=== PATIENT | female | born 1985 | race Caucasian/White ===

== ENCOUNTER 2024-06-09 16:44 | Emergency (ER) | payer MEDICAID, SELFPAY ==
[2024-06-09 16:51] VITALS: BP 120/85; PULSE 82; TEMP 36.6; O2SAT 98; BMI 29.3
--- OUTSIDE RECORDS SUMMARY | 2024-06-09 16:55 | XMS_ITS | CCD ---
Author Organization [facility] Care Team Providers Care Teachers' Assistant Name Role Phone Parisa Babcock Unavailable Unavailable ANN KULKARNI Unavailable Unavailable ANN KULKARNI Unavailable Unavailable Samy, Flaquito E Unavailable Unavailable GLO BABCOCK Unavailable Unavailable GLO BABCOCK Unavailable Unavailable Beni Penaloza V Unavailable Unavailable Samy Flaquito E Unavailable Unavailable Jose Hirsch Unavailable Unavaila Jose Sanders Unavailable Unavaila sanjuanita Pablo Flaquito E Unavailable Unavailable [employer] Unavailable Unavailable Samy, Flaquito E Unavailable Unavailable Samy, Flaquito E Unavailable Unavailable SHERI IVEY Unavailable Unavailable SIS TORRES Unavailable Unavailable Lisa Johns Unavailable Isabel Redmond Unavailable Brandon Wing Unavailable Fred Goldsmith Unavailable DEJAH Johns Primary Care Provider DEJAH Johns Attending Provider MD Pablo Phipps Attending Provider [phone] DO Janina Soria Attending Provider DO Nikhil Cristina Emergency Provider DEJAH Johns Primary Care Provider DO Janina Soria Attending Provider [phone] DO Nikhil Cristina Emergency Provider [phone] DEJAH Johns Attending Provider [phone] MD Brandon Wing Other Provider DEJAH Johns Primary Care Provider DEJAH Johns Attending Provider [phone] HUDSON LISA Primary Care Unavailable DIAB ., ERICA Admitting Unavailable DIAB ., ERICA Attending Unavailable DIAB ., ERICA Consulting Unavailable KARASIK, FADUMO Admitting Unavailable KARASIK, FADUMO Attending Unavailable KAPDANIEL LISA Primary Care Unavailable KARASIK, FADUMO Consulting Unavailable MAYA, DR KEITH Lackey Consulting Unavailable KARASIK, FADUMO Admitting Unavailable KARASIK, FADUMO Attending Unavailable NADEREDR LD Lackey Primary Care Unavailable KARASIK, FADUMO Consulting Unavailable MD Shahid Ritter Emergency Provider MD Marcel Boo Referring Provider Unavailable Primary Care Provider Unavailmorenita Boo II, Dr. Marcel Tejeda Attending Unavailable [facility] Attending Provider Edward Hernandez [facility]available [facility] Provider AMISHA Mejia Emergency Provider DO Nikhil Cristina Emergency Provider PROVIDER, UNKNOWN Admitting Unavailable PROVIDER, UNKNOWN Attending Unavailable CHANCE VERA Attending Unavailable PROVIDER, UNKNOWN Admitting Unavailable Andreas [facility] Primary Care Provider AMISHA Mejia Emergency Provider DO Nikhil Cristina Emergency Provider [phone] DO Bairon Duran Attending Provider [phone] Andreas [facility] Primary Care Provider DO Curt Novoa Emergency Provider [phone] Arpan, ONLINE EDUCATION MANAGER-IKE Benitez E Emergency Provider Unavailable Primary Care Provider Unavailmorenita Johns [facility] Primary Care Provider AMISHA Mejia Emergency Provider BAIRON DURAN Attending Unavailable LD RESENDEZ Referring Unavailable BAIRON DURAN Attending Unavailable BAIRON DURAN Attending Unavailable LD RESENDEZ Referring Unavailable BAIRON DURAN Attending Unavailable BAIRON DURAN Attending Unavailable DEJAH Johns [facility] Primary Care Provider MD Jennifer Art Emergency Provider DEJAH Johns [facility] Primary Care Provider Bullimore, ONLINE EDUCATION MANAGER-BC Eli E Emergency Provider [phone] NO FAMILY, PHYSICIAN Primary Care Provider Unava ilable Bullimore ONLINE EDUCATION MANAGER-BC, Eli E Emergency Provider [phone] NO FAMILY, PHYSICIAN Primary Care Provider Unava ilable Unavailable Primary Care Provider Unavailabl e NO FAMILY, PHYSICIAN Primary Care Provider Unava ilable Paola FREEMAN, Florencio Attending Provider [phone] NO FAMILY, PHYSICIAN Primary Care Unavailable Bullimore, Eli E Admitting Unavailable Bullimore, Eli E Attending Unavailable [facility] Primary Care Unavailable Verae, Carissa N Admitting Unavailable Safgeovannye, Carissa N Attending Unavailable [facility] Primary Care Unavailable Jennifer Art Admitting Unavailable Jennifer Art Attending Unavailable Nikhil Cristina Admitting Unavailable Nikhil Cristina Attending Unavailable [facility] Primary Care Unavailable Curt Novoa Attending Unavailable [facility] Primary Care Unavailable Curt Novoa Admitting Unavailable Bullimore, Eli E Admitting Unavailable Bullimore, Eli E Attending Unavailable [facility] Primary Care Unavailable NO FAMILY, PHYSICIAN Primary Care Unavailable Radatz Jr, Edward Admitting Unavailable Radatz Jr, Edward Attending Unavailable [facility]available Bairon Duran Admitting Unavailable Bairon Duran Attending Unavailable [facility]available Bairon Duran Admitting Unavailable Bairon Duran Attending Unavailable Sheri Ivey MD Primary Care Provider [phone] ALEM CUADRA Referring Unavailable ANH GELLER Attending Unavailable EMILEE ROCA Attending Unavailable RAFY GOLDBERG Referring Unavailable EMILEE ROCA Attending Unavailable EMILEE ROCA Referring Unavailable OSIEL, OSIEL E Attending Unavailable JOSEFA FALK Referring Unavailable OSIEL, OSIEL E Referring Unavailable ALEJANDRA CABRERA Attending Unavailable PAM, CASSANDRA ABRAMS Attending Unavailable WILMAN, ALEM Attending Unavailable WILMAN, ALEM Referring Unavailable PAM, CASSANDRA ABRAMS Referring Unavailable RAFY GOLDBERG Attending Unavailable WILMAN, ALEM Attending Unavailable WILMAN, ALEM Referring Unavailable JOSEFA FALK Attending Unavailable WILMAN, ALEM Referring Unavailable EMILEE ROCA Referring Unavailable TAMANNA BARRY Attending Unavailable RAFY GOLDBERG Referring Unavailable Allergies Allergy Classification Reported Allergen(s) Allergy Type Date of Onset Reaction(s) Facility Latex (2 sources) Latex Substance Allergy 08-31-19 [facility] nickel (2 sources) nickel Drug Allergy 08-31-19 17 [facility] Opioid Agonists (2 sources) oxyCODONE Drug Allergy 10-16-19 21 [facility] silk allergenic extract (2 sources) silk allergenic extract Drug Allergy 08-31-19 Other: See Comments [facility] Sulfonamides (antibiotic) (2 sources) sulfADIAZINE Drug Allergy 09-29-19 [facility] (1 source) YES - ALLERGIES EXIST; Translations: [YES - ALLERGIES EXIST] Propensity to adverse reactions (disorder) [facility] Repository (20 sources) Acetaminophen / oxyCODONE Drug Allergy 03-11-20 12 Unknown, Rash [employer] Other (20 sources) Sulfamethoxazole / Trimethoprim Drug Allergy 12-25-19 24 Unknown, Swelling [facility] Other (18 sources) sulfaSALAzine Drug Allergy Unknown [employer] Other (20 sources) wiley Propensity to adverse reactions Unknown [employer] Other (20 sources) silk tape and latex Propensity to adverse reactions Unknown [employer] Other (20 sources) Latex; Translations: [latex] Allergy to substance 08-31-19 [facility] (20 sources) nickel; Translations: [Nickel] Drug Allergy 08-31-19 17 Rash, [facility] (20 sources) oxyCODONE; Translations: [OXYCODONE] Drug Allergy 10-16-19 21 [facility] (20 sources) Silk adhesive tape Allergy to substance 05-11-19 [facility] (20 sources) Sulfonamides (Antibiotic) Allergy to substance 10-16-19 [facility] (6 sources) Sulfonamide Drug allergy Unknown [facility] Other (20 sources) Substance with sulfonamide structure and antibacterial mechanism of action (substance) Drug allergy 07-09-19 Unknown [facility] Other (3 sources) Acetaminophen / oxyCODONE; Translations: [PERCOCET] Drug Allergy 08-31-19 17 [facility] Repository (2 sources) Silk; Translations: [SILK] Drug allergy (disorder) 08-31-19 17 [facility] Repository (1 source) Sulfonamides (Antibiotic) Drug allergy (disorder) 08-31-19 17 [facility] Repository (20 sources) silk allergenic extract Drug Allergy 08-31-19 17 Other: See [facility] (10 sources) Adhesive Tape Drug allergy rash [facility] Other (1 source) Sulfonamides (Antibiotic); Translations: [SULFA ANTIBIOTICS] Propensity to adverse reactions to drug (disorder) [facility]09[facility]19 [facility] sources) Acetaminophen; Translations: [ACETAMINOPHEN] Drug Allergy 07-29-19 Hives, Itching [facility] (2 sources) Adhesive Tape Allergy to substance 07-29-19 [facility] (20 sources) sulfADIAZINE; Translations: [SULFADIAZINE] Drug Allergy 09-29-19 24 [facility] (20 sources) Adhesive agent; Translations: [ADHESIVE] Drug Allergy 03-11-20 12 [facility] (20 sources) Adhesive Tape; Translations: [ADHESIVE TAPE (ROSINS)] Allergy to substance 05-11-19 Hives, Itching [facility] (14 sources) levoFLOXacin; Translations: [LEVOFLOXACIN] Drug Allergy 04-05-20 24 [facility] Work Phone: (1 source) Acetaminophen / oxyCODONE; Translations: [OXYCODONE-ACETAMIN OPHEN] Drug Allergy 03-11-20 [facility] Repository (1 source) Sulfamethoxazole / Trimethoprim; Translations: [SULFAMETHOXAZOLE-T RIMETHOPRIM] Drug Allergy 12-25-19 [facility] Repository Medications Current Medications Medication Drug Class(es) Dates Sig (Normalized) Sig (Original) 0.5 ML semaglutide 0.5 MG/ML Auto-Injector [Wegovy] (2 sources) Start: 09-12-2021 inject 0.5 mL by subcutaneous injection every week Wegovy 0.25 MG/0.5ML 0.5 ml Subcutaneous Weekly for 30 days September, Active 12 hr acetaZOLAMIDE 500 mg extended release oral capsule (20 sources) Carbonic Anhydrase Inhibitor Start: 06-03-2024 End: 09-01-2024 take 1 capsule by mouth twice daily acetaZOLAMIDE SR (DIAMOX SEQUELS) 500 mg capsule Take 1 capsule by mouth two times a day. 60 capsule 2 06/03/2024 09/01/2024 Active Start: 04-05-2024 End: 06-03-2024 acetaZOLAMIDE (DIAMOX) 250 m g tablet Indications: IIH (idiopathic intracranial hypertension) 500 mg AM; 250 mg PM 90 tablet 5 04/05/2024 06/03/2024 Discontinued Start: 10-09-2023 End: 04-05-2024 take 1 tablet by mouth twice daily Acetazolamide 250 mg tablet Discontinued 250 MG PO Twice daily December 22, 2023 11:00pm January 29, 2024 7:29am Start: 02-12-2022 End: 07-20-2023 take 1 tablet by mouth once daily Acetazolamide 250 mg Tablet Discontinued 250 MG PO Daily February 11, 2022 11:00pm July 20, 2023 7:47am take 1 tablet by fiorella th twice daily acetaZOLAMIDE 250 MG 1 tab Orally twice daily Active [id number] 200 actuat albuterol 0.09 mg/actuat metered dose inhaler (20 sources) beta2-Adrenergic Agonist Start: 09-29-2023 End: 11-23-2023 take 2 puff(s) by mouth every four hours as needed Albuterol Sulfate (Ventolin Hfa) 90 mcg/actuation HFA aerosol inhaler Active 0 .ROUTE .COMPLEX 54 November 23, 2023 12:57pm INHALE 2 PUFFS BY MOUTH EVERY 4 HOURS NEEDED Start: 09-28-2023 End: 09-29-2023 take 2 puff(s) by inhalation every four hours as needed for cough Albuterol Sulfate (Ventolin Hfa) 90 mcg/actuation HFA aerosol inhaler Discontinued INHALATION September 27, 2023 11:00pm September 29, 2023 6:38am [employer] puffs as needed Inhalation every 4 hrs PRN shortness of breath, wheezing, or cough; Note: Source Status: Taking; Refills: 1; Provider: Andreas Greenwood Start: 04-14-2022 take 2 puff(s) by in halation every four hours as needed for cough Ventolin HFA 108 (90 Base) MCG/ACT 2 puffs as needed Inhalation every 4 hrs PRN shortness of breath, wheezing, or cough for 90 days Apr, Active Start: 03-24-2021 End: 02-12-2022 take 2.5 mg by inhalation every six hours as needed Albuterol Sulfate 2.5 mg /3 mL (0.083 %) solution for nebulization Discontinued 2.5 MG INHALATION Q6H as needed for bronchospasm March 24, 2021 12:00am February 12, 2022 9:52pm Start: 05-11-2019 End: 02-12-2022 take 1 mL by inhalation every six hours as needed Albuterol Sulfate 2.5 mg /3 mL (0.083 %) solution for nebulization Discontinued 3 ML INHALATION Q6H as needed for Shortness Of Breath May 11, 2019 12:00am February 12, 2022 9:52pm Start: 05-11-2019 End: 05-11-2019 Albuterol Sulfate 90 mcg/act uation HFA aerosol inhaler Discontinued May 11, 2019 12:00am May 11, 2019 10:10am Start: 11-20-2018 End: 02-12-2022 take 1 puff(s) by inhalation every four to six hours as needed Albuterol Sulfate 90 mcg/actuation Hfa Aerosol Inhaler Discontinued 2 PUFF INHALATION EVERY 4-6 HOURS as needed for Bronchospasm November 19, 2018 11:00pm February 12, 2022 9:52pm Start: 07-26-2018 take 1-2 puff(s) by inhalation every four to six hours as needed for cough Ventolin HFA 108 (90 Base) MCG/ACT 1 - 2 puffs as needed Inhalation every 4 - 6 hrs prn cough or wheezing for 10 days Jul, Not-Taking Start: 10-05-2017 End: 12-18-2017 Albuterol Sulfate 90 mcg/act uation HFA aerosol inhaler Discontinued 2 INH INHALATION every 6 to 8 hours as needed for shortness of breath or wheezing October 04, 2017 11:00pm December 18, 2017 9:05pm administer with spacer take 2 puff(s) by in halation every six hours as needed Proventil HFA 108 (90 Base) MCG/ACT 2 puffs as needed Inhalation every 6 hrs Active Amoxicillin / Clavulanate (3 sources) Penicillin-class Antibacterial Start: 02-13-2022 take 1 tablet by mouth every twelve hours Augmentin 875-125 MG 1 tablet Orally every 12 hrs for 10 days Feb, Active amphetamine aspartate 5 mg / amphetamine sulfate 5 mg / dextroamphetamine saccharate 5 mg / dextroamphetamine sulfate 5 mg oral tablet (11 sources) Central Nervous System Stimulant take 1 tablet by mouth once daily dextroamphetamin e-amphetamine (ADDERALL) 20 mg tablet Take 20 mg by mouth once daily. Active azithromycin 250 mg oral tablet (20 sources) Macrolide Antimicrobial Start: 03-19-2024 Azithromycin 250 mg tablet Active 0 PO .COMPLEX 6 March 19, 2024 12:00am For 250 mg dose pack: take 500 mg today (day 1), then 250 mg for 4 days (days 2-5) PO Start: 05-14-2023 take 2 tablets by [facility] once daily, then take 1 tablet by mouth once daily, then take 2 tablets by mouth once daily Azithromycin 250 MG 2 tablets on day 1, then 1 tablet on day 2 through 5 Orally Once a day for 5 May, Active Start: 03-24-2021 End: 02-12-2022 Azithromycin 250 mg tablet Discontinued 250 MG PO Daily March 24, 2021 12:00am February 12, 2022 9:52pm Take two tabs (500mg) on day 1 then take one tab daily for 4 days Start: 05-11-2019 End: 03-24-2021 take 2-5 tablets by mouth once daily Azithromycin (Zithromax Z-Charlie) 250 mg tablet Discontinued 0 PO .COMPLEX 6 May 11, 2019 12:00am March 24, 2021 11:37am take 500 mg today (day 1), then 250 mg for 4 days (days 2-5) benoxinate hydrochloride 4 mg/ml / fluorescein sodium 3 mg/ml ophthalmic solution (1 source) Diagnostic Dye Start: 12-25-2023 End: 12-25-2023 fluorescein-benoxinate 0.3-0.4 % 1 Drop (FLURESS) benzonatate 200 mg oral capsule (20 sources) Non-narcotic Antitussive Start: 03-19-2024 take 1 capsule by mouth three times daily as needed for cough Benzonatate 200 mg capsule Active 200 MG PO Three times daily as needed for cough 09 03March 19, 2024 12:00am Start: 05-14-2023 take 1 capsule by mo ut every eight hours Benzonatate 200 MG 1 capsule Orally Three times a day for May, Active Start: 03-24-2021 End: 02-12-2022 take 1 capsule by mouth three times daily as needed for cough Benzonatate 200 mg capsule Discontinued 200 MG PO Three times daily as needed for Cough March 24, 2021 12:00am February 12, 2022 9:52pm Start: 10-05-2017 End: 12-18-2017 take 2 capsules by mouth every six hours as needed for cough Benzonatate (Tessalon Perles) 100 mg capsule Discontinued 200 MG PO Q6H as needed for cough October 04, 2017 11:00pm December 18, 2017 9:05pm cetirizine hydrochloride 10 mg oral tablet (20 sources) Histamine-1 Receptor Antagonist Start: 02-12-2022 End: 11-16-2023 take 1 tablet by mouth once daily in the morning Cetirizine 10 mg tablet Active 10 MG PO Every morning 90 90 November 16, 2023 9:02am Cetirizine 10 mg cap Active Cetirizine HCl A ctive chlorzoxazone 500 mg oral tablet (7 sources) Muscle Relaxant Start: 06-03-2024 End: 06-08-2024 take 1 tablet by mouth four times daily chlorzoxazone (PARAFON FORTE DSC) 500 mg tablet Take 1 tablet by mouth four times daily for 5 days. 20 tablet 06/03/2024 06/08/2024 Active Start: 05-30-2024 End: 06-03-2024 take 1 tablet by mouth three times daily chlorzoxazone (PARAFON FORTE DSC) 500 mg tablet Take 1 tablet by mouth three times a day for 5 days. Do not take with Zanaflex 15 tablet 05/30/2024 06/03/2024 Discontinued cyclobenzaprine hydrochloride 10 mg oral tablet (10 sources) Muscle Relaxant Start: 02-08-2024 take 1 tablet by mouth three times daily as needed for muscle spasms Cyclobenzaprine 10 mg tablet Active 10 MG PO Three times daily as needed for muscle spasm February 07, 2024 11:00pm Start: 08-25-2023 End: 10-04-2023 take 1 tablet by mouth three times daily as needed for muscle spasms Cyclobenzaprine 10 mg tablet Discontinued 10 MG PO Three times daily as needed for muscle spasm August 24, 2023 11:00pm October 04, 2023 2:49pm 12 hr dextromethorphan hydrobromide 30 mg / guaiFENesin 600 mg extended release oral tablet (2 sources) Uncompetitive V-kwgxim-M-aspartate Receptor Antagonist, Sigma-1 Agonist Start: 11-19-2021 take 1 tablet by mouth every twelve hours Mucinex DM 30-600 MG 1 tablet as needed Orally every 12 hrs for 14 days Nov, Active estrogens, conjugated (long-term) 0.45 mg oral tablet (20 sources) Estrogen Start: 06-12-2022 PREMARIN 0.45 mg tablet 06/12/2022 Active Start: 02-12-2022 End: 07-20-2023 take 1 tablet by mouth once daily Conjugated Estrogens (Premarin) 0.625 mg tablet Discontinued 0.625 MG PO Daily February 11, 2022 11:00pm July 20, 2023 7:47am Premarin Active ibuprofen 600 mg oral tablet (20 sources) Nonsteroidal Anti-inflammatory Drug Start: 12-23-2023 take 1 tablet by mouth every six hours as needed for pain Ibuprofen 600 mg tablet Active 600 MG PO Q6H as needed for pain 27 09December 22, 2023 11:00pm Start: 06-26-2022 End: 08-25-2023 take 1 tablet by mouth three times daily Ibuprofen 800 mg tablet Discontinued 800 MG PO Three times daily August 24, 2023 11:00pm August 25, 2023 12:48pm iv contrast (will be provided with radiology test) (3 sources) Start: 06-03-2024 End: 06-04-2024 iv contrast (will be provided with radiology test) MRV Brain Inject, intravenously, once for 1 dose. No IV access, insert saline lock prior to the beginning of sedation, infusion, injection of imaging exam. Discontinue saline lock post exam. If Pt. has a central line or IVAD, may access for administration according to line specific nursing protocol. Once exam is complete flush line and de-access according to line specific nursing protocol in the MR contrast administration guidelines link. 1 Each 06/03/2024 06/04/2024 Active ketorolac tromethamine 10 mg oral tablet (10 sources) Nonsteroidal Anti-inflammatory Drug, Cyclooxygenase Inhibitor Start: 02-08-2024 take 1 tablet by mouth every six hours as needed for pain Ketorolac 10 mg tablet Active 10 MG PO Q6H as needed for pain February 07, 2024 11:00pm Start: 08-25-2023 End: 10-04-2023 take 1 tablet by mouth every six hours as needed for pain Ketorolac 10 mg tablet Discontinued 10 MG PO Q6H as needed for pain August 24, 2023 11:00pm October 04, 2023 2:48pm melatonin/thean/lemon/david/l av (SLEEP CALM ORAL) (5 sources) End: 10-09-2023 melatonin/thean/lemon/david/l av (SLEEP CALM ORAL) Take by mouth. THC oral gummies. 0 10/09/2023 Discontinued melatonin/thean/ lemon/david/lav (SLEEP CALM ORAL) Take by mouth. THC oral gummies. 0 Active Multivitamin Adult - (20 sources) Multivitamin Collin lt - Orally Active Multivitamin preparation (19 sources) Start: 07-02-2018 take 1 tablet by mouth once daily Multivitamin Active 1 TAB PO Daily July 02, 2018 12:00am Start: 07-02-2018 take 1 tablet by fiorella th once daily Multivitamin Active 1 TAB PO Daily July 02, 2018 1:00am Multivitamin Tablet (2 sources) Start: 07-02-2018 take 1 tablet by mouth once daily Multivitamin Tablet Active 1 TAB PO Daily July 02, 2018 12:00am mv,calcium,min/iron/foli c/vitK (MULTI FOR HER ORAL) (20 sources) mv,calcium,min/i charlene/fol ic/vitK (MULTI FOR HER ORAL) Active mv,calcium,min/i charlene/folic/vitK (MULTI FOR HER ORAL) naproxen 500 mg oral tablet (20 sources) Nonsteroidal Anti-inflammatory Drug Start: 05-20-2024 End: 08-18-2024 take 1 tablet by mouth every twelve hours as needed naproxen (NAPROSYN) 500 mg tablet Take 1 tablet by mouth two times a day as needed for pain. FOR PAIN. TAKE WITH FOOD. 60 tablet 2 05/20/2024 08/18/2024 Active Start: 07-02-2018 End: 05-11-2019 take 1 tablet by mouth twice daily as needed for pain Naproxen 500 mg Tablet Discontinued 500 MG PO Twice daily as needed for Pain July 02, 2018 12:00am May 11, 2019 10:09am Start: 10-05-2017 End: 12-18-2017 take 1 tablet by mouth twice daily as needed for pain Naproxen (Naprosyn) 500 mg tablet Discontinued 500 MG PO Twice daily as needed for pain October 04, 2017 11:00pm December 18, 2017 9:05pm administer with food or milk Start: 07-05-2017 End: 07-17-2017 take 1 tablet by mouth twice daily as needed for pain Naproxen 500 mg tablet Discontinued 500 MG PO Twice daily as needed for pain July 05, 2017 12:00am July 17, 2017 2:35pm administer with food or milk Nasonex 50 MCG/ACT (3 sources) Start: 05-14-2023 take 2 spray(s) nasal route once daily Nasonex 50 MCG/ACT 2 sprays in each nostril Nasally Once a day for 30 day(s) May, Active Ozempic (2 MG/DOSE) 8 MG/3ML (3 sources) Start: 11-13-2021 inject 2 mg by subcutaneous injection every week Ozempic (2 MG/DOSE) 8 MG/3ML 2 mg Subcutaneous weekly for 30 days Nov, Active perflutren lipid microspheres 1.3 mL in NaCl (PF) 0.9% 10 mL injection (DEFINITY) (8 sources) Start: 07-18-2022 End: 10-17-2023 perflutren lipid microspheres 1.3 mL in NaCl (PF) 0.9% 10 mL injection (DEFINITY) phenylephrine hydrochloride 25 mg/ml ophthalmic solution (1 source) alpha-1 Adrenergic Agonist Start: 12-25-2023 End: 12-25-2023 PHENYLephrine 2.5 % 1 Drop (AK-DILATE, ANTHONY-SYNEPHRINE) predniSONE 10 mg oral tablet (20 sources) Start: 03-19-2024 Prednisone 10 mg tablet Active 0 PO daily 28 12March 19, 2024 12:00am 4 tablets x2 days, then 3 tab x2 days, then 2 tab x2 days, then 1 tab x2 days orally daily; Start: 08-25-2023 End: 10-04-2023 take 1 tablet by mouth once daily at mealtime Prednisone 50 mg tablet Discontinued 50 MG PO Daily 09 12August 24, 2023 11:00pm October 04, 2023 2:48pm administer with food or milk Start: 05-14-2023 prednisone 10 mg 4 tablets x2 days, then 3 x2 days, 2 x2 days, 1 x2 days Orally as directed for 8 May, Active Start: 11-19-2021 take 1 tablet by fiorella th three times daily predniSONE 20 MG Take 1 tablet Orally 3 times a day for 6 days Nov, Active Start: 11-19-2021 predniSONE 10 MG (21) as directed Orally once a day for 6 days Nov, Active Start: 05-11-2019 End: 03-24-2021 take 2 tablets by mouth once daily Prednisone 20 mg tablet Discontinued 40 MG PO Daily May 11, 2019 10:09am March 24, 2021 11:37am Start: 05-11-2019 End: 03-24-2021 take 40 mg by mouth once daily Prednisone Discontinued 40 MG PO Daily May 11, 2019 11:09am March 24, 2021 12:37pm Start: 05-11-2019 End: 05-11-2019 Prednisone 20 mg tablet Discontinued TABLET May 11, 2019 12:00am May 11, 2019 10:10am Start: 11-20-2018 End: 05-11-2019 take 60 mg by mouth once daily Prednisone Discontinued 60 MG PO Daily November 20, 2018 12:00am May 11, 2019 11:10am Start: 07-26-2018 End: 05-11-2019 take 3 tablets by mouth once daily Prednisone 20 mg tablet Discontinued 60 MG PO Daily November 19, 2018 11:00pm May 11, 2019 10:10am Start: 10-05-2017 End: 10-10-2017 take 3 tablets by mouth once daily at mealtime Prednisone 20 mg tablet Discontinued 60 MG PO Daily 15 October 04, 2017 11:00pm October 08, 2017 11:00pm October 09, 2017 11:02pm administer with food or milk Start: 10-05-2017 End: 10-10-2017 take 60 mg by mouth once daily at mealtime Prednisone Discontinued 60 MG PO Daily 22 09October 05, 2017 12:00am October 10, 2017 12:02am administer with food or milk pregabalin 50 mg oral capsule (7 sources) Start: 03-19-2024 take 1 mg by mouth once daily Pregabalin 50 mg capsule Active MG PO Daily March 19, 2024 12:00am Start: 03-08-2024 End: 04-07-2024 take 1 capsule by mouth twice daily pregabalin (LYRICA) 50 mg capsule Indications: Polyarthralgia Take 1 capsule by mouth two times a day for 30 days. 60 capsule 03/08/2024 04/05/2024 Discontinued (Course of therapy completed) Start: 02-24-2024 End: 03-25-2024 take 1 capsule by mouth twice daily pregabalin (LYRICA) 25 mg capsule Indications: Polyarthralgia Take 1 capsule by mouth two times a day for 30 days. 60 capsule 02/24/2024 03/07/2024 Discontinued ProAir HFA 108 (90 Base) MCG/ACT (2 sources) Start: 04-08-2022 take 2 puff(s) by inhalation every four hours as needed for cough ProAir HFA 108 (90 Base) MCG/ACT 2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 Carissa Mejia on 10-04-2023 Color (U) Yellow Normal Yellow [facility] Comment on above: Order Comment: Name Collection Type:: Clean-Voided Midstream Performed By: #### U A #### [address] Complete Blood Count Auto Di ffon 10-04-2023 Mean Corpuscular HGB Conc 35.1 g/dL High 32.0-35.0 [facility] Comment on above: Performed By: #### L IPASE, ALP, BILTD, ILYA #### [address] Monocytes/100 WBC (Bld) 19.81 % Normal 0.00-20.00 [facility] Comment on above: Performed By: #### L IPASE, ALP, BILTD, ILYA #### [address] NRBC% 0.2 /100{WBC} Normal 0-0.5 [facility] Comment on above: Performed By: #### L IPASE, ALP, BILTD, ILYA #### [address] Comprehensive Metabolic Pane jose angel 10-04-2023 Albumin [Mass/Vol] 4.2 g/dL Normal 3.5-5.7 [facility] Comment on above: Performed By: #### L IPASE, ALP, BILTD, ILYA #### [address] Creatinine Clr Calc Pharmacy 83.18 Normal [facility] Comment on above: Performed By: #### L IPASE, ALP, BILTD, ILYA #### [address] GFR/1.73 sq M.predicted MDRD (S/P/Bld) [Vol rate/Area] mL/min/{1.73_m2} Normal [facility] Comment on above: Performed By: #### L IPASE, ALP, BILTD, ILYA #### [address] Creatinine [Mass/volume] in Serum or PlasmaOrdered By: Carissa Mejia on 10-04-2023 Creatinine [Mass/Vol] 0.93 mg/dL Normal 0.60-1.20 [facility] Comment on above: Performed By: #### L IPASE, ALP, BILTD, ILYA #### [facility] [address] Erythrocyte distribution wid th [Ratio] by Automated countOrdered By: Carissa Mejia on 10-04-2023 Erythrocyte distribution width (RBC) [Ratio] 13.1 % Normal 11.9-15.3 [facility] Comment on above: Performed By: #### L IPASE, ALP, BILTD, ILYA #### [address] Erythrocytes [#/volume] in B lood by Automated countOrdered By: Carissa Mejia on 10-04-2023 RBC (Bld) [#/Vol] 4.17 10*6/uL Normal 3.60-5.00 [facility] Comment on above: Performed By: #### L IPASE, ALP, BILTD, ILYA #### [address] Glucose [Mass/volume] in Ser um or PlasmaOrdered By: Carissa Mejia on 10-04-2023 Glucose [Mass/Vol] 89 mg/dL Normal 70-100 [facility] Comment on above: ADA recommended refe rence rangeRandom Glucose Reference Range is dependent on time and content of last meal. Glucose of more than 200 mg/dL in a nonstressed, ambulatory subject supports the diagnosis of Diabetes Mellitus. Result Comment: [place] om Glucose Reference Range is dependent on time and content of last meal. Glucose of more than 200 mg/dL in a nonstressed, ambulatory subject supports the diagnosis of Diabetes Mellitus. ADA recommended reference range Performed By: #### L IPASE, ALP, BILTD, ILYA #### [address] Hematocrit [Volume Fraction] of Blood by Automated countOrdered By: Carissa Mejia on 10-04-2023 Hematocrit (Bld) [Volume fraction] 37.8 % Normal 34.0-46.4 [facility] Comment on above: Performed By: #### L IPASE, ALP, BILTD, ILYA #### [address] Hemoglobin [Mass/volume] in BloodOrdered By: Carissa Mejia on 10-04-2023 Hemoglobin (Bld) [Mass/Vol] 13.3 g/dL Normal 11.8-15.4 [facility] Comment on above: Performed By: #### L IPASE, ALP, BILTD, ILYA #### [address] Ketones Auto test strip (U) [Mass/Vol]Ordered By: Carissa Mejia on 10-04-2023 Ketones (U) [Mass/Vol] Negative Negative [facility] Leukocytes [#/volume] correc nisha for nucleated erythrocytes in Blood by Automated counOrdered By: Carissa Mejia on 10-04-2023 WBC corrected for nucl RBC Auto (Bld) [#/Vol] 7.7 10*3/uL 3.8-11.6 [facility] Leukocytes [#/volume] in Blo od by Automated countOrdered By: Carissa Mejia on 10-04-2023 WBC (Bld) [#/Vol] 7.7 10*3/uL Normal 3.8-11.6 [facility] Comment on above: Performed By: #### L IPASE, ALP, BILTD, ILYA #### [address] Lipase [Enzymatic activity/v olume] in Serum or PlasmaOrdered By: Carissa Mejia on 10-04-2023 Lipase [Catalytic activity/Vol] 49.0 U/L Normal 11.0-82.0 [facility] Comment on above: Result Comment: PERF ORMED BY: [place] [address] PATHOLOGIST [employer] JUANY CLAUDIO M.D. Performed By: #### L IPASE, ALP, BILTD, ILYA #### [address] Lymphocytes [#/volume] in Bl ood by Automated countOrdered By: Carissa Mejia on 10-04-2023 Lymphocytes (Bld) [#/Vol] 3.9 10*3/uL Normal 1.00-4.8 [facility] Comment on above: Performed By: #### L IPASE, ALP, BILTD, ILYA #### [facility] [address] Lymphocytes/100 leukocytes i n Blood by Automated countOrdered By: Carissa Mejia on 10-04-2023 Lymphocytes/100 WBC (Bld) 48.5 % Normal . [facility] Comment on above: Performed By: #### L IPASE, ALP, BILTD, ILYA #### [address] MCH [Entitic mass] by Automa nisha countOrdered By: Carissa Mejia on 10-04-2023 MCH (RBC) [Entitic mass] 31.8 pg Normal 24.7-34.3 [facility] Comment on above: Performed By: #### L IPASE, ALP, BILTD, ILYA #### [address] MCHC Auto (RBC) [Mass/Vol]Or dered By: Carissa Mejia on 10-04-2023 MCHC (RBC) [Mass/Vol] 35.1 g/dL High 32.0-35.0 [facility] MCV [Entitic volume] by Auto mated countOrdered By: Carissa Mejia on 10-04-2023 MCV (RBC) [Entitic vol] 90.6 fL Normal 80-100 [facility] Comment on above: Performed By: #### L IPASE, ALP, BILTD, ILYA #### [facility] [address] [place] [address] Monocyte distribution width [Entitic volume] in Blood by AutomatedOrdered By: Carissa Mejia on 10-04-2023 Monocyte distribution width Auto (Bld) [Entitic vol] 19.81 % 0.00-20.00 [facility] Neutrophils [#/volume] in Bl ood by Automated countOrdered By: Carissa Mejia on 10-04-2023 Neutrophils (Bld) [#/Vol] 3.4 10*3/uL Normal 1.8-7.7 [facility] Comment on above: Performed By: #### L IPASE, ALP, BILTD, ILYA #### [facility] [address] Nitrite Test strip Ql (U)Ord ered By: Carissa Mejia on 10-04-2023 Nitrite Ql (U) Negative Negative [facility] No Panel InformationOrdered By: Carissa Mejia on 10-04-2023 Estimated GFR (CKD-EPI) > 60.0 mL/Min [facility] Creatinine Clearance (Chem 83.18 [facility] Nucleated erythrocytes [Pres ence] in Blood by Automated countOrdered By: Carissa Mejia on 10-04-2023 Nucleated RBC Auto Ql (Bld) 0.2 /100{WBC} 0-0.5 [facility] Platelet mean volume [Entiti c volume] in Blood by Automated countOrdered By: Carissa Mejia on 10-04-2023 Platelet mean volume (Bld) [Entitic vol] 8.6 fL Normal 6.3-10.7 [facility] Comment on above: Performed By: #### L IPASE, ALP, BILTD, ILYA #### [facility] [address] [place] [address] [place] Platelets [#/volume] in Bloo d by Automated countOrdered By: Carissa Mejia on 10-04-2023 Platelets (Bld) [#/Vol] 288 10*3/uL Normal 150-450 [facility] Comment on above: Performed By: #### L IPASE, ALP, BILTD, ILYA #### [facility] [address] [place] [address] [place] Potassium [Moles/volume] in Serum or PlasmaOrdered By: Carissa Mejia on 10-04-2023 Potassium [Moles/Vol] 3.8 mmol/L Normal 3.5-5.1 [facility] Comment on above: Performed By: #### L IPASE, ALP, BILTD, ILYA #### [address] Protein Auto test strip (U) [Mass/Vol]Ordered By: Carissa Mejia on 10-04-2023 Protein (U) [Mass/Vol] Negative Negative [facility] Protein [Mass/volume] in Ser um or PlasmaOrdered By: Carissa Mejia on 10-04-2023 Protein [Mass/Vol] 6.8 g/dL Normal 6.4-8.9 [facility] Comment on above: Performed By: #### L IPASE, ALP, BILTD, ILYA #### [address] Serum globulin measurement b y calculation (mass/volume)Ordered By: Carissa Mejia on 10-04-2023 Globulin (S) [Mass/Vol] 2.6 g/dL Normal [facility] Comment on above: Performed By: #### L IPASE, ALP, BILTD, ILYA #### [address] Serum or plasma albumin/glob ulin mass ratioOrdered By: Carissa Mejia on 10-04-2023 Albumin/Globulin [Mass ratio] 1.6 {ratio} [facility] Comment on above: Performed By: #### L IPASE, ALP, BILTD, ILYA #### [address] Serum or plasma anion gap de terminationOrdered By: Carissa Mejia on 10-04-2023 Anion gap [Moles/Vol] 10.7 mmol/L Normal 6.0-15.0 [facility] Comment on above: Performed By: #### L IPASE, ALP, BILTD, ILYA #### [address] Sodium [Moles/volume] in Ser um or PlasmaOrdered By: Carissa Mejia on 10-04-2023 Sodium [Moles/Vol] 139 mmol/L Normal 136-145 [facility] Comment on above: Performed By: #### L IPASE, ALP, BILTD, ILYA #### [address] Specific gravity Auto test s trip (U) [Rel density]Ordered By: Carissagris Mejia on 10-04-2023 Specific gravity (U) [Rel density] 1.010 1.001-1.030 [facility] Urea nitrogen [Mass/volume] in Serum or PlasmaOrdered By: Carissa Mejia on 10-04-2023 Urea nitrogen [Mass/Vol] 10 mg/dL Normal 12-02 [facility] Comment on above: Performed By: #### L IPASE, ALP, BILTD, ILYA #### [address] Urinalysison 10-04-2023 Appearance (U) Clear Normal Clear [facility] Comment on above: Order Comment: Name Collection Type:: Clean-Voided Midstream Performed By: #### U A #### [address] Bilirubin,Urine Negative Normal Negative [facility] Comment on above: Order Comment: Name Collection Type:: Clean-Voided Midstream Performed By: #### U A #### [address] Glucose Ql (U) Normal Normal Normal [facility] Comment on above: Order Comment: Name Collection Type:: Clean-Voided Midstream Performed By: #### U A #### [address] Ketones Ql (U) Negative Normal Negative [facility] Comment on above: Order Comment: Name Collection Type:: Clean-Voided Midstream Performed By: #### U A #### [address] Leukocyte esterase Test strip Ql (U) Negative Normal Negative [facility] Comment on above: Order Comment: Name Collection Type:: Clean-Voided Midstream Performed By: #### U A #### [address] Nitrite,Urine Negative Normal Negative [facility] Comment on above: Order Comment: Name Collection Type:: Clean-Voided Midstream Performed By: #### U A #### [address] Occult Blood,Urine Negative Normal Negative [facility] Comment on above: Order Comment: Name Collection Type:: Clean-Voided Midstream Result Comment: PERF ORMED BY: [place] [address] PATHOLOGIST FL[employer] JUANY CLAUDIO M.D. Performed By: #### U A #### [place] [address] [place] Protein,Urine Negative Normal Negative [facility] Comment on above: Order Comment: Name Collection Type:: Clean-Voided Midstream Performed By: #### U A #### [address] Specificy [place],Urine 1.010 Normal 1.001-1.030 [facility] Comment on above: Order Comment: Name Collection Type:: Clean-Voided Midstream Performed By: #### U A #### [address] Urobilinogen,Urine Normal Normal Normal [facility] Comment on above: Order Comment: Name Collection Type:: Clean-Voided Midstream Performed By: #### U A #### [address] Urine clarity by refractomet ry automatedOrdered By: Carissa Mejia on 10-04-2023 Clarity Refractometry automated (U) Clear Clear [facility] Urine glucose measurement by automated test strip (mass/volume)Ordered By: Carissa Mejia on 10-04-2023 Glucose Auto test strip (U) [Mass/Vol] Normal mg/dL Normal [facility] Urine hemoglobin detection b y automated test stripOrdered By: Carissa Mejia on 10-04-2023 Hemoglobin Auto test strip Ql (U) Negative Negative [facility] Urine leukocyte esterase det ection by automated test stripOrdered By: Carissa Mejia on 10-04-2023 Leukocyte esterase Auto test strip Ql (U) Negative Negative [facility] Urine pH measurement by auto mated test stripOrdered By: Carissa Mejia on 10-04-2023 pH (U) 7.0 [pH] Normal 5.0-9.0 [facility] Comment on above: Order Comment: Name Collection Type:: Clean-Voided Midstream Performed By: #### U A #### [address] Urobilinogen Auto test strip (U) [Mass/Vol]Ordered By: Carissa Mejia on 10-04-2023 Urobilinogen (U) [Mass/Vol] Normal mg/dL Normal [facility] XR hip RT min 2V(w/wo pelvis )*on 10-04-2023 XR hip RT min 2V(w/wo pelvis)* [facility] Main [place] [address] [place] [address] XRay Report Signed Patient: Karolina Nicole MR#: [id number] : 1985 Acct:[id number] Age/Sex: 38 / F ADM Date: 10/04/23 Loc: ER Room: Type: [facility] ER Attending Dr: Copies to: Carissa Mejia APRN Ordering Provider: Carissa Mejia APRN Date of Service: 10/04/23 XR/XR hip RT min 2V(w/wo pelvis)*: Abdominal Pain RIGHT HIP WITH AP PELVIS - 3 views COMPARISON: 06/14/[address] 10/04/2023 CLINICAL DATA: Low pain radiating to the right hip for the past 6 weeks. AP view of the pelvis as well as AP and frog-lateral views of the right hip were obtained. No fracture or dislocation is identified. The hip joint spaces are maintained. There is no significant arthritic disease. There is levoscoliotic curvature and degenerative change at the lower imaged lumbar spine. No soft tissue abnormalities are present. Contrast is present within the urinary bladder from CT performed today. XR/XR hip RT min 2V(w/wo pelvis)* IMPRESSION: NO ACUTE BONY FINDINGS. Impression dictated by: Zandra Barksdale M.D.10/04/2023 5:12 PM Dictation Location: [place] [address] Transcribed By: [facility] 10/04/23 171 Dictated By: Zandra Barksdale MD 10/04/231706 Signed By: 10/04/231711 Normal [facility] MOOK BY IFA SCREENon 09-29-19 Nuclear Ab pattern (S) [Interp] Nuclear fine speckled Normal [facility] Comment on above: Order Comment: Specasya styles Type: BLOOD SPECIMENOrdering Facility: [facility] Address: [address] [place] [address] Performed By: #### A NAIFS ####[facility] [id number] [place] [address] [place] Nuclear Ab Ql (S) Positive Abnormal Negative [facility] Comment on above: Order Comment: Shahzad styles Type: BLOOD SPECIMENOrdering Facility: [facility] Address: [address] [place] [address] Result Comment: Anti -nuclear antibody test is used as an aid in diagnosis of systemic autoimmune diseases. Where positive and clinically warranted, follow-up using disease-specific testing is recommended. Low positive titers are not uncommon with advanced age, certain chronic infections, and malignancies among others. Test methodology: Indirect fluorescence immunoassay (IFA) using HEp-2 cells. 1:80 Performed By: #### A NAIFS ####[facility] [id number] [place] [address] [place] BETA 2 GLYCOPROTEIN, IGGon 0 09-29-2023 Beta 2 glycoprotein 1 IgG IA Qn <9 Normal <20 [facility] Comment on above: Order Comment: Shahzad styles Type: BLOOD SPECIMEN [facility] Address: [address] [place] [address] Result Comment: <20 SGU Negative 20-80 SGU Low Positive >80 SGU High Positive These results were obtained with the Enevo QUANTA Lite B2 GPI IgG JV. B2 GPI IgG values obtained with different manufacturers' assay methods may not be used interchangeably. The magnitude of the reported IgG levels cannot be correlated to an endpoint titer. Performed By: #### L UPPL #### [facility] CLIA [id number] [address] [place] [address] [place] BETA 2 GLYCOPROTEIN, IGMon 0 09-29-2023 Beta 2 glycoprotein 1 IgM IA Qn <9 Normal <20 [facility] Comment on above: Order Comment: Speci jensen Type: BLOOD SPECIMEN [facility] Address: [address] [place] [address] Result Comment: <20 SMU Negative 20-80 [facility]U Low Positive >80 [facility]U High positive These results were obtained with the Enevo QUANTA Lite B2 GPI IgM JV. B2 GPI IgM values obtained with different manufacturers' assay methods may not be used interchangeably. The magnitude of the reported IgM levels cannot be correlated to an endpoint titer. Performed By: #### L UPPL #### [facility] CLIA [id number] [address] [place] [address] [place] C-REACTIVE PROTEINon 024 CRP [Mass/Vol] mg/dL NINF - 0.9 mg/dL [facility] C3 COMPLEMENTon 09-29-2023 Complement C3 [Mass/Vol] 137 mg/dL 86 - 166 mg/dL [facility] C3 SerPl-mCncon 09-29-2023 Complement C3 [Mass/Vol] 137 mg/dL Normal 86-166 [facility] Comment on above: Order Comment: Shahzad styles Type: BLOOD SPECIMENOrdering Facility: [facility] Address: [address] [place] [address] Performed By: #### 1 988-5, 2885-2, 4485-9 ####[facility] LABCLIA [id number] [place] [address] [place] C4 COMPLEMENTon 09-29-2023 Complement C4 [Mass/Vol] 23 mg/dL 13 - 46 mg/dL [facility] C4 SerPl-mCncon 09-29-2023 Complement C4 [Mass/Vol] 23 mg/dL Normal 13-46 [facility] Comment on above: Order Comment: Speci men Type: BLOOD SPECIMENOrdering Facility: [facility] Address: [address] [place] [address] Performed By: #### 4 498-2, 55896-5, 06982-6, 2157-6 ####[facility] LABCLIA [id number] [address] [place] CARDIOLIPIN IGG ABSon 2023 Cardiolipin IgG IA Qn (S) <9.0 Normal <15.0 [facility] Comment on above: Order Comment: Speci men Type: BLOOD SPECIMEN [facility] Address: [address] [place] [address] Result Comment: <15 GPL Negative 15-20 GPL Indeterminate >20 GPL Positive The following results were obtained with the [employer] QUANTA Lite FILIPPO IgG III JV. Cardiolipin IgG values obtained with the different manufacturers' assay methods may not be used interchangeably. The magnitude of the reported IgG levels cannot be correlated to an endpoint titer. Performed By: #### L UPPL #### [facility] CLIA [id number] [address] [place] [address] [place] CARDIOLIPIN IGM ABSon 2023 Cardiolipin IgM IA Qn (S) <9.0 Normal <12.5 [facility] Comment on above: Order Comment: Speci men Type: BLOOD SPECIMENOrdering Facility: [facility] Address: [address] [place] [address] Result Comment: <12. 5 MPL Negative 12.5-20 MPL Indeterminate >20 MPL Positive The following results were obtained with the [employer] QUANTA Lite FILIPPO IgM III JV. Cardiolipin IgM values obtained with the different manufacturers' assay methods may not be used interchangeably. The magnitude of the reported IgM levels cannot be correlated to an endpoint titer. ??? Performed By: #### C ARDIM ####[facility] LABCLIA [id number] [place] [address] [place] CBC W Auto Differential pane l (Bld)on 09-29-2023 Basophils (Bld) [#/Vol] 0.03 10*3/uL [facility] Basophils/100 WBC (Bld) 0.4 % [facility] Differential cell count method Nom (Bld) Auto [facility] Eosinophils (Bld) [#/Vol] 0.18 10*3/uL [facility] Eosinophils/100 WBC (Bld) 2.4 % [facility] Erythrocyte distribution width (RBC) [Ratio] 12.5 % 11.5 - 15.0 % [facility] Hematocrit (Bld) [Volume fraction] 38.4 % 36.0 - 46.0 % [facility] Hemoglobin (Bld) [Mass/Vol] 13.4 g/dL 11.5 - 15.5 g/dL [facility] Immature granulocytes (Bld) [#/Vol] [facility] Immature granulocytes/100 WBC (Bld) 0.1 % [facility] Lymphocytes (Bld) [#/Vol] 3.08 10*3/uL [facility] Lymphocytes/100 WBC (Bld) 41.5 % [facility] MCH (RBC) [Entitic mass] 31.2 pg 26.0 - 34.0 pg [facility] MCHC (RBC) [Mass/Vol] 34.9 g/dL 30.5 - 36.0 g/dL [facility] MCV (RBC) [Entitic vol] 89.5 fL 80.0 - 100.0 fL [facility] Monocytes (Bld) [#/Vol] 0.39 10*3/uL [facility] Monocytes/100 WBC (Bld) 5.2 % [facility] Neutrophils (Bld) [#/Vol] 3.74 10*3/uL [facility] Neutrophils/100 WBC (Bld) 50.4 % [facility] Nucleated RBC (Bld) [#/Vol] [facility] Nucleated RBC/100 WBC (Bld) [Ratio] 0.0 % /100 WBC [facility] Platelet mean volume (Bld) [Entitic vol] 9.9 fL 9.0 - 12.7 fL [facility] Platelets (Bld) [#/Vol] 316 10*3/uL [facility] RBC (Bld) [#/Vol] 4.29 10*6/uL 3.90 - 5.2 0 m/uL [facility] WBC (Bld) [#/Vol] 7.43 10*3/uL [facility] Basophils (Bld) [#/Vol] 0.03 10*3/uL Normal <0.11 [facility] Comment on above: Order Comment: Speci men Type: BLOOD SPECIMENOrdering Facility: [facility] Address: [address] [place] [address] Performed By: #### 4 537-7, 11356-3 ####[facility] LABCLIA [id number] [place] [address] [place] Basophils/100 WBC (Bld) 0.4 % Normal [facility] Comment on above: Order Comment: Speci men Type: BLOOD SPECIMENOrdering Facility: [facility] Address: [address] [place] [address] Performed By: #### 4 537-7, 67841-0 ####[facility] LABCLIA [id number] [place] [address] [place] Differential cell count method Nom (Bld) Auto Normal [facility] Comment on above: Order Comment: Speci men Type: BLOOD SPECIMENOrdering Facility: [facility] Address: [address] [place] [address] Performed By: #### 4 537-7, 02289-5 ####[facility] LABCLIA [id number] [place] [address] [place] Eosinophils (Bld) [#/Vol] 0.18 10*3/uL Normal <0.46 [facility] Comment on above: Order Comment: Speci men Type: BLOOD SPECIMENOrdering Facility: [facility] Address: [address] [place] [address] Performed By: #### 4 537-7, 61560-5 ####[facility] LABCLIA [id number] [place] [address] [place] Eosinophils/100 WBC (Bld) 2.4 % Normal [facility] Comment on above: Order Comment: Speci men Type: BLOOD SPECIMENOrdering Facility: [facility] Address: [address] [place] [address] Performed By: #### 4 537-7, 10629-9 ####[facility] LABCLIA [id number] [place] [address] [place] Erythrocyte distribution width (RBC) [Ratio] 12.5 % Normal 11.5-15.0 [facility] Comment on above: Order Comment: Speci men Type: BLOOD SPECIMENOrdering Facility: [facility] Address: [address] [place] [address] Performed By: #### 4 537-7, 60340-0 ####[facility] LABCLIA [id number] [place] [address] [place] Hematocrit (Bld) [Volume fraction] 38.4 % Normal 36.0-46.0 [facility] Comment on above: Order Comment: Speci men Type: BLOOD SPECIMENOrdering Facility: [facility] Address: [address] [place] [address] Performed By: #### 4 537-7, 42943-6 ####[facility] LABCLIA [id number] [place] [address] [place] Hemoglobin (Bld) [Mass/Vol] 13.4 g/dL Normal 11.5-15.5 [facility] Comment on above: Order Comment: Speci men Type: BLOOD SPECIMENOrdering Facility: [facility] Address: [address] [place] [address] Performed By: #### 4 537-7, 82743-8 ####[facility] LABCLIA [id number] [place] [address] [place] Immature granulocytes (Bld) [#/Vol] 10*3/uL Normal <0.10 [facility] Comment on above: Order Comment: Speci men Type: BLOOD SPECIMENOrdering Facility: [facility] Address: [address] [place] [address] Performed By: #### 4 537-7, 77594-4 ####[facility] LABCLIA [id number] [place] [address] [place] Immature granulocytes/100 WBC (Bld) 0.1 % Normal [facility] Comment on above: Order Comment: Speci men Type: BLOOD SPECIMENOrdering Facility: [facility] Address: [address] [place] [address] Performed By: #### 4 537-7, 76122-9 ####[facility] LABIA [id number] [place] [address] [place] Lymphocytes (Bld) [#/Vol] 3.08 10*3/uL Normal 1.00-4.00 [facility] Comment on above: Order Comment: Speci men Type: BLOOD SPECIMENOrdering Facility: [facility] Address: [address] [place] [address] Performed By: #### 4 537-7, 47218-9 ####[facility] LABIA [id number] [place] [address] [place] Lymphocytes/100 WBC (Bld) 41.5 % Normal [facility] Comment on above: Order Comment: Speci men Type: BLOOD SPECIMENOrdering Facility: [facility] Address: [address] [place] [address] Performed By: #### 4 537-7, 54808-4 ####[facility] LABIA [id number] [place] [address] [place] MCH (RBC) [Entitic mass] 31.2 pg Normal 26.0-34.0 [facility] Comment on above: Order Comment: Speci men Type: BLOOD SPECIMENOrdering Facility: [facility] Address: [address] [place] [address] Performed By: #### 4 537-7, 04664-9 ####[facility] LABCLIA [id number] [place] [address] [place] MCHC (RBC) [Mass/Vol] 34.9 g/dL Normal 30.5-36.0 [facility] Comment on above: Order Comment: Speci men Type: BLOOD SPECIMENOrdering Facility: [facility] Address: [address] [place] [address] Performed By: #### 4 537-7, 47162-4 ####[facility] LABIA [id number] [place] [address] [place] MCV (RBC) [Entitic vol] 89.5 fL Normal 80.0-100.0 [facility] Comment on above: Order Comment: Speci men Type: BLOOD SPECIMENOrdering Facility: [facility] Address: [address] [place] [address] Performed By: #### 4 537-7, 14666-9 ####[facility] LABIA [id number] [place] [address] [place] Monocytes (Bld) [#/Vol] 0.39 10*3/uL Normal <0.87 [facility] Comment on above: Order Comment: Speci men Type: BLOOD SPECIMENOrdering Facility: [facility] Address: [address] [place] [address] Performed By: #### 4 537-7, 26461-5 ####[facility] LABIA [id number] [place] [address] [place] Monocytes/100 WBC (Bld) 5.2 % Normal [facility] Comment on above: Order Comment: Speci men Type: BLOOD SPECIMENOrdering Facility: [facility] Address: [address] [place] [address] Performed By: #### 4 537-7, 89514-5 ####[facility] LABIA [id number] [place] [address] [place] Neutrophils (Bld) [#/Vol] 3.74 10*3/uL Normal 1.45-7.50 [facility] Comment on above: Order Comment: Speci men Type: BLOOD SPECIMENOrdering Facility: [facility] Address: [address] [place] [address] Performed By: #### 4 537-7, 60198-5 ####[facility] LABCLIA [id number] [place] [address] [place] Neutrophils/100 WBC (Bld) 50.4 % Normal [facility] Comment on above: Order Comment: Speci men Type: BLOOD SPECIMENOrdering Facility: [facility] Address: [address] [place] [address] Performed By: #### 4 537-7, 41884-5 ####[facility] LABCLIA [id number] [place] [address] [place] Nucleated RBC (Bld) [#/Vol] 10*3/uL Normal <0.01 [facility] Comment on above: Order Comment: Speci men Type: BLOOD SPECIMENOrdering Facility: [facility] Address: [address] [place] [address] Performed By: #### 4 537-7, 98930-9 ####[facility] LABCLIA [id number] [place] [address] [place] Nucleated RBC/100 WBC (Bld) [Ratio] 0.0 /100 WBC Normal [facility] Comment on above: Order Comment: Speci men Type: BLOOD SPECIMENOrdering Facility: [facility] Address: [address] [place] [address] Performed By: #### 4 537-7, 56337-4 ####[facility] LABCLIA [id number] [place] [address] [place] Platelet mean volume (Bld) [Entitic vol] 9.9 fL Normal 9.0-12.7 [facility] Comment on above: Order Comment: Speci men Type: BLOOD SPECIMENOrdering Facility: [facility] Address: [address] [place] [address] Performed By: #### 4 537-7, 79723-1 ####[facility] LABCLIA [id number] [place] [address] [place] Platelets (Bld) [#/Vol] 316 10*3/uL Normal 150-400 [facility] Comment on above: Order Comment: Speci men Type: BLOOD SPECIMENOrdering Facility: [facility] Address: [address] [place] [address] Performed By: #### 4 537-7, 96534-3 ####[facility] LABCLIA [id number] [place] [address] [place] RBC (Bld) [#/Vol] 4.29 10*6/uL Normal 3.90-5.20 [facility] Comment on above: Order Comment: Speci men Type: BLOOD SPECIMENOrdering Facility: [facility] Address: [address] [place] [address] Performed By: #### 4 537-7, 75986-3 ####[facility] LABIA [id number] [place] [address] [place] WBC (Bld) [#/Vol] 7.43 10*3/uL Normal 3.70-11.00 [facility] Comment on above: Order Comment: Speci men Type: BLOOD SPECIMENOrdering Facility: [facility] Address: [address] [place] [address] Performed By: #### 4 537-7, 19736-4 ####[facility] LABCLIA [id number] [place] [address] [place] CK SerPl-cCncon 09-29-2023 CK [Catalytic activity/Vol] 116 U/L Normal 42-196 [facility] Comment on above: Order Comment: Speci men Type: BLOOD SPECIMENOrdering Facility: [facility] Address: [address] [place] [address] Performed By: #### 4 498-2, 76826-7, 38719-7, 2157-6 ####[facility] LABCLIA [id number] [id number] [address] [place] CNOVon 09-29-2023 CNOV Office Visit (JANA ) ----- KAROLINA NICOLE ([id number]) 1985 F Date Time Provider Department 09/29/23 11:00 AM ALEM CUADRA During your visit today, we recorded the following information about you: Pulse Blood pressure Weight 82/minute 121/77 80.9 kg Alem Cuadra MD 09/29/2023 9:52 PM Signed [facility] Date of Service: 09/29/2023 Patient: Karolina Nicole Medical Record: [id number] Primary Care Physician: No primary care provider on file. Referring Provider: SELF Last Rheumatology visit: None at [facility] Chief complaint: New Patient (Joint swelling, couple years. Lost eye vision in 2021, came back though. Throat swelling and blisters in her mouth. Body weakness. Pt said since apr she was sick 4 times. Had covid, strep, some stomach bug. Prednisone is the only thing that ever works for her. Pt was at ER for neck stifffness. Pt has hand swelling sometimes. Had hard time grabbing things. Pt had blood work done, CRP and Sed rate was high. Pt's mom has RA and fibromyalgia. Grandma had autoimmune. Liver was enlarged. Patient does not know) Self Consultation requested for an opinion regarding joint pain, swelling, fever. 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 Lost eye vision in 2021, came back though. Throat swelling and blisters in her mouth. Body weakness. Pt said since apr she was sick 4 times. Had covid, strep, some stomach bug. Prednisone is the only thing that ever works for her. Pt was at ER for neck stifffness. Pt has hand swelling sometimes. Had hard time grabbing things. Pt had blood work done, CRP and Sed rate was high. Pt's mom has RA and fibromyalgia. Grandma had autoimmune. Liver was enlarged. Patient does not know). Karolina is RF negative - 9 (09/29/2023). HISTORY OF PRESENT ILLNESS Patient reports multiple joint pain including bilateral hips, knees, hands, neck, low back for many years, did PT, told to have degenerative arthritis and chronic pain. Physical therapy does not help with the pain She also reports that her skin is tender to touch, even massage hurts Pain is worse in am and worse with activities She reports mild swelling in her whole hands which is constant with intermittent worsening of swelling along with whole body swelling and whole body pain on and off, almost once every 6 months. 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 She reports that optic neuritis was ruled out, denies any history of uveitis or iritis She had MRI, LP, ruled out MS, Diamox has been recommended for intracranial hypertension She reports being sick 4 times since apr 2023- had coivd, strep, stomach flu Mid August 2023-she had whole body pain associated with fever, had Blisters in the mouth, she went to ER, had infectious workup done including blood culture which was negative, she was discharged home Later she also started having neck stiffness, she went back to ER, had lumbar puncture and meningitis was ruled out. She was given prednisone for 5 days that helped with her whole body swelling but not with the pain. 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 Previous workups reviewed in patient's phone 08/2023 Sed rate 30 CRP 7.6 CSF cell count 2, protein 44 CT C spine- mild degenerative changes CXR- unremarkable XR bilateral hands 11/2022- unremarkable CT facial bone 06/2023- 1. No acute facial fracture. 2. Mild paranasal sinus disease with small left mastoid effusion. Patient-Entered Data PAIN EVALUATION 09/27/20232046 Pain Level: 6 Pain Location: Other: See Comment Description: Aching;Spasm;Stiffness;Ti ngling Duration Amount of Time: 7 Duration Units: Days Frequency: Continuous Intervention/Comfort measure: Reposition;Positioning Comments: I normally have chronic pain it hurts to be rubbed or massaged. When i have flate ups of whatever is hoing on with me my whole body hurts PROMIS Assessments 09/27/2023 PROMIS Assessments Physical Health Percentile 10 Mental Health Percentile 34 Pain Score 3 Pain Interference Percentile 21 Fatigue Percenti (more content not included)... Normal [facility] CREATINE KINASE/CKon 024 CK [Catalytic activity/Vol] 116 U/L 42 - 196 U/L [facility] CRP SerPl-mCncon 09-29-2023 CRP [Mass/Vol] mg/L Normal <0.9 [facility] Comment on above: Order Comment: Speci men Type: BLOOD SPECIMENOrdering Facility: [facility] Address: [address] [place] [address] Performed By: #### 1 988-5, 2885-2, 4485-9 ####[facility] LABCLIA [id number] [facility] [id number] [address] [place] Cardiolipin IgA Ser IA-aCnco n 09-29-2023 Cardiolipin IgA IA Qn (S) <9.0 Normal <12.0 [facility] Comment on above: Order Comment: Speci men Type: BLOOD SPECIMEN [facility] Address: [address], [place] [address] Result Comment: <12 APL Negative 12-20 APL Indeterminate >20 APL Positive The following results were obtained with the [employer]chengwuyouva QUANTA Lite FILIPPO IgA III JV. Cardiolipin IgA values obtained with the different manufacturers' assay methods may not be used interchangeably. The magnitude of the reported IgA levels cannot be correlated to an endpoint titer. Performed By: #### L UPPL #### [facility] CLIA [id number] [address] [place] [address] [place] Centromere Ab IF Ql (S)on Centromere Ab Qn (S) <0.2 Normal <1.0 [facility] Comment on above: Order Comment: Speci men Type: BLOOD SPECIMENOrdering Facility: [facility] Address: [address] [place] [address] Result Comment: Anti -centromere antibody is used as in aid in diagnosis of systemic sclerosis. Clinical correlation is required. Test Methodology: Multiplex flow immunoassay. Performed By: #### 5 1775-5, 98326-8, 14772-1, 93921-2, 33338-2, 52998-2, 21879-6, 24252-0 ####[facility] LABCLIA [id number] [address] [place] CENTROMERE AB QUAL Negative Normal Negative [facility] Comment on above: Order Comment: Tapani jensen Type: BLOOD SPECIMENOrdering Facility: [facility] Address: [address] [place] [address] Performed By: #### 5 1775-5, 56411-6, 68736-0, 48851-2, 98433-9, 79426-8, 48452-8, 25913-5 ####[facility] LABCLIA [id number] [place] [address] [place] Chromatin Ab Qnon 09-29-2023 CHROMATIN AB QUAL Negative Normal Negative [facility] Comment on above: Order Comment: Speci men Type: BLOOD SPECIMENOrdering Facility: [facility] Address: [address] [place] [address] Performed By: #### 5 1775-5, 08992-7, 61423-1, 96409-9, 40260-2, 37214-5, 77832-6, 29898-5 ####[facility] LABCLIA [id number] [place] [address] [place] Chromatin Ab SerPl-aCncon Chromatin Ab Qn <0.2 Normal <1.0 [facility] Comment on above: Order Comment: Speci men Type: BLOOD SPECIMENOrdering Facility: [facility] Address: [address] [place] [address] Result Comment: Test Methodology: Multiplex flow immunoassay. Performed By: #### 5 1775-5, 93598-4, 91646-1, 95850-5, 06643-9, 40767-3, 35522-0, 10591-2 ####[facility] LABCLIA [id number] [place] [address] [place] Comprehensive metabolic 2000 panelon 09-29-2023 Albumin [Mass/Vol] 4.4 g/dL 3.9 - 4.9 g/dL [facility] ALP [Catalytic activity/Vol] 65 U/L 34 - 123 U/L [facility] ALT [Catalytic activity/Vol] 22 U/L 7 - 38 U/L [facility] Anion gap [Moles/Vol] 12 mmol/L 9 - 18 mmol/L [facility] AST [Catalytic activity/Vol] 31 U/L 13 - 35 U/L [facility] Bilirubin [Mass/Vol] 0.4 mg/dL 0.2 - 1 .3 mg/dL [facility] Calcium [Mass/Vol] 9.6 mg/dL 8.5 - 10. 2 mg/dL [facility] Chloride [Moles/Vol] 104 mmol/L 97 - 10 5 mmol/L [facility] CO2 [Moles/Vol] 24 mmol/L 22 - 30 mmol/L [facility] Creatinine [Mass/Vol] 0.91 mg/dL 0.58 - 0.96 mg/dL [facility] GFR/1.73 sq M.predicted among non-blacks MDRD (S/P/Bld) [Vol rate/Area] 83 mL/min/{1.73_m2} - PINF [facility] Comment on above: Estimated Glomerular Filtration Rate (eGFR) is calculated using the 2020 CKD-EPI creatinine equation. This equation utilizes serum creatinine, sex, and age as parameters. The creatinine assay has traceable calibration to isotope dilution-mass spectrometry. Refer to KDIGO guidelines for clinical interpretation. In patients with unstable renal function, e.g. those with acute kidney injury, the eGFR may not accurately reflect actual GFR. Glucose [Mass/Vol] 94 mg/dL 74 - 99 mg/dL [facility] Comment on above: The [place] Diab[employer] Association (ADA) provides guidance for cutoff values for fasting glucose and random glucose. The ADA defines fasting as no caloric intake for at least 8 hours. Fasting plasma glucose results between 100 to 125 mg/dL indicate increased risk for diabetes (prediabetes). Fasting plasma glucose results greater than or equal to 126 mg/dL meet the criteria for diagnosis of diabetes. In the absence of unequivocal hyperglycemia, results should be confirmed by repeat testing. In a patient with classic symptoms of hyperglycemia or hyperglycemic crisis, random plasma glucose results greater than or equal to 200 mg/dL meet the criteria for diagnosis of diabetes. Reference: Standards of Medical Care in Diabetes 2016, [place] [employer]. Diabetes Care. 2016.39(Suppl 1). Potassium [Moles/Vol] 4.0 mmol/L 3.7 - 5.1 mmol/L [facility] Protein [Mass/Vol] 6.5 g/dL 6.3 - 8.0 g/dL [facility] Sodium [Moles/Vol] 140 mmol/L 136 - 144 mmol/L [facility] [facility] Urea nitrogen [Mass/Vol] 12 mg/dL 7 - 21 mg/dL [facility] Albumin [Mass/Vol] 4.4 g/dL Normal 3.9-4.9 [facility] Comment on above: Order Comment: Speci men Type: BLOOD SPECIMENOrdering Facility: [facility] Address: [address] [place] [address] [place] [address] Performed By: #### 4 498-2, 65673-2, 72842-1, 2157-6 ####[facility] LABCLIA [id number] [id number], [place] [address] [place] ALP [Catalytic activity/Vol] 65 U/L Normal 34-123 [facility] Comment on above: Order Comment: Speci men Type: BLOOD SPECIMENOrdering Facility: [facility] Address: [address] [place] [address] Performed By: #### 4 498-2, 67474-0, 82679-2, 2156-6 ####[facility] LABCLIA [id number] [place] [address] [place] ALT [Catalytic activity/Vol] 22 U/L Normal 7-38 [facility] Comment on above: Order Comment: Speci men Type: BLOOD SPECIMENOrdering Facility: [facility] Address: [address] [place] [address] Performed By: #### 4 498-2, 93685-5, 23116-7, 2156-10 ####[facility] LABCLIA [id number] [place] [address] [place] Anion gap [Moles/Vol] 12 mmol/L Normal 9-18 [facility] Comment on above: Order Comment: Speci men Type: BLOOD SPECIMENOrdering Facility: [facility] Address: [address] [place] [address] Performed By: #### 4 498-2, 53324-9, 51236-6, 2156-10 ####[facility] LABCLIA [id number] [place] [address] [place] AST [Catalytic activity/Vol] 31 U/L Normal 13-35 [facility] Comment on above: Order Comment: Speci men Type: BLOOD SPECIMENOrdering Facility: [facility] Address: [address] [place] [address] Performed By: #### 4 498-2, 73297-5, 50972-5, 2156-10 ####[facility] LABCLIA [id number] [place] [id number] [place] Bilirubin [Mass/Vol] 0.4 mg/dL Normal 0.2-1.3 [facility] Comment on above: Order Comment: Speci men Type: BLOOD SPECIMENOrdering Facility: [facility] Address: [address] [place] [address] Performed By: #### 4 498-2, 00199-1, 75333-3, 7-6 ####[facility] LABCLIA [id number] [place] [address] [place] Calcium [Mass/Vol] 9.6 mg/dL Normal 8.5-10.2 [facility] Comment on above: Order Comment: Speci men Type: BLOOD SPECIMENOrdering Facility: [facility] Address: [address] [place] [address] Performed By: #### 4 498-2, 12051-5, 12257-8, 6 ####[facility] LABCLIA [id number] [place] [address] [place] Chloride [Moles/Vol] 104 mmol/L Normal 97-105 [facility] Comment on above: Order Comment: Speci men Type: BLOOD SPECIMENOrdering Facility: [facility] Address: [address] [place] [address] Performed By: #### 4 498-2, 37907-2, 21925-5, 6 ####[facility] LABCLIA [id number] [place] [address] [place] CO2 [Moles/Vol] 24 mmol/L Normal 22-30 [facility] Comment on above: Order Comment: Speci men Type: BLOOD SPECIMENOrdering Facility: [facility] Address: [address] [place] [address] Performed By: #### 4 498-2, 34478-8, 24961-8, 2156-6 ####[facility] LABCLIA [id number] [facility] [address] [place] Creatinine [Mass/Vol] 0.91 mg/dL Normal 0.58-0.96 [facility] Comment on above: Order Comment: Shahzad styles Type: BLOOD SPECIMENOrdering Facility: [facility] Address: [address] [place] [address] Performed By: #### 4 498-2, 01596-8, 13801-4, 2156-6 ####[facility] LABCLIA [id number] [place] [address] [place] Creatinine and Glomerular filtration rate.predicted panel (S/P/Bld) 83 mL/min/1.73m??? Normal >=60 [facility] Comment on above: Order Comment: Shahzad styles Type: BLOOD SPECIMENOrdering Facility: [facility] Address: [address] [place] [address] Result Comment: Pam mated Glomerular Filtration Rate (eGFR) is calculated using the 2020 CKD-EPI creatinine equation. This equation utilizes serum creatinine, sex, and age as parameters. The creatinine assay has traceable calibration to isotope dilution-mass spectrometry. Refer to KDIGO guidelines for clinical interpretation. In patients with unstable renal function, e.g. those with acute kidney injury, the eGFR may not accurately reflect actual GFR. Performed By: #### 4 498-2, 59318-8, 29633-3, 2156-10 ####[facility] LABCLIA [id number] [place] [address] [place] Glucose [Mass/Vol] 94 mg/dL Normal 74-99 [facility] Comment on above: Order Comment: Shahzad styles Type: BLOOD SPECIMENOrdering Facility: [facility] Address: [address] [place] [address] Result Comment: The [place] Diabetes [employer] (ADA) provides guidance for cutoff values for fasting glucose and random glucose. The ADA defines fasting as no caloric intake for at least 8 hours. Fasting plasma glucose results between 100 to 125 mg/dL indicate increased risk for diabetes (prediabetes). Fasting plasma glucose results greater than or equal to 126 mg/dL meet the criteria for diagnosis of diabetes. In the absence of unequivocal hyperglycemia, results should be confirmed by repeat testing. In a patient with classic symptoms of hyperglycemia or hyperglycemic crisis, random plasma glucose results greater than or equal to 200 mg/dL meet the criteria for diagnosis of diabetes. Reference: Standards of Medical Care in Diabetes 2016, [place] [employer] Association. Diabetes Care. 2016.39(Suppl 1). Performed By: #### 4 498-2, 98979-8, 08402-2, 2156-6 ####[facility] LABCLIA [id number] [place] [address] [place] Potassium [Moles/Vol] 4.0 mmol/L Normal 3.7-5.1 [facility] Comment on above: Order Comment: Speci men Type: BLOOD SPECIMENOrdering Facility: [facility] Address: [address] [place] [address] Performed By: #### 4 498-2, 92073-0, 52240-0, 2156-10 ####[facility] LABIA [id number] [place] [address] [place] Sodium [Moles/Vol] 140 mmol/L Normal 136-144 [facility] Comment on above: Order Comment: Speci men Type: BLOOD SPECIMENOrdering Facility: [facility] Address: [address] [place] [address] Performed By: #### 4 498-2, 58523-1, 92633-3, 2156-10 ####[facility] LABIA [id number] [place] [address] [place] Urea nitrogen [Mass/Vol] 12 mg/dL Normal 7-21 [facility] Comment on above: Order Comment: Speci men Type: BLOOD SPECIMENOrdering Facility: [facility] Address: [address] [place] [address] Performed By: #### 4 498-2, 25367-3, 55817-5, 6 ####[facility] LABIA [id number] [place] [id number] [place] Cyclic citrullinated peptide IgG Qnon 09-29-2023 CCP ANTIBODY IGG QUALITATIVE Negative Normal Negative [facility] Comment on above: Order Comment: Speci men Type: BLOOD SPECIMEN [facility] Address: [address] [place] [address] Performed By: #### L UPPL #### [facility] CLIA [id number] [address] [place] [address] [place] DNA double strand Ab IA Qn ( S)on 09-29-2023 DNA ANTIBODY 29 IU/mL Normal <=200 [facility] Comment on above: Order Comment: Speci men Type: BLOOD SPECIMEN [facility] Address: [address] [place] [address] Result Comment: Nega tive: <200 IU/mL Equivocal: 201-300 IU/mL Moderate Positive: 301-800 IU/mL Strong Positive: >801 IU/mL Performed By: #### L UPPL #### [facility] CLIA [id number] [address] [place] [address] [place] DNA ANTIBODY QUALITATIVE INTERPRETATION Negative Normal Negative [facility] Comment on above: Order Comment: Speci men Type: BLOOD SPECIMEN [facility] Address: [address] [place] [address] Performed By: #### L UPPL #### [facility] CLIA [id number] [address] [place] [address] [place] CISCO Jo1 Ab Ser-aCncon 2023 Maliha-1 extractable nuclear Ab Qn (S) <0.2 Normal <1.0 [facility] Comment on above: Order Comment: Speci men Type: BLOOD SPECIMENOrdering Facility: [facility] Address: [address] [place] [address] Performed By: #### 5 1775-5, 24616-7, 94837-7, 59737-6, 92145-1, 30718-0, 84484-4, 29805-2 ####[facility] LABCLIA [id number] [place] [address] [place] CISCO [employer] DEVELOPER Ab Ser-aCncon 2023 Ribonucleoprotein extractable nuclear Ab Qn (S) <0.2 Normal <1.0 [facility] Comment on above: Order Comment: Speci men Type: BLOOD SPECIMENOrdering Facility: [facility] Address: [address] [place] [address] Performed By: #### 5 1775-5, 67967-4, 19774-9, 43102-9, 85078-9, 74076-6, 57787-2, 19163-7 ####[facility] LABCLIA [id number] [place] [address] [place] CISCO SM IgG Ser-aCncon 2023 Ritter extractable nuclear IgG Qn (S) <0.2 Normal <1.0 [facility] Comment on above: Order Comment: Speci men Type: BLOOD SPECIMENOrdering Facility: [facility] Address: [address] [place] [address] Performed By: #### 5 1775-5, 81923-9, 65224-1, 77720-2, 30652-1, 13848-3, 88932-3, 73947-4 ####[facility] LABCLIA [id number] [place] [address] [place] CISCO SS-A Ab Ser-aCncon 09-28 Sjogrens syndrome-A extractable nuclear Ab Qn (S) <0.2 Normal <1.0 [facility] Comment on above: Order Comment: Speci men Type: BLOOD SPECIMENOrdering Facility: [facility] Address: [address] [place] [address] Result Comment: Test Methodology: Multiplex flow immunoassay. Performed By: #### 5 1775-5, 38535-0, 42163-6, 49664-2, 27118-0, 74345-9, 15779-5, 44267-4 ####[facility] LABCLIA [id number] [place] [address] [place] CISCO SS-B Ab Ser-aCncon 09-28 Sjogrens syndrome-B extractable nuclear Ab Qn (S) <0.2 Normal <1.0 [facility] Comment on above: Order Comment: Speci jensen Type: BLOOD SPECIMENOrdering Facility: [facility] Address: [address] [place] [address] Result Comment: Anti -SSB (anti-La) antibody is used as an aid in diagnosis of a variety of systemic autoimmune diseases, especially for Sjogren's syndrome and systemic lupus erythematosus. Clinical correlation is required. Test Methodology: Multiplex flow immunoassay. Performed By: #### 5 1775-5, 60496-1, 49442-3, 63469-7, 42695-2, 70922-4, 48952-6, 83807-2 ####[facility] LABIA [id number] [place] [address] [place] ESR Westergren method (Bld) [Velocity]on 09-29-2023 ESR (Bld) [Velocity] 9 mm/h [facility] Interpretation and review of laboratory results Normal [facility] ESR (Bld) [Velocity] 9 mm/h Normal 0-20 [facility] Comment on above: Order Comment: Shahzad styles Type: BLOOD SPECIMENOrdering Facility: [facility] Address: [address] [place] [address] Performed By: #### 4 537-7, 05633-2 ####[facility] LABIA [id number] [place] [address] [place] Maliha-1 extractable nuclear Ab Qn (S)on 09-29-2023 MALIHA 1 ANTIBODY QUAL Negative Normal Negative [facility] Comment on above: Order Comment: Tapani men Type: BLOOD SPECIMENOrdering Facility: [facility] Address: [address] [place] [address] Result Comment: Anti -MALIHA-1 antibody is used as an aid in diagnosis of polymyositis and dermatomyositis especially with pulmonary involvement. A negative result cannot rule out polymyositis or dermatomyositis. Clinical correlation is required. Test Methodology: Multiplex flow immunoassay. Performed By: #### 5 1775-5, 24045-3, 44998-7, 55730-5, 42130-6, 95743-4, 57711-1, 79792-8 ####[facility] LABCLIA [id number] [place] [address] [place] LUPUS PANELon 09-29-2023 aPTT Coag (Bld) [Time] 36.1 s Normal 30.2-43.0 [facility] Comment on above: Order Comment: Shahzad styles Type: BLOOD SPECIMEN [facility] Address: [address] [place] [address] Performed By: #### L UPPL #### [facility] CLIA [id number] [address] [place] [address] [place] aPTT Coag (Bld) [Time] 34.2 s Normal 31.5-38.3 [facility] Comment on above: Order Comment: Shahzad styles Type: BLOOD SPECIMEN [facility] Address: [address] [place] [address] Performed By: #### L UPPL #### [facility] CLIA [id number] [address] [place] [address] [place] aPTT Coag (Bld) [Time] 28.7 s Normal 24.0-35.1 [facility] Comment on above: Order Comment: Shahzad styles Type: BLOOD SPECIMEN [facility] Address: [address] [place] [address] Performed By: #### L UPPL #### [facility] CLIA [id number] [address] [place] [address] [place] aPTT W excess hexagonal phase phospholipid Coag (PPP) [Time] 52.0 seconds High 34.0-51.8 [facility] Comment on above: Order Comment: Speci men Type: BLOOD SPECIMEN [facility] Address: [address] [place] [address] Performed By: #### L UPPL #### [facility] CLIA [id number] [address] [place] [address] [place] Coagulation factor X activated act Coag Qn (PPP) <0.10 Normal <0.10 [facility] Comment on above: Order Comment: Speci men Type: BLOOD SPECIMEN [facility] Address: [address] [place] [address] Result Comment: This test was developed and its performance characteristics determined by [facility] [place] ([facility]). It has not been cleared or approved by the FDA. -[facility] is regulated under CLIA as qualified to perform high-complexity testing. This test is used for clinical purposes. It should not be regarded as investigational or for research. Performed By: #### L UPPL #### [facility] CLIA [id number] [address] [place] [address] [place] Delta dRVVT Coag (PPP) [Time diff] 5.8 delta seconds Normal <7.1 [facility] Comment on above: Order Comment: Speci men Type: BLOOD SPECIMEN [facility] Address: [address] [place] [address] Performed By: #### L UPPL #### [facility] CLIA [id number] [address] [place] [address] [place] dRVVT Coag (PPP) [Time] 35.9 s Normal 32.0-45.7 [facility] Comment on above: Order Comment: Speci men Type: BLOOD SPECIMEN [facility] Address: [address] [place] [address] Performed By: #### L UPPL #### [facility] CLIA [id number] [address] [place] [address] [place] dRVVT factor substitution immediately after 1:2 addition of normal plasma Coag (PPP) [Time] 37.2 seconds Normal 32.0-45.7 [facility] Comment on above: Order Comment: Speci men Type: BLOOD SPECIMEN [facility] Address: [address] [place] [address] Performed By: #### L UPPL #### [facility] CLIA [id number] [address] [place] [address] [place] dRVVT W excess hexagonal phase phospholipid actual/normal Coag (PPP) [Relative time] 46.2 seconds Normal 34.2-47.9 [facility] Comment on above: Order Comment: Speci men Type: BLOOD SPECIMEN [facility] Address: [address] [place] [address] Performed By: #### L UPPL #### [facility] CLIA [id number] [address] [place] [address] [place] dRVVT/dRVVT.excess phospholipid Coag (PPP) [Ratio] 1.10 Normal <1.32 [facility] Comment on above: Order Comment: Speci men Type: BLOOD SPECIMEN [facility] Address: [address] [place] [address] Performed By: #### L UPPL #### [facility] CLIA [id number] [address] [place] [address] [place] PLATELET NEUT 0.0 Seconds Normal <1.9 [facility] Comment on above: Order Comment: Speci men Type: BLOOD SPECIMEN [facility] Address: [address] [place] [address] Performed By: #### L UPPL #### [facility] CLIA [id number] [address] [place] [address] [place] Thrombin time Coag (PPP) [Time] 17.8 seconds Normal <18.6 [facility] Comment on above: Order Comment: Speci men Type: BLOOD SPECIMEN [facility] Address: [address] [place] [address] Performed By: #### L UPPL #### [facility] CLIA [id number] [address] [place] [address] [place] No Panel Informationon 09-28 Interpretation and review of laboratory results Normal [facility] Interpretation and review of laboratory results Normal [facility] PROTEIN / CREATININE RATIOon 09-29-2023 Protein/Creatinine (U) [Mass ratio] 0.18 mg/mg High NINF - 0.15 mg/mg [facility] Comment on above: Adult Proteinuria Ca tegories: <0.15 mg/mg is considered normal to mildly increased 0.15 - 0.50 mg/mg is considered moderately increased >0.50 mg/mg is considered severely increased KDIGO. (2013). KDIGO 2012 Clinical Practice Guideline for the Evaluation and Management of Chronic Kidney Disease. Official Journal of the International Society of Nephrology, 3(1), 1-150. PROTEIN ELECTROPHORESIS SERU M (P)on 09-29-2023 Albumin [Mass/Vol] 4.09 g/dL Normal 3.43-5.41 [facility] Comment on above: Order Comment: Shahzad styles Type: BLOOD SPECIMENOrdering Facility: [facility] Address: [address] [place] [address] Performed By: #### L [id number] ####[facility] LABCLIA [id number] [place] [address] [place] Alpha 1 globulin Elph [Mass/Vol] 0.27 g/dL Normal 0.18-0.43 [facility] Comment on above: Order Comment: Shahzad styles Type: BLOOD SPECIMENOrdering Facility: [facility] Address: [address] [place] [address] Performed By: #### L [id number] ####[facility] LABCLIA [id number] [place] [address] [place] Alpha 2 globulin Elph [Mass/Vol] 0.63 g/dL Normal 0.42-0.98 [facility] Comment on above: Order Comment: Speci men Type: BLOOD SPECIMENOrdering Facility: [facility] Address: [address] [place] [address] Performed By: #### L [id number] ####[facility] LABCLIA [id number] [place] [address] [place] Beta globulin Elph [Mass/Vol] 0.75 g/dL Normal 0.61-1.17 [facility] Comment on above: Order Comment: Speci men Type: BLOOD SPECIMENOrdering Facility: [facility] Address: [address] [place] [address] Performed By: #### L [id number] ####[facility] LABCLIA [id number] [place] [address] [place] Gamma globulin Elph [Mass/Vol] 0.76 g/dL Normal 0.53-1.51 [facility] Comment on above: Order Comment: Speci men Type: BLOOD SPECIMENOrdering Facility: [facility] Address: [address] [place] [address] Performed By: #### L [id number] ####[facility] LABIA [id number] [place] [address] [place] M-PROTEIN LOCATION Normal [facility] Comment on above: Order Comment: Speci men Type: BLOOD SPECIMENOrdering Facility: [facility] Address: [address] [place] [address] Result Comment: Not Applicable. Performed By: #### L [id number] ####[facility]IA [id number] [place] [address] [place] Protein Fractions [Interp] No definitive M protein is identified on protein electrophoresis. Normal No definitive M protein is identified on protein electrophor esis. [facility] Comment on above: Order Comment: Speci men Type: BLOOD SPECIMENOrdering Facility: [facility] Address: [address] [place] [address] Performed By: #### L [id number] ####[facility]IA [id number] [address] [place] Protein.monoclonal Elph [Mass/Vol] 0.00 g/dL Normal <=0.00 [facility] Comment on above: Order Comment: Shahzad styles Type: BLOOD SPECIMENOrdering Facility: [facility] Address: [address] [place] [address] Performed By: #### L [id number] ####[facility]IA [id number] [address] [place] SPE STAFF REVIEW Reviewed by Pallavi Childs M.D. Normal [facility] Comment on above: Order Comment: Shahzad styles Type: BLOOD SPECIMENOrdering Facility: [facility] Address: [address] [place] [address] Performed By: #### L [id number] ####[facility] [id number] [address] [place] PT panel Coag (PPP)on 2023 INR Coag (PPP) [Relative time] 1.0 {INR} Normal 0.9-1.3 [facility] Comment on above: Order Comment: Shahzad styles Type: BLOOD SPECIMEN [facility] Address: [address] [place] [address] Result Comment: Deanna min K Antagonist (VKA) Therapeutic Range: INR 2 to 3 (Target INR of 2.5) Note: For patients treated with VKA drugs, such as warfarin, the [place] [employer] 2012 Guideline recommends a therapeutic INR range of 2 to 3 (target INR of 2.5). This recommendation includes high-risk patients with antiphospholipid syndrome with previous arterial or venous thromboembolism, current-generation mechanical or bioprosthetic aortic heart valve replacement. Note: Patients with mechanical aortic valve replacement and additional risk factors for thromboembolic events (atrial fibrillation, previous thromboembolism, LV dysfunction, hypercoagulable conditions) or an older generation mechanical AVR (i.e., ball in-Cage) or any mechanical MVR should have a INR therapeutic range of 2.5 to 3.5 (target INR of 3). Lostt GH, et al. Chest 2012, 141:7S-47S Marycruz RA, et al. [facility] 2017, 70: 252-289 Performed By: #### L UPPL #### [facility] CLIA [id number] [address] [place] [address] [place] PT Coag (PPP) [Time] 11.1 s Normal 9.7-13.0 [facility] Comment on above: Order Comment: Speci men Type: BLOOD SPECIMEN [facility] Address: [address] [place] [address] Performed By: #### L UPPL #### [facility] CLIA [id number] [address] [place] [address] [place] Prot SerPl-mCncon 09-29-2023 Protein [Mass/Vol] 6.5 g/dL Normal 6.3-8.0 [facility] Comment on above: Order Comment: Speci men Type: BLOOD SPECIMENOrdering Facility: [facility] Address: [address] [place] [address] Performed By: #### 1 988-5, 2885-2, 4485-9 ####[facility]CL[facility] [id number] [place] [address] [place] Performed By: #### 4 498-2, 44401-2, 55078-4, 2157-6 ####[facility] [id number] [place] [address] [place] Prot/Creat Uron 09-29-2023 Protein/Creatinine (U) [Mass ratio] 0.18 mg/mg High <0.15 [facility] Comment on above: Order Comment: Speci men Type: URINE SPECIMENOrdering Facility: [facility] Address: [address] [place] [address] Result Comment: Adul t Proteinuria Categories: <0.15 mg/mg is considered normal to mildly increased 0.15 - 0.50 mg/mg is considered moderately increased >0.50 mg/mg is considered severely increased KDIGO. (2013). KDIGO 2012 Clinical Practice Guideline for the Evaluation and Management of Chronic Kidney Disease. Official Journal of the International Society of Nephrology, 3(1), 1-150. Performed By: #### 2 890-2 ####[facility] LABCLIA [id number] [place] [address] [place] Protein/Creatinine (U) [Mass ratio]on 09-29-2023 Creatinine (U) [Mass/Vol] 38.3 mg/dL 20.0 - 300.0 mg/dL [facility] Interpretation and review of laboratory results Abnormal [facility] Protein (U) [Mass/Vol] 7 mg/dL 0 - 20 mg/dL [facility] Creatinine (U) [Mass/Vol] 38.3 mg/dL Normal 20.0-300.0 [facility] Comment on above: Order Comment: Speci men Type: URINE SPECIMENOrdering Facility: [facility] Address: [address] [place] [address] Performed By: #### 2 890-2 ####[facility] [id number] [address] [place] Protein (U) [Mass/Vol] 7 mg/dL Normal 0-20 [facility] Comment on above: Order Comment: Speci men Type: URINE SPECIMENOrdering Facility: [facility] Address: [address] [place] [address] Performed By: #### 2 890-2 ####[facility] LABIA [id number] [place] [id number] [place] RHEUMATOID FACTORon 09-29-19 24 Rheumatoid factor Qn NINF [facility] Rheumatoid fact SerPl-aCncon 09-29-2023 Rheumatoid factor Qn [IU]/mL Normal <16 [facility] Comment on above: Order Comment: Speci men Type: BLOOD SPECIMENOrdering Facility: [facility] Address: [address] [place] [address] Performed By: #### 4 498-2, 02539-7, 43132-3, 2157-6 ####[facility] LABIA [id number] [place] [address] [place] Ribonucleoprotein extractabl e nuclear Ab Qn (S)on 09-29-2023 ANTI-EMBEDDED SYSTEMS DEVELOPER QUAL Negative Normal Negative [facility] Comment on above: Order Comment: Speci men Type: BLOOD SPECIMENOrdering Facility: [facility] Address: [address] [place] [address] Performed By: #### 5 1775-5, 77495-5, 09634-6, 48800-6, 78075-1, 61031-2, 39112-6, 58312-8 ####[facility] [id number] [place] [address] [place] RIBOSOMAL EMBEDDED SYSTEMS DEVELOPER QUAL Negative Normal Negative [facility] Comment on above: Order Comment: Speci [facility] Type: BLOOD SPECIMENOrdering Facility: [facility] Address: [address] [place] [address] Result Comment: Anti -Ribosomal RNA (Ribosomal P) antibody is used as an aid in diagnosis of systemic autoimmune diseases especially systemic lupus erythematosus and mixed connective tissue disease. Cross-reactivity with Anti-ritter antibody is not uncommon. Clinical correlation is required. Test Methodology: Multiplex flow immunoassay. Performed By: #### 5 1775-5, 21859-9, 87025-7, 57421-2, 25185-0, 53746-3, 90907-9, 46942-8 ####[facility] LABIA [id number] [place] [address] [place] SCL-70 extractable nuclear I gG IA Qn (S)on 09-29-2023 SCLERODERMA AB QUAL Negative Normal Negative [facility] Comment on above: Order Comment: Speci men Type: BLOOD SPECIMENOrdering Facility: [facility] Address: [address] [place] [address] Performed By: #### 5 1775-5, 68894-8, 74230-7, 65622-0, 73348-2, 88238-1, 03626-3, 37883-5 ####[facility] LABCLIA [id number] [place] [address] [place] SCLERODERMA IGG AB <0.2 Normal <1.0 [facility] Comment on above: Order Comment: Speci men Type: BLOOD SPECIMENOrdering Facility: [facility] Address: [address] [place] [address] Result Comment: Scl- 70/Scleroderma antibody test is used as an aid in diagnosis of systemic sclerosis especially the diffuse cutaneous form. A negative result cannot rule out systemic sclerosis. The final interpretation should consider clinical picture and other test results such as anti-centromere antibody. Test Methodology: Multiplex flow immunoassay. Performed By: #### 5 1775-5, 39227-3, 24274-6, 90554-3, 88322-5, 07640-8, 77147-2, 45940-0 ####[facility] LABIA [id number] [place] [address] [place] Sjogrens syndrome-A extracta ble nuclear Ab Qn (S)on 09-29-2023 SSA ANTIBODY QUAL Negative Normal Negative [facility] Comment on above: Order Comment: Speci men Type: BLOOD SPECIMENOrdering Facility: [facility] Address: [address] [place] [address] Performed By: #### 5 1775-5, 52415-6, 15177-5, 36715-7, 49493-5, 26424-9, 62665-7, 60698-2 ####[facility] LABIA [id number] [place] [address] [place] Sjogrens syndrome-B extracta ble nuclear Ab Qn (S)on 09-29-2023 SSB ANTIBODY QUAL Negative Normal Negative [facility] Comment on above: Order Comment: Speci men Type: BLOOD SPECIMENOrdering Facility: [facility] Address: [address] [place] [address] Performed By: #### 5 1775-5, 56749-9, 37483-4, 73743-1, 05389-6, 83420-4, 38906-8, 68040-3 ####[facility] LABIA [id number] [place] [address] [place] Ritter extractable nuclear Ig G Qn (S)on 09-29-2023 SM ANTIBODY QUAL Negative Normal Negative [facility] Comment on above: Order Comment: Speci men Type: BLOOD SPECIMENOrdering Facility: [facility] Address: [address] [place] [address] Result Comment: Anti -Sm (Ritter) antibody is used as an aid in diagnosis of systemic lupus erythematosus and its presence is associated with renal disease. A negative result cannot rule out systemic lupus erythematosus. Clinical correlation is required. Test Methodology: Multiplex flow immunoassay. Performed By: #### 5 1775-5, 05642-6, 51014-6, 62318-2, 28928-5, 33155-5, 67903-8, 93623-3 ####[facility] LABIA [id number] [place] [address] [place] Urinalysis complete panel (U )on 09-29-2023 Bacteria LM.HPF (Urine sed) [#/Area] Negative Negative /HPF [facility] Bilirubin Ql (U) Negative Negative [facility] Clarity (Unsp spec) Clear Clear [facility] Color (U) Yellow Yellow [facility] Epithelial cells LM.HPF (Urine sed) [#/Area] None Seen /HPF [facility] Glucose Test strip (U) [Mass/Vol] Negative Negative [facility] Hemoglobin Ql (U) Negative Negative [facility] Hyaline casts (Urine sed) [#/Area] 0 /[LPF] 0 /LPF [facility] Ketones Ql (U) Negative Negative [facility] Leukocyte esterase Test strip Ql (U) Negative Negative [facility] Nitrite Ql (U) Negative Negative [facility] pH (U) 6.0 [pH] NINF - 8.5 [facility] Protein (U) [Mass/Vol] Negative Negative [facility] RBC LM.HPF (Urine sed) [#/Area] 0-2 /HPF 0-2 /HPF [facility] Specific gravity (U) [Rel density] 1.007 1.005 - 1.030 [facility] Urobilinogen Ql (U) 0.2 EU/dL 0.2-1.0 EU/dL [facility] WBC LM.HPF (Urine sed) [#/Area] 0-5 /HPF 0-5 /HPF [facility] This test was develo ped and its performance characteristics determined by [facility]'s [facility] [place] ([facility]PL[facility]). It has not been cleared or approved by the FDA. -[facility] is regulated under CLIA as qualified to perform high-complexity testing. This test is used for clinical purposes. It should not be regarded as investigational or for research. [facility] Bacteria LM.HPF (Urine sed) [#/Area] Negative Normal Negative [facility] Comment on above: Order Comment: Speci men Type: URINE SPECIMEN [facility] Address: [address] [place] [address] Performed By: #### 2 4356-8 #### [facility] CLIA [id number] [address] [place] [address] [place] Bilirubin Ql (U) Negative Normal Negative [facility] Comment on above: Order Comment: Speci men Type: URINE SPECIMEN [facility] Address: [address] [place] [address] Performed By: #### 2 4356-8 #### [facility] CLIA [id number] [address] [place] [address] [place] Clarity (Unsp spec) Clear Normal Clear [facility] Comment on above: Order Comment: Speci men Type: URINE SPECIMEN [facility] Address: [address] [place] [address] Performed By: #### 2 4356-8 #### [facility] CLIA [id number] [address] [place] [address] [place] Color (U) Yellow Normal Yellow [facility] Comment on above: Order Comment: Speci men Type: URINE SPECIMEN [facility] Address: [address] [place] [address] Performed By: #### 2 4356-8 #### [facility] CLIA [id number] [address] [place] [address] [place] Epithelial cells LM.HPF (Urine sed) [#/Area] None Seen Normal [facility] Comment on above: Order Comment: Speci men Type: URINE SPECIMEN [facility] Address: [address] [place] [address] Performed By: #### 2 4356-8 #### [facility] CLIA [id number] [address] [place] [address] [place] Glucose Test strip (U) [Mass/Vol] Negative Normal Negative [facility] Comment on above: Order Comment: Speci men Type: URINE SPECIMEN [facility] Address: [address] [place] [address] Performed By: #### 2 4356-8 #### [facility] CLIA [id number] [address] [place] [address] [place] Hemoglobin Ql (U) Negative Normal Negative [facility] Comment on above: Order Comment: Speci men Type: URINE SPECIMEN [facility] Address: [address] [place] [address] Performed By: #### 2 4356-8 #### [facility] CLIA [id number] [address] [place] [address] [place] Hyaline casts (Urine sed) [#/Area] 0 /[LPF] Normal 0 /LPF [facility] Comment on above: Order Comment: Speci men Type: URINE SPECIMEN [facility] Address: [address] [place] [address] Performed By: #### 2 4356-8 #### [facility] CLIA [id number] [address] [place] [address] [place] Ketones Ql (U) Negative Normal Negative [facility] Comment on above: Order Comment: Speci men Type: URINE SPECIMEN [facility] Address: [address] [place] [address] Performed By: #### 2 4356-8 #### [facility] CLIA [id number] [address] [place] [address] [place] Leukocyte esterase Test strip Ql (U) Negative Normal Negative [facility] Comment on above: Order Comment: Speci men Type: URINE SPECIMEN [facility] Address: [address] [place] [address] Performed By: #### 2 4356-8 #### [facility] CLIA [id number] [address] [place] [address] [place] Nitrite Ql (U) Negative Normal Negative [facility] Comment on above: Order Comment: Speci men Type: URINE SPECIMEN [facility] Address: [address] [place] [address] Performed By: #### 2 4356-8 #### [facility] CLIA [id number] [address] [place] [address] [place] pH (U) 6.0 [pH] Normal <8.5 [facility] Comment on above: Order Comment: Speci men Type: URINE SPECIMEN [facility] Address: [address] [place] [address] Performed By: #### 2 4356-8 #### [facility] CLIA [id number] [address] [place] [address] [place] Protein (U) [Mass/Vol] Negative Normal Negative [facility] Comment on above: Order Comment: Speci men Type: URINE SPECIMEN [facility] Address: [address] [place] [address] Performed By: #### 2 4356-8 #### [facility] CLIA [id number] [address] [place] [address] [place] RBC LM.HPF (Urine sed) [#/Area] 0-2 /HPF Normal 0-2 /HPF [facility] Comment on above: Order Comment: Speci men Type: URINE SPECIMEN [facility] Address: [address] [place] [address] Performed By: #### 2 4356-8 #### [facility] CLIA [id number] [address] [place] [address] [place] Specific gravity (U) [Rel density] 1.007 Normal 1.005-1.030 [facility] Comment on above: Order Comment: Speci men Type: URINE SPECIMEN [facility] Address: [address] [place] [address] Performed By: #### 2 4356-8 #### [facility] CLIA [id number] [address] [place] [address] [place] Urobilinogen Ql (U) 0.2 EU/dL Normal 0.2-1.0 EU/dL [facility] Comment on above: Order Comment: Speci men Type: URINE SPECIMEN [facility] Address: [address] [place] [address] Performed By: #### 2 4356-8 #### [facility] CLIA [id number] [address] [place] [address] [place] WBC LM.HPF (Urine sed) [#/Area] 0-5 /HPF Normal 0-5 /HPF [facility] Comment on above: Order Comment: Speci men Type: URINE SPECIMEN [facility] Address: [address] [place] [address] Performed By: #### 2 4356-8 #### [facility] CLIA [id number] [address] [place] [id number] [place] XR SI JTS 2V AP PELV/FERGUSO Non 09-29-2023 XR SI JTS 2V AP PELV/FISHER * * *Final Report* * * DATE OF EXAM: Sep 29 2023 12:17PM LNX 5245 - XR SI JTS 2V AP PELV/FISHER / PROCEDURE REASON: Polyarthralgia * * * * Physician Interpretation * * * * EXAM: XR SI JTS 2V AP PELV/FISHER HISTORY: Polyarthralgia . pain / burning/ arthritis TECHNIQUE: XR SI JTS 2V AP PELV/FISHER Number of different views (projections): 2 COMPARISON: None. RESULT: Bones: Normal bone density. No acute fracture. Joint spaces: Sacroiliac joint space widths maintained. No erosions. Lower lumbar degenerative disc disease at L5-S1 with facet arthrosis on the right. Soft tissues: No soft tissue abnormality. Surgical clip overlying the right ilium. IMPRESSION: 1. No acute osseous abnormality. 2. No erosions or evidence for inflammatory arthropathy. 3. L5-S1 spondylosis. Thread Trimmer: ANA Transcribe Date/Time: Sep 29 2023 4:06P Dictated by : BAIRON JOSEPH MD This examination was interpreted and the report reviewed and electronically signed by: BAIRON JOSEPH MD on Sep 29 2023 4:08PM EST [id number] Normal [facility] XR Sacroiliac Joint Viewson 09-29-2023 IMPRESSION: 1. No acute osseous abnormality. 2. No erosions or evidence for inflammatory arthropathy. 3. L5-S1 spondylosis. Thread Trimmer: [facility] Transcribe Date/Time: Sep 29 2023 4:06P Dictated by : BAIRON JOSEPH MD This examination was interpreted and the report reviewed and electronically signed by: BAIRON JOSEPH MD on Sep 29 2023 4:08PM EST DIVISION OF RADIOLOGY * * *Final Report* * * DATE OF EXAM: Sep 29 2023 12:17PM LNX 5245 - XR SI JTS 2V AP PELV/FISHER / PROCEDURE REASON: Polyarthralgia * * * * Physician Interpretation * * * * EXAM: XR SI JTS 2V AP PELV/FISHER HISTORY: Polyarthralgia . pain / burning/ arthritis TECHNIQUE: XR SI JTS 2V AP PELV/FISHER Number of different views (projections): 2 COMPARISON: None. RESULT: Bones: Normal bone density. No acute fracture. Joint spaces: Sacroiliac joint space widths maintained. No erosions. Lower lumbar degenerative disc disease at L5-S1 with facet arthrosis on the right. Soft tissues: No soft tissue abnormality. Surgical clip overlying the right ilium. DIVISION OF RADIOLOGY Provider, [facility] - 09/29/2023 * * *Final Report* * * DATE OF EXAM: Sep 29 2023 12:17PM LNX 5245 - XR SI JTS 2V AP PELV/FISHER / PROCEDURE REASON: Polyarthralgia * * * * Physician Interpretation * * * * EXAM: XR SI JTS 2V AP PELV/FISHER HISTORY: Polyarthralgia . pain / burning/ arthritis TECHNIQUE: XR SI JTS 2V AP PELV/FISHER Number of different views (projections): 2 COMPARISON: None. RESULT: Bones: Normal bone density. No acute fracture. Joint spaces: Sacroiliac joint space widths maintained. No erosions. Lower lumbar degenerative disc disease at L5-S1 with facet arthrosis on the right. Soft tissues: No soft tissue abnormality. Surgical clip overlying the right ilium. IMPRESSION IMPRESSION: 1. No acute osseous abnormality. 2. No erosions or evidence for inflammatory arthropathy. 3. L5-S1 spondylosis. Thread Trimmer: [email or web address] Transcribe Date/Time: Sep 29 2023 4:06P Dictated by : BAIRON JOSEPH MD This examination was interpreted and the report reviewed and electronically signed by: BAIRON JOSEPH MD on Sep 29 2023 4:08PM EST [facility] Radiology Study observation (narrative) [facility] XR Sacroiliac Joint ViewsOrd ered By: Ccf Provider on 09-29-2023 [facility] aPTT PPPon 09-29-2023 aPTT Coag (PPP) [Time] 28.2 s Normal 23.0-32.4 [facility] Comment on above: Order Comment: Speci men Type: BLOOD SPECIMEN [facility] Address: [address] [place] [address] Performed By: #### L UPPL #### [facility] CLIA [id number] [address] [place] [address] [place] cCP IgG SerPl-aCncon 05-21-2 024 Cyclic citrullinated peptide IgG Qn <15 Normal <20 [facility] Comment on above: Order Comment: Speci men Type: BLOOD SPECIMEN [facility] Address: [address] [place] [address] Performed By: #### L UPPL #### [facility] CLIA [id number] [address] [place] [address] [place] Activated partial thrombopla stin time (aPTT) in platelet poor plasma by coagulation aOrdered By: Curt Novoa on 08-25-2023 aPTT Coag (PPP) [Time] 30.7 s 25.1-36.5 [facility] Comment on above: A hematocrit value g reater than 55% may lead to inaccurate results in coagulation testing. Patients having hematocrit values >55% require a special collection tube for coagulation studies. Please contact the laboratory at [phone] for redraw instructions. Aerobic Cultureon 08-25-2023 Aerobic Culture Comment Tube 2 No Growth 2 Days Comment Tube 2 No Anaerobes Isolated 3 Days Comment Tube 2 Gram Stain Result No Bacteria Seen No White Blood Cells Seen PERFORMED BY: [address] [place] [address] PATHOLOGIST FLARE MAKER JUANY CLAUDIO M.D. Normal [facility] Comment on above: Performed By: #### C RP, ESR #### [place] [id number] [facility] Alanine aminotransferase [En zymatic activity/volume] in Serum or PlasmaOrdered By: Eli Antony on 08-25-2023 ALT [Catalytic activity/Vol] 37 U/L Normal 7-52 [facility] Comment on above: Performed By: #### L IPASE, ALP, BILTD, ILYA #### [address] Albumin [Mass/volume] in Ser um or Plasma by Bromocresol green (BCG) dye binding methoOrdered By: Eli Antony on 08-25-2023 Albumin BCG dye [Mass/Vol] 4.2 g/dL 3.5-5.7 [facility] Alkaline phosphatase [Enzyma tic activity/volume] in Serum or PlasmaOrdered By: Eli Brooksimore on 08-25-2023 ALP [Catalytic activity/Vol] 79 U/L Normal 34-104 [facility] Comment on above: Performed By: #### L IPASE, ALP, BILTD, ILYA #### [address] Aspartate aminotransferase [ Enzymatic activity/volume] in Serum or PlasmaOrdered By: Eli Antony on 08-25-2023 AST [Catalytic activity/Vol] 32 U/L Normal 13-39 [facility] Comment on above: Performed By: #### L IPASE, ALP, BILTD, ILYA #### [address] Automated basophil %Ordered By: Eli Antony on 08-25-2023 Basophils/100 WBC (Bld) 0.5 % Normal . [facility] Comment on above: Performed By: #### L IPASE, ALP, BILTD, ILYA #### [address] Automated basophil countOrde red By: Eli Antony on 08-25-2023 Basophils (Bld) [#/Vol] 0.0 10*3/uL Normal 0.0-0.2 [facility] Comment on above: Result Comment: PERF ORMED BY: [place] [address] PATHOLOGIST FLARE MAKER JUANY CLAUDIO M.D. Performed By: #### L IPASE, ALP, BILTD, ILYA #### [address] Automated blood monocyte cou ntOrdered By: Eli Toddimore on 08-25-2023 Monocytes (Bld) [#/Vol] 0.4 10*3/uL Normal 0.0-0.8 [facility] Comment on above: Performed By: #### L IPASE, ALP, BILTD, ILYA #### [address] Automated eosinophil %Ordere d By: Eli Toddimore on 08-25-2023 Eosinophils/100 WBC (Bld) 7.0 % Normal . [facility] Comment on above: Performed By: #### L IPASE, ALP, BILTD, ILYA #### [address] Automated eosinophil countOr dered By: Eli Arpan on 08-25-2023 Eosinophils (Bld) [#/Vol] 0.5 10*3/uL High 0.0-0.45 [facility] Comment on above: Performed By: #### L IPASE, ALP, BILTD, ILYA #### [address] Automated monocyte %Ordered By: Eli Antony on 08-25-2023 Monocytes/100 WBC (Bld) 6.0 % Normal . [facility] Comment on above: Performed By: #### L IPASE, ALP, BILTD, ILYA #### [address] Automated neutrophil %Ordere d By: Eli Castroore on 08-25-2023 Neutrophils/100 WBC (Bld) 44.1 % Normal . [facility] Comment on above: Performed By: #### L IPASE, ALP, BILTD, ILYA #### [address] Automated urine color determ inationOrdered By: Eli Antony on 08-25-2023 Color (U) Yellow Normal Yellow [facility] Comment on above: Order Comment: Name Collection Type:: Voided Performed By: #### L IPASE, ALP, BILTD, ILYA #### [address] [place] [address] [facility] Bilirubin Test strip Ql (U)O rdered By: Eli Castrominoo on 08-25-2023 Bilirubin Ql (U) Negative Negative [facility] Bilirubin.total [Mass/volume ] in Serum or PlasmaOrdered By: Eli Brookscedric on 08-25-2023 Bilirubin [Mass/Vol] 0.4 mg/dL Normal 0.3-1.0 [facility] Comment on above: Performed By: #### L IPASE, ALP, BILTD, ILYA #### [address] C reactive protein [Mass/vol ume] in Serum or PlasmaOrdered By: Elipriyanka Brooksrosalinoore on 08-25-2023 CRP [Mass/Vol] 7.6 mg/dL 0.0-0.5 [facility] C-Reactive Proteinon 024 C-Reactive Protein 7.6 mg/dL High 0.0-0.5 [facility] Comment on above: Result Comment: PERF ORMED BY: [place] [address] PATHOLOGIST FLARE MAKER JUANY CLAUDIO M.D. Performed By: #### C RP, ESR #### [place] [id number] [facility] CSF PCR Panelon 08-25-2023 CSF PCR Panel Comment Tube 2 Cytomegalovirus Not detected Cryptococcus neoformans or gattii 9002 Not detected Escherichia coli K1 Not detected Enterovirus Not detected Haemophilus influenzae (reported as H flu) Not detected Human herpesvirus 6 Not detected Herpes simplex virus 1 Not detected Herpes simplex virus 2 DNA [Presence] in Cerebral spinal fluid by KIRSTIN with non-probe detection Not detected Listeria monocytogenes (reported as listeriosis) Not detected Neisseria meningitidis - reported as meningococcal disease Not detected Human parechovirus Not detected Streptococcus pneumoniae - reported at ISP Not detected Group B Strep (Streptococcus agalactiae) Not detected Varicella zoster virus Not detected PERFORMED BY: [place] [address] PATHOLOGIST FLARE MAKER JUANY CLAUDIO M.D. Normal [facility] Comment on above: Performed By: #### C RP, ESR #### [facility] [address] cervical spine wo conon 0 08-25-2023 CT cervical spine wo con [facility] [place] [address] [place] [id number] Scan Report Signed Patient: Karolina Nicole MR#: [id number] : 1985 Acct:[id number] Age/Sex: 38 / F ADM Date: 08/25/23 Loc: ER Room: Type: [facility] ER Attending Dr: Copies to: JADE Garibay Ordering Provider: JADE Garibay Date of Service: 08/25/23 CT/CT cervical spine wo con: miller neck pain ([id number]) CT/CT head/brain wo con: miller neck pain CT BRAIN WITHOUT CONTRAST: CLINICAL HISTORY: Headache with neck stiffness COMPARISON: MRI brain 01/10/2022 TECHNIQUE: Contiguous axial unenhanced images were obtained through the brain. This CT exam was performed using one or more following dose reduction techniques: Automated exposure control, adjustment of the mA and/or kV according to patient size, or use of iterative reconstruction technique. FINDINGS: There is no evidence of midline shift, intra or extra-axial fluid collection, hemorrhage or CT evidence of stroke. Posterior fossa appears unremarkable. Visualized intraorbital contents appear unremarkable. Ethmoid and partially visualized right maxillary sinus disease. The surrounding soft tissues are normal. CT/CT head/brain wo con IMPRESSION: NO ACUTE INTRACRANIAL ABNORMALITY. CT CERVICAL SPINE WITHOUT CONTRAST WITH 3D RECONSTRUCTIONS: CLINICAL HISTORY: Headache with neck stiffness COMPARISON: None. TECHNIQUE: Spiral axial unenhanced images were obtained through the cervical spine. Sagittal, coronal and 3D volume-rendered reconstructions were also reviewed. This CT exam was performed using one or more following dose reduction techniques: Automated exposure control, adjustment of the mA and/or kV according to patient size, or use of iterative reconstruction technique. FINDINGS: No fracture. Mild endplate degenerative changes without significant disc height loss. Facet joints demonstrate minimal degenerative change. No prevertebral soft tissue swelling. Visualized lung apices demonstrate no acute process. IMPRESSION: NO CERVICAL SPINE FRACTURE Impression dictated by: Chance Beach Jr., Cleopatra08/25/2023 2:26 PM Dictation Location: [place] [address] Transcribed By: [facility] 08/25/23 142 Dictated By: Chance Beach Jr, DO 08/25/23 142 Signed By: 08/25/23 142 Normal [facility] Calcium [Mass/volume] in Ser um or PlasmaOrdered By: Eli Antony on 08-25-2023 Calcium [Mass/Vol] 9.5 mg/dL Normal 8.6-10.3 [facility] Comment on above: Performed By: #### L IPASE, ALP, BILTD, ILYA #### [address] Carbon dioxide, total [Moles /volume] in Serum or PlasmaOrdered By: Eli Antony on 08-25-2023 CO2 [Moles/Vol] 25.6 mmol/L Normal 21.0-31.0 [facility] Comment on above: Performed By: #### L IPASE, ALP, BILTD, ILYA #### [address] Cell Count Differential,CSFo n 08-25-2023 Appearance, CSF Clear Normal Clear [facility] Comment on above: Order Comment: Comme nt Tube 1 Performed By: #### C RP, ESR #### [place] [id number] [facility] Order Comment: Comme nt Tube 3 Color, CSF Colorless Normal Colorless [facility] Comment on above: Order Comment: Comme nt Tube 1 Performed By: #### C RP, ESR #### [facility] [address] [place] [id number] [facility] Order Comment: Comme nt Tube 3 CSF Supernatant Color Colorless Normal Colorless [facility] Comment on above: Order Comment: Comme nt Tube 1 Performed By: #### C RP, ESR #### [facility] [address] [place] [id number] [facility] Order Comment: Comme nt Tube 3 CSF Volume, Total 25.5 mL Normal [facility] Comment on above: Order Comment: Comme nt Tube 1 Performed By: #### C RP, ESR #### [address] Order Comment: Comme nt Tube 3 RBC, CSF 94 /uL Normal [facility] Comment on above: Order Comment: Comme nt Tube 1 Result Comment: The reference interval and other method performance specifications have not been established for this body fluid. The test result must be integrated into the clinical context for interpretation. Performed By: #### C RP, ESR #### [address] TNC, CSF 2 /uL Normal 0-5 [facility] Comment on above: Order Comment: Comme nt Tube 1 Performed By: #### C RP, ESR #### [address] Order Comment: Comme nt Tube 3 Tube Number Tested, CSF Tube Number: 1 Normal [facility] Comment on above: Order Comment: Comme nt Tube 1 Result Comment: PERF ORMED BY: [place] [address] PATHOLOGIST FLARE MAKER JUANY CLAUDIO M.D. Performed By: #### C RP, ESR #### [address] Cell Count Differential,CSF #2on 08-25-2023 Eosinophil, CSF [address] [facility] Comment on above: Order Comment: Comme nt Tube 3 Result Comment: The reference interval and other method performance specifications have not been established for this body fluid. The test result must be integrated into the clinical context for interpretation. Performed By: #### C RP, ESR #### [address] Lymphocytes, CSF 19 Normal [facility] Comment on above: Order Comment: Comme nt Tube 3 Result Comment: The reference interval and other method performance specifications have not been established for this body fluid. The test result must be integrated into the clinical context for interpretation. Performed By: #### C RP, ESR #### [place] [address] [place] Monocytes, CSF 6 Normal [facility] Comment on above: Order Comment: Comme nt Tube 3 Result Comment: The reference interval and other method performance specifications have not been established for this body fluid. The test result must be integrated into the clinical context for interpretation. Performed By: #### C RP, ESR #### [address] Neutrophils, CSF 0 Normal [facility] Comment on above: Order Comment: Comme nt Tube 3 Result Comment: The reference interval and other method performance specifications have not been established for this body fluid. The test result must be integrated into the clinical context for interpretation. Performed By: #### C RP, ESR #### [address] RBC, CSF 2 /uL Normal [facility] Comment on above: Order Comment: Comme nt Tube 3 Result Comment: The reference interval and other method performance specifications have not been established for this body fluid. The test result must be integrated into the clinical context for interpretation. Performed By: #### C RP, ESR #### [address] Tube Number Tested, CSF Tube Number: 3 Normal [facility] Comment on above: Order Comment: Comme nt Tube 3 Result Comment: PERF ORMED BY: [place] [address] PATHOLOGIST FLARE MAKER JUANY CLAUDIO M.D. Performed By: #### C RP, ESR #### [address] Cerebrospinal fluid appearan ce descriptionOrdered By: Curt Novoa on 08-25-2023 Appearance (CSF) Clear Clear [facility] Cerebrospinal fluid post-radha trifugation appearance determinationOrdered By: Curt Novoa on 08-25-2023 Appearance (Spun CSF) Colorless Colorless [facility] Cerebrospinal fluid sample t ube volume measurementOrdered By: Curt Novoa on 08-25-2023 Specimen volume (CSF) 25.5 mL [facility] Chloride [Moles/volume] in S dalia or PlasmaOrdered By: Eli Bullimore on 08-25-2023 Chloride [Moles/Vol] 107 mmol/L Normal 98-107 [facility] Comment on above: Performed By: #### L IPASE, ALP, BILTD, ILYA #### [address] Color CSFOrdered By: Curt portillo on 08-25-2023 Color (CSF) Colorless Colorless [facility] Complete Blood Count Auto Di ffon 08-25-2023 Mean Corpuscular HGB Conc 34.0 g/dL Normal 32.0-35.0 [facility] Comment on above: Performed By: #### L IPASE, ALP, BILTD, ILYA #### [address] Monocytes/100 WBC (Bld) 22.85 % High 0.00-20.00 [facility] Comment on above: Result Comment: For adults in ED, MDW > 20.0 may be associated with a higher risk of sepsis during the first 12 hrs of hospital admission Performed By: #### L IPASE, ALP, BILTD, ILYA #### [address] NRBC% 0.1 /100{WBC} Normal 0-0.5 [facility] Comment on above: Performed By: #### L IPASE, ALP, BILTD, ILYA #### [address] Comprehensive Metabolic Pane jose angel 08-25-2023 Albumin [Mass/Vol] 4.2 g/dL Normal 3.5-5.7 [facility] Comment on above: Performed By: #### L IPASE, ALP, BILTD, ILYA #### [address] Creatinine Clr Calc Pharmacy 97.78 Normal [facility] Comment on above: Result Comment: PERF ORMED BY: [place] [address] PATHOLOGIST FLARE MAKER JUANY CLAUDIO M.D. Performed By: #### L IPASE, ALP, BILTD, ILYA #### [address] GFR/1.73 sq M.predicted MDRD (S/P/Bld) [Vol rate/Area] mL/min/{1.73_m2} Normal [facility] Comment on above: Performed By: #### L IPASE, ALP, BILTD, ILYA #### [address] Creatinine [Mass/volume] in Serum or PlasmaOrdered By: Eli Bullimore on 08-25-2023 Creatinine [Mass/Vol] 0.78 mg/dL Normal 0.60-1.20 [facility] Comment on above: Performed By: #### L IPASE, ALP, BILTD, ILYA #### [address] Erythrocyte Sedimentation Ra shelbie 08-25-2023 ESR (Bld) [Velocity] 30 mm/h High 0- [facility] Comment on above: Result Comment: PERF ORMED BY: [place] [address] PATHOLOGIST FLARE MAKER JUANY CLAUDIO M.D. Performed By: #### C RP, ESR #### [address] Erythrocyte distribution wid th [Ratio] by Automated countOrdered By: Eli Bullimore on 08-25-2023 Erythrocyte distribution width (RBC) [Ratio] 12.5 % Normal 11.9-15.3 [facility] Comment on above: Performed By: #### L IPASE, ALP, BILTD, ILYA #### [address] Erythrocyte sedimentation ra te by Photometric methodOrdered By: Eli Bullimore on 08-25-2023 ESR Photometric method (Bld) [Velocity] 30 mm/hr 0-19 [facility] Erythrocytes [#/volume] in B lood by Automated countOrdered By: Eli Bullimore on 08-25-2023 RBC (Bld) [#/Vol] 4.20 10*6/uL Normal 3.60-5.00 [facility] Comment on above: Performed By: #### L JOY THOMPSON BILTD, AMY #### [facility] [address] [place] [address] [facility] FL guided lumbar puncture LP on 08-25-2023 FL guided lumbar puncture LP [facility] [place] [address] [place] [address] Fluoroscopy Report Signed Patient: Karolina Nicole MR#: [id number] : 1985 Acct:[id number] Age/Sex: 38 / F ADM Date: 08/25/23 Loc: ER Room: Type: [facility] ER Attending Dr: Copies to: JADE Garibay DO Ordering Provider: Curt Novoa DO Date of Service: 08/25/23 FL/FL guided lumbar puncture LP: FEVERS, MILLER FL guided lumbar puncture LP 08/25/2023 3:25 PM SIGNS AND SYMPTOMS: 3.06 [id number] FEVERS, MILLER INFORMED CONSENT: Reason for procedure was discussed with the patient. The procedure expectations risks benefits options and alternatives were discussed. All the questions were answered. The patient understood the results cannot be guaranteed. The procedure is indicated and risks were acceptable. Consent was obtained. PROCEDURE: A fluoroscopically guided lumbar puncture was performed at the L4-5 level on the left via a left sublaminar approach. The patient was prepped and draped in a sterile manner. 5 mL of lidocaine 1% without epinephrine were used for local anesthesia. A 20-gauge spinal needle was introduced into the subarachnoid space on the left atL4-5 via a left sublaminar approach. The opening pressure was measured with the patient in the left lateral decubitus position. The opening pressure measures 30 cm CSF. After removal of approximately 28 mL of clear fluid into 4 tubes, the closing pressure measures 11 cm CSF. The needle was removed and hemostasis was obtained using manual pressure. Cumulative Air Kerma in mGy: 3.06 mGy The patient tolerated the procedure well. No immediate complications were detected. FL/FL guided lumbar puncture LP IMPRESSION: Successful fluoroscopically guided lumbar puncture with opening pressure of 30 cm CSF a closing pressure of 11 cm CSF. Impression dictated by: Dorian Hopkins M.D.08/25/2023 4:39 PM Dictation Location: [place] [address] Transcribed By: [facility] 08/25/23 1639 Dictated By: Dorian Hopkins II, MD 08/25/23 1637 Signed By: 08/25/23 1639 Normal [facility] Glucose [Mass/volume] in Cer ebral spinal fluidOrdered By: Curt Novoa on 08-25-2023 Glucose (CSF) [Mass/Vol] 45 mg/dL 40-70 [facility] Glucose [Mass/volume] in Ser um or PlasmaOrdered By: Eli Antony on 08-25-2023 Glucose [Mass/Vol] 80 mg/dL Normal 70-100 [facility] Comment on above: ADA recommended refe rence rangeRandom Glucose Reference Range is dependent on time and content of last meal. Glucose of more than 200 mg/dL in a nonstressed, ambulatory subject supports the diagnosis of Diabetes Mellitus. Result Comment: [place] Glucose Reference Range is dependent on time and content of last meal. Glucose of more than 200 mg/dL in a nonstressed, ambulatory subject supports the diagnosis of Diabetes Mellitus. ADA recommended reference range Performed By: #### L IPASE, ALP, BILTD, ILYA #### [facility] [address] [place] [id number] [place] Glucose, CSF #2on 08-25-2023 Glucose, CSF #2 45 mg/dL Normal 40-[address] [facility] Comment on above: Order Comment: Comme nt Tube 3 Performed By: #### C RP, ESR #### [facility] [address] [place] [id number] [place] Glucose, Spinal Fluidon - Glucose, Spinal Fluid 48 mg/dL Normal 40-70 [facility] Comment on above: Order Comment: Comme nt Tube 1 Performed By: #### C SFCCDIFF #2, CSF TP #2, CSF TP, GS, CSFCCDIFF, CSF GLU #2, CSF GLU, CSF PCR PANEL, AERC #### [facility] [address] [place] [id number] [place] Gram Stainon 08-25-2023 Microscopic observation Gram stain Nom (Unsp spec) Comment Tube 2 Gram Stain Result No Bacteria Seen No White Blood Cells Seen PERFORMED BY: [place] [address] PATHOLOGIST FLARE MAKER JUANY CLAUDIO M.D. Normal [facility] Comment on above: Performed By: #### C RP, ESR #### [address] Gram stain for investigation of transfusion reactionOrdered By: Curt Novoa on 08-25-2023 Microscopic observation Gram stain Nom (Unsp spec) [facility] Microscopic observation Gram stain Nom (Unsp spec) No Anaerobes Isolated 3 Days [facility] Hematocrit [Volume Fraction] of Blood by Automated countOrdered By: Eli Antony on 08-25-2023 Hematocrit (Bld) [Volume fraction] 37.6 % Normal 34.0-46.4 [facility] Comment on above: Performed By: #### L IPASE, ALP, BILTD, ILYA #### [address] Hemoglobin [Mass/volume] in BloodOrdered By: Eli Antony on 08-25-2023 Hemoglobin (Bld) [Mass/Vol] 12.8 g/dL Normal 11.8-15.4 [facility] Comment on above: Performed By: #### L IPASE, ALP, BILTD, ILYA #### [address] INR in Platelet poor plasma by Coagulation assayOrdered By: Curt Novoa on 08-25-2023 INR Coag (PPP) [Relative time] 1.0 {INR} Normal [facility] Comment on above: INR Therapeutic Rang e A) Pre- and Peroperative OAT started two weeks before surgery. NOT HIP SURGERY: 1.5 - 2.5 HIP SURGERY: 2 - 3B) Primary and secondary prevention of venous THROMBOSIS: 2 - 3C) Active venous thrombosis, pulmonary embolismand prevention of recurrent venous thrombosis: 2 - 3D) Prevention of arterial thromboembolismincluding patients with mechanical heart valves: 3 - 4.5 Result Comment: INR Therapeutic Range A) Pre- and Peroperative OAT started two weeks before surgery. NOT HIP SURGERY: 1.5 - 2.5 HIP SURGERY: 2 - 3 B) Primary and secondary prevention of venous THROMBOSIS: 2 - 3 C) Active venous thrombosis, pulmonary embolism and prevention of recurrent venous thrombosis: 2 - 3 D) Prevention of arterial thromboembolism including patients with mechanical heart valves: 3 - 4.5 Performed By: #### C RP, ESR #### [facility] [address] Ketones Auto test strip (U) [Mass/Vol]Ordered By: Eli Antony on 08-25-2023 Ketones (U) [Mass/Vol] Trace Negative [facility] Jose Angel 08-25-2023 L Specimen: [id number] Received: 08/26/23 Status: ESTELLA Almaraz Num: [id number] Spec Type: Cytology Subm Dr: Curt Novoa DO Tissues: A CSF (CSF) Procedures: Cyto Prepstain, DIFF QWIK, PAPSTN Age/ Patient Sex Location Account Attending Physician CoreyKarolina N 38/F ER [id number] Eli Antony, ONLINE EDUCATION MANAGER-C SPEC NUM: [id number] RECD: 08/26/23 STATUS: LOUISEAzael ALMARAZ NUM: [id number] GLORY: 08/25/[address]: Curt Novoa DO ENTERED: 08/26/[address]: Dorian Hopkins II, MD SPEC TYPE: Cytology DEPT: CNG ENTERED BY: [id number] RECV BY: [id number] ORDERED: Cyto Prepstain, DIFF QWIK, PAPSTN ORDERED: Cyto Prepstain, DIFF QWIK, PAPSTN Pathological Diagnosis Cerebrospinal fluid: Negative for malignant cells. Gross Description Received fresh labeled with the patient's name, date of and CSF #3 per requisition is 5 ml colorless clear unfixed fluid. 2,1 stained diff and 1 stained pap cytospin slides are prepared. (GA/de) CPT Codes 16803 Specimen: [id number] Received: 08/26/23 Status: ESTELLA Almaraz Num: [id number] Spec Type: Cytology Subm Dr: Curt Novoa DO Tissues: A CSF (CSF) Procedures: Cyto Prepstain, DIFF QWIK, PAPSTN Patient: DrissaubreyKarolina [id number] (Continued) Signed (signature on file) Adelita Lee MD 08/27/23 1311 Normal [facility] Lactate [Moles/volume] in Se rum or PlasmaOrdered By: Eli Antony on 08-25-2023 Lactate [Moles/Vol] 0.8 mmol/L Normal 0.5-2.2 [facility] Comment on above: Result Comment: PERF ORMED BY: [place] [address] PATHOLOGIST FLARE MAKER JUANY CLAUDIO M.D. Performed By: #### L IPASE, ALP, BILTD, ILYA #### [facility] [address] [place] [address] Leukocytes [#/volume] correc nisha for nucleated erythrocytes in Blood by Automated counOrdered By: Eli Bullimore on 08-25-2023 WBC corrected for nucl RBC Auto (Bld) [#/Vol] 6.5 10*3/uL 3.8-11.6 [facility] Leukocytes [#/volume] in Blo od by Automated countOrdered By: Eli Bullimore on 08-25-2023 WBC (Bld) [#/Vol] 6.5 10*3/uL Normal 3.8-11.6 [facility] Comment on above: Performed By: #### L IPASE, ALP, BILTD, ILYA #### [facility] [address] [place] [address] Lymphocytes [#/volume] in Bl ood by Automated countOrdered By: Eli Bullimore on 08-25-2023 Lymphocytes (Bld) [#/Vol] 2.8 10*3/uL Normal 1.00-4.8 [facility] Comment on above: Performed By: #### L IPASE, ALP, BILTD, ILYA #### [facility] [address] [place] [address] [place] Lymphocytes/100 leukocytes i n Blood by Automated countOrdered By: Eli Bullimore on 08-25-2023 Lymphocytes/100 WBC (Bld) 42.4 % Normal . [facility] Comment on above: Performed By: #### L IPASE, ALP, BILTD, ILYA #### [facility] [address] [place] [address] [place] MCH [Entitic mass] by Automa nisha countOrdered By: Eli Bullimore on 08-25-2023 MCH (RBC) [Entitic mass] 30.5 pg Normal 24.7-34.3 [facility] Comment on above: Performed By: #### L IPASEJOY, BILTD, ILYA #### [facility] [address] [place] [address] MCHC Auto (RBC) [Mass/Vol]Or dered By: Eli Bullimore on 08-25-2023 MCHC (RBC) [Mass/Vol] 34.0 g/dL 32.0-35.0 [facility] MCV [Entitic volume] by Auto mated countOrdered By: Eli Antony on 08-25-2023 MCV (RBC) [Entitic vol] 89.7 fL Normal 80-100 [facility] Comment on above: Performed By: #### L JOY THOMPSON, BILTD, ILYA #### [facility] [address] [place] [address] Manual cerebrospinal fluid e rythrocytes count (number/volume)Ordered By: Curt Novoa on 08-25-2023 RBC Manual cnt (CSF) [#/Vol] 2 /uL [facility] Comment on above: The reference interv al and other method performance specifications have not been established for this body fluid. The test result must be integrated into the clinical context for interpretation. Meningitis+Encephalitis path ogens DNA and RNA panel - Cerebral spinal fluid by KIRSTIN wiOrdered By: Curt Novoa on 08-25-2023 Meningitis+Encephalit is pathogens DNA and RNA panel KIRSTIN+non-probe (CSF) [facility] Monocyte distribution width [Entitic volume] in Blood by AutomatedOrdered By: Eli Antony on 08-25-2023 Monocyte distribution width Auto (Bld) [Entitic vol] 22.85 % 0.00-20.00 [facility] Comment on above: For adults in ED, MD W > 20.0 may be associated with a higher risk of sepsis during the first 12 hrs of hospital admission Neutrophils [#/volume] in Bl ood by Automated countOrdered By: Eli Brooksimminoo on 08-25-2023 Neutrophils (Bld) [#/Vol] 2.9 10*3/uL Normal 1.8-7.7 [facility] Comment on above: Performed By: #### L IPASE, ALP, BILTD, ILYA #### [facility] [address] Nitrite Test strip Ql (U)Ord ered By: Eli Antony on 08-25-2023 Nitrite Ql (U) Negative Negative [facility] No Panel InformationOrdered By: Curt Novoa on 08-25-2023 CSF Eosinophils 0 [facility] Comment on above: The reference interv al and other method performance specifications have not been established for this body fluid. The test result must be integrated into the clinical context for interpretation. CSF Lymphocytes 19 [facility] Comment on above: The reference interv al and other method performance specifications have not been established for this body fluid. The test result must be integrated into the clinical context for interpretation. CSF Monocytes 6 [facility] Comment on above: The reference interv al and other method performance specifications have not been established for this body fluid. The test result must be integrated into the clinical context for interpretation. CSF Neutrophils 0 [facility] Comment on above: The reference interv al and other method performance specifications have not been established for this body fluid. The test result must be integrated into the clinical context for interpretation. CSF Tube Number Tube number: 1 [facility] No Panel InformationOrdered By: Eli Antony on 08-25-2023 Estimated GFR (CKD-EPI) > 60.0 mL/Min [facility] Creatinine Clearance (Chem 97.78 [facility] Nucleated cells [#/volume] i n Cerebral spinal fluid by Manual countOrdered By: Curt Novoa on 08-25-2023 Nucleated cells Manual cnt (CSF) [#/Vol] 0.002 10*3/uL 0-5 [facility] Nucleated erythrocytes [Pres ence] in Blood by Automated countOrdered By: Eli Antony on 08-25-2023 Nucleated RBC Auto Ql (Bld) 0.1 /100{WBC} 0-0.5 [facility] Partial Thromboplastin Timeo n 08-25-2023 aPTT Coag (Bld) [Time] 30.7 s Normal 25.1-36.5 [facility] Comment on above: Result Comment: A he matocrit value greater than 55% may lead to inaccurate results in coagulation testing. Patients having hematocrit values >55% require a special collection tube for coagulation studies. Please contact the laboratory at [phone] for redraw instructions. PERFORMED BY: [place] [address] PATHOLOGIST FLARE MAKER JUANY CLAUDIO M.D. Performed By: #### C RP, ESR #### [facility] [address] [place] [address] Platelet mean volume [Entiti c volume] in Blood by Automated countOrdered By: Eli Antony on 08-25-2023 Platelet mean volume (Bld) [Entitic vol] 7.9 fL Normal 6.3-10.7 [facility] Comment on above: Performed By: #### L IPASE, ALP, BILTD, ILYA #### [address] Platelets [#/volume] in Bloo d by Automated countOrdered By: Eli Antony on 08-25-2023 Platelets (Bld) [#/Vol] 303 10*3/uL Normal 150-450 [facility] Comment on above: Performed By: #### L IPASE, ALP, BILTD, ILYA #### [address] Potassium [Moles/volume] in Serum or PlasmaOrdered By: Eli Antony on 08-25-2023 Potassium [Moles/Vol] 3.7 mmol/L Normal 3.5-5.1 [facility] Comment on above: Performed By: #### L IPASE, ALP, BILTD, ILYA #### [address] Protein Auto test strip (U) [Mass/Vol]Ordered By: Eli Antony on 08-25-2023 Protein (U) [Mass/Vol] Negative Negative [facility] Protein [Mass/volume] in Cer ebral spinal fluidOrdered By: Curt Novoa on 08-25-2023 Protein (CSF) [Mass/Vol] 44 mg/dL 15-45 [facility] Protein [Mass/volume] in Ser um or PlasmaOrdered By: Eli Arpan on 08-25-2023 Protein [Mass/Vol] 7.1 g/dL Normal 6.4-8.9 [facility] Comment on above: Performed By: #### L IPASE, ALP, BILTD, ILYA #### [address] Prothrombin time (PT)Ordered By: Curt Novoa on 08-25-2023 PT Coag (PPP) [Time] 11.9 s Normal 9.0-12.9 [facility] Comment on above: A hematocrit value g reater than 55% may lead to inaccurate results in coagulation testing. Patients having hematocrit values >55% require a special collection tube for coagulation studies. Please contact the laboratory at [phone] for redraw instructions. Result Comment: A he matocrit value greater than 55% may lead to inaccurate results in coagulation testing. Patients having hematocrit values >55% require a special collection tube for coagulation studies. Please contact the laboratory at [phone] for redraw instructions. Performed By: #### C RP, ESR #### [address] Serum globulin measurement b y calculation (mass/volume)Ordered By: Eli Antony on 08-25-2023 Globulin (S) [Mass/Vol] 2.9 g/dL Normal [facility] Comment on above: Performed By: #### L IPASE, ALP, BILTD, ILYA #### [address] Serum or plasma albumin/glob ulin mass ratioOrdered By: Eli Bullimore on 08-25-2023 Albumin/Globulin [Mass ratio] 1.4 {ratio} [facility] Comment on above: Performed By: #### L IPASE, ALP, BILTD, ILYA #### [address] Serum or plasma anion gap de terminationOrdered By: Eli Bullimore on 08-25-2023 Anion gap [Moles/Vol] 10.1 mmol/L Normal 6.0-15.0 [facility] Comment on above: Performed By: #### L IPASE, ALP, BILTD, ILYA #### [place] [address] [place] Sodium [Moles/volume] in Ser um or PlasmaOrdered By: Eli Antony on 08-25-2023 Sodium [Moles/Vol] 139 mmol/L Normal 136-145 [facility] Comment on above: Performed By: #### L IPASE, ALP, BILTD, ILYA #### [place] [address] [place] Specific gravity Auto test s trip (U) [Rel density]Ordered By: Eli Antony on 08-25-2023 Specific gravity (U) [Rel density] 1.006 1.001-1.030 [facility] Total Protein, CSF #2on 04- Total Protein, CSF #2 44 mg/dL Normal 15-45 [facility] Comment on above: Order Comment: Comme nt Tube 3 Result Comment: PERF ORMED BY: [place] [address] PATHOLOGIST [employer] JUANY CLAUDIO M.D. Performed By: #### C RP, ESR #### [place] [address] [place] Total Protein, Spinal Fluido n 08-25-2023 Total Protein, Spinal Fluid 47 mg/dL High 15-45 [facility] Comment on above: Order Comment: Comme nt Tube 1 Result Comment: PERF ORMED BY: [place] [address] PATHOLOGIST [employer] JUANY CLAUDIO M.D. Performed By: #### C RP, ESR #### [place] [id number] [place] Urea nitrogen [Mass/volume] in Serum or PlasmaOrdered By: Eli Antony on 08-25-2023 Urea nitrogen [Mass/Vol] 7 mg/dL Normal 7-25 [facility] Comment on above: Performed By: #### L IPASE, ALP, BILTD, ILYA #### [address] Urinalysison 08-25-2023 Appearance (U) Clear Normal Clear [facility] Comment on above: Order Comment: Name Collection Type:: Voided Performed By: #### L IPASE, ALP, BILTD, ILYA #### [address] Bilirubin,Urine Negative Normal Negative [facility] Comment on above: Order Comment: Name Collection Type:: Voided Performed By: #### L IPASE, ALP, BILTD, ILYA #### [address] Glucose Ql (U) Normal Normal Normal [facility] Comment on above: Order Comment: Name Collection Type:: Voided Performed By: #### L IPASE, ALP, BILTD, ILYA #### [address] Ketones Ql (U) Trace High Negative [facility] Comment on above: Order Comment: Name Collection Type:: Voided Performed By: #### L IPASE, ALP, BILTD, ILYA #### [address] Leukocyte esterase Test strip Ql (U) Negative Normal Negative [facility] Comment on above: Order Comment: Name Collection Type:: Voided Performed By: #### L IPASE, ALP, BILTD, ILYA #### [place] [address] [place] Nitrite,Urine Negative Normal Negative [facility] Comment on above: Order Comment: Name Collection Type:: Voided Performed By: #### L IPASE, ALP, BILTD, ILYA #### [address] Occult Blood,Urine Negative Normal Negative [facility] Comment on above: Order Comment: Name Collection Type:: Voided Result Comment: PERF ORMED BY: [place] [address] PATHOLOGIST [employer] JUANY CLAUDIO M.D. Performed By: #### L IPASE, ALP, BILTD, ILYA #### [address] Protein,Urine Negative Normal Negative [facility] Comment on above: Order Comment: Name Collection Type:: Voided Performed By: #### L IPASE, ALP, BILTD, ILYA #### [address] Specificy [place],Urine 1.006 Normal 1.001-1.030 [facility] Comment on above: Order Comment: Name Collection Type:: Voided Performed By: #### L IPASE, ALP, BILTD, ILYA #### [address] Urobilinogen,Urine Normal Normal Normal [facility] Comment on above: Order Comment: Name Collection Type:: Voided Performed By: #### L IPASE, ALP, BILTD, ILYA #### [address] Urine clarity by refractomet ry automatedOrdered By: Eli Antony on 08-25-2023 Clarity Refractometry automated (U) Clear Clear [facility] Urine glucose measurement by automated test strip (mass/volume)Ordered By: Eli Antony on 08-25-2023 Glucose Auto test strip (U) [Mass/Vol] Normal mg/dL Normal [facility] Urine hemoglobin detection b y automated test stripOrdered By: Eli Antony on 08-25-2023 Hemoglobin Auto test strip Ql (U) Negative Negative [facility] Urine leukocyte esterase det ection by automated test stripOrdered By: Eli Antony on 08-25-2023 Leukocyte esterase Auto test strip Ql (U) Negative Negative [facility] Urine pH measurement by auto mated test stripOrdered By: Eli Antony on 08-25-2023 pH (U) 6.5 [pH] Normal 5.0-9.0 [facility] Comment on above: Order Comment: Name Collection Type:: Voided Performed By: #### L IPASE, ALP, BILTD, ILYA #### [facility] [address] Urobilinogen Auto test strip (U) [Mass/Vol]Ordered By: Eli Antony on 08-25-2023 Urobilinogen (U) [Mass/Vol] Normal mg/dL Normal [facility] Activated partial thrombopla stin time (aPTT) in platelet poor plasma by coagulation aOrdered By: Curt Novoa on 08-23-2023 aPTT Coag (PPP) [Time] 28.4 s 25.1-36.5 [facility] Comment on above: A hematocrit value g reater than 55% may lead to inaccurate results in coagulation testing. Patients having hematocrit values >55% require a special collection tube for coagulation studies. Please contact the laboratory at [phone] for redraw instructions. Alanine aminotransferase [En zymatic activity/volume] in Serum or PlasmaOrdered By: Curt Novoa on 08-23-2023 ALT [Catalytic activity/Vol] 26 U/L Normal 7-52 [facility] Comment on above: Performed By: #### L IPASE, ALP, BILTD, ILYA #### [facility] [address] Albumin [Mass/volume] in Ser um or Plasma by Bromocresol green (BCG) dye binding methoOrdered By: Curt Novoa on 08-23-2023 Albumin BCG dye [Mass/Vol] 4.2 g/dL 3.5-5.7 [facility] Alkaline phosphatase [Enzyma tic activity/volume] in Serum or PlasmaOrdered By: Curt Novoa on 08-23-2023 ALP [Catalytic activity/Vol] 72 U/L Normal 34-104 [facility] Comment on above: Performed By: #### L IPASE, ALP, BILTD, ILYA #### [facility] [address] Aspartate aminotransferase [ Enzymatic activity/volume] in Serum or PlasmaOrdered By: Curt Novoa on 08-23-2023 AST [Catalytic activity/Vol] 32 U/L Normal 13-39 [facility] Comment on above: Performed By: #### L IPASE, ALP, BILTD, ILYA #### [address] Automated basophil %Ordered By: Curt Nvooa on 08-23-2023 Basophils/100 WBC (Bld) 0.4 % Normal . [facility] Comment on above: Performed By: #### L IPASE, ALP, BILTD, ILYA #### [address] Automated basophil countOrde red By: Curt Novoa on 08-23-2023 Basophils (Bld) [#/Vol] 0.0 10*3/uL Normal 0.0-0.2 [facility] Comment on above: Result Comment: PERF ORMED BY: [place] [address] PATHOLOGIST [employer] JUANY CLAUDIO M.D. Performed By: #### L IPASE, ALP, BILTD, ILYA #### [address] Automated blood monocyte cou ntOrdered By: Curt Novoa on 08-23-2023 Monocytes (Bld) [#/Vol] 0.5 10*3/uL Normal 0.0-0.8 [facility] Comment on above: Performed By: #### L IPASE, ALP, BILTD, ILYA #### [address] Automated eosinophil %Ordere d By: Curt Novoa on 08-23-2023 Eosinophils/100 WBC (Bld) 0.7 % Normal . [facility] Comment on above: Performed By: #### L IPASE, ALP, BILTD, ILYA #### [address] Automated eosinophil countOr dered By: Curt Novoa on 08-23-2023 Eosinophils (Bld) [#/Vol] 0.1 10*3/uL Normal 0.0-0.45 [facility] Comment on above: Performed By: #### L IPASE, ALP, BILTD, ILYA #### [facility] [address] Automated erythrocytes count in urine sediment (number/area)Ordered By: Curt Novoa on 08-23-2023 RBC Auto (Urine sed) [#/Area] 1-2 [HPF] 0-4 [facility] Automated leukocytes count i n urine sediment (number/area)Ordered By: Curt Novoa on 08-23-2023 WBC Auto (Urine sed) [#/Area] 0-1 [HPF] 0-4 [facility] Automated monocyte %Ordered By: Curt Novoa on 08-23-2023 Monocytes/100 WBC (Bld) 5.8 % Normal . [facility] Comment on above: Performed By: #### L IPASE, ALP, BILTD, ILYA #### [address] Automated neutrophil %Ordere d By: Curt Novoa on 08-23-2023 Neutrophils/100 WBC (Bld) 69.8 % Normal . [facility] Comment on above: Performed By: #### L IPASE, ALP, BILTD, ILYA #### [address] Automated urine color determ inationOrdered By: Curt Novoa on 08-23-2023 Color (U) Yellow Normal Yellow [facility] Comment on above: Order Comment: Name Collection Type:: Clean-Voided Midstream Performed By: #### C HC CBC, CMP #### [facility] [address] [place] [address] Bacterial blood cultureOrder ed By: Curt Novoa on 08-23-2023 Bacteria identified Cx Nom (Bld) NO GROWTH 5 DAYS [facility] Bacteria identified Cx Nom (Bld) NO GROWTH 5 DAYS [facility] Basic Metabolic Panelon 08-09 Creatinine Clr Calc Pharmacy 71.19 Normal [facility] Comment on above: Performed By: #### L IPASE, ALP, BILTD, ILYA #### [address] GFR/1.73 sq M.predicted MDRD (S/P/Bld) [Vol rate/Area] mL/min/{1.73_m2} Normal [facility] Comment on above: Performed By: #### L IPASE, ALP, BILTD, ILYA #### [address] Bilirubin Test strip Ql (U)O rdered By: Curt Novoa on 08-23-2023 Bilirubin Ql (U) Negative Negative [facility] Bilirubin.direct [Mass/volum e] in Serum or PlasmaOrdered By: Curt Novoa on 08-23-2023 Bilirubin.direct [Mass/Vol] 0.10 mg/dL 0.03-0.18 [facility] Bilirubin.total [Mass/volume ] in Serum or PlasmaOrdered By: Curt Novoa on 08-23-2023 Bilirubin [Mass/Vol] 0.4 mg/dL Normal 0.3-1.0 [facility] Comment on above: Performed By: #### L IPASE, ALP, BILTD, ILYA #### [address] BioFire Not Detectedon 08-22 BioFire Not Detected Not detected Normal Not Detecte [facility] Comment on above: Result Comment: This is a duplicate RP2.1 COVID (PCR) result to be used for statistical tracking purpose only. PERFORMED BY: [place] [address] PATHOLOGIST [employer] JUANY CLAUDIO M.D. Performed By: #### L IPASE, ALP, BILTD, ILYA #### [address] Blood Cultureon 08-23-2023 Bacteria identified Cx Nom (Bld) NO GROWTH 5 DAYS PERFORMED BY: [place] [address] PATHOLOGIST [employer] JUANY CLAUDIO M.D. Normal [facility] Comment on above: Performed By: #### C HC CBC, CMP #### [address] Bacteria identified Cx Nom (Bld) NO GROWTH 5 DAYS PERFORMED BY: [place] [address] PATHOLOGIST [employer] JUANY CLAUDIO M.D. Normal [facility] Comment on above: Performed By: #### L IPASE, ALP, BILTD, ILYA #### [address] COVID-19 Detected/Not Detect edOrdered By: Curt Novoa on 08-23-2023 SARS-CoV-2 (COVID-19) RNA KIRSTIN+non-probe Ql (Nph) Not detected Not Detecte [facility] Comment on above: This is a duplicate RP2.1 COVID (PCR) result to be used for statistical tracking purpose only. CT abdomen pelvis w conon CT abdomen pelvis w con [facility] [place] [address] [place] [address] CT Scan Report Signed Patient: Karolina Nicole MR#: [id number] : 1985 Acct:[id number] Age/Sex: 38 / F ADM Date: 08/23/23 Loc: ER Room: Type: [facility] ER Attending Dr: Copies to: Curt Novoa DO Ordering Provider: Curt Novoa DO Date of Service: 08/23/23 CT/CT abdomen pelvis w con: Abdominal Pain CT abdomen pelvis w con 08/23/2023 9:04 AM SIGNS AND SYMPTOMS: Right-sided abdominal pain, fever, recent cholecystectomy TECHNIQUE: Multidetector ct axial images of the abdomen and pelvis were obtained with IV contrast. Multiplanar reformats were performed and reviewed to further define anatomy and possible pathology. CT was performed with one or more of the following dose reduction techniques: Automated exposure control, adjustment of the mA and/or kV according to patient size, or use of iterative reconstruction technique. COMPARISON: 06/09/2023 FINDINGS: Lower Chest: Within normal limits. ABDOMEN: Liver: Within normal limits. Bile Ducts: Normal caliber. Gallbladder: Previously removed. There is a small amount of edema within the gallbladder fossa which presumably relates to recent cholecystectomy. Pancreas: Within normal limits. Spleen: Within normal limits. Adrenals: Within normal limits. Kidneys: Within normal limits. Pelvis: Reproductive Organs: No pelvic masses. There is a normal appendix in the right lower quadrant. Ureters: Within normal limits. Bladder: Within normal limits. Bowel: Normal caliber. Mesenteric Lymph Nodes: No enlarged mesenteric lymph nodes. Peritoneum: No ascites or free air, no fluid collection. Vessels: within normal limits Retroperitoneum: Within normal limits. Abdominal Wall: Within normal limits. Bones: Within normal limits. CT/CT abdomen pelvis w con IMPRESSION: No acute intra-abdominal pathology. Previously removed. There is a small amount of edema within the gallbladder fossa which presumably relates to recent cholecystectomy. Impression dictated by: Dorian Hopkins M.D.08/23/2023 11:33 AM Dictation Location: [place] [address] Transcribed By: ODALYS 08/23/23 1133 Dictated By: Dorian Hopkins II, MD 08/23/23 1124 Signed By: 08/23/23 1133 Normal [facility] Calcium [Mass/volume] in Ser um or PlasmaOrdered By: Curt Novoa on 08-23-2023 Calcium [Mass/Vol] 9.2 mg/dL Normal 8.6-10.3 [facility] Comment on above: Performed By: #### L IPASE, ALP, BILTD, ILYA #### [address] Carbon dioxide, total [Moles /volume] in Serum or PlasmaOrdered By: Curt Novoa on 08-23-2023 CO2 [Moles/Vol] 21.3 mmol/L Normal 21.0-31.0 [facility] Comment on above: Performed By: #### L IPASE, ALP, BILTD, ILYA #### [facility] [address] [place] [address] [place] Chloride [Moles/volume] in S dalia or PlasmaOrdered By: Curt Novoa on 08-23-2023 Chloride [Moles/Vol] 108 mmol/L High 98-107 [facility] Comment on above: Performed By: #### L IPASE, ALP, BILTD, ILYA #### [facility] [address] Complete Blood Count Auto Di ffon 08-23-2023 Mean Corpuscular HGB Conc 34.7 g/dL Normal 32.0-35.0 [facility] Comment on above: Performed By: #### L IPASE, ALP, BILTD, ILYA #### [address] Monocytes/100 WBC (Bld) 31.19 % High 0.00-20.00 [facility] Comment on above: Result Comment: For adults in ED, MDW > 20.0 may be associated with a higher risk of sepsis during the first 12 hrs of hospital admission Performed By: #### L IPASE, ALP, BILTD, ILYA #### [address] NRBC% 0.2 /100{WBC} Normal 0-0.5 [facility] Comment on above: Performed By: #### L IPASE, ALP, BILTD, ILYA #### [address] Creatinine [Mass/volume] in Serum or PlasmaOrdered By: Curt Novoa on 08-23-2023 Creatinine [Mass/Vol] 1.11 mg/dL Normal 0.60-1.20 [facility] Comment on above: Performed By: #### L IPASE, ALP, BILTD, ILYA #### [address] Dipstick and Microscopicon 0 08-23-2023 Appearance (U) Clear Normal Clear [facility] Comment on above: Order Comment: Name Collection Type:: Clean-Voided Midstream Performed By: #### C HC CBC, CMP #### [place] [address] [place] Bacteria,Urine None Seen Normal None Seen [facility] Comment on above: Order Comment: Name Collection Type:: Clean-Voided Midstream Performed By: #### C HC CBC, CMP #### [address] Bilirubin,Urine Negative Normal Negative [facility] Comment on above: Order Comment: Name Collection Type:: Clean-Voided Midstream Performed By: #### C HC CBC, CMP #### [facility] [address] [place] [id number] [facility] Glucose Ql (U) Normal Normal Normal [facility] Comment on above: Order Comment: Name Collection Type:: Clean-Voided Midstream Performed By: #### C HC CBC, CMP #### [facility] [address] [place] [id number] [place] Hyaline Casts,Urine 0-8 Normal 0-8 [facility] Comment on above: Order Comment: Name Collection Type:: Clean-Voided Midstream Performed By: #### C HC CBC, CMP #### [facility] [address] Ketones Ql (U) Negative Normal Negative [facility] Comment on above: Order Comment: Name Collection Type:: Clean-Voided Midstream Performed By: #### C HC CBC, CMP #### [address] Leukocyte esterase Test strip Ql (U) Negative Normal Negative [facility] Comment on above: Order Comment: Name Collection Type:: Clean-Voided Midstream Performed By: #### C HC CBC, CMP #### [place] [address] [place] Nitrite,Urine Negative Normal Negative [facility] Comment on above: Order Comment: Name Collection Type:: Clean-Voided Midstream Performed By: #### C HC CBC, CMP #### [facility] [address] [place] [id number] [place] Occult Blood,Urine Negative Normal Negative [facility] Comment on above: Order Comment: Name Collection Type:: Clean-Voided Midstream Performed By: #### C HC CBC, CMP #### [facility] [address] [place] [id number] [place] RBC,Urine 1-2 Normal 0-4 [facility] Comment on above: Order Comment: Name Collection Type:: Clean-Voided Midstream Performed By: #### C HC CBC, CMP #### [address] Specificy [place],Urine 1.021 Normal 1.001-1.030 [facility] Comment on above: Order Comment: Name Collection Type:: Clean-Voided Midstream Performed By: #### C HC CBC, CMP #### [address] Squamous Epithelial Cell,Urine 0-1 Normal 0-2 [facility] Comment on above: Order Comment: Name Collection Type:: Clean-Voided Midstream Performed By: #### C HC CBC, CMP #### [address] Urobilinogen,Urine Normal Normal Normal [facility] Comment on above: Order Comment: Name Collection Type:: Clean-Voided Midstream Performed By: #### C HC CBC, CMP #### [address] WBC LM.HPF (Urine sed) [#/Area] 0 /[HPF] Normal 0-4 [facility] Comment on above: Order Comment: Name Collection Type:: Clean-Voided Midstream Performed By: #### C HC CBC, CMP #### [address] Erythrocyte distribution wid th [Ratio] by Automated countOrdered By: Cutr Novoa on 08-23-2023 Erythrocyte distribution width (RBC) [Ratio] 12.5 % Normal 11.9-15.3 [facility] Comment on above: Performed By: #### L IPASE, ALP, BILTD, ILYA #### [address] Erythrocytes [#/volume] in B lood by Automated countOrdered By: Curt Novoa on 08-23-2023 RBC (Bld) [#/Vol] 3.97 10*6/uL Normal 3.60-5.00 [facility] Comment on above: Performed By: #### L IPASE, ALP, BILTD, ILYA #### [address] Glucose [Mass/volume] in Ser um or PlasmaOrdered By: Curt Novoa on 08-23-2023 Glucose [Mass/Vol] 102 mg/dL High 70-100 [facility] Comment on above: ADA recommended refe rence rangeRandom Glucose Reference Range is dependent on time and content of last meal. Glucose of more than 200 mg/dL in a nonstressed, ambulatory subject supports the diagnosis of Diabetes Mellitus. Result Comment: [place] om Glucose Reference Range is dependent on time and content of last meal. Glucose of more than 200 mg/dL in a nonstressed, ambulatory subject supports the diagnosis of Diabetes Mellitus. ADA recommended reference range Performed By: #### L IPASE, ALP, BILTD, ILYA #### [facility] [address] [place] [address] [place] HCG ( test) IA.rapi d Ql (U)Ordered By: Curt Novoa on 08-23-2023 HCG ( test) Ql (U) Negative [facility] HCG,Urineon 08-23-2023 Beta HCG ( test) Ql (U) Negative Normal [facility] Comment on above: Order Comment: Name Collection Type:: Clean-Voided Midstream Result Comment: PERF ORMED BY: [place] [address] PATHOLOGIST [employer] JUANY CLAUDIO M.D. Performed By: #### C HC CBC, CMP #### [facility] [address] [place] [address] Hematocrit [Volume Fraction] of Blood by Automated countOrdered By: Curt Novoa on 08-23-2023 Hematocrit (Bld) [Volume fraction] 35.7 % Normal 34.0-46.4 [facility] Comment on above: Performed By: #### L IPASE, ALP, BILTD, ILYA #### [facility] [address] [place] [address] [place] Hemoglobin [Mass/volume] in BloodOrdered By: Curt Novoa on 08-23-2023 Hemoglobin (Bld) [Mass/Vol] 12.4 g/dL Normal 11.8-15.4 [facility] Comment on above: Performed By: #### L IPASE, ALP, BILTD, ILYA #### [address] Hepatic Panelon 08-23-2023 Albumin [Mass/Vol] 4.2 g/dL Normal 3.5-5.7 [facility] Comment on above: Performed By: #### L IPASE, ALP, BILTD, ILYA #### [address] Bilirubin,Indirect 0.3 mg/dL Normal [facility] Comment on above: Performed By: #### L IPASE, ALP, BILTD, ILYA #### [address] Bilirubin.indirect [Mass/Vol] 0.10 mg/dL Normal 0.03-0.18 [facility] Comment on above: Performed By: #### L IPASE, ALP, BILTD, ILYA #### [address] INR in Platelet poor plasma by Coagulation assayOrdered By: Curt Novoa on 08-23-2023 INR Coag (PPP) [Relative time] 1.1 {INR} Normal [facility] Comment on above: INR Therapeutic Rang e A) Pre- and Peroperative OAT started two weeks before surgery. NOT HIP SURGERY: 1.5 - 2.5 HIP SURGERY: 2 - 3B) Primary and secondary prevention of venous THROMBOSIS: 2 - 3C) Active venous thrombosis, pulmonary embolismand prevention of recurrent venous thrombosis: 2 - 3D) Prevention of arterial thromboembolismincluding patients with mechanical heart valves: 3 - 4.5 Result Comment: INR Therapeutic Range A) Pre- and Peroperative OAT started two weeks before surgery. NOT HIP SURGERY: 1.5 - 2.5 HIP SURGERY: 2 - 3 B) Primary and secondary prevention of venous THROMBOSIS: 2 - 3 C) Active venous thrombosis, pulmonary embolism and prevention of recurrent venous thrombosis: 2 - 3 D) Prevention of arterial thromboembolism including patients with mechanical heart valves: 3 - 4.5 Performed By: #### L IPASE, ALP, BILTD, ILYA #### [address] Ketones Auto test strip (U) [Mass/Vol]Ordered By: Curt Novoa on 08-23-2023 Ketones (U) [Mass/Vol] Negative Negative [facility] Laboratory - UrinalysisOrder ed By: Curt Novoa on 08-23-2023 Hyaline casts LM Ql (Urine sed) 0-8 [LPF] 0-8 [facility] Lactate [Moles/volume] in Se rum or PlasmaOrdered By: Curt Novoa on 08-23-2023 Lactate [Moles/Vol] 1.0 mmol/L Normal 0.5-2.2 [facility] Comment on above: Result Comment: PERF ORMED BY: [place] [address] PATHOLOGIST FLARE MAKER JUANY CLAUDIO M.D. Performed By: #### L IPASE, ALP, BILTD, ILYA #### [facility] [address] [place] [address] Leukocytes [#/volume] correc nisha for nucleated erythrocytes in Blood by Automated counOrdered By: Curt Novoa on 08-23-2023 WBC corrected for nucl RBC Auto (Bld) [#/Vol] 8.1 10*3/uL 3.8-11.6 [facility] Leukocytes [#/volume] in Blo od by Automated countOrdered By: Curt Novoa on 08-23-2023 WBC (Bld) [#/Vol] 8.1 10*3/uL Normal 3.8-11.6 [facility] Comment on above: Performed By: #### L IPASE, ALP, BILTD, ILYA #### [facility] [address] [id number] [place] Lipase [Enzymatic activity/v olume] in Serum or PlasmaOrdered By: Curt Novoa on 08-23-2023 Lipase [Catalytic activity/Vol] 30.0 U/L Normal 11.0-82.0 [facility] Comment on above: Result Comment: PERF ORMED BY: [address] [place] [address] PATHOLOGIST [employer] JUANY CLAUDIO M.D. Performed By: #### L IPASE, ALP, BILTD, ILYA #### [address] Lymphocytes [#/volume] in Bl ood by Automated countOrdered By: Curt Novoa on 08-23-2023 Lymphocytes (Bld) [#/Vol] 1.9 10*3/uL Normal 1.00-4.8 [facility] Comment on above: Performed By: #### L IPASE, ALP, BILTD, ILYA #### [address] Lymphocytes/100 leukocytes i n Blood by Automated countOrdered By: Curt Novoa on 08-23-2023 Lymphocytes/100 WBC (Bld) 23.3 % Normal . [facility] Comment on above: Performed By: #### L IPASE, ALP, BILTD, ILYA #### [place] [address] [place] MCH [Entitic mass] by Automa nisha countOrdered By: Curt Novoa on 08-23-2023 MCH (RBC) [Entitic mass] 31.2 pg Normal 24.7-34.3 [facility] Comment on above: Performed By: #### L IPASE, ALP, BILTD, ILYA #### [address] MCHC Auto (RBC) [Mass/Vol]Or dered By: Curt Novoa on 08-23-2023 MCHC (RBC) [Mass/Vol] 34.7 g/dL 32.0-35.0 [facility] MCV [Entitic volume] by Auto mated countOrdered By: Curt Novoa on 08-23-2023 MCV (RBC) [Entitic vol] 89.9 fL Normal 80-100 [facility] Comment on above: Performed By: #### L IPASE, ALP, BILTD, ILYA #### [address] Monocyte distribution width [Entitic volume] in Blood by AutomatedOrdered By: Curt Novoa on 08-23-2023 Monocyte distribution width Auto (Bld) [Entitic vol] 31.19 % 0.00-20.00 [facility] Comment on above: For adults in ED, MD W > 20.0 may be associated with a higher risk of sepsis during the first 12 hrs of hospital admission Neutrophils [#/volume] in Bl ood by Automated countOrdered By: Curt Novoa on 08-23-2023 Neutrophils (Bld) [#/Vol] 5.6 10*3/uL Normal 1.8-7.7 [facility] Comment on above: Performed By: #### L IPASE, ALP, BILTD, ILYA #### [facility] [address] Nitrite Test strip Ql (U)Ord ered By: Curt Novoa on 08-23-2023 Nitrite Ql (U) Negative Negative [facility] No Panel InformationOrdered By: Curt Novoa on 08-23-2023 Estimated GFR (CKD-EPI) > 60.0 mL/Min [facility] Creatinine Clearance (Chem 71.19 [facility] Nucleated erythrocytes [Pres ence] in Blood by Automated countOrdered By: Curt Novoa on 08-23-2023 Nucleated RBC Auto Ql (Bld) 0.2 /100{WBC} 0-0.5 [facility] Partial Thromboplastin Timeo n 08-23-2023 aPTT Coag (Bld) [Time] 28.4 s Normal 25.1-36.5 [facility] Comment on above: Result Comment: A he matocrit value greater than 55% may lead to inaccurate results in coagulation testing. Patients having hematocrit values >55% require a special collection tube for coagulation studies. Please contact the laboratory at [phone] for redraw instructions. PERFORMED BY: [facility] [address] [id number] PATHOLOGIST [employer]KER JUANY CLAUDIO M.D. Performed By: #### L IPASE, ALP, BILTD, ILYA #### [facility] [address] [id number] [facility] Platelet mean volume [Entiti c volume] in Blood by Automated countOrdered By: Curt Novoa on 08-23-2023 Platelet mean volume (Bld) [Entitic vol] 10.0 fL Normal 6.3-10.7 [facility] Comment on above: Performed By: #### L IPASE, ALP, BILTD, ILYA #### [facility] [address] Platelets [#/volume] in Bloo d by Automated countOrdered By: Curt Novoa on 08-23-2023 Platelets (Bld) [#/Vol] 59 10*3/uL Low 150-450 [facility] Comment on above: Performed By: #### L IPASE, ALP, BILTD, ILYA #### [facility] [address] [place] [address] Potassium [Moles/volume] in Serum or PlasmaOrdered By: Curt Novoa on 08-23-2023 Potassium [Moles/Vol] 4.1 mmol/L Normal 3.5-5.1 [facility] Comment on above: Performed By: #### L IPASE, ALP, BILTD, ILYA #### [address] Protein [Mass/volume] in Ser um or PlasmaOrdered By: Curt Novoa on 08-23-2023 Protein [Mass/Vol] 6.9 g/dL Normal 6.4-8.9 [facility] Comment on above: Performed By: #### L IPASE, ALP, BILTD, ILYA #### [facility] [address] [place] [address] Prothrombin time (PT)Ordered By: Curt Novoa on 08-23-2023 PT Coag (PPP) [Time] 12.3 s Normal 9.0-12.9 [facility] Comment on above: A hematocrit value g reater than 55% may lead to inaccurate results in coagulation testing. Patients having hematocrit values >55% require a special collection tube for coagulation studies. Please contact the laboratory at [phone] for redraw instructions. Result Comment: A he matocrit value greater than 55% may lead to inaccurate results in coagulation testing. Patients having hematocrit values >55% require a special collection tube for coagulation studies. Please contact the laboratory at [phone] for redraw instructions. Performed By: #### L JOY THOMPSON BILTD, AMY #### [address] Quick Strepon 08-23-2023 Quick Strep Streptococcus pyogen es Ag [Presence] in Throat by Rapid immunoassay Negative for Group A Strep Antigen Note 1 NOTE 2 Results are those of a screening test. NOTE 3 If clinically indicated please order a culture. NOTE 4 NOTE 5 Reference range = Negative PERFORMED BY: [place] [address] PATHOLOGIST FLARE MAKER JUANY CLAUDIO M.D. Normal [facility] Comment on above: Performed By: #### L JOY THOMPSON BILTD, AMY #### [address] Respiratory (Upper) Panel, P CRon 08-23-2023 Respiratory (Upper) Panel, PCR Adenovirus Not detected Bordetella parapertussis Not detected Chlamydia pneumoniae Not detected Coronavirus 229E Not detected Coronavirus HKU1 Not detected Coronavirus NL63 Not detected Coronavirus OC43 Not detected Influenza A Not detected Influenza B Not detected Human Metapneumovirus Not detected Mycoplasma pneumoniae Not detected Parainfluenza Virus 1 Not detected Parainfluenza Virus 2 Not detected Parainfluenza Virus 3 Not detected Parainfluenza Virus 4 Not detected Bordetella pertussis-ptxP Not detected Human Rhino/Enterovirus Not detected Resp. Syncytial Virus Not detected COVID-19 Detected/Not Detected Not detected Blank Space ---- FLUA TEST INCLUDES Influenza A tests for the following clinically FLUA TEST INCLUDES significant subtypes: FLUA TEST INCLUDES - Influenza A FLUA TEST INCLUDES - Influenza A H1 FLUA TEST INCLUDES - Influenza A H1 2009 FLUA TEST INCLUDES - Influenza A H3 Blank Space ---- PERFORMED BY: [place] [address] PATHOLOGIST FLARE MAKER JUANY CLAUDIO M.D. Normal [facility] Comment on above: Performed By: #### L IPASE, ALP, BILTD, ILYA #### [address] Respiratory pathogens DNA an d RNA panel - Nasopharynx by KIRSTIN with non-probe detectionOrdered By: Curt Novoa on 08-23-2023 Respiratory pathogens DNA and RNA panel KIRSTIN+non-probe (Nph) [facility] Serum globulin measurement b y calculation (mass/volume)Ordered By: Curt Novoa on 08-23-2023 Globulin (S) [Mass/Vol] 2.7 g/dL [facility] Comment on above: Performed By: #### L IPASE, ALP, BILTD, ILYA #### [address] Serum or plasma albumin/glob ulin mass ratioOrdered By: Curt Novoa on 08-23-2023 Albumin/Globulin [Mass ratio] 1.6 {ratio} [facility] Comment on above: Performed By: #### L IPASE, ALP, BILTD, ILYA #### [address] Serum or plasma anion gap de terminationOrdered By: Curt Novoa on 08-23-2023 Anion gap [Moles/Vol] 12.8 mmol/L Normal 6.0-15.0 [facility] Comment on above: Performed By: #### L IPASE, ALP, BILTD, ILYA #### [place] [address] Serum or plasma non-glucuron idated bilirubin measurement (mass/volume)Ordered By: Curt Novoa on 08-23-2023 Bilirubin.indirect [Mass/Vol] 0.3 mg/dL [facility] Sodium [Moles/volume] in Ser um or PlasmaOrdered By: Curt Novoa on 08-23-2023 Sodium [Moles/Vol] 138 mmol/L Normal 136-145 [facility] Comment on above: Performed By: #### L IPASE, ALP, BILTD, ILYA #### [address] Specific gravity Auto test s trip (U) [Rel density]Ordered By: Curt Novoa on 08-23-2023 Specific gravity (U) [Rel density] 1.021 1.001-1.030 [facility] Squamous epithelial cells de tection in urine sediment by light microscopyOrdered By: Curt Novoa on 08-23-2023 Epithelial cells.squamous LM Ql (Urine sed) 0-1 [HPF] 0-2 [facility] Streptococcus pyogenes antig en detectionOrdered By: Curt Novoa on 08-23-2023 S. pyogenes Ag Ql (Unsp spec) [facility] Urea nitrogen [Mass/volume] in Serum or PlasmaOrdered By: Curt Novoa on 08-23-2023 Urea nitrogen [Mass/Vol] 12 mg/dL Normal 7-25 [facility] Comment on above: Performed By: #### L IPASE, ALP, BILTD, ILYA #### [facility] [address] [place], [place] [id number] [facility] Urine bacteria detection by automated methodOrdered By: Curt Novoa on 08-23-2023 Bacteria Auto Ql (U) None seen None Seen [facility] Urine clarity by refractomet ry automatedOrdered By: Curt Novoa on 08-23-2023 Clarity Refractometry automated (U) Clear Clear [facility] Urine glucose measurement by automated test strip (mass/volume)Ordered By: Curt Novoa on 08-23-2023 Glucose Auto test strip (U) [Mass/Vol] Normal mg/dL Normal [facility] Urine hemoglobin detection b y automated test stripOrdered By: Curt Novoa on 08-23-2023 Hemoglobin Auto test strip Ql (U) Negative Negative [facility] Urine leukocyte esterase det ection by automated test stripOrdered By: Curt Novoa on 08-23-2023 Leukocyte esterase Auto test strip Ql (U) Negative Negative [facility] Urine pH measurement by auto mated test stripOrdered By: Curt Novoa on 08-23-2023 pH (U) 7.5 [pH] Normal 5.0-9.0 [facility] Comment on above: Order Comment: Name Collection Type:: Clean-Voided Midstream Performed By: #### C HC CBC, CMP #### [address] Urine protein measurement by automated test strip (mass/volume)Ordered By: Curt Novoa on 08-23-2023 Protein (U) [Mass/Vol] 100 mg/dL High Negative [facility] Comment on above: Order Comment: Name Collection Type:: Clean-Voided Midstream Performed By: #### C HC CBC, CMP #### [address] Urobilinogen Auto test strip (U) [Mass/Vol]Ordered By: Curt Novoa on 08-23-2023 Urobilinogen (U) [Mass/Vol] Normal mg/dL Normal [facility] XR chest 1V portableon 08-22 XR chest 1V portable [facility] [place] [address] XRay Report Signed Patient: Karolina Nicole MR#: [id number] : 1985 Acct:[id number] Age/Sex: 38 / F ADM Date: 08/23/23 Loc: ER Room: Type: [facility] ER Attending Dr: Copies to: Curt Novoa DO Ordering Provider: Curt Novoa DO Date of Service: 08/23/23 XR/XR chest 1V portable: Abdominal Pain XR chest 1V portable 08/23/2023 9:04 AM SIGNS AND SYMPTOMS: Fever, right abdominal pain, status post cholecystectomy PROTOCOL: Frontal radiograph of the chest COMPARISON: 05/06/2023 FINDINGS: The trachea is midline. The heart and mediastinal structures are within normal limits. The lung parenchyma is clear. The bony thorax is intact. XR/XR chest 1V portable IMPRESSION: No acute cardiopulmonary pathology. Impression dictated by: Dorian Hopkins M.D.08/23/2023 9:53 AM Dictation Location: [place] [address] Transcribed By: ODALYS 08/23/23952 Dictated By: Dorian Hopkins II, MD 08/23/23952 Signed By: 08/23/23952 Normal [facility] Alkaline phosphatase [Enzyma tic activity/volume] in Serum or PlasmaOrdered By: Bairon Duran on 07-29-2023 ALP [Catalytic activity/Vol] 53 U/L Normal 34-104 [facility] Comment on above: Performed By: #### L IPASE, ALP, BILTD, ILYA #### [facility] [address] Amphetamine Screen Ql (U)Ord ered By: Bairon Duran on 07-29-2023 Amphetamines Ql (U) Negative Negative [facility] Amylase [Enzymatic activity/ volume] in Serum or PlasmaOrdered By: Bairon Duran on 07-29-2023 Amylase [Catalytic activity/Vol] 43 U/L Normal 29-103 [facility] Comment on above: Performed By: #### L IPASE, ALP, BILTD, ILYA #### [facility] [address] Barbiturates [Presence] in U rine by Screen methodOrdered By: Bairon Duran on 07-29-2023 Barbiturates Screen Ql (U) Negative Negative [facility] Benzodiazepines Screen Ql (U )Ordered By: Bairon Duran on 07-29-2023 Benzodiazepines Ql (U) Negative Negative [facility] Benzoylecgonine [Presence] i n Urine by Screen methodOrdered By: Bairon Duran on 07-29-2023 Benzoylecgonine Screen Ql (U) Negative Negative [facility] Bilirubin, Total and Directo n 07-29-2023 Bilirubin,Indirect 0.5 mg/dL Normal [facility] Comment on above: Performed By: #### L IPASE, ALP, BILTD, ILYA #### [facility] [address] Bilirubin.indirect [Mass/Vol] 0.10 mg/dL Normal 0.03-0.18 [facility] Comment on above: Performed By: #### L IPASE, ALP, BILTD, ILYA #### [facility] [address] Bilirubin.direct [Mass/volum e] in Serum or PlasmaOrdered By: Bairon Duran on 07-29-2023 Bilirubin.direct [Mass/Vol] 0.10 mg/dL 0.03-0.18 [facility] Bilirubin.total [Mass/volume ] in Serum or PlasmaOrdered By: Bairon Duran on 07-29-2023 Bilirubin [Mass/Vol] 0.6 mg/dL Normal 0.3-1.0 [facility] Comment on above: Performed By: #### L IPASE, ALP, BILTD, ILYA #### [address] Cannabinoids [Presence] in U rine by Screen methodOrdered By: Bairon Duran on 07-29-2023 Cannabinoids Screen Ql (U) Positive Negative [facility] Comment on above: These are unconfirme d results and should not be used for legal purposes. Drug Cut-Off Concentration: AMPH 1000 ng/mL MALIK 200 ng/mL DMITRY 200 ng/mL COCM 300 ng/mL OP 300 ng/mL PCP 25 ng/mL THC 20 ng/mL Drug Screen,Urineon 07-29-19 24 Amphetamine Screen,Urine Negative Normal Negative [facility] Comment on above: Performed By: #### L IPASE, ALP, BILTD, ILYA #### [address] Barbiturate Screen,Urine Negative Normal Negative [facility] Comment on above: Performed By: #### L IPASE, ALP, BILTD, ILYA #### [address] Benzodiazepines Screen,Urine Negative Normal Negative [facility] Comment on above: Performed By: #### L IPASE, ALP, BILTD, ILYA #### [address] Cannabinoid Screen,Urine Positive High Negative [facility] Comment on above: Result Comment: Thes e are unconfirmed results and should not be used for legal purposes. Drug Cut-Off Concentration: AMPH 1000 ng/mL MALIK 200 ng/mL DMITRY 200 ng/mL COCM 300 ng/mL OP 300 ng/mL PCP 25 ng/mL THC 20 ng/mL PERFORMED BY: [place] [address] PATHOLOGIST FLARE MAKER JUANY CLAUDIO M.D. Performed By: #### L IPASE, ALP, BILTD, ILYA #### [address] Cocaine Screen,Urine Negative Normal Negative [facility] Comment on above: Performed By: #### L IPASE, ALP, BILTD, ILYA #### [address] Opiate Screen,Urine Negative Normal Negative [facility] Comment on above: Performed By: #### L IPASE, ALP, BILTD, ILYA #### [address] Phencyclidine Screen,Urine Negative Normal Negative [facility] Comment on above: Performed By: #### L IPASE, ALP, BILTD, ILYA #### [address] HCG ( test) IA.rapi d Ql (U)Ordered By: Shahid Voss on 07-29-2023 HCG ( test) Ql (U) Negative [facility] HCG,Urineon 07-29-2023 Beta HCG ( test) Ql (U) Negative Normal [facility] Comment on above: Result Comment: PERF ORMED BY: [place] [address] PATHOLOGIST FLARE MAKER JUANY CLAUDIO M.D. Performed By: #### C HC CBC, CMP #### [facility] [address] Jose Angel 07-29-2023 L Specimen: Received: 07/29/23 Status: ESTELLA Almaraz Num: [id number] Spec Type: Surgical Subm Dr: Bairon Duran DO Tissues: A Gallbladder (GALLBLADDER) Procedures: HE, Gross/Micro L3 Age/ Patient Sex Location Account Attending Physician CoreyKarolina N 38/F CT [id number] Bairon Duran DO SPEC NUM: [id number] RECD: 07/29/23 STATUS: ESTELLA ALMARAZ NUM: [id number] GLORY: 07/29/23 DR: Bairon Duran DO ENTERED: 07/29/[address]: SPEC TYPE: Surgical DEPT: S ORDERED: HE, Gross/Micro L3 ORDERED: HE, Gross/Micro L3 Pathological Diagnosis Gallbladder, Cholecystectomy: Chronic Cholecystitis. Clinical Information Cholelithiasis Gross Description Received in formalin labeled with the patient's name, date of and gallbladder is a 7.4 x 2.2 x 1.3 cm intact gallbladder with a purple-pink, focally hyperemic serosa. The average wall thickness is 0.3 cm. The lumen contains gritty, red-beckman bile. No formed choleliths are identified. The mucosa is beckman-red, granular. . Performance Instructor sections are submitted in one cassette labeled A1. CPT Codes 23997 Specimen: [id number] Received: 07/29/23 Status: ESTELLA Almaraz Num: [id number] Spec Type: Surgical Subm Dr: Bairon Duran, Tissues: A Gallbladder (GALLBLADDER) Procedures: HE, Gross/[place]er[place] L3 Patient: Karolina Nicole [id number] (Continued) Signed (signature on file) Adelita Lee MD 07/30/23 1440 Normal [facility] Lipase [Enzymatic activity/v olume] in Serum or PlasmaOrdered By: Bairon Duran on 07-29-2023 Lipase [Catalytic activity/Vol] 27.0 U/L Normal 11.0-82.0 [facility] Comment on above: Result Comment: PERF ORMED BY: [facility] [address] [place] [address] PATHOLOGIST FLARE MAKER JUANY CLAUDIO M.D. Performed By: #### L IPASE, ALP, BILTD, ILYA #### [facility] [address] Opiates [Presence] in Urine by Screen methodOrdered By: Bairon Duran on 07-29-2023 Opiates Screen Ql (U) Negative Negative [facility] Phencyclidine Screen Ql (U)O rdered By: Bairon Duran on 07-29-2023 Phencyclidine Ql (U) Negative Negative [facility] Serum or plasma non-glucuron idated bilirubin measurement (mass/volume)Ordered By: Bairon Duran on 07-29-2023 Bilirubin.indirect [Mass/Vol] 0.5 mg/dL [facility] BASIC METABOLIC PANELon - Anion gap [Moles/Vol] 12 mmol/L Normal 10-20 [facility] Comment on above: Performed By: #### C H8 #### [facility] [address] [place] [address], Calcium [Mass/Vol] 9.9 mg/dL Normal 8.6-10.3 [facility] Comment on above: Performed By: #### C H8 #### [facility] [address] [place] [address], Chloride [Moles/Vol] 105 mmol/L Normal 98-107 [facility] Comment on above: Performed By: #### C H8 #### [facility] [address] [place] [address], CO2 [Moles/Vol] 26 mmol/L Normal 21-31 [facility] Comment on above: Performed By: #### C H8 #### [facility] [address] [place] [address], Creatinine [Mass/Vol] 0.92 mg/dL Normal 0.60-1.20 [facility] Comment on above: Performed By: #### C H8 #### [facility] [address] [place] [address], ESTIMATED GFR (CKD-EPI) 82 mL/min/1.73sqm Normal >=60 [facility] Comment on above: Result Comment: 2020 CKD EPI Equation using Creatinine without Race Comment: Estimated glomerular filtration rate (eGFR) is calculated without a race coefficient. Values should be interpreted in the context of the patient's full clinical presentation. Reference: 1. Quinn Martin, Selene Greenwood, Cynthia HERRING, et al.. A Unifying Approach for GFR Estimation: Recommendations of the NKF-ASN Task Force on Reassessing the Inclusion of Race in Diagnosing Kidney Disease. [place] Journal of Kidney Diseases 202;79(2):268-88.e1. 2. N Engl J Med 2020 Vol. 385 Issue 19 Pages 8240-0574 Performed By: #### C H8 #### [facility] [address] [place] [address], Glucose [Mass/Vol] 91 mg/dL Normal 74-109 [facility] Comment on above: Performed By: #### C H8 #### [facility] [address] [place], [place], Potassium [Moles/Vol] 4.0 mmol/L Normal 3.5-5.0 [facility] Comment on above: Performed By: #### C H8 #### [facility] [address] [place] [address], Sodium [Moles/Vol] 139 mmol/L Normal 136-145 [facility] Comment on above: Performed By: #### C H8 #### [facility] [address] [place], [place], Urea nitrogen [Mass/Vol] 14 mg/dL Normal 7-25 [facility] Comment on above: Performed By: #### C H8 #### [facility] [address] [place] [address], Basic metabolic 2000 panelon 07-09-2023 Anion gap [Moles/Vol] 12 mmol/L 10 - 20 [facility] Calcium [Mass/Vol] 9.9 mg/dL 8.6 - 10. 3 mg/dL [facility] Chloride [Moles/Vol] 105 mmol/L 98 - 10 7 mmol/L [facility] CO2 [Moles/Vol] 26 mmol/L 21 - 31 mmol/L [facility] Creatinine [Mass/Vol] 0.92 mg/dL 0.60 - 1.20 mg/dL [facility] GFR/1.73 sq M.predicted CKD-EPI (S/P/Bld) [Vol rate/Area] 82 - PINF [facility] Comment on above: 2020 CKD EPI Equatio n using Creatinine without Race Comment: Estimated glomerular filtration rate (eGFR) is calculated without a race coefficient. Values should be interpreted in the context of the patient's full clinical presentation. Reference: 1. Quinn aMrtin, Selene M, Cynthia HERRING, et al.. A Unifying Approach for GFR Estimation: Recommendations of the NKF-ASN Task Force on Reassessing the Inclusion of Race in Diagnosing Kidney Disease. [place] Journal of Kidney Diseases 2021;79(2):268-88.e1. 2. N Engl J Med 2020 Vol. 385 Issue 19 Pages 2483-0890 Glucose [Mass/Vol] 91 mg/dL 74 - 109 mg/dL [facility] Interpretation and review of laboratory results Normal [facility] Potassium [Moles/Vol] 4.0 mmol/L 3.5 - 5.0 mmol/L [facility] Sodium [Moles/Vol] 139 mmol/L 136 - 145 mmol/L [facility] Urea nitrogen [Mass/Vol] 14 mg/dL 7 - 25 mg/dL [facility] CT FACE SOFT TISSUE W/CONTRA STon 07-09-2023 CT FACE SOFT TISSUE W/CONTRAST EXAMINATION: CT FACE SOFT TISSUE W/CONTRAST 07/09/2023 06:23 PM CLINICAL HISTORY: left sided jaw pain. ?fx without trauma? per outside xray ASSOCIATED DIAGNOSIS: left sided jaw pain. ?fx without trauma? per outside xray ORDERING PROVIDER: [employer] NOTE: COMPARISON: None TECHNIQUE: Thin isotropic axial images were obtained through the maxillofacial area with intravenous contrast. 2D sagittal and coronal reconstructions were obtained from the axial data. Before infusion of intravenous contrast, radiology personnel investigated the possibility of an allergic history and of any history of reaction to iodinated contrast material. Contrast Protocol: Omnipaque 350 [>or =100lb] 75 ml [<100 lb] 1 ml per 1 lb. INTRA-PROCEDURE MEDS: iohexol (OMNIPAQUE) 350 MG/ML injection 75 mL Route: Intravenous Push FINDINGS: Mandible and dentition: No subperiosteal abscess. The mandible is intact without fracture. Orbits: No visible inflammation. Paranasal sinuses: Mild paranasal sinus mucosal thickening. Small left mastoid effusion. Vasculature: No evidence of acute thrombosis. Lymph nodes: No pathologically enlarged, necrotic, or otherwise abnormal nodes. Aerodigestive tract: No suspicious mass lesion. Other osseous structures: No acute-appearing fracture. There is minimal undulation along the bilateral nasal sutures which may relate to prior injury. There is no associated soft tissue swelling to suggest an acute fracture. Included intracranial contents: Noncontributory. IMPRESSION: 1. No acute facial fracture. 2. Mild paranasal sinus disease with small left mastoid effusion. MACRO: None Normal [facility] CT Maxillofacial region W co ntrast IVOrdered By: Sis Naqvi on 07-09-2023 CT DLP 313.5 (mGy.cm) [facility] Work Phone: CT Series Head [facility] Work Phone: CTDI VOL 16.3 (mGy) [facility] Work Phone: PHANTOM TYPE IEC Head Dosimetry Phantom [facility] Work Phone: [facility] Work Phone: CT Maxillofacial region W co ntrast Linus 07-09-2023 EXAMINATION: CT FACE SOFT TISSUE W/CONTRAST 07/09/2023 06:23 PM CLINICAL HISTORY: left sided jaw pain. ?fx without trauma? per outside xray ASSOCIATED DIAGNOSIS: left sided jaw pain. ?fx without trauma? per outside xray ORDERING PROVIDER: [employer] NOTE: COMPARISON: None TECHNIQUE: Thin isotropic axial images were obtained through the maxillofacial area with intravenous contrast. 2D sagittal and coronal reconstructions were obtained from the axial data. Before infusion of intravenous contrast, radiology personnel investigated the possibility of an allergic history and of any history of reaction to iodinated contrast material. Contrast Protocol: Omnipaque 350 [>or =100lb] 75 ml [<100 lb] 1 ml per 1 lb. INTRA-PROCEDURE MEDS: iohexol (OMNIPAQUE) 350 MG/ML injection 75 mL Route: Intravenous Push FINDINGS: Mandible and dentition: No subperiosteal abscess. The mandible is intact without fracture. Orbits: No visible inflammation. Paranasal sinuses: Mild paranasal sinus mucosal thickening. Small left mastoid effusion. Vasculature: No evidence of acute thrombosis. Lymph nodes: No pathologically enlarged, necrotic, or otherwise abnormal nodes. Aerodigestive tract: No suspicious mass lesion. Other osseous structures: No acute-appearing fracture. There is minimal undulation along the bilateral nasal sutures which may relate to prior injury. There is no associated soft tissue swelling to suggest an acute fracture. Included intracranial contents: Noncontributory. IMPRESSION: 1. No acute facial fracture. 2. Mild paranasal sinus disease with small left mastoid effusion. MACRO: None RADIOLOGY Sis Naqvi, DO - 07/09/2023 EXAMINATION: CT FACE SOFT TISSUE W/CONTRAST 07/09/2023 06:23 PM CLINICAL HISTORY: left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 Cristina on 06-09-2023 Leukocyte esterase Auto test strip Ql (U) Negative Negative [facility] Urine pH measurement by auto mated test stripOrdered By: Nikhil Cristina on 06-09-2023 pH (U) 8.0 [pH] Normal 5.0-9.0 [facility] Comment on above: Order Comment: Name Collection Type:: Clean-Voided Midstream Performed By: #### L IPASE, ALP, BILTD, ILYA #### [address] Urobilinogen Auto test strip (U) [Mass/Vol]Ordered By: Nikhil Cristina on 06-09-2023 Urobilinogen (U) [Mass/Vol] Normal mg/dL Normal [facility] COVID CepheidOrdered By: Kathy chaparro Sommer on 05-06-2023 SARS-CoV-2 (COVID-19) Ab IA Ql Negative Negative [facility] Comment on above: This is a duplicate [employer] Xpert Xpress CoV-2/Flu/RSV Plus RNA by RT-PCR result to be used for statistical tracking purpose only. SARS-CoV-2 (COVID-19) RNA KIRSTIN+probe Ql (Unsp spec) [facility] SARS-CoV-2 (COVID-19) RNA KIRSTIN+probe Ql (Unsp spec) [facility] Alanine aminotransferase [En zymatic activity/volume] in Serum or PlasmaOrdered By: Lisa Johns on 11-25-2022 ALT [Catalytic activity/Vol] 21 U/L 7-52 [facility] Albumin [Mass/volume] in Ser um or Plasma by Bromocresol green (BCG) dye binding methoOrdered By: Lisa Johns on 11-25-2022 Albumin BCG dye [Mass/Vol] 4.1 g/dL 3.5-5.7 [facility] Alkaline phosphatase [Enzyma tic activity/volume] in Serum or PlasmaOrdered By: Lisa Johns on 11-25-2022 ALP [Catalytic activity/Vol] 57 U/L 34-104 [facility] Aspartate aminotransferase [ Enzymatic activity/volume] in Serum or PlasmaOrdered By: Lisa Johns on 11-25-2022 AST [Catalytic activity/Vol] 22 U/L 13-39 [facility] Basophils Auto (Bld) [#/Vol] Ordered By: Lisa Johns on 11-25-2022 Basophils (Bld) [#/Vol] 0.0 10*3/uL 0.0-0.2 [facility] Basophils/100 WBC Auto (Bld) Ordered By: Lisa Johns on 11-25-2022 Basophils/100 WBC (Bld) 0.4 % . [facility] Bilirubin.total [Mass/volume ] in Serum or PlasmaOrdered By: Lisa Johns on 11-25-2022 Bilirubin [Mass/Vol] 0.4 mg/dL 0.3-1.0 [facility] C reactive protein [Mass/vol ume] in Serum or Plasma by High sensitivity methodOrdered By: Lisa Johns on 11-25-2022 CRP High sensitivity method [Mass/Vol] 3.1 mg/L 0.0-0.9 [facility] Comment on above: Cardiovascular Risk Classification (AHA/CDC)hsCRP < 1.0 mg/l low relative risk for CVDhsCRP 1.0-3.0 mg/l average relative risk for CVDhsCRP > 3.0 mg/l high relative risk for CVDhsCRP > 7.5 mg/l active inflammation*Two results two weeks apart and averaged provide a morestable estimate of hsCRP level.*hsCRP levels > 7.5 mg/l may suggest infection that canlimit the use of this marker for estimation of CVD risk. Calcium [Mass/volume] in Ser um or PlasmaOrdered By: Lisa Johns on 11-25-2022 Calcium [Mass/Vol] 8.8 mg/dL 8.6-10.3 [facility] Carbon dioxide, total [Moles /volume] in Serum or PlasmaOrdered By: Lisa Johns on 11-25-2022 CO2 [Moles/Vol] 18.9 mmol/L 21.0-31.0 [facility] Chloride [Moles/volume] in S dalia or PlasmaOrdered By: Lisa Johns on 11-25-2022 Chloride [Moles/Vol] 111 mmol/L 98-107 [facility] Creatinine [Mass/volume] in Serum or PlasmaOrdered By: Lisa Johns on 11-25-2022 Creatinine [Mass/Vol] 0.98 mg/dL 0.60-1.20 [facility] Eosinophils Auto (Bld) [#/Vo l]Ordered By: Lisa Johns on 11-25-2022 Eosinophils (Bld) [#/Vol] 0.1 10*3/uL 0.0-0.45 [facility] Eosinophils/100 WBC Auto (Bl d)Ordered By: Lisa Johns on 11-25-2022 Eosinophils/100 WBC (Bld) 3.2 % . [facility] Erythrocyte distribution wid th Auto (RBC) [Ratio]Ordered By: Lisa Johns on 11-25-2022 Erythrocyte distribution width (RBC) [Ratio] 12.5 % 11.9-15.3 [facility] Erythrocyte sedimentation ra te by Photometric methodOrdered By: Lisa Johns on 11-25-2022 ESR Photometric method (Bld) [Velocity] 1 mm/hr 0-19 [facility] Globulin Calc (S) [Mass/Vol] Ordered By: Lisa Johns on 11-25-2022 Globulin (S) [Mass/Vol] 2.0 g/dL [facility] Glucose [Mass/volume] in Ser um or PlasmaOrdered By: Lisa Johns on 11-25-2022 Glucose [Mass/Vol] 116 mg/dL 70-100 [facility] Comment on above: ADA recommended refe rence rangeRandom Glucose Reference Range is dependent on time and content of last meal. Glucose of more than 200 mg/dL in a nonstressed, ambulatory subject supports the diagnosis of Diabetes Mellitus. Hematocrit Auto (Bld) [Volum e fraction]Ordered By: Lisa Johns on 11-25-2022 Hematocrit (Bld) [Volume fraction] 38.1 % 34.0-46.4 [facility] Hemoglobin [Mass/volume] in BloodOrdered By: Lisa Johns on 11-25-2022 Hemoglobin (Bld) [Mass/Vol] 13.2 g/dL 11.8-15.4 [facility] Leukocytes [#/volume] correc nisha for nucleated erythrocytes in Blood by Automated counOrdered By: Lisa Johns on 11-25-2022 WBC corrected for nucl RBC Auto (Bld) [#/Vol] 4.4 10*3/uL 3.8-11.6 [facility] Lymphocytes Auto (Bld) [#/Vo l]Ordered By: Lisa Johns on 11-25-2022 Lymphocytes (Bld) [#/Vol] 2.4 10*3/uL 1.00-4.8 [facility] Lymphocytes/100 WBC Auto (Bl d)Ordered By: Lisa Johns on 11-25-2022 Lymphocytes/100 WBC (Bld) 53.9 % . [facility] MCH Auto (RBC) [Entitic mass ]Ordered By: Lisa Johns on 11-25-2022 MCH (RBC) [Entitic mass] 31.3 pg 24.7-34.3 [facility] MCHC Auto (RBC) [Mass/Vol]Or dered By: Lisa Johns on 11-25-2022 MCHC (RBC) [Mass/Vol] 34.8 g/dL 32.0-35.0 [facility] MCV Auto (RBC) [Entitic vol] Ordered By: Lisa Johns on 11-25-2022 MCV (RBC) [Entitic vol] 90.0 fL 80-100 [facility] Monocytes Auto (Bld) [#/Vol] Ordered By: Lisa Johns on 11-25-2022 Monocytes (Bld) [#/Vol] 0.3 10*3/uL 0.0-0.8 [facility] Monocytes/100 WBC Auto (Bld) Ordered By: Lisa Johns on 11-25-2022 Monocytes/100 WBC (Bld) 6.7 % . [facility] Neutrophils Auto (Bld) [#/Vo l]Ordered By: Lisa Johns on 11-25-2022 Neutrophils (Bld) [#/Vol] 1.6 10*3/uL 1.8-7.7 [facility] Neutrophils/100 WBC Auto (Bl d)Ordered By: Lisa Johns on 11-25-2022 Neutrophils/100 WBC (Bld) 35.8 % . [facility] No Panel InformationOrdered By: Lisa Johns on 11-25-2022 Estimated GFR (CKD-EPI) > 60.0 mL/Min [facility] Creatinine Clearance (Chem N/A [facility] Nucleated erythrocytes [Pres ence] in Blood by Automated countOrdered By: Lisa Johns on 11-25-2022 Nucleated RBC Auto Ql (Bld) 0.1 /100{WBC} 0-0.5 [facility] Platelet mean volume Auto (B ld) [Entitic vol]Ordered By: Lisa Johns on 11-25-2022 Platelet mean volume (Bld) [Entitic vol] 8.3 fL 6.3-10.7 [facility] Platelets Auto (Bld) [#/Vol] Ordered By: Lisa Johns on 11-25-2022 Platelets (Bld) [#/Vol] 242 10*3/uL 150-450 [facility] Potassium [Moles/volume] in Serum or PlasmaOrdered By: Lisa Johns on 11-25-2022 Potassium [Moles/Vol] 3.7 mmol/L 3.5-5.1 [facility] Protein [Mass/volume] in Ser um or PlasmaOrdered By: Lisa Johns on 11-25-2022 Protein [Mass/Vol] 6.1 g/dL 6.4-8.9 [facility] RBC Auto (Bld) [#/Vol]Ordere d By: Lisa Johns on 11-25-2022 RBC (Bld) [#/Vol] 4.23 10*6/uL 3.60-5.00 [facility] Serum or plasma albumin/glob ulin mass ratioOrdered By: Lisa Johns on 11-25-2022 Albumin/Globulin [Mass ratio] 2.1 {ratio} [facility] Serum or plasma anion gap de terminationOrdered By: Lisa Johns on 11-25-2022 Anion gap [Moles/Vol] 11.8 mmol/L 6.0-15.0 [facility] Serum or plasma free cefurox sylvester measurement (mass/volume)Ordered By: Lisa Johns on 11-25-2022 Cefuroxime free [Mass/Vol] Negative Negative [facility] Comment on above: Performed at: [employer] [address] [id number] Director: Lonnie Elise PhD, Phone: [phone] Serum or plasma rheumatoid f actor measurement (units/volume)Ordered By: Lisa Johns on 11-25-2022 Rheumatoid factor Qn [IU]/mL <14.0 [facility] Comment on above: Performed at: [employer] [place] [id number] Director: Lonnie Elise PhD, Phone: [phone] Sodium [Moles/volume] in Ser um or PlasmaOrdered By: Lisa Johns on 11-25-2022 Sodium [Moles/Vol] 138 mmol/L 136-145 [facility] Urea nitrogen [Mass/volume] in Serum or PlasmaOrdered By: Lisa Johns on 11-25-2022 Urea nitrogen [Mass/Vol] 15 mg/dL 7-25 [facility] WBC Auto (Bld) [#/Vol]Ordere d By: Lisa Johns on 11-25-2022 WBC (Bld) [#/Vol] 4.4 10*3/uL 3.8-11.6 [facility] Urinalysis - AUTOMATEDon Appearance (U) clear [employer] Other Bilirubin Ql (U) Negative [employer] Other Color (U) yellow [employer] Other Glucose Ql (U) Negative [employer] Other Hemoglobin Ql (U) trace [employer] Other Ketones Ql (U) Negative [employer] Other Leukocyte esterase Test strip Ql (U) Negative [employer] Other Nitrite Ql (U) Negative [employer] Other pH (U) 5.5 [pH] [employer] Other Protein Ql (U) Negative [employer] Other Specific gravity (U) [Rel density] 1.030 [employer] Other Urobilinogen (U) [Mass/Vol] 0.2 mg/dL [employer] Other Urinalysis - AUTOMATED [employer] Other STR cardiac stress/regularon 07-18-2022 STR cardiac stress/regular [facility] [employer] Other STR cardiac stress/regular [facility] [employer] Other STR cardiac stress/regular [address] [facility] [employer] Other STR cardiac stress/[place] [address] [employer] Other STR cardiac stress/regular Cardiac Stress Test [employer] Other STR cardiac stress/regular Draft [employer] Other STR cardiac stress/regular Patient: Karolina Smalls MR#: [id number] [employer] Other STR cardiac stress/regular 37 [employer] Other STR cardiac stress/regular : 1985 Acct:[id number] [employer] Other STR cardiac stress/regular Age/Sex: 36 / F ADM Date: 07/17/22 [employer] Other STR cardiac stress/regular Loc: Room: Type: [facility] [employer] Other STR cardiac stress/regular Attending Dr: Lisa Johns DNP [employer] Other STR cardiac stress/regular Copies to: [employer] Other STR cardiac stress/regular Ordering Provider: Lisa Johns DNP [employer] Other STR cardiac stress/regular Date of Service: 07/17/22 [employer] Other STR cardiac stress/regular STR/STR cardiac stress/regular: Nonspecific ST-T wave [employer] Other STR cardiac stress/regular electrocardiographic changes [employer] Other STR cardiac stress/regular ORDERING: Lisa Johns DNP [employer] Other STR cardiac stress/regular SUPERVISING: Seun Boo MD [employer] Other STR cardiac stress/regular CLINICAL INFORMATION: Chest pain. [employer] Other STR cardiac stress/regular The patient underwent routine treadmill testing according to [employer] protocol and accomplished total [employer] Other STR cardiac stress/regular exercise duration of 9 minutes and 51 seconds. The resting heart rate was 77 beats per minute and [employer] Other STR cardiac stress/regular peak heart rate 155 beats per minute, which is 84% of predicted heart rate for age. Workload was [employer] Other STR cardiac stress/regular 11.5 METS. Resting blood pressure was 136/88 and peak blood pressure 168/76. Study was terminated [employer] Other STR cardiac stress/regular for fatigue. The patient arrived with baseline complaints of retrosternal left arm and armpit pain. [employer] Other STR cardiac stress/regular It was unchanged with exercise. It was present on arrival and at departure. There were no changes [employer] Other STR cardiac stress/regular in symptoms and no findings to suggest myocardial ischemia. [employer] Other STR cardiac stress/regular SUMMARY: [employer] Other STR cardiac stress/regular 1. Resting EKG demonstrates normal sinus rhythm, normal EKG. [employer] Other STR cardiac stress/regular 2. No new anginal symptomatology with exertion. [employer] Other STR cardiac stress/regular 3. No ischemic ST-T wave changes were noted. [employer] Other STR cardiac stress/regular 4. There were no arrhythmias. [employer] Other STR cardiac stress/regular 5. The patient had a satisfactory work capacity and heart rate response. [employer] Other STR cardiac stress/regular 6. This is a normal graded exercise test. The patient demonstrates no convincing anginal [employer] Other STR cardiac stress/regular symptomology, no ischemic ST-T wave changes, and no arrhythmias with exercise. [employer] Other STR cardiac stress/regular Transcribed By: PETTY 07/18/22 1607 [employer] Other STR cardiac stress/regular Dictated By: Marcel Boo MD 07/18/22 1966 [employer] Other STR cardiac stress/regular Signed By: [employer] Other Automated erythrocytes count in urine sediment (number/area)Ordered By: Lisa Johns on 07-07-2022 RBC Auto (Urine sed) [#/Area] 10-19 [HPF] 0-4 [facility] Automated leukocytes count i n urine sediment (number/area)Ordered By: Lisa Johns on 07-07-2022 WBC Auto (Urine sed) [#/Area] 20-49 [HPF] 0-4 [facility] Bilirubin Test strip Ql (U)O rdered By: Lisa Johns on 07-07-2022 Bilirubin Ql (U) Negative Negative [facility] Color Auto (U)Ordered By: Tad Johns on 07-07-2022 Color (U) Yellow Yellow [facility] Dipstick & Microscopicon Dipstick & Microscopic [employer] Other Ketones Auto test strip (U) [Mass/Vol]Ordered By: Lisa Johns on 07-07-2022 Ketones (U) [Mass/Vol] Negative Negative [facility] Laboratory - UrinalysisOrder ed By: Lisa Johns on 07-07-2022 Hyaline casts LM Ql (Urine sed) 0-8 [LPF] 0-8 [facility] Nitrite Test strip Ql (U)Ord ered By: Lisa Johns on 07-07-2022 Nitrite Ql (U) Negative Negative [facility] Protein Auto test strip (U) [Mass/Vol]Ordered By: Lisa Johns on 07-07-2022 Protein (U) [Mass/Vol] Negative Negative [facility] Specific gravity Auto test s trip (U) [Rel density]Ordered By: Lisa Johns on 07-07-2022 Specific gravity (U) [Rel density] 1.011 1.001-1.030 [facility] Squamous epithelial cells de tection in urine sediment by light microscopyOrdered By: Lisa Johns on 07-07-2022 Epithelial cells.squamous LM Ql (Urine sed) 0-1 [HPF] 0-2 [facility] Urine Cultureon 07-07-2022 Urine Culture >100,000 [employer] Other Urine Culture <16 Susceptible [employer] Other Urine Culture <8/4 Susceptible [employer] Other Urine Culture <4 Susceptible [employer] Other Urine Culture <2 Susceptible [employer] Other Urine Culture <1 Susceptible [employer] Other Urine Culture <0.25 Susceptible [employer] Other Urine Culture <0.5 Susceptible [employer] Other Urine Culture <32 Susceptible [employer] Other Urine Culture <0.5/9.5 Susceptible [employer] Other Urine bacteria detection by automated methodOrdered By: Lisa Johns on 07-07-2022 Bacteria Auto Ql (U) 4+ None Seen [facility] Urine clarity by refractomet ry automatedOrdered By: Lisa Johns on 07-07-2022 Clarity Refractometry automated (U) Clear Clear [facility] Urine culture routineOrdered By: Lisa Johns on 02-27-2023 Bacteria identified Cx Nom (U) Klebsiella pneumoniae [facility] Urine glucose measurement by automated test strip (mass/volume)Ordered By: Lisa Johns on 07-07-2022 Glucose Auto test strip (U) [Mass/Vol] Normal mg/dL Normal [facility] Urine hemoglobin detection b y automated test stripOrdered By: Lisa Johns on 07-07-2022 Hemoglobin Auto test strip Ql (U) 2+ Negative [facility] Urine leukocyte esterase det ection by automated test stripOrdered By: Lisa Johns on 07-07-2022 Leukocyte esterase Auto test strip Ql (U) 3+ Negative [facility] Urobilinogen Auto test strip (U) [Mass/Vol]Ordered By: Lisa Johns on 07-07-2022 Urobilinogen (U) [Mass/Vol] Normal mg/dL Normal [facility] pH Auto test strip (U)Ordere d By: Lisa Johns on 07-07-2022 pH (U) 5.5 [pH] 5.0-9.0 [facility] Albumin [Mass/volume] in Bod y fluidOrdered By: Shahid Ritter on 06-26-2022 Albumin (Body fld) [Mass/Vol] 4.2 g/dL 3.2-5.5 [facility] Alkaline phosphatase [Enzyma tic activity/volume] in Serum or PlasmaOrdered By: Shahid Ritter on 06-26-2022 ALP [Catalytic activity/Vol] 60 U/L 32-92 [facility] Aspartate aminotransferase [ Enzymatic activity/volume] in Serum or PlasmaOrdered By: Shahid Ritter on 06-26-2022 AST [Catalytic activity/Vol] 37 U/L 10-42 [facility] Basophils Auto (Bld) [#/Vol] Ordered By: Shahid Ritter on 06-26-2022 Basophils (Bld) [#/Vol] 0.1 10*3/uL 0.0-0.2 [facility] Basophils/100 WBC Auto (Bld) Ordered By: Shahid Ritter on 06-26-2022 Basophils/100 WBC (Bld) 0.9 % . [facility] Bilirubin.total [Mass/volume ] in Serum or PlasmaOrdered By: Shahid Ritter on 06-26-2022 Bilirubin [Mass/Vol] 0.9 mg/dL 0.3-1.2 [facility] Calcium [Mass/volume] in Ser um or PlasmaOrdered By: Shahid Ritter on 06-26-2022 Calcium [Mass/Vol] 9.6 mg/dL 8.2-10.2 [facility] Carbon dioxide, total [Moles /volume] in Serum or PlasmaOrdered By: Shahid Ritter on 06-26-2022 CO2 [Moles/Vol] 25.2 mmol/L 22.0-30.0 [facility] Chloride [Moles/volume] in S dalia or PlasmaOrdered By: Shahid Ritter on 06-26-2022 Chloride [Moles/Vol] 103 mmol/L 95-114 [facility] Creatine kinase [Enzymatic a ctivity/volume] in Serum or PlasmaOrdered By: Shahid Ritter on 06-26-2022 CK [Catalytic activity/Vol] 134 U/L 22-269 [facility] Creatine kinase.MB [Mass/vol ume] in Serum or PlasmaOrdered By: Shahid Ritter on 06-26-2022 CK.MB [Mass/Vol] 1.4 ng/mL 0.6-6.3 [facility] Creatinine and Glomerular fi ltration rate.predicted panel (S/P/Bld)Ordered By: Shahid Ritter on 06-26-2022 Creatinine [Mass/Vol] 0.84 mg/dL 0.44-1.03 [facility] Eosinophils Auto (Bld) [#/Vo l]Ordered By: Shahid Ritter on 06-26-2022 Eosinophils (Bld) [#/Vol] 0.2 10*3/uL 0.0-0.45 [facility] Eosinophils/100 WBC Auto (Bl d)Ordered By: Shahid Ritter on 06-26-2022 Eosinophils/100 WBC (Bld) 2.5 % . [facility] Erythrocyte distribution wid th Auto (RBC) [Ratio]Ordered By: Shahid Ritter on 06-26-2022 Erythrocyte distribution width (RBC) [Ratio] 12.6 % 11.9-15.3 [facility] Estimated glomerular filtrat ion rate (GFR) non- AmericanOrdered By: Shahid Ritter on 06-26-2022 GFR/1.73 sq M.predicted among non-blacks MDRD (S/P/Bld) [Vol rate/Area] > 60 mL/Min [facility] Globulin Calc (S) [Mass/Vol] Ordered By: Shahid Ritter on 06-26-2022 Globulin (S) [Mass/Vol] 2.6 g/dL [facility] Glucose [Mass/volume] in Ser um or PlasmaOrdered By: Shahid Ritter on 06-26-2022 Glucose [Mass/Vol] 105 mg/dL 70-100 [facility] Comment on above: ADA recommended refe rence rangeRandom Glucose Reference Range is dependent on time and content of last meal. Glucose of more than 200 mg/dL in a nonstressed, ambulatory subject supports the diagnosis of Diabetes Mellitus. Hematocrit Auto (Bld) [Volum e fraction]Ordered By: Shahid Ritter on 06-26-2022 Hematocrit (Bld) [Volume fraction] 40.4 % 34.0-46.4 [facility] Hemoglobin [Mass/volume] in BloodOrdered By: Shahid Ritter on 06-26-2022 Hemoglobin (Bld) [Mass/Vol] 13.9 g/dL 11.8-15.4 [facility] Leukocytes [#/volume] correc nisha for nucleated erythrocytes in Blood by Automated counOrdered By: Shahid Ritter on 06-26-2022 WBC corrected for nucl RBC Auto (Bld) [#/Vol] 5.9 10*3/uL 3.8-11.6 [facility] Lymphocytes Auto (Bld) [#/Vo l]Ordered By: Shahid Ritter on 06-26-2022 Lymphocytes (Bld) [#/Vol] 3.1 10*3/uL 1.00-4.8 [facility] Lymphocytes/100 WBC Auto (Bl d)Ordered By: Shahid Ritter on 06-26-2022 Lymphocytes/100 WBC (Bld) 51.7 % . [facility] MCH Auto (RBC) [Entitic mass ]Ordered By: Shahid Ritter on 06-26-2022 MCH (RBC) [Entitic mass] 30.9 pg 24.7-34.3 [facility] MCHC Auto (RBC) [Mass/Vol]Or dered By: Shahid Ritter on 06-26-2022 MCHC (RBC) [Mass/Vol] 34.3 g/dL 32.0-35.0 [facility] MCV Auto (RBC) [Entitic vol] Ordered By: Shahid Ritter on 06-26-2022 MCV (RBC) [Entitic vol] 90.0 fL 80-100 [facility] Monocyte distribution width [Entitic volume] in Blood by AutomatedOrdered By: Shahid Ritter on 06-26-2022 Monocyte distribution width Auto (Bld) [Entitic vol] 16.62 % 0.00-20.00 [facility] Monocytes Auto (Bld) [#/Vol] Ordered By: Shahid Ritter on 06-26-2022 Monocytes (Bld) [#/Vol] 0.4 10*3/uL 0.0-0.8 [facility] Monocytes/100 WBC Auto (Bld) Ordered By: Shahid Ritter on 06-26-2022 Monocytes/100 WBC (Bld) 6.9 % . [facility] Neutrophils Auto (Bld) [#/Vo l]Ordered By: Shahid Ritter on 06-26-2022 Neutrophils (Bld) [#/Vol] 2.3 10*3/uL 1.8-7.7 [facility] Neutrophils/100 WBC Auto (Bl d)Ordered By: Shahid Ritter on 06-26-2022 Neutrophils/100 WBC (Bld) 38.0 % . [facility] No Panel InformationOrdered By: Shahid Ritter on 06-26-2022 Estimated GFR () > 60 mL/Min [facility] Comment on above: GFR estimated refere nce range: According to KDOQI guidelines, <60 ml/min/1.73m2 is sufficient to diagnose a patient with chronic kidney disease. Pharmacy Creatinine Clearance (Chem 88.58 [facility] Nucleated erythrocytes [Pres ence] in Blood by Automated countOrdered By: Shahid Ritter on 06-26-2022 Nucleated RBC Auto Ql (Bld) 0.2 /100{WBC} 0-0.5 [facility] Platelet mean volume Auto (B ld) [Entitic vol]Ordered By: Shahid Ritter on 06-26-2022 Platelet mean volume (Bld) [Entitic vol] 7.7 fL 6.3-10.7 [facility] Platelets Auto (Bld) [#/Vol] Ordered By: Shahid Ritter on 06-26-2022 Platelets (Bld) [#/Vol] 296 10*3/uL 150-450 [facility] Potassium [Moles/volume] in Serum or PlasmaOrdered By: Shahid Ritter on 06-26-2022 Potassium [Moles/Vol] 3.6 mmol/L 3.5-5.1 [facility] Protein [Mass/volume] in Ser um or PlasmaOrdered By: Shahid Ritter on 06-26-2022 Protein [Mass/Vol] 6.8 g/dL 6.1-7.9 [facility] RBC Auto (Bld) [#/Vol]Ordere d By: Shahid Ritter on 06-26-2022 RBC (Bld) [#/Vol] 4.49 10*6/uL 3.60-5.00 [facility] Serum or plasma alanine reyes otransferase measurement without P-5'-P (enzymatic activiOrdered By: Shahid Ritter on 06-26-2022 ALT No additional P-5'-P [Catalytic activity/Vol] 48 U/L 10-60 [facility] Serum or plasma albumin/glob ulin mass ratioOrdered By: Shahid Ritter on 06-26-2022 Albumin/Globulin [Mass ratio] 1.6 {ratio} [facility] Serum or plasma anion gap de terminationOrdered By: Shahid Ritter on 06-26-2022 Anion gap [Moles/Vol] 12.4 mmol/L 6.0-15.0 [facility] Serum or plasma creatine kin ase MB (CKMB)/total creatine kinase (CK) ratio by calculaOrdered By: Shahid Ritter on 06-26-2022 CK.MB Calc [Catalytic fraction] 1.0 % 0.00-2.50 [facility] Sodium [Moles/volume] in Ser um or PlasmaOrdered By: Shahid Ritter on 06-26-2022 Sodium [Moles/Vol] 137 mmol/L 136-146 [facility] TROPONIN, HIGH SENSITIVITYon 06-26-2022 HSTROP 4.9 pg/mL Normal 4.0-51.3 [facility] Comment on above: Result Comment: CUT- OFF POINTS HAVE BEEN ESTABLISHED BASED ON THE FOURTH UNIVERSAL DEFINITIONS OF MYOCARDIAL INFARCTION. THE UPPER REFERENCE LIMIT (URL) OF TROPONIN, DEFINED THE 99TH PERCENTILE OF cTnI DISTRIBUTION IN A REFERENCE POPULATION, HAS BEEN CONFIRMED THE DECISION THRESHOLD FOR AK DIAGNOSIS. Performed By: #### [facility] #### [facility] [address], [place] [address] Dr. Madiha Goins Troponin I.cardiac [Mass/vol ume] in Serum or Plasma by High sensitivity methodOrdered By: Shahid Ritter on 06-26-2022 Troponin I.cardiac High sensitivity method [Mass/Vol] < 3 pg/mL 0-15 [facility] Urea nitrogen [Mass/volume] in Serum or PlasmaOrdered By: Shahid Ritter on 06-26-2022 Urea nitrogen [Mass/Vol] 9 mg/dL 9 [facility] WBC Auto (Bld) [#/Vol]Ordere d By: Shahid Ritter on 06-26-2022 WBC (Bld) [#/Vol] 5.9 10*3/uL 3.8-11.6 [facility] MM diagnostic mammo BI w/CAD on 06-18-2022 MM diagnostic mammo BI w/CAD [facility] [employer] Other MM diagnostic mammo BI w/CAD [facility] [employer] Other MM diagnostic mammo BI w/CAD [address] [facility] [employer] Other MM diagnostic mammo BI w/[place] [address] [employer] Other MM diagnostic mammo BI w/CAD Ultrasound Report [employer] Other MM diagnostic mammo BI w/CAD Signed [employer] Other MM diagnostic mammo BI w/CAD Patient: Karolina Smalls MR#: [id number] [employer] Other MM diagnostic mammo BI w/CAD 37 [employer] Other MM diagnostic mammo BI w/CAD : 1985 Acct:[id number] [employer] Other MM diagnostic mammo BI w/CAD Age/Sex: 36 / F ADM Date: 06/18/22 [employer] Other MM diagnostic mammo BI w/CAD Loc: OR Room: Type: [facility] [employer] Other MM diagnostic mammo BI w/CAD Attending Dr: Lisa Johns DNP [employer] Other MM diagnostic mammo BI w/CAD Ordering Provider: Lisa Johns DNP [employer] Other MM diagnostic mammo BI w/CAD Date of Service: 06/18/22 [employer] Other MM diagnostic mammo BI w/CAD US/US breast LT limited: Breast pain, left [employer] Other MM diagnostic mammo BI w/CAD ([id number]) MM/MM diagnostic mammo BI w/CAD: Breast pain, left [employer] Other MM diagnostic mammo BI w/CAD Copies to: Lisa Johns [facility] [employer] Other MM diagnostic mammo BI w/CAD Bilateral Diagnostic Full Field digital mammogram with 3-D imaging. [employer] Other MM diagnostic mammo BI w/CAD Full field digital CC and MLO imaging performed. CAD utilized. [employer] Other MM diagnostic mammo BI w/CAD COMPARISON: None [employer] Other MM diagnostic mammo BI w/CAD HISTORY:Left breast pain superiorly. [employer] Other MM diagnostic mammo BI w/CAD FINDINGS: Scattered fibroglandular densities of the breast parenchyma identified. No developing [employer] Other MM diagnostic mammo BI w/CAD architectural distortion, developing focal breast asymmetry or developing malignant calcifications [employer] Other MM diagnostic mammo BI w/CAD identified. Benign calcification identified. [employer] Other MM diagnostic mammo BI w/CAD Targeted left breast ultrasound performed. The mildly complex anechoic cyst with thin septation and [employer] Other MM diagnostic mammo BI w/CAD measures 7 x 2 x 4 mm. This is at the 1:00 position 2 cm from the nipple. [employer] Other MM diagnostic mammo BI w/CAD US/US breast LT limited [employer] Other MM diagnostic mammo BI w/CAD IMPRESSION:No mammographic evidence of malignancy. Mildly complex cystic nodule left breast. [employer] Other MM diagnostic mammo BI w/CAD Targeted left breast ultrasound in 6 months recommended. [employer] Other MM diagnostic mammo BI w/CAD RESULT CODE: 3 [employer] Other MM diagnostic mammo BI w/CAD Probably Benign Finding Short Term Follow-Up [employer] Other mm diagnostic mammo BI w/CAD DENSITY CODE: 2 (approximately 25-50% glandular) [employer] Other MM diagnostic mammo BI w/CAD FOLLOW UP: 6M [employer] Other MM diagnostic mammo BI w/CAD THE FALSE-NEGATIVE RATE OF MAMMOGRAPHY IS APPROXIMATELY 10%. [employer] Other MM diagnostic mammo BI w/CAD IMAGING OF A PALPABLE ABNORMALITY MUST BE BASED ON CLINICAL GROUNDS. [employer] Other MM diagnostic mammo BI w/CAD PATIENT WAS ENTERED INTO A REMINDER SYSTEM WITH A TARGET DUE DATE FOR THE NEXT MAMMOGRAM. [employer] Other MM diagnostic mammo BI w/CAD Impression dictated by: Ming Au M.D.06/18/2022 8:47 AM [employer] Other mm diagnostic mammo BI w/CAD Dictation Location: [facility] [employer] Other mm diagnostic mammo BI w/CAD Tech: Cassandra Melton; Josefa Bustamante [employer] Other mm diagnostic mammo BI w/CAD Transcribed By: PWS 06/18/22 0847 [employer] Other mm diagnostic mammo BI w/CAD Dictated By: Ming Au DO 06/18/22 0837 [employer] Other mm diagnostic mammo BI w/CAD Signed By: [employer] Other mm diagnostic mammo BI w/CAD 06/18/22 0859 [employer] Other COVID + FLU Quick Testingon 04-28-2022 SARS-CoV-2 (COVID-19) RNA KIRSTIN+probe Ql (Unsp spec) Negative [employer] Other COVID + FLU Quick Testing Negative [employer] Other Quick Strepon 04-28-2022 S. pyogenes Org specific cx Ql (Throat) Negative [employer] Other Quick Strep [employer] Other Basophils Auto (Bld) [#/Vol] Ordered By: Lisa Johns on 04-23-2022 Basophils (Bld) [#/Vol] 0.0 10*3/uL 0.0-0.2 [facility] Basophils/100 WBC Auto (Bld) Ordered By: Lisa Johns on 04-23-2022 Basophils/100 WBC (Bld) 0.3 % . [facility] Body fluid albumin measureme nt (mass/volume)Ordered By: Brandon Wing on 04-23-2022 Albumin (Body fld) [Mass/Vol] 4.3 g/dL 3.2-5.5 [facility] Cholesterol [Mass/volume] in Serum or PlasmaOrdered By: Brandon Wing on 04-23-2022 Cholesterol [Mass/Vol] 190 mg/dL 140-200 [facility] Comment on above: Chol less than 200 m g/dl low riskChol 201-239 mg/dl borderline riskChol 240 mg/dl and greater high risk Cholesterol in LDL Calc [Mas s/Vol]Ordered By: Brandon Wing on 04-23-2022 Cholesterol in LDL [Mass/Vol] 122 mg/dL 0-100 [facility] Comment on above: LDL ATP III CLASSIFI CATIONLDL less than 100 mg/dL OptimalLDL 100-129 mg/dL Near or above optimalLDL 130-159 mg/dL Borderline highLDL 160-189 mg/dL HighLDL greater than 189 mg/dL Very high Cholesterol in VLDL Calc [Ma ss/Vol]Ordered By: Brandon Wing on 04-23-2022 Cholesterol in VLDL [Mass/Vol] 18 mg/dL [facility] Creatinine and Glomerular fi ltration rate.predicted panel (S/P/Bld)Ordered By: Brandon Wing on 04-23-2022 Creatinine [Mass/Vol] 0.89 mg/dL 0.44-1.03 [facility] Eosinophils Auto (Bld) [#/Vo l]Ordered By: Lisa Johns on 04-23-2022 Eosinophils (Bld) [#/Vol] 0.1 10*3/uL 0.0-0.45 [facility] Eosinophils/100 WBC Auto (Bl d)Ordered By: Lisa Johns on 04-23-2022 Eosinophils/100 WBC (Bld) 1.8 % . [facility] Erythrocyte distribution wid th Auto (RBC) [Ratio]Ordered By: Lisa Johns on 04-23-2022 Erythrocyte distribution width (RBC) [Ratio] 11.6 % 11.9-15.3 [facility] Estimated glomerular filtrat ion rate (GFR) non- AmericanOrdered By: Brandon Wing on 04-23-2022 GFR/1.73 sq M.predicted among non-blacks MDRD (S/P/Bld) [Vol rate/Area] > 60 mL/Min [facility] Globulin Calc (S) [Mass/Vol] Ordered By: Brandon Wing on 04-23-2022 Globulin (S) [Mass/Vol] 2.0 g/dL [facility] Hematocrit Auto (Bld) [Volum e fraction]Ordered By: Lisa Johns on 04-23-2022 Hematocrit (Bld) [Volume fraction] 40.6 % 34.0-46.4 [facility] Hemoglobin [Mass/volume] in BloodOrdered By: Lisa Johns on 04-23-2022 Hemoglobin (Bld) [Mass/Vol] 13.8 g/dL 11.8-15.4 [facility] Leukocytes [#/volume] correc nisha for nucleated erythrocytes in Blood by Automated counOrdered By: Lisa Johns on 04-23-2022 WBC corrected for nucl RBC Auto (Bld) [#/Vol] 5.1 10*3/uL 3.8-11.6 [facility] Lymphocytes Auto (Bld) [#/Vo l]Ordered By: Lisa Johns on 04-23-2022 Lymphocytes (Bld) [#/Vol] 2.6 10*3/uL 1.00-4.8 [facility] Lymphocytes/100 WBC Auto (Bl d)Ordered By: Lisa Johns on 04-23-2022 Lymphocytes/100 WBC (Bld) 50.5 % . [facility] MCH Auto (RBC) [Entitic mass ]Ordered By: Lisa Johns on 04-23-2022 MCH (RBC) [Entitic mass] 30.9 pg 24.7-34.3 [facility] MCHC Auto (RBC) [Mass/Vol]Or dered By: Lisa Johns on 04-23-2022 MCHC (RBC) [Mass/Vol] 34.1 g/dL 32.0-35.0 [facility] MCV Auto (RBC) [Entitic vol] Ordered By: Lisa Johns on 04-23-2022 MCV (RBC) [Entitic vol] 90.7 fL 80-100 [facility] Monocytes Auto (Bld) [#/Vol] Ordered By: Lisa Johns on 04-23-2022 Monocytes (Bld) [#/Vol] 0.3 10*3/uL 0.0-0.8 [facility] Monocytes/100 WBC Auto (Bld) Ordered By: Lisa Johns on 04-23-2022 Monocytes/100 WBC (Bld) 6.0 % . [facility] Neutrophils Auto (Bld) [#/Vo l]Ordered By: Lisa Johns on 04-23-2022 Neutrophils (Bld) [#/Vol] 2.1 10*3/uL 1.8-7.7 [facility] Neutrophils/100 WBC Auto (Bl d)Ordered By: Lisa Johns on 04-23-2022 Neutrophils/100 WBC (Bld) 41.4 % . [facility] No Panel InformationOrdered By: Brandon Wing on 04-23-2022 Estimated GFR () > 60 mL/Min [facility] Comment on above: GFR estimated refere nce range: According to KDOQI guidelines, <60 ml/min/1.73m2 is sufficient to diagnose a patient with chronic kidney disease. Pharmacy Creatinine Clearance (Chem N/A [facility] Nucleated erythrocytes [Pres ence] in Blood by Automated countOrdered By: Lisa Johns on 04-23-2022 Nucleated RBC Auto Ql (Bld) 0.2 /100{WBC} 0-0.5 [facility] Platelet mean volume Auto (B ld) [Entitic vol]Ordered By: Lisa Johns on 04-23-2022 Platelet mean volume (Bld) [Entitic vol] 8.6 fL 6.3-10.7 [facility] Platelets Auto (Bld) [#/Vol] Ordered By: Lisa Johns on 04-23-2022 Platelets (Bld) [#/Vol] 268 10*3/uL 150-450 [facility] Protein [Mass/volume] in Ser um or PlasmaOrdered By: Brandon Wing on 04-23-2022 Protein [Mass/Vol] 6.3 g/dL 6.1-7.9 [facility] RBC Auto (Bld) [#/Vol]Ordere d By: Lisa Johns on 04-23-2022 RBC (Bld) [#/Vol] 4.48 10*6/uL 3.60-5.00 [facility] Serum or plasma alanine reyes otransferase measurement without P-5'-P (enzymatic activiOrdered By: Brandon Wing on 04-23-2022 ALT No additional P-5'-P [Catalytic activity/Vol] 27 U/L 10-60 [facility] Serum or plasma albumin/glob ulin mass ratioOrdered By: Brandon Wing on 04-23-2022 Albumin/Globulin [Mass ratio] 2.2 {ratio} [facility] Serum or plasma alkaline heather sphatase measurement (enzymatic activity/volume)Ordered By: Brandon Wing on 04-23-2022 ALP [Catalytic activity/Vol] 44 U/L 32-92 [facility] Serum or plasma anion gap de terminationOrdered By: Brandon Wing on 04-23-2022 Anion gap [Moles/Vol] 10.4 mmol/L 6.0-15.0 [facility] Serum or plasma aspartate am inotransferase measurement (enzymatic activity/volume)Ordered By: Brandon Wing on 04-23-2022 AST [Catalytic activity/Vol] 28 U/L 10-42 [facility] Serum or plasma calcium juan urement (mass/volume)Ordered By: Brandon Wing on 04-23-2022 Calcium [Mass/Vol] 9.1 mg/dL 8.2-10.2 [facility] Serum or plasma chloride patricia surement (moles/volume)Ordered By: Brandon Wing on 04-23-2022 Chloride [Moles/Vol] 107 mmol/L 95-114 [facility] Serum or plasma glucose juan urement (mass/volume)Ordered By: Brandon Wing on 04-23-2022 Glucose [Mass/Vol] 80 mg/dL 70-100 [facility] Comment on above: ADA recommended refe rence rangeRandom Glucose Reference Range is dependent on time and content of last meal. Glucose of more than 200 mg/dL in a nonstressed, ambulatory subject supports the diagnosis of Diabetes Mellitus. Serum or plasma high density lipoprotein (HDL) cholesterol measurementOrdered By: Brandon Wing on 04-23-2022 Cholesterol in HDL [Mass/Vol] 50 mg/dL 35-85 [facility] Comment on above: HDL CHOL ATP-III CLA SSIFICATION Cardiovascular RiskHDL > or equal to 60 mg/dL LOWHDL < 40 mg/dL HIGH Serum or plasma potassium me asurement (moles/volume)Ordered By: Brandon Wing on 04-23-2022 Potassium [Moles/Vol] 4.0 mmol/L 3.5-5.1 [facility] Serum or plasma sodium measu rement (moles/volume)Ordered By: Brandon Wing on 04-23-2022 Sodium [Moles/Vol] 135 mmol/L 136-146 [facility] Serum or plasma total biliru bin measurement (mass/volume)Ordered By: Brandon Wing on 04-23-2022 Bilirubin [Mass/Vol] 0.8 mg/dL 0.3-1.2 [facility] Serum or plasma total carbon dioxide measurement (moles/volume)Ordered By: Brandon Wing on 04-23-2022 CO2 [Moles/Vol] 21.6 mmol/L 22.0-30.0 [facility] Serum or plasma total choles terol/high density lipoprotein (HDL) cholesterol mass ratOrdered By: Brandon Wing on 04-23-2022 Cholesterol.total/Cho lesterol in HDL [Mass ratio] 3.8 {ratio} <5.0 [facility] Serum or plasma urea nitroge n measurement (mass/volume)Ordered By: Brandon Wing on 04-23-2022 Urea nitrogen [Mass/Vol] 8 mg/dL 9-23 [facility] TSH DL <= 0.005 mIU/L QnOrde red By: Lisa Johns on 04-23-2022 TSH Qn 1.08 m[IU]/L 0.45-5.33 [facility] Triglyceride [Mass/volume] i n Serum or PlasmaOrdered By: Brandon Wing on 04-23-2022 Triglyceride [Mass/Vol] 91 mg/dL 35-149 [facility] Comment on above: TRIG ATP III CLASSIF ICATIONTRIG less than 150 mg/dL NormalTRIG 150-199 mg/dL Borderline highTRIG 200-500 mg/dL High TRIG greater than 500 mg/dL Very highStandard traceable to the Center for Disease Conrtrol and Prevention (CDC) test method. WBC Auto (Bld) [#/Vol]Ordere d By: Lisa Johns on 04-23-2022 WBC (Bld) [#/Vol] 5.1 10*3/uL 3.8-11.6 [facility] XR lumbar spine min 4V*on XR lumbar spine min 4V* [facility] [employer] Other XR lumbar spine min 4V* [facility] [employer] Other XR lumbar spine min 4V* [address] [place] [address] [employer] Other XR lumbar spine min 4V* [place] [address] [employer] Other XR lumbar spine min 4V* XRay Report [employer] Other XR lumbar spine min 4V* Signed [employer] Other XR lumbar spine min 4V* Patient: Karolina Smalls MR#: [id number] [employer] Other XR lumbar spine min 4V* 37 [employer] Other XR lumbar spine min 4V* : 1985 Acct:[id number] [employer] Other XR lumbar spine min 4V* Age/Sex: 36 / F ADM Date: 04/23/22 [employer] Other XR lumbar spine min 4V* Loc: XDS Room: Type: REG CLI [employer] Other XR lumbar spine min 4V* Attending Dr: Lisa Johns DNP [employer] Other XR lumbar spine min 4V* Copies to: Lisa Johns DNP [employer] Other XR lumbar spine min 4V* Ordering Provider: Lisa Johns DNP [employer] Other XR lumbar spine min 4V* Date of Service: 04/23/22 [employer] Other XR lumbar spine min 4V* XR/XR lumbar spine min 4V*: Lumbar degenerative disc disease [employer] Other XR lumbar spine min 4V* LUMBAR SPINE - 6 views: [employer] Other XR lumbar spine min 4V* CLINICAL HISTORY: Low back pain for several days. No specific injury. [employer] Other XR lumbar spine min 4V* COMPARISON: 11/30/2017 [employer] Other XR lumbar spine min 4V* Recumbent AP, lateral, both oblique and AP and lateral coned-down views of the lumbosacral junction [employer] Other XR lumbar spine min 4V* were obtained. Levoscoliotic curvature is again noted. There is no evidence of fracture. Alignment [employer] Other XR lumbar spine min 4V* is maintained on the lateral view. The disc spaces are normal in height. There is minimal endplate [employer] Other XR lumbar spine min 4V* spurring. There is facet disease, greater distally. No pars defect is identified. The sacroiliac [employer] Other XR lumbar spine min 4V* joints are maintained. There are no paraspinal soft tissue abnormalities. [employer] Other XR lumbar spine min 4V* XR/XR lumbar spine min 4V* [employer] Other XR lumbar spine min 4V* IMPRESSION: [employer] Other XR lumbar spine min 4V* SCOLIOSIS AND MILD DEGENERATIVE CHANGES [employer] Other XR lumbar spine min 4V* Impression dictated by: Zandra Barksdale M.D.04/23/2022 11:42 AM [employer] Other XR lumbar spine min 4V* Dictation Location: [place] [address] [employer] Other XR lumbar spine min 4V* Transcribed By: PWS 04/23/22 1142 [employer] Other XR lumbar spine min 4V* Dictated By: Zandra Barksdale MD 04/23/22 1140 [employer] Other XR lumbar spine min 4V* Signed By: [employer] Other XR lumbar spine min 4V* 04/23/22 [facility]2 [employer] Other Quick Strepon 02-13-2022 S. pyogenes Org specific cx Ql (Throat) Positive [employer] Other Quick Strep [employer] Other XR DEXA BONE DENSITYon 02-03 XR DEXA BONE DENSITY EXAMINATION: XR DEX A BONE DENSITY, 02/03/2022 8:39 AM EDT HISTORY: Symptomatic postprocedural ovarian failure COMPARISON: None. TECHNIQUE: Dual-energy X-ray absorptiometry (DEXA) bone density study performed for the axial skeleton. FINDINGS: SPINE ANALYSIS: Average bone mineral density is 1.143 g/cm2. T-score (standard deviation relative to young adult mean): -0.5 . HIP ANALYSIS: Lowest bone mineral density is within the femoral trochanter, 0.834 g/cm2. T-score (standard deviation relative to young adult mean): -0.1 . IMPRESSION: [employer] Classification: Normal - Low Fracture Risk Electronically authenticated by: KEITH TREJO Date: 2022-02-03 09:15 Normal [facility] Bacteria identified Anaer cx Nom (Unsp spec)Ordered By: Janina Soria on 01-26-2022 Anaerobic microbial culture No Anaerobes Isolated 3 Days [facility] ABO and Rh group post transf usion reaction Nom (Bld)Ordered By: Janina Soria on 01-24-2022 Microscopic observation Gram stain Nom (Unsp spec) [facility] Angiotensin converting enzym e [Enzymatic activity/volume] in Cerebral spinal fluidOrdered By: Janina Soria on 01-23-2022 Angiotensin converting enzyme (CSF) [Catalytic activity/Vol] <1.5 U/L 0.0-2.5 [facility] Comment on above: Results of this test are labeled for research purposes onlyby the assay's insulation blanket maker. The performancecharacteristics of this assay have not been established bythe insulation blanket maker. The result should not be used fortreatment or for diagnostic purposes without confirmationof the diagnosis by another medically establisheddiagnostic product or procedure. The performancecharacteristics were determined by [employer].Performed at: [address] [id number] Director: Rene Holloway MD, Phone: [phone] Borrelia burgdorferi DNA [Pr esence] in Unspecified specimen by Probe and target ampliOrdered By: Janina Soria on 01-23-2022 B. burgdorferi DNA KIRSTIN+probe Ql (Unsp spec) Negative Negative [facility] Comment on above: No B. burgdorferi DN A Detected.This test was developed and its performance characteristicsdetermined by [employer]bolt. It has not been cleared or approvedby the Food and Drug Administration. The FDA hasdetermined that such clearance or approval is notnecessary.Performed at: [address] [id number] Director: Rene Holloway MD, Phone: [phone] Cerebrospinal fluid post-radha trifugation appearance determinationOrdered By: Janina Soria on 01-23-2022 Appearance (Spun CSF) Colorless Colorless [facility] Cerebrospinal fluid sample t ube volume measurementOrdered By: Janina Soria on 01-23-2022 Specimen volume (CSF) 21.5 mL [facility] Color CSFOrdered By: Janina Soria on 01-23-2022 Color (CSF) Colorless Colorless [facility] Manual cerebrospinal fluid e rythrocytes count (number/volume)Ordered By: Janina Soria on 01-23-2022 RBC Manual cnt (CSF) [#/Vol] 1 /uL [facility] Comment on above: The reference interv al and other method performance specifications have not been established for this body fluid. The test result must be integrated into the clinical context for interpretation. No Panel InformationOrdered By: Janina Soria on 01-23-2022 CSF Appearance Clear Clear [facility] CSF Eosinophils 0 [facility] Comment on above: The reference interv al and other method performance specifications have not been established for this body fluid. The test result must be integrated into the clinical context for interpretation. CSF Glucose 53 mg/dL 40-70 [facility] CSF Lymphocytes 8 [facility] Comment on above: The reference interv al and other method performance specifications have not been established for this body fluid. The test result must be integrated into the clinical context for interpretation. CSF Monocytes 2 [facility] Comment on above: The reference interv al and other method performance specifications have not been established for this body fluid. The test result must be integrated into the clinical context for interpretation. CSF Neutrophils 0 [facility] Comment on above: The reference interv al and other method performance specifications have not been established for this body fluid. The test result must be integrated into the clinical context for interpretation. CSF Total Cells Counted 10 [facility] CSF Total Protein 34 mg/dL 15-45 [facility] CSF Tube Number Tube number: 3 [facility] Nucleated cells [#/volume] i n Cerebral spinal fluid by Manual countOrdered By: Janina Soria on 01-23-2022 Nucleated cells Manual cnt (CSF) [#/Vol] 0.001 10*3/uL 0-5 [facility] PAP ACOG PANEL 2: 30 to 65on 10-30-2021 HPV Aptima Positive Abnormal Negative [facility] Comment on above: Result Comment: This nucleic acid amplification test detects fourteen high-risk HPV types (16,18,31,33,35,39,45,51,52,56,58,59,66,68) without differentiation. Performed at: =G Performed By: #### [id number] #### [facility] [address] [place] [address] Dr. Madiha Goins HPV Genotype 16 Negative Normal Negative [facility] Comment on above: Result Comment: Perf ormed at: =G Performed By: #### [id number] #### [facility] [address] [place] [address] Dr. Madiha Goins HPV Genotype 18,45 Negative Normal Negative [facility] Comment on above: Result Comment: Perf ormed at: =G Performed By: #### [id number] #### [facility] [address] [place] [address] Dr. Madiha Goins . . Normal [facility] Comment on above: Result Comment: Perf ormed at: WB Performed By: #### [id number] #### [facility] [address] [place] [address] Dr. Madiha Goins Age Gdln ACOG Testing 30-65 [facility] Comment on above: Performed By: #### [id number] #### [facility] [address] [place] [address] Dr. Madiha Goins DIAGNOSIS: Comment [facility] Comment on above: Result Comment: NEGA TIVE FOR INTRAEPITHELIAL LESION OR MALIGNANCY. Performed at: WB Performed By: #### [id number] #### [facility] [address] [place] [address] Dr. Madiha Goins Methodology: Comment [facility] Comment on above: Result Comment: This liquid based ThinPrep(R) pap test was screened with the use of an image guided system. Performed at: WB Performed By: #### [id number] #### [facility] [address] [place] [address] Dr. Madiha Goins Note: Comment [facility] Comment on above: Result Comment: The Pap smear is a screening test designed to aid in the detection of premalignant and malignant conditions of the uterine cervix. It is not a diagnostic procedure and should not be used as the sole means of detecting cervical cancer. Both false-positive and false-negative reports do occur. . Performed at: WB Performed By: #### [id number] #### [facility] [address] [place] [address] Dr. Madiha Goins Performed by: Comment Normal [facility] Comment on above: Result Comment: Oksana Maldonado Supervisor [employer] (ASCP) Performed at: WB Performed By: #### [id number] #### [facility] [address] [address] [address] Madiha Goins Specimen adequacy: Comment Normal [facility] Comment on above: Result Comment: Sati sfactory for evaluation. No endocervical component is identified. Performed at: WB Performed By: #### [id number] #### [facility] [address] [address] [address] Madiha Goins A1C HEMOGLOBINon 08-22-2021 HbA1c (Bld) [Mass fraction] 5.0 % [employer] Other Complete Blood Count Auto Di ffon 08-22-2021 Basophils (Bld) [#/Vol] 0.012226298 10*3/uL Normal 0.0-0.2 10*3/uL [employer] Other Basophils/100 WBC (Bld) 1.300 % . % [employer] Other Eosinophils (Bld) [#/Vol] 0.859483088 10*3/uL Normal 0.0-0.45 10*3/uL [employer] Other Eosinophils/100 WBC (Bld) 3.900 % . % [employer] Other Erythrocyte distribution width (RBC) [Ratio] 12.200 % Normal 11.9-15.3 % [employer] Other Hematocrit (Bld) [Volume fraction] 39.800 % Normal 34.0-46.4 % [employer] Other Hemoglobin (Bld) [Mass/Vol] 14.763979 g/dL Normal 11.8-15.4 g/dL [employer] Other Lymphocytes (Bld) [#/Vol] 2.157292973 10*3/uL Normal 1.00-4.8 10*3/uL [employer] Other Lymphocytes/100 WBC (Bld) 48.700 % . % [employer] Other MCH (RBC) [Entitic mass] 31.1000 pg Normal 24.7-34.3 pg [employer] Other MCV (RBC) [Entitic vol] 88.0000 fL Normal 80-100 fL [employer] Other Monocytes (Bld) [#/Vol] 0.838142455 10*3/uL Normal 0.0-0.8 10*3/uL [employer] Other Monocytes/100 WBC (Bld) 6.600 % . % [employer] Other Neutrophils (Bld) [#/Vol] 1.164325109 10*3/uL Normal 1.8-7.7 10*3/uL [employer] Other Neutrophils/100 WBC (Bld) 39.500 % . % [employer] Other Platelet mean volume (Bld) [Entitic vol] 7.9000 fL Normal 6.3-10.7 fL [employer] Other Platelets (Bld) [#/Vol] 292 10*3/uL Normal 150-450 10*3/uL [employer] Other RBC (Bld) [#/Vol] 4.1313916755 10*6/uL Normal 3. 60-5.00 10*6/uL [employer] Other WBC (Bld) [#/Vol] 4.088517074 10*3/uL Normal 3.8 -11.6 10*3/uL [employer] Other Complete Blood Count Auto Diff 4.9 10*3/uL Normal 4.5-11.0 10*3/uL [employer] Other Complete Blood Count Auto Diff 35.3 g/dL High 32.0-35.0 g/dL [employer] Other Complete Blood Count Auto Diff 0.1 % Normal 0-0.5 % [employer] Other Comprehensive Metabolic Pane jose angel 08-22-2021 Albumin [Mass/Vol] 4.598000 g/dL Normal 3.2-5.5 g/dL [employer] Other Albumin/Globulin [Mass ratio] 1.8 {ratio} [employer] Other ALP [Catalytic activity/Vol] 70 U/L Normal 32-92 U/L [employer] Other ALT [Catalytic activity/Vol] 49 U/L Normal 10-60 U/L [employer] Other AST [Catalytic activity/Vol] 39 U/L Normal 10-42 U/L [employer] Other Bilirubin [Mass/Vol] 1.1761900 mg/dL Normal 0.3- 1.2 mg/dL [employer] Other Calcium [Mass/Vol] 9.9759906 mg/dL Normal 8.2-10 .2 mg/dL [employer] Other Chloride [Moles/Vol] 104 mmol/L Normal 95-114 mmol/L [employer] Other CO2 [Moles/Vol] 23.67850667 mmol/L Normal 22.0-3 0.0 mmol/L [employer] Other Creatinine [Mass/Vol] 1.61326491 mg/dL Normal 0. 44-1.03 mg/dL [employer] Other Glucose [Mass/Vol] 101 mg/dL High 70-100 mg/dL [employer] Other Potassium [Moles/Vol] 4.98604465 mmol/L Normal 3 .5-5.1 mmol/L [employer] Other Protein [Mass/Vol] 6.744861 g/dL Normal 6.1-7.9 g/dL [employer] Other Sodium [Moles/Vol] 137 mmol/L Normal 136-146 mmol/L [employer] Other Urea nitrogen [Mass/Vol] 11 mg/dL Normal 9-23 mg/dL [employer] Other Comprehensive Metabolic Panel > 60 [employer] Other Comprehensive Metabolic Panel 2.3 g/dL [employer] Other HbA1c (Bld) [Mass fraction]o n 08-22-2021 A1C HEMOGLOBIN Chu Shu Other Lipid Panelon 08-22-2021 Cholesterol [Mass/Vol] 217 mg/dL High 140-200 mg/dL [employer] Other Cholesterol in HDL [Mass/Vol] 40 mg/dL Normal 35-85 mg/dL [employer] Other Cholesterol in LDL Elph Qn 147 mg/dL High 0-100 mg/dL [employer] Other Cholesterol.total/Cho lesterol in HDL [Mass ratio] 5.4 {ratio} <5.0 [employer] Other Lipid Panel 149 mg/dL Normal 35-149 mg/dL [employer] Other Lipid Panel 29 mg/dL [employer] Other Thyroid Stimulating Hormoneo n 08-22-2021 TSH Qn 1.62781583586 m[IU]/L Normal 0.45-5 .33 u[iU]/mL [employer] Other ECHO 2D W COLORFLOW DOPPLERo n 05-08-2017 ECHO 2D W COLORFLOW DOPPLER Normal [facility] Urgent Care and Emergency De partmenton 04-09-2017 Urgent Care and Emergency Department Normal [facility] Urgent Care and Emergency Department Normal [facility] Urgent Care and Emergency Department Normal [facility] Urgent Care and Emergency Department Normal [facility] WRIST LT 3 OR MORE VIEWSon 1 06-09-2016 WRIST LT 3 OR MORE VIEWS PROCEDURE:WRIST LT 3 OR MORE VIEWS - [id number] CLINICAL:INJURY Special Instructions: = N TECHNIQUE:THREE OR MORE VIEWS OF THE LEFT WRIST COMPARISON:There are no recent comparison exams available at the time of dictation. FINDINGS:The examination fails to demonstrate evidence of an acute fracture. There is no widening of the scapholunate space. IMPRESSION:No radiographic evidence of an acute fracture. RECOMMENDATION:If the patient has snuffbox tenderness or persistent pain, a follow-up radiographic evaluation in 10-14 days, MRI, or three phase bone scan would be recommended to exclude an occult fracture. __Electronically signed by: Pineda Holland M.D., MBADate/time: 04-09-2017, 01:11 PM Final Report Normal [facility] LT BREAST US - BCon 04-06-20 LT BREAST US - BC PATIENT HISTORY:Samantha ent is postmenopausal.Family history of breast cancer at age 35 in maternal aunt. PHYSICAL FINDINGS:Patient complains of lumps bilateral breasts, and left breast larger than right. BREAST LEFT ULTRASOUND: 04/06/17 - Gferztxd views.Technologist: Korin Mullins sonography of the breast was performed. No solid or cystic mass was identified.Palpable abnormalities of the breast or axilla that are sonographically occult should be managed clinically. BREAST RIGHT ULTRASOUND: 04/06/17 - Obfvrozw views.Technologist: Korin Mullins sonography of the breast was performed. No solid or cystic mass was identified.Palpable abnormalities of the breast or axilla that are sonographically occult should be managed clinically. ACR BI-RADS? ASSESSMENTS: NEGATIVE BI-RADS 1 (OVERALL)Left breast BUSL: Left breast is negative bi-rads 1.Right breast BUSR: Right breast is negative bi-rads 1. RECOMMENDATION:Routine screening mammogram at age 40.Electronically signed and approved by: Orlando Foote D.O.April 06, 2017 9:57 Final Report Normal [facility] RT BREAST US - BCon 04-06-20 17 RT BREAST US - BC PATIENT HISTORY:Samantha ent is postmenopausal.Family history of breast cancer at age 35 in maternal aunt. PHYSICAL FINDINGS:Patient complains of lumps bilateral breasts, and left breast larger than right. BREAST LEFT ULTRASOUND: 04/06/17 - Iraeroqc views.Technologist: Korin Mullins sonography of the breast was performed. No solid or cystic mass was identified.Palpable abnormalities of the breast or axilla that are sonographically occult should be managed clinically. BREAST RIGHT ULTRASOUND: 04/06/17 - Yquoyerg views.Technologist: Korin Mullins sonography of the breast was performed. No solid or cystic mass was identified.Palpable abnormalities of the breast or axilla that are sonographically occult should be managed clinically. ACR BI-RADS? ASSESSMENTS: NEGATIVE BI-RADS 1 (OVERALL)Left breast BUSL: Left breast is negative bi-rads 1.Right breast BUSR: Right breast is negative bi-rads 1. RECOMMENDATION:Routine screening mammogram at age 40.Electronically signed and approved by: Orlando Foote D.O.April 06, 2017 9:57 Final Report Normal [facility] Urgent Care and Emergency De partmenton 03-06-2017 Urgent Care and Emergency Department Normal [facility] Urgent Care and Emergency Department Normal [facility] Glucose FS UCCon 03-02-2017 Glucose mass conc 105 mg/dL Normal 70-110 [facility] Comment on above: Result Comment: Test ing performed at [place] [address] Performed By: #### [facility] ####[facility] Laboratory ServicesDr. Lonnie Loya [id number] [place], [place] [id number] Urgent Care and Emergency De partmenton 03-02-2017 Urgent Care and Emergency Department Normal [facility] Urgent Care and Emergency Department Normal [facility] Urgent Care and Emergency Department Normal [facility] Urgent Care and Emergency Department Normal [facility] Urgent Care and Emergency Department Normal [facility] Urgent Care and Emergency De partmenton 02-12-2017 Urgent Care and Emergency Department Normal [facility] Urgent Care and Emergency Department Normal [facility] ED Noteon 09-16-2017 HIM IP Note OR Renewal Specialist Normal [facility] HIM IP Note OR Renewal Specialist Normal [facility] ED Provider Noteon 7 HIM IP Note OR Renewal Specialist Normal [facility] Vital Signs Date Time Vital Sign Value Performing Clinician Facility 06-03-2024 09:40-0500 Body height 158.8 cm Cassandra Tinsley REGISTRATION SPECIALIST.BARGE [employer] Work Phone: [facility] 06-03-2024 09:40-0500 Body mass index (BMI) [Ratio] 28.8 kg/m2 Cassandra Tinsley REGISTRATION SPECIALIST.[employer]GE [employer] Work Phone: [facility] 06-03-2024 09:40-0500 Body weight 72.58 kg Cassandra Tinsley REGISTRATION SPECIALIST.[employer]GE [employer] Work Phone: [facility] 06-03-2024 09:40-0500 Heart rate 75 /min Cassandra Tinsley REGISTRATION SPECIALIST.[employer] Work Phone: [facility] 06-03-2024 09:40-0500 SaO2% (BldA) [Mass fraction] 100 % Cassandra Tinsley REGISTRATION SPECIALIST.[employer]GE [employer] Work Phone: [facility] 05-20-2024 09:45-0500 Body height 158.8 cm Osiel Osiel DO Work Phone: [facility] 05-20-2024 09:45-0500 Body mass index (BMI) [Ratio] 29.68 kg/m2 Osiel Osiel DO Work Phone: [facility] 05-20-2024 09:45-0500 Body weight 74.8 kg Osiel Osiel DO Work Phone: [facility] 05-20-2024 09:45-0500 Heart rate 78 /min Osiel Osiel DO Work Phone: [facility] 05-20-2024 09:45-0500 SaO2% (BldA) [Mass fraction] 97 % Osiel Osiel DO Work Phone: [facility] 03-19-2024 09:15-0500 Body height 157.48 cm Eli Toddimore ONLINE EDUCATION MANAGER-BC Work Phone: [facility] 03-19-2024 09:15-0500 Body mass index (BMI) [Ratio] 29.2 kg/m2 Eli Bullimore ONLINE EDUCATION MANAGER-BC Work Phone: [facility] 03-19-2024 09:15-0500 Body temperature 98.2 [degF] Eli Toddimore ONLINE EDUCATION MANAGER-BC Work Phone: [facility] 03-19-2024 09:15-0500 Body weight 72.57 kg Eli Toddimore ONLINE EDUCATION MANAGER-BC Work Phone: [facility] 03-19-2024 09:15-0500 Diastolic blood pressure 82 mm[Hg] Eli Toddimore ONLINE EDUCATION MANAGER-BC Work Phone: [facility] 03-19-2024 09:15-0500 Heart rate 81 /min Eli Toddimore ONLINE EDUCATION MANAGER-BC Work Phone: [facility] 03-19-2024 09:15-0500 SaO2% (BldA) [Mass fraction] 96 % Eli Toddimore ONLINE EDUCATION MANAGER-BC Work Phone: [facility] 03-19-2024 09:15-0500 Systolic blood pressure 120 mm[Hg] Eli Toddimore ONLINE EDUCATION MANAGER-BC Work Phone: [facility] 02-24-2024 09:41-0400 Body mass index (BMI) [Ratio] 28.88 kg/m2 Josefa Falk DO Work Phone: [facility] 02-24-2024 09:41-0400 Body weight 71.63 kg Josefa Falk DO Work Phone: [facility] 02-24-2024 09:41-0400 Diastolic blood pressure 93 mm[Hg] Josefa Falk DO Work Phone: [facility] 02-24-2024 09:41-0400 SaO2% (BldA) [Mass fraction] 100 % Josefa Falk Work Phone: [facility] 02-24-2024 09:41-0400 Systolic blood pressure 135 mm[Hg] Josefa Falk Work Phone: [facility] 02-08-2024 14:31-0400 Body height 157.48 cm DNP Lisa Kaple Work Phone: [facility] 02-08-2024 14:31-0400 Body temperature 98.7 [degF] DNP Lisa Kaple Work Phone: [facility] 02-08-2024 14:31-0400 Body weight 74.84 kg DNP Lisa Kaple Work Phone: [facility] 02-08-2024 14:31-0400 Diastolic blood pressure 64 mm[Hg] DNP Lisa Kaple Work Phone: [facility] 02-08-2024 14:31-0400 Heart rate 70 /min DNP Lisa Kaple Work Phone: [facility] 02-08-2024 14:31-0400 Respiratory rate 18 /min DNP Lisa Kaple Work Phone: [facility] 02-08-2024 14:31-0400 SaO2% (BldA) [Mass fraction] 100 % DNP Lisa Kaple Work Phone: [facility] 02-08-2024 14:31-0400 Systolic blood pressure 119 mm[Hg] DNP Lisa Kaple Work Phone: [facility] 01-29-2024 08:41-0400 Body height 158.75 cm DNP Lisa Kaple Work Phone: [facility] 01-29-2024 08:41-0400 Body mass index (BMI) [Ratio] 29.7 kg/m2 DNP Lisa Kaple Work Phone: [facility] 01-29-2024 08:41-0400 Body weight 74.98 kg DNP Lisa Kaple Work Phone: [facility] 01-29-2024 08:41-0400 Diastolic blood pressure 82 mm[Hg] DNP Lisa Kaple Work Phone: [facility] 01-29-2024 08:41-0400 Heart rate 79 /min DNP Lisa Kaple Work Phone: [facility] 01-29-2024 08:41-0400 Respiratory rate 16 /min DNP Lisa Kaple Work Phone: [facility] 01-29-2024 08:41-0400 SaO2% (BldA) [Mass fraction] 97 % DNP Lisa Kaple Work Phone: [facility] 01-29-2024 08:41-0400 Systolic blood pressure 116 mm[Hg] DNP Lisa Kaple Work Phone: [facility] 12-23-2023 10:30-0400 Diastolic blood pressure 70 mm[Hg] DNP Lisa Kaple Work Phone: [facility] 12-23-2023 10:30-0400 Heart rate 54 /min DNP Lisa Kaple Work Phone: [facility] 12-23-2023 10:30-0400 Respiratory rate 16 /min DNP Lisa Kaple Work Phone: [facility] 12-23-2023 10:30-0400 SaO2% (BldA) [Mass fraction] 97 % DNP Lisa Kaple Work Phone: [facility] 12-23-2023 10:30-0400 Systolic blood pressure 106 mm[Hg] DNP Lisa Kaple Work Phone: [facility] 12-23-2023 08:06-0400 Body height 157.48 cm DNP Lisa Kaple Work Phone: [facility] 12-23-2023 08:06-0400 Body temperature 98.2 [degF] DNP Lisa Andreas Work Phone: [facility] 12-23-2023 08:06-0400 Body weight 77.5 kg DNP Lisa Kaple Work Phone: [facility] 10-08-2023 14:21-0400 Body height 157.5 cm Paula-Siomara Geller DO Work Phone: [facility] 10-08-2023 14:21-0400 Body mass index (BMI) [Ratio] 32.46 kg/m2 Paula-Siomara Geller DO Work Phone: [facility] 10-08-2023 14:21-0400 Body weight 80.5 kg Paula-Siomara Geller DO Work Phone: [facility] 10-08-2023 14:21-0400 Diastolic blood pressure 91 mm[Hg] Paula-Siomara Geller DO Work Phone: [facility] 10-08-2023 14:21-0400 Heart rate 93 /min Paula-Siomara Geller DO Work Phone: [facility] 10-08-2023 14:21-0400 SaO2% (BldA) [Mass fraction] 99 % Paula-Siomara Geller DO Work Phone: [facility] 10-08-2023 14:21-0400 Systolic blood pressure 127 mm[Hg] Paula-Siomara Geller DO Work Phone: [facility] 10-04-2023 16:22-0400 Diastolic blood pressure 73 mm[Hg] DNP Lisa Andreas Work Phone: [facility] 10-04-2023 16:22-0400 Heart rate 64 /min DNP Lisa Hudsonle Work Phone: [facility] 10-04-2023 16:22-0400 Respiratory rate 20 /min DNP Lisa Johns Work Phone: [facility] 10-04-2023 16:22-0400 SaO2% (BldA) [Mass fraction] 98 % DNP Lisa Andreas Work Phone: [facility] 10-04-2023 16:22-0400 Systolic blood pressure 116 mm[Hg] DNP Lisa Andreas Work Phone: [facility] 10-04-2023 14:29-0400 Body height 160.02 cm DNP Lisa Andreas Work Phone: [facility] 10-04-2023 14:29-0400 Body temperature 98.5 [degF] DNP Lisa Andreas Work Phone: [facility] 10-04-2023 14:29-0400 Body weight 82 kg DNP Lisa Andreas Work Phone: [facility] 09-29-2023 10:33-0400 Body mass index (BMI) [Ratio] 32.62 kg/m2 Alem Cuadra MD Work Phone: [facility] 09-29-2023 10:33-0400 Body weight 80.9 kg Alem Cuadra MD Work Phone: [facility] 09-29-2023 10:33-0400 Diastolic blood pressure 77 mm[Hg] Alem Cuadra MD Work Phone: [facility] 09-29-2023 10:33-0400 Heart rate 82 /min Alem Cuadra MD Work Phone: [facility] 09-29-2023 10:33-0400 Systolic blood pressure 121 mm[Hg] Alem Cuadra MD Work Phone: [facility] 08-25-2023 19:49-0400 Diastolic blood pressure 72 mm[Hg] DNP Lisa Johns Work Phone: [facility] 08-25-2023 19:49-0400 Heart rate 89 /min DNP Lisa Kaple Work Phone: [facility] 08-25-2023 19:49-0400 Respiratory rate 16 /min DNP Lisa Kaple Work Phone: [facility] 08-25-2023 19:49-0400 SaO2% (BldA) [Mass fraction] 99 % DNP Lisa Kaple Work Phone: [facility] 08-25-2023 19:49-0400 Systolic blood pressure 138 mm[Hg] DNP Lisa Kaple Work Phone: [phone] [place] [address] 08-25-2023 13:07-0400 Body height 158.75 cm DNP Lisa Kaple Work Phone: [facility] 08-25-2023 13:07-0400 Body temperature 98.6 [degF] DNP Lisa Kaple Work Phone: [facility] 08-25-2023 13:07-0400 Body weight 83.2 kg DNP Lisa Kaple Work Phone: [facility] 08-25-2023 12:02-0400 Body height 163.83 cm DNP Lisa Kaple Work Phone: [facility] 08-25-2023 12:02-0400 Body mass index (BMI) [Ratio] 30.6 kg/m2 DNP Lisa Kaple Work Phone: [facility] 08-25-2023 12:02-0400 Body temperature 98.4 [degF] DNP Lisa Kaple Work Phone: [facility] 08-25-2023 12:02-0400 Body weight 82.1 kg DNP Lisa Kaple Work Phone: [facility] 08-25-2023 12:02-0400 Diastolic blood pressure 80 mm[Hg] DNP Lisa Kaple Work Phone: [facility] 08-25-2023 12:02-0400 Systolic blood pressure 124 mm[Hg] DNP Lisa Kaple Work Phone: [facility] 08-23-2023 13:12-0400 Diastolic blood pressure 55 mm[Hg] DNP Lisa Kaple Work Phone: [facility] 08-23-2023 13:12-0400 Heart rate 78 /min DNP Lisa Kaple Work Phone: [facility] 08-23-2023 13:12-0400 Respiratory rate 16 /min DNP Lisa Kaple Work Phone: [facility] 08-23-2023 13:12-0400 SaO2% (BldA) [Mass fraction] 98 % DNP Lisa Kaple Work Phone: [facility] 08-23-2023 13:12-0400 Systolic blood pressure 97 mm[Hg] DNP Lisa Kaple Work Phone: [facility] 08-23-2023 11:29-0400 Body temperature 98.9 [degF] DNP Lisa Kaple Work Phone: [facility] 08-23-2023 09:01-0400 Body height 163.83 cm DNP Lisa Kaple Work Phone: [facility] 08-23-2023 09:01-0400 Body weight 82 kg DNP Lisa Kaple Work Phone: [facility] 07-29-2023 14:42-0400 Diastolic blood pressure 68 mm[Hg] DNP Lisa Kaple Work Phone: [facility] 07-29-2023 14:42-0400 Heart rate 77 /min DNP Lisa Kaple Work Phone: [facility] 07-29-2023 14:42-0400 Respiratory rate 16 /min DNP Lisa Johns Work Phone: [facility] 07-29-2023 14:42-0400 SaO2% (BldA) [Mass fraction] 97 % DNP Lisa Johns Work Phone: [facility] 07-29-2023 14:42-0400 Systolic blood pressure 100 mm[Hg] DNP Lisa Johns Work Phone: [facility] 07-29-2023 13:46-0400 Inhaled oxygen flow rate 2 L/min DNP Lisa Johns Work Phone: [facility] 07-29-2023 13:06-0400 Body temperature 98.3 [degF] DNP Lisa Johns Work Phone: [facility] 07-29-2023 11:39-0400 Body height 158.75 cm DNP Lisa Johns Work Phone: [facility] 07-29-2023 11:39-0400 Body mass index (BMI) [Ratio] 33.3 kg/m2 DNP Lisa Johns Work Phone: [facility] 07-29-2023 11:39-0400 Body weight 83.91 kg DNP Lisa Johns Work Phone: [facility] 07-09-2023 15:30-0500 Body temperature 98.2 [degF] Chance Vera MD Other Phone: [facility] 07-09-2023 15:30-0500 Diastolic blood pressure 106 mm[Hg] Chance Vera MD Other Phone: [facility] 07-09-2023 15:30-0500 Heart rate 95 /min Chance Vera MD Other Phone: [facility] 07-09-2023 15:30-0500 Respiratory rate 18 /min Chance Vera MD Other Phone: [facility] 07-09-2023 15:30-0500 SaO2% (BldA) [Mass fraction] 97 % Chance Vera MD Other Phone: [facility] 07-09-2023 15:30-0500 Systolic blood pressure 155 mm[Hg] Chance Vera MD Other Phone: [facility] 06-10-2023 00:42-0500 Diastolic blood pressure 53 mm[Hg] DNP Lisa Kaple Work Phone: [facility] 06-10-2023 00:42-0500 Heart rate 62 /min DNP Lisa Kaple Work Phone: [facility] 06-10-2023 00:42-0500 Respiratory rate 16 /min DNP Lisa Kaple Work Phone: [facility] 06-10-2023 00:42-0500 SaO2% (BldA) [Mass fraction] 95 % DNP Lisa Kaple Work Phone: [facility] 06-10-2023 00:42-0500 Systolic blood pressure 102 mm[Hg] DNP Lisa Kaple Work Phone: [facility] 06-09-2023 22:39-0500 Body height 157.48 cm DNP Lisa Kaple Work Phone: [facility] 06-09-2023 22:39-0500 Body temperature 97.8 [degF] DNP Lisa Kaple Work Phone: [facility] 06-09-2023 22:39-0500 Body weight 87 kg DNP Lisa Kaple Work Phone: [facility] 05-14-2023 12:50-0500 Body height 160.02 cm Edward Hernandez Other [facility] 05-14-2023 12:50-0500 Body mass index (BMI) [Ratio] 32.77 kg/m2 Edward Hernandez Other [employer] Other 05-14-2023 12:50-0500 Body temperature 98.1 [degF] Edward Hernandez Other [employer] Other 05-14-2023 12:50-0500 Body weight 83.92 kg Edward Hernandez Other [employer] Other 05-14-2023 12:50-0500 Body weight 83.91 kg DNP Lisa Andreas Work Phone: [facility] 05-14-2023 12:50-0500 Diastolic blood pressure 69 mm[Hg] Edward Hernandez Other [facility] 05-14-2023 12:50-0500 Respiratory rate 18 /min Edward Hernandez Other [employer] Other 05-14-2023 12:50-0500 SaO2% (BldA) [Mass fraction] 99 % Edward Hernandez Other [employer] Other 05-14-2023 12:50-0500 Systolic blood pressure 102 mm[Hg] Edward Hernandez Other [facility] 05-06-2023 22:25-0500 Body temperature 99.6 [degF] DNP Lisa Kaple Work Phone: [facility] 05-06-2023 20:42-0500 Body height 157.48 cm DNP Lisa Kaple Work Phone: [facility] 05-06-2023 20:42-0500 Body weight 86.65 kg DNP Lisa Kaple Work Phone: [facility] 05-06-2023 20:42-0500 Diastolic blood pressure 70 mm[Hg] DNP Lisa Kaple Work Phone: [facility] 05-06-2023 20:42-0500 Heart rate 100 /min DNP Lisa Kaple Work Phone: [facility] 05-06-2023 20:42-0500 Respiratory rate 20 /min DNP Lisa Treviñole Work Phone: [facility] 05-06-2023 20:42-0500 SaO2% (BldA) [Mass fraction] 95 % DNP Lisa Kaple Work Phone: [facility] 05-06-2023 20:42-0500 Systolic blood pressure 157 mm[Hg] DNP Lisa Kaple Work Phone: [facility] 08-06-2022 09:00-0400 Body height 160.02 cm Lisa Johns Other [employer] Other 08-06-2022 09:00-0400 Body mass index (BMI) [Ratio] 30.09 kg/m2 Lisa Kapdaniel Other [employer] Other 08-06-2022 09:00-0400 Body weight 77.07 kg Lisa Kapdaniel Other [employer] Other 08-06-2022 09:00-0400 Diastolic blood pressure 72 mm[Hg] Lisa Kapdaniel Other [employer] Other 08-06-2022 09:00-0400 Respiratory rate 18 /min Lisa Kapdaniel Other [employer] Other 08-06-2022 09:00-0400 SaO2% (BldA) [Mass fraction] 91 % Lisa Andreas Other [employer] Other 08-06-2022 09:00-0400 Systolic blood pressure 102 mm[Hg] Lisa Johns Other [employer] Other 07-18-2022 11:15-0500 Body height 157.5 cm Derrell Phipps MD Work Phone: [facility] 07-18-2022 11:15-0500 Body weight 78.02 kg Derrell Phipps MD Work Phone: [facility] 07-18-2022 11:15-0500 Diastolic blood pressure 78 mm[Hg] Derrell Phipps MD Work Phone: [facility] 07-18-2022 11:15-0500 Heart rate 69 /min Derrell Phipps MD Work Phone: [facility] 07-18-2022 11:15-0500 Systolic blood pressure 110 mm[Hg] Derrell Phipps MD Work Phone: [facility] 07-17-2022 14:30-0500 Body height 160.02 cm Brandon Wing Other [employer] Other 07-17-2022 14:30-0500 Body mass index (BMI) [Ratio] 30.84 kg/m2 Brandon Wing Other [employer] Other 07-17-2022 14:30-0500 Body weight 78.97 kg Brandon Wing Other [employer] Other 07-17-2022 14:30-0500 Diastolic blood pressure 67 mm[Hg] Brandon Wing Other [employer] Other 07-17-2022 14:30-0500 Respiratory rate 18 /min Brandon Wing Other [employer] Other 07-17-2022 14:30-0500 SaO2% (BldA) [Mass fraction] 95 % Brandon Wing Other [employer] Other 07-17-2022 14:30-0500 Systolic blood pressure 102 mm[Hg] Brandon Wing Other [employer] Other 06-26-2022 14:45-0500 Diastolic blood pressure 72 mm[Hg] DNP Lisa Kaple Work Phone: [facility] 06-26-2022 14:45-0500 Heart rate 67 /min DNP Lisa Kaple Work Phone: [facility] 06-26-2022 14:45-0500 Respiratory rate 18 /min DNP Lisa Kaple Work Phone: [facility] 06-26-2022 14:45-0500 SaO2% (BldA) [Mass fraction] 97 % DNP Lisa Kaple Work Phone: [facility] 06-26-2022 14:45-0500 Systolic blood pressure 115 mm[Hg] DNP Lisa Kaple Work Phone: [facility] 06-26-2022 12:06-0500 Body height 157.48 cm DNP Lisa Kaple Work Phone: [facility] 06-26-2022 12:06-0500 Body weight 76.35 kg DNP Lisa Kaple Work Phone: [facility] 06-26-2022 12:05-0500 Body temperature 98.1 [degF] DNP Lisa Kaple Work Phone: [facility] 06-26-2022 12:00-0500 Body height 160.02 cm Lisa Kaple Other [employer] Other 06-26-2022 12:00-0500 Body mass index (BMI) [Ratio] 28.62 kg/m2 Lisa Andreas Other [employer] Other 06-26-2022 12:00-0500 Body weight 73.3 kg Lisa Andreas Other [employer] Other 06-26-2022 12:00-0500 Diastolic blood pressure 60 mm[Hg] Lisa Andreas Other [employer] Other 06-26-2022 12:00-0500 Systolic blood pressure 110 mm[Hg] Lisa Andreas Other [employer] Other 06-09-2022 12:45-0500 Body height 160.02 cm Lisa Andreas Other [employer] Other 06-09-2022 12:45-0500 Body mass index (BMI) [Ratio] 27.93 kg/m2 Lisa Andreas Other [employer] Other 06-09-2022 12:45-0500 Body weight 71.53 kg Lisa Andreas Other [employer] Other 06-09-2022 12:45-0500 Diastolic blood pressure 78 mm[Hg] Lisa Johns Other [employer] Other 06-09-2022 12:45-0500 Respiratory rate 18 /min Lisa Johns Other [employer] Other 06-09-2022 12:45-0500 SaO2% (BldA) [Mass fraction] 98 % Lisa Johns Other [employer] Other 06-09-2022 12:45-0500 Systolic blood pressure 120 mm[Hg] Lisa Johns Other [employer] Other 05-19-2022 15:15-0500 Body height 160.02 cm Brandon Alfreddiff Other [employer] Other 05-19-2022 15:15-0500 Body mass index (BMI) [Ratio] 28.71 kg/m2 Brandon Alfreddiff Other [employer] Other 05-19-2022 15:15-0500 Body weight 73.53 kg Brandon Alfreddiff Other [employer] Other 05-19-2022 15:15-0500 Diastolic blood pressure 74 mm[Hg] Brandon Alfreddiff Other [employer] Other 05-19-2022 15:15-0500 Respiratory rate 18 /min Brandon Alfreddiff Other [employer] Other 05-19-2022 15:15-0500 SaO2% (BldA) [Mass fraction] 97 % Brandonnirav Wing Other [employer] Other 05-19-2022 15:15-0500 Systolic blood pressure 113 mm[Hg] Brandon Wing Other [employer] Other 04-28-2022 16:00-0500 Body height 160.02 cm Lisa Johns Other [employer] Other 04-28-2022 16:00-0500 Body mass index (BMI) [Ratio] 26.67 kg/m2 Lisa Andreas Other [employer] Other 04-28-2022 16:00-0500 Body temperature 96.7 [degF] Lisa Andreas Other [employer] Other 04-28-2022 16:00-0500 Body weight 68.31 kg Lisa Andreas Other [employer] Other 04-28-2022 16:00-0500 Diastolic blood pressure 68 mm[Hg] Lisa Andreas Other [employer] Other 04-28-2022 16:00-0500 Respiratory rate 18 /min Lisa Johns Other [employer] Other 04-28-2022 16:00-0500 SaO2% (BldA) [Mass fraction] 97 % Lisa Andreas Other [employer] Other 04-28-2022 16:00-0500 Systolic blood pressure 112 mm[Hg] Lisa Johns Other [employer] Other 04-23-2022 09:30-0500 Body height 160.02 cm Lisa Andreas Other [employer] Other 04-23-2022 09:30-0500 Body mass index (BMI) [Ratio] 26.18 kg/m2 Lisa Andreas Other [employer] Other 04-23-2022 09:30-0500 Body weight 67.04 kg Lisa Johns Other [employer] Other 04-23-2022 09:30-0500 Diastolic blood pressure 70 mm[Hg] Lisa Johns Other [employer] Other 04-23-2022 09:30-0500 Respiratory rate 18 /min Lisa Johns Other [employer] Other 04-23-2022 09:30-0500 SaO2% (BldA) [Mass fraction] 99 % Lisapeter Johns Other [employer] Other 04-23-2022 09:30-0500 Systolic blood pressure 120 mm[Hg] Lisa Johns Other [employer] Other 02-13-2022 12:15-0400 Body height 160.02 cm Lisa Johns Other [employer] Other 02-13-2022 12:15-0400 Body mass index (BMI) [Ratio] 29.63 kg/m2 Lisa Johns Other [employer] Other 02-13-2022 12:15-0400 Body temperature 96.5 [degF] Lisa Johns Other [employer] Other 02-13-2022 12:15-0400 Body weight 75.89 kg Lisa Johns Other [employer] Other 02-13-2022 12:15-0400 Diastolic blood pressure 60 mm[Hg] Lisa Johns Other [employer] Other 02-13-2022 12:15-0400 Respiratory rate 18 /min Lisa Johns Other [facility] [employer] Other 02-13-2022 12:15-0400 SaO2% (BldA) [Mass fraction] 99 % Lisa Johns Other [employer] [facility] [employer] Other 02-13-2022 12:15-0400 Systolic blood pressure 100 mm[Hg] Lisa Johns Other [facility] [employer] Other 02-12-2022 22:55-0400 Body height 157.48 cm DNP Lisa Treviñole Work Phone: [facility] 02-12-2022 22:55-0400 Body temperature 97.5 [degF] DNP Lisa Treviñole Work Phone: [facility] 02-12-2022 22:55-0400 Body weight 75 kg DNP Lisa Kaple Work Phone: [facility] 02-12-2022 22:55-0400 Diastolic blood pressure 84 mm[Hg] DNP Lisa Kaple Work Phone: [facility] 02-12-2022 22:55-0400 Heart rate 70 /min DNP Lisa Kaple Work Phone: [facility] 02-12-2022 22:55-0400 Respiratory rate 20 /min DNP Lisa Kaple Work Phone: [facility] 02-12-2022 22:55-0400 SaO2% (BldA) [Mass fraction] 97 % DNP Lisa Kaple Work Phone: [facility] 02-12-2022 22:55-0400 Systolic blood pressure 118 mm[Hg] DNP Lisa Kaple Work Phone: [facility] 01-16-2022 08:45-0400 Body height 160.02 cm Lisa Andreas Other [employer] Other 01-16-2022 08:45-0400 Body mass index (BMI) [Ratio] 30.68 kg/m2 Lisa Andreas Other [employer] Other 01-16-2022 08:45-0400 Body temperature 97.3 [degF] Lisa Andreas Other [employer] Other 01-16-2022 08:45-0400 Body weight 78.56 kg Lisa Andreas Other [employer] Other 01-16-2022 08:45-0400 Diastolic blood pressure 70 mm[Hg] Lisa Johns Other [employer] Other 01-16-2022 08:45-0400 Respiratory rate 18 /min Lisa Andreas Other [employer] Other 01-16-2022 08:45-0400 SaO2% (BldA) [Mass fraction] 98 % Lisa Andreas Other [employer] Other 01-16-2022 08:45-0400 Systolic blood pressure 120 mm[Hg] Lisa Johns Other [employer] Other 01-01-2022 16:45-0400 Body height 160.02 cm Brandon Wing Other [employer] Other 01-01-2022 16:45-0400 Body mass index (BMI) [Ratio] 30.38 kg/m2 Brandon Wing Other [employer] Other 01-01-2022 16:45-0400 Body weight 77.79 kg Brandon Alfreddiff Other [employer] Other 01-01-2022 16:45-0400 Diastolic blood pressure 72 mm[Hg] Brandon Alfreddiff Other [employer] Other 01-01-2022 16:45-0400 SaO2% (BldA) [Mass fraction] 97 % Brandon Alfreddiff Other [employer] Other 01-01-2022 16:45-0400 Systolic blood pressure 119 mm[Hg] Brandon Alfreddiff Other [employer] Other 11-19-2021 10:30-0400 Body height 160.02 cm Fred Rupal Other [employer] Other 11-19-2021 10:30-0400 Body mass index (BMI) [Ratio] 31.6 kg/m2 Fred Adalidcarlos manuel Other [employer] Other 11-19-2021 10:30-0400 Body temperature 97.9 [degF] Fred Cordobacarlos manuel Other [employer] Other 11-19-2021 10:30-0400 Body weight 80.92 kg Fred Goldsmith Other [employer] Other 11-19-2021 10:30-0400 Diastolic blood pressure 78 mm[Hg] Fred Goldsmith Other [employer] Other 11-19-2021 10:30-0400 Respiratory rate 18 /min Fred Goldsmith Other [employer] Other 11-19-2021 10:30-0400 SaO2% (BldA) [Mass fraction] 97 % Fred Goldsmith Other [employer] Other 11-19-2021 10:30-0400 Systolic blood pressure 110 mm[Hg] Fred Goldsmith Other [employer] Other 11-13-2021 16:45-0400 Body height 160.02 cm Brandon Wing Other [employer] Other 11-13-2021 16:45-0400 Body mass index (BMI) [Ratio] 31.81 kg/m2 Brandon Mecca Other [employer] Other 11-13-2021 16:45-0400 Body weight 81.47 kg Brandon Wing Other [employer] Other 11-13-2021 16:45-0400 Diastolic blood pressure 70 mm[Hg] Brandon Wing Other [employer] Other 11-13-2021 16:45-0400 Respiratory rate 18 /min Brandon Wing Other [employer] Other 11-13-2021 16:45-0400 SaO2% (BldA) [Mass fraction] 97 % Brandon Wing Other [employer] Other 11-13-2021 16:45-0400 Systolic blood pressure 97 mm[Hg] Brandon Wing Other [employer] Other 10-03-2021 09:15-0400 Body height 160.02 cm Isabel Redmond Other [employer] Other 09-12-2021 14:30-0400 Body height 160.02 cm Brandon Wing Other [employer] Other 09-12-2021 14:30-0400 Body mass index (BMI) [Ratio] 34.34 kg/m2 Brandon Alfreddiff Other [employer] Other 09-12-2021 14:30-0400 Body weight 87.95 kg Brandon Alfreddiff Other [employer] Other 09-12-2021 14:30-0400 Diastolic blood pressure 67 mm[Hg] Brandon Alfreddiff Other [employer] Other 09-12-2021 14:30-0400 Respiratory rate 18 /min Brandon Wing Other [employer] Other 09-12-2021 14:30-0400 SaO2% (BldA) [Mass fraction] 95 % Brandon Alfreddiff Other [employer] Other 09-12-2021 14:30-0400 Systolic blood pressure 101 mm[Hg] Brandonnirav Alfreddiff Other [employer] Other 08-21-2021 16:30-0400 Body height 160.02 cm Lisa Johns Other [employer] Other 08-21-2021 16:30-0400 Body mass index (BMI) [Ratio] 34.36 kg/m2 Lisa Johns Other [employer] Other 08-21-2021 16:30-0400 Body weight 88 kg Lisa Andreas Other [employer] Other 08-21-2021 16:30-0400 Diastolic blood pressure 67 mm[Hg] Lisa Andreas Other [employer] Other 08-21-2021 16:30-0400 Respiratory rate 18 /min Lisa Johns Other [employer] Other 08-21-2021 16:30-0400 SaO2% (BldA) [Mass fraction] 97 % Lisapeter Johns Other [employer] Other 08-21-2021 16:30-0400 Systolic blood pressure 102 mm[Hg] Lisa Johns Other [employer] Other Encounters Encounter Date Encounter Type Care Provider Facility Start: 06-06-2024 End: 06-06-2024 ambulatory Cassandra Tinsley APRN.[facility] Work Phone: Pain Management Comment on above: Test results Start: 06-03-2024 End: 06-06-2024 E-mail encounter from caregiver Alejandra Cabrera DO Work Phone: Neurology Start: 06-03-2024 End: 06-07-2024 Telephone encounter Cassandra Tinsley APRN.[facility] Work Phone: Pain Management Comment on above: Results Start: 06-03-2024 End: 06-03-2024 Office outpatient visit 25 minutes Cassandra Tinsley APRN.[facility] Work Phone: Pain Management Comment on above: Lumbosacral spondylo sis without myelopathy (Primary Dx); Polyarthralgia; Chronic pain syndrome; Neck pain Start: 06-03-2024 End: 06-06-2024 ambulatory Alejandra Cabrera DO Work Phone: Neurology Comment on above: IIH (idiopathic intr acranial hypertension) (Primary Dx); Blurry vision; Worsening headaches today's visit Start: 06-03-2024 End: 06-03-2024 Telemedicine consultation with patient Alejandra Cabrera DO Work Phone: Neurology Start: 05-30-2024 End: 05-30-2024 ambulatory No Pcp [facility] Start: 05-30-2024 End: 05-30-2024 Patient encounter procedure No Pcp [facility] Start: 05-27-2024 End: 05-30-2024 ambulatory Emilee Roca REGISTRATION SPECIALIST.[facility] Work Phone: Neurology Comment on above: Headaches My neck Start: 05-23-2024 End: 05-23-2024 Departed Referred PHYSICIAN NO [facility] [address] Work Phone: Start: 05-23-2024 End: 05-23-2024 ambulatory PHYSICIAN NO [facility] Work Phone: Start: 05-20-2024 End: 05-20-2024 Subsequent hospital visit by physician Anusha [facility] Start: 05-20-2024 End: 05-20-2024 ambulatory OSIEL E OSIEL Facility:[facility] Start: 05-20-2024 End: 05-20-2024 Patient encounter procedure Osiel E Osiel DO Work Phone: Pain Management Comment on above: Lumbosacral spondylo sis without myelopathy (Primary Dx); Polyarthralgia; Chronic pain syndrome; Degeneration of intervertebral disc of lumbar region with discogenic back pain and lower extremity pain; Chronic bilateral low back pain with bilateral sciatica Start: 05-13-2024 End: 05-13-2024 ambulatory Osiel E Osiel DO Work Phone: Pain Management Comment on above: PAIN QUESTIONNAIRE Start: 05-13-2024 End: 05-13-2024 E-mail encounter from caregiver Osiel E Osiel DO Work Phone: Pain Management Start: 04-21-2024 Non-patient / Non-visit PHYSICIAN [facility] Work Phone: Start: 04-05-2024 End: 04-05-2024 ambulatory Emilee Roca REGISTRATION SPECIALIST.[facility] Work Phone: Neurology Comment on above: IIH (idiopathic intr acranial hypertension) Start: 04-05-2024 End: 04-05-2024 Telemedicine consultation with patient Emilee Roca REGISTRATION SPECIALIST.[facility] Work Phone: Neurology Start: 03-19-2024 End: 03-19-2024 ambulatory Eli Antony ONLINE EDUCATION MANAGER-BC Work Phone: [facility] Work Phone: Start: 03-19-2024 End: 03-19-2024 Patient encounter procedure Eli Brooksimore ONLINE EDUCATION MANAGER-BC Work Phone: [facility] Work Phone: Start: 03-16-2024 End: 03-16-2024 ambulatory Osiel Turner Osiel DO Work Phone: Pain Management Comment on above: Questionnaire Submis geronimo Start: 03-16-2024 End: 03-16-2024 E-mail encounter from caregiver Osiel E Osiel DO Work Phone: Pain Management Start: 03-06-2024 End: 03-08-2024 ambulatory Josefa Falk DO Work Phone: Neurology Pain Comment on above: Medication Start: 02-24-2024 End: 02-24-2024 ambulatory EMILEE ROCA Facility:[facility] Start: 02-24-2024 End: 02-24-2024 Office outpatient new 30 minutes Josefa Falk DO Work Phone: Neurology Pain Comment on above: Polyarthralgia (Prim anaid Dx); Chronic pain syndrome; Chronic bilateral low back pain with right-sided sciatica Start: 02-08-2024 End: 02-08-2024 Emergency department patient visit DNP Lisa Johns Work Phone: [facility] Work Phone: Start: 01-29-2024 End: 01-29-2024 ambulatory DNP Lisa Treviñodaniel Work Phone: [facility] Work Phone: Start: 01-29-2024 End: 01-29-2024 Patient encounter procedure DNP Lisa Andreas Work Phone: [facility] Work Phone: Start: 01-07-2024 End: 01-07-2024 Telephone encounter Tamara Sherwood MD Work Phone: Ophthalmology Start: 01-01-2024 End: 01-01-2024 ambulatory Emilee Roca APRN.[employer] Work Phone: Neurology Comment on above: IIH (idiopathic intr acranial hypertension); Class 1 obesity due to excess calories with serious comorbidity and body mass index (BMI) of 32.0 to 32.9 in adult Start: 01-01-2024 End: 01-01-2024 Telemedicine consultation with patient Emilee Roca REGISTRATION SPECIALIST.[employer] Work Phone: Neurology Start: 12-25-2023 End: 12-25-2023 ambulatory TAMANNA BARRY Facility:[facility] Start: 12-25-2023 End: 12-25-2023 Patient encounter procedure Tamanna Barry OD Work Phone: Ophthalmology Comment on above: IIH (idiopathic intr acranial hypertension) (Primary Dx); Accommodation spasm, bilateral; Hyperopic astigmatism of both eyes Start: 12-24-2023 Non-patient / Non-visit DNP Tad Johns Work Phone: [facility] [place] Work Phone: Start: 12-23-2023 End: 12-23-2023 Emergency department patient visit DNP Lisa Andreas Work Phone: [facility] Work Phone: Start: 11-16-2023 Non-patient / Non-visit DNP Tad Johns Work Phone: [facility] [place] Work Phone: Start: 10-12-2023 End: 10-12-2023 ambulatory Alem Cuadra MD Work Phone: Rheumatology Comment on above: Polyarthralgia (Prim anaid Dx); Chronic pain syndrome Start: 10-12-2023 End: 10-12-2023 Telemedicine consultation with patient Alem Cuadra MD Work Phone: Rheumatology Start: 10-09-2023 End: 10-09-2023 ambulatory Rafy Goldberg MD Work Phone: Neurology [facility] Comment on above: IIH (idiopathic intr acranial hypertension) (Primary Dx); Class 1 obesity due to excess calories with serious comorbidity and body mass index (BMI) of 32.0 to 32.9 in adult Start: 10-09-2023 End: 10-09-2023 Telemedicine consultation with patient Rafy Goldberg MD Work Phone: Neurology [facility] Start: 10-08-2023 End: 10-08-2023 ambulatory PAULA-SIOMARA GELLER Facility:[facility] Start: 10-08-2023 End: 10-08-2023 Patient encounter procedure Paula-Siomara Geller DO Work Phone: General Surgery Comment on above: RLQ abdominal pain ( Primary Dx); Metal foreign body in abdomen Start: 10-06-2023 End: 10-06-2023 ambulatory BAIRON DURAN Not Available Start: 10-06-2023 Non-patient / Non-visit DEJAH Johns Work Phone: [facility] [place] Work Phone: Start: 10-04-2023 End: 10-04-2023 Emergency department patient visit DEJAH Johns Work Phone: [facility] Work Phone: Start: 09-29-2023 End: 09-29-2023 ambulatory Katlin Bunchdell RT(R) Radiology Comment on above: Radiology XR Start: 09-29-2023 Patient encounter procedure Katlinkiko BunchLionel RT(R) Radiology Start: 09-29-2023 End: 09-29-2023 Subsequent hospital visit by physician Xr [facility] Radiology Comment on above: Polyarthralgia [M25. 50] Start: 09-29-2023 End: 09-29-2023 Office outpatient new 60 minutes Alem Cuadra MD Work Phone: Rheumatology Comment on above: Polyarthralgia (Prim anaid Dx); Elevated C-reactive protein (CRP) Start: 09-28-2023 Non-patient / Non-visit DNP Tad Johns Work Phone: [facility] [place] Work Phone: Start: 08-27-2023 End: 08-27-2023 ambulatory BAIRON DURAN Not Available Start: 08-25-2023 End: 08-25-2023 ambulatory Charlotte Carpenter RN NURSE DELIVERY AND [employer]IL [employer]TER Comment on above: Swollen Glands Start: 08-25-2023 Non-patient / Non-visit DNP Tad Johns Work Phone: [facility] Work Phone: Start: 08-25-2023 End: 08-25-2023 Emergency department patient visit DEJAH Montesfer Andreas Work Phone: [facility]-Emergency Room Work Phone: Start: 08-25-2023 End: 08-25-2023 Patient encounter procedure DEJAH MckinnonLisa Andreas Work Phone: [facility] [place] Work Phone: Start: 08-23-2023 End: 08-23-2023 Emergency department patient visit DEJAH Montesfer Andreas Work Phone: [facility]-Emergency Room Work Phone: Start: 08-14-2023 End: 08-14-2023 ambulatory BAIRON DURAN Not Available Start: 08-05-2023 End: 08-05-2023 ambulatory BAIRON DURAN Not Available Start: 07-29-2023 End: 07-29-2023 Admission to same day surgery center DNP Lisa Treviñodaniel Work Phone: [facility]Surgery Center [place] Start: 07-29-2023 End: 07-29-2023 ambulatory DNP Lisapeter Treviñodaniel Work Phone: [facility] Work Phone: Start: 07-20-2023 End: 07-20-2023 Departed Referred DNP Lisa Treviñodaniel Work Phone: [facility]-Pre-Surgical Testing Work Phone: Start: 07-20-2023 End: 07-20-2023 Patient encounter procedure DNP Lisa Treviñodaniel Work Phone: [facility]-Pre-Surgical Testing Work Phone: Start: 07-20-2023 End: 07-20-2023 ambulatory Lisa Johns Facility:[facility] Start: 07-09-2023 End: 07-09-2023 Emergency department patient visit Chance Vera MD Other Phone: [facility] Comment on above: Jaw symptoms/complai nts (Has L jaw fx, was referred here to get CT scan. C/o jaw locking, and tenderness. ) Start: 07-09-2023 End: 07-09-2023 Emergency department patient visit CHANCE VERA Facility:[facility] Start: 07-02-2023 End: 07-02-2023 ambulatory BAIRON DURAN Not Available Start: 06-10-2023 End: 06-10-2023 ambulatory Lisa Johns Other [employer] Other Start: 06-10-2023 Telephone encounter Lisa Tony [facility] [place] Start: 06-09-2023 End: 06-10-2023 Emergency department patient visit DNP Lisa Johns Work Phone: [facility]Emergency Room Work Phone: Start: 05-14-2023 End: 05-14-2023 ambulatory Edward Hernandez Other [employer] Other Start: 05-14-2023 Office outpatient vi sit 15 minutes Edward Hernandez [facility] [address] Start: 05-14-2023 End: 05-14-2023 Patient encounter procedure DNP Lisa Johns Work Phone: [facility] [place] Work Phone: Start: 05-12-2023 End: 05-12-2023 ambulatory Lisa Kapdaniel Other [employer] Other Start: 05-12-2023 Telephone encounter Lisa Treviñodaniel [facility] [place] Start: 05-07-2023 End: 05-07-2023 ambulatory Lisapeter Johns Other [employer] Other Start: 05-07-2023 Telephone encounter Lisa Treviñodaniel [facility] [place] Start: 05-06-2023 End: 05-06-2023 Emergency department patient visit DNP Lisa Johns Work Phone: [facility]Emergency Room Work Phone: Start: 04-20-2023 End: 04-20-2023 ambulatory Lisapeter Johns Other [employer] Other Start: 04-20-2023 Telephone encounter Lisa Andreas [facility] Start: 04-20-2023 End: 04-20-2023 Patient encounter procedure DNP Lisa Johns Work Phone: [facility] [place] Work Phone: Start: 02-03-2023 End: 02-03-2023 ambulatory Lisa Johns Other [employer] Other Start: 02-03-2023 Telephone encounter Lisa Johns [facility] [place] Start: 12-22-2022 End: 12-22-2022 Patient encounter procedure DNP Lisa Johns Work Phone: [facility] C[facility] for [facility] Start: 12-12-2022 End: 12-12-2022 ambulatory Lisa Johns Other [employer] Other Start: 12-12-2022 Telephone encounter Lisa Tony [facility] Start: 11-27-2022 End: 11-27-2022 ambulatory Lisa Johns Other [employer] Other Start: 11-27-2022 Telephone encounter Lisa Tony [facility] [place] Start: 11-25-2022 Telephone encounter Lisa Johns [facility] [place] Start: 11-25-2022 End: 11-25-2022 ambulatory DNP Lisapeter Treviñodaniel Work Phone: [facility] Work Phone: Start: 11-25-2022 End: 11-25-2022 Patient encounter procedure DNP Lisa Johns Work Phone: [facility]-X-Ray [facility] Start: 09-09-2022 End: 09-09-2022 ambulatory Lisa Johns Other [employer] Other Start: 09-09-2022 Telephone encounter Lisa Tony [facility] [place] Start: 08-06-2022 End: 08-06-2022 ambulatory Lisa Johns Other [employer] Other Start: 08-06-2022 Office outpatient vi sit 25 minutes Lisa Johns [facility] Start: 07-18-2022 End: 07-18-2022 ambulatory Lisa Johns Other [employer] Other Start: 07-18-2022 Telephone encounter Lisa Tony [facility] Start: 07-18-2022 End: 07-18-2022 Patient encounter procedure Derrell Phipps MD Work Phone: Cardiology Comment on above: Atypical chest pain (Primary Dx) Start: 07-17-2022 Registered Recurring DNP Jyoti Johns Work Phone: [facility]Weight Management Work Phone: Start: 07-17-2022 Follow-up encounter Brandon [facility] Start: 07-17-2022 End: 07-17-2022 ambulatory DNP Lisa Andreas Work Phone: [facility] Work Phone: Start: 07-17-2022 End: 07-17-2022 Patient encounter procedure DNP Lisa Andreas Work Phone: [facility]-Electrodiagnostics Work Phone: Start: 07-17-[address] Marcel Lira II Facility:[id number] Start: 07-08-2022 End: 07-08-2022 ambulatory Lisa Johns Other [employer] Other Start: 07-08-2022 Telephone encounter Lisa oTny [facility] Start: 07-07-2022 End: 07-07-2022 Patient encounter procedure DNP Lisa Johns Work Phone: [facility]-Lab [facility] Start: 07-07-2022 End: 07-07-2022 ambulatory DNP Lisa Johns Work Phone: [facility] Work Phone: Start: 07-07-2022 Telephone encounter Lisa Tony [facility] Start: 06-30-2022 End: 06-30-2022 ambulatory Lisa Johns Other [employer] Other Start: 06-30-2022 Telephone encounter Lisa Tony [facility] [place] Start: 06-27-2022 End: 06-27-2022 ambulatory Lisa Johns Other [employer] Other Start: 06-27-2022 Telephone encounter Lisa Treviñodaniel [facility] Start: 06-26-2022 End: 06-27-2022 ambulatory LISA TREVIÑODANIEL Facility: Start: 06-26-2022 Office outpatient vi sit 40 minutes Lisa Kapdaniel [facility] Start: 06-26-2022 Telephone encounter Lisa Tony [facility] [place] Start: 06-26-2022 End: 06-26-2022 Emergency department patient visit DNP Lisa Johns Work Phone: [facility]Emergency [facility] Work Phone: Start: 06-18-2022 End: 06-18-2022 ambulatory DNP Lisa Johns Work Phone: [facility] Work Phone: Start: 06-18-2022 End: 06-18-2022 Patient encounter procedure DNP Lisa Johns Work Phone: [facility]Center for [facility] Care Work Phone: Start: 06-13-2022 End: 06-13-2022 ambulatory Lisa Johns Other [employer] Other Start: 06-13-2022 Telephone encounter Lisa Tony [facility] [place] Start: 06-09-2022 End: 06-09-2022 ambulatory Lisa Johns Other [employer] Other Start: 06-09-2022 Office outpatient vi sit 25 minutes Lisa Johns [facility] [place] Start: 06-03-2022 End: 06-03-2022 ambulatory Brandon Wing Other [employer] Other Start: 06-03-2022 Telephone encounter Brandon [facility] Start: 05-19-2022 Registered Recurring DNP Jyoti Johns Work Phone: [facility]Weight Management Work Phone: Start: 05-19-2022 End: 05-19-2022 ambulatory Brandon Wing Other [employer] Other Start: 05-19-2022 Follow-up encounter Brandon iqbal [facility] Start: 05-13-2022 End: 05-13-2022 ambulatory Brandon Wing Other [employer] Other Start: 05-13-2022 Telephone encounter Brandon iqbal [facility] Start: 04-28-2022 End: 04-28-2022 ambulatory Lisa Johns Other [employer] Other Start: 04-28-2022 Office outpatient vi sit 25 minutes Lisa Johns [facility] [place] Start: 04-28-2022 Telephone encounter Lisa [facility] Start: 04-24-2022 End: 04-24-2022 ambulatory Lisa Johns Other [employer] Other Start: 04-24-2022 Telephone encounter Lisa Tony [facility] Start: 04-23-2022 Office outpatient vi sit 25 minutes Lisa Johns [facility] [place] Start: 04-23-2022 End: 04-23-2022 ambulatory DNP Lisapeter Treviñodaniel Work Phone: [facility] Work Phone: Start: 04-23-2022 End: 04-23-2022 Patient encounter procedure DNP Lisapeter Treviñodaniel Work Phone: [facility]X-Ray [facility] Start: 04-14-2022 End: 04-14-2022 ambulatory Lisa Johns Other [employer] Other Start: 04-14-2022 Telephone encounter Lisa Tony [facility] [place] Start: 04-08-2022 End: 04-08-2022 ambulatory Lisa Johns Other [employer] Other Start: 04-08-2022 Telephone encounter Lisa Tony [facility] [place] Start: 03-19-2022 Registered Recurring DNP Jyotisoraya Treviñodaniel Work Phone: [facility] Start: 03-12-2022 End: 03-12-2022 ambulatory Lisa Johns Other [employer] Other Start: 03-12-2022 Telephone encounter Lisa Tony [facility] [place] Start: 03-04-2022 End: 03-04-2022 ambulatory Brandon Wing Other [employer] Other Start: 03-04-2022 Telephone encounter Brandon Tony [facility] Start: 02-13-2022 End: 02-13-2022 ambulatory Lisa Johns Other [employer] Other Start: 02-13-2022 Office outpatient vi sit 25 minutes Lisa Johns [facility] Start: 02-12-2022 End: 02-13-2022 Emergency department patient visit DNP Lisa Johns Work Phone: [facility]-Emergency Room Start: 02-10-2022 End: 02-10-2022 ambulatory DNP Lisapeter Treviñodaniel Work Phone: [facility] Work Phone: Start: 02-10-2022 End: 02-10-2022 Patient encounter procedure DNP Lisa Treviñodaniel Work Phone: [facility] [place] Start: 02-03-2022 End: 02-04-2022 ambulatory FADUMO COLUNGA Facility: Start: 01-23-2022 End: 01-23-2022 Patient encounter procedure DNP Lisapeter Treviñodaniel Work Phone: [facility]-Lab [facility] [place] Start: 01-16-2022 End: 01-16-2022 ambulatory Lisa Johns Other [employer] Other Start: 01-16-2022 Office outpatient vi sit 25 minutes Lisa Johns [facility] Start: 01-15-2022 End: 01-15-2022 ambulatory Lisa Johns Other [employer] Other Start: 01-15-2022 Telephone encounter Lisa Tony [facility] [address] Start: 01-10-2022 End: 01-10-2022 Patient encounter procedure DNP Lisapeter Treviñodaniel Work Phone: [facility]-MRI [facility] [place] Start: 01-01-2022 Registered Recurring DEJAH Jyoti Treviñodaniel Work Phone: [facility]-Weight Management Start: 01-01-2022 (Televisit) Televisit Brandon Wing [facility] Start: 01-01-2022 End: 01-01-2022 ambulatory Brandon Mecca Other [employer] Other Start: 11-21-2021 End: 11-21-2021 ambulatory Lisa Andreas Other [employer] Other Start: 11-21-2021 Telephone encounter Lisa Andreas [facility] Start: 11-19-2021 End: 11-19-2021 ambulatory Fred Rpual Other [employer] Other Start: 11-19-2021 Office outpatient vi sit 15 minutes Fred Goldsmith [facility] Start: 11-13-2021 End: 11-13-2021 ambulatory Brandon Wing Other [employer] Other Start: 11-13-2021 Follow-up encounter Brandon iqbal [facility] Start: 10-25-2021 End: 10-25-2021 ambulatory Brandon Wing Other [employer] Other Start: 10-25-2021 Telephone encounter Brandon Mecca Tony [facility] Start: 10-23-2021 End: 10-23-2021 ambulatory FADUMO CRISTINE Facility: Start: 10-03-2021 End: 10-03-2021 ambulatory Isabel Redmond Other [employer] Other Start: 10-03-2021 IBT FOR OBESITY GROU P 2-10 30M Isabel Redmond [facility] Start: 10-01-2021 End: 10-01-2021 ambulatory Brandon Wing Other [employer] Other Start: 10-01-2021 Telephone encounter Brandon hernandez [facility] Start: 09-25-2021 End: 09-25-2021 ambulatory Isabel Redmond Other [employer] Other Start: 09-25-2021 Telephone encounter Brandon hernandez [facility] Start: 09-16-2021 End: 09-16-2021 ambulatory Brandon Wing Other [employer] Other Start: 09-16-2021 Telephone encounter Brandon Tony [facility] Start: 09-13-2021 End: 09-13-2021 ambulatory Brandon Wing Other [employer] Other Start: 09-13-2021 Telephone encounter Brandon Tony [facility] Start: 09-12-2021 End: 09-12-2021 ambulatory Brandon Wing Other [employer] Other Start: 09-12-2021 Nutrition therapy Brandon Lopez [facility] Start: 08-23-2021 End: 08-23-2021 ambulatory Isabel Redmond Other [employer] Other Start: 08-23-2021 Telephone encounter Isabel Lopez [facility] Start: 08-22-2021 End: 08-22-2021 ambulatory Lisa Johns Other [employer] Other Start: 08-22-2021 Office outpatient vi sit 10 minutes Lisa MINOR [facility] [place] Start: 08-22-2021 Telephone encounter Lisa [facility] Start: 08-21-2021 End: 08-21-2021 ambulatory Lisa Johns Other [employer] Other Start: 08-21-2021 Encounter for genera l adult medical examination without abnormal findings Lisa Johns [facility] [place] Start: 08-21-2021 Initial preventive medicine new pt age 18-39yrs Lisa Johns [facility] [place] Start: 05-07-2017 End: 05-08-2017 Ambulatory Flaquito Pablo Facility:[facility] Start: 04-09-2017 End: 04-09-2017 Emergency department patient visit [employer] Facility:[facility] Start: 04-06-2017 End: 04-07-2017 Ambulatory Flaquito Turner Samy Facility:[facility] Start: 03-06-2017 End: 03-06-2017 Ambulatory Flaquito Turner Samy Facility:[facility] Start: 03-02-2017 End: 03-02-2017 Ambulatory Flaquito Turner Samy Facility:[facility] Start: 02-12-2017 End: 02-12-2017 Ambulatory Parisa Babcock Facility:[facility] Start: 01-24-2017 End: 01-24-2017 Emergency department patient visit SHERI Greenwood Justine [facility] Procedures Date Procedure Procedure Detail Performing Clinician Start: 02-08-2024 Computed tomography of thoracic spine without contrast DEJAH Johns Work Phone: Start: 02-08-2024 CT cervical spine without contrast DNP Lisa Johns Work Phone: Start: 02-08-2024 CT of head without contrast DNP Lisa Johns Work Phone: Start: 02-08-2024 CT of lumbar spine without contrast DNP Lisa Johns Work Phone: Start: 12-25-2023 Computerized ophthalmic imaging optic nerve Tamanna Barry OD Work Phone: Start: 12-23-2023 Duplex scan veins of upper limb DEJAH Johns Work Phone: Start: 12-23-2023 Plain X-ray of right forearm DNP Lisa Johns Work Phone: Start: 12-23-2023 Plain X-ray of right hand DNP Lisa pan Work Phone: Start: 10-04-2023 Plain X-ray of right hip DNP Lisa condon Work Phone: Start: 10-04-2023 Computed tomography of abdomen and pelvis with contrast DEJAH Johns Work Phone: Start: 09-29-2023 Radiologic examination sacroiliac jnts <3 views Alem Cuadra MD Work Phone: Start: 08-25-2023 CSF (PCR) DEJAH Johns Work Phone: Start: 08-25-2023 Investigation of transfusion reaction DEJAH Johns Work Phone: Start: 08-25-2023 CT cervical spine without contrast DEJAH Johns Work Phone: Start: 08-25-2023 CT of head without contrast DEJAH Johns Work Phone: Start: 08-23-2023 Blood culture for bacteria, including anaerobic screen DNP Lisa Johns Work Phone: Start: 08-23-2023 Respiratory Panel (PCR) DEJAH sanchez Work Phone: Start: 08-23-2023 Streptococcus pyogenes antigen assay DNP Lisa Johns Work Phone: Start: 08-23-2023 Plain chest X-ray DEJAH Johns Work Phone: Start: 08-23-2023 Computed tomography of abdomen and pelvis with contrast DEJAH Johns Work Phone: Start: 07-29-2023 Laparoscopic cholecystectomy DEJAH Johns Work Phone: Start: 07-09-2023 Ct maxillofacial w/contrast material Chance Vera MD Other Phone: Start: 07-09-2023 Basic metabolic panel calcium total Laila A. Zohaib REGISTRATION SPECIALIST-[employer] Other Phone: Start: 06-09-2023 CT of abdomen and pelvis without contrast DEJAH Johns Work Phone: Start: 05-06-2023 SARS-CoV-2, Influenza & RSV (PCR) DNP Lisa Johns Work Phone: Start: 12-22-2022 Ultrasonography of left breast DEJAH Johns Work Phone: Start: 11-25-2022 Plain X-ray of left hand DNP Lisa Chatman ple Work Phone: Start: 11-25-2022 Plain X-ray of right hand DNP Lisa Dahl aple Work Phone: Start: 07-18-2022 Ecg routine ecg w/least 12 lds i&r only [facility] Provider Start: 07-07-2022 Piperacillin/tazobactam Lisa Johns Other Start: 07-07-2022 Urine culture DNP Lisa Johns Work Phone: Start: 06-26-2022 Plain chest X-ray [facility] Lisa Johns Work Phone: Start: 06-18-2022 Bilateral mammography DEJAH Johns Work Phone: Start: 06-18-2022 Ultrasonography of left breast DEJAH Johns Work Phone: Start: 04-23-2022 X-ray of lumbar spine, four or more views [facility] Lisa Johns Work Phone: Start: 02-10-2022 MRI venography [facility] Lisa Johns Work Phone: Start: 01-10-2022 MRI of head [facility] Lisa Johns Work Phone: Start: 01-24-2017 VITAL SIGNS SHERI HOY Start: 01-24-2017 TELEMETRY MONITORING SHERI HOY Start: 01-24-2017 EKG 12-LEAD SHERI HOY Aerobic microbial culture DN P Lisa Johns Work Phone: Anaerobic microbial culture DEJAH Johns Work Phone: H/O: hysterectomy H/O: hysterectomy DEJAH Johns Work Phone: History of cholecystectomy Hx of cholecys tectomy DEJAH Johns Work Phone: Investigation of transfusion reaction DEJAH Johns Work Phone: Investigation of transfusion reaction DEJAH Johns Work Phone: Plan of Treatment Date Care Activity Detail Author Start: 07-29-2035 Shingles (RZV) Vaccine (1 of 2) Shingles (RZV) Vaccine (1 of 2) THE [employer] Start: 09-09-2024 End: 09-09-2024 Patient encounter procedure 09/09/2024 9:00 AM EDT Office Visit Rheumatology [address] [facility] [place] [address] Alem Cuadra MD [address] [place] [address] Reason for visit: Enlarged liver Rheumatology Comment on above: Reason for visit: Enlarged liver Start: 09-02-2024 End: 09-02-2024 Follow-up encounter 09/02/2024 8:45 AM EDT [facility] Neurology Headache [facility] [address] [place] [address] Janee Montero, REGISTRATION SPECIALIST.[employer] [address] [place] [address] Follow up Neurology Headache [facility] Comment on above: Follow up Start: 07-29-2024 End: 07-29-2024 Patient encounter procedure 07/29/2024 2:00 PM EDT Office Visit Pain Management [address] [facility] [place] [address] Cassandra Tinsley APRN.[employer]GE [employer] [address] [facility] [address] [place] [id number] 6 week follow up Pain Management Comment on above: 6 week follow up Start: 07-22-2024 End: 07-22-2024 ambulatory 07/22/2024 5:00 PM EDT [facility] Neurology Headache [facility] [address] [place] [address] [place] [address] [place] [address] Fol up on migraines Neurology [facility] Comment on above: Fol up on migraines Start: 07-15-2024 End: 07-15-2024 Patient encounter procedure 07/15/2024 2:00 PM EST Office Visit Pain Management [address] [place] [address] Cassandra Tinsley APRN.BARGE HAND [address] [place] [address] 6 week follow up Pain Management Comment on above: 6 week follow up Start: 07-01-2024 End: 07-01-2024 Patient encounter procedure Ophthalmology Comment on above: 6 months 30-2, DFE and RNFL/GCA Start: 06-14-2024 End: 06-14-2024 Patient encounter procedure 06/14/2024 8:00 AM EST Office Visit [facility] Ophthalmology [address] [address] Tamara Sherwood MD [address] [place] [address] IIH - Being referred by Dr. Goldberg Ophthalmology Comment on above: IIH - Being referred by Dr. Goldberg Start: 06-03-2024 End: 06-03-2024 Patient encounter procedure 06/03/2024 9:30 AM EST Office Visit Pain Management [address] [place] [address] Cassandra Tinsley APRN.BARGE HAND [address] [place] [address] neck pain Pain Management Comment on above: neck pain Start: 06-03-2024 End: 06-03-2024 ambulatory 06/03/2024 8:00 AM EST Distance [facility] Neurology [address] [place] [address] Alejandra Cabrera, DO [address] [place] [address] Migraines Neurology Comment on above: Migraines Start: 05-27-2024 End: 05-27-2024 Patient encounter procedure Neurology Pain Comment on above: Polyarthralgia [M25.50] Start: 05-20-2024 End: 05-20-2024 Patient encounter procedure 05/20/2024 9:00 AM EST Office Visit Pain Management [address] [place] [address] [place] [address] [id number] Back Pain Pain Management Comment on above: Back Pain Start: 04-22-2024 End: 04-22-2024 ambulatory 04/22/2024 11:00 AM EST [facility] Recovery [address] [place], [place] [id number] Inez Ness, PhD [address] [place], [place] [id number] Polyarthralgia [M25.50] Pain Recovery Comment on above: Polyarthralgia [M25.50] Start: 04-16-2024 End: 04-16-2024 Patient encounter procedure 04/16/2024 10:30 AM EST Office Visit Pain Management [address] [place] [address] [place] [address] [place] [address] [address] Back Pain Pain Management Comment on above: Back Pain Start: 04-05-2024 End: 04-05-2024 ambulatory 04/05/2024 7:00 AM EST Distance [facility] Neurology [address] [place] [address] Emilee Roca, REGISTRATION SPECIALIST.BARGE HAND [address] [address] II Neurology Comment on above: II Start: 03-28-2024 End: 03-28-2024 Patient encounter procedure 03/28/2024 8:30 AM EST Office Visit Pain Management [address] [place] [address] [place] [address] [address] Back Pain Pain Management Comment on above: Back Pain Start: 02-24-2024 End: 02-24-2024 Patient encounter procedure 02/24/2024 10:00 AM EDT Office Visit Neurology Pain [address] [place] [id number] [place] [address] [place] [address] Chronic pain syndrome [G89.4] Neurology Pain Comment on above: Chronic pain syndrome [G89.4] Start: 02-01-2024 End: 05-02-2024 Basic metabolic 2000 panel - Serum or Plasma BASIC METABOLIC PANEL Lab Routine [facility] (idiopathic intracranial hypertension) Expected: 02/01/2024, Expires: 05/02/2024 [facility] Work Phone: Comment on above: Expected: 02/01/2024, Expires: Start: 01-10-2024 Covid-19 Vaccine ( season) Covid-19 Vaccine () [facility] Start: 01-10-2024 Influenza vaccination [facility] Start: 01-01-2024 End: 01-01-2024 ambulatory 01/01/2024 8:00 AM EDT [facility] Neurology [address] [place] [address] Emilee Roca, REGISTRATION SPECIALIST.BARGE HAND [address] [place] [address] IIH Neurology Comment on above: IIH Start: 12-23-2023 Duplex scan veins of upper limb US venous duplex UE RT [facility] Start: 12-23-2023 US Upper extremity vein - right [facility] Start: 11-06-2023 End: 11-06-2023 Patient encounter procedure 11/06/2023 9:00 AM EDT Office Visit [facility] Ophthalmology [address] [place] [address] Tamanna Barry, OD [address] [place] [address] I think to check my optic nerves due to IIH Ophthalmology Comment on above: I think to check my optic nerves due to IIH Start: 10-12-2023 End: 10-12-2023 ambulatory 10/12/2023 2:30 PM EDT [facility] Rheumatology [address] [address] Alem Cuadra MD [address] [place] [address] Return in about 13 days (around 10/12/2023) for virtual. Rheumatology Comment on above: Return in about 13 days (around 10/12/2023 ) for virtual. Start: 10-12-2023 End: 01-11-2024 C reactive protein [Mass/volume] in Serum or Plasma C-REACTIVE PROTEIN Lab Routine Polyarthralgia Expected: 10/12/2023, Expires: 01/11/2024 [facility] Work Phone: Comment on above: Expected: 10/12/2023, Expires: Start: 10-12-2023 End: 01-11-2024 Erythrocyte sedimentation rate SEDIMENTATION RATE, WESTERGREN Lab Routine Polyarthralgia Expected: 10/12/2023, Expires: 01/11/2024 [facility] Comment on above: Expected: 10/12/2023, Expires: 4 Start: 10-09-2023 End: 10-09-2023 ambulatory 10/09/2023 8:00 AM EDT [facility] Neurology Headache [facility] [address] [place] [address] [place] [address] [place] [address] Idiopathic intercranial hypertension, need to restart medication Neurology Headache [facility] Comment on above: Idiopathic intercranial hypertension, ne ed to restart medication Start: 10-04-2023 Plain X-ray of right hip XR hip RT min 2V(w/wo pelvis)* [facility] Start: 10-04-2023 XR Hip - right 2 Views [facility] Start: 09-29-2023 End: 12-29-2023 MOOK BY IFA SCREEN [facility] Comment on above: Expected: 09/29/2023, Expires: 4 Start: 09-29-2023 End: 12-29-2023 Cyclic citrullinated peptide IgG Ab [Units/volume] in Serum or Plasma [facility] Work Phone: Comment on above: Expected: 09/29/2023, Expires: 4 Start: 09-29-2023 End: 12-29-2023 DNA double strand Ab [Units/volume] in Serum by Immunoassay [facility] Comment on above: Expected: 09/29/2023, Expires: 4 Start: 09-29-2023 End: 12-29-2023 Extractable nuclear Ab panel - Serum [facility] Comment on above: Expected: 09/29/2023, Expires: 4 Start: 09-29-2023 End: 12-29-[address] [facility] Comment on above: Expected: 09/29/2023, Expires: 4 Start: 09-29-2023 End: 12-29-2023 PROTEIN ELECTROPHORESIS SERUM W/INTERP [facility] Comment on above: Expected: 09/29/2023, Expires: 4 Start: 08-25-2023 Cerebrospinal fluid culture [facility] Start: 08-23-2023 Bacteria identified in Blood by Culture [facility] Start: 08-23-2023 Blood culture for bacteria, including anaerobic screen Blood Culture [facility] Start: 07-29-2023 End: 07-29-2023 [facility] Start: 06-09-2023 CT Abdomen and Pelvis WO contrast [facility] Start: 06-09-2023 CT of abdomen and pelvis without contrast CT abdomen pelvis wo con [facility] Start: 05-14-2023 Urine microalbumin profile DTaP,Tdap,Td Vaccine (2 - Td or Tdap) [facility] Start: 05-11-2023 Behavioral Health Screening Behavioral Health Screening [facility] Start: 01-09-2023 Covid-19 Vaccine (2022-) Covid-19 Vaccine () [facility] Start: 01-09-2023 Influenza vaccination Influenza Vaccine (#1) [facility] Start: 07-18-2022 End: 09-17-2022 Lipid 1996 panel - Serum or Plasma LIPID PANEL BASIC Lab Routine Atypical chest pain Expected: 07/18/2022, Expires: 09/17/2022 [facility] Work Phone: Comment on above: Expected: 07/18/2022, Expires: 3 Start: 05-11-2022 DEPRESSION ASSESSMENT DEPRESSION ASSESSMENT [facility] Start: 01-23-2022 Borrelia burgdorferi DNA assay [facility] Work Phone: Start: 01-23-2022 Cerebrospinal fluid culture [facility] Work Phone: Start: 01-09-2022 Influenza vaccination INFLUENZA (#1) [facility] Start: 07-29-2015 HPV TESTING HPV TESTING [facility] Start: 07-29-2015 Screening for malignant neoplasm of cervix HPV Testing [facility] Start: 2012 HPV Vaccine (optional start 27-45 years) HPV Vaccine (optional start 27-45 years) [facility] Start: 2006 PAP TESTING PAP TESTING [facility] Start: 2006 Screening for malignant neoplasm of cervix [facility] Start: 2004 Hepatitis A (HAV) Vaccine (optional start 19+ years) Hepatitis A (HAV) Vaccine (optional start 19+ years) [facility] Start: 2004 Hepatitis B Vaccine (1 of 3 - 19+ 3-dose series) Hepatitis B Vaccine (1 of 3 - 19+ 3-dose series) [facility] Start: 2004 Pneumococcal vaccination Pneumococcal Vaccine (1 of 2 - PCV) [facility] Start: 2004 Urine microalbumin profile DTAP,TDAP,TD (1 - Tdap) [facility] Start: 07-29-2003 Anxiety Screening Anxiety Screening [facility] Start: 07-29-2003 Depression Screening Depression Screening [facility] Start: 07-29-2003 HEPATITIS C SCREENING HEPATITIS C SCREENING [facility] Start: 07-29-2003 Hepatitis C screening [facility] Start: 07-29-2003 HIV SCREENING HIV SCREENING [facility] Start: 07-29-2003 HIV screening HIV Screening [facility] Start: 07-29-2003 Tetanus + diphtheria + acellular pertussis vaccine (product) Tdap Booster [facility] Start: 2000 HIV screening HIV Test [facility] Start: 07-29-1991 Pneumococcal vaccination Pneumococcal Vaccine (1 of 2 - PCV) [facility] Start: 01-28-1986 COVID-19 VACCINE (#1) COVID-19 VACCINE (#1) [facility] Start: 1985 HEPATITIS B (1 of 3 - 3-dose series) HEPATITIS B (1 of 3 - 3-dose series) [facility] Start: 1985 Hepatitis B vaccination Hepatitis B (HBV) Vaccine (1 of 3 - 3-dose series) [facility] Start: 1985 Screening for malignant neoplasm of breast Mammography shared decision making (35 through 39 years) [facility] Angiotensin converti ng enzyme [Enzymatic activity/volume] in Cerebral spinal fluid [facility] Work Phone: Bacteria identified in Unspecified specimen by Aerobe culture [facility] Work Phone: Bacteria identified in Unspecified specimen by Aerobe culture [facility] Bacteria identified in Unspecified specimen by Anaerobe culture [facility] Work Phone: Bacteria identified in Unspecified specimen by Anaerobe culture [facility] Bacteria identified in Urine by Culture [facility] Borrelia burgdorferi DNA assay [facility] Work Phone: End: 07-19-2023 ECG COMPLETE ECG COMPLETE ECG Routine Atypical chest pain 1 Occurrences starting 07/18/2022 until 07/19/2023 [facility] Work Phone: Comment on above: 1 Occurrences starting 07/18/2022 until 07/19/2023 ECG COMPLETE ECG COMPLETE ECG 07/18/2022 11:20 AM EST [facility] End: 07-19-2023 Echocardiography ECHO Cardiology Routine Atypical chest pain 1 Occurrences starting 07/18/2022 until 07/19/2023 [facility] Work Phone: Comment on above: 1 Occurrences starting 07/18/2022 until 07/19/2023 Microscopic observat ion [Identifier] in Unspecified specimen by Gram stain [facility] Work Phone: End: 07-03-2025 MR Brain WO contrast MRI BRAIN WO IVCON Radiology Routine IIH (idiopathic intracranial hypertension) 1 Occurrences starting 06/03/2024 until 07/03/2025 [facility] Work Phone: Comment on above: 1 Occurrences starting 06/03/2024 until 07/03/2025 End: 07-03-2025 MRA Head veins WO and W contrast IV MRV BRAIN WO/W IVCON Radiology Routine IIH (idiopathic intracranial hypertension) 1 Occurrences starting 06/03/2024 until 07/03/2025 [facility] Comment on above: 1 Occurrences starting 06/03/2024 until 07/03/2025 Patient Education [facility] Work Phone: Patient referral [facility] Work Phone: End: 06-19-2025 XR Lumbar spine AP and Lateral XR LUMBAR LIMITED 2V AP/LAT Radiology Routine Lumbosacral spondylosis without myelopathy Degeneration of intervertebral disc of lumbar region with discogenic back pain and lower extremity pain Chronic bilateral low back pain with bilateral sciatica 1 Occurrences starting 05/20/2024 until 06/19/2025 [facility] Work Phone: Comment on above: 1 Occurrences starting 05/20/2024 until 06/19/2025 [facility] Immunizations Immunization Date Immunization Notes Care Provider Marily perry NEGATED: Highlighted row has not occurred!02-13-2022 influenza, seasonal, injectable Patient Objection Lisa Johns Other [employer] Other Payers Date Payer Category Payer Medicaid [id number] 2022 Unknown [id number] 2014 Unknown [id number] 1985 Unknown [id number] 3 1985 Unknown [id number] 3 1985 Unknown [id number] [id number] 3 1985 Unknown [id number] [id number] 6 1985 Unknown [id number] [id number] 6 1985 Unknown [id number] [id number] 2 1985 Unknown [id number] [id number] 2 1985 Unknown [id number] [id number] 59 1985 Unknown [id number] [id number] 59 1985 Unknown [id number] [id number] 59 1985 Unknown [id number] [id number] 59 1985 Unknown [id number] [id number] 59 1959 [facility] [id number] 1959 Unknown [id number] Medicaid [id number] Self-pay Self Pay [id number] Unknown Regular Auto/Liability [id number] Social History Date Type Detail Facility Unknown if ever smoked [employer] Other Start: 07-18-2022 End: 09-29-2023 Sex Assigned At [facility] Start: 03-24-2021 End: 01-29-2024 Tobacco smoking status NHIS Ex-smoker (finding) [facility] Start: 1985 Sex Assigned At Female [facility] Tobacco smoking status IDIS Tobacco smoking consumption unknown [facility] Start: 06-09-2023 End: 08-25-2023 Tobacco smoking status IDIS Current some day smoker [facility] Start: 07-29-2023 End: 10-04-2023 Tobacco smoking status NHIS Smoker (finding) [facility] Start: 07-18-2022 End: 09-29-2023 History of Social function [facility] National Score (1-100), lower number is lower risk 81 [facility] Start: 07-03-2022 Gender identity Identifies as female gender (finding) [facility] Start: 09-29-2023 End: 02-24-2024 Tobacco smoking status NHIS Smokes tobacco daily [facility] History of tobacco use Cigarette Smoker [facility] Start: 09-29-2023 End: 06-03-2024 Alcohol intake Ex-drinker (finding) [facility] Start: 09-29-2023 Tobacco Comment 1 pack every 2 days [facility] Start: 10-08-2023 End: 02-24-2024 Tobacco use and exposure Smokeless tobacco non-user [facility] Start: 02-08-2024 End: 02-08-2024 Tobacco smoking status NHIS Never smoked tobacco (finding) [facility] Start: 03-19-2024 End: 05-24-2024 Sex Female (finding) [facility] Start: 1985 Sex Assigned At Not on file [facility] [employer] [facility] Work Phone: NEGATED: Highlighted row [facility] Goals Date Patient Goal Desired Activity /State Clinical Notes 08-21-2021 to 06-06-2024 Telephone Encounter - Cassandra Tinsley APRN.CNP - 06/06/2024 4:37 PM ESTTelephone Encounter - Cassandra Tinsley APRN.CNP - 06/06/2024 4:37 PM Alejandra Chavira DO - 06/03/2024 8:00 AM EST Note Date & Type Note Facility 06-06-2024 Telephone encounter Note Once patient finishes her health care assistant to fulfill her insurance requirements we will order MRI of cervical and lumbar spine Cassandra Tinsley APRN.CNP [facility] Work Phone: 06-06-2024 Miscellaneous Notes Once patient finishes her health care assistant to fulfill her insurance requirements we will order MRI of cervical and lumbar spine Cassandra Tinsley APRN.CNP Pt calling regarding the questions she sent via My Chart. Pt inquiring what the next steps are moving forward. Pt requesting a call from Cassandra Tinsley's office. Patient may be reached at [phone] for any questions/ recommendations. documented in this encounter [facility] 06-06-2024 Telephone encounter Note Pt calling regarding the questions she sent via My Chart. Pt inquiring what the next steps are moving forward. Pt requesting a call from Cassandra Tinsley's office. Patient may be reached at [phone] for any questions/ recommendations. [facility] 06-06-2024 Telephone encounter Note Called spoke with patient, further questions answered. Copy of xray report faxed to PCP's office. [facility] 06-06-2024 Miscellaneous Notes Called spoke with patient, further questions answered. Copy of xray report faxed to PCP's office. Pt identified by name and Pt given message below Stated understanding Pts pcp is Dr Sheri Ivey [phone] Pt does not have a fax# Please call Dr Ivey for fax# Pt would like to discuss results today Pt is available this week at 330 pm Please call pt then Message left for patient to return call regarding provider's message below. Can we call patient Her xray of cervical spine was revealing for: Mild to moderate left C3-C4 bony foraminal narrowing. Xray of lumbar spine was revealing for: Lumbar spine degenerative changes and levoscoliosis. Prominent hepatic shadow, and ultrasound liver may be considered for further evaluation as clinically warranted. Xray shows incidental finding of hepatic shadow can we fax over to her PCP for evaluation Cassandra Tinsley APRN.BARGE HAND documented in this encounter [facility] 06-06-2024 Telephone encounter Note Pt identified by name and Pt given message below Stated understanding Pts pcp is Dr Sheri Ivey [phone] Pt does not have a fax# Please call Dr Ivey for fax# Pt would like to discuss results today Pt is available this week at 330 pm Please call pt then [facility] 06-06-2024 Telephone encounter Note Message left for patient to return call regarding provider's message below. [facility] 06-06-2024 Telephone encounter Note Images from the original note were not included. Pt mychart messaged me results of eye exam with RNFLwith Dr. Pablo Phipps from 06/03 Dilated Eye exam completed --> No evidence of disc edema b/l and RNFL appears stable Will continue plan of 500 mg BID diamox, she will try parafon forte cycle breaker for on going head/neck pain and will get updated MRI/MRV imaging. [facility] 06-06-2024 Miscellaneous Notes Images from the original note were not included. Pt mychart messaged me results of eye exam with RNFLwith Dr. Pablo Phipps from 06/03 Dilated Eye exam completed --> No evidence of disc edema b/l and RNFL appears stable Will continue plan of 500 mg BID diamox, she will try parafon forte cycle breaker for on going head/neck pain and will get updated MRI/MRV imaging. documented in this encounter [facility] 06-03-2024 Telephone encounter Note Can we call patient Her xray of cervical spine was revealing for: Mild to moderate left C3-C4 bony foraminal narrowing. Xray of lumbar spine was revealing for: Lumbar spine degenerative changes and levoscoliosis. Prominent hepatic shadow, and ultrasound liver may be considered for further evaluation as clinically warranted. Xray shows incidental finding of hepatic shadow can we fax over to her PCP for evaluation Cassandra Tinsley APRN.BARGE HAND [facility] Work Phone: 06-03-2024 Note HNO ID: [id number] Author: VIANNEY SHETH RT(R) Service: ? Author Type: Technologist Type: Progress Notes Filed: 06/03/2024 11:02 Note Text: Radiology Service Progress Note PATIENT NAME: Karolina Nicole DATE OF SERVICE: June 03, 2024 TIME: 11:02 AM PATIENT IDENTITY VERIFICATION COMPLETED USING TWO (2) IDENTIFIERS: Name and Date of confirmed by patient verbally. FALL SCREENING: Has the patient had 2 falls in the last year or 1 fall with injury or currently using an Ambulatory Assistive Device (Walker, Cane, Wheelchair, Crutches, etc.)? No PATIENT GENDER DATA: Assigned female at . status: : No status: NO. PATIENT RELEVANT IMPLANT DATA REVIEWED: Not Applicable PATIENT PRESENTS WITH AN IMPLANTABLE OR ATTACHED REGRINDER OPERATOR: No RADIOLOGY DEPARTMENT: General X-ray: Exam(s) Completed: Spine X-Ray(s): Cervical AP / LAT / OBL and Lumbar AP / LAT / L5-S1 PERIPHERAL IV DATA: Not applicable SIGNED BY: RT Rayshawn(R) June 03, 2024 11:02 AM [facility] 06-03-2024 History of Presen t illness Narrative Ms. Nicole a 38 year old female returns today for follow up of cervical pain, she states that symptoms are slightly worse. PAIN: Pain Yes. Location: neck, rates pain a 4 on a pain scale of 1-10. Patient describes pain as tight and dull, duration to the present time occuring daily x 5. MEDICATIONS: Medications reviewed and verified. Current Outpatient Medications Medication Sig chlorzoxazone (PARAFON FORTE DSC) 500 mg tablet Take 1 tablet by mouth three times a day for 5 days. Do not take with Zanaflex dextroamphetamine-amphetamine (ADDERALL) 20 mg tablet Take 20 mg by mouth once daily. naproxen (NAPROSYN) 500 mg tablet Take 1 tablet by mouth two times a day as needed for pain. FOR PAIN. TAKE WITH FOOD. tiZANidine (ZANAFLEX) 4 mg tablet Take 1 tablet by mouth at bedtime as needed (muscle spasm). acetaZOLAMIDE (DIAMOX) 250 mg tablet 500 mg AM; 250 mg PM Zinc Acetate, Oral, 50 mg (zinc) cap Take 50 capsules by mouth once daily. Cetirizine 10 mg cap mv,calcium,min/iron/folic/vitK (MULTI FOR HER ORAL) PREMARIN 0.45 mg tablet montelukast (SINGULAIR) 10 mg tablet Montelukast Active 10 MG PO Daily March 24, 2021 12:00am No current facility-administered medications for this visit. Patient feels that medications have helped a little PREVIOUS TREATMENTS LASTING SIX WEEKS IN THE LAST SIX MONTHS Active conservative therapy lasting 6 weeks in the last six months (see below) 1. Physical therapy: Yes [facility] x 4 sessions ongoing 2. Home exercise program after PT: No 3. Occupational therapy: No 4. A physician supervised home exercise program (HEP): No 5. Aquaculture [employer] Fisheries Professor: No Passive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 05-30-2024 Miscellaneous Notes Patient last seen on 04/05/24. documented in this encounter [facility] 05-30-2024 Note Patient Outreach ([facility]) KAROLINA NIOCLE ([id number]) 1985 F Date Time Provider Department 05/30/24 NO PCP [facility] During your visit today, we recorded the following information about you: Maria Esther Odonnell 05/30/2024 1:22 PM Signed POPULATION HEALTH NAVIGATION OUTREACH Action/FYI RP Patient Outreach - Left voicemail for patient to call back to schedule Provider ordered Follow up in Neurology. (Please see Epic order dated for (02/24/2024). Any agent can assist with scheduling. Reason for Outreach Care Gap/HCC or Scheduling Wellness Visits Care Gaps due: Follow-up Appointment Patient Contacted: Unable or unnecessary to reach patient: Left message Navigation Signature: Maria Esther Agosto Nafisa Pss May 30, 2024 1:21 PM Allergies As of Date: 05/30/2024 Noted Allergy Reaction ADHESIVE 03/11/2012 2 - Rash LATEX 08/30/2016 2 - Rash LEVAQUIN (LEVOFLOXACIN) 04/05/2024 7 - Swelling Comments: Swelling tongue NICKEL 08/30/2016 2 - Rash 16 - Unknown OXYCODONE 10/15/2020 2 - Rash OXYCODONE-ACETAMINOPHEN 03/11/2012 2 - Rash SILK 08/30/2016 14 - Other: See Comments Comments: Silk tape SULFADIAZINE 09/29/2023 2 - Rash SULFAMETHOXAZOLE-TRIMETHOPRIM 12/25/2023 7 - Swelling ADHESIVE TAPE (ROSINS) 05/11/2019 4 - Hives 9 - Itching Date Reviewed: 05/20/2024 Reviewed by: Osiel Cartagena DO - Fully Assessed Prescriptions as of 05/30/2024 - dextroamphetamine-amphetamine (ADDERALL) 20 mg tablet Take 20 mg by mouth once daily. - naproxen (NAPROSYN) 500 mg tablet Take 1 tablet by mouth two times a day as needed for pain. FOR PAIN. TAKE WITH FOOD. - tiZANidine (ZANAFLEX) 4 mg tablet Take 1 tablet by mouth at bedtime as needed (muscle spasm). - acetaZOLAMIDE (DIAMOX) 250 mg tablet 500 mg AM; 250 mg PM - Zinc Acetate, Oral, 50 mg (zinc) cap Take 50 capsules by mouth once daily. - Cetirizine 10 mg cap - mv,calcium,min/iron/folic/vitK (MULTI FOR HER ORAL) - PREMARIN 0.45 mg tablet - montelukast (SINGULAIR) 10 mg tablet Montelukast Active 10 MG PO Daily March 24, 2021 12:00am Problem List As Of Date: 05/30/2024 (None) Encounter Status:Closed by NAFISA KEITH, MARIA ESTHER AGOSTO on 05/30/24 [facility] 05-20-2024 Instructions Osiel Cartagena DO - 05/20/2024 10:13 AM EST PLAN: 1) Start Tizanidine 4 mg at bed time as needed, Start Naprosyn 500 mg twice daily as needed for pain. 2) Continue Chiropractor/ Physical therapy. 3) X-ray Lumbar spine, consider MRI Lumbar spine. 4) Consider right lumbar diagnostic facet MBNB and potentially RFA, consider Lumbar SAMMIE. 5) RTC in 6 weeks for F/U. documented in this encounter [facility] 05-20-2024 History of Presen t illness Narrative [facility] Initial Evaluation May 20, 2024 This appointment was requested by Josefa Lopez DO for my medical opinion regarding the evaluation and management of the patient's Karolina Nicole problems, and my final recommendations will be communicated to the requesting health care provider by way of the shared medical record for internal providers or letter via the [employer] for external providers. Patient Entered Questionnaires PROMIS Score Percentiles 09/27/2023 01/01/2024 PROMIS Global Health Scale Physical Health Percentile 10 66 Mental Health Percentile 34 53 09/27/2023 02/22/2024 Physical Health Physical Function Percentile 16* 14 Pain Interference Percentile 21* 8 Percentiles provide an indication of how the patient's score ranks in relation to the general population. Higher percentile rankings indicate better function/quality of life. 50th percentile is the average of the general population and indicates half of respondents had a worse score. > 31st percentile is within normal limits or better * < 31st percentile is at least SD worse than population, which may be clinically relevant < 16th percentile is at least 1 SD worse than population and warrants attention SUBJECTIVE: Karolina Nicole a 38 year old presents to [facility] Department, accompanied by self only, was referred by Josefa Lopez DO, for an initial evaluation for low back pain Work related injury: not work related The pain is located low back pain posterior side then will radiate into her lateral legs to bilateral hip to anterior thighs Pain started: several years ago Patient describes pain as: constant numbness , pressure , sharp shooting and she stets her legs feel heavy Intensity of pain: 8 on a scale of 0-10. Pain Score Range 5/10 to 10/10 Pain is aggravated by: standing, sitting, and arising from a sitting position Pain is alleviated by: Ibuprofen Pain interferes with: physical activity, work, household cleaning, and social activities. 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 Physical therapy: Yes [facility] x 2 sessions ongoing 2. Home exercise program after PT: Yes 3. Occupational therapy: No 4. A physician supervised home exercise program (HEP): No 5. Aquaculture And Fisheries Professor: No Passive conservative therapy lasting 6 weeks in the last six months (see below) 1. Medical devises: No 2. Acupuncture: No 3. Tens unit: No 4. Prescription pain medication: 5. NSAIDS: No Alcohol Abuse - No Drug Abuse - No Current Anticoagulant Therapy: No Sleep Disturbance: No PAST MEDICAL HISTORY Diagnosis Date IIH (idiopathic intracranial hypertension) PAST SURGICAL HISTORY Procedure Laterality Date LAPAROSCOPIC CHOLECYSTECTOMY 07/29/2023 LAPAROSCOPY-ROBERTO 10/19/2012 LIGATE FALLOPIAN TUBE Bilateral 12/15/2011 REMOVAL OF OVARY/TUBE(S) Bilateral 10/19/2012 TOTAL ABDOM HYSTERECTOMY 10/19/2012 Social History Tobacco Use Smoking status: Every Day Current packs/day: 0.50 Types: Cigarettes Smokeless tobacco: Never Tobacco comments: 1 pack every 2 days Vaping Use Vaping status: Never Used Substance Use Topics Alcohol use: Not Currently Drug use: Not Currently FAMILY HISTORY Problem Relation Age of Onset Cancer Mother Cataract Mother Hypertension Sister Cataract Sister Blindness Sister Heart Maternal Grandmother ALLERGIES Allergen Reactions Adhesive Rash Latex Rash Levaquin [Levofloxa* Swelling Swelling tongue Nickel Rash, Unknown Oxycodone Rash Oxycodone-Acetamino* Rash Silk Other: See Comments Silk tape Sulfadiazine Rash Sulfamethoxazole-Tr* Swelling Adhesive Tape (Cammie* Hives, Itching Current Outpatient Medications Medication Sig acetaZOLAMIDE (DIAMOX) 250 mg tablet 500 mg AM; 250 mg PM Zinc Acetate, Oral, 50 mg (zinc) cap Take 50 capsules by mouth once daily. Cetirizine 10 mg cap mv,calcium,min/iron/folic/vitK (MULTI FOR HER ORAL) PREMARIN 0.45 mg tablet montelukast (SINGULAIR) 10 mg tablet Montelukast Active 10 MG PO Daily March 24, 2021 12:00am No current facility-administered medications for this visit. Review of Symptoms: GENERAL:No weight loss, malaise or fevers., SEE HPI GASTROINTESTINAL: Negative for abdominal discomfort, blood in stools or black stools or change in bowel habits GENITOURINARY: No history of dysuria, frequency or incontinence MUSCULOSKELETAL: See HPI NEUROLOGIC:Negative for focal numbness or weakness, headaches and dizziness or syncope. Neva Rodriguez MA May 20, 2024 The subjective information, including chief complaint, past medical history and review of systems, was explored in detail with the patient and edited as needed and is complete. Osiel Cartagena DO May 20, 2024 Physical Examination: Pulse 78 Ht 5' 2.5 (1.59m) Wt 164 lb 14.5 oz (74.8kg) SpO2 97% BMI 29.66 kg/(m^2). General:well appearing, alert, and in no acute distress Skin: skin color, texture, turgor normal, no rashes or lesions HEENT: normocephalic, atraumatic, sclera non-icteric Cardiovascular: Radial pulses intact and equal Lungs: Respirations even and non-labored. Musculoskeletal: Neck: Supple; good ROM. Back: Tenderness over right lumbar facets with positive right lumbar facet loading test, mild tenderness over right SIJ but negative Hope's test, Full ROM without reproducible pain. Straight leg raising test negative bilaterally. Neurological: Mental Status: alert and oriented x 3 Cranial Nerves: Not examined Reflexes: Deep tendon reflexes are 2+ all throughout. Motor Strength: Motor strength and tone are 5/5 all throughout. Sensory: Sensation was intact to light touch all throughout. Gait: Normal. The patient can walk on her heels. The patient can walk on her toes. XRAY Sacroiliac Joint Pelvis 09/29/2023 Bones: Normal bone density. No acute fracture. Joint spaces: Sacroiliac joint space widths maintained. No erosions. Lower lumbar degenerative disc disease at L5-S1 with facet arthrosis on the right. Soft tissues: No soft tissue abnormality. Surgical clip overlying the right ilium. OARRS website checked and validated. All prescriptions have been APPROPRIATELY filled. No suspicious activity was identified. - May 20, 2024 by Osiel Cartagena DO HPI & ASSESSMENT: Neva Rodriguez MA was present during the interview and physical exam. Karolina Nicole is a 38 year old female with chronic LBP that radiates down her bilateral LE along lateral sides to anterior thighs. Her pain started several years ago, described as constant numbness , pressure , sharp shooting and she states her legs feel heavy. The pain is rated at an 8/10 today and ranges between 5-10/10 on her best and worst day respectively. The pain is worse with standing, sitting, and arising from a sitting position and is better with ibuprofen. She started doing chiropractor/PT, had 2 sessions and ongoing. She had seen Dr. Josefa Falk and she recommended CPRP and potentially Ketamine infusion after cleared from neurology. She was a patient of Dr. Paez and had caudal SAMMIE 07/07/2018, reported 70% relief 3 months Patient denied any of the following worrisome symptoms that can be associated with low back/neck pain, such as recent unexplained fever, unintentional weight loss, recent new onset bowel or bladder dysfunction, saddle anesthesia or recent immunodepressive disorder diagnosis. Physical Exam supports right lumbar facetogenic pain 09/29/2023 X-ray sacrum revealed Lower lumbar degenerative disc disease at L5-S1 with facet arthrosis on the right. (M47.817) Lumbosacral spondylosis without myelopathy (primary encounter diagnosis) (M25.50) Polyarthralgia (G89.4) Chronic pain syndrome (M51.362) Degeneration of intervertebral disc of lumbar region with discogenic back pain and lower extremity pain (M54.42, M54.41, G89.29) Chronic bilateral low back pain with bilateral sciatica PLAN: 1) Start Tizanidine 4 mg at bed time as needed, Start Naprosyn 500 mg twice daily as needed for pain. 2) Continue Chiropractor/ Physical therapy. 3) X-ray Lumbar spine, consider MRI Lumbar spine. 4) Consider right lumbar diagnostic facet MBNB and potentially RFA, consider Lumbar SAMMIE. 5) RTC in 6 weeks for F/U. The above plan and management options were discussed at length with patient. Patient is in agreement with the above and verbalized understanding. Thank you Josefa Lopez DO for allowing me to participate in Karolina Nicole's care. I spent a total of 45 minutes on the date of the service which included preparing to see the patient, [id number] patient care, completing clinical documentation, performing a medically appropriate examination, counseling and educating the patient/family/caregiver, ordering medications, tests, or procedures, and communicating with other HCPs (not separately reported). Osiel Cartagena DO May 20, 2024 documented in this encounter [facility] 05-20-2024 Note HNO ID: [id number] Author: OSIEL CARTAGENA DO Service: ? Author Type: Physician Type: Progress Notes Filed: 05/20/2024 10:17 Note Text: [facility] Initial Evaluation May 20, 2024 This appointment was requested by Josefa Lopez DO for my medical opinion regarding the evaluation and management of the patient's Karolina Nicole problems, and my final recommendations will be communicated to the requesting health care provider by way of the shared medical record for internal providers or letter via the [employer] for external providers. Patient Entered Questionnaires PROMIS Score Percentiles 09/27/2023 01/01/2024 PROMIS Global Health Scale Physical Health Percentile 10 66 Mental Health Percentile 34 53 09/27/2023 02/22/2024 Physical Health Physical Function Percentile 16* 14 Pain Interference Percentile 21* 8 Percentiles provide an indication of how the patient's score ranks in relation to the general population. Higher percentile rankings indicate better function/quality of life. 50th percentile is the average of the general population and indicates half of respondents had a worse score. > 31st percentile is within normal limits or better * < 31st percentile is at least ? SD worse than population, which may be clinically relevant < 16th percentile is at least 1 SD worse than population and warrants attention SUBJECTIVE: Karolina Nicole a 38 year old presents to [facility] Department, accompanied by self only, was referred by Josefa Lopez DO, for an initial evaluation for low back pain Work related injury: not work related The pain is located low back pain posterior side then will radiate into her lateral legs to bilateral hip to anterior thighs Pain started: several years ago Patient describes pain as: constant numbness , pressure , sharp shooting and she stets her legs feel heavy Intensity of pain: 8 on a scale of 0-10. Pain Score Range 5/10 to 10/10 Pain is aggravated by: standing, sitting, and arising from a sitting position Pain is alleviated by: Ibuprofen Pain interferes with: physical activity, work, household cleaning, and social activities. 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 Physical therapy: Yes [facility] x 2 sessions ongoing 2. Home exercise program after PT: Yes 3. Occupational therapy: No 4. A physician supervised home exercise program (HEP): No 5. Aquaculture And Fisheries Professor: No Passive conservative therapy lasting 6 weeks in the last six months (see below) 1. Medical devises: No 2. Acupuncture: No 3. Tens unit: No 4. Prescription pain medication: 5. NSAIDS: No Alcohol Abuse - No Drug Abuse - No Current Anticoagulant Therapy: No Sleep Disturbance: No PAST MEDICAL HISTORY Diagnosis Date IIH (idiopathic intracranial hypertension) PAST SURGICAL HISTORY Procedure Laterality Date LAPAROSCOPIC CHOLECYSTECTOMY 07/29/2023 LAPAROSCOPY-ROBERTO 10/19/2012 LIGATE FALLOPIAN TUBE Bilateral 12/15/2011 REMOVAL OF OVARY/TUBE(S) Bilateral 10/19/2012 TOTAL ABDOM HYSTERECTOMY 10/19/2012 Social History Tobacco Use Smoking status: Every Day Current packs/day: 0.50 Types: Cigarettes Smokeless tobacco: Never Tobacco comments: 1 pack every 2 days Vaping Use Vaping status: Never Used Substance Use Topics Alcohol use: Not Currently Drug use: Not Currently FAMILY HISTORY Problem Relation Age of Onset Cancer Mother Cataract Mother Hypertension Sister Cataract Sister Blindness Sister Heart Maternal Grandmother ALLERGIES Allergen Reactions Adhesive Rash Latex Rash Levaquin [Levofloxa* Swelling Swelling tongue Nickel Rash, Unknown Oxycodone Rash Oxycodone-Acetamino* Rash Silk Other: See Comments Silk tape Sulfadiazine Rash Sulfamethoxazole-Tr* Swelling Adhesive Tape (Cammie* Hives, Itching Current Outpatient Medications Medication Sig acetaZOLAMIDE (DIAMOX) 250 mg tablet 500 mg AM; 250 mg PM Zinc Acetate, Oral, 50 mg (zinc) cap Take 50 capsules by mouth once daily. Cetirizine 10 mg cap mv,calcium,min/iron/folic/vitK (MULTI FOR HER ORAL) PREMARIN 0.45 mg tablet montelukast (SINGULAIR) 10 mg tablet Montelukast Active 10 MG PO Daily March 24, 2021 12:00am No current facility-administered medications for this visit. Review of Symptoms: GENERAL:No weight loss, malaise or fevers., SEE HPI GASTROINTESTINAL: Negative for abdomina (more content not included)... [facility] 04-22-2024 Note HNO ID: [id number] Author: INEZ NESS, PhD Service: ? Author Type: Psychologist Type: Progress Notes Filed: 04/25/2024 08:23 Note Text: THE [facility] Psychological Evaluation April 22, 2024 Karolina Nicole [facility]#: [id number] Chart was prepped for scheduled pain psychology evaluation. Patient cancelled the appointment. Inez Ness, PhD Psychologist, [facility] 04-05-2024 History of Presen t illness Narrative Images from the original note were not included. [facility] - Follow up Virtual Visit Last OV:01/01/24 Accompanied by: Self This visit was conducted as a virtual visit, with patient's permission, via ZOOM. It required patient-provider interaction for the medical decision making as documented below. Patient stated name and Patient location [place], [place] I have communicated my name and active licensure. The patient's identity and physical location were verified at the time of this visit. Either the patient or their legal claim service representative has been informed of the risks and benefits of -- and alternatives to -- treatment through a remote evaluation and consents to proceed with the evaluation remotely. Primary Problem List: There is no problem list on file for this patient. 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 PLAN: Increase Diamox 500 mg PM & 250 mg am Labs : 1 month Seen [facility] optometry, not neuro ophthalmology Will forward chart to Dr Tamara Sherwood, see if she needs to see neuro ophthalmology Headache 1 Location: frontal and temporal Quality/Description: squeezing Associated Symptoms: Photophobia: yes Phonophobia: no Nausea: no Vomiting: no Worse with activity: yes Number of migraine headache days/month: 15 Migraine headache severity: 5/10 Triggers: stress and weather changes Onset of headache to peak: varies Positional changes: no Most common time of day for headache to begin: evening Allodynia: no Headache status since the last visit: better Lifestyle: Sleep: 7-8 hours Issues and questions to be addressed: Medications Current Outpatient Medications Medication Sig acetaZOLAMIDE (DIAMOX) 250 mg tablet 500 mg AM; 250 mg PM Zinc Acetate, Oral, 50 mg (zinc) cap Take 50 capsules by mouth once daily. Cetirizine 10 mg cap mv,calcium,min/iron/folic/vitK (MULTI FOR HER ORAL) PREMARIN 0.45 mg tablet montelukast (SINGULAIR) 10 mg tablet Montelukast Active 10 MG PO Daily March 24, 2021 12:00am No current facility-administered medications for this visit. ALLERGIES Allergen Reactions Adhesive Rash Latex Rash Levaquin [Levofloxa* Swelling Swelling tongue Nickel Rash, Unknown Oxycodone Rash Oxycodone-Acetamino* Rash Silk Other: See Comments Silk tape Sulfadiazine Rash Sulfamethoxazole-Tr* Swelling Adhesive Tape (Cammie* Hives, Itching HEADACHE SCORES: 10/02/2023 01/01/2024 04/05/2024 Headache Questions ID Migraine Screener: 0 (Negative) ER visits in the last year: 0 Hospital stays in the last year: 0 Limited ADLs in the last month: 0 Days missed from work or school in the last month: 0 Days headache pain free in the last month: 0 Days per month with ALL of the following symptoms - decreased productivity, light sensitivity and nausea: 0 Patient impression of improvement since last visit: Minimally improved No change 10/02/2023 01/01/2024 04/05/2024 HIT-6 HIT-6 59 (Substantial impact) 48 (Little or no impact) 61 (Severe impact) 01/01/2024 02/22/2024 04/05/2024 CONCHA - 2/7 SCORES CONCHA-2 Score 0 4 0 CONCHA-7 Score 11 01/01/2024 04/05/2024 Migraine Specific QOL - Higher scores indicate better HRQL Role Function-Restrictive Transformed Score (range: 0-100) 100 60 Role Function-Preventive Transformed Score (range: 0-100) 100 80 Emotional Function Transformed Score (range: 0-100) 100 86.67 04/05/2024 02/22/2024 01/01/2024 PHQ-9 Score 6 8 0 I have reviewed the Tulio Status Assessment responses and discussed these with the patient: yes Emilee Roca, [email or web address] HAND Studies to Review: Latest Ref Rng 09/29/2023 WBC 3.70 - 11.00 k/uL 7.43 RBC 3.90 - 5.20 m/uL 4.29 Hemoglobin 11.5 - 15.5 g/dL 13.4 Hematocrit 36.0 - 46.0 % 38.4 MCV 80.0 - 100.0 fL 89.5 MCH 26.0 - 34.0 pg 31.2 MCHC 30.5 - 36.0 g/dL 34.9 RDW-CV 11.5 - 15.0 % 12.5 Platelet Count 150 - 400 k/uL 316 MPV 9.0 - 12.7 fL 9.9 Neut% % 50.4 Abs Neut (ANC) 1.45 - 7.50 k/uL 3.74 Lymph% % 41.5 Abs Lymph 1.00 - 4.00 k/uL 3.08 Vance% % 5.2 Abs Vance <0.87 k/uL 0.39 Eosin% % 2.4 Abs Eosin <0.46 k/uL 0.18 Baso% % 0.4 Abs Baso <0.11 k/uL 0.03 Immature Gran % % 0.1 IMMATURE GRANS (ABS) <0.10 k/uL <0.03 NRBC /100 WBC 0.0 Absolute nRBC <0.01 k/uL <0.01 DTYPE Auto Protein, Total 6.3 - 8.0 g/dL 6.5 Albumin 3.9 - 4.9 g/dL 4.4 Calcium 8.5 - 10.2 mg/dL 9.6 Bilirubin, Total 0.2 - 1.3 mg/dL 0.4 Alkaline Phosphatase 34 - 123 U/L 65 AST 13 - 35 U/L 31 ALT 7 - 38 U/L 22 Glucose 74 - 99 mg/dL 94 BUN 7 - 21 mg/dL 12 Creatinine 0.58 - 0.96 mg/dL 0.91 Sodium 136 - 144 mmol/L 140 Potassium 3.7 - 5.1 mmol/L 4.0 Chloride 97 - 105 mmol/L 104 CO2 22 - 30 mmol/L 24 Anion Gap 9 - 18 mmol/L 12 eGFR >=60 mL/min/1.73m 83 CRP <0.9 mg/dL <0.3 WSR 0 - 20 mm/hr 9 New Health Issues: No New Social History: No New Family History: No REVIEW OF SYSTEMS: Review of system : unchanged from the previous visit (sleep patterns, mood, energy, appetite, stress, exercising). PHYSICAL EXAMINATION: General: Alert and oriented. Answered questions in an appropriate manner. Made eye contact without apparent pain behavior. HEENT: Head is normocephalic and features were symmetric. Cranial Nerves: II: Pupils: symmetric, Ill,lV,Vl: nl eye movements VII: Face symmetric. Motor: Bulk: Normal for age and gender. No abnormal movements were appreciated. 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 Keep track of all medications: This includes the reason for use, side effects and benefits.) Headache education was done. Discussed lifestyle modification including increased oral hydration, decreased caffeine, exercise and stress management. Discussed treatment options including preventive and acute medications, natural supplements, and infusion therapy. Discussed medication overuse headache and to limit use of acute treatments to no more than 2 days/week or 10 days/month. Discussed medication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 once daily. acetaZOLAMIDE (DIAMOX) 250 mg tablet Take 1 tablet by mouth two times a day. Cetirizine 10 mg cap mv,calcium,min/iron/folic/vitK (MULTI FOR HER ORAL) PREMARIN 0.45 mg tablet montelukast (SINGULAIR) 10 mg tablet Montelukast Active 10 MG PO Daily March 24, 2021 12:00am No current facility-administered medications for this visit. ALLERGIES Allergen Reactions Adhesive Rash Latex Rash Nickel Rash, Unknown Oxycodone Rash Oxycodone-Acetamino* Unknown Silk Other: See Comments Silk tape Sulfadiazine Rash Sulfamethoxazole-Tr* Unknown Acetaminophen Hives, Itching Adhesive Tape (Cammie* Hives, Itching HEADACHE SCORES: 10/02/2023 01/01/2024 Headache Questions ID Migraine Screener: 0 (Negative) ER visits in the last year: 0 Hospital stays in the last year: 0 Limited ADLs in the last month: 0 Days missed from work or school in the last month: 0 Days headache pain free in the last month: 0 Days per month with ALL of the following symptoms - decreased productivity, light sensitivity and nausea: 0 Patient impression of improvement since last visit: Minimally improved 10/02/2023 01/01/2024 HIT-6 HIT-6 59 (Substantial impact) 48 (Little or no impact) 10/02/2023 01/01/2024 CONCHA - 2/7 SCORES CONCHA-2 Score 1 0 01/01/2024 Migraine Specific QOL - Higher scores indicate better HRQL Role Function-Restrictive Transformed Score (range: 0-100) 100 Role Function-Preventive Transformed Score (range: 0-100) 100 Emotional Function Transformed Score (range: 0-100) 100 01/01/2024 10/02/2023 PHQ-9 Score 0 8 HEADACHE SCORES: 10/02/2023 01/01/2024 Headache Questions ID Migraine Screener: 0 (Negative) ER visits in the last year: 0 Hospital stays in the last year: 0 Limited ADLs in the last month: 0 Days missed from work or school in the last month: 0 Days headache pain free in the last month: 0 Days per month with ALL of the following symptoms - decreased productivity, light sensitivity and nausea: 0 Patient impression of improvement since last visit: Minimally improved 10/02/2023 01/01/2024 HIT-6 HIT-6 59 (Substantial impact) 48 (Little or no impact) 10/02/2023 01/01/2024 CONCHA - 2/7 SCORES CONCHA-2 Score 1 0 01/01/2024 Migraine Specific QOL - Higher scores indicate better HRQL Role Function-Restrictive Transformed Score (range: 0-100) 100 Role Function-Preventive Transformed Score (range: 0-100) 100 Emotional Function Transformed Score (range: 0-100) 100 01/01/2024 10/02/2023 PHQ-9 Score 0 8 I have reviewed the Tulio Status Assessment responses and discussed these with the patient: yes Studies to Review: Latest Ref Rng 09/29/2023 WBC 3.70 - 11.00 k/uL 7.43 RBC 3.90 - 5.20 m/uL 4.29 Hemoglobin 11.5 - 15.5 g/dL 13.4 Hematocrit 36.0 - 46.0 % 38.4 MCV 80.0 - 100.0 fL 89.5 MCH 26.0 - 34.0 pg 31.2 MCHC 30.5 - 36.0 g/dL 34.9 RDW-CV 11.5 - 15.0 % 12.5 Platelet Count 150 - 400 k/uL 316 MPV 9.0 - 12.7 fL 9.9 Neut% % 50.4 Abs Neut (ANC) 1.45 - 7.50 k/uL 3.74 Lymph% % 41.5 Abs Lymph 1.00 - 4.00 k/uL 3.08 Vance% % 5.2 Abs Vance <0.87 k/uL 0.39 Eosin% % 2.4 Abs Eosin <0.46 k/uL 0.18 Baso% % 0.4 Abs Baso <0.11 k/uL 0.03 Immature Gran % % 0.1 IMMATURE GRANS (ABS) <0.10 k/uL <0.03 NRBC /100 WBC 0.0 Absolute nRBC <0.01 k/uL <0.01 DTYPE Auto Color Yellow Yellow Clarity Clear Clear Glucose, Urine Negative Negative Bilirubin, Urine Negative Negative Ketones, Urine Negative Negative Specific [place], Ur 1.005 - 1.030 1.007 Hemoglobin/Blood,Ur Negative Negative pH, Urine <8.5 6.0 Protein, Urine Negative Negative Urobilinogen 0.2-1.0 EU/dL 0.2 EU/dL Nitrites Negative Negative Leukest Negative Negative WBC, Urine 0-5 /HPF 0-5 /HPF RBC, Urine 0-2 /HPF 0-2 /HPF Bacteria Negative /HPF Negative Epithelial Cells /HPF None Seen Hyaline Cast 0 /LPF 0 /LPF Protein, Total 6.3 - 8.0 g/dL 6.5 Protein, Total 6.3 - 8.0 g/dL 6.5 Albumin 3.9 - 4.9 g/dL 4.4 Calcium 8.5 - 10.2 mg/dL 9.6 Bilirubin, Total 0.2 - 1.3 mg/dL 0.4 Alkaline Phosphatase 34 - 123 U/L 65 AST 13 - 35 U/L 31 ALT 7 - 38 U/L 22 Glucose 74 - 99 mg/dL 94 BUN 7 - 21 mg/dL 12 Creatinine 0.58 - 0.96 mg/dL 0.91 Sodium 136 - 144 mmol/L 140 Potassium 3.7 - 5.1 mmol/L 4.0 Chloride 97 - 105 mmol/L 104 CO2 22 - 30 mmol/L 24 Anion Gap 9 - 18 mmol/L 12 eGFR >=60 mL/min/1.73m 83 PTT LA Screen 30.2 - 43.0 Seconds 36.1 PTT LA Mix 31.5 - 38.3 Seconds 34.2 Platelet Neut <1.9 Seconds 0.0 DRVVT Screen 32.0 - 45.7 seconds 35.9 DRVVT Confirm Ratio <1.32 1.10 DRVVT 1:1 Mix 32.0 - 45.7 seconds 37.2 Hex Phase Screen 34.0 - 51.8 seconds 52.0 (H) Hex Phase Confirm 34.2 - 47.9 seconds 46.2 Hex Phase Delta <7.1 delta seconds 5.8 APTT Screen 24.0 - 35.1 seconds 28.7 Thrombin Time <18.6 seconds 17.8 Anti Xa Inhib Assay <0.10 <0.10 Albumin 3.43 - 5.41 g/dL 4.09 Alpha 1 Globulin 0.18 - 0.43 g/dL 0.27 Alpha 2 Globulin 0.42 - 0.98 g/dL 0.63 Beta Globulin 0.61 - 1.17 g/dL 0.75 Gamma Globulin 0.53 - 1.51 g/dL 0.76 Interpretation (Prot Electro) No definitive M protein is identified on protein electrophoresis. No definitive M protein is identified on protein electrophoresis. M-Protein Location -- M-Protein Concentration <=0.00 g/dL 0.00 SPE Staff Review Reviewed by Pallavi Childs M.D. MOOK Negative Positive ! MOOK Titer 1:80 MOOK Pattern Nuclear fine speckled Protein, Urine Random 0 - 20 mg/dL 7 Creatinine, Ur Random (UCRR) 20.0 - 300.0 mg/dL 38.3 Protein/Creat Ratio <0.15 mg/mg 0.18 (H) CCP Antibody IgG Qualitative Negative Negative CCP Antibody, IgG <20 Units <15 DNA Antibody <=200 IU/mL 29 DNA Antibody Qualitative Interpretation Negative Negative Sm Antibody Negative Negative Anti-Sm <1.0 AI <0.2 EMBEDDED SYSTEMS DEVELOPER Antibody QUAL Negative Negative Anti-EMBEDDED SYSTEMS DEVELOPER <1.0 AI <0.2 SSA Antibody Qual Negative Negative Anti-SSA <1.0 AI <0.2 Anti-SSB <1.0 AI <0.2 SSB Antibody Qual Negative Negative CENTROMERE AB QUAL Negative Negative Centromere Ab <1.0 AI <0.2 Scleroderma Ab Qual Negative Negative Scl-70 Abs, EIA <1.0 AI <0.2 MALIHA 1 ANTIBODY QUAL Negative Negative Maliha 1 Antibody <1.0 AI <0.2 Ribosomal EMBEDDED SYSTEMS DEVELOPER Qualitative Negative Negative Ribosomal EMBEDDED SYSTEMS DEVELOPER Ab <1.0 AI <0.2 Chromatin Ab Qual Negative Negative Chromatin Ab <1.0 AI <0.2 PT Sec 9.7 - 13.0 sec 11.1 PT INR 0.9 - 1.3 1.0 Interpretation(Lupus Anticoagulant) Normal - see comment below. Pathologist Reviewed by Radha Winchester MD Rheumatoid Factor <16 IU/mL <10 C3 86 - 166 mg/dL 137 C4 13 - 46 mg/dL 23 CK 42 - 196 U/L 116 CRP <0.9 mg/dL <0.3 WSR 0 - 20 mm/hr 9 APTT 23.0 - 32.4 sec 28.2 Cardiolipin Ab, IgA <12.0 APL <9.0 Cardiolipin Ab, IgG <15.0 GPL <9.0 Cardiolipin Ab, IgM <12.5 MPL <9.0 Beta 2 Glycoprotein, IgG <20 SGU <9 Beta 2 Glycoprotein, IgM <20 SMU <9 Legend: (H) High ! Abnormal New Health Issues: No New Social History: No New Family History: No REVIEW OF SYSTEMS: Review of system : unchanged from the previous visit (sleep patterns, mood, energy, appetite, stress, exercising). PHYSICAL EXAMINATION: General: Alert and oriented. Answered questions in an appropriate manner. Made eye contact without apparent pain behavior. HEENT: Head is normocephalic and features were symmetric. Cranial Nerves: II: Pupils: symmetric, Ill,lV,Vl: nl eye movements VII: Face symmetric. Motor: Bulk: Normal for age and gender. No abnormal movements were appreciated. 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 PLAN: Increase Diamox 500 mg PM & 250 mg am Labs : 1 month Seen [facility] optometry, not neuro ophthalmology Will forward chart to Dr Tamara Sherwood, see if she needs to see neuro ophthalmology MEDICATION TREATMENT: Medications to Start Taking Zinc Acetate, Oral, 50 mg (zinc) cap Take 50 capsules by mouth once daily. HEADACHE MANAGEMENT: (You are the primary guardian of your health and headache. Keep track of all medications: This includes the reason for use, side effects and benefits.) Headache education was done. Discussed lifestyle modification including increased oral hydration, decreased caffeine, exercise and stress management. Discussed treatment options including preventive and acute medications, natural supplements, and infusion therapy. Discussed medication overuse headache and to limit use of acute treatments to no more than 2 days/week or 10 days/month. Discussed medication side effects, adverse reactions and drug interactions. Written educational materials and patient instructions outlining all of the above were given. Follow-up: 3 months Level of service: [facility] level 3 (20-29 min). Time spent 25 min on the day of service, which included preparing to see the patient, [id number] patient care, completing clinical documentation, counseling and educating the patient/family/caregiver, and ordering medications, tests, or procedures. Emilee Roca APRN.VAISHNAVI documented in this encounterAcmc [facility]08-[facility]24 NoteHNO ID: [id number] Author: EMILEE ROCA APRN.VAISHNAVI Service: ? Author Type: Nurse Practitioner Type: Progress Notes Filed: 01/01/2024 12:24 Note Text: [facility] - Follow up Virtual Visit Last OV:10/09/23 Dr Goldberg Accompanied by: Self This visit was conducted as a virtual visit, with patient's permission, via ZOOM. It required patient-provider interaction for the medical decision making as documented below. Patient stated name and Patient location [place], [place] I have communicated my name and active licensure. The patient's identity and physical location were verified at the time of this visit. Either the patient or their legal claim service representative has been informed of the risks and benefits of -- and alternatives to -- treatment through a remote evaluation and consents to proceed with the evaluation remotely. Primary Problem List: There is no problem list on file for this patient. Chief Complaint: Headache Interval Headache Hx: Trace disk edema OU per ophthalmology(OD) No Longer has swishing in her ears Plan from last visit: Diagnoses and all orders for this visit: IIH (idiopathic intracranial hypertension) - acetaZOLAMIDE (DIAMOX) 250 mg tablet; Take 1 tablet by mouth two times a day. - CONSULT TO OPHTHALMOLOGY; Future - CONSULT [facility]; Future - PROVIDER ORDERED FOLLOW UP; Future Class 1 obesity due to excess calories with serious comorbidity and body mass index (BMI) of 32.0 to 32.9 in adult - CONSULT [facility]; Future - PROVIDER ORDERED FOLLOW UP; Future Pt is 38 year old female with IIH, recent weight gain, daily MILLER's--off Diamox. I have restarted the Diamox today, and she has an ophthalmology appt with retinal specialists in 2-3 weeks. I am referring her to neuro-ophthalmology, but she will continue to see her retinal specialist in the interim. Restarting Diamox 250 mg po bid today--urged adherence to prevent visual loss. I have asked her to get me copies of her MRI, MRV, and LP's. I have also asked for copies of prior ophthalmology notes that apparently did confirm papilledema. Return 3 months. She may have an element of migraine, but reluctant to diagnose this until we get her ICP managed. Rafy Goldberg MD October 09, 2023 8:32 AM Headache 1 Location: temporal Quality/Description: pressure Associated Symptoms: Photophobia: yes Phonophobia: no Nausea: yes Vomiting: no Worse with activity: yes Number of migraine headache days/month: 12 Migraine headache severity: 4/10 Duration of headaches with treatment: 2 hours Triggers: foods Onset of headache to peak: varies Positional changes: no Most common time of day for headache to begin: anytime and evening Aura: none Allodynia: no Headache status since the last visit: better Lifestyle: Exercise: walk daily Issues and questions to be addressed: Medications Current Outpatient Medications Medication Sig Zinc Acetate, Oral, 50 mg (zinc) cap Take 50 capsules by mouth once daily. acetaZOLAMIDE (DIAMOX) 250 mg tablet Take 1 tablet by mouth two times a day. Cetirizine 10 mg cap mv,calcium,min/iron/folic/vitK (MULTI FOR HER ORAL) PREMARIN 0.45 mg tablet montelukast (SINGULAIR) 10 mg tablet Montelukast Active 10 MG PO Daily March 24, 2021 12:00am No current facility-administered medications for this visit. ALLERGIES Allergen Reactions Adhesive Rash Latex Rash Nickel Rash, Unknown Oxycodone Rash Oxycodone-Acetamino* Unknown Silk Other: See Comments Silk tape Sulfadiazine Rash Sulfamethoxazole-Tr* Unknown Acetaminophen Hives, Itching Adhesive Tape (Cammie* Hives, Itching HEADACHE SCORES: 10/02/2023 01/01/2024 Headache Questions ID Migraine Screener: 0 (Negative) ER visits in the last year: 0 Hospital stays in the last year: 0 Limited ADLs in the last month: 0 Days missed from work or school in the last month: 0 Days headache pain free in the last month: 0 Days per month with ALL of the following symptoms - decreased productivity, light sensitivity and nausea: 0 Patient impression of improvement since last visit: Minimally improved 10/02/2023 01/01/2024 HIT-6 HIT-6 59 (Substantial impact) 48 (Little or no impact) 10/02/2023 01/01/2024 CONCHA - 2/7 SCORES CONCHA-2 Score 1 0 01/01/2024 Migraine Specific QOL - Higher scores indicate better HRQL Role Function-Restrictive Transformed Score (range: 0-100) 100 Role Function-Preventive Transformed Score (range: 0-100) 100 Emotional Function Transformed Score (range: 0-100) 100 01/01/2024 10/02/2023 PHQ-9 Score 0 8 HEADACHE SCORES: 10/02/2023 01/01/2024 Headache Questions ID Migraine Screener: 0 (Negative) ER visits in the last year: 0 Hospital stays in the last year: 0 Limited ADLs in the last month: 0 Days missed from work or school in the last month: 0 Days headache pain free in the last month: 0 Days per month with ALL of the followin (more content not included)...[facility]08-16-2024 NoteDate of Procedure 12/25/2023. 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 Quality Right Eye Good. Left Eye Good. NFL Interpretation Right Eye Normal. Left Eye Normal. Interval Change Right Eye Initial. Left Eye Initial.[id number] NoteHNO ID: [id number] Author: TAMANNA BARRY OD Service: ? Author Type: CUPOLA OPERATOR Type: Progress Notes Filed: 12/25/2023 14:30 Note Text: ASSESSMENT/PLAN: 1. IIH (idiopathic intracranial hypertension) - ICD9: 348.2, ICD10: G93.2 (primary diagnosis) - OCT OPTIC NERVE CIRRUS OU (BOTH EYES) 12/2021 had rapidly progressing vision loss. MRI/MRA negative and then had LP with high opening pressure confirming IIH. Recently restarted diamox per neurology - whooshing and vision improving. Elevated nerves OU with possible drusen. There appears to be very trace disc edema OU. RNFL baseline today. Excellent vision. RTC 6 months for optic disc OCT and 30-2, sooner if worsening symptoms. Continue diamox per neurology. 2. Accommodation spasm, bilateral - ICD9: 367.53, ICD10: H52.533 Known to patient. Cyclo refraction completed today. Final Rx with 0.25D less plus than CR. Keep PAL as it works well for patient. Adaptation time discussed. 3. Hyperopic astigmatism of both eyes - ICD9: 367.20, ICD10: H52.203 As above. +History of white dot syndrome - no signs of posterior uveitis on exam today. Tamanna Barry, OD I have confirmed and edited as necessary the relevant ophthalmic history, ROS, and the exam findings as obtained by others. I have seen and examined this patient. I have discussed the case and the management of this patient's care with the resident or fellow as appropriate. I also have reviewed and agree with the assessment and plan as stated above and agree with all of its relevant components. Tamanna Barry, OD December 25, 2023 2:26 [facility]08-16-2024 History of Present illness Narrative* Tamanna Barry, OD - 12/25/2023 2:26 PM EDT ASSESSMENT/PLAN: 1. IIH (idiopathic intracranial hypertension) - ICD9: 348.2, ICD10: G93.2 (primary diagnosis) - OCT OPTIC NERVE CIRRUS OU (BOTH EYES) 12/2021 had rapidly progressing vision loss. MRI/MRA negative and then had LP with high opening pressure confirming IIH. Recently restarted diamox per neurology - osvaldo and vision improving. Elevated nerves OU with possible drusen. There appears to be very trace disc edema OU. RNFL baseline today. Excellent vision. RTC 6 months for optic disc OCT and 30-2, sooner if worsening symptoms. Continue diamox per neurology. 2. Accommodation spasm, bilateral - ICD9: 367.53, ICD10: H52.533 Known to patient. Cyclo refraction completed today. Final Rx with 0.25D less plus than CR. Keep PAL as it works well for patient. Adaptation time discussed. 3. Hyperopic astigmatism of both eyes - ICD9: 367.20, ICD10: H52.203 As above. +History of white dot syndrome - no signs of posterior uveitis on exam today. Tamanna Barry, OD I have confirmed and edited as necessary the relevant ophthalmic history, ROS, and the exam findings as obtained by others. I have seen and examined this patient. I have discussed the case and the management of this patient's care with the resident or fellow as appropriate. I also have reviewed andagree with the assessment and plan as stated above and agree with all of its relevant components. Tamanna Barry, YAIMA December 25, 2023 2:26 PM documented in this encounterAcmc [facility]08-14-[facility]24 Hospital Discharge instructions Additional Instructions Please return to emergency department for any new or worrisome symptoms including any swelling of arm, numbness, weakness, tingling, redness of arm, fevers or chills. Follow-up with your family physician within the next 1 to 2 days.[facility] Work Phone: [phone]) 875-556406-03-2024 History of Present illness Narrative* Alem Cuadra MD - 10/12/2023 2:30 PM EDT Images from the original note were not included. Rheumatology Outpatient Clinic Date of Service: 10/12/2023 Patient: Karolina Nicole Medical Record: [id number] Primary Care Physician: No primary care provider on file. Referring Provider: SELF Last Rheumatology visit: 09/29/2023 (with Alem Cuadra) Chief complaint: Joint Pain The patient's identity and physical location were verified at the time of this visit. Either the patient or their legal claim service representative has been informed of the risks and benefits of virtual visit andalternative treatment through a remote evaluation and consents to proceed with the evaluation remotely. 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 Karolina is both RF - 9 (09/29/2023) and CCP - 13.5 (09/29/2023) negative. Her most recent MOOK was positive (09/29/2023). HISTORY OF PRESENT ILLNESS Seen as new patient in 09/2023, per HPI- Patient reports multiple joint pain including bilateral hips, knees, hands, neck, low back for manyyears, did PT, told to have degenerative arthritis and chronic pain. Physical therapy does not help with the pain She also reports that her skin is tender to touch, even massage hurts Pain is worse in am and worse with activities She reports mild swelling in her whole hands which is constant with intermittent worsening of swelling along with whole body swelling and whole body pain on and off, almost once every 6 months. 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 She reports that optic neuritis was ruled out, denies any history of uveitis or iritis She had MRI, LP, ruled out MS, Diamox has been recommended for intracranial hypertension She reports being sick 4 times since apr 2023- had coivd, strep, stomach flu Mid August 2023-she had whole body pain associated with fever, had Blisters in the mouth, she went to ER, had infectious workup done including blood culture which was negative, she was discharged home Later she also started having neck stiffness, she went back to ER, had lumbar puncture and meningitis was ruled out. She was given prednisone for 5 days that helped with her whole body swelling but not with the pain. 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 During initial evaluation in 09/2023-no evidence of synovitis or joint effusion, due to polyarthralgia with elevated sed rate, further workup was sent. Neurology 09/2023-restarted Diamox for increased intracranial hypertension, recommended retinal specialist, neuro ophthalmology. 09/2023 Protein creatinine ratio 0.18, UA-no proteinuria/hematuria Protein electrophoresis-no M protein MOOK positive, 1: 80 Anti-CISCO, dsDNA negative Lupus anticoagulant negative Anticardiolipin antibody, beta-2 glycoprotein negative Sed rate/CRP normal CK normal C3/C4 normal CBC/CMP unremarkable RF/CCP negative Radiograph SI joint 09/2023-1. No acute osseous abnormality. 2. No erosions or evidence for inflammatory arthropathy. 3. L5-S1 spondylosis. Previous workups reviewed in patient's phone 08/2023 Sed rate 30 CRP 7.6 CSF cell count 2, protein 44 CT C spine- mild degenerative changes CXR- unremarkable XR bilateral hands 11/2022- unremarkable CT facial bone 06/2023- 1. No acute facial fracture. 2. Mild paranasal sinus disease with small left mastoid effusion. INTERVAL HISTORY Today She had follow-up to discuss test results She denies any new symptoms. She reports that she was on cymbalta yrs ago for mood, did not help for mood so was stopped Patient-Entered Data PAIN EVALUATION No data found in the last 1 encounters. PROMIS Assessments 09/27/2023 PROMIS Assessments Physical Health Percentile 10 Mental Health Percentile 34 Pain Score 3 Pain Interference Percentile 21 Fatigue Percentile 18 Physical Function Percentile 16 RAPID 3 Long Activities of Daily Living 09/27/2023 8:52 PM Dress self? Without ANY difficulty Get in and out of bed? Without ANY difficulty Walk outdoors? Without ANY difficulty Wash and dry body? Without ANY difficulty Get in and out of car? Without ANY difficulty RAPID 3 Disease Activity Weighed Score Levels: 0 - 1: Near Remission 1.3 - 2.0: Low Severity 2.3 - 4.0: Moderate Severity 4.3 - 10.0: High Severity 09/27/2023 RAPID-3 Weighed Score RAPID 3 Weighed Score 4.67 (High severity ) Review of Systems Review of Systems CONSTITUTION: Negative for: Fever and Recent weight change HEENT: Positive for: Mouth sores and Trouble swallowing Negative for: Nosebleeds and Dry mouth RESPIRATORY: Negative for: Cough, Shortness of breath and Pain with breathing GASTROINTESTINAL: Negative for: Melena, Diarrhea, Heartburn and Abdominal pain MUSCULOSKELETAL: Positive for: Arthralgias, Myalgias, Muscle weakness, Joint swelling and Morning Joint Stiffness NEUROLOGICAL: Positive for: Numbness and Memory loss Negative for: Headaches SKIN: Positive for: Hair loss Negative for: Rash, Skin changes and Nail changes EYES: Positive for: Visual disturbance Negative for: Eye pain, Eye redness and Eye dryness CARDIOVASCULAR: Positive for: Leg swelling Negative for: Chest pain GENITOURINARY: Negative for: Dysuria and Hematuria HEMATOLOGIC/LYMPHATIC: Positive for: Swollen glands Palpable cervical only during the flares Raynaud's: Denies Sicca: Dry eyes sometimes Past Medical History PAST MEDICAL HISTORY Diagnosis Date IIH (idiopathic intracranial hypertension) Past Surgical History PAST SURGICAL HISTORY Procedure Laterality Date LAPAROSCOPIC CHOLECYSTECTOMY 07/29/2023 LAPAROSCOPY-ROBERTO 10/19/2012 LIGATE FALLOPIAN TUBE Bilateral 12/15/2011 REMOVAL OF OVARY/TUBE(S) Bilateral 10/19/2012 TOTAL ABDOM HYSTERECTOMY 10/19/2012 Allergy ALLERGIES Allergen Reactions Latex Rash Nickel Rash Oxycodone Rash Silk Other: See Comments Silk tape Sulfadiazine Rash Family History Aunt being worked up for SLE, grandmother had SLE, mother- RA/fibromyalgia, sister has RA The patient denies family history of Sarcoidosis, Scleroderma, IBD or Psoriasis. No family history on file. Social History Social History Tobacco Use Smoking status: Every Day Packs/day: .5 Types: Cigarettes Smokeless tobacco: Never Tobacco comments: 1 pack every 2 days Substance Use Topics Alcohol use: Not Currently Drug use: Not Currently Current Medications Current Outpatient Medications Medication Sig acetaZOLAMIDE (DIAMOX) 250 mg tablet Take 1 tablet by mouth two times a day. Cetirizine 10 mg cap mv,calcium,min/iron/folic/vitK (MULTI FOR HER ORAL) PREMARIN 0.45 mg tablet montelukast (SINGULAIR) 10 mg tablet Montelukast Active 10 MG PO Daily March 24, 2021 12:00am Current Facility-Administered Medications Medication Dose Route Frequency perflutren lipid microspheres 1.3 mL in NaCl (PF) 0.9% 10 mL injection (DEFINITY) INTRAVENOUS DIRECTED PRN sodium chloride 0.9 % (flush) 10 mL (BD POSIFLUSH) 10 mL INTRAVENOUS DIRECTED PRN Labs Latest Ref Rng & Units 09/29/2023 CBC WBC 3.70 - 11.00 k/uL 7.43 Hemoglobin 11.5 - 15.5 g/dL 13.4 Hematocrit 36.0 - 46.0 % 38.4 Platelet Count 150 - 400 k/uL 316 Abs Neut (ANC) 1.45 - 7.50 k/uL 3.74 Abs Lymph 1.00 - 4.00 k/uL 3.08 Latest Ref Rng & Units 09/29/2023 CMP Sodium 136 - 144 mmol/L 140 Potassium 3.7 - 5.1 mmol/L 4.0 Chloride 97 - 105 mmol/L 104 CO2 22 - 30 mmol/L 24 Glucose 74 - 99 mg/dL 94 BUN 7 - 21 mg/dL 12 Creatinine 0.58 - 0.96 mg/dL 0.91 Calcium 8.5 - 10.2 mg/dL 9.6 AST 13 - 35 U/L 31 ALT 7 - 38 U/L 22 Alkaline Phosphatase 34 - 123 U/L 65 Latest Ref Rng & Units 09/29/2023 ESR, WSR WSR 0 - 20 mm/hr 9 Latest Ref Rng & Units 09/29/2023 CRP CRP <0.9 mg/dL <0.3 Latest Ref Rng & Units 09/29/2023 C3, C4 C3 86 - 166 mg/dL 137 C4 13 - 46 mg/dL 23 Latest Ref Rng & Units 09/29/2023 CK CK 42 - 196 U/L 116 Latest Ref Rng & Units 09/29/2023 RF and CCP Rheumatoid Factor <16 IU/mL <10 CCP Antibody IgG Qualitative Negative Negative CCP Antibody, IgG <20 Units <15 Latest Ref Rng & Units 09/29/2023 Antibodies MOOK Negative Positive MOOK Titer 1:80 MOOK Pattern Nuclear fine speckled DNA Antibody <=200 IU/mL 29 Anti-Sm <1.0 AI <0.2 Sm Antibody Negative Negative Ribosomal EMB[employer]DED SYSTEMS DEVELOPER Ab <1.0 AI <0.2 Ribosomal EMBEDDED SYSTEMS DEVELOPER Qualitative Negative Negative Chromatin Ab <1.0 AI <0.2 Chromatin Ab Qual Negative Negative SSA Antibody Qual Negative Negative Anti-SSA <1.0 AI <0.2 Anti-SSB <1.0 AI <0.2 EMBEDDED SYSTEMS DEVELOPER Antibody QUAL Negative Negative Scleroderma Ab Qual Negative Negative Scl-70 Abs, EIA <1.0 AI <0.2 Centromere Ab <1.0 AI <0.2 CENTROMERE AB QUAL Negative Negative MALIHA-1 ANTIBODY, IGG <1.0 AI <0.2 MALIHA 1 ANTIBODY QUAL Negative Negative Beta 2 Glycoprotein, IgM <20 SMU <9 Cardiolipin Ab, IgG <15.0 GPL <9.0 Cardiolipin Ab, IgM <12.5 MPL <9.0 Cardiolipin Ab, IgA <12.0 APL <9.0 PT Sec 9.7 - 13.0 sec 11.1 PT INR 0.9 - 1.3 1.0 APTT 23.0 - 32.4 sec 28.2 Platelet Neut <1.9 Seconds 0.0 DRVVT Screen 32.0 - 45.7 seconds 35.9 DRVVT Confirm Ratio <1.32 1.10 DRVVT 1:1 Mix 32.0 - 45.7 seconds 37.2 Hex Phase Screen 34.0 - 51.8 seconds 52.0 Hex Phase Confirm 34.2 - 47.9 seconds 46.2 Hex Phase Delta <7.1 delta seconds 5.8 APTT Screen 24.0 - 35.1 seconds 28.7 Thrombin Time <18.6 seconds 17.8 Anti Xa Inhib Assay <0.10 <0.10 Latest Ref Rng & Units 09/29/2023 Urinalysis Protein, Urine Negative Negative RBC, Urine 0-2 /HPF 0-2 /HPF Protein/Creat Ratio <0.15 mg/mg 0.18 Imaging Last XR Hand/Finger - Impression Only No resulted procedures found. Last MRI Hand - Impression Only No resulted procedures found. Last XR Chest - Impression Only No resulted procedures found. Last XR Cervical Spine - Impression Only No resulted procedures found. Health Maintenance Current Immunizations Never Reviewed No immunizations on file. Physical Exam Exam limited as this is a video visit General: no acute distress, Resp: No acute distress, normal respirations Neuro: alert, No facial asymmetry; normal cognition Skin: No facial rash Diagnoses: (M25.50) Polyarthralgia (primary encounter diagnosis) (G89.4) Chronic pain syndrome Impression and Plan 1. Polyarthralgia 2. Chronic pain syndrome 3. Positive MOOK Patient with multiple joint pains episodic whole-body pain with whole body swelling along with fatigue, brain fog No synovitis on exam however had multiple soft tissue and joint tenderness during last visit Noted mildly elevated sed rate and CRP in the setting of fever, repeat sed rate and CRP is normal She does report that her whole body swelling went down with prednisone for 5 days did not help muchwith the pain Noted unremarkable radiograph of bilateral hands in 11/2022, radiograph SI joint 09/2023-spondylosis,no sacroiliitis Has history of 3 early miscarriages and idiopathic intracranial hypertension, antiphospholipid antibodies are negative Although MOOK is mildly elevated, 1: 80, anti-CISCO and dsDNA is negative, C3 and C4 is normal, no evidence of proteinuria/hematuria Fever with cervical lymphadenopathy, oral ulcers, polyarthralgia does raise concern for PFAPA, however these episodes with fever and oral ulcers has happened only once, also PFAPA would be unusual atthis age 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 4. Healthcare maintenance/Malignancy screening Defer to PCP Orders this visit: [facility] on 10/12/23 C-REACTIVE PROTEIN SEDIMENTATION RATE, AZUCENA CONSULT TO [facility] (CHRONIC PAIN) Return for Pending test results. I spent a total of 25 minutes on the date of the service This note was partially generated with the assistance of [employer] voice recognition software. An attempt was made to correct any dictation errors however there may be some incorrect words, spellings, and punctuation. Alem Cuadra MD, [facility] Rheumatology documented in [place] encounterConnie [place] [address]-03-2024 NoteHNO ID: [id number] Author: ALEM CUADRA MD Service: ? Author Type: Physician Type: Progress Notes Filed: 10/12/2023 16:34 Note Text: Rheumatology Outpatient Clinic Date of Service: 10/12/2023 Patient: Karolina Nicole Medical Record: [id number] Primary Care Physician: No primary care provider on file. Referring Provider: SELF Last Rheumatology visit: 09/29/2023 (with Alem Cuadra) Chief complaint: Joint Pain The patient's identity and physical location were verified at the time of this visit. Either the patient or their legal claim service representative has been informed of the risks and benefits of virtual visit and alternative treatment through a remote evaluation and consents to proceed with the evaluation remotely. 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 Karolina is both RF - 9 (09/29/2023) and CCP - 13.5 (09/29/2023) negative. Her most recent MOOK was positive (09/29/2023). HISTORY OF PRESENT ILLNESS Seen as new patient in 09/2023, per HPI- Patient reports multiple joint pain including bilateral hips, knees, hands, neck, low back for many years, did PT, told to have degenerative arthritis and chronic pain. Physical therapy does not help with the pain She also reports that her skin is tender to touch, even massage hurts Pain is worse in am and worse with activities She reports mild swelling in her whole hands which is constant with intermittent worsening of swelling along with whole body swelling and whole body pain on and off, almost once every 6 months. 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 She reports that optic neuritis was ruled out, denies any history of uveitis or iritis She had MRI, LP, ruled out MS, Diamox has been recommended for intracranial hypertension She reports being sick 4 times since apr 2023- had coivd, strep, stomach flu Mid August 2023-she had whole body pain associated with fever, had Blisters in the mouth, she went to ER, had infectious workup done including blood culture which was negative, she was discharged home Later she also started having neck stiffness, she went back to ER, had lumbar puncture and meningitis was ruled out. She was given prednisone for 5 days that helped with her whole body swelling but not with the pain. 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 During initial evaluation in 09/2023-no evidence of synovitis or joint effusion, due to polyarthralgia with elevated sed rate, further workup was sent. Neurology 09/2023-restarted Diamox for increased intracranial hypertension, recommended retinal specialist, neuro ophthalmology. 09/2023 Protein creatinine ratio 0.18, UA-no proteinuria/hematuria Protein electrophoresis-no M protein MOOK positive, 1: 80 Anti-CISCO, dsDNA negative Lupus anticoagulant negative Anticardiolipin antibody, beta-2 glycoprotein negative Sed rate/CRP normal CK normal C3/C4 normal CBC/CMP unremarkable RF/CCP negative Radiograph SI joint 09/2023-1. No acute osseous abnormality. 2. No erosions or evidence for inflammatory arthropathy. 3. L5-S1 spondylosis. Previous workups reviewed in patient's phone 08/2023 Sed rate 30 CRP 7.6 CSF cell count 2, protein 44 CT C spine- mild degenerative changes CXR- unremarkable XR bilateral hands 11/2022- unremarkable CT facial bone 06/2023- 1. No acute facial fracture. 2. Mild paranasal sinus disease with small left mastoid effusion. INTERVAL HISTORY Today She had follow-up to discuss test results She denies any new symptoms. She reports that she was on cymbalta yrs ago for mood, did not help for mood so was stopped Patient-Entered Data PAIN EVALUATION No data found in the last 1 encounters. PROMIS Assessments 09/27/2023 PROMIS Assessments Physical Health Percentile 10 Mental Health Percentile 34 Pain Score 3 Pain Interference Percentile 21 Fatigue Percentile 18 Physical Function Percentile 16 RAPID 3 Long Activities of Daily Living 09/27/2023 8:52 PM Dress self? Without ANY difficulty Get in and out of bed? Without ANY difficulty Walk outdoors? Without ANY difficulty Wash and dry body? Without ANY difficulty Get in and out of car? Without ANY difficulty RAPID 3 Disease Activity (more content not included)...[facility]05-31-2024 NoteHNO ID: [id number] Author: RAFY GOLDBERG MD Service: ? Author Type: Physician Type: Progress Notes Filed: 10/09/2023 08:35 Note Text: HEADACHE MEDICINE NEW EVALUATION October 09, 2023 8:00 AM I have communicated my name and active licensure. The patient's identity and physical location were verified at the time of this visit. Either the patient or their legal claim service representative has been informed of the risks and benefits of -- and alternatives to -- treatment through a remote evaluation and consents to proceed with the evaluation remotely. Headache 1 Onset: - Pt was diagnosed in 2021 with IIH following right eye vision. MRI/MRV were done that showed signs of IIH. LP OP was ~30. Placed on Diamox, but not adherent--no neuro care in ~ 1 year. Dose of Diamox was 250 mg BID. ++ pulsatile tinnitus with laying down. Location: holcephalic Quality/Description: pressure Associated Symptoms: Photophobia: yes Phonophobia: no Nausea: no Vomiting: no Worse with activity: no Number of migraine headache days/month: 0 Number of NON-migraine headache days/month: 30 Non-migraine headache severity: 7 Total Number of headache days/month: 30 Number of headache free days/month: 0 Current preventive treatment: none Current abortive treatment: APAP--improves Triggers: none Onset of headache to peak: gradual Relieving factors: caffeine Positional changes: yes - Pulsatile tinnitus when laying down. Most common time of day for headache to begin: evening Prodrome: none Aura: blurred vision Red flags: positional component Allodynia: no Days missed from work or school in the last month: 0 days Pt reports that she has an appointment in October 2023 with ophthalmology (retinal specialist). Last eye exam was over a year ago. Reports episodic blurred vision. Lost weight on Ozempic, but insurance didn't cover. She has regained the weight in the interim. Discussed weight loss--she [facility]. PAST MEDICAL HISTORY Diagnosis Date IIH (idiopathic intracranial hypertension) PAST SURGICAL HISTORY Procedure Laterality Date LAPAROSCOPIC CHOLECYSTECTOMY 07/29/2023 LAPAROSCOPY-ROBERTO 10/19/2012 LIGATE FALLOPIAN TUBE Bilateral 12/15/2011 REMOVAL OF OVARY/TUBE(S) Bilateral 10/19/2012 TOTAL ABDOM HYSTERECTOMY 10/19/2012 Current Outpatient Medications Medication Sig melatonin/thean/lemon/david/lav (SLEEP CALM ORAL) Take by mouth. THC oral gummies. Cetirizine 10 mg cap mv,calcium,min/iron/folic/vitK (MULTI FOR HER ORAL) PREMARIN 0.45 mg tablet montelukast (SINGULAIR) 10 mg tablet Montelukast Active 10 MG PO Daily March 24, 2021 12:00am hydrOXYzine HCl (ATARAX) 25 mg tablet Current Facility-Administered Medications Medication Dose Route Frequency perflutren lipid microspheres 1.3 mL in NaCl (PF) 0.9% 10 mL injection (DEFINITY) INTRAVENOUS DIRECTED PRN sodium chloride 0.9 % (flush) 10 mL (BD POSIFLUSH) 10 mL INTRAVENOUS DIRECTED PRN ALLERGIES Allergen Reactions Latex Rash Nickel Rash Oxycodone Rash Silk Other: See Comments Silk tape Sulfadiazine Rash No family history on file. Social History Tobacco Use Smoking status: Every Day Packs/day: .5 Types: Cigarettes Smokeless tobacco: Never Tobacco comments: 1 pack every 2 days Substance Use Topics Alcohol use: Not Currently Drug use: Not Currently PHYSICAL EXAMINATION: No vitals for VV General appearance: Well appearing, alert, in no acute distress, well-hydrated, well nourished. Head: NC/AT Eyes: EOMI grossly on video visit Neuro: Negative findings: speech normal, mental status intact, no focal deficits. CN VII intact to facial symmetry, CN VIII intact to hearing. Karolina was seen today for daily headache. Diagnoses and all orders for this visit: IIH (idiopathic intracranial hypertension) - acetaZOLAMIDE (DIAMOX) 250 mg tablet; Take 1 tablet by mouth two times a day. - CONSULT TO OPHTHALMOLOGY; Future - CONSULT [facility]; Future - PROVIDER ORDERED FOLLOW UP; Future Class 1 obesity due to excess calories with serious comorbidity and body mass index (BMI) of 32.0 to 32.9 in adult - CONSULT [facility]; Future - PROVIDER ORDERED FOLLOW UP; Future Pt is 38 year old female with IIH, recent weight gain, daily MILLER's--off Diamox. I have restarted the Diamox today, and she has an ophthalmology appt with retinal specialists in 2-3 weeks. I am referring her to neuro-ophthalmology, but she will continue to see her retinal specialist in the interim. Restarting Diamox 250 mg po bid today--urged adherence to prevent visual loss. I have asked her to get me copies of her MRI, MRV, and LP's. I have also asked for copies of prior ophthalmology notes that apparently did confirm papilledema. Return 3 months. She may have an element of migraine, but reluctant to diagnose this until we get her ICP managed. (more content not included)...[facility]05-31-2024 History of Present illness Narrative* Rafy Goldberg MD - 10/09/2023 8:00 AM EDT HEADACHE MEDICINE NEW EVALUATION October 09, 2023 8:00 AM I have communicated my name and active licensure. The patient's identity and physical location wereverified at the time of this visit. Either the patient or their legal claim service representative has been informed of the risks and benefits of -- and alternatives to -- treatment through a remote evaluation andconsents to proceed with the evaluation remotely. Headache 1 Onset: - Pt was diagnosed in 2021 with IIH following right eye vision. MRI/MRV were done that showed signs of IIH. LP OP was ~30. Placed on Diamox, but not adherent--no neuro care in ~ 1 year. Dose of Diamox was 250 mg BID. ++ pulsatile tinnitus with laying down. Location: holcephalic Quality/Description: pressure Associated Symptoms: Photophobia: yes Phonophobia: no Nausea: no Vomiting: no Worse with activity: no Number of migraine headache days/month: 0 Number of NON-migraine headache days/month: 30 Non-migraine headache severity: 7 Total Number of headache days/month: 30 Number of headache free days/month: 0 Current preventive treatment: none Current abortive treatment: APAP--improves Triggers: none Onset of headache to peak: gradual Relieving factors: caffeine Positional changes: yes - Pulsatile tinnitus when laying down. Most common time of day for headache to begin: evening Prodrome: none Aura: blurred vision Red flags: positional component Allodynia: no Days missed from work or school in the last month: 0 days Pt reports that she has an appointment in October 2023 with ophthalmology (retinal specialist). Last eye exam was over a year ago. Reports episodic blurred vision. Lost weight on Ozempic, but insurance didn't cover. She has regained the weight in the interim. Discussed weight loss--she is [facility] see [facility] options. PAST MEDICAL HISTORY Diagnosis Date IIH (idiopathic intracranial hypertension) PAST SURGICAL HISTORY Procedure Laterality Date LAPAROSCOPIC CHOLECYSTECTOMY 07/29/2023 LAPAROSCOPY-ROBERTO 10/19/2012 LIGATE FALLOPIAN TUBE Bilateral 12/15/2011 REMOVAL OF OVARY/TUBE(S) Bilateral 10/19/2012 TOTAL ABDOM HYSTERECTOMY 10/19/2012 Current Outpatient Medications Medication Sig melatonin/thean/lemon/david/lav (SLEEP CALM ORAL) Take by mouth. THC oral gummies. Cetirizine 10 mg cap mv,calcium,min/iron/folic/vitK (MULTI FOR HER ORAL) PREMARIN 0.45 mg tablet montelukast (SINGULAIR) 10 mg tablet Montelukast Active 10 MG PO Daily March 24, 2021 12:00am hydrOXYzine HCl (ATARAX) 25 mg tablet Current Facility-Administered Medications Medication Dose Route Frequency perflutren lipid microspheres 1.3 mL in NaCl (PF) 0.9% 10 mL injection (DEFINITY) INTRAVENOUS DIRECTED PRN sodium chloride 0.9 % (flush) 10 mL (BD POSIFLUSH) 10 mL INTRAVENOUS DIRECTED PRN ALLERGIES Allergen Reactions Latex Rash Nickel Rash Oxycodone Rash Silk Other: See Comments Silk tape Sulfadiazine Rash No family history on file. Social History Tobacco Use Smoking status: Every Day Packs/day: .5 Types: Cigarettes Smokeless tobacco: Never Tobacco comments: 1 pack every 2 days Substance Use Topics Alcohol use: Not Currently Drug use: Not Currently PHYSICAL EXAMINATION: No vitals for VV General appearance: Well appearing, alert, in no acute distress, well-hydrated, well nourished. Head: NC/AT Eyes: EOMI grossly on video visit Neuro: Negative findings: speech normal, mental status intact, no focal deficits. CN VII intact to facial symmetry, CN VIII intact to hearing. Karolina was seen today for daily headache. Diagnoses and all orders for this visit: IIH (idiopathic intracranial hypertension) - acetaZOLAMIDE (DIAMOX) 250 mg tablet; Take 1 tablet by mouth two times a day. - CONSULT TO OPHTHALMOLOGY; Future - CONSULT [facility]; Future - PROVIDER ORDERED FOLLOW UP; Future Class 1 obesity due to excess calories with serious comorbidity and body mass index (BMI) of 32.0 to 32.9 in adult - CONSULT [facility]; Future - PROVIDER ORDERED FOLLOW UP; Future Pt is 38 year old female with IIH, recent weight gain, daily MILLER's--off Diamox. I have restarted theDiamox today, and she has an ophthalmology appt with retinal specialists in 2-3 weeks. I am referring her to neuro-ophthalmology, but she will continue to see her retinal specialist in the interim. Restarting Diamox 250 mg po bid today--urged adherence to prevent visual loss. I have asked her to get me copies of her MRI, MRV, and LP's. I have also asked for copies of prior ophthalmology notes that apparently did confirm papilledema. Return 3 months. She may have an element of migraine, but reluctant to diagnose this until we get her ICP managed. Rafy Goldberg MD October 09, 2023 8:32 AM documented in this encounterA[facility] History and physical note * Anh Geller, - 10/08/2023 2:20 PM EDT SERVICE DATE: 10/08/2023 SERVICE TIME: 2:20 PM SERVICE: General Surgery REFERRAL PHYSICIAN: No referring provider defined for this encounter. Karolina Nicole is here today at the request of No referring provider defined for this encounter. for my 2nd opinion regarding surgical clip in RLQ and RLQ pain. My final recommendation will be communicated back to the requesting physician by way of shared medical record or letter. Assessment ASSESSMENT: RLQ pain, unclear source; s/p lap nithin at [facility] No evidence of Rt inguinal hernia on CT Surgical clip present (from recent lap nithin) in the RLQ posterior to the cecum PLAN: Informed patient I do not explore abdomen or to remove migrated surgical clip(s) from cholecystectomy. In fact, I am not aware anyone does. Patient should follow-up with her original surgeon for further evaluation and care Advise patient to call [facility] referral line if she seeks 3rd opinion. HPI: 38 year old y/o female who is s/p lap nithin 07/29/[address] Duran. Per chart review she had pain in the right groin that started 2-3 weeks after surgery. PT is concerned that a migrating clip causing this discomfort. The plan was for an US w/valsalva to r/o inguinal hernia. This is not done yet. Pt presents to clinic today for a second opinion. She made this appt herself. The pain has been present since about 2 weeks post op. She states it has been sharp/stabbing pain especially with sitting/bending. It is not down into the groin. There is no bulge in the groin. Pain is localized in the RLQ. Admits to severe allergic reaction to something few weeks ago, had to get steroid. Known history ofsevere reaction with nickel. She is not sure what surgical clips are made of. No past medical history on file. PAST SURGICAL HISTORY Procedure Laterality Date LAPAROSCOPIC CHOLECYSTECTOMY 07/29/2023 LAPAROSCOPY-ROBERTO 10/19/2012 LIGATE FALLOPIAN TUBE Bilateral 12/15/2011 REMOVAL OF OVARY/TUBE(S) Bilateral 10/19/2012 TOTAL ABDOM HYSTERECTOMY 10/19/2012 MEDICATIONS: Current Outpatient Medications: Cetirizine 10 mg cap, , Disp: , Rfl: mv,calcium,min/iron/folic/vitK (MULTI FOR HER ORAL), , Disp: , Rfl: PREMARIN 0.45 mg tablet, , Disp: , Rfl: montelukast (SINGULAIR) 10 mg tablet, Montelukast Active 10 MG PO Daily March 24, 2021 12:00am, Disp: , Rfl: melatonin/thean/lemon/david/lav (SLEEP CALM ORAL), Take by mouth. THC oral gummies., Disp: , Rfl: hydrOXYzine HCl (ATARAX) 25 mg tablet, , Disp: , Rfl: Current Facility-Administered Medications: perflutren lipid microspheres 1.3 mL in NaCl (PF) 0.9% 10 mL injection (DEFINITY), , INTRAVENOUS, DIRECTED PRN, Derrell Phipps MD sodium chloride 0.9 % (flush) 10 mL (BD POSIFLUSH), 10 mL, INTRAVENOUS, DIRECTED PRN, Derrell Phipps MD ALLERGIES Allergen Reactions Latex Rash Nickel Rash Oxycodone Rash Silk Other: See Comments Silk tape Sulfadiazine Rash No family history on file. Social History Tobacco Use Smoking status: Every Day Packs/day: .5 Types: Cigarettes Smokeless tobacco: Never Tobacco comments: 1 pack every 2 days Substance Use Topics Alcohol use: Not Currently Drug use: Not Currently REVIEW OF SYSTEMS: GENERAL: No weight loss, malaise or fevers HEENT: Negative for frequent or significant headaches, No changes in hearing or vision, no nose bleeds or other nasal problems NECK: Negative for lumps, goiter, pain and significant neck swelling RESPIRATORY: Negative for cough, hemoptysis, wheezing, COPD, dyspnea or shortness of breath, +asthma CARDIOVASCULAR: +bl le swelling GI: No nausea, vomiting, or diarrhea and +abdominal pain : No history of dysuria, frequency or incontinence MUSCULOSKELETAL: Negative for joint pain or swelling, back pain or muscle pain SKIN: Negative for lesions, rash, and itching PSYCH: Negative for sleep disturbance, mood disorder and recent psychosocial stressors HEMATOLOGY/LYMPHOLOGY: Negative for prolonged bleeding, bruising easily or swollen nodes ENDOCRINE: Negative for cold or heat intolerance, polyuria, polydipsia and goiter NEURO: Migraine headaches PHYSICAL EXAM: BP 127/91 Pulse 93 Ht 157.5 cm (5' 2 ) Wt 80.5 kg (177 lb 7.5 oz) SpO2 99% BMI 32.46 kg/m Body mass index is 32.46 kg/m . GENERAL: Healthy, alert, no distress, cooperative SKIN: Skin color, texture, turgor normal. No rashes or lesions. HEAD/SINUSES: No significant findings EYES: EOMI NECK: Supple ABDOMEN: soft, mild TTP RLQ without rebound or guarding. EXTREMITIES: No ulcers NEURO: Grossly normal cognition, motor function Diagnostic tests reviewed for today's visit: Most recent imaging outside records from [facility] reviewed, including recent CT and XR. Records scanned into her chart. Office visit note from Dr. Duran 10/06/23 also reviewed. SIGNATURE: Joslyn Velez RN PATIENT NAME: Karolina Nicole DATE: October 08, 2023 TIME: 2:20 PM Paula Geller DO [facility]05-30-2024 History and physical note* Anh Geller DO - 10/08/2023 2:20 PM EDT SERVICE DATE: 10/08/2023 SERVICE TIME: 2:20 PM SERVICE: General Surgery REFERRAL PHYSICIAN: No referring provider defined for this encounter. Karolina Nicole is here today at the request of No referring provider defined for this encounter. for my 2nd opinion regarding surgical clip in RLQ and RLQ pain. My final recommendation will be communicated back to the requesting physician by way of shared medical record or letter. Assessment ASSESSMENT: RLQ pain, unclear source; s/p lap nithin at OSH No evidence of Rt inguinal hernia on CT Surgical clip present (from recent lap nithin) in the RLQ posterior to the cecum PLAN: Informed patient I do not explore abdomen or to remove migrated surgical clip(s) from cholecystectomy. In fact, I am not aware anyone does. Patient should follow-up with her original surgeon for further evaluation and care Advise patient to call [facility] referral line if she seeks 3rd opinion. HPI: 38 year old y/o female who is s/p lap nithin 07/29/[address] Duran. Per chart review she had pain in the right groin that started 2-3 weeks after surgery. PT is concerned that a migrating clip causing this discomfort. The plan was for an US w/valsalva to r/o inguinal hernia. This is not done yet. Pt presents to clinic today for a second opinion. She made this appt herself. The pain has been present since about 2 weeks post op. She states it has been sharp/stabbing pain especially with sitting/bending. It is not down into the groin. There is no bulge in the groin. Pain is localized in the RLQ. Admits to severe allergic reaction to something few weeks ago, had to get steroid. Known history ofsevere reaction with nickel. She is not sure what surgical clips are made of. No past medical history on file. PAST SURGICAL HISTORY Procedure Laterality Date LAPAROSCOPIC CHOLECYSTECTOMY 07/29/2023 LAPAROSCOPY-ROBERTO 10/19/2012 LIGATE FALLOPIAN TUBE Bilateral 12/15/2011 REMOVAL OF OVARY/TUBE(S) Bilateral 10/19/2012 TOTAL ABDOM HYSTERECTOMY 10/19/2012 MEDICATIONS: Current Outpatient Medications: Cetirizine 10 mg cap, , Disp: , Rfl: mv,calcium,min/iron/folic/vitK (MULTI FOR HER ORAL), , Disp: , Rfl: PREMARIN 0.45 mg tablet, , Disp: , Rfl: montelukast (SINGULAIR) 10 mg tablet, Montelukast Active 10 MG PO Daily March 24, 2021 12:00am, Disp: , Rfl: melatonin/thean/lemon/david/lav (SLEEP CALM ORAL), Take by mouth. THC oral gummies., Disp: , Rfl: hydrOXYzine HCl (ATARAX) 25 mg tablet, , Disp: , Rfl: Current Facility-Administered Medications: perflutren lipid microspheres 1.3 mL in NaCl (PF) 0.9% 10 mL injection (DEFINITY), , INTRAVENOUS, DIRECTED PRN, Derrell Phipps MD sodium chloride 0.9 % (flush) 10 mL (BD POSIFLUSH), 10 mL, INTRAVENOUS, DIRECTED PRN, Derrell Phipps MD ALLERGIES Allergen Reactions Latex Rash Nickel Rash Oxycodone Rash Silk Other: See Comments Silk tape Sulfadiazine Rash No family history on file. Social History Tobacco Use Smoking status: Every Day Packs/day: .5 Types: Cigarettes Smokeless tobacco: Never Tobacco comments: 1 pack every 2 days Substance Use Topics Alcohol use: Not Currently Drug use: Not Currently REVIEW OF SYSTEMS: GENERAL: No weight loss, malaise or fevers HEENT: Negative for frequent or significant headaches, No changes in hearing or vision, no nose bleeds or other nasal problems NECK: Negative for lumps, goiter, pain and significant neck swelling RESPIRATORY: Negative for cough, hemoptysis, wheezing, COPD, dyspnea or shortness of breath, +asthma CARDIOVASCULAR: +bl le swelling GI: No nausea, vomiting, or diarrhea and +abdominal pain : No history of dysuria, frequency or incontinence MUSCULOSKELETAL: Negative for joint pain or swelling, back pain or muscle pain SKIN: Negative for lesions, rash, and itching PSYCH: Negative for sleep disturbance, mood disorder and recent psychosocial stressors HEMATOLOGY/LYMPHOLOGY: Negative for prolonged bleeding, bruising easily or swollen nodes ENDOCRINE: Negative for cold or heat intolerance, polyuria, polydipsia and goiter NEURO: Migraine headaches PHYSICAL EXAM: BP 127/91 Pulse 93 Ht 157.5 cm (5' 2 ) Wt 80.5 kg (177 lb 7.5 oz) SpO2 99% BMI 32.46 kg/m Body mass index is 32.46 kg/m . GENERAL: Healthy, alert, no distress, cooperative SKIN: Skin color, texture, turgor normal. No rashes or lesions. HEAD/SINUSES: No significant findings EYES: EOMI NECK: Supple ABDOMEN: soft, mild TTP RLQ without rebound or guarding. EXTREMITIES: No ulcers NEURO: Grossly normal cognition, motor function Diagnostic tests reviewed for today's visit: Most recent imaging outside records from [facility] reviewed, including recent CT and XR. Records scanned into her chart. Office visit note from Dr. Duran 10/06/23 also reviewed. SIGNATURE: Joslyn Velez RN PATIENT NAME: Karolina Nicole DATE: October 08, 2023 TIME: 2:20 PM Paula Geller DO documented in this encounterA[facility]24 NoteHNO ID: [id number] Author: KATLIN WELLS RT(R) Service: ? Author Type: Technologist Type: Progress Notes Filed: 09/29/2023 12:07 Note Text: Radiology Service Progress Note PATIENT NAME: Karolina Nicole DATE OF SERVICE: September 29, 2023 TIME: 12:05 PM PATIENT IDENTITY VERIFICATION COMPLETED USING TWO (2) IDENTIFIERS: Name and Date of confirmed by patient verbally. FALL SCREENING: Has the patient had 2 falls in the last year or 1 fall with injury or currently using an Ambulatory Assistive Device (Walker, Cane, Wheelchair, Crutches, etc.)? No PATIENT GENDER DATA: Female. status: : No status: NO. PATIENT RELEVANT IMPLANT DATA REVIEWED: Yes PATIENT PRESENTS WITH AN IMPLANTABLE OR ATTACHED REGRINDER OPERATOR: No RADIOLOGY DEPARTMENT: General X-ray: Exam(s) Completed: Pelvis X-Ray: sacroiliac joints PERIPHERAL IV DATA: Not applicable SIGNED BY: RT Raoul(R) September 29, 2023 12:05 [facility]05-21-2024 History of Present illness Narrative* Katlin Wells RT(R) - 09/29/2023 12:05 PM EDT Radiology Service Progress Note PATIENT NAME: Karolina Nicole DATE OF SERVICE: September 29, 2023 TIME: 12:05 PM PATIENT IDENTITY VERIFICATION COMPLETED USING TWO (2) IDENTIFIERS: Name and Date of confirmedby patient verbally. FALL SCREENING: Has the patient had 2 falls in the last year or 1 fall with injury or currently using an Ambulatory Assistive Device (Walker, Cane, Wheelchair, Crutches, etc.)? No PATIENT GENDER DATA: Female. status: : No status: NO. PATIENT RELEVANT IMPLANT DATA REVIEWED: Yes PATIENT PRESENTS WITH AN IMPLANTABLE OR ATTACHED REGRINDER OPERATOR: No RADIOLOGY DEPARTMENT: General X-ray: Exam(s) Completed: Pelvis X-Ray: sacroiliac joints PERIPHERAL IV DATA: Not applicable SIGNED BY: RT Raoul(Ziyad) September 29, 2023 12:05 PM documented in this encounterA[facility] History of Present illness Narrative* Alem Cuadra MD - 09/29/2023 11:00 AM EDT Images from the original note were not included. Rheumatology Outpatient Clinic Date of Service: 09/29/2023 Patient: Karolina Nicole Medical Record: [id number] Primary Care Physician: No primary care provider on file. Referring Provider: SELF Last Rheumatology visit: None at [facility] Chief complaint: New Patient (Joint swelling, couple years. Lost eye vision in 2021, came back though. Throat swelling and blisters in her mouth. Body weakness. Pt said since apr she was sick 4 times. Had covid, strep, some stomach bug. Prednisone is the only thing that ever works for her. Pt was at ER for neck stifffness. Pt has hand swelling sometimes. Had hard time grabbing things. Pt had blood work done, CRP and Sed rate was high. Pt's mom has RA and fibromyalgia. Grandma had autoimmune. Liver was enlarged. Patient does not know) Self Consultation requested for an opinion regarding joint pain, swelling, fever. 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 Lost eye vision in 2021, came back though. Throat swelling and blisters in her mouth. Body weakness. Pt said since apr she was sick 4 times. Had covid, strep, some stomach bug. Prednisone is the only thing that ever works for her. Pt was at ER for neck stifffness. Pt has hand swelling sometimes. Had hard time grabbing things. Pt had blood work done, CRP and Sed rate was high. Pt's mom has RA and fibromyalgia. Grandma had autoimmune. Liver was enlarged. Patient does not know). Karolina is RF negative - 9 (09/29/2023). HISTORY OF PRESENT ILLNESS Patient reports multiple joint pain including bilateral hips, knees, hands, neck, low back for manyyears, did PT, told to have degenerative arthritis and chronic pain. Physical therapy does not help with the pain She also reports that her skin is tender to touch, even massage hurts Pain is worse in am and worse with activities She reports mild swelling in her whole hands which is constant with intermittent worsening of swelling along with whole body swelling and whole body pain on and off, almost once every 6 months. 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 She reports that optic neuritis was ruled out, denies any history of uveitis or iritis She had MRI, LP, ruled out MS, Diamox has been recommended for intracranial hypertension She reports being sick 4 times since apr 2023- had coivd, strep, stomach flu Mid August 2023-she had whole body pain associated with fever, had Blisters in the mouth, she went to ER, had infectious workup done including blood culture which was negative, she was discharged home Later she also started having neck stiffness, she went back to ER, had lumbar puncture and meningitis was ruled out. She was given prednisone for 5 days that helped with her whole body swelling but not with the pain. 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 Previous workups reviewed in patient's phone 08/2023 Sed rate 30 CRP 7.6 CSF cell count 2, protein 44 CT C spine- mild degenerative changes CXR- unremarkable XR bilateral hands 11/2022- unremarkable CT facial bone 06/2023- 1. No acute facial fracture. 2. Mild paranasal sinus disease with small left mastoid effusion. Patient-Entered Data PAIN EVALUATION 09/27/20232046 Pain Level: 6 Pain Location: Other: See Comment Description: Aching;Spasm;Stiffness;Tingling Duration Amount of Time: 7 Duration Units: Days Frequency: Continuous Intervention/Comfort measure: Reposition;Positioning Comments: I normally have chronic pain it hurts to be rubbed or massaged. When i have flate ups of whatever is hoing on with me my whole body hurts PROMIS Assessments 09/27/2023 PROMIS Assessments Physical Health Percentile 10 Mental Health Percentile 34 Pain Score 3 Pain Interference Percentile 21 Fatigue Percentile 18 Physical Function Percentile 16 RAPID 3 Long Activities of Daily Living 09/27/2023 8:52 PM Dress self? Without ANY difficulty Get in and out of bed? Without ANY difficulty Walk outdoors? Without ANY difficulty Wash and dry body? Without ANY difficulty Get in and out of car? Without ANY difficulty RAPID 3 Disease Activity Weighed Score Levels: 0 - 1: Near Remission 1.3 - 2.0: Low Severity 2.3 - 4.0: Moderate Severity 4.3 - 10.0: High Severity 09/27/2023 RAPID-3 Weighed Score RAPID 3 Weighed Score 4.67 (High severity ) Review of Systems Review of Systems CONSTITUTION: Negative for: Fever and Recent weight change HEENT: Positive for: Mouth sores and Trouble swallowing Negative for: Nosebleeds and Dry mouth RESPIRATORY: Negative for: Cough, Shortness of breath and Pain with breathing GASTROINTESTINAL: Negative for: Melena, Diarrhea, Heartburn and Abdominal pain MUSCULOSKELETAL: Positive for: Arthralgias, Myalgias, Muscle weakness, Joint swelling and Morning Joint Stiffness NEUROLOGICAL: Positive for: Numbness and Memory loss Negative for: Headaches SKIN: Negative for: Rash, Skin changes, Hair loss and Nail changes EYES: Positive for: Visual disturbance Negative for: Eye pain, Eye redness and Eye dryness CARDIOVASCULAR: Positive for: Leg swelling Negative for: Chest pain GENITOURINARY: Negative for: Dysuria and Hematuria HEMATOLOGIC/LYMPHATIC: Positive for: Swollen glands Palpable cervical only during the flares Raynaud's: Denies Sicca: Dry eyes sometimes Past Medical History No past medical history on file. Past Surgical History No past surgical history on file. Allergy ALLERGIES Allergen Reactions Latex Rash Nickel Rash Oxycodone Rash Silk Other: See Comments Silk tape Sulfadiazine Rash Family History Aunt being worked up for SLE, grandmother had SLE, mother- RA/fibromyalgia, sister has RA The patient denies family history of Sarcoidosis, Scleroderma, IBD or Psoriasis. No family history on file. Social History Social History Tobacco Use Smoking status: Every Day Packs/day: .5 Types: Cigarettes Tobacco comments: 1 pack every 2 days Substance Use Topics Alcohol use: Not Currently Drug use: Not Currently Current Medications Current Outpatient Medications Medication Sig melatonin/thean/lemon/david/lav (SLEEP CALM ORAL) Take by mouth. THC oral gummies. Cetirizine 10 mg cap mv,calcium,min/iron/folic/vitK (MULTI FOR HER ORAL) PREMARIN 0.45 mg tablet montelukast (SINGULAIR) 10 mg tablet Montelukast Active 10 MG PO Daily March 24, 2021 12:00am hydrOXYzine HCl (ATARAX) 25 mg tablet Current Facility-Administered Medications Medication Dose Route Frequency perflutren lipid microspheres 1.3 mL in NaCl (PF) 0.9% 10 mL injection (DEFINITY) INTRAVENOUS DIRECTED PRN sodium chloride 0.9 % (flush) 10 mL (BD POSIFLUSH) 10 mL INTRAVENOUS DIRECTED PRN Labs Latest Ref Rng & Units 09/29/2023 CBC WBC 3.70 - 11.00 k/uL 7.43 Hemoglobin 11.5 - 15.5 g/dL 13.4 Hematocrit 36.0 - 46.0 % 38.4 Platelet Count 150 - 400 k/uL 316 Abs Neut (ANC) 1.45 - 7.50 k/uL 3.74 Abs Lymph 1.00 - 4.00 k/uL 3.08 Latest Ref Rng & Units 09/29/2023 CMP Sodium 136 - 144 mmol/L 140 Potassium 3.7 - 5.1 mmol/L 4.0 Chloride 97 - 105 mmol/L 104 CO2 22 - 30 mmol/L 24 Glucose 74 - 99 mg/dL 94 BUN 7 - 21 mg/dL 12 Creatinine 0.58 - 0.96 mg/dL 0.91 Calcium 8.5 - 10.2 mg/dL 9.6 AST 13 - 35 U/L 31 ALT 7 - 38 U/L 22 Alkaline Phosphatase 34 - 123 U/L 65 Latest Ref Rng & Units 09/29/2023 ESR, WSR WSR 0 - 20 mm/hr 9 Latest Ref Rng & Units 09/29/2023 CRP CRP <0.9 mg/dL <0.3 Latest Ref Rng & Units 09/29/2023 C3, C4 C3 86 - 166 mg/dL 137 C4 13 - 46 mg/dL 23 Latest Ref Rng & Units 09/29/2023 CK CK 42 - 196 U/L 116 Latest Ref Rng & Units 09/29/2023 RF and CCP Rheumatoid Factor <16 IU/mL <10 Latest Ref Rng & Units 09/29/2023 Antibodies PT Sec 9.7 - 13.0 sec 11.1 PT INR 0.9 - 1.3 1.0 APTT 23.0 - 32.4 sec 28.2 Latest Ref Rng & Units 09/29/2023 Urinalysis Protein, Urine Negative Negative RBC, Urine 0-2 /HPF 0-2 /HPF Protein/Creat Ratio <0.15 mg/mg 0.18 Imaging Last XR Hand/Finger - Impression Only No resulted procedures found. Last MRI Hand - Impression Only No resulted procedures found. Last XR Chest - Impression Only No resulted procedures found. Last XR Cervical Spine - Impression Only No resulted procedures found. Health Maintenance Current Immunizations Never Reviewed No immunizations on file. Physical Exam VITAL SIGNS: BP 121/77 Pulse 82 Wt 178 lb 5.6 oz (80.9kg) GENERAL APPEARANCE: Well groomed. In no distress. SKIN: No rash, thickening, nodules, calcifications, discoloration. EYES: PERRL, EOMI HENT: Normal external examination of the ears and nose, lips, oropharynx and tongue. No oropharyngeal lesions, exudate, or sores. NECK: No mass or asymmetry, no lymphadenopathy. RESPIRATORY: Normal respiratory effort. Clear to auscultation, no wheeze. CARDIOVASCULAR: regular, normal rate, normal heart sounds, no murmur or rub ABDOMEN: BS normal. No bruits, No tenderness, NEUROLOGIC: Alert and oriented x 3. Motor exam: Normal muscle strength grossly. Normal bulk and tone. MUSCULOSKELETAL EXAMINATION: Soft tissue tender points: bilateral scapular blades, neck, arms, forearms Upper extremities: Shoulders: Full ROM in all directions, no tenderness to palpation. No swelling or effusion. Elbows: Full ROM in flexion and extension. No swelling or effusion. No tenderness to palpation to the joint line, olecranon, medial or lateral epicondyles. Wrists: Full ROM in all lugo. No swelling or synovitis. tenderness to palpation Hands: Full ROM in flexion and extension. No swelling or synovitis along the MCPs, PIPs, and DIPs. tenderness along the MCPs, Lower extremities: Knees: No swelling or effusion. No tenderness to palpation. Ankles: Full ROM in all lugo. No swelling or effusion. No tenderness to palpation Feet: No tenderness to palpation. No evidence of MTP swelling. Diagnoses: (M25.50) Polyarthralgia (primary encounter diagnosis) (R79.82) Elevated C-reactive protein (CRP) Impression and Plan 1. Polyarthralgia Patient with multiple joint pains episodic whole-body pain with whole body swelling along with fatigue, brain fog No synovitis on exam however has multiple soft tissue and joint tenderness Noted mildly elevated sed rate and CRP in the setting of fever She does report that her whole body swelling went down with prednisone for 5 days did not help muchwith the pain Noted unremarkable radiograph of bilateral hands in 11/2022 To further evaluate for inflammatory arthritis I will repeat sed rate, CRP. Obtain CBC, CMP, MOOK, anti-CISCO, dsDNA, RF, CCP, CK, Due to history of 3 early miscarriages and idiopathic intracranial hypertension, I will obtain antiphospholipid antibodies Obtain radiograph SI joint to evaluate for spondyloarthritis Fever with cervical lymphadenopathy, oral ulcers, polyarthralgia does raise concern for PFAPA, however these episodes with fever and oral ulcers has happened only once, also PFAPA would be unusual atthis age Other differentials include palindromic rheumatism with intermittent joint pain and swelling Widespread joint and muscle pain with widespread tenderness and family history of chronic pain syndrome does raise concern for chronic pain syndrome, if above tests unremarkable, recommend referral to chronic pain specialist 2. Healthcare maintenance/Malignancy screening Defer to PCP Orders this visit: Office Visit on 09/29/23 XR SACROILIAC JOINTS 2V AP PELVIS/FERGUESON CCP ANTIBODY IGG RHEUMATOID FACTOR COMPLETE BLOOD COUNT AND DIFFERENTIAL C3 COMPLEMENT C4 COMPLEMENT CREATINE KINASE/CK COMPREHENSIVE METABOLIC PANEL C-REACTIVE PROTEIN SEDIMENTATION RATE, WESTERGREN URINALYSIS, WITH MICROSCOPIC MOOK BY IFA SCREEN ANTI CISCO ID DNA AB DS + CONF BLD LUPUS ANTICOAG PL PROTEIN ELECTROPHORESIS SERUM W/INTERP PROTEIN / CREATININE RATIO melatonin/thean/lemon/david/lav (SLEEP CALM ORAL) Return in about 13 days (around 10/12/2023) for virtual. I spent a total of 60 minutes on the date of the service which included preparing to see the patient, [id number] patient care, completing clinical documentation, obtaining and/or reviewing separately obtained history, performing a medically appropriate examination, counseling and educating the pat ient/family/caregiver, and ordering medications, tests, or procedures. This note was partially generated with the assistance of [employer] voice recognition software. An attempt was made to correct any dictation errors however there may be some incorrect words, spellings, and punctuation. Alem Cuadra MD, [facility] Rheumatology documented in this encounterAcmc [facility]24 NoteHNO ID: [id number] Author: ALEM CUADRA MD Service: ? Author Type: Physician Type: Progress Notes Filed: 09/29/2023 21:52 Note Text: Rheumatology Outpatient Clinic Date of Service: 09/29/2023 Patient: Karolina Nicole Medical Record: [id number] Primary Care Physician: No primary care provider on file. Referring Provider: SELF Last Rheumatology visit: None at [facility] Chief complaint: New Patient (Joint swelling, couple years. Lost eye vision in 2021, came back though. Throat swelling and blisters in her mouth. Body weakness. Pt said since apr she was sick 4 times. Had covid, strep, some stomach bug. Prednisone is the only thing that ever works for her. Pt was at ER for neck stifffness. Pt has hand swelling sometimes. Had hard time grabbing things. Pt had blood work done, CRP and Sed rate was high. Pt's mom has RA and fibromyalgia. Grandma had autoimmune. Liver was enlarged. Patient does not know) Self Consultation requested for an opinion regarding joint pain, swelling, fever. 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 Lost eye vision in 2021, came back though. Throat swelling and blisters in her mouth. Body weakness. Pt said since apr she was sick 4 times. Had covid, strep, some stomach bug. Prednisone is the only thing that ever works for her. Pt was at ER for neck stifffness. Pt has hand swelling sometimes. Had hard time grabbing things. Pt had blood work done, CRP and Sed rate was high. Pt's mom has RA and fibromyalgia. Grandma had autoimmune. Liver was enlarged. Patient does not know). Karolina is RF negative - 9 (09/29/2023). HISTORY OF PRESENT ILLNESS Patient reports multiple joint pain including bilateral hips, knees, hands, neck, low back for many years, did PT, told to have degenerative arthritis and chronic pain. Physical therapy does not help with the pain She also reports that her skin is tender to touch, even massage hurts Pain is worse in am and worse with activities She reports mild swelling in her whole hands which is constant with intermittent worsening of swelling along with whole body swelling and whole body pain on and off, almost once every 6 months. 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 She reports that optic neuritis was ruled out, denies any history of uveitis or iritis She had MRI, LP, ruled out MS, Diamox has been recommended for intracranial hypertension She reports being sick 4 times since apr 2023- had coivd, strep, stomach flu Mid August 2023-she had whole body pain associated with fever, had Blisters in the mouth, she went to ER, had infectious workup done including blood culture which was negative, she was discharged home Later she also started having neck stiffness, she went back to ER, had lumbar puncture and meningitis was ruled out. She was given prednisone for 5 days that helped with her whole body swelling but not with the pain. 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 Previous workups reviewed in patient's phone 08/2023 Sed rate 30 CRP 7.6 CSF cell count 2, protein 44 CT C spine- mild degenerative changes CXR- unremarkable XR bilateral hands 11/2022- unremarkable CT facial bone 06/2023- 1. No acute facial fracture. 2. Mild paranasal sinus disease with small left mastoid effusion. Patient-Entered Data PAIN EVALUATION 09/27/20232046 Pain Level: 6 Pain Location: Other: See Comment Description: Aching;Spasm;Stiffness;Tingling Duration Amount of Time: 7 Duration Units: Days Frequency: Continuous Intervention/Comfort measure: Reposition;Positioning Comments: I normally have chronic pain it hurts to be rubbed or massaged. When i have flate ups of whatever is hoing on with me my whole body hurts PROMIS Assessments 09/27/2023 PROMIS Assessments Physical Health Percentile 10 Mental Health Percentile 34 Pain Score 3 Pain Interference Percentile 21 Fatigue Percentile 18 Physical Function Percentile 16 RAPID 3 Long Activities of Daily Living 09/27/2023 8:52 PM Dress self? Without ANY difficulty Get in and out of bed? Without ANY difficulty Walk outdoors? Without ANY difficulty Wash and dry body? Without (more content not included)...[facility]04-16-2024 Miscellaneous Notes* Telephone Encounter - Jayden, Charlotte, RN - 08/25/2023 8:02 AM EDT Reason for call: multiple symptoms; new symptom is neck swelling Outcome: patient will call her PCP locally for an appointment today. In addition, she would like tosee a lacquer coater at [facility]. Conferenced to the Appointment Center for scheduling. Reason for Disposition [1] Single large node AND [2] size > 1 inch (2.5 cm) AND [3] no fever Answer Assessment - Initial Assessment Questions 1. LOCATION: entire neck is swollen, looks like she has a double chin 2. SIZE: large, but patient is unable to determine size 3. ONSET: yesterday 4. NECK NODES: tender; some discomfort when swallowing 6. FEVER: no fever today. She had a fever up to 103 F over the weekend, was seen at local ER 7. CAUSE: patient is concerned about an autoimmune issue, since she has been having unusual symptoms for the past 3 years 8. OTHER SYMPTOMS: include transient limb weakness, loss of vision in one eye, tingling down legs, intermittent swelling in different areas, fevers. Protocols used: Lymph Nodes - [id number] documented in this encounterA[facility] Hospital Discharge instructions* Discharge Instructions* Chance Vera MD - 07/09/2023 6:46 PM EST Headache Instructions: Return to the ED if your headache worsens, you develop weakness or numbness on one side of the body or the other, you develop blurred vision or difficulty with speech Procedures done during this visit: None * Attachments The following attachments cannot be sent through Care Everywhere. * Managing acute pain at home (Persian) documented in this encounterTHE [facility] SYSTEM Work Phone: [phone] 441-936002-29-2024 NotePhysician Triage Note The patient was seen by me in intake for a brief history and physical obtained for triage reasons only. My exam is intended to be an initial medical screening exam for disposition within our ED with limited initial orders placed, when appropriate, to expedite care by the treating team. HIPAA: Verbal permission granted from patient to discuss case, including protected health information, in front of family / friends in room at the time of the evaluation. Patient complains of sent from dental for CT of jaw. Focused Exam: NAD The patient is deemed appropriate for west. Initial orders: piv bmp. The remainder of testing, treatment, and diagnostic plan will be assumed by the next clinician who will be seeing the patient as a primary patient, creating a plan and impression, and final disposition of the patient from the ED. I had a limited role in this case. PLEASE SEE OTHER ATTENDING/RESIDENT/PHYSICIAN/BARGE HAND/PA NOTATION [facility] note* Encounter Date Diagnosis Assessment Notes Treatment Notes Treatment Clinical Notes May, Bronchitis (ICD-10 - J40) Abx and steroid as directed with food. Pt is to use inhaler and nebulizer as previously prescribed prn for cough and wheeze. Supportive care as directed. Push fluids and rest. Pt denied work note today. Pt is to take otc antipyretic prn for fever and aches. Pt is to take rx cough suppressant prn for cough. Pt is to be re-evaluated after tx if sx worsen or don't improve by pcp or UC. Discussed sx of resp distress - wheeze, sob, difficulty breathing and swallowing, chest tightness, or chest pain. Pt is to f/u immediately in ER if these sx present. Pt is to call the office with any questions or concerns regarding dx and tx. Pt understood and agreed to tx plan. [employer] Other 08-04-2023 Evaluation note* Encounter Date Diagnosis Assessment Notes Treatment Notes Treatment Clinical Notes Dec, Abnormality of left breast on screening mammogram (ICD-10 - R92.8) [employer] Other 07-20-2023 Evaluation note* Encounter Date Diagnosis Assessment Notes Treatment Notes Treatment Clinical Notes Nov, High C-reactive protein (ICD-10 - R79.82) Nov, High serum sodium (ICD-10 - R79.89) Nov, Polyarthralgia (ICD-10 - M25.50) [employer] Other 05-02-2023 Evaluation note* Encounter Date Diagnosis Assessment Notes Treatment Notes Treatment Clinical Notes September, Mild intermittent asthma without complication (ICD-10 - J45.20) [employer] Other 03-29-2023 Evaluation note* Encounter Date Diagnosis Assessment Notes Treatment Notes Treatment Clinical Notes Jul, Acute cystitis with hematuria (ICD-10 - N30.01) No UTI symptoms. Feels completely resolved. Urine dip in the office continues to show trace blood. She does have history of kidney stones when she was younger. No longer has periods due to hysterectomy. Since she is feeling good, she would like to hold off on any further work up regarding trace hematuria in urine dip today. She will notify the office should she change her mind with this. Jul, Electrocardiogram showing T wave abnormalities (ICD-10 - R94.31) She will continue to follow with cardiology. Specialty notes reviewed as received. [employer] Other 03-10-2023 Evaluation note* Encounter Date Diagnosis Assessment Notes Treatment Notes Treatment Clinical Notes Jul, Dysuria (ICD-10 - R30.0) [employer] Other 03-10-2023 History of Present illness Narrative* Derrell Phipps MD - 07/18/2022 11:01 AM EST Images from the original note were not included. [facility] [place] [facility] Department of Cardiovascular Medicine SECTION OF REGIONAL CARDIOLOGY OUTPATIENT VISIT DATE July 18, 2022 OUTPATIENT VISIT TYPE NEW CONSULTATION CHIEF COMPLAINT: Chest pain HISTORY OF PRESENT ILLNESS: Ms. Smalls is a pleasant 36 year old female here for cardiovascular evaluation. She is a recovered alcohol and drug user. In June she had an episode of severe chest pain. Prior to this she had some pain over her left breast and she was sent for a Mammo which was negative. On Jun 26 she got really short of breath and some chest pain that radiated down the left arm. She went to her PCP and she had an EKG done and she was sent to the ED. They ruled out an AK and they discharged her home. Sheunderwent a what sounds like a exercise only stress which she was told was unremarkable. But she was told to see us here. She had an episode of chest pain a couple of days. She finds that when she takes a deep breath in it goes away. Maternal GF with CAD and PAD and some other distant relatives with heart disease. The following portions of the patient's history were reviewed and updated as appropriate, allergies, current medications, past medical, social, surgical, and family history and problem list. No past medical history on file. No past surgical history on file. No family history on file. ALLERGIES Not on File CURRENT MEDICATIONS: No prescriptions on file. I have personally interviewed, confirmed and edited the above information if obtained by others. Physical Exam Gen: alert, no acute distress HEENT: normocephalic, atraumatic, no rinorrhea, no congestion, normal hearing, EOMI, no eye discharge Heart: no murmurs, S1/S2+, regular rate and rhythm Lungs: no wheezing, no rales, symmetric expansion, nonlabored Abdomen: soft, nontender, nondistended Musculoskeletal: no edema, nontender Neurological: no focal deficits, alert, oriented Psychatric: cooperative, appropriate Pertinent Diagnostics/Labs/Data reviewed (ECGs and echo listed personally reviewed today or prior) and include: Assessment & Plan Atypical Chest Pain Impression: This is a 36 yo female with a PMHx of previous alcohol and drug use and no other cardiac Hx. She has been having some chest pain and pressure. She is presenting to the clinic for a second opinion. EKG showed NSR with RsR' and some TWI in the anteroseptal leads. Plan: - Vitals: BP 110/78 and a HR of 70. - Awaiting results of the EKG stress test from [facility] - spoke about all the stress in her life currently - Will be trying to reduce some of that for now - Will order an echocardiogram for now. - Will order a lipid panel to be done prior to her next visit. No current outpatient medications on file prior to visit. No current facility-administered medications on file prior to visit. Return in 3 months with communication in between if symptoms or changes occur. Thank you, CONTACT INFORMATION: Derrell Phipps MD Cardiovascular Medicine Staff [facility] [id number] [place] [address]. [place] [address] documented in this encounterAcmc [facility]03-09-[facility]23 Evaluation note* Encounter Date Diagnosis Assessment Notes Treatment Notes Treatment Clinical Notes Jul, Mixed hyperlipidemia (ICD-10 - E78.2) Jul, Obesity (BMI 30.0-34.9) (ICD-10 - E66.9) Jul, Impaired fasting glucose (ICD-10 - R73.01) Jul, Fatty liver (ICD-10 - K76.0) Jul, Asthma (ICD-10 - J45.909) Jul, Anxiety (ICD-10 - F41.9) Jul, ADHD (ICD-10 - F90.9) Jul, Low back pain (ICD-1 0 - M54.5) Jul, Metabolic syndrome X (ICD-10 - E88.81) [employer] Other 02-28-2023 Evaluation note* Encounter Date Diagnosis Assessment Notes Treatment Notes Treatment Clinical Notes Jun, Acute cystitis with hematuria (ICD-10 - N30.01) [employer] Other 02-27-2023 Evaluation note* Encounter Date Diagnosis Assessment Notes Treatment Notes Treatment Clinical Notes Jun, Dysuria (ICD-10 - R30.0) [employer] Other 02-20-2023 Evaluation note* Encounter Date Diagnosis Assessment Notes Treatment Notes Treatment Clinical Notes Jun, Nonspecific ST-T wav e electrocardiographic changes (ICD-10 - R94.31) [employer] Other 02-16-2023 Evaluation note* Encounter Date Diagnosis Assessment Notes Treatment Notes Treatment Clinical Notes Jun, Chest pain, unspecif ied type (ICD-10 - R07.9) Patient presents today for an urgent visit with our office. She presents with severe chest pain for the last hour-hour and a half. Radiates into left neck and down left arm. Arm feels tight like a squeezing. These episodes have been coming and going for awhile. EKG in the office does show ST-T wave changes possibly due to myocardial ischemia. She has a past history of IV drug addiction but has been clean for 5 years. Due to EKG changes and patient chest pain, she is referred to the ER. She declines squad and called a friend to take her right over. She is put in a wheelchair and wheeled out to her friend's vehicle. She will take her immediately to the ER. Copies of EKGs done in the office are sent with her today. Report called to [facility] ER Dr. Curt Novoa. Will have patient follow back in the office after ER/hospital visit. Jun, ST segment changes o n electrocardiogram (ICD-10 - R94.31) See above treatment plan. [employer] Other 01-30-2023 Evaluation note* Encounter Date Diagnosis Assessment Notes Treatment Notes Treatment Clinical Notes May, Breast pain, left (ICD-10 - N64.4) Bilateral breast exam normal. She has been having intermittent shooting pains to her left breast that come and go. No other associated symptoms. No chest pain. No shortness of breath. Will obtain diagnostic mammogram with US to further evaluate. Further treatment pending results of testing. [employer] Other 01-09-2023 Evaluation note* Encounter Date Diagnosis Assessment Notes Treatment Notes Treatment Clinical Notes May, Mixed hyperlipidemia (ICD-10 - E78.2) May, Obesity (BMI 30.0-34.9) (ICD-10 - E66.9) May, Impaired fasting glucose (ICD-10 - R73.01) May, Fatty liver (ICD-10 - K76.0) May, Asthma (ICD-10 - J45.909) May, Anxiety (ICD-10 - F41.9) May, ADHD (ICD-10 - F90.9) May, Low back pain (ICD-1 0 - M54.5) May, Metabolic syndrome X (ICD-10 - E88.81) [employer] Other 12-19-2022 Evaluation note* Encounter Date Diagnosis Assessment Notes Treatment Notes Treatment Clinical Notes Apr, Sore throat (ICD-10 - J02.9) Strep throat negative. Influenza A/B negative, COVID negative. See above treatment plan. Apr, Viral illness (ICD-10 - B34.9) Strep throat negative. Influenza A/B negative, COVID negative. Discussed diagnosis with patient. Discussed with patient that symptoms are most likely viral at this time. No ATB needed at this time. OTC Ibuprofen/Tylenol PRN fever or general discomfort. OTC sore throat sprays or throat lozenges PRN. Notify office should symptoms persist and not improve. Discussed warning s/s with patient. If patient experiences any warning s/s, patient is immediately to go to the ER. Patient verbalizes understanding and agrees to treatment plan. [employer] Other 12-14-2022 Evaluation note* Encounter Date Diagnosis Assessment Notes Treatment Notes Treatment Clinical Notes Apr, Lumbar degenerative disc disease (ICD-10 - M51.36) No warning s/s present. Does have a flare up in what sounds like her lumbar DDD and SI joint pain bilaterally. Will treat with burst of steroids. No other NSAIDS with prednisone. Medication profile and possible SE reviewed with patient. Take as directed. Will obtain xray as well. She previously followed with Dr Croft with pain management but would like to hold off on this right now. She declines PT at this time as well. She will notify the office should her symptoms worsen or not improve. Warning s/s reviewed with patient today. Patient to go immediately to the ER should pt experience any of these. Patient verbalizes understanding and agrees to treatment plan. [employer] Other 12-05-2022 Evaluation note* Encounter Date Diagnosis Assessment Notes Treatment Notes Treatment Clinical Notes Apr, Mild intermittent asthma without complication (ICD-10 - J45.20) [employer] Other 11-29-2022 Evaluation note* Encounter Date Diagnosis Assessment Notes Treatment Notes Treatment Clinical Notes Mar, Mild intermittent asthma without complication (ICD-10 - J45.20) [employer] Other 11-02-2022 Evaluation note* Encounter Date Diagnosis Assessment Notes Treatment Notes Treatment Clinical Notes Mar, Anxiety (ICD-10 - F41.9) [employer] Other 10-06-2022 Evaluation note* Encounter Date Diagnosis Assessment Notes Treatment Notes Treatment Clinical Notes Feb, Strep throat (ICD-10 - J02.0) Strep test positive. Take rx-Augmentin (treat her OM and strep throat both) as directed with food. Finish entire course of ATB. Continue symptomatic tx with OTC meds prn. Push fluids/rest. Reinforced good hand hygiene for infection control. New toothbrush or wash toothbrush in cash on delivery clerk. Immediate eval if warning s/s. Warning s/s discussed with patient. Notify office if symptoms persist and do not improve. Pt verbalizes understanding and agrees with tx plan. Feb, Acute otitis media, unspecified otitis media type (ICD-10 - H66.90) Discussed diagnosis with patient. Take ATB as directed with food. Complete full course of ATB, even if asymptomatic. OTC decongestants, throat lozenges/sprays, antipyretics prn. Push rest/fluids. Reinforced good hand hygiene for infection control. Notify office should symptoms not improve or persist. Immediate eval in ER if warning s/s. Pt agrees with plan of care and verbalizes understanding of teaching points and instructions. Feb, Sore throat (ICD-10 - J02.9) Strep test positive. See above treatment plan. [employer] Other 09-08-2022 Evaluation note* Encounter Date Diagnosis Assessment Notes Treatment Notes Treatment Clinical Notes Jan, Intracranial hypotension (ICD-10 - G96.810) Recent MRI done by biometrics specialist shows intracranial hypotension. Symptoms seem to have remained stable and are not worsening, but she does need to follow up with neuorology as soon as possible. Discussed this with her and she is in agreement. Stat referral sent today. Referral notes will be reviewed as they are received. Warning s/s reviewed with patient today. Patient to go immediately to the ER should pt experience any of these. Patient verbalizes understanding and agrees to treatment plan. [employer] Other 08-24-2022 Evaluation note* Encounter Date Diagnosis Assessment Notes Treatment Notes Treatment Clinical Notes Dec, Mixed hyperlipidemia (ICD-10 - E78.2) Dec, Obesity (BMI 30.0-34.9) (ICD-10 - E66.9) Dec, Impaired fasting glucose (ICD-10 - R73.01) Dec, Fatty liver (ICD-10 - K76.0) Dec, Asthma (ICD-10 - J45.909) Dec, Anxiety (ICD-10 - F41.9) Dec, ADHD (ICD-10 - F90.9) Dec, Low back pain (ICD-1 0 - M54.5) Dec, Metabolic syndrome X (ICD-10 - E88.81) [employer] Other 07-14-2022 Evaluation note* Encounter Date Diagnosis Assessment Notes Treatment Notes Treatment Clinical Notes Nov, Anxiety (ICD-10 - F41.9) [employer] Other 07-12-2022 Evaluation note* Encounter Date Diagnosis Assessment Notes Treatment Notes Treatment Clinical Notes Nov, Bronchitis (ICD-10 - J40) 36 y.o. female seen today for > 4 weeks sympotms of productive cough, chest tightness, and sore throat. Pt has hx of asthma and significant allergies that she is managed well with medications. D/T her history and lingering symptoms of productive cough with mild rhonchi, SOB will start Zithromycin 250mg orally for 5 days with two tabs the first day, along with prednisone pack of 10mg orally 6 tabs day 1, 5 tabs day 2, 4 tabs day 3, 3 tabs day 4, 2 tabs day 5, and 1 tab day 6. Start Mucinex DM 30-600mg orally BID for productive cough. Advised to use albuterol inhaler as needed for SOB and she states she has one. Advised to continue Montelukast Sodium and Cetirizine. Advised to increase hydration while taking these medications and to complete them. She acknowledges understanding and agrees to treatment. [employer] Other 07-06-2022 Evaluation note* Encounter Date Diagnosis Assessment Notes Treatment Notes Treatment Clinical Notes Nov, Mixed hyperlipidemia (ICD-10 - E78.2) Nov, Obesity (BMI 30.0-34.9) (ICD-10 - E66.9) Nov, Impaired fasting glucose (ICD-10 - R73.01) Nov, Fatty liver (ICD-10 - K76.0) Nov, Asthma (ICD-10 - J45.909) Nov, Anxiety (ICD-10 - F41.9) Nov, ADHD (ICD-10 - F90.9) Nov, Low back pain (ICD-1 0 - M54.5) Nov, Metabolic syndrome X (ICD-10 - E88.81) [employer] Other 05-26-2022 Evaluation note* Encounter Date Diagnosis Assessment Notes Treatment Notes Treatment Clinical Notes September, Obesity, unspecified classification, unspecified obesity type, unspecified whether serious comorbidity present (ICD-10 - E66.9) September, BMI 34.0-34.9,adult (ICD-10 - Z68.34) September, Other Summary of Visi t: (A) Presentation of Plate Method discussed (B) Sample meal ideas reviewed (C) exercise recommendations reviewed Patient set the following goals: - patient set personal goal using given handout. [employer] Other 05-05-2022 Evaluation note* Encounter Date Diagnosis Assessment Notes Treatment Notes Treatment Clinical Notes September, Abnormal weight gain (ICD-10 - R63.5) September, Mixed hyperlipidemia (ICD-10 - E78.2) September, Impaired fasting glucose (ICD-10 - R73.01) September, Fatty liver (ICD-10 - K76.0) September, Asthma (ICD-10 - J45.909) September, Anxiety (ICD-10 - F41.9) September, ADHD (ICD-10 - F90.9) September, Low back pain (ICD-1 0 - M54.5) September, Metabolic syndrome X (ICD-10 - E88.81) September, Obesity (BMI 30.0-34.9) (ICD-10 - E66.9) [employer] Other 04-14-2022 Evaluation note* Encounter Date Diagnosis Assessment Notes Treatment Notes Treatment Clinical Notes Aug, Elevated fasting blood sugar (ICD-10 - R73.01) Hgba1c in the office today is normal. This was discussed with her while she was in the office today. [employer] Other 04-13-2022 Evaluation note* Encounter Date Diagnosis Assessment Notes Treatment Notes Treatment Clinical Notes Aug, Mixed hyperlipidemia (ICD-10 - E78.2) Routine lab work ordered today. Controls with diet and exercise. Patient is advised to work on healthy diet choices and appropriate servings, weight control, regular exercise as directed, reduced fat intake, and salt avoidance. Patient voiced understanding of this and agrees to this plan. Aug, Well adult exam (ICD-10 - Z00.00) Overall, doing very well. Routine lab work ordered. Follow with eye doctor and dentist. Patient is advised to work on healthy diet choices and appropriate servings, weight control, regular exercise as directed, reduced fat intake, and salt avoidance. Patient voiced understanding of this and agrees to this plan. Aug, Mild intermittent asthma without complication (ICD-10 - J45.20) Stable right now with Singulair 10 mg daily and Zyrtec 10 mg daily along with PRN Albuterol inhaler. Will continue this. Refill sent today. Aug, Obesity (BMI 30.0-34.9) (ICD-10 - E66.9) Referral to weight management sent today. Patient is advised to work on healthy diet choices and appropriate servings, weight control, regular exercise as directed, reduced fat intake, and salt avoidance. Patient voiced understanding of this and agrees to this plan. Aug, History of intravenous drug use in remission (ICD-10 - Z87.898) She has a history of IV drug abuse. She has been clean for 5 years. She is to have NO addictive medications prescribed to her. [employer] Other Evaluation noteNo InformationNort [employer] Other Evaluation noteNo assessment information available [facility] Work Phone: Evaluation note* Diagnosis Atypical chest pain- Primary Other chest pain documented in this encounter [facility] note* Diagnosis Onset Date Resolution Status Fever acute Neck pain acute Stiff neck acute [facility] Work Phone: Evaluation note* Diagnosis Polyarthralgia- Primary Pain in joint, multiple sites Elevated C-reactive protein (CRP) Polyarthralgia Pain in joint, multiple sites [facility] Diagnosis Polyarthralgia Pain in joint, multiple sites [facility] Diagnosis Onset Date Resolution Status Neck pain acute Stiff neck acute [facility] Work Phone: Evaluation note* Diagnosis RLQ abdominal pain- Primary Abdominal pain, right lower quadrant Metal foreign body in abdomen [facility] Diagnosis IIH (idiopathic intracranial hypertension)- Primary Benign intracranial hypertension Class 1 obesity due to excess calories with serious comorbidity and body mass index (BMI) of 32.0 to 32.9 in adult [facility] Diagnosis Polyarthralgia- Primary Pain in joint, multiple sites Chronic pain syndrome [facility]* Diagnosis IIH (idiopathic intracranial hypertension)- Primary Benign intracranial hypertension Accommodation spasm, bilateral Hyperopic astigmatism of both eyes [facility]* Diagnosis IIH (idiopathic intracranial hypertension) Benign intracranial hypertension Class 1 obesity due to excess calories with serious comorbidity and body mass index (BMI) of 32.0 to 32.9 in adult [facility] Diagnosis Onset Date Resolution Status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 December 23, 2023 End: December 23, 2023 Team Status: Active Member Role Status Dates Lisa Johns DNP Primary Care Provider Active Start: December 24, 2023 Sarita Infante Attending Provider Active Start: December 24, 2023 Team Status: Active Member Role Status Dates Lisa Johns DNP Primary Care Provider Active Team Status: Active Member Role Status Dates Lisa Johns DNP Primary Care Provider Active Start: September 28, 2023 Silvia Messer LPN Attending Provider Active S tart: September 28, 2023 Team Status: Inactive Member Role Status Dates Lisa oJhns DNP Primary Care Provider Active Start: October 04, 2023 End: October 04, 2023 Carissa Mejia APRN Emergency Provider Active Start: October 04, 2023 End: October 04, 2023 Team Status: Active Member Role Status Dates Lisa Johns DNP Primary Care Provider Active Start: October 06, 2023 Susie Min LPN Attending Provider Active Sta rt: October 06, 2023 Team Status: Inactive Member Role Status Dates Lisa Johns DNP Primary Care Provider Active Pablo Phipps MD Attending Provider Active Team Status: Active Member Role Status Dates Lisa Johns DNP Primary Care Provider, Attending Provider Active Team Status: Inactive Member Role Status Dates Lisa Johns DNP Primary Care Provider Active Janina Soria DO Attending Provider Active Team Status: Inactive Member Role Status Dates Lisa Johns DNP Primary Care Provider Active Nikhil Cristina DO Emergency Provider Active Team Status: Inactive Member Role Status Dates Lisa Johns DNP Primary Care Provider, Attending Provider Active Brandon Wing MD Other Provider Active Team Status: Inactive Member Role Status Dates Lisa Johns DNP Primary Care Provider, Attending Provider Active Team Status: Inactive Member Role Status Dates Lisa Johns DNP Primary Care Provider Active Shahid Ritter MD Emergency Provider Active Team Status: Inactive Member Role Status Dates Lisa Johns DNP Primary Care Provider, Attending Provider Active Marcel Boo MD Referring Provider Active Team Status: Inactive Member Role Status Dates Lisa Johns DNP Attending Provider Active S tart: April 20, 2023 End: April 20, 2023 Team Status: Inactive Member Role Status Dates Lisa Johns DNP Primary Care Provider Active Start: May 06, 2023 End: May 06, 2023 Carissa Mejia APRN Emergency Provider Active Start: May 06, 2023 End: May 06, 2023 Team Status: Inactive Member Role Status Dates Edward Hernandez PA-C Attending Provider Active St art: May 14, 2023 End: May 14, 2023 Team Status: Inactive Member Role Status Dates Lisa Johns DNP Primary Care Provider Active Start: June 09, 2023 End: June 10, 2023 Nikhil Cristina DO Emergency Provider Active St art: June 09, 2023 End: June 10, 2023 Team Status: Inactive Member Role Status Dates Lisa Johns DNP Primary Care Provider Active Start: July 20, 2023 End: July 20, 2023 Bairon Duran DO Attending Provider Active Start : July 20, 2023 End: July 20, 2023 Team Status: Inactive Member Role Status Dates Lisa Johns DNP Primary Care Provider Active Start: July 29, 2023 End: July 29, 2023 Bairon Duran DO Attending Provider Active Start : July 29, 2023 End: July 29, 2023 Team Status: Inactive Member Role Status Dates Lisa Johns DNP Primary Care Provider Active Start: August 23, 2023 End: August 23, 2023 Curt Novoa DO Emergency Provider Active Sta rt: August 23, 2023 End: August 23, 2023 Team Status: Inactive Member Role Status Dates Lisa Johns DNP Primary Care Provid er, Attending Provider Active Start: August 25, 2023 End: August 25, 2023 Team Status: Inactive Member Role Status Dates Lisa Johns DNP Primary Care Provider Active Start: August 25, 2023 End: August 25, 2023 Eli Antony ONLINE EDUCATION MANAGER- Emergency Provider Active Start: August 25, 2023 End: August 25, 2023 Team Status: Active Member Role Status Dates Lisa Johns DNP Primary Care Provider Active Start: August 25, 2023 Susie Min LPN Attending Provider Active Sta rt: August 25, 2023 Team Status: Active Member Role Status Dates PHYSICIAN NO FAMILY Primary Care Provider Active Start: April 21, 2024 Erica Marie MD Attending Provider Active Sta rt: April 21, 2024 Team Status: Inactive Member Role Status Dates PHYSICIAN NO FAMILY Primary Care Provider Active Start: May 23, 2024 End: May 23, 2024 Florencio Guevara Jr, DO Attending Provider Active S tart: May 23, 2024 End: May 23, 2024 Teachers' Assistant Relationship Specialty Start Date End Date Sheri Ivey MD [address] [id number] PCP - General Family Medicine 06/06/24 Teachers' Assistant Relationship Specialty Start Date End Date Sheri Ivey MD [address] [place] [address] PCP - General Family Medicine 06/06/24 Goals (unrecognized section and content) Goals may be documented in a n alternate section Source Comments (unrecognize d section and content) In the event this informatio n is protected by the Federal Confidentiality of Alcohol and Drug Abuse Patient Records regulations: The Federal rules restrict any use of the information to criminally investigate or prosecute any alcohol or drug abuse patient.[facility]igh[facility] the event this information is protected by the Federal Confidentiality of Alcohol and Drug Abuse Patient Records regulations: The Federal rules restrict any use of the information to criminally investigate or prosecute any alcohol or drug abuse patient.[facility]ighIn the event this information is protected by the Federal Confidentiality of Alcohol and Drug Abuse Patient Records regulations: The Federal rules restrict any use of the information to criminally investigate or prosecute any alcohol or drug abuse patient.[facility]ighIn the event this information is protected by the Federal Confidentiality of Alcohol and Drug Abuse Patient Records regulations: The Federal rules restrict any use of the information to criminally investigate or prosecute any alcohol or drug abuse patient.[facility]ighIn the event this information is protected by the Federal Confidentiality of Alcohol and Drug Abuse Patient Records regulations: The Federal rules restrict any use of the information to criminally investigate or prosecute any alcohol or drug abuse patient.[facility]ighIn the event this information is protected by the Federal Confidentiality of Alcohol and Drug Abuse Patient Records regulations: The Federal rules restrict any use of the information to criminally investigate or prosecute any alcohol or drug abuse patient.[facility]ighIn the event this information is protected by the Federal Confidentiality of Alcohol and Drug Abuse Patient Records regulations: The Federal rules restrict any use of the information to criminally investigate or prosecute any alcohol or drug abuse patient.[facility]ighIn the event this information is protected by the Federal Confidentiality of Alcohol and Drug Abuse Patient Records regulations: The Federal rules restrict any use of the information to criminally investigate or prosecute any alcohol or drug abuse patient.[facility]ighIn the event this information is protected by the Federal Confidentiality of Alcohol and Drug Abuse Patient Records regulations: The Federal rules restrict any use of the information to criminally investigate or prosecute any alcohol or drug abuse patient.[facility]ighIn the event this information is protected by the Federal Confidentiality of Alcohol and Drug Abuse Patient Records regulations: The Federal rules restrict any use of the information to criminally investigate or prosecute any alcohol or drug abuse patient.[facility]ighIn the event this information is protected by the Federal Confidentiality of Alcohol and Drug Abuse Patient Records regulations: The Federal rules restrict any use of the information to criminally investigate or prosecute any alcohol or drug abuse patient.[facility]ighIn the event this information is protected by the Federal Confidentiality of Alcohol and Drug Abuse Patient Records regulations: The Federal rules restrict any use of the information to criminally investigate or prosecute any alcohol or drug abuse patient.[facility]ighIn the event this information is protected by the Federal Confidentiality of Alcohol and Drug Abuse Patient Records regulations: The Federal rules restrict any use of the information to criminally investigate or prosecute any alcohol or drug abuse patient.[facility]ighIn the event this information is protected by the Federal Confidentiality of Alcohol and Drug Abuse Patient Records regulations: The Federal rules restrict any use of the information to criminally investigate or prosecute any alcohol or drug abuse patient.[facility]ighIn the event this information is protected by the Federal Confidentiality of Alcohol and Drug Abuse Patient Records regulations: The Federal rules restrict any use of the information to criminally investigate or prosecute any alcohol or drug abuse patient.[facility]ighIn the event this information is protected by the Federal Confidentiality of Alcohol and Drug Abuse Patient Records regulations: The Federal rules restrict any use of the information to criminally investigate or prosecute any alcohol or drug abuse patient.[facility]ighIn the event this information is protected by the Federal Confidentiality of Alcohol and Drug Abuse Patient Records regulations: The Federal rules restrict any use of the information to criminally investigate or prosecute any alcohol or drug abuse patient.[facility]ighIn the event this information is protected by the Federal Confidentiality of Alcohol and Drug Abuse Patient Records regulations: The Federal rules restrict any use of the information to criminally investigate or prosecute any alcohol or drug abuse patient.[facility]ighIn the event this information is protected by the Federal Confidentiality of Alcohol and Drug Abuse Patient Records regulations: The Federal rules restrict any use of the information to criminally investigate or prosecute any alcohol or drug abuse patient.[facility]ighIn the event this information is protected by the Federal Confidentiality of Alcohol and Drug Abuse Patient Records regulations: The Federal rules restrict any use of the information to criminally investigate or prosecute any alcohol or drug abuse patient.[facility]ighIn the event this information is protected by the Federal Confidentiality of Alcohol and Drug Abuse Patient Records regulations: The Federal rules restrict any use of the information to criminally investigate or prosecute any alcohol or drug abuse patient.[facility]ighIn the event this information is protected by the Federal Confidentiality of Alcohol and Drug Abuse Patient Records regulations: The Federal rules restrict any use of the information to criminally investigate or prosecute any alcohol or drug abuse patient.[facility]ighIn the event this information is protected by the Federal Confidentiality of Alcohol and Drug Abuse Patient Records regulations: The Federal rules restrict any use of the information to criminally investigate or prosecute any alcohol or drug abuse patient.[facility]ighIn the event this information is protected by the Federal Confidentiality of Alcohol and Drug Abuse Patient Records regulations: The Federal rules restrict any use of the information to criminally investigate or prosecute any alcohol or drug abuse patient.[facility]ighIn the event this information is protected by the Federal Confidentiality of Alcohol and Drug Abuse Patient Records regulations: The Federal rules restrict any use of the information to criminally investigate or prosecute any alcohol or drug abuse patient.[facility]ighIn the event this information is protected by the Federal Confidentiality of Alcohol and Drug Abuse Patient Records regulations: The Federal rules restrict any use of the information to criminally investigate or prosecute any alcohol or drug abuse patient.[facility]ighIn the event this information is protected by the Federal Confidentiality of Alcohol and Drug Abuse Patient Records regulations: The Federal rules restrict any use of the information to criminally investigate or prosecute any alcohol or drug abuse patient.[facility] Scheduled Active and Recently Administ ered Medications (unrecognized section and content) Medication Order 07/07/2023 07/08/2023 07/09/2023 iohexol (OMNIPAQUE) 350 MG/ML injection (COMPLETED) 75 mL, Intravenous Push, Once at Radiology exam, 1 dose, Starting on Antonette 07/09/23 at 1822, Until Antonette 07/09/23 at 1818, Imaging Protocol Orders 181 (Bolus given - Provider: Cassandra Carrillo) FOR RECORDS PERTAINING TO PATIENTS WHO ARE OR HAVE BEEN ENROLLED IN A CHEMICAL DEPENDENCY/SUBSTANCEABUSE PROGRAM, SOME INFORMATION MAY BE OMITTED. This clinical summary was aggregated from multiple sources. Caution should be exercised in using it in the provision of clinical care. This summary normalizes information from multiple sources, and as a consequence, information in this document may materially change the coding, format and clinical context of patient data. In addition, data may be omitted in some cases. CLINICAL DECISIONS SHOULD BE BASED ON THE PRIMARY CLINICAL RECORDS. [employer] [facility]. provides no warranty or guarantee of the accuracy or completeness of information in this document.
--- NOTE | 2024-06-09 17:09 | US_ITS ---
[address] [address] Patient Name: HERNAN MCDONALD MRN: [id number] date: 1985 Sex: F Assigned Patient Location: ER Current Patient Location: ER Accession/Order Number: [id number] Exam Date: 06/09/2024 17:15 Report Date: 06/09/2024 18:45 At the request of: TAVO LANTIGUA Procedure: US right upper quadrant EXAM: Abdominal ultrasound limited CLINICAL INDICATION: RUQ pain. COMPARISON: CT scan dated 10/06/2013 TECHNIQUE: Grayscale and color Doppler imaging was performed of the right upper quadrant abdomen. FINDINGS: Liver: Possible mild diffuse hepatic steatosis. No hepatomegaly. No abnormal hepatic masses. Portal and hepatic veins are grossly patent. Gallbladder: Cholecystectomy. Biliary: No intrahepatic biliary ductal dilation. Common bile duct measures 3 mm. Kidneys: No right hydronephrosis. No sonographically evident right renal calculi. No right renal masses. Right kidney measures 10.9 cm length. Echogenic focus along the right lower pole calyx measuring up to 7 mm. Aorta/IVC: Patent and normal caliber where visualized. No ascites. US/US right upper quadrant IMPRESSION: 1. No acute sonographic abnormalities in the right upper quadrant. 2. Possible mild diffuse hepatic steatosis. 3. Probable right nephrolithiasis. Electronically authenticated by: SWAPNA GOLD Date: 06/09/2024 18:45
[2024-06-09 17:14] LABS: Basophils Percent Auto 0.5 % (0.2-2.0); Eosinophils Absolute Auto 0.4 10^3/uL (0.0-0.7); Eosinophils Percent Auto 5.5 % (0.9-7.0); Hematocrit 35.7 % (36.0-48.0); Hemoglobin 12.8 g/dL (12.0-16.0); Immature Granulocytes Abs Auto 0.01 10^3/uL (0.00-0.03); Immature Granulocytes Pct Auto 0.1 % (0.0-0.5); Lymphocytes Absolute Auto 3.6 10^3/uL (1.2-3.8); Lymphocytes Percent Auto 44.9 % (20.5-60.0); Mean Corpuscular HGB Conc 35.9 g/dL (29.9-35.2); Mean Corpuscular Hemoglobin 31.4 pg (26.7-34.0); Mean Corpuscular Volume 87.7 fL (81.0-99.0); Mean Platelet Volume 9.6 fL (9.5-13.5); Monocytes Absolute Auto 0.4 10^3/uL (0.3-0.8); Monocytes Percent Auto 5.5 % (1.7-12.0); Neutrophils Absolute Auto 3.5 10^3/uL (1.4-6.5); Neutrophils Percent Auto 43.5 % (43.0-75.0); Platelet Count 334 10^3/uL (150-450); Red Blood Count 4.07 10^6/uL (4.20-5.40); Red Cell Distribution Width 11.7 % (11.0-15.0)
[2024-06-09 17:25] LABS: Alanine Aminotransferase 24 U/L (14-59); Albumin Globulin Ratio 1.5; Albumin Level 4.1 g/dL (3.4-5.0); Alkaline Phosphatase 62 U/L (46-116); Anion Gap 13.9; Aspartate Amino Transferase 27 U/L (15-37); BUN Creatinine Ratio 14.7; Bilirubin Total 0.4 mg/dL (0.2-1.0); Calcium 8.7 mg/dL (8.5-10.1); Carbon Dioxide 21.6 mmol/L (21.0-32.0); Chloride 106 mmol/L (98-107); Estimated GFR (African America >60 (>=60 mL/min/1.73m^2); Estimated GFR (Non-African Ame 56 (>=60 mL/min/1.73m^2); Globulin 2.8 g/dL; Glucose 85 mg/dL (74-106); Potassium 3.5 mmol/L (3.5-5.1); Sodium 138 mmol/L (136-145); Total Protein 6.9 g/dL (6.4-8.2)
--- NOTE | 2024-06-09 17:39 | ED.GENADUL1 ---
HPI HPI - General Adult General Chief complaint: Abdominal Pain Stated complaint: FATIGUE, ABDOMINAL PAIN Time Seen by Provider: 06/09/24 16:45 Source: patient Mode of arrival: walk-in History of Present Illness HPI narrative: The patient 38-year-old female is coming to the ER with a right upper quadrant pain, and concern for jaundice, the patient is tearful and crying she mentioned that she had a accident in the last few weeks and apparently they did a CAT scan of her lumbar spine and it showed that there is a shadow on the liver and the patient since then has been feeling weak and tired and she thinks that she is jaundiced The patient seemed emotional she keep repeating that 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 and that why she did not follow-up on the shadow in her liver till now Patient have a history of cholecystectomy Related Data Home Medications ?Medication ?Instructions ?Recorded ?Confirmed acetazolamide 250 mg tablet 250 mg PO DAILY 04/21/24 06/09/24 albuterol sulfate 90 mcg/actuation 2 puff inhalation Q4H PRN 04/21/24 06/09/24 aerosol inhaler shortness of breath or wheezing cetirizine 10 mg tablet 10 mg PO DAILY 04/21/24 06/09/24 conjugated estrogens 0.45 mg 0.45 mg PO DAILY 04/21/24 06/09/24 tablet (Premarin) dextroamphetamine-amphetamine 20 20 mg PO DAILY 04/21/24 06/09/24 mg tablet montelukast 10 mg tablet 10 mg PO DAILY 04/21/24 06/09/24 naproxen 500 mg tablet 500 mg PO BID 06/09/24 06/09/24 tizanidine 4 mg tablet 4 mg PO DAILY 06/09/24 06/09/24 Allergies Allergy/AdvReac Type Severity Reaction Status Date / Time acetaminophen (From Percocet) Allergy Mild Hives Verified 04/21/24 18:01 nickel Allergy Mild Hives Verified 04/21/24 18:01 oxycodone (From Percocet) Allergy Mild Hives Verified 04/21/24 18:01 Sulfa (Sulfonamide Allergy Mild Hives Verified 04/21/24 18:01 Antibiotics) levofloxacin Allergy Swelling Verified 04/21/24 18:01 of Lip/Tongue/Throat silk tape Allergy Mild Hives Uncoded 04/21/24 18:01 Opioid HPI Opioid Management Most Recent Opioid Data: Last Pain Scale 4 06/09/24 17:09 06/09/24 Review of Systems ROS Status of ROS 10 or more systems reviewed and unremarkable except as noted in history and below PFSH PFSH Social History Little interest or pleasure in doing things: not at all Feeling down, depressed, or hopeless: not at all Exam Narrative Exam Narrative: Nurses notes and vital signs reviewed and patient is not hypoxic. General: Well-appearing and in no apparent distress. Skin: Warm, dry, no pallor noted. No rash. Head: Normocephalic, atraumatic. Neck: Supple, non-tender. Eye: Pupils are equal, round and EOMI. No scleral icterus. Ears, Nose, Mouth, and Throat: TM are clear, no nasal mucosal hypertrophy. Oral mucosa is moist, no posterior oropharynx erythema, uvula is mid-line Cardiovascular: Regular Rate and Rhythm without murmur, gallop or rub. Respiratory: No accessory muscle use or respiratory distress. Lungs are clear to auscultation, no wheezing, rales or rhonchi Chest Wall: no tenderness Back: No midline thoracic or lumbar vertebral tenderness. No CVA tenderness Musculoskeletal: normal ROM, no calf or popliteal tenderness, no lower extremity edema/swelling GI: Abdomen is soft, non-distended. Normal bowel sounds. No masses appreciated. Right upper quadrant tenderness on deep palpation Neurological: A&O x4. No cranial nerve dysfunction observed. No truncal ataxia. Moves all extremities. Sensation intact. Psychiatric: Cooperative and interactive. Normal mood and affect. Constitutional Vital Signs, click to edit/add: Last Vital Signs Temp 97.9 F 06/09/24 16:51 Pulse 82 06/09/24 16:51 Resp 20 06/09/24 16:51 BP 120/85 06/09/24 16:51 Pulse Ox 98 06/09/24 16:51 O2 Del Method Room Air 06/09/24 16:51 Course Vital Signs Vital signs: Vital Signs Temperature 97.9 F 06/09/24 16:51 Pulse Rate 82 06/09/24 16:51 Respiratory Rate 20 06/09/24 16:51 Blood Pressure 120/85 06/09/24 16:51 Pulse Oximetry 98 06/09/24 16:51 Oxygen Delivery Method Room Air 06/09/24 16:51 Temperature 97.9 F 06/09/24 16:51 Pulse Rate 82 06/09/24 16:51 Respiratory Rate 20 06/09/24 16:51 Blood Pressure 120/85 06/09/24 16:51 Pulse Oximetry 98 06/09/24 16:51 Oxygen Delivery Method Room Air 06/09/24 16:51 Medical Decision Making MDM Narrative Medical decision making narrative: The patient CBC and chemistry showed no acute significant pathology her lipase was mildly elevated but with her history of cholecystectomy this could be secondary to that. The patient ultrasound of the right upper quadrant question of possible kidney stone CT abdomen pelvis as well as urinalysis are pending ---pt care transferred to Dr John Lab Data Labs: Lab Results 06/09/24 Range/Units 17:03 WBC 8.0 (4.0-11.0) 10^3/uL RBC 4.07 L (4.20-5.40) 10^6/uL Hgb 12.8 (12.0-16.0) g/dL Hct 35.7 L (36.0-48.0) % MCV 87.7 (81.0-99.0) fL MCH 31.4 (26.7-34.0) pg MCHC 35.9 H (29.9-35.2) g/dL RDW 11.7 (11.0-15.0) % Plt Count 334 (150-450) 10^3/uL MPV 9.6 (9.5-13.5) fL Neut % (Auto) 43.5 (43.0-75.0) % Lymph % (Auto) 44.9 (20.5-60.0) % [place] % (Auto) 5.5 (1.7-12.0) % Eos % (Auto) 5.5 (0.9-7.0) % Baso % (Auto) 0.5 (0.2-2.0) % Neut # (Auto) 3.5 (1.4-6.5) 10^3/uL Lymph # (Auto) 3.6 (1.2-3.8) 10^3/uL [place] # (Auto) 0.4 (0.3-0.8) 10^3/uL Eos # (Auto) 0.4 (0.0-0.7) 10^3/uL Baso # (Auto) 0.0 (0.0-0.1) 10^3/uL Abs Immat Gran (auto) 0.01 (0.00-0.03) 10^3/uL Imm/Tot Granulo (auto) 0.1 (0.0-0.5) % Sodium 138 (136-145) mmol/L Potassium 3.5 (3.5-5.1) mmol/L Chloride 106 (98-107) mmol/L Carbon Dioxide 21.6 (21.0-32.0) mmol/L Anion Gap 13.9 BUN 16.0 (7.0-18.0) mg/dL Creatinine 1.09 H (0.55-1.02) mg/dL Est GFR ( Amer) >60 (>=60 mL/min/1.73m^2) Est GFR (Non-Af Amer) 56 L (>=60 mL/min/1.73m^2) BUN/Creatinine Ratio 14.7 Glucose 85 (74-106) mg/dL Calcium 8.7 (8.5-10.1) mg/dL Total Bilirubin 0.4 (0.2-1.0) mg/dL AST 27 (15-37) U/L ALT 24 (14-59) U/L Alkaline Phosphatase 62 (46-116) U/L Total Protein 6.9 (6.4-8.2) g/dL Albumin 4.1 (3.4-5.0) g/dL Globulin 2.8 g/dL Albumin/Globulin Ratio 1.5 Lipase 91.0 H (16.0-77.0) U/L Serum HCG, Qual Negative (NEGATIVE) Discharge Plan Discharge Patient Disposition: Still a Patient
[2024-06-09 18:27] LABS: HCG Qualitative NEGATIVE (NEGATIVE); Internal Control Within Normal Limits
--- NOTE | 2024-06-09 18:54 | CT_ITS ---
[place] [id number] Patient Name: HERNAN MCDONALD MRN: [id number] date: 1985 Sex: F Assigned Patient Location: ER Current Patient Location: ER Accession/Order Number: [id number] Exam Date: 06/09/2024 18:59 Report Date: 06/09/2024 19:39 At the request of: TAVO LANTIGUA Procedure: CT abdomen pelvis wo con EXAMINATION: CT abdomen pelvis wo con, 06/09/2024 6:59 PM EST HISTORY: Kidney stone COMPARISON: None. TECHNIQUE: CT scan of the abdomen and pelvis was performed without IV contrast. CT dose reduction technique was used, including Automated Exposure Control. FINDINGS: LOWER CHEST: The visualized lungs are clear. LIVER: Unremarkable. GALLBLADDER AND BILIARY SYSTEM: Status post cholecystectomy. No intra or extrahepatic biliary ductal dilatation. SPLEEN: Unremarkable. PANCREAS: Unremarkable. ADRENAL GLANDS: Unremarkable. KIDNEYS AND URETERS: There is a 2 mm nonobstructing calculus in the upper pole the left kidney. 3 mm nonobstructing calculus in the lower pole the right kidney. No ureteral calculus or hydronephrosis. No perinephric stranding. BLADDER: Under distended. GASTROINTESTINAL TRACT: No evidence of bowel obstruction or colitis. Normal appendix. VASCULATURE: The abdominal aorta is normal in caliber. RETROPERITONEUM: No lymphadenopathy. PERITONEUM/MESENTERY: No abdominal ascites. No free air. PELVIS: No pelvic ascites or lymphadenopathy. BODY WALL: Unremarkable. BONES: Mild levoscoliosis of the lumbar spine. CT/CT abdomen pelvis wo con IMPRESSION: 1. Bilateral nephrolithiasis. No hydronephrosis. 2. Mild levoscoliosis of the lumbar spine. Electronically authenticated by: GLORIA ARCE Date: 06/09/2024 19:39
[2024-06-09 19:19] LABS: Bilirubin Urine NEGATIVE (NEGATIVE); Blood Urine NEGATIVE (NEGATIVE); Clarity Urine CLEAR (CLEAR); Color Urine LT. YELLOW (YELLOW); Glucose Urine UA NEGATIVE (NEGATIVE); Ketones Urine NEGATIVE (NEGATIVE); Leukocyte Esterase Urine NEGATIVE (NEGATIVE); Nitrite Urine NEGATIVE (NEGATIVE); Protein Urine NEGATIVE (NEG/TRACE); Urobilinogen Urine 0.2 EU/dL (0.2-1.0)
[2024-06-09 19:24] LABS: Urine Microscopic Indicated NO
--- NOTE | 2024-06-09 19:51 | ED_ITS ---
HPI - Abdominal Pain General Chief Complaint: Abdominal Pain Stated Complaint: FATIGUE, ABDOMINAL PAIN Time Seen by Provider: 06/09/24 16:45 Source: patient Mode of arrival: walk-in History of Present Illness HPI narrative: 38-year-old female presented to the emergency department and was initially seen by Dr. Marie and signed out to me after discussing the case with her thoroughly. Please see her full history and physical exam. Related Data Home Medications ?Medication ?Instructions ?Recorded ?Confirmed acetazolamide 250 mg tablet 250 mg PO DAILY 04/21/24 06/09/24 albuterol sulfate 90 mcg/actuation 2 puff inhalation Q4H PRN 04/21/24 06/09/24 aerosol inhaler shortness of breath or wheezing cetirizine 10 mg tablet 10 mg PO DAILY 04/21/24 06/09/24 conjugated estrogens 0.45 mg 0.45 mg PO DAILY 04/21/24 06/09/24 tablet (Premarin) dextroamphetamine-amphetamine 20 20 mg PO DAILY 04/21/24 06/09/24 mg tablet montelukast 10 mg tablet 10 mg PO DAILY 04/21/24 06/09/24 naproxen 500 mg tablet 500 mg PO BID 06/09/24 06/09/24 tizanidine 4 mg tablet 4 mg PO DAILY 06/09/24 06/09/24 Allergies Allergy/AdvReac Type Severity Reaction Status Date / Time acetaminophen (From Percocet) Allergy Mild Hives Verified 04/21/24 18:01 nickel Allergy Mild Hives Verified 04/21/24 18:01 oxycodone (From Percocet) Allergy Mild Hives Verified 04/21/24 18:01 Sulfa (Sulfonamide Allergy Mild Hives Verified 04/21/24 18:01 Antibiotics) levofloxacin Allergy Swelling Verified 04/21/24 18:01 of Lip/Tongue/Throat silk tape Allergy Mild Hives Uncoded 04/21/24 18:01 PFSH PFSH Social History Little interest or pleasure in doing things: not at all Feeling down, depressed, or hopeless: not at all Exam Constitutional Vital Signs, click to edit/add: Last Vital Signs Temp 97.9 F 06/09/24 16:51 Pulse 82 06/09/24 16:51 Resp 20 06/09/24 16:51 BP 120/85 06/09/24 16:51 Pulse Ox 98 06/09/24 16:51 O2 Del Method Room Air 06/09/24 16:51 Course Vital Signs Vital signs: Vital Signs Temperature 97.9 F 06/09/24 16:51 Pulse Rate 82 06/09/24 16:51 Respiratory Rate 20 06/09/24 16:51 Blood Pressure 120/85 06/09/24 16:51 Pulse Oximetry 98 06/09/24 16:51 Oxygen Delivery Method Room Air 06/09/24 16:51 Temperature 97.9 F 06/09/24 16:51 Pulse Rate 82 06/09/24 16:51 Respiratory Rate 20 06/09/24 16:51 Blood Pressure 120/85 06/09/24 16:51 Pulse Oximetry 98 06/09/24 16:51 Oxygen Delivery Method Room Air 06/09/24 16:51 MDM - Abdominal Pain MDM Narrative Medical decision making narrative: CT scan shows bilateral nephrolithiasis and otherwise shows no acute findings. The cause of her symptoms is uncertain at this point. She is able to be discharged home and will follow-up with her physician. Treatment diagnosis and follow-up were discussed with the patient Differential Diagnosis Differential diagnosis: Likely abdominal pain, calculus of kidney, constipation, diverticulitis, gastroenteritis and pancreatitis Lab Data Attestation: I reviewed the patient's lab results. Labs: Lab Results 06/09/24 06/09/24 Range/Units 17:03 19:15 WBC 8.0 (4.0-11.0) 10^3/uL RBC 4.07 L (4.20-5.40) 10^6/uL Hgb 12.8 (12.0-16.0) g/dL Hct 35.7 L (36.0-48.0) % MCV 87.7 (81.0-99.0) fL MCH 31.4 (26.7-34.0) pg MCHC 35.9 H (29.9-35.2) g/dL RDW 11.7 (11.0-15.0) % Plt Count 334 (150-450) 10^3/uL MPV 9.6 (9.5-13.5) fL Neut % (Auto) 43.5 (43.0-75.0) % Lymph % (Auto) 44.9 (20.5-60.0) % [place] % (Auto) 5.5 (1.7-12.0) % Eos % (Auto) 5.5 (0.9-7.0) % Baso % (Auto) 0.5 (0.2-2.0) % Neut # (Auto) 3.5 (1.4-6.5) 10^3/uL Lymph # (Auto) 3.6 (1.2-3.8) 10^3/uL [place] # (Auto) 0.4 (0.3-0.8) 10^3/uL Eos # (Auto) 0.4 (0.0-0.7) 10^3/uL Baso # (Auto) 0.0 (0.0-0.1) 10^3/uL Abs Immat Gran (auto) 0.01 (0.00-0.03) 10^3/uL Imm/Tot Granulo (auto) 0.1 (0.0-0.5) % Sodium 138 (136-145) mmol/L Potassium 3.5 (3.5-5.1) mmol/L Chloride 106 (98-107) mmol/L Carbon Dioxide 21.6 (21.0-32.0) mmol/L Anion Gap 13.9 BUN 16.0 (7.0-18.0) mg/dL Creatinine 1.09 H (0.55-1.02) mg/dL Est GFR ( Amer) >60 (>=60 mL/min/1.73m^2) Est GFR (Non-Af Amer) 56 L (>=60 mL/min/1.73m^2) BUN/Creatinine Ratio 14.7 Glucose 85 (74-106) mg/dL Calcium 8.7 (8.5-10.1) mg/dL Total Bilirubin 0.4 (0.2-1.0) mg/dL AST 27 (15-37) U/L ALT 24 (14-59) U/L Alkaline Phosphatase 62 (46-116) U/L Total Protein 6.9 (6.4-8.2) g/dL Albumin 4.1 (3.4-5.0) g/dL Globulin 2.8 g/dL Albumin/Globulin Ratio 1.5 Lipase 91.0 H (16.0-77.0) U/L Serum HCG, Qual Negative (NEGATIVE) Urine Color Lt. yellow (YELLOW) Urine Clarity Clear (CLEAR) Urine pH 7.0 (5.0-9.0) Ur Specific [place] 1.010 (1.005-1.025) Urine Protein Negative (NEG/TRACE) mg/dL Urine Glucose (UA) Negative (NEGATIVE) mg/dL Urine Ketones Negative (NEGATIVE) mg/dL Urine Occult Blood Negative (NEGATIVE) Urine Nitrite Negative (NEGATIVE) Urine Bilirubin Negative (NEGATIVE) Urine Urobilinogen 0.2 (0.2-1.0) EU/dL Ur Leukocyte Esterase Negative (NEGATIVE) Imaging Data CT scan - abdomen: Radiologist's impression: ITS Impressions Upper Quadrant Ultrasound 06/09/24 17:09 IMPRESSION: 1. No acute sonographic abnormalities in the right upper quadrant. 2. Possible mild diffuse hepatic steatosis. 3. Probable right nephrolithiasis. Electronically authenticated by: SWAPNA GOLD Date: 06/09/2024 18:45 Abdomen/Pelvis CT 06/09/24 18:54 IMPRESSION: 1. Bilateral nephrolithiasis. No hydronephrosis. 2. Mild levoscoliosis of the lumbar spine. Electronically authenticated by: GLORIA ARCE Date: 06/09/2024 19:39 Discharge Plan Discharge Chief Complaint: Abdominal Pain Clinical Impression: Abdominal pain Patient Disposition: Home, Self-Care Time of Disposition Decision: 19:51 Condition: Good Mode of Transportation: Private Vehicle Prescriptions / Home Meds: No Action cetirizine 10 mg tablet 10 mg PO DAILY acetazolamide 250 mg tablet 250 mg PO DAILY dextroamphetamine-amphetamine 20 mg tablet 20 mg PO DAILY montelukast 10 mg tablet 10 mg PO DAILY albuterol sulfate 90 mcg/actuation HFA aerosol inhaler 2 puff INHALATION Q4H PRN (Reason: shortness of breath or wheezing) Premarin 0.45 mg tablet 0.45 mg PO DAILY naproxen 500 mg tablet 500 mg PO BID tizanidine 4 mg tablet 4 mg PO DAILY Print Language: Bulgarian Instructions: Abdominal Pain (ED) Referrals: Yoan Morel MD [Primary Care Provider] - 1 week
[2024-06-09 19:57] VITALS: BP 113/81; PULSE 70; O2SAT 97
== END 2024-06-09 19:59 | disposition home or self-care (01) ==
PROVIDERS: Emergency Medicine; Emergency Provider Emergency Medicine; PCP Family Medicine
DX: R10.11 Right upper quadrant pain (principal); N20.0 Calculus of kidney; Z90.49 Acquired absence of other specified parts of digestive tract
CPT/HCPCS: 36415; 74176; 76705; 80053; 81003; 83690; 84703; 85025; 99285

== ENCOUNTER 2024-06-15 16:48 | Outpatient (OUT) | payer MEDICAID, SELFPAY ==
--- NOTE | 2024-06-15 | XR_ITS ---
[address] [address] Patient Name: HERNAN MCDONALD MRN: [id number] date: 1985 Sex: F Assigned Patient Location: [facility] Current Patient Location: Accession/Order Number: [id number] Exam Date: 06/15/2024 17:10 Report Date: 06/17/2024 11:52 At the request of: SHERI IVEY Procedure: XR acute abdomen series EXAMINATION: XR acute abdomen series HISTORY: Kidney Stones COMPARISON: No relevant comparison available. FINDINGS: KIDNEY/URETER - RIGHT: No visible renal or ureteral calcifications. KIDNEY/URETER - LEFT: No visible renal or ureteral calcifications. PELVIS: No visible ureteral calcifications. Any visible calcifications favor phleboliths. BOWEL: No abnormal dilation or deviation. Moderate stool in the descending colon BONES: No acute abnormality. Rotatory levocurvature centered at L3 OTHER: Negative. No abnormal gaseous collections. XR/XR acute abdomen series IMPRESSION: Clear lungs No definite urinary tract calculi Electronically authenticated by: YOLIE SHAH Date: 06/17/2024 11:52
== END 2024-06-15 16:49 | disposition home or self-care (01) ==
LOC: RAD 16:59
PROVIDERS: PCP Family Medicine; Visit Provider Family Medicine
DX: Z00.00 Encounter for general adult medical examination without abnormal findings (principal)
CPT/HCPCS: 74022

== ENCOUNTER 2024-06-16 15:42 | Outpatient (OUT) | payer MEDICAID, SELFPAY ==
[2024-06-16 16:00] LABS: Bilirubin Urine NEGATIVE (NEGATIVE); Blood Urine NEGATIVE (NEGATIVE); Clarity Urine CLEAR (CLEAR); Color Urine LT. YELLOW (YELLOW); Glucose Urine UA NEGATIVE (NEGATIVE); Ketones Urine NEGATIVE (NEGATIVE); Leukocyte Esterase Urine NEGATIVE (NEGATIVE); Nitrite Urine NEGATIVE (NEGATIVE); Protein Urine NEGATIVE (NEG/TRACE); Specific Gravity Urine <=1.005 (1.005-1.025); Urobilinogen Urine 0.2 EU/dL (0.2-1.0)
[2024-06-16 16:03] LABS: Basophils Percent Auto 0.5 % (0.2-2.0); Eosinophils Absolute Auto 0.4 10^3/uL (0.0-0.7); Eosinophils Percent Auto 4.8 % (0.9-7.0); Hematocrit 35.3 % (36.0-48.0); Hemoglobin 12.6 g/dL (12.0-16.0); Immature Granulocytes Abs Auto 0.01 10^3/uL (0.00-0.03); Immature Granulocytes Pct Auto 0.1 % (0.0-0.5); Lymphocytes Absolute Auto 3.8 10^3/uL (1.2-3.8); Mean Corpuscular HGB Conc 35.7 g/dL (29.9-35.2); Mean Corpuscular Hemoglobin 31.2 pg (26.7-34.0); Mean Corpuscular Volume 87.4 fL (81.0-99.0); Mean Platelet Volume 9.3 fL (9.5-13.5); Monocytes Absolute Auto 0.4 10^3/uL (0.3-0.8); Monocytes Percent Auto 4.8 % (1.7-12.0); Neutrophils Absolute Auto 4.1 10^3/uL (1.4-6.5); Neutrophils Percent Auto 46.8 % (43.0-75.0); Platelet Count 315 10^3/uL (150-450); Red Blood Count 4.04 10^6/uL (4.20-5.40); Red Cell Distribution Width 11.5 % (11.0-15.0); White Blood Count 8.8 10^3/uL (4.0-11.0)
[2024-06-16 16:17] LABS: Estimated Average Glucose 94 mg/dL
[2024-06-16 16:19] LABS: Bacteria Urine NONE SEEN #/HPF (NONE SEEN); Cast Seen? NONE SEEN #/LPF (NONE SEEN); Crystals Seen? None Seen #/HPF (None Seen); Mucus Urine NONE SEEN (NONE SEEN); RBC Urine 0-2 #/HPF (0-2); Squamous Epithelial Cell Urine FEW #/LPF (NONE/RARE); WBC Urine 0-2 #/HPF (NONE SEEN)
[2024-06-16 16:38] LABS: Alanine Aminotransferase 30 U/L (14-59); Albumin Globulin Ratio 1.3; Albumin Level 3.8 g/dL (3.4-5.0); Alkaline Phosphatase 53 U/L (46-116); Amylase 71 U/L (25-115); Anion Gap 15.7; Aspartate Amino Transferase 29 U/L (15-37); BUN Creatinine Ratio 9.5; Bilirubin Total 0.5 mg/dL (0.2-1.0); Calcium 8.8 mg/dL (8.5-10.1); Carbon Dioxide 21.7 mmol/L (21.0-32.0); Chloride 106 mmol/L (98-107); Chol HDL Ratio 3.3; Cholesterol 198 mg/dL (<=200); Estimated GFR (African America >60 (>=60 mL/min/1.73m^2); Estimated GFR (Non-African Ame 59 (>=60 mL/min/1.73m^2); Free T3 2.31 pg/mL (2.18-3.98); Glucose 89 mg/dL (74-106); HDL Cholesterol 60 mg/dL (40-60); LDL Cholesterol Calculated 116.8 mg/dL; Potassium 3.4 mmol/L (3.5-5.1); Sodium 140 mmol/L (136-145); Thyroid Stimulating Hormone 1.261 uIU/mL (0.358-3.740); Total Protein 6.8 g/dL (6.4-8.2); Triglycerides 106 mg/dL (<=150); VLDL CHOLESTEROL 21.2 mg/dL
[2024-06-16 16:39] LABS: Glycohemoglobin A1C 4.9 % (4.5-6.2)
[2024-06-18 10:09] LABS: Insulin 3.7 uIU/mL (2.6-24.9)
== END 2024-06-16 15:43 | disposition home or self-care (01) ==
PROVIDERS: PCP Family Medicine; Visit Provider Family Medicine
DX: Z00.00 Encounter for general adult medical examination without abnormal findings (principal)
CPT/HCPCS: 36415; 80053; 80061; 81001; 82150; 82306; 83036; 83525; 83540; 83690; 84436; 84443; 84481; 85025; 87086

== ENCOUNTER 2024-07-07 07:58 | Outpatient (OUT) | payer MEDICAID, SELFPAY ==
--- NOTE | 2024-07-07 08:00 | CA_ITS ---
Patient Name: HERNAN MCDONALD MR#: [id number] : 1985 Exam Date: 07/07/2024 Ordering Doctor: DR Yoan Morel . ECHOCARDIOGRAM REPORT PROCEDURE: CA ECHO DOPPLER COMPLETE INDICATIONS: Fatigue COMPARISON: None. DESCRIPTION: COMPLETE ECHOCARDIOGRAM Real-time transthoracic echocardiography with 2D, M-mode, spectral and color flow Doppler performed. QUALITY: Technical quality was good. LEFT VENTRICLE: Normal chamber size. Normal left ventricular wall thickness. LV EF: Global left ventricular systolic function is normal; visually estimated ejection fraction is 55 to 60%. No significant wall motion abnormalities. DIASTOLIC: Normal diastolic function. ATRIAL SEPTUM: Visually appears intact. LEFT ATRIUM: Normal chamber size. RIGHT ATRIUM: Normal chamber size. RIGHT VENTRICLE: Normal chamber size. Normal right ventricular systolic function. TRICUSPID VALVE: Normal mobility and thickness. No stenosis with trivial regurgitation. No evidence of pulmonary hypertension. RVSP 22 mmHg MITRAL VALVE: Normal mobility and thickness. No evidence of mitral valve stenosis. There is no mitral annular calcification. AORTIC VALVE: Normal trileaflet appearance. No visible sclerosis. Normal leaflet mobility. No evidence of aortic valve stenosis. No aortic regurgitation. AORTIC ROOT: Normal diameter and appearance. PULMONIC VALVE: Normal thickness and mobility. No stenosis. No regurgitation. PERICARDIUM: Anterior free space is seen; trivial effusion versus a fat pad. IVC: Collapses with inspirations. IVC is normal in size. CONCLUSION: 1. Global left ventricular systolic function is normal; visually estimated ejection fraction is 55 to 60% 2. Normal right ventricular size and systolic function 3. Normal diastolic function 4. The left atrium is normal in size 5. No significant valvular abnormalities 6. Anterior free space; trivial effusion versus fat pad Adult Echocardiography Procedure Report Left Ventricle LVEDD (3.7 - 5.6 cm): 4.83 cm LVESD (2.2 - 4.0 cm): 3.15 cm LVIVS thickness (0.6 - 1.2 cm): 0.75 cm LVPW thickness (0.5 - 1.0 cm): 0.81 cm e': 0.10 m/s E - e': 7.08 LVOT Max Gradient: 2.60 mm[Hg] LVOT Area (cm2): 0.81 m/s Peak Velocity (LVOT): 0.81 m/s Mean Velocity (LVOT): 0.53 m/s LVOT Diameter 2.37 cm Left Atrium LA Volume Index (2D A2C): 32.49 ml/m2 Left Atrium Systolic Dimension: 3.27 cm Mitral Valve MV E to A Ratio: 1.70 Mitral Valve A-Wave Peak Velocity: 0.44 m/s Mitral Valve E-Wave Peak Velocity: 0.74 m/s Right Ventricle Aorta AO Root Diam: 3.31 cm Aortic Valve AoV Area (Peak Josr): 3.30 cm2, 3.30 cm2 AoV Area (VTI): 3.22 cm2, 3.22 cm2 Peak Velocity(Antegrade Flow): 1.08 m/s Peak Gradient(Antegrade Flow): 4.63 mm[Hg] Mean Velocity(Antegrade Flow): 0.67 m/s Mean Gradient(Antegrade Flow): 2.20 mm[Hg] Velocity Time Integral: 24.68 cm Tricuspid Valve Peak Velocity (Regurgitant Flow): 2.19 m/s Pulmonic Valve Mean Gradient: 2.54 mm[Hg] Mean Velocity: 0.75 m/s Peak Velocity: 1.07 m/s, 1.02 m/s Peak Gradient: 4.14 mm[Hg], 4.54 mm[Hg] Right Atrium Right Atrium Systolic Pressure: 37.84 ml, 37.84 ml Dictated by: Marlene Chowdary M.D. on 07/07/2024 at 13:33 Approved by: Marlene Chowdary M.D. on 07/07/2024 at 13:36
== END 2024-07-07 07:59 | disposition home or self-care (01) ==
LOC: CARD 08:00
PROVIDERS: PCP Family Medicine; Visit Provider Family Medicine
DX: R53.83 Other fatigue (principal)
CPT/HCPCS: 93306

== ENCOUNTER 2024-10-05 15:34 | Emergency (ER) | payer MEDICAID, SELFPAY ==
[2024-10-05 15:42] VITALS: BP 138/92; PULSE 86; TEMP 36.8; O2SAT 97; BMI 29.1
--- NOTE | 2024-10-05 15:59 | ECG_ITS ---
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 Measurements Intervals [place] Rate: 63 P: 67 RI: 154 QRS: 74 QRSD: 90 T: 73 QT: 388 QTc: 395 Interpretive Statements [address]LEV, PROBABLE NORMAL EARLY REPOL PATTERN 9110 normal ECG Compared to ECG 02/04/2019 19:07:27 Sinus arrhythmia no longer present Possible ischemia no longer present Electronically Signed On 10-05-2024 18:09:42 EDT by LORRI EDWARDS M.D.
--- NOTE | 2024-10-05 15:59 | CT_ITS ---
The [address] [address] Patient Name: HERNAN MCDONALD MRN: [id number] date: 1985 Sex: F Assigned Patient Location: ER Current Patient Location: ER Accession/Order Number: [id number] Exam Date: 10/05/2024 16:52 Report Date: 10/05/2024 16:54 At the request of: DOUG TORRES MD Procedure: CT head/brain wo con CT head/brain wo con 10/05/2024 4:28 PM SIGNS AND SYMPTOMS: ^Shaky, therapeutic lumbar puncture last week TECHNIQUE:Multi-detector CT axial slices of the brain were obtained without IV contrast. CT was performed with one or more of the following dose reduction techniques: Automated exposure control, adjustment of the mA and/or kV according to patient size, or use of iterative reconstruction technique. COMPARISON: None. FINDINGS: There is no shift of the midline structures, acute intracranial bleeding, mass effects, or evidence of acute ischemia. The ventricular system is normal in size. The brainstem and the cerebellum are unremarkable. Their is flattening of the pituitary within the sella. The visualized intraorbital contents, the visualized paranasal sinuses, and the infratemporal soft tissues show no acute abnormality. The osseous structures in the skull base and the calvarium show no abnormality. CT/CT head/brain wo con IMPRESSION: No acute intra-abdominal pathology. There is flattening of the pituitary within the sella consistent with a history of intracranial hypertension. Impression dictated by: Dorian Hopkins M.D. 10/05/2024 4:54 PM Dictation Location: [place] [address] Electronically authenticated by: [id number] Y Date: 10/05/2024 16:54
--- NOTE | 2024-10-05 16:00 | ED_ITS ---
HPI HPI - General Adult General Chief complaint: Dizziness Stated complaint: vi, did have a lumbar puncture, sentfrirene sheppard Time Seen by Provider: 10/05/24 15:37 Source: patient Mode of arrival: ambulance History of Present Illness HPI narrative: 39-year-old female presents to the emergency department for being shaky. She has been feeling this way for 3 weeks. 4 days ago she had a therapeutic lumbar puncture for intracranial hypertension. She has not had any localized weakness or fever. She states she has trouble thinking of her words and getting them out. Her hands have been shaky as well but that was present before she had the lumbar puncture. She saw her PCP today who sent her here. Related Data Home Medications ?Medication ?Instructions ?Recorded ?Confirmed albuterol sulfate 90 mcg/actuation 2 puff inhalation Q 4H PRN 04/21/24 10/05/24 aerosol inhaler shortness of breath or wheez ing cetirizine 10 mg tablet 10 mg PO DAILY 04/21/2409/09 dextroamphetamine-amphetamine 20 20 mg PO DAILY 10/05/24 mg tablet montelukast 10 mg tablet 10 mg PO DAILY 04/21/2409/09 tizanidine 4 mg tablet 4 mg PO DAILY 06/09/2410/05 Allergies Allergy/AdvReac Type Severity Reaction Status Date / Time acetaminophen (From Percocet) Allergy Mild Hives Verified 10/05/24 15:42 nickel Allergy Mild Hives Verified 10/05/24 15:42 oxycodone (From Percocet) Allergy Mild Hives Verified 10/05/24 15:42 Sulfa (Sulfonamide Allergy Mild Hives Verified 10/05/24 15:42 Antibiotics) levofloxacin Allergy Swelling Verified 10/05/24 15:42 of Lip/Tongue/Throat morphine Allergy tongue Verified 10/05/24 15:42 swelling silk tape Allergy Mild Hives Uncoded 10/05/24 15:42 Opioid HPI Opioid Management Most Recent Opioid Data: Last Pain Scale 4 06/09/24, 17:09 Review of Systems ROS Narrative A ten point review of systems is negative except as noted above. PFSH PFSH Social History (System 06/10/24 @ 09:51 by Vidhya Love) Little interest or pleasure in doing things: not at all Feeling down, depressed, or hopeless: several days Exam Narrative Exam Narrative: Nurses note and vital signs reviewed and patient is not hypoxic. General: The patient appears in no apparent distress. Skin: Warm, dry, no pallor noted. There is no rash noted. Head: Normocephalic, atraumatic; neck supple, no nuchal rigidity Eye: Normal conjunctiva, no drainage, EOMI. PERRL Ears, Nose, Mouth, and Throat: oral mucosa is moist. Nares patent. Cardiovascular: Regular Rate and Rhythm Respiratory: Patient is in no distress, no accessory muscle use, lungs are clear to auscultation, no wheezing, rales or rhonchi Back: non-tender GI: Soft and nontender Musculoskeletal: The patient has no evidence of calf tenderness, no pitting edema, symmetrical pulses noted bilaterally Neurological: A&O, generally normal speech, at times seems to hesitate getting words out; upper and lower extremity strength symmetric and intact; hands are tremulous Psychiatric: Cooperative Constitutional Vital Signs, click to edit/add: Last Vital Signs Temp 98.3 F 10/05/24 15:42 Pulse 86 10/05/24 15:42 Resp 16 10/05/24 15:42 BP 138/92 H 10/05/24 15:42 Pulse Ox 97 10/05/24 15:42 O2 Del Method Room Air 10/05/24 15:42 Course Vital Signs Vital signs: Vital Signs Temperature 98.3 F 10/05/24 15:42 Pulse Rate 86 10/05/24 15:42 Respiratory Rate 16 10/05/24 15:42 Blood Pressure 138/92 H 10/05/24 15:42 Pulse Oximetry 97 10/05/24 15:42 Oxygen Delivery Method Room Air 10/05/24 15:42 Temperature 98.3 F 10/05/24 15:42 Pulse Rate 86 10/05/24 15:42 Respiratory Rate 16 10/05/24 15:42 Blood Pressure 138/92 H 10/05/24 15:42 Pulse Oximetry 97 10/05/24 15:42 Oxygen Delivery Method Room Air 10/05/24 15:42 Medical Decision Making [facility] Narrative Medical decision making narrative: CT brain findings were discussed with the patient's. Blood work is essentially negative. I have no clinical suspicion of meningitis. I spoke to Dr. Morel who recommends the patient be restarted on her Diamox and this was communicated to the patient. She will see him in the morning. Treatment diagnosis and follow- up were discussed with the patient. Differential Diagnosis Differential Diagnosis: Tremors, electrolyte imbalance Lab Data Lab results reviewed: Yes I reviewed the patient's lab results Labs: Lab Results 10/05/24 Range/Units 16:10 WBC 12.9 H (4.0-11.0) 10^3/uL RBC 4.12 L (4.20-5.40) 10^6/uL Hgb 12.9 (12.0-16.0) g/dL Hct 37.3 (36.0-48.0) % MCV 90.5 (81.0-99.0) fL MCH 31.3 (26.7-34.0) pg MCHC 34.6 (29.9-35.2) g/dL RDW 11.7 (11.0-15.0) % Plt Count 284 (150-450) 10^3/uL MPV 9.1 L (9.5-13.5) fL Neut % (Auto) 66.7 (43.0-75.0) % Lymph % (Auto) 25.7 (20.5-60.0) % [place] % (Auto) 5.4 (1.7-12.0) % Eos % (Auto) 1.6 (0.9-7.0) % Baso % (Auto) 0.3 (0.2-2.0) % Neut # (Auto) 8.6 H (1.4-6.5) 10^3/uL Lymph # (Auto) 3.3 (1.2-3.8) 10^3/uL [place] # (Auto) 0.7 (0.3-0.8) 10^3/uL Eos # (Auto) 0.2 (0.0-0.7) 10^3/uL Baso # (Auto) 0.0 (0.0-0.1) 10^3/uL Abs Immat Gran (auto) 0.04 H (0.00-0.03) 10^3/uL Imm/Tot Granulo (auto) 0.3 (0.0-0.5) % Sodium 143 (136-145) mmol/L Potassium 4.0 (3.5-5.1) mmol/L Chloride 105 (98-107) mmol/L Carbon Dioxide 29.5 (21.0-32.0) mmol/L Anion Gap 12.5 BUN 14.0 (7.0-18.0) mg/dL Creatinine 1.07 H (0.55-1.02) mg/dL Est GFR ( Amer) >60 (>=60 mL/min/1.73m^2) Est GFR (Non-Af Amer) 57 L (>=60 mL/min/1.73m^2) BUN/Creatinine Ratio 13.1 Glucose 98 (74-106) mg/dL Calcium 9.2 (8.5-10.1) mg/dL Imaging Data CT scan - head: Radiologist's impression: ITS Impressions Head CT 10/05/24 15:59 IMPRESSION: No acute intra-abdominal pathology. There is flattening of the pituitary within the sella consistent with a history of intracranial hypertension. Impression dictated by: Dorian Hopkins M.D. 10/05/2024 4:54 PM Dictation Location: [place] [address] Electronically authenticated by: [id number] Y Date: 10/05/2024 16:54 ECG Data Attestation: I personally reviewed and interpreted this ECG as follows: (EKG on my interpretation shows normal sinus rhythm with rate of 63 and no acute change) Discharge Plan Discharge Chief Complaint: Dizziness Clinical Impression: Tremors of nervous system Patient Disposition: Home, Self-Care Time of Disposition Decision: 17:16 Condition: Good Mode of Transportation: Private Vehicle Prescriptions / Home Meds: No Action cetirizine 10 mg tablet 10 mg PO DAILY dextroamphetamine-amphetamine 20 mg tablet 20 mg PO DAILY montelukast 10 mg tablet 10 mg PO DAILY albuterol sulfate 90 mcg/actuation HFA aerosol inhaler 2 puff INHALATION Q4H PRN (Reason: shortness of breath or wheezing) tizanidine 4 mg tablet 4 mg PO DAILY Print Language: Samoan Instructions: Tremors (ED) Additional Instructions: Dr. Morel recommends restarting the Diamox. He will see you in the morning, call when the office opens. Referrals: Yoan Morel MD [Primary Care Provider, Family Practice] - 1 week
[2024-10-05 16:22] LABS: Basophils Percent Auto 0.3 % (0.2-2.0); Eosinophils Absolute Auto 0.2 10^3/uL (0.0-0.7); Eosinophils Percent Auto 1.6 % (0.9-7.0); Hematocrit 37.3 % (36.0-48.0); Hemoglobin 12.9 g/dL (12.0-16.0); Immature Granulocytes Abs Auto 0.04 10^3/uL (0.00-0.03); Immature Granulocytes Pct Auto 0.3 % (0.0-0.5); Lymphocytes Absolute Auto 3.3 10^3/uL (1.2-3.8); Lymphocytes Percent Auto 25.7 % (20.5-60.0); Mean Corpuscular HGB Conc 34.6 g/dL (29.9-35.2); Mean Corpuscular Hemoglobin 31.3 pg (26.7-34.0); Mean Corpuscular Volume 90.5 fL (81.0-99.0); Mean Platelet Volume 9.1 fL (9.5-13.5); Monocytes Absolute Auto 0.7 10^3/uL (0.3-0.8); Monocytes Percent Auto 5.4 % (1.7-12.0); Neutrophils Absolute Auto 8.6 10^3/uL (1.4-6.5); Neutrophils Percent Auto 66.7 % (43.0-75.0); Platelet Count 284 10^3/uL (150-450); Red Blood Count 4.12 10^6/uL (4.20-5.40); Red Cell Distribution Width 11.7 % (11.0-15.0); White Blood Count 12.9 10^3/uL (4.0-11.0)
[2024-10-05 16:37] LABS: Anion Gap 12.5; BUN Creatinine Ratio 13.1; Calcium 9.2 mg/dL (8.5-10.1); Carbon Dioxide 29.5 mmol/L (21.0-32.0); Chloride 105 mmol/L (98-107); Estimated GFR (African America >60 (>=60 mL/min/1.73m^2); Estimated GFR (Non-African Ame 57 (>=60 mL/min/1.73m^2); Glucose 98 mg/dL (74-106); Sodium 143 mmol/L (136-145)
== END 2024-10-05 17:29 | disposition home or self-care (01) ==
PROVIDERS: Emergency Provider Emergency Medicine; PCP Family Medicine
DX: R25.1 Tremor, unspecified (principal); G93.2 Benign intracranial hypertension
CPT/HCPCS: 36415; 70450; 80048; 85025; 93005; 99285

== ENCOUNTER 2024-10-25 07:32 | Outpatient (OUT) | payer MEDICAID, SELFPAY ==
--- OUTSIDE RECORDS SUMMARY | 2024-10-25 07:43 | XMS_ITS | CCD ---
Author Organization [facility] Care Team Providers [facility] Attendant Name Role Phone Parisa Peacock Unavailable Unavailable ANN KULKARNI Unavailable Unavailable ANN KULKARNI Unavailable Unavailable Samy, Flaquito E Unavailable Unavailable SADIQ, GLO Unavailable Unavailable SADIQ, GLO Unavailable Unavailable Beni Penaloza V Unavailable Unavailable Samy, Flaquito E Unavailable Unavailable Jose Hirsch Unavailable Unavaila Jose Sanders Unavailable Unavaila ble Samy Flaquito E Unavailable Unavailable [employer] Unavailable Unavailable Samy, Flaquito E Unavailable Unavailable Samy, Flaquito E Unavailable Unavailable YOAN IVEY Unavailable Unavailable SIS TORRES Unavailable Unavailable Lisa Johns Unavailable Isabel Redmond Unavailable Brandon Wing Unavailable Fred Goldsmith Unavailable DEJAH Johns Primary Care Provider DEJAH Johns Attending Provider MD Pablo Phipps Attending Provider DO Janina Soria Attending Provider [phone] DO Kat Sosa Emergency Provider [phone] DEJAH Johns Primary Care Provider DO Janina Soria Attending Provider DO Kat Sosa Emergency Provider DEJAH Johns Attending Provider [phone] MD Brandon Wing Other Provider DEJAH Johns Primary Care Provider DEJAH Johns Attending Provider ASAD LISA Primary Care Unavailable DIAB ., TAVO Admitting Unavailable DIAB ., TAVO Attending Unavailable DIAB ., TAVO Consulting Unavailable KARASIK, FADUMO Admitting Unavailable KARASIK, FADUMO Attending Unavailable KAP LISA Primary Care Unavailable KARASIK, FADUMO Consulting Unavailable MAYA, DR KEITH Lackey Consulting Unavailable KARASIK, FADUMO Admitting Unavailable KARASIK, FADUMO Attending Unavailable DR LD RESENDEZ Primary Care Unavailable KARASIK, FADUMO Consulting Unavailable MD Shahid Ritter Emergency Provider [phone] MD Marcel Boo Referring Provider Unavailable Primary Care Provider Unavailmorenita Boo II, Dr. Marcel Tejeda [facility]ending Un[facility] Attending Provider Edward Hernandez [facility] Provider AMISHA Mejia Emergency Provider [phone] DO Kat Sosa Emergency Provider PROVIDER, UNKNOWN Admitting Unavailable PROVIDER, UNKNOWN Attending Unavailable CHANCE VERA Attending Unavailable PROVIDER, UNKNOWN Admitting [facility] Provider AMISHA Mejia Emergency Provider DO Kat Sosa Emergency Provider DO Vanessa Duran Attending Provider Asad [facility] Primary Care Provider DO Curt Novoa Emergency Provider Arpan, [facility]- Eli Tompkins Emergency Provider Unavailable Primary Care Provider Unavailmorenita Johns [facility] Primary Care Provider AMISHA Mejia Emergency Provider VANESSA DURAN Attending Unavailable LD RESENDEZ Referring Unavailable VANESSA DURAN Attending Unavailable VANESSA DURAN Attending Unavailable LD RESENDEZ Referring Unavailable VANESSA DURAN Attending Unavailable VANESSA DURAN Attending Unavailable DEJAH Johnsnifer Primary Care Provider MD Jennifer Art Emergency Provider DEJAH Johns [facility] Primary Care Provider Bull[place], PROFESSIONAL ORGANIZER-BC Eli E Emergency Provider [phone] NO FAMILY, PHYSICIAN Primary Care Provider Unava ilable Bullimore PROFESSIONAL ORGANIZER-BC, Eli E Emergency Provider NO FAMILY, PHYSICIAN Primary Care Provider Unava ilable Unavailable Primary Care Provider Unavailabl e NO FAMILY, PHYSICIAN Primary Care Provider Unava ilable Florencio Guevara DO Attending Provider [phone] Yoan Ivey MD Primary Care Provider Yoan Ivey MD Primary Care Provider Yoan Ivey MD Attending Provider [phone] MARIN, LORAINEMANDO JANEEL Referring Unavailable YOAN IVEY Primary Care Unavailable Shahid Ritter Admitting Unavailable Shahid Ritter Attending Unavailable Yoan Ivey Primary Care Unavailable Jennifer Art Admitting Unavailable Jennifer Art Attending Unavailable Lisa Johns Primary Care Unavailable Florencio Guevara Jr Admitting Unavailable Florencio Guevara Jr Attending Unavailable NO FAMILY, PHYSICIAN Primary Care Unavailable Yoan Ivey Attending Unavailable Yoan Ivey Admitting Unavailable Yoan Ivey Primary Care Unavailable Cindy Winslow Attending Unavailable Sis Verma Admitting Unavailable Janina Soria Consulting Unavailable Yoan Ivey Primary Care Unavailable Mj Garcia Consulting Unavailable Bullimore, Eli E Admitting Unavailable Bullimore, Eli E Attending Unavailable NO FAMILY, PHYSICIAN Primary Care Unavailable Yoan Ivey MD Primary Care Provider Carissa Mejia APRN Emergency Provider Sis Verma DO Admit Provider Cindy Winslow MD Attending Provider [phone] Janina Soria DO Other Provider Radha OAKLEY, Mj Lackey Other Provider Navjot OAKLEY, Shahid Carter Emergency Provider CASSANDRA TINSLEY Referring Unavailable HILL, CASSANDRA ABRAMS Attending Unavailable OSIEL, OSIEL E Attending Unavailable JOSEFA FALK Referring Unavailable HILL, CASSANDRA ABRAMS Referring Unavailable JAYAECKLISANDRO Tompkins Attending Unavailabl e HOY, YOAN M Primary Care Unavailable ASHLYN, RAFY Attending Unavailable HOY, YOAN M Primary Care Unavailable HOY, YOAN M Primary Care Unavailable LLOYD SHERWOOD Attending Unavailable HOY, YOAN M Primary Care Unavailable ZENAIDA CABRERA Attending Unavailable FAITH WEIR Attending Unavailable HOY, YOAN M Primary Care Unavailable HOY, YOAN M Primary Care Unavailable ZENAIDA CABRERA Attending Unavailable HOY, YOAN M Primary Care Unavailable ALLAN ROYAL Attending Unavailable HOY, YOAN M Primary Care Unavailable SERGEI HARRINGTON Attending Unavailable HOY, YOAN M Primary Care Unavailable HOY, YOAN M Primary Care Unavailable SELF Referring Unavailable LISANDRO GONSALEZ Referring Unavailabl e HOY, YOAN M Primary Care Unavailable HOY, YOAN M Primary Care Unavailable WILMAN, ALEM Referring Unavailable ASHLYN, RAFY Referring Unavailable HILLCASSANDRA Attending Unavailable HOY, YOAN M Primary Care Unavailable EMILEE ROCA Referring Unavailable JOSEFA FALK Attending Unavailable WILMAN, ALEM Referring Unavailable ASHLYN, RAFY Referring Unavailable EMILEE ROCA Attending Unavailable ASHLYN, RAFY Referring Unavailable TAMANNA BARRY Attending Unavailable ANGIE ALVARADO Referring Unavailable HANK MERIDA Attending Unavailable HOY, YOAN M Primary Care Unavailable LLOYD SHERWOOD Referring Unavailable HOY, YOAN M Primary Care Unavailable ASHLYN, RAFY Referring Unavailable LLOYD SHERWOOD Attending Unavailable HOY, YOAN M Primary Care Unavailable ZENAIDA CABRERA Attending Unavailable OSIEL, OSIEL E Referring Unavailable HILL, CASSANDRA ABRAMS Referring Unavailable HILL, CASSANDRA ABRAMS Attending Unavailable HOY, YOAN M Primary Care Unavailable HOY, YOAN M Primary Care Unavailable HOY, YOAN M Primary Care Unavailable YOAN IVEY Primary Care Unavailable ZENAIDA CABRERA Attending Unavailable YOAN IVEY Primary Care Unavailable LLOYD SHERWOOD Attending Unavailable EMILEE ROCA Attending Unavailable EMILEE ROCA Referring Unavailable Allergies Allergy Classification Reported Allergen(s) Allergy Type Date of Onset Reaction(s) Facility Latex (2 sources) Latex Substance Allergy 08-31-19 [facility] nickel (2 sources) nickel Drug Allergy 08-31-[address] [facility] Opioid Agonists (2 sources) oxyCODONE Drug Allergy 10-16-[address] [facility] silk allergenic extract (2 sources) silk allergenic extract Drug Allergy 08-31-19 Other: See Comments [facility] Sulfonamides (antibiotic) (2 sources) sulfADIAZINE Drug Allergy 09-29-[address] [facility] (1 source) YES - ALLERGIES EXIST; Translations: [YES - ALLERGIES EXIST] Propensity to adverse reactions (disorder) [facility] Repository (20 sources) Acetaminophen / oxyCODONE Drug Allergy 03-11-20 12 Unknown, Rash [facility] [employer] Other (20 sources) Sulfamethoxazole / Trimethoprim Drug Allergy 12-25-19 24 Unknown, Swelling [facility] [employer] Other (18 sources) sulfaSALAzine Drug Allergy Unknown [employer] Other (20 sources) wiley Propensity to adverse reactions Unknown [facility] [employer] Other (20 sources) silk tape and latex Propensity to adverse reactions Unknown [facility] [employer] Other (20 sources) Latex; Translations: [latex] Allergy to substance 08-31-19 [facility] (20 sources) nickel; Translations: [Nickel] Drug Allergy 08-31-19 Rash, [facility] (20 sources) oxyCODONE; Translations: [OXYCODONE] Drug Allergy 10-16-19 [facility] (20 sources) Silk adhesive tape Allergy to substance 05-11-19 [facility] (20 sources) Sulfonamides (Antibiotic) Allergy to substance 10-16-19 [facility] (6 sources) Sulfonamide Drug allergy Unknown [facility] [employer] Other (20 sources) Substance with sulfonamide structure and antibacterial mechanism of action (substance) Drug allergy 07-09-19 24 Unknown [facility] [employer] Other (3 sources) Acetaminophen / oxyCODONE; Translations: [PERCOCET] Drug Allergy 08-31-19 17 [facility] Repository (3 sources) Silk; Translations: [SILK] Drug allergy (disorder) 08-31-19 17 [facility] (1 source) Sulfonamides (Antibiotic) Drug allergy (disorder) 08-31-19 17 [facility] (20 sources) silk allergenic extract Drug Allergy 08-31-19 17 Other: See Comments [facility] (10 sources) Adhesive Tape Drug allergy rash [facility] [employer] Other (1 source) Sulfonamides (Antibiotic); Translations: [SULFA ANTIBIOTICS] Propensity to adverse reactions to drug (disorder) 07-09-19 [facility] [facility] (8 sources) Acetaminophen; Translations: [ACETAMINOPHEN] Drug Allergy 07-29-19 Hives, Itching [facility] (2 sources) Adhesive Tape Allergy to substance 07-29-19 [facility] (20 sources) sulfADIAZINE; Translations: [SULFADIAZINE] Drug Allergy 09-29-19 [facility] (20 sources) Adhesive agent; Translations: [ADHESIVE] Drug Allergy 03-11-20 12 [facility] (20 sources) Adhesive Tape; Translations: [ADHESIVE TAPE (ROSINS)] Allergy to substance [facility]-11-19 [facility] levoFLOXacin; Translations: [LEVOFLOXACIN] Drug Allergy 04-05-20 24 [facility] Work Phone: (2 sources) Acetaminophen / oxyCODONE; Translations: [OXYCODONE-ACETAMIN OPHEN] Drug Allergy 03-11-[address] [facility] Other [place] Repository (2 sources) Sulfamethoxazole / Trimethoprim; Translations: [SULFAMETHOXAZOLE-T RIMETHOPRIM] Drug Allergy 12-25-19 [facility] Repository (8 sources) Morphine; Translations: [MORPHINE] Drug Allergy 10-05-19 Angioedema [facility] Medications Current Medications Medication Drug Class(es) Dates Sig (Normalized) Sig (Original) 0.5 ML semaglutide 0.5 MG/ML Auto-Injector [Wegovy] (2 sources) Start: 09-12-2021 inject 0.5 mL by subcutaneous injection every week Wegovy 0.25 MG/0.5ML 0.5 ml Subcutaneous Weekly for 30 days September, Active 12 hr acetaZOLAMIDE 500 mg extended release oral capsule (20 sources) Carbonic Anhydrase Inhibitor Start: 10-05-2024 End: 11-04-2024 take 1 capsule by mouth twice daily acetaZOLAMIDE SR (DIAMOX SEQUELS) 500 mg capsule Indications: IIH (idiopathic intracranial hypertension) Take 1 capsule by mouth two times a day. 60 capsule 4 10/05/2024 11/04/2024 Active Start: 09-21-2024 End: 12-20-2024 take 3 tablets by mouth once daily in the morning, then take 3 tablets by mouth once daily at bedtime acetaZOLAMIDE (DIAMOX) 250 mg tablet Take 3 tablets by mouth every morning AND 3 tablets daily at bedtime. 540 tablet 09/21/2024 10/05/2024 Discontinued (Side Effects) Start: 07-04-2024 End: 10-02-2024 take 2 tablets by mouth once daily in the morning, then take 3 tablets by mouth once daily at bedtime acetaZOLAMIDE (DIAMOX) 250 mg tablet Take 2 tablets by mouth every morning AND 3 tablets daily at bedtime. 150 tablet 2 07/04/2024 09/21/2024 Discontinued Start: 06-03-2024 End: 09-01-2024 take 1 capsule by mouth twice daily acetaZOLAMIDE SR (DIAMOX SEQUELS) 500 mg capsule Take 1 capsule by mouth two times a day. 60 capsule 2 06/03/2024 07/04/2024 Discontinued Start: 04-05-2024 End: 06-03-2024 acetaZOLAMIDE (DIAMOX) 250 m g tablet Indications: IIH (idiopathic intracranial hypertension) 500 mg AM; 250 mg PM 90 tablet 5 04/05/2024 06/03/2024 Discontinued Start: 10-09-2023 End: 09-30-2024 take 1 tablet by mouth twice daily in the morning, then take 2 tablets by mouth in the evening Acetazolamide 250 mg tablet Discontinued 250 MG PO Twice daily January 29, 2024 8:27am September 30, 2024 10:29am Takes 250 mg in am, 500 mg in pm Start: 02-12-2022 End: 07-20-2023 take 1 tablet by mouth once daily Acetazolamide 250 mg Tablet Discontinued 250 MG PO Daily February 12, 2022 12:00am July 20, 2023 8:47am take 1 tablet by fiorelal th twice daily acetaZOLAMIDE 250 MG 1 tab Orally twice daily Active [id number] 200 actuat albuterol 0.09 mg/actuat metered dose inhaler (20 sources) beta2-Adrenergic Agonist Start: 09-29-2023 End: 11-23-2023 take 2 puff(s) by mouth every four hours as needed Albuterol Sulfate (Ventolin Hfa) 90 mcg/actuation HFA aerosol inhaler Active 0 .ROUTE .COMPLEX 54 November 23, 2023 1:57pm INHALE 2 PUFFS BY MOUTH EVERY 4 HOURS NEEDED Start: 09-28-2023 End: 09-29-2023 take 2 puff(s) by inhalation every four hours as needed for cough Albuterol Sulfate (Ventolin Hfa) 90 mcg/actuation HFA aerosol inhaler Discontinued INHALATION September 28, 2023 12:00am September 29, 2023 7:38am [employer] puffs as needed Inhalation every 4 hrs PRN shortness of breath, wheezing, or cough; Note: Source Status: Taking; Refills: 1; Provider: Asad Greenwood Start: 04-14-2022 take 2 puff(s) by [...] as needed for bronchospasm March 24, 2021 1:00am February 12, 2022 10:52pm Start: 05-11-2019 End: 02-12-2022 take 1 mL by inhalation every six hours as needed Albuterol Sulfate 2.5 mg /3 mL (0.083 %) solution for nebulization Discontinued 3 ML INHALATION Q6H as needed for Shortness Of Breath May 11, 2019 1:00am February 12, 2022 10:52pm Start: 05-11-2019 End: 05-11-2019 Albuterol Sulfate 90 mcg/act uation HFA aerosol inhaler Discontinued May 11, 2019 1:00am May 11, 2019 11:10am Start: 11-20-2018 End: 02-12-2022 take 1 puff(s) by inhalation every four to six hours as needed Albuterol Sulfate 90 mcg/actuation Hfa Aerosol Inhaler Discontinued 2 PUFF INHALATION EVERY 4-6 HOURS as needed for Bronchospasm November 20, 2018 12:00am February 12, 2022 10:52pm Start: 07-26-2018 take 1-2 puff(s) by inhalation [...] for shortness of breath or wheezing October 05, 2017 12:00am December 18, 2017 10:05pm administer with spacer take 2 puff(s) by in halation every six hours as needed Proventil HFA 108 (90 Base) MCG/ACT 2 puffs as needed Inhalation every 6 hrs Active amoxicillin 875 mg / clavulanate 125 mg oral tablet (9 sources) Penicillin-class Antibacterial Start: 09-23-2024 take 1 tablet by mouth twice daily amoxicillin-clavulanate potassium (AUGMENTIN) 875-125 mg per tablet Take 1 tablet by mouth two times a day. 09/23/2024 Active Start: 02-13-2022 take 1 tablet by fiorella th every twelve hours Augmentin 875-125 MG 1 tablet Orally every 12 hrs for 10 days Feb, Active amphetamine aspartate 5 mg / amphetamine sulfate 5 mg / dextroamphetamine saccharate 5 mg / dextroamphetamine sulfate 5 mg oral tablet (20 sources) Central Nervous System Stimulant Start: 09-28-2024 take 1 tablet by mouth once daily Dextroamphetamine-Amphetamine 20 mg tablet Active 20 MG PO Daily September 28, 2024 12:00am atogepant (QULIPTA) 60 mg tablet (8 sources) Start: 10-07-2024 End: 01-05-2025 take 1 tablet by mouth once daily atogepant (QULIPTA) 60 mg tablet Indications: Migraine without aura, not intractable, without status migrainosus Take 1 tablet by mouth once daily. 30 tablet 2 10/07/2024 01/05/2025 Active benoxinate hydrochloride 4 mg/ml / fluorescein sodium 3 mg/ml ophthalmic solution (5 sources) Diagnostic Dye Start: 09-28-2024 End: 10-10-2024 fluorescein-benoxinate 0.3-0 .4 % 1 drop (FLURESS) Start: 12-25-2023 End: 12-25-2023 fluorescein-benoxinate 0.3-0 .4 % 1 Drop (FLURESS) Calcium (6 sources) Phosphate Binder, Calcium calcium 26/magnesium 15/zinc ([id number] COMPLEX ORAL) Take by mouth once daily. Patient does not know dosing Active chlorzoxazone 500 mg oral tablet (8 sources) Muscle Relaxant Start: End: take 1 tablet by mouth three times daily chlorzoxazone (PARAFON FORTE DSC) 500 mg tablet Indications: Chronic migraine without aura without status migrainosus, not intractable Take 1 tablet by mouth three times a day for 5 days. 15 tablet 09/13/2024 09/13/2024 Discontinued Start: 06-03-2024 End: 06-08-2024 take 1 tablet [...] with Zanaflex 15 tablet 05/30/2024 06/03/2024 Discontinued 12 hr dextromethorphan hydrobromide 30 mg / guaiFENesin 600 mg extended release oral tablet (2 sources) Uncompetitive U-hrtjxv-F-aspartate Receptor Antagonist, Sigma-1 Agonist Start: 11-19-2021 take 1 tablet by mouth every twelve hours Mucinex DM 30-600 MG 1 tablet as needed Orally every 12 hrs for 14 days Nov, Active diclofenac sodium 0.01 mg/mg topical gel (12 sources) Nonsteroidal Anti-inflammatory Drug Start: 06-14-2024 End: 09-12-2024 diclofenac (VOLTAREN ARTHRITIS PAIN) 1 % topical gel Indications: Polyarthralgia Apply 2 g to affected area four times daily. 240 g 2 06/14/2024 09/12/2024 Active iv contrast (will be provided with radiology [...] Active ketorolac tromethamine 10 mg oral tablet (19 sources) Nonsteroidal Anti-inflammatory Drug, Cyclooxygenase Inhibitor Start: 09-23-2024 End: 09-28-2024 take 1 tablet by mouth three times daily at mealtime keTORolac (TORADOL) 10 mg tablet Indications: IIH (idiopathic intracranial hypertension) , Chronic migraine without aura without status migrainosus, not intractable Take 1 tablet by mouth three times a day with meals for 5 days. Take with food. Do not take any OTC pain relievers while taking. 15 tablet 09/23/2024 09/28/2024 Active Start: 02-08-2024 End: 09-28-2024 take 1 tablet by mouth every six hours as needed for pain Ketorolac 10 mg tablet Discontinued 10 MG PO Q6H as needed for pain February 08, 2024 12:00am September 28, 2024 5:08pm Start: 08-25-2023 End: 10-04-2023 take 1 tablet by mouth every six hours as needed for pain Ketorolac 10 mg tablet Discontinued 10 MG PO Q6H as needed for pain August 25, 2023 12:00am October 04, 2023 3:48pm Magnesium (2 sources) Start: 09-28-2024 Magnesium 200 mg tablet Active 420 MG PO Daily September 28, 2024 12:00am melatonin/thean/lemon/david/l av (SLEEP CALM ORAL) (5 sources) [...] Daily July 02, 2018 1:00am Multivitamin Tablet (5 sources) Start: 07-02-2018 take 1 tablet by mouth once daily Multivitamin Tablet Active 1 TAB PO Daily July 02, 2018 1:00am Start: 07-02-2018 take 1 tablet by fiorella th once daily Multivitamin Tablet Active 1 TAB PO Daily July 02, 2018 12:00am mv,calcium,min/iron/folic/vi tK (MULTI FOR HER ORAL) (20 sources) mv,calcium,min/i charlene/folic/vitK (MULTI FOR HER ORAL) Active mv,calcium,min/i charlene/folic/vitK (MULTI FOR HER ORAL) Nasonex 50 MCG/ACT (3 sources) Start: 05-14-2023 [...] (DEFINITY) phenylephrine hydrochloride 25 mg/ml ophthalmic solution (11 sources) alpha-1 Adrenergic Agonist Start: 09-28-2024 End: 10-10-2024 PHENYLephrine 2.5 % 1 drop (AK-DILATE, ANTHONY-SYNEPHRINE) Start: 06-14-2024 End: 06-26-2024 PHENYLephrine 2.5 % 1 Drop ( AK-DILATE, ANTHONY-SYNEPHRINE) Start: 06-14-2024 End: 06-26-2024 1 Drop, BOTH EYES, DIRECT ED, Starting on Thu06/14/24 at 0846, Until 06/26/24 at 0845, Administer for dilation PROTECT FROM LIGHT, OPHT CLINIC MED ORDERS Start: 12-25-2023 End: 12-25-2023 PHENYLephrine 2.5 % 1 Drop ( AK-DILATE, ANTHONY-SYNEPHRINE) potassium chloride 10 meq extended release oral capsule (2 sources) Start: 09-30-2024 take 1 capsule by mouth once daily Potassium Chloride 10 mEq capsule, extended release Active 10 MEQ PO Daily September 30, 2024 12:00am POTASSIUM-99 ORAL (14 sources) POTASSIUM-99 ORA L Take by mouth. Active predniSONE 20 mg oral tablet (20 sources) Start: 09-20-2024 End: 09-28-2024 predniSONE (DELTASONE) 20 mg tablet Take 2 tablets (40 mg) twice daily for 2 days (80 mg total in a day) THEN Take 1.5 tablets (30 mg) twice daily for 2 days (60 mg total in a day)THEN Take 1 tablet (20 mg) twice daily for 2 days (40 mg total in a day) THEN Take 0.5 tablets twice daily for 2 days (20 mg total in a day) then DONE 20 tablet 09/20/2024 09/28/2024 Active Start: 03-19-2024 End: 09-28-2024 Prednisone 10 mg tablet Discontinued 0 PO daily 20 March 19, 2024 1:00am September 28, 2024 5:08pm 4 tablets x2 days, then 3 tab x2 days, then 2 tab x2 days, then 1 tab x2 days orally daily; Start: 08-25-2023 End: 10-04-2023 take 1 tablet by mouth once daily at mealtime Prednisone 50 mg tablet Discontinued 50 MG PO Daily 09 12August 25, 2023 12:00am October 04, 2023 3:48pm administer with food or milk Start: 05-14-2023 [...] March 24, 2021 12:37pm Start: 05-11-2019 End: 03-24-2021 take 40 mg by mouth once daily Prednisone Discontinued 40 MG PO Daily May 11, 2019 11:09am March 24, 2021 12:37pm Start: 05-11-2019 End: 05-11-2019 Prednisone 20 mg tablet Discontinued TABLET May 11, 2019 1:00am May 11, 2019 11:10am Start: 11-20-2018 End: 05-11-2019 take 60 mg by mouth once daily Prednisone Discontinued 60 MG PO Daily November 20, 2018 12:00am May 11, 2019 11:10am Start: 07-26-2018 End: 05-11-2019 take 3 tablets by mouth once daily Prednisone 20 mg tablet Discontinued 60 MG PO Daily November 20, 2018 12:00am May 11, 2019 11:10am Start: 10-05-2017 End: 10-10-2017 take 3 tablets by mouth once daily at mealtime Prednisone 20 mg tablet Discontinued 60 MG PO Daily 15 October 05, 2017 12:00am October 09, 2017 12:00am October 10, 2017 12:02am administer with food or milk Start: 10-05-2017 End: 10-10-2017 take 60 mg by mouth once daily at mealtime Prednisone Discontinued 60 MG PO Daily 15 October 05, 2017 12:00am October 10, 2017 12:02am administer with food or milk ProAir HFA 108 (90 Base) MCG/ACT (2 sources) Start: 04-08-2022 take 2 puff(s) by inhalation every four hours as needed for cough ProAir HFA 108 (90 Base) MCG/ACT 2 puffs as needed Inhalation every 4 hrs prn cough/wheezing/shortness of breath for 30 days Mar, Active proparacaine hydrochloride 5 mg/ml ophthalmic solution (10 sources) Local Anesthetic Start: 09-28-2024 End: 10-10-2024 proparacaine 0.5 % 1 drop (ALCAINE) Start: 06-14-2024 End: 06-26-2024 proparacaine 0.5 % 1 Drop (A LCAINE) Start: 12-25-2023 End: 12-25-2023 proparacaine 0.5 % 1 Drop (A LCAINE) Semaglutide Base (1 source) Start: 01-29-2024 inject [...] 0.9 % (flush) 10 mL (BD POSIFLUSH) tiZANidine 4 mg oral tablet (20 sources) [...] needed for Leg Tingling March 24, 2021 1:00am July 20, 2023 8:48am Zanaflex prn Not -Taking Zanaflex prn Act maddy Zanaflex Active tropicamide 10 mg/ml ophthalmic solution (11 sources) Anticholinergic Start: 09-28-2024 End: 10-10-2024 tropicamide 1 % 1 drop (MYDRIACYL) Start: 06-14-2024 End: 06-26-2024 tropicamide 1 % 1 Drop (MYDR IACYL) Start: 06-14-2024 End: 06-26-2024 1 Drop, BOTH EYES, DIRECT ED, Starting on Thu06/14/24 at 0846, Until 06/26/24 at 0845, Administer for dilation, OPHT CLINIC MED ORDERS Start: 12-25-2023 End: 12-25-2023 tropicamide 1 % 1 Drop (MYDR IACYL) 24 hr divalproex sodium 500 mg extended release oral tablet (8 sources) Mood Stabilizer, Anti-epileptic Agent Start: 10-07-2024 End: 10-17-2024 take 2 tablets by mouth once daily, then take 1 tablet by mouth once daily divalproex ER (DEPAKOTE ER) 500 mg 24 hr tablet Take 2 tablets by mouth once daily for 5 days, THEN 1 tablet once daily for 5 days. 15 tablet 10/07/2024 10/17/2024 Active zinc gluconate 50 mg oral tablet (7 sources) Start: 01-29-2024 take 1 tablet by mouth once daily Zinc Gluconate 50 mg tablet Active 50 MG PO Daily January 29, 2024 12:00am zonisamide 25 mg oral capsule (4 sources) Anti-epileptic Agent Start: 08-24-2024 End: 12-13-2024 take 1 capsule by mouth once daily, then take 2 capsules by mouth once daily, then take 3 capsules by mouth once daily, then take 4 capsules by mouth once daily zonisamide (ZONEGRAN) 25 mg capsule Take 1 capsule by mouth once daily for 7 days, THEN 2 capsules once daily for 7 days, THEN 3 capsules once daily for 7 days, THEN 4 capsules once daily. 402 capsule 08/24/2024 09/21/2024 Discontinued Completed/Discontinued Medications Medication Drug Class(es) Dates Sig [...] / HYDROcodone bitartrate 5 mg oral tablet (13 sources) Opioid Agonist Start: 07-29-2023 End: 08-25-2023 take 2 tablets by mouth every six hours as needed for pain Hydrocodone-Acetaminophen 5-325 mg tablet Discontinued 2 TAB PO Q6H as needed for pain 40 7 July 29, 2023 August 25, 2023 12:05pm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 Translations: [Paresthesia of bilateral legs] Onset: 08-04-2024 Episodic Other nervous system disorders (1 source) Anesthesia of skin; Translations: [Anterior thigh numbness] Onset: 08-04-2024 Episodic Other non-traumatic joint disorders (7 sources) Palindromic rheumatism; 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, 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-2024 Chronic Other non-traumatic joint disorders (3 sources) Palindromic rheumatism, unspecified site; 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, site unspecified] 01-29-2024 Chronic Other non-traumatic joint disorders (8 sources) Multiple joint pain; Translations: [Pain in [...] Episodic Other nutritional; endocrine; and metabolic disorders (7 sources) Body mass index 25-29 - overweight; Translations: [Overweight] 01-29-2024 Episodic Other nutritional; endocrine; and metabolic disorders (7 sources) Abnormal weight gain; Translations: [Abnormal weight gain] 01-29-2024 Episodic Other nutritional; endocrine; and metabolic disorders (7 sources) Overweight in adulthood with body mass index of 25 or more but less than 30; Translations: [Body mass index (BMI) 29.0-29.9, adult] 01-29-2024 Episodic Other nutritional; endocrine; and metabolic disorders (3 sources) Body mass index (BMI) 29.0-29.9, adult; Translations: [Body Mass Index 29.0-29.9, adult] 01-29-2024 Episodic Other nutritional; endocrine; and metabolic disorders (3 sources) Overweight; Translations: [Overweight] 01-29-2024 Episodic Other upper respiratory infections (20 sources) [...] [Other acquired absence of organ] 01-29-2024 Episodic Residual codes; unclassified (1 source) Multiple symptoms; Translations: [Other general symptoms and signs] 08-05-2024 Episodic Spondylosis; intervertebral disc disorders; other back problems (20 sources) Degeneration of lumbar intervertebral disc; Translations: [Other intervertebral disc degeneration, lumbar region] Onset: 05-20-2024 Chronic Sprains and strains (12 sources) Whiplash injury to neck; Translations: [Sprain of ligaments of cervical spine, initial encounter] 02-08-2024 Episodic Substance-related disorders (10 sources) History of drug abuse; Translations: [Other psychoactive substance abuse, in remission] 01-29-2024 Chronic Comment on above: Methamphetamines onl y Superficial injury; contusion (1 source) Metal foreign body in abdomen; Translations: [Superficial foreign body of abdominal wall, initial encounter] 10-08-2023 Episodic Unclassified (1 source) Unknown / UNK(Unknown) Onset: 02-12-2017 Unclassified (1 source) Intractable chronic migraine with aura with status migrainosus; Translations: [Intractable chronic migraine with aura with status migrainosus] Onset: 10-12-2024 Unclassified (1 source) Degeneration of intervertebral disc [...] Date Episodic/Chronic Asthma (20 sources) Asthma 11-20-2018 Calculus of urinary tract (17 sources) History of calculus of kidney; Translations: [Personal history of urinary calculi] Onset: 07-01-2024 01-29-2024 Episodic Cardiac dysrhythmias (2 sources) Palpitations; Translations: [...] Pain in unspecified joint; Translations: [Polyarthralgia] Onset: 05-20-2024 Episodic Other screening for suspected conditions (not mental disorders or infectious disease) (20 sources) Encounter for screening for malignant neoplasm of cervix; Translations: [Abnormal electrocardiogram [ECG] [EKG]] Onset: 10-23-2021 Episodic Residual codes; unclassified (1 source) Personal history of other specified conditions Onset: 08-21-2021 Resolved: 08-21-2021 Episodic Spondylosis; intervertebral disc disorders; other back problems (20 sources) Lumbago with sciatica, right side; Translations: [Neck pain] Onset: 02-12-2017 Resolved: 01-01-2022 Episodic Unclassified (1 source) BACK/ R LEG PAIN R ARM NUMBNESS Onset: 02-12-2017 Unclassified (1 source) Intracranial hypotension G96.810 Onset: 01-16-2022 Resolved: 01-16-2022 Results Test Name Value Interpretation Reference Range Facility [facility] 10-13-2024 [facility] Telephone ([facility]) -------- KAROLINA NICOLE ([id number]) 1985 F Date Time Provider Department 10/13/24 SERGEI HARRINGTON [facility] During your visit today, we recorded the following information about you: Pavel King 10/13/2024 4:34 PM Signed Received outside medical records Uploaded into [employer] Allergies As of Date: 10/13/2024 Noted Allergy Reaction ADHESIVE 03/11/2012 2 - Rash LATEX 08/30/2016 2 - Rash LEVAQUIN (LEVOFLOXACIN) 04/05/2024 7 - Swelling Comments: Swelling tongue MORPHINE 10/10/2024 18 - Angioedema Comments: Says tongue swells up, vomits, chest pain NICKEL 08/30/2016 2 - Rash 16 - Unknown OXYCODONE 10/15/2020 2 - Rash OXYCODONE-ACETAMINOPHEN 03/11/2012 2 - Rash SILK 08/30/2016 14 - Other: See Comments Comments: Silk tape SULFADIAZINE 09/29/2023 2 - Rash SULFAMETHOXAZOLE-TRIMETH OPRIM 12/25/2023 7 - Swelling ADHESIVE TAPE (ROSINS) 05/11/2019 4 - Hives 9 - Itching Date Reviewed: 10/12/2024 Reviewed by: Sergei Harrington APRN.PARIMUTUEL CLERK - Fully Assessed Reason for Visit: Received Outside Medical Records [[id number]] Prescriptions as of 10/13/2024 - tiZANidine (ZANAFLEX) 4 mg tablet 1 tablet at bedtime as needed Orally Once a day - calcium 26/magnesium 15/zinc (WVBXIUM-GVYRCBRYU-ZKDG COMPLEX ORAL) Take by mouth once daily. Patient does not know dosing - amoxicillin-clavulanate potassium (AUGMENTIN) 875-125 mg per tablet Take 1 tablet by mouth two times a day. - divalproex ER (DEPAKOTE ER) 500 mg 24 hr tablet Take 2 tablets by mouth once daily for 5 days, THEN 1 tablet once daily for 5 days. - atogepant (QULIPTA) 60 mg tablet Take 1 tablet by mouth once daily. - acetaZOLAMIDE SR (DIAMOX SEQUELS) 500 mg capsule Take 1 capsule by mouth two times a day. - POTASSIUM-99 ORAL Take by mouth. - hydrOXYzine pamoate (VISTARIL) 50 mg capsule Take 50 mg by mouth daily at bedtime. - dextroamphetamine-amphet amine (ADDERALL) 20 mg tablet Take 20 mg by mouth once daily. - Cetirizine 10 mg cap - mv,calcium,min/iron/foli c/vitK (MULTI FOR HER ORAL) Problem List As Of Date 10/13/2024 Noted Resolved Migraine without aura, not intractable, without*10/07/2024 Encounter Status:Closed by PAVEL KING on 10/13/24 [facility] CNOVon 10-12-2024 CNOV Office Visit ([facility]MNS2 ) -------- KAROLINA NICOLE ([id number]) 1985 F Date Time Provider Department 10/12/24 11:00 AM SERGEI HARRINGTON [facility]2 During your visit today, we recorded the following information about you: Sergei Harrington APRN.CNP 10/12/2024 11:15 AM Signed [facility] Note Subjective: Karolina Nicole is a 39 year old year old female presenting for day 3 of infusions. Therapy Plan: DHE zofran magnesium robaxin New health conditions since orders were placed: No Cardiovascular risk factors: None Triptan dose in the last 24 hours: No Last muscle relaxer dose: No Last NSAID dose: No Response to infusions: Patient tolerating infusion without side effects. Current Preventative: diamox, qulipta Current abortive: tizanidine Labs: Latest Ref Rng AND Units 09/22/2024 CBC WBC 3.70 - 11.00 k/uL 14.59 RBC 3.90 - 5.20 m/uL 4.23 Hemoglobin 11.5 - 15.5 g/dL 13.3 Hematocrit 36.0 - 46.0 % 36.2 MCV 80.0 - 100.0 fL 85.6 MCH 26.0 - 34.0 pg 31.4 MCHC 30.5 - 36.0 g/dL 36.7 RDW-CV 11.5 - 15.0 % 12.1 Platelet Count 150 - 400 k/uL 330 MPV 9.0 - 12.7 fL 9.5 Baso% % 0.1 Abs Neut (ANC) 1.45 - 7.50 k/uL 12.90 Abs Lymph 1.00 - 4.00 k/uL 1.24 Abs [place] <0.87 k/uL 0.29 Abs Eosin <0.46 k/uL <0.03 Abs Baso <0.11 k/uL <0.03 NRBC /100 WBC 0.0 Latest Ref Rng AND Units 09/22/2024 CMP Sodium 136 - 144 mmol/L 138 Potassium 3.7 - 5.1 mmol/L 3.6 Chloride 98 - 107 mmol/L 109 CO2 22 - 30 mmol/L 14 Glucose 74 - 99 mg/dL 162 BUN 7 - 21 mg/dL 20 Creatinine 0.58 - 0.96 mg/dL 0.75 EGFR >=60 mL/min/1.73m? 104 Calcium 8.5 - 10.2 mg/dL 9.3 ALLERGIES Allergen Reactions Adhesive Rash Latex Rash Levaquin [Levofloxa* Swelling Swelling tongue Morphine Angioedema Says tongue swells up, vomits, chest pain Nickel Rash, Unknown Oxycodone Rash Oxycodone-Acetamino* Rash Silk Other: See Comments Silk tape Sulfadiazine Rash Sulfamethoxazole-Tr* Swelling Adhesive Tape (Cammie* Hives, Itching Current Medications: tiZANidine (ZANAFLEX) 4 mg tablet1 tablet at bedtime as needed Orally Once a dayDisp: Rfl: calcium 26/magnesium 15/zinc (RMMUPNC-PKWBHRIWJ-RKUT COMPLEX ORAL)Take by mouth once daily. Patient does not know dosingDisp: Rfl: amoxicillin-clavulanate potassium (AUGMENTIN) 875-125 mg per tabletTake 1 tablet by mouth two times a day.Disp: Rfl: divalproex ER (DEPAKOTE ER) 500 mg 24 hr tabletTake 2 tablets by mouth once daily for 5 days, THEN 1 tablet once daily for 5 days.Disp: 15 tabletRfl: 0 atogepant (QULIPTA) 60 mg tabletTake 1 tablet by mouth once daily.Disp: 30 tabletRfl: 2 acetaZOLAMIDE SR (DIAMOX SEQUELS) 500 mg capsuleTake 1 capsule by mouth two times a day.Disp: 60 capsuleRfl: 4 estrogens, conjugated (PREMARIN ORAL)Take by mouth.Disp: Rfl: POTASSIUM-99 ORALTake by mouth.Disp: Rfl: estradiol (ESTRACE) 0.5 mg tabletTake 1 tablet by mouth once daily.Disp: Rfl: hydrOXYzine pamoate (VISTARIL) 50 mg capsuleTake 50 mg by mouth daily at bedtime.Disp: Rfl: dextroamphetamine-amphet amine (ADDERALL) 20 mg tabletTake 20 mg by mouth once daily.Disp: Rfl: (Patient taking differently: Take 20 mg by mouth two times a day.) Zinc Acetate, Oral, 50 mg (zinc) capTake 50 capsules by mouth once daily.Disp: Rfl: (Patient not taking: Reported on 10/10/2024) Cetirizine 10 mg capDisp: Rfl: mv,calcium,min/iron/foli c/vitK (MULTI FOR HER ORAL)Disp: Rfl: montelukast (SINGULAIR) 10 mg tabletMontelukast Active 10 MG PO Daily March 24, 2021 12:00amDisp: Rfl: (Patient not taking: Reported on 10/10/2024) Review of Systems: Review of system: Patient reports no change from the prior visit. Objective: VS: see infusion note for vital signs General: well appearing, in no acute distress, alert Neurological: Pain Behaviors: no pain behaviors observed Mental Status: Alert and oriented to person, place and time. Affect is normal and appropriate. Speech is spontaneous and fluent without dysarthria, normal in rate, volume and articulation, and clear, coherent, and relevant. Short and custodial memory, cognition and general fund of knowledge are good. Attention span and concentration are good. Cranial Nerves: VII-face is symmetric without evidence of weakness. VIII-hearing intact. Assessment: (G43.E11) Intractable chronic migraine with aura with status migrainosus (primary encounter diagnosis) (G93.2) Idiopathic intracranial hypertension Plan: Karolina Nicole is a 39 year old year old female, with a history of IIH, chronic migraines and cervicalgia following up today for day 3 of infusions. Follow up plan: Hold Triptans on infusion days or within 24 hours of infusion. Hold Muscle relaxers on infusion days or within 24 hours of infusion. Level of service: Est level 2 (10-19 min). Time spent 15 min on the day of service, which included preparing to see the patient, [id number] patie (more content not included)... [facility] CNOV Office Visit (NIQ) -------- KAROLINA NICOLE ([id number]) 1985 F Date Time Provider Department 10/12/24 SERGEI HARRINGTON NIQ During your visit today, we recorded the following information about you: Allergies As of Date: 10/12/2024 Noted Allergy Reaction ADHESIVE 03/11/2012 2 - Rash LATEX 08/30/2016 2 - Rash LEVAQUIN (LEVOFLOXACIN) 04/05/2024 7 - Swelling Comments: Swelling tongue MORPHINE 10/10/2024 18 - Angioedema Comments: Says tongue swells up, vomits, chest pain NICKEL 08/30/2016 2 - Rash 16 - Unknown OXYCODONE 10/15/2020 2 - Rash OXYCODONE-ACETAMINOPHEN 03/11/2012 2 - Rash SILK 08/30/2016 14 - Other: See Comments Comments: Silk tape SULFADIAZINE 09/29/2023 2 - Rash SULFAMETHOXAZOLE-TRIMETH OPRIM 12/25/2023 7 - Swelling ADHESIVE TAPE (ROSINS) 05/11/2019 4 - Hives 9 - Itching Date Reviewed: 10/12/2024 Reviewed by: Sergei Harrington APRN.PARIMUTUEL CLERK - Fully Assessed Primary Visit Diagnosis:Migraine without aura, not intractable, without status migrainosus [G43.009] Prescriptions as of 10/13/2024 - tiZANidine (ZANAFLEX) 4 mg tablet 1 tablet at bedtime as needed Orally Once a day - calcium 26/magnesium 15/zinc (QVADUUN-JOGQGVNNF-GQIJ COMPLEX ORAL) Take by mouth once daily. Patient does not know dosing - amoxicillin-clavulanate potassium (AUGMENTIN) 875-125 mg per tablet Take 1 tablet by mouth two times a day. - divalproex ER (DEPAKOTE ER) 500 mg 24 hr tablet Take 2 tablets by mouth once daily for 5 days, THEN 1 tablet once daily for 5 days. - atogepant (QULIPTA) 60 mg tablet Take 1 tablet by mouth once daily. - acetaZOLAMIDE SR (DIAMOX SEQUELS) 500 mg capsule Take 1 capsule by mouth two times a day. - POTASSIUM-99 ORAL Take by mouth. - hydrOXYzine pamoate (VISTARIL) 50 mg capsule Take 50 mg by mouth daily at bedtime. - dextroamphetamine-amphet amine (ADDERALL) 20 mg tablet Take 20 mg by mouth once daily. - Cetirizine 10 mg cap - mv,calcium,min/iron/foli c/vitK (MULTI FOR HER ORAL) Problem List As Of Date 10/12/2024 Noted Resolved Migraine without aura, not intractable, without*10/07/2024 Letter Text Encounter Status:Closed by SERGEI HARRINGTON on 10/13/24 [facility] CNOVon 10-10-2024 CNOV Office Visit (MOMNS2 ) -------- KAROLINA NICOLE ([id number]) 1985 F Date Time Provider Department 10/10/24 10:00 AM JANEE MONTERO [facility] During your visit today, we recorded the following information about you: Janee Montero APRN.PARIMUTUEL CLERK 10/10/2024 1:58 PM Signed [facility] Note Subjective: Karolina Nicole is a 39 year old year old female presenting for day 1 of infusions. Therapy Plan: DHE zofran magnesium robaxin New health conditions since orders were placed: No Cardiovascular risk factors: None Triptan dose in the last 24 hours: No Last muscle relaxer dose: No Last NSAID dose: No Response to infusions: Patient tolerating infusion without side effects. Current Preventative: diamox, qulipta Labs: Latest Ref Rng AND Units 09/22/2024 CBC WBC 3.70 - 11.00 k/uL 14.59 RBC 3.90 - 5.20 m/uL 4.23 Hemoglobin 11.5 - 15.5 g/dL 13.3 Hematocrit 36.0 - 46.0 % 36.2 MCV 80.0 - 100.0 fL 85.6 MCH 26.0 - 34.0 pg 31.4 MCHC 30.5 - 36.0 g/dL 36.7 RDW-CV 11.5 - 15.0 % 12.1 Platelet Count 150 - 400 k/uL 330 MPV 9.0 - 12.7 fL 9.5 Baso% % 0.1 Abs Neut (ANC) 1.45 - 7.50 k/uL 12.90 Abs Lymph 1.00 - 4.00 k/uL 1.24 Abs [place] <0.87 k/uL 0.29 Abs Eosin <0.46 k/uL <0.03 Abs Baso <0.11 k/uL <0.03 NRBC /100 WBC 0.0 Latest Ref Rng AND Units 09/22/2024 CMP Sodium 136 - 144 mmol/L 138 Potassium 3.7 - 5.1 mmol/L 3.6 Chloride 98 - 107 mmol/L 109 CO2 22 - 30 mmol/L 14 Glucose 74 - 99 mg/dL 162 BUN 7 - 21 mg/dL 20 Creatinine 0.58 - 0.96 mg/dL 0.75 EGFR >=60 mL/min/1.73m? 104 Calcium 8.5 - 10.2 mg/dL 9.3 ALLERGIES Allergen Reactions Adhesive Rash Latex Rash Levaquin [Levofloxa* Swelling Swelling tongue Morphine Angioedema Says tongue swells up, vomits, chest pain Nickel Rash, Unknown Oxycodone Rash Oxycodone-Acetamino* Rash Silk Other: See Comments Silk tape Sulfadiazine Rash Sulfamethoxazole-Tr* Swelling Adhesive Tape (Cammie* Hives, Itching Current Medications: calcium 26/magnesium 15/zinc (EZHLEFK-UUEHLEQAA-IHHC COMPLEX ORAL)Take by mouth once daily. Patient does not know dosingDisp: Rfl: amoxicillin-clavulanate potassium (AUGMENTIN) 875-125 mg per tabletTake 1 tablet by mouth two times a day.Disp: Rfl: divalproex ER (DEPAKOTE ER) 500 mg 24 hr tabletTake 2 tablets by mouth once daily for 5 days, THEN 1 tablet once daily for 5 days.Disp: 15 tabletRfl: 0 atogepant (QULIPTA) 60 mg tabletTake 1 tablet by mouth once daily.Disp: 30 tabletRfl: 2 acetaZOLAMIDE SR (DIAMOX SEQUELS) 500 mg capsuleTake 1 capsule by mouth two times a day.Disp: 60 capsuleRfl: 4 estrogens, conjugated (PREMARIN ORAL)Take by mouth.Disp: Rfl: POTASSIUM-99 ORALTake by mouth.Disp: Rfl: estradiol (ESTRACE) 0.5 mg tabletTake 1 tablet by mouth once daily.Disp: Rfl: hydrOXYzine pamoate (VISTARIL) 50 mg capsuleTake 50 mg by mouth daily at bedtime.Disp: Rfl: dextroamphetamine-amphet amine (ADDERALL) 20 mg tabletTake 20 mg by mouth once daily.Disp: Rfl: Zinc Acetate, Oral, 50 mg (zinc) capTake 50 capsules by mouth once daily.Disp: Rfl: (Patient not taking: Reported on 10/10/2024) Cetirizine 10 mg capDisp: Rfl: mv,calcium,min/iron/foli c/vitK (MULTI FOR HER ORAL)Disp: Rfl: montelukast (SINGULAIR) 10 mg tabletMontelukast Active 10 MG PO Daily March 24, 2021 12:00amDisp: Rfl: (Patient not taking: Reported on 10/10/2024) Review of Systems: Review of system: Patient reports no change from the prior visit. Objective: VS: see infusion note for vital signs General: well appearing, in no acute distress, alert Neurological: Pain Behaviors: no pain behaviors observed Mental Status: Alert and oriented to person, place and time. Affect is normal and appropriate. Speech is spontaneous and fluent without dysarthria, normal in rate, volume and articulation, and clear, coherent, and relevant. 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 Attention span and concentration are good. Cranial Nerves: VII-face is symmetric without evidence of weakness. VIII-hearing intact. Assessment: (G43.E11) Intractable chronic migraine with aura with status migrainosus (primary encounter diagnosis) Plan: Karolina Nicole is a 39 year old year old female, with a history of IIH, chronic migraines and cervicalgia following up today for day 1 of infusions. Follow up plan: Hold Triptans on infusion days or within 24 hours of infusion. Hold Muscle relaxers on infusion days or within 24 hours of infusion. Level of service: Est level 2 (10-19 min). Time spent 15 min on the day of service, which included preparing to see the patient, [id number] patient care, completing clinical documentation, obtaining and/or reviewing separately obtained history, performing a medically appropriate examination, and counseling and educating the patient/family/caregiver . Raul Willams (more content not included)... 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 Sherwood to address concerns regarding disability process and community resources. SW consulted with Dr. Barb Hicks who reviewed patient's chart and has offered to see the patient in [place] for a low vision evaluation. sawmill or timber yard worker discussed plan of care with patient who would like to proceed with scheduling with Dr. Hicks. Lengthy discussion regarding patient's diagnosis of IIH and relation to visual disturbances which is making it hard for patient to work and function overall with ADL's/IADL's including driving. RUSSELL discussed consulting with a prosecuting attorney and offered legal resources if needed. RUSSELL also advised asking for a [facility] neurology socially responsible investment adviser who can help with support and disability paperwork since the focus will be from IIH diagnosis and treatment. RUSSELL will send patient GAMAL[employer]EL forms to [email or web address] Patient will request records from Dr. Janina Soria (neurology) and Dr. Pablo Phipps (retina specialist from [facility]). Patient got an important call during the conversation and stated she will call RUSSELL back later. Patient has contact number in her phone. RUSSELL will send [facility] scheduling number with GAMALIEL forms. Allergies As of Date: 10/10/2024 Noted Allergy Reaction ADHESIVE 03/11/2012 2 - Rash LATEX 08/30/2016 2 - Rash LEVAQUIN (LEVOFLOXACIN) 04/05/2024 7 - Swelling Comments: Swelling tongue NICKEL 08/30/2016 2 - Rash 16 - Unknown OXYCODONE 10/15/2020 2 - Rash OXYCODONE-ACETAMINOPHEN 03/11/2012 2 - Rash SILK 08/30/2016 14 - Other: See Comments Comments: Silk tape SULFADIAZINE 09/29/2023 2 - Rash SULFAMETHOXAZOLE-TRIMETH OPRIM 12/25/2023 7 - Swelling ADHESIVE TAPE (ROSINS) 05/11/2019 4 - Hives 9 - Itching Date Reviewed: 10/07/2024 Reviewed by: Loraine Funes MD - Fully Assessed Reason for Visit: Social Work Consultation [[id number]] Visit Diagnosis:IIH (idiopathic intracranial hypertension) [G93.2] Order(s):CONSULT TO [employer] [facility] [[id number]] Order #: [id number]: 1 Prescriptions as of 10/10/2024 - divalproex ER (DEPAKOTE ER) 500 mg 24 hr tablet Take 2 tablets by mouth once daily for 5 days, THEN 1 tablet once daily for 5 days. - atogepant (QULIPTA) 60 mg tablet Take 1 tablet by mouth once daily. - acetaZOLAMIDE SR (DIAMOX SEQUELS) 500 mg capsule Take 1 capsule by mouth two times a day. - estrogens, conjugated (PREMARIN ORAL) Take by mouth. - POTASSIUM-99 ORAL Take by mouth. - estradiol (ESTRACE) 0.5 mg tablet Take 1 tablet by mouth once daily. - hydrOXYzine pamoate (VISTARIL) 50 mg capsule Take 50 mg by mouth daily at bedtime. - dextroamphetamine-amphet amine (ADDERALL) 20 mg tablet Take 20 mg by mouth once daily. - Zinc Acetate, Oral, 50 mg (zinc) cap Take 50 capsules by mouth once daily. - Cetirizine 10 mg cap - mv,calcium,min/iron/foli c/vitK (MULTI FOR HER ORAL) - montelukast (SINGULAIR) 10 mg tablet Montelukast Active 10 MG PO Daily March 24, 2021 12:00am Problem List As Of Date 10/10/2024 Noted Resolved Migraine without aura, not intractable, without*10/07/2024 Encounter Status:Closed by GLO WEEMS on 10/10/24 [facility] CONSULT TO [facility] Ruxter W Jamal 10-10-2024 Resources and suppor t provided. Thank you. [facility] KAROLINA NICOLE ([id number]) 1985 F Date Time Provider Department 10/06/24 [facility] During your visit today, we recorded the following information about you: Jassi Shasha Promise 10/06/2024 11:17 AM Signed Received a call from Dr. Yoan Ivey's office. Patient Karolina Nicole is not doing well since her lumbar puncture. He states she has a headache and seeing flashing lights and not doing so well. Would like for the patient to follow up with Dr. Sherwood tomorrow if at all possible. I explained that the patient had the lumbar puncture at [facility]. He order a number of lab work yesterday, CBC, Blood cultures (the results will not be back for a few days) profile 14, [place] and [place] A. He said if you could call him at his office [phone]. He did restart her on Diamox 250 mg twice a day yesterday. Lloyd Sherwood MD 10/06/2024 11:24 AM Signed Hi I had a virtual visit with her yesterday (Thursday) and saw her last week. When we spoke these were symptoms she has been having from a visual standpoint and if anything reported improvement in the vision since the lumbar puncture. The ongoing symptoms of concern was the low pressure headache after the lumbar puncture, which is why I held off on having her resume diamox as that would be counterproductive to a LOW pressure headache. I relayed this all in detail to the patient. Zenaida Cabrera DO 10/19/2024 8:03 AM Signed Addended by: ZENAIDA CABRERA on: 10/19/2024 08:03 AM Modules accepted: Orders Allergies As of Date: 10/06/2024 Noted Allergy Reaction ADHESIVE 03/11/2012 2 - Rash LATEX 08/30/2016 2 - Rash LEVAQUIN (LEVOFLOXACIN) 04/05/2024 7 - Swelling Comments: Swelling tongue NICKEL 08/30/2016 2 - Rash 16 - Unknown OXYCODONE 10/15/2020 2 - Rash OXYCODONE-ACETAMINOPHEN 03/11/2012 2 - Rash SILK 08/30/2016 14 - Other: See Comments Comments: Silk tape SULFADIAZINE 09/29/2023 2 - Rash SULFAMETHOXAZOLE-TRIMETH OPRIM 12/25/2023 7 - Swelling ADHESIVE TAPE (ROSINS) 05/11/2019 4 - Hives 9 - Itching Date Reviewed: 10/05/2024 Reviewed by: Lloyd Sherwood MD - Fully Assessed Primary Visit Diagnosis:Chronic migraine without aura, with intractable migraine, so stated, with status migrainosus [G43.711] Order(s):divalproex ER (DEPAKOTE ER) 500 mg 24 hr tabletTake 1 tablet by mouth daily at bedtime.Disp: 90 tabletRfl: 1 COMPREHENSIVE METABOLIC PANEL [SQCMP] Order #: [id number] FUTURE COMPLETE BLOOD COUNT [SQCBC] Order #: [id number] FUTURE Prescriptions as of 10/19/2024 - divalproex ER (DEPAKOTE ER) 500 mg 24 hr tablet Take 1 tablet by mouth daily at bedtime. - tiZANidine (ZANAFLEX) 4 mg tablet 1 tablet at bedtime as needed Orally Once a day - calcium 26/magnesium 15/zinc (HPIABGM-HADVEKYMW-FNSX COMPLEX ORAL) Take by mouth once daily. Patient does not know dosing - amoxicillin-clavulanate potassium (AUGMENTIN) 875-125 mg per tablet Take 1 tablet by mouth two times a day. - atogepant (QULIPTA) 60 mg tablet Take 1 tablet by mouth once daily. - acetaZOLAMIDE SR (DIAMOX SEQUELS) 500 mg capsule Take 1 capsule by mouth two times a day. - POTASSIUM-99 ORAL Take by mouth. - hydrOXYzine pamoate (VISTARIL) 50 mg capsule Take 50 mg by mouth daily at bedtime. - dextroamphetamine-amphet amine (ADDERALL) 20 mg tablet Take 20 mg by mouth once daily. - Cetirizine 10 mg cap - mv,calcium,min/iron/foli c/vitK (MULTI FOR HER ORAL) Problem List As Of Date: 10/06/2024 (None) Prescriptions ordered this encounter Disp Refills Start End DIVALPROEX ER 500 MG TABLET,EXTENDED* 90 t* 1 10/19/2024 04/17/2025 Route: PO Sig: Take 1 tablet by mouth daily at bedtime. Medications Discontinued During This Encounter Prescriptions - divalproex ER (DEPAKOTE ER) 500 mg 24 hr tablet (Discontinued) Take 2 tablets by mouth once daily for 5 days, THEN 1 tablet once daily for 5 days. Encounter Status:Closed by PROMISE DEJESUS on 10/06/24 Normal [facility] Basic Metabolic Panelon 05-2 Anion gap [Moles/Vol] 11.7 mmol/L Normal 6.0-15.0 Th e [facility] Comment on above: Performed By: #### C BC, BMP #### [facility] [address] [place] [address] [place] Calcium [Mass/Vol] 9.3 mg/dL Normal 8.6-10.3 [facility] Comment on above: Performed By: #### C BC, BMP #### [facility] [address] [place] [address] [place] Chloride [Moles/Vol] 106 mmol/L Normal 98-107 [facility] Comment on above: Performed By: #### C BC, BMP #### [facility] [address] [place] [address] [place] CO2 [Moles/Vol] 27.9 mmol/L Normal 21.0-31.0 [facility] Comment on above: Performed By: #### C BC, BMP #### [facility] [address] [place] [address] [place] Creatinine [Mass/Vol] 1.04 mg/dL Normal 0.60-1.20 [facility] Comment on above: Performed By: #### C BC, BMP #### [place] [address] [place] Creatinine Clr Calc Pharmacy 67.76 Normal [facility] Comment on above: Result Comment: PERF ORMED BY: [place] [address] PATHOLOGIST CIVIL SERVICE CLERK EMMA BRANDON M.D. Performed By: #### C BC, BMP #### [place] [address] [place] GFR/1.73 sq M.predicted MDRD (S/P/Bld) [Vol rate/Area] mL/min/{1.73_m2} Normal [facility] Comment on above: Performed By: #### C BC, BMP #### [address] [place] [address] [place] Glucose [Mass/Vol] 103 mg/dL High 70-100 [facility] Comment on above: Result Comment: [place] Glucose Reference Range is dependent on time and content of last meal. Glucose of more than 200 mg/dL in a nonstressed, ambulatory subject supports the diagnosis of Diabetes Mellitus. ADA recommended reference range Performed By: #### C BC, BMP #### [facility] [address] Potassium [Moles/Vol] 3.6 mmol/L Normal 3.5-5.1 [facility] Comment on above: Performed By: #### C BC, BMP #### [facility] [address] Sodium [Moles/Vol] 142 mmol/L Normal 136-145 [facility] Comment on above: Performed By: #### C BC, BMP #### [facility] [address] Urea nitrogen [Mass/Vol] 11 mg/dL Normal 7-25 [facility] Comment on above: Performed By: #### C BC, BMP #### [facility] [address] [place] [address] [place] Basophils Auto (Bld) [#/Vol] Ordered By: Shahid Ritter on 10-04-2024 Basophils (Bld) [#/Vol] Automated basophil count 0.0-0.2 [facility] Basophils/100 WBC Auto (Bld) Ordered By: Shahid Ritter on 10-04-2024 Basophils/100 WBC (Bld) Automated basophil % . [facility] CNCOon 10-04-2024 CNCO Letter Text Normal [facility] Calcium [Mass/volume] in Ser um or PlasmaOrdered By: Shahid Ritter on 10-04-2024 Calcium [Mass/Vol] Calcium [Mass/volume ] in Serum or Plasma 8.6-10.3 [facility] Carbon dioxide, total [Moles /volume] in Serum or PlasmaOrdered By: Shahid Ritter on 10-04-2024 CO2 [Moles/Vol] Carbon dioxide, tota l [Moles/volume] in Serum or Plasma 21.0-31.0 [facility] Chloride [Moles/volume] in S dalia or PlasmaOrdered By: Shahid Ritter on 10-04-2024 Chloride [Moles/Vol] Chloride [Moles/vol ume] in Serum or Plasma 98-107 [facility] Complete Blood Count Auto Di ffon 10-04-2024 Basophils (Bld) [#/Vol] 0.1 10*3/uL Normal 0.0-0.2 [facility] Comment on above: Result Comment: PERF ORMED BY: [place] [address] PATHOLOGIST CIVIL SERVICE CLERK EMMA BRANDON M.D. Performed By: #### C BC, BMP #### [address] Basophils/100 WBC (Bld) 0.5 % Normal . [facility] Comment on above: Performed By: #### C BC, BMP #### [address] Eosinophils (Bld) [#/Vol] 0.1 10*3/uL Normal 0.0-0.45 [facility] Comment on above: Performed By: #### C BC, BMP #### [address] Eosinophils/100 WBC (Bld) 1.0 % Normal . [facility] Comment on above: Performed By: #### C BC, BMP #### [address] Erythrocyte distribution width (RBC) [Ratio] 12.5 % Normal 11.9-15.3 [facility] Comment on above: Performed By: #### C BC, BMP #### [address] Hematocrit (Bld) [Volume fraction] 39.7 % Normal 34.0-46.4 [facility] Comment on above: Performed By: #### C BC, BMP #### [address] Hemoglobin (Bld) [Mass/Vol] 13.7 g/dL Normal 11.8-15.4 [facility] Comment on above: Performed By: #### C BC, BMP #### [address] Lymphocytes (Bld) [#/Vol] 2.5 10*3/uL Normal 1.00-4.8 [facility] Comment on above: Performed By: #### C BC, BMP #### [address] Lymphocytes/100 WBC (Bld) 26.0 % Normal . [facility] Comment on above: Performed By: #### C BC, BMP #### [address] MCH (RBC) [Entitic mass] 31.4 pg Normal 24.7-34.3 [facility] Comment on above: Performed By: #### C BC, BMP #### [address] MCV (RBC) [Entitic vol] 90.8 fL Normal 80-100 [facility] Comment on above: Performed By: #### C BC, BMP #### [address] Mean Corpuscular HGB Conc 34.6 g/dL Normal 32.0-35.0 [facility] Comment on above: Performed By: #### C BC, BMP #### [place] [address] [place] Monocytes (Bld) [#/Vol] 0.5 10*3/uL Normal 0.0-0.8 [facility] Comment on above: Performed By: #### C BC, BMP #### [place] [address] [place] Monocytes/100 WBC (Bld) 16.15 % Normal 0.00-20.00 [facility] Comment on above: Performed By: #### C BC, BMP #### [address] Monocytes/100 WBC (Bld) 4.8 % Normal . [facility] Comment on above: Performed By: #### C BC, BMP #### [facility] [address] [place] [id number] [place] Neutrophils (Bld) [#/Vol] 6.5 10*3/uL Normal 1.8-7.7 [facility] Comment on above: Performed By: #### C BC, BMP #### [facility] [address] [place] [id number] [place] Neutrophils/100 WBC (Bld) 67.7 % Normal . [facility] Comment on above: Performed By: #### C BC, BMP #### [facility] [address] [place] [address] [place] NRBC% 0.0 /100{WBC} Normal 0-0.5 [facility] Comment on above: Performed By: #### C BC, BMP #### [facility] [address] [place] [id number] [place] Platelet mean volume (Bld) [Entitic vol] 7.2 fL Normal 6.3-10.7 [facility] Comment on above: Performed By: #### C BC, BMP #### [facility] [address] [place] [address] [place] Platelets (Bld) [#/Vol] 294 10*3/uL Normal 150-450 [facility] Comment on above: Performed By: #### C BC, BMP #### [facility] [address] [place] [address] [place] RBC (Bld) [#/Vol] 4.37 10*6/uL Normal 3.60-5.00 The [facility] Comment on above: Performed By: #### C BC, BMP #### [facility] [address] [place] [address] [place] WBC (Bld) [#/Vol] 9.6 10*3/uL Normal 3.8-11.6 [facility] Comment on above: Performed By: #### C BC, BMP #### [facility] [address] [place] [id number] [place] Creatinine [Mass/volume] in Serum or PlasmaOrdered By: Shahid Ritter on 10-04-2024 Creatinine [Mass/Vol] Creatinine [Mass/v olume] in Serum or Plasma 0.60-1.20 [facility] ECG 12 lead ECGon 10-04-2024 ECG 12 lead ECG [facility] Main [place] [address] [place], [place] [id number] Electrocardiograph Report Signed Patient: Karolina Nicole MR#: [id number] : 1985 Acct:[id number] Age/Sex: 39 / F ADM Date: 10/04/24 Loc: ER Room: Type: [facility] ER Attending Dr: Ordering Provider: Shahid Ritter MD Date of Service: 10/04/24 ECG/ECG 12 lead ECG: Headache Copies to: Test Reason : Blood Pressure : 124/87 mmHG Vent. Rate : 72 BPM Atrial Rate : 72 BPM P-R Int : 146 ms QRS Dur : 88 ms QT Int : 380 ms P-R-T Axes : 68 86 81 degrees QTcB Int : 416 ms Normal sinus rhythm Nonspecific ST abnormality Abnormal ECG When compared with ECG of 28-Sep-2024 21:20, premature ventricular complexes are no longer present Vent. rate has decreased by [address] no longer depressed in Anterior leads Confirmed by SHAHID RITTER MD ([id number]) on 10/04/2024 4:03:31 PM Referred By: Electronically Signed By: SHAHID RITTER MD Transcribed By: MUS Signed By Shahid Ritter MD 10/04/24 1603 Normal [facility] Eosinophils Auto (Bld) [#/Vo l]Ordered By: Shahid Ritter on 10-04-2024 Eosinophils (Bld) [#/Vol] Automated eosinophil count 0.0-0.45 [facility] Eosinophils/100 WBC Auto (Bl d)Ordered By: Shahid Ritter on 10-04-2024 Eosinophils/100 WBC (Bld) Automated eosinophil % . [facility] Erythrocyte distribution wid th Auto (RBC) [Ratio]Ordered By: Shahid Ritter on 10-04-2024 Erythrocyte distribution width (RBC) [Ratio] Erythrocyte distribution width [Ratio] by Automated count 11.9-15.3 [facility] Glucose [Mass/volume] in Ser um or PlasmaOrdered By: Shahid Ritter on 10-04-2024 Glucose [Mass/Vol] Glucose [Mass/volume ] in Serum or Plasma High 70-100 [facility] Comment on above: ADA recommended refe rence rangeRandom Glucose Reference Range is dependent on time and content of last meal. Glucose of more than 200 mg/dL in a nonstressed, ambulatory subject supports the diagnosis of Diabetes Mellitus. Hematocrit Auto (Bld) [Volum e fraction]Ordered By: Shahid Ritter on 10-04-2024 Hematocrit (Bld) [Volume fraction] Hematocrit [Volume Fraction] of Blood by Automated count 34.0-46.4 [facility] Hemoglobin [Mass/volume] in BloodOrdered By: Shahid Ritter on 10-04-2024 Hemoglobin (Bld) [Mass/Vol] Hemoglobin [Mass/volume] in Blood 11.8-15.4 [facility] Leukocytes [#/volume] correc nisha for nucleated erythrocytes in Blood by Automated counOrdered By: Shahid Ritter on 10-04-2024 WBC corrected for nucl RBC Auto (Bld) [#/Vol] Leukocytes [#/volume] corrected for nucleated erythrocytes in Blood by Automated coun 3.8-11.6 [facility] Lymphocytes Auto (Bld) [#/Vo l]Ordered By: Shahid Ritter on 10-04-2024 Lymphocytes (Bld) [#/Vol] Lymphocytes [#/volume] in Blood by Automated count 1.00-4.8 [facility] Lymphocytes/100 WBC Auto (Bl d)Ordered By: Shahid Ritter on 10-04-2024 Lymphocytes/100 WBC (Bld) Lymphocytes/100 leukocytes in Blood by Automated count . [facility] MCH Auto (RBC) [Entitic mass ]Ordered By: Shahid Ritter on 10-04-2024 MCH (RBC) [Entitic mass] MCH [Entitic mass] by Automated count 24.7-34.3 [facility] MCHC Auto (RBC) [Mass/Vol]Or dered By: Shahid Ritter on 10-04-2024 MCHC (RBC) [Mass/Vol] MCHC [Mass/volume] by Automated count 32.0-35.0 [facility] MCV Auto (RBC) [Entitic vol] Ordered By: Shahid Ritter on 10-04-2024 MCV (RBC) [Entitic vol] MCV [Entitic volume] by Automated count 80-100 [facility] Monocyte distribution width [Entitic volume] in Blood by AutomatedOrdered By: Shahid Ritter on 10-04-2024 Monocyte distribution width Auto (Bld) [Entitic vol] Monocyte distribution width [Entitic volume] in Blood by Automated 0.00-20.00 [facility] Monocytes Auto (Bld) [#/Vol] Ordered By: Shahid Ritter on 10-04-2024 Monocytes (Bld) [#/Vol] Automated blood monocyte count 0.0-0.8 [facility] Monocytes/100 WBC Auto (Bld) Ordered By: Shahid Ritter on 10-04-2024 Monocytes/100 WBC (Bld) Automated monocyte % . [facility] Neutrophils Auto (Bld) [#/Vo l]Ordered By: Shahid Ritter on 10-04-2024 Neutrophils (Bld) [#/Vol] Neutrophils [#/volume] in Blood by Automated count 1.8-7.7 [facility] Neutrophils/100 WBC Auto (Bl d)Ordered By: Shahid Ritter on 10-04-2024 Neutrophils/100 WBC (Bld) Automated neutrophil % . [facility] No Panel InformationOrdered By: Shahid Ritter on 10-04-2024 Estimated GFR (CKD-EPI) > 60.0 mL/Min [facility] Creatinine Clearance (Chem 67.76 [facility] Nucleated erythrocytes [Pres ence] in Blood by Automated countOrdered By: Shahid Ritter on 10-04-2024 Nucleated RBC Auto Ql (Bld) Nucleated erythrocytes [Presence] in Blood by Automated count 0-0.5 [facility] Platelet mean volume Auto (B ld) [Entitic vol]Ordered By: Shahid Ritter on 10-04-2024 Platelet mean volume (Bld) [Entitic vol] Platelet mean volume [Entitic volume] in Blood by Automated count 6.3-10.7 [facility] Platelets Auto (Bld) [#/Vol] Ordered By: Shahid Ritter on 10-04-2024 Platelets (Bld) [#/Vol] Platelets [#/volume] in Blood by Automated count 150-450 [facility] Potassium [Moles/volume] in Serum or PlasmaOrdered By: Shahid Ritter on 10-04-2024 Potassium [Moles/Vol] Potassium [Moles/v olume] in Serum or Plasma 3.5-5.1 [facility] RBC Auto (Bld) [#/Vol]Ordere d By: Shahid Ritter on 10-04-2024 RBC (Bld) [#/Vol] Erythrocytes [#/volu me] in Blood by Automated count 3.60-5.00 [facility] Serum or plasma anion gap de terminationOrdered By: Shahid Ritter on 10-04-2024 Anion gap [Moles/Vol] Serum or plasma an ion gap determination 6.0-15.0 [facility] Sodium [Moles/volume] in Ser um or PlasmaOrdered By: Shahid Ritter on 10-04-2024 Sodium [Moles/Vol] Sodium [Moles/volume ] in Serum or Plasma 136-145 [facility] Urea nitrogen [Mass/volume] in Serum or PlasmaOrdered By: Shahid Ritter on 10-04-2024 Urea nitrogen [Mass/Vol] Urea nitrogen [Mass/volume] in Serum or Plasma 7-25 [facility] WBC Auto (Bld) [#/Vol]Ordere d By: Shahid Ritter on 10-04-2024 WBC (Bld) [#/Vol] Leukocytes [#/volume ] in Blood by Automated count 3.8-11.6 [facility] CNPNon 10-01-2024 [facility] -------- KAROLINA NICOLE ([id number]) 1985 F Date Time Provider Department 10/01/24 [facility] During your visit today, we recorded the following information about you: Lisandro Khan MD 10/01/2024 4:43 PM Addendum Received page that patient had called. Returned call and spoke with patient. Patient reports that since her lumbar puncture at [facility] yesterday (reports opening pressure of 28-29 and was brought down to 11) she notes tightness of her head and neck that improves significantly when lying down. She notes that she can't stand for long periods of time. She denies any weakness/tingling or neurologic deficits. She reports her daughter is leaving for college tomorrow and she is an emotional wreck . She is inquiring if she can take her Diamox to help with her symptoms. Recommended that patient adhere to Dr. Sherwood's recommendation to stay off Diamox until Thursday. Discussed that it is possible her symptoms are related to a low pressure rather than a high on and that Diamox could make the symptoms worse. Discussed trialing Tylenol, caffeine, and resting. Patient in agreement with this plan and agrees to call in with any new/worsening symptoms. Lisandro Khan MD Ophthalmology Resident, PGY-3 Allergies As of Date: 10/01/2024 Noted Allergy Reaction ADHESIVE 03/11/2012 2 - Rash LATEX 08/30/2016 2 - Rash LEVAQUIN (LEVOFLOXACIN) 04/05/2024 7 - Swelling Comments: Swelling tongue NICKEL 08/30/2016 2 - Rash 16 - Unknown OXYCODONE 10/15/2020 2 - Rash OXYCODONE-ACETAMINOPHEN 03/11/2012 2 - Rash SILK 08/30/2016 14 - Other: See Comments Comments: Silk tape SULFADIAZINE 09/29/2023 2 - Rash SULFAMETHOXAZOLE-TRIMETH OPRIM 12/25/2023 7 - Swelling ADHESIVE TAPE (ROSINS) 05/11/2019 4 - Hives 9 - Itching Date Reviewed: 09/28/2024 Reviewed by: Lloyd Sherwood MD - Fully Assessed Prescriptions as of 10/01/2024 - estrogens, conjugated (PREMARIN ORAL) Take by mouth. - POTASSIUM-99 ORAL Take by mouth. - estradiol (ESTRACE) 0.5 mg tablet Take 1 tablet by mouth once daily. - acetaZOLAMIDE (DIAMOX) 250 mg tablet Take 3 tablets by mouth every morning AND 3 tablets daily at bedtime. - hydrOXYzine pamoate (VISTARIL) 50 mg capsule Take 50 mg by mouth daily at bedtime. - dextroamphetamine-amphet amine (ADDERALL) 20 mg tablet Take 20 mg by mouth once daily. - Zinc Acetate, Oral, 50 mg (zinc) cap Take 50 capsules by mouth once daily. - Cetirizine 10 mg cap - mv,calcium,min/iron/foli c/vitK (MULTI FOR HER ORAL) - montelukast (SINGULAIR) 10 mg tablet Montelukast Active 10 MG PO Daily March 24, 2021 12:00am Facility-Administered Medications as of 10/01/2024 - tropicamide 1 % 1 drop (MYDRIACYL) - PHENYLephrine 2.5 % 1 drop (AK-DILATE, ANTHONY-SYNEPHRINE) - fluorescein-benoxinate 0.3-0.4 % 1 drop (FLURESS) - proparacaine 0.5 % 1 drop (ALCAINE) Problem List As Of Date: 10/01/2024 (None) Encounter Status:Closed by LISANDRO KHAN on 10/01/24 Normal [facility] Aerobic Cultureon 09-30-2024 Aerobic Culture No Growth 2 Days No Anaerobes Isolated 3 Days Gram Stain Result No Bacteria Seen No White Blood Cells Seen PERFORMED BY: [place] [address] PATHOLOGIST CIVIL SERVICE CLERK EMMA BRANDON M.D. Normal [facility] Comment on above: Performed By: #### D IFF CBC, LACTIC, ESR, PT, PTT, BMP #### [address] Aerobic cultureOrdered By: Ziyad Winslow on 09-30-2024 Bacteria identified Aer cx Nom (Unsp spec) Aerobic culture [facility] Anaerobic cultureOrdered By: Cindy Winslow on 09-30-2024 Bacteria identified Anaer cx Nom (Unsp spec) Anaerobic culture [facility] CNPNon 09-30-2024 CNPN Telephone ([facility]) -------- KAROLINA NICOLE ([id number]) 1985 F Date Time Provider Department 09/30/24 LLOYD SHERWOOD OPHTMN During your visit today, we recorded the following information about you: Chen Cerrato 09/30/2024 11:15 AM Signed Karolina Nicole [id number] (home) Pt said she had a lumbar uncture and hour ago at the ER. She was told that she has to lay down for 2 hours but wants to know when she can sit up? She said also her pressure this morning was at 27 and they got it down to 10. How do you want her to start taking the Diamox. She is currently at the ER and wanted to know adry. LV 09/28/24 FV 12/05/24 Assessment AND Plan Lloyd Sherwood MD filed at 09/28/2024 3:17 PM Status: Signed Karolina Nicole is a 39 year old right-handed woman who returns for her history of idiopathic intracranial hypertension (IIH). At initial consultation on June 14, 2024, the patient reported vision loss in her right eye in 2021 for which she underwent work up that confirmed intracranial hypertension based on an opening pressure on lumbar puncture of 34 cm H2O. She was put on diamox in addition to ozempic with resultant 50 pound weight loss. 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 The diamox was discontinued at the end of 2022. She then developed worsening headaches while sick with multiple infections from May 2023 to August 2023. She ultimately underwent repeat lumbar puncture with opening pressure recorded at ~31 cm H2O at an outside facility on 08/25/23 per patient. She then established with neurology at [facility] in September of 2023 and was put on diamox. She was followed by Dr. Goldberg as well as Dr. Cabrera. At initial consultation in my clinic she was maintained on diamox 500 mg twice a day. She was recently diagnosed with nephrolithiasis in the setting of diamox for which nephrology consultation was pending. She had experienced positional headaches, peripheral vision loss (bilateral inferotemporally per patient), transient visual obscurations, and pulsatile tinnitus. She denied diplopia. She gained back the initial 50 but lost 40 pounds in the preceding 4 months. She denied exposure to topical retin-A / accutane or recent COVID-19 infection. Was on a tetracycline in February. 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 The patient's initial neuro-ophthalmic exam on 06/14/2024 showed overall good afferent visual pathway function with the exception of trace bilateral blind spot enlargement on marie visual field -- which was consistent with her report of IT visual field deficits. There was no active optic disc edema with only chronic appearing disc elevation. There was specifically no optic disc drusen, which was corroborated by bscan. This was of course of on therapeutic diamox dosing. Monitoring was planned. ASSESSMENT/PLAN: (G93.2) IIH (idiopathic intracranial hypertension) (primary encounter diagnosis) (H53.453) Other localized visual field defect, bilateral At her 09/28/2024 return visit she reported that perhaps the estradiol had provoked her symptoms 08/11/24 with resultant neck stiffness and severe headaches reportedly improved while supine. She increased up to 1500 mg total daily of diamox. Today's repeat exam showed decreased best corrected visual acuity both eyes with intact color vision and worsening scattered arcuate zone areas of decreased sensitivity on the left visual field. There was no active optic disc edema either eye. Bscan was also negative for indirect of intracranial hypertension. She discontinued the estradiol given the timing with her symptoms and would proceed with lumbar puncture ordered by neurologist Dr. Cabrera (with whom I have discussed her care) - to either be completed by IR or locally if sooner. We discussed the opening pressure on the lumbar puncture being less acrurate while on diamox but given the complete clinical picture she planned to proceed as this would also exclude alternative etiologies such as meningitis given the ongoing neck stiffness which could certainly be multifactorial. I will then plan to see her back by interval virtual visit after the lumbar puncture at which time we can discuss the plan for diamox and management going forward, unless concerns arise in the interim, for which she was provided my contact information and encouraged to reach out. ER presentation is otherwise advised for any acute onset neurological deficits. Our [facility] same day access clinic can be reached at: [phone]. Lloyd Sherwood MD 3:14 PM 09/28/2024 FOR ADMINISTRATIVE PURPOSES ONLY: My impression of this case is based upon an assessment of the patient's subacute on chronic problems listed above that pose a threat to visual and neurologic function. 46 minutes were spent on total patient care on the day of service (more content not included)... Normal [facility] CSF PCR Panelon 09-30-2024 CSF PCR Panel Cytomegalovirus Not detected Cryptococcus neoformans or gattii [...] Varicella zoster virus Not detected PERFORMED BY: [place] [address] PATHOLOGIST CIVIL SERVICE CLERK EMMA BRANDON M.D. Normal [facility] Comment on above: Performed By: #### C SF PCR PANEL #### [address] head/brain wo conon 09-30 CT head/brain wo con [facility] Main [place] [address] [place] [address] CT Scan Report Signed Patient: Karolina Nicole MR#: [id number] : 1985 Acct:[id number] Age/Sex: 39 / F ADM Date: 09/28/24 Loc: Room: [address] [place] [address] Type: ADM INOo Attending Dr: Cindy Winslow MD Copies to: MD Cindy Gr MD Ordering Provider: Mj Garcia MD Date of Service: 09/30/24 CT/CT head/brain wo con: LP CT head/brain wo con 09/30/2024 7:23 AM SIGNS AND SYMPTOMS: History of cervical cancer TECHNIQUE:Multi-detector CT axial slices of the brain were obtained without IV contrast. CT was performed with one or more of the following dose reduction techniques: Automated exposure control, adjustment of the mA and/or kV according to patient size, or use of iterative reconstruction technique. COMPARISON: 02/08/2024 FINDINGS: There is no shift of the midline structures, acute intracranial bleeding, mass effects, or evidence of acute ischemia. The ventricular system is normal in size. The brainstem and the cerebellum are unremarkable. The visualized intraorbital contents, the visualized paranasal sinuses, and the infratemporal soft tissues show no acute abnormality. The osseous structures in the skull base and the calvarium show no abnormality. CT/CT head/brain wo con IMPRESSION: Normal noncontrasted CT brain. Impression dictated by: Dorian Hopkins M.D. 09/30/2024 8:30 AM Dictation Location: [place] [address] Transcribed By: ODALYS 09/30/24829 Dictated By: Dorian Hopkins II, MD 09/30/24819 Signed By: 09/30/24829 Normal [facility] Cell Count Differential,CSFo n 09-30-2024 Appearance, CSF Clear Normal Clear [facility] Comment on above: Performed By: #### D IFF CBC, LACTIC, ESR, PT, PTT, BMP #### [facility] [address] [place] [address] [place] Color, CSF Colorless Normal Colorless [facility] Comment on above: Performed By: #### D IFF CBC, LACTIC, ESR, PT, PTT, BMP #### [facility] [address] [place] [id number] [place] CSF Supernatant Color Colorless Normal Colorless [facility] Comment on above: Performed By: #### D IFF CBC, LACTIC, ESR, PT, PTT, BMP #### [facility] [address] [place] [address] [place] CSF Volume, Total 29.5 mL Normal [facility] Comment on above: Performed By: #### D IFF CBC, LACTIC, ESR, PT, PTT, BMP #### [facility] [address] [place] [address] [place] Eosinophil, CSF 0 Normal [facility] Comment on above: Result Comment: The reference interval and other method performance specifications have not been established for this body fluid. The test result must be integrated into the clinical context for interpretation. Performed By: #### D IFF CBC, LACTIC, ESR, PT, PTT, BMP #### [facility] [address] [place] [id number] [place] Lymphocytes, CSF 52 Normal [facility] Comment on above: Result Comment: The reference interval and other method performance specifications have not been established for this body fluid. The test result must be integrated into the clinical context for interpretation. Performed By: #### D IFF CBC, LACTIC, ESR, PT, PTT, BMP #### [facility] [address] Monocytes, CSF 31 Normal [facility] Comment on above: Result Comment: The reference interval and other method performance specifications have not been established for this body fluid. The test result must be integrated into the clinical context for interpretation. Performed By: #### D IFF CBC, LACTIC, ESR, PT, PTT, BMP #### [facility] [address] Neutrophils, CSF 0 Normal [facility] Comment on above: Result Comment: The reference interval and other method performance specifications have not been established for this body fluid. The test result must be integrated into the clinical context for interpretation. Performed By: #### D IFF CBC, LACTIC, ESR, PT, PTT, BMP #### [address] RBC, CSF 0 /uL Normal [facility] Comment on above: Result Comment: The reference interval and other method performance specifications have not been established for this body fluid. The test result must be integrated into the clinical context for interpretation. Performed By: #### D IFF CBC, LACTIC, ESR, PT, PTT, BMP #### [address] TNC, CSF 1 /uL Normal 0-5 [facility] Comment on above: Performed By: #### D IFF CBC, LACTIC, ESR, PT, PTT, BMP #### [address] Tube Number Tested, CSF Tube Number: 3 Normal [facility] Comment on above: Result Comment: PERF ORMED BY: [place] [address] PATHOLOGIST CIVIL SERVICE CLERK SCOTTIE LEE M.D. Performed By: #### D IFF CBC, LACTIC, ESR, PT, PTT, BMP #### [facility] [address] [place] [id number] [facility] Cerebrospinal fluid color id entificationOrdered By: Cindy Winslow on 09-30-2024 Color (CSF) Color CSF Colorless [facility] Cerebrospinal fluid post-radha trifugation appearance determinationOrdered By: Cindy Winslow on 09-30-2024 Appearance (Spun CSF) Cerebrospinal flui d post-centrifugation appearance determination Colorless [facility] Cerebrospinal fluid sample t ube volume measurementOrdered By: Cindy Winslow on 09-30-2024 Specimen volume (CSF) Cerebrospinal flui d sample tube volume measurement [facility] Determination of appearance of cerebrospinal fluidOrdered By: Cindy Winslow on 09-30-2024 Appearance (CSF) Cerebrospinal fluid appearance description Clear [facility] Eosinophil count CSFOrdered By: Cindy Winslow on 09-30-2024 CSF Eosinophils 0 [facility] Comment on above: The reference interv al and other method performance specifications have not been established for this body fluid. The test result must be integrated into the clinical context for interpretation. Glucose [Mass/volume] in Cer ebral spinal fluidOrdered By: Cindy Winslow on 09-30-2024 Glucose (CSF) [Mass/Vol] Glucose [Mass/volume] in Cerebral spinal fluid 40-70 [facility] Glucose, Spinal Fluidon 09-09 Glucose, Spinal Fluid 61 mg/dL Normal 40-70 [facility] Comment on above: Performed By: #### D IFF CBC, LACTIC, ESR, PT, PTT, BMP #### [address] Gram Stainon 09-30-2024 Microscopic observation Gram stain Nom (Unsp spec) Gram Stain Result No Bacteria Seen No White Blood Cells Seen PERFORMED BY: [place] [address] PATHOLOGIST CIVIL SERVICE CLERK SCOTTIE LEE M.D. Normal [facility] Comment on above: Performed By: #### D IFF CBC, LACTIC, ESR, PT, PTT, BMP #### [place] [id number] [facility] Gram stain microscopyOrdered By: Cindy Winslow on 09-30-2024 Microscopic observation Gram stain Nom (Unsp spec) Gram stain microscopy [facility] IR guided lumbar puncture LP on 09-30-2024 IR guided lumbar puncture LP [facility] Main [address] [address] Interventional Radiology Rpt Signed Patient: Karolina Nicole MR#: [id number] : 1985 Acct:[id number] Age/Sex: 39 / F ADM Date: 09/28/24 Loc: Room: [address] [place] [address] Type: DIS INOo Attending Dr: Cindy Winslow MD Copies to: Cindy Winslow MD Ordering Provider: Cindy Winslow MD Date of Service: 09/30/24 IR/IR guided lumbar puncture LP: INTRACRANIAL HYPERTENSION IR guided lumbar puncture LP 09/30/2024 9:36 AM SIGNS AND SYMPTOMS: INTRACRANIAL HYPERTENSION INFORMED CONSENT: Reason for procedure was discussed with the patient. The procedure expectations risks benefits options and alternatives were discussed. All the questions were answered. The patient understood the results cannot be guaranteed. The procedure is indicated and risks were acceptable. Consent was obtained. PROCEDURE: A fluoroscopically guided lumbar puncture was performed at the L4-L5 level on the left via a left sublaminar approach. The patient was prepped and draped in a sterile manner. 5 mL of lidocaine 2% without epinephrine were used for local anesthesia. A 20-gauge spinal needle was introduced into the epidural space on the left atL4-5 via a left sublaminar approach. With the patient in the left lateral decubitus position the opening pressure was measured at 27 cm CSF. After removal of 31 mL of clear CSF the closing pressure was measured at 11 cm CSF. The needle was removed and hemostasis was obtained using manual pressure. Cumulative Air Kerma in mGy: 1.3 mGy The patient tolerated the procedure well. No immediate complications were detected. IR/IR guided lumbar puncture LP IMPRESSION: Successful fluoroscopically guided lumbar puncture. With the patient in the left lateral decubitus position the opening pressure was measured at 27 cm CSF. After removal of 31 mL of clear CSF the closing pressure was measured at 11 cm CSF. Impression dictated by: Dorian Hopkins M.D. 09/30/2024 3:17 PM Dictation Location: [place] [address] Transcribed By: [facility] 09/30/241516 Dictated By: Dorian Hopkins II, MD 09/30/241513 Signed By: 09/30/241516 Normal [facility] Interventional radiology rep ortOrdered By: Dorian Hopkins on 09-30-2024 Study report [facility] [place] [address] Interventional Radiology Rpt Signed Patient: Karolina Nicole MR#: [id number] : 1985 Acct:[id number] Age/Sex: 39 / F ADM Date: Loc: Room: [address] [place] [address] Type: DIS INOo Attending Dr: Cindy Winslow MD Copies to: Cindy Winslow MD~ Ordering Provider: Cindy Winslow MD Date of Service: 09/30/24 IR/IR guided lumbar puncture LP: INTRACRANIAL HYPERTENSION IR guided lumbar puncture LP 09/30/2024 9:36 AM SIGNS AND SYMPTOMS: ^INTRACRANIAL HYPERTENSION INFORMED CONSENT: Reason for procedure was discussed with the patient. The procedure expectations risks benefits options and alternatives were discussed. All the questions were answered. The patient understood the results cannot be guaranteed. The procedureis indicated and risks were acceptable. Consent was obtained. PROCEDURE: A fluoroscopically guided lumbar puncture was performed at the L4-L5 level on the left via a left sublaminar approach. The patient was prepped and draped in a sterile manner. 5 mL of lidocaine 2% without epinephrine were used for local anesthesia. A 20-gauge spinal needle was introduced into the epidural space on the left atL4-5 via a left sublaminar approach. With the patient in the left lateral decubitus position the opening pressure was measured at 27 cm CSF. After removal of 31 mL of clear CSF the closing pressure was measured at 11 cm CSF. The needle was removed and hemostasis was obtained using manual pressure. Cumulative Air Kerma in mGy: 1.3 mGy The patient tolerated the procedure well. No immediate complications were detected. IR/IR guided lumbar puncture LP IMPRESSION: Successful fluoroscopically guided lumbar puncture. With the patient in the left lateral decubitus position the opening pressure wasmeasured at 27 cm CSF. After removal of 31 mL of clear CSF the closing pressurewas measured at 11 cm CSF. Impression dictated by: Dorian Hopkins M.D. 09/30/2024 3:17 PM Dictation Location: [facility]--24 Transcribed By: ODALYS 09/30/241516 Dictated By: Dorian Hopkins II, MD 09/30/241513 Signed By: 09/30/241516 [facility] Work Phone: [phone] 09-30-2024 L ---- Specimen: [id number] Received: 09/30/24 Status: ESTELLA Vincentchon Num: [id number] Spec Type: Cytology Subm Dr: Droian Hopkins II, MD Tissues: A CSF (SPINAL FLUID) Procedures: Cyto Prepstain, DIFF QWIK, PAPSTN Age/ Patient Sex Location Account Attending Physician Karolina Nicole 39/F [id number] Cindy Winslow MD SPEC NUM: [id number] RECD: 09/30/24 STATUS: ESTELLA ALMARAZ NUM: [id number] GLORY: 09/30/[address] [facility] [address]: Dorian Hopkins II, MD ENTERED: 09/30/[address]: Cindy Winslow MD SPEC TYPE: Cytology DEPT: CNG ENTERED BY: [id number] RECV BY: [id number] ORDERED: Cyto Prepstain, DIFF QWIK, PAPSTN ORDERED: Cyto Prepstain, DIFF QWIK, PAPSTN Pathological Diagnosis Cerebrospinal fluid, cytology (Cytospin): - Unsatisfactory for evaluation due to acellular specimen. - Scant proteinaceous debris, nondiagnostic. Clinical Information Headache, IIH. Gross Description Received is 7 mL of colorless clear unfixed fluid for cytology said to have been obtained as CSF. 2 cytospin slides were made for microscopic examination. 1 stained PAP 1 stained DIFF Microscopic Description Microscopic examination is performed. CPT Codes 51700 Specimen: [id number] Received: 09/30/245795 Status: ESTELLA Almaraz Num: [id number] Spec Type: Cytology Subm Dr: Dorian Hopkins II, MD Tissues: A CSF (SPINAL FLUID) Procedures: Cyto Prepstain, DIFF QWIK, PAPSTN Patient: StevosarahaubreyKarolina Ángel [id number] (Continued) Signed (signature on file) Edis Acuña MD 09/30/24 1529 Normal [facility] Lymphocyte count CSFOrdered By: Cindy Winslow on 09-30-2024 CSF Lymphocytes 52 [facility] Comment on above: The reference interv al and other method performance specifications have not been established for this body fluid. The test result must be integrated into the clinical context for interpretation. Manual cerebrospinal fluid e rythrocytes count (number/volume)Ordered By: Cindy Winslow on 09-30-2024 RBC Manual cnt (CSF) [#/Vol] Manual cerebrospinal fluid erythrocytes count (number/volume) [facility] Comment on above: The reference interv al and other method performance specifications have not been established for this body fluid. The test result must be integrated into the clinical context for interpretation. Meningitis+Encephalitis path ogens DNA and RNA panel - Cerebral spinal fluid by KIRSTIN wiOrdered By: Cindy Winslow on 09-30-2024 Meningitis+Encephaliti s pathogens DNA and RNA panel KIRSTIN+non-probe (CSF) Meningitis+Encephalitis pathogens DNA and RNA panel - Cerebral spinal fluid by KIRSTIN wi [facility] Monocyte count CSFOrdered By : Cindy Winslow on 09-30-2024 CSF Monocytes 31 [facility] Comment on above: The reference interv al and other method performance specifications have not been established for this body fluid. The test result must be integrated into the clinical context for interpretation. Neutrophil count CSFOrdered By: Cindy Winslow on 09-30-2024 CSF Neutrophils 0 [facility] Comment on above: The reference interv al and other method performance specifications have not been established for this body fluid. The test result must be integrated into the clinical context for interpretation. No Panel InformationOrdered By: Cindy Winslow on 09-30-2024 CSF Tube Number Tube number: 3 [facility] Nucleated cells [#/volume] i n Cerebral spinal fluid by Manual countOrdered By: Cindy Winslow on 09-30-2024 Nucleated cells Manual cnt (CSF) [#/Vol] Nucleated cells [#/volume] in Cerebral spinal fluid by Manual count 0-5 [facility] Pathology study report docum entOrdered By: Edis Acuña on 09-30-2024 Pathology study [facility] Other Protein [Mass/volume] in Cer ebral spinal fluidOrdered By: Cindy Winslow on 09-30-2024 Protein (CSF) [Mass/Vol] Protein [Mass/volume] in Cerebral spinal fluid High 15-45 [facility] Total Protein, Spinal Fluido n 09-30-2024 Total Protein, Spinal Fluid 46 mg/dL High 15-45 [facility] Comment on above: Result Comment: PERF ORMED BY: [place] [address] PATHOLOGIST CIVIL SERVICE CLERK SCOTTIE LEE M.D. Performed By: #### D IFF CBC, LACTIC, ESR, PT, PTT, BMP #### [address] Amphetamine Screen Ql (U)Ord ered By: Cindy Winslow on 09-29-2024 Amphetamines Ql (U) Amphetamines screen Negativ e [facility] Appearance of UrineOrdered B y: Cindy Winslow on 09-29-2024 Appearance (U) Urine appearance Clear [facility] Bacteria [Presence] in Urine by AutomatedOrdered By: Cindy Winslow on 09-29-2024 Bacteria Auto Ql (U) Bacteria [Presence] in Urine by Automated None Seen [facility] Barbiturates [Presence] in U rine by Screen methodOrdered By: Cindy Winslow on 09-29-2024 Barbiturates Screen Ql (U) Barbiturates [Presence] in Urine by Screen method Negative [facility] Benzodiazepines Screen Ql (U )Ordered By: Cindy Winslow on 09-29-2024 Benzodiazepines Ql (U) Benzodiazepines [Presence] in Urine by Screen method Negative [facility] Benzoylecgonine [Presence] i n Urine by Screen methodOrdered By: Cindy Winslow on 09-29-2024 Benzoylecgonine Screen Ql (U) Benzoylecgonine [Presence] in Urine by Screen method Negative [facility] Bilirubin Test strip Ql (U)O rdered By: Cindy Winslow on 09-29-2024 Bilirubin Ql (U) Bilirubin.total [Presence] in Urine by Test strip Negative [facility] Cannabinoids [Presence] in U rine by Screen methodOrdered By: Cindy Winslow on 09-29-2024 Cannabinoids Screen Ql (U) Cannabinoids [Presence] in Urine by Screen method Negative [facility] Comment on above: These are unconfirme d results and should not be used for legal purposes. Drug Cut-Off Concentration: AMPH 1000 ng/mL MALIK 200 ng/mL DMITRY 200 ng/mL COCM 300 ng/mL OP 300 ng/mL PCP 25 ng/mL THC 20 ng/mL Color Auto (U)Ordered By: Ra cali Winslow on 09-29-2024 Color (U) Color of Urine by Auto Yellow [facility] Dipstick and Microscopicon 0 09-29-2024 Appearance (U) Clear Normal Clear [facility] Comment on above: Order Comment: Name Collection Type:: Voided Performed By: #### D IFF CBC, LACTIC, ESR, PT, PTT, BMP #### [facility] [address] Bacteria,Urine Rare Normal None Seen [facility] Comment on above: Order Comment: Name Collection Type:: Voided Performed By: #### D IFF CBC, LACTIC, ESR, PT, PTT, BMP #### [facility] [address] Bilirubin,Urine Negative Normal Negative [facility] Comment on above: Order Comment: Name Collection Type:: Voided Performed By: #### D IFF CBC, LACTIC, ESR, PT, PTT, BMP #### [facility] [address] Color (U) Light-Yellow Normal Yellow [facility] Comment on above: Order Comment: Name Collection Type:: Voided Performed By: #### D IFF CBC, LACTIC, ESR, PT, PTT, BMP #### [address] Glucose Ql (U) Normal Normal Normal [facility] Comment on above: Order Comment: Name Collection Type:: Voided Performed By: #### D IFF CBC, LACTIC, ESR, PT, PTT, BMP #### [address] Hyaline Casts,Urine None Normal 0-8 [facility] Comment on above: Order Comment: Name Collection Type:: Voided Performed By: #### D IFF CBC, LACTIC, ESR, PT, PTT, BMP #### [address] Ketones Ql (U) Negative Normal Negative [facility] Comment on above: Order Comment: Name Collection Type:: Voided Performed By: #### D IFF CBC, LACTIC, ESR, PT, PTT, BMP #### [address] Leukocyte esterase Test strip Ql (U) Negative Normal Negative [facility] Comment on above: Order Comment: Name Collection Type:: Voided Performed By: #### D IFF CBC, LACTIC, ESR, PT, PTT, BMP #### [address] Nitrite,Urine Negative Normal Negative [facility] Comment on above: Order Comment: Name Collection Type:: Voided Performed By: #### D IFF CBC, LACTIC, ESR, PT, PTT, BMP #### [address] Occult Blood,Urine Trace High Negative [facility] Comment on above: Order Comment: Name Collection Type:: Voided Performed By: #### D IFF CBC, LACTIC, ESR, PT, PTT, BMP #### [address] pH (U) 5.0 [pH] Normal 5.0-9.0 [facility] Comment on above: Order Comment: Name Collection Type:: Voided Performed By: #### D IFF CBC, LACTIC, ESR, PT, PTT, BMP #### [address] Protein,Urine Negative Normal Negative [facility] Comment on above: Order Comment: Name Collection Type:: Voided Performed By: #### D IFF CBC, LACTIC, ESR, PT, PTT, BMP #### [address] RBC,Urine 1-2 Normal 0-4 [facility] Comment on above: Order Comment: Name Collection Type:: Voided Performed By: #### D IFF CBC, LACTIC, ESR, PT, PTT, BMP #### [address] Specificy Donna,Urine 1.003 Normal 1.001-1.030 [facility] Comment on above: Order Comment: Name Collection Type:: Voided Performed By: #### D IFF CBC, LACTIC, ESR, PT, PTT, BMP #### [address] Urobilinogen,Urine Normal Normal Normal [facility] Comment on above: Order Comment: Name Collection Type:: Voided Performed By: #### D IFF CBC, LACTIC, ESR, PT, PTT, BMP #### [address] WBC,Urine 1-2 Normal 0-4 [facility] Comment on above: Order Comment: Name Collection Type:: Voided Performed By: #### D IFF CBC, LACTIC, ESR, PT, PTT, BMP #### [address] Drug Screen,Urineon 09-30-19 Amphetamine Screen,Urine Negative Normal Negative [facility] Comment on above: Performed By: #### D IFF CBC, LACTIC, ESR, PT, PTT, BMP #### [address] Barbiturate Screen,Urine Negative Normal Negative [facility] Comment on above: Performed By: #### D IFF CBC, LACTIC, ESR, PT, PTT, BMP #### [address] Benzodiazepines Screen,Urine Negative Normal Negative [facility] Comment on above: Performed By: #### D IFF CBC, LACTIC, ESR, PT, PTT, BMP #### [address] Cannabinoid Screen,Urine Negative Normal Negative [facility] Comment on above: Result Comment: Thes e are unconfirmed results and should not be used for legal purposes. Drug Cut-Off Concentration: AMPH 1000 ng/mL MALIK 200 ng/mL DMITRY 200 ng/mL COCM 300 ng/mL OP 300 ng/mL PCP 25 ng/mL THC 20 ng/mL PERFORMED BY: [place] [address] PATHOLOGIST CIVIL SERVICE CLERK SCOTTIE LEE M.D. Performed By: #### D IFF CBC, LACTIC, ESR, PT, PTT, BMP #### [address] Cocaine Screen,Urine Negative Normal Negative [facility] Comment on above: Performed By: #### D IFF CBC, LACTIC, ESR, PT, PTT, BMP #### [place] [address] [place] Opiate Screen,Urine Negative Normal Negative [facility] Comment on above: Performed By: #### D IFF CBC, LACTIC, ESR, PT, PTT, BMP #### [facility] [address] Phencyclidine Screen,Urine Negative Normal Negative [facility] Comment on above: Performed By: #### D IFF CBC, LACTIC, ESR, PT, PTT, BMP #### [facility] [address] Epithelial cells.squamous [# /area] in Urine sediment by Automated countOrdered By: Cindy Winslow on 09-29-2024 Epithelial cells.squamous Auto (Urine sed) [#/Area] Epithelial cells.squamous [#/area] in Urine sediment by Automated count [facility] Erythrocytes [#/area] in Uri ne sediment by Automated countOrdered By: Cindy Winslow on 09-29-2024 RBC Auto (Urine sed) [#/Area] Erythrocytes [#/area] in Urine sediment by Automated count 0-4 [facility] Glucose [Mass/volume] in Uri ne by Test stripOrdered By: Cindy Winslow on 09-29-2024 Glucose Test strip (U) [Mass/Vol] Glucose [Mass/volume] in Urine by Test strip Normal [facility] HCG ( test) IA.rapi d Ql (U)Ordered By: Cindy Winslow on 09-29-2024 HCG ( test) Ql (U) Urine human chorionic gonadotropin (hCG) detection by immunoassay [facility] HCG,Urineon 09-29-2024 Beta HCG ( test) Ql (U) Negative Normal [facility] Comment on above: Order Comment: Name Collection Type:: Voided Result Comment: PERF ORMED BY: [place] [address] PATHOLOGIST CIVIL SERVICE CLERK SCOTTIE LEE M.D. Performed By: #### D IFF CBC, LACTIC, ESR, PT, PTT, BMP #### [facility] [address] Hemoglobin Test strip Ql (U) Ordered By: Cindy Winslow on 09-29-2024 Hemoglobin Ql (U) Hemoglobin [Presence ] in Urine by Test strip High Negative [facility] Hyaline casts [#/area] in Ur ine sediment by Automated countOrdered By: Cindy Winslow on 09-29-2024 Hyaline casts Auto (Urine sed) [#/Area] Hyaline casts [#/area] in Urine sediment by Automated count 0-8 [facility] Ketones Test strip Ql (U)Ord ered By: Cindy Winslow on 09-29-2024 Ketones Ql (U) Ketones [Presence] i n Urine by Test strip Negative [facility] Leukocyte esterase [Presence ] in Urine by Test stripOrdered By: Cindy Winslow on 09-29-2024 Leukocyte esterase Test strip Ql (U) Leukocyte esterase [Presence] in Urine by Test strip Negative [facility] Leukocytes [#/area] in Urine sediment by Automated countOrdered By: Cindy Winslow on 09-29-2024 WBC Auto (Urine sed) [#/Area] Leukocytes [#/area] in Urine sediment by Automated count 0-4 [facility] Nitrite Test strip Ql (U)Ord ered By: Cindy Winslow on 09-29-2024 Nitrite Ql (U) Nitrite [Presence] i n Urine by Test strip Negative [facility] Opiates [Presence] in Urine by Screen methodOrdered By: Cindy Winslow on 09-29-2024 Opiates Screen Ql (U) Opiates [Presence] in Urine by Screen method Negative [facility] Phencyclidine Screen Ql (U)O rdered By: Cindy Winslow on 09-29-2024 Phencyclidine Ql (U) Phencyclidine [Pres ence] in Urine by Screen method Negative [facility] Protein Test strip (U) [Mass /Vol]Ordered By: Cindy Winslow on 09-29-2024 Protein (U) [Mass/Vol] Protein [Mass/vol ume] in Urine by Test strip Negative [facility] Specific gravity Test strip (U) [Rel density]Ordered By: Cindy Winslow on 09-29-2024 Specific gravity (U) [Rel density] Specific gravity of Urine by Test strip 1.001-1.030 [facility] Urobilinogen Test strip (U) [Mass/Vol]Ordered By: Cindy Winslow on 09-29-2024 Urobilinogen (U) [Mass/Vol] Urobilinogen [Mass/volume] in Urine by Test strip Normal [facility] pH Test strip (U)Ordered By: Cindy Winslow on 09-29-2024 pH (U) pH of Urine by Test strip 5.0-9.0 [facility] Anisocytosis LM Ql (Bld)Orde red By: Carissa Mejia on 09-28-2024 Anisocytosis Ql (Bld) Anisocytosis [Pres ence] in Blood by Light microscopy [facility] Basic Metabolic Panelon 09-09 Anion gap [Moles/Vol] 13.1 mmol/L Normal 6.0-15.0 e [facility] Comment on above: Performed By: #### D IFF CBC, LACTIC, ESR, PT, PTT, BMP #### [facility] [address] [place] [address] [place] Calcium [Mass/Vol] 9.1 mg/dL Normal 8.6-10.3 [facility] Comment on above: Performed By: #### D IFF CBC, LACTIC, ESR, PT, PTT, BMP #### [facility] [address] [place] [id number] [place] Chloride [Moles/Vol] 110 mmol/L High 98-107 [facility] Comment on above: Performed By: #### D IFF CBC, LACTIC, ESR, PT, PTT, BMP #### [facility] [address] [place] [id number] [place] CO2 [Moles/Vol] 21.9 mmol/L Normal 21.0-31.0 [facility] Comment on above: Performed By: #### D IFF CBC, LACTIC, ESR, PT, PTT, BMP #### [facility] [address] [place] [id number] [place] Creatinine [Mass/Vol] 0.92 mg/dL Normal 0.60-1.20 [facility] Comment on above: Performed By: #### D IFF CBC, LACTIC, ESR, PT, PTT, BMP #### [facility] [address] [place] [address] [place] Creatinine Clr Calc Pharmacy 76.54 Normal [facility] Comment on above: Result Comment: PERF ORMED BY: [place] [address] PATHOLOGIST CIVIL SERVICE CLERK SCOTTIE LEE M.D. Performed By: #### D IFF CBC, LACTIC, ESR, PT, PTT, BMP #### [place] [address] [place] GFR/1.73 sq M.predicted MDRD (S/P/Bld) [Vol rate/Area] mL/min/{1.73_m2} Normal [facility] Comment on above: Performed By: #### D IFF CBC, LACTIC, ESR, PT, PTT, BMP #### [place] [address] [place] Glucose [Mass/Vol] 100 mg/dL Normal 70-100 [facility] Comment on above: Result Comment: [facility] Glucose Reference Range is dependent on time and content of last meal. Glucose of more than 200 mg/dL in a nonstressed, ambulatory subject supports the diagnosis of Diabetes Mellitus. ADA recommended reference range Performed By: #### D IFF CBC, LACTIC, ESR, PT, PTT, BMP #### [place] [address] [place] Potassium [Moles/Vol] 4.0 mmol/L Normal 3.5-5.1 [facility] Comment on above: Performed By: #### D IFF CBC, LACTIC, ESR, PT, PTT, BMP #### [place] [address] [place] Sodium [Moles/Vol] 141 mmol/L Normal 136-145 [facility] Comment on above: Performed By: #### D IFF CBC, LACTIC, ESR, PT, PTT, BMP #### [place] [address] [place] Urea nitrogen [Mass/Vol] 17 mg/dL Normal 7-25 [facility] Comment on above: Performed By: #### D IFF CBC, LACTIC, ESR, PT, PTT, BMP #### [facility] [address] Basophils Auto (Bld) [#/Vol] Ordered By: Carissa Mejia on 09-28-2024 Basophils (Bld) [#/Vol] Automated basophil count [facility] Basophils/100 WBC Auto (Bld) Ordered By: Carissa Mejia on 09-28-2024 Basophils/100 WBC (Bld) Automated basophil % [facility] Calcium [Mass/volume] in Ser um or PlasmaOrdered By: Carissa Mejia on 09-28-2024 Calcium [Mass/Vol] Calcium [Mass/volume ] in Serum or Plasma 8.6-10.3 [facility] Carbon dioxide, total [Moles /volume] in Serum or PlasmaOrdered By: Carissa Mejia on 09-28-2024 CO2 [Moles/Vol] Carbon dioxide, tota l [Moles/volume] in Serum or Plasma 21.0-31.0 [facility] Chloride [Moles/volume] in S dalia or PlasmaOrdered By: Carissa Mejia on 09-28-2024 Chloride [Moles/Vol] Chloride [Moles/vol ume] in Serum or Plasma High 98-107 [facility] Creatinine [Mass/volume] in Serum or PlasmaOrdered By: Carissa Mejia on 09-28-2024 Creatinine [Mass/Vol] Creatinine [Mass/v olume] in Serum or Plasma 0.60-1.20 [facility] Diff and CBCon 09-28-2024 Anisocytosis Ql (Bld) Slight Normal [facility] Comment on above: Performed By: #### D IFF CBC, LACTIC, ESR, PT, PTT, BMP #### [facility] [address] Erythrocyte distribution width (RBC) [Ratio] 12.6 % Normal 11.9-15.3 [facility] Comment on above: Performed By: #### D IFF CBC, LACTIC, ESR, PT, PTT, BMP #### [facility] [address] Giant Platelet Tally 1 /100{WBC} Normal [facility] Comment on above: Performed By: #### D IFF CBC, LACTIC, ESR, PT, PTT, BMP #### [address] Hematocrit (Bld) [Volume fraction] 41.7 % Normal 34.0-46.4 [facility] Comment on above: Performed By: #### D IFF CBC, LACTIC, ESR, PT, PTT, BMP #### [address] Hemoglobin (Bld) [Mass/Vol] 14.4 g/dL Normal 11.8-15.4 [facility] Comment on above: Performed By: #### D IFF CBC, LACTIC, ESR, PT, PTT, BMP #### [address] Large Platelets Slight Normal [facility] Comment on above: Performed By: #### D IFF CBC, LACTIC, ESR, PT, PTT, BMP #### [address] Lymphocytes/100 WBC (Bld) 14 % Low 18-42 [facility] Comment on above: Performed By: #### D IFF CBC, LACTIC, ESR, PT, PTT, BMP #### [address] MCH (RBC) [Entitic mass] 31.1 pg Normal 24.7-34.3 [facility] Comment on above: Performed By: #### D IFF CBC, LACTIC, ESR, PT, PTT, BMP #### [address] MCV (RBC) [Entitic vol] 90.2 fL Normal 80-100 [facility] Comment on above: Performed By: #### D IFF CBC, LACTIC, ESR, PT, PTT, BMP #### [address] Mean Corpuscular HGB Conc 34.5 g/dL Normal 32.0-35.0 [facility] Comment on above: Performed By: #### D IFF CBC, LACTIC, ESR, PT, PTT, BMP #### [address] Microcytosis Slight Normal [facility] Comment on above: Performed By: #### D IFF CBC, LACTIC, ESR, PT, PTT, BMP #### [address] Monocytes/100 WBC (Bld) 17.24 % Normal 0.00-20.00 [facility] Comment on above: Performed By: #### D IFF CBC, LACTIC, ESR, PT, PTT, BMP #### [address] Monocytes/100 WBC (Bld) 4 % Normal 2-11 [facility] Comment on above: Performed By: #### D IFF CBC, LACTIC, ESR, PT, PTT, BMP #### [address] Myelocytes 3 % High 0-0 [facility] Comment on above: Performed By: #### D IFF CBC, LACTIC, ESR, PT, PTT, BMP #### [address] Platelet Estimate Normal Normal Normal [facility] Comment on above: Performed By: #### D IFF CBC, LACTIC, ESR, PT, PTT, BMP #### [address] Platelet mean volume (Bld) [Entitic vol] 7.3 fL Normal 6.3-10.7 [facility] Comment on above: Performed By: #### D IFF CBC, LACTIC, ESR, PT, PTT, BMP #### [place] [address] [place] Platelets (Bld) [#/Vol] 375 10*3/uL Normal 150-450 [facility] Comment on above: Performed By: #### D IFF CBC, LACTIC, ESR, PT, PTT, BMP #### [place] [address] [place] Poikilocytosis Slight Normal [facility] Comment on above: Performed By: #### D IFF CBC, LACTIC, ESR, PT, PTT, BMP #### [facility] [address] RBC (Bld) [#/Vol] 4.63 10*6/uL Normal 3.60-5.00 [facility] Comment on above: Performed By: #### D IFF CBC, LACTIC, ESR, PT, PTT, BMP #### [facility] [address] Segmented neutrophils/100 WBC (Bld) 80 % High 50-70 [facility] Comment on above: Performed By: #### D IFF CBC, LACTIC, ESR, PT, PTT, BMP #### [facility] [address] Stomatocytes Slight Normal [facility] Comment on above: Performed By: #### D IFF CBC, LACTIC, ESR, PT, PTT, BMP #### [facility] [address] WBC (Bld) [#/Vol] 11.3 10*3/uL Normal 3.8-11.6 [facility] Comment on above: Performed By: #### D IFF CBC, LACTIC, ESR, PT, PTT, BMP #### [address] ECG 12 lead ECGon 09-28-2024 ECG 12 lead ECG [facility] [place] [address] Electrocardiograph Report Signed Patient: Karolina Nicole MR#: [id number] : 1985 Acct:[id number] Age/Sex: 39 / F ADM Date: 09/28/24 Loc: Room: [address] [place] [address] Type: ADM INOo Attending Dr: Sis Verma DO Ordering Provider: Carissa Mejia APRN Date of Service: 09/28/24 ECG/ECG 12 lead ECG: Recheck/Abnormal Lab/Rx Copies to: Test Reason : Blood Pressure : */* mmHG Vent. Rate : 108 BPM Atrial Rate : 108 BPM P-R Int : 132 ms QRS Dur : 88 ms QT Int : 348 ms P-R-T Axes : 66 53 49 degrees QTcB Int : 466 ms Sinus tachycardia with occasional premature ventricular complexes Possible Lateral infarct , age undetermined Possible Inferior infarct (cited on or before 28-Sep-2024) Abnormal ECG When compared with ECG of 28-Sep-2024 20:39, (Unconfirmed) premature ventricular complexes are now present ST now depressed in Anterior leads QT has lengthened Confirmed by KAT SOSA DO ([id number]) on 09/29/2024 5:50:03 AM Referred By: Electronically Signed By: KAT SOSA DO Transcribed By: MUS Signed By Kat Sosa DO 0550 Normal [facility] ECG 12 lead ECG [facility] [place] [address] Electrocardiograph Report Signed Patient: Karolina Nicole MR#: [id number] : 1985 Acct:[id number] Age/Sex: 39 / F ADM Date: 09/28/24 Loc: Room: [address] [place] [address] Type: ADM INOo Attending Dr: Sis Verma DO Ordering Provider: Carissa Mejia APRN Date of Service: 09/28/24 ECG/ECG 12 lead ECG: Recheck/Abnormal Lab/Rx Copies to: Test Reason : Blood Pressure : */* mmHG Vent. Rate : 76 BPM Atrial Rate : 76 BPM P-R Int : 152 ms QRS Dur : 88 ms QT Int : 366 ms P-R-T Axes : 55 70 66 degrees QTcB Int : 411 ms Normal sinus rhythm with sinus arrhythmia Cannot rule out Inferior infarct , age undetermined T wave abnormality, consider anterior ischemia Abnormal ECG When compared with ECG of 23-May-2024 15:02, No significant change was found Confirmed by KAT SOSA DO ([id number]) on 09/29/2024 5:50:46 AM Referred By: Electronically Signed By: KAT SOSA DO Transcribed By: MUS Signed By Kat Sosa DO 0550 Normal [facility] Eosinophils Auto (Bld) [#/Vo l]Ordered By: Carissa Mejia on 09-28-2024 Eosinophils (Bld) [#/Vol] Automated eosinophil count [facility] Eosinophils/100 WBC Auto (Bl d)Ordered By: Carissa Mejia on 09-28-2024 Eosinophils/100 WBC (Bld) Automated eosinophil % [facility] Erythrocyte Sedimentation Ra shelbie 09-28-2024 ESR (Bld) [Velocity] 6 mm/h Normal 0-19 [facility] Comment on above: Result Comment: PERF ORMED BY: [place] [address] PATHOLOGIST CIVIL SERVICE CLERK SCOTTIE LEE M.D. Performed By: #### D IFF CBC, LACTIC, ESR, PT, PTT, BMP #### [address] Erythrocyte distribution wid th Auto (RBC) [Ratio]Ordered By: Carissa Mejia on 09-28-2024 Erythrocyte distribution width (RBC) [Ratio] Erythrocyte distribution width [Ratio] by Automated count 11.9-15.3 [facility] Erythrocyte morphology findi ng [Identifier] in BloodOrdered By: Carissa Mejia on 09-28-2024 RBC morphology finding Nom (Bld) RBC morphology [facility] Erythrocyte sedimentation ra te by Photometric methodOrdered By: Carissa Mejia on 09-28-2024 ESR Photometric method (Bld) [Velocity] Erythrocyte sedimentation rate by Photometric method 0-19 [facility] Giant platelets/100 leukocyt es [Ratio] in Blood by Manual countOrdered By: Carissa Mejia on 09-28-2024 Giant platelets/100 WBC Manual cnt (Bld) [Ratio] Giant platelets/100 leukocytes [Ratio] in Blood by Manual count [facility] Glucose [Mass/volume] in Ser um or PlasmaOrdered By: Carissa Mejia on 09-28-2024 Glucose [Mass/Vol] Glucose [Mass/volume ] in Serum or Plasma 70-100 [facility] Comment on above: ADA recommended refe rence rangeRandom Glucose Reference Range is dependent on time and content of last meal. Glucose of more than 200 mg/dL in a nonstressed, ambulatory subject supports the diagnosis of Diabetes Mellitus. Hematocrit Auto (Bld) [Volum e fraction]Ordered By: Carissa Mejia on 09-28-2024 Hematocrit (Bld) [Volume fraction] Hematocrit [Volume Fraction] of Blood by Automated count 34.0-46.4 [facility] Hemoglobin [Mass/volume] in BloodOrdered By: Carissa Mejia on 09-28-2024 Hemoglobin (Bld) [Mass/Vol] Hemoglobin [Mass/volume] in Blood 11.8-15.4 [facility] INR in Platelet poor plasma by Coagulation assayOrdered By: Carissa Mejia on 09-28-2024 INR Coag (PPP) [Relative time] INR in Platelet poor plasma by Coagulation assay [facility] Comment on above: INR Therapeutic Rang e A) Pre- and Peroperative OAT started two weeks before surgery. NOT HIP SURGERY: 1.5 - 2.5 HIP SURGERY: 2 - 3B) Primary and secondary prevention of venous THROMBOSIS: 2 - 3C) Active venous thrombosis, pulmonary embolismand prevention of recurrent venous thrombosis: 2 - 3D) Prevention of arterial thromboembolismincluding patients with mechanical heart valves: 3 - 4.5 Lactate [Moles/volume] in Se rum or PlasmaOrdered By: Carissa Mejia on 09-28-2024 Lactate [Moles/Vol] Lactate [Moles/volum e] in Serum or Plasma 0.5-1.9 [facility] Comment on above: Lactic Acid referenc e range has been updated to 0.5 1.9 mmol/L and the critical range of 2.0 or greater. Lactic Acidon 09-28-2024 Lactate [Moles/Vol] 0.8 mmol/L Normal 0.5-1.9 [facility] Comment on above: Result Comment: Lact ic Acid reference range has been updated to 0.5 ? 1.9 mmol/L and the critical range of 2.0 or greater. PERFORMED BY: [facility] [address] [place] [address] PATHOLOGIST CIVIL SERVICE CLERK SCOTTIE LEE M.D. Performed By: #### D IFF CBC, LACTIC, ESR, PT, PTT, BMP #### [facility] [address] [place] [id number] [facility] Leukocytes [#/volume] correc nisha for nucleated erythrocytes in Blood by Automated counOrdered By: Carissa Mejia on 09-28-2024 WBC corrected for nucl RBC Auto (Bld) [#/Vol] Leukocytes [#/volume] corrected for nucleated erythrocytes in Blood by Automated coun 3.8-11.6 [facility] Lymphocytes Auto (Bld) [#/Vo l]Ordered By: Carissa Mejia on 09-28-2024 Lymphocytes (Bld) [#/Vol] Lymphocytes [#/volume] in Blood by Automated count [facility] Lymphocytes/100 WBC Auto (Bl d)Ordered By: Carissa Mejia on 09-28-2024 Lymphocytes/100 WBC (Bld) Lymphocytes/100 leukocytes in Blood by Automated count [facility] Lymphocytes/100 WBC Manual c nt (Bld)Ordered By: Carissa Mejia on 09-28-2024 Lymphocytes/100 WBC (Bld) Lymphocytes/100 leukocytes in Blood by Manual count Low 18-42 [facility] MCH Auto (RBC) [Entitic mass ]Ordered By: Carissa Mejia on 09-28-2024 MCH (RBC) [Entitic mass] MCH [Entitic mass] by Automated count 24.7-34.3 [facility] MCHC Auto (RBC) [Mass/Vol]Or dered By: Carissa Mejia on 09-28-2024 MCHC (RBC) [Mass/Vol] MCHC [Mass/volume] by Automated count 32.0-35.0 [facility] MCV Auto (RBC) [Entitic vol] Ordered By: Carissa Mejia on 09-28-2024 MCV (RBC) [Entitic vol] MCV [Entitic volume] by Automated count 80-100 [facility] Microcytes LM Ql (Bld)Ordere d By: Carissa Mejia on 09-28-2024 Microcytes Ql (Bld) Microcytes [Presence ] in Blood by Light microscopy [facility] Monocyte distribution width [Entitic volume] in Blood by AutomatedOrdered By: Carissa Mejia on 09-28-2024 Monocyte distribution width Auto (Bld) [Entitic vol] Monocyte distribution width [Entitic volume] in Blood by Automated 0.00-20.00 [facility] Monocytes Auto (Bld) [#/Vol] Ordered By: Carissa Mejia on 09-28-2024 Monocytes (Bld) [#/Vol] Automated blood monocyte count [facility] Monocytes/100 WBC Auto (Bld) Ordered By: Carissa Mejia on 09-28-2024 Monocytes/100 WBC (Bld) Automated monocyte % [facility] Monocytes/100 WBC Manual cnt (Bld)Ordered By: Carissa Mejia on 09-28-2024 Monocytes/100 WBC (Bld) Monocytes/100 leukocytes in Blood by Manual count 2-11 [facility] Myelocytes/100 WBC Manual cn t (Bld)Ordered By: Carissa Mejia on 09-28-2024 Myelocytes/100 WBC (Bld) Myelocytes/100 leukocytes in Blood by Manual count High 0-0 [facility] Neutrophils Auto (Bld) [#/Vo l]Ordered By: Carissa Mejia on 09-28-2024 Neutrophils (Bld) [#/Vol] Neutrophils [#/volume] in Blood by Automated count [facility] Neutrophils/100 WBC Auto (Bl d)Ordered By: Carissa Mejia on 09-28-2024 Neutrophils/100 WBC (Bld) Automated neutrophil % [facility] No Panel InformationOrdered By: Carissa Mejia on 09-28-2024 Estimated GFR (CKD-EPI) > 60.0 mL/Min [facility] Creatinine Clearance (Chem 76.54 [facility] Nucleated erythrocytes [Pres ence] in Blood by Automated countOrdered By: Carissa Mejia on 09-28-2024 Nucleated RBC Auto Ql (Bld) Nucleated erythrocytes [Presence] in Blood by Automated count [facility] Partial Thromboplastin Timeo n 09-28-2024 aPTT Coag (Bld) [Time] 25.7 s Normal 25.1-36.5 Th e [facility] Comment on above: Result Comment: A he matocrit value greater than 55% may lead to inaccurate results in coagulation testing. Patients having hematocrit values >55% require a special collection tube for coagulation studies. Please contact the laboratory at [phone] for redraw instructions. PERFORMED BY: [facility] [address] [place] [address] PATHOLOGIST CIVIL SERVICE CLERK SCOTTIE LEE M.D. Performed By: #### D IFF CBC, LACTIC, ESR, PT, PTT, BMP #### [facility] [address] [place] [address] [facility] Platelet adequacy [Presence] in Blood by Light microscopyOrdered By: Carissa Mejia on 09-28-2024 Platelets LM Ql (Bld) Platelet adequacy [Presence] in Blood by Light microscopy Normal [facility] Platelet mean volume Auto (B ld) [Entitic vol]Ordered By: Carissa Mejia on 09-28-2024 Platelet mean volume (Bld) [Entitic vol] Platelet mean volume [Entitic volume] in Blood by Automated count 6.3-10.7 [facility] [facility] Platelet morphology finding [Identifier] in BloodOrdered By: Carissa Mejia on 09-28-2024 Platelet morphology finding Nom (Bld) Platelet morphology finding [Identifier] in Blood [facility] Platelets Auto (Bld) [#/Vol] Ordered By: Carissa Mejia on 09-28-2024 Platelets (Bld) [#/Vol] Platelets [#/volume] in Blood by Automated count 150-450 [facility] Platelets Large [Presence] i n Blood by Light microscopyOrdered By: Carissa Mejia on 09-28-2024 Platelets Large LM Ql (Bld) Platelets Large [Presence] in Blood by Light microscopy [facility] Poikilocytosis [Presence] in Blood by Light microscopyOrdered By: Carissa Mejia on 09-28-2024 Poikilocytosis LM Ql (Bld) Poikilocytosis [Presence] in Blood by Light microscopy [facility] Potassium [Moles/volume] in Serum or PlasmaOrdered By: Carissa Mejia on 09-28-2024 Potassium [Moles/Vol] Potassium [Moles/v olume] in Serum or Plasma 3.5-5.1 [facility] Prothrombin Time INRon 09-28 INR Coag (PPP) [Relative time] 0.9 {INR} Normal [facility] Comment on above: Result Comment: INR Therapeutic Range A) Pre- [...] valves: 3 - 4.5 Performed By: #### D IFF CBC, LACTIC, ESR, PT, PTT, BMP #### [facility] [address] [id number] [facility] PT Coag (PPP) [Time] 10.7 s Normal 9.0-12.9 [facility] Comment on above: Result Comment: A he matocrit value greater than 55% may lead to inaccurate results in coagulation testing. Patients having hematocrit values >55% require a special collection tube for coagulation studies. Please contact the laboratory at [phone] for redraw instructions. Performed By: #### D IFF CBC, LACTIC, ESR, PT, PTT, BMP #### [facility] [address] [id number] [facility] Prothrombin time (PT)Ordered By: Carissa Mejia on 09-28-2024 PT Coag (PPP) [Time] Prothrombin time (PT) 9.0- 12.9 [facility] Comment on above: A hematocrit value g reater than 55% may lead to inaccurate results in coagulation testing. Patients having hematocrit values >55% require a special collection tube for coagulation studies. Please contact the laboratory at [phone] for redraw instructions. RBC Auto (Bld) [#/Vol]Ordere d By: Carissa Mejia on 09-28-2024 RBC (Bld) [#/Vol] Erythrocytes [#/volu me] in Blood by Automated count 3.60-5.00 [facility] Segmented neutrophils/100 WB C Manual cnt (Bld)Ordered By: Carissa Mejia on 09-28-2024 Segmented neutrophils/100 WBC (Bld) Manual blood segmented neutrophils/100 leukocytes High 50-70 [facility] Serum or plasma anion gap de terminationOrdered By: Carissa Mejia on 09-28-2024 Anion gap [Moles/Vol] Serum or plasma an ion gap determination 6.0-15.0 [facility] Sodium [Moles/volume] in Ser um or PlasmaOrdered By: Carissa Mejia on 09-28-2024 Sodium [Moles/Vol] Sodium [Moles/volume ] in Serum or Plasma 136-145 [facility] Stomatocytes [Presence] in B lood by Light microscopyOrdered By: Carissa Mejia on 09-28-2024 Stomatocytes LM Ql (Bld) Red blood cell stomatocyte detection [facility] Troponin I High Sensitivityo n 09-28-2024 Troponin I High Sensitivity 4 Normal 0-15 [facility] Comment on above: Result Comment: The Troponin units of report have been changed to meet the Chest Pain Accreditation requirement, element EC5.M1l2. Troponin units are changed from pg/ml to ng/L. Also, the decimal is removed and results are in whole numbers. PERFORMED BY: [place] [address] PATHOLOGIST CIVIL SERVICE CLERK SCOTTIE LEE M.D. Performed By: #### H S TROP #### [address] Troponin I.cardiac [Mass/vol ume] in Serum or Plasma by Detection limit <= 0.01 ng/Ordered By: Carissa Mejia on 09-28-2024 Troponin I.cardiac DL <= 0.01 ng/mL [Mass/Vol] Troponin I.cardiac [Mass/volume] in Serum or Plasma by Detection limit <= 0.01 ng/ 0-15 [facility] Comment on above: The Troponin units o f report have been changed to meet the Chest Pain Accreditation requirement, element EC5.M1l2. Troponin units are changed from pg/ml to ng/L. Also, the decimal is removed and results are in whole numbers. Urea nitrogen [Mass/volume] in Serum or PlasmaOrdered By: Carissa Mejia on 09-28-2024 Urea nitrogen [Mass/Vol] Urea nitrogen [Mass/volume] in Serum or Plasma 7-25 [facility] WBC Auto (Bld) [#/Vol]Ordere d By: Carissa Mejia on 09-28-2024 WBC (Bld) [#/Vol] Leukocytes [#/volume ] in Blood by Automated count 3.8-11.6 [facility] X-ray reportOrdered By: Jayden Au on 09-28-2024 Study report [facility] [place] [address] XRay Report Signed Patient: Karolina Nicole MR#: [id number] : 1985 Acct:[id number] Age/Sex: 39 / F ADM Date: 5 Loc: 3T Room: [address] [place] [address] Type: ADM INOo Attending Dr: Sis Verma DO Copies to: AMISHA Lee, ~ Ordering Provider: Carissa Mejia APRN Date of Service: 09/28/24 XR/XR chest 1V portable: Recheck/Abnormal Lab/Rx Plain film chest Single view HISTORY: Chest pain COMPARISON: 05/23/2024 FINDINGS: SUPPORT DEVICES: None POSTSURGICAL CHANGES: None HEART: Within normal limits PULMONARY MARY: Within normal limits MEDIASTINUM: Unremarkable LUNGS AND PLEURA: No acute lung process, pleural effusion or pneumothorax identified. BONY STRUCTURES: Intact ADDITIONAL FINDINGS None XR/XR chest 1V portable IMPRESSION: No acute process. Impression dictated by: Ming Au M.D. 09/28/2024 9:44 PM Dictation Location: [address] [address] Transcribed By: [facility] 09/28/242143 Dictated By: Ming Au DO 09/28/242142 Signed By: 09/28/242143 [facility] XR chest 1V portableon 09-28 XR chest 1V portable [address] [place] [id number] XRay Report Signed Patient: Karolina Nicole MR#: [id number] : 1985 Acct:[id number] Age/Sex: 39 / F ADM Date: 09/28/24 Loc: 3T Room: 3Q9909-4 Type: ADM INOo Attending Dr: Sis Verma DO Copies to: AMISHA Lee DO Ordering Provider: Carissa Mejia APRN Date of Service: 09/28/24 XR/XR chest 1V portable: Recheck/Abnormal Lab/Rx Plain film chest Single view HISTORY: Chest pain COMPARISON: 05/23/2024 FINDINGS: SUPPORT DEVICES: None POSTSURGICAL CHANGES: None HEART: Within normal limits PULMONARY MARY: Within normal limits MEDIASTINUM: Unremarkable LUNGS AND PLEURA: No acute lung process, pleural effusion or pneumothorax identified. BONY STRUCTURES: Intact ADDITIONAL FINDINGS None XR/XR chest 1V portable IMPRESSION: No acute process. Impression dictated by: Ming Au M.D. 09/28/2024 9:44 PM Dictation Location: [place] [address] Transcribed By: [facility] 09/28/242143 Dictated By: Ming Au DO 09/28/242142 Signed By: 09/28/242143 Normal [facility] aPTT in Platelet poor plasma by Coagulation assayOrdered By: Carissa Mejia on 09-28-2024 aPTT Coag (PPP) [Time] Activated partial thromboplastin time (aPTT) in platelet poor plasma by coagulation a 25.1-36.5 [facility] Comment on above: A hematocrit value g reater than 55% may lead to inaccurate results in coagulation testing. Patients having hematocrit values >55% require a special collection tube for coagulation studies. Please contact the laboratory at [phone] for redraw instructions. Basic metabolic 2000 panelon 09-22-2024 Anion gap [Moles/Vol] 15 mmol/L Normal 8-15 [facility] Comment on above: Order Comment: Speci men Type: BLOOD SPECIMENOrdering Facility: [facility] Address: [address] [place] [address] Performed By: #### 2 4321-2 ####[facility] LABCLIA [id number] [place] [address] [place] Calcium [Mass/Vol] 9.3 mg/dL Normal 8.5-10.2 [facility] Comment on above: Order Comment: Speci men Type: BLOOD SPECIMENOrdering Facility: [facility] Address: [address] [place] [address] Performed By: #### 2 4321-2 ####[facility] LABCLIA [id number] [facility] [address] [address] [place] Chloride [Moles/Vol] 109 mmol/L High 98-107 [facility] Comment on above: Order Comment: Speci men Type: BLOOD SPECIMENOrdering Facility: [facility] Address: [address] [place] [address] Performed By: #### 2 4321-2 ####[facility] LABCLIA [id number] [place] [address] [place] CO2 [Moles/Vol] 14 mmol/L Low 22-30 [facility] Comment on above: Order Comment: Speci men Type: BLOOD SPECIMENOrdering Facility: [facility] Address: [address] [place] [address] Performed By: #### 2 4321-2 ####[facility] LABCLIA [id number] [place] [address] [place] Creatinine [Mass/Vol] 0.75 mg/dL Normal 0.58-0.96 [facility] Comment on above: Order Comment: Speci men Type: BLOOD SPECIMENOrdering Facility: [facility] Address: [address] [place] [address] Performed By: #### 2 4321-2 ####[facility] LABCLIA [id number] [place] [id number] [place] Creatinine and Glomerular filtration rate.predicted panel (S/P/Bld) 104 mL/min/1.73m??? Normal >=60 [facility] Comment on above: Order Comment: Speci men Type: BLOOD SPECIMENOrdering Facility: [facility] Address: [address] [place] [address] Result Comment: Pam mated Glomerular Filtration Rate [...] actual GFR. Performed By: #### 2 4321-2 ####[facility] LABCLIA [id number] [place] [address] [place] Glucose [Mass/Vol] 162 mg/dL High 74-99 [facility] Comment on above: Order Comment: Shahzad styles Type: BLOOD SPECIMENOrdering Facility: [facility] Address: [address] [place] [address] Result Comment: The [employer] Diabetes Association (ADA) provides guidance for cutoff [...] Standards of Medical Care in Diabetes 2016, British Diabetes Association. Diabetes Care. 2016.39(Suppl 1). Performed By: #### 2 4321-2 ####[facility] LABIA [id number] [address] [address] [place] Potassium [Moles/Vol] 3.6 mmol/L Low 3.7-5.1 [facility] Comment on above: Order Comment: Shahzad styles Type: BLOOD SPECIMENOrdering Facility: [facility] Address: [address] [id number] Performed By: #### 2 4321-2 ####[facility] LABIA [id number] [address] [address] [place] Sodium [Moles/Vol] 138 mmol/L Normal 136-144 [facility] Comment on above: Order Comment: Speci men Type: BLOOD SPECIMENOrdering Facility: [facility] Address: [address] [place] [address] Performed By: #### 2 4321-2 ####[facility] LABCLIA [id number] [place] [address] [place] Urea nitrogen [Mass/Vol] 20 mg/dL Normal 7-21 [facility] Comment on above: Order Comment: Speci men Type: BLOOD SPECIMENOrdering Facility: [facility] Address: [address] [place] [address] Performed By: #### 2 4321-2 ####[facility] LABIA [id number] [place] [address] [place] CBC W Auto Differential pane l (Bld)on 09-22-2024 Basophils (Bld) [#/Vol] 10*3/uL Normal <0.11 [facility] Comment on above: Order Comment: Speci men Type: BLOOD SPECIMENOrdering Facility: [facility] Address: [address] [place] [address] Performed By: #### 5 7021-8 ####[facility] LABCLIA [id number] [place] [address] [place] Basophils/100 WBC (Bld) 0.1 % Normal [facility] Comment on above: Order Comment: Speci men Type: BLOOD SPECIMENOrdering Facility: [facility] Address: [address] [place] [address] Performed By: #### 5 7021-8 ####[facility] LABCLIA [id number] [place] [address] [place] Differential cell count method Nom (Bld) Auto Normal [facility] Comment on above: Order Comment: Speci men Type: BLOOD SPECIMENOrdering Facility: [facility] Address: [address] [place] [address] Performed By: #### 5 7021-8 ####[facility] LABCLIA [id number] [address], [place] [address] [place] Eosinophils (Bld) [#/Vol] 10*3/uL Normal <0.46 [facility] Comment on above: Order Comment: Speci men Type: BLOOD SPECIMENOrdering Facility: [facility] Address: [address] [place] [address] Performed By: #### 5 7021-8 ####[facility] LABCLIA [id number] [address], [place] [address] [place] Eosinophils/100 WBC (Bld) 0.0 % Normal [facility] Comment on above: Order Comment: Speci men Type: BLOOD SPECIMENOrdering Facility: [facility] Address: [address] [place] [address] Performed By: #### 5 7021-8 ####[facility] LABCLIA [id number] [address], [place] [address] [place] Erythrocyte distribution width (RBC) [Ratio] 12.1 % Normal 11.5-15.0 [facility] Comment on above: Order Comment: Speci men Type: BLOOD SPECIMENOrdering Facility: [facility] Address: [address] [place] [address] Performed By: #### 5 7021-8 ####[facility] LABCLIA [id number] [place] [address] [place] Hematocrit (Bld) [Volume fraction] 36.2 % Normal 36.0-46.0 [facility] Comment on above: Order Comment: Speci men Type: BLOOD SPECIMENOrdering Facility: [facility] Address: [address] [place] [address] Performed By: #### 5 7021-8 ####[facility] LABCLIA [id number] [address], [place] [address] [place] Hemoglobin (Bld) [Mass/Vol] 13.3 g/dL Normal 11.5-15.5 [facility] Comment on above: Order Comment: Speci men Type: BLOOD SPECIMENOrdering Facility: [facility] Address: [address] [place] [address] Performed By: #### 5 7021-8 ####[facility] LABCLIA [id number] [place] [address] [place] Immature granulocytes (Bld) [#/Vol] 0.14 10*3/uL High <0.10 [facility] Comment on above: Order Comment: Speci men Type: BLOOD SPECIMENOrdering Facility: [facility] Address: [address] [place] [address] Performed By: #### 5 7021-8 ####[facility] LABCLIA [id number] [place] [address] [place] Immature granulocytes/100 WBC (Bld) 1.0 % Normal [facility] Comment on above: Order Comment: Speci men Type: BLOOD SPECIMENOrdering Facility: [facility] Address: [address] [place] [address] Performed By: #### 5 7021-8 ####[facility] LABCLIA [id number] [place] [address] [place] Lymphocytes (Bld) [#/Vol] 1.24 10*3/uL Normal 1.00-4.00 [facility] Comment on above: Order Comment: Speci men Type: BLOOD SPECIMENOrdering Facility: [facility] Address: [address] [place] [address] Performed By: #### 5 7021-8 ####[facility] LABCLIA [id number] [place] [address] [place] Lymphocytes/100 WBC (Bld) 8.5 % Normal [facility] Comment on above: Order Comment: Speci men Type: BLOOD SPECIMENOrdering Facility: [facility] Address: [address] [place] [address] Performed By: #### 5 7021-8 ####[facility] LABIA [id number] [place] [address] [place] MCH (RBC) [Entitic mass] 31.4 pg Normal 26.0-34.0 [facility] Comment on above: Order Comment: Speci men Type: BLOOD SPECIMENOrdering Facility: [facility] Address: [address] [place] [address] Performed By: #### 5 7021-8 ####[facility] LABIA [id number] [place] [address] [place] MCHC (RBC) [Mass/Vol] 36.7 g/dL High 30.5-36.0 [facility] Comment on above: Order Comment: Speci men Type: BLOOD SPECIMENOrdering Facility: [facility] Address: [address] [place] [address] Performed By: #### 5 7021-8 ####[facility] LABIA [id number] [place] [address] [place] MCV (RBC) [Entitic vol] 85.6 fL Normal 80.0-100.0 [facility] Comment on above: Order Comment: Speci men Type: BLOOD SPECIMENOrdering Facility: [facility] Address: [address] [place] [address] Performed By: #### 5 7021-8 ####[facility] LABIA [id number] [place] [address] [place] Monocytes (Bld) [#/Vol] 0.29 10*3/uL Normal <0.87 [facility] Comment on above: Order Comment: Speci men Type: BLOOD SPECIMENOrdering Facility: [facility] Address: [address] [place] [address] Performed By: #### 5 7021-8 ####[facility] LABIA [id number] [address] [place] [address] [place] Monocytes/100 WBC (Bld) 2.0 % Normal [facility] Comment on above: Order Comment: Speci men Type: BLOOD SPECIMENOrdering Facility: [facility] Address: [address] [place] [address] Performed By: #### 5 7021-8 ####[facility] LABCLIA [id number] [address], [place] [address] [place] Neutrophils (Bld) [#/Vol] 12.90 10*3/uL High 1.45-7.50 [facility] Comment on above: Order Comment: Speci men Type: BLOOD SPECIMENOrdering Facility: [facility] Address: [address] [place] [address] Performed By: #### 5 7021-8 ####[facility] LABCLIA [id number] [place] [address] [place] Neutrophils/100 WBC (Bld) 88.4 % Normal [facility] Comment on above: Order Comment: Speci men Type: BLOOD SPECIMENOrdering Facility: [facility] Address: [address] [place] [address] Performed By: #### 5 7021-8 ####[facility] LABCLIA [id number] [address], [place] [address] [place] Nucleated RBC (Bld) [#/Vol] 10*3/uL Normal <0.01 [facility] Comment on above: Order Comment: Speci men Type: BLOOD SPECIMENOrdering Facility: [facility] Address: [address] [place] [address] Performed By: #### 5 7021-8 ####[facility] LABCLIA [id number] [address], [facility] [place] Nucleated RBC/100 WBC (Bld) [Ratio] 0.0 /100 WBC Normal [facility] Comment on above: Order Comment: Speci men Type: BLOOD SPECIMENOrdering Facility: [facility] Address: [address] [place] [address] Performed By: #### 5 7021-8 ####[facility] LABIA [id number] [place] [address] [place] Platelet mean volume (Bld) [Entitic vol] 9.5 fL Normal 9.0-12.7 [facility] Comment on above: Order Comment: Speci men Type: BLOOD SPECIMENOrdering Facility: [facility] Address: [address] [place] [address] Performed By: #### 5 7021-8 ####[facility] LABIA [id number] [place] [address] [place] Platelets (Bld) [#/Vol] 330 10*3/uL Normal 150-400 [facility] Comment on above: Order Comment: Speci men Type: BLOOD SPECIMENOrdering Facility: [facility] Address: [address] [place] [address] Performed By: #### 5 7021-8 ####[facility] LABIA [id number] [place] [address] [place] RBC (Bld) [#/Vol] 4.23 10*6/uL Normal 3.90-5.20 [facility] Comment on above: Order Comment: Speci men Type: BLOOD SPECIMENOrdering Facility: [facility] Address: [address] [place] [address] Performed By: #### 5 7021-8 ####[facility] LABIA [id number] [place] [address] [place] WBC (Bld) [#/Vol] 14.59 10*3/uL High 3.70-11.00 [facility] Comment on above: Order Comment: Speci men Type: BLOOD SPECIMENOrdering Facility: [facility] Address: [address] [place] [address] Performed By: #### 5 7021-8 ####[facility] LABCLIA [id number] [place] [address] [place] CTV HEAD WO/W IVCONon 2024 CTV HEAD WO/W IVCON * * *Final Report* * * DATE OF EXAM: Sep 22 2024 10:02PM [id number] - CTV HEAD WO/W IVCON / PROCEDURE REASON: Sinovenous thrombosis suspected?(Age >=19y) * * * * Physician Interpretation * * * * EXAMINATION: CTV HEAD WO/W IVCON HISTORY: Sinus venous thrombosis. TECHNIQUE: Routine CT of the brain without IV contrast. Spiral high resolution axial images were obtained through the head following bolus administration of intravenous contrast for CT venography. 3D maximum intensity projection images were created, reviewed and archived under direct physician supervision on the modality imaging workstation. MQ: CTVPlus_1 Contrast: 80 mL Omnipaque [address] Radiation dose: Integrated Dose-Length Product (DLP) for this visit = 1400 mGy*cm. CT Dose Reduction Employed: No dose reduction techniques were required COMPARISON: MR imaging performed 07/03/2024. RESULT: Acute change: No evidence of an acute infarct or other acute parenchymal process. ASPECT Score = 10 Hemorrhage: No evidence of acute intracranial hemorrhage. ECASS hemorrhagic transformation score: Not Applicable Mass Effect / Mass Lesion: There is no evidence of an intracranial mass or extra-axial fluid collection. No significant mass effect. Chronic change: None apparent. Parenchyma: There is no significant volume loss. The brain parenchyma is otherwise within normal limits for age. Ventricles: The ventricles are within normal limits of size and configuration for age. Other: The visualized paranasal sinuses are grossly clear. The skull and visualized extracranial soft tissues are grossly normal. VENOGRAM: Patency: The superior sagittal sinus, bilateral internal cerebral veins, vein of Cameron, straight sinus, bilateral transverse and sigmoid sinuses, and bilateral jugular bulbs enhance normally without tubular or occlusive filling defect to suggest acute dural venous sinus thrombosis. Minimal narrowing at the junction of transverse sinuses and sigmoid sinuses bilaterally similar to previous MRI. Dominance: The transverse and sigmoid sinuses are codominant. Visualized arterial structures: No evidence of proximal occlusion or large aneurysm within constraints of venous phase exam. [employer] Health Aide (topogram) images: Noncontributory. IMPRESSION: No acute findings. Patent dural venous sinuses. Wet Washer Machine: ANA Transcribe Date/Time: Sep 22 2024 10:14P Dictated by : LIA GREEN MD This examination was interpreted and the report reviewed and electronically signed by: LIA GREEN MD on Sep 22 2024 10:22PM EST [id number] [facility] ED PROGRESS NOTE (PROVIDER)o n 09-22-2024 ED PROGRESS NOTE (PROVIDER) HNO ID: [id number] Author: ALLAN ROYAL MD Service: Emergency Medicine Author Type: Physician Type: ED PROGRESS NOTE (PROVIDER) Filed: 09/23/2024 02:30 Note Text: ED CONTINUATION OF CARE NOTE Code Status: Full Code Assumed care from: Citizen [place] Presentation / Findings / Interventions / Plan / Items to Follow Up: 39 year old female with history of IIH who presents with a headache x 3 weeks, with anxiety, ADHD, recently increased diamox. Told by outpatient doctor that she had papilledema but not consistent with ED exam by primary ED team. CT brain CTV negative. Given migraine cocktail and now asleep at sign out. Needs reassessment, no need for emergent LP. Clinical Impressions as of 09/23/24 0228 IIH (idiopathic intracranial hypertension) Headache disorder May need Neuro consult and CDU admission of not better. 2:28 AM On re-evaluation headache is greatly improved. Neuroexam was nonfocal. We recommend close outpatient follow-up and neurology given great improvement in symptoms and offered her Diamox here but she states she can take at home. She is able to eat, ambulate tolerate p.o. Appointment request for Neurology placed in [facility] for possible non-emergent therapeutic LP at Neurology's discretion. Medical Decision Making Discussion with another provider: Consider observation but headache greatly improved. Disposition: Discharged home in improved condition. The patient was told to return to the Emergency Department immediately should any new or worsening symptoms develop such as fever, worsening pain, vision changes, or for any other concerns. The patient verbalized agreement to this plan. SIGNATURE: Allan Royal MD PATIENT NAME: Karolina Nicole DATE: September 22, 2024 TIME: 11:13 PM PAGER/CONTACT #: [facility] ED PROV NOTEon 05-15-2025 ED PROV NOTE HNO ID: [id number] Author: LENI BRYANT MD Service: Emergency Medicine Author Type: Physician Type: ED Provider Notes Filed: 09/23/2024 18:31 Note Text: ED Provider Note Patient Name: Karolina Nicole : 1985 SERVICE DATE: 09/22/24 History Patient presents with: Headache: Pt has intracranial hypertension and papilledema. Pt has been endorsing head ache and blurry vision x3 weeks. Pt endorses increased pain when looking down. Pt has had to have spinal tap in past. 39 yo F PMH IIH presenting with worsening headache and neck stiffness for 3 week duration. Also endorsing intermittent blurry vision but denies diplopia/color vision changes. Recently saw an eye doctor and reports she was noted to have 2+ papilledema but no visual field loss. Was started on a prednisone burst with prednisone 80 and has taken this for two days without improvement. Recently increased diamox from 1250 to 1500 two days ago as well. Denies any relief with any of these interventions. Tearful throughout examination. Pain is worse when sitting up and looking down and radiates from her neck to bilateral occipital region. Has pain with EOMs but denies any color vision changes. Reports it feels like her IIH flares in the past. Headaches have been so severe she's had to take off work. Reports photophobia and nausea with the headaches. Denies fevers/chill, sick contacts. Takes estrogen at home. Denies history of VTE. 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 used: No PAST MEDICAL HISTORY Diagnosis Date Fibromyalgia IIH (idiopathic intracranial hypertension) Osteoarthritis of multiple joints Palindromic rheumatism PAST SURGICAL HISTORY Procedure Laterality Date LAPAROSCOPIC CHOLECYSTECTOMY 07/29/2023 LAPAROSCOPY-ROBERTO 10/19/2012 LIGATE FALLOPIAN TUBE Bilateral 12/15/2011 REMOVAL OF OVARY/TUBE(S) Bilateral 10/19/2012 TOTAL ABDOM HYSTERECTOMY 10/19/2012 FAMILY HISTORY Problem Relation Age of Onset Cancer Mother Cataract Mother Hypertension Sister Cataract Sister Blindness Sister Heart Maternal Grandmother Glaucoma No Family History Detached Retina No Family History Macular Degen No Family History Social History Tobacco Use Smoking status: Every Day Current packs/day: 0.50 Types: Cigarettes Smokeless tobacco: Never Tobacco comments: 1 pack every 2 days Vaping Use Vaping status: Never Used Substance and Sexual Activity Alcohol use: Not Currently Drug use: Not Currently Sexual activity: Not on file Comment: not asked ALLERGIES Allergen Reactions Adhesive Rash Latex Rash Levaquin [Levofloxa* Swelling Swelling tongue Nickel Rash, Unknown Oxycodone Rash Oxycodone-Acetamino* Rash Silk Other: See Comments Silk tape Sulfadiazine Rash Sulfamethoxazole-Tr* Swelling Adhesive Tape (Cammie* Hives, Itching Review of Systems Constitutional: Negative for chills, fatigue and fever. HENT: Negative for rhinorrhea, sinus pressure and sinus pain. Eyes: Positive for photophobia and visual disturbance. Negative for itching. Respiratory: Negative for cough, choking and shortness of breath. Cardiovascular: Negative for chest pain, palpitations and leg swelling. Gastrointestinal: Positive for nausea. Negative for abdominal pain, diarrhea and vomiting. Neurological: Positive for headaches. Negative for tremors, seizures, syncope, speech difficulty and weakness. Psychiatric/Behavioral: The patient is nervous/anxious. Physical Exam Vitals [09/22/24 1416] BP Pulse Temp Temp src Resp SpO2 Weight Height 142/89 (!) 104 37.2 ?C (98.9 ?F) Oral 22 98 % -- -- Physical Exam Constitutional: Appearance: Normal appearance. She is not toxic-appearing or diaphoretic. HENT: Head: Normocephalic and atraumatic. Neck: Comments: Pain with ROM of neck flexion and extension Cardiovascular: Rate and Rhythm: Normal rate and regular rhythm. Heart sounds: No murmur heard. Pulmonary: Effort: Pulmonary effort is normal. No respiratory distress. Abdominal: General: Abdomen is flat. There is no distension. Palpations: Abdomen is soft. Musculoskeletal: Cervical back: Normal range of motion. Right lower leg: No edema. Left lower leg: No edema. Skin: General: Skin is warm and dry. Neurological: Mental Status: She is alert and oriented to person, place, and time. Cranial Nerves: Cranial nerves 2-12 are intact. Motor: No weakness, tremor or pronator drift. Coordination: Coordination is intact. Coordination normal. Heel to [place] Test normal. Comments: Pain with EOM movements, no nystagmus noted minimal blurring of optic discs bilaterally on funduscopic exam Diagnostic Testing ED Labs Ordered and Reviewed COMPLETE BLOOD COUNT AND DIFFERENTIAL - Abnormal; Notable for the following components: Result Value Ref Range WBC 14.59 (*) 3.70 - 11.00 k/uL MCHC 36.7 (*) 30.5 - 36.0 g/dL Abs Neut 12.90 (*) 1.45 - 7.50 k/uL Abs (more content not included)... [facility] ED Triage Noteon 09-22-2024 ED Triage Note HNO ID: [id number] Author: TIRSO ARAIZA MD Service: Emergency Medicine Author Type: Physician Type: ED Triage Notes Filed: 09/22/2024 14:23 Note Text: ED TRIAGE PROVIDER NOTE Patient Name: Karolina Nicole Service Date: 09/22/24 BRIEF HPI: This is a 39 year old female w known IIH send by ophthalmology for papilledema. She has had 3 1/2 weeks of headache and blurred vision consistent w her IIH flares. On Diamox and prednisone. BRIEF EXAM: NAD Awake and Alert Non labored breathing Tachycardic but regular INITIAL WORKUP AND DECISION MAKING: Orders Placed This Encounter CBC + DIFF BASIC METABOLIC PNL SIGNATURE: Tirso Araiza MD [facility] 09-21-2024 CNPN Telephone (OPHTMN) -------- KAROLINA NICOLE ([id number]) 1985 F Date Time Provider Department 09/21/24 [facility] During your visit today, we recorded the following information about you: Jassi Pulliam, Promise 09/21/2024 3:25 PM Signed Patient wants to know if the swelling is back and if she will need a spinal tap and if she does need to see you prior to her 12/05/24 appointment how soon? Patient does not have insurance right now and will need to get financial clearance. She has already spoken to the financial accounting manager and they are to call her back with a few options. I will try to resend the [employer] images for your review. I can't print those out unfortunately. Allergies As of Date: 09/21/2024 Noted Allergy Reaction ADHESIVE 03/11/2012 2 - Rash LATEX 08/30/2016 2 - Rash LEVAQUIN (LEVOFLOXACIN) 04/05/2024 7 - Swelling Comments: Swelling tongue NICKEL 08/30/2016 2 - Rash 16 - Unknown OXYCODONE 10/15/2020 2 - Rash OXYCODONE-ACETAMINOPHEN 03/11/2012 2 - Rash SILK 08/30/2016 14 - Other: See Comments Comments: Silk tape SULFADIAZINE 09/29/2023 2 - Rash SULFAMETHOXAZOLE-TRIMETH OPRIM 12/25/2023 7 - Swelling ADHESIVE TAPE (ROSINS) 05/11/2019 4 - Hives 9 - Itching Date Reviewed: 08/04/2024 Reviewed by: Lani Bonilla MA - Fully Assessed Prescriptions as of 09/21/2024 - acetaZOLAMIDE (DIAMOX) 250 mg tablet Take 3 tablets by mouth every morning AND 3 tablets daily at bedtime. - predniSONE (DELTASONE) 20 mg tablet Take 2 tablets (40 mg) twice daily for 2 days (80 mg total in a day) THEN Take 1.5 tablets (30 mg) twice daily for 2 days (60 mg total in a day)THEN Take 1 tablet (20 mg) twice daily for 2 days (40 mg total in a day) THEN Take 0.5 tablets twice daily for 2 days (20 mg total in a day) then DONE - hydrOXYzine pamoate (VISTARIL) 50 mg capsule Take 50 mg by mouth daily at bedtime. - dextroamphetamine-amphet amine (ADDERALL) 20 mg tablet Take 20 mg by mouth once daily. - Zinc Acetate, Oral, 50 mg (zinc) cap Take 50 capsules by mouth once daily. - Cetirizine 10 mg cap - mv,calcium,min/iron/foli c/vitK (MULTI FOR HER ORAL) - PREMARIN 0.45 mg tablet - montelukast (SINGULAIR) 10 mg tablet Montelukast Active 10 MG PO Daily March 24, 2021 12:00am Problem List As Of Date: 09/21/2024 (None) Encounter Status:Closed by PROMISE DEJESUS on 09/21/24 [facility] RADHA BY IFA SCREENon 08-06-19 Nuclear Ab Ql (S) Negative Normal Negative [facility] Comment on above: Order Comment: Shahzad styles Type: BLOOD SPECIMENOrdering Facility: [facility] Address: [address] [place] [address] Result Comment: Anti -nuclear antibody test is used as an aid in diagnosis of systemic autoimmune diseases. Where positive and clinically warranted, follow-up using disease-specific testing is recommended. Low positive titers are not uncommon with advanced age, certain chronic infections, and malignancies among others. Test methodology: Indirect fluorescence immunoassay (IFA) using HEp-2 cells. Performed By: #### A NAIFS ####[facility] LABIA [id number] [place] [address] [place] Centromere Ab IF Ql (S)on Centromere Ab Qn (S) <0.2 Normal <1.0 [facility] Comment on above: Order Comment: Shahzad styles Type: BLOOD SPECIMENOrdering Facility: [facility] Address: [address] [place] [address] Result Comment: Anti -centromere antibody is used as in aid in diagnosis of systemic sclerosis. Clinical correlation is required. Test Methodology: Multiplex flow immunoassay. Performed By: #### 5 1775-5, 92430-7, 78801-4, 97518-0, 21644-3, 54277-6, 06798-6, 68524-7 ####[facility] LABIA [id number] [place] [id number] [place] CENTROMERE AB QUAL Negative Normal Negative [facility] Comment on above: Order Comment: Shahzad styles Type: BLOOD SPECIMENOrdering Facility: [facility] Address: [address] [place] [address] Performed By: #### 5 1775-5, 79009-2, 19505-1, 42876-9, 21195-9, 18975-4, 93626-0, 57543-3 ####[facility] LABIA [id number] [place] [id number] [place] Chromatin Ab Qnon 08-05-2024 CHROMATIN AB QUAL Negative Normal Negative [facility] Comment on above: Order Comment: Speci men Type: BLOOD SPECIMENOrdering Facility: [facility] Address: [address] [place] [address] Performed By: #### 5 1775-5, 01752-6, 81718-4, 73762-7, 46286-3, 75967-1, 59088-4, 25067-6 ####[facility] LABCLIA [id number] [address] [place] Chromatin Ab SerPl-aCncon Chromatin Ab Qn <0.2 Normal <1.0 [facility] Comment on above: Order Comment: Speci men Type: BLOOD SPECIMENOrdering Facility: [facility] Address: [address] [place] [address] Result Comment: Test Methodology: Multiplex flow immunoassay. Performed By: #### 5 1775-5, 44161-9, 33306-9, 13361-4, 67495-3, 81727-7, 43059-9, 90869-8 ####[facility] LABCLIA [id number] [place] [address] [place] CISCO Jo1 Ab Ser-aCncon 2024 Maliha-1 extractable nuclear Ab Qn (S) <0.2 Normal <1.0 [facility] Comment on above: Order Comment: Speci men Type: BLOOD SPECIMENOrdering Facility: [facility] Address: [address] [place] [address] Performed By: #### 5 1775-5, 21804-9, 49201-6, 13682-5, 91343-0, 49782-5, 08266-7, 33940-7 ####[facility] LABCLIA [id number] [address], [place] [address] [place] CISCO OIL SCOUT Ab Ser-aCncon 2024 Ribonucleoprotein extractable nuclear Ab Qn (S) <0.2 Normal <1.0 [facility] Comment on above: Order Comment: Speci men Type: BLOOD SPECIMENOrdering Facility: [facility] Address: [address] [place] [address] Performed By: #### 5 1775-5, 72190-0, 80130-2, 22919-1, 12686-3, 03428-4, 12762-6, 39649-9 ####[facility] LABCLIA [id number] [place] [address] [place] CISCO SM IgG Ser-aCncon 2024 Ritter extractable nuclear IgG Qn (S) <0.2 Normal <1.0 [facility] Comment on above: Order Comment: Speci men Type: BLOOD SPECIMENOrdering Facility: [facility] Address: [address] [place] [address] Performed By: #### 5 1775-5, 60342-2, 59831-0, 14868-5, 00093-1, 90443-3, 73712-1, 74887-9 ####[facility] LABCLIA [id number] [place] [address] [place] CISCO SS-A Ab Ser-aCncon 08-05 Sjogrens syndrome-A extractable nuclear Ab Qn (S) <0.2 Normal <1.0 [facility] Comment on above: Order Comment: Speci men Type: BLOOD SPECIMENOrdering Facility: [facility] Address: [address] [place] [address] Result Comment: Test Methodology: Multiplex flow immunoassay. Performed By: #### 5 1775-5, 84017-6, 05231-0, 97669-9, 15848-4, 13258-2, 35159-8, 61126-6 ####[facility] LABCLIA [id number] [place] [address] [place] CISCO SS-B Ab Ser-aCncon 08-05 Sjogrens syndrome-B extractable nuclear Ab Qn (S) <0.2 Normal <1.0 [facility] Comment on above: Order Comment: Shahzad styles Type: BLOOD SPECIMENOrdering Facility: [facility] Address: [address] [place] [address] Result Comment: Anti -SSB (anti-La) antibody is used as an aid in diagnosis of a variety of systemic autoimmune diseases, especially for Sjogren's syndrome and systemic lupus erythematosus. Clinical correlation is required. Test Methodology: Multiplex flow immunoassay. Performed By: #### 5 1775-5, 73374-8, 39966-8, 78725-2, 69905-9, 19847-0, 76536-0, 10844-2 ####[facility] LABCLIA [id number] [address] [facility] HbA1c (Bld)on 08-05-2024 Average glucose Estimated from glycated hemoglobin (Bld) [Mass/Vol] 80 mg/dL [facility] Comment on above: Order Comment: Shahzad styles Type: BLOOD SPECIMENOrdering Facility: [facility] Address: [address] [place] [address] Result Comment: eAG: (Estimated average glucose) is a calculated value from HgbA1c and is membership sales representative of the average blood glucose level in the last 2-3 month period. Performed By: #### 5 5454-3 ####[facility] LABCLIA [id number] [place] [address] [place] HbA1c (Bld) [Mass fraction] 4.4 % Normal 4.3-5.6 [facility] Comment on above: Order Comment: Shahzad styles Type: BLOOD SPECIMENOrdering Facility: [facility] Address: [address] [place] [address] Result Comment: Amer ican Diabetes Association guidelines indicate that patients with HgbA1c in the range 5.7-6.4% are at increased risk for development of diabetes, and intervention by lifestyle modification may be beneficial. HgbA1c greater or equal to 6.5% is considered diagnostic of diabetes. Performed By: #### 5 5454-3 ####[facility] LABCLIA [id number] [place] [address] [place] Maliha-1 extractable nuclear Ab Qn (S)on 08-05-2024 MALIHA 1 ANTIBODY QUAL Negative Normal Negative [facility] Comment on above: Order Comment: Shahzad styles Type: BLOOD SPECIMENOrdering Facility: [facility] Address: [address] [place] [address] Result Comment: Anti -MALIHA-1 antibody is used as an aid in diagnosis of polymyositis and dermatomyositis especially with pulmonary involvement. A negative result cannot rule out polymyositis or dermatomyositis. Clinical correlation is required. Test Methodology: Multiplex flow immunoassay. Performed By: #### 5 1775-5, 29297-8, 34151-3, 84282-8, 33274-9, 56765-2, 42613-9, 19356-8 ####[facility] [id number] [place] [address] [place] KAPPA/REDMOND,FREE,SERon 2024 Immunoglobulin light chains.kappa.free (S) [Mass/Vol] 16.4 mg/L Normal 3.3-19.4 [facility] Comment on above: Order Comment: Shahzad styles Type: BLOOD SPECIMENOrdering Facility: [facility] Address: [address] [place] [address] Result Comment: Rare ly, increased serum free light chains levels may not be detected or accurately quantified due to prozone phenomenon or in high viscosity samples using this immunoturbidimetric assay. Correlation with other laboratory results and clinical findings is recommended. The Wagoner Free Light Chain was performed using the Binding Site Optilite immunoturbidimetric method. Result obtained with different assay methods or kits cannot be used interchangeably. Performed By: #### K LFRS ####[facility] [id number] [place] [address] [place] Immunoglobulin light chains.kappa/Immunoglo bulin light chains.lambda (S) [Mass ratio] 1.39 Normal 0.26-1.65 [facility] Comment on above: Order Comment: Speci men Type: BLOOD SPECIMENOrdering Facility: [facility] Address: [address] [place] [address] Performed By: #### K LFRS ####[facility] LABCLIA [id number] [place] [address] [place] Immunoglobulin light chains.lambda.free [Mass/Vol] 11.8 mg/L Normal 5.7-26.3 [facility] Comment on above: Order Comment: Speci men Type: BLOOD SPECIMENOrdering Facility: [facility] Address: [address] [place] [address] Result Comment: Rare ly, increased serum free light chains levels may not be detected or accurately quantified due to prozone phenomenon or in high viscosity samples using this immunoturbidimetric assay. Correlation with other laboratory results and clinical findings is recommended. The Lambda Free Light Chain was performed using the Binding Site Optilite immunoturbidimetric method. Result obtained with different assay methods or kits cannot be used interchangeably. Performed By: #### K LFRS ####[facility] LABCLIA [id number] [place] [address] [place] PROTEIN ELECTROPHORESIS SERU M WITH ERROL (P)on 08-05-2024 Albumin [Mass/Vol] 4.10 g/dL Normal 3.43-5.41 [facility] Comment on above: Order Comment: Speci men Type: BLOOD SPECIMENOrdering Facility: [facility] Address: [address] [place] [address] Performed By: #### L [id number] ####[facility] LABCLIA [id number] [place] [id number] [place] Alpha 1 globulin Elph [Mass/Vol] 0.25 g/dL Normal 0.18-0.43 [facility] Comment on above: Order Comment: Speci men Type: BLOOD SPECIMENOrdering Facility: [facility] Address: [address] [place] [address] Performed By: #### L [id number] ####[facility] LABCLIA [id number] [place] [id number] [place] Alpha 2 globulin Elph [Mass/Vol] 0.62 g/dL Normal 0.42-0.98 [facility] Comment on above: Order Comment: Speci men Type: BLOOD SPECIMENOrdering Facility: [facility] Address: [address] [place] [address] Performed By: #### L [id number] ####[facility] LABIA [id number] [place] [address] [place] Beta globulin Elph [Mass/Vol] 0.67 g/dL Normal 0.61-1.17 [facility] Comment on above: Order Comment: Speci men Type: BLOOD SPECIMENOrdering Facility: [facility] Address: [address] [place] [address] Performed By: #### L [id number] ####[facility] LABIA [id number] [place] [address] [place] COMMENT (SERUM PROT ELECTRO) Monoclonal Protein analysis (immunofixation) is not indicated. [facility] Comment on above: Order Comment: Speci men Type: BLOOD SPECIMENOrdering Facility: [facility] Address: [address] [place] [address] Performed By: #### L [id number] ####[facility] LABIA [id number] [place] [id number] [place] Gamma globulin Elph [Mass/Vol] 0.56 g/dL Normal 0.53-1.51 [facility] Comment on above: Order Comment: Speci men Type: BLOOD SPECIMENOrdering Facility: [facility] Address: [address] [place] [address] Performed By: #### L [id number] ####[facility]IA [id number] [place] [id number] [place] M-PROTEIN LOCATION Normal [facility] Comment on above: Order Comment: Speci men Type: BLOOD SPECIMENOrdering Facility: [facility] Address: [address] [place] [address] Result Comment: Not Applicable. Performed By: #### L [id number] ####[facility] LABCLIA [id number] [address] [place] [address] [place] Protein Fractions [Interp] No definitive M protein is identified on protein electrophoresis. Normal No definitive M protein is identified on protein electrophor esis. [facility] Comment on above: Order Comment: Speci men Type: BLOOD SPECIMENOrdering Facility: [facility] Address: [address] [place] [address] Performed By: #### L [id number] ####[facility]IA [id number] [place] [id number] [place] Protein.monoclonal Elph [Mass/Vol] 0.00 g/dL Normal <=0.00 [facility] Comment on above: Order Comment: Speci men Type: BLOOD SPECIMENOrdering Facility: [facility] Address: [address] [place] [address] Performed By: #### L [id number] ####[facility]IA [id number] [place] [id number] [place] SPE STAFF REVIEW Reviewed by Radha Winchester MD [facility] Comment on above: Order Comment: Speci men Type: BLOOD SPECIMENOrdering Facility: [facility] Address: [address] [place] [address] Performed By: #### L [id number] ####[facility]IA [id number] [place] [id number] [place] Prot SerPl-mCncon 08-05-2024 Protein [Mass/Vol] 6.2 g/dL Low 6.3-8.0 [facility] Comment on above: Order Comment: Speci men Type: BLOOD SPECIMENOrdering Facility: [facility] Address: [address] [place] [address] Performed By: #### 2 885-2, 2132-9 ####[facility] [id number] [place] [address] [place] Ribonucleoprotein extractabl e nuclear Ab Qn (S)on 08-05-2024 ANTI-OIL SCOUT QUAL Negative Normal Negative [facility] Comment on above: Order Comment: Speci men Type: BLOOD SPECIMENOrdering Facility: [facility] Address: [address] [place] [address] Performed By: #### 5 1775-5, 08111-0, 77962-4, 92134-9, 44361-1, 58766-7, 68612-2, 23539-0 ####[facility] [id number] [address] [place] RIBOSOMAL OIL SCOUT QUAL Negative Normal Negative [facility] Comment on above: Order Comment: Speci men Type: BLOOD SPECIMENOrdering Facility: [facility] Address: [address] [place] [address] Result Comment: Anti -Ribosomal RNA (Ribosomal P) antibody is used as an aid in diagnosis of systemic autoimmune diseases especially systemic lupus erythematosus and mixed connective tissue disease. Cross-reactivity with Anti-ritter antibody is not uncommon. Clinical correlation is required. Test Methodology: Multiplex flow immunoassay. Performed By: #### 5 1775-5, 82833-5, 02423-3, 57950-1, 50625-4, 56549-3, 36956-3, 69221-5 ####[facility] [id number] [place] [id number] [place] SCL-70 extractable nuclear I gG IA Qn (S)on 08-05-2024 SCLERODERMA AB QUAL Negative Normal Negative [facility] Comment on above: Order Comment: Speci men Type: BLOOD SPECIMENOrdering Facility: [facility] Address: [address] [place] [address] Performed By: #### 5 1775-5, 92637-9, 40026-7, 66218-1, 10970-8, 16071-2, 21683-3, 73152-0 ####[facility] LABCLIA [id number] [address] [address] [place] SCLERODERMA IGG AB <0.2 Normal <1.0 [facility] Comment on above: Order Comment: Speci men Type: BLOOD SPECIMENOrdering Facility: [facility] Address: [address] [place] [address] Result Comment: Scl- 70/Scleroderma antibody test is used as an aid in diagnosis of systemic sclerosis especially the diffuse cutaneous form. A negative result cannot rule out systemic sclerosis. The final interpretation should consider clinical picture and other test results such as anti-centromere antibody. Test Methodology: Multiplex flow immunoassay. Performed By: #### 5 1775-5, 85276-8, 12572-3, 72073-6, 35649-1, 97326-0, 29397-5, 60850-8 ####[facility] LABIA [id number] [address] [address] [place] Sjogrens syndrome-A extracta ble nuclear Ab Qn (S)on 08-05-2024 SSA ANTIBODY QUAL Negative Normal Negative [facility] Comment on above: Order Comment: Speci men Type: BLOOD SPECIMENOrdering Facility: [facility] Address: [address] [place] [address] Performed By: #### 5 1775-5, 36115-9, 87900-6, 18883-2, 25346-5, 72850-1, 05904-4, 00272-3 ####[facility] LABIA [id number] [address] [address] [place] Sjogrens syndrome-B extracta ble nuclear Ab Qn (S)on 08-05-2024 SSB ANTIBODY QUAL Negative Normal Negative [facility] Comment on above: Order Comment: Speci men Type: BLOOD SPECIMENOrdering Facility: [facility] Address: [address] [place] [address] Performed By: #### 5 1775-5, 34128-3, 92125-0, 93574-9, 42729-1, 28667-9, 27824-2, 21385-4 ####[facility] [id number] [place] [id number] [place] Ritter extractable nuclear Ig G Qn (S)on 08-05-2024 SM ANTIBODY QUAL Negative Normal Negative [facility] Comment on above: Order Comment: Shahzad styles Type: BLOOD SPECIMENOrdering Facility: [facility] Address: [address] [place] [address] Result Comment: Anti -Sm (Ritter) antibody is used as an aid in diagnosis of systemic lupus erythematosus and its presence is associated with renal disease. A negative result cannot rule out systemic lupus erythematosus. Clinical correlation is required. Test Methodology: Multiplex flow immunoassay. Performed By: #### 5 5-5, 94084-5, 24021-3, 80161-1, 13512-6, 33934-3, 06190-6, 17585-3 ####[facility] [id number] [place] [id number] [place] Vit B12 SerPl-mCncon 025 Cobalamin (Vitamin B12) [Mass/Vol] 718 pg/mL Normal 232-1245 [facility] Comment on above: Order Comment: Shahzad styles Type: BLOOD SPECIMENOrdering Facility: [facility] Address: [address] [place] [address] Performed By: #### 2 885-2, 2132-9 ####[facility] [id number] [place] [id number] [place] CNOVon 08-04-2024 CNOV Office Visit ([facility] ) -------- KAROLINA NICOLE ([id number]) 1985 F Date Time Provider Department 08/04/24 2:00 PM LISANDRO GONSALEZ During your visit today, we recorded the following information about you: Temperature Pulse Blood pressure Weight 97.2 degrees 78/minute 110/74 70.4 kg Height 1.588 m Lisandro Gonsalez MD 08/05/2024 8:52 AM Addendum Reason for Evaluation: Consultation requested by Cassandra Tinsley for an opinion regarding New consult Paresthesia of bilateral legs Anterior thigh numbness My final recommendations will be communicated back to the requesting physician by way of shared medical record or letter to requesting physician via [place] mail. This is Ms. Karolina Nicole, a 39 year old female who presents to the [facility] Neurology clinic multiple complaints including imbalance, dropping everything, sharp pains, numbness, tingling, cramping. Also endorses numbness in the thigh region. Impression Multiple complaints Disturbance of skin sensation over the lateral aspect of the thigh both on the right and on the left Tingling Numbness/tingling in the hands, ongoing for 12 months Multiple diagnoses to consider. With regard to numbness over the lateral aspect of both thighs, I wonder about meralgia paresthetica. Tingling in multiple locations. Does not seem to have significant neuropathy risk factors by history. Finally, numbness/tingling in the hands. I definitely wonder about the possibility of carpal tunnel syndrome. I am definitely concerned about the quality of outside EMG. This seems to be signed by a nurse practitioner? Plan - Laboratory studies. A1c, B12, SPEP with ERROL, RADHA, anti-CISCO, kappa/lambda free light chain - Referral to Dr. Mantilla ([facility]) for consideration of nerve block for meralgia paresthetica. - EMG, median/CTS protocol, either side - EMG, general lower extremity, left greater than right; have asked the team to include lateral femoral cutaneous sensory nerve conduction study response bilaterally - I will follow-up with the patient after the above Lisandro Gonsalez MD Staff, [facility] [place] HPI: This is Ms. Karolina Nicole, a 39 year old female who presents to the [facility] Neurology clinic multiple complaints including imbalance, dropping everything, sharp pains, numbness, tingling, cramping. Also endorses numbness in the thigh region. Review: New consult Paresthesia of bilateral legs Anterior thigh numbness MRI lumbar spine without contrast MRI cervical spine without contrast 07/03/2024 1. Essentially normal examination of the cervical spine. 2. Mild degenerative change at L5-S1. MRV brain with/without contrast 07/03/2024 No evidence for venous sinus thrombosis. Equivocal narrowing of the distal transverse sinuses as could be seen with transverse sinus stenosis. MRI brain without contrast 07/03/2024 Normal MRI of the brain Partially empty sella is suggested CC: Imbalance Dropping everything Sharp pains Numbness Tingling Cramping Endorses tingling in the legs among other locations Endorses numbness in thigh region Today: With standing, legs become heavy L > R Electrical, like a long shock Burning Numb A few years Getting worse More frequent MRI unrevealing No sciatica per the patient Endorses tingling in multiple locations Acetazolamide related? 190s > 150s Also endorses tingling in the feet No history of diabetes. + history of cancer, but no exposure to chemotherapy. No restrictive diet until past 6 weeks. No history of HIV. No history of significant alcohol intake currently History of 18 years of heavier alcohol intake Sober for 7 years No family history of neuropathy that we know of? Mother? No history of dry eye. + history of dry mouth. No history of heavy metal exposure. No history of stomach surgery. >> Also endorses numbness/tingling in the hands Both hands Dropping things Ongoing for about 12 months Now daily, getting worse Past history per chart review includes: Past medical history, problem list: Fibromyalgia, IIH, Palindromic rheumatism Past surgical history: Cholecystectomy, hysterectomy Family history: Cancer (mother) Social history: Smokes cigarettes No current alcohol OBJECTIVE: PHYSICAL EXAM: Neurological: Mental Status: Alert. Speech fluent. Cranial Nerves: CNII: Visual lugo intact? Seems to struggle a bit with inferior nasal field OU? CNIII, IV, : Pupils are reactive to light. Eyes cross midline. Vertical gaze intact. CN V: Facial sensation intact bilaterally to touch. CN VII: Smile is symmetric. CN VIII: Hearing intact to finger rub bilaterally. CN IX: No hypophonia. CN XI: Full strength shoulder shrug bilaterally. CN XII: Tongue (more content not included)... [facility] -------- STEVOKAROLINA WERNER Ángel ([id number]) 1985 F Date Time Provider Department 07/15/24 CASSANDRA TINSLEY PAINLN During your visit today, we recorded the following information about you: Jeanne Romero 07/15/2024 9:21 AM Signed Karolina is calling Cassandra Tinsley APRN.CNP today with concern regarding EMG. Her chiropractor is sending everything over this morning. Please review. Patient has been identified by name and birthdate. Person calling: self Call patient at: on cell [phone] (home) [phone] (cell) Was an appointment scheduled: No Closing statement: Results or non-symptom based questions: Thank you for calling [facility], your call will be returned within the next business day. Glo Barger LPN 07/18/2024 7:02 AM Signed Copy of the report given to provider to review. Cassandra Tinsley APRN.CNP 07/18/2024 8:28 AM Signed EMG reports received. Recommend consult to neurology. Please help patient schedule IVONE Peace Angela, LPN 07/18/2024 9:04 AM Signed Called spoke with patient, provider's message below given. Patient stated she currently is see Neurology at [facility] Dr. Rafy Goldberg. Upcoming appt noted on 07/22/24. Allergies As of Date: 07/15/2024 Noted Allergy Reaction ADHESIVE 03/11/2012 2 - Rash LATEX 08/30/2016 2 - Rash LEVAQUIN (LEVOFLOXACIN) 04/05/2024 7 - Swelling Comments: Swelling tongue NICKEL 08/30/2016 2 - Rash 16 - Unknown OXYCODONE 10/15/2020 2 - Rash OXYCODONE-ACETAMINOPHEN 03/11/2012 2 - Rash SILK 08/30/2016 14 - Other: See Comments Comments: Silk tape SULFADIAZINE 09/29/2023 2 - Rash SULFAMETHOXAZOLE-TRIMETH OPRIM 12/25/2023 7 - Swelling ADHESIVE TAPE (ROSINS) 05/11/2019 4 - Hives 9 - Itching Date Reviewed: 07/01/2024 Reviewed by: Hank Merida MD - Fully Assessed Reason for Visit: Patient Update [1234] Primary Visit Diagnosis:Paresthesia of bilateral legs [R20.2] Other Visit Diagnosis:Anterior thigh numbness [R20.0] Order(s):CONSULT TO NEUROLOGY [9077] Order #: [id number]: 1 FUTURE Prescriptions as of 07/20/2024 - acetaZOLAMIDE (DIAMOX) 250 mg tablet Take 2 tablets by mouth every morning AND 3 tablets daily at bedtime. - hydrOXYzine pamoate (VISTARIL) 50 mg capsule Take 50 mg by mouth daily at bedtime. - diclofenac (VOLTAREN ARTHRITIS PAIN) 1 % topical gel Apply 2 g to affected area four times daily. - dextroamphetamine-amphet amine (ADDERALL) 20 mg tablet Take 20 mg by mouth once daily. - tiZANidine (ZANAFLEX) 4 mg tablet Take 1 tablet by mouth at bedtime as needed (muscle spasm). - Zinc Acetate, Oral, 50 mg (zinc) cap Take 50 capsules by mouth once daily. - Cetirizine 10 mg cap - mv,calcium,min/iron/foli c/vitK (MULTI FOR HER ORAL) - PREMARIN 0.45 mg tablet - montelukast (SINGULAIR) 10 mg tablet Montelukast Active 10 MG PO Daily March 24, 2021 12:00am Problem List As Of Date: 07/15/2024 (None) Encounter Status:Closed by CASSANDRA TINSLEY on 07/20/24 [facility] MRI BRAIN WO IVCONon 07-03- 025 MRI BRAIN WO IVCON * * *Final Report* * * * * * SEE BOTTOM OF REPORT FOR ADDENDED TEXT * * * DATE OF EXAM: Jul 03 2024 12:01PM [facility] 0294 - MRI BRAIN WO IVCON / PROCEDURE REASON: IIH (idiopathic intracranial hypertension) * * * * Physician Interpretation * * * * * * * * * * * * ORIGINAL REPORT * * * * * * * * EXAMINATION: MRI BRAIN WO IVCON CLINICAL HISTORY: Idiopathic intracranial hypertension. TECHNIQUE: Routine noncontrast MRI protocol including diffusion images. MQ: MRBWO_2 COMPARISON: None. RESULT: Acute Change: There is no evidence of restricted diffusion to suggest an acute infarct. Hemorrhage: No evidence of prior parenchymal hemorrhage on the susceptibility weighted images. Mass Lesion/ Mass Effect: No evidence of an intracranial mass or extra-axial fluid collection. No significant mass effect. Chronic Change: The white matter is within normal limits of signal intensity for age. Parenchyma: No significant volume loss for age. The brain parenchyma is otherwise within normal limits of signal intensity and morphology. Ventricles: Normal caliber and morphology. Skull Base: Hypothalamic and pituitary region are grossly normal. Craniocervical junction is normal. No significant marrow replacement process. Vasculature: Major intracranial arterial structures, and dural venous sinuses show typical flow void, suggesting patency by spin echo criteria. Other: Minimal fluid is noted within the left mastoid air cells. The orbits and extracranial soft tissues are unremarkable. IMPRESSION: Normal MRI of the brain. * * * * * * * * ADDENDUM #1 * * * * * * * * Partially empty sella is suggested. Wet Washer Machine: ANA Transcribe Date/Time: Jul 03 2024 2:09P Dictated by : GERARD FLORES MD This examination was interpreted and the report reviewed and electronically signed by: GERARD FLORES MD on Jul 03 2024 2:07PM EST This document has been addended by: GERARD FLORES MD on Jul 03 2024 2:10PM EST [id number] Normal [facility] MRI CERVICAL SPINE WO IVCONo n 07-03-2024 MRI CERVICAL SPINE WO IVCON * * *Final Report* * * DATE OF EXAM: Jul 03 2024 12:01PM [facility] 0297 - MRI CERVICAL SPINE WO IVCON / PROCEDURE REASON: multiple diagnoses * * * * Physician Interpretation * * * * EXAMINATION: MRI CERVICAL SPINE WO IVCON, MRI LUMBAR SPINE WO IVCON CLINICAL HISTORY: Chronic bilateral low back pain with bilateral sciatica. Cervical radiculopathy. TECHNIQUE: Routine cervical and lumbosacral spine MR protocol without gadolinium. MQ: MRCLWO_1 COMPARISON: None. RESULT: CERVICAL: Counting reference: Craniocervical junction. Anatomic Variants: None. Localizer images: No additional findings. Alignment: There is straightening of cervical lordosis. Craniocervical junction: Craniocervical junction is normal. Cord: The cervical spinal cord is within normal limits of signal intensity and morphology. Bone marrow signal/fracture: No evidence of pathologic marrow infiltration. No evidence of prior fracture. Cervical soft tissues: The paraspinal soft tissues are within normal limits. C2-C3: Canal and foramina are patent. C3-C4: Canal and foramina are patent. C4-C5: Canal and foramina are patent. C5-C6: Canal and foramina are patent. C6-C7: Canal and foramina are patent. C7-T1: Canal and foramina are patent. LUMBAR: Counting reference: Craniocervical and lumbosacral junctions For the purposes of this report, L4-5 is considered the level of the iliac crest and assume there are 5 lumbar-type vertebrae. Anatomic variant: None. Localizer images: No additional findings. Alignment: Alignment is anatomic. Bone marrow signal/fracture: No evidence of pathologic marrow infiltration. No evidence of prior fracture. Conus: The conus is within normal limits of signal intensity and morphology. Paraspinal soft tissues: Paraspinal soft tissues are within normal limits. Lower thoracic spine: Visualized lower thoracic canal and foramina are patent. L1-L2: Canal and foramina are patent. L2-L3: Canal and foramina are patent L3-L4: Canal and foramina are patent L4-L5: Canal and foramina are patent L5-S1: Mild disc bulge at L5-S1 with minimal right neural foraminal narrowing. Mild right facet joint degenerative change. Spinal canal and left neural foramen are patent. Sacrum and iliac wings: The visualized sacrum and iliac wings are within normal limits. The presacral soft tissues are normal in appearance. IMPRESSION: 1. Essentially normal examination of the cervical spine. 2. Mild degenerative change at L5-S1. Cervical Anatomic Variant: None. Assume 7 cervical vertebrae with counting from the craniocervical junction. Anatomic Thoracic/Lumbar Variant: None. L4-5 is considered the level of the iliac crest and assume there are 5 lumbar-type vertebrae. Wet Washer Machine: PSCB Transcribe Date/Time: Jul 03 2024 2:13P Dictated by : GERARD FLORES MD This examination was interpreted and the report reviewed and electronically signed by: GERARD FLORES MD on Jul 03 2024 2:21PM EST [id number] Normal [facility] MRI LUMBAR SPINE WO IVCONon 07-03-2024 MRI LUMBAR SPINE WO IVCON * * *Final Report* * * DATE OF EXAM: Jul 03 2024 12:01PM [facility] 0303 - MRI LUMBAR SPINE WO IVCON / PROCEDURE REASON: multiple diagnoses * * * * Physician Interpretation * * * * EXAMINATION: MRI CERVICAL SPINE WO IVCON, MRI LUMBAR SPINE WO IVCON CLINICAL HISTORY: Chronic bilateral low back pain with bilateral sciatica. Cervical radiculopathy. TECHNIQUE: Routine cervical and lumbosacral spine MR protocol without gadolinium. MQ: MRCLWO_1 COMPARISON: None. RESULT: CERVICAL: Counting reference: Craniocervical junction. Anatomic Variants: None. Localizer images: No additional findings. Alignment: There is straightening of cervical lordosis. Craniocervical junction: Craniocervical junction is normal. Cord: The cervical spinal cord is within normal limits of signal intensity and morphology. Bone marrow signal/fracture: No evidence of pathologic marrow infiltration. No evidence of prior fracture. Cervical soft tissues: The paraspinal soft tissues are within normal limits. C2-C3: Canal and foramina are patent. C3-C4: Canal and foramina are patent. C4-C5: Canal and foramina are patent. C5-C6: Canal and foramina are patent. C6-C7: Canal and foramina are patent. C7-T1: Canal and foramina are patent. LUMBAR: Counting reference: Craniocervical and lumbosacral junctions For the purposes of this report, L4-5 is considered the level of the iliac crest and assume there are 5 lumbar-type vertebrae. Anatomic variant: None. Localizer images: No additional findings. Alignment: Alignment is anatomic. Bone marrow signal/fracture: No evidence of pathologic marrow infiltration. No evidence of prior fracture. Conus: The conus is within normal limits of signal intensity and morphology. Paraspinal soft tissues: Paraspinal soft tissues are within normal limits. Lower thoracic spine: Visualized lower thoracic canal and foramina are patent. L1-L2: Canal and foramina are patent. L2-L3: Canal and foramina are patent L3-L4: Canal and foramina are patent L4-L5: Canal and foramina are patent L5-S1: Mild disc bulge at L5-S1 with minimal right neural foraminal narrowing. Mild right facet joint degenerative change. Spinal canal and left neural foramen are patent. Sacrum and iliac wings: The visualized sacrum and iliac wings are within normal limits. The presacral soft tissues are normal in appearance. IMPRESSION: 1. Essentially normal examination of the cervical spine. 2. Mild degenerative change at L5-S1. Cervical Anatomic Variant: None. Assume 7 cervical vertebrae with counting from the craniocervical junction. Anatomic Thoracic/Lumbar Variant: None. L4-5 is considered the level of the iliac crest and assume there are 5 lumbar-type vertebrae. Wet Washer Machine: [facility] Transcribe Date/Time: Jul 03 2024 2:13P Dictated by : GERARD FLORES MD This examination was interpreted and the report reviewed and electronically signed by: GERARD FLORES MD on Jul 03 2024 2:21PM EST [id number] Normal [facility] MRV BRAIN WO/W IVCONon 07-03 MRV BRAIN WO/W IVCON * * *Final Report* * * DATE OF EXAM: Jul 03 2024 12:01PM [facility] 0336 - MRV BRAIN WO/W IVCON / PROCEDURE REASON: IIH (idiopathic intracranial hypertension) * * * * Physician Interpretation * * * * MRV WITHOUT AND WITH CONTRAST HISTORY: Idiopathic intracranial hypertension. TECHNIQUE: 2-dimensional pdgq-um-bznbrk MRV with maximum intensity projections and source images utilized for interpretation. 3-dimensional [id number] MRV with contrast with maximum intensity projections and source images utilized for interpretation. Contrast: IV administration of 7 ml of Elucirem RESULT: There is no evidence for venous sinus thrombosis. Specifically, the superior sagittal, transverse, and sigmoid sinuses are patent. The internal cerebral veins, vein of Cameron, straight sinus, torcula, and visualized portions of the internal jugular veins are patent. Equivocal narrowing of the distal transverse sinuses as could represent transverse sinus stenosis. IMPRESSION: No evidence for venous sinus thrombosis. Equivocal narrowing of the distal transverse sinuses as could be seen with transverse sinus stenosis. Wet Washer Machine: PSCB Transcribe Date/Time: Jul 03 2024 2:07P Dictated by : GERARD FLORES MD This examination was interpreted and the report reviewed and electronically signed by: GERARD FLORES MD on Jul 03 2024 2:12PM EST [id number] [facility] NURSING PROGon 07-03-2024 NURSING PROG HNO ID: [id number] Author: GIANNI BURGER RN Service: Radiology Author Type: Registered Nurse Type: Nursing Progress Note Filed: 07/03/2024 11:20 Note Text: Radiology Service Progress Note DATE OF SERVICE: July 03, 2024 TIME: 11:19 AM PATIENT WEIGHT: 165 LBS PATIENT IDENTITY VERIFICATION COMPLETED USING TWO (2) STANDARD IDENTIFIERS: Name and Date of confirmed by patient verbally. FALL SCREENING: Has the patient had 2 falls in the last year or 1 fall with injury or currently using an Ambulatory Assistive Device (Walker, Cane, Wheelchair, Crutches, etc.)? No PATIENT GENDER DATA: Assigned female at . status: : No status: NO. ALLERGIES: Reviewed and unchanged CONTRAST ALLERGY: No EXAM: MRI - CONTRAST TYPE: GROUP II IV SITE: Ambulatory: A peripheral IV was started in the Left forearm with a Angio cath: 22 gauge. IV SITE APPEARANCE: Clean,Dry and Intact SIGNATURE: Gianni Burger RN PATIENT NAME: Karolina Gillis Corye DATE: July 03, 2024 TIME: 11:19 AM [facility] CNOVon 07-01-2024 CNOV Office Visit ([facility]OLL[facility] ) -------- KAROLINA NICOLE ([id number]) 1985 F Date Time Provider Department 07/01/24 4:00 PM HANK MERIDA During your visit today, we recorded the following information about you: Hank Merida MD 07/01/2024 4:38 PM Signed [facility] NEW PATIENT HISTORY AND PHYSICAL EXAM PATIENT INFO: Karolina Nicole 38 year old CHIEF COMPLAINT: right flank pain HISTORY: Karolina Nicole is a 38 year old female with Ho urinary stones. LAPAROSCOPIC CHOLECYSTECTOMY LAPAROSCOPY-ROBERTO LIGATE FALLOPIAN TUBE REMOVAL OF OVARY/TUBE(S) TOTAL ABDOM HYSTERECTOMY Fibromyalgia IIH (idiopathic intracranial hypertension) Osteoarthritis of multiple joints Palindromic rheumatism Who comes for evaluation of right subcostal and flank pain over the last 2 months. Intermittent, sharp, worsened when lying down on the right side. Lost 35 lbs in the last 4 months. No stones in CT done in 06-10-2023 She was done a CT flank in 06/09/24 2 mm stone in the left upper pole and 3 mm stone in the left lower pole Creat 1.05 UA Normal She is taking Acetazolamide, she has been taking over the last year for her idiopathic intracranial hypertension, can increase the risk of developing kidney stones, particularly with long-term use, due to its effect on urine composition, making it more prone to crystal formation Location: right flank Pain Character: sharp Severity Scale: severe Duration: 2 months Timing: intermittently Modifying Factors: Worsened by lying on the right side. Associated signs and symptoms: pain Consultation requested by [employer] Attendant Role and Specialty Contact Info Address Start End Comments Yoan Ivey MD General (Family Medicine) [id number] [place] [phone] 06/06/2024 - - for an opinion regarding urinary stones. My final recommendations will be communicated back to the requesting physician by way of shared medical record or letter via [place] mail Visit complexity inherent to evaluation and management associated with medical care services that serve as the continuing focal point for all needed health care services and/or with medical care services that are part of ongoing care related to a patient?s single, serious condition or a complex condition. LAST MENSTRUAL PERIOD DATE: 2012 Pregnancies Pregnancies: 5, Births: 3, and Abortions: 2 miscarriages PAST MEDICAL HISTORY: PAST MEDICAL HISTORY Diagnosis Date Fibromyalgia IIH (idiopathic intracranial hypertension) Osteoarthritis of multiple joints Palindromic rheumatism PAST SURGICAL HISTORY: PAST SURGICAL HISTORY Procedure Laterality Date LAPAROSCOPIC CHOLECYSTECTOMY 07/29/2023 LAPAROSCOPY-ROBERTO 10/19/2012 LIGATE FALLOPIAN TUBE Bilateral 12/15/2011 REMOVAL OF OVARY/TUBE(S) Bilateral 10/19/2012 TOTAL ABDOM HYSTERECTOMY 10/19/2012 FAMILY HISTORY: FAMILY HISTORY Problem Relation Age of Onset Cancer Mother Cataract Mother Hypertension Sister Cataract Sister Blindness Sister Heart Maternal Grandmother Glaucoma No Family History Detached Retina No Family History Macular Degen No Family History SOCIAL HISTORY: Social History Tobacco Use Smoking status: Every Day Current packs/day: 0.50 Types: Cigarettes Smokeless tobacco: Never Tobacco comments: 1 pack every 2 days Vaping Use Vaping status: Never Used Substance Use Topics Alcohol use: Not Currently Drug use: Not Currently MEDICATIONS: Current Outpatient Medications Medication Instructions acetaZOLAMIDE SR (DIAMOX SEQUELS) 500 mg, ORAL, 2 TIMES DAILY Cetirizine 10 mg cap No dose, route, or frequency recorded. dextroamphetamine-amphet amine (ADDERALL) 20 mg tablet 20 mg, DAILY diclofenac (VOLTAREN ARTHRITIS PAIN) 2 g, TOPICAL, 4 TIMES DAILY hydrOXYzine pamoate (VISTARIL) 50 mg, AT BEDTIME montelukast (SINGULAIR) 10 mg tablet Montelukast Active 10 MG PO Daily March 24, 2021 12:00am mv,calcium,min/iron/foli c/vitK (MULTI FOR HER ORAL) No dose, route, or frequency recorded. PREMARIN 0.45 mg tablet No dose, route, or frequency recorded. tiZANidine (ZANAFLEX) 4 mg, ORAL, AT BEDTIME NEEDED Zinc Acetate, Oral, 50 mg (zinc) cap 50 capsules, ORAL, DAILY LABS: Creatinine (mg/dL) Date Value 02/24/2024 1.08 09/29/2023 0.91 Additional data reviewed: U/A, radiology, physician visualization of radiology, and labs Specific Donna, Ur Date Value Ref Range Status 09/29/2023 1.007 1.005 - 1.030 Final Glucose, Urine Date Value Ref Range Status 09/29/2023 Negative Negative Final Bilirubin, Urine Date Value Ref Range Status 09/29/2023 Negative Negative Final Ketones, Urine Date Value Ref Range Status 09/29/2023 Negative Negative Final Hemoglobin/Blood,Ur Date Value Ref Range Status 09/29/2023 Negative Negative Final Protein, Urine Da (more content not included)... [facility] Mammography reportOrdered By : Mj Garcia on 06-27-2024 Diagnostic imaging study [facility] Main [place] [address] [place], [place] [id number] Mammography Report Signed Patient: Karolina Nicole MR#: [id number] : 1985 Acct:[id number] Age/Sex: 38 / F ADM Date: 5 Loc: [place] Room: Type: [facility] Attending Dr: Yoan Ivey MD Copies to: Yoan Ivey MD~ Ordering Provider: Yoan Ivey MD Date of Service: 06/27/24 MM/MM diagnostic mammo BI w/CAD: PAIN ([id number]) US/US breast LT limited: R92.8 DIAGNOSTIC BILATERAL MAMMOGRAM - FULL FIELD DIGITAL WITH TOMOSYNTHESIS CLINICAL DATA: Abnormal ultrasound, sharp breast pain bilaterally lateral breast pain Craniocaudal and mediolateral oblique views of the () breast were obtained using low-dose digital technique. Comparison is made to prior studies from 12/22/2022. This examination was reviewed with the aid of CAD. Predominantly fatty breast tissue bilaterally. There are no dominant masses, typically malignant calcifications or architectural distortion. There has been no significant interval change. Sonographic follow-up for left-sided clinical concern was performed. At 1:00 within the left breast, there are redemonstration of an heterogeneous ovoid structure which measured 1.0 x 0.2 cm in prior exam, is unchanged in size, currently measuring 9 x 2 x 8 mm and is likely a mildly complex cyst.. Slight discrepancy in size on the prior examination as a measure excluded the internal debris/more hypoechoic component MM/MM diagnostic mammo BI w/CAD IMPRESSION: NO MAMMOGRAPHIC EVIDENCE OF MALIGNANCY. MILDLY COMPLEX CYST IN LEFT BREAST IS BENIGN ROUTINE FOLLOW-UP IS RECOMMENDED IN ONE YEAR. RESULT CODE: 1 Negative DENSITY CODE: 1 (<25% glandular) FOLLOW UP: 1YR The false-negative rate of mammography is approximately 10-percent. Management of a palpable abnormality must be based on clinical grounds. Impression dictated by: Mj Garcia M.D.06/27/2024 3:39 PM Dictation Location: [facility] Transcribed By: ODALYS 06/27/24 1539 Dictated By: Mj Garcia MD 06/27/24 1505 Signed By: 06/27/24 1539 [facility] Work Phone: US breast LT limitedon 06-27 US breast LT limited [facility] [place] [address] Mammography Report Signed Patient: Karolina Nicole MR#: [id number] : 1985 Acct:[id number] Age/Sex: 38 / F ADM Date: 06/27/24 Loc: MA Room: Type: [facility] Attending Dr: Yoan Ivey MD Copies to: Yoan Ivey MD Ordering Provider: Yoan Ivey MD Date of Service: 06/27/24 MM/MM diagnostic mammo BI w/CAD: PAIN ([id number]) US/US breast LT limited: R92.8 DIAGNOSTIC BILATERAL MAMMOGRAM - FULL FIELD DIGITAL WITH TOMOSYNTHESIS CLINICAL DATA: Abnormal ultrasound, sharp breast pain bilaterally lateral breast pain Craniocaudal and mediolateral oblique views of the () breast were obtained using low-dose digital technique. Comparison is made to prior studies from 12/22/2022. This examination was reviewed with the aid of CAD. Predominantly fatty breast tissue bilaterally. There are no dominant masses, typically malignant calcifications or architectural distortion. There has been no significant interval change. Sonographic follow-up for left-sided clinical concern was performed. At 1:00 within the left breast, there are redemonstration of an heterogeneous ovoid structure which measured 1.0 x 0.2 cm in prior exam, is unchanged in size, currently measuring 9 x 2 x 8 mm and is likely a mildly complex cyst.. Slight discrepancy in size on the prior examination as a measure excluded the internal debris/more hypoechoic component MM/MM diagnostic mammo BI w/CAD IMPRESSION: NO MAMMOGRAPHIC EVIDENCE OF MALIGNANCY. MILDLY COMPLEX CYST IN LEFT BREAST IS BENIGN ROUTINE FOLLOW-UP IS RECOMMENDED IN ONE YEAR. RESULT CODE: 1 Negative DENSITY CODE: 1 (<25% glandular) FOLLOW UP: 1YR The false-negative rate of mammography is approximately 10-percent. Management of a palpable abnormality must be based on clinical grounds. Impression dictated by: Mj Garcia M.D.06/27/2024 3:39 PM Dictation Location: [facility] Transcribed By: ODALYS 06/27/24 1539 Dictated By: Mj Garcia MD 06/27/24 1505 Signed By: 06/27/24 1539 Normal [facility] BSCAN AND ASCJANNET OU (BOTH EYE S)on 06-14-[address] [facility] Radiology Study observation (narrative) [facility] CNOVon 06-14-2024 CNOV Office Visit (PAINLN ) -------- KAROLINA NICOLE Ángel ([id number]) 1985 F Date Time Provider Department 06/14/24 3:00 PM CASSANDRA TINSLEY PAINLN During your visit today, we recorded the following information about you: Pulse Weight 68/minute 75.2 kg Cassandra Tinsley, AMISHA.PARIMUTUEL CLERK 06/15/2024 9:33 AM Signed Ms. Nicole a 38 year old female returns today for follow up of LB, she states that symptoms have not changed. PAIN: Pain Yes. Location: LB, rates pain a 6 on a pain scale of 1-10. Patient describes pain as aching, duration to the present time occuring daily x 5. MEDICATIONS: Medications reviewed and verified. Current Outpatient Medications Medication Sig hydrOXYzine pamoate (VISTARIL) 50 mg capsule Take 50 mg by mouth daily at bedtime. acetaZOLAMIDE SR (DIAMOX SEQUELS) 500 mg capsule Take 1 capsule by mouth two times a day. dextroamphetamine-amphet amine (ADDERALL) 20 mg tablet Take 20 mg by mouth once daily. naproxen (NAPROSYN) 500 mg tablet Take 1 tablet by mouth two times a day as needed for pain. FOR PAIN. TAKE WITH FOOD. tiZANidine (ZANAFLEX) 4 mg tablet Take 1 tablet by mouth at bedtime as needed (muscle spasm). Zinc Acetate, Oral, 50 mg (zinc) cap Take 50 capsules by mouth once daily. Cetirizine 10 mg cap mv,calcium,min/iron/foli c/vitK (MULTI FOR HER ORAL) PREMARIN 0.45 mg tablet montelukast (SINGULAIR) 10 mg tablet Montelukast Active 10 MG PO Daily March 24, 2021 12:00am Current Facility-Administered Medications Medication Dose Route Frequency tropicamide 1 % 1 Drop (MYDRIACYL) 1 Drop BOTH EYES As Directed PHENYLephrine 2.5 % 1 Drop (AK-DILATE, ANTHONY-SYNEPHRINE) 1 Drop BOTH EYES As Directed proparacaine 0.5 % 1 Drop (ALCAINE) 1 Drop BOTH EYES As Directed Patient feels that medications have not used PREVIOUS TREATMENTS LASTING SIX WEEKS IN THE LAST SIX MONTHS Active conservative therapy lasting 6 weeks in the last six months (see below) 1. Physical therapy: 2. Home exercise program after PT: 3. Occupational therapy: No 4. A physician supervised home exercise program (HEP): No 5. Graphic Manager: No Passive conservative therapy lasting 6 weeks in the last six months (see below) 1. Medical devises: No 2. Acupuncture: No 3. Tens unit: No 4. Prescription pain medication: No 5. NSAIDS: No TREATMENTS: Graphic Manager Naproxen 500 mg BID Zanaflex 4 mg 1 poi qhs EXAM: Pulse 68 Wt 75.2 kg (165 lb 12.6 oz) SpO2 99% BMI 29.84 kg/m? No acute distress noted, patient alert and oriented X's 3. Resistive testing proximal and distal in the upper and the lower extremeties show 5/5 strength. DTR's are symmetrical in the upper and the lower extremeties. Nerve root tension signs: Negative. Heart: RRR Lungs: Clear Abdomen: Soft, non tender Spine: Tenderness with palpation of cervical and lumbar spine IMPRESSION: Some element copied from my note on 06/03/2023, which have been updated where appropriate, and all reflect my current medical decision making from today. This is a 38 year old female [...] numbness and tingling. She has been going [facility] in [place] Dr. Perry once a week since May. [...] better assessment of her pain. She has undergone PT on 05/16/2024, 05/20/2024, 06/01/2024 and she has undergone critical care educator on 05/13/2024, 05/16/2024, 05/20/2024, 05/26/2024, 06/01/2024, 06/08/2024, 06/13/2024. She has continued to take Naprosyn as needed for pain I spent a total of 30 minutes on the date of the service which included preparing to see the patient, [id number] patient care, completing clinical documentation, obtaining and/or reviewing separately obtained history, performing a (more content not included)... [facility] CRP SerPl-mCncon 06-14-2024 CRP [Mass/Vol] mg/L Normal <0.9 [facility] Comment on above: Order Comment: Speci men Type: BLOOD SPECIMENOrdering Facility: [facility] Address: [address] [place] [id number] Performed By: #### 1 [id number] ####[facility] LABCLIA [id number] [place] [address] [place] ESR Westergren method (Bld) [Velocity]on 06-14-2024 ESR (Bld) [Velocity] 2 mm/h Normal 0-20 [facility] Comment on above: Order Comment: Speci men Type: BLOOD SPECIMENOrdering Facility: [facility] Address: [address] [place] [address] Performed By: #### 4 [phone] ####[facility] LABCLIA [id number] [address] [place] OCT OPTIC NERVE CIRRUS OU (B OTH EYES)on 06-14-[address] [facility] Radiology Study observation (narrative) [facility] VISUAL FIELD 24-2 OU (BOTH E YES)on 06-14-[address] [facility] Radiology Study observation (narrative) [facility] CNOVon 06-03-2024 CNOV Office Visit (PAINLN ) -------- PAOLAKAROLINA BULL Ángel ([id number]) 1985 F Date Time Provider Department 06/03/24 9:30 AM CASSANDRA TINSLEY PAINLN During your visit today, we recorded the following information about you: Pulse Weight Height 75/minute 72.6 kg 1.588 m Cassandra Tinsley, STARCH FACTORY LABORER.PARIMUTUEL CLERK 06/03/2024 12:03 PM Signed Ms. Nicole a [...] 5 days. Do not take with Zanaflex dextroamphetamine-amphet amine (ADDERALL) 20 mg tablet Take 20 mg [...] mouth once daily. Cetirizine 10 mg cap mv,calcium,min/iron/foli c/vitK (MULTI FOR HER ORAL) PREMARIN 0.45 mg [...] months (see below) 1. Physical therapy: Yes [facility] x 4 sessions ongoing 2. Home exercise program after PT: No 3. Occupational therapy: No 4. A physician supervised home exercise program (HEP): No 5. Graphic Manager: No Passive conservative therapy lasting 6 weeks [...] of chronic neck, and lower back pain, [facility]. She recently established care with Dr. Cartagena [...] numbness and tingling. She has been going [facility] in [place] Dr. Perry once a week since May. [...] which included preparing to see the patient, [id number] patient care, completing clinical documentation, obtaining and/or reviewing separately obtained history, performing a medically appropriate examination, counseling and educating the patient/family/caregiver , and ordering medications, tests, or procedures. Lumbosacral spondylosis without myelopathy (primary encounter diagnosis) Polyarthralgia Chronic pain syndrome Neck pain PLAN: Xray of cervical and lumbar spine Reviewed red flag symptoms Continue Graphic Manager Consider MRI of cervical and Lumbar spine and possible SAMMIE RTC in 6-8 weeks or soon (more content not included)... [facility] Best 06-03-2024 SAUL Telephone (PAINLN) -------- STEVOKAROLINA WERNER Ángel ([id number]) 1985 F Date Time Provider Department 06/03/24 CASSANDRA TINSLEY PAINLN During your visit today, we recorded the following information about you: Cassandra Tinsley APRN.VAISHNAVI 06/03/2024 5:11 PM Signed Can we call [...] below Stated understanding Pts pcp is Dr Yoan Ivey [phone] Pt does not have a fax# Please [...] Silk tape SULFADIAZINE 09/29/2023 2 - Rash SULFAMETHOXAZOLE-TRIMETH OPRIM 12/25/2023 7 - Swelling ADHESIVE TAPE (ROSINS) [...] four times daily for 5 days. - dextroamphetamine-amphet amine (ADDERALL) 20 mg tablet Take 20 mg [...] daily. - Cetirizine 10 mg cap - mv,calcium,min/iron/foli c/vitK (MULTI FOR HER ORAL) - PREMARIN 0.45 mg tablet - montelukast (SINGULAIR) 10 mg tablet Montelukast Active 10 MG PO Daily March 24, 2021 12:00am Problem List As Of Date: 06/03/2024 (None) Encounter Status:Closed by NEVA BENAVIDES on 06/07/24 [facility] No Panel Informationon 06-03 Radiology Study observation (narrative) [facility] XR CERVICAL 4V AP/LAT/OBLon 06-03-2024 XR CERVICAL [...] to moderate left C3-C4 bony foraminal narrowing. Wet Washer Machine[facility] Transcribe Date/Time: Jun 03 2024 12:00P Dictated by : FADUMO JOSEPH MD This examination was interpreted and the report reviewed and electronically signed by: FADUMO JOSEPH MD on Jun 03 2024 12:03PM EST [id number] [facility] XR Cervical spine AP and Lat eral and obliqueon 06-03-2024 IMPRESSION: Mild to moderate left C3-C4 bony foraminal narrowing. Wet Washer Machine: [facility] Transcribe Date/Time: Jun 03 2024 12:00P Dictated [...] within normal limits. DIVISION OF RADIOLOGY Provider, Lee Ann Desire Nielsen - 06/03/2024 * * *Final Report* [...] to moderate left C3-C4 bony foraminal narrowing. Wet Washer Machine: ANA Transcribe Date/Time: Jun 03 2024 12:00P Dictated by : FADUMO JOSEPH MD This examination was interpreted and the report reviewed and electronically signed by: FADUMO JOSEPH MD on Jun 03 2024 12:03PM EST [facility] XR Cervical spine AP and Lat eral and obliqueOrdered By: [facility]cf Provider on 06-03-[address] [facility] XR LUMBAR 3V AP/LAT/L5-S1on 06-03-2024 XR LUMBAR [...] considered for further evaluation as clinically warranted. Wet Washer Machine: ANA Transcribe Date/Time: Jun 03 2024 12:10P Dictated by : FADUMO JOSEPH MD This examination was interpreted and the report reviewed and electronically signed by: FADUMO JOSEPH MD on Jun 03 2024 12:12PM EST [id number] [facility] XR Lumbar spine 3 Viewson IMPRESSION: Lumbar spine degenerative changes and levoscoliosis. Prominent hepatic shadow, and ultrasound liver may be considered for further evaluation as clinically warranted. Wet Washer Machine: [facility] Transcribe Date/Time: Jun 03 2024 12:10P Dictated [...] Prominent hepatic shadow. DIVISION OF RADIOLOGY Provider, [facility] - 06/03/2024 * * *Final Report* * [...] considered for further evaluation as clinically warranted. Wet Washer Machine: ANA Transcribe Date/Time: Jun 03 2024 12:10P Dictated by : FADUMO JOSEPH MD This examination was interpreted and the report reviewed and electronically signed by: FADUMO JOSEPH MD on Jun 03 2024 12:12PM [facility] Alanine aminotransferase [En zymatic activity/volume] in Serum or PlasmaOrdered By: Florencio Guevara on 05-23-2024 ALT [Catalytic activity/Vol] Alanine aminotransferase [Enzymatic activity/volume] in Serum or Plasma 7-52 [facility] Albumin [Mass/volume] in Ser um or Plasma by Bromocresol green (BCG) dye binding methoOrdered By: Florencio Guevara on 05-23-2024 Albumin BCG dye [Mass/Vol] Albumin [Mass/volume] in Serum or Plasma by Bromocresol green (BCG) dye binding metho 3.5-5.7 [facility] Alkaline phosphatase [Enzyma tic activity/volume] in Serum or PlasmaOrdered By: Florencio Guevara on 05-23-2024 ALP [Catalytic activity/Vol] Alkaline phosphatase [Enzymatic activity/volume] in Serum or Plasma 34-104 [facility] Aspartate aminotransferase [ Enzymatic activity/volume] in Serum or PlasmaOrdered By: Florencio Guevara on 05-23-2024 AST [Catalytic activity/Vol] Aspartate aminotransferase [Enzymatic activity/volume] in Serum or Plasma 13-39 [facility] Basophils Auto (Bld) [#/Vol] Ordered By: Florencio Guevara on 05-23-2024 Basophils (Bld) [#/Vol] Automated basophil count 0.0-0.2 [facility] Basophils/100 WBC Auto (Bld) Ordered By: Florencio Guevara on 05-23-2024 Basophils/100 WBC (Bld) Automated basophil % . [facility] Bilirubin.total [Mass/volume ] in Serum or PlasmaOrdered By: Florencio Guevara on 05-23-2024 Bilirubin [Mass/Vol] Bilirubin.total [Mass/volume] in Serum or Plasma 0.3-1.0 [facility] Calcium [Mass/volume] in Ser um or PlasmaOrdered By: Florencio Guevara on 05-23-2024 Calcium [Mass/Vol] Calcium [Mass/volume ] in Serum or Plasma 8.6-10.3 [facility] Carbon dioxide, total [Moles /volume] in Serum or PlasmaOrdered By: Florencio Guevara on 05-23-2024 CO2 [Moles/Vol] Carbon dioxide, tota l [Moles/volume] in Serum or Plasma 21.0-31.0 [facility] Chloride [Moles/volume] in S dalia or PlasmaOrdered By: Florencio Guevara on 05-23-2024 Chloride [Moles/Vol] Chloride [Moles/vol ume] in Serum or Plasma 98-107 [facility] Complete Blood Count no refl exon 05-23-2024 Basophils (Bld) [#/Vol] 0.1 10*3/uL Normal 0.0-0.2 [facility] Comment on above: Result Comment: PERF ORMED BY: [place] [address] PATHOLOGIST CIVIL SERVICE CLERK SCOTTIE LEE M.D. Performed By: #### D IFF CBC, LACTIC, ESR, PT, PTT, BMP #### [facility] [address] Basophils/100 WBC (Bld) 0.8 % Normal . [facility] Comment on above: Performed By: #### D IFF CBC, LACTIC, ESR, PT, PTT, BMP #### [facility] [address] [place] [address] [place] Eosinophils (Bld) [#/Vol] 0.3 10*3/uL Normal 0.0-0.45 [facility] Comment on above: Performed By: #### D IFF CBC, LACTIC, ESR, PT, PTT, BMP #### [address] Eosinophils/100 WBC (Bld) 4.2 % Normal . [facility] Comment on above: Performed By: #### D IFF CBC, LACTIC, ESR, PT, PTT, BMP #### [address] Erythrocyte distribution width (RBC) [Ratio] 12.1 % Normal 11.9-15.3 [facility] Comment on above: Performed By: #### D IFF CBC, LACTIC, ESR, PT, PTT, BMP #### [address] Hematocrit (Bld) [Volume fraction] 37.4 % Normal 34.0-46.4 [facility] Comment on above: Performed By: #### D IFF CBC, LACTIC, ESR, PT, PTT, BMP #### [address] Hemoglobin (Bld) [Mass/Vol] 12.8 g/dL Normal 11.8-15.4 [facility] Comment on above: Performed By: #### D IFF CBC, LACTIC, ESR, PT, PTT, BMP #### [address] Lymphocytes (Bld) [#/Vol] 3.0 10*3/uL Normal 1.00-4.8 [facility] Comment on above: Performed By: #### D IFF CBC, LACTIC, ESR, PT, PTT, BMP #### [address] Lymphocytes/100 WBC (Bld) 41.6 % Normal . [facility] Comment on above: Performed By: #### D IFF CBC, LACTIC, ESR, PT, PTT, BMP #### [address] MCH (RBC) [Entitic mass] 31.2 pg Normal 24.7-34.3 [facility] Comment on above: Performed By: #### D IFF CBC, LACTIC, ESR, PT, PTT, BMP #### [address] MCV (RBC) [Entitic vol] 91.4 fL Normal 80-100 [facility] Comment on above: Performed By: #### D IFF CBC, LACTIC, ESR, PT, PTT, BMP #### [address] Mean Corpuscular HGB Conc 34.2 g/dL Normal 32.0-35.0 [facility] Comment on above: Performed By: #### D IFF CBC, LACTIC, ESR, PT, PTT, BMP #### [address] Monocytes (Bld) [#/Vol] 0.3 10*3/uL Normal 0.0-0.8 [facility] Comment on above: Performed By: #### D IFF CBC, LACTIC, ESR, PT, PTT, BMP #### [address] Monocytes/100 WBC (Bld) 3.8 % Normal . [facility] Comment on above: Performed By: #### D IFF CBC, LACTIC, ESR, PT, PTT, BMP #### [address] Neutrophils (Bld) [#/Vol] 3.6 10*3/uL Normal 1.8-7.7 [facility] Comment on above: Performed By: #### D IFF CBC, LACTIC, ESR, PT, PTT, BMP #### [address] Neutrophils/100 WBC (Bld) 49.6 % Normal . [facility] Comment on above: Performed By: #### D IFF CBC, LACTIC, ESR, PT, PTT, BMP #### [address] NRBC% 0.1 /100{WBC} Normal 0-0.5 [facility] Comment on above: Performed By: #### D IFF CBC, LACTIC, ESR, PT, PTT, BMP #### [address] Platelet mean volume (Bld) [Entitic vol] 8.3 fL Normal 6.3-10.7 [facility] Comment on above: Performed By: #### D IFF CBC, LACTIC, ESR, PT, PTT, BMP #### [address] Platelets (Bld) [#/Vol] 320 10*3/uL Normal 150-450 [facility] Comment on above: Performed By: #### D IFF CBC, LACTIC, ESR, PT, PTT, BMP #### [address] RBC (Bld) [#/Vol] 4.10 10*6/uL Normal 3.60-5.00 [facility] Comment on above: Performed By: #### D IFF CBC, LACTIC, ESR, PT, PTT, BMP #### [address] WBC (Bld) [#/Vol] 7.2 10*3/uL Normal 3.8-11.6 [facility] Comment on above: Performed By: #### D IFF CBC, LACTIC, ESR, PT, PTT, BMP #### [address] Comprehensive Metabolic Pane bobby 05-23-2024 Albumin [Mass/Vol] 4.6 g/dL Normal 3.5-5.7 [facility] Comment on above: Performed By: #### D IFF CBC, LACTIC, ESR, PT, PTT, BMP #### [address] Albumin/Globulin [Mass ratio] 1.8 {ratio} Normal [facility] Comment on above: Performed By: #### D IFF CBC, LACTIC, ESR, PT, PTT, BMP #### [address] ALP [Catalytic activity/Vol] 61 U/L Normal 34-104 [facility] Comment on above: Result Comment: PERF ORMED BY: [place] [address] PATHOLOGIST CIVIL SERVICE CLERK SCOTTIE LEE M.D. Performed By: #### D IFF CBC, LACTIC, ESR, PT, PTT, BMP #### [address] ALT [Catalytic activity/Vol] 27 U/L Normal 7-52 [facility] Comment on above: Performed By: #### D IFF CBC, LACTIC, ESR, PT, PTT, BMP #### [address] Anion gap [Moles/Vol] 13.2 mmol/L Normal 6.0-15.0 [facility] Comment on above: Performed By: #### D IFF CBC, LACTIC, ESR, PT, PTT, BMP #### [address] AST [Catalytic activity/Vol] 28 U/L Normal 13-39 [facility] Comment on above: Performed By: #### D IFF CBC, LACTIC, ESR, PT, PTT, BMP #### [address] Bilirubin [Mass/Vol] 0.4 mg/dL Normal 0.3-1.0 [facility] Comment on above: Performed By: #### D IFF CBC, LACTIC, ESR, PT, PTT, BMP #### [place] [address] [place] Calcium [Mass/Vol] 9.2 mg/dL Normal 8.6-10.3 [facility] Comment on above: Performed By: #### D IFF CBC, LACTIC, ESR, PT, PTT, BMP #### [place] [address] [place] Chloride [Moles/Vol] 105 mmol/L Normal 98-107 [facility] Comment on above: Performed By: #### D IFF CBC, LACTIC, ESR, PT, PTT, BMP #### [facility] [address] CO2 [Moles/Vol] 22.2 mmol/L Normal 21.0-31.0 [facility] Comment on above: Performed By: #### D IFF CBC, LACTIC, ESR, PT, PTT, BMP #### [facility] [address] Creatinine [Mass/Vol] 1.04 mg/dL Normal 0.60-1.20 [facility] Comment on above: Performed By: #### D IFF CBC, LACTIC, ESR, PT, PTT, BMP #### [address] GFR/1.73 sq M.predicted MDRD (S/P/Bld) [Vol rate/Area] mL/min/{1.73_m2} Normal [facility] Comment on above: Performed By: #### D IFF CBC, LACTIC, ESR, PT, PTT, BMP #### [facility] [address] Globulin (S) [Mass/Vol] 2.6 g/dL Normal [facility] Comment on above: Performed By: #### D IFF CBC, LACTIC, ESR, PT, PTT, BMP #### [address] Glucose [Mass/Vol] 68 mg/dL Low 70-100 [facility] Comment on above: Result Comment: [place] Glucose Reference Range is dependent on time and content of last meal. Glucose of more than 200 mg/dL in a nonstressed, ambulatory subject supports the diagnosis of Diabetes Mellitus. ADA recommended reference range Performed By: #### D IFF CBC, LACTIC, ESR, PT, PTT, BMP #### [facility] [address] Potassium [Moles/Vol] 3.4 mmol/L Low 3.5-5.1 [facility] Comment on above: Performed By: #### D IFF CBC, LACTIC, ESR, PT, PTT, BMP #### [facility] [address] Protein [Mass/Vol] 7.2 g/dL Normal 6.4-8.9 [facility] Comment on above: Performed By: #### D IFF CBC, LACTIC, ESR, PT, PTT, BMP #### [facility] [address] Sodium [Moles/Vol] 137 mmol/L Normal 136-145 [facility] Comment on above: Performed By: #### D IFF CBC, LACTIC, ESR, PT, PTT, BMP #### [facility] [address] Urea nitrogen [Mass/Vol] 17 mg/dL Normal 7-25 [facility] Comment on above: Performed By: #### D IFF CBC, LACTIC, ESR, PT, PTT, BMP #### [facility] [address] Creatinine [Mass/volume] in Serum or PlasmaOrdered By: Florencio Guevara on 05-23-2024 Creatinine [Mass/Vol] Creatinine [Mass/v olume] in Serum or Plasma 0.60-1.20 [facility] ECG 12 lead ECGon 05-23-2024 ECG 12 lead ECG [facility] Main [place] [address] [place] [address] Electrocardiograph Report Signed Patient: Karolina Nicole MR#: [id number] : 1985 Acct:[id number] Age/Sex: 38 / F ADM Date: 05/23/24 Loc: [place] Room: Type: [facility] REF Attending Dr: Florencio Guevara Jr, DO Ordering [...] change was found Confirmed by [facility], LEANDRO ([id number]) on 05/23/2024 7:33:51 PM Referred By: Electronically Signed By: LEANDRO CAMPOS MD [facility] Transcribed By: MUS Signed By Leandro Campos MD, [facility] 05/23/24 193 Normal [facility] Eosinophils Auto (Bld) [#/Vo l]Ordered By: Florencio Guevara on 05-23-2024 Eosinophils (Bld) [#/Vol] Automated eosinophil count 0.0-0.45 [facility] Eosinophils/100 WBC Auto (Bl d)Ordered By: Florencio Guevara on 05-23-2024 Eosinophils/100 WBC (Bld) Automated eosinophil % . [facility] Erythrocyte distribution wid th Auto (RBC) [Ratio]Ordered By: Florencio Guevara on 05-23-2024 Erythrocyte distribution width (RBC) [Ratio] Erythrocyte distribution width [Ratio] by Automated count 11.9-15.3 [facility] Globulin Calc (S) [Mass/Vol] Ordered By: Florencio Guevara on 05-23-2024 Globulin (S) [Mass/Vol] Serum globulin measurement by calculation (mass/volume) [facility] Glucose [Mass/volume] in Ser um or PlasmaOrdered By: Florencio Guevara on 05-23-2024 Glucose [Mass/Vol] Glucose [Mass/volume ] in Serum or Plasma Low 70-100 [facility] Comment on above: ADA recommended refe rence rangeRandom Glucose Reference Range is dependent on time and content of last meal. Glucose of more than 200 mg/dL in a nonstressed, ambulatory subject supports the diagnosis of Diabetes Mellitus. Hematocrit Auto (Bld) [Volum e fraction]Ordered By: Florencio Guevara on 05-23-2024 Hematocrit (Bld) [Volume fraction] Hematocrit [Volume Fraction] of Blood by Automated count 34.0-46.4 [facility] Hemoglobin [Mass/volume] in BloodOrdered By: Florencio Guevara on 05-23-2024 Hemoglobin (Bld) [Mass/Vol] Hemoglobin [Mass/volume] in Blood 11.8-15.4 [facility] Leukocytes [#/volume] correc insha for nucleated erythrocytes in Blood by Automated counOrdered By: Florencio Guevara on 05-23-2024 WBC corrected for nucl RBC Auto (Bld) [#/Vol] Leukocytes [#/volume] corrected for nucleated erythrocytes in Blood by Automated coun 3.8-11.6 [facility] Lymphocytes Auto (Bld) [#/Vo l]Ordered By: Florencio Guevara on 05-23-2024 Lymphocytes (Bld) [#/Vol] Lymphocytes [#/volume] in Blood by Automated count 1.00-4.8 [facility] Lymphocytes/100 WBC Auto (Bl d)Ordered By: Florencio Guevara on 05-23-2024 Lymphocytes/100 WBC (Bld) Lymphocytes/100 leukocytes in Blood by Automated count . [facility] MCH Auto (RBC) [Entitic mass ]Ordered By: Florencio Guevara on 05-23-2024 MCH (RBC) [Entitic mass] MCH [Entitic mass] by Automated count 24.7-34.3 [facility] MCHC Auto (RBC) [Mass/Vol]Or dered By: Florencio Guevara on 05-23-2024 MCHC (RBC) [Mass/Vol] MCHC [Mass/volume] by Automated count 32.0-35.0 [facility] MCV Auto (RBC) [Entitic vol] Ordered By: Florencio Guevara on 05-23-2024 MCV (RBC) [Entitic vol] MCV [Entitic volume] by Automated count 80-100 [facility] Monocytes Auto (Bld) [#/Vol] Ordered By: Florencio Guevara on 05-23-2024 Monocytes (Bld) [#/Vol] Automated blood monocyte count 0.0-0.8 [facility] Monocytes/100 WBC Auto (Bld) Ordered By: Florencio Guevara on 05-23-2024 Monocytes/100 WBC (Bld) Automated monocyte % . [facility] Neutrophils Auto (Bld) [#/Vo l]Ordered By: Florencio Guevara on 05-23-2024 Neutrophils (Bld) [#/Vol] Neutrophils [#/volume] in Blood by Automated count 1.8-7.7 [facility] Neutrophils/100 WBC Auto (Bl d)Ordered By: Florencio Guevara on 05-23-2024 Neutrophils/100 WBC (Bld) Automated neutrophil % . [facility] No Panel InformationOrdered By: Florencio Guevara on 05-23-2024 Estimated GFR (CKD-EPI) > 60.0 mL/Min [facility] Creatinine Clearance (Chem N/A [facility] Nucleated erythrocytes [Pres ence] in Blood by Automated countOrdered By: Florencio Guevara on 05-23-2024 Nucleated RBC Auto Ql (Bld) Nucleated erythrocytes [Presence] in Blood by Automated count 0-0.5 [facility] Platelet mean volume Auto (B ld) [Entitic vol]Ordered By: Florencio Guevara on 05-23-2024 Platelet mean volume (Bld) [Entitic vol] Platelet mean volume [Entitic volume] in Blood by Automated count 6.3-10.7 [facility] Platelets Auto (Bld) [#/Vol] Ordered By: Florencio Guevara on 05-23-2024 Platelets (Bld) [#/Vol] Platelets [#/volume] in Blood by Automated count 150-450 [facility] Potassium [Moles/volume] in Serum or PlasmaOrdered By: Florencio Guevara on 05-23-2024 Potassium [Moles/Vol] Potassium [Moles/v olume] in Serum or Plasma Low 3.5-5.1 [facility] Protein [Mass/volume] in Ser um or PlasmaOrdered By: Florencio Guevara on 05-23-2024 Protein [Mass/Vol] Protein [Mass/volume ] in Serum or Plasma 6.4-8.9 [facility] RBC Auto (Bld) [#/Vol]Ordere d By: Florencio Guevara on 05-23-2024 RBC (Bld) [#/Vol] Erythrocytes [#/volu me] in Blood by Automated count 3.60-5.00 [facility] Serum or plasma albumin/glob ulin mass ratioOrdered By: Florencio Guevara on 05-23-2024 Albumin/Globulin [Mass ratio] Serum or plasma albumin/globulin mass ratio [facility] Serum or plasma anion gap de terminationOrdered By: Florencio Guevara on 05-23-2024 Anion gap [Moles/Vol] Serum or plasma an ion gap determination 6.0-15.0 [facility] Sodium [Moles/volume] in Ser um or PlasmaOrdered By: Florencio Guevara on 05-23-2024 Sodium [Moles/Vol] Sodium [Moles/volume ] in Serum or Plasma 136-145 [facility] Urea nitrogen [Mass/volume] in Serum or PlasmaOrdered By: Florencio Guevara on 05-23-2024 Urea nitrogen [Mass/Vol] Urea nitrogen [Mass/volume] in Serum or Plasma 7-25 [facility] WBC Auto (Bld) [#/Vol]Ordere d By: Florencio Guevara on 05-23-2024 WBC (Bld) [#/Vol] Leukocytes [#/volume ] in Blood by Automated count 3.8-11.6 [facility] X-ray reportOrdered By: [place] on 05-23-2024 Study report [facility] [place] [address] XRay Report Signed Patient: Karolina Nicole MR#: [id number] : 1985 Acct:[id number] Age/Sex: 38 / F ADM Date: 5 Loc: [place] Room: Type: [facility] Attending Dr: Florencio Guevara Jr, DO Copies to: Florencio Guevara DO~ Ordering [...] Beach Jr., D.O.05/23/2024 3:44 PM Dictation Location: [place] [address] Transcribed By: [facility] 05/23/24 1544 Dictated By: Chance Beach Jr, DO 05/23/24 1544 Signed By: 05/23/24 1544 [facility] XR chest 1Von 05-23-2024 XR chest 1V [facility] [place] [address] XRay Report Signed Patient: Karolina Nicole MR#: [id number] : 1985 Acct:[id number] Age/Sex: 38 / F ADM Date: 05/23/24 [...] CHEST. Impression dictated by: Chance Beach Jr., EmileOClark05/23/2024 3:44 PM Dictation Location: [place] [address] Transcribed By: [facility] 05/23/241543 Dictated By: Chance [place] Jr, DO 05/23/241543 Signed By: 05/23/24 154 Normal [facility] CNOVon 05-20-2024 CNOV Office Visit (PAINLN ) -------- KAROLINA NICOLE ([id number]) 1985 F Date Time Provider Department 05/20/24 9:00 AM OSIEL CARTAGENA During your visit today, we recorded the following information about you: Pulse Weight Height 78/minute 74.8 kg 1.588 m Osiel Cartagena DO 05/20/2024 10:17 AM Signed [facility] Initial Evaluation May 20, 2024 This appointment was requested by Josefa Lopez DO for my medical opinion regarding the evaluation and management of the patient's Karolina Nicole problems, and my final recommendations will be communicated to the requesting health care provider by way of the shared medical record for internal providers or letter via the [employer] for external providers. Patient Entered [...] a 38 year old presents to [facility] Pain Management Department, accompanied by self only, [...] and social activities. Current treatments and response: Graphic Manager /PT 05/13/2024 x 2 sessions on going [...] months (see below) 1. Physical therapy: Yes [facility] x 2 sessions ongoing 2. Home exercise program after PT: Yes 3. Occupational therapy: No 4. A physician supervised home exercise program (HEP): No 5. Graphic Manager: No Passive conservative therapy lasting 6 weeks [...] mouth once daily. Cetirizine 10 mg cap mv,calcium,min/iron/foli c/vitK (MULTI FOR HER ORAL) PREMARIN 0.45 mg tablet montelukast (SINGULAIR) 10 mg t (more content not included)... Normal [facility] Basophils Auto (Bld) [#/Vol] on 04-21-2024 Basophils (Bld) [#/Vol] Automated basophil count 0.0-0.1 [facility] Basophils/100 WBC Auto (Bld) on 04-21-2024 Basophils/100 WBC (Bld) Automated basophil % 0.2-2.0 [facility] Eosinophils/100 WBC Auto (Bl d)on 04-21-2024 Eosinophils/100 WBC (Bld) Automated eosinophil % 0.9-7.0 [facility] Erythrocyte distribution wid th Auto (RBC) [Ratio]on 04-21-2024 Erythrocyte distribution width (RBC) [Ratio] Erythrocyte distribution width [Ratio] by Automated count 11.0-15.0 [facility] Estimated glomerular filtrat ion rate (GFR) non- Americanon 04-21-2024 GFR/1.73 sq M.predicted among non-blacks MDRD (S/P/Bld) [Vol rate/Area] Estimated glomerular filtration rate (GFR) non- Low >=60 mL/min/1.73 m 2 [facility] Globulin Calc (S) [Mass/Vol] on 04-21-2024 Globulin (S) [Mass/Vol] Serum globulin measurement by calculation (mass/volume) [facility] Hematocrit Auto (Bld) [Volum e fraction]on 04-21-2024 Hematocrit (Bld) [Volume fraction] Hematocrit [Volume Fraction] of Blood by Automated count 36.0-48.0 [facility] Hemoglobin [Mass/volume] in Bloodon 04-21-2024 Hemoglobin (Bld) [Mass/Vol] Hemoglobin [Mass/volume] in Blood 12.0-16.0 [facility] Laboratory - Chemistry and C hemistry - challengeon 04-21-2024 Albumin [Mass/Vol] 3.7 g/dL 3.4-5.0 [facility] ALP [Catalytic activity/Vol] 65 U/L 46-116 [facility] ALT [Catalytic activity/Vol] 28 U/L 14-59 [facility] AST [Catalytic activity/Vol] 24 U/L 15-37 [facility] Bilirubin [Mass/Vol] 0.5 mg/dL 0.2-1.0 [facility] Calcium [Mass/Vol] 8.9 mg/dL 8.5-10.1 [facility] Chloride [Moles/Vol] 109 mmol/L High 98-107 [facility] CO2 [Moles/Vol] 19.8 mmol/L Low 21.0-32.0 [facility] Creatinine [Mass/Vol] 1.13 mg/dL High 0.55-1.02 [facility] GFR/1.73 sq M.predicted MDRD (S/P/Bld) [Vol rate/Area] mL/min/{1.73_m2} >=60 mL/min/1.73 m 2 [facility] Glucose [Mass/Vol] 91 mg/dL 74-106 [facility] Potassium [Moles/Vol] 3.3 mmol/L Low 3.5-5.1 [facility] Protein [Mass/Vol] 6.8 g/dL 6.4-8.2 [facility] Sodium [Moles/Vol] 141 mmol/L 136-145 [facility] Urea nitrogen [Mass/Vol] 13.0 mg/dL 7.0-18.0 [facility] Urea nitrogen/Creatinine [Mass ratio] 11.5 mg/mg [facility] Laboratory - Hematology and Cell countson 04-21-2024 Immature granulocytes/100 WBC (Bld) 0.1 % 0.0-0.5 [facility] Leukocytes [#/volume] correc nisha for nucleated erythrocytes in Blood by Automated counon 04-21-2024 WBC corrected for nucl RBC Auto (Bld) [#/Vol] Leukocytes [#/volume] corrected for nucleated erythrocytes in Blood by Automated coun 4.0-11.0 [facility] Lymphocytes Auto (Bld) [#/Vo l]on 04-21-2024 Lymphocytes (Bld) [#/Vol] Lymphocytes [#/volume] in Blood by Automated count 1.2-3.8 [facility] Lymphocytes/100 WBC Auto (Bl d)on 04-21-2024 Lymphocytes/100 WBC (Bld) Lymphocytes/100 leukocytes in Blood by Automated count 20.5-60.0 [facility] MCH Auto (RBC) [Entitic mass ]on 04-21-2024 MCH (RBC) [Entitic mass] MCH [Entitic mass] by Automated count 26.7-34.0 [facility] MCHC Auto (RBC) [Mass/Vol]on 04-21-2024 MCHC (RBC) [Mass/Vol] MCHC [Mass/volume] by Automated count High 29.9-35.2 [facility] MCV Auto (RBC) [Entitic vol] on 04-21-2024 MCV (RBC) [Entitic vol] MCV [Entitic volume] by Automated count 81.0-99.0 [facility] Monocytes Auto (Bld) [#/Vol] on 04-21-2024 Monocytes (Bld) [#/Vol] Automated blood monocyte count 0.3-0.8 [facility] Monocytes/100 WBC Auto (Bld) on 04-21-2024 Monocytes/100 WBC (Bld) Automated monocyte % 1.7-12.0 [facility] Neutrophils Auto (Bld) [#/Vo l]on 04-21-2024 Neutrophils (Bld) [#/Vol] Neutrophils [#/volume] in Blood by Automated count 1.4-6.5 [facility] Neutrophils/100 WBC Auto (Bl d)on 04-21-2024 Neutrophils/100 WBC (Bld) Automated neutrophil % 43.0-75.0 [facility] No Panel Informationon 04-21 Eosinophils # (Auto) 0.1 10 3/uL 0.0-0.7 [facility] Immature Granulocyte # (Auto) 0.01 10 3/uL 0.00-0.03 [facility] Platelet mean volume Auto (B ld) [Entitic vol]on 04-21-2024 Platelet mean volume (Bld) [Entitic vol] Platelet mean volume [Entitic volume] in Blood by Automated count Low 9.5-13.5 [facility] Platelets Auto (Bld) [#/Vol] on 04-21-2024 Platelets (Bld) [#/Vol] Platelets [#/volume] in Blood by Automated count 150-450 [facility] RBC Auto (Bld) [#/Vol]on RBC (Bld) [#/Vol] Erythrocytes [#/volu me] in Blood by Automated count Low 4.20-5.40 [facility] Serum or plasma albumin/glob ulin mass ratioon 04-21-2024 Albumin/Globulin [Mass ratio] Serum or plasma albumin/globulin mass ratio [facility] Serum or plasma anion gap de terminationon 04-21-2024 Anion gap [Moles/Vol] Serum or plasma an ion gap determination [facility] Basic metabolic 2000 panelon 02-24-2024 Anion gap [Moles/Vol] 11 mmol/L Normal 8-15 [facility] Comment on above: Order Comment: Speci men Type: BLOOD SPECIMENOrdering Facility: [facility] Address: [address] [place] [address] Performed By: #### 2 4321-2 ####[facility] LABCLIA [id number] [place] [address] [place] Calcium [Mass/Vol] 9.3 mg/dL Normal 8.5-10.2 [facility] Comment on above: Order Comment: Speci men Type: BLOOD SPECIMENOrdering Facility: [facility] Address: [address] [place] [address] Performed By: #### 2 4321-2 ####[facility] LABCLIA [id number] [place] [address] [place] Chloride [Moles/Vol] 107 mmol/L Normal 98-107 [facility] Comment on above: Order Comment: Speci men Type: BLOOD SPECIMENOrdering Facility: [facility] Address: [address] [place] [address] Performed By: #### 2 4321-2 ####[facility] LABCLIA [id number] [place] [address] [place] CO2 [Moles/Vol] 19 mmol/L Low 22-30 [facility] Comment on above: Order Comment: Speci men Type: BLOOD SPECIMENOrdering Facility: [facility] Address: [address] [place] [address] Performed By: #### 2 4321-2 ####[facility] LABCLIA [id number] [place] [address] [place] Creatinine [Mass/Vol] 1.08 mg/dL High 0.58-0.96 [facility] Comment on above: Order Comment: Shahzad styles Type: BLOOD SPECIMENOrdering Facility: [facility] Address: [address] [place] [address] Performed By: #### 2 4321-2 ####[facility] LABCLIA [id number] [place] [address] [place] [facility] [place] Creatinine and Glomerular filtration rate.predicted panel (S/P/Bld) 68 mL/min/1.73m??? Normal >=60 [facility] Comment on above: Order Comment: Shahzad styles Type: BLOOD SPECIMENOrdering Facility: [facility] Address: [address] [place] [address] Result Comment: Pam mated Glomerular Filtration Rate [...] actual GFR. Performed By: #### 2 4321-2 ####[facility] LABCLIA [id number] [place] [address] [place] Glucose [Mass/Vol] 140 mg/dL High 74-99 [facility] Comment on above: Order Comment: Shahzad styles Type: BLOOD SPECIMENOrdering Facility: [facility] Address: [address] [place] [address] Result Comment: The [place] Diabetes Association (ADA) provides guidance for cutoff [...] Standards of Medical Care in Diabetes 2016, British Diabetes Association. Diabetes Care. 2016.39(Suppl 1). Performed By: #### 2 4321-2 ####[facility] LABCLIA [id number] [place] [address] [place] Potassium [Moles/Vol] 3.7 mmol/L Normal 3.7-5.1 [facility] Comment on above: Order Comment: Shahzad styles Type: BLOOD SPECIMENOrdering Facility: [facility] Address: [address] [place] [address] Performed By: #### 2 4321-2 ####[facility] LABIA [id number] [place] [address] [place] Sodium [Moles/Vol] 137 mmol/L Normal 136-144 [facility] Comment on above: Order Comment: Shahzad styles Type: BLOOD SPECIMENOrdering Facility: [facility] Address: [address] [place] [address] Performed By: #### 2 4321-2 ####[facility] LABIA [id number] [place] [address] [place] Urea nitrogen [Mass/Vol] 12 mg/dL Normal 7-21 [facility] Comment on above: Order Comment: Shahzad styles Type: BLOOD SPECIMENOrdering Facility: [facility] Address: [address] [place] [address] Performed By: #### 2 4321-2 ####[facility] LABIA [id number] [place] [address] [place] CNOVon 02-24-2024 CNOV Office Visit (NPRC21 ) -------- KAROLINA NICOLE ([id number]) 1985 F Date Time Provider Department 02/24/24 10:00 AM JOSEFA FALK NPRC21 During your visit today, we recorded the following information about you: Blood pressure Weight 135/93 71.6 kg Josefa Falk DO 02/24/2024 11:29 AM Signed [facility] [place] February 24, 2024 Karolina Nicole is a 38 year old 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 She [facility] [address]. Chief complaint: Polyathralgia, chronic pain SUBJECTIVE: Has [...] 2012 CHF: No Uncontrolled HTN: No Recent ND: No Arrythmias: No Afib: No Hyperthyroid: No Aortic Stenosis: No Liver Failure: No Increased ICP: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 d)Ordered By: Eli Antony on 08-25-2023 Lymphocytes/100 WBC (Bld) 42.4 % . [facility] MCH Auto (RBC) [Entitic mass ]Ordered By: Eli Antony on 08-25-2023 MCH (RBC) [Entitic mass] 30.5 pg 24.7-34.3 [facility] MCHC Auto (RBC) [Mass/Vol]Or dered By: Eli Brooksimminoo on 08-25-2023 MCHC (RBC) [Mass/Vol] 34.0 g/dL 32.0-35.0 [facility] MCV Auto (RBC) [Entitic vol] Ordered By: Eli Antony on 08-25-2023 MCV (RBC) [Entitic vol] 89.7 fL 80-100 [facility] Manual cerebrospinal fluid e rythrocytes count (number/volume)Ordered By: Curt Novoa on 08-25-2023 RBC Manual cnt (CSF) [#/Vol] 2 /uL [facility] Comment on above: The reference interv al and other method performance specifications have not been established for this body fluid. The test result must be integrated into the clinical context for interpretation. Meningitis+Encephalitis path ogens DNA and RNA panel - Cerebral spinal fluid by KIRSTIN wiOrdered By: Curt Novoa on 08-25-2023 Meningitis+Encephaliti s pathogens DNA and RNA panel KIRSTIN+non-probe (CSF) [facility] Monocyte distribution width [Entitic volume] in Blood by AutomatedOrdered By: Eli Antony on 08-25-2023 Monocyte distribution width Auto (Bld) [Entitic vol] 22.85 % 0.00-20.00 [facility] Comment on above: For adults in ED, MD W > 20.0 may be associated with a higher risk of sepsis during the first 12 hrs of hospital admission Monocytes Auto (Bld) [#/Vol] Ordered By: Eli Antony on 08-25-2023 Monocytes (Bld) [#/Vol] 0.4 10*3/uL 0.0-0.8 [facility] Monocytes/100 WBC Auto (Bld) Ordered By: Eli Brooksimore on 08-25-2023 Monocytes/100 WBC (Bld) 6.0 % . [facility] Neutrophils Auto (Bld) [#/Vo l]Ordered By: Eli Toddimore on 08-25-2023 Neutrophils (Bld) [#/Vol] 2.9 10*3/uL 1.8-7.7 [facility] Neutrophils/100 WBC Auto (Bl d)Ordered By: Eli Brooksimore on 08-25-2023 Neutrophils/100 WBC (Bld) 44.1 % . [facility] Nitrite Test strip Ql (U)Ord ered By: Eli Antony on 08-25-2023 Nitrite Ql (U) Negative Negative [facility] No Panel InformationOrdered By: Curt Novoa on 08-25-2023 CSF Eosinophils 0 [facility] Comment on above: The reference interv al and other method performance specifications have not been established for this body fluid. The test result must be integrated into the clinical context for interpretation. CSF Lymphocytes 19 [facility] Comment on above: The reference interv al and other method performance specifications have not been established for this body fluid. The test result must be integrated into the clinical context for interpretation. CSF Monocytes 6 [facility] Comment on above: The reference interv al and other method performance specifications have not been established for this body fluid. The test result must be integrated into the clinical context for interpretation. CSF Neutrophils 0 [facility] Comment on above: The reference interv al and other method performance specifications have not been established for this body fluid. The test result must be integrated into the clinical context for interpretation. CSF Tube Number Tube number: 1 [facility] No Panel InformationOrdered By: Eli Antony on 08-25-2023 Estimated GFR (CKD-EPI) > 60.0 mL/Min [facility] Creatinine Clearance (Chem 97.78 [facility] Nucleated cells [#/volume] i n Cerebral spinal fluid by Manual countOrdered By: Curt Novoa on 08-25-2023 Nucleated cells Manual cnt (CSF) [#/Vol] 0.002 10*3/uL 0-5 [facility] Nucleated erythrocytes [Pres ence] in Blood by Automated countOrdered By: Eli Antony on 08-25-2023 Nucleated RBC Auto Ql (Bld) 0.1 /100{WBC} 0-0.5 [facility] Platelet mean volume Auto (B ld) [Entitic vol]Ordered By: Eli Brooksimore on 08-25-2023 Platelet mean volume (Bld) [Entitic vol] 7.9 fL 6.3-10.7 [facility] Platelets Auto (Bld) [#/Vol] Ordered By: Eli Bullimore on 08-25-2023 Platelets (Bld) [#/Vol] 303 10*3/uL 150-450 [facility] Potassium [Moles/volume] in Serum or PlasmaOrdered By: Eli Antony on 08-25-2023 Potassium [Moles/Vol] 3.7 mmol/L 3.5-5.1 [facility] Protein Auto test strip (U) [Mass/Vol]Ordered By: Eli Antony on 08-25-2023 Protein (U) [Mass/Vol] Negative Negative [facility] Protein [Mass/volume] in Cer ebral spinal fluidOrdered By: Curt Novoa on 08-25-2023 Protein (CSF) [Mass/Vol] 44 mg/dL 15-45 [facility] Protein [Mass/volume] in Ser um or PlasmaOrdered By: Eli Antony on 08-25-2023 Protein [Mass/Vol] 7.1 g/dL 6.4-8.9 [facility] Prothrombin time (PT)Ordered By: Curt Novoa on 08-25-2023 PT Coag (PPP) [Time] 11.9 s 9.0-12.9 [facility] Comment on above: A hematocrit value g reater than 55% may lead to inaccurate results in coagulation testing. Patients having hematocrit values >55% require a special collection tube for coagulation studies. Please contact the laboratory at [phone] for redraw instructions. RBC Auto (Bld) [#/Vol]Ordere d By: Eli Brooksimore on 08-25-2023 RBC (Bld) [#/Vol] 4.20 10*6/uL 3.60-5.00 [facility] Serum or plasma albumin/glob ulin mass ratioOrdered By: Eli Antony on 08-25-2023 Albumin/Globulin [Mass ratio] 1.4 {ratio} [facility] Serum or plasma anion gap de terminationOrdered By: Eli Antony on 08-25-2023 Anion gap [Moles/Vol] 10.1 mmol/L 6.0-15.0 [facility] Sodium [Moles/volume] in Ser um or PlasmaOrdered By: Eli Brooksimore on 08-25-2023 Sodium [Moles/Vol] 139 mmol/L 136-145 [facility] Specific gravity Auto test s trip (U) [Rel density]Ordered By: Eli Antony on 08-25-2023 Specific gravity (U) [Rel density] 1.006 1.001-1.030 [facility] Urea nitrogen [Mass/volume] in Serum or PlasmaOrdered By: Eli Antony on 08-25-2023 Urea nitrogen [Mass/Vol] 7 mg/dL 7-25 [facility] Urine clarity by refractomet ry automatedOrdered By: Eli Antony on 08-25-2023 Clarity Refractometry automated (U) Clear Clear [facility] Urine glucose measurement by automated test strip (mass/volume)Ordered By: Eli Antony on 08-25-2023 Glucose Auto test strip (U) [Mass/Vol] Normal mg/dL Normal [facility] Urine hemoglobin detection b y automated test stripOrdered By: Eli Antony on 08-25-2023 Hemoglobin Auto test strip Ql (U) Negative Negative [facility] Urine leukocyte esterase det ection by automated test stripOrdered By: Eli Antony on 08-25-2023 Leukocyte esterase Auto test strip Ql (U) Negative Negative [facility] Urobilinogen Auto test strip (U) [Mass/Vol]Ordered By: Eli Antony on 08-25-2023 Urobilinogen (U) [Mass/Vol] Normal mg/dL Normal [facility] WBC Auto (Bld) [#/Vol]Ordere d By: Eli Antony on 08-25-2023 WBC (Bld) [#/Vol] 6.5 10*3/uL 3.8-11.6 [facility] pH Auto test strip (U)Ordere d By: Eli Antony on 08-25-2023 pH (U) 6.5 [pH] 5.0-9.0 [facility] Activated partial thrombopla stin time (aPTT) in platelet poor plasma by coagulation aOrdered By: Curt Novoa on 08-23-2023 aPTT Coag (PPP) [Time] 28.4 s 25.1-36.5 [facility] Comment on above: A hematocrit value g reater than 55% may lead to inaccurate results in coagulation testing. Patients having hematocrit values >55% require a special collection tube for coagulation studies. Please contact the laboratory at [phone] for redraw instructions. Alanine aminotransferase [En zymatic activity/volume] in Serum or PlasmaOrdered By: Curt Novoa on 08-23-2023 ALT [Catalytic activity/Vol] 26 U/L 7-52 [facility] Albumin [Mass/volume] in Ser um or Plasma by Bromocresol green (BCG) dye binding methoOrdered By: Curt Novoa on 08-23-2023 Albumin BCG dye [Mass/Vol] 4.2 g/dL 3.5-5.7 [facility] Alkaline phosphatase [Enzyma tic activity/volume] in Serum or PlasmaOrdered By: Curt Novoa on 08-23-2023 ALP [Catalytic activity/Vol] 72 U/L 34-104 [facility] Aspartate aminotransferase [ Enzymatic activity/volume] in Serum or PlasmaOrdered By: Curt Novoa on 08-23-2023 AST [Catalytic activity/Vol] 32 U/L 13-39 [facility] Automated erythrocytes count in urine sediment (number/area)Ordered By: Curt Novoa on 08-23-2023 RBC Auto (Urine sed) [#/Area] 1-2 [HPF] 0-4 [facility] Automated leukocytes count i n urine sediment (number/area)Ordered By: Curt Novoa on 08-23-2023 WBC Auto (Urine sed) [#/Area] 0-1 [HPF] 0-4 [facility] Bacterial blood cultureOrder ed By: Curt Novoa on 08-23-2023 Bacteria identified Cx Nom (Bld) NO GROWTH 5 DAYS [facility] Bacteria identified Cx Nom (Bld) NO GROWTH 5 DAYS [facility] Basophils Auto (Bld) [#/Vol] Ordered By: Curt Novoa on 08-23-2023 Basophils (Bld) [#/Vol] 0.0 10*3/uL 0.0-0.2 [facility] Basophils/100 WBC Auto (Bld) Ordered By: Curt Novoa on 08-23-2023 Basophils/100 WBC (Bld) 0.4 % . [facility] Bilirubin Test strip Ql (U)O rdered By: Curt Novoa on 08-23-2023 Bilirubin Ql (U) Negative Negative [facility] Bilirubin.direct [Mass/volum e] in Serum or PlasmaOrdered By: Curt Novoa on 08-23-2023 Bilirubin.direct [Mass/Vol] 0.10 mg/dL 0.03-0.18 [facility] Bilirubin.total [Mass/volume ] in Serum or PlasmaOrdered By: Curt Novoa on 08-23-2023 Bilirubin [Mass/Vol] 0.4 mg/dL 0.3-1.0 [facility] COVID-19 Detected/Not Detect edOrdered By: Curt Novoa on 08-23-2023 SARS-CoV-2 (COVID-19) RNA KIRSTIN+non-probe Ql (Nph) Not detected Not Detecte [facility] Comment on above: This is a duplicate RP2.1 COVID (PCR) result to be used for statistical tracking purpose only. Calcium [Mass/volume] in Ser um or PlasmaOrdered By: Curt Novoa on 08-23-2023 Calcium [Mass/Vol] 9.2 mg/dL 8.6-10.3 [facility] Carbon dioxide, total [Moles /volume] in Serum or PlasmaOrdered By: Curt Novoa on 08-23-2023 CO2 [Moles/Vol] 21.3 mmol/L 21.0-31.0 [facility] Chloride [Moles/volume] in S dalia or PlasmaOrdered By: Curt Novoa on 08-23-2023 Chloride [Moles/Vol] 108 mmol/L 98-107 [facility] Color Auto (U)Ordered By: Félix red Sommer on 08-23-2023 Color (U) Yellow Yellow [facility] Creatinine [Mass/volume] in Serum or PlasmaOrdered By: Curt Novoa on 08-23-2023 Creatinine [Mass/Vol] 1.11 mg/dL 0.60-1.20 [facility] Eosinophils Auto (Bld) [#/Vo l]Ordered By: Curt Novoa on 08-23-2023 Eosinophils (Bld) [#/Vol] 0.1 10*3/uL 0.0-0.45 [facility] Eosinophils/100 WBC Auto (Bl d)Ordered By: Curt Novoa on 08-23-2023 Eosinophils/100 WBC (Bld) 0.7 % . [facility] Erythrocyte distribution wid th Auto (RBC) [Ratio]Ordered By: Curt Novoa on 08-23-2023 Erythrocyte distribution width (RBC) [Ratio] 12.5 % 11.9-15.3 [facility] Globulin Calc (S) [Mass/Vol] Ordered By: Curt Novoa on 08-23-2023 Globulin (S) [Mass/Vol] 2.7 g/dL [facility] Glucose [Mass/volume] in Ser um or PlasmaOrdered By: Curt Novoa on 08-23-2023 Glucose [Mass/Vol] 102 mg/dL 70-100 [facility] Comment on above: ADA recommended refe rence rangeRandom Glucose Reference Range is dependent on time and content of last meal. Glucose of more than 200 mg/dL in a nonstressed, ambulatory subject supports the diagnosis of Diabetes Mellitus. HCG ( test) IA.rapi d Ql (U)Ordered By: Curt Novoa on 08-23-2023 HCG ( test) Ql (U) Negative [facility] Hematocrit Auto (Bld) [Volum e fraction]Ordered By: Curt Novoa on 08-23-2023 Hematocrit (Bld) [Volume fraction] 35.7 % 34.0-46.4 [facility] Hemoglobin [Mass/volume] in BloodOrdered By: Curt Novoa on 08-23-2023 Hemoglobin (Bld) [Mass/Vol] 12.4 g/dL 11.8-15.4 [facility] INR in Platelet poor plasma by Coagulation assayOrdered By: Curt Novoa on 08-23-2023 INR Coag (PPP) [Relative time] 1.1 {INR} [facility] Comment on above: INR Therapeutic Rang e A) Pre- and Peroperative OAT started two weeks before surgery. NOT HIP SURGERY: 1.5 - 2.5 HIP SURGERY: 2 - 3B) Primary and secondary prevention of venous THROMBOSIS: 2 - 3C) Active venous thrombosis, pulmonary embolismand prevention of recurrent venous thrombosis: 2 - 3D) Prevention of arterial thromboembolismincluding patients with mechanical heart valves: 3 - 4.5 Ketones Auto test strip (U) [Mass/Vol]Ordered By: Curt Novoa on 08-23-2023 Ketones (U) [Mass/Vol] Negative Negative Fi [facility] - UrinalysisOrder ed By: Curt Novoa on 08-23-2023 Hyaline casts LM Ql (Urine sed) 0-8 [LPF] 0-8 [facility] Lactate [Moles/volume] in Se rum or PlasmaOrdered By: Curt Novoa on 08-23-2023 Lactate [Moles/Vol] 1.0 mmol/L 0.5-2.2 [facility] Leukocytes [#/volume] correc nisha for nucleated erythrocytes in Blood by Automated counOrdered By: Curt Novoa on 08-23-2023 WBC corrected for nucl RBC Auto (Bld) [#/Vol] 8.1 10*3/uL 3.8-11.6 [facility] Lipase [Enzymatic activity/v olume] in Serum or PlasmaOrdered By: Curt Novoa on 08-23-2023 Lipase [Catalytic activity/Vol] 30.0 U/L 11.0-82.0 [facility] Lymphocytes Auto (Bld) [#/Vo l]Ordered By: Curt Novoa on 08-23-2023 Lymphocytes (Bld) [#/Vol] 1.9 10*3/uL 1.00-4.8 [facility] Lymphocytes/100 WBC Auto (Bl d)Ordered By: Curt Novoa on 08-23-2023 Lymphocytes/100 WBC (Bld) 23.3 % . [facility] MCH Auto (RBC) [Entitic mass ]Ordered By: Curt Novoa on 08-23-2023 MCH (RBC) [Entitic mass] 31.2 pg 24.7-34.3 [facility] MCHC Auto (RBC) [Mass/Vol]Or dered By: Curt Novoa on 08-23-2023 MCHC (RBC) [Mass/Vol] 34.7 g/dL 32.0-35.0 [facility] MCV Auto (RBC) [Entitic vol] Ordered By: Curt Novoa on 08-23-2023 MCV (RBC) [Entitic vol] 89.9 fL 80-100 [facility] Monocyte distribution width [Entitic volume] in Blood by AutomatedOrdered By: Curt Novoa on 08-23-2023 Monocyte distribution width Auto (Bld) [Entitic vol] 31.19 % 0.00-20.00 [facility] Comment on above: For adults in ED, MD W > 20.0 may be associated with a higher risk of sepsis during the first 12 hrs of hospital admission Monocytes Auto (Bld) [#/Vol] Ordered By: Curt Novoa on 08-23-2023 Monocytes (Bld) [#/Vol] 0.5 10*3/uL 0.0-0.8 [facility] Monocytes/100 WBC Auto (Bld) Ordered By: Curt Novoa on 08-23-2023 Monocytes/100 WBC (Bld) 5.8 % . [facility] Neutrophils Auto (Bld) [#/Vo l]Ordered By: Curt Novoa on 08-23-2023 Neutrophils (Bld) [#/Vol] 5.6 10*3/uL 1.8-7.7 [facility] Neutrophils/100 WBC Auto (Bl d)Ordered By: Curt Novoa on 08-23-2023 Neutrophils/100 WBC (Bld) 69.8 % . [facility] Nitrite Test strip Ql (U)Ord ered By: Curt Novoa on 08-23-2023 Nitrite Ql (U) Negative Negative [facility] No Panel InformationOrdered By: Curt Novoa on 08-23-2023 Estimated GFR (CKD-EPI) > 60.0 mL/Min [facility] Creatinine Clearance (Chem 71.19 [facility] Nucleated erythrocytes [Pres ence] in Blood by Automated countOrdered By: Curt Novoa on 08-23-2023 Nucleated RBC Auto Ql (Bld) 0.2 /100{WBC} 0-0.5 [facility] Platelet mean volume Auto (B ld) [Entitic vol]Ordered By: Curt Novoa on 08-23-2023 Platelet mean volume (Bld) [Entitic vol] 10.0 fL 6.3-10.7 [facility] Platelets Auto (Bld) [#/Vol] Ordered By: Curt Novoa on 08-23-2023 Platelets (Bld) [#/Vol] 59 10*3/uL 150-450 [facility] Potassium [Moles/volume] in Serum or PlasmaOrdered By: Curt Novoa on 08-23-2023 Potassium [Moles/Vol] 4.1 mmol/L 3.5-5.1 [facility] Protein Auto test strip (U) [Mass/Vol]Ordered By: Curt Novoa on 08-23-2023 Protein (U) [Mass/Vol] 100 mg/dL Negative [facility] Protein [Mass/volume] in Ser um or PlasmaOrdered By: Curt Novoa on 08-23-2023 Protein [Mass/Vol] 6.9 g/dL 6.4-8.9 [facility] Prothrombin time (PT)Ordered By: Curt Novoa on 08-23-2023 PT Coag (PPP) [Time] 12.3 s 9.0-12.9 [facility] Comment on above: A hematocrit value g reater than 55% may lead to inaccurate results in coagulation testing. Patients having hematocrit values >55% require a special collection tube for coagulation studies. Please contact the laboratory at [phone] for redraw instructions. RBC Auto (Bld) [#/Vol]Ordere d By: Curt Novoa on 08-23-2023 RBC (Bld) [#/Vol] 3.97 10*6/uL 3.60-5.00 [facility] Respiratory pathogens DNA an d RNA panel - Nasopharynx by KIRSTIN with non-probe detectionOrdered By: Curt Novoa on 08-23-2023 Respiratory pathogens DNA and RNA panel KIRSTIN+non-probe (Nph) [facility] Serum or plasma albumin/glob ulin mass ratioOrdered By: Curt Novoa on 08-23-2023 Albumin/Globulin [Mass ratio] 1.6 {ratio} [facility] Serum or plasma anion gap de terminationOrdered By: Curt Novoa on 08-23-2023 Anion gap [Moles/Vol] 12.8 mmol/L 6.0-15.0 [facility] Serum or plasma non-glucuron idated bilirubin measurement (mass/volume)Ordered By: Curt Novoa on 08-23-2023 Bilirubin.indirect [Mass/Vol] 0.3 mg/dL [facility] Sodium [Moles/volume] in Ser um or PlasmaOrdered By: Curt Novoa on 08-23-2023 Sodium [Moles/Vol] 138 mmol/L 136-145 [facility] Specific gravity Auto test s trip (U) [Rel density]Ordered By: Curt Novoa 08-23-2023 Specific gravity (U) [Rel density] 1.021 1.001-1.030 [facility] Squamous epithelial cells de tection in urine sediment by light microscopyOrdered By: Curt Novoa 08-23-2023 Epithelial cells.squamous LM Ql (Urine sed) 0-1 [HPF] 0-2 [facility] Streptococcus pyogenes antig en detectionOrdered By: Curt Novoa on 08-23-2023 S. pyogenes Ag Ql (Unsp spec) [facility] Urea nitrogen [Mass/volume] in Serum or PlasmaOrdered By: Curt Novoa 08-23-2023 Urea nitrogen [Mass/Vol] 12 mg/dL 7-25 [facility] Urine bacteria detection by automated methodOrdered By: Curt Novoa on 08-23-2023 Bacteria Auto Ql (U) None seen None Seen [facility] Urine clarity by refractomet ry automatedOrdered By: Curt Novoa on 08-23-2023 Clarity Refractometry automated (U) Clear Clear [facility] Urine glucose measurement by automated test strip (mass/volume)Ordered By: Curt Novoa on 08-23-2023 Glucose Auto test strip (U) [Mass/Vol] Normal mg/dL Normal [facility] Urine hemoglobin detection b y automated test stripOrdered By: Curt Novoa on 08-23-2023 Hemoglobin Auto test strip Ql (U) Negative Negative [facility] Urine leukocyte esterase det ection by automated test stripOrdered By: Curt Novoa on 08-23-2023 Leukocyte esterase Auto test strip Ql (U) Negative Negative [facility] Urobilinogen Auto test strip (U) [Mass/Vol]Ordered By: Curt Novoa on 08-23-2023 Urobilinogen (U) [Mass/Vol] Normal mg/dL Normal [facility] WBC Auto (Bld) [#/Vol]Ordere d By: Curt Novoa on 08-23-2023 WBC (Bld) [#/Vol] 8.1 10*3/uL 3.8-11.6 [facility] pH Auto test strip (U)Ordere d By: Curt Novoa on 08-23-2023 pH (U) 7.5 [pH] 5.0-9.0 [facility] Alkaline phosphatase [Enzyma tic activity/volume] in Serum or PlasmaOrdered By: Vanessa Duran on 07-29-2023 ALP [Catalytic activity/Vol] 53 U/L 34-104 [facility] Amphetamine Screen Ql (U)Ord ered By: Vanessa Duran on 07-29-2023 Amphetamines Ql (U) Negative Negative [facility] Amylase [Enzymatic activity/ volume] in Serum or PlasmaOrdered By: Vanessa Duran on 07-29-2023 Amylase [Catalytic activity/Vol] 43 U/L 29-103 [facility] Barbiturates [Presence] in U rine by Screen methodOrdered By: Vanessa Duran on 07-29-2023 Barbiturates Screen Ql (U) Negative Negative [facility] Benzodiazepines Screen Ql (U )Ordered By: Vanessa Duran on 07-29-2023 Benzodiazepines Ql (U) Negative Negative [facility] Benzoylecgonine [Presence] i n Urine by Screen methodOrdered By: Vanessa Duran on 07-29-2023 Benzoylecgonine Screen Ql (U) Negative Negative [facility] Bilirubin.direct [Mass/volum e] in Serum or PlasmaOrdered By: Vanessa Duran on 07-29-2023 Bilirubin.direct [Mass/Vol] 0.10 mg/dL 0.03-0.18 [facility] Bilirubin.total [Mass/volume ] in Serum or PlasmaOrdered By: Vanessa Duran on 07-29-2023 Bilirubin [Mass/Vol] 0.6 mg/dL 0.3-1.0 [facility] Cannabinoids [Presence] in U rine by Screen methodOrdered By: Vanessa Duran on 07-29-2023 Cannabinoids Screen Ql (U) Positive Negative [facility] Comment on above: These are unconfirme d results and should not be used for legal purposes. Drug Cut-Off Concentration: AMPH 1000 ng/mL MALIK 200 ng/mL DMITRY 200 ng/mL COCM 300 ng/mL OP 300 ng/mL PCP 25 ng/mL THC 20 ng/mL HCG ( test) IA.rapi d Ql (U)Ordered By: Shahid Voss on 07-29-2023 HCG ( test) Ql (U) Negative [facility] Lipase [Enzymatic activity/v olume] in Serum or PlasmaOrdered By: Vanessa Duran on 07-29-2023 Lipase [Catalytic activity/Vol] 27.0 U/L 11.0-82.0 [facility] Opiates [Presence] in Urine by Screen methodOrdered By: Vanessa Duran on 07-29-2023 Opiates Screen Ql (U) Negative Negative [facility] Phencyclidine Screen Ql (U)O rdered By: Vanessa Duran on 07-29-2023 Phencyclidine Ql (U) Negative Negative [facility] Serum or plasma non-glucuron idated bilirubin measurement (mass/volume)Ordered By: Vanessa Duran on 07-29-2023 Bilirubin.indirect [Mass/Vol] 0.5 mg/dL [facility] BASIC METABOLIC PANELon 06-12 Anion gap [Moles/Vol] 12 mmol/L Normal 10-20 [facility] Comment on above: Performed By: #### C H8 #### [facility] [address], [place], Calcium [Mass/Vol] 9.9 mg/dL Normal 8.6-10.3 [facility] Comment on above: Performed By: #### C H8 #### [facility] [address], [place], Chloride [Moles/Vol] 105 mmol/L Normal 98-107 [facility] Comment on above: Performed By: #### C H8 #### [facility] [address], [place], CO2 [Moles/Vol] 26 mmol/L Normal 21-31 [facility] Comment on above: Performed By: #### C H8 #### [facility] [address], [place], Creatinine [Mass/Vol] 0.92 mg/dL Normal 0.60-1.20 [facility] Comment on above: Performed By: #### C H8 #### [facility] [address], [place], ESTIMATED GFR (CKD-EPI) 82 mL/min/1.73sqm Normal >=60 [facility] Comment on above: Result Comment: 2020 CKD EPI Equation using Creatinine without Race Comment: Estimated glomerular filtration rate (eGFR) is calculated without a race coefficient. Values should be interpreted in the context of the patient's full clinical presentation. Reference: 1. Quinn C, Selene M, Cynthia HERRING, et al.. A Unifying Approach for GFR Estimation: Recommendations of the NKF-ASN Task Force on Reassessing the Inclusion of Race in Diagnosing Kidney Disease. British Journal of Kidney Diseases 2021;79(2):268-88.e1. 2. N Engl J Med 1 Vol. 385 Issue 19 Pages 3203-4368 Performed By: #### C H8 #### [facility] [address], [place], Glucose [Mass/Vol] 91 mg/dL Normal 74-109 [facility] Comment on above: Performed By: #### C H8 #### [facility] [address], [place], Potassium [Moles/Vol] 4.0 mmol/L Normal 3.5-5.0 [facility] Comment on above: Performed By: #### C H8 #### [facility] [address], [place], Sodium [Moles/Vol] 139 mmol/L Normal 136-145 [facility] Comment on above: Performed By: #### C H8 #### [facility] [address], [place], Urea nitrogen [Mass/Vol] 14 mg/dL Normal 7-25 [facility] Comment on above: Performed By: #### C H8 #### [facility] [address], [place], Basic metabolic 2000 panelon 07-09-2023 Anion gap [...] (S/P/Bld) [Vol rate/Area] 82 - PINF [facility] Comment on above: 2020 CKD EPI Equatio n using Creatinine without Race Comment: Estimated glomerular filtration rate (eGFR) is calculated without a race coefficient. Values should be interpreted in the context of the patient's full clinical presentation. Reference: 1. Quinn C, Selene M, Cynthia HERRING, et al.. A Unifying Approach for GFR Estimation: Recommendations of the NKF-ASN Task Force on Reassessing the Inclusion of Race in Diagnosing Kidney Disease. British Journal of Kidney Diseases 2021;79(2):268-88.e1. 2. N Engl J Med 2021 Vol. 385 Issue 19 Pages 0057-2394 Glucose [Mass/Vol] 91 mg/dL 74 - 109 mg/dL [facility] Interpretation and review of laboratory results Normal [facility] Potassium [Moles/Vol] 4.0 mmol/L 3.5 - 5.0 mmol/L [facility] Sodium [Moles/Vol] 139 mmol/L 136 - 145 mmol/L [facility] Urea nitrogen [Mass/Vol] 14 mg/dL 7 - 25 mg/dL [facility] CT FACE SOFT TISSUE W/CONTRA STon [...] left mastoid effusion. MACRO: None Normal [facility] CT Maxillofacial region W co ntrast IVOrdered By: Sis Naqvi on 07-09-2023 CT DLP 313.5 (mGy.cm) [facility] Work Phone: CT Series Head [facility] Work Phone: CTDI VOL 16.3 (mGy) [facility] Work Phone: PHANTOM TYPE IEC Head Dosimetry Ph[employer] [facility] Work Phone: [facility] Work Phone: CT Maxillofacial region W [...] small left mastoid effusion. MACRO: None [facility] Work Phone: Radiology Study observation (narrative) [facility] Work Phone: ED Noteson 07-09-2023 [employer] Authentication Interface Message Text Bed: 58 Expected date: Expected time: Means of arrival: Comments: Eye Room Normal [facility] ED Provider Noteson 07-09-19 [employer] Authentication Interface Message Text ------ HISTORY OF PRESENT ILLNESS -- 07/09/2023, 4:36 PM. The history is provided [...] eye contact. Appropriate in content/context. Normal affect. LABORATORY RESULTS Results for orders placed or [...] Inclu (more content not included)... Normal [facility] Alanine aminotransferase [En zymatic activity/volume] in Serum or PlasmaOrdered By: Kat Sosa on 06-09-2023 ALT [Catalytic activity/Vol] 27 U/L 7-52 [facility] Albumin [Mass/volume] in Ser um or Plasma by Bromocresol green (BCG) dye binding methoOrdered By: Kat Sosa on 06-09-2023 Albumin BCG dye [Mass/Vol] 4.3 g/dL 3.5-5.7 [facility] Alkaline phosphatase [Enzyma tic activity/volume] in Serum or PlasmaOrdered By: Kat Sosa on 06-09-2023 ALP [Catalytic activity/Vol] 77 U/L 34-104 [facility] Aspartate aminotransferase [ Enzymatic activity/volume] in Serum or PlasmaOrdered By: Kat Sosa on 06-09-2023 AST [Catalytic activity/Vol] 30 U/L 13-39 [facility] Basophils Auto (Bld) [#/Vol] Ordered By: Kat Sosa on 06-09-2023 Basophils (Bld) [#/Vol] 0.1 10*3/uL 0.0-0.2 [facility] Basophils/100 WBC Auto (Bld) Ordered By: Kat Sosa on 06-09-2023 Basophils/100 WBC (Bld) 1.1 % . [facility] Bilirubin Test strip Ql (U)O rdered By: Kat Sosa on 06-09-2023 Bilirubin Ql (U) Negative Negative [facility] Bilirubin.direct [Mass/volum e] in Serum or PlasmaOrdered By: Kat Sosa on 06-09-2023 Bilirubin.direct [Mass/Vol] 0.10 mg/dL 0.03-0.18 [facility] Bilirubin.total [Mass/volume ] in Serum or PlasmaOrdered By: Kat Sosa on 06-09-2023 Bilirubin [Mass/Vol] 0.3 mg/dL 0.3-1.0 [facility] Calcium [Mass/volume] in Ser um or PlasmaOrdered By: Kat Sosa on 06-09-2023 Calcium [Mass/Vol] 9.2 mg/dL 8.6-10.3 [facility] Carbon dioxide, total [Moles /volume] in Serum or PlasmaOrdered By: Kat Sosa on 06-09-2023 CO2 [Moles/Vol] 25.3 mmol/L 21.0-31.0 [facility] Chloride [Moles/volume] in S dalia or PlasmaOrdered By: Kat Sosa on 06-09-2023 Chloride [Moles/Vol] 108 mmol/L 98-107 [facility] Color Auto (U)Ordered By: Teodoro Sosa on 06-09-2023 Color (U) Yellow Yellow [facility] Creatinine [Mass/volume] in Serum or PlasmaOrdered By: Kat Sosa on 06-09-2023 Creatinine [Mass/Vol] 0.90 mg/dL 0.60-1.20 [facility] Eosinophils Auto (Bld) [#/Vo l]Ordered By: Kat Sosa on 06-09-2023 Eosinophils (Bld) [#/Vol] 0.3 10*3/uL 0.0-0.45 [facility] Eosinophils/100 WBC Auto (Bl d)Ordered By: Kat Sosa on 06-09-2023 Eosinophils/100 WBC (Bld) 3.7 % . [facility] Erythrocyte distribution wid th Auto (RBC) [Ratio]Ordered By: Kat Sosa on 06-09-2023 Erythrocyte distribution width (RBC) [Ratio] 12.5 % 11.9-15.3 [facility] Globulin Calc (S) [Mass/Vol] Ordered By: Kat Sosa on 06-09-2023 Globulin (S) [Mass/Vol] 2.1 g/dL [facility] Glucose [Mass/volume] in Ser um or PlasmaOrdered By: Kat Sosa on 06-09-2023 Glucose [Mass/Vol] 105 mg/dL 70-100 [facility] Comment on above: ADA recommended refe rence rangeRandom Glucose Reference Range is dependent on time and content of last meal. Glucose of more than 200 mg/dL in a nonstressed, ambulatory subject supports the diagnosis of Diabetes Mellitus. HCG ( test) IA.rapi d Ql (U)Ordered By: Kat Sosa on 06-09-2023 HCG ( test) Ql (U) Negative [facility] Hematocrit Auto (Bld) [Volum e fraction]Ordered By: Kat Sosa on 06-09-2023 Hematocrit (Bld) [Volume fraction] 37.4 % 34.0-46.4 [facility] Hemoglobin [Mass/volume] in BloodOrdered By: Kat Sosa 06-09-2023 Hemoglobin (Bld) [Mass/Vol] 13.4 g/dL 11.8-15.4 [facility] Ketones Auto test strip (U) [Mass/Vol]Ordered By: Kat Sosa on 06-09-2023 Ketones (U) [Mass/Vol] Negative Negative [facility] Leukocytes [#/volume] correc nisha for nucleated erythrocytes in Blood by Automated counOrdered By: Kat Sosa on 06-09-2023 WBC corrected for nucl RBC Auto (Bld) [#/Vol] 7.3 10*3/uL 3.8-11.6 [facility] Lipase [Enzymatic activity/v olume] in Serum or PlasmaOrdered By: Kat Sosa on 06-09-2023 Lipase [Catalytic activity/Vol] 60.0 U/L 11.0-82.0 [facility] Lymphocytes Auto (Bld) [#/Vo l]Ordered By: Kat Sosa on 06-09-2023 Lymphocytes (Bld) [#/Vol] 4.3 10*3/uL 1.00-4.8 [facility] Lymphocytes/100 WBC Auto (Bl d)Ordered By: Kat Sosa on 06-09-2023 Lymphocytes/100 WBC (Bld) 58.0 % . [facility] MCH Auto (RBC) [Entitic mass ]Ordered By: Kat Sosa on 06-09-2023 MCH (RBC) [Entitic mass] 31.6 pg 24.7-34.3 [facility] MCHC Auto (RBC) [Mass/Vol]Or dered By: Kat Sosa on 06-09-2023 MCHC (RBC) [Mass/Vol] 35.8 g/dL 32.0-35.0 [facility] MCV Auto (RBC) [Entitic vol] Ordered By: Kat Sosa on 06-09-2023 MCV (RBC) [Entitic vol] 88.2 fL 80-100 [facility] Monocyte distribution width [Entitic volume] in Blood by AutomatedOrdered By: Kat Sosa on 06-09-2023 Monocyte distribution width Auto (Bld) [Entitic vol] 18.22 % 0.00-20.00 [facility] Monocytes Auto (Bld) [#/Vol] Ordered By: Kat Sosa on 06-09-2023 Monocytes (Bld) [#/Vol] 0.4 10*3/uL 0.0-0.8 [facility] Monocytes/100 WBC Auto (Bld) Ordered By: Kat Sosa on 06-09-2023 Monocytes/100 WBC (Bld) 5.2 % . [facility] Neutrophils Auto (Bld) [#/Vo l]Ordered By: Kat Sosa on 06-09-2023 Neutrophils (Bld) [#/Vol] 2.3 10*3/uL 1.8-7.7 [facility] Neutrophils/100 WBC Auto (Bl d)Ordered By: Kat Sosa on 06-09-2023 Neutrophils/100 WBC (Bld) 32.0 % . [facility] Nitrite Test strip Ql (U)Ord ered By: Kat Sosa on 06-09-2023 Nitrite Ql (U) Negative Negative [facility] No Panel InformationOrdered By: Kat Sosa on 06-09-2023 Estimated GFR (CKD-EPI) > 60.0 mL/Min [facility] Creatinine Clearance (Chem 87.63 [facility] Nucleated erythrocytes [Pres ence] in Blood by Automated countOrdered By: Kat Sosa on 06-09-2023 Nucleated RBC Auto Ql (Bld) 0.1 /100{WBC} 0-0.5 [facility] Platelet mean volume Auto (B ld) [Entitic vol]Ordered By: Kat Sosa on 06-09-2023 Platelet mean volume (Bld) [Entitic vol] 7.3 fL 6.3-10.7 [facility] Platelets Auto (Bld) [#/Vol] Ordered By: Kat Sosa on 06-09-2023 Platelets (Bld) [#/Vol] 333 10*3/uL 150-450 [facility] Potassium [Moles/volume] in Serum or PlasmaOrdered By: Kat Sosa on 06-09-2023 Potassium [Moles/Vol] 3.8 mmol/L 3.5-5.1 [facility] Protein Auto test strip (U) [Mass/Vol]Ordered By: Kat Sosa on 06-09-2023 Protein (U) [Mass/Vol] Negative Negative [facility] Protein [Mass/volume] in Ser um or PlasmaOrdered By: Kat Sosa on 06-09-2023 Protein [Mass/Vol] 6.4 g/dL 6.4-8.9 [facility] RBC Auto (Bld) [#/Vol]Ordere d By: Kat Sosa on 06-09-2023 RBC (Bld) [#/Vol] 4.24 10*6/uL 3.60-5.00 [facility] Serum or plasma albumin/glob ulin mass ratioOrdered By: Kat Sosa on 06-09-2023 Albumin/Globulin [Mass ratio] 2.0 {ratio} [facility] Serum or plasma anion gap de terminationOrdered By: Kat Sosa on 06-09-2023 Anion gap [Moles/Vol] 8.5 mmol/L 6.0-15.0 [facility] Serum or plasma non-glucuron idated bilirubin measurement (mass/volume)Ordered By: Kat Sosa on 06-09-2023 Bilirubin.indirect [Mass/Vol] 0.2 mg/dL [facility] Sodium [Moles/volume] in Ser um or PlasmaOrdered By: Kat Sosa on 06-09-2023 Sodium [Moles/Vol] 138 mmol/L 136-145 [facility] Specific gravity Auto test s trip (U) [Rel density]Ordered By: Kat Sosa on 06-09-2023 Specific gravity (U) [Rel density] 1.014 1.001-1.030 [facility] Urea nitrogen [Mass/volume] in Serum or PlasmaOrdered By: Kat Sosa on 06-09-2023 Urea nitrogen [Mass/Vol] 12 mg/dL 7-25 [facility] Urine clarity by refractomet ry automatedOrdered By: aKt Sosa on 06-09-2023 Clarity Refractometry automated (U) Clear Clear [facility] Urine glucose measurement by automated test strip (mass/volume)Ordered By: Kat Sosa on 06-09-2023 Glucose Auto test strip (U) [Mass/Vol] Normal mg/dL Normal [facility] Urine hemoglobin detection b y automated test stripOrdered By: Kat Sosa on 06-09-2023 Hemoglobin Auto test strip Ql (U) Negative Negative [facility] Urine leukocyte esterase det ection by automated test stripOrdered By: Kat Sosa on 06-09-2023 Leukocyte esterase Auto test strip Ql (U) Negative Negative [facility] Urobilinogen Auto test strip (U) [Mass/Vol]Ordered By: Kat Sosa on 06-09-2023 Urobilinogen (U) [Mass/Vol] Normal mg/dL Normal [facility] WBC Auto (Bld) [#/Vol]Ordere d By: Kat Sosa on 06-09-2023 WBC (Bld) [#/Vol] 7.3 10*3/uL 3.8-11.6 [facility] pH Auto test strip (U)Ordere d By: Katjo Sosa on 06-09-2023 pH (U) 8.0 [pH] 5.0-9.0 [facility] COVID CepheidOrdered By: Kathy Novoa on 05-06-2023 SARS-CoV-2 (COVID-19) Ab IA Ql Negative Negative [facility] Comment on above: This is a duplicate Cepheid Xpert Xpress CoV-2/Flu/RSV Plus RNA by RT-PCR result to be used for statistical tracking purpose only. SARS-CoV-2 (COVID-19) RNA KIRSTIN+probe Ql (Unsp spec) [facility] SARS-CoV-2 (COVID-19) RNA KIRSTIN+probe Ql (Unsp spec) [facility] Alanine aminotransferase [En zymatic activity/volume] in Serum or PlasmaOrdered By: iLsa Johns on 11-25-2022 ALT [Catalytic activity/Vol] 21 U/L 7-52 [facility] Albumin [Mass/volume] in Ser um or Plasma by Bromocresol green (BCG) dye binding methoOrdered By: Lisa Johns on 11-25-2022 Albumin BCG dye [Mass/Vol] 4.1 g/dL 3.5-5.7 [facility] Alkaline phosphatase [Enzyma tic activity/volume] in Serum or PlasmaOrdered By: Lisa Johns on 11-25-2022 ALP [Catalytic activity/Vol] 57 U/L 34-104 [facility] Aspartate aminotransferase [ Enzymatic activity/volume] in Serum or PlasmaOrdered By: Lisa Johns on 11-25-2022 AST [Catalytic activity/Vol] 22 U/L 13-39 [facility] Basophils Auto (Bld) [#/Vol] Ordered By: Lisa Johns on 11-25-2022 Basophils (Bld) [#/Vol] 0.0 10*3/uL 0.0-0.2 [facility] Basophils/100 WBC Auto (Bld) Ordered By: Lisa Johns on 11-25-2022 Basophils/100 WBC (Bld) 0.4 % . [facility] Bilirubin.total [Mass/volume ] in Serum or PlasmaOrdered By: Lisa Johns on 11-25-2022 Bilirubin [Mass/Vol] 0.4 mg/dL 0.3-1.0 [facility] C reactive protein [Mass/vol ume] in Serum or Plasma by High sensitivity methodOrdered By: Lisa Johns on 11-25-2022 CRP High sensitivity method [Mass/Vol] 3.1 mg/L 0.0-0.9 [facility] Comment on above: Cardiovascular Risk Classification (AHA/CDC)hsCRP [...] on 11-25-2022 Calcium [Mass/Vol] 8.8 mg/dL 8.6-10.3 [facility] Carbon dioxide, total [Moles /volume] in Serum or PlasmaOrdered By: Lisa Johns on 11-25-2022 CO2 [Moles/Vol] 18.9 mmol/L 21.0-31.0 [facility] Chloride [Moles/volume] in S dalia or PlasmaOrdered By: Lisa Johns on 11-25-2022 Chloride [Moles/Vol] 111 mmol/L 98-107 [facility] Creatinine [Mass/volume] in Serum or PlasmaOrdered By: Lisa Johns on 11-25-2022 Creatinine [Mass/Vol] 0.98 mg/dL 0.60-1.20 [facility] Eosinophils Auto (Bld) [#/Vo l]Ordered By: Lisa Johns on 11-25-2022 Eosinophils (Bld) [#/Vol] 0.1 10*3/uL 0.0-0.45 [facility] Eosinophils/100 WBC Auto (Bl d)Ordered By: Lisa Johns on 11-25-2022 Eosinophils/100 WBC (Bld) 3.2 % . [facility] Erythrocyte distribution wid th Auto (RBC) [Ratio]Ordered By: Lisa Johns on 11-25-2022 Erythrocyte distribution width (RBC) [Ratio] 12.5 % 11.9-15.3 [facility] Erythrocyte sedimentation ra te by Photometric methodOrdered By: Lisa Johns on 11-25-2022 ESR Photometric method (Bld) [Velocity] 1 mm/hr 0-19 [facility] Globulin Calc (S) [Mass/Vol] Ordered By: Lisa Johns on 11-25-2022 Globulin (S) [Mass/Vol] 2.0 g/dL [facility] Glucose [Mass/volume] in Ser um or PlasmaOrdered By: Lisa Johns on 11-25-2022 Glucose [Mass/Vol] 116 mg/dL 70-100 [facility] Comment on above: ADA recommended refe rence rangeRandom Glucose Reference Range is dependent on time and content of last meal. Glucose of more than 200 mg/dL in a nonstressed, ambulatory subject supports the diagnosis of Diabetes Mellitus. Hematocrit Auto (Bld) [Volum e fraction]Ordered By: Lisa Johns on 11-25-2022 Hematocrit (Bld) [Volume fraction] 38.1 % 34.0-46.4 [facility] Hemoglobin [Mass/volume] in BloodOrdered By: Lisa Johns on 11-25-2022 Hemoglobin (Bld) [Mass/Vol] 13.2 g/dL 11.8-15.4 [facility] Leukocytes [#/volume] correc nisha for nucleated erythrocytes in Blood by Automated counOrdered By: Lisa Johns on 11-25-2022 WBC corrected for nucl RBC Auto (Bld) [#/Vol] 4.4 10*3/uL 3.8-11.6 [facility] Lymphocytes Auto (Bld) [#/Vo l]Ordered By: Lisa Johns on 11-25-2022 Lymphocytes (Bld) [#/Vol] 2.4 10*3/uL 1.00-4.8 [facility] Lymphocytes/100 WBC Auto (Bl d)Ordered By: Lisa Johns on 11-25-2022 Lymphocytes/100 WBC (Bld) 53.9 % . [facility] MCH Auto (RBC) [Entitic mass ]Ordered By: Lisa Johns on 11-25-2022 MCH (RBC) [Entitic mass] 31.3 pg 24.7-34.3 [facility] MCHC Auto (RBC) [Mass/Vol]Or dered By: Lisa Johns on 11-25-2022 MCHC (RBC) [Mass/Vol] 34.8 g/dL 32.0-35.0 [facility] MCV Auto (RBC) [Entitic vol] Ordered By: Lisa Johns on 11-25-2022 MCV (RBC) [Entitic vol] 90.0 fL 80-100 [facility] Monocytes Auto (Bld) [#/Vol] Ordered By: Lisa Johns on 11-25-2022 Monocytes (Bld) [#/Vol] 0.3 10*3/uL 0.0-0.8 [facility] Monocytes/100 WBC Auto (Bld) Ordered By: Lisa Johns on 11-25-2022 Monocytes/100 WBC (Bld) 6.7 % . [facility] Neutrophils Auto (Bld) [#/Vo l]Ordered By: Lisa Johns on 11-25-2022 Neutrophils (Bld) [#/Vol] 1.6 10*3/uL 1.8-7.7 [facility] Neutrophils/100 WBC Auto (Bl d)Ordered By: Lisa Johns on 11-25-2022 Neutrophils/100 WBC (Bld) 35.8 % . [facility] No Panel InformationOrdered By: Lisa Johns on 11-25-2022 Estimated GFR (CKD-EPI) > 60.0 mL/Min [facility] Creatinine Clearance (Chem N/A [facility] Nucleated erythrocytes [Pres ence] in Blood by Automated countOrdered By: Lisa Johns on 11-25-2022 Nucleated RBC Auto Ql (Bld) 0.1 /100{WBC} 0-0.5 [facility] Platelet mean volume Auto (B ld) [Entitic vol]Ordered By: Lisa Johns on 11-25-2022 Platelet mean volume (Bld) [Entitic vol] 8.3 fL 6.3-10.7 [facility] Platelets Auto (Bld) [#/Vol] Ordered By: Lisa Johns on 11-25-2022 Platelets (Bld) [#/Vol] 242 10*3/uL 150-450 [facility] Potassium [Moles/volume] in Serum or PlasmaOrdered By: Lisa Johns on 11-25-2022 Potassium [Moles/Vol] 3.7 mmol/L 3.5-5.1 [facility] Protein [Mass/volume] in Ser um or PlasmaOrdered By: Lisa Johns on 11-25-2022 Protein [Mass/Vol] 6.1 g/dL 6.4-8.9 [facility] RBC Auto (Bld) [#/Vol]Ordere d By: Lisa Johns on 11-25-2022 RBC (Bld) [#/Vol] 4.23 10*6/uL 3.60-5.00 [facility] Serum or plasma albumin/glob ulin mass ratioOrdered By: Lisa Johns on 11-25-2022 Albumin/Globulin [Mass ratio] 2.1 {ratio} [facility] Serum or plasma anion gap de terminationOrdered By: Lisa Johns on 11-25-2022 Anion gap [Moles/Vol] 11.8 mmol/L 6.0-15.0 [facility] Serum or plasma free cefurox sylvester measurement (mass/volume)Ordered By: Lisa Johns on 11-25-2022 Cefuroxime free [Mass/Vol] Negative Negative [facility] Comment on above: Performed at: [address] [id number] Director: Lonnie Elise PhD, Phone: [phone] Serum or plasma rheumatoid f actor measurement (units/volume)Ordered By: Lisa Johns on 11-25-2022 Rheumatoid factor Qn [IU]/mL <14.0 [facility] Comment on above: Performed at: [address] [id number] Director: Lonnie Elise PhD, Phone: [phone] Sodium [Moles/volume] in Ser um or PlasmaOrdered By: Lisa Johns on 11-25-2022 Sodium [Moles/Vol] 138 mmol/L 136-145 [facility] Urea nitrogen [Mass/volume] in Serum or PlasmaOrdered By: Lisa Johns on 11-25-2022 Urea nitrogen [Mass/Vol] 15 mg/dL 7-25 [facility] WBC Auto (Bld) [#/Vol]Ordere d By: Lisa Johns on 11-25-2022 WBC (Bld) [#/Vol] 4.4 10*3/uL 3.8-11.6 [facility] Urinalysis - AUTOMATEDon Appearance (U) clear [employer] Other Bilirubin Ql (U) Negative [employer] Other Color (U) yellow [employer] Other Glucose Ql (U) Negative [employer] Other Hemoglobin Ql (U) trace [employer] Other Ketones Ql (U) Negative [employer] Other Leukocyte esterase Test strip Ql (U) Negative [employer] Other Nitrite Ql (U) Negative [employer] Other pH (U) 5.5 [pH] [employer] Other Protein Ql (U) Negative [employer] Other Specific gravity (U) [Rel density] 1.030 [employer] Other Urobilinogen (U) [Mass/Vol] 0.2 mg/dL [place] [employer] Other Urinalysis - AUTOMATED [facility] [employer] Other STR cardiac stress/regularon 07-18-2022 STR cardiac stress/regular [facility] [employer] Other STR cardiac stress/regular [facility] [employer] Other STR cardiac stress/regular [address] [place] [address] [employer] Other STR cardiac stress/regular [place], [place] [id number] [place] [address] [employer] Other STR cardiac stress/regular Cardiac Stress Test [facility] [employer] Other STR cardiac stress/regular [employer] [facility] [employer] Other STR cardiac stress/regular Patient: Karolina Smalls Ángel MR#: [id number] [place] [employer] Other STR cardiac stress/regular [address] [facility] [employer] Other STR cardiac stress/regular : 1985 Acct:[id number] [employer] Other STR cardiac stress/regular Age/Sex: 36 / F ADM Date: 07/17/22 [employer] Other STR cardiac stress/regular Loc: Room: Type: [facility] [employer] Other STR cardiac stress/regular Attending Dr: Lisa Johns DNP [employer] Other STR cardiac stress/regular Copies to: [employer] Other STR cardiac stress/regular Ordering Provider: Lisa Johns DNP [employer] Other STR cardiac stress/regular Date of Service: 07/17/22 [employer] Other STR cardiac stress/regular STR/STR cardiac stress/regular: Nonspecific ST-T wave [employer] Other STR cardiac stress/regular electrocardiographic changes [employer] Other STR cardiac stress/regular ORDERING: Lisa Johns DNP [employer] Other STR cardiac stress/regular SUPERVISING: Seun Boo MD [employer] Other STR cardiac stress/regular CLINICAL INFORMATION: Chest pain. [employer] Other STR cardiac stress/regular The patient underwent routine treadmill testing according to [employer] protocol and accomplished total [employer] Other STR cardiac stress/regular exercise duration of 9 minutes and 51 seconds. The resting heart rate was 77 beats per minute and [employer] Other STR cardiac stress/regular peak heart rate 155 beats per minute, which is 84% of predicted heart rate for age. Workload was [employer] Other STR cardiac stress/regular 11.5 METS. Resting blood pressure was 136/88 and peak blood pressure 168/76. Study was terminated [employer] Other STR cardiac stress/regular for fatigue. The patient arrived with baseline complaints of retrosternal left arm and armpit pain. [employer] Other STR cardiac stress/regular It was unchanged with exercise. It was present on arrival and at departure. There were no changes [employer] Other STR cardiac stress/regular in symptoms and no findings to suggest myocardial ischemia. [employer] Other STR cardiac stress/regular SUMMARY: [employer] Other STR cardiac stress/regular 1. Resting EKG demonstrates normal sinus rhythm, normal EKG. [employer] Other STR cardiac stress/regular 2. No new anginal symptomatology with exertion. [employer] Other STR cardiac stress/regular 3. No ischemic ST-T wave changes were noted. [employer] Other STR cardiac stress/regular 4. There were no arrhythmias. [employer] Other STR cardiac stress/regular 5. The patient had a satisfactory work capacity and heart rate response. [employer] Other STR cardiac stress/regular 6. This is a normal graded exercise test. The patient demonstrates no convincing anginal [employer] Other STR cardiac stress/regular symptomology, no ischemic ST-T wave changes, and no arrhythmias with exercise. [employer] Other STR cardiac stress/regular Transcribed By: PETTY 07/18/22 1607 [employer] Other STR cardiac stress/regular Dictated By: Marcel Boo MD 07/18/22 145 [employer] Other STR cardiac stress/regular Signed By: [employer] Other Automated erythrocytes count in urine sediment (number/area)Ordered By: Lisa Johns on 07-07-2022 RBC Auto (Urine sed) [#/Area] 10-19 [HPF] 0-4 [facility] Automated leukocytes count i n urine sediment (number/area)Ordered By: Lisa Johns on 07-07-2022 WBC Auto (Urine sed) [#/Area] 20-49 [HPF] 0-4 [facility] Bilirubin Test strip Ql (U)O rdered By: Lisa Johns on 07-07-2022 Bilirubin Ql (U) Negative Negative [facility] Color Auto (U)Ordered By: Tad Johns on 07-07-2022 Color (U) Yellow Yellow [facility] Dipstick & Microscopicon Dipstick & Microscopic No rt [employer] Other Ketones Auto test strip (U) [Mass/Vol]Ordered By: Lisa Johns on 07-07-2022 Ketones (U) [Mass/Vol] Negative Negative [facility] Laboratory - UrinalysisOrder ed By: Lisa Johns on 07-07-2022 Hyaline casts LM Ql (Urine sed) 0-8 [LPF] 0-8 [facility] Nitrite Test strip Ql (U)Ord ered By: Lisa Johns on 07-07-2022 Nitrite Ql (U) Negative Negative [facility] Protein Auto test strip (U) [Mass/Vol]Ordered By: Lisa Johns on 07-07-2022 Protein (U) [Mass/Vol] Negative Negative [facility] Specific gravity Auto test s trip (U) [Rel density]Ordered By: Lisa Johns on 07-07-2022 Specific gravity (U) [Rel density] 1.011 1.001-1.030 [facility] Squamous epithelial cells de tection in urine sediment by light microscopyOrdered By: Lisa Johns on 07-07-2022 Epithelial cells.squamous LM Ql (Urine sed) 0-1 [HPF] 0-2 [facility] Urine Cultureon 07-07-2022 Urine Culture >100,000 [employer] Other Urine Culture <16 Susceptible [employer] Other Urine Culture <8/4 Susceptible [employer] Other Urine Culture <4 Susceptible [employer] Other Urine Culture <2 Susceptible [employer] Other Urine Culture <1 Susceptible [employer] Other Urine Culture <0.25 Susceptible [employer] Other Urine Culture <0.5 Susceptible [employer] Other Urine Culture <32 Susceptible [employer] Other Urine Culture <0.5/9.5 Susceptible [employer] Other Urine bacteria detection by automated methodOrdered By: Lisa Johns on 07-07-2022 Bacteria Auto Ql (U) 4+ None Seen [facility] Urine clarity by refractomet ry automatedOrdered By: Lisa Johns on 07-07-2022 Clarity Refractometry automated (U) Clear Clear [facility] Urine culture routineOrdered By: Lisa Johns on 07-07-2022 Bacteria identified Cx Nom (U) Klebsiella pneumoniae [facility] Urine glucose measurement by automated test strip (mass/volume)Ordered By: Lisa Johns on 07-07-2022 Glucose Auto test strip (U) [Mass/Vol] Normal mg/dL Normal [facility] Urine hemoglobin detection b y automated test stripOrdered By: Lisa Johns on 07-07-2022 Hemoglobin Auto test strip Ql (U) 2+ Negative [facility] Urine leukocyte esterase det ection by automated test stripOrdered By: Lisa Johns on 07-07-2022 Leukocyte esterase Auto test strip Ql (U) 3+ Negative [facility] Urobilinogen Auto test strip (U) [Mass/Vol]Ordered By: Lisa Johns on 07-07-2022 Urobilinogen (U) [Mass/Vol] Normal mg/dL Normal [facility] pH Auto test strip (U)Ordere d By: Lisa Johns on 07-07-2022 pH (U) 5.5 [pH] 5.0-9.0 [facility] Albumin [Mass/volume] in Bod y fluidOrdered By: Shahid Ritter on 06-26-2022 Albumin (Body fld) [Mass/Vol] 4.2 g/dL 3.2-5.5 [facility] Alkaline phosphatase [Enzyma tic activity/volume] in Serum or PlasmaOrdered By: Shahid Ritter on 06-26-2022 ALP [Catalytic activity/Vol] 60 U/L 32-92 [facility] Aspartate aminotransferase [ Enzymatic activity/volume] in Serum or PlasmaOrdered By: Shahid Ritter on 06-26-2022 AST [Catalytic activity/Vol] 37 U/L 10-42 [facility] Basophils Auto (Bld) [#/Vol] Ordered By: Shahid Ritter on 06-26-2022 Basophils (Bld) [#/Vol] 0.1 10*3/uL 0.0-0.2 [facility] Basophils/100 WBC Auto (Bld) Ordered By: Shahid Ritter on 06-26-2022 Basophils/100 WBC (Bld) 0.9 % . [facility] Bilirubin.total [Mass/volume ] in Serum or PlasmaOrdered By: Shahid Ritter on 06-26-2022 Bilirubin [Mass/Vol] 0.9 mg/dL 0.3-1.2 [facility] Calcium [Mass/volume] in Ser um or PlasmaOrdered By: Shahid Ritter on 06-26-2022 Calcium [Mass/Vol] 9.6 mg/dL 8.2-10.2 [facility] Carbon dioxide, total [Moles /volume] in Serum or PlasmaOrdered By: Shahid Ritter on 06-26-2022 CO2 [Moles/Vol] 25.2 mmol/L 22.0-30.0 [facility] Chloride [Moles/volume] in S dalia or PlasmaOrdered By: Shahid Ritter on 06-26-2022 Chloride [Moles/Vol] 103 mmol/L 95-114 [facility] Creatine kinase [Enzymatic a ctivity/volume] in Serum or PlasmaOrdered By: Shahid Ritter on 06-26-2022 CK [Catalytic activity/Vol] 134 U/L 22-269 [facility] Creatine kinase.MB [Mass/vol ume] in Serum or PlasmaOrdered By: Shahid Ritter on 06-26-2022 CK.MB [Mass/Vol] 1.4 ng/mL 0.6-6.3 [facility] Creatinine and Glomerular fi ltration rate.predicted panel (S/P/Bld)Ordered By: Shahid Ritter on 06-26-2022 Creatinine [Mass/Vol] 0.84 mg/dL 0.44-1.03 [facility] Eosinophils Auto (Bld) [#/Vo l]Ordered By: Shahid Ritter on 06-26-2022 Eosinophils (Bld) [#/Vol] 0.2 10*3/uL 0.0-0.45 [facility] Eosinophils/100 WBC Auto (Bl d)Ordered By: Shahid Ritter on 06-26-2022 Eosinophils/100 WBC (Bld) 2.5 % . [facility] Erythrocyte distribution wid th Auto (RBC) [Ratio]Ordered By: Shahid Ritter on 06-26-2022 Erythrocyte distribution width (RBC) [Ratio] 12.6 % 11.9-15.3 [facility] Estimated glomerular filtrat ion rate (GFR) non- AmericanOrdered By: Shahid Ritter on 06-26-2022 GFR/1.73 sq M.predicted among non-blacks MDRD (S/P/Bld) [Vol rate/Area] > 60 mL/Min [facility] Globulin Calc (S) [Mass/Vol] Ordered By: Shahid Ritter on 06-26-2022 Globulin (S) [Mass/Vol] 2.6 g/dL [facility] Glucose [Mass/volume] in Ser um or PlasmaOrdered By: Shahid Ritter on 06-26-2022 Glucose [Mass/Vol] 105 mg/dL 70-100 [facility] Comment on above: ADA recommended refe rence rangeRandom Glucose Reference Range is dependent on time and content of last meal. Glucose of more than 200 mg/dL in a nonstressed, ambulatory subject supports the diagnosis of Diabetes Mellitus. Hematocrit Auto (Bld) [Volum e fraction]Ordered By: Shahid Ritter on 06-26-2022 Hematocrit (Bld) [Volume fraction] 40.4 % 34.0-46.4 [facility] Hemoglobin [Mass/volume] in BloodOrdered By: Shahid Ritter on 06-26-2022 Hemoglobin (Bld) [Mass/Vol] 13.9 g/dL 11.8-15.4 [facility] Leukocytes [#/volume] correc nisha for nucleated erythrocytes in Blood by Automated counOrdered By: Shahid Ritter on 06-26-2022 WBC corrected for nucl RBC Auto (Bld) [#/Vol] 5.9 10*3/uL 3.8-11.6 [facility] Lymphocytes Auto (Bld) [#/Vo l]Ordered By: Shahid Ritter on 06-26-2022 Lymphocytes (Bld) [#/Vol] 3.1 10*3/uL 1.00-4.8 [facility] Lymphocytes/100 WBC Auto (Bl d)Ordered By: Shahid Ritter on 06-26-2022 Lymphocytes/100 WBC (Bld) 51.7 % . [facility] MCH Auto (RBC) [Entitic mass ]Ordered By: Shahid Ritter on 06-26-2022 MCH (RBC) [Entitic mass] 30.9 pg 24.7-34.3 [facility] MCHC Auto (RBC) [Mass/Vol]Or dered By: Shahid Ritter on 06-26-2022 MCHC (RBC) [Mass/Vol] 34.3 g/dL 32.0-35.0 [facility] MCV Auto (RBC) [Entitic vol] Ordered By: Shahid Ritter on 06-26-2022 MCV (RBC) [Entitic vol] 90.0 fL 80-100 [facility] Monocyte distribution width [Entitic volume] in Blood by AutomatedOrdered By: Shahid Ritter on 06-26-2022 Monocyte distribution width Auto (Bld) [Entitic vol] 16.62 % 0.00-20.00 [facility] Monocytes Auto (Bld) [#/Vol] Ordered By: Shahid Ritter on 06-26-2022 Monocytes (Bld) [#/Vol] 0.4 10*3/uL 0.0-0.8 [facility] Monocytes/100 WBC Auto (Bld) Ordered By: Shahid Ritter on 06-26-2022 Monocytes/100 WBC (Bld) 6.9 % . [facility] Neutrophils Auto (Bld) [#/Vo l]Ordered By: Shahid Ritter on 06-26-2022 Neutrophils (Bld) [#/Vol] 2.3 10*3/uL 1.8-7.7 [facility] Neutrophils/100 WBC Auto (Bl d)Ordered By: Shahid Ritter on 06-26-2022 Neutrophils/100 WBC (Bld) 38.0 % . [facility] No Panel InformationOrdered By: Shahid Ritter on 06-26-2022 Estimated GFR () > 60 mL/Min [facility] Comment on above: GFR estimated refere nce range: According to KDOQI guidelines, <60 ml/min/1.73m2 is sufficient to diagnose a patient with chronic kidney disease. Pharmacy Creatinine Clearance (Chem 88.58 [facility] Nucleated erythrocytes [Pres ence] in Blood by Automated countOrdered By: Shahid Ritter on 06-26-2022 Nucleated RBC Auto Ql (Bld) 0.2 /100{WBC} 0-0.5 [facility] Platelet mean volume Auto (B ld) [Entitic vol]Ordered By: Shahid Ritter on 06-26-2022 Platelet mean volume (Bld) [Entitic vol] 7.7 fL 6.3-10.7 [facility] Platelets Auto (Bld) [#/Vol] Ordered By: Shahid Ritter on 06-26-2022 Platelets (Bld) [#/Vol] 296 10*3/uL 150-450 [facility] Potassium [Moles/volume] in Serum or PlasmaOrdered By: Shahid Ritter on 06-26-2022 Potassium [Moles/Vol] 3.6 mmol/L 3.5-5.1 [facility] Protein [Mass/volume] in Ser um or PlasmaOrdered By: Shahid Ritter on 06-26-2022 Protein [Mass/Vol] 6.8 g/dL 6.1-7.9 [facility] RBC Auto (Bld) [#/Vol]Ordere d By: Shahid Ritter on 06-26-2022 RBC (Bld) [#/Vol] 4.49 10*6/uL 3.60-5.00 [facility] Serum or plasma alanine reyes otransferase measurement without P-5'-P (enzymatic activiOrdered By: Shahid Ritetr on 06-26-2022 ALT No additional P-5'-P [Catalytic activity/Vol] 48 U/L 10-60 [facility] Serum or plasma albumin/glob ulin mass ratioOrdered By: Shahid Ritter on 06-26-2022 Albumin/Globulin [Mass ratio] 1.6 {ratio} [facility] Serum or plasma anion gap de terminationOrdered By: Shahid Ritter on 06-26-2022 Anion gap [Moles/Vol] 12.4 mmol/L 6.0-15.0 [facility] Serum or plasma creatine kin ase MB (CKMB)/total creatine kinase (CK) ratio by calculaOrdered By: Shahid Ritter on 06-26-2022 CK.MB Calc [Catalytic fraction] 1.0 % 0.00-2.50 [facility] Sodium [Moles/volume] in Ser um or PlasmaOrdered By: Shahid Ritter on 06-26-2022 Sodium [Moles/Vol] 137 mmol/L 136-146 [facility] TROPONIN, HIGH SENSITIVITYon 06-26-2022 HSTROP 4.9 pg/mL Normal 4.0-51.3 [facility] Comment on above: Result Comment: CUT- OFF POINTS HAVE BEEN ESTABLISHED BASED ON THE FOURTH UNIVERSAL DEFINITIONS OF MYOCARDIAL INFARCTION. THE UPPER REFERENCE LIMIT (URL) OF TROPONIN, DEFINED THE 99TH PERCENTILE OF cTnI DISTRIBUTION IN A REFERENCE POPULATION, HAS BEEN CONFIRMED THE DECISION THRESHOLD FOR ND DIAGNOSIS. Performed By: #### [facility] #### [facility] [address] [address] [address] Madiha Goins Troponin I.cardiac [Mass/vol ume] in Serum or Plasma by High sensitivity methodOrdered By: Shahid Ritter on 06-26-2022 Troponin I.cardiac High sensitivity method [Mass/Vol] < 3 pg/mL 0-15 [facility] Urea nitrogen [Mass/volume] in Serum or PlasmaOrdered By: Shahid Ritter on 06-26-2022 Urea nitrogen [Mass/Vol] 9 mg/dL 9- [facility] WBC Auto (Bld) [#/Vol]Ordere d By: Shahid Ritter on 06-26-2022 WBC (Bld) [#/Vol] 5.9 10*3/uL 3.8-11.6 [facility] MM diagnostic mammo BI w/CAD on 06-18-2022 MM diagnostic mammo BI w/CAD [facility] [employer] Other MM diagnostic mammo BI w/CAD [facility] [employer] Other MM diagnostic mammo BI w/CAD [address] [facility] [employer] Other MM diagnostic mammo BI w/[place] [address] [employer] Other MM diagnostic mammo BI w/CAD Ultrasound Report [employer] Other MM diagnostic mammo BI w/CAD Signed [employer] Other MM diagnostic mammo BI w/CAD Patient: Karolina Smalls MR#: [id number] [employer] Other MM diagnostic mammo BI w/CAD 37 [employer] Other MM diagnostic mammo BI w/CAD : 1985 Acct:[id number] [employer] Other MM diagnostic mammo BI w/CAD Age/Sex: 36 / F ADM Date: 06/18/22 [employer] Other MM diagnostic mammo BI w/CAD Loc: [place] Room: Type: [facility] [employer] Other MM diagnostic mammo BI w/CAD Attending Dr: Lisa Johns DNP [employer] Other MM diagnostic mammo BI w/CAD Ordering Provider: Lisa Johns DNP [employer] Other MM diagnostic mammo BI w/CAD Date of Service: 06/18/22 [employer] Other MM diagnostic mammo BI w/CAD US/US breast LT limited: Breast pain, left [employer] Other MM diagnostic mammo BI w/CAD ([id number]) MM/MM diagnostic mammo BI w/CAD: Breast pain, left [employer] Other MM diagnostic mammo BI w/CAD Copies to: Lisa Johns DNP [employer] Other MM diagnostic mammo BI w/CAD Bilateral Diagnostic Full Field digital mammogram with 3-D imaging. [employer] Other MM diagnostic mammo BI w/CAD Full field digital CC and MLO imaging performed. CAD utilized. [employer] Other MM diagnostic mammo BI w/CAD COMPARISON: None [employer] Other MM diagnostic mammo BI w/CAD HISTORY:Left breast pain superiorly. [employer] Other MM diagnostic mammo BI w/CAD FINDINGS: Scattered fibroglandular densities of the breast parenchyma identified. No developing [employer] Other MM diagnostic mammo BI w/CAD architectural distortion, developing focal breast asymmetry or developing malignant calcifications [employer] Other MM diagnostic mammo BI w/CAD identified. Benign calcification identified. [employer] Other MM diagnostic mammo BI w/CAD Targeted left breast ultrasound performed. The mildly complex anechoic cyst with thin septation and [employer] Other MM diagnostic mammo BI w/CAD measures 7 x 2 x 4 mm. This is at the 1:00 position 2 cm from the nipple. [employer] Other MM diagnostic mammo BI w/CAD US/US breast LT limited [employer] Other MM diagnostic mammo BI w/CAD IMPRESSION:No mammographic evidence of malignancy. Mildly complex cystic nodule left breast. [employer] Other MM diagnostic mammo BI w/CAD Targeted left breast ultrasound in 6 months recommended. [employer] Other MM diagnostic mammo BI w/CAD RESULT CODE: 3 [employer] Other MM diagnostic mammo BI w/CAD Probably Benign Finding Short Term Follow-Up [employer] Other MM diagnostic mammo BI w/CAD DENSITY CODE: 2 (approximately 25-50% glandular) [employer] Other MM diagnostic mammo BI w/CAD FOLLOW UP: 6M [employer] Other MM diagnostic mammo BI w/CAD THE FALSE-NEGATIVE RATE OF MAMMOGRAPHY IS APPROXIMATELY 10%. [employer] Other MM diagnostic mammo BI w/CAD IMAGING OF A PALPABLE ABNORMALITY MUST BE BASED ON CLINICAL GROUNDS. [employer] Other MM diagnostic mammo BI w/CAD PATIENT WAS ENTERED INTO A REMINDER SYSTEM WITH A TARGET DUE DATE FOR THE NEXT MAMMOGRAM. [employer] Other MM diagnostic mammo BI w/CAD Impression dictated by: Ming Au M.D.06/18/2022 8:47 AM [employer] Other MM diagnostic mammo BI w/CAD Dictation Location: [facility] [employer] Other MM diagnostic mammo BI w/CAD Tech: Cassandrachloe Melton; Josefa Dianna [employer] Other mm diagnostic mammo BI w/CAD Transcribed By: PWS 06/18/22 [facility] [employer] Other MM diagnostic mammo BI w/CAD Dictated By: Ming Au DO 06/18/22 [facility] [employer] Other mm diagnostic mammo BI w/CAD Signed By: [employer] Other mm diagnostic mammo BI w/CAD 06/18/22 [facility] [employer] Other COVID + FLU Quick Testingon 04-28-2022 SARS-CoV-2 (COVID-19) RNA KIRSTIN+probe Ql (Unsp spec) Negative [employer] Other COVID + FLU Quick Testing Negative [employer] Other Quick Strepon 04-28-2022 S. pyogenes Org specific cx Ql (Throat) Negative [employer] Other Quick Strep [employer] Other Basophils Auto (Bld) [#/Vol] Ordered By: Lisa Johns on 04-23-2022 Basophils (Bld) [#/Vol] 0.0 10*3/uL 0.0-0.2 [facility] Basophils/100 WBC Auto (Bld) Ordered By: Lisa Johns on 04-23-2022 Basophils/100 WBC (Bld) 0.3 % . [facility] Body fluid albumin measureme nt (mass/volume)Ordered By: Brandon Wing on 04-23-2022 Albumin (Body fld) [Mass/Vol] 4.3 g/dL 3.2-5.5 [facility] Cholesterol [Mass/volume] in Serum or PlasmaOrdered By: Brandon Wing on 04-23-2022 Cholesterol [Mass/Vol] 190 mg/dL 140-200 [facility] Comment on above: Chol less than 200 m g/dl low riskChol 201-239 mg/dl borderline riskChol 240 mg/dl and greater high risk Cholesterol in LDL Calc [Mas s/Vol]Ordered By: Brandon Wing on 04-23-2022 Cholesterol in LDL [Mass/Vol] 122 mg/dL 0-100 [facility] Comment on above: LDL ATP III CLASSIFI CATIONLDL less than 100 mg/dL OptimalLDL 100-129 mg/dL Near or above optimalLDL 130-159 mg/dL Borderline highLDL 160-189 mg/dL HighLDL greater than 189 mg/dL Very high Cholesterol in VLDL Calc [Ma ss/Vol]Ordered By: Brandon Wing on 04-23-2022 Cholesterol in VLDL [Mass/Vol] 18 mg/dL [facility] Creatinine and Glomerular fi ltration rate.predicted panel (S/P/Bld)Ordered By: Brandon Wing on 04-23-2022 Creatinine [Mass/Vol] 0.89 mg/dL 0.44-1.03 [facility] Eosinophils Auto (Bld) [#/Vo l]Ordered By: Lisa Johns on 04-23-2022 Eosinophils (Bld) [#/Vol] 0.1 10*3/uL 0.0-0.45 [facility] Eosinophils/100 WBC Auto (Bl d)Ordered By: Lisa Johns on 04-23-2022 Eosinophils/100 WBC (Bld) 1.8 % . [facility] Erythrocyte distribution wid th Auto (RBC) [Ratio]Ordered By: Lisa Johns on 04-23-2022 Erythrocyte distribution width (RBC) [Ratio] 11.6 % 11.9-15.3 [facility] Estimated glomerular filtrat ion rate (GFR) non- AmericanOrdered By: Brandon Wing on 04-23-2022 GFR/1.73 sq M.predicted among non-blacks MDRD (S/P/Bld) [Vol rate/Area] > 60 mL/Min [facility] Globulin Calc (S) [Mass/Vol] Ordered By: Brandon Wing on 04-23-2022 Globulin (S) [Mass/Vol] 2.0 g/dL [facility] Hematocrit Auto (Bld) [Volum e fraction]Ordered By: Lisa Johns on 04-23-2022 Hematocrit (Bld) [Volume fraction] 40.6 % 34.0-46.4 [facility] Hemoglobin [Mass/volume] in BloodOrdered By: Lisa Johns on 04-23-2022 Hemoglobin (Bld) [Mass/Vol] 13.8 g/dL 11.8-15.4 [facility] Leukocytes [#/volume] correc nisha for nucleated erythrocytes in Blood by Automated counOrdered By: Lisa Johns on 04-23-2022 WBC corrected for nucl RBC Auto (Bld) [#/Vol] 5.1 10*3/uL 3.8-11.6 [facility] Lymphocytes Auto (Bld) [#/Vo l]Ordered By: Lisa Johns on 04-23-2022 Lymphocytes (Bld) [#/Vol] 2.6 10*3/uL 1.00-4.8 [facility] Lymphocytes/100 WBC Auto (Bl d)Ordered By: Lisa Johns on 04-23-2022 Lymphocytes/100 WBC (Bld) 50.5 % . [facility] MCH Auto (RBC) [Entitic mass ]Ordered By: Lisa Johns on 04-23-2022 MCH (RBC) [Entitic mass] 30.9 pg 24.7-34.3 [facility] MCHC Auto (RBC) [Mass/Vol]Or dered By: Lisa Johns on 04-23-2022 MCHC (RBC) [Mass/Vol] 34.1 g/dL 32.0-35.0 [facility] MCV Auto (RBC) [Entitic vol] Ordered By: Lisa Johns on 04-23-2022 MCV (RBC) [Entitic vol] 90.7 fL 80-100 [facility] Monocytes Auto (Bld) [#/Vol] Ordered By: Lisa Johns on 04-23-2022 Monocytes (Bld) [#/Vol] 0.3 10*3/uL 0.0-0.8 [facility] Monocytes/100 WBC Auto (Bld) Ordered By: Lisa Johns on 04-23-2022 Monocytes/100 WBC (Bld) 6.0 % . [facility] Neutrophils Auto (Bld) [#/Vo l]Ordered By: Lisa Johns on 04-23-2022 Neutrophils (Bld) [#/Vol] 2.1 10*3/uL 1.8-7.7 [facility] Neutrophils/100 WBC Auto (Bl d)Ordered By: Lisa Johns on 04-23-2022 Neutrophils/100 WBC (Bld) 41.4 % . [facility] No Panel InformationOrdered By: Brandon Wing on 04-23-2022 Estimated GFR () > 60 mL/Min [facility] Comment on above: GFR estimated refere nce range: According to KDOQI guidelines, <60 ml/min/1.73m2 is sufficient to diagnose a patient with chronic kidney disease. Pharmacy Creatinine Clearance (Chem N/A [facility] Nucleated erythrocytes [Pres ence] in Blood by Automated countOrdered By: Lisa Johns on 04-23-2022 Nucleated RBC Auto Ql (Bld) 0.2 /100{WBC} 0-0.5 [facility] Platelet mean volume Auto (B ld) [Entitic vol]Ordered By: Lisa Johns on 04-23-2022 Platelet mean volume (Bld) [Entitic vol] 8.6 fL 6.3-10.7 [facility] Platelets Auto (Bld) [#/Vol] Ordered By: Lisa Johns on 04-23-2022 Platelets (Bld) [#/Vol] 268 10*3/uL 150-450 [facility] Protein [Mass/volume] in Ser um or PlasmaOrdered By: Brandon Wing on 04-23-2022 Protein [Mass/Vol] 6.3 g/dL 6.1-7.9 [facility] RBC Auto (Bld) [#/Vol]Ordere d By: Lisa Hudsondaniel on 04-23-2022 RBC (Bld) [#/Vol] 4.48 10*6/uL 3.60-5.00 [facility] Serum or plasma alanine reyes otransferase measurement without P-5'-P (enzymatic activiOrdered By: Brandon Wing on 04-23-2022 ALT No additional P-5'-P [Catalytic activity/Vol] 27 U/L 10-60 [facility] Serum or plasma albumin/glob ulin mass ratioOrdered By: Brandon Wing on 04-23-2022 Albumin/Globulin [Mass ratio] 2.2 {ratio} [facility] Serum or plasma alkaline heather sphatase measurement (enzymatic activity/volume)Ordered By: Brandon Wing on 04-23-2022 ALP [Catalytic activity/Vol] 44 U/L 32-92 [facility] Serum or plasma anion gap de terminationOrdered By: Brandon Wing on 04-23-2022 Anion gap [Moles/Vol] 10.4 mmol/L 6.0-15.0 [facility] Serum or plasma aspartate am inotransferase measurement (enzymatic activity/volume)Ordered By: Brandon Wing on 04-23-2022 AST [Catalytic activity/Vol] 28 U/L 10-42 [facility] Serum or plasma calcium juan urement (mass/volume)Ordered By: Brandon Wing on 04-23-2022 Calcium [Mass/Vol] 9.1 mg/dL 8.2-10.2 [facility] Serum or plasma chloride patricia surement (moles/volume)Ordered By: Brandon Wing on 04-23-2022 Chloride [Moles/Vol] 107 mmol/L 95-114 [facility] Serum or plasma glucose juan urement (mass/volume)Ordered By: Brandon Wing on 04-23-2022 Glucose [Mass/Vol] 80 mg/dL 70-100 [facility] Comment on above: ADA recommended refe rence rangeRandom Glucose Reference Range is dependent on time and content of last meal. Glucose of more than 200 mg/dL in a nonstressed, ambulatory subject supports the diagnosis of Diabetes Mellitus. Serum or plasma high density lipoprotein (HDL) cholesterol measurementOrdered By: Brandon Wing on 04-23-2022 Cholesterol in HDL [Mass/Vol] 50 mg/dL 35-85 [facility] Comment on above: HDL CHOL ATP-III CLA SSIFICATION Cardiovascular RiskHDL > or equal to 60 mg/dL LOWHDL < 40 mg/dL HIGH Serum or plasma potassium me asurement (moles/volume)Ordered By: Brandon Wing on 04-23-2022 Potassium [Moles/Vol] 4.0 mmol/L 3.5-5.1 [facility] Serum or plasma sodium measu rement (moles/volume)Ordered By: Brandon Wing on 04-23-2022 Sodium [Moles/Vol] 135 mmol/L 136-146 [facility] Serum or plasma total biliru bin measurement (mass/volume)Ordered By: Brandon Wing on 04-23-2022 Bilirubin [Mass/Vol] 0.8 mg/dL 0.3-1.2 [facility] Serum or plasma total carbon dioxide measurement (moles/volume)Ordered By: Brandon Wing on 04-23-2022 CO2 [Moles/Vol] 21.6 mmol/L 22.0-30.0 [facility] Serum or plasma total choles terol/high density lipoprotein (HDL) cholesterol mass ratOrdered By: Brandon Wing on 04-23-2022 Cholesterol.total/Chol esterol in HDL [Mass ratio] 3.8 {ratio} <5.0 [facility] Serum or plasma urea nitroge n measurement (mass/volume)Ordered By: Brandon Wing on 04-23-2022 Urea nitrogen [Mass/Vol] 8 mg/dL 9-23 [facility] TSH DL <= 0.005 mIU/L QnOrde red By: Lisa Johns on 04-23-2022 TSH Qn 1.08 m[IU]/L 0.45-5.33 [facility] Triglyceride [Mass/volume] i n Serum or PlasmaOrdered By: Brandon Wing on 04-23-2022 Triglyceride [Mass/Vol] 91 mg/dL 35-149 [facility] Comment on above: TRIG ATP III CLASSIF ICATIONTRIG less than 150 mg/dL NormalTRIG 150-199 mg/dL Borderline highTRIG 200-500 mg/dL High TRIG greater than 500 mg/dL Very highStandard traceable to the Center for Disease Conrtrol and Prevention (CDC) test method. WBC Auto (Bld) [#/Vol]Ordere d By: Lisa Johns on 04-23-2022 WBC (Bld) [#/Vol] 5.1 10*3/uL 3.8-11.6 [facility] XR lumbar spine min 4V*on XR lumbar spine min 4V* [facility] [employer] Other XR lumbar spine min 4V* [facility] [place] [facility] [place] [employer] Other XR lumbar spine min 4V* [address] [place] [address] [employer] Other XR lumbar spine min 4V* [place] [address] [employer] Other XR lumbar spine min 4V* XRay Report [employer] Other XR lumbar spine min 4V* Signed [employer] Other XR lumbar spine min 4V* Patient: Karolina Smalls MR#: [id number] [employer] Other XR lumbar spine min 4V* 37 [employer] Other XR lumbar spine min 4V* : 1985 Acct:[id number] [employer] Other XR lumbar spine min 4V* Age/Sex: 36 / F ADM Date: 04/23/22 [employer] Other XR lumbar spine min 4V* Loc: XDS Room: Type: [facility] [employer] Other XR lumbar spine min 4V* Attending Dr: Lisa Johns [facility] [employer] Other XR lumbar spine min 4V* Copies to: Lisa Johns DNP [employer] Other XR lumbar spine min 4V* Ordering Provider: Lisa Johns DNP [employer] Other XR lumbar spine min 4V* Date of Service: 04/23/22 [employer] Other XR lumbar spine min 4V* XR/XR lumbar spine min 4V*: Lumbar degenerative disc disease [employer] Other XR lumbar spine min 4V* LUMBAR SPINE - 6 views: [employer] Other XR lumbar spine min 4V* CLINICAL HISTORY: Low back pain for several days. No specific injury. [employer] Other XR lumbar spine min 4V* COMPARISON: 11/30/2017 [employer] Other XR lumbar spine min 4V* Recumbent AP, lateral, both oblique and AP and lateral coned-down views of the lumbosacral junction [employer] Other XR lumbar spine min 4V* were obtained. Levoscoliotic curvature is again noted. There is no evidence of fracture. Alignment [employer] Other XR lumbar spine min 4V* is maintained on the lateral view. The disc spaces are normal in height. There is minimal endplate [employer] Other XR lumbar spine min 4V* spurring. There is facet disease, greater distally. No pars defect is identified. The sacroiliac [employer] Other XR lumbar spine min 4V* joints are maintained. There are no paraspinal soft tissue abnormalities. [employer] Other XR lumbar spine min 4V* XR/XR lumbar spine min 4V* [employer] Other XR lumbar spine min 4V* IMPRESSION: [employer] Other XR lumbar spine min 4V* SCOLIOSIS AND MILD DEGENERATIVE CHANGES [employer] Other XR lumbar spine min 4V* Impression dictated by: Zandra Barksdale M.D.04/23/2022 11:42 AM [employer] Other XR lumbar spine min 4V* Dictation Location: [place] [address] [employer] Other XR lumbar spine min 4V* Transcribed By: PWS 04/23/22 [facility] [employer] Other XR lumbar spine min 4V* Dictated By: Zandra Barksdale MD 04/23/22 [facility] [employer] Other XR lumbar spine min 4V* Signed By: [employer] Other XR lumbar spine min 4V* 04/23/22 [facility] [employer] Other Quick Strepon 02-13-2022 S. pyogenes Org specific cx Ql (Throat) Positive [employer] Other Quick Strep [employer] Other XR DEXA BONE DENSITYon 02-03 XR [...] by: KEITH TREJO Date: 2022-02-03 09:15 Normal [facility] Bacteria identified Anaer cx Nom (Unsp spec)Ordered By: Janina Soria on 01-26-2022 Anaerobic microbial culture No Anaerobes Isolated 3 Days [facility] ABO and Rh group post transf usion reaction Nom (Bld)Ordered By: Janina Soria on 01-24-2022 Microscopic observation Gram stain Nom (Unsp spec) [facility] Angiotensin converting enzym e [Enzymatic activity/volume] in Cerebral spinal fluidOrdered By: Janina Soria on 01-23-2022 Angiotensin converting enzyme (CSF) [Catalytic activity/Vol] <1.5 U/L 0.0-2.5 [facility] Comment on above: Results of this test are labeled for research purposes onlyby the assay's manager assurance. The performancecharacteristics of this assay have not been established bythe manager assurance. The result should not be used fortreatment or for diagnostic purposes without confirmationof the diagnosis by another medically establisheddiagnostic product or procedure. The performancecharacteristics were determined by [employer].Performed at: [facility] [employer] [id number] Director: Rene Holloway MD, Phone: [phone] Borrelia burgdorferi DNA [Pr esence] in Unspecified specimen by Probe and target ampliOrdered By: Janina Soria on 01-23-2022 B. burgdorferi DNA KIRSTIN+probe Ql (Unsp spec) Negative Negative [facility] Comment on above: No B. burgdorferi DN A Detected.This test was developed and its performance characteristicsdetermined by [employer]. It has not been cleared or approvedby the Food and Drug Administration. The FDA hasdetermined that such clearance or approval is notnecessary.Performed at: [address] [id number] Director: Rene Holloway MD, Phone: [phone] Cerebrospinal fluid post-radha trifugation appearance determinationOrdered By: Janina Soria on 01-23-2022 Appearance (Spun CSF) Colorless Colorless [facility] Cerebrospinal fluid sample t ube volume measurementOrdered By: Janina Soria on 01-23-2022 Specimen volume (CSF) 21.5 mL [facility] Color CSFOrdered By: Janina Sorai on 01-23-2022 Color (CSF) Colorless Colorless [facility] Manual cerebrospinal fluid e rythrocytes count (number/volume)Ordered By: Janina Soria on 01-23-2022 RBC Manual cnt (CSF) [#/Vol] 1 /uL [facility] Comment on above: The reference interv al and other method performance specifications have not been established for this body fluid. The test result must be integrated into the clinical context for interpretation. No Panel InformationOrdered By: Janina Soria on 01-23-2022 CSF Appearance Clear Clear [facility] CSF Eosinophils 0 [facility] Comment on above: The reference interv al and other method performance specifications have not been established for this body fluid. The test result must be integrated into the clinical context for interpretation. CSF Glucose 53 mg/dL 40-70 [facility] CSF Lymphocytes 8 [facility] Comment on above: The reference interv al and other method performance specifications have not been established for this body fluid. The test result must be integrated into the clinical context for interpretation. CSF Monocytes 2 [facility] Comment on above: The reference interv al and other method performance specifications have not been established for this body fluid. The test result must be integrated into the clinical context for interpretation. CSF Neutrophils 0 [facility] Comment on above: The reference interv al and other method performance specifications have not been established for this body fluid. The test result must be integrated into the clinical context for interpretation. CSF Total Cells Counted 10 [facility] CSF Total Protein 34 mg/dL 15-45 [facility] CSF Tube Number Tube number: 3 [facility] Nucleated cells [#/volume] i n Cerebral spinal fluid by Manual countOrdered By: Janina Soria on 01-23-2022 Nucleated cells Manual cnt (CSF) [#/Vol] 0.001 10*3/uL 0-5 [facility] PAP ACOG PANEL 2: 30 to 65on 10-30-2021 HPV Aptima Positive Abnormal Negative [facility] Comment on above: Result Comment: This nucleic acid amplification test detects fourteen high-risk HPV types (16,18,31,33,35,39,45,51,52,56,58,59,66,68) without differentiation. Performed at: =G Performed By: #### [id number] #### [facility] [address] [place] [address] Dr. Madiha Goins HPV Genotype 16 Negative Normal Negative [facility] Comment on above: Result Comment: Perf ormed at: =G Performed By: #### [id number] #### [facility] [address] [address] [address] Madiha Goins HPV Genotype 18,45 Negative Normal Negative [facility] Comment on above: Result Comment: Perf ormed at: =G Performed By: #### [id number] #### [facility] [address] [place] [address] Dr. Madiha Goins . . Normal [facility] Comment on above: Result Comment: Perf ormed at: WB Performed By: #### [id number] #### [facility] [address] [place] [address] Dr. Madiha Goins Age Gdln ACOG Testing 30-65 [facility] Comment on above: Performed By: #### [id number] #### [facility] [address] [place] [address] Dr. Madiha Goins DIAGNOSIS: Comment Normal [facility] Comment on above: Result Comment: NEGA TIVE FOR INTRAEPITHELIAL LESION OR MALIGNANCY. Performed at: WB Performed By: #### [id number] #### [facility] [address] [place] [address] Dr. Madiha Goins Methodology: Comment [facility] Comment on above: Result Comment: This liquid based ThinPrep(R) pap test was screened with the use of an image guided system. Performed at: WB Performed By: #### 4 [id number] #### [facility] [address] [place] [address] Dr. Madiha Goins Note: Comment [facility] Comment on above: Result Comment: The Pap smear is a screening test designed to aid in the detection of premalignant and malignant conditions of the uterine cervix. It is not a diagnostic procedure and should not be used as the sole means of detecting cervical cancer. Both false-positive and false-negative reports do occur. . Performed at: WB Performed By: #### [id number] #### [facility] [address] [address] [address] Madiha Goins Performed by: Comment Normal [facility] Comment on above: Result Comment: Oksana Maldonado, Banquet Manager (ASCP) Performed at: WB Performed By: #### 4 [id number] #### [facility] [address] [address] [address] Madiha Goins Specimen adequacy: Comment Normal [facility] Comment on above: Result Comment: Sati sfactory for evaluation. No endocervical component is identified. Performed at: WB Performed By: #### [id number] #### [facility] [address] [address] [address] Madiha Goins A1C HEMOGLOBINon 08-22-2021 HbA1c (Bld) [Mass fraction] 5.0 % [employer] Other Complete Blood Count Auto Di ffon 08-22-2021 Basophils (Bld) [#/Vol] 0.067437360 10*3/uL Normal 0.0-0.2 10*3/uL [employer] Other Basophils/100 WBC (Bld) 1.300 % . % [employer] Other Eosinophils (Bld) [#/Vol] 0.554552668 10*3/uL Normal 0.0-0.45 10*3/uL [employer] Other Eosinophils/100 WBC (Bld) 3.900 % . % [employer] Other Erythrocyte distribution width (RBC) [Ratio] 12.200 % Normal 11.9-15.3 % [employer] Other Hematocrit (Bld) [Volume fraction] 39.800 % Normal 34.0-46.4 % [employer] Other Hemoglobin (Bld) [Mass/Vol] 14.664227 g/dL Normal 11.8-15.4 g/dL [employer] Other Lymphocytes (Bld) [#/Vol] 2.504894513 10*3/uL Normal 1.00-4.8 10*3/uL [employer] Other Lymphocytes/100 WBC (Bld) 48.700 % . % [employer] Other MCH (RBC) [Entitic mass] 31.1000 pg Normal 24.7-34.3 pg [employer] Other MCV (RBC) [Entitic vol] 88.0000 fL Normal 80-100 fL [employer] Other Monocytes (Bld) [#/Vol] 0.913500288 10*3/uL Normal 0.0-0.8 10*3/uL [employer] Other Monocytes/100 WBC (Bld) 6.600 % . % [employer] Other Neutrophils (Bld) [#/Vol] 1.352309053 10*3/uL Normal 1.8-7.7 10*3/uL [employer] Other Neutrophils/100 WBC (Bld) 39.500 % . % [employer] Other Platelet mean volume (Bld) [Entitic vol] 7.9000 fL Normal 6.3-10.7 fL [employer] Other Platelets (Bld) [#/Vol] 292 10*3/uL Normal 150-450 10*3/uL [employer] Other RBC (Bld) [#/Vol] 4.4147960713 10*6/uL Normal 3. 60-5.00 10*6/uL [employer] Other WBC (Bld) [#/Vol] 4.365581528 10*3/uL Normal 3.8 -11.6 10*3/uL [employer] Other Complete Blood Count Auto Diff 4.9 10*3/uL Normal 4.5-11.0 10*3/uL [employer] Other Complete Blood Count Auto Diff 35.3 g/dL High 32.0-35.0 g/dL [employer] Other Complete Blood Count Auto Diff 0.1 % Normal 0-0.5 % [employer] Other Comprehensive Metabolic Pane bobby 08-22-2021 Albumin [Mass/Vol] 4.952261 g/dL Normal 3.2-5.5 g/dL [employer] Other Albumin/Globulin [Mass ratio] 1.8 {ratio} [employer] Other ALP [Catalytic activity/Vol] 70 U/L Normal 32-92 U/L [employer] Other ALT [Catalytic activity/Vol] 49 U/L Normal 10-60 U/L [employer] Other AST [Catalytic activity/Vol] 39 U/L Normal 10-42 U/L [employer] Other Bilirubin [Mass/Vol] 1.6481718 mg/dL Normal 0.3- 1.2 mg/dL [employer] Other Calcium [Mass/Vol] 9.3570333 mg/dL Normal 8.2-10 .2 mg/dL [employer] Other Chloride [Moles/Vol] 104 mmol/L Normal 95-114 mmol/L [employer] Other CO2 [Moles/Vol] 23.76108809 mmol/L Normal 22.0-3 0.0 mmol/L [employer] Other Creatinine [Mass/Vol] 1.78936184 mg/dL Normal 0. 44-1.03 mg/dL [employer] Other Glucose [Mass/Vol] 101 mg/dL High 70-100 mg/dL [employer] Other Potassium [Moles/Vol] 4.69932024 mmol/L Normal 3 .5-5.1 mmol/L [employer] Other Protein [Mass/Vol] 6.882477 g/dL Normal 6.1-7.9 g/dL [employer] Other Sodium [Moles/Vol] 137 mmol/L Normal 136-146 mmol/L [employer] Other Urea nitrogen [Mass/Vol] 11 mg/dL Normal 9-23 mg/dL [employer] Other Comprehensive Metabolic Panel > 60 [employer] Other Comprehensive Metabolic Panel 2.3 g/dL [employer] Other HbA1c (Bld) [Mass fraction]o n 08-22-2021 A1C HEMOGLOBIN [employer] Other Lipid Panelon 08-22-2021 Cholesterol [Mass/Vol] 217 mg/dL High 140-2 00 mg/dL [employer] Other Cholesterol in HDL [Mass/Vol] 40 mg/dL Normal 35-85 mg/dL [employer] Other Cholesterol in LDL Elph Qn 147 mg/dL High 0-100 mg/dL [employer] Other Cholesterol.total/Chol esterol in HDL [Mass ratio] 5.4 {ratio} <5.0 [employer] Other Lipid Panel 149 mg/dL Normal 35-149 mg/dL [employer] Other Lipid Panel 29 mg/dL [employer] Other Thyroid Stimulating Hormoneo n 08-22-2021 TSH Qn 1.96630187685 m[IU]/L Normal 0.45-5 .33 u[iU]/mL [employer] Other ECHO 2D W COLORFLOW DOPPLERo n 05-08-2017 ECHO 2D W COLORFLOW DOPPLER Normal [facility] Urgent Care and Emergency De partmenton 04-09-2017 Urgent Care and Emergency Department Normal [facility] Department Normal [facility] Department Normal [facility] Normal [facility] WRIST LT 3 OR MORE VIEWSon 1 06-09-2016 WRIST LT 3 OR MORE VIEWS PROCEDURE:WRIST LT 3 OR MORE VIEWS - [id number] CLINICAL:INJURY Special Instructions: = N TECHNIQUE:THREE OR [...] be recommended to exclude an occult fracture. ___Electronically signed by: Pineda Holland M.D., MBADate/time: 04-09-2017, 01:11 PM Final Report Normal [facility] LT BREAST US - BCon 04-06-20 BREAST US - BC PATIENT HISTORY:Samantha ent is postmenopausal.Family history of breast cancer at age 35 in maternal aunt. PHYSICAL FINDINGS:Patient complains of lumps bilateral breasts, and left breast larger than right. BREAST LEFT ULTRASOUND: 04/06/17 - Joyesvdr views.Technologist: Korin Mullins sonography of the breast was performed. No solid or cystic mass was identified.Palpable abnormalities of the breast or axilla that are sonographically occult should be managed clinically. BREAST RIGHT ULTRASOUND: 04/06/17 - Mclrzrye views.Technologist: Korin Mullins sonography of the breast [...] D.O.April 06, 2017 9:57 Final Report Normal [facility] RT BREAST US - BCon 04-06-20 RT BREAST US - BC PATIENT HISTORY:Samantha gross is postmenopausal.Family history of breast cancer at age 35 in maternal aunt. PHYSICAL FINDINGS:Patient complains of lumps bilateral breasts, and left breast larger than right. BREAST LEFT ULTRASOUND: 04/06/17 - Rackzpwz views.Technologist: Korin Mullins sonography of the breast was performed. No solid or cystic mass was identified.Palpable abnormalities of the breast or axilla that are sonographically occult should be managed clinically. BREAST RIGHT ULTRASOUND: 04/06/17 - Pblpejat views.Technologist: Korin Mullins sonography of the breast [...] D.O.April 06, 2017 9:57 Final Report Normal [facility] Urgent Care and Emergency De partmenton 03-06-2017 Urgent Care and Emergency Department Normal [facility] Department Normal [facility] Glucose FS UCCon 03-02-2017 Glucose mass conc 105 mg/dL Normal 70-110 [facility] Comment on above: Result Comment: Test ing performed at [place] [address] Performed By: #### G [facility] ####[facility] ServicesDrClark Loya MD[address] [place], [place] [id number] Urgent Care and Emergency De partmenton 03-02-2017 Urgent Care and Emergency Department Normal [facility] Department Normal [facility] Emergency Department Normal [facility] Emergency Department Normal [facility] Emergency Department Normal [facility] Care and Emergency De partmenton 02-12-2017 Urgent Care and Emergency Department Normal [facility] Department Normal [facility] ED Noteon 01-24-2017 HIM IP Note OR Wireless Retail Manager Normal [facility] HIM IP Note OR Wireless Retail Manager Normal [facility] ED Provider Noteon 7 HIM IP Note OR Wireless Retail Manager Normal [facility] Vital Signs Date Time Vital Sign Value Performing Clinician Facility 10-12-2024 13:00-0400 Diastolic blood pressure 73 mm[Hg] Infusion 6 Work Phone: [facility] 10-12-2024 13:00-0400 Heart rate 69 /min Infusion 6 Work Phone: [facility] 10-12-2024 13:00-0400 Systolic blood pressure 119 mm[Hg] Infusion 6 Work Phone: [facility] 10-11-2024 13:45-0400 Diastolic blood pressure 72 mm[Hg] Infusion 6 Work Phone: [facility] 10-11-2024 13:45-0400 Heart rate 71 /min Infusion 6 Work Phone: [facility] 10-11-2024 13:45-0400 Systolic blood pressure 110 mm[Hg] Infusion 6 Work Phone: [facility] 10-10-2024 15:39-0400 Diastolic blood pressure 66 mm[Hg] Infusion 8 Work Phone: [facility] 10-10-2024 15:39-0400 Heart rate 71 /min Infusion 8 Work Phone: [facility] 10-10-2024 15:39-0400 Systolic blood pressure 101 mm[Hg] Infusion 8 Work Phone: [facility] 10-04-2024 12:37-0400 Diastolic blood pressure 74 mm[Hg] Yoan Ivey MD Work Phone: [facility] 10-04-2024 12:37-0400 Heart rate 70 /min Yoan Ivey MD Work Phone: [facility] 10-04-2024 12:37-0400 Respiratory rate 16 /min Yoan Ivey MD Work Phone: [facility] 10-04-2024 12:37-0400 SaO2% (BldA) [Mass fraction] 96 % Yoan Ivey MD Work Phone: [facility] 10-04-2024 12:37-0400 Systolic blood pressure 107 mm[Hg] Yoan Ivey MD Work Phone: [facility] 10-04-2024 11:23-0400 Body temperature 98.3 [degF] Yoan Ivey MD Work Phone: [facility] 10-04-2024 11:20-0400 Body height 157.48 cm Yoan Ivey MD Work Phone: [facility] 10-04-2024 11:20-0400 Body weight 72.6 kg Yoan Ivey MD Work Phone: [facility] 09-30-2024 11:18-0400 Diastolic blood pressure 79 mm[Hg] Yoan Ivey MD Work Phone: [facility] 09-30-2024 11:18-0400 Heart rate 68 /min Yoan Ivey MD Work Phone: [facility] 09-30-2024 11:18-0400 Respiratory rate 18 /min Yoan Ivey MD Work Phone: [facility] 09-30-2024 11:18-0400 SaO2% (BldA) [Mass fraction] 97 % Yoan Ivey MD Work Phone: [facility] 09-30-2024 11:18-0400 Systolic blood pressure 124 mm[Hg] Yoan Ivey MD Work Phone: [facility] 09-30-2024 07:35-0400 Body temperature 97.8 [degF] Yoan Ivey MD Work Phone: [facility] 09-30-2024 05:50-0400 Body weight 75.6 kg Yoan Ivey MD Work Phone: [facility] 09-29-2024 00:00-0400 Body height 157.48 cm Yoan Ivey MD Work Phone: [facility] 08-04-2024 13:34-0400 Body height 158.8 cm Lisandro Gonsalez MD Work Phone: [facility] 08-04-2024 13:34-0400 Body mass index (BMI) [Ratio] 27.93 kg/m2 Lisandro Gonsalez MD Work Phone: [facility] 08-04-2024 13:34-0400 Body temperature 97.2 [degF] Lisandro Gonsalez MD Work Phone: [facility] 08-04-2024 13:34-0400 Body weight 70.4 kg Lisandro Gonsalez MD Work Phone: [facility] 08-04-2024 13:34-0400 Diastolic blood pressure 74 mm[Hg] Lisandro Gonsalez MD Work Phone: [facility] 08-04-2024 13:34-0400 Heart rate 78 /min Lisandro Gonsalez MD Work Phone: [facility] 08-04-2024 13:34-0400 SaO2% (BldA) [Mass fraction] 99 % Lisandro Gonsalez MD Work Phone: [facility] 08-04-2024 13:34-0400 Systolic blood pressure 110 mm[Hg] Lisandro Gonsalez MD Work Phone: [facility] 06-14-2024 15:04-0500 Body mass index (BMI) [Ratio] 29.84 kg/m2 Cassandra Tinsley [employer].PARIMUTUEL CLERK Work Phone: [facility] 06-14-2024 15:04-0500 Body weight 75.2 kg Cassandra Hill [employer]ER.PARIMUTUEL CLERK Work Phone: [facility] 06-14-2024 15:04-0500 Heart rate 68 /min Cassandrajae Tinsley [employer] LABORER.PARIMUTUEL CLERK Work Phone: [facility] 06-14-2024 15:04-0500 SaO2% (BldA) [Mass fraction] 99 % Cassandra Tinsley [employer] LABORER.PARIMUTUEL CLERK Work Phone: [facility] 06-03-2024 09:40-0500 Body height 158.8 cm Cassandra Tinsley STARCH FACTORY LABORER.PARIMUTUEL CLERK Work Phone: [facility] 06-03-2024 09:40-0500 Body mass index (BMI) [Ratio] 28.8 kg/m2 Cassandra Laureano [employer]ARCH FACTORY LABORER.PARIMUTUEL CLERK Work Phone: [facility] 06-03-2024 09:40-0500 Body weight 72.58 kg Cassandrajae Tinsley STARCH FACTORY LABORER.PARIMUTUEL CLERK Work Phone: [facility] 06-03-2024 09:40-0500 Heart rate 75 /min Cassandra Tinsley [employer]ARCH FACTORY LABORER.PARIMUTUEL CLERK Work Phone: [facility] 06-03-2024 09:40-0500 SaO2% (BldA) [Mass fraction] 100 % Cassandra Tinsley [employer]ARCH FACTORY LABORER.PARIMUTUEL CLERK Work Phone: [facility] 05-20-2024 09:45-0500 Body height 158.8 cm Osiel Osiel DO Work Phone: [facility] 05-20-2024 09:45-0500 Body mass index (BMI) [Ratio] 29.68 kg/m2 Osiel Osiel DO Work Phone: [facility] 05-20-2024 09:45-0500 Body weight 74.8 kg Osiel Osiel DO Work Phone: [facility] 05-20-2024 09:45-0500 Heart rate 78 /min Osiel Osiel DO Work Phone: [facility] 05-20-2024 09:45-0500 SaO2% (BldA) [Mass fraction] 97 % Osiel Osiel DO Work Phone: [facility] 03-19-2024 09:15-0500 Body height 157.48 cm Eli Bullimore PROFESSIONAL ORGANIZER-BC Work Phone: [facility] 03-19-2024 09:15-0500 Body mass index (BMI) [Ratio] 29.2 kg/m2 Eli Bullimore PROFESSIONAL ORGANIZER-BC Work Phone: [facility] 03-19-2024 09:15-0500 Body temperature 98.2 [degF] Eli Bullimore PROFESSIONAL ORGANIZER-BC Work Phone: [facility] 03-19-2024 09:15-0500 Body weight 72.57 kg Eli Bullimore PROFESSIONAL ORGANIZER-BC Work Phone: [facility] 03-19-2024 09:15-0500 Diastolic blood pressure 82 mm[Hg] Eli Bullimore PROFESSIONAL ORGANIZER-BC Work Phone: [facility] 03-19-2024 09:15-0500 Heart rate 81 /min Eli Bullimore PROFESSIONAL ORGANIZER-BC Work Phone: [facility] 03-19-2024 09:15-0500 SaO2% (BldA) [Mass fraction] 96 % Eli Bullimore PROFESSIONAL ORGANIZER-BC Work Phone: [facility] 03-19-2024 09:15-0500 Systolic blood pressure 120 mm[Hg] Eli Bullimore PROFESSIONAL ORGANIZER-BC Work Phone: [facility] 02-24-2024 09:41-0400 Body mass index (BMI) [Ratio] 28.88 kg/m2 Josefa Falk DO Work Phone: [facility] 02-24-2024 09:41-0400 Body weight 71.63 kg Josefa Falk DO Work Phone: [facility] 02-24-2024 09:41-0400 Diastolic blood pressure 93 mm[Hg] Josefa Dileep DO Work Phone: [facility] 02-24-2024 09:41-0400 SaO2% (BldA) [Mass fraction] 100 % Josefa Dileep DO Work Phone: [facility] 02-24-2024 09:41-0400 Systolic blood pressure 135 mm[Hg] Josefa Falk DO Work Phone: [facility] 02-08-2024 14:31-0400 Body height 157.48 cm DNP Lisa Kaple Work Phone: [facility] 02-08-2024 14:31-0400 Body temperature 98.7 [degF] DNP Lisa Kaple Work Phone: [facility] 02-08-2024 14:31-0400 Body weight 74.84 kg DNP Lisa Kaple Work Phone: [facility] 02-08-2024 14:31-0400 Diastolic blood pressure 64 mm[Hg] DNP Lisa Kaple Work Phone: [facility] 02-08-2024 14:31-0400 Heart rate 70 /min DNP Lisa Kaple Work Phone: [facility] 02-08-2024 14:31-0400 Respiratory rate 18 /min DNP Lisa Kaple Work Phone: [facility] 02-08-2024 14:31-0400 SaO2% (BldA) [Mass fraction] 100 % DNP Lisa Kaple Work Phone: [facility] 02-08-2024 14:31-0400 Systolic blood pressure 119 mm[Hg] DNP Lisa Kaple Work Phone: [facility] 01-29-2024 08:41-0400 Body height 158.75 cm DNP Lisa Kaple Work Phone: [facility] 01-29-2024 08:41-0400 Body mass index (BMI) [Ratio] 29.7 kg/m2 DNP Lisa Kaple Work Phone: [facility] 01-29-2024 08:41-0400 Body weight 74.98 kg DNP Lisa Kaple Work Phone: [facility] 01-29-2024 08:41-0400 Diastolic blood pressure 82 mm[Hg] DNP Lisa Kaple Work Phone: [facility] 01-29-2024 08:41-0400 Heart rate 79 /min DNP Lisa Kaple Work Phone: [facility] 01-29-2024 08:41-0400 Respiratory rate 16 /min DNP Lisa Kaple Work Phone: [facility] 01-29-2024 08:41-0400 SaO2% (BldA) [Mass fraction] 97 % DNP Lisa Kaple Work Phone: [facility] 01-29-2024 08:41-0400 Systolic blood pressure 116 mm[Hg] DNP Lisa Kaple Work Phone: [facility] 12-23-2023 10:30-0400 Diastolic blood pressure 70 mm[Hg] DNP Lisa Kaple Work Phone: [facility] 12-23-2023 10:30-0400 Heart rate 54 /min DNP Lisa Kaple Work Phone: [facility] 12-23-2023 10:30-0400 Respiratory rate 16 /min DNP Lisa Kaple Work Phone: [facility] 12-23-2023 10:30-0400 SaO2% (BldA) [Mass fraction] 97 % DNP Lisa Kaple Work Phone: [facility] 12-23-2023 10:30-0400 Systolic blood pressure 106 mm[Hg] DNP Lisa Kaple Work Phone: [facility] 12-23-2023 08:06-0400 Body height 157.48 cm DNP Lisa Johns Work Phone: [facility] 12-23-2023 08:06-0400 Body temperature 98.2 [degF] DNP Lisa Johns Work Phone: [facility] 12-23-2023 08:06-0400 Body weight 77.5 kg DNP Lisa Johns Work Phone: [facility] 10-08-2023 14:21-0400 Body height 157.5 cm Oumou-Prashant Geller DO Work Phone: [facility] 10-08-2023 14:21-0400 Body mass index (BMI) [Ratio] 32.46 kg/m2 Oumou-Prashant Geller DO Work Phone: [facility] 10-08-2023 14:21-0400 Body weight 80.5 kg Oumou-Prashant Geller DO Work Phone: [facility] 10-08-2023 14:21-0400 Diastolic blood pressure 91 mm[Hg] Oumou-Prashant Geller DO Work Phone: [facility] 10-08-2023 14:21-0400 Heart rate 93 /min Oumou-Prashant Geller DO Work Phone: [facility] 10-08-2023 14:21-0400 SaO2% (BldA) [Mass fraction] 99 % Oumou-Prashant Geller DO Work Phone: [facility] 10-08-2023 14:21-0400 Systolic blood pressure 127 mm[Hg] Oumou-Prashant Geller DO Work Phone: [facility] 10-04-2023 16:22-0400 Diastolic blood pressure 73 mm[Hg] DNP Lisa Treviñole Work Phone: [facility] 10-04-2023 16:22-0400 Heart rate 64 /min DNP Lisa Johns Work Phone: [facility] 10-04-2023 16:22-0400 Respiratory rate 20 /min DNP Lisa Johns Work Phone: [facility] 10-04-2023 16:22-0400 SaO2% (BldA) [Mass fraction] 98 % DNP Lisa Johns Work Phone: [facility] 10-04-2023 16:22-0400 Systolic blood pressure 116 mm[Hg] DNP Lisa Johns Work Phone: [facility] 10-04-2023 14:29-0400 Body height 160.02 cm DNP Lisa Johns Work Phone: [facility] 10-04-2023 14:29-0400 Body temperature 98.5 [degF] DNP Lisa Johns Work Phone: [facility] 10-04-2023 14:29-0400 Body weight 82 kg DNP Lisa Johns Work Phone: [facility] 09-29-2023 10:33-0400 Body mass index (BMI) [Ratio] 32.62 kg/m2 Alem Cuadra MD Work Phone: [facility] 09-29-2023 10:33-0400 Body weight 80.9 kg Alem Cuadra MD Work Phone: [facility] 09-29-2023 10:33-0400 Diastolic blood pressure 77 mm[Hg] lAem Cuadra MD Work Phone: [facility] 09-29-2023 10:33-0400 Heart rate 82 /min Alem Cuadra MD Work Phone: [facility] 09-29-2023 10:33-0400 Systolic blood pressure 121 mm[Hg] Alem Cuadra MD Work Phone: [facility] 08-25-2023 19:49-0400 Diastolic blood pressure 72 mm[Hg] DNP Lisa Kaple Work Phone: [facility] 08-25-2023 19:49-0400 Heart rate 89 /min DNP Lisa Kaple Work Phone: [facility] 08-25-2023 19:49-0400 Respiratory rate 16 /min DNP Lisa Kaple Work Phone: [facility] 08-25-2023 19:49-0400 SaO2% (BldA) [Mass fraction] 99 % DNP Lisa Kaple Work Phone: [facility] 08-25-2023 19:49-0400 Systolic blood pressure 138 mm[Hg] DNP Lisa Kaple Work Phone: [facility] 08-25-2023 13:07-0400 Body height 158.75 cm DNP Lisa Kaple Work Phone: [facility] 08-25-2023 13:07-0400 Body temperature 98.6 [degF] DNP Lisa Kaple Work Phone: [facility] 08-25-2023 13:07-0400 Body weight 83.2 kg DNP Lisa Kaple Work Phone: [facility] 08-25-2023 12:02-0400 Body height 163.83 cm DNP Lisa Kaple Work Phone: [facility] 08-25-2023 12:02-0400 Body mass index (BMI) [Ratio] 30.6 kg/m2 DNP Lisa Kaple Work Phone: [facility] 08-25-2023 12:02-0400 Body temperature 98.4 [degF] DNP Lisa Kaple Work Phone: [facility] 08-25-2023 12:02-0400 Body weight 82.1 kg DNP Lisa Kaple Work Phone: [facility] 08-25-2023 12:02-0400 Diastolic blood pressure 80 mm[Hg] DNP Lisa Kaple Work Phone: [facility] 08-25-2023 12:02-0400 Systolic blood pressure 124 mm[Hg] DNP Lisa Kaple Work Phone: [facility] 08-23-2023 13:12-0400 Diastolic blood pressure 55 mm[Hg] DNP Lisa Kaple Work Phone: [facility] 08-23-2023 13:12-0400 Heart rate 78 /min DNP Lisa Kaple Work Phone: [facility] 08-23-2023 13:12-0400 Respiratory rate 16 /min DNP Lisa Kaple Work Phone: [facility] 08-23-2023 13:12-0400 SaO2% (BldA) [Mass fraction] 98 % DNP Lisa Kaple Work Phone: [facility] 08-23-2023 13:12-0400 Systolic blood pressure 97 mm[Hg] DNP Lisa Kaple Work Phone: [facility] 08-23-2023 11:29-0400 Body temperature 98.9 [degF] DNP Lisa Kaple Work Phone: [facility] 08-23-2023 09:01-0400 Body height 163.83 cm DNP Lisa Kaple Work Phone: [facility] 08-23-2023 09:01-0400 Body weight 82 kg DNP Lisa Kaple Work Phone: [facility] 07-29-2023 14:42-0400 Diastolic blood pressure 68 mm[Hg] DNP Lisa Kaple Work Phone: [facility] 07-29-2023 14:42-0400 Heart rate 77 /min DNP Lisa Johns Work Phone: [facility] 07-29-2023 14:42-0400 Respiratory rate 16 /min DNP Lisa Johns Work Phone: [facility] 07-29-2023 14:42-0400 SaO2% (BldA) [Mass fraction] 97 % DNP Lisa Johns Work Phone: [facility] 07-29-2023 14:42-0400 Systolic blood pressure 100 mm[Hg] DNP Lisa Johns Work Phone: [facility] 07-29-2023 13:46-0400 Inhaled oxygen flow rate 2 L/min DNP Lisa Johns Work Phone: [facility] 07-29-2023 13:06-0400 Body temperature 98.3 [degF] DNP Lisa Jonhs Work Phone: [facility] 07-29-2023 11:39-0400 Body height 158.75 cm DNP Lisa Johns Work Phone: [facility] 07-29-2023 11:39-0400 Body mass index (BMI) [Ratio] 33.3 kg/m2 DNP Lisa Johns Work Phone: [facility] 07-29-2023 11:39-0400 Body weight 83.91 kg DNP Lisa Johns Work Phone: [facility] 07-09-2023 15:30-0500 Body temperature 98.2 [degF] Chance Vera MD Other Phone: [facility] [employer] [facility] 07-09-2023 15:30-0500 Diastolic blood pressure 106 mm[Hg] Chance Vera MD Other Phone: [facility] 07-09-2023 15:30-0500 Heart rate 95 /min Chance Vera MD Other Phone: [facility] 07-09-2023 15:30-0500 Respiratory rate 18 /min Chance Vera MD Other Phone: [facility] 07-09-2023 15:30-0500 SaO2% (BldA) [Mass fraction] 97 % Chance Vera MD Other Phone: [facility] 07-09-2023 15:30-0500 Systolic blood pressure 155 mm[Hg] Chance Vera MD Other Phone: [facility] 06-10-2023 00:42-0500 Diastolic blood pressure 53 mm[Hg] DNP Lisa Kaple Work Phone: [facility] 06-10-2023 00:42-0500 Heart rate 62 /min DNP Lisa Kaple Work Phone: [facility] 06-10-2023 00:42-0500 Respiratory rate 16 /min DNP Lisa Kaple Work Phone: [facility] 06-10-2023 00:42-0500 SaO2% (BldA) [Mass fraction] 95 % DNP Lisa Kaple Work Phone: [facility] 06-10-2023 00:42-0500 Systolic blood pressure 102 mm[Hg] DNP Lisa Kaple Work Phone: [facility] 06-09-2023 22:39-0500 Body height 157.48 cm DNP Lisa Kaple Work Phone: [facility] 06-09-2023 22:39-0500 Body temperature 97.8 [degF] DNP Lisa Kaple Work Phone: [facility] 06-09-2023 22:39-0500 Body weight 87 kg DNP Lisa Kaple Work Phone: [facility] 05-14-2023 12:50-0500 Body height 160.02 cm Edward Hernandez Other [facility] 05-14-2023 12:50-0500 Body mass index (BMI) [Ratio] 32.77 kg/m2 Edward Hernandez Other [employer] Other 05-14-2023 12:50-0500 Body temperature 98.1 [degF] Edward Hernandez Other [facility] [employer] Other 05-14-2023 12:50-0500 Body weight 83.92 kg Edward Hernandez Other [facility] [employer] Other 05-14-2023 12:50-0500 Body weight 83.91 kg DNP Lisa Johns Work Phone: [facility] 05-14-2023 12:50-0500 Diastolic blood pressure 69 mm[Hg] Edward Hernandez Other [facility] 05-14-2023 12:50-0500 Respiratory rate 18 /min Edward Hernandez Other [facility] [employer] Other 05-14-2023 12:50-0500 SaO2% (BldA) [Mass fraction] 99 % Edward Hernandez Other [facility] [employer] Other 05-14-2023 12:50-0500 Systolic blood pressure 102 mm[Hg] Edward Hernandez Other [facility] 05-06-2023 22:25-0500 Body temperature 99.6 [degF] DNP Lisa Johns Work Phone: [facility] 05-06-2023 20:42-0500 Body height 157.48 cm DNP Lisa Johns Work Phone: [facility] 05-06-2023 20:42-0500 Body weight 86.65 kg DNP Lisa Kaple Work Phone: [facility] 05-06-2023 20:42-0500 Diastolic blood pressure 70 mm[Hg] DNP Lisa Kaple Work Phone: [facility] 05-06-2023 20:42-0500 Heart rate 100 /min DNP Lisa Kaple Work Phone: [facility] 05-06-2023 20:42-0500 Respiratory rate 20 /min DNP Lisa Kaple Work Phone: [facility] 05-06-2023 20:42-0500 SaO2% (BldA) [Mass fraction] 95 % DNP Lisa Kaple Work Phone: [facility] 05-06-2023 20:42-0500 Systolic blood pressure 157 mm[Hg] DNP Lisa Kaple Work Phone: [facility] 08-06-2022 09:00-0400 Body height 160.02 cm Lisa Treviñodaniel Other [employer] Other 08-06-2022 09:00-0400 Body mass index (BMI) [Ratio] 30.09 kg/m2 Lisa Kapdaniel Other [employer] Other 08-06-2022 09:00-0400 Body weight 77.07 kg Lisa Treviñole Other [employer] Other 08-06-2022 09:00-0400 Diastolic blood pressure 72 mm[Hg] Lisa Hudsonle Other [employer] Other 08-06-2022 09:00-0400 Respiratory rate 18 /min Lisa Asad Other [employer] Other 08-06-2022 09:00-0400 SaO2% (BldA) [Mass fraction] 91 % Lisa Asad Other [employer] Other 08-06-2022 09:00-0400 Systolic blood pressure 102 mm[Hg] Lisa Asad Other [employer] Other 07-18-2022 11:15-0500 Body height 157.5 cm Derrell Phipps MD Work Phone: [facility] 07-18-2022 11:15-0500 Body weight 78.02 kg Derrell Phipps MD Work Phone: [facility] 07-18-2022 11:15-0500 Diastolic blood pressure 78 mm[Hg] Derrell Phipps MD Work Phone: [facility] 07-18-2022 11:15-0500 Heart rate 69 /min Derrell Phipps MD Work Phone: [facility] 07-18-2022 11:15-0500 Systolic blood pressure 110 mm[Hg] Derrell Phipps MD Work Phone: [facility] 07-17-2022 14:30-0500 Body height 160.02 cm Brandon Wing Other [employer] Other 07-17-2022 14:30-0500 Body mass index (BMI) [Ratio] 30.84 kg/m2 Brandon Wing Other [employer] Other 07-17-2022 14:30-0500 Body weight 78.97 kg Brandon Wing Other [employer] Other 07-17-2022 14:30-0500 Diastolic blood pressure 67 mm[Hg] Brandon Wing Other [employer] Other 07-17-2022 14:30-0500 Respiratory rate 18 /min Brandon Wing Other [employer] Other 07-17-2022 14:30-0500 SaO2% (BldA) [Mass fraction] 95 % Brandon Wing Other [facility] [employer] Other 07-17-2022 14:30-0500 Systolic blood pressure 102 mm[Hg] Brandon Wing Other [employer] Other 06-26-2022 14:45-0500 Diastolic blood pressure 72 mm[Hg] DNP Lisa Kaple Work Phone: [facility] 06-26-2022 14:45-0500 Heart rate 67 /min DNP Lisa Kaple Work Phone: [facility] 06-26-2022 14:45-0500 Respiratory rate 18 /min DNP Lisa Kaple Work Phone: [facility] 06-26-2022 14:45-0500 SaO2% (BldA) [Mass fraction] 97 % DNP Lisa Kaple Work Phone: [facility] 06-26-2022 14:45-0500 Systolic blood pressure 115 mm[Hg] DNP Lisa Kaple Work Phone: [facility] 06-26-2022 12:06-0500 Body height 157.48 cm DNP Lisa Kaple Work Phone: [facility] 06-26-2022 12:06-0500 Body weight 76.35 kg DNP Lisa Kaple Work Phone: [facility] 06-26-2022 12:05-0500 Body temperature 98.1 [degF] DNP Lisa Kaple Work Phone: [facility] 06-26-2022 12:00-0500 Body height 160.02 cm Lisa Johns Other [employer] Other 06-26-2022 12:00-0500 Body mass index (BMI) [Ratio] 28.62 kg/m2 Lisa Hudsonle Other [employer] Other 06-26-2022 12:00-0500 Body weight 73.3 kg Lisa Hudsonle Other [employer] Other 06-26-2022 12:00-0500 Diastolic blood pressure 60 mm[Hg] Lisa Hudsonle Other [employer] Other 06-26-2022 12:00-0500 Systolic blood pressure 110 mm[Hg] Lisa Hudsonle Other [employer] Other 06-09-2022 12:45-0500 Body height 160.02 cm Lisa Hudsonle Other [employer] Other 06-09-2022 12:45-0500 Body mass index (BMI) [Ratio] 27.93 kg/m2 Lisa Hudsonle Other [employer] Other 06-09-2022 12:45-0500 Body weight 71.53 kg Lisa Hudsonle Other [employer] Other 06-09-2022 12:45-0500 Diastolic blood pressure 78 mm[Hg] Lisa Treviñole Other [employer] Other 06-09-2022 12:45-0500 Respiratory rate 18 /min Lisa Johns Other [employer] Other 06-09-2022 12:45-0500 SaO2% (BldA) [Mass fraction] 98 % Lisa Asad Other [employer] Other 06-09-2022 12:45-0500 Systolic blood pressure 120 mm[Hg] Lisa Johns Other [employer] Other 05-19-2022 15:15-0500 Body height 160.02 cm Brandon Alfreddiff Other [employer] Other 05-19-2022 15:15-0500 Body mass index (BMI) [Ratio] 28.71 kg/m2 Brandonnirav Alfreddiff Other [employer] Other 05-19-2022 15:15-0500 Body weight 73.53 kg Brandon Alfreddiff Other [employer] Other 05-19-2022 15:15-0500 Diastolic blood pressure 74 mm[Hg] Brandon Mecca Other [employer] Other 05-19-2022 15:15-0500 Respiratory rate 18 /min Brandon Mecca Other [employer] Other 05-19-2022 15:15-0500 SaO2% (BldA) [Mass fraction] 97 % Brandon Wing Other [employer] Other 05-19-2022 15:15-0500 Systolic blood pressure 113 mm[Hg] Brandon Wing Other [employer] Other 04-28-2022 16:00-0500 Body height 160.02 cm Lisa Johns Other [employer] Other 04-28-2022 16:00-0500 Body mass index (BMI) [Ratio] 26.67 kg/m2 Lisa Johns Other [employer] Other 04-28-2022 16:00-0500 Body temperature 96.7 [degF] Lisa Johns Other [employer] Other 04-28-2022 16:00-0500 Body weight 68.31 kg Lisa Johns Other [employer] Other 04-28-2022 16:00-0500 Diastolic blood pressure 68 mm[Hg] Lisa Johns Other [employer] Other 04-28-2022 16:00-0500 Respiratory rate 18 /min Lisa Johns Other [employer] Other 04-28-2022 16:00-0500 SaO2% (BldA) [Mass fraction] 97 % Lisa Johns Other [employer] Other 04-28-2022 16:00-0500 Systolic blood pressure 112 mm[Hg] Lisa Johns Other [employer] Other 04-23-2022 09:30-0500 Body height 160.02 cm Lisa Johns Other [employer] Other 04-23-2022 09:30-0500 Body mass index (BMI) [Ratio] 26.18 kg/m2 Lisa Johns Other [employer] Other 04-23-2022 09:30-0500 Body weight 67.04 kg Lisa Asad Other [employer] Other 04-23-2022 09:30-0500 Diastolic blood pressure 70 mm[Hg] Lisa Johns Other [employer] Other 04-23-2022 09:30-0500 Respiratory rate 18 /min Lisa Johns Other [employer] Other 04-23-2022 09:30-0500 SaO2% (BldA) [Mass fraction] 99 % Lisa Johns Other [employer] Other 04-23-2022 09:30-0500 Systolic blood pressure 120 mm[Hg] Lisa Johns Other [employer] Other 02-13-2022 12:15-0400 Body height 160.02 cm Lisa Johns Other [employer] Other 02-13-2022 12:15-0400 Body mass index (BMI) [Ratio] 29.63 kg/m2 Lisa Johns Other [employer] Other 02-13-2022 12:15-0400 Body temperature 96.5 [degF] Lisa Johns Other [employer] Other 02-13-2022 12:15-0400 Body weight 75.89 kg Lisa Johns Other [employer] Other 02-13-2022 12:15-0400 Diastolic blood pressure 60 mm[Hg] Lisa Johns Other [facility] [employer] Other 02-13-2022 12:15-0400 Respiratory rate 18 /min Lisa Johns Other [employer] Other 02-13-2022 12:15-0400 SaO2% (BldA) [Mass fraction] 99 % Lisa Johns Other [employer] Other 02-13-2022 12:15-0400 Systolic blood pressure 100 mm[Hg] Lisa Johns Other [employer] Other 02-12-2022 22:55-0400 Body height 157.48 cm DNP Lisa Treviñole Work Phone: [facility] 02-12-2022 22:55-0400 Body temperature 97.5 [degF] DNP Lisa Kaple Work Phone: [facility] 02-12-2022 22:55-0400 Body weight 75 kg DNP Lisa Kaple Work Phone: [facility] 02-12-2022 22:55-0400 Diastolic blood pressure 84 mm[Hg] DNP Lisa Kaple Work Phone: [facility] 02-12-2022 22:55-0400 Heart rate 70 /min DNP Lisa Kaple Work Phone: [facility] 02-12-2022 22:55-0400 Respiratory rate 20 /min DNP Lisa Kaple Work Phone: [facility] 02-12-2022 22:55-0400 SaO2% (BldA) [Mass fraction] 97 % DNP Lisa Kaple Work Phone: [facility] 02-12-2022 22:55-0400 Systolic blood pressure 118 mm[Hg] DNP Lisa Kapdaniel Work Phone: [facility] 01-16-2022 08:45-0400 Body height 160.02 cm Lisa Johns Other [employer] Other 01-16-2022 08:45-0400 Body mass index (BMI) [Ratio] 30.68 kg/m2 Lisa Johns Other [employer] Other 01-16-2022 08:45-0400 Body temperature 97.3 [degF] Lisa Johns Other [employer] Other 01-16-2022 08:45-0400 Body weight 78.56 kg Lisa Asad Other [employer] Other 01-16-2022 08:45-0400 Diastolic blood pressure 70 mm[Hg] Lisa Johns Other [employer] Other 01-16-2022 08:45-0400 Respiratory rate 18 /min Lisapeter Johns Other [employer] Other 01-16-2022 08:45-0400 SaO2% (BldA) [Mass fraction] 98 % Lisa Johns Other [employer] Other 01-16-2022 08:45-0400 Systolic blood pressure 120 mm[Hg] Lisa Johns Other [employer] Other 01-01-2022 16:45-0400 Body height 160.02 cm Brandon Wing Other [employer] Other 08-24-2022 16:45-0400 Body mass index (BMI) [Ratio] 30.38 kg/m2 Brandon Wing Other [employer] Other 01-01-2022 16:45-0400 Body weight 77.79 kg Brandon Wing Other [employer] Other 01-01-2022 16:45-0400 Diastolic blood pressure 72 mm[Hg] Brandon Alfreddiff Other [employer] Other 01-01-2022 16:45-0400 SaO2% (BldA) [Mass fraction] 97 % Brandon Alfreddiff Other [employer] Other 01-01-2022 16:45-0400 Systolic blood pressure 119 mm[Hg] Brandon Alfreddiff Other [employer] Other 11-19-2021 10:30-0400 Body height 160.02 cm Fred Adalidcarlos manuel Other [employer] Other 11-19-2021 10:30-0400 Body mass index (BMI) [Ratio] 31.6 kg/m2 Fred Rupal Other [employer] Other 11-19-2021 10:30-0400 Body temperature 97.9 [degF] Fred Goldsmith Other [employer] Other 11-19-2021 10:30-0400 Body weight 80.92 kg Fred Goldsmith Other [employer] Other 11-19-2021 10:30-0400 Diastolic blood pressure 78 mm[Hg] Fred Goldsmith Other [employer] Other 11-19-2021 10:30-0400 Respiratory rate 18 /min Frde Goldsmith Other [employer] Other 11-19-2021 10:30-0400 SaO2% (BldA) [Mass fraction] 97 % Fred Goldsmith Other [employer] Other 11-19-2021 10:30-0400 Systolic blood pressure 110 mm[Hg] Fred Goldsmith Other [employer] Other 11-13-2021 16:45-0400 Body height 160.02 cm Brandon Wing Other [employer] Other 11-13-2021 16:45-0400 Body mass index (BMI) [Ratio] 31.81 kg/m2 Brandon Wing Other [employer] Other 11-13-2021 16:45-0400 Body weight 81.47 kg Brandon Wing Other [employer] Other 11-13-2021 16:45-0400 Diastolic blood pressure 70 mm[Hg] Brandon Wing Other [employer] Other 11-13-2021 16:45-0400 Respiratory rate 18 /min Brandon Wing Other [employer] Other 11-13-2021 16:45-0400 SaO2% (BldA) [Mass fraction] 97 % Brandon Wing Other [employer] Other 11-13-2021 16:45-0400 Systolic blood pressure 97 mm[Hg] Brandon Wing Other [employer] Other 10-03-2021 09:15-0400 Body height 160.02 cm Isabel Redmond Other [employer] Other 09-12-2021 14:30-0400 Body height 160.02 cm Brandon Wing Other [employer] Other 09-12-2021 14:30-0400 Body mass index (BMI) [Ratio] 34.34 kg/m2 Brandon Wing Other [employer] Other 09-12-2021 14:30-0400 Body weight 87.95 kg Brandon Wing Other [employer] Other 09-12-2021 14:30-0400 Diastolic blood pressure 67 mm[Hg] Brandon Wing Other [employer] Other 09-12-2021 14:30-0400 Respiratory rate 18 /min Brandon Wing Other [employer] Other 09-12-2021 14:30-0400 SaO2% (BldA) [Mass fraction] 95 % Brandon Alfreddiff Other [employer] Other 09-12-2021 14:30-0400 Systolic blood pressure 101 mm[Hg] Brandon Alfreddiff Other [employer] Other 08-21-2021 16:30-0400 Body height 160.02 cm Lisa Johns Other [employer] Other 04-13-2022 16:30-0400 Body mass index (BMI) [Ratio] 34.36 kg/m2 Lisa Treviñodaniel Other [employer] Other 08-21-2021 16:30-0400 Body weight 88 kg Lisa Asad Other [employer] Other 08-21-2021 16:30-0400 Diastolic blood pressure 67 mm[Hg] Lsia Asad Other [employer] Other 08-21-2021 16:30-0400 Respiratory rate 18 /min Lisa Asad Other [employer] Other 08-21-2021 16:30-0400 SaO2% (BldA) [Mass fraction] 97 % Lisa Asad Other [employer] Other 08-21-2021 16:30-0400 Systolic blood pressure 102 mm[Hg] Lisa Asad Other [employer] Other Encounters Encounter Date Encounter Type Care Provider Facility Start: 10-13-2024 End: 10-13-2024 Telephone encounter Sergei Harrington APRN.CNP Work Phone: Neurology Comment on above: Received Outside [facility] Records Start: 10-12-2024 End: 10-13-2024 Patient encounter procedure Sergei Harrington APRN.CNP Work Phone: Neurology Comment on above: Intractable chronic migraine with aura with status migrainosus (Primary Dx); Idiopathic intracranial hypertension Migraine without aur a, not intractable, without status migrainosus (Primary Dx) Start: 10-12-2024 End: 10-13-2024 ambulatory Infusion Main Chair 6 Work Phone: Neurology Comment on above: Migraine without aur a, not intractable, without status migrainosus (Primary Dx) Start: 10-11-2024 End: 10-11-2024 ambulatory YOAN M KIRSTIEJustine Facility:[facility] Comment on above: Migraine without aur a, not intractable, without status migrainosus (Primary Dx) Start: 10-10-2024 End: 10-10-2024 Telephone encounter Glo DUARTE Ophthalmology Comment on above: Social Work Consulta tion Start: 10-10-2024 End: 10-10-2024 ambulatory Infusion Main Chair 8 Work Phone: Neurology Comment on above: Migraine without aur a, not intractable, without status migrainosus (Primary Dx) Start: 10-07-2024 End: 10-07-2024 Telemedicine consultation with patient Zenaida Cabrera DO Work Phone: Neurology Start: 10-07-2024 End: 10-07-2024 ambulatory Zenaida Cabrera DO Work Phone: Neurology Comment on above: Migraine without aur a, not intractable, without status migrainosus (Primary Dx); Idiopathic intracranial hypertension Start: 10-06-2024 End: 10-06-2024 Telephone encounter Lloyd Sherwood MD Work Phone: Ophthalmology Start: 10-05-2024 End: 10-05-2024 Patient encounter procedure Lloyd Sherwood MD Work Phone: Ophthalmology Comment on above: IIH (idiopathic intr acranial hypertension) (Primary Dx); Other localized visual field defect, bilateral Start: 10-05-2024 End: 10-05-2024 ambulatory YOAN Greenwood KIRSTIEJustine Facility:[facility] Start: 10-04-2024 End: 10-05-2024 ambulatory [facility] Provider Ophthalmology Comment on above: Medical Record Relea se form Start: 10-04-2024 End: 10-05-2024 E-mail encounter from caregiver [facility] Provider Ophthalmology Start: 10-04-2024 End: 10-04-2024 Emergency department patient visit Shahid Ritter Facility:[facility] Start: 09-28-2024 End: 09-30-2024 ambulatory Cindy Winslow Facility:[facility] Start: 09-28-2024 End: 09-30-2024 Evaluation and management of inpatient Yoan Ivey MD Work Phone: [facility] Work Phone: Start: 09-28-2024 End: 09-30-2024 observation encounter Yoan Ivey MD Work Phone: [facility] Work Phone: Start: 09-28-2024 End: 09-28-2024 ambulatory YOAN IVEY Facility:[facility] Start: 09-26-2024 End: 09-26-2024 Telemedicine consultation with patient Zenaida Cabrera DO Work Phone: Neurology Start: 09-26-2024 End: 09-26-2024 ambulatory Zneaida Cabrera DO Work Phone: Neurology Comment on above: IIH (idiopathic intr acranial hypertension) (Primary Dx); Intractable chronic migraine with aura with status migrainosus Start: 09-23-2024 End: 09-23-2024 Telemedicine consultation with patient Faith Weir PA-C Work Phone: Neurology Start: 09-23-2024 End: 09-23-2024 ambulatory Faith Jose FINN Work Phone: Neurology Comment on above: IIH (idiopathic intr acranial hypertension) (Primary Dx); Chronic migraine without aura without status migrainosus, not intractable; Encounter for medication monitoring IIH (idiopathic intr acranial hypertension) (Primary Dx) Start: 09-22-2024 End: 09-23-2024 Emergency department patient visit ALLAN LOJAMUKUL Facility:[facility] Start: 09-21-2024 End: 09-21-2024 ambulatory Zenaida Cabrera DO Work Phone: Neurology Comment on above: diamox and current H A Papilledema Start: 09-21-2024 End: 09-21-2024 E-mail encounter from caregiver Zenaida Cabrera DO Work Phone: Neurology Start: 09-21-2024 End: 09-21-2024 Telephone encounter Lloyd Sherwood MD Work Phone: Ophthalmology Start: 09-19-2024 End: 09-19-2024 ambulatory Oly Lynn RN NURSE LICENSED PRACTICAL NURSE Comment on above: Headache Start: 08-26-2024 End: 08-26-2024 ambulatory YOAN IVEY Facility:[facility] Start: 08-24-2024 End: 09-13-2024 E-mail encounter from caregiver Zenaida Cabrera DO Work Phone: Neurology Start: 08-24-2024 End: 08-24-2024 Telemedicine consultation with patient Zenaida Cabrera DO Work Phone: Neurology Start: 08-24-2024 End: 09-13-2024 ambulatory Zenaida Cabrera DO Work Phone: Neurology Comment on above: IIH (idiopathic intr acranial hypertension) (Primary Dx); Chronic migraine without aura without status migrainosus, not intractable; Paresthesia of skin today's visit Start: 08-05-2024 End: 08-05-2024 ambulatory LISANDRO GONSALEZ Facility:[facility] Start: 08-04-2024 End: 08-04-2024 ambulatory CASSANDRA TINSLEY Facility:[facility] Start: 08-04-2024 End: 08-04-2024 Patient encounter procedure Lisandro Gonsalez MD Work Phone: Neurology Comment on above: Multiple complaints (Primary Dx); Tingling; Disturbance of skin sensation; Burning sensation; Numbness Start: 07-22-2024 End: 07-22-2024 ambulatory Rafy Goldberg MD Work Phone: Neurology Headache [facility] Comment on above: IIH (idiopathic intr acranial hypertension) (Primary Dx); Other polyneuropathy Start: 07-22-2024 End: 07-22-2024 Telemedicine consultation with patient Rafy Goldberg MD Work Phone: Neurology Headache [facility] Start: 07-15-2024 End: 07-20-2024 Telephone encounter Cassandra Tinsley APRN.PARIMUTUEL CLERK Work Phone: Pain Management Comment on above: Patient Update Start: 07-11-2024 End: 07-11-2024 ambulatory Cassandra Tinsley APRN.PARIMUTUEL CLERK Work Phone: Pain Management Comment on above: Anterior thigh numbn ess (Primary Dx); Chronic pain syndrome Start: 07-11-2024 End: 07-11-2024 Telemedicine consultation with patient Cassandra Abrams Laureano GARCIAPARIMUTUEL CLERK Work Phone: Pain Management Start: 07-04-2024 End: 07-04-2024 Refill Zenaidashnaika Cabrera DO Work Phone: Neurology Comment on above: Refill Request Start: 07-03-2024 ambulatory LORAINE PERLA Reneei ty:[facility] Start: 07-01-2024 End: 07-01-2024 ambulatory [facility] Facility:[facility] Start: 07-01-2024 End: 07-01-2024 Patient encounter procedure Hank Merida MD Work Phone: Urology Comment on above: Kidney stone; IIH (idiopathic intracranial hypertension) Start: 06-29-2024 End: 06-29-2024 ambulatory Cassandra Tinsley APRN.PARIMUTUEL CLERK Work Phone: Pain Management Comment on above: Questionnaire Submis geronimo Start: 06-29-2024 End: 06-29-2024 E-mail encounter from caregiver Cassandra Tinsley APRN.PARIMUTUEL CLERK Work Phone: Pain Management Start: 06-27-2024 End: 06-27-2024 Patient encounter procedure PHYSICIAN [facility] Work Phone: Start: 06-27-2024 End: 06-27-2024 ambulatory PHYSICIAN [facility] Work Phone: Start: 06-23-2024 End: 06-23-2024 ambulatory Cassandra Tinsley APRN.PARIMUTUEL CLERK Work Phone: Pain Management Comment on above: Questionnaire Submis geronimo Start: 06-23-2024 End: 06-23-2024 E-mail encounter from caregiver Cassandra Tinsley APRN.PARIMUTUEL CLERK Work Phone: Pain Management Start: 06-14-2024 End: 06-14-2024 Office outpatient visit 25 minutes Cassandra Tinsley APRN.VAISHNAVI Work Phone: Pain Management Comment on above: Chronic bilateral lo w back pain with bilateral sciatica (Primary Dx); Polyarthralgia; Cervical radiculopathy; Cervical spondylolysis Start: 06-14-2024 End: 06-14-2024 E-mail encounter from caregiver Cassandra Tinsley APRN.PARIMUTUEL CLERK Work Phone: Pain Management Start: 06-14-2024 End: 06-14-2024 ambulatory Cassandra Tinsley APRN.PARIMUTUEL CLERK Work Phone: Pain Management Comment on above: PAIN QUESTIONNAIRE IIH (idiopathic intr acranial hypertension) (Primary Dx); Kidney stones Elevated C-reactive protein (CRP) (Primary Dx) Kidney Stones; Flank Pain; Back Pain Start: 06-14-2024 End: 06-14-2024 Patient encounter procedure Lloyd Sherwood MD Work Phone: Ophthalmology Comment on above: IIH (idiopathic intr acranial hypertension) (Primary Dx); Other localized visual field defect, bilateral Start: 06-13-2024 End: 06-14-2024 ambulatory Cassandra Tinsley APRN.VAISHNAVI Work Phone: Pain Management Start: 06-13-2024 End: 06-14-2024 Patient encounter procedure Cassandra Tinsley APRN.VAISHNAVI Work Phone: Pain Management Comment on above: 6th chiropractor/phy sical therapy appointment Start: 06-06-2024 End: 06-06-2024 ambulatory Cassandra Tinsley APRN.CNP Work Phone: Pain Management Comment on above: Test results Start: 06-03-2024 End: 06-06-2024 E-mail encounter from caregiver Zenaida Cabrera Work Phone: Neurology Start: 06-03-2024 End: 06-07-2024 Telephone encounter Cassandra Tinsley APRN.CNP Work Phone: Pain Management Comment on above: Results Start: 06-03-2024 End: 06-03-2024 Office outpatient visit 25 minutes Cassandra Tinsley [employer]ARCH FACTORY LABORER.PARIMUTUEL CLERK Work Phone: Pain Management Comment on above: Lumbosacral spondylo sis without myelopathy (Primary Dx); Polyarthralgia; Chronic pain syndrome; Neck pain Start: 06-03-2024 End: 06-06-2024 ambulatory Zenaida Cabrera DO Work Phone: Neurology Comment on above: IIH (idiopathic intr acranial hypertension) (Primary Dx); Blurry vision; Worsening headaches today's visit Start: 06-03-2024 End: 06-03-2024 Telemedicine consultation with patient Zenaida Cabrera DO Work Phone: Neurology Start: 05-30-2024 End: 05-30-2024 ambulatory No Pcp [employer] Start: 05-30-2024 End: 05-30-2024 Patient encounter procedure No Pcp [employer] [facility] Start: 05-27-2024 End: 05-30-2024 ambulatory Emilee Roca APRN.PARIMUTUEL CLERK Work Phone: Neurology Comment on above: Headaches My neck Start: 05-23-2024 End: 05-23-2024 Departed Referred PHYSICIAN NO [facility] [address] Work Phone: Start: 05-23-2024 End: 05-23-2024 ambulatory PHYSICIAN NO [facility] Work Phone: Start: 05-20-2024 End: 05-20-2024 Subsequent hospital visit by physician Anusha [facility] Start: 05-20-2024 End: 05-20-2024 ambulatory OSIEL E OSIEL Facility:[facility] Start: 05-20-2024 End: 05-20-2024 Patient encounter [...] End: 05-13-2024 E-mail encounter from caregiver Osiel Tompkins Osiel DO Work Phone: Pain Management Start: 04-21-2024 Non-patient / Non-visit PHYSICIAN YORDY [facility] Work Phone: Start: 04-05-2024 End: 04-05-2024 ambulatory Emilee Roca [employer] FACTORY LABORER.PARIMUTUEL CLERK Work Phone: Neurology Comment on above: IIH (idiopathic intr acranial hypertension) Start: 04-05-2024 End: 04-05-2024 Telemedicine consultation with patient Emilee Roca [employer]ARCH FACTORY LABORER.PARIMUTUEL CLERK Work Phone: Neurology Start: 03-19-2024 End: 03-19-2024 ambulatory Eli Castroore PROFESSIONAL ORGANIZER-BC Work Phone: [facility] Work Phone: Start: 03-19-2024 End: 03-19-2024 Patient encounter procedure Eli Castroore PROFESSIONAL ORGANIZER-BC Work Phone: [facility] Physician [facility] [place] Work Phone: Start: 03-16-2024 End: 03-16-2024 ambulatory Osiel E Osiel DO Work Phone: Pain Management Comment on above: Questionnaire Submis geronimo Start: 03-16-2024 End: 03-16-2024 E-mail encounter from caregiver Osiel Carneygis DO Work Phone: Pain Management Start: 03-06-2024 End: 03-08-2024 ambulatory Josefa Dileep DO Work Phone: Neurology Pain Comment on above: Medication Start: 02-24-2024 End: 02-24-2024 ambulatory EMILEE J CHANELLE Facility:[facility] Start: 02-24-2024 End: 02-24-2024 Office outpatient new 30 minutes Josefa Falk DO Work Phone: Neurology Pain Comment on above: Polyarthralgia (Prim anaid Dx); Chronic pain syndrome; Chronic bilateral low back pain with right-sided sciatica Start: 02-08-2024 End: 02-08-2024 Emergency department patient visit DEJAH Lisa Treviñodaniel Work Phone: [facility]Emer[facility] Work Phone: Start: 01-29-2024 End: 01-29-2024 ambulatory DNP Lisa Johns Work Phone: [facility] Work Phone: Start: 01-29-2024 End: 01-29-2024 Patient encounter procedure DEJAH Lisa Johns Work Phone: [facility] Work Phone: Start: 01-07-2024 End: 01-07-2024 Telephone encounter Lloyd Sherwood MD Work Phone: Ophthalmology Start: 01-01-2024 End: 01-01-2024 ambulatory Emilee Roca APRN.PARIMUTUEL CLERK Work Phone: Neurology Comment on above: IIH (idiopathic intr acranial hypertension); Class 1 obesity due to excess calories with serious comorbidity and body mass index (BMI) of 32.0 to 32.9 in adult Start: 01-01-2024 End: 01-01-2024 Telemedicine consultation with patient Emilee Roca [employer]ARCH FACTORY LABORER.PARIMUTUEL CLERK Work Phone: Neurology Start: 12-25-2023 End: 12-25-2023 ambulatory [facility] Facility:[facility] Start: 12-25-2023 End: 12-25-2023 Patient encounter procedure Tamanna Barry OD Work Phone: Ophthalmology Comment on above: IIH (idiopathic intr acranial hypertension) (Primary Dx); Accommodation spasm, bilateral; Hyperopic astigmatism of both eyes Start: 12-24-2023 Non-patient / Non-visit DNP Tad Johns Work Phone: [facility] Physician [facility] [place] Work Phone: Start: 12-23-2023 End: 12-23-2023 Emergency department patient visit DNP Lisa Johns Work Phone: [facility]Emer[facility] Work Phone: Start: 11-16-2023 Non-patient / Non-visit DNP Tad Johns Work Phone: [facility] Physician [facility] [place] Work Phone: Start: 10-12-2023 End: 10-12-2023 ambulatory Alem Cuadra MD Work Phone: Rheumatology Comment on above: Polyarthralgia (Prim anaid Dx); Chronic pain syndrome Start: 10-12-2023 End: 10-12-2023 Telemedicine consultation with patient Alem Cuadra MD Work Phone: Rheumatology Start: 10-09-2023 End: 10-09-2023 ambulatory Rafy Goldberg MD Work Phone: Neurology [facility] Comment on above: IIH (idiopathic intr acranial hypertension) (Primary Dx); Class 1 obesity due to excess calories with serious comorbidity and body mass index (BMI) of 32.0 to 32.9 in adult Start: 10-09-2023 End: 10-09-2023 Telemedicine consultation with patient Rafy Goldberg MD Work Phone: Neurology Headache [facility] Start: 10-08-2023 End: 10-08-2023 Patient encounter procedure OumouRossPrashant Geller DO Work Phone: General Surgery Comment on above: RLQ abdominal pain ( Primary Dx); Metal foreign body in abdomen Start: 10-06-2023 End: 10-06-2023 ambulatory VANESSA DURAN Not Available Start: 10-06-2023 Non-patient / Non-visit DNP Tad Johns Work Phone: [facility] Physician [facility] [place] Work Phone: Start: 10-04-2023 End: 10-04-2023 Emergency department patient visit DNP Lisa Asad Work Phone: [facility]Emergency [facility] Work Phone: Start: 09-29-2023 ambulatory Rosalie Bunchdell RT(R) Radi ology Comment on above: Radiology XR Start: 09-29-2023 Patient encounter procedure Rosalie Lionel RT(R) Radiology Start: 09-29-2023 End: 09-29-2023 Subsequent hospital visit by physician Xr [facility] Radiology Comment on above: Polyarthralgia [M25. 50] Start: 09-29-2023 End: 09-29-2023 Office outpatient new 60 minutes Alem Cuadra MD Work Phone: Rheumatology Comment on above: Polyarthralgia (Prim anaid Dx); Elevated C-reactive protein (CRP) Start: 09-28-2023 Non-patient / Non-visit DNP Tad Johns Work Phone: [facility] Physician [facility] [place] Work Phone: Start: 08-27-2023 End: 08-27-2023 ambulatory VANESSA DURAN Not Available Start: 08-25-2023 End: 08-25-2023 ambulatory Charlotte Carpenter RN NURSE LICENSED PRACTICAL NURSE Comment on above: Swollen Glands Start: 08-25-2023 Non-patient / Non-visit DNP Tad Johns Work Phone: [facility] Physician [facility] Work Phone: Start: 08-25-2023 End: 08-25-2023 Emergency department patient visit DNP Lisa Asad Work Phone: [facility]Emergency Room Work Phone: Start: 08-25-2023 End: 08-25-2023 Patient encounter procedure DNP Lisa Asad Work Phone: [facility] Physician [facility] [place] Work Phone: Start: 08-23-2023 End: 08-23-2023 Emergency department patient visit DEJAH Johns Work Phone: [facility]Emergency Room Work Phone: Start: 08-14-2023 End: 08-14-2023 ambulatory VANESSA DURAN Not Available Start: 08-05-2023 End: 08-05-2023 ambulatory VANESSA DURAN Not Available Start: 07-29-2023 End: 07-29-2023 Admission to same day surgery center DNP Lisa Johns Work Phone: [facility]-Surgery Center [facility] [place] Start: 07-29-2023 End: 07-29-2023 ambulatory DNP Lisa Treviñodaniel Work Phone: [facility] Work Phone: Start: 07-20-2023 End: 07-20-2023 Departed Referred DNP Lisa Johns Work Phone: [facility]-Pre-Surgical Testing Work Phone: Start: 07-20-2023 End: 07-20-2023 Patient encounter procedure DNP Lisa Johns Work Phone: [facility]Pre-Surgical Testing Work Phone: Start: 07-09-2023 End: 07-09-2023 Emergency department patient visit Chance Vera MD Other Phone: [facility] Emergency Medicine Comment on above: Jaw symptoms/complai nts (Has L jaw fx, was referred here to get CT scan. C/o jaw locking, and tenderness. ) Start: 07-09-2023 End: 07-09-2023 Emergency department patient visit CHANCE VERA Facility:[facility] Start: 07-02-2023 End: 07-02-2023 ambulatory VANESSA DURAN Not Available Start: 06-10-2023 End: 06-10-2023 ambulatory Lisa Johns Other [employer] Other Start: 06-10-2023 Telephone encounter Lisa Tony [facility] [place] Start: 06-09-2023 End: 06-10-2023 Emergency department patient visit DNP Lisa Johns Work Phone: [facility]-Emergency Room Work Phone: Start: 05-14-2023 End: 05-14-2023 ambulatory Edward Hernandez Other [employer] Other Start: 05-14-2023 Office outpatient vi sit 15 minutes Edward Hernandez [facility] Start: 05-14-2023 End: 05-14-2023 Patient encounter procedure DNP Lisa Johns Work Phone: [facility] Physician Group-[facility] [place] Work Phone: Start: 05-12-2023 End: 05-12-2023 ambulatory Lisa Johns Other [employer] Other Start: 05-12-2023 Telephone encounter Lisa Tony [facility] [place] Start: 05-07-2023 End: 05-07-2023 ambulatory Lisa Johns Other [employer] Other Start: 05-07-2023 Telephone encounter Lisa Tony [facility] [place] Start: 05-06-2023 End: 05-06-2023 Emergency department patient visit DNP Lisa Johns Work Phone: [facility]Emergency Room Work Phone: Start: 04-20-2023 End: 04-20-2023 ambulatory Lisa Johns Other [employer] Other Start: 04-20-2023 Telephone encounter Lisa Asad [facility] Start: 04-20-2023 End: 04-20-2023 Patient encounter procedure DNP Lisa Johns Work Phone: [facility] Physician Group-[facility] [place] Work Phone: Start: 02-03-2023 End: 02-03-2023 ambulatory Lisa Kapdaniel Other [employer] Other Start: 02-03-2023 Telephone encounter Lisa Asad F [facility] [place] Start: 12-22-2022 End: 12-22-2022 Patient encounter procedure DNP Lisa Johns Work Phone: [facility]Ultrasound Cntr for Breast Car Start: 12-12-2022 End: 12-12-2022 ambulatory Lisa Johns Other [employer] Other Start: 12-12-2022 Telephone encounter Lisa Asad [facility] Start: 11-27-2022 End: 11-27-2022 ambulatory Lisa Asad Other [employer] Other Start: 11-27-2022 Telephone encounter Lisa Treviñodaniel F [facility] [place] Start: 11-25-2022 Telephone encounter Lisa Asad [facility] [place] Start: 11-25-2022 End: 11-25-2022 ambulatory DNP Lisa Johns Work Phone: [facility] Work Phone: Start: 11-25-2022 End: 11-25-2022 Patient encounter procedure DNP Lisa Johns Work Phone: [facility] Start: 09-09-2022 End: 09-09-2022 ambulatory Lisa Johns Other [employer] Other Start: 09-09-2022 Telephone encounter Lisa Tony [facility] [place] Start: 08-06-2022 End: 08-06-2022 ambulatory Lisa Johns Other [employer] Other Start: 08-06-2022 Office outpatient vi sit 25 minutes Lisa Johns [facility] [place] Start: 07-18-2022 End: 07-18-2022 ambulatory Lisa Johns Other [employer] Other Start: 07-18-2022 Telephone encounter Lisa Tony [facility] [place] Start: 07-18-2022 End: 07-18-2022 Patient encounter procedure Dererll Phipps MD Work Phone: Cardiology Comment on above: Atypical chest pain (Primary Dx) Start: 07-17-2022 Registered Recurring DNP Jyoti Johns Work Phone: [facility]-Weight Management Work Phone: Start: 07-17-2022 Follow-up encounter Brandon [facility] Start: 07-17-2022 End: 07-17-2022 ambulatory DNP Lisa Asad Work Phone: [facility] Work Phone: Start: 07-17-2022 End: 07-17-2022 Patient encounter procedure DNP Lisa Asad Work Phone: [facility]-Electrodiagnostics Work Phone: Start: 07-17-[address] Marcel Lira II Facility:[id number] Start: 07-08-2022 End: 07-08-2022 ambulatory Lisa Johns Other [employer] Other Start: 07-08-2022 Telephone encounter Lisa Tony [facility] Start: 07-07-2022 End: 07-07-2022 Patient encounter procedure DNP Lisa Johns Work Phone: [facility] Start: 07-07-2022 End: 07-07-2022 ambulatory DNP Lisa Johns Work Phone: [facility] Work Phone: Start: 07-07-2022 Telephone encounter Lisa Treviñodaniel Chavo [facility] Start: 06-30-2022 End: 06-30-2022 ambulatory Lisa Johns Other [employer] Other Start: 06-30-2022 Telephone encounter Lisa Tony [facility] Start: 06-27-2022 End: 06-27-2022 ambulatory Lisa Johns Other [employer] Other Start: 06-27-2022 Telephone encounter Lias Treviñodaniel Chavo [facility] Start: 06-26-2022 End: 06-27-2022 ambulatory LISA JOHNS Facility: Start: 06-26-2022 Office outpatient vi sit 40 minutes Lisa Kapdaniel [facility] Start: 06-26-2022 Telephone encounter Lisa Tony [facility] Start: 06-26-2022 End: 06-26-2022 Emergency department patient visit DNP Lisa Johns Work Phone: [facility] Work Phone: Start: 06-18-2022 End: 06-18-2022 ambulatory DNP Lisa Johns Work Phone: [facility] Work Phone: Start: 06-18-2022 End: 06-18-2022 Patient encounter procedure DNP Lisa Johns Work Phone: [facility] Work Phone: Start: 06-13-2022 End: 06-13-2022 ambulatory Lisa Johns Other [employer] Other Start: 06-13-2022 Telephone encounter Lisa Tony [facility] [place] Start: 06-09-2022 End: 06-09-2022 ambulatory Lisa Johns Other [employer] Other Start: 06-09-2022 Office outpatient vi sit 25 minutes Lisa Johns [facility] [place] Start: 06-03-2022 End: 06-03-2022 ambulatory Brandon Wing Other [employer] Other Start: 06-03-2022 Telephone encounter Brandon iqbal [facility] Start: 05-19-2022 Registered Recurring DNP Jyoti Johns Work Phone: [facility] Work Phone: Start: 05-19-2022 End: 05-19-2022 ambulatory Brandon Wing Other [employer] Other Start: 05-19-2022 Follow-up encounter Brandon iqbal [facility] Start: 05-13-2022 End: 05-13-2022 ambulatory Brandon Wing Other [employer] Other Start: 05-13-2022 Telephone encounter Brandon hernandezs [facility] Start: 04-28-2022 End: 04-28-2022 ambulatory Lisa Johns Other [employer] Other Start: 04-28-2022 Office outpatient vi sit 25 minutes Lisa Johns [facility] Start: 04-28-2022 Telephone encounter Lisa [facility] Start: 04-24-2022 End: 04-24-2022 ambulatory Lisa Johns Other [employer] Other Start: 04-24-2022 Telephone encounter Lisa [facility] Start: 04-23-2022 Office outpatient vi sit 25 minutes Lisa Johns [facility] [place] Start: 04-23-2022 End: 04-23-2022 ambulatory DNP Lisa Asad Work Phone: [facility] Work Phone: Start: 04-23-2022 End: 04-23-2022 Patient encounter procedure DNP Lisa Asad Work Phone: [facility] Start: 04-14-2022 End: 04-14-2022 ambulatory Lisa Johns Other [employer] Other Start: 04-14-2022 Telephone encounter Lisa Tony [facility] [place] Start: 04-08-2022 End: 04-08-2022 ambulatory Lisa Johns Other [employer] Other Start: 04-08-2022 Telephone encounter Lisa Asad Tony [facility] Start: 03-19-2022 Registered Recurring DNP Jyoit alondra Johns Work Phone: [facility] Start: 03-12-2022 End: 03-12-2022 ambulatory Lisa Johns Other [employer] Other Start: 03-12-2022 Telephone encounter Lisa Asad Tony [facility] [place] Start: 03-04-2022 End: 03-04-2022 ambulatory Brandon Wing Other [employer] Other Start: 03-04-2022 Telephone encounter Brandon Tony [facility] Start: 02-13-2022 End: 02-13-2022 ambulatory Lisa Johns Other [employer] Other Start: 02-13-2022 Office outpatient vi sit 25 minutes Lisa Johns [facility] Start: 02-12-2022 End: 02-13-2022 Emergency department patient visit DNP Lisapeter Treviñodaniel Work Phone: [facility] Start: 02-10-2022 End: 02-10-2022 ambulatory DNP Lisa Treviñodaniel Work Phone: [facility] Work Phone: Start: 02-10-2022 End: 02-10-2022 Patient encounter procedure DNP Lisa Treviñodaniel Work Phone: [facility] [place] Start: 02-03-2022 End: 02-04-2022 ambulatory FADUMO COLUNGA Facility: Start: 01-23-2022 End: 01-23-2022 Patient encounter procedure DNP Lisa Treviñodaniel Work Phone: [facility] [place] Start: 01-16-2022 End: 01-16-2022 ambulatory Lisa Johns Other [employer] Other Start: 01-16-2022 Office outpatient vi sit 25 minutes Lisa Johns [facility] Start: 01-15-2022 End: 01-15-2022 ambulatory Lisa Johns Other [employer] Other Start: 01-15-2022 Telephone encounter Lisa Tony [facility] [address] Start: 01-10-2022 End: 01-10-2022 Patient encounter procedure DNP Lisa Treviñodaniel Work Phone: [facility] [place] Start: 01-01-2022 Registered Recurring DNP Jyoti Treviñodaniel Work Phone: [facility] Start: 01-01-2022 (Televisit) Televisit Brandon Wing [facility] Start: 01-01-2022 End: 01-01-2022 ambulatory Brandonnirav Alfreddiff Other [employer] Other Start: 11-21-2021 End: 11-21-2021 ambulatory Lisa Johns Other [employer] Other Start: 11-21-2021 Telephone encounter Lisa Tony [facility] [place] Start: 11-19-2021 End: 11-19-2021 ambulatory Fred Goldsmith Other [employer] Other Start: 11-19-2021 Office outpatient vi sit 15 minutes Fred Goldsmith [facility] [place] Start: 11-13-2021 End: 11-13-2021 ambulatory Brandon Wing Other [employer] Other Start: 11-13-2021 Follow-up encounter Brandon iqbal [facility] Start: 10-25-2021 End: 10-25-2021 ambulatory Brandon Wing Other [employer] Other Start: 10-25-2021 Telephone encounter Brandon iqbal [facility] Start: 10-23-2021 End: 10-23-2021 ambulatory FADUMO DEERAINANabila Facility:[facility] Start: 10-03-2021 End: 10-03-2021 ambulatory Isabel Redmond Other [employer] Other Start: 10-03-2021 IBT FOR OBESITY GROU P 2-10 30M Isabel Redmond [facility] Start: 10-01-2021 End: 10-01-2021 ambulatory Brandon Wing Other [employer] Other Start: 10-01-2021 Telephone encounter Brandon iqbal [facility] Start: 09-25-2021 End: 09-25-2021 ambulatory Isabel Redmond Other [employer] Other Start: 09-25-2021 Telephone encounter Brandon Tony [facility] Start: 09-16-2021 End: 09-16-2021 ambulatory Brandon Wing Other [employer] Other Start: 09-16-2021 Telephone encounter Brandon iqbal [facility] Start: 09-13-2021 End: 09-13-2021 ambulatory Brandon Wing Other [employer] Other Start: 09-13-2021 Telephone encounter Brandon iqbal [facility] Start: 09-12-2021 End: 09-12-2021 ambulatory Brandon Wing Other [employer] Other Start: 09-12-2021 Nutrition therapy Brandon Lopez [facility] Start: 08-23-2021 End: 08-23-2021 ambulatory Isabel Redmond Other [employer] Other Start: 08-23-2021 Telephone encounter Isabel Lopez [facility] Start: 08-22-2021 End: 08-22-2021 ambulatory Lisa Johns Other [employer] Other Start: 08-22-2021 Office outpatient vi sit 10 minutes Lisa Johns [facility] [place] Start: 08-22-2021 Telephone encounter Lisa [facility] Start: 08-21-2021 End: 08-21-2021 ambulatory Lisa Johns Other [employer] Other Start: 08-21-2021 Encounter for genera l adult medical examination without abnormal findings Lisa Johns [facility] [place] Start: 08-21-2021 Initial preventive medicine new pt age 18-39yrs Lisa Asad [facility] [place] Start: 05-07-2017 End: 05-08-2017 Ambulatory Flaquito Pablo Facility:[facility] Start: 04-09-2017 End: 04-09-2017 Emergency department patient visit [employer] Facility:[facility] Start: 04-06-2017 End: 04-07-2017 Ambulatory Flaquito De La Cruzt Facility:[facility] Start: 03-06-2017 End: 03-06-2017 Ambulatory Flaquito Turner De [place] Facility:[facility] Start: 03-02-2017 End: 03-02-2017 Ambulatory Flaquito Pablo Facility:[facility] Start: 02-12-2017 End: 02-12-2017 Ambulatory Parisa Peacock Facility:[facility] Start: 01-24-2017 End: 01-24-2017 Emergency department patient visit YOAN IVEY [facility] Procedures Date Procedure Procedure Detail Performing Clinician Start: 10-10-2024 CONSULT TO [facility] [employer] Lloyd Sherwood MD Work Phone: Start: 09-30-2024 Aerobic microbial culture Yoan Ivey MD Work Phone: Start: 09-30-2024 Anaerobic microbial culture Yoan Ivey MD Work Phone: Start: 09-30-2024 CSF (PCR) Yoan Ivey MD Work Phone: Start: 09-30-2024 Gram stain microscopy Yoan Ivey MD Work Phone: Start: 09-30-2024 CT of head without contrast Yoan Ivey MD Work Phone: Start: 09-28-2024 Plain chest X-ray Yoan Ivey MD Work Phone: Start: 06-27-2024 Ultrasonography of left breast PHYSICIAN NO FAMILY Start: 06-27-2024 Bilateral mammography PHYSICIAN NO FAMIL Y Start: 06-14-2024 Oph us dx b-scan&namita a-scan sm pt enctr Lloyd Sherwood MD Work Phone: Start: 06-14-2024 End: 06-14-2024 Visual field xm uni/bi w/interp extended exam Lloyd Sherwood MD Work Phone: Start: 02-08-2024 Computed tomography of thoracic spine without contrast DNP Lisa Johns Work Phone: Start: 02-08-2024 CT cervical spine without contrast DNP Lisa Hudsonle Work Phone: Start: 02-08-2024 CT of head without contrast DNP Lisa Treviñole Work Phone: Start: 02-08-2024 CT of lumbar spine without contrast DNP Lisa Johns Work Phone: Start: 12-25-2023 Computerized ophthalmic imaging optic nerve Tamanna Barry OD Work Phone: Start: 12-23-2023 Duplex scan veins of upper limb DNP Lisa Treviñole Work Phone: Start: 12-23-2023 Plain X-ray of right forearm DNP Lisa Hudsonle Work Phone: Start: 12-23-2023 Plain X-ray of right hand DNP Lisa K aple Work Phone: Start: 10-04-2023 Plain X-ray of right hip DNP Lisa Ka ple Work Phone: Start: 10-04-2023 Computed tomography of abdomen and pelvis with contrast DNP Lisa Treviñole Work Phone: Start: 09-29-2023 Radiologic examination sacroiliac jnts <3 views Alem Cuadra MD Work Phone: Start: 08-25-2023 CSF (PCR) DNP Lisa Johns Work Phone: Start: 08-25-2023 Investigation of transfusion reaction DNP Lisa Hudsonle Work Phone: Start: 08-25-2023 CT cervical spine without contrast DNP Lisa Kaple Work Phone: Start: 08-25-2023 CT of head without contrast DEJAH Johns Work Phone: Start: 08-23-2023 Blood culture for bacteria, including anaerobic screen DNP Lisa Johns Work Phone: Start: 08-23-2023 Respiratory Panel (PCR) DNP Lisa sanchez Work Phone: Start: 08-23-2023 Streptococcus pyogenes antigen assay DNP Lisa Johns Work Phone: Start: 08-23-2023 Plain chest X-ray DNP Lisa Johns Work Phone: Start: 08-23-2023 Computed tomography of abdomen and pelvis with contrast DEJAH Johns Work Phone: Start: 07-29-2023 Laparoscopic cholecystectomy DNP Lisa Johns Work Phone: Start: 07-09-2023 Ct maxillofacial w/contrast material Chance Vera MD Other Phone: Start: 07-09-2023 Basic metabolic panel calcium total Laila A. Penny [employer]ORER-PARIMUTUEL CLERK Other Phone: Start: 06-09-2023 CT of abdomen and pelvis without contrast DEJAH Johns Work Phone: Start: 05-06-2023 SARS-CoV-2, Influenza & RSV (PCR) [facility] Lisa Johns Work Phone: Start: 12-22-2022 Ultrasonography of left breast DEJAH Johns Work Phone: Start: 11-25-2022 Plain X-ray of left hand DNP Lisa Chatman ple Work Phone: Start: 11-25-2022 Plain X-ray of right hand DNP Lisa Nabila aple Work Phone: Start: 07-18-2022 Ecg routine ecg w/least 12 lds i&r only [facility] Provider Start: 07-07-2022 Piperacillin/tazobactam Lisa Johns Other Start: 07-07-2022 Urine culture DNP Lisa Johns Work Phone: Start: 06-26-2022 Plain chest X-ray DNP Lisa Johns Work Phone: Start: 06-18-2022 Bilateral mammography DNP Lisa Johns Work Phone: Start: 06-18-2022 Ultrasonography of left breast DEJAH Johns Work Phone: Start: 04-23-2022 X-ray of lumbar spine, four or more views DNP Lisa Johns Work Phone: Start: 02-10-2022 MRI venography DNP Lisa Johns Work Phone: Start: 01-10-2022 MRI of head DNP Lisa Johns Work Phone: Start: 01-24-2017 VITAL SIGNS YOAN HOY Start: 01-24-2017 TELEMETRY MONITORING YOAN HOY Start: 01-24-2017 EKG 12-LEAD YOAN HOY Aerobic microbial culture DN P Lisa Johns Work Phone: Anaerobic microbial culture DNP Lisa Johns Work Phone: H/O: hysterectomy H/O: hysterectomy DNP J yanick Johns Work Phone: History of cholecystectomy Hx of cholecys tectomy DEJAH Lisa Johns Work Phone: Investigation of transfusion reaction DEJAH Johns Work Phone: Investigation of transfusion reaction DNP Lisa Johns Work Phone: Plan of Treatment Date Care Activity Detail Author Start: 07-29-2035 Shingles (RZV) Vaccine (1 of 2) Shingles (RZV) Vaccine (1 of 2) [employer] 3TIER SYSTEM Start: 01-10-2025 End: 01-10-2025 Patient encounter procedure 01/10/2025 8:30 AM EDT Office Visit [facility] [address] [address] Lloyd Sherwood MD [address] [place] [address] Please schedule this patient for a 4 month return to clinic visit, the indication is IIH Ophthalmology Comment on above: Please schedule this patient for a 4 mon th return to clinic visit, the indication is IIH Start: 01-09-2025 Influenza vaccination Influenza Vaccine (Season Ended) [facility] Start: 12-22-2024 End: 12-22-2024 Patient encounter procedure 12/22/2024 8:40 AM EDT Office Visit Neurology Headache [facility] [address] [place] [address] [place] [address] [place] [address] headache clinic perferred Neurology [facility] Comment on above: headache clinic perferred Start: 12-05-2024 End: 12-05-2024 Patient encounter procedure Ophthalmology Comment on above: Please schedule this patient for a 5 mon th return to clinic visit, the indication is IIH Start: 10-12-2024 End: 10-12-2024 Patient encounter procedure 10/12/2024 11:00 AM EDT Office Visit Neu[facility] [address] [facility] [place] [address] Sergei Harrington APRN.PARIMUTUEL CLERK [address] [place] [address] INFUSION DAY 3 Neurology Comment on above: INFUSION DAY 3 Start: 10-12-2024 End: 10-12-2024 ambulatory 10/12/2024 10:30 AM EDT [facility] Neurology [address] [place] [address] DHE 3 Neurology Comment on above: DHE 3 Start: 10-11-2024 End: 10-11-2024 ambulatory 10/11/2024 10:30 AM EDT [facility] Neurology [address] [place] [address] DHE 2 Neurology Comment on above: DHE 2 Start: 10-10-2024 End: 10-10-2024 Patient encounter procedure 10/10/2024 10:00 AM EDT Office Visit [address] [address] Shirley Mantilla [address] [place] [address] consideration of nerve block for meralgia paresthetica in both legs [facility] Comment on above: consideration of nerve block for meralgi a paresthetica in both legs Start: 10-07-2024 End: 10-07-2024 Follow-up encounter 10/07/2024 7:30 AM EDT [facility] Neurology [address] [place] [address] Zenaida Cabrera DO [address] [place] [address] follow up. Add on per provider Neurology Comment on above: follow up. Add on per provider Start: 09-30-2024 Aerobic Culture Aerobic Culture [facility] Start: 09-30-2024 Anaerobic Culture Anaerobic Culture [facility] Start: 09-30-2024 [facility] Start: 09-30-2024 Cerebrospinal fluid culture [facility] Start: 09-29-2024 End: 09-29-2024 Patient encounter procedure 09/29/2024 4:00 PM EDT Office Visit Cardiology [address] [place] [address] Mejia Bender MD [address] [facility] [place] [address] Phipps Cardiology Comment on above: LASHAUN from Dr. Phipps Start: 09-29-2024 Referral to neurologist [facility] Start: 09-28-2024 Consultation [facility] Start: 09-28-2024 Hospital admission [facility] Start: 09-26-2024 End: 09-26-2024 Follow-up encounter 09/26/2024 1:00 PM EDT [facility] Neurology [address] [place] [address] Zenaida Cabrera DO [address] [facility] [place] [address] Follow up and follow from ED Neurology Comment on above: Follow up and follow from ED Start: 09-23-2024 End: 12-23-2024 Basic metabolic 2000 panel - Serum or Plasma BASIC METABOLIC PANEL Lab Routine IIH (idiopathic intracranial hypertension) Chronic migraine without aura without status migrainosus, not intractable Encounter for medication monitoring Expected: 09/23/2024, Expires: 12/23/[address] [facility] Comment on above: Expected: 09/23/2024, Expires: Start: 09-23-2024 End: 12-23-2024 CBC panel - Blood by Automated count COMPLETE BLOOD COUNT Lab Routine IIH (idiopathic intracranial hypertension) Chronic migraine without aura without status migrainosus, not intractable Encounter for medication monitoring Expected: 09/23/2024, Expires: 12/23/2024 [facility] Work Phone: Comment on above: Expected: 09/23/2024, Expires: Start: 09-09-2024 End: 09-09-2024 Patient encounter procedure Rheumatology Comment on above: Reason for visit: Enlarged liver 1st attempt: LVM in regards to r/s-AV Reason for visit: Enlarged liver Start: 09-02-2024 End: 09-02-2024 Follow-up encounter 09/02/2024 8:45 AM EDT [facility] Neurology Headache [facility] [address] [place] [address] Janee Montero, [employer]ORY LABORER.PARIMUTUEL CLERK [address] [place] [address] Follow up Neurology Headache [facility] Comment on above: Follow up Start: 09-01-2024 End: 09-01-2024 ambulatory 09/01/2024 3:00 PM EDT [facility] Neurology [address] [place] [address] Zenaida Cabrera, [address] [place] [address] Return in about 3 months (around 09/01/2024). Neurology Comment on above: Return in about 3 months (around 09/02/19). Start: 08-23-2024 End: 08-23-2024 Patient encounter procedure 08/23/2024 3:00 PM EDT Office Visit Internal Medicine [place] [address] [facility] [place], [place] [id number] Kaycee Blount APRN.PARIMUTUEL CLERK [address] [place] [address] Dx: Kidney stone [N20.0]; IIH (idiopathic intracranial hypertension) [G93.2] [facility] [place] Comment on above: Dx: Kidney stone [N20.0]; IIH (idiopathi c intracranial hypertension) [G93.2] Start: 08-16-2024 End: 08-16-2024 ambulatory Neurology [facility] Comment on above: Disturbance of skin sensation [R20.9] numbness and tinglin g Start: 08-15-2024 End: 08-15-2024 ambulatory 08/15/2024 8:45 AM EDT [facility] Neurology [address] [place] [address] Zenaida Cabrera, DO [address] [place] [address] Return in about 3 months (around 09/01/2024). Neurology Comment on above: Return in about 3 months (around 09/02/19). Start: 08-05-2024 End: 11-04-2024 RADHA BY [facility] Comment on above: Expected: 08/05/2024, Expires: Start: 08-05-2024 End: 11-04-2024 Cobalamin (Vitamin B12) [Mass/volume] in Serum or Plasma [facility] Comment on above: Expected: 08/05/2024, Expires: Start: 08-05-2024 End: 11-04-2024 Extractable nuclear Ab panel - Serum [facility] Comment on above: Expected: 08/05/2024, Expires: Start: 08-05-2024 End: 11-04-2024 Hemoglobin A1c in Blood [facility] Work Phone: Comment on above: Expected: 08/05/2024, Expires: Start: 08-05-2024 End: 11-04-2024 KAPPA/TROY REDMOND,SER [facility] Comment on above: Expected: 08/05/2024, Expires: Start: 08-05-2024 End: 11-04-2024 PROT ELECT SERUM WITH ERROL AND INTERP [facility] Comment on above: Expected: 08/05/2024, Expires: Start: 07-29-2024 End: 07-29-2024 Patient encounter procedure 07/29/2024 2:00 PM EDT Office Visit Pain Management [address] [place] [address] Cassandra Tinsley, AMISHA.PARIMUTUEL CLERK [address] [place] [address] 6 week follow up Pain Management Comment on above: 6 week follow up Start: 07-22-2024 End: 07-22-2024 ambulatory 07/22/2024 5:00 PM EDT [facility] Neurology Headache [facility] [address] [place] [address] [place] [address] [place] [address] Fol up on migraines Neurology Headache [facility] Comment on above: Fol up on migraines Start: 07-15-2024 End: 07-15-2024 Patient encounter procedure 07/15/2024 2:00 PM EST Office Visit Pain Management [address] [place] [address] Cassandra Tinsley, AMISHA.PARIMUTUEL CLERK [address] [place] [address] 6 week follow up Pain Management Comment on above: 6 week follow up Start: 07-11-2024 End: 07-11-2024 ambulatory 07/11/2024 9:30 AM EST [facility] Emergency [facility] Health Pain Management [address] [place] [address] Cassandra Tinsley, AMISHA.PARIMUTUEL CLERK [address] [place] [address] MRI FU Pain Management Comment on above: MRI FU Start: 07-03-2024 End: 07-03-2024 Patient encounter procedure 07/03/2024 10:00 AM EST Appointment Radiology [address] [place] [address] MRI BRAIN WO IVCON Radiology Comment on above: MRI BRAIN WO IVCON Start: 07-01-2024 End: 07-01-2024 Patient encounter procedure Ophthalmology Comment on above: 6 months 30-2, DFE and RNFL/GCA Kidney stone [N20.0] Start: 06-14-2024 End: 09-13-2024 C reactive protein [Mass/volume] in Serum or Plasma [facility] Work Phone: Comment on above: Expected: 06/14/2024, Expires: Start: 06-14-2024 End: 09-13-2024 Erythrocyte sedimentation rate [facility] Comment on above: Expected: 06/14/2024, Expires: Start: 06-14-2024 End: 06-14-2024 Patient encounter procedure Ophthalmology Comment on above: IIH - Being referred by Dr. Goldberg follow up Start: 06-03-2024 End: 06-03-2024 Patient encounter procedure 06/03/2024 9:30 AM EST Office Visit Pain Management [address] [place] [address] Cassandra Tinsley, AMISHA.PARIMUTUEL CLERK [address] [place] [address] neck pain Pain Management Comment on above: neck pain Start: 06-03-2024 End: 06-03-2024 ambulatory 06/03/2024 8:00 AM EST [facility] Department Health Neurology [address] [place] [address] Zenaida Cabrera, DO [address] [place] [address] Migraines Neurology Comment on above: Migraines Start: 05-27-2024 End: 05-27-2024 Patient encounter procedure Neurology Pain Comment on above: Polyarthralgia [M25.50] Start: 05-20-2024 End: 05-20-2024 Patient encounter procedure 05/20/2024 9:00 AM EST Office Visit Pain Management [address] [place] [address] [place] [address] [address] Back Pain Pain Management Comment on above: Back Pain Start: 04-22-2024 End: 04-22-2024 ambulatory 04/22/2024 11:00 AM EST [facility] Pain Recovery [address] [place] [id number] Tristan Ness, PhD [address] [place] [address] Polyarthralgia [M25.50] Pain Recovery Comment on above: Polyarthralgia [M25.50] Start: 04-16-2024 End: 04-16-2024 Patient encounter procedure 04/16/2024 10:30 AM EST Office Visit Pain Management [address] [facility] [place] [address] [place] [address] [place] [address] Back Pain Pain Management Comment on above: Back Pain Start: 04-05-2024 End: 04-05-2024 ambulatory 04/05/2024 7:00 AM EST [facility] Neurology [address] [place] [address] Emilee Roca, [employer]ARCH [employer]CTORY LABORER.PARIMUTUEL CLERK [address] [place] [address] II Neurology Comment on above: IIH Start: 03-28-2024 End: 03-28-2024 Patient encounter procedure 03/28/2024 8:30 AM EST Office Visit Pain Management [address] [place] [address] [place] [address] [address] Back Pain Pain Management Comment on above: Back Pain Start: 02-24-2024 End: 02-24-2024 Patient encounter procedure 02/24/2024 10:00 AM EDT Office Visit Neurology Pain [address] [place] [address] [place] [address] [place] [address] Chronic pain syndrome [G89.4] Neurology Pain Comment on above: Chronic pain syndrome [G89.4] Start: 02-01-2024 End: 05-02-2024 Basic metabolic 2000 panel - Serum or Plasma BASIC METABOLIC PANEL Lab Routine [facility] (idiopathic intracranial hypertension) Expected: 02/01/2024, Expires: 05/02/2024 [facility] Work Phone: Comment on above: Expected: 02/01/2024, Expires: Start: 01-10-2024 Covid-19 Vaccine ( season) Covid-19 Vaccine () [facility] Start: 01-10-2024 Influenza vaccination [facility] Start: 01-01-2024 End: 01-01-2024 ambulatory 01/01/2024 8:00 AM EDT [facility] Neurology [address] [place] [address] Emilee Roca, AMISHA.PARIMUTUEL CLERK [address] [place] [address] II Neurology Comment on above: IIH Start: 12-23-2023 Duplex scan veins of upper limb US venous duplex UE RT [facility] Start: 12-23-2023 US Upper extremity vein - right [facility] Start: 11-06-2023 End: 11-06-2023 Patient encounter procedure 11/06/2023 9:00 AM EDT Office Visit OPHT Ophthalmology [address] [place] [address] Tamanna Barry, OD [address] [place] [address] I think to check my optic nerves due to IIH Ophthalmology Comment on above: I think to check my optic nerves due to IIH Start: 10-12-2023 End: 10-12-2023 ambulatory 10/12/2023 2:30 PM EDT [facility] Rheumatology [address] [address] Alem Cuadra MD [address] [place] [address] Return in about 13 days (around 10/12/2023) for virtual. Rheumatology Comment on above: Return in about 13 days (around 10/12/2023 ) for virtual. Start: 10-12-2023 End: 01-11-2024 C reactive protein [Mass/volume] in Serum or Plasma C-REACTIVE PROTEIN Lab Routine Polyarthralgia Expected: 10/12/2023, Expires: 01/11/2024 [facility] Work Phone: Comment on above: Expected: 10/12/2023, Expires: Start: 10-12-2023 End: 01-11-2024 Erythrocyte sedimentation rate SEDIMENTATION RATE, WESTERGREN Lab Routine Polyarthralgia Expected: 10/12/2023, Expires: 01/11/[address] [facility] Comment on above: Expected: 10/12/2023, Expires: 4 Start: 10-09-2023 End: 10-09-2023 ambulatory 10/09/2023 8:00 AM EDT [facility] Neurology Headache [facility] [address] [place] [address] [place] [address] [place] [address] Idiopathic intercranial hypertension, need to restart medication Neurology Headache [facility] Comment on above: Idiopathic intercranial hypertension, ne ed to restart medication Start: 10-04-2023 Plain X-ray of right hip XR hip RT min 2V(w/wo pelvis)* [facility] Start: 10-04-2023 XR Hip - right 2 Views [facility] Start: 09-29-2023 End: 12-29-2023 RADHA BY IFA SCREEN [facility] Comment on above: Expected: 09/29/2023, Expires: 4 Start: 09-29-2023 End: 12-29-2023 Cyclic citrullinated peptide IgG Ab [Units/volume] in Serum or Plasma [facility] Work Phone: Comment on above: Expected: 09/29/2023, Expires: 4 Start: 09-29-2023 End: 12-29-2023 DNA double strand Ab [Units/volume] in Serum by Immunoassay [facility] Comment on above: Expected: 09/29/2023, Expires: 4 Start: 09-29-2023 End: 12-29-2023 Extractable nuclear Ab panel - Serum [facility] Comment on above: Expected: 09/29/2023, Expires: 4 Start: 09-29-2023 End: 12-29-[address] [facility] Comment on above: Expected: 09/29/2023, Expires: Start: 09-29-2023 End: 12-29-2023 PROTEIN ELECTROPHORESIS SERUM W/INTERP [facility] Comment on above: Expected: 09/29/2023, Expires: 4 Start: 08-25-2023 Cerebrospinal fluid culture [facility] Start: 08-23-2023 Bacteria identified in Blood by Culture [facility] Start: 08-23-2023 Blood culture for bacteria, including anaerobic screen Blood Culture [facility] Start: 07-29-2023 End: 07-29-2023 [facility] Start: 06-09-2023 CT Abdomen and Pelvis WO contrast [facility] Start: 06-09-2023 CT of abdomen and pelvis without contrast CT abdomen pelvis wo con [facility] Start: 05-14-2023 Urine microalbumin profile DTaP,Tdap,Td Vaccine (2 - Td or Tdap) [facility] Start: 05-11-2023 Behavioral Health Screening Behavioral Health Screening [facility] Start: 01-09-2023 Covid-19 Vaccine ( season) Covid-19 Vaccine () [facility] Start: 01-09-2023 Influenza vaccination Influenza Vaccine (#1) [facility] Start: 07-18-2022 End: 09-17-2022 Lipid 1996 panel - Serum or Plasma LIPID PANEL BASIC Lab Routine Atypical chest pain Expected: 07/18/2022, Expires: 09/17/2022 [facility] Work Phone: Comment on above: Expected: 07/18/2022, Expires: 3 Start: 05-11-2022 DEPRESSION ASSESSMENT DEPRESSION ASSESSMENT [facility] Start: 01-23-2022 Borrelia burgdorferi DNA assay [facility] Work Phone: Start: 01-23-2022 Cerebrospinal fluid culture [facility] Work Phone: Start: 01-09-2022 Influenza vaccination INFLUENZA (#1) [facility] Start: 07-29-2015 HPV TESTING HPV TESTING [facility] Start: 07-29-2015 Screening for malignant neoplasm of cervix HPV Testing [facility] Start: 2012 HPV Vaccine (optional start 27-45 years) HPV Vaccine (optional start 27-45 years) [facility] Start: 2006 PAP TESTING PAP TESTING [facility] Start: 2006 Screening for malignant neoplasm of cervix [facility] Start: 2004 Hepatitis A (HAV) Vaccine (optional start 19+ years) Hepatitis A (HAV) Vaccine (optional start 19+ years) [facility] Start: 2004 Hepatitis B Vaccine (1 of 3 - 19+ 3-dose series) Hepatitis B Vaccine (1 of 3 - 19+ 3-dose series) [facility] Start: 2004 Pneumococcal vaccination Pneumococcal Vaccine (1 of 2 - PCV) [facility] Start: 2004 Urine microalbumin profile DTAP,TDAP,TD (1 - Tdap) [facility] Start: 07-29-2003 Anxiety Screening Anxiety Screening [facility] Start: 07-29-2003 Depression Screening Depression Screening [facility] Start: 07-29-2003 HEPATITIS C SCREENING HEPATITIS C SCREENING [facility] Start: 07-29-2003 Hepatitis C screening [facility] Start: 07-29-2003 HIV SCREENING HIV SCREENING [facility] Start: 07-29-2003 HIV screening HIV Screening [facility] Start: 07-29-2003 Tetanus + diphtheria + acellular pertussis vaccine (product) Tdap Booster [facility] Start: 2000 HIV screening HIV Test [facility] Start: 07-29-1991 Pneumococcal vaccination Pneumococcal Vaccine (1 of 2 - PCV) [facility] Start: 01-28-1986 COVID-19 VACCINE (#1) COVID-19 VACCINE (#1) [facility] Start: 1985 HEPATITIS B (1 of 3 - 3-dose series) HEPATITIS B (1 of 3 - 3-dose series) [facility] Start: 1985 Hepatitis B vaccination Hepatitis B (HBV) Vaccine (1 of 3 - 3-dose series) [facility] Start: 1985 Screening for malignant neoplasm of breast Mammography shared decision making (35 through 39 years) [facility] Angiotensin converti ng enzyme [Enzymatic activity/volume] in Cerebral spinal fluid [facility] Work Phone: Bacteria identified in Unspecified specimen by Aerobe culture [facility] Work Phone: Bacteria identified in Unspecified specimen by Aerobe culture [facility] Bacteria identified in Unspecified specimen by Anaerobe culture [facility] Work Phone: Bacteria identified in Unspecified specimen by Anaerobe culture [facility] Bacteria identified in Urine by Culture [facility] Borrelia burgdorferi DNA assay [facility] Work Phone: End: 07-19-2023 ECG COMPLETE ECG COMPLETE ECG Routine Atypical chest pain 1 Occurrences starting 07/18/2022 until 07/19/2023 [facility] Work Phone: Comment on above: 1 Occurrences starting 07/18/2022 until 07/19/2023 ECG COMPLETE ECG COMPLETE ECG 07/18/2022 11:20 AM EST [facility] End: 07-19-2023 Echocardiography ECHO Cardiology Routine Atypical chest pain 1 Occurrences starting 07/18/2022 until 07/19/2023 [facility] Work Phone: Comment on above: 1 Occurrences starting 07/18/2022 until 07/19/2023 End: 08-05-2025 EMG(NEURO/NI) [facility] Comment on above: 1 Occurrences starting 08/05/2024 until 08/05/2025 Microscopic observat ion [Identifier] in Unspecified specimen by Gram stain [facility] Work Phone: End: 07-03-2025 MR Brain WO contrast MRI BRAIN WO IVCON Radiology Routine IIH (idiopathic intracranial hypertension) 1 Occurrences starting 06/03/2024 until 07/03/2025 [facility] Work Phone: Comment on above: 1 Occurrences starting 06/03/2024 until 07/03/2025 End: 07-14-2025 MR Cervical spine WO contrast MRI CERVICAL SPINE WO IVCON Radiology Routine Chronic bilateral low back pain with bilateral sciatica Cervical radiculopathy Cervical spondylolysis 1 Occurrences starting 06/14/2024 until 07/14/[address] [facility] Comment on above: 1 Occurrences starting 06/14/2024 until 07/14/2025 End: 07-14-2025 MR Lumbar spine WO contrast MRI LUMBAR SPINE WO IVCON Radiology Routine Chronic bilateral low back pain with bilateral sciatica 1 Occurrences starting 06/14/2024 until 07/14/2025 [facility] Work Phone: Comment on above: 1 Occurrences starting 06/14/2024 until 07/14/2025 End: 07-03-2025 MRA Head veins WO and W contrast IV MRV BRAIN WO/W IVCON Radiology Routine IIH (idiopathic intracranial hypertension) 1 Occurrences starting 06/03/2024 until 07/03/[address] [facility] Comment on above: 1 Occurrences starting 06/03/2024 until 07/03/2025 Patient Education [facility] Work Phone: Patient referral [facility] Work Phone: RF Guidance for inje ction of Lumbar spine IR LUMBAR PUNCTURE DIAGNOSTIC (MC) Radiology Routine IIH (idiopathic intracranial hypertension) Ordered: 09/23/2024 [facility] Work Phone: Comment on above: Ordered: 09/23/2024 Therapeutic spinal puncture drainage csf LUMBAR PUNCTURE Procedures Routine IIH (idiopathic intracranial hypertension) Ordered: 09/23/[address] [facility] Comment on above: Ordered: 09/23/2024 End: 06-19-2025 XR Lumbar spine AP and Lateral XR LUMBAR LIMITED 2V AP/LAT Radiology Routine Lumbosacral spondylosis without myelopathy Degeneration of intervertebral disc of lumbar region with discogenic back pain and lower extremity pain Chronic bilateral low back pain with bilateral sciatica 1 Occurrences starting 05/20/2024 until 06/19/2025 [facility] Work Phone: Comment on above: 1 Occurrences starting 05/20/2024 until 06/19/2025 [facility] Immunizations Immunization Date Immunization Notes Care Provider Fa cility NEGATED: Highlighted row has not occurred!02-13-2022 influenza, seasonal, injectable Patient Objection Lisa Johns Other [employer] Other Payers Date Payer Category Payer Blue [employer] Blue Shield BLUE CARD PPO OOS [id number] 2024 Unknown [id number] 2022 Medicaid [id number] 2022 Unknown [id number] 2014 Unknown [id number] 1985 Unknown [id number] [id number]. 593 1985 Unknown [id number] 2.16.840.1.453772.3.579.2. 593 1985 Unknown [id number] 2.16.840.1.888559.3.579.2. 593 1985 Unknown [id number] 2.16.840.1.042226.3.579.2. 356 1985 Unknown [id number] 2.16.840.1.067419.3.579.2. 356 1985 Unknown [id number] 2.16.840.1.161995.3.579.2. 732 1985 Unknown [id number] 2.16.840.1.105457.3.579.2. 732 1985 Unknown [id number] 2.16.840.1.927786.3.579.2. 1259 1985 Unknown [id number] 2.16.840.1.946429.3.579.2. 1259 1985 Unknown [id number] 2.16.840.1.987656.3.579.2. 1259 1985 Unknown [id number] 2.16.840.1.255205.3.579.2. 1259 1985 Unknown [id number] 2.16.840.1.278442.3.579.2. [address] [facility] [id number] 1959 Unknown [id number] Medicaid [id number] Self-pay Self Pay [id number] Unknown Regular Auto/Liability [id number] Social History Date Type Detail Facility Unknown if ever smoked [employer] Other Start: 07-18-2022 End: 09-29-2023 Sex Assigned At [facility] Start: 03-24-2021 End: 10-04-2024 Tobacco smoking status NHIS Ex-smoker (finding) [facility] Start: 1985 Sex Assigned At Female [facility] Tobacco smoking status MOIS Tobacco smoking consumption unknown [facility] Start: 06-09-2023 End: 08-25-2023 Tobacco smoking status MOIS Current some day smoker [facility] Start: 07-29-2023 End: 10-04-2023 Tobacco smoking status NHIS Smoker (finding) [facility] Start: 07-18-2022 End: 09-29-2023 History of Social function [facility] National Score (1-100), lower number is lower risk [address] [facility] Start: 07-03-2022 Gender identity Identifies as female gender (finding) [facility] Start: 09-29-2023 End: 02-24-2024 Tobacco smoking status MOIS Smokes tobacco daily [facility] History of tobacco use Cigarette Smoker [facility] Start: 09-29-2023 End: 10-10-2024 Alcohol intake Ex-drinker (finding) [facility] Start: 09-29-2023 Tobacco Comment 1 pack every [address] [facility] Start: 10-08-2023 End: 02-24-2024 Tobacco use and exposure Smokeless tobacco non-user [facility] Start: 02-08-2024 End: 02-08-2024 Tobacco smoking status NHIS Never smoked tobacco (finding) [facility] Start: 03-19-2024 End: 10-04-2024 Sex Female (finding) [facility] Start: 1985 Sex Assigned At Not on file [facility] Work Phone: Start: 09-29-2024 SDOH Follow up SDOH Follow up [facility] Work Phone: NEGATED: Highlighted row [facility] Goals Date Patient Goal Desired Activity /State Functional Status Date Assessment Result Facility 09-30-2024 Functional status Patient at Baseline [facility] Work Phone: Mental Status Date Assessment Result Facility 09-30-2024 Cognitive function Cognitive Sta tus Patient at Baseline [facility] Work Phone: Clinical Notes 08-21-2021 to 10-13-2024 Telephone Encounter - Pavel King - 10/13/2024 4:33 PM EDTTelephone Encounter - Pavel King - 10/13/2024 4:33 PM Sergei De Jesus APRN.[facility] - 10/12/2024 11:00 AM EDTPatient Instructions Note Date & Type Note Facility 10-13-2024 Telephone encounter Note Received outside medical records Uploaded into scanned docs [facility] 10-13-2024 Miscellaneous Notes Received outside medical records Uploaded into scanned docs documented in this encounter [facility] 10-12-2024 History of Presen t illness Narrative Images from the original note were not included. [facility] Note Subjective: Karolina Nicole is a 39 year old year old female presenting for day 3 of infusions. Therapy Plan: DHE zofran magnesium robaxin New health conditions since orders were placed: No Cardiovascular risk factors: None Triptan dose in the last 24 hours: No Last muscle relaxer dose: No Last NSAID dose: No Response to infusions: Patient tolerating infusion without side effects. Current Preventative: diamox, qulipta Current abortive: tizanidine Labs: Latest Ref Rng & Units 09/22/2024 CBC WBC 3.70 - 11.00 k/uL 14.59 RBC 3.90 - 5.20 m/uL 4.23 Hemoglobin 11.5 - 15.5 g/dL 13.3 Hematocrit 36.0 - 46.0 % 36.2 MCV 80.0 - 100.0 fL 85.6 MCH 26.0 - 34.0 pg 31.4 MCHC 30.5 - 36.0 g/dL 36.7 RDW-CV 11.5 - 15.0 % 12.1 Platelet Count 150 - 400 k/uL 330 MPV 9.0 - 12.7 fL 9.5 Baso% % 0.1 Abs Neut (ANC) 1.45 - 7.50 k/uL 12.90 Abs Lymph 1.00 - 4.00 k/uL 1.24 Abs [place] <0.87 k/uL 0.29 Abs Eosin <0.46 k/uL <0.03 Abs Baso <0.11 k/uL <0.03 NRBC /100 WBC 0.0 Latest Ref Rng & Units 09/22/2024 CMP Sodium 136 - 144 mmol/L 138 Potassium 3.7 - 5.1 mmol/L 3.6 Chloride 98 - 107 mmol/L 109 CO2 22 - 30 mmol/L 14 Glucose 74 - 99 mg/dL 162 BUN 7 - 21 mg/dL 20 Creatinine 0.58 - 0.96 mg/dL 0.75 EGFR >=60 mL/min/1.73m 104 Calcium 8.5 - 10.2 mg/dL 9.3 ALLERGIES Allergen Reactions Adhesive Rash Latex Rash Levaquin [Levofloxa* Swelling Swelling tongue Morphine Angioedema Says tongue swells up, vomits, chest pain Nickel Rash, Unknown Oxycodone Rash Oxycodone-Acetamino* Rash Silk Other: See Comments Silk tape Sulfadiazine Rash Sulfamethoxazole-Tr* Swelling Adhesive Tape (Cammie* Hives, Itching Current Medications: tiZANidine (ZANAFLEX) 4 mg tablet^1 tablet at bedtime as needed Orally Once a day^Disp: ^Rfl: calcium 26/magnesium 15/zinc ([id number] COMPLEX ORAL)^Take by mouth once daily. Patient does not know dosing^Disp: ^Rfl: amoxicillin-clavulanate potassium (AUGMENTIN) 875-125 mg per tablet^Take 1 tablet by mouth two times a day.^Disp: ^Rfl: divalproex ER (DEPAKOTE ER) 500 mg 24 hr tablet^Take 2 tablets by mouth once daily for 5 days, THEN 1 tablet once daily for 5 days.^Disp: 15 tablet^Rfl: 0 atogepant (QULIPTA) 60 mg tablet^Take 1 tablet by mouth once daily.^Disp: 30 tablet^Rfl: 2 acetaZOLAMIDE SR (DIAMOX SEQUELS) 500 mg capsule^Take 1 capsule by mouth two times a day.^Disp: 60 capsule^Rfl: 4 estrogens, conjugated (PREMARIN ORAL)^Take by mouth.^Disp: ^Rfl: POTASSIUM-99 ORAL^Take by mouth.^Disp: ^Rfl: estradiol (ESTRACE) 0.5 mg tablet^Take 1 tablet by mouth once daily.^Disp: ^Rfl: hydrOXYzine pamoate (VISTARIL) 50 mg capsule^Take 50 mg by mouth daily at bedtime.^Disp: ^Rfl: dextroamphetamine-amphetamine (ADDERALL) 20 mg tablet^Take 20 mg by mouth once daily.^Disp: ^Rfl: (Patient taking differently: Take 20 mg by mouth two times a day.) Zinc Acetate, Oral, 50 mg (zinc) cap^Take 50 capsules by mouth once daily.^Disp: ^Rfl: (Patient not taking: Reported on 10/10/2024) Cetirizine 10 mg cap^^Disp: ^Rfl: mv,calcium,min/iron/folic/vitK (MULTI FOR HER ORAL)^^Disp: ^Rfl: montelukast (SINGULAIR) 10 mg tablet^Montelukast Active 10 MG PO Daily March 24, 2021 12:00am^Disp: ^Rfl: (Patient not taking: Reported on 10/10/2024) Review of Systems: Review of system: Patient reports no change from the prior visit. Objective: VS: see infusion note for vital signs General: well appearing, in no acute distress, alert Neurological: Pain Behaviors: no pain behaviors observed Mental Status: Alert and oriented to person, place and time. Affect is normal and appropriate. Speech is spontaneous and fluent without dysarthria, normal in rate, volume and articulation, and clear, coherent, and relevant. Short and custodial memory, cognition and general fund of knowledge are good. Attention span and concentration are good. Cranial Nerves: VII-face is symmetric without evidence of weakness. VIII-hearing intact. Assessment: (G43.E11) Intractable chronic migraine with aura with status migrainosus (primary encounter diagnosis) (G93.2) Idiopathic intracranial hypertension Plan: Karolina Nicole is a 39 year old year old female, with a history of IIH, chronic migraines and cervicalgia following up today for day 3 of infusions. Follow up plan: Hold Triptans on infusion days or within 24 hours of infusion. Hold Muscle relaxers on infusion days or within 24 hours of infusion. Level of service: Est level 2 (10-19 min). Time spent 15 min on the day of service, which included preparing to see the patient, [id number] patient care, completing clinical documentation, obtaining and/or reviewing separately obtained history, performing a medically appropriate examination, and counseling and educating the patient/family/caregiver. Sergei Harrington APRN.[facility] Headache Section [facility] October 12, 2024 documented in this encounter [facility] 10-12-2024 Note HNO ID: [id number] Author: SERGEI HARRINGTON APRN.[facility] Service: ? Author Type: Nurse Practitioner Type: Progress Notes Filed: 10/12/2024 11:15 Note Text: [facility] Note Subjective: Karolina Nicole is a 39 year old year old female presenting for day 3 of infusions. Therapy Plan: DHE zofran magnesium robaxin New health conditions since orders were placed: No Cardiovascular risk factors: None Triptan dose in the last 24 hours: No Last muscle relaxer dose: No Last NSAID dose: No Response to infusions: Patient tolerating infusion without side effects. Current Preventative: diamox, qulipta Current abortive: tizanidine Labs: Latest Ref Rng AND Units 09/22/2024 CBC WBC 3.70 - 11.00 k/uL 14.59 RBC 3.90 - 5.20 m/uL 4.23 Hemoglobin 11.5 - 15.5 g/dL 13.3 Hematocrit 36.0 - 46.0 % 36.2 MCV 80.0 - 100.0 fL 85.6 MCH 26.0 - 34.0 pg 31.4 MCHC 30.5 - 36.0 g/dL 36.7 RDW-CV 11.5 - 15.0 % 12.1 Platelet Count 150 - 400 k/uL 330 MPV 9.0 - 12.7 fL 9.5 Baso% % 0.1 Abs Neut (ANC) 1.45 - 7.50 k/uL 12.90 Abs Lymph 1.00 - 4.00 k/uL 1.24 Abs [place] <0.87 k/uL 0.29 Abs Eosin <0.46 k/uL <0.03 Abs Baso <0.11 k/uL <0.03 NRBC /100 WBC 0.0 Latest Ref Rng AND Units 09/22/2024 CMP Sodium 136 - 144 mmol/L 138 Potassium 3.7 - 5.1 mmol/L 3.6 Chloride 98 - 107 mmol/L 109 CO2 22 - 30 mmol/L 14 Glucose 74 - 99 mg/dL 162 BUN 7 - 21 mg/dL 20 Creatinine 0.58 - 0.96 mg/dL 0.75 EGFR >=60 mL/min/1.73m? 104 Calcium 8.5 - 10.2 mg/dL 9.3 ALLERGIES Allergen Reactions Adhesive Rash Latex Rash Levaquin [Levofloxa* Swelling Swelling tongue Morphine Angioedema Says tongue swells up, vomits, chest pain Nickel Rash, Unknown Oxycodone Rash Oxycodone-Acetamino* Rash Silk Other: See Comments Silk tape Sulfadiazine Rash Sulfamethoxazole-Tr* Swelling Adhesive Tape (Cammie* Hives, Itching Current Medications: tiZANidine (ZANAFLEX) 4 mg tablet1 tablet at bedtime as needed Orally Once a dayDisp: Rfl: calcium 26/magnesium 15/zinc ([id number] COMPLEX ORAL)Take by mouth once daily. Patient does not know dosingDisp: Rfl: amoxicillin-clavulanate potassium (AUGMENTIN) 875-125 mg per tabletTake 1 tablet by mouth two times a day.Disp: Rfl: divalproex ER (DEPAKOTE ER) 500 mg 24 hr tabletTake 2 tablets by mouth once daily for 5 days, THEN 1 tablet once daily for 5 days.Disp: 15 tabletRfl: 0 atogepant (QULIPTA) 60 mg tabletTake 1 tablet by mouth once daily.Disp: 30 tabletRfl: 2 acetaZOLAMIDE SR (DIAMOX SEQUELS) 500 mg capsuleTake 1 capsule by mouth two times a day.Disp: 60 capsuleRfl: 4 estrogens, conjugated (PREMARIN ORAL)Take by mouth.Disp: Rfl: POTASSIUM-99 ORALTake by mouth.Disp: Rfl: estradiol (ESTRACE) 0.5 mg tabletTake 1 tablet by mouth once daily.Disp: Rfl: hydrOXYzine pamoate (VISTARIL) 50 mg capsuleTake 50 mg by mouth daily at bedtime.Disp: Rfl: dextroamphetamine-amphetamine (ADDERALL) 20 mg tabletTake 20 mg by mouth once daily.Disp: Rfl: (Patient taking differently: Take 20 mg by mouth two times a day.) Zinc Acetate, Oral, 50 mg (zinc) capTake 50 capsules by mouth once daily.Disp: Rfl: (Patient not taking: Reported on 10/10/2024) Cetirizine 10 mg capDisp: Rfl: mv,calcium,min/iron/folic/vitK (MULTI FOR HER ORAL)Disp: Rfl: montelukast (SINGULAIR) 10 mg tabletMontelukast Active 10 MG PO Daily March 24, 2021 12:00amDisp: Rfl: (Patient not taking: Reported on 10/10/2024) Review of Systems: Review of system: Patient reports no change from the prior visit. Objective: VS: see infusion note for vital signs General: well appearing, in no acute distress, alert Neurological: Pain Behaviors: no pain behaviors observed Mental Status: Alert and oriented to person, place and time. Affect is normal and appropriate. Speech is spontaneous and fluent without dysarthria, normal in rate, volume and articulation, and clear, coherent, and relevant. 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 Attention span and concentration are good. Cranial Nerves: VII-face is symmetric without evidence of weakness. VIII-hearing intact. Assessment: (G43.E11) Intractable chronic migraine with aura with status migrainosus (primary encounter diagnosis) (G93.2) Idiopathic intracranial hypertension Plan: Karolina Nicole is a 39 year old year old female, with a history of IIH, chronic migraines and cervicalgia following up today for day 3 of infusions. Follow up plan: Hold Triptans on infusion days or within 24 hours of infusion. Hold Muscle relaxers on infusion days or within 24 hours of infusion. Level of service: Est level 2 (10-19 min). Time spent 15 min on the day of service, which included preparing to see the patient, [id number] patient care, completing clinical documentation, obtaining and/or reviewing separately obtained history, performing a medically appropriate examination, and counseling and educating (more content not included)... [facility] 10-12-2024 Note HNO ID: [id number] Author: DEONTE LUIS RN Service: ? Author Type: Registered Nurse Type: Progress Notes Filed: 10/12/2024 13:12 Note Text: Karolina arrived to the infusion suite rating her pain 2/10 without nausea/ dizziness. She was educated on medications to be administered per therapy plan and verbally agreed to proceed with headache infusions. Road Test Examiner confirmed. First 1/4 dose complete and pt is c/o some chest discomfort/SOB. Bp 107/69, HR 71. Magnesium started. LIP aware. Mg finished, patient explained chest discomfort resolved completely. Patient asked by RN if they would like to continue DHE (per LIP approval), patient declined. Mg completed, patient rated pain 1/10 with no nausea/ dizziness by end of infusion. She endorsed her chest tightness/ SOB completely resolved. Discharged to river driver. [facility] 10-12-2024 History of Presen t illness Narrative Karolina arrived to the infusion suite rating her pain 2/10 without nausea/ dizziness. She was educated on medications to be administered per therapy plan and verbally agreed to proceed with headache infusions. Road Test Examiner confirmed. First 1/4 dose complete and pt is c/o some chest discomfort/SOB. Bp 107/69, HR 71. Magnesium started. LIP aware. Mg finished, patient explained chest discomfort resolved completely. Patient asked by RN if they would like to continue DHE (per LIP approval), patient declined. Mg completed, patient rated pain 1/10 with no nausea/ dizziness by end of infusion. She endorsed her chest tightness/ SOB completely resolved. Discharged to river driver. documented in this encounter [facility] 10-11-2024 Note HNO ID: [id number] Author: KERLINE STANFORD RN Service: ? Author Type: Registered Nurse Type: Progress Notes Filed: 10/11/2024 13:49 Note Text: 1045: Patient in for second day of IV infusions. Patient rated headache 2/10. Patient denied nausea and dizziness. Patient educated on medications to be administered. Patient verbalized understanding and agreed to proceed with infusions. Pt does have a river driver. 1212: During second half of DHE, pt stated she is feeling chest discomfort (tightness/pressure). DHE infusion stopped. IV fluids running. Jonnie Shaver NP notified and advised to hold the rest of DHE today. Pt also moderately nauseated. PRN zofran administered. Pt requesting DHE to be switched back to quarter doses for day 3 infusion. Jonnie Shaver NP notified and ordered switched. 1229: Chest discomfort almost completely resolved. Magnesium infusion started. 1345: Pts infusions complete. Pt stated total relief of chest discomfort. Pt rated headache 0/10. Pt denied nausea and dizziness. Pt discharged from treatment room. [facility] 10-11-2024 History of Presen t illness Narrative 1045: Patient in for second day of IV infusions. Patient rated headache 2/10. Patient denied nausea and dizziness. Patient educated on medications to be administered. Patient verbalized understanding and agreed to proceed with infusions. Pt does have a river driver. 1212: During second half of DHE, pt stated she is feeling chest discomfort (tightness/pressure). DHE infusion stopped. IV fluids running. Jonnie Shaver NP notified and advised to hold the rest of DHE today. Pt also moderately nauseated. PRN zofran administered. Pt requesting DHE to be switched back to quarter doses for day 3 infusion. Jonnie Shaver NP notified and ordered switched. 1229: Chest discomfort almost completely resolved. Magnesium infusion started. 1345: Pts infusions complete. Pt stated total relief of chest discomfort. Pt rated headache 0/10. Pt denied nausea and dizziness. Pt discharged from treatment room. documented in this encounter [facility] 10-10-2024 Note HNO ID: [id number] Author: DEONTE LUIS RN Service: ? Author Type: Registered Nurse Type: Progress Notes Filed: 10/10/2024 15:45 Note Text: Karolina arrived to the infusion suite rating pain 6/10 with no nausea/ dizziness. She was educated on medication sto be administered per therapy plan and verbally agreed to proceed with infusions. PRN Atarax given for anxiety After one 0.25mg dose of DHE, patient noticed her headache becoming worse, from 6/10 pain to 8/10 pain. She would like to continue with DHE. Once DHE finished infusion, patient rated headache 2/10 without nausea/ dizziness. ' Karolina tolerated the infusion well, rated her headache pain 2/10 at the end of the infusion without nausea/ dizziness. Discharged to river driver. [facility] 10-10-2024 History of Presen t illness Narrative Karolina arrived to the infusion suite rating pain 6/10 with no nausea/ dizziness. She was educated on medication sto be administered per therapy plan and verbally agreed to proceed with infusions. PRN Atarax given for anxiety After one 0.25mg dose of DHE, patient noticed her headache becoming worse, from 6/10 pain to 8/10 pain. She would like to continue with DHE. Once DHE finished infusion, patient rated headache 2/10 without nausea/ dizziness. ' Karolina tolerated the infusion well, rated her headache pain 2/10 at the end of the infusion without nausea/ dizziness. Discharged to river driver. documented in this encounter [facility] 10-10-2024 Note HNO ID: [id number] Author: JANEE MONTERO APRN.VAISHNAVI Service: ? Author Type: Nurse Practitioner Type: Progress Notes Filed: 10/10/2024 13:58 Note Text: [facility] In[facility] Note Subjective: Karolina N Batesole is a 39 year old year old female presenting for day 1 of infusions. Therapy Plan: DHE zofran magnesium robaxin New health conditions since orders were placed: No Cardiovascular risk factors: None Triptan dose in the last 24 hours: No Last muscle relaxer dose: No Last NSAID dose: No Response to infusions: Patient tolerating infusion without side effects. Current Preventative: diamox, qulipta Labs: Latest Ref Rng AND Units 09/22/2024 CBC WBC 3.70 - 11.00 k/uL 14.59 RBC 3.90 - 5.20 m/uL 4.23 Hemoglobin 11.5 - 15.5 g/dL 13.3 Hematocrit 36.0 - 46.0 % 36.2 MCV 80.0 - 100.0 fL 85.6 MCH 26.0 - 34.0 pg 31.4 MCHC 30.5 - 36.0 g/dL 36.7 RDW-CV 11.5 - 15.0 % 12.1 Platelet Count 150 - 400 k/uL 330 MPV 9.0 - 12.7 fL 9.5 Baso% % 0.1 Abs Neut (ANC) 1.45 - 7.50 k/uL 12.90 Abs Lymph 1.00 - 4.00 k/uL 1.24 Abs [place] <0.87 k/uL 0.29 Abs Eosin <0.46 k/uL <0.03 Abs Baso <0.11 k/uL <0.03 NRBC /100 WBC 0.0 Latest Ref Rng AND Units 09/22/2024 CMP Sodium 136 - 144 mmol/L 138 Potassium 3.7 - 5.1 mmol/L 3.6 Chloride 98 - 107 mmol/L 109 CO2 22 - 30 mmol/L 14 Glucose 74 - 99 mg/dL 162 BUN 7 - 21 mg/dL 20 Creatinine 0.58 - 0.96 mg/dL 0.75 EGFR >=60 mL/min/1.73m? 104 Calcium 8.5 - 10.2 mg/dL 9.3 ALLERGIES Allergen Reactions Adhesive Rash Latex Rash Levaquin [Levofloxa* Swelling Swelling tongue Morphine Angioedema Says tongue swells up, vomits, chest pain Nickel Rash, Unknown Oxycodone Rash Oxycodone-Acetamino* Rash Silk Other: See Comments Silk tape Sulfadiazine Rash Sulfamethoxazole-Tr* Swelling Adhesive Tape (Cammie* Hives, Itching Current Medications: calcium 26/magnesium 15/zinc (DFRVUTS-QDBTBDPFS-HGEV COMPLEX ORAL)Take by mouth once daily. Patient does not know dosingDisp: Rfl: amoxicillin-clavulanate potassium (AUGMENTIN) 875-125 mg per tabletTake 1 tablet by mouth two times a day.Disp: Rfl: divalproex ER (DEPAKOTE ER) 500 mg 24 hr tabletTake 2 tablets by mouth once daily for 5 days, THEN 1 tablet once daily for 5 days.Disp: 15 tabletRfl: 0 atogepant (QULIPTA) 60 mg tabletTake 1 tablet by mouth once daily.Disp: 30 tabletRfl: 2 acetaZOLAMIDE SR (DIAMOX SEQUELS) 500 mg capsuleTake 1 capsule by mouth two times a day.Disp: 60 capsuleRfl: 4 estrogens, conjugated (PREMARIN ORAL)Take by mouth.Disp: Rfl: POTASSIUM-99 ORALTake by mouth.Disp: Rfl: estradiol (ESTRACE) 0.5 mg tabletTake 1 tablet by mouth once daily.Disp: Rfl: hydrOXYzine pamoate (VISTARIL) 50 mg capsuleTake 50 mg by mouth daily at bedtime.Disp: Rfl: dextroamphetamine-amphetamine (ADDERALL) 20 mg tabletTake 20 mg by mouth once daily.Disp: Rfl: Zinc Acetate, Oral, 50 mg (zinc) capTake 50 capsules by mouth once daily.Disp: Rfl: (Patient not taking: Reported on 10/10/2024) Cetirizine 10 mg capDisp: Rfl: mv,calcium,min/iron/folic/vitK (MULTI FOR HER ORAL)Disp: Rfl: montelukast (SINGULAIR) 10 mg tabletMontelukast Active 10 MG PO Daily March 24, 2021 12:00amDisp: Rfl: (Patient not taking: Reported on 10/10/2024) Review of Systems: Review of system: Patient reports no change from the prior visit. Objective: VS: see infusion note for vital signs General: well appearing, in no acute distress, alert Neurological: Pain Behaviors: no pain behaviors observed Mental Status: Alert and oriented to person, place and time. Affect is normal and appropriate. Speech is spontaneous and fluent without dysarthria, normal in rate, volume and articulation, and clear, coherent, and relevant. 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 Attention span and concentration are good. Cranial Nerves: VII-face is symmetric without evidence of weakness. VIII-hearing intact. Assessment: (G43.E11) Intractable chronic migraine with aura with status migrainosus (primary encounter diagnosis) Plan: Karolina Nicole is a 39 year old year old female, with a history of IIH, chronic migraines and cervicalgia following up today for day 1 of infusions. Follow up plan: Hold Triptans on infusion days or within 24 hours of infusion. Hold Muscle relaxers on infusion days or within 24 hours of infusion. Level of service: Est level 2 (10-19 min). Time spent 15 min on the day of service, which included preparing to see the patient, [id number] patient care, completing clinical documentation, obtaining and/or reviewing separately obtained history, performing a medically appropriate examination, and counseling and educating the patient/family/caregiver. Janee Montero APRN.[facility] Headache Section [facility] October 10, 2024 [facility] 10-10-2024 Telephone encounter Note sawmill or timber yard worker received a consult referral from Dr. Sherwood to address concerns regarding disability process and community resources. RUSSELL consulted with Dr. Barb Hicks who reviewed patient's chart and has offered to see the patient in [place] for a low vision evaluation. sawmill or timber yard worker discussed plan of care with patient who would like to proceed with scheduling with Dr. Hicks. Lengthy discussion regarding patient's diagnosis of IIH and relation to visual disturbances which is making it hard for patient to work and function overall with ADL's/IADL's including driving. RUSSELL discussed consulting with a prosecuting attorney and offered legal resources if needed. RUSSELL also advised asking for a [facility] neurolog[facility] socially responsible investment adviser who can help with support and disability paperwork since the focus will be from IIH diagnosis and treatment. RUSSELL will send patient GAMALIEL forms to [email or web address] Patient will request records from Dr. Janina Soria (neurology) and Dr. Pablo Phipps (retina specialist from [facility]). Patient got an important call during the conversation and stated she will call SW back later. Patient has contact number in her phone. RUSSELL will send [facility] scheduling number with GAMALIEL forms. [facility] 10-10-2024 Miscellaneous Notes sawmill or timber yard worker received a consult referral from Dr. Sherwood to address concerns regarding disability process and community resources. RUSSELL consulted with Dr. Barb Hicks who reviewed patient's chart and has offered to see the patient in [place] for a low vision evaluation. sawmill or timber yard worker discussed plan of care with patient who would like to proceed with scheduling with Dr. Hicks. Lengthy discussion regarding patient's diagnosis of IIH and relation to visual disturbances which is making it hard for patient to work and function overall with ADL's/IADL's including driving. RUSSELL discussed consulting with a prosecuting attorney and offered legal resources if needed. RUSSELL also advised asking for a [facility] neurology socially responsible investment adviser who can help with support and disability paperwork since the focus will be from IIH diagnosis and treatment. RUSSELL will send patient GAMALIEL forms to [email or web address] Patient will request records from Dr. Janina Soria (neurology) and Dr. Pablo Phipps (retina specialist from [facility]). Patient got an important call during the conversation and stated she will call RUSSELL back later. Patient has contact number in her phone. will send [facility] scheduling number with GAMALIEL forms. documented in this encounter [facility] 10-07-2024 Instructions Zenaida Cabrera, - 10/07/2024 12:18 PM EDT - Initiated Depakote 1000 mg daily for 5 days, followed by 500 mg daily for 5 days cycle breaker - Continue Diamox 250 mg 2x daily - Scheduled for a 3-day infusion therapy starting Thursday to include DHE, muscle relaxants and magnesium. - Will work on obtaining insurance approval for oral migraine medication, Atogepant oral medication to be taken daily (will be mailed to you if approved) - Can provide work note when you come in for infusions Atogepant (Qulipta): What You Should Know Atogepant (brand name Qulipta) is a once-daily oral medication used to prevent migraines before they start. It works by blocking CGRP, a protein involved in migraine attacks, helping to reduce how often migraines happen and how severe they are. How It Helps Reduces the number of migraine days per month Can help if you ve tried other preventives like beta blockers or antidepressants or antiseizure medications without success Convenient once-daily tablet with no injections required Possible Side Effects Nausea Constipation Fatigue or sleepiness Decreased appetite Rarely, liver issues -- your doctor may monitor liver function if needed Notes for Patients Taken once daily at 60 mg, with or without food (reduce dose optat 30 mg or 10 for those with kidney disease or severe constipation) Works best when taken consistently every day Can be used alongside acute medications (like triptans or nurtec/ubrelvy) Please start monitoring blood pressure for the first week after starting this new medication, and then periodically (1-2x weekly) w/ a BP cuff at home (I recommend you measure it in the morning). Please keep a log of your BP readings, noting the date, time, and results. You can use a notebook, a digital eugene, or a spreadsheet--whatever works best for you. Please let me know if your top number (systolic) is consistently above 135 and/or your bottom number (diastolic) is consistently above 95 occurring more than 3-4 days in a week for more than 2 weeks. Our infusion treatment room is where an individual may receive outpatient intravenous medications to abort headaches and/or migraines for three consecutive days. Location Headache Infusions are done at [address] [place] in the [facility]. Medications There are many medications that can be used for your infusion therapy and your team will decide which ones and how much you will receive. The medicines chosen are based on your type of headache, other medical conditions, allergies, and previous response to certain medications. The most common classifications of medications we use are antihistamines, anti-emetics, anti-seizures, smooth muscle relaxers, steroids, NSAIDS, and DHE-45. Please do not take any triptans within 24 hours of infusion (ex: almotriptan, eletriptan, frovatriptan, naratriptan, rizatriptan, sumatriptan, zolmitriptan). Please do not take any muscle relaxors within 12 hours of infusion. Please continue all other home medications as prescribed. Planning your day Plan on staying about 3-5 hours, but the length of treatment may vary depending on the medications you will receive. Your nurse will be able to give you more of an approximate time after she receives the orders from your provider. It is best to have a river driver, as some medications we use may cause drowsiness. If you do not have a river driver, please let your nurse know and you will not be given any medication that may cause drowsiness. This is a treatment area, If your Drivers/Support person is planning to stay for the duration of your infusion, they MUST wait in the waiting area and cannot accompany you during your infusions. Children cannot accompany patient into the infusion room. During the infusion Most patients prefer to sleep during their infusion. We do not have TV or radio in the treatment room. If you find music relaxing, you may bring headphones to listen on your device. All chairs in the treatment room recline for comfort. You may bring a light lunch, snack, or beverage. We do have some sodas, juices, and crackers if you prefer. The room is maintained at a dark and cool temperature, so layer clothing for comfort. We will need access to your arms for placement of an IV. Please refrain from wearing perfumes, colognes, and heavy scented lotions. Insurance Coverage: For questions about insurance coverage, please contact financial accounting manager team at: [phone] or [phone]. Prior authorization is not usually required. Travel/Lodging: If you are traveling from outside the area and need lodging, [facility] offers 3 hotels on campus with bus shuttle service for your convenience. Each of these hotels offer discounted rates for our patients. For more information please visit: [email or web address] documented in this encounter [facility] 10-07-2024 History of Presen t illness Narrative Images [...] visit. Either the patient or their legal membership sales representative has been informed of the risks and benefits of -- and alternatives to -- treatment through a remote evaluation and consents to proceed with the evaluation remotely. Headache and Facial Pain [facility]: Headache follow-up Follow-up Visit Last visit date with me: 09/27/2023 (1 week ago) From last visits: Karolina Nicole is a 39 year old with H/o IIH with papilledema Chronic migraine Cervicalgia 2021- IIH diagnosed in 2021 with a R vision loss sx, LP OP at 34, started diamox and ozempic with 50# loss. 08/2023 Repeat LP - OP 31 and papilledema so diamox restarted. ~~~~~~~~ *05/2024 - visit with me (first), increase diamox to 500 mg BID 06/[address] Sherwood - no active disc edema only chronic disc elevation, with stable OCT and slight nonspecific blind spot defects b/l on VF. (while on diamox) 06/2024 bMRI and MRV stable with subtle venous b/l TV stenosis and mild signs seen with IIH (ON tortuosity and partially empty sella). ~~~~~~~~ 08/2023 visit with Ashlyn, diamox 500/750 *08/2023 visit with me: nephrology and reduce diamox to start zonisimide due to strong dislike for diamox and nephrolithiasis. Diamox 500 mg BI ~~~~~~~~ 09/22/2024 CTV negative in ED 09/23/2024 visit with Corbin - LP ordered, on diamox 750bid, offered infusions and migraine treatment *09/26/2024 visit with me - reported worsening headaches, neck stiffness (worsen headache with neck flexion) and pressure sensation (photophobia and nausea, responsive to ED edna cocktail 09/22). She had her local provider/employer do an eye exam with RNFL appearing similar to prior with Dr. Sherwood (OCT testing RNFL thickness from September appears comparable to Jun, and not worse (September = 91 and 88 and Jun = 86 and 85) and typically in IIH that is active would have RNFL thickness increased like in the 200s (normal is around 97-113), and there was no visual field impairments and the VF testing of the right eye was very similar to Feburary on the testing. Offered preventative medications for migraine (flare due 2/2 estrogen changes suspected)- she declined them all and states her headaches are only IIH not migraine. I also offered repeat LP that she desired (though will be skewed (lowered) while on diamox) plan: LP ordered, continue diamox 750/750 09/28/[address] Sherwood- exam w/ decreased best corrected visual acuity, intact color vision, worsening scattered arcuate zone areas of decreased sensitivity on the L VF, NO active optic disc edema either eye. Bscan was also negative for indirect of intracranial hypertension (while on diamox) 09/30/2024 - [facility] IR guided LP (lateral decub)- OP 27 mm CSF, removed 31 ml, closing pressure 11. (Off Diamox 24 hours), laid for 1 hour only and had to get to graduation 10/04/2024 [facility] ED admission overnight - due to KHAN after LP, given bolus and discharged, no blood patch, caffeine helpful. Off diamox 10/05/2024 - visit with PCP Dr. Ivey f/u lab work, got a CT scan 10/05/[address] Sherwood (virtual) - vision improved after LP, rec stay off diamox until post-LP headache resolved (restart at 500 mg qhs 3 days then BID) 10/06/2024 - visit with PCP Dr. Ivey - concern for IIH based on CT/headaches, restarted diamox 250 BID Interval History: - Persistent headaches and neck pain since August, unchanged, described as tightness and pressure across the back of the neck from left to right ear. - Symptoms unchanged after recent lumbar puncture on 10/31. - Headaches remain with a positional, worsening when sitting upright or flexing the neck, and improving when lying down. Pain intensity rated as 6/10 when lying down and 15/10 when upright, with immediate increase upon sitting up. - She denied transient visual obscurations, pulsatile tinnitus, and diplopia. - Describes discomfort as unbearable, with a dull ache and pressure. - Photophobia present, requiring sunglasses; no phonophobia. Denies nausea, except for two previous episodes. - She was perseverative about her MRV and how that correlates to her headaches - She was off Diamox since 10/30 (just prior to LP), restarted on 11/05 at 500 mg BID with PCP - Expresses extreme frustration with ongoing symptoms and treatment process. - She does not believe that she has migraines and this is all related to IIH, she is very frustrated when I tell her this and cannot believe that she has 2 processes going on. -She is adamantly not interested in being on migraine preventative options offered specifically no antihypertensives, antidepressants and states she only wants something migraine specific if at all. To be clear on headache positional changes pre/post headache: Before the LP KHAN discomfort : Laying down KHAN: 6/10 pain level (discomfort, pressure) +sensitive to light (always since August Upright (flexing the neck) 15/10 pain within 2 min, +sensitive to light (always) After the LP KHAN discomfort : Laying down: 6/10 by end of day (she is currently laying down and pain is 3-4/10) Upright (flexing the neck) 11/10 pain (can get up to 15) within 2 minutes DATA: Diagnostic tests reviewed for today's visit: See above Labs from 10/05 and 09/30 LP in scanned documents reviewed HEADACHE SCORES: 08/22/2024 09/23/2024 10/06/2024 Headache Questions ER visits since last office visit: 1 Hospital stays since last office visit 0 Limited ADLs in the last month: 25 Days missed from work or school in the last month: 3 Days headache pain free in the last month: 5 Days per month with ALL of the following symptoms - decreased productivity, light sensitivity and nausea: 25 Initial improvement of headache after botox injection at last visit: Not applicable, I did not have a botox injection at my last visit Not applicable, I did not have a botox injection at my last visit Not applicable, I did not have a botox injection at my last visit PRN medication usage in the last month: 20 Patient impression of improvement since last visit: Minimally worse Very much worse No change 07/22/2024 08/22/2024 09/23/2024 HIT-6 HIT-6 67 (Severe impact) Incomplete 74 (Severe impact) 07/22/2024 08/22/2024 09/23/2024 CONCHA - 2/7 SCORES CONCHA-2 Score 3 2 3 3 CONCHA-7 Score 10 8 8 07/22/2024 08/22/2024 09/23/2024 Migraine Specific QOL - Higher scores indicate better HRQL Role Function-Restrictive Transformed Score (range: 0-100) 60 60 8.57 Role Function-Preventive Transformed Score (range: 0-100) 60 60 45 Emotional Function Transformed Score (range: 0-100) 53.33 60 13.33 05/30/2024 07/22/2024 09/23/2024 PHQ-9 Score 9 8 10 10 Physical Exam: General: frustrated appearing, in no acute distress, alert. Pain Behaviors: laying in bed, tearful at times, screaming and upset even Skin: No visible rashes or lesions. Neurological: Mental Status: Alert and oriented to person. Affect is normal. Speech is spontaneous and fluent without dysarthria. Cranial Nerves: No nystagmus appreciated. Face is symmetric without evidence of weakness. Hearing intact. Motor Exam: Normal muscle bulk by visual examination. Upper extremities antigravity. Cerebellar: No ataxia or tremor appreciated. IMPRESSION: Karolina Nicole is a 39 year old who presents for follow up regarding: Continued bioccipital headaches that remain unchanged after LP, with otherwise history of IIH with papilledema dx 2021 (stable), as well as chronic migraine and cervicalgia. She was diagnosed with IIH in 2021 and had persistent difficulty with headache and visual symptom management since, trialed on diamox, topiramate, zonisimide and back on Diamox as of earlier this spring. She last saw me just last week where we discussed LP due to her persistent concern her current headache worsening since August is due to her IIH, but also discussed migraine treatments, with migraine most likely to explain her headache with no active IIH, no active optic disc edema and stable RNFL. She has since seen Dr. Sherwood 2x, her PCP 2x and been in the ED 2x and completed IR LP with OP 27 which did not improve or change her head pressure/neck pain at all. She saw Dr. Sherwood 2 days ago and per discuss there was concern for post-LP headache due to worsening headaches being upright, and pt was encouraged to stay off diamox until this improved. She then most recently saw her PCP yesterday, who was concerned then about IIH reoccurrence based on CT scan showing empty sella, and so started her back on diamox. In our discussion today it is clear that these headaches are entirely unchanged from before the lumbar puncture, such that she has always had a slight positional component feeling better laying down and worse being upright especially with head flexion. When she describes the most recent events over the last week, there is no evidence of post lumbar puncture headache, rather her headaches remain unchanged and have always had the slight positional component. She is extremely frustrated by these debilitating headaches over the last 5 to 6 weeks. I reiterated to her that because she had no improvement with the lumbar puncture that these headaches were most likely with an underlying migraine phenotype which is very common in IIH, and I suspect that this even before the lumbar puncture as we had talked about trying to start migraine preventative medications numerous times, but she declines, she is adamantly not interested in being on any antihypertensives, antiseizure, antidepressants offered. She was not interested in monthly injectable mABs. I additionally offered her ONB and infusions, which she was not interested in. After some time, she was willing to try cycle breaker with VPA and consider 3 days of IV infusions to help with this migraine cycle, while awaiting for Atogepant PA. I suspect there could be some component of occipital neuralgia as well as cervicalgia contributing, but most predominantly that this is migraine. Diagnosis: Chronic migraine Cervicalgia H/o IIH with papilledema, stable, no active edema Treatment Plan: Preventative Medication: Continue diamox 250 BID, titrated with per ophthalmology Atogepant 60mg Abortive Medication: 3 days DHE infusions next week Cycle breaker now: VPA 10 days Education: The medication side effects, adverse reactions and drug interactions for prescribed medications were reviewed. Written educational materials and patient instructions outlining the above were given in AVS. Future Considerations: [facility] preventative, offered: BB, SNRI, ONB, consider PT once improved, chronic pain recovery/Reboot - follow up in 3 months We will request a precertification for a Calcitonin Gene-Related Peptide Receptor Antagonist (GEPANT) Atogepant for the prevention of chronic migraine . This patient meets ICHD-3 criteria for treatment of migraine with a small molecule CGRP antagonist GEPANT. The FDA has approved GEPANTS for the treatment of migraine. Specifically, the patient has 30 headaches per month, lasting 4 or more hours/day associated with photophobia, nausea, lightheaded, neck pain, worse with movement, relieved in supine position for three or more months. Medication overuse headache has not been ruled out.Patient will not use with another GEPANT. The patient has tried and failed the following : The following preventative medications have been tried without benefit: Anti-Convulsant Topiramate (Topamax, Trokendi XL, Qudexy) topamax should be avoided due to hx of kidney stones Zonisamide (Zonegram) did not feel well on this when attempted to switch, worsened headaches topamax should be avoided due to hx of kidney stones Anti-Depressant and Antipsychotic Duloxetine (Cymbalta) Sertraline (Zoloft) Venlafaxine (Effexor) suicidal ideation Supplements Magnesium The following abortive medications have been tried but require high frequency use which can lead to Medication Overuse Headache: Analgesic Ketorolac (Toradol) cycle breaker 09/20[address] Patient discussed with Dr. Funes, staff Neurologist. Zenaida Cabrera DO, MBA Headache Medicine Fellow, PGY5 Adult Neurologist/ Board Certified Headache & Facial Pain Section, [facility] [place], OPERATED BY [facility] STAFF PHYSICIAN NOTE OF PERSONAL INVOLVEMENT IN CARE I personally have reviewed the history and physical obtained and documented by the resident/fellow.The pertinent lab, radiology and/or other diagnostic test(s) [...] outlined above. We spent a total of 30 minutes on the date of the service, with more than 50% of the time devoted to patient counseling. Loraine Funes MD Staff Neurologist Headache &Facial Pain Section 10/07/2024 documented in this encounter [facility] 10-07-2024 Note HNO ID: [id number] Author: LORAINE FUNES MD Service: ? Author Type: Fellow Type: Progress Notes Filed: 10/07/2024 13:50 Note Text: VIRTUAL VISIT This is a [...] visit. Either the patient or their legal membership sales representative has been informed of the risks and benefits of -- and alternatives to -- treatment through a remote evaluation and consents to proceed with the evaluation remotely. Headache and Facial Pain Section [facility]: Headache follow-up Follow-up Visit Last visit date with me: 09/27/2023 (1 week ago) From last visits: Karolina Nicole is a 39 year old with H/o IIH with papilledema Chronic migraine Cervicalgia 2021- IIH diagnosed in 2021 with a R vision loss sx, LP OP at 34, started diamox and ozempic with 50# loss. 08/2023 Repeat LP - OP 31 and papilledema so diamox restarted. ~~~~~~~~ *05/2024 - visit with me (first), increase diamox to 500 mg BID 06/[address] Sherwood - no active disc edema only chronic disc elevation, with stable OCT and slight nonspecific blind spot defects b/l on VF. (while on diamox) 06/2024 bMRI and MRV stable with subtle venous b/l TV stenosis and mild signs seen with IIH (ON tortuosity and partially empty sella). ~~~~~~~~ 08/2023 visit with Ashlyn, diamox 500/750 *08/2023 visit with me: nephrology and reduce diamox to start zonisimide due to strong dislike for diamox and nephrolithiasis. Diamox 500 mg BI ~~~~~~~~ 09/22/2024 CTV negative in ED 09/23/2024 visit with Corbin - LP ordered, on diamox 750bid, offered infusions and migraine treatment *09/26/2024 visit with me - reported worsening headaches, neck stiffness (worsen headache with neck flexion) and pressure sensation (photophobia and nausea, responsive to ED edna cocktail 09/22). She had her local provider/employer do an eye exam with RNFL appearing similar to prior with Dr. Sherwood (OCT testing RNFL thickness from September appears comparable to Jun, and not worse (September = 91 and 88 and Jun = 86 and 85) and typically in IIH that is active would have RNFL thickness increased like in the 200s (normal is around 97-113), and there was no visual field impairments and the VF testing of the right eye was very similar to [facility] on the testing. Offered preventative medications for migraine (flare due 2/2 estrogen changes suspected)- she declined them all and states her headaches are only IIH not migraine. I also offered repeat LP that she desired (though will be skewed (lowered) while on diamox) plan: LP ordered, continue diamox 750/750 09/28/[address] Sherwood- exam w/ decreased best corrected visual acuity, intact color vision, worsening scattered arcuate zone areas of decreased sensitivity on the L VF, NO active optic disc edema either eye. Bscan was also negative for indirect of intracranial hypertension (while on diamox) 09/30/2024 - [facility] IR guided LP (lateral decub)- OP 27 mm CSF, removed 31 ml, closing pressure 11. (Off Diamox 24 hours), laid for 1 hour only and had to get to graduation 10/04/2024 [facility] ED admission overnight - due to KHAN after LP, given bolus and discharged, no blood patch, caffeine helpful. Off diamox 10/05/2024 - visit with PCP Dr. Ivey f/u lab work, got a CT scan 10/05/[address] Sherwood (virtual) - vision improved after LP, rec stay off diamox until post-LP headache resolved (restart at 500 mg qhs 3 days then BID) 10/06/2024 - visit with PCP Dr. Ivey - concern for IIH based on CT/headaches, restarted diamox 250 BID Interval History: - Persistent headaches and neck pain since August, unchanged, described as tightness and pressure across the back of the neck from left to right ear. - Symptoms unchanged after recent lumbar puncture on 10/31. - Headaches remain with a positional, worsening when sitting upright or flexing the neck, and improving when lying down. Pain intensity rated as 6/10 when lying down and 15/10 when upright, with immediate increase upon sitting up. - She denied transient visual obscurations, pulsatile tinnitus, and diplopia. - Describes discomfort as unbearable, with a dull ache and pressure. - Photophobia present, requiring sunglasses; no phonophobia. Denies nausea, except for two previous episodes. - She was perseverative about her MRV and how that correlates to her headaches - She was off Diamox since 10/30 (just prior to LP), restarted on 11/05 at 500 mg BID with PCP - Expresses extreme frustration with ongoing symp (more content not included)... [facility] 10-06-2024 Telephone encounter Note Hi I had a virtual visit with her yesterday (Thursday) and saw her last week. When we spoke these were symptoms she has been having from a visual standpoint and if anything reported improvement in the vision since the lumbar puncture. The ongoing symptoms of concern was the low pressure headache after the lumbar puncture, which is why I held off on having her resume diamox as that would be counterproductive to a LOW pressure headache. I relayed this all in detail to the patient. [facility] 10-06-2024 Miscellaneous Notes Hi I had a virtual visit with her yesterday (Thursday) and saw her last week. When we spoke these were symptoms she has been having from a visual standpoint and if anything reported improvement in the vision since the lumbar puncture. The ongoing symptoms of concern was the low pressure headache after the lumbar puncture, which is why I held off on having her resume diamox as that would be counterproductive to a LOW pressure headache. I relayed this all in detail to the patient. Received a call from Dr. Yoan Ivey's office. Patient Karolina Niocle is not doing well since her lumbar puncture. He states she has a headache and seeing flashing lights and not doing so well. Would like for the patient to follow up with Dr. Sherwood tomorrow if at all possible. I explained that the patient had the lumbar puncture at [facility]. He order a number of lab work yesterday, CBC, Blood cultures (the results will not be back for a few days) profile 14, [place] and Milan A. He said if you could call him at his office [phone]. He did restart her on Diamox 250 mg twice a day yesterday. documented in this encounter [facility] 10-06-2024 Telephone encounter Note Received a call from Dr. Yoan Ivey's office. Patient Karolina Nicole is not doing well since her lumbar puncture. He states she has a headache and seeing flashing lights and not doing so well. Would like for the patient to follow up with Dr. Sherwood tomorrow if at all possible. I explained that the patient had the lumbar puncture at [facility]. He order a number of lab work yesterday, CBC, Blood cultures (the results will not be back for a few days) profile 14, [place] and [place] A. He said if you could call him at his office [phone]. He did restart her on Diamox 250 mg twice a day yesterday. [facility] 10-05-2024 Telephone encounter Note Patient needed a work excuse for yesterday and today to take to work tomorrow. Sent Via Urlist. [facility] 10-05-2024 Miscellaneous Notes Patient needed a work excuse for yesterday and today to take to work tomorrow. Sent Via Urlist. documented in this encounter [facility] 10-05-2024 History of Presen t illness Narrative ??This is a telemedicine visit that was performed using the [employer] virtual platform with the originating site at my work office and the distant site at the patient's home. Verbal consent to participate in a combined audio and video visit was obtained. The patient consented to this virtual visit. I discussed with the patient the nature of our telemedicine visits, that: - I would evaluate the patient and recommend diagnostics and treatments based on my assessment - Our sessions are not being recorded and that personal health information is protected - Our team would provide follow up care in person if/when the patient needs it I have communicated my name and active licensure. The patient's identity and physical location were verified at the time of this visit. Either the patient or their legal membership sales representative has been informed of the risks and benefits of -- and alternatives to -- treatment through a remote evaluation and consents to proceed with the evaluation remotely. Karolina Nicole is a 39 year old right-handed woman who returns for her history of idiopathic intracranial hypertension (IIH). At initial consultation on June 14, 2024, the patient reported vision loss in her right eye in 2021 for which she underwent work up that confirmed intracranial hypertension based on an opening pressure on lumbar puncture of 34 cm H2O. She was put on diamox in addition to ozempic with resultant 50 pound weight loss. 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 The diamox was discontinued at the end of 2022. She then developed worsening headaches while sick with multiple infections from May 2023 to August 2023. She ultimately underwent repeat lumbar puncture with opening pressure recorded at ~31 cm H2O at an outside facility on 08/25/23 per patient. She then established with neurology at [facility] in September of 2023 and was put on diamox. She was followed by Dr. Goldberg as well as Dr. Cabrera. At initial consultation in my clinic she was maintained on diamox 500 mg twice a day. She was recently diagnosed with nephrolithiasis in the setting of diamox for which nephrology consultation was pending. She had experienced positional headaches, peripheral vision loss (bilateral inferotemporally per patient), transient visual obscurations, and pulsatile tinnitus. She denied diplopia. She gained back the initial 50 but lost 40 pounds in the preceding 4 months. She denied exposure to topical retin-A / accutane or recent COVID-19 infection. Was on a tetracycline in February. 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 The patient's initial neuro-ophthalmic exam on 06/14/2024 showed overall good afferent visual pathway function with the exception of trace bilateral blind spot enlargement on marie visual field -- which was consistent with her report of IT visual field deficits. There was no active optic disc edema with only chronic appearing disc elevation. There was specifically no optic disc drusen, which was corroborated by bscan. This was of course of on therapeutic diamox dosing. Monitoring was planned. At her 09/28/2024 return visit she reported that perhaps the estradiol had provoked her symptoms 08/11/24 with resultant neck stiffness and severe headaches reportedly improved while supine. She increased up to 1500 mg total daily of diamox. Repeat exam showed decreased best corrected visual acuity both eyes with intact color vision and worsening scattered arcuate zone areas of decreased sensitivity on the left visual field. There was no active optic disc edema either eye. Bscan was also negative for indirect of intracranial hypertension. She discontinued the estradiol given the timing with her symptoms and wanted to proceed with lumbar puncture ordered by neurologist Dr. Cabrera (with whom I have discussed her care) - to either be completed by IR or locally if sooner. We discussed the opening pressure on the lumbar puncture being less acrurate while on diamox but given the complete clinical picture she planned to proceed as this would also exclude alternative etiologies such as meningitis given the ongoing neck stiffness that could certainly be multifactorial. ASSESSMENT/PLAN: (G93.2) IIH (idiopathic intracranial hypertension) (primary encounter diagnosis) (H53.453) Other localized visual field defect, bilateral At her 10/05/2024 virtual visit she reported an opening pressure on lumbar puncture recorded at 27 cm H2O, which was performed while on her side. CSF analysis was not yet received from [facility], with several results discussed during the virtual that she had access to and she was planning to discuss several serum results with her primary care physician. She returned to the ER there given concern for post-lumbar puncture headaches, for which she was admitted 10/04 and received IV fluids. No epidural blood patch was performed. Caffeine had been beneficial since discharge. She had not yet resumed diamox per my instruction given the post-LP headaches. Her blurred vision had improved following the lumbar puncture. When she closed her eyes she saw dim flashing strobe lights. She denied transient visual obscurations, pulsatile tinnitus, and diplopia. She would remain off of the diamox until her post-LP headaches resolved, at which time she would start diamox 500 mg at bedtime for three nights and then increase to twice daily if tolerated. I asked her to please continue to keep me updated as to how she was doing via Urlist. I will plan to see her back in 4 months, unless concerns arise in the interim, for which she was provided my contact information and encouraged to reach out. ER presentation is otherwise advised for any acute onset neurological deficits. Our [facility] same day access clinic can be reached at: [phone]. Lloyd Sherwood MD 8:03 AM 10/05/2024 FOR ADMINISTRATIVE PURPOSES ONLY: My impression of this case is based upon an assessment of the the patient's subacute on chronic problems listed above that pose a threat to visual function. 50 minutes were spent on total patient care on the day of service that includes [id number] time and non. Greater than half of this time was spent counseling and coordinating care. This time was broken down into: 2 minutes reviewing the patient record before the visit, 8 minutes performing a medically appropriate neuro-ophthalmic history, 30 minutes counseling / educating the patient, and 10 minutes coordinating care for the patient. I communicated with Dr. Ivey and Dr. Cabrera regarding the management of this patient. The assessment and plan were discussed extensively with the patient who was amenable and voiced understanding. documented in this encounter [facility] 10-05-2024 Note HNO ID: [id number] Author: LLOYD SHERWOOD MD Service: ? Author Type: Physician Type: Progress Notes Filed: 10/05/2024 08:04 Note Text: ??This is a telemedicine visit that was performed using the [employer] virtual platform with the originating site at my work office and the distant site at the patient's home. Verbal consent to participate in a combined audio and video visit was obtained. The patient consented to this virtual visit. I discussed with the patient the nature of our telemedicine visits, that: - I would evaluate the patient and recommend diagnostics and treatments based on my assessment - Our sessions are not being recorded and that personal health information is protected - Our team would provide follow up care in person if/when the patient needs it I have communicated my name and active licensure. The patient's identity and physical location were verified at the time of this visit. Either the patient or their legal membership sales representative has been informed of the risks and benefits of -- and alternatives to -- treatment through a remote evaluation and consents to proceed with the evaluation remotely. Karolina Nicole is a 39 year old right-handed woman who returns for her history of idiopathic intracranial hypertension (IIH). At initial consultation on June 14, 2024, the patient reported vision loss in her right eye in 2021 for which she underwent work up that confirmed intracranial hypertension based on an opening pressure on lumbar puncture of 34 cm H2O. She was put on diamox in addition to ozempic with resultant 50 pound weight loss. 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 The diamox was discontinued at the end of 2022. She then developed worsening headaches while sick with multiple infections from May 2023 to August 2023. She ultimately underwent repeat lumbar puncture with opening pressure recorded at ~31 cm H2O at an outside facility on 08/25/23 per patient. She then established with neurology at [facility] in September of 2023 and was put on diamox. She was followed by Dr. Goldberg as well as Dr. Cabrera. At initial consultation in my clinic she was maintained on diamox 500 mg twice a day. She was recently diagnosed with nephrolithiasis in the setting of diamox for which nephrology consultation was pending. She had experienced positional headaches, peripheral vision loss (bilateral inferotemporally per patient), transient visual obscurations, and pulsatile tinnitus. She denied diplopia. She gained back the initial 50 but lost 40 pounds in the preceding 4 months. She denied exposure to topical retin-A / accutane or recent COVID-19 infection. Was on a tetracycline in February. 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 The patient's initial neuro-ophthalmic exam on 06/14/2024 showed overall good afferent visual pathway function with the exception of trace bilateral blind spot enlargement on marie visual field -- which was consistent with her report of IT visual field deficits. There was no active optic disc edema with only chronic appearing disc elevation. There was specifically no optic disc drusen, which was corroborated by bscan. This was of course of on therapeutic diamox dosing. Monitoring was planned. At her 09/28/2024 return visit she reported that perhaps the estradiol had provoked her symptoms 08/11/24 with resultant neck stiffness and severe headaches reportedly improved while supine. She increased up to 1500 mg total daily of diamox. Repeat exam showed decreased best corrected visual acuity both eyes with intact color vision and worsening scattered arcuate zone areas of decreased sensitivity on the left visual field. There was no active optic disc edema either eye. Bscan was also negative for indirect of intracranial hypertension. She discontinued the estradiol given the timing with her symptoms and wanted to proceed with lumbar puncture ordered by neurologist Dr. Cabrera (with whom I have discussed her care) - to either be completed by IR or locally if sooner. We discussed the opening pressure on the lumbar puncture being less acrurate while on diamox but given the complete clinical picture she planned to proceed as this would also exclude alternative etiologies such as meningitis given the ongoing neck stiffness that could certainly be multifactorial. ASSESSMENT/PLAN: (G93.2) IIH (idiopathic intracranial hypertension) (primary encounter diagnosis) (H53.453) Other localized visual field defect, bilateral At her 10/05/2024 virtual visit she reported an opening pressure on lumbar puncture recorded at 27 cm H2O, which was performed while on her side. CSF analysis was not yet received from [facility], with several results discussed during the virtual that she had access to and she was planning to discuss several serum results with her primary care physician. She returned to the ER there given concern for post-lumbar punc (more content not included)... [facility] 09-30-[address] [facility] enter 09-30-2024 Radiology Diagnostic study note [facility] Main [place] [address] [place], [place] [id number] CT Scan Report Signed Patient: Karolina Nicole MR#: [id number] : 1985 Acct:[id number] Age/Sex: 39 / F ADM Date: 5 Loc: 3T Room: [address] [place] [address] Type: ADM INOo Attending Dr: Cindy Winslow MD Copies to: MD Cindy Gr MD~ Ordering Provider: Mj Garcia MD Date of Service: 09/30/24 CT/CT head/brain wo con: LP CT head/brain wo con 09/30/2024 7:23 AM SIGNS AND SYMPTOMS: History of cervical cancer TECHNIQUE:Multi-detector CT axial slices of the brain were obtained without IV contrast. CT was performed with one or more of the following dose reduction techniques: Automated exposure control, adjustment of the mA and/or kV accordingto patient size, or use of iterative reconstruction technique. COMPARISON: 02/08/2024 FINDINGS: There is no shift of the midline structures, acute intracranial bleeding, mass effects, or evidence of acute ischemia. The ventricular system isnormal in size. The brainstem and the cerebellum are unremarkable. The visualized intraorbital contents, the visualized paranasal sinuses, and the infratemporal soft tissues show no acute abnormality. The osseous structures in the skull base and the calvarium show no abnormality. CT/CT head/brain wo con IMPRESSION: Normal noncontrasted CT brain. Impression dictated by: Dorian Hopkins M.D. 09/30/2024 8:30 AM Dictation Location: [place] [address] Transcribed By: [facility] 09/30/24829 Dictated By: Dorian Hopkins II, MD 09/30/24819 Signed By: 09/30/24829 [facility] Work Phone: 09-29-2024 Consult note Note Date/Time September 29, 2024 5:36p m [facility] [address] [place] [id number] Neurology Consult Note Signed Patient: Karolina Nicole MR#: [id number] : 1985 Acct:[id number] Age/Sex: 39 / F Adm Date: 5 Loc: 3T Room: [address] [place] [address] Type: ADM INOo Attending Dr: Cindy Winslow MD Copies to: MD Janina Meza,MD Mireya Fernandez MD, RES~ HPI Consult Date: 09/29/24 Fur Remodeler: Mireya Soliz MD, RES Reason for consult: intracranial hypertension Consult Narrative HPI: 39-year-old female with history of idiopathic intracranial hypertension. She presented to the emergency room at the urging of her neurologist in order to receive a lumbar puncture for 4 weeks of blurry vision, neck stiffness, headache, and evidence of papilledema on [employer] retinal imaging last Thursday. She had gone to the emergency room last and had a CT brain with and without contrast. The 5-day prednisone burst and 5-day course of Toradol did not help improve her symptoms. She is planned for lumbar puncture plus fluid removal with radiology this morning. This will be her third LP for IIH. She states she received her IIH diagnosis in January 2022 and is suspicious that initiation of Premarin in October 2021 was a causative factor. She had an episode of brief fuzzy vision change in November of that year, then in January right-sided white spots in vision. She had papilledema with vision loss that did eventually resolve. First MRI received January 2022. First lumbar puncture received February 2022. After that time, she started on Ozempic for weight loss and was able to lose 50 pounds. She had regained that in the interim years, but has lost 48 pounds in the past 5 months intentionally with strict diet changes. She avoids meats, carbohydrates, processed foods. She eats whole fruits and vegetables and drinks3 to 4 quarts of water daily. She has been following guidance from [facility]: A comprehensive kind to IIH by Dr. Fredy Ly and is in an IIH support group. Initially, she was on 500 mg daily of acetazolamide, dosage was escalated to 1250 mg daily over time. Required 2nd LP in August of last year. For the past 7 or 8 days, she has been on 1500 mg Diamox split twice daily. Parafon Forte prescribed 3 weeks ago did not help pain . She attributes the last month of symptoms to switch from Premarin to synthetic estradiol in August. Her Adderrall dosage was also seemingly increased from 30mg total per day to 40mg per day in mid August. She also reports starting Zonisamidein the past 8 or so days with plan to uptitate this dosage while downtitrating Diamox. She reports she has developed kidney stones from the Diamox, and therefore could not start on Topamax. This morning, she is tearful and in pain, switching positions in bedside chair to recline and get more comfortable. She is tearful and complains of severe posterior neck/occipital pressure and blurry vision. this afternoon: The patient has been doctoring at [facility]. Her eye doctor found the papiledema. Her headaches are contstant but will wax and wane. She tried some parafon forteand that helped in the past but then lost its efficacy. She recently switched her hormone pills and they think that may have exacerbatedher symptoms. She states the headache is only better when she is sleeping. It comes up from her traps into her neck into the occipital area. She saw the neuro-airborne mission systems superintendent who felt that she had significant papilledema. They could not get her on soon enough for a lumbar puncture so they told her to go to the [facility] ER but she ended up coming to this ER. Denies any new numbness tingling or weakness no chest pain shortness of breath Review of Systems Constitutional Constitutional: Denies chills and Denies fever(s) Eyes Eyes: Reports blurry vision and Denies diplopia ENT Ears, Nose, Mouth, and Throat: Denies nasal congestion and Denies nasal discharge Cardiovascular Cardiovascular: Denies chest pain and Denies palpitations Respiratory Respiratory: Denies cough and Denies dyspnea Gastrointestinal Gastrointestinal: Denies nausea and Denies vomiting Genitourinary Genitourinary: Denies dysuria and Denies hematuria Musculoskeletal Musculoskeletal: Denies muscle weakness, Denies numbness and Denies tingling Integumentary/Breasts Skin/Breast: Denies new lesions and Denies rash Neurologic Neurologic: Reports headache(s) and Denies seizure-like activity [facility] Medical History Mixed hyperlipidemia Metabolic syndrome X Fatty liver Exercise counseling Dietary surveillance and counseling Abnormal weight gain BMI 29.0-29.9,adult Overweight (BMI 25.0-29.9) Neck pain Stiff neck Personal history of COVID-19 History of drug abuse Methamphetamines only PTSD (post-traumatic stress disorder) Anxiety DDD (degenerative disc disease) History of renal stone Arm fracture, left history of Polycystic ovarian disease Endometriosis Cervical cancer Hx LEEP (loop electrosurgical excision procedure), cervix, Asthma Surgical History History of surgery Left arm Hx of cholecystectomy History of lithotripsy History of tonsillectomy and adenoidectomy Hx of section x3 H/O: hysterectomy Family History Father Bipolar disorder Suicide Mother Hypertension Lung cancer Arthritis Sister 4 sisters Obesity Diabetes Hypertension Vision abnormalities Brother 1 brother Bipolar disorder Daughter 3 daughters History of prediabetes Learning disability Asthma Social History Smoking Status: Former smoker Tobacco Type: cigarettes Substance Use Type: Former User Substance Abuse Comment: hx drug/ ETOH abuse quit 7 1/2 years ago Meds Medications and Allergies Allergies latex Allergy (Unknown, Verified 09/28/24 17:07) Rash nickel Allergy (Unknown, Verified 09/28/24 17:07) Rash oxycodone (From Percocet) Allergy (Unknown, Verified 09/28/24 17:07) Rash, HIVES Sulfa (Sulfonamide Antibiotics) Allergy (Unknown, Verified 09/28/24 17:07) Rash silk tape Allergy (Uncoded 02/12/22 22:50) Rash Home Medications multivitamin 1 tab PO DAILY 07/02/18 [History Confirmed 09/28/24] albuterol sulfate 90 mcg/actuation aerosol inhaler (Ventolin HFA) See Rx Instructions .Route .COMPLEX #54 grams 11/23/23 [Rx Confirmed 09/28/24] acetazolamide 250 mg tablet 250 mg PO BID 01/29/24 [History Confirmed 09/28/24] zinc gluconate 50 mg tablet 50 mg PO DAILY 01/29/24 [History Confirmed 09/28/24] montelukast 10 mg tablet See Rx Instructions .Route .COMPLEX #90 tabs 03/08/24 [Rx Confirmed 09/28/24] cetirizine 10 mg tablet 10 mg PO QHS 09/28/24 [History Confirmed 09/28/24] dextroamphetamine-amphetamine 20 mg tablet 20 mg PO DAILY 09/28/24 [History Confirmed 09/28/24] hydroxyzine HCl 50 mg tablet 50 mg PO QHS PRN anxiety 09/28/24 [History Confirmed 09/28/24] magnesium 200 mg tablet 420 mg PO DAILY 09/28/24 [History Confirmed 09/28/24] potassium 99 mg tablet 99 mg PO DAILY 09/28/24 [History Confirmed 09/28/24] Exam Physical Exam Vital Signs: Temp Pulse Resp BP Pulse Ox O2 Del Method 97.7 F 98 22 117/80 98 Room Air 09/29/24 09:00 09/29/24 09:00 09/29/24 09:00 09/29/24 09:00 09/29/24 09:00 09/29/24 09:00 Neuro Other: Attending exam Patient is laying in the bed Pt is alert and oriented x3 NAD Pleasant and cooperative Answers all questions and follows all commands Speech was clear and fluent no aphasia or dysarthria Cranial nerves II through XII pupils are equal reactive to light and accommodation bilaterally, extraocular muscles were intact bilaterally, visual lugo are full, there is no nystagmus, there is no facial asymmetry, tongue is midline good range of motion, palate rises symmetrically, uvula is midline, there are no facial sensory deficits, good bilateral shoulder shrug Pronator drift is negative Coordination shows no signs of dysmetria with good rapid alternating movements [id number] Tone is physiologic Sensation is intact to temperature, light touch and vibratory x 4 extremities Pinprick intact X4 extremities Motor examination RUE 5/5 LUE 5/5 RLE 5/5 LLE 5/5 Babinski is negative Language skills are intact Memory is intact Fund of knowledge is within normal limits Results - Neuro Laboratory Findings 09/28/24 19:55 09/28/24 19:55 Lab Results: ESR 6 mm/hr (0-19) 09/28/24 19:55 Diagnostic Findings Imaging/Impressions: ITS Impressions Chest X-Ray 09/28/24 21:17 IMPRESSION: No acute process. Impression dictated by: Ming Au M.D. 09/28/2024 9:44 PM Dictation Location: [facility] Assessment/Plan (1) IIH (idiopathic intracranial hypertension): (2) History of renal stone: (3) Blurry vision, bilateral: Plan Ms. Nicole is 39F with Ideopathic Intracranial Hypertension since 2021 for which she is followed by Neurologist Dr. Zenaida Cabrera and Neuro-Ophthalmology DrClark Sherwood. After four weeks of returning symptoms typical for increased intracranial pressure (neck pain/stiffness, blurry vision, headache), she had evidence of papilledema on retinal imaging within the last week. She was not able to get an outpatient LP scheduled in an expedient manner, so she was encouraged to come to the ED for a LP to preserve her vision. PLAN: LP planned for today with Radiology. Will follow up on opening pressures and CSFfluid count/cultures. Suspicion for additional factors such as meningitis is unlikely in this setting of known IIH. She is followed closely by Neurology and Ophthalmology for maintenance medication changes, and we will defer further zonisamide/Diamox dosage titrationto outpatient follow up with her established specialists. Patient was personally seen by me on the day of the encounter. I performed the history and performed the long elements of the physical examination. I formulated the plan of care and confirmed this with the Fellow/Nurse Practitioner/Resident/Prepared Foods Production Team Member/Physician Tobacco Warehouse Agent as noted below. 39-year-old female with a long history of idiopathic intracranial hypertension. I actually diagnosed her years ago. She has been following with the [facility] and neuro-ophthalmology and neurology there. Her symptoms over time havefluctuated. She has had side effects from some of the medicines. She has recently had her hormone therapy changed and that may have exacerbated her current symptoms. She is having neck pain stiffness occipital headaches and blurred vision. She did see neuro-ophthalmology who felt she had worsening papilledema. They were trying to schedule an outpatient LP but it was not quickenough and they told her to come to the emergency room. They actually wanted her to go to [facility] but since she had lumbar punctures with Dr. Hopkins before she decided to come here. Were trying to schedule a lumbar puncture for her for drainage however unfortunately we are at the mercy of the schedule and the radiologist being here. She has not been having that has not been on her timeframe but we did senior vice president & general counsel her that we do not have any control over that. She has children graduating from [employer] tomorrow at 1 so we are trying to see if we can get this early in the morning however it will depend on the availability of the radiologist and the fluoroscopy suite being available. She has been a hard stick in the past therefore would like to do it under fluoroscopy. Plan Continue the current medications Trying to get the LP scheduled as quickly as possible she understands that it cannot just be done on demand. We are hopeful that Dr. Hopkins will be available and the fluoroscopy suite be available. Try to keep her comfortable in the meantime When she has her LP she can be discharged This was all discussed with the patient all questions were answered she agreed with the treatment plan Documented By: Janina Soria DO 09/29/24 1132 Signed By: <Electronically signed by DO Janina Soria> 09/29/24 2054 <Electronically signed by MD ANDRES Soliz> 09/29/24 [id number] [facility] Work Phone: 1(152) 588-703105-22-2025 [place] [address] Neurology Consult Note Signed Patient: Karolina Nicole MR#: [id number] : 1985 Acct:[id number] Age/Sex: 39 / F Adm Date: 5 Loc: Room: [address] [place] [address] Type: ADM INOo Attending Dr: Cindy Winslow MD Copies to: MD Janina Meza,MD Mireya Fernandez MD, RES~ HPI Consult Date: 09/29/24 Fur Remodeler: Mireya Soliz MD, RES Reason for consult: intracranial hypertension Consult Narrative HPI: 39-year-old female with history of idiopathic intracranial hypertension. She presented to the emergency room at the urging of her neurologist in order to receive a lumbar puncture for 4 weeks of blurry vision, neck stiffness, headache, and evidence of papilledema on [employer] retinal imaging last Thursday. She had gone to the emergency room last and had a CT brain with and without contrast. The 5-day prednisone burst and 5-day course of Toradol did not help improve her symptoms. She is plannedfor lumbar puncture plus fluid removal with radiology this morning. This will be her third LP for IIH. She states she received her IIH diagnosis in January 2022 and is suspicious that initiation of Premarin in October 2021 was a causative factor. She had an episode of brief fuzzy vision change in November of that year, then in January right-sided white spots in vision. She had papilledema with vision loss that did eventually resolve. First MRI received January 2022. First lumbar puncture received February 2022. After that time, she started on Ozempic for weight loss and was able to lose 50 pounds. She had regained that in the interim years, but has lost 48 pounds in the past 5 months intentionally with strict diet changes. She avoids meats, carbohydrates, processed foods. She eats whole fruits and vegetables and drinks3 to 4 quarts of water daily. She has been following guidance from [facility]: A comprehensive kind to [facility] by Dr. Fredy Ly and is in an [facility] support group. Initially, she was on 500 mg daily of acetazolamide, dosage was escalated to 1250 mg daily over time. Required 2nd LP in August of last year. For the past 7 or 8 days, she has been on 1500 mg Diamox split twice daily. Parafon Forte prescribed 3 weeks ago did not help pain . She attributes the last month of symptoms to switch from Premarin to synthetic estradiol in August. Her Adderrall dosage was also seemingly increased from 30mg total per day to 40mg per day in mid August. She also reports starting Zonisamidein the past 8 or so days with plan to uptitate this dosage while downtitrating Diamox. She reports she has developed kidney stones from the Diamox, and therefore could not start on Topamax. This morning, she is tearful and in pain, switching positions in bedside chair to recline and get more comfortable. She is tearful and complains of severe posterior neck/occipital pressure and blurryvision. this afternoon: The patient has been doctoring at [facility]. Her eye doctor found the papiledema. Her headaches are contstant but will wax and wane. She tried some parafon forteand that helped in the past but then lost its efficacy. She recently switched her hormone pills and they think that may have exacerbatedher symptoms. She states the headache is only better when she is sleeping. It comes up from her traps into her neck into the occipital area. She saw the neuro- [employer] mission systems superintendent who felt that she had significant papilledema. They could not get her on soon enough for a lumbar puncture so they told her to go to the [facility] ER but she ended up coming to this ER. Denies any new numbness tingling or weakness no chest pain shortness of breath Review of Systems Constitutional Constitutional: Denies chills and Denies fever(s) Eyes Eyes: Reports blurry vision and Denies diplopia ENT Ears, Nose, Mouth, and Throat: Denies nasal congestion and Denies nasal discharge Cardiovascular Cardiovascular: Denies chest pain and Denies palpitations Respiratory Respiratory: Denies cough and Denies dyspnea Gastrointestinal Gastrointestinal: Denies nausea and Denies vomiting Genitourinary Genitourinary: Denies dysuria and Denies hematuria Musculoskeletal Musculoskeletal: Denies muscle weakness, Denies numbness and Denies tingling Integumentary/Breasts Skin/Breast: Denies new lesions and Denies rash Neurologic Neurologic: Reports headache(s) and Denies seizure-like activity [facility] Medical History Mixed hyperlipidemia Metabolic syndrome X Fatty liver Exercise counseling Dietary surveillance and counseling Abnormal weight gain BMI 29.0-29.9,adult Overweight (BMI 25.0-29.9) Neck pain Stiff neck Personal history of COVID-19 History of drug abuse Methamphetamines only PTSD (post-traumatic stress disorder) Anxiety DDD (degenerative disc disease) History of renal stone Arm fracture, left history of Polycystic ovarian disease Endometriosis Cervical cancer Hx LEEP (loop electrosurgical excision procedure), cervix, Asthma Surgical History History of surgery Left arm Hx of cholecystectomy History of lithotripsy History of tonsillectomy and adenoidectomy Hx of section x3 H/O: hysterectomy Family History Father Bipolar disorder Suicide Mother Hypertension Lung cancer Arthritis Sister 4 sisters Obesity Diabetes Hypertension Vision abnormalities Brother 1 brother Bipolar disorder Daughter 3 daughters History of prediabetes Learning disability Asthma Social History Smoking Status: Former smoker Tobacco Type: cigarettes Substance Use Type: Former User Substance Abuse Comment: hx drug/ ETOH abuse quit 7 1/2 years ago Meds Medications and Allergies Allergies latex Allergy (Unknown, Verified 09/28/24 17:07) Rash nickel Allergy (Unknown, Verified 09/28/24 17:07) Rash oxycodone (From Percocet) Allergy (Unknown, Verified 09/28/24 17:07) Rash, HIVES Sulfa (Sulfonamide Antibiotics) Allergy (Unknown, Verified 09/28/24 17:07) Rash silk tape Allergy (Uncoded 02/12/22 22:50) Rash Home Medications multivitamin 1 tab PO DAILY 07/02/18 [History Confirmed 09/28/24] albuterol sulfate 90 mcg/actuation aerosol inhaler (Ventolin HFA) See Rx Instructions .Route .COMPLEX #54 grams 11/23/23 [Rx Confirmed 09/28/24] acetazolamide 250 mg tablet 250 mg PO BID 01/29/24 [History Confirmed 09/28/24] zinc gluconate 50 mg tablet 50 mg PO DAILY 01/29/24 [History Confirmed 09/28/24] montelukast 10 mg tablet See Rx Instructions .Route .COMPLEX #90 tabs 03/08/24 [Rx Confirmed 09/28/24] cetirizine 10 mg tablet 10 mg PO QHS 09/28/24 [History Confirmed 09/28/24] dextroamphetamine-amphetamine 20 mg tablet 20 mg PO DAILY 09/28/24 [History Confirmed 09/28/24] hydroxyzine HCl 50 mg tablet 50 mg PO QHS PRN anxiety 09/28/24 [History Confirmed 09/28/24] magnesium 200 mg tablet 420 mg PO DAILY 09/28/24 [History Confirmed 09/28/24] potassium 99 mg tablet 99 mg PO DAILY 09/28/24 [History Confirmed 09/28/24] Exam Physical Exam Vital Signs: Temp Pulse Resp BP Pulse Ox O2 Del Method 97.7 F 98 22 117/80 98 Room Air 09/29/24 09:00 09/29/24 09:00 09/29/24 09:00 09/29/24 09:00 09/29/24 09:00 09/29/24 09:00 Neuro Other: Attending exam Patient is laying in the bed Pt is alert and oriented x3 NAD Pleasant and cooperative Answers all questions and follows all commands Speech was clear and fluent no aphasia or dysarthria Cranial nerves II through XII pupils are equal reactive to light and accommodation bilaterally, extraocular muscles were intact bilaterally, visual lugo are full, there is no nystagmus, there is nofacial asymmetry, tongue is midline good range of motion, palate rises symmetrically, uvula is midline, there are no facial sensory deficits, good bilateral shoulder shrug Pronator drift is negative Coordination shows no signs of dysmetria with good rapid alternating movements [id number] Tone is physiologic Sensation is intact to temperature, light touch and vibratory x 4 extremities Pinprick intact X4 extremities Motor examination RUE 5/5 LUE 5/5 RLE 5/5 LLE 5/5 Babinski is negative Language skills are intact Memory is intact Fund of knowledge is within normal limits Results - Neuro Laboratory Findings 09/28/24 19:55 09/28/24 19:55 Lab Results: ESR 6 mm/hr (0-19) 09/28/24 19:55 Diagnostic Findings Imaging/Impressions: ITS Impressions Chest X-Ray 09/28/24 21:17 IMPRESSION: No acute process. Impression dictated by: Ming Au M.D. 09/28/2024 9:44 PM Dictation Location: [place] [address] Assessment/Plan (1) IIH (idiopathic intracranial hypertension): (2) History of renal stone: (3) Blurry vision, bilateral: Plan Ms. Nicole is 39F with Ideopathic Intracranial Hypertension since 2021 for which she is followed by Neurologist Dr. Zenaida Cabrera and Neuro-Ophthalmology Dr. Lloyd Sherwood. After four weeks of returning symptoms typical for increased intracranial pressure (neck pain/stiffness, blurry vision, headache), she had evidence of papilledema on retinal imaging within the last week. She was not able to get an outpatient LP scheduled in an expedient manner, so she was encouraged to come to the ED for a LP to preserve her vision. PLAN: LP planned for today with Radiology. Will follow up on opening pressures and CSFfluid count/cultures. Suspicion for additional factors such as meningitis is unlikely in this setting of known IIH. She is followed closely by Neurology and Ophthalmology for maintenance medication changes, and we will defer further zonisamide/Diamox dosage titrationto outpatient follow up with her established specialists. Patient was personally seen by me on the day of the encounter. I performed the history and performed the long elements of the physical examination. I formulated the plan of care and confirmed this with the Fellow/Nurse Practitioner/Resident/Prepared [employer] Production Team Member/Physician Tobacco Warehouse Agent as noted below. 39-year-old female with a long history of idiopathic intracranial hypertension. I actually diagnosed her years ago. She has been following with the [facility] and neuro-ophthalmology and neurology there. Her symptoms over time havefluctuated. She has had side effects from some of the medicines. She has recently had her hormone therapy changed and that may have exacerbated her current symptoms. She is having neck pain stiffness occipital headaches and blurred vision. She did see neuro-ophthalmology who felt she had worsening papilledema. They were trying to schedule an outpatient LP but it was not quickenough and they told her to come to the emergency room. They actually wanted her to go to [facility] but since she had lumbar punctures with Dr. Hopkins before she decided to come here. Were trying to schedule a lumbar puncture for her for drainage however unfortunately we are at the mercy of the schedule and the radiologist being here. She has not been having that has not been on her timeframe but we did senior vice president & general counsel her that we do not have any control over that. She has children graduating from [employer] tomorrow at 1 so we are trying to see if we can get this early in the morninghowever it will depend on the availability of the radiologist and the fluoroscopy suite being available. She has been a hard stick in the past therefore would like to do it under fluoroscopy. Plan Continue the current medications Trying to get the LP scheduled as quickly as possible she understands that it cannot just be done on demand. We are hopeful that Dr. Hopkins will be available and the fluoroscopy suite be available. Try to keep her comfortable in the meantime When she has her LP she can be discharged This was all discussed with the patient all questions were answered she agreed with the treatment plan Documented By: Janina Soria, 09/29/24 1132 Signed By: 09/29/24 1736 09/29/24 1202 [facility]05-22-2025 Progress note Author Cindy Winslow [facility] Note Date/Time September 29, 2024 9:03a m [facility] [address] [place] [address] Hospitalist Progress Note Signed Patient: Karolina Nicole MR#: [id number] : 1985 Acct:[id number] Age/Sex: 39 / F Adm Date: 5 Loc: 3T Room: [address] [place] [address] Type: ADM INOo Attending Dr: Cindy Winslow MD Copies to: ~ Date of Service: 09/29/2024 Subjective Subjective Narrative: Patient is a 39-year-old female with history of a idiopathic intracranial hypertension, anxiety complaining of blurry vision and neck stiffness onset 1 month. Patient was found to have papilledema by neuro-[employer] superintendent in [place], and told to schedule an LP for today and if unable to, to go to the ER. She reports light sensitivity, nausea, and issues balancing. She reports having her eyes dilated today. She believes that her IIH was caused by switching from Premarin to estradiol in August 2021, she reports having symptoms since. She reports being on 1500 Mg acetazolamide every day, has taken some 50 this morning. She reports being in Diamox for 2 months. She reports completinga prednisone taper today. previous lumbar puncture performed at [facility] showedelevated opening pressure, meningitis workup is negative. In the ED, the patient appeared restless, states that she began having indigestion after receiving morphine, Zofran, Ativan. 09/29: The aforementioned paragraph was documented by my colleague. Patient continues to report having headaches, blurry vision, discomfort, similarto the past when she had increased intracranial pressure. Exam Physical Exam Vital Signs: Temp Pulse Resp BP Pulse Ox O2 Del Method 97.5 F L 60 18 102/71 97 Room Air 09/29/24 04:00 09/29/24 04:00 09/29/24 04:00 09/29/24 04:00 09/29/24 04:00 09/29/24 04:00 Narrative: [pt is awake and alert. oriented to place, time and person HEENT: [place] conjunctiva and NL buccal mucosa Neck: Supple, no tenderness Endocrine: No Thyromegaly. Vascular: No JVD or carotid bruit. Lymphatic: No cervical lymphadenopathy. Chest: CTA no DTP. Heart RRR, no extra sound or murmur. Abd: Soft, no tenderness, no rebound and no rigidity. Increase abd girth therefore clinically I could not exclude the possibility of intra abd mass or organomegaly. LE: No cyanosis or clubbing, no varices or edema. Neuro: A A O. Nl speech, comprehension and attention. Nl and symetrical motor and tone examination through out. []] Objective Lab Results 09/28/24 19:55 09/28/24 19:55 Meds Allergies and Active Meds Allergies latex Allergy (Unknown, Verified 09/28/24 17:07) Rash nickel Allergy (Unknown, Verified 09/28/24 17:07) Rash oxycodone (From Percocet) Allergy (Unknown, Verified 09/28/24 17:07) Rash, HIVES Sulfa (Sulfonamide Antibiotics) Allergy (Unknown, Verified 09/28/24 17:07) Rash silk tape Allergy (Uncoded 02/12/22 22:50) Rash Active Meds: Active Medications Generic Name Dose Route Start Last Admin Trade Name Freq PRN Reason Stop Dose Admin Acetazolamide 750 mg 09/29/24 09:00 Acetazolamide 250 Mg Tablet PO 09/29/25 08:59 BID NOVA Hydroxyzine Pamoate 50 mg 09/29/24 01:56 Hydroxyzine Pamoate 50 Mg Capsule PO 09/29/25 01:55 QHS PRN anxiety Loratadine 10 mg 09/29/24 22:00 Loratadine 10 Mg Tablet PO 09/29/25 21:59 QHS NOVA Lorazepam 1 mg 09/28/24 22:44 09/29/24 02:15 Lorazepam 2 Mg/Ml Vial IV-PUSH 03/27/25 22:43 1 mg Q4H PRN Administration Agitation Magnesium Oxide 400 mg 09/29/24 09:00 09/29/24 08:54 Magnesium Oxide 400 Mg Tablet PO 09/29/25 08:59 400 mg DAILY NOVA Administration Multivitamins 1 tab 09/29/24 09:00 09/29/24 08:54 Multivitamin 1 Tab Tablet PO 09/29/25 08:59 1 tab DAILY NOVA Administration Sodium Chloride 10 ml 09/28/24 22:44 09/29/24 02:15 Sodium Chloride 0.9 % 10 Ml Vial.Pf INJECTION 09/28/25 22:43 10 ml Q4H PRN Administration Ativan dilution Zinc Gluconate 50 mg 09/29/24 09:00 09/29/24 08:54 Zinc Gluconate 50 Mg Tablet PO 09/29/25 08:59 50 mg DAILY NOVA Administration A&P - Hospitalist Assessment/Plan (1) IIH (idiopathic intracranial hypertension): Plan Idiopathic intracranial hypertension, Hx of. Patient reported having increased headache, blurry vision. 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 Patient reported that she was at the [facility] last week. Neurological imaging and workup were completed. Patient was discharged home. Patient was scheduled to have LP with fluid removal at [facility] next Thursday. Subsequently patient was instructed to come to the emergency room to arrange for an LP sooner than later. Continue Diamox. Patient has been on 1500 mg daily Neuro consultation. LP with opening pressure measurement as well as fluid removal. Check cell count, protein and glucose. Check urine . Patient previously tested for marijuana. Marijuana has been reported to increase inflammatory cytokines and could potentially cause headaches, dizziness and others. Not sure if all of her symptoms could be contributed to intracranial pressure. Not sure if patient would require additional imaging such as MRI, MRV, others. I will discuss with the neuro team. Defer further needed diagnostic and therapeutic intervention related to her neurological symptoms to neurology team Documented By: Cindy Winslow MD 09/29/24 0856 Signed By: <Electronically signed by Cindy Winslow MD> 09/29/24 0903 [facility] Work Phone: [phone]) 551-760605-22-20[place] [address] Hospitalist Progress Note Signed Patient: Karolina Nicole MR#: [id number] : 1985 Acct:[id number] Age/Sex: 39 / F Adm Date: 5 Loc: Room: [address] [place] [address] Type: ADM INOo Attending Dr: Cindy Winslow MD Copies to: ~ Date of Service: 09/29/2024 Subjective Subjective Narrative: Patient is a 39-year-old female with history of a idiopathic intracranial hypertension, anxiety complaining of blurry vision and neck stiffness onset 1 month. Patient was found to have papilledema byneuro-[employer] systems superintendent in [place], and told to schedule an LP for today and if unable to, to go [facility] ER. She reports light sensitivity, nausea, and issues balancing. She reports having her eyes dilated today. She believes that her IIH was caused by switching from Premarin to estradiol in August 2021, she reports having symptoms since. She reports being on 1500 Mg acetazolamide every day, has taken some 50 this morning. She reports being in Diamox for 2 months. She reports completinga prednisone taper today. previous lumbar puncture performed at [facility] showedelevated opening pressure, meningitis workup is negative. In the ED, the patient appeared restless, states that she began having indigestion after receiving morphine, Zofran, Ativan. 09/29: The aforementioned paragraph was documented by my colleague. Patient continues to report having headaches, blurry vision, discomfort, similarto the past when she had increased intracranial pressure. Exam Physical Exam Vital Signs: Temp Pulse Resp BP Pulse Ox O2 Del Method 97.5 F L 60 18 102/71 97 Room Air 09/29/24 04:00 09/29/24 04:00 09/29/24 04:00 09/29/24 04:00 09/29/24 04:00 09/29/24 04:00 Narrative: [pt is awake and alert. oriented to place, time and person HEENT: [place] conjunctiva and NL buccal mucosa Neck: Supple, no tenderness Endocrine: No Thyromegaly. Vascular: No JVD or carotid bruit. Lymphatic: No cervical lymphadenopathy. Chest: CTA no DTP. Heart RRR, no extra sound or murmur. Abd: Soft, no tenderness, no rebound and no rigidity. Increase abd girth therefore clinically I could not exclude the possibility of intra abd mass or organomegaly. LE: No cyanosis or clubbing, no varices or edema. Neuro: A A O. Nl speech, comprehension and attention. Nl and symetrical motor and tone examination through out. []] Objective Lab Results 09/28/24 19:55 09/28/24 19:55 Meds Allergies and Active Meds Allergies latex Allergy (Unknown, Verified 09/28/24 17:07) Rash nickel Allergy (Unknown, Verified 09/28/24 17:07) Rash oxycodone (From Percocet) Allergy (Unknown, Verified 09/28/24 17:07) Rash, HIVES Sulfa (Sulfonamide Antibiotics) Allergy (Unknown, Verified 09/28/24 17:07) Rash silk tape Allergy (Uncoded 02/12/22 22:50) Rash Active Meds: Active Medications Generic Name Dose Route Start Last Admin Trade Name Freq PRN Reason Stop Dose Admin Acetazolamide 750 mg 09/29/24 09:00 Acetazolamide 250 Mg Tablet PO 09/29/25 08:59 BID NOVA Hydroxyzine Pamoate 50 mg 09/29/24 01:56 Hydroxyzine Pamoate 50 Mg Capsule PO 09/29/25 01:55 QHS PRN anxiety Loratadine 10 mg 09/29/24 22:00 Loratadine 10 Mg Tablet PO 09/29/25 21:59 QHS NOVA Lorazepam 1 mg 09/28/24 22:44 09/29/24 02:15 Lorazepam 2 Mg/Ml Vial IV-PUSH 03/27/25 22:43 1 mg Q4H PRN Administration Agitation Magnesium Oxide 400 mg 09/29/24 09:00 09/29/24 08:54 Magnesium Oxide 400 Mg Tablet PO 09/29/25 08:59 400 mg DAILY NOVA Administration Multivitamins 1 tab 09/29/24 09:00 09/29/24 08:54 Multivitamin 1 Tab Tablet PO 09/29/25 08:59 1 tab DAILY NOVA Administration Sodium Chloride 10 ml 09/28/24 22:44 09/29/24 02:15 Sodium Chloride 0.9 % 10 Ml Vial.Pf INJECTION 09/28/25 22:43 10 ml Q4H PRN Administration Ativan dilution Zinc Gluconate 50 mg 09/29/24 09:00 09/29/24 08:54 Zinc Gluconate 50 Mg Tablet PO 09/29/25 08:59 50 mg DAILY NOVA Administration A&P - Hospitalist Assessment/Plan (1) IIH (idiopathic intracranial hypertension): Plan Idiopathic intracranial hypertension, Hx of. Patient reported having increased headache, blurry vision. 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 Patient reported that she was at the [facility] last week. Neurological imaging and workup were completed.Patient was discharged home. Patient was scheduled to have LP with fluid removal at [facility] next Thursday. Subsequently patient was instructed to come to the emergency room to arrange for an LP sooner than later. Continue Diamox. Patient has been on 1500 mg daily Neuro consultation. LP with opening pressure measurement as well as fluid removal. Check cell count, protein and glucose. Check urine . Patient previously tested for marijuana. Marijuana has been reported to increase inflammatory cytokines and could potentially cause headaches, dizziness and others. Not sure if all of her symptoms could be contributed to intracranial pressure. Not sure if patient would require additional imaging such as MRI, MRV, others. I will discuss with the neuro team. Defer further needed diagnostic and therapeutic intervention related to her neurological symptoms to neurology team Documented By: Cindy Winslow MD 09/29/24 0856 Signed By: 09/29/24 0903 [facility]05-22-2025 History and physical note Author Sis Verma [facility] Note Date/Time September 29, 2024 1:47a m [facility] [address] [place] [address] Hospitalist H&P Signed Patient: Karolina Nicole MR#: [id number] : 1985 Acct:[id number] Age/Sex: 39 / F Adm Date: 5 Loc: 3T Room: [address] [place] [address] Type: ADM INOo Attending Dr: Sis Verma DO Copies to: Nestor Langford DO, RES MD Sis Meza DO~ HPI DATE OF EXAMINATION: 09/28/24 CHIEF COMPLAINT: Blurry vision, neck stiffness HISTORY OF PRESENT ILLNESS: Patient is a 39-year-old female with history of a idiopathic intracranial hypertension, anxiety complaining of blurry vision and neck stiffness onset 1 month. Patient was found to have papilledema by neuro-[employer] superintendent in [place], and told to schedule an LP for today and if unable to, to go to the ER. She reports light sensitivity, nausea, and issues balancing. She reports having her eyes dilated today. She believes that her IIH was caused by switching from Premarin to estradiol in August 2021, she reports having symptoms since. She reports being on 1500 Mg acetazolamide every day, has taken some 50 this morning. She reports being in Diamox for 2 months. She reports completinga prednisone taper today. previous lumbar puncture performed at [facility] showedelevated opening pressure, meningitis workup is negative. In the ED, the patient appeared restless, states that she began having indigestion after receiving morphine, Zofran, Ativan. Review of Systems Review of Systems All other systems reviewed & are negative unless noted below or in HPI [facility] Medical History Mixed hyperlipidemia Metabolic syndrome X Fatty liver Exercise counseling Dietary surveillance and counseling Abnormal weight gain BMI 29.0-29.9,adult Overweight (BMI 25.0-29.9) Neck pain Stiff neck Personal history of COVID-19 History of drug abuse Methamphetamines only PTSD (post-traumatic stress disorder) Anxiety DDD (degenerative disc disease) History of renal stone Arm fracture, left history of Polycystic ovarian disease Endometriosis Cervical cancer Hx LEEP (loop electrosurgical excision procedure), cervix, Asthma Surgical History History of surgery Left arm Hx of cholecystectomy History of lithotripsy History of tonsillectomy and adenoidectomy Hx of section x3 H/O: hysterectomy Family History Father Bipolar disorder Suicide Mother Hypertension Lung cancer Arthritis Sister 4 sisters Obesity Diabetes Hypertension Vision abnormalities Brother 1 brother Bipolar disorder Daughter 3 daughters History of prediabetes Learning disability Asthma Social History Smoking Status: Former smoker Tobacco Type: cigarettes Substance Use Type: None Substance Abuse Comment: THC gummie Meds Medications and Allergies Allergies latex Allergy (Unknown, Verified 09/28/24 17:07) Rash nickel Allergy (Unknown, Verified 09/28/24 17:07) Rash oxycodone (From Percocet) Allergy (Unknown, Verified 09/28/24 17:07) Rash, HIVES Sulfa (Sulfonamide Antibiotics) Allergy (Unknown, Verified 09/28/24 17:07) Rash silk tape Allergy (Uncoded 02/12/22 22:50) Rash Home Medications multivitamin 1 tab PO DAILY 07/02/18 [History Confirmed 09/28/24] albuterol sulfate 90 mcg/actuation aerosol inhaler (Ventolin HFA) See Rx Instructions .Route .COMPLEX #54 grams 11/23/23 [Rx Confirmed 09/28/24] acetazolamide 250 mg tablet 250 mg PO BID 01/29/24 [History Confirmed 09/28/24] zinc gluconate 50 mg tablet 50 mg PO DAILY 01/29/24 [History Confirmed 09/28/24] montelukast 10 mg tablet See Rx Instructions .Route .COMPLEX #90 tabs 03/08/24 [Rx Confirmed 09/28/24] cetirizine 10 mg tablet 10 mg PO QHS 09/28/24 [History Confirmed 09/28/24] dextroamphetamine-amphetamine 20 mg tablet 20 mg PO DAILY 09/28/24 [History Confirmed 09/28/24] hydroxyzine HCl 50 mg tablet 50 mg PO QHS PRN anxiety 09/28/24 [History Confirmed 09/28/24] magnesium 200 mg tablet 420 mg PO DAILY 09/28/24 [History Confirmed 09/28/24] potassium 99 mg tablet 99 mg PO DAILY 09/28/24 [History Confirmed 09/28/24] Exam Physical Exam Vital Signs: Temp Pulse Resp BP Pulse Ox O2 Del Method 99.1 F H 89 18 157/116 H 100 Room Air 09/28/24 17:23 09/28/24 21:29 09/28/24 21:29 09/28/24 21:29 09/28/24 21:29 09/28/24 21:29 Narrative: GENERAL: Anxious, alert, oriented HEENT: NC/AT, EOMI CARDIOVASCULAR: Regular rate and regular rhythm, no murmurs/rubs/gallops RESPIRATORY: CTAB, no wheezes/rales/rhonchi ABDOMEN: Soft, non-tender BACK: Mild cervical spine tenderness EXTREMITIES: Sensation intact. No edema SKIN: Intact, no rash, no trauma NEURO: Cranial nerves grossly intact, no focal neurologic signs Results - Hospitalist H&P Lab Results Labs: Laboratory Last Values Corrected WBC 11.3 X10E3/uL (3.8-11.6) 09/28/24 19:55 Uncorrected WBC Count 11.3 x10E3/uL (3.8-11.6) 09/28/24 19:55 RBC 4.63 x10E6/uL (3.60-5.00) 09/28/24 19:55 Hgb 14.4 g/dL (11.8-15.4) 09/28/24 19:55 Hct 41.7 % (34.0-46.4) 09/28/24 19:55 MCV 90.2 fl (80-100) 09/28/24 19:55 MCH 31.1 pg (24.7-34.3) 09/28/24 19:55 MCHC 34.5 g/dL (32.0-35.0) 09/28/24 19:55 RDW 12.6 % (11.9-15.3) 09/28/24 19:55 Plt Count 375 x10E3/uL (150-450) 09/28/24 19:55 MPV 7.3 fl (6.3-10.7) 09/28/24 19:55 Neut % (Auto) N/A 09/28/24 19:55 Lymph % (Auto) N/A 09/28/24 19:55 [place] % (Auto) N/A 09/28/24 19:55 Eos % (Auto) N/A 09/28/24 19:55 Baso % (Auto) N/A 09/28/24 19:55 Nucleat RBC Rel Count N/A 09/28/24 19:55 Neut # (Auto) N/A 09/28/24 19:55 Lymph # (Auto) N/A 09/28/24 19:55 [place] # (Auto) N/A 09/28/24 19:55 Eos # (Auto) N/A 09/28/24 19:55 Baso # (Auto) N/A 09/28/24 19:55 Lymphocytes % 14 % (18-42) L 09/28/24 19:55 Monocytes % 4 % (2-11) 09/28/24 19:55 Myelocytes % 3 % (0-0) H 09/28/24 19:55 Segmented Neutrophils 80 % (50-70) H 09/28/24 19:55 Monocyte Dist Width 17.24 % (0.00-20.00) 09/28/24 19:55 Platelet Estimate Normal (Normal) 09/28/24 19:55 Large Platelets Slight 09/28/24 19:55 Giant Platelets 1 /100 WBC 09/28/24 19:55 Plt Morphology Comment N/A 09/28/24 19:55 RBC Morphology N/A 09/28/24 19:55 Poikilocytosis Slight 09/28/24 19:55 Anisocytosis Slight 09/28/24 19:55 Microcytosis Slight 09/28/24 19:55 Stomatocytes Slight 09/28/24 19:55 ESR 6 mm/hr (0-19) 09/28/24 19:55 PT 10.7 Seconds (9.0-12.9) 09/28/24 19:55 INR 0.9 09/28/24 19:55 APTT 25.7 Seconds (25.1-36.5) 09/28/24 19:55 PHA Creatinine Clear 76.54 09/28/24 19:55 Sodium 141 mmol/L (136-145) 09/28/24 19:55 Potassium 4.0 mmol/L (3.5-5.1) 09/28/24 19:55 Chloride 110 mmol/L (98-107) H 09/28/24 19:55 Carbon Dioxide 21.9 mmol/L (21.0-31.0) 09/28/24 19:55 Anion Gap 13.1 mEq/L (6.0-15.0) 09/28/24 19:55 BUN 17 mg/dL (7-25) 09/28/24 19:55 Creatinine 0.92 mg/dL (0.60-1.20) 09/28/24 19:55 Est GFR (CKD-EPI) > 60.0 mL/Min 09/28/24 19:55 Glucose 100 mg/dL (70-100) 09/28/24 19:55 Lactic Acid 0.8 mmol/L (0.5-1.9) 09/28/24 19:55 Calcium 9.1 mg/dL (8.6-10.3) 09/28/24 19:55 Assessment & Plan Assessment/Plan (1) IIH (idiopathic intracranial hypertension): Plan Idiopathic intracranial hypertension * Admit patient for observation * PRN Ativan for anxiety * Hemodynamically stable, labs reviewed, CXR nonacute. * Planned LP in am with radiology, consult placed Continue home medications for chronic conditions IP vs OBS Justification Based on differential dx, clinical care plan, and risk of adverse events, if untreated, in my clinical judgement this patient requires an acute care setting as: OBSERVATION because of an expectation of an under 2 midnight stay. Estimated length of stay (# of days): 1 <Statement entered by Sis Verma DO - 09/29/24 01:47> The patient is on exam the patient at bedside this evening. Case was discussed and coordinated in conjunction with resident Dr. Langford and agree with management as noted therein. The patient has had worsening symptomatology and states that prior lumbar punctures have been therapeutic as well as diagnostic with elevated opening pressures typically. Interventional radiology has been consulted to perform LP. I discussed with her acetazolamide that she has been taking 750 twice daily which will be continued at this accelerated dosing Documented By: Sis Verma DO 09/28/24 21 32 Signed By: <Electronically signed by Sis Verma DO> 09/29/24 0147 <Electronically signed by DO ANDRES Langford> 09/28/24 [id number] [facility] Work Phone: 1(586) 883-393305-22-2025 [place] [address] Hospitalist H&P Signed Patient: Karolina Nicole MR#: [id number] : 1985 Acct:[id number] Age/Sex: 39 / F Adm Date: 5 Loc: Room: [address] [place] [address] Type: ADM INOo Attending Dr: Sis Verma DO Copies to: Nestor Langford DO, RES MD Sis Meza DO~ HPI DATE OF EXAMINATION: 09/28/24 CHIEF COMPLAINT: Blurry vision, neck stiffness HISTORY OF PRESENT ILLNESS: Patient is a 39-year-old female with history of a idiopathic intracranial hypertension, anxiety complaining of blurry vision and neck stiffness onset 1 month. 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 She reports light sensitivity, nausea, and issues balancing. She reports having her eyes dilated today. She believes that her IIH was caused by switching from Premarin to estradiol in August 2021, she reports having symptoms since. She reports being on 1500 Mg acetazolamide every day, has taken some 50 this morning. She reports being in Diamox for 2 months. She reports completinga prednisone taper today. previous lumbar puncture performed at [facility] showedelevated opening pressure, meningitis workup is negative. In the ED, the patient appeared restless, states that she began having indigestion after receiving morphine, Zofran, Ativan. Review of Systems Review of Systems All other systems reviewed & are negative unless noted below or in HPI [facility] Medical History Mixed hyperlipidemia Metabolic syndrome X Fatty liver Exercise counseling Dietary surveillance and counseling Abnormal weight gain BMI 29.0-29.9,adult Overweight (BMI 25.0-29.9) Neck pain Stiff neck Personal history of COVID-19 History of drug abuse Methamphetamines only PTSD (post-traumatic stress disorder) Anxiety DDD (degenerative disc disease) History of renal stone Arm fracture, left history of Polycystic ovarian disease Endometriosis Cervical cancer Hx LEEP (loop electrosurgical excision procedure), cervix, Asthma Surgical History History of surgery Left arm Hx of cholecystectomy History of lithotripsy History of tonsillectomy and adenoidectomy Hx of section x3 H/O: hysterectomy Family History Father Bipolar disorder Suicide Mother Hypertension Lung cancer Arthritis Sister 4 sisters Obesity Diabetes Hypertension Vision abnormalities Brother 1 brother Bipolar disorder Daughter 3 daughters History of prediabetes Learning disability Asthma Social History Smoking Status: Former smoker Tobacco Type: cigarettes Substance Use Type: None Substance Abuse Comment: THC gummie Meds Medications and Allergies Allergies latex Allergy (Unknown, Verified 09/28/24 17:07) Rash nickel Allergy (Unknown, Verified 09/28/24 17:07) Rash oxycodone (From Percocet) Allergy (Unknown, Verified 09/28/24 17:07) Rash, HIVES Sulfa (Sulfonamide Antibiotics) Allergy (Unknown, Verified 09/28/24 17:07) Rash silk tape Allergy (Uncoded 02/12/22 22:50) Rash Home Medications multivitamin 1 tab PO DAILY 07/02/18 [History Confirmed 09/28/24] albuterol sulfate 90 mcg/actuation aerosol inhaler (Ventolin HFA) See Rx Instructions .Route .COMPLEX #54 grams 11/23/23 [Rx Confirmed 09/28/24] acetazolamide 250 mg tablet 250 mg PO BID 01/29/24 [History Confirmed 09/28/24] zinc gluconate 50 mg tablet 50 mg PO DAILY 01/29/24 [History Confirmed 09/28/24] montelukast 10 mg tablet See Rx Instructions .Route .COMPLEX #90 tabs 03/08/24 [Rx Confirmed 09/28/24] cetirizine 10 mg tablet 10 mg PO QHS 09/28/24 [History Confirmed 09/28/24] dextroamphetamine-amphetamine 20 mg tablet 20 mg PO DAILY 09/28/24 [History Confirmed 09/28/24] hydroxyzine HCl 50 mg tablet 50 mg PO QHS PRN anxiety 09/28/24 [History Confirmed 09/28/24] magnesium 200 mg tablet 420 mg PO DAILY 09/28/24 [History Confirmed 09/28/24] potassium 99 mg tablet 99 mg PO DAILY 09/28/24 [History Confirmed 09/28/24] Exam Physical Exam Vital Signs: Temp Pulse Resp BP Pulse Ox O2 Del Method 99.1 F H 89 18 157/116 H 100 Room Air 09/28/24 17:23 09/28/24 21:29 09/28/24 21:29 09/28/24 21:29 09/28/24 21:29 09/28/24 21:29 Narrative: GENERAL: Anxious, alert, oriented HEENT: NC/AT, EOMI CARDIOVASCULAR: Regular rate and regular rhythm, no murmurs/rubs/gallops RESPIRATORY: CTAB, no wheezes/rales/rhonchi ABDOMEN: Soft, non-tender BACK: Mild cervical spine tenderness EXTREMITIES: Sensation intact. No edema SKIN: Intact, no rash, no trauma NEURO: Cranial nerves grossly intact, no focal neurologic signs Results - Hospitalist H&P Lab Results Labs: Laboratory Last Values Corrected WBC 11.3 X10E3/uL (3.8-11.6) 09/28/24 19:55 Uncorrected WBC Count 11.3 x10E3/uL (3.8-11.6) 09/28/24 19:55 RBC 4.63 x10E6/uL (3.60-5.00) 09/28/24 19:55 Hgb 14.4 g/dL (11.8-15.4) 09/28/24 19:55 Hct 41.7 % (34.0-46.4) 09/28/24 19:55 MCV 90.2 fl (80-100) 09/28/24 19:55 MCH 31.1 pg (24.7-34.3) 09/28/24 19:55 MCHC 34.5 g/dL (32.0-35.0) 09/28/24 19:55 RDW 12.6 % (11.9-15.3) 09/28/24 19:55 Plt Count 375 x10E3/uL (150-450) 09/28/24 19:55 MPV 7.3 fl (6.3-10.7) 09/28/24 19:55 Neut % (Auto) N/A 09/28/24 19:55 Lymph % (Auto) N/A 09/28/24 19:55 [place] % (Auto) N/A 09/28/24 19:55 Eos % (Auto) N/A 09/28/24 19:55 Baso % (Auto) N/A 09/28/24 19:55 Nucleat RBC Rel Count N/A 09/28/24 19:55 Neut # (Auto) N/A 09/28/24 19:55 Lymph # (Auto) N/A 09/28/24 19:55 [place] # (Auto) N/A 09/28/24 19:55 Eos # (Auto) N/A 09/28/24 19:55 Baso # (Auto) N/A 09/28/24 19:55 Lymphocytes % 14 % (18-42) L 09/28/24 19:55 Monocytes % 4 % (2-11) 09/28/24 19:55 Myelocytes % 3 % (0-0) H 09/28/24 19:55 Segmented Neutrophils 80 % (50-70) H 09/28/24 19:55 Monocyte Dist Width 17.24 % (0.00-20.00) 09/28/24 19:55 Platelet Estimate Normal (Normal) 09/28/24 19:55 Large Platelets Slight 09/28/24 19:55 Giant Platelets 1 /100 WBC 09/28/24 19:55 Plt Morphology Comment N/A 09/28/24 19:55 RBC Morphology N/A 09/28/24 19:55 Poikilocytosis Slight 09/28/24 19:55 Anisocytosis Slight 09/28/24 19:55 Microcytosis Slight 09/28/24 19:55 Stomatocytes Slight 09/28/24 19:55 ESR 6 mm/hr (0-19) 09/28/24 19:55 PT 10.7 Seconds (9.0-12.9) 09/28/24 19:55 INR 0.9 09/28/24 19:55 APTT 25.7 Seconds (25.1-36.5) 09/28/24 19:55 PHA Creatinine Clear 76.54 09/28/24 19:55 Sodium 141 mmol/L (136-145) 09/28/24 19:55 Potassium 4.0 mmol/L (3.5-5.1) 09/28/24 19:55 Chloride 110 mmol/L (98-107) H 09/28/24 19:55 Carbon Dioxide 21.9 mmol/L (21.0-31.0) 09/28/24 19:55 Anion Gap 13.1 mEq/L (6.0-15.0) 09/28/24 19:55 BUN 17 mg/dL (7-25) 09/28/24 19:55 Creatinine 0.92 mg/dL (0.60-1.20) 09/28/24 19:55 Est GFR (CKD-EPI) > 60.0 mL/Min 09/28/24 19:55 Glucose 100 mg/dL (70-100) 09/28/24 19:55 Lactic Acid 0.8 mmol/L (0.5-1.9) 09/28/24 19:55 Calcium 9.1 mg/dL (8.6-10.3) 09/28/24 19:55 Assessment & Plan Assessment/Plan (1) IIH (idiopathic intracranial hypertension): Plan Idiopathic intracranial hypertension * Admit patient for observation * PRN Ativan for anxiety * Hemodynamically stable, labs reviewed, CXR nonacute. * Planned LP in am with radiology, consult placed Continue home medications for chronic conditions IP vs OBS Justification Based on differential dx, clinical care plan, and risk of adverse events, if untreated, in my clinical judgement this patient requires an acute care setting as: OBSERVATION because of an expectation of an under 2 midnight stay. Estimated length of stay (# of days): 1 The patient is on exam the patient at bedside this evening. Case was discussed and coordinated in conjunction with resident Dr. Langford and agree with management as noted therein. The patient has had worsening symptomatology and states that prior lumbar punctures have been therapeutic as well as diagnostic with elevated opening pressures typically. Interventional radiology has been consulted toperform LP. I discussed with her acetazolamide that she has been taking 750 twice daily which will be continued at this accelerated dosing Documented By: Sis Verma DO 09/28/24 21 32 Signed By: 09/29/24 0147 09/28/24 2324 [facility]05-21-2025 Evaluation note* Diagnosis Onset Date Resolution Status Admit Date Blurry vision, bilateral acute September 28, 2024 9:15pm History of renal stone acute Ma y 2024 9:15pm History of stiff neck acute September 28, 2024 9:15pm IIH (idiopathic intracranial hypertension) acute September 28, 2024 9 :15pm [facility] Work Phone: 1(783) 374-739305-21-2025 NoteHNO ID: [id number] Author: LLOYD SHERWOOD MD Service: ? Author Type: Physician Type: Progress Notes Filed: 09/28/2024 15:17 Note Text: Karolina Nicole is a 39 year old right-handed woman who returns for her history of idiopathic intracranial hypertension (IIH). At initial consultation on June 14, 2024, the patient reported vision loss in her right eye in 2021 for which she underwent work up that confirmed intracranial hypertension based on an opening pressure on lumbar puncture of 34 cm H2O. She was put on diamox in addition to ozempic with resultant 50 pound weight loss. 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 The diamox was discontinued at the end of 2022. She then developed worsening headaches while sick with multiple infections from May 2023 to August 2023. She ultimately underwent repeat lumbar puncture with opening pressure recorded at ~31 cm H2O at an outside facility on 08/25/23 per patient. She then established with neurology at [facility] in September of 2023 and was put on diamox. She was followed by Dr. Goldberg as well as Dr. Cabrera. At initial consultation in my clinic she was maintained on diamox 500 mg twice a day. She was recently diagnosed with nephrolithiasis in the setting of diamox for which nephrology consultation was pending. She had experienced positional headaches, peripheral vision loss (bilateral inferotemporally per patient), transient visual obscurations, and pulsatile tinnitus. She denied diplopia. She gained back the initial 50 but lost 40 pounds in the preceding 4 months. She denied exposure to topical retin-A / accutane or recent COVID-19 infection. Was on a tetracycline in February. 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 The patient's initial neuro-ophthalmic exam on 06/14/2024 showed overall good afferent visual pathway function with the exception of trace bilateral blind spot enlargement on marie visual field -- which was consistent with her report of IT visual field deficits. There was no active optic disc edema with only chronic appearing disc elevation. There was specifically no optic disc drusen, which was corroborated by bscan. This was of course of on therapeutic diamox dosing. Monitoring was planned. ASSESSMENT/PLAN: (G93.2) IIH (idiopathic intracranial hypertension) (primary encounter diagnosis) (H53.453) Other localized visual field defect, bilateral At her 09/28/2024 return visit she reported that perhaps the estradiol had provoked her symptoms 08/11/24 with resultant neck stiffness and severe headaches reportedly improved while supine. She increased up to 1500 mg total daily of diamox. Today's repeat exam showed decreased best corrected visual acuity both eyes with intact color vision and worsening scattered arcuate zone areas of decreased sensitivity on the left visual field. There was no active optic disc edema either eye. Bscan was also negative for indirect of intracranial hypertension. She discontinued the estradiol given the timing with her symptoms and would proceed with lumbar puncture ordered by neurologist Dr. Cabrera (with whom I have discussed her care) - to either be completed by IR or locally if sooner. We discussed the opening pressure on the lumbar puncture being less acrurate while on diamox but given the complete clinical picture she planned to proceed as this would also exclude alternative etiologies such as meningitis given the ongoing neck stiffness which could certainly be multifactorial. I will then plan to see her back by interval virtual visit after the lumbar puncture at which time we can discuss the plan for diamox and management going forward, unless concerns arise in the interim, for which she was provided my contact information and encouraged to reach out. ER presentation is otherwise advised for any acute onset neurological deficits. Our [facility] same day access clinic can be reached at: [phone]. Lloyd Sherwood MD 3:14 PM 09/28/2024 FOR ADMINISTRATIVE PURPOSES ONLY: My impression of this case is based upon an assessment of the patient's subacute on chronic problems listed above that pose a threat to visual and neurologic function. 46 minutes were spent on total patient care on the day of service that includes both [id number] and ear-qspg-hk-face time. This time was separate from any of my time spent completing and interpreting the ancillary testing (such as OCT, fundus photos, visual lugo) and sensorimotor exam, if applicable. This time was broken down into: 5 minutes reviewing the patient record before the visit, 10 minutes performing a medically appropriate neuro-ophthalmic history and exam (excluding time spent on the ancillary testing and sensorimotor exam, if applicable), 5 communicating results to the patient/family, 13 minutes counseling / educating the patient, 5 minutes documenting clinical information into the electronic health rec (more content not included)...[facility]05-19-20[facility] Instructions* Patient Instructions* Zenaida Cabrera DO - 09/26/2024 2:46 PM EDT Diagnosis: Chronic Migraine Idiopathic Intracranial Hypertension with prior papilledema Cervicalgia Treatment Plan: Preventative Medication: Continue Diamox 750 2x daily plans to restart premarin 0.5 mg for menopausal sx (post hysterectomy) Abortive Medication: Discussed options such: greater occipital nerve block(s) or 3 days of IV infusion therapy Finish 5-day course of oral Toradol, and prednisone taper. Lab tests: CBC/BMP - get 1 week after finish steriods. Will reach out to Dr. Sherwood about recent ophto testing compared to Jun. [facility] History of Present illness Narrative* Angie Alvarado MD - 09/26/2024 1:00 PM EDT Images from the original note were not included. VIRTUAL VISIT This is a virtual visit using HIPAA compliant video platform. All issues as below were discussed and addressed but no physical exam was performed unless allowed by visual confirmation. If it was feltthat the patient should be evaluated in clinic then they were directed there. Patient and/or parent(s) verbally consented to visit. I have communicated my name and active licensure. The patient's identity and physical location wereverified at the time of this visit. Either the patient or their legal membership sales representative has been informed of the risks and benefits of -- and alternatives to -- treatment through a remote evaluation andconsents to proceed with the evaluation remotely. [facility]: Headache follow-up Follow-up Visit Last visit date: 2 days ago, last with me 1 month ago From last impression & plan: Karolina Nicole is a 39 year old year old female, with a history of IIH, chronic migraine, cervicalgia, and fibromyalgia following up today virtually for headaches. 1. IIH (idiopathic intracranial hypertension) (G93.2) 2. Chronic migraine without aura without status migrainosus, not intractable (G43.709) 3. Encounter for medication monitoring (Z51.81) - Persistent headache over the last 3.5 weeks in the setting of reducing diamox dosing. - Currently on acetazolamide 750 mg BID; recent increase from 1250 mg/day to 1500 mg/day over the past 3-4 days. - Discussed options for bridge therapy such as depakote taper, toradol bridge, greater occipital nerve block(s) or 3 days of IV infusion therapy. She is not interested in the depakote taper. - At this time she is requesting a repeat LP for immediate relief . [facility] Dr[facility] Francis [facility] - She was agreeable to a 5-day course of oral Toradol to start over the weekend, 3 times daily, to be taken in conjunction with the current prednisone taper. - Ordered repeat BMP and CBC to be drawn after one week on the current acetazolamide dose to monitor for any metabolic changes. - Follow up 09/26/[address] Cabrera Interval History: 3.5 weeks ago she developed new headache pressure in the back of her neck. Her headaches are triggered by neck flexion and pressure and typing at work. She has had a headache daily for 3.5 weeks aside from 2 days (1 day after PF cycle breaker and 1 with ED cocktail). The headache are a/w nausea, photo/phonophobia and vomiting. Vision changes - she is having more difficulty, blurry vision but not double, no black outs, no loss of vision. She continues to have positional pulsatile tinnitus. She does recall that she was changed from premarin to estardiol as of 08/11 due to insurance changes and she has been working with [employer] to get back on her premarin (could not afford this prior when not insurance) She is adamantly not interested in anti-depressants or blood pressure medication for migraines. Sheis adamant that these headaches are not migraines and only related to IIH. Her diamox is 750 mg BID as of the last week, this has helped. She started toradol 10 mg 3x Thursday and this has helped some and finishing last days of prednisone doses from (09/20) She is now at a 7/10 headache pain and improved. She is most upset about her impairment parenting and work with these headaches. Answers submitted by the patient for this visit: Headache Questionnaire (Submitted on 09/23/2024) How many days of work or school have you missed due to headaches in the last month? : 3 In the last month, how many headache days did you experience ALL of the following symptoms: decreased productivity, light sensitivity and nausea?: 25 How many days have you been completely free of headache pain in the last month? 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 HEADACHE SCORES: 08/08/2024 08/22/2024 09/23/2024 Headache Questions ER visits since last office visit: 1 Hospital stays since last office visit 0 Limited ADLs in the last month: 25 Days missed from work or school in the last month: 3 Days headache pain free in the last month: 5 Days per month with ALL of the following symptoms - decreased productivity, light sensitivity and nausea: 25 Initial improvement of headache after botox injection at last visit: Not applicable, I did not havea botox injection at my last visit Not applicable, I did not have a botox injection at my last visit Not applicable, I did not have a botox injection at my last visit PRN medication usage in the last month: 20 Patient impression of improvement since last visit: Much improved Minimally worse Very much worse 07/22/2024 08/22/2024 09/23/2024 HIT-6 HIT-6 67 (Severe impact) Incomplete 74 (Severe impact) 07/22/2024 08/22/2024 09/23/2024 CONCHA - 2/7 SCORES CONCHA-2 Score 3 2 3 3 CONCHA-7 Score 10 8 8 07/22/2024 08/22/2024 09/23/2024 Migraine Specific QOL - Higher scores indicate better HRQL Role Function-Restrictive Transformed Score (range: 0-100) 60 60 8.57 Role Function-Preventive Transformed Score (range: 0-100) 60 60 45 Emotional Function Transformed Score (range: 0-100) 53.33 60 13.33 05/30/2024 07/22/2024 09/23/2024 PHQ-9 Score 9 8 10 10 Physical Exam: General: well appearing, in no acute distress, alert. Pain Behaviors: no pain behaviors observed. Skin: No visible rashes or lesions. Neurological: Mental Status: Alert and oriented to person. Affect is normal. Speech is spontaneous and fluent without dysarthria. Cranial Nerves: No nystagmus appreciated. Face is symmetric without evidence of weakness. Hearing intact. Motor Exam: Normal muscle bulk by visual examination. Upper extremities antigravity. Cerebellar: No ataxia or tremor appreciated. IMPRESSION: Karolina Nicole is a 39 year old who presents for follow up regarding: H/o IIH with papilledema Chronic migraine Cervicalgia She had IIH diagnosed in 2021 with a vision loss in right eye in 2021, then LP with OP of 34, started diamox and ozempic with 50# wieght loss. Repeat LP 08/2023 - with OP 31 and papilledema so diamox restarted. She developed nephrolithiasis in the setting of diamox, and strongly desired to come off,so switched to zonisamide that was not tolerated, and remained on diamox 750/500 and her last eye exam 06/[address] Sherwood showed no active disc edema only chronic disc elevation, with stable OCT and slight nonspecific blind spot defects b/l on VF. Her updated bMRI and MRV 06/2024 were also stablewith subtle venous b/l TV stenosis and mild signs seen with IIH (ON tortuosity and partially empty sella). As of September she reports worsening headaches and pressure sensation (photophobia and nausea, responsive to ED edna cocktail 09/22). She had her local provider/employer do an eye exam with RNFL appearing similar to prior with Dr. Sherwood (OCT testing RNFL thickness from September appears comparable to Jun, and not worse (September = 91 and 88 and Jun = 86 and 85) and typically in IIH that is active would have RNFL thickness increased like in the 200s (normal is around 97-113), and there was no visual field impairments and the VF testing of the right eye was very similar to Feburary on the testing - but ultimately I am not an airborne mission systems superintendent and Dr. Sherwood needs to evaluation her. CTV was negative in the ED 09/22. We discussed that likely her symptoms are from migraine flare (likely 2/2 estrogen change) notably as she has had improvement with migraine medications and improvement over the weekend with toradol and finishing steroid taper. This could be a possible IIH flare with diamox reduction, thought with this stable appearing ophtho evaluation this is less likely. Thus I highly recommended various preventative medications for migraine, but she declined them all and states her headaches are only IIH notmigraine. I also offered repeat LP 09/23 to help sx and assess the pressure/IIH contributions (though will be skewed (lowered) while on diamox), though this is not custodial definitive treatment, but she denied at this time. Diagnosis: Chronic Migraine Idiopathic Intracranial Hypertension with prior papilledema Cervicalgia Treatment Plan: Preventative Medication: Continue Diamox 750 BID She plans to restart premarin 0.5 mg for menopausal sx (post hysterectomy) Abortive Medication: Discussed options such: greater occipital nerve block(s) or 3 days of IV infusion therapy Finish 5-day course of oral Toradol, rec to start over the weekend, 3 times daily, to be taken in conjunction with the current prednisone taper. LP previously ordered 09/23, she is not interested in this now with improvement Lab tests: CBC/BMP - get 1 week after finish steriods. Will reach out to Dr. Sherwood about recent ophto testing compared to Jun. Education: The medication side effects, adverse reactions and drug interactions for prescribed medications were reviewed. Written educational materials and patient instructions outlining the above were given in AVS. Future Considerations: offered beta serge (propranolol), SNRI not interested - follow up in 3 [address] discussed with Dr. Alvarado, staff Neurologist. Zenaida Cabrera DO, PAXTON Headache Medicine Fellow, PGY5 Adult Neurologist/ Board Certified Headache & Facial Pain Section, [place] [facility] Attending Note: I have reviewed the progress note obtained and documented by the fellow, Dr. Cabrera . I personally participated as the supervising physician by concurrently monitoring the patient care through appropriate telecommunication technology. I have discussed the management options and their respective risks and benefits with the trainee. I also made the necessary revisions in the above documentation and the note reflects my input.I fully agree with the recommendations as outlined above. Angie Alvarado MD documented in this encounter[facility] NoteHNO ID: [id number] Author: ANGIE ALVARADO MD Service: ? Author Type: Physician Type: Progress Notes Filed: 09/26/2024 16:10 Note Text: VIRTUAL VISIT This is a [...] visit. Either the patient or their legal membership sales representative has been informed of the risks and benefits of -- and alternatives to -- treatment through a remote evaluation and consents to proceed with the evaluation remotely. Headache and Facial Pain Section [facility] [place] [facility]: Headache follow-up Follow-up Visit Last visit date: 2 days ago, last with me 1 month ago From last impression AND plan: Karolina Nicole is a 39 year old year old female, with a history of IIH, chronic migraine, cervicalgia, and fibromyalgia following up today virtually for headaches. 1. IIH (idiopathic intracranial hypertension) (G93.2) 2. Chronic migraine without aura without status migrainosus, not intractable (G43.709) 3. Encounter for medication monitoring (Z51.81) - Persistent headache over the last 3.5 weeks in the setting of reducing diamox dosing. - Currently on acetazolamide 750 mg BID; recent increase from 1250 mg/day to 1500 mg/day over the past 3-4 days. - Discussed options for bridge therapy such as depakote taper, toradol bridge, greater occipital nerve block(s) or 3 days of IV infusion therapy. She is not interested in the depakote taper. - At this time she is requesting a repeat LP for immediate relief . Will consult with Dr. Francis and provide follow-up via [facility]. - She was agreeable to a 5-day course of oral Toradol to start over the weekend, 3 times daily, to be taken in conjunction with the current prednisone taper. - Ordered repeat BMP and CBC to be drawn after one week on the current acetazolamide dose to monitor for any metabolic changes. - Follow up 09/26/[address] Cabrera Interval History: 3.5 weeks ago she developed new headache pressure in the back of her neck. Her headaches are triggered by neck flexion and pressure and typing at work. She has had a headache daily for 3.5 weeks aside from 2 days (1 day after PF cycle breaker and 1 with ED cocktail). The headache are a/w nausea, photo/phonophobia and vomiting. Vision changes - she is having more difficulty, blurry vision but not double, no black outs, no loss of vision. She continues to have positional pulsatile tinnitus. She does recall that she was changed from premarin to estardiol as of 08/11 due to insurance changes and she has been working with [employer] to get back on her premarin (could not afford this prior when not insurance) She is adamantly not interested in anti-depressants or blood pressure medication for migraines. She is adamant that these headaches are not migraines and only related to IIH. Her diamox is 750 mg BID as of the last week, this has helped. She started toradol 10 mg 3x Thursday and this has helped some and finishing last days of prednisone doses from (09/20) She is now at a 7/10 headache pain and improved. She is most upset about her impairment parenting and work with these headaches. Answers submitted by the patient for this visit: Headache Questionnaire (Submitted on 09/23/2024) How many days of work or school have you missed due to headaches in the last month? : 3 In the last month, how many headache days did you experience ALL of the following symptoms: decreased productivity, light sensitivity and nausea?: 25 How many days have you been completely free of headache pain in the last month? 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 HEADACHE SCORES: 08/08/2024 08/22/2024 09/23/2024 Headache Questions ER visits since last office visit: 1 Hospital stays since last office visit 0 Limited ADLs in the last month: 25 Days missed from work or school in the last month: 3 Days headache pain free in the last month: 5 Days per month with ALL of the following symptoms - decreased productivity, light sensitivity and nausea: 25 Initial improvement of headache after botox injection at last visi (more content not included)...[facility]* Patient Instructions* Faith Weir PA-C - 09/23/2024 1:27 PM EDT Maintain diamox at 750mg twice daily for now Continue prednisone taper 5 day toradol burst sent in to take in tandem with steroid to help calm down headache I will review LP with Dr. Cabrera and send you a message with an update documented in this encounterMer[facility]-16-[facility] History of Present illness Narrative* Faith Weir PA-C - 09/23/2024 1:00 PM EDT Images from the original note were not included. Headache Center - Follow up Virtual Visit This visit was conducted as a virtual visit, with patient's permission, via Zoom. Patient location - [place] was identified by name and and consented to the video evaluation and its limitations. Based on this evaluation it may be necessary for them to schedule a follow up evaluation with me or other neurologists for formal physical examination and if necessary,other studies. I have communicated my name and active licensure. The patient's identity and physical location were verified at the time of this visit. Either the patient or their legal membership sales representative has been informed of therisks and benefits of -- and alternatives to -- treatment through a remote evaluation and consents to proceed with the evaluation remotely. Accompanied by: Self Primary Problem List: There is no problem list on file for this patient. Chief Complaint: Headaches Impression and Plan from last visit: 08/24/[address] Cabrera Impression: As well as multiple other complaints: Disturbance of skin sensation over the lateral aspect of the thigh both on the right and on the left, Tingling - Numbness/tingling in the hands, ongoing for 12 months She had IIH diagnosed in 2021 with a vision loss in right eye in 2021, then LP with OP of 34, started diamox and ozempic with 50# wieght loss and then stopped them at the end of 2022. Another LP 08/2023 - with OP 31 and papilledema so put back on diamox. She developed nephrolithiasis in the setting of diamox for which urology consulted and has f/u with nephrology for small 2-3mm stones. She tells me she was closer to #198 9 months ago and now down to #150 with diet changes. Her vision has been stable on diamox 750/500, with last eye exam 06/[address] Sherwood with no active disc edema only chronic disc elevation, with stable OCT and slight nonspecific blind spot defectsb/l on VF. Her updated bMRI and MRV 06/2024 were also stable without stenosis and mild signs seen with IIH (ON tortuosity and partially empty sella). And reports improved headaches the last few monthsas well, notably she attributes this to her dietary changes and diamox. She reports a strong dislike for diamox but also anxious about coming off it and such we will work to replace it with zonisamide. Plan: Diagnosis: Idiopathic Intracranial Hypertension with prior papilledema Cervicalgia Chronic Migraine Multiple other complaints: Disturbance of skin sensation over the lateral aspect of the thigh both on the right and on the left Tingling Numbness/tingling in the hands, ongoing for 12 months Workup: Neuro-ophthalmogy follow up 11/2024 Nephrology follow up 09/16/2024 Preventive: Reduce diamox 500mg BID - informed if she starts to have any vision changes or worsening vision symptoms please let me know and we will get you in to see ophthmology sooner Discussed:The importance of a low-salt diet and weight loss through healthy diet and exercise, as weight loss is disease modifying, and goal loss of 15% as this significantly reduces papilledema and Headaches (she has lost over 15% at this point from 198 to 155, 15% would be 30#) Start Zonisamide titration to 100 mg qhs, then will work to wean off diamox by 250 mg every 3 days. Next steps: Replace diamox with methazolamide, furosemide - topiramate or zonisamide Follow-Up: 4-6 months Interval Headache History: Karolina Nicole is a 39 year old year old female, with a history of IIH, chronic migraine, cervicalgia, and fibromyalgia following up today virtually for headaches. She recently failed parafon fortebridge. Dr. Cabrera sent in prednisone taper on 09/20/24 and increased her diamox to 750mg BID on 09/21/24. She was seen in the [facility] ED last night into this morning - given IV medications and had CTV. Dr. Sherwood has recommended 1000mg BID of diamox if needed after checking BMP. She has been experiencing a persistent headache for the past three and a half weeks, accompanied byintermittent blurry vision. She has been in contact with her neuro-airborne mission systems superintendent, Dr. Sherwood, who advised her to visit the emergency room due to the duration of her symptoms. In the emergency room, a CT scan was performed, and she received IV Toradol and Benadryl, which provided relief until this morning. She attributes the onset of her current headache to a reduction in her acetazolamide (Diamox) dosage. Previously, she was taking 1250 mg daily (500 mg in the morning and 750 mg in the evening). She reduced the dosage by 250 mg while starting zonisamide, but after eight to nine days, her headache began and has persisted since. She believes the reduction in acetazolamide triggered her symptoms and expresses regret for decreasing the dosage. She has since increased her acetazolamide to 1500 mg daily (750 mg twice a day) for the past three to four days but reports no improvement. She is hesitant to increase the dosage further due to concerns about side effects. She expresses a strong desire for immediate relief and requests a repeat lumbar puncture (LP), stating that she felt better after herlast LP. She has also been taking a prednisone burst for the past three days, but reports no significant improvement. She previously took Parafon Forte two weeks ago, which was effective in the past but not recently. She expresses frustration with her current treatment and is seeking immediate relief. She reports tenderness at the base of her skull and is concerned about the impact of her symptoms on her ability to care for her three daughters. 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 Preventative: diamox 750mg BID Contraception: s/p hysterectomy Anti-Convulsant Zonisamide (Zonegram) topamax should be avoided due to hx of kidney stones Anti-Depressant and Antipsychotic Antidepressants should be avoided due to risk of weight gain worsening IIH. Blood Pressure Beta blockers should be avoided due to risk of weight gain worsening IIH. Muscle Relaxer Tizanidine (Zanaflex) Sleep Aids diamox PAST MEDICAL HISTORY Diagnosis Date Fibromyalgia IIH (idiopathic intracranial hypertension) Osteoarthritis of multiple joints Palindromic rheumatism PAST SURGICAL HISTORY Procedure Laterality Date LAPAROSCOPIC CHOLECYSTECTOMY 07/29/2023 LAPAROSCOPY-ORBERTO 10/19/2012 LIGATE FALLOPIAN TUBE Bilateral 12/15/2011 REMOVAL OF OVARY/TUBE(S) Bilateral 10/19/2012 TOTAL ABDOM HYSTERECTOMY 10/19/2012 ALLERGIES Allergen Reactions Adhesive Rash Latex Rash Levaquin [Levofloxa* Swelling Swelling tongue Nickel Rash, Unknown Oxycodone Rash Oxycodone-Acetamino* Rash Silk Other: See Comments Silk tape Sulfadiazine Rash Sulfamethoxazole-Tr* Swelling Adhesive Tape (Cammie* Hives, Itching Current Medications: estradiol (ESTRACE) 0.5 mg tablet Take 1 tablet by mouth once daily. acetaZOLAMIDE (DIAMOX) 250 mg tablet Take 3 tablets by mouth every morning AND 3 tablets daily at bedtime. predniSONE (DELTASONE) 20 mg tablet Take 2 tablets (40 mg) twice daily for 2 days (80 mg total in aday) THEN Take 1.5 tablets (30 mg) twice daily for 2 days (60 mg total in a day)THEN Take 1 tablet (20 mg) twice daily for 2 days (40 mg total in a day) THEN Take 0.5 tablets twice daily for 2 days (20 mg total in a day) then DONE hydrOXYzine pamoate (VISTARIL) 50 mg capsule Take 50 mg by mouth daily at bedtime. dextroamphetamine-amphetamine (ADDERALL) 20 mg tablet Take 20 mg by mouth once daily. Zinc Acetate, Oral, 50 mg (zinc) cap Take 50 capsules by mouth once daily. Cetirizine 10 mg cap mv,calcium,min/iron/folic/vitK (MULTI FOR HER ORAL) montelukast (SINGULAIR) 10 mg tablet Montelukast Active 10 MG PO Daily March 24, 2021 12:00am estrogens, conjugated (PREMARIN ORAL) Take by mouth. POTASSIUM-99 ORAL Take by mouth. keTORolac (TORADOL) 10 mg tablet Take 1 tablet by mouth three times a day with meals for 5 days. Take with food. Do not take any OTC pain relievers while taking. I have reviewed the Health Status Assessment responses and discussed these with the patient: yes Faith Weir PA-C HEADACHE SCORES: 08/08/2024 08/22/2024 09/23/2024 Headache Questions ER visits since last office visit: 1 Hospital stays since last office visit 0 Limited ADLs in the last month: 25 Days missed from work or school in the last month: 3 Days headache pain free in the last month: 5 Days per month with ALL of the following symptoms - decreased productivity, light sensitivity and nausea: 25 Initial improvement of headache after botox injection at last visit: Not applicable, I did not havea botox injection at my last visit Not applicable, I did not have a botox injection at my last visit Not applicable, I did not have a botox injection at my last visit PRN medication usage in the last month: 20 Patient impression of improvement since last visit: Much improved Minimally worse Very much worse 07/22/2024 08/22/2024 09/23/2024 HIT-6 HIT-6 67 (Severe impact) Incomplete 74 (Severe impact) 07/22/2024 08/22/2024 09/23/2024 CONCHA - 2/7 SCORES CONCHA-2 Score 3 2 3 3 CONCHA-7 Score 10 8 8 07/22/2024 08/22/2024 09/23/2024 Migraine Specific QOL - Higher scores indicate better HRQL Role Function-Restrictive Transformed Score (range: 0-100) 60 60 8.57 Role Function-Preventive Transformed Score (range: 0-100) 60 60 45 Emotional Function Transformed Score (range: 0-100) 53.33 60 13.33 05/30/2024 07/22/2024 09/23/2024 PHQ-9 Score 9 8 10 10 Studies to Review: No MRI Head/Brain - Last 2 Impressions MRI BRAIN WO IVCON Exam End: 07/03/2024 12:01 PM (Edited Result - FINAL) Addendum: * * *Final Report* * * * * * SEE BOTTOM OF REPORT FOR ADDENDED TEXT * * * DATE OF EXAM: Jul 03 2024 12:01PM FVM [id number] - MRI BRAIN WO IVCON / PROCEDURE REASON: IIH (idiopathic intracranial hypertension) ... MRI Cervical Spine - Last 2 Impressions MRI CERVICAL SPINE WO IVCON Exam End: 07/03/2024 12:01 PM (Final result) Impression: IMPRESSION: 1. Essentially normal examination of the cervical spine. 2. Mild degenerative change at L5-S1. Cervical Anatomic Variant: None. Assume 7 cervical vertebrae with counting from the craniocervical junction. Anatomic Thoracic/Lumbar Variant: None. L4-5 is considered the level of the iliac crest and assume there are 5 lumbar-type vertebrae. Wet Washer Machine: PSCB Transcribe Date/Time: Jul 03 2024 2:13P Dictated by : GERARD FLORES MD This examination was interpreted and the report reviewed and electronically signed by: GERARD FLORES MD on Jul 03 2024 2:21PM EST Labs to Review: No - Most recent CMP and CBC below Latest Ref Rng & Units 09/22/2024 CMP Sodium 136 - 144 mmol/L 138 Potassium 3.7 - 5.1 mmol/L 3.6 Chloride 98 - 107 mmol/L 109 CO2 22 - 30 mmol/L 14 Glucose 74 - 99 mg/dL 162 BUN 7 - 21 mg/dL 20 Creatinine 0.58 - 0.96 mg/dL 0.75 EGFR >=60 mL/min/1.73m 104 Calcium 8.5 - 10.2 mg/dL 9.3 Latest Ref Rng & Units 09/22/2024 CBC WBC 3.70 - 11.00 k/uL 14.59 RBC 3.90 - 5.20 m/uL 4.23 Hemoglobin 11.5 - 15.5 g/dL 13.3 Hematocrit 36.0 - 46.0 % 36.2 MCV 80.0 - 100.0 fL 85.6 MCH 26.0 - 34.0 pg 31.4 MCHC 30.5 - 36.0 g/dL 36.7 RDW-CV 11.5 - 15.0 % 12.1 Platelet Count 150 - 400 k/uL 330 MPV 9.0 - 12.7 fL 9.5 Baso% % 0.1 Abs Neut (ANC) 1.45 - 7.50 k/uL 12.90 Abs Lymph 1.00 - 4.00 k/uL 1.24 Abs [place] <0.87 k/uL 0.29 Abs Eosin <0.46 k/uL <0.03 Abs Baso <0.11 k/uL <0.03 NRBC /100 WBC 0.0 Review of Systems: Review of system: Patient reports no change from the prior visit. Physical Examination: Vital Signs: No vital signs taken for this visit due to nature of virtual visit. General: well appearing, in no acute distress, alert Pain Behaviors: tearful, crying Neurological: Mental Status: Alert and oriented to person, place and time. Affect is normal. Speech is spontaneous and fluent without dysarthria. Short and custodial memory, cognition and general fund of knowledgeare good. Attention span and concentration are excellent. HEENT: Head is normocephalic and features were symmetric. Musculoskeletal: Patient able to sit up right in chair for entirety of visit. Cranial Nerves: III, IV, -EOMI: full. VII-face is symmetric without evidence of weakness. VIII-hearing intact. IMPRESSION/PLAN: Iih (idiopathic intracranial hypertension) (primary encounter diagnosis) Chronic migraine without aura without status migrainosus, not intractable Encounter for medication monitoring Karolina Nicole is a 39 year old year old female, with a history of IIH, chronic migraine, cervicalgia, and fibromyalgia following up today virtually for headaches. Their neurological examination isessentially normal at this visit although this is limited due to nature of telehealth. 1. IIH (idiopathic intracranial hypertension) (G93.2) 2. Chronic migraine without aura without status migrainosus, not intractable (G43.709) 3. Encounter for medication monitoring (Z51.81) - Persistent headache over the last 3.5 weeks in the setting of reducing diamox dosing. - Currently on acetazolamide 750 mg BID; recent increase from 1250 mg/day to 1500 mg/day over the past 3-4 days. - Discussed options for bridge therapy such as depakote taper, toradol bridge, greater occipital nerve block(s) or 3 days of IV infusion therapy. She is not interested in the depakote taper. - At this time she is requesting a repeat LP for immediate relief . [facility] - She was agreeable to a 5-day course of oral Toradol to start over the weekend, 3 times daily, to be taken in conjunction with the current prednisone taper. - Ordered repeat BMP and CBC to be drawn after one week on the current acetazolamide dose to monitor for any metabolic changes. - Follow up 09/26/[address] Cabrera Recording using Lulu software for draft documentation of the visit was discussed with the patient/authorized membership sales representative; all questions welcomed and answered. Patient/authorized membership sales representative agreed to proceed HEADACHE MANAGEMENT: (You are the primary guardian of your health and headache. Keep track of all medications: This includes the reason for use, side effects and benefits.) MEDICATION TREATMENT: Medications to Start Taking keTORolac (TORADOL) 10 mg tablet Take 1 tablet by mouth three times a day with meals for 5 days. Take with food. Do not take any OTC pain relievers while taking. Follow-up: 09/26/[address] Cabrera I spent a total of 40 minutes on the date of the service which included preparing to see the patient, [id number] patient care, completing clinical documentation, obtaining and/or reviewing separately obtained history, performing a medically appropriate examination, counseling and educating the pat ient/family/caregiver, ordering medications, tests, or procedures, and communicating with other HCPs (not separately reported). Faith Weir PA-C Headache Section [facility] September 23, 2024 documented in this encounterMer[facility]25 NoteHNO ID: [id number] Author: FAITH WEIR PA-C Service: ? Author Type: Physician Tobacco Warehouse Agent Type: Progress Notes Filed: 09/23/2024 13:27 Note Text: Headache Center - Follow up Virtual Visit This visit was conducted as a virtual visit, with patient's permission, via Zoom. Patient location - [place] was identified by name and and consented to the video evaluation and its limitations. Based on this evaluation it may be necessary for them to schedule a follow up evaluation with me or other neurologists for formal physical examination and if necessary,other studies. I have communicated my name and active licensure. The patient's identity and physical location were verified at the time of this visit. Either the patient or their legal membership sales representative has been informed of the risks and benefits of -- and alternatives to -- treatment through a remote evaluation and consents to proceed with the evaluation remotely. Accompanied by: Self Primary Problem List: There is no problem list on file for this patient. Chief Complaint: Headaches Impression and Plan from last visit: 08/24/[address] Cabrera Impression: As well as multiple other complaints: Disturbance of skin sensation over the lateral aspect of the thigh both on the right and on the left, Tingling - Numbness/tingling in the hands, ongoing for 12 months She had IIH diagnosed in 2021 with a vision loss in right eye in 2021, then LP with OP of 34, started diamox and ozempic with 50# wieght loss and then stopped them at the end of 2022. Another LP 08/2023 - with OP 31 and papilledema so put back on diamox. She developed nephrolithiasis in the setting of diamox for which urology consulted and has f/u with nephrology for small 2-3mm stones. She tells me she was closer to #198 9 months ago and now down to #150 with diet changes. Her vision has been stable on diamox 750/500, with last eye exam 06/[address] Sherwood with no active disc edema only chronic disc elevation, with stable OCT and slight nonspecific blind spot defects b/l on VF. Her updated bMRI and MRV 06/2024 were also stable without stenosis and mild signs seen with IIH (ON tortuosity and partially empty sella). And reports improved headaches the last few months as well, notably she attributes this to her dietary changes and diamox. She reports a strong dislike for diamox but also anxious about coming off it and such we will work to replace it with zonisamide. Plan: Diagnosis: Idiopathic Intracranial Hypertension with prior papilledema Cervicalgia Chronic Migraine Multiple other complaints: Disturbance of skin sensation over the lateral aspect of the thigh both on the right and on the left Tingling Numbness/tingling in the hands, ongoing for 12 months Workup: Neuro-ophthalmogy follow up 11/2024 Nephrology follow up 09/16/2024 Preventive: Reduce diamox 500mg BID - informed if she starts to have any vision changes or worsening vision symptoms please let me know and we will get you in to see ophthmology sooner Discussed:The importance of a low-salt diet and weight loss through healthy diet and exercise, as weight loss is disease modifying, and goal loss of 15% as this significantly reduces papilledema and Headaches (she has lost over 15% at this point from 198 to 155, 15% would be 30#) Start Zonisamide titration to 100 mg qhs, then will work to wean off diamox by 250 mg every 3 days. Next steps: Replace diamox with methazolamide, furosemide - topiramate or zonisamide Follow-Up: 4-6 months Interval Headache History: Karolina Nicole is a 39 year old year old female, with a history of IIH, chronic migraine, cervicalgia, and fibromyalgia following up today virtually for headaches. She recently failed parafon forte bridge. Dr. Cabrera sent in prednisone taper on 09/20/24 and increased her diamox to 750mg BID on 09/21/24. She was seen in the [facility] ED last night into this morning - given IV medications and had CTV. Dr. Sherwood has recommended 1000mg BID of diamox if needed after checking BMP. She has been experiencing a persistent headache for the past three and a half weeks, accompanied by intermittent blurry vision. She has been in contact with her neuro-airborne mission systems superintendent, Dr. Sherwood, who advised her to visit the emergency room due to the duration of her symptoms. In the emergency room, a CT scan was performed, and she received IV Toradol and Benadryl, which provided relief until this morning. She attributes the onset of her current headache to a reduction in her acetazolamide (Diamox) dosage. Previously, she was taking 1250 mg daily (500 mg in the morning and 750 mg in the evening). She reduced the dosage by 250 mg while starting zonisamide, but after eight to nine days, her headache began and has persisted since. She believes the reduction in acetazolamide triggered her symptoms and expresses regret for decreasing the dosage. She (more content not included)...[facility]05-15[facility]25 NoteHNO ID: [id number] Author: STELLA MEIER RT(R) Service: Radiology Author Type: [employer] Type: Progress Notes Filed: 09/22/2024 22:01 Note Text: Radiology Service Progress Note DATE OF SERVICE: September 22, 2024 TIME: 10:01 PM PATIENT IDENTITY VERIFICATION COMPLETED USING TWO (2) STANDARD IDENTIFIERS: Name and Date of confirmed by patient verbally and Name and Date of confirmed by identification band. FALL SCREENING: Has the patient had 2 falls in the last year or 1 fall with injury or currently using an Ambulatory Assistive Device (Walker, Cane, Wheelchair, Crutches, etc.)? Emergency Room Patient: Screened in ED PATIENT GENDER DATA: Assigned female at . status: : No status: NO. PATIENT RELEVANT IMPLANT DATA REVIEWED: Yes PATIENT PRESENTS WITH AN IMPLANTABLE OR ATTACHED REFINER OPERATOR: No ALLERGIES: Reviewed and unchanged CONTRAST ALLERGY: NO. EXAM: CT -CONTRAST INDUCED NEPHROPATHY RISK FACTORS: Not applicable CREATININE: Creatinine Date Value Ref Range Status 09/22/2024 0.75 0.58 - 0.96 mg/dL Final 02/24/2024 1.08 (H) 0.58 - 0.96 mg/dL Final 09/29/2023 0.91 0.58 - 0.96 mg/dL Final Estimated Glomerular Filtration Rate Date Value Ref Range Status 09/22/2024 104 >=60 mL/min/1.73m? Final Comment: Estimated Glomerular Filtration Rate (eGFR) is calculated using the 2020 CKD-EPI creatinine equation. This equation utilizes serum creatinine, sex, and age as parameters. The creatinine assay has traceable calibration to isotope dilution-mass spectrometry. Refer to KDIGO guidelines for clinical interpretation. In patients with unstable renal function, e.g. those with acute kidney injury, the eGFR may not accurately reflect actual GFR. P.O.C.T. RESULTS: POC done: Yes, See Lab Tab September 22, 2024 TREATMENT: N/A PERIPHERAL IV DATA: Inpatient - refer to LDA documentation RADIOLOGY DEPARTMENT: CT; Exam(s) Completed: Brain and CTV Brain SIGNATURE: RT Caren(R) PATIENT NAME: Karolina Nicole DATE: September 22, 2024 TIME: 10:01 [facility]05-14-2025 Telephone encounter Note* Telephone Encounter - Promise Dejesus - 09/21/2024 3:17 PM EDT Patient wants to know if the swelling is back and if she will need a spinal tap and if she does need to see you prior to her 12/05/24 appointment how soon? Patient does not have insurance right now and will need to get financial clearance. She has already spoken to the financial accounting manager and they are to call her back with a few options. I will try to resend the [employer] images for your review. I can't print those out unfortunately. [facility]05-14-2025 Miscellaneous Notes* Telephone Encounter - Promise Dejesus - 09/21/2024 3:17 PM EDT Patient wants to know if the swelling is back and if she will need a spinal tap and if she does need to see you prior to her 12/05/24 appointment how soon? Patient does not have insurance right now and will need to get financial clearance. She has already spoken to the financial accounting manager and they are to call her back with a few options. I will try to resend the [employer] images for your review. I can't print those out unfortunately. documented in [facility] Telephone encounter Note * Telephone Encounter - Promise Dejesus - 09/21/2024 11:48 AM EDT Spoke with patient and she will be sending over the colored images shortly. Will let you know once scanned into Epic. [facility]05-14-2025 Miscellaneous Notes* Telephone Encounter - Promise Dejesus - 09/21/2024 11:48 AM EDT Spoke with patient and she will be sending over the colored images shortly. Will let you know once scanned into Epic. documented in [facility] Telephone encounter Note * Telephone Encounter - Oly Lynn RN - 09/19/2024 5:03 PM EDT Reason: Headache x 2 weeks. History of Idiopathetic Intracranial Hypertension. Patient states unable to see neurologist due to insurance issue. Current treatment regimen not giving her any relief. Outcome: ED now recommendation. Care advice given. Patient states she will be seen at [facility] ED.Blurry vision. Reason for Disposition [1] SEVERE headache (e.g., excruciating) AND [2] worst headache of life Protocols used: [id number]-[id number]-FV [facility]05-12-2025 Miscellaneous Notes* Telephone Encounter - Oly Lynn RN - 09/19/2024 5:03 PM EDT Reason: Headache x 2 weeks. History of Idiopathetic Intracranial Hypertension. Patient states unable to see neurologist due to insurance issue. Current treatment regimen not giving her any relief. Outcome: ED now recommendation. Care advice given. Patient states she will be seen at [facility] ED.Blurry vision. Reason for Disposition [1] SEVERE headache (e.g., excruciating) AND [2] worst headache of life Protocols used: [id number] documented in this encounterMer[facility] Note* Addendum Note - Andrea Suazo DO - 09/13/2024 7:55 AM EDTAddended by: ANDREA SUAZO on: 09/13/2024 07:55 AM Modules accepted: Orders [facility]05-06-2025 Miscellaneous Notes* Addendum Note - Andrea Suazo DO - 09/13/2024 7:55 AM EDTAddended by: ANDREA SUAZO on: 09/13/2024 07:55 AM Modules accepted: Orders documented in this encounterMer[facility] Instructions* Patient Instructions* Zenaida Cabrera, - 08/24/2024 10:06 AM EDT Karolina Nicole, It was nice to see you again today, thank you for visiting the headache clinic. Below is a review of the plan from our discussions today Your diagnosis today: Idiopathic Intracranial Hypertension with prior papilledema Cervicalgia Chronic Migraine Multiple other complaints: Disturbance of skin sensation over the lateral aspect of the thigh both on the right and on the left Tingling Numbness/tingling in the hands, ongoing for 12 months Recommended Headache Treatment Plan Start Zonisamide: Start at 25 mg at night for 7 days, then 50 mg for 7 days, then 75 mg for 7 days,then continue 100 mg at night on going. Once you are at 100 mg dose for 1-2 days then wean off diamox, reducing 250 mg every 3 days (so after 1 day on zonisamide 100 mg then start taking diamox 250 mg in the morning and 500 mg at night, 3 days later reduce to 250 mg in the morning and 250 mg at night, 3 days later take only 250 mg at night and then stop. Reduce diamox to 500 mg 2x daily for now, after 1 month we will start to wean it off to replace it with the zonisamide. if you start to have any vision changes or worsening vision symptoms please letme know and we will get you in to see ophthmology sooner Diet/weight loss: You have done a GREAT job with the diet changes and weight loss!! This is probably why you have hadsuch improvement in symptoms, as weight loss is disease modifying, and goal loss of 15% as this significantly reduces papilledema and Headaches (at this point you have lost over 15% from #198 to 155). Keep a balanced diet, focus on hydration (2-3 L/day), lower sodium, avoiding processed foods as able, limit animal protein (you do not need to eliminate it, but focus on balance). A diet rich in fruits and vegetables, moderate in lean protein, and low in processed foods and added sugars will support gradual weight loss. Information on Zonisamide: It works by stabilizing nerve activity in the brain.Start at 25 mg at night for 7 days, then 50 mg for 7 days, then 75 mg for 7 days, then continue 100 mg at night, giving this 100 mg dose ~3 months before assessing the effectiveness on headaches, with hope to reduce headache frequency/severity by 50%. Possible side effects include fatigue, dizziness, nausea, loss of appetite, and weight loss. Itmay also cause mood changes, trouble concentrating, or kidney stones in some cases. Recommended Imaging/workup: Neuro-ophthalmogy follow up 11/2024 Nephrology follow up 09/16/2024 Follow up : 4-6 months documented in this encounterMer[facility] History of Present illness Narrative* Zenaida Cabrera DO - 08/24/2024 8:30 AM EDT Images from the original note were not included. VIRTUAL VISIT This is a virtual visit using HIPAA compliant video platform. All issues as below were discussed and addressed but no physical exam was performed unless allowed by visual confirmation. If it was feltthat the patient should be evaluated in clinic then they were directed there. Patient and/or parent(s) verbally consented to visit. I have communicated my name and active licensure. The patient's identity and physical location wereverified at the time of this visit. Either the patient or their legal membership sales representative has been informed of the risks and benefits of -- and alternatives to -- treatment through a remote evaluation andconsents to proceed with the evaluation remotely. Headache and Facial Pain [facility] [place] [facility]: Headache follow-up Follow-up Visit Last visit: 2 months ago with me, [address] Goldberg From my last OV: Karolina Nicole is a 38 year old year old female, here for follow up regarding IIH and worsening headaches and is a new patient to me, last seen in 03/2024 when she was doing well with Diamox 500/250 and last eye exam 12/2023 with stable RNFL and mild optic disc edema vs drusen. Today she reports worsening headaches the last 5-6 weeks with visual changes and pulsatile tinnitusthat started gradually in April without clear trigger, [...] urgent dilated eye exam with VFF testing, continuediamox 1g daily and repeat imaging with MRI and MRV. Diagnosis: Idiopathic Intracranial Hypertension Cervicalgia Workup: Pt [...] and help with on going neck pain 07/22/[address] Ashlyn Carter+Janny Pt is 38 year old female with IIH but who has achieved normalization of previously noted papilledema on her current regimen. She also reports good control of headaches at this visit as well (after parafon forte) Ultimately, she has no papilledema on her current Diamox dose of 500 mg qam and 750 mg po qhs, and KHAN's are reported controlled, so I think risks of changing meds right now outweigh any benefit. I discussed that given that we did not know whether her clumsiness and dropping things was due to nerve impingement as suggested on her outside EMG vs side effects of Diamox--I did not want to changeher Diamox dose at this time until further information was obtained via general neurology consultation. If further assessment seems to point more to Diamox as the culprit for her symptoms rather than a nerve impingement, then we may need to cautiously reduce her Diamox at that time coupled with serial ophthalmology exams to ensure there is no return of papilledema. I personally reviewed the images from her MRV on 07/03/24, and I do not appreciate any significant narrowing in the transverse sinuses. Agree with neuroradiology report that any such transverse sinus narrowing is an equivocal finding in this case. Past Medical History: PAST MEDICAL HISTORY Diagnosis Date Fibromyalgia IIH (idiopathic intracranial hypertension) Osteoarthritis of multiple joints Palindromic rheumatism Updates since last visit: 06/03/2024 optho visit -: Dilated Eye exam completed --> No evidence of disc edema b/l and RNFL appears stable 06/14/2024 Dr. Sherwood optho visit -->The patient's initial neuro-ophthalmic exam on 06/14/2024 showedoverall good afferent visual pathway function with the exception of trace bilateral blind spot enlargement on marie visual field -- which was consistent with her report of IT visual field deficits. There was no active optic disc edema with only chronic appearing disc elevation. There was specific ally no optic disc drusen, which was corroborated by bscan. This is of course of on therapeutic diamox dosing. . 06/2024 MRV+ bMRI--> no evidence of venous thrombosis. bMRI with partially empty sella, mild ON tortuosity w/o CSF exension + partially empty sella 2024 Mychart msg --> recommendations for patient desire to d/c diamox. 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 The sensory EMG study showed right sided carpal tunnel entrapment and ulnar neuropathy in both arms - both of which can contribute to dropping items, difficulty turning keys/doorknobs, numbness in the hands/fingers that radiate up the arm,and usually is very bothersome at night. Conservative recs for CTS provided 06/2024 MRI C+L - normal 08/02/24 My chart msg-->wants to come off diamox. Plan for repeat EMG with gen neuro 08/04/2024- [facility] Neuro visit -> multiple complaints including imbalance, dropping everything, sharppains, numbness, tingling, cramping. Also endorses numbness in the thigh region. Considering ddx meralgia paresthetica and for UE CTS. Neuropathy workup with labs, referred to spine health and referred for EMG UE and LE (L>R). Blood work unrevealing (B12- 718, Autoimmune workup negative, Protienpanel neg, A1c 4.4) - EMG pending 08/15/2024 - missed appt Interval History: She does feel better now with the eating habits and working on obsesses over her symptoms. Still on the Diamox --> 500/750 (1250mg). Does think it helps her headaches but does not like some of the side effects. She states really hates the diamox - but it does helps her headaches and shedoes not want to change her dose. She has felt better since eating hospital cleaner, and losing weight (was 198 (October 2023) now down to 152, goal of 140), apparently per my recommendations 06/2024 (which was really focused on kidney stone prevention and clarified this was specifically for kidney stone formation prevention (specifically clarified non- diary animal protein). She has this new book for a guide for IIH -and reading that food is the #1 factor to her headaches and care. She is currently having 3 days a week , previously was daily. Has migraine features. She denies diplopia (occasional shadows, blurry vision occasionally), visual obscurations, positional aspect to headache, worsening/triggered headache with valsavla/coughing. She does have pulsatile tinnitus (in the last 2 weeks) only at night when laying down. Her EMG was canceled.- she is ok with that She feels prayer has really helped her not be so consumed by her condition disease. She is going back to [employer] for her work instead of working nights. HEADACHE SCORES: 07/22/2024 08/08/2024 08/22/2024 Headache Questions ER visits since last office visit: 2 Hospital stays since last office visit 0 Days headache pain free in the last month: 15 Initial improvement of headache after botox injection at last visit: Not applicable, I did not havea botox injection at my last visit Not applicable, I did not have a botox injection at my last visit Not applicable, I did not have a botox injection at my last visit PRN medication usage in the last month: 15 Patient impression of improvement since last visit: Minimally improved Much improved Minimally worse 05/30/2024 07/22/2024 08/22/2024 HIT-6 HIT-6 68 (Severe impact) 67 (Severe impact) Incomplete 05/30/2024 07/22/2024 08/22/2024 CONCHA - 2/7 SCORES CONCHA-2 Score 3 3 2 CONCHA-7 Score 13 10 05/30/2024 07/22/2024 08/22/2024 Migraine Specific QOL - Higher scores indicate better HRQL Role Function-Restrictive Transformed Score (range: 0-100) 22.86 60 60 Role Function-Preventive Transformed Score (range: 0-100) 65 60 60 Emotional Function Transformed Score (range: 0-100) 40 53.33 60 04/05/2024 05/30/2024 07/22/2024 PHQ-9 Score 6 9 8 Physical Exam: General: well appearing, in no acute distress, alert. Pain Behaviors: no pain behaviors observed. Skin: No visible rashes or lesions. HEENT: Normocephalic/atraumatic. Musculoskeletal: No gross joint deformities Neurological: Mental Status: Alert and oriented to person, place and time. Affect is normal. Speech is spontaneous and fluent without dysarthria. Cranial Nerves: No nystagmus appreciated. Face is symmetric without evidence of weakness. Hearing intact. Head turn and shoulder shrug intact bilaterally. Motor Exam: Normal muscle bulk by visual examination. Upper extremities antigravity. Cerebellar: No ataxia or tremor appreciated. Impression: Karolina Nicole is a 39 year old year old female, here for follow up H/o IIH with papilledema Chronic migraine Cervicalgia As well as multiple other complaints: Disturbance of skin sensation over the lateral aspect of the thigh both on the right and on the left, Tingling - Numbness/tingling in the hands, ongoing for 12 months She had IIH diagnosed in 2021 with a vision loss in right eye in 2021, then LP with OP of 34, started diamox and ozempic with 50# wieght loss and then stopped them at the end of 2022. Another LP 08/2023 - with OP 31 and papilledema so put back on diamox. She developed nephrolithiasis in the setting of diamox for which urology consulted and has f/u with nephrology for small 2-3mm stones. She tells me she was closer to #198 9 months ago and now down to #150 with diet changes. Her vision has been stable on diamox 750/500, with last eye exam 06/[address] Sherwood with no active disc edema only chronic disc elevation, with stable OCT and slight nonspecific blind spot defectsb/l on VF. Her updated bMRI and MRV 06/2024 were also stable without stenosis and mild signs seen with IIH (ON tortuosity and partially empty sella). And reports improved headaches the last few monthsas well, notably she attributes this to her dietary changes and diamox. She reports a strong dislike for diamox but also anxious about coming off it and such we will work to replace it with zonisamide. Plan: Diagnosis: Idiopathic Intracranial Hypertension with prior papilledema Cervicalgia Chronic Migraine Multiple other complaints: Disturbance of skin sensation over the lateral aspect of the thigh both on the right and on the left Tingling Numbness/tingling in the hands, ongoing for 12 months Workup: Neuro-ophthalmogy follow up 11/2024 Nephrology follow up 09/16/2024 Preventive: Reduce diamox 500mg BID - informed if she starts to have any vision changes or worsening vision symptoms please let me know and we will get you in to see ophthmology sooner Discussed:The importance of a low-salt diet and weight loss through healthy diet and exercise, as weight loss is disease modifying, and goal loss of 15% as this significantly reduces papilledema and Headaches (she has lost over 15% at this point from 198 to 155, 15% would be 30#) Start Zonisamide titration to 100 mg qhs, then will work to wean off diamox by 250 mg every 3 days. Next steps: Replace diamox with methazolamide, furosemide - topiramate or zonisamide Follow-Up: 4-6 months Prior Therapies Duration of Use Dose Side effect Muscle Relaxer Tizanidine (Zanaflex) Sleep Aids diamox Discussed with Dr. Ananya Cabrera DO, MBA Headache Medicine Fellow, PGY5 Adult Neurologist/ Board Certified Headache & Facial Pain Section, [facility] [place] Ratna Hare MD Staff documented in this encounterMercy Health St. [facility]04-16-2025 NoteHNO ID: [id number] Author: RATNA HARE MD Service: ? Author Type: Fellow Type: Progress Notes Filed: 08/24/2024 12:37 Note Text: VIRTUAL VISIT This is a [...] visit. Either the patient or their legal membership sales representative has been informed of the risks and benefits of -- and alternatives to -- treatment through a remote evaluation and consents to proceed with the evaluation remotely. Headache and Facial Pain [facility] [place] [facility]: Headache follow-up Follow-up Visit Last visit: 2 months ago with me, [address] Goldberg From my last OV: Karolina Nicole is a 38 year old year old female, here for follow up regarding IIH and [...] and repeat imaging with MRI and MRV. Diagnosis: Idiopathic Intracranial Hypertension Cervicalgia Workup: Pt [...] and help with on going neck pain 07/22/[address] Goldberg A+P Pt is 38 year old female with IIH but who has achieved normalization of previously noted papilledema on her current regimen. She also reports good control of headaches at this visit as well (after parafon forte) Ultimately, she has no papilledema on her current Diamox dose of 500 mg qam and 750 mg po qhs, and KHAN's are reported controlled, so I think risks of changing meds right now outweigh any benefit. I discussed that given that we did not know whether her clumsiness and dropping things was due to nerve impingement as suggested on her outside EMG vs side effects of Diamox--I did not want to change her Diamox dose at this time until further information was obtained via general neurology consultation. If further assessment seems to point more to Diamox as the culprit for her symptoms rather than a nerve impingement, then we may need to cautiously reduce her Diamox at that time coupled with serial ophthalmology exams to ensure there is no return of papilledema. I personally reviewed the images from her MRV on 07/03/24, and I do not appreciate any significant narrowing in the transverse sinuses. Agree with neuroradiology report that any such transverse sinus narrowing is an equivocal finding in this case. Past Medical History: PAST MEDICAL HISTORY Diagnosis Date Fibromyalgia IIH (idiopathic intracranial hypertension) Osteoarthritis of multiple joints Palindromic rheumatism Updates since last visit: 06/03/2024 optho visit -: Dilated Eye exam completed --> No evidence of disc edema b/l and RNFL appears stable 06/14/2024 Dr. Sherwood optho visit -->The patient's initial neuro-ophthalmic exam on 06/14/2024 showed overall good afferent visual pathway function with the exception of trace bilateral blind spot enlargement on marie visual field -- which was consistent with her report of IT visual field deficits. There was no active optic disc edema with only chronic appearing disc elevation. There was specifically no optic disc drusen, which was corroborated by bscan. This is of course of on therapeutic diamox dosing. . 06/2024 MRV+ bMRI--> no evidence of venous thrombosis. bMRI with partially empty sella, mild ON tortuosity w/o CSF exension + partially empty sella 2024 Mychart msg --> recommendations for patient desire to d/c diamox. Pt reports legs/hands neuroapthy sensation, LLE pain, droppin (more content not included)...[facility]03[facility] Note* Addendum Note - Lisandro Gonsalez MD - 08/05/2024 8:52 AM EDTAddended by: LISANDRO GONSALEZ on: 08/05/2024 08:52 AM Modules accepted: Orders [facility]03-28-2025 Miscellaneous Notes* Addendum Note - Lisandro Gonsalez MD - 08/05/2024 8:52 AM EDTAddended by: LISANDRO GONSALEZ on: 08/05/2024 08:52 AM Modules accepted: Orders documented in [facility] encounter[facility] History of Present illness Narrative* Lisandro Gonsalez MD - 08/04/2024 2:00 PM EDT Reason for Evaluation: Consultation requested by Cassandra Tinsley for an opinion regarding New consult Paresthesia of bilateral legs Anterior thigh numbness My final recommendations will be communicated back to the requesting physician by way of shared medical record or letter to requesting physician via [place] mail. This is Ms. Karolina Nicole, a 39 year old female who presents to the [facility] Neurology clinic multiple complaints including imbalance, dropping everything, sharp pains, numbness, tingling,cramping. Also endorses numbness in the thigh region. Impression Multiple complaints Disturbance of skin sensation over the lateral aspect of the thigh both on the right and on the left Tingling Numbness/tingling in the hands, ongoing for 12 months Multiple diagnoses to consider. With regard to numbness over the lateral aspect of both thighs, I wonder about meralgia paresthetica. Tingling in multiple locations. Does not seem to have significantneuropathy risk factors by history. Finally, numbness/tingling in the hands. I definitely wonder about the possibility of carpal tunnel syndrome. I am definitely concerned about the quality of outside EMG. This seems to be signed by a nurse practitioner? Plan - Laboratory studies. A1c, B12, SPEP with ERROL, RADHA, anti-CISCO, kappa/lambda free light chain - Referral to Dr. Mantilla ([facility]) for consideration of nerve block for meralgia paresthetica. - EMG, median/CTS protocol, either side - EMG, general lower extremity, left greater than right; have asked the team to include lateral femoral cutaneous sensory nerve conduction study response bilaterally - I will follow-up with the patient after the above Lisandro Gonsalez MD Staff, [facility] [place] HPI: This is Ms. Karolina Nicole, a 39 year old female who presents to the [facility] Neurology clinic multiple complaints including imbalance, dropping everything, sharp pains, numbness, tingling,cramping. Also endorses numbness in the thigh region. Review: New consult Paresthesia of bilateral legs Anterior thigh numbness MRI lumbar spine without contrast MRI cervical spine without contrast 07/03/2024 1. Essentially normal examination of the cervical spine. 2. Mild degenerative change at L5-S1. MRV brain with/without contrast 07/03/2024 No evidence for venous sinus thrombosis. Equivocal narrowing of the distal transverse sinuses as could be seen with transverse sinus stenosis. MRI brain without contrast 07/03/2024 Normal MRI of the brain Partially empty sella is suggested CC: Imbalance Dropping everything Sharp pains Numbness Tingling Cramping Endorses tingling in the legs among other locations Endorses numbness in thigh region Today: With standing, legs become heavy L > R Electrical, like a long shock Burning Numb A few years Getting worse More frequent MRI unrevealing No sciatica per the patient Endorses tingling in multiple locations Acetazolamide related? 190s > 150s Also endorses tingling in the feet No history of diabetes. + history of cancer, but no exposure to chemotherapy. No restrictive diet until past 6 weeks. No history of HIV. No history of significant alcohol intake currently History of 18 years of heavier alcohol intake Sober for 7 years No family history of neuropathy that we know of? Mother? No history of dry eye. + history of dry mouth. No history of heavy metal exposure. No history of stomach surgery. >> Also endorses numbness/tingling in the hands Both hands Dropping things Ongoing for about 12 months Now daily, getting worse Past history per chart review includes: Past medical history, problem list: Fibromyalgia, IIH, Palindromic rheumatism Past surgical history: Cholecystectomy, hysterectomy Family history: Cancer (mother) Social history: Smokes cigarettes No current alcohol OBJECTIVE: PHYSICAL EXAM: Neurological: Mental Status: Alert. Speech fluent. Cranial Nerves: CNII: Visual lugo intact? Seems to struggle a bit with inferior nasal field OU? CNIII, IV, : Pupils are reactive to light. Eyes cross midline. Vertical gaze intact. CN V: Facial sensation intact bilaterally to touch. CN VII: Smile is symmetric. CN VIII: Hearing intact to finger rub bilaterally. CN IX: No hypophonia. CN XI: Full strength shoulder shrug bilaterally. CN XII: Tongue protrusion full, midline. Motor: Bulk is normal in the upper and lower extremities. Tone is normal in the upper and lower extremities. Individual muscle group testing: Right Left Shoulder abduction 5 5 Elbow flexion 5 5 Elbow extension 5? difficult 5 Wrist extension Near 5? pain 5 Wrist flexion Finger extension Near 5? 5 Distal finger flexion Near 5? difficult Thumb abduction Hip flexion 5 Approx 5? Gives way? Knee extension 5 Near 5? variable Knee flexion 5 5 Dorsiflexion 5 5 Ankle inversion Ankle eversion Plantarflexion See below See below Toe walks. Reflexes: R L Biceps reflex on L - pain, further UE reflexes deferred Patellar 2 2 Ankle 1-2 1-2 Toes down on L, mute to trace down on R Sensation: Intact to sharp in the distal upper and lower extremities. Numbness on the side of both thighs Rhomberg negative. Coordination: Intact [id number]-finger bilaterally. Intact [id number]-[id number] bilaterally. Gait: Stands with arms crossed. Ambulates easily in the clinic zhang. Normal, narrow-based gait. Normal range arm swing. Turns easily. Toe walks. Phalen: Negative, but numbness present at start of test This note was partially created using voice recognition software and is inherently subject to errors including those of syntax and sound-alike substitutions which may escape proofreading. In such instances, original meaning may be extrapolated by contextual derivation. I spent a total of 66 minutes on the date of the service which included time spent preparing to seethe patient, talking to the patient/documenting in the chart, examining the patient. documented in this encounterMer[facility]25 NoteHNO ID: [id number] Author: LISANDRO GONSALEZ MD Service: ? Author Type: Physician Type: Progress Notes Filed: 08/05/2024 08:52 Note Text: Reason for Evaluation: Consultation requested by Cassandra Tinsley for an opinion regarding New consult Paresthesia of bilateral legs Anterior thigh numbness My final recommendations will be communicated back to the requesting physician by way of shared medical record or letter to requesting physician via [place] mail. This is Ms. Karolina Nicole, a 39 year old female who presents to the [facility] clinic multiple complaints including imbalance, dropping everything, sharp pains, numbness, tingling, cramping. Also endorses numbness in the thigh region. Impression Multiple complaints Disturbance of skin sensation over the lateral aspect of the thigh both on the right and on the left Tingling Numbness/tingling in the hands, ongoing for 12 months Multiple diagnoses to consider. With regard to numbness over the lateral aspect of both thighs, I wonder about meralgia paresthetica. Tingling in multiple locations. Does not seem to have significant neuropathy risk factors by history. Finally, numbness/tingling in the hands. I definitely wonder about the possibility of carpal tunnel syndrome. I am definitely concerned about the quality of outside EMG. This seems to be signed by a nurse practitioner? Plan - Laboratory studies. A1c, B12, SPEP with ERROL, RADHA, anti-CISCO, kappa/lambda free light chain - Referral to Dr. Mantilla ([facility]) for consideration of nerve block for meralgia paresthetica. - EMG, median/CTS protocol, either side - EMG, general lower extremity, left greater than right; have asked the team to include lateral femoral cutaneous sensory nerve conduction study response bilaterally - I will follow-up with the patient after the above Lisandro Gonsalez MD Staff, [facility] [place] HPI: This is Ms. Karolina Nicole, a 39 year old female who presents to the [facility] clinic multiple complaints including imbalance, dropping everything, sharp pains, numbness, tingling, cramping. Also endorses numbness in the thigh region. Review: New consult Paresthesia of bilateral legs Anterior thigh numbness MRI lumbar spine without contrast MRI cervical spine without contrast 07/03/2024 1. Essentially normal examination of the cervical spine. 2. Mild degenerative change at L5-S1. MRV brain with/without contrast 07/03/2024 No evidence for venous sinus thrombosis. Equivocal narrowing of the distal transverse sinuses as could be seen with transverse sinus stenosis. MRI brain without contrast 07/03/2024 Normal MRI of the brain Partially empty sella is suggested CC: Imbalance Dropping everything Sharp pains Numbness Tingling Cramping Endorses tingling in the legs among other locations Endorses numbness in thigh region Today: With standing, legs become heavy L > R Electrical, like a long shock Burning Numb A few years Getting worse More frequent MRI unrevealing No sciatica per the patient Endorses tingling in multiple locations Acetazolamide related? 190s > 150s Also endorses tingling in the feet No history of diabetes. + history of cancer, but no exposure to chemotherapy. No restrictive diet until past 6 weeks. No history of HIV. No history of significant alcohol intake currently History of 18 years of heavier alcohol intake Sober for 7 years No family history of neuropathy that we know of? Mother? No history of dry eye. + history of dry mouth. No history of heavy metal exposure. No history of stomach surgery. >> Also endorses numbness/tingling in the hands Both hands Dropping things Ongoing for about 12 months Now daily, getting worse Past history per chart review includes: Past medical history, problem list: Fibromyalgia, IIH, Palindromic rheumatism Past surgical history: Cholecystectomy, hysterectomy Family history: Cancer (mother) Social history: Smokes cigarettes No current alcohol OBJECTIVE: PHYSICAL EXAM: Neurological: Mental Status: Alert. Speech fluent. Cranial Nerves: CNII: Visual lugo intact? Seems to struggle a bit with inferior nasal field OU? CNIII, IV, : Pupils are reactive to light. Eyes cross midline. Vertical gaze intact. CN V: Facial sensation intact bilaterally to touch. CN VII: Smile is symmetric. CN VIII: Hearing intact to finger rub bilaterally. CN IX: No hypophonia. CN XI: Full strength shoulder shrug bilaterally. CN XII: Tongue protrusion full, midline. Motor: Bulk is normal in the upper and lower extremities. Tone is normal in the upper and lower extremities. Individual muscle group testing: Right Left Shoulder abduction 5 5 Elbow flexion 5 5 Elbow extension 5? difficult 5 Wrist extension Near 5? pain 5 (more content not included)...[facility]03[facility] NoteHNO ID: [id number] Author: RAFY GOLDBERG MD Service: ? Author Type: Physician Type: Progress Notes Filed: 07/22/2024 20:17 Note Text: HEADACHE MEDICINE ESTABLISHED VISIT July 22, 2024 5:00 PM VIDEO VISIT I have communicated my name and active licensure. The patient's identity and physical location were verified at the time of this visit. Either the patient or their legal membership sales representative has been informed of the risks and benefits of -- and alternatives to -- treatment through a remote evaluation and consents to proceed with the evaluation remotely. Answers submitted by the patient for this visit: Headache Questionnaire (Submitted on 07/22/2024) How many days have you been completely free of headache pain in the last month? : 15 INTERIM HISTORY: Pt returns for follow-up for IIH AND chronic migraine. She saw Dr. Sherwood on 06/14/24 and was noted to have no papilledema, which is great news. Previous to Dr. Sherwood's appt, the pt had a dilated eye exam with RNFLwith Dr. Pablo Phipps from 06/03: Dilated Eye exam completed --> No evidence of disc edema b/l and RNFL appears stable. Pt remains on Diamox 500 mg po qam and 750 mg po qhs. She continues to have kidney stones. We discussed that the risk to eyesight from untreated IIH likely outweighs risk of kidney stones at this time. However, she reports that she is having a high burden of illness with the Diamox--cognitive fuzziness and peripheral tingling. She also reports imbalance and dropping stuff frequently. She had an EMG that was done by her chiropractor, and sought to discuss this with me. I informed her that I did not have the expertise to interpret EMG's. I am also suspect that this was done via chiropractic office, so have no way of knowing if their quality assurance representative is up to accepted standards. I referred her to general neurology for an input here as the provided written interpretation of the results suggested either cubital tunnel or carpal tunnel impingement. I explained that I treat neither, so could not comment on veracity of the report. Either impingement may explain her dropping things or increase in clumsiness. She reports that the Bambi Prasad burst did break her cycle of headaches. She reports that she has not had significant KHAN's since the Parafon Forte. She reports that she has lost 40 lbs in the last year. Started at 198# in August 2023, and now weigh 159#. Pt reports that she has joined an IIH support group, and has decided that she does not believe the link to obesity. Discussed that obesity does not explain every single case of IIH as it does occur in non-obese individuals, but also did inform her that obesity was a known risk factor for the condition. She asked if IIH was considered a complication of obesity and if having it would allow her to get Ozempic. I informed her that we do not prescribe Ozempic, so she would need to see either her PCP or a metabolics specialist to be considered for this. PAST MEDICAL HISTORY Diagnosis Date Fibromyalgia IIH (idiopathic intracranial hypertension) Osteoarthritis of multiple joints Palindromic rheumatism Current Outpatient Medications Medication Sig acetaZOLAMIDE (DIAMOX) 250 mg tablet Take 2 tablets by mouth every morning AND 3 tablets daily at bedtime. hydrOXYzine pamoate (VISTARIL) 50 mg capsule Take 50 mg by mouth daily at bedtime. diclofenac (VOLTAREN ARTHRITIS PAIN) 1 % topical gel Apply 2 g to affected area four times daily. dextroamphetamine-amphetamine (ADDERALL) 20 mg tablet Take 20 mg by mouth once daily. tiZANidine (ZANAFLEX) 4 mg tablet Take 1 tablet by mouth at bedtime as needed (muscle spasm). Zinc Acetate, Oral, 50 mg (zinc) cap [...] Sulfamethoxazole-Tr* Swelling Adhesive Tape (Cammie* Hives, Itching PHYSICAL EXAMINATION: No vitals for VV General appearance: Well appearing, alert, in no acute distress, well-hydrated, well nourished. Head: NC/AT Eyes: EOMI grossly on video visit Neuro: Negative findings: speech normal, mental status labile, tearful, easily frustrated, no focal motor deficits noted by Zoom observation. CN VII intact to facial symmetry, CN VIII intact to hearing. Diagnoses and all orders for this visit: IIH (idiopathic intracranial hypertension) - PROVIDER ORDERED FOLLOW UP; Future Other polyneuropathy - CONSULT TO NEUROLOGY; Future Pt is 38 year old female with IIH but who has a (more content not included)... [facility] of Present illness Narrative* Rafy Goldberg MD - 07/22/2024 4:59 PM EDT HEADACHE MEDICINE ESTABLISHED VISIT July 22, 2024 5:00 PM VIDEO VISIT I have communicated my name and active licensure. The patient's identity and physical location wereverified at the time of this visit. Either the patient or their legal membership sales representative has been informed of the risks and benefits of -- and alternatives to -- treatment through a remote evaluation andconsents to proceed with the evaluation remotely. Answers submitted by the patient for this visit: Headache Questionnaire (Submitted on 07/22/2024) How many days have you been completely free of headache pain in the last month? : 15 INTERIM HISTORY: Pt returns for follow-up for IIH & chronic migraine. She saw Dr. Sherwood on 06/14/24 and was noted to have no papilledema, which is great news. Previous to Dr. Sherwood's appt, the pt had a dilated eye exam with RNFLwith Dr. Pablo Phipps from 06/03: Dilated Eye exam completed --> No evidence of disc edema b/l and RNFL appears stable. Pt remains on Diamox 500 mg po qam and 750 mg po qhs. She continues to have kidney stones. We discussed that the risk to eyesight from untreated IIH likely outweighs risk of kidney stones at this time. However, she reports that she is having a high burden of illness with the Diamox--cognitive fuzziness and peripheral tingling. She also reports imbalance and dropping stuff frequently. She had an EMG that was done by her chiropractor, and sought to discuss this with me. I informed her that I did not have the expertise to interpret EMG's. I am also suspect that this was done via chiropractic office, so have no way of knowing if their quality assurance representative is up to accepted standards. I referred her to general neurology for an input here as the provided written interpretation of theresults suggested either cubital tunnel or carpal tunnel impingement. I explained that I treat neither, so could not comment on veracity of the report. Either impingement may explain her dropping things or increase in clumsiness. She reports that the Parafon Forte burst did break her cycle of headaches. She reports that she hasnot had significant KHAN's since the Parafon Forte. She reports that she has lost 40 lbs in the last year. Started at 198# in August 2023, and now weigh 159#. Pt reports that she has joined an IIH support group, and has decided that she does not believe the link to obesity. Discussed that obesity does not explain every single case of IIH as it does occur in non-obese individuals, but also did inform her that obesity was a known risk factor for the condition. She asked if IIH was considered a complication of obesity and if having it would allow her to get Ozempic. I informed her that we do not prescribe Ozempic, so she would need to see either her PCP or a metabolics specialist to be considered for this. PAST MEDICAL HISTORY Diagnosis Date Fibromyalgia IIH (idiopathic intracranial hypertension) Osteoarthritis of multiple joints Palindromic rheumatism Current Outpatient Medications Medication Sig acetaZOLAMIDE (DIAMOX) 250 mg tablet Take 2 tablets by mouth every morning AND 3 tablets daily at bedtime. hydrOXYzine pamoate (VISTARIL) 50 mg capsule Take 50 mg by mouth daily at bedtime. diclofenac (VOLTAREN ARTHRITIS PAIN) 1 % topical gel Apply 2 g to affected area four times daily. dextroamphetamine-amphetamine (ADDERALL) 20 mg tablet Take 20 mg by mouth once daily. tiZANidine (ZANAFLEX) 4 mg tablet Take 1 tablet by mouth at bedtime as needed (muscle spasm). Zinc Acetate, Oral, 50 mg (zinc) cap [...] Sulfamethoxazole-Tr* Swelling Adhesive Tape (Cammie* Hives, Itching PHYSICAL EXAMINATION: No vitals for VV General appearance: Well appearing, alert, in no acute distress, well-hydrated, well nourished. Head: NC/AT Eyes: EOMI grossly on video visit Neuro: Negative findings: speech normal, mental status labile, tearful, easily frustrated, no focalmotor deficits noted by Zoom observation. CN VII intact to facial symmetry, CN VIII intact to hearing. Diagnoses and all orders for this visit: IIH (idiopathic intracranial hypertension) - PROVIDER ORDERED FOLLOW UP; Future Other polyneuropathy - CONSULT TO NEUROLOGY; Future Pt is 38 year old female with IIH but who has achieved normalization of previously noted papilledema on her current regimen. She also reports good control of headaches at this visit as well. Ultimately, she has no papilledema on her current Diamox dose of 500 mg qam and 750 mg po qhs, and KHAN's are reported controlled, so I think risks of changing meds right now outweigh any benefit. I discussed that given that we did not know whether her clumsiness and dropping things was due to nerve impingement as suggested on her outside EMG vs side effects of Diamox--I did not want to changeher Diamox dose at this time until further information was obtained via general neurology consultation. If further assessment seems to point more to Diamox as the culprit for her symptoms rather than a nerve impingement, then we may need to cautiously reduce her Diamox at that time coupled with serial ophthalmology exams to ensure there is no return of papilledema. I personally reviewed the images from her MRV on 07/03/24, and I do not appreciate any significant narrowing in the transverse sinuses. Agree with neuroradiology report that any such transverse sinus narrowing is an equivocal finding in this case. The time of our appointment was ended, and she became angry that I had not answered any of her questions. She accused me of being rude and not taking her concerns seriously. She accused me of giving her the run around. She then fired me as her headache provider. She informed me that she plans to see another headache provider in our section. I spent a total of 45 minutes on the date of the service which included preparing to see the patient, [id number] patient care, completing clinical documentation, performing a medically appropriate examination, counseling and educating the patient/family/caregiver, and ordering medications, tests,or procedures. Rafy Goldberg MD July 22, 2024 8:15 PM documented in [facility] Telephone encounter Note * Telephone Encounter - Glo Frances LPN - 07/18/2024 9:02 AM EDT Called spoke with patient, provider's message below given. Patient stated she currently is see Neurology at [facility] Dr. Rafy Goldberg. Upcoming appt noted on 07/22/24. [facility]03-10-2025 Miscellaneous Notes* Telephone Encounter - Gol Frances LPN - 07/18/2024 9:02 AM EDT Called spoke with patient, provider's message below given. Patient stated she currently is see Neurology at [facility] Dr. Rafy Goldberg. Upcoming appt noted on 07/22/24. * Telephone Encounter - Cassandra Tinsley APRN.CNP - 07/18/2024 8:27 AM EDT EMG reports received. Recommend consult to neurology. Please help patient schedule Cassandra Tinsley APRN.CNP * Telephone Encounter - Glo Frances LPN - 07/18/2024 7:01 AM EDT Copy of the report given to provider to review. * Telephone Encounter - Jeanne Romero - 07/15/2024 9:20 AM EST Karolina is calling Cassandra Tinsley APRN.CNP today with concern regarding EMG. Her chiropractor is sending everything over this morning. Please review. Patient has been identified by name and birthdate. Person calling: self Call patient at: on cell [phone] (home) [phone] (cell) Was an appointment scheduled: No Closing statement: Results or non-symptom based questions: Thank you for calling [facility], your call will be returned within the next business day. Jeanne Romero documented in this encounter[facility] Telephone encounter Note * Telephone Encounter - Cassandra Tinsley APRN.CNP - 07/18/2024 8:27 AM EDT EMG reports received. Recommend consult to neurology. Please help patient schedule Cassandra Tinsley APRN.CNP [facility]03-10-2025 Telephone encounter Note* Telephone Encounter - Glo Frances LPN - 07/18/2024 7:01 AM EDT Copy of the report given to provider to review. [facility]03-07-2025 Telephone encounter Note* Telephone Encounter - Jeanne Romero - 07/15/2024 9:20 AM EST Karolina is calling Cassandra Tinsley APRN.CNP today with concern regarding EMG. Her chiropractor is sending everything over this morning. Please review. Patient has been identified by name and birthdate. Person calling: self Call patient at: on cell [phone] (home) [phone] (cell) Was an appointment scheduled: No Closing statement: Results or non-symptom based questions: Thank you for calling [facility], your call will be returned within the next business day. Jeanne Romero [facility]03-03-2025 Instructions* Patient Instructions* Cassandra Tinsley APRN.CNP - 07/11/2024 9:55 AM EST We will obtain EMG report from [facility] You may benefit from evaluation by Neuromuscular given your continued numbness and tingling in yourthighs Please watch for the following red flag symptoms: -weight loss, fevers -chills, night time awakening of pain - bowel bladder incontinence (difficulty holding your urine or stool) -saddle anesthesia (numbness and tingling in your groin area) - progressive numbness or weakness. If these symptoms should arise you should seek emergency treatment. documented in this encounterMer[facility]25 NoteHNO ID: [id number] Author: CASSANDRA TINSLEY APRN.CNP Service: ? Author Type: Nurse Practitioner Type: Progress Notes Filed: 07/11/2024 09:57 Note Text: Pain Management Virtual Visit Karolina Nicole is a 38 year old female presents for a vitriual visit for a follow-up for her neck, back and anterior thigh pain. She reports no change in her pain since the last visit. I have communicated my name and active licensure. The patient's identity and physical location were verified at the time of this visit. Either the patient or their legal membership sales representative has been informed of the risks and benefits of -- and alternatives to -- treatment through a remote evaluation and consents to proceed with the evaluation remotely. She reports her pain is located in the low back, neck, and anterior thigh pain and radiates to bilateral lower extremities along anterior aspect to the level of knee. Current Outpatient Medications on File Prior to Visit Medication Sig acetaZOLAMIDE (DIAMOX) 250 mg tablet Take 2 tablets by mouth every morning AND 3 tablets daily at bedtime. hydrOXYzine pamoate (VISTARIL) 50 mg capsule Take 50 mg by mouth daily at bedtime. diclofenac (VOLTAREN ARTHRITIS PAIN) 1 % topical gel Apply 2 g to affected area four times daily. dextroamphetamine-amphetamine (ADDERALL) 20 mg tablet Take 20 mg by mouth once daily. tiZANidine (ZANAFLEX) 4 mg tablet Take 1 tablet by mouth at bedtime as needed (muscle spasm). Zinc Acetate, Oral, 50 mg (zinc) cap Take 50 capsules by mouth once daily. Cetirizine 10 mg cap mv,calcium,min/iron/folic/vitK (MULTI FOR HER ORAL) PREMARIN 0.45 mg tablet montelukast (SINGULAIR) 10 mg tablet Montelukast Active 10 MG PO Daily March 24, 2021 12:00am No current facility-administered medications on file prior to visit. Review of Symptoms: GENERAL:No weight loss, malaise or fevers., SEE HPI GASTROINTESTINAL: Negative for abdominal discomfort, blood in stools or black stools or change in bowel habits GENITOURINARY: No history of dysuria, frequency or incontinence MUSCULOSKELETAL: back pain and thigh numbness and tingling NEUROLOGIC:See HPI Assessment: Some element copied from my note on 06/14/2024, which have been updated where appropriate, and all reflect my current medical decision making from today. This is a 38 year old female with history of chronic pain in the setting of chronic neck, and lower back pain, IIH. She recently established care with Dr. Cartagena on 05/20/2024. Since last office visit she has undergone MRI of cervical and lumbar spine that reported: Essentially normal examination of the cervical spine. 2. Mild degenerative change at L5-S1. She reports having improvement of her neck pain. With taking paraforte. She continues to be most bothered by bilateral anterior thigh numbness. She reports these symptoms will worsen with walking and standing. She is not able to walk or stand due to these symptoms. The numbness will improve if she sits but is still present. She reports having EMG nerve conduction study of her arm and bilateral legs. She reports this testing was done at [facility] in [place] by Dr. Perry. We will request copies of these reports. She denies any red flag symptoms including weight loss, fevers, chills, night time awakening of pain, bowel bladder incontinence, saddle anesthesia, progressive numbness or weakness. We discussed that if these symptoms should arise she should seek emergency treatment. In the past she was trial on Lyrica with Dr. Falk but felt his made her symptoms worse and she discontinued this. She has undergone PT on 05/16/2024, 05/20/2024, 06/01/2024 and she has undergone critical care educator on 05/13/2024, 05/16/2024, 05/20/2024, 05/26/2024, 06/01/2024, 06/08/2024, 06/13/2024. She has continued to take Naprosyn as needed for pain I spent a total of 30 minutes on the date of the service which included preparing to see the patient, [id number] patient care, completing clinical documentation, obtaining and/or reviewing separately obtained history, performing a medically appropriate examination, counseling and educating the patient/family/caregiver, and ordering medications, tests, or procedures. Anterior thigh numbness (primary encounter diagnosis) Chronic pain syndrome PLAN: 1) Obtain EMG from [facility] 2) Patient may benefit from evaluation by Neuromuscular team given her continued anterior thigh paresthesias 3) We reviewed red flag symptoms to watch for 4) Will follow up with patient with further recommendations once EMG are received and reviewed The above plan and management options were discussed at length with patient. Patient is in agreement with the above and verbalized understanding. Cassandra Tinsley APRN.VAISHNAVI July 11[facility]03-03-[facility] History of Present illness Narrative* Cassandra Tinsley APRN.VAISHNAVI - 07/11/2024 9:31 AM EST Pain Management Virtual Visit Karolina Nicole is a 38 year old female presents for a vitriual visit for a follow-up for her neck, back and anterior thigh pain. She reports no change in her pain since the last visit. I have communicated my name and active licensure. The patient's identity and physical location wereverified at the time of this visit. Either the patient or their legal membership sales representative has been informed of the risks and benefits of -- and alternatives to -- treatment through a remote evaluation andconsents to proceed with the evaluation remotely. She reports her pain is located in the low back, neck, and anterior thigh pain and radiates to bilateral lower extremities along anterior aspect to the level of knee. Current Outpatient Medications on File Prior to Visit Medication Sig acetaZOLAMIDE (DIAMOX) 250 mg tablet Take 2 tablets by mouth every morning AND 3 tablets daily at bedtime. hydrOXYzine pamoate (VISTARIL) 50 mg capsule Take 50 mg by mouth daily at bedtime. diclofenac (VOLTAREN ARTHRITIS PAIN) 1 % topical gel Apply 2 g to affected area four times daily. dextroamphetamine-amphetamine (ADDERALL) 20 mg tablet Take 20 mg by mouth once daily. tiZANidine (ZANAFLEX) 4 mg tablet Take 1 tablet by mouth at bedtime as needed (muscle spasm). Zinc Acetate, Oral, 50 mg (zinc) cap Take 50 capsules by mouth once daily. Cetirizine 10 mg cap mv,calcium,min/iron/folic/vitK (MULTI FOR HER ORAL) PREMARIN 0.45 mg tablet montelukast (SINGULAIR) 10 mg tablet Montelukast Active 10 MG PO Daily March 24, 2021 12:00am No current facility-administered medications on file prior to visit. Review of Symptoms: GENERAL:No weight loss, malaise or fevers., SEE HPI GASTROINTESTINAL: Negative for abdominal discomfort, blood in stools or black stools or change in bowel habits GENITOURINARY: No history of dysuria, frequency or incontinence MUSCULOSKELETAL: back pain and thigh numbness and tingling NEUROLOGIC:See HPI Assessment: Some element copied from my note on 06/14/2024, which have been updated where appropriate, and all reflect my current medical decision making from today. This is a 38 year old female with history of chronic pain in the setting of chronic neck, and lowerback pain, IIH. She recently established care with Dr. Cartagena on 05/20/2024. Since last office visit she has undergone MRI of cervical and lumbar spine that reported: Essentially normal examination of the cervical spine. 2. Mild degenerative change at L5-S1. She reports having improvement of her neck pain. With taking paraforte. She continues to be most bothered by bilateral anterior thigh numbness. She reports these symptoms will worsen with walking andstanding. She is not able to walk or stand due to these symptoms. The numbness will improve if she sits but is still present. She reports having EMG nerve conduction study of her arm and bilateral legs. She reports this testing was done at [facility] in [place] by Dr. Perry. We will request copies of these reports. She denies any red flag symptoms including weight loss, fevers, chills, night time awakening of pain, bowel bladder incontinence, saddle anesthesia, progressive numbness or weakness. We discussed that if these symptoms should arise she should seek emergency treatment. In the past she was trial on Lyrica with Dr. Falk but felt his made her symptoms worse and she discontinued this. She has undergone PT on 05/16/2024, 05/20/2024, 06/01/2024 and she has undergone critical care educator on 05/13/2024, 05/16/2024, 05/20/2024, 05/26/2024, 06/01/2024, 06/08/2024, 06/13/2024. She has continued to take Naprosyn as needed for pain I spent a total of 30 minutes on the date of the service which included preparing to see the patient, [id number] patient care, completing clinical documentation, obtaining and/or reviewing separately obtained history, performing a medically appropriate examination, counseling and educating the pat ient/family/caregiver, and ordering medications, tests, or procedures. Anterior thigh numbness (primary encounter diagnosis) Chronic pain syndrome PLAN: 1) Obtain EMG from [facility] 2) Patient may benefit from evaluation by Neuromuscular team given her continued anterior thigh paresthesias 3) We reviewed red flag symptoms to watch for 4) Will follow up with patient with further recommendations once EMG are received and reviewed The above plan and management options were discussed at length with patient. Patient is in agreement with the above and verbalized understanding. Cassandra Tinsley APRN.VAISHNAVI July 11, 2024 [address] [facility] [address] [facility]25 NoteHNO ID: [id number] Author: ABDULLAHI NUNEZ RT(R) Service: Radiology Author Type: Technologist Type: Progress Notes Filed: 07/03/2024 11:51 Note Text: Radiology Service Progress Note PATIENT NAME: Karolina Nicole DATE OF SERVICE: July 03, 2024 TIME: 11:48 AM PATIENT IDENTITY VERIFICATION COMPLETED USING TWO (2) IDENTIFIERS: Name and Date of confirmed by patient verbally and Name and Date of confirmed by identification band. FALL SCREENING: Has the patient had 2 falls in the last year or 1 fall with injury or currently using an Ambulatory Assistive Device (Walker, Cane, Wheelchair, Crutches, etc.)? No PATIENT GENDER DATA: Assigned female at . status: : No status: NO. PATIENT RELEVANT IMPLANT DATA REVIEWED: Yes PATIENT PRESENTS WITH AN IMPLANTABLE OR ATTACHED REFINER OPERATOR: No RADIOLOGY DEPARTMENT: MR; Exam(s) Completed: Head: Routine Brain Sagittal Sinus MRV Spine: Cervical spine and Lumbar spine PERIPHERAL IV DATA: Site assessment: Clean,Dry and Intact, Site disposition Discontinued SIGNED BY: RT Martin(R) July 03, 2024 11:48 [facility]02-21-2025 NoteHNO ID: [id number] Author: HANK MERIDA MD Service: ? Author Type: Physician Type: Progress Notes Filed: 07/01/2024 16:38 Note Text: [facility] NEW PATIENT HISTORY AND PHYSICAL EXAM PATIENT INFO: Karolina Nicole 38 year old CHIEF COMPLAINT: right flank pain HISTORY: Karolina Nicole is a 38 year old female with Ho urinary stones. LAPAROSCOPIC CHOLECYSTECTOMY LAPAROSCOPY-ROBERTO LIGATE FALLOPIAN TUBE REMOVAL OF OVARY/TUBE(S) TOTAL ABDOM HYSTERECTOMY Fibromyalgia IIH (idiopathic intracranial hypertension) Osteoarthritis of multiple joints Palindromic rheumatism Who comes for evaluation of right subcostal and flank pain over the last 2 months. Intermittent, sharp, worsened when lying down on the right side. Lost 35 lbs in the last 4 months. No stones in CT done in 06-10-2023 She was done a CT flank in 06/09/24 2 mm stone in the left upper pole and 3 mm stone in the left lower pole Creat 1.05 UA Normal She is taking Acetazolamide, she has been taking over the last year for her idiopathic intracranial hypertension, can increase the risk of developing kidney stones, particularly with long-term use, due to its effect on urine composition, making it more prone to crystal formation Location: right flank Pain Character: sharp Severity Scale: severe Duration: 2 months Timing: intermittently Modifying Factors: Worsened by lying on the right side. Associated signs and symptoms: pain Consultation requested by Health Club Attendant Role and Specialty Contact Info Address Start End Comments Yoan Ivey MD General (Family Medicine) [address] [facility] [address] 06/06/2024 - - for an opinion regarding urinary stones. My final recommendations will be communicated back to the requesting physician by way of shared medical record or letter via [place] mail Visit complexity inherent to evaluation and management associated with medical care services that serve as the continuing focal point for all needed health care services and/or with medical care services that are part of ongoing care related to a patient?s single, serious condition or a complex condition. LAST MENSTRUAL PERIOD DATE: 2012 Pregnancies Pregnancies: 5, Births: 3, and Abortions: 2 miscarriages PAST MEDICAL HISTORY: PAST MEDICAL HISTORY Diagnosis Date Fibromyalgia IIH (idiopathic intracranial hypertension) Osteoarthritis of multiple joints Palindromic rheumatism PAST SURGICAL HISTORY: PAST SURGICAL HISTORY Procedure Laterality Date LAPAROSCOPIC CHOLECYSTECTOMY 07/29/2023 LAPAROSCOPY-ROBERTO 10/19/2012 LIGATE FALLOPIAN TUBE Bilateral 12/15/2011 REMOVAL OF OVARY/TUBE(S) Bilateral 10/19/2012 TOTAL ABDOM HYSTERECTOMY 10/19/2012 FAMILY HISTORY: FAMILY HISTORY Problem Relation Age of Onset Cancer Mother Cataract Mother Hypertension Sister Cataract Sister Blindness Sister Heart Maternal Grandmother Glaucoma No Family History Detached Retina No Family History Macular Degen No Family History SOCIAL HISTORY: Social History Tobacco Use Smoking status: Every Day Current packs/day: 0.50 Types: Cigarettes Smokeless tobacco: Never Tobacco comments: 1 pack every 2 days Vaping Use Vaping status: Never Used Substance Use Topics Alcohol use: Not Currently Drug use: Not Currently MEDICATIONS: Current Outpatient Medications Medication Instructions acetaZOLAMIDE SR (DIAMOX SEQUELS) 500 mg, ORAL, 2 TIMES DAILY Cetirizine 10 mg cap No dose, route, or frequency recorded. dextroamphetamine-amphetamine (ADDERALL) 20 mg tablet 20 mg, DAILY diclofenac (VOLTAREN ARTHRITIS PAIN) 2 g, TOPICAL, 4 TIMES DAILY hydrOXYzine pamoate (VISTARIL) 50 mg, AT BEDTIME montelukast (SINGULAIR) 10 mg tablet Montelukast Active 10 MG PO Daily March 24, 2021 12:00am mv,calcium,min/iron/folic/vitK (MULTI FOR HER ORAL) No dose, route, or frequency recorded. PREMARIN 0.45 mg tablet No dose, route, or frequency recorded. tiZANidine (ZANAFLEX) 4 mg, ORAL, AT BEDTIME NEEDED Zinc Acetate, Oral, 50 mg (zinc) cap 50 capsules, ORAL, DAILY LABS: Creatinine (mg/dL) Date Value 02/24/2024 1.08 09/29/2023 0.91 Additional data reviewed: U/A, radiology, physician visualization of radiology, and labs Specific Donna, Ur Date Value Ref Range Status 09/29/2023 1.007 1.005 - 1.030 Final Glucose, Urine Date Value Ref Range Status 09/29/2023 Negative Negative Final Bilirubin, Urine Date Value Ref Range Status 09/29/2023 Negative Negative Final Ketones, Urine Date Value Ref Range Status 09/29/2023 Negative Negative Final Hemoglobin/Blood,Ur Date Value Ref Range Status 09/29/2023 Negative Negative Final Protein, Urine Date Value Ref Range Status 09/29/2023 Negative Negative Final Nitrites Date Value Ref Range Status 09/29/2023 Negative Negative Final WBC, Urine Date Value Ref Range Status 09/29/19 (more content not included)...[facility]02-21-[facility] History of Present illness Narrative* Hank Merida MD - 07/01/2024 4:09 PM EST Images from the original note were not included. [facility] NEW PATIENT HISTORY AND PHYSICAL EXAM PATIENT INFO: Karolina Nicole 38 year old CHIEF COMPLAINT: right flank pain HISTORY: Karolina Nicole is a 38 year old female with Ho urinary stones. LAPAROSCOPIC CHOLECYSTECTOMY LAPAROSCOPY-ROBERTO LIGATE FALLOPIAN TUBE REMOVAL OF OVARY/TUBE(S) TOTAL ABDOM HYSTERECTOMY Fibromyalgia IIH (idiopathic intracranial hypertension) Osteoarthritis of multiple joints Palindromic rheumatism Who comes for evaluation of right subcostal and flank pain over the last 2 months. Intermittent, sharp, worsened when lying down on the right side. Lost 35 lbs in the last 4 months. No stones in CT done in 06-10-2023 She was done a CT flank in 06/09/24 2 mm stone in the left upper pole and 3 mm stone in the left lower pole Creat 1.05 UA Normal She is taking Acetazolamide, she has been taking over the last year for her idiopathic intracranialhypertension, can increase the risk of developing kidney stones, particularly with long-term use, due to its effect on urine composition, making it more prone to crystal formation Location: right flank Pain Character: sharp Severity Scale: severe Duration: 2 months Timing: intermittently Modifying Factors: Worsened by lying on the right side. Associated signs and symptoms: pain Consultation requested by Health Club Attendant Role and Specialty Contact Info Address Start End Comments Yoan Ivey MD General (Family Medicine) [address] [id number] 06/06/2024 - - for an opinion regarding urinary stones. My final recommendations will be communicated back to the requesting physician by way of shared medical record or letter via [place] mail Visit complexity inherent to evaluation and management associated with medical care services that serve as the continuing focal point for all needed health care services and/or with medical care services that are part of ongoing care related to a patient s single, serious condition or a complex condition. LAST MENSTRUAL PERIOD DATE: 2012 Pregnancies Pregnancies: 5, Births: 3, and Abortions: 2 miscarriages PAST MEDICAL HISTORY: PAST MEDICAL HISTORY Diagnosis Date Fibromyalgia IIH (idiopathic intracranial hypertension) Osteoarthritis of multiple joints Palindromic rheumatism PAST SURGICAL HISTORY: PAST SURGICAL HISTORY Procedure Laterality Date LAPAROSCOPIC CHOLECYSTECTOMY 07/29/2023 LAPAROSCOPY-ROBERTO 10/19/2012 LIGATE FALLOPIAN TUBE Bilateral 12/15/2011 REMOVAL OF OVARY/TUBE(S) Bilateral 10/19/2012 TOTAL ABDOM HYSTERECTOMY 10/19/2012 FAMILY HISTORY: FAMILY HISTORY Problem Relation Age of Onset Cancer Mother Cataract Mother Hypertension Sister Cataract Sister Blindness Sister Heart Maternal Grandmother Glaucoma No Family History Detached Retina No Family History Macular Degen No Family History SOCIAL HISTORY: Social History Tobacco Use Smoking status: Every Day Current packs/day: 0.50 Types: Cigarettes Smokeless tobacco: Never Tobacco comments: 1 pack every 2 days Vaping Use Vaping status: Never Used Substance Use Topics Alcohol use: Not Currently Drug use: Not Currently MEDICATIONS: Current Outpatient Medications Medication Instructions acetaZOLAMIDE SR (DIAMOX SEQUELS) 500 mg, ORAL, 2 TIMES DAILY Cetirizine 10 mg cap No dose, route, or frequency recorded. dextroamphetamine-amphetamine (ADDERALL) 20 mg tablet 20 mg, DAILY diclofenac (VOLTAREN ARTHRITIS PAIN) 2 g, TOPICAL, 4 TIMES DAILY hydrOXYzine pamoate (VISTARIL) 50 mg, AT BEDTIME montelukast (SINGULAIR) 10 mg tablet Montelukast Active 10 MG PO Daily March 24, 2021 12:00am mv,calcium,min/iron/folic/vitK (MULTI FOR HER ORAL) No dose, route, or frequency recorded. PREMARIN 0.45 mg tablet No dose, route, or frequency recorded. tiZANidine (ZANAFLEX) 4 mg, ORAL, AT BEDTIME NEEDED Zinc Acetate, Oral, 50 mg (zinc) cap 50 capsules, ORAL, DAILY LABS: Creatinine (mg/dL) Date Value 02/24/2024 1.08 09/29/2023 0.91 Additional data reviewed: U/A, radiology, physician visualization of radiology, and labs Specific Donna, Ur Date Value Ref Range Status 09/29/2023 1.007 1.005 - 1.030 Final Glucose, Urine Date Value Ref Range Status 09/29/2023 Negative Negative Final Bilirubin, Urine Date Value Ref Range Status 09/29/2023 Negative Negative Final Ketones, Urine Date Value Ref Range Status 09/29/2023 Negative Negative Final Hemoglobin/Blood,Ur Date Value Ref Range Status 09/29/2023 Negative Negative Final Protein, Urine Date Value Ref Range Status 09/29/2023 Negative Negative Final Nitrites Date Value Ref Range Status 09/29/2023 Negative Negative Final WBC, Urine Date Value Ref Range Status 09/29/2023 0-5 /HPF 0-5 /HPF Final SSA Antibody IgG Date Value Ref Range Status 09/29/2023 <0.2 <1.0 AI Final Comment: Test Methodology: Multiplex flow immunoassay. CT abdomen pelvis wo con on 06-10-2023 CT abdomen pelvis wo con [facility] Main [address] [address] [address] Scan Report Signed Patient: Karolina Nicole MR#: [id number] : 1985 Acct:[id number] Age/Sex: 37 / F ADM Date: 06/09/23 Loc: ER Room: Type: [facility] ER Attending Dr: Copies to: Kat Sosa DO Ordering Provider: Kat Sosa DO Date of Service: 06/09/23 CT/CT abdomen [...] dictated by: Zandra Barksdale M.D.06/10/2023 7:51 AM REVIEW OF SYSTEMS: GENERAL: No fever, no fatigue and no weight loss. HEAD & NECK: No headache, no blurred vision and no hearing loss. CARDIOVASCULAR: No chest pain, no palpitations and no leg edema. RESPIRATORY: No cough, wheezing and no shortness of breath. : As indicated in HPI. GI: No epigastric discomfort, no blood in stool and no changes in bowel habits. MUSCULOSKELETAL: No neck pain, + back pain and + joint pain. SKIN: No varicose veins, no rash and no abnormal itching. NEUROLOGICAL: No numbness, no seizures and no tremor. BLOOD: No ekimosis, no hematomas or no bleeding from the gums. PHYSICAL EXAM: There were no vitals taken for this visit. GENERAL: Alert, oriented and in no distress. HEAD: Conjuctiva: no palor Sclera: no jaundice ABDOMEN: No CVA tenderness. EXTREMITIES: No leg edema, No joint swelling GENITALIA: Deferred ASSESSMENT/PLAN : 38 year old female with Ho urinary stones. LAPAROSCOPIC CHOLECYSTECTOMY LAPAROSCOPY-ROBERTO LIGATE FALLOPIAN TUBE REMOVAL OF OVARY/TUBE(S) TOTAL ABDOM HYSTERECTOMY Fibromyalgia IIH (idiopathic intracranial hypertension) Osteoarthritis of multiple joints Palindromic rheumatism Who comes for evaluation of right subcostal and flank pain over the last 2 months. Intermittent, sharp, worsened when lying down on the right side. Lost 35 lbs in the last 4 months. No stones in CT done in 06-10-2023 She was done a CT flank in 06/09/24 2 mm stone in the left upper pole and 3 mm stone in the left lower pole Creat 1.05 UA Normal I explain the pt that Acetazolamide, she has been taking over the last year for her idiopathic intracranial hypertension, can increase the risk of developing kidney stones, particularly with long-term use, due to its effect on urine composition, making it more prone to crystal formation. However, it would be up to her neurologist to change it or not to another medication. I also explain to her that her tiny stones are not responsible for her right flank pain. I place consult to Dr. Deonte Harmon. The pt. understands that I do not provide tests results over the phone unless there is an emergencyand eventually agrees to return to clinic to discuss tests results. ASSESSMENT/PLAN: 1. Kidney stone - ICD9: 592.0, ICD10: N20.0 2. IIH (idiopathic intracranial hypertension) - ICD9: 348.2, ICD10: G93.2 Hank Merida MD Medical Decision Making: Problems: Moderate: 1+ chronic illnesses with change Data: Unique test result(s) reviewed: 3+ Assessment requiring an independent historian(s) Risk: Low: Low risk from testing/treatment Medical Decision Making Level: 4 - Moderate Hank Merida MD, PhD [facility] [place] [facility] [id number] July 01, 2024 4:09 PM CC: REFERRING PROVIDER: Angie Alvarado MD PRIMARY CARE PHYSICIAN: Yoan Ivey MD documented in this encounterMer[facility] Telephone encounter Note * Telephone Encounter - Janina Ojeda RN - 06/14/2024 5:09 PM EST Reason for Call: Seen in ED on for Kidney stones in non [facility] ED. Patient states pain is worsening since ED visit Outcome: Home care recommendation given. Care advice reviewed and voiced understanding. Advised to call back and update PCP when office open or send a Urlist message with update. 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 MAIN CONCERN OR SYMPTOM: Worsening pain 2. ONSET: Discomfort in upper abdomen started 2-3 weeks ago. Had worsening fatigue since then too. Went to the ED on due to worsening pain. Patient states pain is worse since ED visit. Thursday pain started worsening 3. [id number]-[id number]-[id number]: slightly worse 4. VISIT DATE: 06/09/2024 5. VISIT DOCTOR: Bilateral stones seen on CT in kidneys 6. VISIT DIAGNOSIS: Side and back name. Bilateral kidney stones and fatty liver disease 7. TREATMENT: Left before discharge. Just advised to follow up with primary 8. NEXT APPOINTMENT: Scheduled with Urology on 07/01. Scheduled with Primary care tomorrow at 4pm. 9. PAIN: Rates pain at 6/10. Pain is 7.5 when laying on side or back. Pain is sharp and throbbing and intermittent. Patient's pain is worse on right side, on mid back (below rib cage) and intermittently on left side. Can't take ibuprofen. Doesn't have tylenol. Has not tried any medication for pain at this time. Has not been home. 10. FEVER: Thursday evening temperature was 100.3 but normal now 11. OTHER SYMPTOMS: fatigue, yellowing of lower eye lids, neck lymph nodes swollen, hands and ankles are swollen (has autoimmune disorder that can cause swelling), no urinary symptoms other than frequency and that is normal for her, nausea, weight loss 12. : hysterectomy in 2012 ED was following up on liver symptoms (yellowing of eye lids, shadow on xray) and was told she has kidney stone in each kidney and fatty liver disease. Stone was inside the kidney at time of CT scan. Patient concerned if Diamox from neurology is causing kidney stones Protocols used: Flank [id number], Kidney Stone Follow-up [id number] [facility]02-04-2025 Miscellaneous Notes* Telephone Encounter - Janina Ojeda RN - 06/14/2024 5:09 PM EST Reason for Call: Seen in ED on for Kidney stones in non [facility] ED. Patient states pain is worsening since ED visit Outcome: Home care recommendation given. Care advice reviewed and voiced understanding. Advised to call back and update PCP when office open or send a Urlist message with update. 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 MAIN CONCERN OR SYMPTOM: Worsening pain 2. ONSET: Discomfort in upper abdomen started 2-3 weeks ago. Had worsening fatigue since then too. Went to the ED on due to worsening pain. Patient states pain is worse since ED visit. Thursday pain started worsening 3. [id number]: slightly worse 4. VISIT DATE: 06/09/2024 5. VISIT DOCTOR: Bilateral stones seen on CT in kidneys 6. VISIT DIAGNOSIS: Side and back name. Bilateral kidney stones and fatty liver disease 7. TREATMENT: Left before discharge. Just advised to follow up with primary 8. NEXT APPOINTMENT: Scheduled with Urology on 07/01. Scheduled with Primary care tomorrow at 4pm. 9. PAIN: Rates pain at 6/10. Pain is 7.5 when laying on side or back. Pain is sharp and throbbing and intermittent. Patient's pain is worse on right side, on mid back (below rib cage) and intermittently on left side. Can't take ibuprofen. Doesn't have tylenol. Has not tried any medication for pain at this time. Has not been home. 10. FEVER: Thursday evening temperature was 100.3 but normal now 11. OTHER SYMPTOMS: fatigue, yellowing of lower eye lids, neck lymph nodes swollen, hands and ankles are swollen (has autoimmune disorder that can cause swelling), no urinary symptoms other than frequency and that is normal for her, nausea, weight loss 12. : hysterectomy in 2013 ED was following up on liver symptoms (yellowing of eye lids, shadow on xray) and was told she has kidney stone in each kidney and fatty liver disease. Stone was inside the kidney at time of CT scan. Patient concerned if Diamox from neurology is causing kidney stones Protocols used: Flank [id number], Kidney Stone Follow-up [id number] documented in this encounterMer[facility]25 NoteHNO ID: [id number] Author: CASSANDRA TINSLEY APRN.PARIMUTUEL CLERK Service: ? Author Type: Nurse Practitioner Type: Progress Notes Filed: 06/15/2024 09:33 Note Text: Ms. Nicole a 38 year old female returns today for follow up of LB, she states that symptoms have not changed. PAIN: Pain Yes. Location: LB, rates pain a 6 on a pain scale of 1-10. Patient describes pain as aching, duration to the present time occuring daily x 5. MEDICATIONS: Medications reviewed and verified. Current Outpatient Medications Medication Sig hydrOXYzine pamoate (VISTARIL) 50 mg capsule Take 50 mg by mouth daily at bedtime. acetaZOLAMIDE SR (DIAMOX SEQUELS) 500 mg capsule Take 1 capsule by mouth two times a day. dextroamphetamine-amphetamine (ADDERALL) 20 mg tablet Take 20 mg by mouth once daily. naproxen (NAPROSYN) 500 mg tablet Take 1 tablet by mouth two times a day as needed for pain. FOR PAIN. TAKE WITH FOOD. tiZANidine (ZANAFLEX) 4 mg tablet Take 1 tablet by mouth at bedtime as needed (muscle spasm). Zinc Acetate, Oral, 50 mg (zinc) cap Take 50 capsules by mouth once daily. Cetirizine 10 mg cap mv,calcium,min/iron/folic/vitK (MULTI FOR HER ORAL) PREMARIN 0.45 mg tablet montelukast (SINGULAIR) 10 mg tablet Montelukast Active 10 MG PO Daily March 24, 2021 12:00am Current Facility-Administered Medications Medication Dose Route Frequency tropicamide 1 % 1 Drop (MYDRIACYL) 1 Drop BOTH EYES As Directed PHENYLephrine 2.5 % 1 Drop (AK-DILATE, ANTHONY-SYNEPHRINE) 1 Drop BOTH EYES As Directed proparacaine 0.5 % 1 Drop (ALCAINE) 1 Drop BOTH EYES As Directed Patient feels that medications have not used PREVIOUS TREATMENTS LASTING SIX WEEKS IN THE LAST SIX MONTHS Active conservative therapy lasting 6 weeks in the last six months (see below) 1. Physical therapy: 2. Home exercise program after PT: 3. Occupational therapy: No 4. A physician supervised home exercise program (HEP): No 5. Graphic Manager: No Passive conservative therapy lasting 6 weeks in the last six months (see below) 1. Medical devises: No 2. Acupuncture: No 3. Tens unit: No 4. Prescription pain medication: No 5. NSAIDS: No TREATMENTS: Graphic Manager Naproxen 500 mg BID Zanaflex 4 mg 1 poi qhs EXAM: Pulse 68 Wt 75.2 kg (165 lb 12.6 oz) SpO2 99% BMI 29.84 kg/m? No acute distress noted, patient alert and oriented X's 3. Resistive testing proximal and distal in the upper and the lower extremeties show 5/5 strength. DTR's are symmetrical in the upper and the lower extremeties. Nerve root tension signs: Negative. Heart: RRR Lungs: Clear Abdomen: Soft, non tender Spine: Tenderness with palpation of cervical and lumbar spine IMPRESSION: Some element copied from my note on 06/03/2023, which have been updated where appropriate, and all reflect my current medical decision making from today. This is a 38 year old female [...] numbness and tingling. She has been going [facility] in [place] Dr. Perry once a week since May. [...] better assessment of her pain. She has undergone PT on 05/16/2024, 05/20/2024, 06/01/2024 and she has undergone critical care educator on 05/13/2024, 05/16/2024, 05/20/2024, 05/26/2024, 06/01/2024, 06/08/2024, 06/13/2024. She has continued to take Naprosyn as needed for pain I spent a total of 30 minutes on the date of the service which included preparing to see the patient, [id number] patient care, completing clinical documentation, obtaining and/or reviewing separately obtained history, performing a medically appropriate examination, counseling and educating the patient/family/caregiver, and ordering medications, tests, or procedures. Lumbosacral spondylosis without myelopathy (primary encounter diagnosis) Polyarthralg (more content not included)...[facility] History of Present illness Narrative* Cassandra Tinsley APRN.PARIMUTUEL CLERK - 06/14/2024 2:57 PM EST Ms. Nicole a 38 year old female returns today for follow up of LB, she states that symptoms have not changed. PAIN: Pain Yes. Location: LB, rates pain a 6 on a pain scale of 1-10. Patient describes pain as aching, duration to the present time occuring daily x 5. MEDICATIONS: Medications reviewed and verified. Current Outpatient Medications Medication Sig hydrOXYzine pamoate (VISTARIL) 50 mg capsule Take 50 mg by mouth daily at bedtime. acetaZOLAMIDE SR (DIAMOX SEQUELS) 500 mg capsule Take 1 capsule by mouth two times a day. dextroamphetamine-amphetamine (ADDERALL) 20 mg tablet Take 20 mg by mouth once daily. naproxen (NAPROSYN) 500 mg tablet Take 1 tablet by mouth two times a day as needed for pain. FOR PAIN. TAKE WITH FOOD. tiZANidine (ZANAFLEX) 4 mg tablet Take 1 tablet by mouth at bedtime as needed (muscle spasm). Zinc Acetate, Oral, 50 mg (zinc) cap Take 50 capsules by mouth once daily. Cetirizine 10 mg cap mv,calcium,min/iron/folic/vitK (MULTI FOR HER ORAL) PREMARIN 0.45 mg tablet montelukast (SINGULAIR) 10 mg tablet Montelukast Active 10 MG PO Daily March 24, 2021 12:00am Current Facility-Administered Medications Medication Dose Route Frequency tropicamide 1 % 1 Drop (MYDRIACYL) 1 Drop BOTH EYES As Directed PHENYLephrine 2.5 % 1 Drop (AK-DILATE, ANTHONY-SYNEPHRINE) 1 Drop BOTH EYES As Directed proparacaine 0.5 % 1 Drop (ALCAINE) 1 Drop BOTH EYES As Directed Patient feels that medications have not used PREVIOUS TREATMENTS LASTING SIX WEEKS IN THE LAST SIX MONTHS Active conservative therapy lasting 6 weeks in the last six months (see below) 1. Physical therapy: 2. Home exercise program after PT: 3. Occupational therapy: No 4. A physician supervised home exercise program (HEP): No 5. Graphic Manager: No Passive conservative therapy lasting 6 weeks in the last six months (see below) 1. Medical devises: No 2. Acupuncture: No 3. Tens unit: No 4. Prescription pain medication: No 5. NSAIDS: No TREATMENTS: Graphic Manager Naproxen 500 mg BID Zanaflex 4 mg 1 poi qhs EXAM: Pulse 68 Wt 75.2 kg (165 lb 12.6 oz) SpO2 99% BMI 29.84 kg/m No acute distress noted, patient alert and oriented X's 3. Resistive testing proximal and distal in the upper and the lower extremeties show 5/5 strength. DTR's are symmetrical in the upper and the lower extremeties. Nerve root tension signs: Negative. Heart: RRR Lungs: Clear Abdomen: Soft, non tender Spine: Tenderness with palpation of cervical and lumbar spine IMPRESSION: Some element copied from my note on 06/03/2023, which have been updated where appropriate, and all reflect my current medical decision making from today. This is a 38 year old female with history of chronic pain in the setting of chronic neck, and lowerback pain, IIH. She recently established care with Dr. Cartagena on 05/20/2024. She last office visit she continue to have radicular neck and lower back pain. She reports having neck pain that starts in her neck and radiates into her shoulder and up her occiput. She also reportshaving lower back pain that will radiate down her legs. She also reports having associated numbnessand tingling. She has been going [facility] in [place] Dr. Perry once a week since May. [...] better assessment of her pain. She has undergone PT on 05/16/2024, 05/20/2024, 06/01/2024 and she has undergone critical care educator on 05/13/2024, 05/16/2024, 05/20/2024, 05/26/2024, 06/01/2024, 06/08/2024, 06/13/2024. She has continued to take Naprosyn as needed for pain I spent a total of 30 minutes on the date of the service which included preparing to see the patient, [id number] patient care, completing clinical documentation, obtaining and/or reviewing separately obtained history, performing a medically appropriate examination, counseling and educating the pat ient/family/caregiver, and ordering medications, tests, or procedures. Lumbosacral spondylosis without myelopathy (primary encounter diagnosis) Polyarthralgia Chronic pain syndrome Neck pain PLAN: MRI of cervical and lumbar spine Consider Epidural steroid injection Reviewed red flag symptoms to watch for D/c Naprosyn Trial of Voltaren gel RTC following MRI Cassandra Tinsley APRN.PARIMUTUEL CLERK June 15, 2024 documented in [address] [facility] NoteDate of Procedure 06/14/2024. Tester [employer] Bo[employer] Information Sustainable Systems Analyst: Start time: 8:58 AM. Stop time: 9:14 AM. Allergies to adhesive bandages. Reliability Right Eye Good. Left Eye Good. 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 Interval Change Right Eye Initial. Left Eye Initial.[id number] NoteDate of Procedure 06/14/2024. Tester [employer] Bo[employer] Information Sustainable Systems Analyst: Jazmine Hylton Start time: 9:45 AM. Stop time: 10:00 AM. Interval Change Right Eye Stable. Left Eye Stable. Notes OCT: normal average pRNFL thickness OU; normal average GCL +IPL thickness OU [id number] NoteHNO ID: [id number] Author: LLOYD SHERWOOD MD Service: ? Author Type: Physician Type: Progress Notes Filed: 06/14/2024 15:27 Note Text: Karolina Nicole is a 38 year old right-handed woman who presents today for her history of idiopathic intracranial hypertension (IIH). The patient was referred by Dr. Rafy Goldberg. At initial consultation on June 14, 2024, the patient reported vision loss in her right eye in 2021 for which she underwent work up that confirmed intracranial hypertension based on an opening pressure on lumbar puncture of 34 cm H2O. She was put on diamox in addition to ozempic with resultant 50 pound weight loss. 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 The diamox was discontinued at the end of 2022. She then developed worsening headaches while sick with multiple infections from May 2023 to August 2023. She ultimately underwent repeat lumbar puncture with opening pressure recorded at ~31 cm H2O at an outside facility on 08/25/23 per patient. She then established with neurology at [facility] in September of 2023 and was put on diamox. She has been followed by Dr. Goldberg as well as Dr. Francis. At initial consultation in my clinic she was maintained on diamox 500 mg twice a day. She was recently diagnosed with nephrolithiasis in the setting of diamox for which nephrology consultation was pending. She had experienced positional headaches, peripheral vision loss (bilateral inferotemporally per patient), transient visual obscurations, and pulsatile tinnitus. She denied diplopia. She gained back the initial 50 but lost 40 pounds in the preceding 4 months. She denied exposure to topical retin-A / accutane or recent COVID-19 infection. Was on a tetracycline in February. 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 Thorough review of the patient's medical, family, surgical and social history was performed along with medications, allergies, labs and imaging (if applicable). ASSESSMENT/PLAN: (G93.2) IIH (idiopathic intracranial hypertension) (primary encounter diagnosis) (H53.453) Other localized visual field defect, bilateral The patient's initial neuro-ophthalmic exam on 06/14/2024 showed overall good afferent visual pathway function with the exception of trace bilateral blind spot enlargement on marie visual field -- which was consistent with her report of IT visual field deficits. There was no active optic disc edema with only chronic appearing disc elevation. There was specifically no optic disc drusen, which was corroborated by bscan. This is of course of on therapeutic diamox dosing. I am happy to follow along with plan for a 5 month return visit, unless concerns arise in the interim, for which she was provided my contact information and encouraged to reach out. ER presentation is otherwise advised for any acute onset neurological deficits. Lloyd Sherwood MD 3:26 PM 06/14/2024 FOR ADMINISTRATIVE PURPOSES ONLY: My impression of this case is based upon an assessment of the the patient's subacute on chronic problems listed above that pose a threat to visual and neurologic function. 62 minutes were spent on total patient care on the day of service that includes both anbk-qv-djji and lul-gors-au-face time. This time was separate from any of my time spent completing and interpreting the ancillary testing (such as OCT, fundus photos, visual lugo) and sensorimotor exam, if applicable. This time was broken down into: 5 minutes reviewing the patient record before the visit, 20 minutes performing a medically appropriate neuro-ophthalmic history and exam (excluding time spent on the ancillary testing and sensorimotor exam, if applicable), 10 communicating results to the patient/family, 12 minutes counseling / educating the patient, 10 minutes documenting clinical information into the electronic health record of the patient, and 5 minutes coordinating care for the patient. I communicated with Dr. Goldberg and Dr. Ivey regarding the management of this patient. The assessment and plan were discussed extensively with the patient who was amenable and voiced understanding.[facility]02-04-[facility] History of Present illness Narrative* Lloyd Sherwood MD - 06/14/2024 11:01 AM EST Karolina Nicole is a 38 year old right-handed woman who presents today for her history of idiopathic intracranial hypertension (IIH). The patient was referred by Dr. Rafy Goldberg. At initial consultation on June 14, 2024, the patient reported vision loss in her right eye in 2021 for which she underwent work up that confirmed intracranial hypertension based on an opening pressure on lumbar puncture of 34 cm H2O. She was put on diamox in addition to ozempic with resultant 50 pound weight loss. 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 The diamox was discontinued at the end of 2022. She then developed worsening headaches while sick with multiple infections from May 2023 to August 2023. She ultimately underwent repeat lumbar puncture with opening pressure recorded at ~31 cm H2O at an outside facility on 08/25/23 per patient. She then established with neurology at [facility] in September of 2023 and was put on diamox. She has been followed by Dr. Goldberg as well as Dr. Francis. At initial consultation in my clinic she was maintained on diamox 500 mg twice a day. She was recently diagnosed with nephrolithiasis in the setting of diamox for which nephrology consultation was pending. She had experienced positional headaches, peripheral vision loss (bilateral inferotemporally per patient), transient visual obscurations, and pulsatile tinnitus. She denied diplopia. She gained back the initial 50 but lost 40 pounds in the preceding 4 months. She denied exposure to topical retin-A / accutane or recent COVID-19 infection. Was on a tetracycline in February. 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 Thorough review of the patient's medical, family, surgical and social history was performed along with medications, allergies, labs and imaging (if applicable). ASSESSMENT/PLAN: (G93.2) IIH (idiopathic intracranial hypertension) (primary encounter diagnosis) (H53.453) Other localized visual field defect, bilateral The patient's initial neuro-ophthalmic exam on 06/14/2024 showed overall good afferent visual pathwayfunction with the exception of trace bilateral blind spot enlargement on marie visual field -- which was consistent with her report of IT visual field deficits. There was no active optic disc edema with only chronic appearing disc elevation. There was specifically no optic disc drusen, which was corroborated by bscan. This is of course of on therapeutic diamox dosing. I am happy to follow along with plan for a 5 month return visit, unless concerns arise in the interim, for which she was provided my contact information and encouraged to reach out. ER presentation is otherwise advised for any acute onset neurological deficits. Lloyd Sherwood MD 3:26 PM 06/14/2024 FOR ADMINISTRATIVE PURPOSES ONLY: My impression of this case is based upon an assessment of the the patient's subacute on chronic problems listed above that pose a threat to visual and neurologic function. 62 minutes were spent on total patient care on the day of service that includes both jlui-ru-whjn and nrs-agkm-zu-face time. This time was separate from any of my time spent completing and interpreting the ancillary testing (such as OCT, fundus photos, visual lugo) and sensorimotor exam, if applicable. This time was broken down into: 5 minutes reviewing the patient record before the visit, 20 minutes performing a medically appropriate neuro- ophthalmic history and exam (excluding time spent on the ancillary testing and sensorimotor exam, if applicable), 10 communicating results to the patient/family, 12 minutes counseling / educating the patient, 10 minutes documenting clinical information into the electronic health record of the patient, and 5 minutes coordinating care for the patient. I communicated with Dr. Goldberg and Dr. Ivey regarding the management of this patient. The assessment and plan were discussed extensively with the patient who was amenable and voiced understanding. documented in this encounterMer[facility] NoteDate of Procedure 06/14/2024. Tester [employer]ed [employer] Boards Information DINA Ulloa ROUB 10:39 AM 06/14/2024 . Notes B-scan and A-scan OU: Mild to moderate optic disc elevation OU No optic disc drusen is detected OU No evidence of a crescent sign on B-germain cross-section OU Retrobulbar optic nerve diameter measures within normal limits with a negative 30-degree test indicative of normal subarachnoid fluid OUZEISS 06-14-2024 Telephone encounter Note* Telephone Encounter - Neva Benavides LPN - 06/14/2024 8:59 AM EST Pt has appt today. [facility]02-04-2025 Miscellaneous Notes* Telephone Encounter - Neva Benavides LPN - 06/14/2024 8:59 AM EST Pt has appt today. * Telephone Encounter - Glo Frances LPN - 06/13/2024 3:52 PM EST Called spoke with patient, explained she needs a follow up after her PT is completed. Patient requesting to be called tomorrow if Cassandra Laureano RIGGINS has any cancellations anytime noon or after. documented in [facility] Telephone encounter Note * Telephone Encounter - Glo Frances LPN - 06/13/2024 3:52 PM EST Called spoke with patient, explained she needs a follow up after her PT is completed. Patient requesting to be called tomorrow if Cassandra Tinsley CNP has any cancellations anytime noon or after. [facility]01-27-2025 Telephone encounter Note* Telephone Encounter - Cassandra Tinsley APRN.VAISHNAVI - 06/06/2024 4:37 PM EST Once patient finishes her critical care educator to fulfill her insurance requirements we will order MRIof cervical and lumbar spine Cassandra Tinsley APRN.CNP [facility] Work Phone: [phone]) 488-152401-27-2025 Miscellaneous Notes* Telephone Encounter - Cassandra Tinsley APRN.VAISHNAVI - 06/06/2024 4:37 PM EST Once patient finishes her critical care educator to fulfill her insurance requirements we will order MRIof cervical and lumbar spine Cassandra Tinsley APRN.CNP * Telephone Encounter - Ivanna Stahl RN - 06/06/2024 4:33 PM EST Pt calling regarding the questions she sent via My Chart. Pt inquiring what the next steps are moving forward. Pt requesting a call from Cassandra Tinsley's office. Patient may be reached at [phone] for any questions/ recommendations. documented in this encounterMer[facility] Telephone encounter Note * Telephone Encounter - Ivanna Stahl RN - 06/06/2024 4:33 PM EST Pt calling regarding the questions she sent via My Chart. Pt inquiring what the next steps are moving forward. Pt requesting a call from Cassandra Tinsley's office. Patient may be reached at [phone] for any questions/ recommendations. [facility]01-27-2025 Telephone encounter Note* Telephone Encounter - Glo Frances LPN - 06/06/2024 3:56 PM EST Called spoke with patient, further questions answered. Copy of xray report faxed to PCP's office. [facility]01-27-2025 Miscellaneous Notes* Telephone Encounter - Glo Frances LPN - 06/06/2024 3:56 PM EST Called spoke with patient, further questions answered. Copy of xray report faxed to PCP's office. * Telephone Encounter - Hazel Caba RN - 06/06/2024 3:34 PM EST Pt identified by name and Pt given message below Stated understanding Pts pcp is Dr Yoan Ivey [phone] Pt does not have a fax# Please call Dr Ivey for fax# Pt would like to discuss results today Pt is available this week at 330 pm Please call pt then * Telephone Encounter - Glo Frances LPN - 06/06/2024 9:00 AM EST Message left for patient to return call regarding provider's message below. * Telephone Encounter - Cassandra Tinsley APRN.CNP - 06/03/2024 5:10 PM EST Can we call patient Her xray of [...] to her PCP for evaluation Cassandra Tinsley APRN.PARIMUTUEL CLERK documented in this encounterMer[facility] Telephone encounter Note * Telephone Encounter - Hazel Caba RN - 06/06/2024 3:34 PM EST Pt identified by name and Pt given message below Stated understanding Pts pcp is Dr Yoan Ivey [phone] Pt does not have a fax# Please call Dr Ivey for fax# Pt would like to discuss results today Pt is available this week at 330 pm Please call pt then [facility]01-27-2025 Telephone encounter Note* Telephone Encounter - Glo Frances LPN - 06/06/2024 9:00 AM EST Message left for patient to return call regarding provider's message below. [facility]01-27-2025 Telephone encounter Note* Telephone Encounter - Zenaida Cabrera DO - 06/06/2024 7:18 AM EST Images from the original note [...] pain and will get updated MRI/MRV imaging. [facility]01-27-2025 Miscellaneous Notes* Telephone Encounter - Zenaida Cabrera DO - 06/06/2024 7:18 AM EST Images from the original note [...] get updated MRI/MRV imaging. documented in this encounterMer[facility]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 Sm Antibody Negative Negative Anti-Sm <1.0 AI <0.2 OIL SCOUT Antibody QUAL Negative Negative Anti-OIL SCOUT <1.0 AI <0.2 SSA Antibody Qual Negative Negative Anti-SSA <1.0 AI <0.2 Anti-SSB <1.0 AI <0.2 SSB Antibody Qual Negative Negative CENTROMERE AB QUAL Negative Negative Centromere Ab <1.0 AI <0.2 Scleroderma Ab Qual Negative Negative Scl-70 Abs, EIA <1.0 AI <0.2 MALIHA 1 ANTIBODY QUAL Negative Negative Maliha 1 Antibody <1.0 AI <0.2 Ribosomal OIL SCOUT Qualitative Negative Negative Ribosomal OIL SCOUT Ab <1.0 AI <0.2 Chromatin Ab Qual [...] neuro ophthalmology Will forward chart to Dr Lloyd Sherwood, see if she needs to see [...] given. Follow-up: 3 months Level of service: [facility] level 3 (20-29 min). Time spent 25 min on the day of service, which included preparing to see the patient, [id number] patient care, completing clinical documentation, counseling and educating the patient/family/caregiver, and ordering medications, tests, or procedures. Emilee Roca APRN.PARIMUTUEL CLERK documented in this encounterMercy Health St. [facility]08-23-2024 NoteHNO ID: [id number] Author: EMILEE ROCA APRN.VAISHNAVI Service: ? Author Type: Nurse Practitioner Type: Progress Notes Filed: 01/01/2024 12:24 Note Text: [facility] - Follow up Virtual Visit Last OV:10/09/23 Dr Goldberg Accompanied by: Self This visit was conducted as a virtual visit, with patient's permission, via ZOOM. It required patient-provider interaction for the medical decision making as documented below. Patient stated name and Patient location [place], [place] I have communicated my name and active licensure. The patient's identity and physical location were verified at the time of this visit. Either the patient or their legal membership sales representative has been informed of the risks [...] female with IIH, recent weight gain, daily KHAN's--off Diamox. I have restarted the Diamox today, [...] ALL of the followin (more content not included)...[facility] NoteDate of Procedure 12/25/2023. Tester [employer]ed [employer] Boards Information Sustainable Systems Analyst: tcp. Quality Right Eye Good. Left Eye Good. NFL Interpretation Right Eye Normal. Left Eye Normal. Interval Change Right Eye Initial. Left Eye Initial.[id number] NoteHNO ID: [id number] Author: TAMANNA BARRY OD Service: ? Author Type: ATTENDANT CHILD ACTIVITY Type: Progress Notes Filed: 12/25/2023 14:30 Note [...] Tamanna Barry, OD December 25, 2023 2:26 [facility]08-16-2024 History of Present illness Narrative* Tamanna [...] 25, 2023 2:26 PM documented in this encounterMercy Health St. [facility]08-14-2024 Hospital Discharge instructions Additional Instructions Please return to emergency department for any new or worrisome symptoms including any swelling of arm, numbness, weakness, tingling, redness of arm, fevers or chills. Follow-up with your family physician within the next 1 to 2 days.[facility] Work Phone: 1([phone]) 584-338906-03-2024 History of Present illness Narrative* Alem Cuadra MD - 10/12/2023 2:30 PM EDT Images from the original note were not included. Rheumatology Outpatient Clinic Date of Service: 10/12/2023 Patient: Karolina Nicole Medical Record: [id number] Primary Care Physician: No primary care provider on file. Referring Provider: SELF Last Rheumatology visit: 09/29/2023 (with Alem Cuadra) Chief complaint: Joint Pain The patient's identity and physical location were verified at the time of this visit. Either the patient or their legal membership sales representative has been informed of the risks [...] - 13.5 (09/29/2023) negative. Her most recent RADHA was positive (09/29/2023). HISTORY OF PRESENT ILLNESS [...] 0.18, UA-no proteinuria/hematuria Protein electrophoresis-no M protein RADHA positive, 1: 80 Anti-CISCO, dsDNA negative Lupus [...] Latest Ref Rng & Units 09/29/2023 Antibodies RADHA Negative Positive RADHA Titer 1:80 RADHA Pattern Nuclear fine speckled DNA Antibody <=200 IU/mL 29 Anti-Sm <1.0 AI <0.2 Sm Antibody Negative Negative Ribosomal OIL SCOUT Ab <1.0 AI <0.2 Ribosomal OIL SCOUT Qualitative Negative Negative Chromatin Ab <1.0 AI <0.2 Chromatin Ab Qual Negative Negative SSA Antibody Qual Negative Negative Anti-SSA <1.0 AI <0.2 Anti-SSB <1.0 AI <0.2 OIL SCOUT Antibody QUAL Negative Negative Scleroderma Ab Qual [...] Polyarthralgia 2. Chronic pain syndrome 3. Positive RADHA Patient with multiple joint pains episodic whole-body [...] intracranial hypertension, antiphospholipid antibodies are negative Although RADHA is mildly elevated, 1: 80, anti-CISCO and [...] screening Defer to PCP Orders this visit: [facility] on 10/12/23 C-REACTIVE PROTEIN SEDIMENTATION RATE, AZUCENA CONSULT TO [facility] (CHRONIC PAIN) Return for Pending test results. I spent a total of 25 minutes on the date of the service This note was partially generated with the assistance of [employer] voice recognition software. An attempt was made to correct any dictation errors however there may be some incorrect words, spellings, and punctuation. Alem Cuadra MD, [facility] Rheumatology documented in this encounterMercy Health St. [facility]05-31-[facility] History of Present illness Narrative* Rafy Goldberg MD - 10/09/2023 8:00 AM EDT [facility] NEW EVALUATION October 09, 2023 8:00 AM I have communicated my name and active licensure. The patient's identity and physical location wereverified at the time of this visit. Either the patient or their legal membership sales representative has been informed of the risks [...] ++ pulsatile tinnitus with laying down. Location: [facility] Quality/Description: pressure Associated Symptoms: Photophobia: yes Phonophobia: [...] female with IIH, recent weight gain, daily KHAN's--off Diamox. I have restarted theDiamox today, and [...] 09, 2023 8:32 AM documented in this encounterMercy Health St. [facility]05-30-2024 History and physical note * Anh Geller, [...] visit: Most recent imaging outside records from [facility] reviewed, including recent CT and XR. Records scanned into her chart. Office visit note from Dr. Duran 10/06/23 also reviewed. SIGNATURE: Joslyn Velez RN PATIENT NAME: Karolina Nicole DATE: October 08, 2023 TIME: 2:20 PM LOYDA Geller DO [facility]05-30-2024 History and physical note* Anh Geller DO [...] 10 mL injection (DEFINITY), , INTRAVENOUS, DIRECTED PRNMoise Avraham, MD sodium chloride 0.9 % (flush) 10 mL (BD POSIFLUSH), 10 mL, INTRAVENOUS, DIRECTED PRNMoise Avraham, MD ALLERGIES Allergen Reactions Latex Rash [...] visit: Most recent imaging outside records from [facility] reviewed, including recent CT and XR. Records scanned into her chart. Office visit note from Dr. Duran 10/06/23 also reviewed. SIGNATURE: Joslyn Rosie, RN PATIENT NAME: Karolina Nicole DATE: October 08, 2023 TIME: 2:20 PM LOYDA Geller DO documented in this encounterMercy Health St. [facility]05-21-2024 History of Present illness Narrative* Rosalie Flowers RT(R) - 09/29/2023 12:05 PM EDT Radiology [...] PATIENT PRESENTS WITH AN IMPLANTABLE OR ATTACHED REFINER OPERATOR: No RADIOLOGY DEPARTMENT: General X-ray: Exam(s) Completed: Pelvis X-Ray: sacroiliac joints PERIPHERAL IV DATA: Not applicable SIGNED BY: RT Raoul(R) September 29, 2023 12:05 PM documented in this encounterMercy Health St. [facility]05-21-2024 History of Present illness Narrative* Alem Cuadra MD - 09/29/2023 11:00 AM EDT Images from the original note were not included. Rheumatology Outpatient Clinic Date of Service: 09/29/2023 Patient: Karolina Nicole Medical Record: [id number] Primary Care Physician: No primary care provider on file. Referring Provider: SELF Last Rhe[facility]ology visit: [facility] Chief complaint: New Patient (Joint swelling, couple [...] repeat sed rate, CRP. Obtain CBC, CMP, RADHA, anti-CISCO, dsDNA, RF, CCP, CK, Due to [...] PROTEIN SEDIMENTATION RATE, WESTERGREN URINALYSIS, WITH MICROSCOPIC RADHA BY IFA SCREEN ANTI CISCO ID DNA AB DS + CONF BLD LUPUS ANTICOAG PL PROTEIN ELECTROPHORESIS SERUM W/INTERP PROTEIN / CREATININE RATIO melatonin/thean/lemon/david/lav (SLEEP CALM ORAL) Return in about 13 days (around 10/12/2023) for virtual. I spent a total of 60 minutes on the date of the service which included preparing to see the patient, [id number] patient care, completing clinical documentation, obtaining and/or reviewing separately obtained history, performing a medically appropriate examination, counseling and educating the pat ient/family/caregiver, and ordering medications, tests, or procedures. This note was partially generated with the assistance of [employer] voice recognition software. An attempt was made to correct any dictation errors however there may be some incorrect words, spellings, and punctuation. Alem Cuadra MD, [facility] Rheumatology documented in this encounterMercy Health St. [facility]04-16-2024 Miscellaneous Notes* Telephone Encounter - Charlotte Carpenter RN - 08/25/2023 8:02 AM EDT Reason for call: multiple symptoms; new symptom is neck swelling Outcome: patient will call her PCP locally for an appointment today. In addition, she would like tosee a human resources professional at [facility]. Conferenced to the Appointment Center for scheduling. [...] areas, fevers. Protocols used: Lymph Nodes - [id number] documented in this encounterMercy Health St. [facility]02-29-2024 Hospital Discharge instructions* Discharge Instructions* Chance Vera [...] Everywhere. * Managing acute pain at home (Ukrainian) documented in this encounterTHE [employer] SYSTEM Work Phone: [phone] NotePhysician Triage Note The patient was seen [...] role in this case. PLEASE SEE OTHER ATTENDING/RESIDENT/PHYSICIAN/PARIMUTUEL CLERK/PA NOTATION CASPER MillerThe [facility] [id number] Evaluation note* Encounter Date Diagnosis Assessment Notes [...] Pt understood and agreed to tx plan. [employer] Other 08-04-2023 Evaluation note* Encounter Date Diagnosis Assessment Notes Treatment Notes Treatment Clinical Notes Dec, Abnormality of left breast on screening mammogram (ICD-10 - R92.8) [employer] Other 07-20-2023 Evaluation note* Encounter Date Diagnosis Assessment Notes Treatment Notes Treatment Clinical Notes Nov, High C-reactive protein (ICD-10 - R79.82) Nov, High serum sodium (ICD-10 - R79.89) Nov, Polyarthralgia (ICD-10 - M25.50) [employer] Other 05-02-2023 Evaluation note* Encounter Date Diagnosis Assessment Notes Treatment Notes Treatment Clinical Notes September, Mild intermittent asthma without complication (ICD-10 - J45.20) [employer] Other 03-29-2023 Evaluation note* Encounter Date Diagnosis [...] with cardiology. Specialty notes reviewed as received. [employer] Other 03-10-2023 Evaluation note* Encounter Date Diagnosis Assessment Notes Treatment Notes Treatment Clinical Notes Jul, Dysuria (ICD-10 - R30.0) [employer] Other 03-10-2023 History of Present illness Narrative* Derrell Phipps MD - 07/18/2022 11:01 AM EST Images from the original note were not included. [facility] [place] [facility] Department of Cardiovascular Medicine SECTION [...] to the ED. They ruled out an ND and they discharged her home. Sheunderwent a [...] results of the EKG stress test from [facility] - spoke about all the stress in [...] INFORMATION: Derrell Phipps MD Cardiovascular Medicine Staff [facility] [address] [facility] [place] [address] documented in [address] encounterMer[address] Health St[address] [facility]03-09-2023 Evaluation note* Encounter Date Diagnosis Assessment Notes [...] Jul, Metabolic syndrome X (ICD-10 - E88.81) [employer] Other 02-28-2023 Evaluation note* Encounter Date Diagnosis Assessment Notes Treatment Notes Treatment Clinical Notes Jun, Acute cystitis with hematuria (ICD-10 - N30.01) [employer] Other 02-27-2023 Evaluation note* Encounter Date Diagnosis Assessment Notes Treatment Notes Treatment Clinical Notes Jun, Dysuria (ICD-10 - R30.0) [employer] Other 02-20-2023 Evaluation note* Encounter Date Diagnosis Assessment Notes Treatment Notes Treatment Clinical Notes Jun, Nonspecific ST-T wav e electrocardiographic changes (ICD-10 - R94.31) [employer] Other 02-16-2023 Evaluation note* Encounter Date Diagnosis [...] sent with her today. Report called to [facility] ER Dr. Curt Novoa. Will have patient follow back in the office after ER/hospital visit. Jun, ST segment changes o n electrocardiogram (ICD-10 - R94.31) See above treatment plan. [employer] Other 01-30-2023 Evaluation note* Encounter Date Diagnosis [...] evaluate. Further treatment pending results of testing. [employer] Other 01-09-2023 Evaluation note* Encounter Date Diagnosis [...] May, Metabolic syndrome X (ICD-10 - E88.81) [employer] Other 12-19-2022 Evaluation note* Encounter Date Diagnosis [...] verbalizes understanding and agrees to treatment plan. [employer] Other 12-14-2022 Evaluation note* Encounter Date Diagnosis [...] verbalizes understanding and agrees to treatment plan. [employer] Other 12-05-2022 Evaluation note* Encounter Date Diagnosis Assessment Notes Treatment Notes Treatment Clinical Notes Apr, Mild intermittent asthma without complication (ICD-10 - J45.20) [employer] Other 11-29-2022 Evaluation note* Encounter Date Diagnosis Assessment Notes Treatment Notes Treatment Clinical Notes Mar, Mild intermittent asthma without complication (ICD-10 - J45.20) [employer] Other 11-02-2022 Evaluation note* Encounter Date Diagnosis Assessment Notes Treatment Notes Treatment Clinical Notes Mar, Anxiety (ICD-10 - F41.9) [employer] Other 10-06-2022 Evaluation note* Encounter Date Diagnosis Assessment Notes Treatment Notes Treatment Clinical Notes Feb, Strep throat (ICD-10 - J02.0) Strep test positive. Take rx-Augmentin (treat her OM and strep throat both) as directed with food. Finish entire course of ATB. Continue symptomatic tx with OTC meds prn. Push fluids/rest. Reinforced good hand hygiene for infection control. 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 Immediate eval if warning s/s. Warning s/s [...] Strep test positive. See above treatment plan. [employer] Other 09-08-2022 Evaluation note* Encounter Date Diagnosis Assessment Notes Treatment Notes Treatment Clinical Notes Jan, Intracranial hypotension (ICD-10 - G96.810) Recent MRI done by application packaging specialist shows intracranial hypotension. Symptoms seem to [...] verbalizes understanding and agrees to treatment plan. [employer] Other 08-24-2022 Evaluation note* Encounter Date Diagnosis [...] Dec, Metabolic syndrome X (ICD-10 - E88.81) [employer] Other 07-14-2022 Evaluation note* Encounter Date Diagnosis Assessment Notes Treatment Notes Treatment Clinical Notes Nov, Anxiety (ICD-10 - F41.9) [employer] Other 07-12-2022 Evaluation note* Encounter Date Diagnosis [...] She acknowledges understanding and agrees to treatment. [employer] Other 07-06-2022 Evaluation note* Encounter Date Diagnosis [...] Nov, Metabolic syndrome X (ICD-10 - E88.81) [employer] Other 05-26-2022 Evaluation note* Encounter Date Diagnosis [...] patient set personal goal using given handout. [employer] Other 05-05-2022 Evaluation note* Encounter Date Diagnosis [...] September, Obesity (BMI 30.0-34.9) (ICD-10 - E66.9) [employer] Other 04-14-2022 Evaluation note* Encounter Date Diagnosis Assessment Notes Treatment Notes Treatment Clinical Notes Aug, Elevated fasting blood sugar (ICD-10 - R73.01) Hgba1c in the office today is normal. This was discussed with her while she was in the office today. [employer] Other 04-13-2022 Evaluation note* Encounter Date Diagnosis [...] have NO addictive medications prescribed to her. [employer] Other Discharge summary Author Cindy Winslow [facility] Note Date/Time September 30, 2024 10:31 am [facility] [address] [place] [address] Discharge Summary Signed Patient: Karolina Nicole MR#: [id number] : 1985 Acct:[id number] Age/Sex: 39 / F Adm Date: 5 Loc: 3T Room: [address] [place] [address]: Cindy Winslow MD Copies to: MD Cindy Meza MD~ Providers Date of Discharge: 09/30/24 Discharging Provider: Cindy Winslow Primary Care Provider: Yoan Ivey Consults: 09/28/24 22:37 Consult to Interventional Radiology Routine Comment: Consulting Provider: Mj Garcia Reason For Exam: LP-measure intracranial pressure and remove fluid Has Provider Been Notified: Yes Date of Notification: 09/29/24 Time of Notification: 07:15 09/29/24 08:24 Consult to Neurology Routine Comment: Consulting Provider: Janina Soria Reason For Exam: Intracranial hypertension Has Provider Been Notified: Yes Date of Notification: 09/29/24 Time of Notification: 08:59 Discharge Diagnosis (1) IIH (idiopathic intracranial hypertension): (2) History of renal stone: (3) Blurry vision, bilateral: Final Diagnosis Final Discharge Diagnosis: As listed above and others that are not listed Summary Hospital Course Hospital course: Mrs Nicole is a 39-year-old female with a known diagnosis of idiopathic intracranial pressure. Patient has been following up with [facility] up until last week when she was evaluatedthe ER and recommended to have an outpatient lumbar puncture and fluid removal. Subsequently patient developed worsening headaches, blurry vision and increased papilledema. She was instructed to report to the emergency room. She decided to come to [facility]'s emergency room due to previous satisfactory experience at [facility]. Patient was placed in observation. Blood work is unremarkable. No fever or chills. Patient responded to intravenous Toradol and Dilaudid. Patient had LP with fluid analysis and fluid removal. Pending final report frominterventional radiologist. Cell count and cultures are not back yet. Patient is requesting to be discharged home so she can attend her children graduation constitution party. She is not willing to stay any longer for any additional testing. Patient is feeling great. Patient will be instructed to resume taking Diamox as recommended by [facility] providers?follow-up with the [facility] intracranial hypertension clinic. Patient stated that her [facility] specialist instructed her to take Diamox 750 mg twice a day. No chills, no change in mental status, no no rigidity. No leukocytosis, no fever. Patient has few complex medical issues as listed above and others that are not listed. Patient is adamant about going home today so she can attend a graduation constitution party. She is not willing to stay any longer for any additional monitoring, diagnostic or therapeutic intervention. Her [facility] cell count and culture and pending however at this time, I do not have any legal justification to extend inpatient hospitalization against her will and desire to be dischargedhome. Patient however will require close and frequent monitoring as well as additional work-up, investigation and therapeutic intervention that could take place from this point on post discharge. That is to prevent relapse, decompensation, rehospitalization and other medical implications. I instructed patient to ask her primary care doctor to obtain [facility] record entirely to address abnormalities seen on labs and imagingthat I have and have not addressed during this hospitalization, follow-up on pending blood work, imaging and pathology is if available and to follow-up on needed medical care in the outpatient setting. Time Spent with Patient Time spent providing/coordinating discharge services (# min): 50 Discharge Plan Discharge Plan Patient Disposition: Home Activity: Ambulate as Tolerated Diet: Regular Additional Instructions: I may not have addressed or treated all of your medical illnesses or the abnormal blood work or imaging studies during this hospitalization. Please ask your primary care provider to obtain [facility] records entirely to follow up on all of the abnormal physical, laboratory, and imaging findings that I have not addressed. Please follow-up with your [facility] providers. Please ask the [facility] to obtain [facility] pending [facility] analysis and follow the recommendations for any additional needed investigation or treatment. Please return back to the emergency room or seek medical attention if your symptoms worsen or return. Discharging you from [facility] does not mean that your medical care ends here and now. You may still need additional monitoring, work up, investigation, and treatment plan to be handled from this point on by out patient providers including your primary care provider and specialists. For any medication question, please contact your retail pharmacist or your primary care provider. Thank you. Instructions: Know your Meds Stand Alone Forms: Work/School Release Form Prescriptions: New potassium chloride 10 mEq capsule, extended release 10 meq PO DAILY Qty: 30 0RF Continued albuterol sulfate [Ventolin HFA] 90 mcg/actuation HFA aerosol inhaler See Rx Instructions .ROUTE .COMPLEX Qty: 54 0RF Dose Instruction: INHALE 2 PUFFS BY MOUTH EVERY 4 HOURS NEEDED Rx Instructions: INHALE 2 PUFFS BY MOUTH EVERY 4 HOURS NEEDED montelukast 10 mg tablet See Rx Instructions .ROUTE .COMPLEX Qty: 90 0RF Dose Instruction: TAKE 1 TABLET BY MOUTH DAILY Rx Instructions: TAKE 1 TABLET BY MOUTH DAILY multivitamin Tablet 1 tab PO DAILY magnesium 200 mg tablet 420 mg PO DAILY dextroamphetamine-amphetamine 20 mg tablet 20 mg PO DAILY hydroxyzine HCl 50 mg tablet 50 mg PO QHS PRN (Reason: anxiety) cetirizine 10 mg tablet 10 mg PO QHS zinc gluconate 50 mg tablet 50 mg PO DAILY Changed acetazolamide 250 mg tablet 750 mg PO BID Qty: 1 0RF Rx Instructions: Takes 250 mg in am, 500 mg in pm Discontinued potassium 99 mg tablet 99 mg PO DAILY Follow Up: [facility] [Outside] (The office is closed. Please call Thursday to schedule a hospital follow up appointment) Yoan Ivey MD [Primary Care Provider] - 10/06/24 10:15 am (Hospital follow up appointment. Please call and reschedule if needed. ) [facility] [Other] (Follow-up with specialist at [facility]) Exam Physical Exam Vital Signs: Temp Pulse Resp BP Pulse Ox O2 Del Method 97.8 F 68 16 106/71 97 Room Air 09/30/24 07:35 09/30/24 07:35 09/30/24 07:35 09/30/24 07:35 09/30/24 07:35 09/30/24 07:35 Narrative: [pt is awake and alert. oriented to place, time and person HEENT: [place] conjunctiva and NL buccal mucosa Neck: Supple, no tenderness Endocrine: No Thyromegaly. Vascular: No JVD or carotid bruit. Lymphatic: No cervical lymphadenopathy. Chest: CTA no DTP. Heart RRR, no extra sound or murmur. Abd: Soft, no tenderness, no rebound and no rigidity. Increase abd girth therefore clinically I could not exclude the possibility of intra abd mass or organomegaly. LE: No cyanosis or clubbing, no varices or edema. Neuro: A A O. Nl speech, comprehension and attention. Nl and symetrical motor and tone examination through out. []] Diagnostic Studies Completed and Pending Studies Pending studies at discharge: 09/30/24 09:39 Cell Count&Differential,CSF Routine CSF Culture Timed 09/30/24 10:07 Glucose, Spinal Fluid Routine Total Protein, Spinal Fluid Routine Preliminary micro results at discharge 09/30/24 09:39 Aerobic Culture - Pending Cerebral Spinal Fluid Anaerobic Culture - Pending Gram Stain - Pending Labs on day of discharge: 09/29/24 10:27: Urine Color Light-yellow, Urine Appearance Clear, Urine pH 5.0, Ur Specific Donna 1.003, Urine Protein Negative, Urine Glucose (UA) Normal, Urine Ketones Negative, Urine Occult Blood Trace H, Urine Nitrite Negative, Urine Bilirubin Negative, Urine Urobilinogen Normal, Ur Leukocyte Esterase Negative, Urine RBC 1-2, Urine WBC 1-2, Ur Squamous Epith Cells N/A, Urine Bacteria Rare, Hyaline Casts None, Urine HCG, Qual Negative, Urine Opiates Screen Negative, Ur Barbiturates Screen Negative, Ur Phencyclidine Scrn Negative, Ur Amphetamines Screen Negative, U Benzodiazepines Scrn Negative, Urine Cocaine Screen Negative, U Marijuana (THC) Screen Negative Documented By: Cindy Winslow MD 09/30/24 1019 Signed By: <Electronically signed by Cindy Winslow MD> 09/30/24 1031 [facility] Work Phone: Evaluation noteNo InformationNort [employer] Other Evaluation noteNo assessment information available [facility] Work Phone: Evaluation note* Diagnosis Atypical chest pain- Primary Other chest pain [facility] Diagnosis Onset Date Resolution Status Fever acute Neck pain acute Stiff neck acute [facility] Work Phone: Evaluation note*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 PM >received fax, appt scheduled with Silvia Guevara 07/07/2022 03:13:02 PM >pt called [facility]. they stated they did not receive a referral and the pt herself called and made the appt. fax: [phone] Reason 01/16/22 @ Refer t o neurology for intracranial hypotension Diagnosis 1 Intracranial hypoten geronimo (G96.810) Referral Organization [facility] Family Lizet Cormier Referring Provider First Name Lisa Referring Provider Last Name Asad Referring Provider Specialty Nurse Pract itioner Referred Organization [facility] Referred Provider Janina Soria Referred Address [address],[place],[address] Referred Provider Specialty Neurology Referral Priority Routine Referral Appointment Date 2022-01-16 General Notes Silvia Messer 12/2021 09:02:58 AM >pt has appt today 01/16/22 at 1:15 pm in [place] at [facility]. pt aware. [facility] has copy of mri report Yaima Patrick 01/16/2022 09:44:26 AM >Referral received and sent p2p successful per log Additional Source Comments INFORMATION SOURCE (unrecogn ized section and content) DATE CREATED AUTHOR 11/03/2017 [facility] DATE CREATED AUTHOR AUTHOR'S ORGANIZ ATION 11/04/2017 [facility] DATE CREATED AUTHOR AUTHOR'S ORGANIZ ATION 06/30/2022 [facility] DATE CREATED AUTHOR AUTHOR'S ORGANIZ ATION 08/12/2022 [facility] DATE CREATED AUTHOR AUTHOR'S ORGANIZ ATION 07/15/2023 [facility] DATE CREATED AUTHOR AUTHOR'S ORGANIZ ATION 10/07/2023 [facility] DATE CREATED AUTHOR AUTHOR'S ORGANIZ ATION 07/04/2024 [facility] DATE CREATED AUTHOR AUTHOR'S ORGANIZ ATION 10/05/2024 [facility] DATE CREATED AUTHOR AUTHOR'S ORGANIZ ATION 10/21/2024 [facility] REASON FOR VISIT (unrecogniz ed section [...] IIH Specialty Diagnoses / Procedures Referred By Abdon addison Referred To Contact Ophthalmology Diagnoses IIH (idiopathic intracranial hypertension) Procedures CONSULT TO OPHTHALMOLOGY OFFICE/OUTPATIENT [facility] 60 [place] [address] [place] [phone] Referral ID Status Reason Start Date Expiration Date V isits Requested Visits Authorized [id number] Closed PCP Requested Referral 10/09/2023 10/08/2024 1 1 Reason Comments Headache Specialty Diagnoses / Procedures Referred By Contac t Referred To Contact Diagnoses IIH (idiopathic intracranial hypertension) BMI 32.0-32.9,adult Class 1 obesity due to excess calories with serious comorbidity and body mass index (BMI) of 32.0 to 32.9 in adult Procedures PROVIDER ORDERED FOLLOW UP OFFICE/OUTPATIENT [facility] [address] [place] [address] [place] [phone] Referral ID Status Reason Start Date Expiration Date V isits Requested Visits Authorized [id number] Closed PCP Requested Referral 01/09/2024 10/08/2024 1 1 Reason Comments Chronic Pain Specialty Diagnoses / Procedures Referred By Contac t Referred To Contact [facility] Diagnoses Chronic pain syndrome Procedures CONSULT TO [facility] (CHRONIC PAIN) OFFICE/OUTPATIENT [facility] 60 MINUTES Alem Cuadra MD [address] [place] [address] Referral ID Status Reason Start Date Expiration Date Visits Requested Visits Authorized [id number] Pending Review PCP Requested Referral 10/12/2023 10/11/2024 1 1 Reason Comments Jaw symptoms/complaints Has L jaw fx, wa s referred here to get CT scan. C/o jaw locking, and tenderness. Reason Comments Headache Specialty Diagnoses / Procedures Referred By Contac t Referred To Contact Diagnoses IIH (idiopathic intracranial hypertension) Procedures PROVIDER ORDERED FOLLOW UP OFFICE/OUTPATIENT [facility] 60 MINUTES Emilee Roca APRN.VAISHNAVI [address] [place] [address] Referral ID Status Reason Start Date Expiration Date V isits Requested Visits Authorized [id number] Closed PCP Requested Referral 04/02/2024 12/31/2024 1 1 Reason Comments Consult Low back pain Specialty Diagnoses / Procedures Referred By Contac t Referred To Contact [facility] Diagnoses Polyarthralgia Chronic pain syndrome Procedures CONSULT TO [facility] OFFICE/OUTPATIENT [facility] [address] [place] [address] [place] [address] Referral ID Status Reason Start Date Expiration Date V isits Requested Visits Authorized [id number] Closed PCP Requested Referral 02/24/2024 02/23/2025 1 1 Reason Comments Established Patient Reason Comments Follow Up Cervical pain Reason Comments Results Reason Comments IIH Evaluation Reason Comments Kidney Stones Flank Pain Back Pain Reason Comments Recheck Reason Comments New Patient Specialty Diagnoses / Procedures Referred By Contac t Referred To Contact Urology / UROLOGY Diagnoses Kidney stone IIH (idiopathic intracranial hypertension) Procedures CONSULT TO UROLOGY OFFICE/OUTPATIENT [facility] 60 MINUTES Angie Alvarado MD [address] [place] [address] Phone: tel: fax: Urology [address] [place] [address] Phone: tel: Referral ID Status Reason Start Date Expiration Date Visits Re quested Visits Authorized [id number] Closed 06/21/2024 05/10/2025 1 1 Reason Onset Date Comments Refill Request 07/04/2024 Reason Comments Pain Reason Comments Patient Update Reason Comments Headache IIH Reason Comments Paresthesia of bilateral legs Anterior t high numbness Specialty Diagnoses / Procedures Referred By Contac t Referred To Contact Neurology Diagnoses Paresthesia of bilateral legs Anterior thigh numbness Procedures CONSULT TO NEUROLOGY OFFICE/OUTPATIENT [facility] 60 MINUTES Cassandra Tinsley, STARCH FACTORY LABORER.PARIMUTUEL CLERK [address] [place] [address] Phone: tel: fax: Referral ID Status Reason Start Date Expiration Date V isits Requested Visits Authorized [id number] Closed PCP Requested Referral 07/18/2024 07/18/2025 1 1 Reason Comments Migraine Reason Comments Follow Up Headache Reason Comments Migraine Reason Comments Papilledema Follow Up Reason Comments Daily Headache Established Patient Reason Comments Reason Comments Infusion Headache Specialty Diagnoses / Procedures Referred By Contac t Referred To Contact Neurology / HEADACHE Diagnoses DHE 3 Procedures DHE Self Neurology [address] [place] [address] Phone: tel: fax: Referral ID Status Reason Start Date Expiration Date V isits Requested Visits Authorized [id number] Authorized 10/12/2024 05/10/2025 99 [phone] Reason Comments Received Outside Medical Records Care Teams (unrecognized sec tion and content) Team Status: Active Member Role Status Dates Yoan Ivey MD Primary Care Provider Active Team Status: Inactive Member Role Status Dates Yoan Ivey MD Primary Care Provider Active Start: September 28, 2024 End: September 30, 2024 Carissa Mejia APRN Emergency Provider Active Start: September 28, 2024 End: September 30, 2024 Sis Verma DO Admit Provider Active Start: September 28, 2024 End: September 30, 2024 Cindy Winslow MD Attending Provider Active Sta rt: September 28, 2024 End: September 30, 2024 Janina Soria DO Other Provider Active Start: September 28, 2024 End: September 30, 2024 Mj Garcia MD Other Provider Active Start: 2024 End: September 30, 2024 Team Status: Active Member Role Status Dates PHYSICIAN NO FAMILY Primary Care Provider Active Start: April 21, 2024 Tavo Marie MD Attending Provider Active Sta rt: April 21, 2024 Team Status: Inactive Member Role Status Dates PHYSICIAN NO FAMILY Primary Care Provider Active Start: May 23, 2024 End: May 23, 2024 Florencio Guevara Jr, DO Attending Provider Active S tart: May 23, 2024 End: May 23, 2024 Team Status: Inactive Member Role Status Dates Yoan Ivey MD Primary Care Provide r, Attending Provider Active Start: June 27, 2024 End: June 27, 2024 Team Status: Active Member Role Status Dates PHYSICIAN NO FAMILY Primary Care Provider Active Team Status: Inactive Member Role Status Dates Lisa Johns DNP Primary Care Provid er, Attending Provider Active Start: January 29, 2024 End: January 29, 2024 Team Status: Inactive Member Role Status Dates Eli Antony PROFESSIONAL ORGANIZER- Emergency Provider Active Start: February 08, 2024 [...] Lisa Johns DNP Primary Care Provider Active Kat Sosa DO Emergency Provider Active Team Status: Inactive [...] June 09, 2023 End: June 10, 2023 Kat Sosa DO Emergency Provider Active St art: June 09, 2023 End: June 10, 2023 Team Status: Inactive Member Role Status Dates Lisa Johns DNP Primary Care Provider Active Start: July 20, 2023 End: July 20, 2023 Vanessa Duran DO Attending Provider Active Start : July 20, 2023 End: July 20, 2023 Team Status: Inactive Member Role Status Dates Lisa Johns DNP Primary Care Provider Active Start: July 29, 2023 End: July 29, 2023 Vanessa Duran DO Attending Provider Active Start : [...] 25, 2023 End: August 25, 2023 Eli Antnoy [facility] Emergency Provider Active Start: August 25, 2023 End: August 25, 2023 Team Status: Active Member Role Status Dates Lisa Johns DNP Primary Care Provider Active Start: August 25, 2023 Susie Min LPN Attending Provider Active Sta rt: August 25, 2023 Health Club Attendant Relationship Specialty Start Date End Date Yoan Ivey MD [address] [place] [address] PCP - General Family Medicine 06/06/24 Health Club Attendant Relationship Specialty Start Date End Date Yoan Ivey MD [address] [place] [address] PCP - General Family Medicine 06/06/24 Health Club Attendant Relationship Specialty Start Date End Date Yoan Ivey MD [address] [place] [address] PCP - General Family Medicine 06/06/24 Health Club Attendant Relationship Specialty Start Date End Date Yoan Ivey MD [address] [place] [address] PCP - General Family Medicine 06/06/24 Health Club Attendant Relationship Specialty Start Date End Date Yoan Ivey MD [address] [place] [address] PCP - General Family Medicine 06/06/24 Health Club Attendant Relationship Specialty Start Date End Date Yoan Ivey MD [address] [place] [address] PCP - General Family Medicine 06/06/24 Health Club Attendant Relationship Specialty Start Date End Date Yoan Ivey MD [address] [place] [address] PCP - General Family Medicine 06/06/24 Health Club Attendant Relationship Specialty Start Date End Date Yoan Ivey MD [address] [place] [address] PCP - General Family Medicine 06/06/24 Health Club Attendant Relationship Specialty Start Date End Date Yoan Ivey MD [address] [place] [address] PCP - General Family Medicine 06/06/24 Health Club Attendant Relationship Specialty Start Date End Date Yoan Ivey MD [address] [place] [id number] PCP - General Family Medicine 06/06/24 Health Club Attendant Relationship Specialty Start Date End Date Yoan Ivey MD [address] [place] [address] PCP - General Family Medicine 06/06/24 Health Club Attendant Relationship Specialty Start Date End Date Yoan Ivey MD [address] [place] [address] PCP - General Family Medicine 06/06/24 Health Club Attendant Relationship Specialty Start Date End Date Yoan Ivey MD [address] [place] [address] PCP - General Family Medicine 06/06/24 Health Club Attendant Relationship Specialty Start Date End Date Yoan Ivey MD [address] [facility] [place] [address] PCP - General Family Medicine 06/06/24 Health Club Attendant Relationship Specialty Start Date End Date Yoan Ivey MD [address] [facility] [place] [address] PCP - General Family Medicine 06/06/24 Health Club Attendant Relationship Specialty Start Date End Date Yoan Ivey MD [address] [facility] [place] [address] PCP - General Family Medicine 06/06/24 Health Club Attendant Relationship Specialty Start Date End Date Yoan Ivey MD [address] [facility] [place] [address] PCP - General Family Medicine 06/06/24 Health Club Attendant Relationship Specialty Start Date End Date Yoan Ivey MD [address] [facility] [place] [address] PCP - General Family Medicine 06/06/24 Health Club Attendant Relationship Specialty Start Date End Date Yoan Ivey MD [address] [facility] [place] [address] PCP - General Family Medicine 06/06/24 Health Club Attendant Relationship Specialty Start Date End Date Yoan Ivey MD [address] [facility] [place] [address] PCP - General Family Medicine 06/06/24 Health Club Attendant Relationship Specialty Start Date End Date Yoan Ivey MD [address] [facility] [place] [address] PCP - General Family Medicine 06/06/24 Health Club Attendant Relationship Specialty Start Date End Date Yoan Ivey MD [address] [place] [address] PCP - General Family Medicine 06/06/24 Team Status: Inactive Member Role Status Dates Shahid Ritter MD Emergency Provider Active Star t: October 04, 2024 End: October 04, 2024 Yoan Ivey MD Primary Care Provider Active Start: October 04, 2024 End: October 04, 2024 Health Club Attendant Relationship Specialty Start Date End Date Yoan Ivey MD [address] [id number] PCP - [facility] Family Medicine 06/06/24 Health Club Attendant Relationship Specialty Start Date End Date Yoan Ivey MD [address] [place] [address] PCP - General Family Medicine 06/06/24 [facility] Att[facility] Relationship Specialty Start Date End Date Yoan Ivey MD [address] [place] [address] PCP - General Family Medicine 06/06/24 [facility] Attendant Relationship Specialty Start Date End Date Yoan Ivey MD [address] [place] [id number] PCP - General Family Medicine 06/06/24 Goals [...] or prosecute any alcohol or drug abuse patient.[facility] HospitalIn the event this information is protected by the Federal Confidentiality of Alcohol and Drug Abuse Patient Records regulations: The Federal rules restrict any use of the information to criminally investigate or prosecute any alcohol or drug abuse patient.[facility] HospitalIn the event this information is protected by the Federal Confidentiality of Alcohol and Drug Abuse Patient Records regulations: The Federal rules restrict any use of the information to criminally investigate or prosecute any alcohol or drug abuse patient.[facility] HospitalIn the event this information is protected by the Federal Confidentiality of Alcohol and Drug Abuse Patient Records regulations: The Federal rules restrict any use of the information to criminally investigate or prosecute any alcohol or drug abuse patient.[facility] HospitalIn the event this information is protected by the Federal Confidentiality of Alcohol and Drug Abuse Patient Records regulations: The Federal rules restrict any use of the information to criminally investigate or prosecute any alcohol or drug abuse patient.[facility] HospitalIn the event this information is protected by the Federal Confidentiality of Alcohol and Drug Abuse Patient Records regulations: The Federal rules restrict any use of the information to criminally investigate or prosecute any alcohol or drug abuse patient.[facility] HospitalIn the event this information is protected by the Federal Confidentiality of Alcohol and Drug Abuse Patient Records regulations: The Federal rules restrict any use of the information to criminally investigate or prosecute any alcohol or drug abuse patient.[facility] HospitalIn the event this information is protected by the Federal Confidentiality of Alcohol and Drug Abuse Patient Records regulations: The Federal rules restrict any use of the information to criminally investigate or prosecute any alcohol or drug abuse patient.[facility] HospitalIn the event this information is protected by the Federal Confidentiality of Alcohol and Drug Abuse Patient Records regulations: The Federal rules restrict any use of the information to criminally investigate or prosecute any alcohol or drug abuse patient.[facility] HospitalIn the event this information is protected by the Federal Confidentiality of Alcohol and Drug Abuse Patient Records regulations: The Federal rules restrict any use of the information to criminally investigate or prosecute any alcohol or drug abuse patient.[facility] HospitalIn the event this information is protected by the Federal Confidentiality of Alcohol and Drug Abuse Patient Records regulations: The Federal rules restrict any use of the information to criminally investigate or prosecute any alcohol or drug abuse patient.[facility] HospitalIn the event this information is protected by the Federal Confidentiality of Alcohol and Drug Abuse Patient Records regulations: The Federal rules restrict any use of the information to criminally investigate or prosecute any alcohol or drug abuse patient.[facility] HospitalIn the event this information is protected by the Federal Confidentiality of Alcohol and Drug Abuse Patient Records regulations: The Federal rules restrict any use of the information to criminally investigate or prosecute any alcohol or drug abuse patient.[facility] HospitalIn the event this information is protected by the Federal Confidentiality of Alcohol and Drug Abuse Patient Records regulations: The Federal rules restrict any use of the information to criminally investigate or prosecute any alcohol or drug abuse patient.[facility] HospitalIn the event this information is protected by the Federal Confidentiality of Alcohol and Drug Abuse Patient Records regulations: The Federal rules restrict any use of the information to criminally investigate or prosecute any alcohol or drug abuse patient.[facility] HospitalIn the event this information is protected by the Federal Confidentiality of Alcohol and Drug Abuse Patient Records regulations: The Federal rules restrict any use of the information to criminally investigate or prosecute any alcohol or drug abuse patient.[facility] HospitalIn the event this information is protected by the Federal Confidentiality of Alcohol and Drug Abuse Patient Records regulations: The Federal rules restrict any use of the information to criminally investigate or prosecute any alcohol or drug abuse patient.[facility] HospitalIn the event this information is protected by the Federal Confidentiality of Alcohol and Drug Abuse Patient Records regulations: The Federal rules restrict any use of the information to criminally investigate or prosecute any alcohol or drug abuse patient.[facility] HospitalIn the event this information is protected by the Federal Confidentiality of Alcohol and Drug Abuse Patient Records regulations: The Federal rules restrict any use of the information to criminally investigate or prosecute any alcohol or drug abuse patient.[facility] HospitalIn the event this information is protected by the Federal Confidentiality of Alcohol and Drug Abuse Patient Records regulations: The Federal rules restrict any use of the information to criminally investigate or prosecute any alcohol or drug abuse patient.[facility] HospitalIn the event this information is protected by the Federal Confidentiality of Alcohol and Drug Abuse Patient Records regulations: The Federal rules restrict any use of the information to criminally investigate or prosecute any alcohol or drug abuse patient.[facility] HospitalIn the event this information is protected by the Federal Confidentiality of Alcohol and Drug Abuse Patient Records regulations: The Federal rules restrict any use of the information to criminally investigate or prosecute any alcohol or drug abuse patient.[facility] HospitalIn the event this information is protected by the Federal Confidentiality of Alcohol and Drug Abuse Patient Records regulations: The Federal rules restrict any use of the information to criminally investigate or prosecute any alcohol or drug abuse patient.[facility] HospitalIn the event this information is protected by the Federal Confidentiality of Alcohol and Drug Abuse Patient Records regulations: The Federal rules restrict any use of the information to criminally investigate or prosecute any alcohol or drug abuse patient.[facility] HospitalIn the event this information is protected by the Federal Confidentiality of Alcohol and Drug Abuse Patient Records regulations: The Federal rules restrict any use of the information to criminally investigate or prosecute any alcohol or drug abuse patient.[facility] HospitalIn the event this information is protected by the Federal Confidentiality of Alcohol and Drug Abuse Patient Records regulations: The Federal rules restrict any use of the information to criminally investigate or prosecute any alcohol or drug abuse patient.[facility] HospitalIn the event this information is protected by the Federal Confidentiality of Alcohol and Drug Abuse Patient Records regulations: The Federal rules restrict any use of the information to criminally investigate or prosecute any alcohol or drug abuse patient.[facility] HospitalIn the event this information is protected by the Federal Confidentiality of Alcohol and Drug Abuse Patient Records regulations: The Federal rules restrict any use of the information to criminally investigate or prosecute any alcohol or drug abuse patient.[facility] HospitalIn the event this information is protected by the Federal Confidentiality of Alcohol and Drug Abuse Patient Records regulations: The Federal rules restrict any use of the information to criminally investigate or prosecute any alcohol or drug abuse patient.[facility] HospitalIn the event this information is protected by the Federal Confidentiality of Alcohol and Drug Abuse Patient Records regulations: The Federal rules restrict any use of the information to criminally investigate or prosecute any alcohol or drug abuse patient.[facility] HospitalIn the event this information is protected by the Federal Confidentiality of Alcohol and Drug Abuse Patient Records regulations: The Federal rules restrict any use of the information to criminally investigate or prosecute any alcohol or drug abuse patient.[facility] HospitalIn the event this information is protected by the Federal Confidentiality of Alcohol and Drug Abuse Patient Records regulations: The Federal rules restrict any use of the information to criminally investigate or prosecute any alcohol or drug abuse patient.[facility] HospitalIn the event this information is protected by the Federal Confidentiality of Alcohol and Drug Abuse Patient Records regulations: The Federal rules restrict any use of the information to criminally investigate or prosecute any alcohol or drug abuse patient.[facility] HospitalIn the event this information is protected by the Federal Confidentiality of Alcohol and Drug Abuse Patient Records regulations: The Federal rules restrict any use of the information to criminally investigate or prosecute any alcohol or drug abuse patient.[facility] HospitalIn the event this information is protected by the Federal Confidentiality of Alcohol and Drug Abuse Patient Records regulations: The Federal rules restrict any use of the information to criminally investigate or prosecute any alcohol or drug abuse patient.[facility] HospitalIn the event this information is protected by the Federal Confidentiality of Alcohol and Drug Abuse Patient Records regulations: The Federal rules restrict any use of the information to criminally investigate or prosecute any alcohol or drug abuse patient.[facility] HospitalIn the event this information is protected by the Federal Confidentiality of Alcohol and Drug Abuse Patient Records regulations: The Federal rules restrict any use of the information to criminally investigate or prosecute any alcohol or drug abuse patient.[facility] HospitalIn the event this information is protected by the Federal Confidentiality of Alcohol and Drug Abuse Patient Records regulations: The Federal rules restrict any use of the information to criminally investigate or prosecute any alcohol or drug abuse patient.[facility] HospitalIn the event this information is protected by the Federal Confidentiality of Alcohol and Drug Abuse Patient Records regulations: The Federal rules restrict any use of the information to criminally investigate or prosecute any alcohol or drug abuse patient.[facility] HospitalIn the event this information is protected by the Federal Confidentiality of Alcohol and Drug Abuse Patient Records regulations: The Federal rules restrict any use of the information to criminally investigate or prosecute any alcohol or drug abuse patient.[facility] HospitalIn the event this information is protected by the Federal Confidentiality of Alcohol and Drug Abuse Patient Records regulations: The Federal rules restrict any use of the information to criminally investigate or prosecute any alcohol or drug abuse patient.[facility] HospitalIn the event this information is protected by the Federal Confidentiality of Alcohol and Drug Abuse Patient Records regulations: The Federal rules restrict any use of the information to criminally investigate or prosecute any alcohol or drug abuse patient.[facility] HospitalIn the event this information is protected by the Federal Confidentiality of Alcohol and Drug Abuse Patient Records regulations: The Federal rules restrict any use of the information to criminally investigate or prosecute any alcohol or drug abuse patient.[facility] HospitalIn the event this information is protected by the Federal Confidentiality of Alcohol and Drug Abuse Patient Records regulations: The Federal rules restrict any use of the information to criminally investigate or prosecute any alcohol or drug abuse patient.[facility] HospitalIn the event this information is protected by the Federal Confidentiality of Alcohol and Drug Abuse Patient Records regulations: The Federal rules restrict any use of the information to criminally investigate or prosecute any alcohol or drug abuse patient.[facility] HospitalIn the event this information is protected by the Federal Confidentiality of Alcohol and Drug Abuse Patient Records regulations: The Federal rules restrict any use of the information to criminally investigate or prosecute any alcohol or drug abuse patient.[facility] HospitalIn the event this information is protected by the Federal Confidentiality of Alcohol and Drug Abuse Patient Records regulations: The Federal rules restrict any use of the information to criminally investigate or prosecute any alcohol or drug abuse patient.[facility] HospitalIn the event this information is protected by the Federal Confidentiality of Alcohol and Drug Abuse Patient Records regulations: The Federal rules restrict any use of the information to criminally investigate or prosecute any alcohol or drug abuse patient.[facility] HospitalIn the event this information is protected by the Federal Confidentiality of Alcohol and Drug Abuse Patient Records regulations: The Federal rules restrict any use of the information to criminally investigate or prosecute any alcohol or drug abuse patient.[facility] HospitalIn the event this information is protected by the Federal Confidentiality of Alcohol and Drug Abuse Patient Records regulations: The Federal rules restrict any use of the information to criminally investigate or prosecute any alcohol or drug abuse patient.[facility] HospitalIn the event this information is protected by the Federal Confidentiality of Alcohol and Drug Abuse Patient Records regulations: The Federal rules restrict any use of the information to criminally investigate or prosecute any alcohol or drug abuse patient.[facility] HospitalIn the event this information is protected by the Federal Confidentiality of Alcohol and Drug Abuse Patient Records regulations: The Federal rules restrict any use of the information to criminally investigate or prosecute any alcohol or drug abuse patient.[facility] HospitalIn the event this information is protected by the Federal Confidentiality of Alcohol and Drug Abuse Patient Records regulations: The Federal rules restrict any use of the information to criminally investigate or prosecute any alcohol or drug abuse patient.[facility] HospitalIn the event this information is protected by the Federal Confidentiality of Alcohol and Drug Abuse Patient Records regulations: The Federal rules restrict any use of the information to criminally investigate or prosecute any alcohol or drug abuse patient.[facility] HospitalIn the event this information is protected by the Federal Confidentiality of Alcohol and Drug Abuse Patient Records regulations: The Federal rules restrict any use of the information to criminally investigate or prosecute any alcohol or drug abuse patient.[facility] HospitalIn the event this information is protected by the Federal Confidentiality of Alcohol and Drug Abuse Patient Records regulations: The Federal rules restrict any use of the information to criminally investigate or prosecute any alcohol or drug abuse patient.[facility] HospitalIn the event this information is protected by the Federal Confidentiality of Alcohol and Drug Abuse Patient Records regulations: The Federal rules restrict any use of the information to criminally investigate or prosecute any alcohol or drug abuse patient.[facility] HospitalIn the event this information is protected by the Federal Confidentiality of Alcohol and Drug Abuse Patient Records regulations: The Federal rules restrict any use of the information to criminally investigate or prosecute any alcohol or drug abuse patient.[facility] HospitalIn the event this information is protected by the Federal Confidentiality of Alcohol and Drug Abuse Patient Records regulations: The Federal rules restrict any use of the information to criminally investigate or prosecute any alcohol or drug abuse patient.[facility] HospitalIn the event this information is protected by the Federal Confidentiality of Alcohol and Drug Abuse Patient Records regulations: The Federal rules restrict any use of the information to criminally investigate or prosecute any alcohol or drug abuse patient.[facility] HospitalIn the event this information is protected by the Federal Confidentiality of Alcohol and Drug Abuse Patient Records regulations: The Federal rules restrict any use of the information to criminally investigate or prosecute any alcohol or drug abuse patient.[facility] HospitalIn the event this information is protected by the Federal Confidentiality of Alcohol and Drug Abuse Patient Records regulations: The Federal rules restrict any use of the information to criminally investigate or prosecute any alcohol or drug abuse patient.[facility] HospitalIn the event this information is protected by the Federal Confidentiality of Alcohol and Drug Abuse Patient Records regulations: The Federal rules restrict any use of the information to criminally investigate or prosecute any alcohol or drug abuse patient.[facility] Scheduled Active and Recently Administ ered Medications (unrecognized section and content) Medication Order 07/07/2023 07/08/2023 07/09/2023 iohexol (OMNIPAQUE) 350 MG/ML injection (COMPLETED) 75 mL, Intravenous Push, Once at Radiology exam, 1 dose, Starting on Antonette 07/09/23 at 1822, Until Antonette 07/09/23 at 1818, Imaging Protocol Orders [id number] (Bolus given - Provider: Cassandra Carrillo) FOR [...] BE BASED ON THE PRIMARY CLINICAL RECORDS. [facility] provides no warranty or guarantee of the accuracy or completeness of information in this document.
[2024-10-25 08:07] LABS: Basophils Percent Auto 0.5 % (0.2-2.0); Eosinophils Absolute Auto 0.3 10^3/uL (0.0-0.7); Eosinophils Percent Auto 4.3 % (0.9-7.0); Hematocrit 37.4 % (36.0-48.0); Hemoglobin 13.2 g/dL (12.0-16.0); Immature Granulocytes Abs Auto 0.01 10^3/uL (0.00-0.03); Immature Granulocytes Pct Auto 0.2 % (0.0-0.5); Lymphocytes Absolute Auto 3.2 10^3/uL (1.2-3.8); Mean Corpuscular HGB Conc 35.3 g/dL (29.9-35.2); Mean Corpuscular Hemoglobin 31.8 pg (26.7-34.0); Mean Corpuscular Volume 90.1 fL (81.0-99.0); Mean Platelet Volume 9.8 fL (9.5-13.5); Monocytes Absolute Auto 0.5 10^3/uL (0.3-0.8); Monocytes Percent Auto 7.8 % (1.7-12.0); Neutrophils Absolute Auto 1.9 10^3/uL (1.4-6.5); Neutrophils Percent Auto 32.2 % (43.0-75.0); Platelet Count 326 10^3/uL (150-450); Red Blood Count 4.15 10^6/uL (4.20-5.40); Red Cell Distribution Width 12.3 % (11.0-15.0); White Blood Count 5.9 10^3/uL (4.0-11.0)
[2024-10-25 08:16] LABS: Erythrocyte Sedimentation Rate 3 mm/hr (<=20)
[2024-10-25 09:03] LABS: Alanine Aminotransferase 28 U/L (14-59); Albumin Globulin Ratio 1.2; Albumin Level 3.7 g/dL (3.4-5.0); Alkaline Phosphatase 79 U/L (46-116); Anion Gap 16.8; Aspartate Amino Transferase 21 U/L (15-37); BUN Creatinine Ratio 12.1; Bilirubin Total 0.3 mg/dL (0.2-1.0); Calcium 9.2 mg/dL (8.5-10.1); Carbon Dioxide 22.7 mmol/L (21.0-32.0); Chloride 108 mmol/L (98-107); Estimated GFR (African America >60 (>=60 mL/min/1.73m^2); Estimated GFR (Non-African Ame >60 (>=60 mL/min/1.73m^2); Glucose 94 mg/dL (74-106); Potassium 3.5 mmol/L (3.5-5.1); Sodium 144 mmol/L (136-145); Total Protein 6.7 g/dL (6.4-8.2)
== END 2024-10-25 07:33 | disposition home or self-care (01) ==
LOC: LAB 07:33
PROVIDERS: PCP Family Medicine; Visit Provider Family Medicine
DX: G93.2 Benign intracranial hypertension (principal)
CPT/HCPCS: 36415; 80053; 85025; 85652; 87040

== ENCOUNTER 2025-03-03 12:42 | Outpatient (RCR) | payer MEDICAID, SELFPAY ==
[2025-03-03 13:26] LABS: Hematocrit 39.1 % (36.0-48.0); Hemoglobin 14.0 g/dL (12.0-16.0); Immature Granulocytes Abs Auto 0.01 10^3/uL (0.00-0.03); Immature Granulocytes Pct Auto 0.2 % (0.0-0.5); Lymphocytes Absolute Auto 3.3 10^3/uL (1.2-3.8); Mean Corpuscular HGB Conc 35.8 g/dL (29.9-35.2); Mean Corpuscular Hemoglobin 31.7 pg (26.7-34.0); Mean Corpuscular Volume 88.5 fL (81.0-99.0); Platelet Count 302 10^3/uL (150-450); Red Blood Count 4.42 10^6/uL (4.20-5.40); White Blood Count 6.7 10^3/uL (4.0-11.0)
[2025-03-03 13:44] LABS: Alanine Aminotransferase 98 U/L (14-59); Albumin Globulin Ratio 1.3; Albumin Level 3.9 g/dL (3.4-5.0); Alkaline Phosphatase 94 U/L (46-116); Anion Gap 15.2; Aspartate Amino Transferase 49 U/L (15-37); Blood Urea Nitrogen 10.0 mg/dL (7.0-18.0); Calcium 9.2 mg/dL (8.5-10.1); Carbon Dioxide 25.6 mmol/L (21.0-32.0); Chloride 101 mmol/L (98-107); Estimated GFR (African America >60 (>=60 mL/min/1.73m^2); Estimated GFR (Non-African Ame >60 (>=60 mL/min/1.73m^2); Globulin 2.9 g/dL; Glucose 106 mg/dL (74-106); Potassium 3.8 mmol/L (3.5-5.1); Sodium 138 mmol/L (136-145); Total Protein 6.8 g/dL (6.4-8.2)
== END 2025-03-13 12:01 | disposition home or self-care (01) ==
LOC: LAB 12:42
PROVIDERS: PCP Family Medicine; Visit Provider Family Medicine
DX: H70.90 Unspecified mastoiditis, unspecified ear (principal); Z51.81 Encounter for therapeutic drug level monitoring
CPT/HCPCS: 36415; 80053; 85025

== ENCOUNTER 2025-03-03 12:44 | Outpatient (OUT) | payer MEDICAID, SELFPAY ==
--- OUTSIDE RECORDS SUMMARY | 2024-08-26 06:30 | XMS_ITS ---
Author Organization [facility] in [place] Address [address] [place] [address] Care Team Providers Care Patient Access Director Name Role Phone Agapito Morel Primary Care Provider [phone] REASON FOR VISIT 6monf/u Encounters Encounter Location Date Provider Diagnosis [facility] [address] [place] [address] 08/26/2024 Agapito Morel Plan Of Treatment Next Appt Details Provider Name:Agapito Morel, 11:00:00 AM, [address] [place], [address], Progress Notes * KYUNGKarolina WERNERDOB: 6 (39 yo F)Acc No.[id number]:08/26/2024 UNLOCKED PROGRESS NOTE Progress Note Patient: Karolina SPAULDING :?Yoan Morel ([facility]), MDDOB:1985???Age: 39 Y???Sex:FemaleDate:08/26/2024Phone:[phone] [id number] Subjective: * Chief Complaints: * 1 . 6monf/u. * Medical History: Objective: * Vitals: Assessment: Plan: * Treatment: * * Electronic signature of Agapito Morel MD, [id number] on 03/03/2025 at 10:07 AM EDT Sign off status: PendingVisit Status:?OFF CANC (OFFICE CANCEL) * Provider: Yoan Morel ([facility])MD Date: 0 08/26/2024 Generated for Printing/Faxing/eTransmitting on:?03/03/2025 10:07 AM EDT
--- OUTSIDE RECORDS SUMMARY | 2025-02-21 19:45 | XMS_ITS ---
Author Organization [facility] [place] Address [address] [place] [address] Care Team Providers Care Supervisor Rose Grading Name Role Phone Agapito Morel Primary Care Provider Reason For Referral Diagnosis 1 Ear pain (H92.09) Referral Organization [facility] Referring Provider First Name Agapito Referring Provider Last Name Maria Teresa Referring Provider Speciality Family Med avelino Referred Provider Bairon Alicea Referred Provider Specialty Otolaryngolo gy Referral Priority Routine REASON FOR VISIT CSF flow results Medications Medication SIG (Take, Route, Frequency, Duration) Notes Start Date End Date Status Amoxicillin-Pot Clavulanate 875-125 MG 1 tablet Orally Twice a day; Duration: 30 days 02/22/2025tive Encounters Encounter Location Date Provider Diagnosis [facility] [address] [place] [id number] 02/21/2025 Agapito Morel Ear pain H92.09 Assessments Encounter Date Diagnosis (ICD Code) Assessment Notes Treatment Notes Treatment Clinical Notes Section Notes 02/21/2025 Ear pain (ICD-10 - H92.09) Plan Of Treatment Medication Medication Name Sig Start Date Stop Date Notes Amoxicillin-Pot Clavulanate 875-125 MG 1 tablet Orally Twice a day; Duration: 30 days 02/22/2025 Referrals Referral Date Details 02/22/2025 02/22/2025, Bairon remy Progress Notes * Karolina MCDONALDDOB: 6 (39 yo F)Acc No.[id number]:02/21/2025 Patient:?Karolina MCDONALD :1985???Age:39 Y???Sex:FemalePhone:[phone] Address:[facility] [address] [place], [address] * Refills Start Amoxicillin-Pot Clavulanate Tablet, 875-125 MG, Orally, 60 Tablet, 1 tablet, Twice a day, 30 days, Refills=0 Subjective: * Chief Complaints: * C SF flow results * Medical History: * Surgical History: * Hospitalization/Major Diagno stic Procedure: * Medications: Objective: * Vitals: * Physical Examination: ??? Assessment: * Assessment: 1.?Ear pain - H92.09 (Primary)??? Plan: * Treatment: ? Referral To:Bairon Alicea??Otolaryngology ?Reason: 2.?Others? Start Amoxicillin-Pot Clavulanate Tablet, 875-125 MG, 1 tablet, Orally, Twice a day, 30 days, 60 Tablet, Refills 0.?? * Procedure Codes: * true * Date:?Generated for Printing/Faxing/eTransmitting on:?03/03/2025 12:48 PM EDT Consultation Request Notes Referral Date Referring Provider Referred Provider Not sarah 02/22/2025 Agapito Morel Paul
--- OUTSIDE RECORDS SUMMARY | 2025-02-21 19:46 | XMS_ITS | Continuity of Care Document ---
Author Organization [facility] Address [address] [place] [address] Phone Care Team Providers Care Amortization Schedule Clerk Name Role Phone Yoan Morel MD Primary Care Provider [phone] Crispin Cortés MD Emergency Provider Care Teams Patient Care Team Team Status: Active Member Role Status Dates Yoan Morel MD Primary Care Provider Active Patient Care Team Team Status: Inactive Member Role Status Dates Yoan Moerl MD Primary Care Provider Active Start: February 21, 2025 End: February 21, 2025Micjosh Cortés MDEmergency ProviderActiveStart: February 21, 2025 End: February 21, 2025 Chief Complaint and Reason for Visit Chief Complaint Admit Date Bilat Ear Pressure February 21, 2025 1 0:33pm Allergies, Adverse Reactions, Alerts Allergen Type Severity Reaction Last Updated Verified Status latex Allergy Unknown Rash February 21, 2025 10:51pm Yes Active nickel Allergy Unknown Rash February 21, 2025 10:51pm Yes Active oxycodone Allergy Unknown Rash, HIVES February 21, 2025 10:51pm Yes Active Sulfa (Sulfonamide Antibiotics) Allergy Unknown Rash February 21, 2025 10:51pm Yes Active morphine Allergy Unknown Swelling of Lip/Tongue/Throat February 21, 2025 10:51pm Yes Active silk tape Allergy Unknown Rash February 12, 2022 10:50pm No Active Social History Smoking Status Status Start Date End Date Date of Observa tion Never smoked tobacco (finding) February 21, 2025 11:34pm Observation Status Observation Response Date of Response Legal Sex [facility] (finding) [facility] Family [facility] Relationship Condition Age at Onset Recorded Date/T sylvester father Bipolar disorder Unknown DeceasedUnknownSuicideUnknownmotherDeceasedUnknownHypertensionUnknownMalignant neoplasm of lungUnknownArthritisUnknownsisterObesityUnknownDiabetes mellitus UnknownHypertensionUnknownAbnormal visionUnknownbrotherBipolar disorderUnknown daughterHistory of impaired glucose toleranceUnknownLearning disabilityUnknown AsthmaUnknown Problems Active Problems Medical Problem Onset Date Status Comments Exercise counseling Unknown Active PTSD (post-traumatic stress disorder)UnknownActiveIIH (idiopathic intracranial hypertension)UnknownActiveIIH (idiopathic intracranial hypertension)Unknown ActiveOverweight (BMI 25.0-29.9)UnknownActiveDietary surveillance and counseling UnknownActiveFatty liverUnknownActiveAbnormal weight gainUnknownActiveAnxiety UnknownActiveFibromyalgiaUnknownActiveMixed hyperlipidemiaUnknownActive OsteoarthritisUnknownActiveMetabolic syndrome XUnknownActivePolycystic ovarian diseaseUnknownActiveAcute bronchitisUnknownActiveBMI 29.0-29.9,adultUnknown ActiveHx of cholecystectomyUnknownActiveH/O: hysterectomyUnknownActiveHistory of drug abuseUnknownActiveMethamphetamines onlyAcute serous otitis media of both earsUnknownActivePalindromic rheumatismUnknownActiveAbdominal painUnknownActive Inactive/Resolved Problems Medical Problem Onset Date Status Comments COVID-19 Unknown Resolved CRP elevatedUnknownResolvedHeadache, post-lumbar punctureUnknownResolvedAcute chest wall painUnknownResolvedInjury of neck, whiplashUnknownResolvedInfluenza A UnknownResolvedFeverUnknownResolvedDizzinessUnknownResolvedStiff neckUnknown ResolvedMVC (motor vehicle collision)UnknownResolvedElevated sed rate (elev SR) UnknownResolvedURI (upper respiratory infection)UnknownResolvedCholecystitis UnknownResolvedHistory of stiff neckUnknownResolvedHead acheUnknownResolvedLeft arm painUnknownResolvedAsthma with exacerbationUnknownResolvedUndifferentiated abdominal painUnknownResolvedTrigger thumbUnknownResolvedHistory of renal stone UnknownResolvedNeck painUnknownResolvedBlurry vision, bilateralUnknownResolved Abdominal painUnknownResolvedAbdominal painUnknownResolvedForearm painUnknown ResolvedCholelithiasisUnknownResolvedBack sprainUnknownResolved Medications Medication Status Dose Units Route Directions Qty Days St art Date Stop Date End Date Instructions Adherence Montelukast 10 mg tablet Discontinued 0 .ROUTE.IYAWNXG81Iih 2023 11:02amAugust 2023 4:36pmTAKE 1 TABLET BY MOUTH DAILYAlbuterol Sulfate (Ventolin Hfa) 90 mcg/actuation HFA aerosol inhaler Discontinued0.ROUTE.AXJEFVC64Cjb 2023 7:38amJuly 2023 1:57pmINHALE 2 PUFFS BY MOUTH EVERY 4 HOURS NEEDEDCetirizine 10 mg yvfszgRlfkozkvshfy23CFTI Every kumjwnh9163Jmta 2023 10:02amMay 2024 11:19pmAlbuterol Sulfate (Ventolin Hfa) 90 mcg/actuation HFA aerosol inhalerActive0.ROUTE.DBKUTRZ56Vhbf 2023 1:57pmINHALE 2 PUFFS BY MOUTH EVERY 4 HOURS NEEDEDUnknown Montelukast 10 mg tabletDiscontinued0.ROUTE.YDATFYV33Iaoabu 2023 4:36pm March 08, 2024 9:51amTAKE 1 TABLET BY MOUTH DAILYMontelukast 10 mg tablet Active0.ROUTE.TZHDWOU58Wxhyils 2023 9:51amTAKE 1 TABLET BY MOUTH DAILY UnknownDicyclomine 20 mg ychiwoNnsdqtcvmnsa95KHVPAkaa times daily as needed for abdominal wvqdjdsvun94Mjxij 2017 12:00amMay 2017 12:45pmPrednisone 20 mg pzhvtkVfghplvgqegq65OKXJUghlo276Qja 2017 12:00amJune 2017 12:00amJune 2017 12:02amadminister with food or milkBenzonatate (Tessalon Perles) 100 mg womygiwRjwlltduazgi117TOHLA7L as needed for cupka08Zgg 2017 12:002017 10:05pmAlbuterol Sulfate 90 mcg/actuation HFA aerosol bfjazcaDvvjorvjqlae9ISUJTAKIABYQCwmbuq 6 to 8 hours as needed for shortness of breath or oycjpfgu9Yld 2017 12:002017 10:05pmadminister with spacerNaproxen (Naprosyn) 500 mg iwaxooYbhrtuepsiqh458TJVKZjesj daily as needed for psqu98Srj 2017 12:002017 10:05pmadminister with food or milkIbuprofen 800 mg owdyilTfepktufhfch826WOOMPyeuj times daily as needed for Usma03Jivmfyww 2022 1:00amApril 2023 12:06pmIbuprofen 800 mg pjhvxbWfpjcthftzue564MACNNkthr times daily as needed for Kqvo26Xckkiox 2023 1:00amMarch 2023 8:47amOndansetron 4 mg tablet,disintegrating Aaoxsfjbnvdl1CZBHxjrnu 6 to 8 hours as needed for Jvlfrd78Mfskdnt 2023 1:00amApril 2023 12:05pmOndansetron Hcl 4 mg qlidftVygeosqxawvr9ZTBLxafjo 6 to 8 hours as needed for nausea and okasgisb67Sbnda 2023 12:00amApril 2023 1:48pmthc sleep gummyDiscontinued0.ROUTE.COMPLEXMay 2023 12:00amMay 2024 11:15pm1 gummy QHS;Ketorolac 10 mg oafequLaqkozrgetgv47UN POQ6H as needed for fmlb28Zequkusgi 2023 12:00amMay 2024 5:08pm Cyclobenzaprine 10 mg dofqumKyrufqsifqjw98GXKWDmimy times daily as needed for muscle wycap41Jsrilwpks 2023 12:00amMay 2024 11:15pmFluticasone Furoate (Flonase Sensimist) 27.5 mcg/actuation spray,xmsdmuzwkxTayayo0KNUHF INTRANASALTwice daily6.6October 2024 12:00aminto each nostrilUnknown Naproxen 500 mg pemvnlMudiartvsjam128GSVFUbrjw daily as needed for pain20 July 05, 2017 1:00amMarch 2017 3:35pmadminister with food or milk Cephalexin (Keflex) 500 mg ssqwqsqIedvsypjwczu733XOMDI35Y66Bbfhxkst 12th, 2018 1:00amFebruary 2018 2:05pmPhenazopyridine (Pyridium) 200 mg tablet Ktogabfhacod607OUHVUkivl times daily as needed for dumn69ZnjlegsnMarch 22, 2018 1:00amFebruary 2018 2:05pmadminister with a full glass of water with each mealMultivitamin RzatmcKdegnv1KDYUQMeqhtFxohjldw 2018 1:00amUnknown Lamotrigine (Lamictal) 150 mg YlzjbfUyeqoxmfzgqu697KRJXUypynSyetlkfn 2018 1:00amFebruary 2018 9:29amOmeprazole 20 mg Capsule,Delayed Release(Dr/Ec) Pbjeufpvksoc79RZTWPfbowYicrejtc 2018 1:00amFebruary 2018 9:29am Naproxen 500 mg XykvmwCtotasavtuty734NKNDJphpg daily as needed for PainFebruary 2018 1:00amJanuary 2019 11:09amLoratadine (Claritin) 10 mg Tablet Discontinued0.ROUTE.COMPLEXFebruary 2018 1:00amNovember 2020 12:39pm 10 mg orallyAlbuterol Sulfate 90 mcg/actuation Hfa Aerosol InhalerDiscontinued2 PUFFINHALATIONEVERY 4-6 HOURS as needed for BronchospasmJuly 2018 12:00am February 12, 2022 10:52pmPrednisone 20 mg jvcefmSspvsucxwise34IYTANirwx28Ogtf 2018 12:00amJanuary 2019 11:10amAlbuterol Sulfate 2.5 mg /3 mL (0.083 %) solution for nivywexoblnnLevpvbityomy5RDHOCPPKITNSS0D as needed for Shortness Of BreathMayuary 2019 1:00amOctober 5th, 2022 10:52pmPrednisone 20 mg tabletDiscontinuedJanuary 2019 1:00amJanuary 2019 11:10amAlbuterol Sulfate 90 mcg/actuation HFA aerosol inhalerDiscontinuedJanuary 2019 1:00am May 11, 2019 11:97iiYiwpedgjxmvurdr-Dmawtmpdf-Uw 2-30-10 mg/5 mL syrup Ebccxpqrazyn64JGDSOlpf times daily as needed for CoughMay 11, 2019 1:00am March 24, 2021 12:38pmGuaifenesin (Mucinex) 600 mg tablet extended release 67hiNzjohjnzszav763MZSRN95UKorfaly 2019 1:00amNove2020 12:39pm Prednisone 20 mg vwlndjNjzymdzyrvop36SBURXevtjJoosxsk 2019 11:09amNovember 2020 12:37pmAzithromycin (Zithromax Z-Charlie) 250 mg uxfybuWcpnndrolaam8QN .HZNOHNW2Flmowai 2019 1:00amNoveer 2020 12:37pmtake 500 mg today (day 1), then 250 mg for 4 days (days 2-5)Bupropion Hcl 150 mg tablet sustained- release 12 znRbhpyngwzdcq512PESEHsuso dailyNov2020 1:00amOctober 2021 10:52pmTizanidine 4 mg pwfupfRvczbjgowdqf2MOVGYagid as needed for Leg TinglingNov2020 1:00amMac[facility] 2023 8:48amBenzonatate 200 mg inugasbRjxjycpsisyy663TORBFlyyw times daily as needed for CoughNov2020 1:00amOctober 2021 10:52pmDexamethasone 6 mg cjwhajDsoyqfsxduia9HEVQ DailyNov2020 1:00amOctober 2021 10:52pmLamotrigine 25 mg tablet Ycaarjcclvly85YZHNMicxhIbzklgnz 14th, 2021 1:00amOctober 2021 10:53pm Nicotine 21 mg/24 hr patch 24 hvugPafujntasnam4SPGGTINUVEPSIFABhlvaBxylhise 14th, 2021 1:00amOctober 2021 10:53pmMontelukast 10 mg devdptItfiafvbxdpt37 MGPOBedtimeNovember 2020 1:00amMay 2023 11:02amAzithromycin 250 mg vuhgazCizzdbmnlacf989NZWEUvfyf8Xmwjfzfb 2020 1:00amOctober 2021 10:52pmTake two tabs (500mg) on day 1 then take one tab daily for 4 days Albuterol Sulfate 2.5 mg /3 mL (0.083 %) solution for nebulizationDiscontinued 2.0WOUWFUQIQEYWC3E as needed for idinxwpaiuua80Zobmeask 2020 1:00amOctober 2021 10:52pmCetirizine 10 mg vkkgusChldlsrhzmrm66XLWMFxjkj morningOctober 2021 12:00amJuly 2023 10:02amAcetazolamide 250 mg TabletDiscontinued 250MGPODailyOctober 2021 12:00amMarch 2023 8:47amConjugated Estrogens (Premarin) 0.625 mg tabletDiscontinued0.625MGPODailyOctober 2021 12:00am July 20, 2023 8:47amHydroxyzine Hcl 25 mg mlrbdfWzeiblgluksh64RFKHRddpl at bedtime as needed for AnxietyOctober 2021 12:00amMay 2023 3:48pm Semaglutide (Ozempic) 1 mg/dose (2 mg/1.5 mL) Pen FmzpbjngWrauijrdnadg6SKPEUUAN every weekOctober 2021 12:00amMarch 2023 8:48amConjugated Estrogens (Premarin) 0.45 mg tabletDiscontinued0.45MGPOEvery morningMarch 2023 12:00amMay 2024 11:15pmHydrocodone-Acetaminophen 5-325 mg tablet Ljsekgfeycgs1BULPMA0Q as needed for dtkx371Tkkcm pril 2023 12:05pmCyclobenzaprine 10 mg nkgwiyUsubsrmfubuy97EZQKMmsvy times daily as needed for muscle qjofv40Mrhjo 2023 12:00amMay 2023 3:49pmPrednisone 50 mg scvzhfVpvizonranvr30OSITRpfqo87Lgmud 2023 12:00amMay 2023 3:48pm administer with food or milkAcyclovir 400 mg enhcssBjxsowfylcik041GHBOMkclf times grzch82Mmyat 2023 12:00amMay 2023 3:48pmKetorolac 10 mg tablet Rashkpsabewp03VXKPS4N as needed for ziwo98Fljzn 2023 12:00amMay 2023 3:48pmAcetazolamide 250 mg iotdwwEihfjrmkmxmw063OQTRXitfw dailyAugust 2023 12:00amSeptember 2023 8:29amIbuprofen 600 mg juhwacZbdhjhcxwvdn779CALSX1M as needed for mxvd450Ddvmsf 2023 12:00amMay 2024 11:15pm Acetazolamide 250 mg ejhazbEceovdmppebv525CTFFLbnou dailySeptember 2023 8:27amMay 2024 10:29amTakes 250 mg in am, 500 mg in pmMagnesium 200 mg imgyvkDkxail395XZRSNelunOaq 21st, 2025 12:00amUnknownPotassium 99 mg tablet Jwfkssyjkkhl87QPQHGggdhJui 21st, 2025 12:00amMay 2024 10:29am Dextroamphetamine-Amphetamine 20 mg xktngbNqqwgb39NRIBRxsxyEoc 2024 12:00amUnknownHydroxyzine Hcl 50 mg yeyonrXqdrfl52BSJDDsfey at bedtime as needed for anxietySeptember 28, 2024 12:00amUnknownCetirizine 10 mg phmkbwQkqeql25WPUNXrkbi at bedtimeSeptember 28, 2024 12:00amUnknownAcetazolamide 250 mg vfguobEkzunn621UOQU Twice ltwpz5LhtSeptember 30, 2024 10:27amTakes 250 mg in am, 500 mg in pmUnknown Potassium Chloride 10 mEq capsule, extended ziewegzLjfflj18LTAIFSjajy29Awi 23rd, 2025 12:00amUnknownIbuprofen 800 mg gbzcdyRippjefimivd699FBJEFdrsb times daily August 25, 2023 12:00amApril 2023 1:48pmZinc Gluconate 50 mg tabletActive 50MGPODailySeptember 2023 12:00amUnknownSemaglutide Base 0.3 mg/0.25 mL Discontinued0.25MLSUBCUTevery vvwv5Ttcenutrk2023 12:00amMa2024 11:15pmBuderer Drug Compounded Pre-filled Syringes using Semaglutide Base. Dispense 1 mL = (Four 0.25 mL pre-filled syringes)Pregabalin 50 mg capsule DiscontinuedMGPODailyNovember 2023 1:002024 11:15pmAzithromycin 250 mg ergnwmVdokbjplbfqu8KG.WTDDYZO24Crxvfhny 9th, 2024 1:002024 11:14pmFor 250 mg dose pack: take 500 mg today (day 1), then 250 mg for 4 days (days 2-5) POBenzonatate 200 mg pmlghdxUwuqqrxyfrii665PHYVAauot times daily as needed for vhrts3505Uziczoya 9th, 2024 1:002024 11:14pmPrednisone 10 mg gawawfScmcvinaflyy6SBzivcw165Dckrfnkt 9th, 2024 1:2024 5:08pm4 tablets x2 days, then 3 tab x2 days, then 2 tab x2 days, then 1 tab x2 days orally daily;Albuterol Sulfate (Ventolin Hfa) 90 mcg/actuation HFA aerosol inhalerDiscontinuedINHALATIONMay 2023 12:2023 7:38am FreeTextSi puffs as needed Inhalation every 4 hrs PRN shortness of breath, wheezing, or cough; Note: Source Status: Taking; Refills: 1; Provider: Andreas Greenwood Vital Signs Vital Reading Result Reference Range Collection Date/Time Height 62 [in_i] February 21, 2025 10:06hjAexywn54.25 kgOctober 2024 10:50pmBody Avyhderthzw47.3 [degF]97.6-99.0October 2024 10:50pmHeart Rate72 /ppy10-937 February 21, 2025 10:50pmRespiratory rate18 /hds83-66Xslsrpa 2024 10:50pm Oxygen saturation by Pulse txtqvygq97 %95-100Oct2024 10:50pmBP Qbrpwljb297 mm[Hg]100-140February 21, 2025 10:50pmBP Gqcygghxy81 mm[Hg]60-100 February 21, 2025 10:50pm Advance Directives Advance Directive Response Recorded Date/ Time Advance Directives No August 24 8:20am Insurance Providers Guarantor Karolina Nicole Address [address] [facility] [address]Jjozrlb Info.Home Phone: Payer Policy Id Subscriber's Name Subscriber Id Effectiv e Date Expiration Date [facility]/ [id number] Karolina Nicole [id number] [facility] [id number] N [id number] Encounters Encounter Location(s) Arrival/Admit Date Discharge/Depart Date Provider(s) Departed Emergency -Emergency Room February 21, 2025 10:33pm February 21, 2025 11:45pm Plan of Treatment Future Tests Future scheduled test information is unavailable Pending Tests Pending diagnostic test information is unavailable Future Visits Future appointment information is unavailable Referrals to Other Providers Reason for Referral Referral Start Date Provider Janny daley Contact Information Provider Address María Chaves Phone: [phone] Suleiman Finch [facility] [address]BebqqcoKrystyna Edgar MDWork Phone: [phone] [facility] [address] Future Procedures Future procedure information is unavailable Future Medications Future medication information is unavailable Patient Instructions Instruction Admit Date Fluid in the Ear ED February 21, 2025 1 0:33pm
--- OUTSIDE RECORDS SUMMARY | 2025-02-24 13:30 | XMS_ITS | Encounter Summary ---
Author Organization [facility] Address [address] [place] [address] Care Team Providers Care Drawing In Machine Tender Helper Name Role Phone Yoan Morel MD Primary Care Provider + Lloyd Sherwood MD Unavailable Source Comments In the event this information is protected by the Federal Confidentiality of Alcohol and Drug AbusePatient Records regulations: The Federal rules restrict any use of the information to criminally investigate or prosecute any alcohol or drug abuse patient.[facility] Reason for Visit * ReasonCommentsBlurred Vision Both EyesEye Pain Both Eyes Encounter Details DateTypeDepartmentCare Team (Latest Contact Info)Kygzljmzmuw89/17/2025 1:30 PM EDTOffice Visit [facility] [address] [place] [address] Kuldip Harris, OD [address] [place] [address] Diagn[facility], [facility] [address] [place] [id number] History of papilledema (Primary Dx); IIH (idiopathic intracranial hypertension) Social History Tobacco UseTypesPacks/DayYears UsedDateSmoking Tobacco: Every DayCigarettes Smokeless Tobacco: Never Comments:1 pack every 2 days Alcohol UseStandard Drinks/WeekCommentsNot Currently0 (1 standard drink = 0.6 oz pure alcohol)[facility] UtilitiesAnswerDate RecordedIn the past 12 months has the Retail Derivatives Trader, gas, oil, or water [employer] threatened to shut off services in your home?No12/16/2024PHQ-2AnswerDate RecordedPHQ-2 muple928Hunger Vital Sign AnswerDate RecordedWithin the past 12 months, you worried that your food would run out before you got the money to buymore.Never true12/16/2024Within the past 12 months, the food you bought just didn't last and you didn't have money to get more.Never true12/16/2024PRAPARE - TransportationAnswerDate RecordedIn the past 12 months, has lack of transportation kept you from medical appointments or from getting medications?No12/16/2024In the past 12 months, has lack of transportation kept you from meetings, work, or from getting things needed for daily living?12/16/2024Housing Stability Vital SignAnswerDate RecordedIn the last 12 months, was there a time when you were not able to pay the mortgage or rent on time?No12/16/2024In the past 12 months, how many times have you moved where you were living?t any time in the past 12 months, were you homeless or living in a fci (including now)?No12/16/2024rea Deprivation IndexAnswerDate RecordedNational Score (1-100), lower number is lower risk82 09/29/2023State Score (1-10), lower number is lower xteh205ata from: https://www.neighborhoodatlas.medicine.[facility].edu/. Last address used for rsziojrqw[address]/29/[address]23CommentsNoSex and Gender Information ValueDate RecordedSex Assigned at ZmpyhHloasf59/23/2023 3:16 PM ESTLegal Sex Izoqag0807/03/2022 3:13 PM ESTGender QlhbhkgcKydkoh61/23/2023 3:16 PM ESTSexual OrientationNot on filedocumented as of this encounter Functional Status * Are you deaf or do you have serious difficulty hearing?AnswerDate of WbsxxpbcfeQuqqvjUs87/09/2025 10:21 AM Asher Luevano RN * Are you blind or do you have serious difficulty seeing, even when wearing glasses?AnswerDate of VzxdlkepqkWuylbaGu05/09/2025 10:21 AM Asher Luevano RN * Do you have serious difficulty walking or climbing stairs?AnswerDate of RkaixlzpzdWjiajeBa16/09/2025 10:21 AM Asher Luevano RN * Do you have difficulty dressing or bathing?AnswerDate of AssessmentAuthorNo 12/17/2024 10:21 AM Asher Luevano RN * Because of a physical, mental, or emotional condition, do you have difficulty doing errands alone such as visiting a doctor's office or shopping?AnswerDate of KfgrjsfkmzFnqiewCx98/09/2025 10:21 AM Asher Luevano RN documented as of this encounter Mental Status * Because of a physical, mental, or emotional condition, do you have serious difficulty concentrating, remembering, or making decisions?AnswerEntry Date KywwqpUa77/09/2025 10:21 AM Asher Luevano RN documented in this encounter Progress Notes * Kuldip Harris, OD - 02/24/2025 2:44 PM EDT ASSESSMENT/PLAN: 1. History of papilledema - ICD9: V12.49, ICD10: Z86.69 (primary diagnosis) 2. IIH (idiopathic intracranial hypertension) - ICD9: 348.2, ICD10: G93.2 - patient presents as urgent add-on for blurred vision and eye pain today. - longstanding history of IIH and papilledema managed with Dr. Sherwood and neurosurgery Dr. Marroquin. - Opening pressure was measured as 16.5 cm water on outside lumbar puncture 01/26/25. Currently not taking Diamox. - today visual acuity right eye is mildly reduced. Visual acuity is stable left eye. - there is slight blurred margins of the optic disc right eye. This may be a chronic finding which is difficult for me to determine as acute as this is my first time evaluating the patient. - OCT retinal nerve fiber layer is stable to previous right eye and left eye. - discussed change may possibly be due to mild optic nerve edema from underlying IIH. - Suggest follow up with Dr. Sherwood. Note sent. Kuldip Harris, OD I have confirmed and edited as [...] agree with all of its relevant components. February 24, 2025 2:44 PM documented in this encounter Plan of Treatment DateTypeDepartmentCare Team (Latest Contact Info)Gxtbqfgwfnp95/06/2025 9:30 AM ESTOffice Visit [facility] [address] [place] [address] Nati Noble PA-C [address] [place] [address] Next Available New Lacxwar2803/23/2025 8:40 AM ESTOffice Visit Orthopaedics [address] [place] [address] Linda Malik PA-C [address] [place] [address] Dx: Carpal tunnel syndrome, bilateral [G56.03]04/18/2025 7:30 AM ESTOffice Visit [facility] [address] [address] Lloyd Sherwood MD [address] [place] [address] Please set the patient up for a 2 month virtual visit for history of IIH 04/24/2025 2:00 PM ESTOffice Visit Functional Medicine [address] [address] Janina Lock APRN.HEDGE FUND ACCOUNTANT [address] [address] Multiple symptoms, lifestyle /17/2025 1:30 PM ESTOffice Visit Allergy [address] [place] [phone] Joyce Murguia MD [address] [place] [address] Follow up06/15/2025 1:45 PM ESTOffice Visit [facility] [address] [place] [address] [place] [address] [place] [address] Next Available New Patientdocumented as of this encounter Procedures Procedure NamePriorityDate/TimeAssociated DiagnosisCommentsOCT OPTIC NERVE CIRRUS OU (BOTH EYES)Tddonrv8402/24/2025 1:55 PM EDT History of papilledema documented in this encounter Results * OCT OPTIC NERVE CIRRUS OU (BOTH EYES) (02/24/2025 1:55 PM EDT)Anatomical RegionLateralityModalityOther Narrative 02/24/2025 2:48 PM EDT Date of Procedure 02/24/2025 Houseman Information Nuclear Pharmacist: JAMES Start time: 1:55 PM Stop time: 1:55 PM Quality Right Eye Good. Left Eye Good. NFL Interpretation Right Eye RNFL Thickening Left Eye RNFL Thickening Ganglion Cell Layer Thickness Right Eye Normal Left Eye Normal Interval Change Right Eye Stable Left Eye Stable Authorizing ProviderResult TypeResult StatusAlexander Kimberly ODOPHTHALMOLOGY Final Result documented in this encounter Visit Diagnoses Diagnosis History of papilledema- Primary Personal history of other disorders of nervous system and sense organs IIH (idiopathic intracranial hypertension) Benign intracranial hypertension Other localized visual field defect, bilateral- Primary documented in this encounter Care Teams Team MemberRelationshipSpecialtyStart DateEnd Date Yoan Morel MD [address] [place] [address] PCP - GeneralFamily Medicine06/06/24 Lloyd Sherwood MD [address] [place] [address] ReferringOphthalmology12/14/24documented as of this encounter
--- OUTSIDE RECORDS SUMMARY | 2025-02-27 07:30 | XMS_ITS | Encounter Summary ---
Author Organization [facility] Address [facility] [place] [address] Care Team Providers Care Pediatric Assistant Name Role Phone Yoan Morel MD Primary Care Provider + Lloyd Sherwood MD Unavailable Source Comments In the event this information is protected by the Federal Confidentiality of Alcohol and Drug AbusePatient Records regulations: The Federal rules restrict any use of the information to criminally investigate or prosecute any alcohol or drug abuse patient.[facility] Reason for Visit * ReasonCommentsPapilledema Follow Up Encounter Details DateTypeDepartmentCare Team (Latest Contact Info)Fsmhmrsmfwa54/20/2025 7:30 AM EDTOffice Visit [facility]HT Ophthalmology [address] [place] [address] Lloyd Sherwood MD [address] [place] [address] Diagnostics, [facility] [address] [address] IIH (idiopathic intracranial hypertension) (Primary Dx); Other localized visual field defect, bilateral Social History Tobacco UseTypesPacks/DayYears UsedDateSmoking Tobacco: Every DayCigarettes Smokeless Tobacco: Never Comments:1 pack every 2 days Alcohol UseStandard Drinks/WeekCommentsNot Currently0 (1 standard drink = 0.6 oz pure alcohol)[facility] UtilitiesAnswerDate RecordedIn the past 12 months has the [employer], gas, oil, or water [email or web address] threatened to shut off services in your home?No12/16/2024PHQ-2AnswerDate RecordedPHQ-2 [id number] Vital Sign AnswerDate RecordedWithin the past 12 [...] were you homeless or living in a senior living (including now)?No12/16/2024rea Deprivation IndexAnswerDate RecordedNational Score (1-100), lower number is lower risk82 09/29/2023State Score (1-10), lower number is lower sngd368ata from: https://www.neighborhoodatlas.medicine.[facility].edu/. Last address used for y[address]/29/[birth year]23CommentsNoSex and Gender Information ValueDate RecordedSex Assigned at JheofJorumm40/23/2023 3:16 PM ESTLegal Sex Fkpivf3607/03/2022 3:13 PM ESTGender BnmhvcnxQhxips02/23/2023 3:16 PM ESTSexual OrientationNot on filedocumented as of this encounter Functional Status * Are you deaf or do you have serious difficulty hearing?AnswerDate of TelvdtxmqxFtbtotKb73/09/2025 10:21 AM Asher Luevano RN * Are you blind or do you have serious difficulty seeing, even when wearing glasses?AnswerDate of UbcneoicxkLazoygId90/09/2025 10:21 AM Asher Luevano RN * Do you have serious difficulty walking or climbing stairs?AnswerDate of KynuskbkccLqrjxmNs70/09/2025 10:21 AM Asher Luevano RN * Do you have difficulty dressing or bathing?AnswerDate of AssessmentAuthorNo 12/17/2024 10:21 AM Asher Luevano RN * Because of a physical, mental, or emotional condition, do you have difficulty doing errands alone such as visiting a doctor's office or shopping?AnswerDate of OauqorchddPvaonfAm46/09/2025 10:21 AM Asher Luevano RN documented as of this encounter Mental Status * Because of a physical, mental, or emotional condition, do you have serious difficulty concentrating, remembering, or making decisions?AnswerEntry Date QknjrjXa19/09/2025 10:21 AM Asher Luevano RN documented in this encounter Progress Notes * Lloyd Sherwood MD - 02/27/2025 10:48 AM EDT Karolina Nicole is a 39 year old [...] H2O. She was put on diamox in additionto ozempic with resultant 50 pound weight loss. [...] patient. She then established with neurology at [facility] in September of 2023 and was put on diamox. She was followed by Dr. Davidson as well as Dr. Landrum. At initial consultation in my clinic she [...] on the left visual field. There was noactive optic disc edema either eye. Bscan was also negative for indirect of intracranial hypertension. She discontinued the estradiol given the timing with her symptoms and wanted to proceed with lumbarpuncture ordered by neurologist Dr. Landrum (with whom I have discussed her care) - to either be completed by IR or locally if sooner. We discussed the opening pressure on the lumbar puncture being less acrurate while on diamox but given the complete clinical picture she planned to proceed as this would also exclude alternative etiologies such as meningitis given the ongoing neck stiffness that could certainly be multifactorial. At her 10/05/2024 virtual visit she reported an opening pressure on lumbar puncture recorded at 27 cm H2O, which was performed while on her side. CSF analysis was not yet received from [facility], withseveral results discussed during the virtual that she had access to and she was planning to discussseveral serum results with her primary care physician. [...] When she closed her eyes she saw dimflashing strobe lights. She denied transient visual obscurations, pulsatile tinnitus, and diplopia. She would remain off of the diamox until her post-LP headaches resolved, at which time she would start diamox 500 mg at bedtime for three nights and then increase to twice daily if tolerated. I askedher to please continue to keep me updated as to how she was doing via [employer]. At her 12/13/2024 virtual visit she reported recurrent pressure in the neck and base of her skull associated with a burning sensation, right worse than left. By the end of the day it was worse and while upright. It was improved while supine. There was also concern regarding CTS based upon recent EMG 12/09. She additionally could not climb a flight of stairs without having to take a break due to her le gs becoming weak -- she was pending repeat EMG on her lower extremities (which could only be the NCS as she did not tolerate the needle portion of the study). Concern regarding dysphagia was also noted. Since one had not previously been completed that I could see in our system I ordered a myasthenia gravis panel to be safe. She noted more floaters so she was going to ask the eye doctor she worked with to examine her to [facility]. She still had pulsatile tinnitus despite having increased up to diamox 500 mg twice a day ~2.5 weeks prior (around mid November). Repeat BMP in 12/02 reflected the metabolic acidosis from this dosing - which we would continue to monitor. There was no binocular diplopia or transient visual obscurations. We discussed and reviewed the prior June 2024 MRV images together and she was interested in consult with [facility], with whom I discussed her care. This was ultimately determined to not be an option. She additionally sought an opinion from an outside neurosurgeon. At her 01/10/2025 return visit she reported that after decreasing the diamox by 500 mg the prior IIH like headaches and bilateral pulsatile tinnitus worse while supine had unfortunately increased. Thiswas in the setting of ongoing neck pressure/ tightness/stiffness which was not impacted by the adjusted diamox dose. She did not want to increase the diamox back up given the lack of improvement in her other complex constellation of symptoms. There remained no change in vision, transient visual obscurations, etc. Her repeat exam showed stable slightly diminished best corrected visual acuity at 20/30 right eye, 20/40 left eye, intact color vision both eyes, and only mild residual blind spot enlargement (reflecting improvement from her prior study). Dilated fundus exam redemonstrated disc fullness remaining without active optic disc edema either eye. Sensorimotor exam showed full ocular motility with orthophoria in all directions of gaze tested. She would remain on diamox 500 mg daily while pending further neurosurgery evaluation. Care discussed with neurology as well. She tapered off of the diamox At her 02/13/2025 virtual visit she reported no change in vision since last visit. She still had pulsatile tinnitus and was becoming lightheaded frequently (non-vertiginous dizziness). Opening pressure was measured as 16.5 cm water on outside lumbar puncture 01/26/25. She noted some challenges during the lumbar puncture with hyperventilation and being turned to her side with discomfort associated. The were some post-LP headaches thereafter. She reported some improvement with the frontal headaches after the lumbar puncture but no change in the very bothersome neck pressure that had consistently developed by around 1PM daily. The imbalance, swallowing difficulty, pulsatile tinnitus, lightheadedness, and again the daily neckpressure had not changed in the post-LP setting. As such, I explained that these seemed less likelydirectly related to her CSF pressure. She was pending cine flow at the outside hospital 02/20 per neurosurgery. I requested the outside neuroimaging for personal review as well. She was also pending consultation with neurosurgery at the clinic in March. ASSESSMENT/PLAN: (G93.2) IIH (idiopathic intracranial hypertension) (primary encounter diagnosis) (H53.453) Other localized visual field defect, bilateral Due to acute onset bilateral blurred vision she saw my colleague urgently with stable exam recordedat that time beyond elevated intraocular pressure prior to applanation per pt. Given concerns I added her urgently to my next clinic spot. At her 02/27/2025 return visit she reported ongoing pressure and eye pain - different from prior intracranial hypertension associated symptoms. Pulsatile tinnitus noted AU. 14 pound weight gain reported since December while off from work dealing with all of this, without any new intracranial hypertension provoking medications had been initiated. Additionally noted ongoing systemic concerns including polyarthralgia for which she was pending rheumatology evaluation. Her repeat exam showed a decline in the best corrected visual acuity to 20/40 right eye, 20/60 lefteye out of proportion to the visual field deficits - with scattered areas of decreased sensitivity including trace blind spot enlargement both eyes. She did have suggestion of interval development ofnasal optic disc edema both eyes. Bscan did show positive features of intracranial hypertension compared with prior. Sensorimotor exam showed full ocular motility with orthophoria in all directions of gaze tested. We discussed the indication to repeat dedicated orbital imaging given ddx followed by a lumbar puncture for CSF analysis in addition to opening pressure. Discussed with neurologist Dr. Landrum with plan for potential direct admission. We can adjust our follow up thereafter with current return scheduled in 7 weeks, unless concerns arise in the interim, for which she was provided my contact information and encouraged to reach out. ER presentation is otherwise advised for any acute onset neurological deficits. [facility] can be reached at: [phone]. Lloyd Sherwood MD 12:26 PM 02/27/2025 FOR ADMINISTRATIVE PURPOSES ONLY: My impression of this case is based upon an assessment of the patient's subacute on chronic problems listed above that pose a threat to visual and neurologic function. 51 minutes were spent on total patient care on the day of service that includes both ufwq-su-tvmb and ysf-bbov-ky-face time. This time was separate from any of my time spent completing and interpreting the ancillary testing (such as OCT, fundus photos, visual lugo) and sensorimotor exam, if applicable. This time was broken downinto: 5 minutes reviewing the patient record before the visit, 10 minutes performing a medically appropriate neuro- ophthalmic history and exam (excluding time spent on the ancillary testing and sensorimotor exam, if applicable), 5 communicating results to the patient/family, 15 minutes counseling /educating the patient, 5 minutes documenting clinical information into the electronic health recordof the patient, and 11 minutes coordinating care for the patient. I communicated with Dr. Morel and Dr. Landrum regarding the management of this patient. The assessment and plan were discussed extensively with the patient who was amenable and voiced understanding. documented in this encounter Plan of Treatment DateTypeDepartmentCare Team (Latest Contact Info)Krwvtuqsofi60/06/2025 9:30 AM ESTOffice Visit [facility] [address] [place] [address] Nati Noble PA-C [address] [place] [address] Next Available New Ugdivuf8703/23/2025 8:40 AM ESTOffice Visit Orthopaedics [address] [place] [address] Linda Malik PA-C [address] [place] [address] Dx: Carpal tunnel syndrome, bilateral [G56.03]04/18/2025 7:30 AM ESTOffice Visit [facility] Ophthalmology [address] [address] Lloyd Sherwood MD [address] [place] [address] Please set the patient up for a 2 month virtual visit for history of IIH 04/24/2025 2:00 PM ESTOffice Visit Functional Medicine [address] [address] Janina Lock APRN.[employer] [address] [address] Multiple symptoms, lifestyle sxgyhdiizr82/17/2025 1:30 PM ESTOffice Visit Allergy [facility] [place] [id number] Joyce Murguia MD [address] [place] [address] Follow up06/15/2025 1:45 PM ESTOffice Visit [facility] [address] [place] [address] [place] [address] [place], [place] [id number] Next Available New Patientdocumented as of this encounter Procedures Procedure NamePriorityDate/TimeAssociated DiagnosisCommentsBSCAN AND ASCAN OU (BOTH EYES)Zfrcgxa2902/27/2025 10:01 AM EDT Other localized visual field defect, bilateral OPTIC DISC PHOTO OU (BOTH EYES)Zepyhzh7702/27/2025 9:16 AM EDT Other localized visual field defect, bilateral VISUAL FIELD 24-2 OU (BOTH EYES)Riryogh8502/27/2025 8:46 AM EDT Other localized visual field defect, bilateral documented in this encounter Results * BSCAN AND ASCAN OU (BOTH EYES) (02/27/2025 10:01 AM EDT)Anatomical Region LateralityModalityOther Narrative 02/27/2025 10:52 AM EDT Date of Procedure 02/27/2025 Solar Design Engineer Information FLOR Chan CDOS 02/27/2025 10:00 AM . Notes Interpretation of Ultrasound: ( A/B-Scan) ?? Eye: OU 1. Mild optic disc elevation OU 2. No echographic evidence of optic disc drusen OU 3. Cross section of the optic nerves are round and slightly blurred; mild echolucent crescent sign detected, OU. 4. Retrobulbar Optic Nerve diameter measure within larger than normal limits- indicative of increased subarachnoid fluid ?? Authorizing ProviderResult TypeResult StatusDecristina Sherwood MDOPHTHALMOLOGYFinal Result * OPTIC DISC PHOTO OU (BOTH EYES) (02/27/2025 9:16 AM EDT)Anatomical Region LateralityModalityOther Narrative 02/27/2025 10:59 AM EDT Date of Procedure 02/27/2025 Solar Design Engineer Information Chef Passenger Vessel: WILLIAM Interpretation Right Eye Disc edema. Left Eye Disc edema. Interval Change Right Eye Worse Left Eye Worse Authorizing ProviderResult TypeResult StatusLloyd Sherwood MDOPHTHALMOLOGYFinal Result * VISUAL FIELD 24-2 OU (BOTH EYES) (02/27/2025 8:46 AM EDT)Anatomical Region LateralityModalityOther Narrative 02/27/2025 10:52 AM EDT Date of Procedure 02/27/2025 Solar Design Engineer Information Chef Passenger Vessel: BRAYDEN Start time: 8:29 AM Stop time: 8:46 AM I ASKED THE PATIENT IF THEY WERE ALLERGIC TO BANDAGES OR ADHESIVES PATIENT RESPONSE -YES. Reliability Right Eye Good. Left Eye Good. 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 Interval Change Right Eye Worse Left Eye Stable Authorizing ProviderResult TypeResult StatusLloyd Sherwood MDOPHTHALMOLOGYFinal Result documented in this encounter Visit Diagnoses Diagnosis IIH (idiopathic intracranial hypertension)- Primary Benign intracranial hypertension Other localized visual field defect, bilateral Other localized visual field defect, bilateral- Primary documented in this encounter Administered Medications Medication OrderMAR ActionAction DateDoseRateSite PHENYLephrine 2.5 % 1 drop (AK-DILATE, ANTHONY-SYNEPHRINE) 1 drop, BOTH EYES, DIRECTED, Starting on 02/27/25 at 0809, Until 03/11/25 at 0808, Administer for dilation PROTECT FROM LIGHT, [facility] CLINIC MED ORDERS Indications:Other localized visual field defect, fddjsxilfHrgeq22/20/2025 8:46 AM EDT1 drop tropicamide 1 % 1 drop (MYDRIACYL) 1 drop, BOTH EYES, DIRECTED, Starting on 02/27/25 at 0809, Until 03/11/25 at 0808, Administer for dilation, [facility] CLINIC MED ORDERS Indications:Other localized visual field defect, uzfzwpschEmrsv85/20/2025 8:46 AM EDT1 dropdocumented in this encounter Care Teams Team MemberRelationshipSpecialtyStart DateEnd Date Yoan Morel MD [address] [place] [address] PCP - GeneralFamily Medicine06/06/24 Lloyd Sherwood MD [address] [place] [address] ReferringOphthalmology12/14/24documented as of this encounter
--- OUTSIDE RECORDS SUMMARY | 2025-02-27 11:00 | XMS_ITS | Encounter Summary ---
Author Organization [facility] Address [facility] [place] [address] Care Team Providers Care Accident Investigator Name Role Phone Yoan Morel MD Primary Care Provider [phone] Lloyd Sherwood MD Unavailable Source Comments In the event this information is protected by the Federal Confidentiality of Alcohol and Drug AbusePatient Records regulations: The Federal rules restrict any use of the information to criminally investigate or prosecute any alcohol or drug abuse patient.[facility] Reason for Referral * Diagnostic Procedure Only (Routine) - ClosedSpecialtyDiagnoses / Procedures Referred By ContactReferred To ContactXR IMAGING Diagnoses Polyarthralgia Procedures XR HAND GENERAL 3V PA/LAT/OBL BILATERAL RADEX HAND MINIMUM 3 VIEWS Amelie Boykin MD [address] [place] [address] Phone: tel: fax: XR IMAGING [place] [address] Referral IDStatusReasonStart DateExpiration DateVisits RequestedVisits [id number] Auto-Generated Referral 511/ Reason for Visit * ReasonCommentsJoint Pain Encounter Details DateTypeDepartmentCare Team (Latest Contact Info)Zlzvmnoopja77/20/2025 11:00 AM EDTOffice Visit [facility] [address] [address] Amelie Boykin MD [address] [place] [address] Polyarthralgia (Primary Dx); Hand swelling; Fibromyalgia; Intracranial hypertension; Allodynia; Recurrent infections Social History Tobacco UseTypesPacks/DayYears UsedDateSmoking Tobacco: Every DayCigarettes Smokeless Tobacco: Never Comments:1 pack every 2 days Alcohol UseStandard Drinks/WeekCommentsNot Currently0 (1 standard drink = 0.6 oz pure alcohol)[facility] UtilitiesAnswerDate RecordedIn the past 12 months has the Playto, gas, oil, or water Ship It Bag Check threatened to shut off services in your home?No12/16/2024PHQ-2AnswerDate RecordedPHQ-2 agytx437Hunger Vital Sign AnswerDate RecordedWithin the past 12 [...] or from getting things needed for daily living?No12/16/2024Housing Stability Vital SignAnswerDate RecordedIn the last 12 months, was there a time when you were not able to pay the mortgage or rent on time?No12/16/2024In the past 12 months, how many times have you moved where you were living?[address]t any time in the past 12 months, were you homeless or living in a group home (including now)?No12/16/2024rea Deprivation IndexAnswerDate RecordedNational Score (1-100), lower number is lower risk82 09/29/2023State Score (1-10), lower number is lower zuhz531ata from: https://www.neighborhoodatlas.[facility].edu/. Last address used for [address]4CommentsNoSex and Gender Information ValueDate RecordedSex Assigned at CkvkeUfeiie93/23/2023 3:16 PM ESTLegal Sex Taqmov4007/03/2022 3:13 PM ESTGender MkbzfpojGpxwiw17/23/2023 3:16 PM ESTSexual OrientationNot on filedocumented as of this encounter Last Filed Vital Signs Vital SignReadingTime TakenCommentsBlood Vksmducn486/8202/27/2025 11:16 AM EDT Adeif464402/27/2025 11:16 AM BHFSomzkpvsyoj53.4 ??C (97.5 ??F)02/27/2025 11:16 AM EDTRespiratory Rate--Oxygen Saturation--Inhaled Oxygen Concentration--Tpouuy44.1 kg (170 lb)02/27/2025 11:16 AM WWMJnsacw855.5 cm (5' 2 )02/27/2025 11:16 AM EDT Body Mass Index31.0902/27/2025 11:16 AM EDTdocumented in this encounter Functional Status * Are you deaf or do you have serious difficulty hearing?AnswerDate of KiwmnevwvhFaleguKq22/09/2025 10:21 AM Asher Luevano RN * Are you blind or do you have serious difficulty seeing, even when wearing glasses?AnswerDate of ZhoyuxfrcgQjronyUa12/09/2025 10:21 AM Asher Luevano RN * Do you have serious difficulty walking or climbing stairs?AnswerDate of HaainbpzckUulsejTq86/09/2025 10:21 AM Asher Luevano RN * Do you have difficulty dressing or bathing?AnswerDate of AssessmentAuthorNo 12/17/2024 10:21 AM Asher Luevano RN * Because of a physical, mental, or emotional condition, do you have difficulty doing errands alone such as visiting a doctor's office or shopping?AnswerDate of CykksgbzcaFmucswHq91/09/2025 10:21 AM Asher Luevano RN documented as of this encounter Mental Status * Because of a physical, mental, or emotional condition, do you have serious difficulty concentrating, remembering, or making decisions?AnswerEntry Date BwklupZc76/09/2025 10:21 AM Asher Luevano RN documented in this encounter Progress Notes * Amelie Boykin MD - 02/27/2025 12:18 PM EDT Images from the original note were not included. Rheumatology FOLLOW UP VISIT Date of Service: 02/27/2025 Patient: Karolina Nicole Medical Record: [id number] Primary Care Physician: Yoan Morel MD Last Rheumatology visit: 10/12/2023 (with Alem Cuadra) History of Present Illness Karolina Nicole is a 39 year old White female who presents on 02/27/2025 for an in-person visit for evaluation of Joint Pain. Karolina reports a current pain level of 7 . She describes the pain as Aching, Burning, Cramping, Numbness, Pressure, Pulsating, Sore, Stiffness, Tenderness, Throbbing, Tightness, Tingling. The pain is Continuous . Interventions tried include Reposition, Relaxation, Heat, Pillow support, Positioning. Having flare up now as well. Karolina is both RF - 9 (02/27/2025) and CCP - 13.5 (02/27/2025) negative. Her most recent MOOK was negative (08/05/2024). HISTORY OF PRESENT ILLNESS The patient is a 39-year-old female with fibromyalgia and idiopathic intracranial hypertension, presenting for evaluation of hand swelling and polyarthralgia. Karolina is a 39-year-old female with a history of fibromyalgia, presenting with hand pain and swelling. Karolina reports onset of hand pain and swelling 4 days ago, with persistent symptoms since. difficulty bending fingers due to pain and stiffness. She has previously seen Dr. Cuadra, but requests that I do not review and notes or work up she has previously had in order to make my assessment. Symptoms are constant throughout the day and worsen with use, such as driving or brushing her daughter's hair. She has not been able to braid hair for 2 years due to hand pain. Cold or heat application provides some relief. She denies Raynaud's phenomenon. Karolina describes diffuse myalgia and arthralgia, with stiffness and pain in all joints, particularlyexacerbated by weather changes. She experiences daily total body pain and tenderness, noting that even light touch is painful. She avoids massages due to tenderness. She reports leg cramps and charley horses frequently. Karolina reports significant fatigue, stating she has been taking daily naps, which is unusual for her. She sleeps well, going to bed at [id number] and waking at 0530. She has noted hair loss, oral ulcers that started recently. She occasionally experiences xerostomia. She has a family history of autoimmune diseases, including RA in her mother and both RA and lupus in her grandmother. She was previously evaluated by rheumatology in September of last year, with [facility], but negative MOOK and extractable nuclear antigens subsequently. She was diagnosedwith fibromyalgia and was intolerant to Lyrica, gabapentin, and Cymbalta. She has a history of IIH and has undergone 5 lumbar punctures. Was seen at [facility] today and is being admitted due to concern for IHH due to optic disc edema and concern for recurrence of herIIH. She has been experiencing frequent infections, including COVID, influenza A, strep throat, and a stomach bug within a 5-month period last year. She has been hospitalized 3 times and sick twice since then. She is concerned about the underlying cause of her recurrent infections and current symptoms. She denies alcohol or recreational drug use and quit smoking 6 months ago. 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 Five points is a clinicallymeaningful difference.) Physical T-Score 54.1 26.7 26.7 29.6 Mental T-Score 50.8 28.4 28.4 43.5 Multiple values from one day are sorted in reverse-chronological order 12/19/2024 01/26/2025 02/25/2025 PROMIS CAT Pain Interference PROMIS Pain Interference T-Score (range: 10 - 90) 81 (severe) 67 (moderate) 67 (moderate) PROMIS Pain Interference Percentile 0 4 4 PROMIS Adult Short Form-Global Health Score (Mental) 43.5 (Good) 02/22/2024 12/19/2024 02/25/2025 PROMIS CAT Fatigue PROMIS Fatigue T-Score 66 (moderate) 74 (severe) 66 (moderate) PROMIS Fatigue Percentile 5 1 5 12/19/2024 01/26/2025 02/25/2025 PROMIS PHYSICAL FUNCTION T-SCORE PROMIS Physical Function T-Score 33 (moderate dysfunction) 37 (moderate dysfunction) 35 (moderate dysfunction) Physical Function Percentile 4 10 7 RAPID 3 [place] Activities of Daily Living 02/25/2025 10:03 PM 09/27/2023 8:52 PM Dress self? Without ANY difficulty Get in and out of bed? With SOME difficulty Without ANY difficulty Walk outdoors? Without ANY difficulty Wash and dry body? With SOME difficulty Without ANY difficulty Get in and out of car? Without ANY difficulty Without ANY difficulty RAPID 3 Disease Activity Weighed Score Levels: 0 - 1: Near Remission 1.3 - 2.0: Low Severity 2.3 - 4.0: Moderate Severity 4.3 - 10.0: High Severity 09/27/2023 02/25/2025 RAPID-3 Weighed Score RAPID 3 Weighed Score 4.67 (High severity ) Incomplete 02/25/2025 RAPID-3 Weighed Score Percentage Change Compared to Last Score -100 Review of Systems Review of Systems CONSTITUTION: Positive for: Recent weight change Negative for: Fever HEENT: Positive for: Mouth sores, Trouble swallowing and Dry mouth Negative for: Nosebleeds RESPIRATORY: Negative for: Cough, Shortness of breath and Pain with breathing GASTROINTESTINAL: Positive for: Heartburn and Abdominal pain Negative for: Melena and Diarrhea MUSCULOSKELETAL: Positive for: Arthralgias, Myalgias, Muscle weakness, Joint swelling and Morning Joint Stiffness NEUROLOGICAL: Positive for: Numbness and Memory loss Negative for: Headaches SKIN: Positive for: Hair loss Negative for: Rash, Skin changes and Nail changes EYES: Positive for: Eye pain, Eye redness and Visual disturbance Negative for: Eye dryness CARDIOVASCULAR: Positive for: Leg swelling Negative for: Chest pain GENITOURINARY: Negative for: Dysuria and Hematuria HEMATOLOGIC/LYMPHATIC: Positive for: Swollen glands All other reviewed and negative other than HPI. Past Medical History PAST MEDICAL HISTORY Diagnosis Date Fibromyalgia IIH (idiopathic intracranial hypertension) Osteoarthritis of multiple joints Palindromic rheumatism Past Surgical History PAST SURGICAL HISTORY Procedure Laterality Date LAPAROSCOPIC CHOLECYSTECTOMY 07/29/2023 LAPAROSCOPY-ROBERTO 10/19/2012 LIGATE FALLOPIAN TUBE Bilateral 12/15/2011 REMOVAL OF OVARY/TUBE(S) Bilateral 10/19/2012 TOTAL ABDOM HYSTERECTOMY 10/19/2012 Family History FAMILY HISTORY Problem Relation Age of Onset Cancer Mother Cataract Mother Hypertension Sister Cataract Sister Blindness Sister Heart Maternal Grandmother Glaucoma No Family History Detached Retina No Family History Macular Degen No Family History Difficulty with anesthesia No Family History Social History SOCIAL HISTORY[1] Current Medications No current outpatient medications on file. Labs Latest Ref Rng & Units 12/02/2024 12/15/2024 02/27/2025 02/28/2025 CBC WBC 3.70 - 11.00 k/uL 7.25 7.77 6.52 5.96 Hemoglobin 11.5 - 15.5 g/dL 13.8 12.9 13.7 12.7 Hematocrit 36.0 - 46.0 % 39.1 37.2 39.2 35.2 Platelet Count 150 - 400 k/uL 292 313 297 273 Abs Neut (ANC) 1.45 - 7.50 k/uL 2.75 2.89 1.77 Abs Lymph 1.00 - 4.00 k/uL 4.06 3.10 3.40 Latest Ref Rng & Units 12/15/2024 12/16/2024 02/27/2025 02/28/2025 CMP Sodium 136 - 144 mmol/L 142 139 141 139 Potassium 3.7 - 5.1 mmol/L 3.6 3.8 3.9 3.9 Chloride 98 - 107 mmol/L 109 111 103 103 CO2 22 - 30 mmol/L 20 18 22 23 Glucose 74 - 99 mg/dL 93 137 137 113 BUN 7 - 21 mg/dL 19 18 14 13 Creatinine 0.58 - 0.96 mg/dL 1.08 1.01 0.93 0.91 Calcium 8.5 - 10.2 mg/dL 9.3 8.8 9.4 9.0 AST 13 - 35 U/L 21 43 41 ALT 7 - 38 U/L 18 61 66 Alkaline Phosphatase 34 - 123 U/L 72 79 79 Latest Ref Rng & Units 09/29/2023 06/14/2024 ESR, WSR WSR 0 - 20 mm/hr 9 2 Latest Ref Rng & Units 09/29/2023 06/14/2024 CRP CRP <0.9 mg/dL <0.3 <0.3 Latest Ref Rng & Units 09/29/2023 C3, C4 C3 86 - 166 mg/dL 137 C4 13 - 46 mg/dL 23 Latest Ref Rng & Units 09/29/2023 CK CK 42 - 196 U/L 116 Latest Ref Rng & Units 09/29/2023 02/27/2025 RF and CCP Rheumatoid Factor <16 IU/mL <10 <10 CCP Antibody IgG Qualitative Negative Negative Negative CCP Antibody, IgG <20 Units <15 <15 Latest Ref Rng & Units 09/29/2023 08/05/2024 Antibodies MOOK Negative Positive Negative MOOK Titer 1:80 MOOK Pattern Nuclear fine speckled DNA Antibody <=200 IU/mL 29 Anti-Sm <1.0 AI <0.2 <0.2 Sm Antibody Negative Negative Negative Ribosomal SCRUB TECH Ab <1.0 AI <0.2 <0.2 Ribosomal SCRUB TECH Qualitative Negative Negative Negative Chromatin Ab <1.0 AI <0.2 <0.2 Chromatin Ab Qual Negative Negative Negative SSA Antibody Qual Negative Negative Negative Anti-SSA <1.0 AI <0.2 <0.2 Anti-SSB <1.0 AI <0.2 <0.2 SCRUB TECH Antibody QUAL Negative Negative Negative Scleroderma Ab Qual Negative Negative Negative Scl-70 Abs, EIA <1.0 AI <0.2 <0.2 Centromere Ab <1.0 AI <0.2 <0.2 CENTROMERE AB QUAL Negative Negative Negative DEE-1 ANTIBODY, IGG <1.0 AI <0.2 <0.2 DEE 1 ANTIBODY QUAL Negative Negative Negative Beta 2 Glycoprotein, IgM <20 [...] <0.10 Latest Ref Rng & Units 09/29/2023 12/15/2024 Urinalysis Protein, Urine Trace, Negative Negative Negative RBC, Urine 0-3 /HPF 0-2 /HPF 0-3 /HPF Protein/Creat Ratio <0.15 mg/mg 0.18 Imaging Last XR Chest - Impression Only No resulted procedures found. Health Maintenance Current Immunizations Reviewed on 02/27/2025 No immunizations on file. Physical Exam GENERAL APPEARANCE: Well groomed. Alert and oriented x 3. In no distress. VITAL SIGNS: BP 123/82 Pulse 79 Temp (Src) 97.5 (Temporal) Ht 5' 2 (1.58m) Wt 170 lb (77.1kg) BMI 31.09 kg/(m^2). Physical Exam SKIN: No rash, thickening, nodules, discoloration. EYES: no scleritis, pupils pharmacologically dilated. RESPIRATORY: Normal respiratory effort. CTAB CARDIOVASCULAR: Heart RRR, no murmur. MUSCULOSKELETAL EXAMINATION: Soft tissue tender points:diffuse allodynia Spine: Cervical spine: No visible abnormalities. No tenderness to palpation. TTP to paraspinal muscles Thoracic spine: No visible abnormalities.No tenderness to palpation. TTP to paraspinal muscles Lumbar spine: No visible abnormalities. No tenderness to palpation. TTP to paraspinal muscles Upper extremities: Shoulders: Full ROM in all lugo, no tenderness to palpation. No swelling or effusion. Bilateral biceps and deltoid tenderness. Elbows: Full ROM in flexion and extension. No swelling or effusion. No tenderness to palpation to the joint line, olecranon, medial or lateral epicondyles. Wrists: Full ROM in all lugo. No swelling or synovitis. Mild TTP to R wrist. Hands: 1 mm palm to finger, difficulty making a first. Lower extremities: Knees: Full ROM in flexion and extension. No swelling or effusion. No tenderness to palpation. , Ankles: Full ROM in all lugo. No swelling or effusion. No tenderness to palpation along the jointline, medial/lateral malleolus, ATFL, PTFL, CFL, or Achilles Tendon. Feet: Full ROM in toe flexion/extension. No effusion. No tenderness to palpation. No evidence of MTP swelling. There is currently no information documented [facility] the [facility]. Go to the Rheumatology activity andcomplete the [facility] joint exam. Joint Exam 02/27/2025 No joint exam has been documented for this visit Joint Exam Data (across time) Impression Diagnoses: (M25.50) Polyarthralgia (primary encounter diagnosis) (M79.89) Hand swelling (M79.7) Fibromyalgia (G93.2) Intracranial hypertension (R20.8) Allodynia (B99.9) Recurrent infections # Polyarthralgia (M25.50) # Hand swelling (M79.89) Recurrent hand swelling and polyarthralgia, most recently with persistent swelling and pain in the hands for the past 4 days. Prior workup by rheumatology (Dr. Cuadra, September 2023) included negative MOOK and negative extractable nuclear antigens; prior RF and CCP also negative. DDX includes seronegative RA vs PSA. She is concerned that her IIH and joint symptoms are the result of an autoimmune disease. She would like her MOOK repeated as last time it was done, it resulted negative. She previously was worked up for SLE and ENAs, complements were normal. MOOK 1:80. Although patients with SLE can develop IIH, her work up for SLE has been negative. Most recent negative MOOK was September 2024. She would like her MOOK repeated as she is concerned it may be positive now that she is symptomatic. We discussedthat the MOOK would not change based on disease activity and is not used as a disease activty marker. She is frusrated that she does not have answers for her symptoms, or a solution for her hand symptoms and pain. Her hand and joint symptoms may be a seronegative RA which we discussed extensively today, however I do not feel this is related to the IIH she was diagnosed with in 2021 and this is a seperate issue. She has previously had negative inflammatory markers, negative RF, negative CCP, and normal hand x- rays. Today there is no synovitis present, she does have mild tenderness in MCPs and PIPs and reported stiffness. I discussed that it would be reasonable to start a trial of plaquenil after she returns from the hospital. She states she does not want any medications without additional work up and feels she is not going to be your guinnea pig . I discussed that she has had this work up in the past, and seronegative RA is a clinical diagnosis. Initial presentations may be more mild or even palindromic and initiation of plaquenil is common in these situations. She does not want thisdue to potential side effects, and feels her visit is too focused on the possibility of her having RA which has been lluvia up in the past. I again discussed that at this time I do not have evidence that her IIH is due to a rheumatologic condition. I discussed the side effects of plaquenil extensively, additionally given her reports of recurrent infections plaquenil is a good option as it would not make infections more likely. At this time I would not recommend steroids as she is currently being directly admitted to the hospital, and due to the frequent infections she reports. I will repeat her RF, CCP, inflammatory markers, and x-rays though I do not see the utility of repeating her MOOK given how recent her last MOOK was. We can rediscuss plaquenil once she is discharged from the hospital. If her RF and CCP are negative I would still be in favor of a trial a plaquenil to address her joint symptoms. - Order repeat rheumatoid arthritis antibodies and inflammatory markers. - b/l hand XR - Discussed starting Plaquenil 400 mg daily after hospital discharge; reviewed that it may take 3-6months for effect. She does not want medications at this time. - will follow up with her in 2 weeks to discussed todays work up, her in hospital work up. Decisionto start plaquenil will be made at the next visit. - Advised against steroid use at this time - Follow-up via video visit in 2 weeks to review lab and X-ray results. # Fibromyalgia (M79.7) suggested by her diffuse allodynia but does not explain her joint symptoms - No changes to current management at this time. # Intracranial hypertension (G93.2) being directly admitted for disc edema today. Plan Orders this visit: Office Visit on 02/27/25 XR HAND GENERAL 3V PA/LAT/OBL BILATERAL COMPLETE BLOOD COUNT AND DIFFERENTIAL COMPREHENSIVE METABOLIC PANEL RHEUMATOID FACTOR CCP ANTIBODY IGG IMMUNOGLOBULINS,IGG,IGA,IGM No follow-ups on file. I spent a total of 75 minutes on the date of the service which included preparing to see the patient, asoj-li-tweh patient care, completing clinical documentation, obtaining and/or reviewing separately obtained history, performing a medically appropriate examination, counseling and educating the pat ient/family/caregiver, ordering medications, tests, or procedures, independently interpreting results (not separately reported), and communicating results to the patient/family/caregiver. Amelie Boykin MD Rheumatology Date: February 27, 2025 Time: 12:18 PM [1] Social History Tobacco Use Smoking status: Every Day Current packs/day: 0.50 Types: Cigarettes Smokeless tobacco: Never Tobacco comments: 1 pack every 2 days Vaping Use Vaping status: Never Used Substance Use Topics Alcohol use: Not Currently Drug use: Not Currently documented in this encounter Plan of Treatment DateTypeDepartmentCare Team (Latest Contact Info)Seggabhsaru26/06/2025 9:30 AM ESTOffice Visit [facility] [address] [place] [address] Nati Noble PA-C [address] [place] [address] Next Available New Lscxjoj2703/23/2025 8:40 AM ESTOffice Visit Orthopaedics [address] [place] [address] Linda Malik PA-C [address] [place] [address] Dx: Carpal tunnel syndrome, bilateral [G56.03]04/18/2025 7:30 AM ESTOffice Visit [facility] [address] [address] Lloyd Sherwood MD [address] [place] [address] Please set the patient up for a 2 month virtual visit for history of IIH 04/24/2025 2:00 PM ESTOffice Visit Functional Medicine [address] [address] Janina Lock APRN.AUTOMOTIVE SALES PROFESSIONAL [address] [address] Multiple symptoms, lifestyle jgutrkzpqb15/17/2025 1:30 PM ESTOffice Visit Allergy [address] [place] [phone] Joyce Murguia MD [facility] [place], [place] [id number] Follow up06/15/2025 1:45 PM ESTOffice Visit [facility] [address] [place] [address] [place] [address] [place] [address] Next Available New Patientdocumented as of this encounter Results * XR HAND GENERAL 3V PA/LAT/OBL BILATERAL (02/27/2025 1:05 PM EDT)Anatomical RegionLateralityModalityHandOtherSpecimen (Source)Anatomical Location / LateralityCollection Method / VolumeCollection TimeReceived Time02/27/2025 1:05 PM EDT Impressions 02/27/2025 2:20 PM EDT IMPRESSION: Normal. Telesales Manager: PSCB ?? Transcribe Date/Time: Feb 27 2025 ??2:17P Dictated by : BEN HANNA MD This examination was interpreted and the report reviewed and electronically signed by: BEN HANNA MD on Feb 27 2025 ??2:18PM ??EST Narrative 02/27/2025 2:20 PM EDT * * *Final Report* * * DATE OF EXAM: Feb 27 2025 ??1:05PM ?? AOX ?? [id number] ??- ??XR HAND 3V PA/LAT/OBL KODY ?? / PROCEDURE REASON: Polyarthralgia ? * * * * Physician Interpretation * * * * HISTORY: ??Polyarthralgia ?? . ??rheumatology work up of bilateral hands TECHNIQUE: XR HAND 3V PA/LAT/OBL KODY COMPARISON: None RESULT: Joint spaces and alignment normal. ??No evidence of a fracture. ??No erosions. ??No acute periosteal reaction. ??Normal soft tissues. No other significant abnormality. Procedure Note Provider, [facility] [place] - 02/27/2025 * * *Final Report* * * DATE OF EXAM: Feb 27 2025 1:05PM AOX 5556 - XR HAND 3V PA/LAT/OBL KODY / PROCEDURE REASON: Polyarthralgia * * * * Physician Interpretation * * * * HISTORY: Polyarthralgia . rheumatology work up of bilateral hands TECHNIQUE: XR HAND 3V PA/LAT/OBL KODY COMPARISON: None RESULT: Joint spaces and alignment normal. No evidence of a fracture. No erosions. No acute periosteal reaction. Normal soft tissues. No other significant abnormality. IMPRESSION IMPRESSION: Normal. Telesales Manager: ANA Transcribe Date/Time: Feb 27 2025 2:17P Dictated by : BEN HANNA MD This examination was interpreted and the report reviewed and electronically signed by: BEN HANNA MD on Feb 27 2025 2:18PM EST Authorizing ProviderResult TypeResult Jodie Boykin MDRAD-PAMA Final Result * (ABNORMAL) IMMUNOGLOBULINS,IGG,IGA,IGM (02/27/2025 12:30 PM EDT)ComponentValue Ref RangeTest MethodAnalysis TimePerformed AtPathologist PnvwglujjTtG830(L)700 - 1,600 mg/dL02/27/2025 4:22 PM EDTCMERC[facility] VWFYvX73766 - 400 mg/dL02/27/2025 4:22 PM [facility]TC[facility] DFBJcO2890 - 230 mg/dL 02/27/2025 4:22 PM EDTCUN[facility] MA[facility] LABSpecimen (Source)Anatomical Location / LateralityCollection Method / VolumeCollection TimeReceived Time BloodBLOOD SPECIMEN / UnknownVenipuncture / Mvtmgbx4602/27/2025 12:30 PM EDT 02/27/2025 12:31 PM EDT Narrative Authorizing ProviderResult TypeResult StatusAmelie Boykin MDLABORATORY Final ResultPerforming OrganizationAddressCity/State/ZIP CodePhone Number [facility] [address] [place], [place] [address] * CCP ANTIBODY IGG (02/27/2025 12:30 PM EDT)ComponentValueRef RangeTest Method Analysis TimePerformed AtPathologist SignatureCCP Antibody IgG Qualitative GdzvcaamEogznzgo66/21/2025 11:48 AM EDTCUNIV[facility] MAIN LABCCP Antibody, IgG<15<20 Units02/28/2025 11:48 AM EDTCUN[facility] MA[facility] LABSpecimen (Source)Anatomical Location / LateralityCollection Method / VolumeCollection TimeReceived TimeBloodBLOOD SPECIMEN / UnknownVenipuncture / Jbxpqhi3102/27/2025 12:30 PM EDT1 12:31 PM EDT Narrative [facility] - 02/28/2025 11:48 AM EDT This test is used as aid in diagnosis of Rheumatoid arthritis (RA). A negative result cannot rule out RA where clinically suspected. Clinical correlation is required. The following results were obtained with an [employer] QUANTA Lite CCP IgG JV. Cyclic Citrullinated Peptide IgG values obtained with different manufacturers' assay methods may not be used interchangeably. The magnitude of the reported IgG levels cannot be correlated to an endpoint titer. Authorizing ProviderResult TypeResult StatusAmelie Boykin MDLABORATORY Final ResultPerforming OrganizationAddressCity/State/ZIP CodePhone Number [facility] [address] [place] [address], * RHEUMATOID FACTOR (02/27/2025 12:30 PM EDT)ComponentValueRef RangeTest Method Analysis TimePerformed AtPathologist SignatureRheumatoid Factor<10<16 IU/mL 02/27/2025 4:39 PM ED[facility] LABSpecimen (Source)Anatomical Location / LateralityCollection Method / VolumeCollection TimeReceived Time BloodBLOOD SPECIMEN / UnknownVenipuncture / Uamctbk8302/27/2025 12:30 PM EDT 02/27/2025 12:31 PM EDT Narrative Authorizing ProviderResult TypeResult StatusAmelie Boykin MDLABORATORY Final ResultPerforming OrganizationAddressCity/State/ZIP CodePhone Number [facility] [address] [place] [address], * (ABNORMAL) COMPLETE BLOOD COUNT AND DIFFERENTIAL (02/27/2025 12:30 PM EDT) ComponentValueRef RangeTest MethodAnalysis TimePerformed AtPathologist SignatureWBC6.523.70 - 11.00 k/uL02/27/2025 1:20 PM EDTCUN[facility] MAIN LABRBC4.333.90 - 5.20 m/uL10/ 1:20 PM EDTCMERC[facility] LAB Jcrulhqwzi38.711.5 - 15.5 g/dL02/27/2025 1:20 PM EDTCMERC[facility] LAB Hmhjuzhbis19.236.0 - 46.0 %02/27/2025 1:20 PM EDTCMERC[facility] LABMCV 90.580.0 - 100.0 fL02/27/2025 1:20 PM EDTCMERC[facility] YEOMWM32.626.0 - 34.0 pg02/27/2025 1:20 PM EDTCMERC[facility] DBMCCDM41.930.5 - 36.0 g/dL02/27/2025 1:20 PM EDTCMERC[facility] LABRDW-CV11.3(L)11.5 - 15.0 % 02/27/2025 1:20 PM EDTCUN[facility] MAIN LABPlatelet Hejcn774675 - 400 k/uL 02/27/2025 1:20 PM EDTCUN[facility] MAIN LABMPV9.89.0 - 12.7 fL02/27/2025 1:20 PM EDTCUN[facility] MAIN LABNeutrophils %44.4%02/27/2025 1:20 PM EDT [facility] [place] MAIN LABAbs Neut2.891.45 - 7.50 k/uL02/27/2025 1:20 PM EDT [facility] [place] MAIN LABLymphocytes %47.5%02/27/2025 1:20 PM EDTCUN[facility] MAIN LABAbs Lymph3.101.00 - 4.00 k/uL02/27/2025 1:20 PM EDTCMERC[facility] LABMonocytes %4.1%02/27/2025 1:20 PM EDTCMERC[facility] LAB Abs Mono0.27<0.87 k/uL02/27/2025 1:20 PM EDTCM[facility] LAB Eosinophils %3.1%02/27/2025 1:20 PM EDTCMERC[facility] LABAbs Eosin0.20 <0.46 k/uL02/27/2025 1:20 PM EDTCMERC[facility] LABBasophils %0.6% 02/27/2025 1:20 [facility] LABAbs Baso0.04<0.11 k/uL 02/27/2025 1:20 PM EDTCUN[facility] MAIN LABImmature Granulocytes %0.3% 02/27/2025 1:20 PM [facility] LABAbs Immature Gran<0.03<0.10 k/uL02/27/2025 1:20 PM EDTCUN[facility] MAIN LABNRBC0.0/100 WBC02/27/2025 1:20 PM EDAD[facility] MAIN LABAbsolute nRBC<0.01<0.01 k/uL02/27/2025 1:20 PM EDAD[facility] MAIN LABDiff GqqcUdww67/20/2025 1:20 PM EDT [facility] MAIN LABSpecimen (Source)Anatomical Location / Laterality Collection Method / VolumeCollection TimeReceived TimeBloodBLOOD SPECIMEN / UnknownVenipuncture / Upqzyfj7102/27/2025 12:30 PM EDT1 12:31 PM EDT Narrative Authorizing ProviderResult TypeResult StatusMahelen Boykin MDLABORATORY Final ResultPerforming OrganizationAddressCity/State/ZIP CodePhone Number [facility] [place] [facility] [address] [place] [address], documented in this encounter Visit Diagnoses Diagnosis Polyarthralgia- Primary Pain in joint, multiple sites Hand swelling Swelling of limb Fibromyalgia Mylagia and myositis, unspecified Intracranial hypertension Benign intracranial hypertension Allodynia Disturbance of skin sensation Recurrent infections Unspecified infectious and parasitic diseases Polyarthralgia Pain in joint, multiple sites Other localized visual field defect, bilateral- Primary documented in this encounter Care Teams Team MemberRelationshipSpecialtyStart DateEnd Yoan Morel MD [address] [place] [address] PCP - GeneralFamily Medicine06/06/24 Lloyd Sherwood MD [address] [place] [address] ReferringOphthalmology12/14/24documented as of this encounter
--- OUTSIDE RECORDS SUMMARY | 2025-02-27 12:20 | XMS_ITS | Encounter Summary ---
Author Organization [facility] Address [facility] [place] [address] Care Team Providers Care Sharepoint Solutions Developer Name Role Phone Yoan Morel MD Primary Care Provider [phone] Lloyd Sherwood MD Unavailable Source Comments In the event this information is protected by the Federal Confidentiality of Alcohol and Drug AbusePatient Records regulations: The Federal rules restrict any use of the information to criminally investigate or prosecute any alcohol or drug abuse patient.[facility] Reason for Referral * Diagnostic Procedure Only (Routine) - ClosedSpecialtyDiagnoses / Procedures Referred By ContactReferred To ContactXR IMAGING Diagnoses Polyarthralgia Procedures XR HAND GENERAL 3V PA/LAT/OBL BILATERAL RADEX HAND MINIMUM 3 VIEWS Amelie Boykin MD [address] [place] [address] Phone: tel: fax: XR IMAGING [place] [address] Referral IDStatusReasonStart DateExpiration DateVisits RequestedVisits [id number] Auto-Generated Referral / Reason for Visit * ReasonCommentsRadio Gen A21 * Diagnostic Procedure Only (Routine) - ClosedSpecialtyDiagnoses / Procedures Referred By ContactReferred To ContactXR IMAGING Diagnoses Polyarthralgia Procedures XR HAND GENERAL 3V PA/LAT/OBL BILATERAL RADEX HAND MINIMUM 3 VIEWS Amelie Boykin MD [address] [place] [address] Phone: tel: fax: XR IMAGING [id number] Referral IDStatusReasonStart DateExpiration DateVisits RequestedVisits [id number] Auto-Generated Referral / Encounter Details DateTypeDepartmentCare Team (Latest Contact Info)Udsnymgdedr11/20/2025 12:20 PM EDT - 02/27/2025 6:33 PM EDTHospital Encounter Radiology [address] [place] [id number] Polyarthralgia [M25.50] Discharge Disposition: Home Social History Tobacco UseTypesPacks/DayYears UsedDateSmoking Tobacco: Every DayCigarettes Smokeless Tobacco: Never Comments:1 pack every 2 days Alcohol UseStandard Drinks/WeekCommentsNot Currently0 (1 standard drink = 0.6 oz pure alcohol)[facility] UtilitiesAnswerDate RecordedIn the past 12 months has the [employer], gas, oil, or water Guidefitter threatened to shut off services in your home?No12/16/2024PHQ-2AnswerDate RecordedPHQ-2 lrmql458Hunger Vital Sign AnswerDate RecordedWithin the past 12 months, you worried that your food would run out before you got the money to buymore.Never true12/16/2024Within the past 12 months, the food you bought just didn't last and you didn't have money to get more.Never true12/16/2024PRAPARE - TransportationAnswerDate RecordedIn the past 12 months, has lack of transportation kept you from medical appointments or from getting medications?12/16/2024In the past 12 months, has lack of transportation kept you from meetings, work, or from getting things needed for daily living?12/16/2024Housing Stability Vital SignAnswerDate RecordedIn the last 12 months, was there a time when you were not able to pay the mortgage or rent on time?12/16/2024In the past 12 months, how many times have you moved where you were living?t any time in the past 12 months, were you homeless or living in a senior care (including now)?12/16/2024rea Deprivation IndexAnswerDate RecordedNational Score (1-100), lower number is lower risk82 09/29/2023State Score (1-10), lower number is lower ylnc994ata from: https://www.neighborhoodatlas.medicine.[facility].edu/. Last address used for [address]4CommentsNoSex and Gender Information ValueDate RecordedSex Assigned at WscodQgjfqh57/23/2023 3:16 PM ESTLegal Sex Zegzhv9807/03/2022 3:13 PM ESTGender LcaqhxwnNfvzad63/23/2023 3:16 PM ESTSexual OrientationNot on filedocumented as of this encounter Functional Status * Are you deaf or do you have serious difficulty hearing?AnswerDate of ZypbixgajxMueatiGv81/09/2025 10:21 AM Asher Luevano RN * Are you blind or do you have serious difficulty seeing, even when wearing glasses?AnswerDate of CivyltxbxxTbbdigLe39/09/2025 10:21 AM Asher Luevano, FAY * Do you have serious difficulty walking or climbing stairs?AnswerDate of LqcjslasvkKdgkqtBu62/09/2025 10:21 AM Asher Luevano, FAY * Do you have difficulty dressing or bathing?AnswerDate of AssessmentAuthorNo 12/17/2024 10:21 AM Asher Luevano, RN * Because of a physical, mental, or emotional condition, do you have difficulty doing errands alone such as visiting a doctor's office or shopping?AnswerDate of ChndlbitvoNtbovsKm73/09/2025 10:21 AM Asher Luevano RN documented as of this encounter Mental Status * Because of a physical, mental, or emotional condition, do you have serious difficulty concentrating, remembering, or making decisions?AnswerEntry Date AdtbwwMc91/09/2025 10:21 AM Asher Luevano RN documented in this encounter Medications at Time of Discharge MedicationSigDispense QuantityRefillsLast FilledStart DateEnd Date amoxicillin-clavulanate potassium (AUGMENTIN) 875-125 mg per tablet Take 1 tablet by mouth two times a day.02/13/2022 acetaZOLAMIDE (DIAMOX) 250 mg tablet Take 250 mg by mouth two times a day.09/30/2024 divalproex ER (DEPAKOTE ER) 500 mg 24 hr tablet Take 1 tablet by mouth two times a day. 180 tablet magnesium oxide (MAG-OX) 400 mg (241.3 mg magnesium) tablet Take 1 tablet by mouth once daily.12/27/2024 SINGULAIR 10 mg tablet Take 10 mg by mouth daily at bedtime.03/21/2024 dextroamphetamine-amphetamine (ADDERALL) 20 mg tablet Take 1 tablet by mouth two times a day./01/2026 hydrOXYzine pamoate (VISTARIL) 50 mg capsule Take 50 mg by mouth daily at bedtime. Cetirizine 10 mg cap mv,calcium,min/iron/folic/vitK (MULTI FOR HER ORAL) documented as of this encounter Progress Notes * Marj Johnson, RT(R) - 02/27/2025 3:00 PM EDT Radiology Service Progress Note PATIENT NAME: Karolina Nicole DATE OF SERVICE: February 27, 2025 TIME: 1:06 PM PATIENT IDENTITY VERIFICATION COMPLETED USING TWO (2) IDENTIFIERS: Name and Date of confirmedby patient verbally. FALL SCREENING: Has the patient had 2 falls in the last year or 1 fall with injury or currently using an Ambulatory Assistive Device (Walker, Cane, Wheelchair, Crutches, etc.)? No PATIENT GENDER DATA: Assigned female at . status: : No status:NO. PATIENT RELEVANT IMPLANT DATA REVIEWED: Not Applicable PATIENT PRESENTS WITH AN IMPLANTABLE OR ATTACHED ASSEMBLER ERECTOR: No RADIOLOGY DEPARTMENT: General X-ray: Exam(s) Completed: Upper Extremity X- Ray(s): Hand, bilateral PERIPHERAL IV DATA: Not applicable SIGNED BY: RT Alverto(R) February 27, 2025 1:06 PM documented in this encounter Plan of Treatment DateTypeDepartmentCare Team (Latest Contact Info)Ujhmtfytlxs63/06/2025 9:30 AM ESTOffice Visit [facility] [address] [place] [address] Nati Noble PA-C [address] [place] [address] Next Available New Ipdzhvr4003/23/2025 8:40 AM ESTOffice Visit Orthopaedics [address] [place] [address] Linda Malik PA-C [address] [place] [address] Dx: Carpal tunnel syndrome, bilateral [G56.03]04/18/2025 7:30 AM ESTOffice Visit [facility] Ophthalmology [address] [address] Lloyd Sherwood MD [address] [place] [address] Please set the patient up for a 2 month virtual visit for history of IIH 04/24/2025 2:00 PM ESTOffice Visit Functional Medicine [address] [address] Janina Lock APRN.DOUBLE REAMER OPERATOR [address] [phone] Multiple symptoms, lifestyle qoyldbdrkg76/17/2025 1:30 PM ESTOffice Visit Allergy [address] [facility] [place] [id number] Joyce Murguia MD [address] [place], [place] [phone] Follow up06/15/2025 1:45 PM ESTOffice Visit [facility] [address] [place] [address] [place] [address] [place], [place] [phone] Next Available New Patientdocumented as of this encounter Procedures Procedure NamePriorityDate/TimeAssociated DiagnosisCommentsXR HAND GENERAL 3V PA/LAT/OBL KREDSHtrqkib47/20/2025 1:05 PM EDT Polyarthralgia documented in this encounter Results * XR HAND GENERAL 3V PA/LAT/OBL BILATERAL (02/27/2025 1:05 PM EDT)Anatomical RegionLateralityModalityHandOtherSpecimen (Source)Anatomical Location / LateralityCollection Method / VolumeCollection TimeReceived Time02/27/2025 1:05 PM EDT Impressions 02/27/2025 2:20 PM EDT IMPRESSION: Normal. Mine Geologist: ANA ?? Transcribe Date/Time: Feb 27 2025 ??2:17P [...] No other significant abnormality. Procedure Note Provider, [facility] - 02/27/2025 * * *Final Report* * [...] No other significant abnormality. IMPRESSION IMPRESSION: Normal. Mine Geologist: ANA Transcribe Date/Time: Feb 27 2025 2:17P Dictated by : BEN HANNA MD This examination was interpreted and the report reviewed and electronically signed by: BEN HANNA MD on Feb 27 2025 2:18PM EST Authorizing ProviderResult TypeResult StatusNuryhelen Boykin MDRAD-PAMA Final Result documented in this encounter Visit Diagnoses Diagnosis Polyarthralgia Pain in joint, multiple sites Other localized visual field defect, bilateral- Primary documented in this encounter Care Teams Team MemberRelationshipSpecialtyStart DateEnd Date Yoan Morel MD [address] [place] [address] PCP - GeneralFamily Medicine06/06/24 Lloyd Sherwood MD [address] [place] [address] ReferringOphthalmology12/14/24documented as of this encounter
--- OUTSIDE RECORDS SUMMARY | 2025-02-27 18:34 | XMS_ITS | Encounter Summary ---
Author Organization [facility] Address [address] [place] [address] Care Team Providers Care Sign Board Erector Name Role Phone Yoan Morel MD Primary Care Provider + Tamara Sherwood MD Unavailable Source Comments In the event this information is protected by the Federal Confidentiality of Alcohol and Drug AbusePatient Records regulations: The Federal rules restrict any use of the information to criminally investigate or prosecute any alcohol or drug abuse patient.[facility] Reason for Referral * Transition of Care (Routine)SpecialtyDiagnoses / ProceduresReferred By Contact Referred To ContactPSYCHOLOGY [facility] [address] [place] [phone] Phone: tel: Referral IDStatusReasonStart DateExpiration DateVisits RequestedVisits Authorized PCP Requested Referral Reason for Visit * Auth/Cert (Routine)SpecialtyDiagnoses / ProceduresReferred By ContactReferred To ContactHOSP INPATIENT Diagnoses Blurry vision Headache BLURRY VISION Procedures [facility] IP/OBS CARE HIGH MDM 75 MINUTES HOSP MAIN [address] [place] [address] Phone: tel: Referral IDStatusRedanyelStroberto DateExpiration DateVisits RequestedVisits [id number] Encounter Details DateTypeDepartmentCare Team (Latest Contact Info)Lwixwbnujao11/20/2025 6:34 PM EDT - 03/01/2025 4:12 PM EDTHospital Encounter HOSP MAIN [id number] [id number] Brian Lopez DO [address] [place] [address] Katarina Alves MD [address] [place] [address] BLURRY VISION Discharge Disposition: Home Social History Tobacco UseTypesPacks/DayYears UsedDateSmoking Tobacco: Every DayCigarettes Smokeless Tobacco: Never Comments:1 pack every 2 days Alcohol UseStandard Drinks/WeekCommentsNot Currently0 (1 standard drink = 0.6 oz pure alcohol)[facility] UtilitiesAnswerDate RecordedIn the past 12 months has the [employer], gas, oil, or water Marketecture threatened to shut off services in your home?No12/16/2024PHQ-2AnswerDate RecordedPHQ-2 nrujt172Hunger Vital Sign AnswerDate RecordedWithin the past 12 [...] were you homeless or living in a jail (including now)?12/16/2024rea Deprivation IndexAnswerDate RecordedNational Score (1-100), lower number is lower risk82 09/29/2023State Score (1-10), lower number is lower mxvr251ata from: https://www.neighborhoodatlas.medicine.[facility].edu/. Last address used for o[address]/29/2023CommentsNoSex and Gender Information ValueDate RecordedSex Assigned at LcnreOsxqbb81/23/2023 3:16 PM ESTLegal Sex Niubuh9107/03/2022 3:13 PM ESTGender WcytlzaxTwawyh70/23/2023 3:16 PM ESTSexual OrientationNot on filedocumented as of this encounter Last Filed Vital Signs Vital SignReadingTime TakenCommentsBlood Urtlqtou509/801 3:57 PM EDT Mkygy059103/01/2025 3:57 PM ILKGmwaiixuclh28 ??C (98.6 ??F)03/01/2025 12:08 PM EDT Respiratory Gffq9542 12:08 PM EDTOxygen Xgynmgfanp35%03/01/2025 3:57 PM EDTInhaled Oxygen Concentration--Ukeqec77.7 kg (169 lb)03/01/2025 3:48 PM EDT Jppmbo000.5 cm (5' 2 )02/28/2025 11:04 AM EDTBody Mass Index30.9102/28/2025 11:04 AM EDTdocumented in this encounter Functional Status * Are you deaf or do you have serious difficulty hearing?AnswerDate of QtlrqhshzxVtejetHk39/22/2025 3:49 PM Adriane Davis RN * Are you blind or do you have serious difficulty seeing, even when wearing glasses?AnswerDate of RkwvuqfhzkIbtnfvMey90/22/2025 3:49 PM Adriane Davis RN * Do you have serious difficulty walking or climbing stairs?AnswerDate of NcypvpkwmoEjdwbjMk40/22/2025 3:49 PM Adriane Davis RN * Do you have difficulty dressing or bathing?AnswerDate of AssessmentAuthorNo 03/01/2025 3:49 PM Adriane Davis RN * Because of a physical, mental, or emotional condition, do you have difficulty doing errands alone such as visiting a doctor's office or shopping?AnswerDate of UcymycxrolAmitrfSx26/22/2025 3:49 PM Adriane Davis RN documented as of this encounter Mental Status * Because of a physical, mental, or emotional condition, do you have serious difficulty concentrating, remembering, or making decisions?AnswerEntry Date FjlukoMu20/22/2025 3:49 PM Adriane Davis RN documented in this encounter Discharge Summaries * Katarina Alves MD - 03/01/2025 7:46 AM EDT Images from the original note were not included. DISCHARGE SUMMARY NEUROLOGY PATIENT NAME: Karolina Nicole ADMISSION DATE: 02/27/2025 DISCHARGE DATE: 03/01/2025 ATTENDING: Katarina Alves MD Code Status: Full Code PCP: Yoan Morel MD Highest Readmission Risk Score: 11 The 30 day readmissions risk score is derived from an internally validated risk model which evaluates patient level characteristics, utilization history, medication orders and lab results up until the day of discharge. Patients with a score of 39 or above are considered highest risk for readmission. Specific patient level drivers will be listed at the bottom of the summary. FINAL DIAGNOSIS: visual changes Active Hospital Problems Diagnosis POA Headache Yes Obesity, Class I, BMI 30-34.9 Yes Adjustment disorder with anxiety Yes CONCHA (generalized anxiety disorder) Yes History of posttraumatic stress disorder (PTSD) Yes Blurred vision, bilateral Yes Papilledema Yes Myalgia Yes Low serum IgG for age Yes Resolved Hospital Problems No resolved problems to display. Transitions of Care Critical Issues: NEW BASELINE FOR PATIENT: return to prior baseline SPECIALIST FOLLOW-UP: - Allergy/Immunology follow up appointment: 03/17/24 at 9.45 AM LONG MEDICATION CHANGES: none LABS AND PROCEDURES PENDING AT DISCHARGE: CSF results HOSPITAL COURSE: No notes on file Karolina Nicole is a 39 yo F with a PMHx of IIH, chronic pain, fibromyalgia, and migraine, admitted for evaluation of new pain with extraocular movements and bilateral blurred vision. She presented asa direct admission from neuro- ophthalmology outpatient appointment with decline in visual acuity (20/40 OD, 20/60 OS) out of proportion to visual field deficits and nasal elevation of disc margins onfundoscopy and OCT. She was admitted for expedited workup of new symptoms with MRI brain with orbits and LP. No findings on neurologic examination that localize to the optic nerve, and MRI brain and orbits are normal with no evidence of acute pathology or inflammation. CSF routine analysis was normal. Pending results of CSF t[place]otte, cytology and oligoclonal bands. Dr. Alves and Ms. Nicole had an extended discussion regarding the patient's medical symptoms, including history of recurrent infections dating to childhood. Serum IgG and IgG1, IgG2 subclasses were low. Allergy/immunology follow-up was scheduled to continue to investigate this outpatient. Headache and Neuro- ophthalmology teams were updated. OPERATIONS DURING HOSPITALIZATION: None PROCEDURES DURING HOSPITALIZATION: Lumbar Puncture CONSULTING TEAMS DURING HOSPITALIZATION: None Treatment Team: Attending Provider: Katarina Alves MD Primary Service: GEN NEURO PATIENT CONDITION AT DISCHARGE: Stable DISCHARGE DISPOSITION: Home with Self Care Discharge Physical Exam: VITAL SIGNS: BP 113/68 Pulse 83 Temp 37 ??C (98.6 ??F) (Oral) Resp 18 Ht 157.5 cm (5' 2 ) Wt 77.1 kg (170 lb) SpO2 97% BMI 31.09 kg/m?? GENERAL: Alert, no distress, cooperative LUNGS: Lungs clear to auscultation, Good diaphragmatic excursion CARDIAC: Normal S1 and S2; no rubs, murmurs, or gallops ABDOMEN: Abdomen soft, non-tender, BS normal, No masses or organomegaly EXTREMITIES: Normal exam of the extremities, Extremities normal, no deformities, edema, clubbing orskin discoloration. Good capillary refill., No ulcers INFORMATION PROVIDED TO PATIENT: discharge instructions provided to the patient. DIET: Resume your pre-hospital diet ACTIVITY: Resume pre-hospital activity WOUND/SURGICAL SITE CARE: None ALLERGIES Allergen Reactions Adhesive Rash Latex Rash Levaquin [Levofloxa* Swelling Swelling tongue Morphine Angioedema Says tongue swells up, vomits, chest pain Nickel Rash, Unknown Oxycodone Rash Oxycodone-Acetamino* Rash Silk Other: See Comments Silk tape Sulfadiazine Rash Sulfamethoxazole-Tr* Swelling Adhesive Tape (Cammie* Hives, Itching DISCHARGE MEDICATION: Medication List CONTINUE taking these medications acetaZOLAMIDE 250 mg tablet Commonly known as: DIAMOX amoxicillin-clavulanate potassium 875-125 mg per tablet Commonly known as: AUGMENTIN Cetirizine 10 mg Cap dextroamphetamine-amphetamine 20 mg tablet Commonly known as: AdderalL Take 1 tablet by mouth two times a day. divalproex ER 500 mg 24 hr tablet Commonly known as: DEPAKOTE ER Take 1 tablet by mouth two times a day. hydrOXYzine pamoate 50 mg capsule Commonly known as: VISTARIL magnesium oxide 400 mg (241.3 mg magnesium) tablet Commonly known as: MAG-OX Take 1 tablet by mouth once daily. MULTI FOR HER PO SINGULAIR 10 mg tablet Generic drug: montelukast PLAN OF CARE: Plan of care discussed with Provider, RN, Patient FUTURE APPOINTMENTS: Future Appointments Date Time Provider Department Center 03/03/2025 8:30 AM Joyce Murguia MD [facility] 03/16/2025 9:30 AM Nati Noble PA-C [facility] 03/23/2025 8:40 AM Linda Malik PA-C [facility] 04/18/2025 7:30 AM Tamara Sherwood MD [facility] 04/24/2025 2:00 PM Janina Lock APRN.[employer] [facility] 06/15/2025 1:45 PM Ellen Martin MD [facility] To make an appointment, please call [phone]. Follow Up Orders Not Yet Scheduled None The patient's risk for 30-day readmission is determined using the following contributing factors: Predictive Model Details 11% (Low) Factor Value Calculated 03/01/2025 05:26 23% Observations (365d) 2 [facility] READMISSION RISK Model -16% Admission Provider Speciality NEUROLOGY -12% Admissions (90d) 0 -12% Admissions (365d) 0 -10% Lorrie Gan 3 -9% Admissions (60d) 0 -9% RDW (Max) 11.3 6% ED visits (365d) 1 -5% month FEBRUARY -% Sodium (Avg) 140 SIGNATURE: Lyric Bourgeois MD DATE: March 01, 2025 TIME: 7:[address] FRED STONE, SR. HOSPITAL STAFF: TEACHING PHYSICIAN NOTE OF PERSONAL INVOLVEMENT IN CARE INCLUDING MEDICAL DECISION MAKING I have reviewed the clinical details obtained and documented by Dr. Bourgeois. Karolina has not felt well since 2021. She has multiple symptoms that limit daily function. Blurred vision and concern for trace nasal edema prompted this admission. Symptoms and exam did not localize to the optic nerve and MRI brain/orbits was unremarkable. LP showed an opening pressure of 20 cm H20 and normal routine studies. Other studies are pending. Systemic inflammatory markers are normal. Serum IgG is slightly low. IgG subclasses were sent given the history of recurrent infections. Evaluation during this hospital stay does not support a neuroinflammatory etiology for her symptoms. She was hopeful that we could provide a unifying diagnosis for her symptoms and a treatment plan for improvement. Additional outpatient evaluation with other specialties is warranted. LFTs are modestly elevated and stable. This is most likely medication related as she recently restarted Depakote and has taken pain medication with acetaminophen (albeit sparingly). The Depakote has been helpful for head/neck pain and mood. She will continue this with close lab follow-up via primary care. I spent a total of 70 minutes on the date of service which included preparing to see the patient, lsqz-nv-zafm patient care, performing a medically appropriate examination, completing clinical documentation, and on counseling/ educating the patient and the family. Katarina Alves MD Staff, General Neurology March 01, 2025 7:07 PM documented in this encounter Discharge Instructions * Discharge Instr - Other Orders* Lyric Bourgeois MD - 03/01/2025 9:21 AM EDT My Hospital Stay and Summary This is a summary of your hospital stay. Please read it carefully and share it with your family andhealthcare providers. Date of Admission: 02/27/2025 Date of Discharge: 03/01/2025 Where I Will be Going after Discharge: Home with Self Care My Condition at Discharge: Stable My Doctors and Medical Team: My Main Hospital Doctor: Katarina Alves MD My Primary Care Physician (Family Doctor): Yoan Morel MD Treatment Team: Attending Provider: Katarina Alves MD Primary Service: GEN NEURO The Reason I was in the Hospital/Main Diagnosis: Headache, visual changes Other Problem(s)/Diagnosis: Principal Problem: Headache Active Problems: Obesity, Class I, BMI 30-34.9 Adjustment disorder with anxiety CONCHA (generalized anxiety disorder) History of posttraumatic stress disorder (PTSD) Blurred vision, bilateral Papilledema Myalgia Low serum IgG for age Resolved Problems: * No resolved hospital problems. * Operations Performed While in the Hospital: None Important Tests/Procedures: Lumbar Puncture Summary of What Happened When in the Hospital: You were directly admitted from your outpatient neuro-ophthalmology appointment with new pain with eye movements and blurry vision. We evaluated these findings with MRI brain and orbits as well as lumbar puncture. Your neurologic examination was normal with no evidence of pathology localizing to the optic nerve. Your MRI was also normal, with no findings suggestive of inflammation around the optic nerves. Your full CSF results are still pending, however routine CSF analysis is normal. You were also scheduled a follow up appointment with allergy/immunology to evaluate your low serum IgG level. Meds to Bed: Does the patient want to use Meds to Bed? No, No new prescriptions. Instructions for My Care at Home or Healthcare Facility These instructions explain what you or your pet care assistant need to do to continue your care at home or at another healthcare facility Please go over these instructions with your nurse and pet care assistant. If you are not sure about something, please ask. Additional Health Information I Need to Know After I Leave the Hospital: No additional instructions. - You have follow up labs (repeat comprehensive metabolic panel) scheduled in 1 week. Please present to any [facility] lab to get these tests done. Pain Management: Please avoid tylenol (acetaminophen) for 1 week following discharge. Please use advil/aleve for headache pain relief instead. Wound Care/Surgical Site Care: None Supplies or Equipment I Need: None Diet (What I Can Eat): Resume your pre-hospital diet Activity and Exercise (When I can drive, return to work): Resume pre-hospital activity Follow-Up Appointment Reminders: (A list of any scheduled appointments is at the end of this document) Future Appointments Date Time Provider Department Center 03/16/2025 9:30 AM [facility] 03/17/2025 10:00 AM Yas Hinds MD [facility] 03/23/2025 8:40 AM Linda Malik PA-C [facility] 04/18/2025 7:30 AM [facility] 04/24/2025 2:00 PM Janina Lock APRN.[employer] [facility] 06/15/2025 1:45 PM Ellen Martin MD [facility] To make an appointment, please call [phone]. Follow Up Orders Not Yet Scheduled None Test Results Not Available at this Time: Please follow up your CSF results with Dr. Sherwood. The pending CSF results will be available in yourMyChart. You will require follow up labs (CMP) in 1 week. Electronically Signed: Lyric Bourgeois MD documented in this encounter Medications at Time [...] as of this encounter Progress Notes * Laurel Dubois PT, DPT - 03/01/2025 9:23 AM EDT OCCUPATIONAL THERAPY COMMUNICATION NOTE SERVICE DATE: 03/01/2025 [facility]OM: [facility] Occupational therapy consult received. Chart reviewed. No acute skilled occupational therapy needs identified. Pt with a documented Nursing 6 Clicks score of 23 or 24 indicating that the patient is supervised or independent with all mobility. No acute cognitive, vision, or UE deficits identified inchart. Will discontinue Occupational Therapy Consult at this time. Please re-consult if the patienthas a change of condition and develops mobility, ADL or cognitive deficits that require skilled therapy. Refer to outpatient therapy if there are further concerns. Thank you. SIGNATURE: Laurel Morales Asp, PT, DPT PATIENT NAME: Karolina Nicole DATE: March 01, 2025 TIME: 9:24 AM documented in this encounter H&P Notes * Katarina Alves MD - 02/27/2025 7:50 PM EDT H&P NEUROLOGY SERVICE DATE: 02/27/2025 SERVICE TIME: 1939 REASON FOR ADMISSION: Pain with EOM Subjective HISTORY OF PRESENT ILLNESS: Karolina Nicole is a 39-year-old female with a history of IIH, chronic pain, fibromyalgia, and migraine, admitted for evaluation of new pain with extraocular movements and bilateral blurred vision. She was diagnosed with IIH in 2021 after right eye vision loss and a lumbar puncture (OP 34 cm H?O). She achieved a 50 lb weight loss on Diamox and Ozempic; Diamox was discontinued in 2022, restartedin 2023, and again stopped in January 2025 2 and a half weeks prior to a lumbar puncture (OP 16 cm), after which it was discontinued. Four days ago she developed pain with eye movements in all directions, followed by three days of blurred vision (binocular and monocular, unchanged with either eye closed). She denies diplopia or color changes. She also reports new bilateral hand swelling (seen by Rheumatology today), recent hair loss, and ongoing generalized weakness. She describes frequent tension-type headaches unchanged from baseline, tinnitus for two years, and recurrent infections over the past two years (COVID, flu, strep). Does not feel like her current symptoms are attributed to IIH. On 02/27/25 ophthalmology follow-up, she reported persistent pressure and eye pain, pulsatile tinnitus bilaterally, and recent 14 lb weight gain since December while off work. Exam showed decline in best-corrected VA to 20/40 OD and 20/60 OS, disproportionate to visual field deficits (trace blind spot enlargement OU). Interval development of nasal optic disc edema OU was suspected; B-scan was consistent with intracranial hypertension. Sensorimotor exam showed full motility with orthophoria. Pertinent History 2021: Initial diagnosis, OP 34 cm, vision loss OD. 08/2023: LP OP 31 ? Diamox restarted (Dr. Davidson). 02/2024: Weight regain, recurrence of symptoms. 06/2024: Stable exam, no active edema (Dr. Sherwood, on Diamox). 09/2024: Recurrent symptoms after estradiol; LP OP 27. No papilledema; symptoms felt migraine-related ? treated with DHE infusion, VPA, started anti-CGRP therapy. 10/2024: Continued VPA 500 mg QHS; offered atogepant vs Ajovy. 12/2024: Dr. Sherwood noted worsening neck pain, fatigue, dysphagia; MG panel ordered. Still pulsatile tinnitus. On Diamox 500 mg BID, labs showed metabolic acidosis. MRV: bilateral transverse sinus narrowing. 12/2024: Admitted for palpitations. Neurology recommended migraine therapy optimization (Botox, ONB,CGRP, Pamelor, muscle relaxants). 12/2024: Neurosurgery/NeuroIR evaluated for venous sinus stenting. Angiography/manometry showed moderate bilateral transverse sinus stenosis (8 mmHg R, 7 mmHg L). No papilledema. Concluded stenting not indicated; advised neurosurgical evaluation for CSF shunt. Other Medical History: Chronic migraine (poor response to Botox, partially improved with CGRP therapy and VPA). Chronic pain/fibromyalgia. Prior alcohol abuse disorder, sober ??2 years. The following problems are present on admission at this time: Continue current outpatient treatment plan and current medications for these conditions, except where otherwise noted. 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 Tobacco Use Smoking status: Every Day Packs/day: 0.50 Types: Cigarettes Smokeless tobacco: Never Tobacco comments: 1 pack every 2 days Vaping Use Vaping status: Never Used Substance and Sexual Activity Alcohol use: Not Currently Drug use: Not Currently Current Facility-Administered Medications Medication Dose Route Frequency tropicamide 1 % 1 drop (MYDRIACYL) 1 drop BOTH EYES As Directed PHENYLephrine 2.5 % 1 drop (AK-DILATE, ANTHONY-SYNEPHRINE) 1 drop BOTH EYES As Directed fluorescein-benoxinate 0.3-0.4 % 1 drop (FLURESS) 1 drop BOTH EYES As Directed proparacaine 0.5 % 1 drop (ALCAINE) 1 drop BOTH EYES As Directed No current facility-administered medications on file prior to encounter. Current Outpatient Medications on File Prior to Encounter Medication Sig divalproex ER (DEPAKOTE ER) 500 mg 24 hr tablet Take 1 tablet by mouth two times a day. magnesium oxide (MAG-OX) 400 mg (241.3 mg magnesium) tablet Take 1 tablet by mouth once daily. SINGULAIR 10 mg tablet Take 10 mg by mouth daily at bedtime. dextroamphetamine-amphetamine (ADDERALL) 20 mg tablet Take 1 tablet by mouth two times a day. hydrOXYzine pamoate (VISTARIL) 50 mg capsule Take 50 mg by mouth daily at bedtime. Cetirizine 10 mg cap mv,calcium,min/iron/folic/vitK (MULTI FOR HER ORAL) ALLERGIES Allergen Reactions Adhesive Rash Latex Rash Levaquin [Levofloxa* Swelling Swelling tongue Morphine Angioedema Says tongue swells up, vomits, chest pain Nickel Rash, Unknown Oxycodone Rash Oxycodone-Acetamino* Rash Silk Other: See Comments Silk tape Sulfadiazine Rash Sulfamethoxazole-Tr* Swelling Adhesive Tape (Cammie* Hives, Itching Objective PHYSICAL EXAM: Neurological: Mental Status: Alert, oriented to person, place and time and Follows commands. Cranial Nerves: PERRL, visual lugo intact to confrontation, extraocular movements intact, facial sensation intact, face symmetric, no facial droop or ptosis, hearing intact to finger rub bilaterally, no dysarthria, palate elevate symmetrically, tongue protrudes midline, and shoulder shrug intact and symmetric. Pain with EOM in all directions. Motor: muscle strength 5/5 both upper and lower extremities, no drift, normal tone. Individual Muscle Group Testing: Upper Extremity Right Left Shoulder ABd (Axil C5-C6) 5/5 5/5 Elbow Flx (MusCtn C5/C6) 5/5 5/5 Elbow Ext (Radial C7) 5/5 5/5 Wrist Flx (Md/Ul C6-T1) 5/5 5/5 Wrist Ext (Radial C6-C8) 5/5 5/5 Lower Extremity Right Left Hip Flx (Lum Plx L1/L2/L3) 5/5 5/5 Hip Ext (Sciatic L5-S1) 5/5 5/5 Knee Flx (Sciatic L5/S1) 5/5 5/5 Knee Ext (Femoral L3/L4) 5/5 5/5 Dorsiflexion (Peroneal L5) 5/5 5/5 Plantar Flx (Tibial S1) 5/5 5/5 Reflexes: Pal's absent, Biceps: Left 2+; Right 2+, Brachioradialis: Left 2+; Right 2+, Patellar: Left 2+; Right 2+, and Achilles: Left 2+; Right 2+. Sensation: intact to vibration, light touch, pinprick Coordination: Finger-to- nose-finger intact bilaterally and Enrs-yx-pvsy intact bilaterally. Gait: not assessed. LABS/DATA: Most recent labs and imaging results reviewed. Pertinent findings: CBC: Recent Labs 02/27/25 1230 WBC 6.52 HB 13.7 HCT 39.2 PLT 297 MCV 90.5 RDWCV 11.3* NEUTP 44.4 ABSNEUT 2.89 LYMPHP 47.5 MONOP 4.1 EODINP 3.1 BASOP 0.6 General Chemistry: Recent Labs 02/27/25 1230 NA 141 K 3.9 CHLOR 103 CO2 22 BUN 14 CREAT 0.93 GLUC 137* CA 9.4 ANION 16* } Coagulation: Urinalysis: Invalid input(s): UOSM Inflammatory: Recent Labs 02/27/25 1230 IGG 670* Assessment & Plan Karolina Nicole is a 39-year-old female with a history of IIH, chronic migraine, fibromyalgia, andchronic pain, admitted for further evaluation of new ocular symptoms. She reports four days of painwith extraocular movements in all directions and three days of bilateral blurred vision. These symptoms are distinct from her prior IIH flares. She also notes new bilateral hand swelling, hair loss, and systemic complaints including recurrent infections and generalized weakness. On exam today, visual acuity and visual lugo were decreased at her outpatient ophthalmology visit, with interval development of trace nasal optic disc edema OU and B-scan features suggestive of intracranial hypertension. Remainder of neurological exam currently normal and no focal neurologic deficits. Given her new visual complaints, discordance between symptoms and exam findings, and recent IIH history, there is concern for recurrent or evolving intracranial hypertension versus alternative orbital/neurologic pathology. Differential also includes orbital inflammatory process, demyelinating disease, autoimmune/connective tissue disorder (given new systemic features and rheumatology involvement). She is being admitted for MRI brain and orbits with contrast to evaluate for optic nerve pathology,orbital inflammation, demyelination, or other structural causes, and possible lumbar puncture with opening pressure. Plan: #Pain with EOM #trace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 GKJPTJoqkakq31/21/2025 10:22 PM EDTOLIGOCLONAL BAND BLDRoutine 02/28/2025 10:22 PM EDTFLOW CYTOMETRY FOR LEUKEMIA/LYMPHOMA (FCLL) PERFORMABLE Hnrvxdp3502/28/2025 4:43 PM EDT FLOW CYTOMETRY FOR LEUKEMIA/LYMPHOMA (FCLL)Nseyrix0202/28/2025 4:43 PM EDT CSF MANUAL ZXBUByskste25/21/2025 4:43 PM EDT CYTOLOGY NON-EKLBededhc81/21/2025 4:43 PM EDT OLIGOCLONAL CSF TAKUewjwuh61/21/2025 4:43 PM EDTTOURTELLOTTE CSFRoutine 02/28/2025 4:43 PM EDT BACTERIAL CULTURE AND GRAM STAIN, CEREBROSPINAL FLUID (CSF)Cnvgawx4502/28/2025 4:43 PM EDTTOURTELLOTTE MLASxpnqjd60/ 4:43 PM EDT PROTEIN HABOipufne14/21/2025 4:43 PM EDT GLUCOSE PBMTycvhvo56/21/2025 4:43 PM EDT CSF CELL BWMGRFsurjct42/21/2025 4:43 PM EDT CSF ROUT TWWEHGTDZxzbthv47/21/2025 4:43 PM EDT MRI ORBIT WO/W KOXNFDajrkoo86/21/2025 8:15 AM EDT SEDIMENTATION RATEAdd-on02/28/2025 6:19 AM EDT COMPREHENSIVE METABOLIC KKKGSJeonbci70/21/2025 6:19 AM EDT CBC + MNUQYbejysy76/21/2025 6:19 AM EDT C-REACTIVE PROTEIN (CRP)Add-on02/28/2025 6:19 AM EDT IGG SUBCLASS 1,2,3,4Add-on02/27/2025 12:30 PM EDT documented in this encounter Results * (ABNORMAL) COMPLETE BLOOD COUNT AND DIFFERENTIAL (03/01/2025 4:31 AM EDT) ComponentValueRef RangeTest MethodAnalysis TimePerformed AtPathologist SignatureWBC6.413.70 - 11.00 k/uL03/01/2025 5:07 [facility]TC[facility] LABRBC4.383.90 - 5.20 m/uL03/01/2025 5:07 AM EDTCLEVEL[facility] LAB Hygeponzwo12.911.5 - 15.5 g/dL03/01/2025 5:07 AM [facility]TCS[facility] Mipdfkztqt14.136.0 - 46.0 %03/01/2025 5:07 AM EDTCLEVELAND [facility]IC MAIN LABMCV 91.680.0 - 100.0 fL03/01/2025 5:07 AM [facility] NRAQUE32.726.0 - 34.0 pg03/01/2025 5:07 [facility] TXAKMAW03.730.5 - 36.0 g/dL03/01/2025 5:07 AM [facility] LABRDW-CV11.1(L)11.5 - 15.0 % 03/01/2025 5:07 AM [facility] LABPlatelet Txxks957776 - 400 k/uL 03/01/2025 5:07 AM EDTCMERC[facility] LABMPV9.69.0 - 12.7 fL03/01/2025 5:07 AM EDS[facility] MA[facility] LABNeutrophils %30.8%03/01/2025 5:07 AM EDT [facility] LABAbs Neut1.971.45 - 7.50 k/uL03/01/2025 5:07 AM EDT [facility] MA[facility] LABLymphocytes %55.2%03/01/2025 5:07 AM EDSUM[facility] MA[facility] LABAbs Lymph3.541.00 - 4.00 k/uL03/01/2025 5:07 AM [facility] LABMonocytes %8.4%03/01/2025 5:07 AM [facility]DS[facility] LAB Abs Mono0.54<0.87 k/uL03/01/2025 5:07 AM [facility] Eosinophils %4.7%03/01/2025 5:07 AM [facility]TCUN[facility] LABAbs Eosin0.30 <0.46 k/uL03/01/2025 5:07 AM EDTCUN[facility] MA[facility] LABBasophils %0.6% 03/01/2025 5:07 AM [facility]TCUN[facility] LABAbs Baso0.04<0.11 k/uL 03/01/2025 5:07 AM [facility]TCUN[facility] MA[facility] LABImmature Granulocytes %0.3% 03/01/2025 5:07 AM EDTCUN[facility] LABAbs Immature Gran<0.03<0.10 k/uL03/01/2025 5:07 AM [facility]TCUN[facility] MA[facility] LABNRBC0.0/100 WBC03/01/2025 5:07 AM [facility] MAIN LABAbsolute nRBC<0.01<0.01 k/uL03/01/2025 5:07 AM [facility] LABDiff PmnhNmba18/22/2025 5:07 AM EDT [facility] MA[facility] LABSpecimen (Source)Anatomical Location / Laterality Collection Method / VolumeCollection TimeReceived TimeBloodBLOOD SPECIMEN / UnknownVenipuncture / Pyxbitt1903/01/2025 4:31 AM EDT1 4:57 AM EDT Narrative Authorizing ProviderResult TypeResult StatusRobert Jessica DOLABORATORYFinal ResultPerforming OrganizationAddressCity/State/ZIP CodePhone Number [facility] [address] * (ABNORMAL) COMPREHENSIVE METABOLIC PANEL (03/01/2025 4:31 AM EDT)Component ValueRef RangeTest MethodAnalysis TimePerformed AtPathologist Signature Protein, Total6.36.3 - 8.0 g/dL03/01/2025 6:36 AM [facility] Albumin4.23.9 - 4.9 g/dL03/01/2025 6:36 AM [facility] Calcium, Total9.48.5 - 10.2 mg/dL03/01/2025 6:36 AM [facility] LABBilirubin, Total0.40.2 - 1.3 mg/dL03/01/2025 6:36 AM [facility] MA[facility] LABAlkaline Ownpfbvuass0465 - 123 U/L1 6:36 AM [facility] GALWDB43(H)13 - 35 U/L1 6:36 AM [facility] KKXMGX60(H)7 - 38 U/L1 6:36 AM [facility] JQVEuxkzow65 74 - 99 mg/dL03/01/2025 6:36 AM [facility] LABComment: The [place] [employer] (ADA) provides guidance for cutoff values for fasting glucose andrandom glucose. The ADA defines fasting as no [...] Standards of Medical Care in Diabetes 2016, [place] [employer]. Diabetes Care. 2016.39(Suppl 1). EAB775 - 21 mg/dL03/01/2025 6:36 AM [facility] LABCreatinine0.88 0.58 - 0.96 mg/dL03/01/2025 6:36 AM [facility] NOTBjmqin792107 - 144 mmol/L1 6:36 AM [facility] LABPotassium3.93.7 - 5.1 mmol/L1 6:36 AM [facility] QGWImgdlzmj49419 - 107 mmol/L 03/01/2025 6:36 AM [facility] AQUVF98585 - 30 mmol/L1 6:36 AM [facility] LABAnion Yzm941 - 15 mmol/L1 6:36 AM [facility] LABEstimated Glomerular Filtration Rate86>=60 mL/min/1.73m 03/01/2025 6:36 AM [facility] LABComment:Estimated Glomerular Filtration Rate (eGFR) is calculated using the 2020 CKD-EPI creatinine equation. This equation utilizes serum creatinine, sex, and age as parameters. The creatinine assay has traceable calibration to isotope dilution-mass spectrometry. Refer to KDIGO guidelines for clinical interpretation. In patients with unstable renal function, e.g. those with acute kidney injury, the eGFRmay not accurately reflect actual GFR.Specimen (Source)Anatomical Location / LateralityCollection Method / VolumeCollection TimeReceived TimeBloodBLOOD SPECIMEN / UnknownVenipuncture / Cgduwqy1003/01/2025 4:31 AM EDT1 4:56 AM EDT Narrative Authorizing ProviderResult TypeResult StatusRobert Jessica DOLABORATORYFinal ResultPerforming OrganizationAddressCity/State/ZIP CodePhone Number [facility] [address] [place] [address], * OLIGOCLONAL BAND BLD (02/28/2025 10:22 PM EDT)Specimen (Source)Anatomical Location / LateralityCollection Method / VolumeCollection TimeReceived Time BloodBLOOD SPECIMEN / UnknownVenipuncture / Ounbsqo5302/28/2025 10:22 PM EDT 02/28/2025 10:49 PM EDT Narrative Authorizing ProviderResult TypeResult StatusKatarina Alves MDLABORATORYFinal ResultPerforming OrganizationAddressCity/State/ZIP CodePhone Number [facility] [address] [place] [address], * TOURTELLOTTE BLOOD (02/28/2025 10:22 PM EDT)Specimen (Source)Anatomical Location / LateralityCollection Method / VolumeCollection TimeReceived Time BloodBLOOD SPECIMEN / UnknownVenipuncture / Jcldwep6502/28/2025 10:22 PM EDT 02/28/2025 10:49 PM EDT Narrative Authorizing ProviderResult TypeResult StatusKatarina Alves MDLABORATORYFinal ResultPerforming OrganizationAddressCity/State/ZIP CodePhone Number [facility] [address] [place] [address], * CSF MANUAL DIFF (02/28/2025 4:43 PM EDT)ComponentValueRef RangeTest Method Analysis TimePerformed AtPathologist SignatureDiff Total, ZKO062kozqf counted 03/01/2025 1:21 PM EDTCLEVELAND CLINIC MAIN LABLymph%, TVA2631 - 90 % 03/01/2025 1:21 PM EDTCLEVELAND CLINIC MAIN LABMonocytes/Macrophages%, LLJ8332 - 50 %03/01/2025 1:21 PM EDTCLEVELAND CLINIC MAIN LABSpecimen (Source) Anatomical Location / LateralityCollection Method / VolumeCollection Time Received TimeCerebrospinal FluidCEREBROSPINAL FLUID SPECIMEN / Unknown 02/28/2025 4:43 PM EDT1 4:56 PM EDT Narrative Authorizing ProviderResult TypeResult StatusKatarina Alves MDLABORATORYFinal ResultPerforming OrganizationAddressCity/State/ZIP CodePhone Number [facility] [address] [place] [address], * FLOW CYTOMETRY FOR LEUKEMIA/LYMPHOMA (FCLL) PERFORMABLE (02/28/2025 4:43 PM EDT)ComponentValueRef RangeTest MethodAnalysis TimePerformed AtPathologist SignatureFlow Cytometry Order StatusA??sample was received for potential flow cytometry studies. Following morphologic review, flow cytometric studies will be ordered by the hematopathologist if testing is indicated.03/01/2025 2:25 PM [facility] LABSpecimen (Source)Anatomical Location / Laterality Collection Method / VolumeCollection TimeReceived TimeCerebrospinal Fluid CEREBROSPINAL FLUID SPECIMEN / Znamdpk7102/28/2025 4:43 PM EDT1 4:56 PM EDT Narrative Authorizing ProviderResult TypeResult StatusMaremerson Alves MDLABORATORYFinal ResultPerforming OrganizationAddressCity/State/ZIP CodePhone Number [facility] [address] [place] [phone], * (ABNORMAL) TOURTELLOTTE CSF (02/28/2025 4:43 PM EDT)ComponentValueRef Range Test MethodAnalysis TimePerformed AtPathologist SignatureImmunoglobulin G, CSF 1.61.0 - 3.0 mg/dL03/01/2025 11:31 AM [facility] MA[facility] LABAlbumin, CSF 24.410.0 - 30.0 mg/dL03/01/2025 11:31 AM [facility] LABCSF IgG / Albumin Ratio0.070.06 - 0.171 11:31 AM [facility] PROFESSOR OF KINESIOLOGY IgG Synthesis0.00.0 - 3.0 mg/day03/01/2025 11:31 AM [facility] LABIgG Index0.440.00 - 0.6103/01/2025 11:31 AM [facility] LABIgG, Dpaej622(L)700 - 1,600 mg/dL03/01/2025 11:31 AM [facility] MA[facility] LABAlbumin, Serum4,3003,900 - 4,900 mg/dL03/01/2025 11:31 AM EDTCMERCER [facility] MAIN LABSpecimen (Source)Anatomical Location / LateralityCollection Method / VolumeCollection TimeReceived TimeCerebrospinal FluidCEREBROSPINAL FLUID SPECIMEN / Exadfpi0902/28/2025 4:43 PM EDT1 4:56 PM EDT Narrative Authorizing ProviderResult TypeResult StatusKatarina Alves MDLABORATORYFinal ResultPerforming OrganizationAddressCity/State/ZIP CodePhone Number [facility] [address] [place] [address], * OLIGOCLONAL CSF IGG (02/28/2025 4:43 PM EDT)Specimen (Source)Anatomical Location / LateralityCollection Method / VolumeCollection TimeReceived Time Cerebrospinal FluidCEREBROSPINAL FLUID SPECIMEN / Nntwskx9002/28/2025 4:43 PM EDT1 4:56 PM EDT Narrative Authorizing ProviderResult TypeResult StatusKatarina Alves MDLABORATORYFinal ResultPerforming OrganizationAddressty/State/ZIP CodePhone Number [facility] [address] [place] [address], [place] * GLUCOSE CSF (02/28/2025 4:43 PM EDT)ComponentValueRef RangeTest MethodAnalysis TimePerformed AtPathologist SignatureGlucose, ADH7782 - 70 mg/dL02/28/2025 6:36 PM [facility] LABComment: Lumbar CSF glucose values of healthy patients are approximately 60% of the plasma values and must always be compared with a concurrently measured plasma value for adequate clinical interpretation. References: 1. Glucose HK (GLUC3) [package insert V 12.0 Syriac]. [employer], [place]. September 2015. 2. Tessa HClark, Jojo, H. (2015). Chapter 7: Glucose and Lactate. FClark Cordero al.(eds.), Cerebrospinal Fluid in Clinical Neurology. [place]: [employer]. Specimen (Source)Anatomical Location / LateralityCollection Method / Volume Collection TimeReceived TimeCerebrospinal FluidCEREBROSPINAL FLUID SPECIMEN / Mwlpyqa0402/28/2025 4:43 PM EDT1 4:56 PM EDT Narrative Authorizing ProviderResult TypeResult StatusMary A Alves MDLABORATORYFinal ResultPerforming OrganizationAddressCity/State/ZIP CodePhone Number [facility] [address] [place] [phone], * PROTEIN CSF (02/28/2025 4:43 PM EDT)ComponentValueRef RangeTest MethodAnalysis TimePerformed AtPathologist SignatureProtein, YSJ5310 - 45 mg/dL02/28/2025 6:36 PM EDTCLEVELAND CLINIC MAIN LABSpecimen (Source)Anatomical Location / LateralityCollection Method / VolumeCollection TimeReceived TimeCerebrospinal FluidCEREBROSPINAL FLUID SPECIMEN / Qbpfzoq0902/28/2025 4:43 PM EDT1 4:56 PM EDT Narrative Authorizing ProviderResult TypeResult StatusKatarina Alves MDLABORATORYFinal ResultPerforming OrganizationAddressCity/State/ZIP CodePhone Number [facility] [address] [place] [phone], [place] * CSF CELL COUNT (02/28/2025 4:43 PM EDT)ComponentValueRef RangeTest Method Analysis TimePerformed AtPathologist SignatureCSF Tube NumberSterile Container 02/28/2025 7:40 PM EDTCLEVELAND CLINIC MAIN LABColor, CSFColorlessColorless 02/28/2025 7:40 PM EDTCLEVELAND CLINIC MAIN LABClarity, CSFClearClear 02/28/2025 7:40 PM EDTCLEVELAND CLINIC MAIN LABSupernatant Color, CSFNot BezzdeadgYbtarnglc68/21/2025 7:40 PM EDTCLEVELAND CLINIC MAIN LABSupernatant Clarity, CSFNot CfpgtcmkkYffaj15/21/2025 7:40 PM EDTCLEVELAND [facility]IC [facility] LAB RBC, CSF00 - 5 cells/uL02/28/2025 7:40 PM EDTCLEVELAND CLINIC MAIN LABTotal Nucleated Cells, CSF10 - 5 cells/uL02/28/2025 7:40 PM EDTCLEVELAND CLINIC MAIN LABSpecimen (Source)Anatomical Location / LateralityCollection Method / Volume Collection TimeReceived TimeCerebrospinal FluidCEREBROSPINAL FLUID SPECIMEN / Uzypwbc7102/28/2025 4:43 PM EDT1 4:56 PM EDT Narrative Authorizing ProviderResult TypeResult StatusMaremerson A Alves MDLABORATORYFinal ResultPerforming OrganizationAddressCity/State/ZIP CodePhone Number [facility] [address] [place] [address], * CYTOLOGY NON-TAFE LECTURER (02/28/2025 4:43 PM EDT)ComponentValueRef RangeTest Method Analysis TimePerformed AtPathologist SignatureCase ReportMedical Cytology Report ? Case: [id number] ? Authorizing Provider: ??Katarina Alves MD ? Collected: ? 02/28/2025 04:43 PM ? Ordering Location: ? HOSP MAIN G071 ? Received: ?02/28/2025 06:16 PM ? Pathologist: ? Neha Copeland MD ? Specimen: ?Cerebrospinal Fluid ? 03/02/2025 1:43 PM EDTFAIRVIEW LABORATORYFINAL DIAGNOSISA - Cerebrospinal Fluid Negative for malignant cells. 03/02/2025 1:43 PM EDTCLEVELWELIA [facility] LAB at [address] EDTGross DescriptionA. Cerebrospinal Fluid 6 cc clear colorless fluid . ThinPrep prepared. 03/02/2025 1:43 PM EDCOMMUNITY [facility] LABClinical HistoryConcerns for a lymphoproliferative obhonoav38/23/2025 1:43 PM [facility] Performing LabTechnical component, offset label rewinder screening performed at: [facility], [address] [place] [id number] CLIA: [id number] Diagnostic interpretation performed at: [facility], [address] [place] [address] [id number] CLIA# [id number] Emulsion Operator: Cayetano Reno MD 03/02/2025 1:43 PM [facility] LABORATORYDisclaimerLaboratory Developed Test (LDT) Disclaimer: Performance characteristics of immunohistochemical, immunofluorescent, and chromogenic in-situ hybridization tests have been determined by the performing laboratory within the [facility] Department of Pathology and Laboratory Medicine ([facility], [facility], [facility], [facility], [facility], [facility], or [facility]) in a manner consistent with CLIA requirements. One or more of these tests may not have been cleared or approved by the FDA. The [facility] Department of Pathology and Laboratory Medicineis regulated under CLIA as qualified to perform high-complexity testing. These tests are used for clinical purposes. These should not be regarded as investigational or for research. Positive and negative controls stain appropriately.03/02/2025 1:43 PM EDT [facility] LABSpecimen (Source)Anatomical Location / Laterality Collection Method / VolumeCollection TimeReceived TimeCerebrospinal Fluid CEREBROSPINAL FLUID SPECIMEN / Wcqvyqu5902/28/2025 4:43 PM EDT1 6:16 PM EDT Narrative Authorizing ProviderResult TypeResult StatusKatarina Alves MDCYTOLOGYFinal Result Performing OrganizationAddressCity/State/ZIP CodePhone Number [facility] [address] [place] [address], [facility] [address] [place] [address], * MRI ORBIT WO/W IVCON (02/28/2025 8:15 AM EDT)Anatomical RegionLaterality ModalitySkullMagnetic ResonanceSpecimen (Source)Anatomical Location / LateralityCollection Method / VolumeCollection TimeReceived Time02/28/2025 8:15 AM EDT Impressions 02/28/2025 8:22 AM EDT IMPRESSION: Unremarkable appearance of the orbits.. Safety Security Officer: ANA ?? Transcribe Date/Time: Feb 28 2025 ??8:16A Dictated by : TAMARA MONTEIRO MD This examination was interpreted and the report reviewed and electronically signed by: TAMARA MONTEIRO MD on Feb 28 2025 ??8:20AM ??EST Narrative 02/28/2025 8:22 AM EDT * * *Final Report* * * DATE OF EXAM: Feb 28 2025 ??8:15AM ?? QBM ?? 0311 ??- ??MRI ORBIT WO/W IVCON ??/ PROCEDURE REASON: vison loss ? * * * * Physician Interpretation * * * * EXAMINATION: ??MRI ORBIT WO/W IVCON HISTORY: ??vison loss - - - Infection/inflammatory - vison loss - [id number] - - - Orbit protocol with whole brain scans - TECHNIQUE: ??MRI brain routine protocol without and with contrast. M: [id number] MR Contrast: ??Elucirem Contrast Dose: ??7.7 cc Route of Administration: ??IV COMPARISON: ??MRI brain 01/16/2025 RESULT: Acute Change: ??No evidence of an acute intracranial process. Orbits: Unremarkable appearance of the globes, optic nerves, extraocular muscles, intraconal and extraconal retrobulbar fat, lacrimal glands, and preseptal periorbital soft tissues. ??No evidence of abnormal enhancement. Hemorrhage: ??No evidence of prior parenchymal hemorrhage on the susceptibility weighted sequences. Mass Lesion/ Mass Effect: ??No evidence of an intracranial mass or extra-axial fluid collection. ??No abnormal intracranial enhancement following contrast administration. ??No significant mass effect. Chronic Change: ??The white matter is within normal limits of signal intensity for age. Parenchyma: ??No significant parenchymal volume loss for age. Ventricles: ??Normal caliber and morphology. Skull Base: ??Hypothalamic and pituitary region are grossly normal. Craniocervical junction is normal. No significant marrow replacement process. Vasculature: ??Major intracranial arteries and dural venous sinuses demonstrate typical flow voids, suggesting patency by spin echo criteria. Other: Mucosal thickening preferentially involving ethmoid air cells. No dependent fluid collection within the paranasal sinuses. Large left mastoid effusion.. ??The orbits and extracranial soft tissues are unremarkable. ??Few scattered prominent nonpathologically enlarged lymph nodes described on coronal T2 images. Procedure Note Provider, [facility] - 02/28/2025 * * *Final Report* * * DATE OF EXAM: Feb 28 2025 8:15AM QBM 0311 - MRI ORBIT WO/W IVCON / PROCEDURE REASON: vison loss * * * * Physician Interpretation * * * * EXAMINATION: MRI ORBIT WO/W IVCON HISTORY: vison loss - - - Infection/inflammatory - vison loss - [id number] - - - Orbit protocol with whole brain scans - TECHNIQUE: MRI brain routine protocol without and with contrast. M: [id number] MR Contrast: Elucirem Contrast Dose: 7.7 cc Route of Administration: IV COMPARISON: MRI brain 01/16/2025 RESULT: Acute Change: No evidence of an acute intracranial process. Orbits: Unremarkable appearance of the globes, optic nerves, extraocular muscles, intraconal and extraconal retrobulbar fat, lacrimal glands, and preseptal periorbital soft tissues. No evidence of abnormalenhancement. Hemorrhage: No evidence of prior parenchymal hemorrhage on the susceptibility weighted sequences. Mass Lesion/ Mass Effect: No evidence of an intracranial mass or extra-axial fluid collection. No abnormal intracranial enhancement following contrast administration. No significant mass effect. Chronic Change: The white matter is within normal limits of signal intensity for age. Parenchyma: No significant parenchymal volume loss for age. Ventricles: Normal caliber and morphology. Skull Base: Hypothalamic and pituitary region are grossly normal. Craniocervical junction is normal. No significant marrow replacement process. Vasculature: Major intracranial arteries and dural venous sinuses demonstrate typical flow voids, suggesting patency by spin echocriteria. Other: Mucosal thickening preferentially involving ethmoid air cells. No dependent fluid collection within the paranasal sinuses. Large left mastoid effusion.. The orbits and extracranial soft tissues are unremarkable. Few scattered prominent nonpathologically enlarged lymph nodes described on coronal T2 images. IMPRESSION IMPRESSION: Unremarkable appearance of the orbits.. Safety Security Officer: ANA Transcribe Date/Time: Feb 28 2025 8:16A Dictated by : TAMARA MONTEIRO MD This examination was interpreted and the report reviewed and electronically signed by: TAMARA MONTEIRO MD on Feb 28 2025 8:20AM EST Authorizing ProviderResult TypeResult StatusRobert Jessica DOMRI-PAMAFinal Result * C-REACTIVE PROTEIN (02/28/2025 6:19 AM EDT)ComponentValueRef RangeTest Method Analysis TimePerformed AtPathologist SignatureCRP<0.3<0.9 mg/dL02/28/2025 2:57 PM EDTCMERCER COUNTY COMM[facility] MAIN LABSpecimen (Source)Anatomical Location / LateralityCollection Method / VolumeCollection TimeReceived TimeBloodBLOOD SPECIMEN / UnknownVenipuncture / Qohzcmw9102/28/2025 6:19 AM EDT1 6:55 AM EDT Narrative Authorizing ProviderResult TypeResult StatusMaremerson Alves MDLABORATORYFinal ResultPerforming OrganizationAddressCity/State/ZIP CodePhone Number [facility] [address] [place] [address], * SEDIMENTATION RATE, WESTERGREN (02/28/2025 6:19 AM EDT)ComponentValueRef Range Test MethodAnalysis TimePerformed AtPathologist SignatureSed Rate, Westergren 130 - 20 mm/hr02/28/2025 3:32 PM [facility] LABSpecimen (Source) Anatomical Location / LateralityCollection Method / VolumeCollection Time Received TimeBloodBLOOD SPECIMEN / UnknownVenipuncture / Wwuczfs0002/28/2025 6:19 AM EDT1 6:54 AM EDT Narrative Authorizing ProviderResult TypeResult StatusKatarina BANGURAORATORYFinal ResultPerforming OrganizationAddressty/State/ZIP CodePhone Number [facility] [address] [place] [address], * (ABNORMAL) COMPLETE BLOOD COUNT AND DIFFERENTIAL (02/28/2025 6:19 AM EDT) ComponentValueRef RangeTest MethodAnalysis TimePerformed AtPathologist SignatureWBC5.963.70 - 11.00 k/uL02/28/2025 7:10 AM EDTCMERCER COUNTY COMM[facility]ITY [facility] MAIN LABRBC4.023.90 - 5.20 m/uL02/28/2025 7:10 AM [facility] Ewzzuatupj90.711.5 - 15.5 g/dL02/28/2025 7:10 AM [facility] Yrzdonwlee11.2(L)36.0 - 46.0 %02/28/2025 7:10 AM [facility] MCV87.680.0 - 100.0 fL02/28/2025 7:10 AM [facility] SZRTZV21.6 26.0 - 34.0 pg02/28/2025 7:10 AM [facility] NRAUAGD31.1(H)30.5 - 36.0 g/dL02/28/2025 7:10 AM [facility]DS[facility] MAIN LABRDW-CV11.3(L)11.5 - 15.0 %02/28/2025 7:10 AM [facility]DS[facility] MA[facility] LABPlatelet Byndh300699 - 400 k/uL02/28/2025 7:10 AM [facility]DS[facility] MA[facility] LABMPV9.49.0 - 12.7 fL 02/28/2025 7:10 AM [facility] MA[facility] LABNeutrophils %29.6%02/28/2025 7:10 AM [facility]DS[facility] MAIN LABAbs Neut1.771.45 - 7.50 k/uL02/28/2025 7:10 AM [facility] LABLymphocytes %57.0%02/28/2025 7:10 AM EDT [facility] LABAbs Lymph3.401.00 - 4.00 k/uL02/28/2025 7:10 AM EDT [facility] MA[facility] LABMonocytes %8.1%02/28/2025 7:10 AM EDTCMERCER COUNTY [facility] MAIN LABAbs Mono0.48<0.87 k/uL02/28/2025 7:10 AM EDSUMMA [facility] Eosinophils %4.4%02/28/2025 7:10 AM EDSUMMA [facility] LABAbs Eosin0.26 <0.46 k/uL02/28/2025 7:10 AM [facility] LABBasophils %0.7% 02/28/2025 7:10 AM [facility]DSUM[facility] LABAbs Baso0.04<0.11 k/uL 02/28/2025 7:10 AM [facility]DSUMMA [facility] LABImmature Granulocytes %0.2% 02/28/2025 7:10 AM [facility] MA[facility] LABAbs Immature Gran<0.03<0.10 k/uL02/28/2025 7:10 AM EDSUMMA [facility] LABNRBC0.0/100 WBC02/28/2025 7:10 AM [facility] MA[facility] LABAbsolute nRBC<0.01<0.01 k/uL02/28/2025 7:10 AM [facility] MA[facility] LABDiff HdevDgzq32/21/2025 7:10 AM EDT [facility] MA[facility] LABSpecimen (Source)Anatomical Location / Laterality Collection Method / VolumeCollection TimeReceived TimeBloodBLOOD SPECIMEN / UnknownVenipuncture / Uhxysjx1902/28/2025 6:19 AM EDT1 6:54 AM EDT Narrative Authorizing ProviderResult TypeResult StatusRobert City Hospital DOLABORATORYFinal ResultPerforming OrganizationAddressCity/State/ZIP CodePhone Number [facility] [address] * (ABNORMAL) COMPREHENSIVE METABOLIC PANEL (02/28/2025 6:19 AM EDT)Component ValueRef RangeTest MethodAnalysis TimePerformed AtPathologist Signature Protein, Total5.9(L)6.3 - 8.0 g/dL02/28/2025 8:29 AM [facility] MA[facility] LABAlbumin3.93.9 - 4.9 g/dL02/28/2025 8:29 AM [facility] Calcium, Total9.08.5 - 10.2 mg/dL02/28/2025 8:29 AM [facility] MA[facility] LABBilirubin, Total0.40.2 - 1.3 mg/dL02/28/2025 8:29 AM [facility] MA[facility] LABAlkaline Emqmdgpkgtr0446 - 123 U/L1 8:29 AM [facility] MA[facility] EPOSZK45(H)13 - 35 U/L1 8:29 AM [facility] ZKGAHX97(H)7 - 38 U/L1 8:29 AM [facility] XYJXwgaldw266 (H)74 - 99 mg/dL02/28/2025 8:29 AM [facility] MAIN LABComment: The [place] [employer] (ADA) provides guidance for cutoff values for fasting glucose andrandom glucose. The ADA defines fasting as no [...] Standards of Medical Care in Diabetes 2016, [place] [employer]. Diabetes Care. 2016.39(Suppl 1). CYP220 - 21 mg/dL02/28/2025 8:29 AM [facility] MA[facility] LABCreatinine0.91 0.58 - 0.96 mg/dL02/28/2025 8:29 AM [facility] FLSImwlko791151 - 144 mmol/L1 8:29 AM [facility] MA[facility] LABPotassium3.93.7 - 5.1 mmol/L1 8:29 AM [facility] SBEUmiigyxu75169 - 107 mmol/L 02/28/2025 8:29 AM [facility] UWCXZ95744 - 30 mmol/L1 8:29 AM [facility] MA[facility] LABAnion Jcg931 - 15 mmol/L1 8:29 AM [facility] MAIN LABEstimated Glomerular Filtration Rate82>=60 mL/min/1.73m 02/28/2025 8:29 AM [facility] MAIN LABComment:Estimated Glomerular Filtration Rate (eGFR) is calculated using the 2020 CKD-EPI creatinine equation. This equation utilizes serum creatinine, sex, and age as parameters. The creatinine assay has traceable calibration to isotope dilution-mass spectrometry. Refer to KDIGO guidelines for clinical interpretation. In patients with unstable renal function, e.g. those with acute kidney injury, the eGFRmay not accurately reflect actual GFR.Specimen (Source)Anatomical Location / LateralityCollection Method / VolumeCollection TimeReceived TimeBloodBLOOD SPECIMEN / UnknownVenipuncture / Ufffhlv7002/28/2025 6:19 AM EDT1 6:55 AM EDT Narrative Authorizing ProviderResult TypeResult StatusBrian COPEABORATORYFinal ResultPerforming OrganizationAddressCity/State/ZIP CodePhone Number [facility] [address] [place] [address], * (ABNORMAL) IGG SUBCLASS 1,2,3,4 (02/27/2025 12:30 PM EDT)ComponentValueRef RangeTest MethodAnalysis TimePerformed AtPathologist SignatureIgG Subclass 1 357.5(L)382.4 - 928.6 mg/dL03/01/2025 12:04 PM [facility]TC[facility] MA[facility] LABIgG Subclass 2103.9(L)241.8 - 700.3 mg/dL03/01/2025 12:04 PM [facility]TCLEVEL[facility] MAIN LABIgG Subclass 349.821.8 - 176.1 mg/dL03/01/2025 12:04 PM EDTCMERCER [facility] MA[facility] LABIgG Subclass 411.43.9 - 86.4 mg/dL03/01/2025 12:04 PM EDT [facility] LABSpecimen (Source)Anatomical Location / Laterality Collection Method / VolumeCollection TimeReceived TimeBloodBLOOD SPECIMEN / UnknownVenipuncture / Sejntko0002/27/2025 12:30 PM EDT1 12:31 PM EDT Narrative Authorizing ProviderResult TypeResult StatusKatarina Alves MDLABORATORYFinal ResultPerforming OrganizationAddressCity/State/ZIP CodePhone Number [facility] [address] [place] [address], documented in this encounter Visit Diagnoses Diagnosis Headache- Primary Blurred vision, bilateral Other specified visual disturbances IIH (idiopathic intracranial hypertension) Benign intracranial hypertension Obesity, Class I, BMI 30-34.9 Obesity, unspecified Adjustment disorder with anxiety CONCHA (generalized anxiety disorder) Generalized anxiety disorder History of posttraumatic stress disorder (PTSD) Blurred vision, bilateral Other specified visual disturbances Papilledema Papilloedema, unspecified Myalgia Mylagia and myositis, unspecified Low serum IgG for age Other localized visual field defect, bilateral- Primary documented in this encounter Admitting Diagnoses Diagnosis Headache documented in this encounter Administered Medications Medication OrderMAR ActionAction DateDoseRateSite amoxicillin-clavulanate potassium 875 mg tab(s) (AUGMENTIN) 875 mg, ORAL, 2 TIMES DAILY, First dose on Thu02/27/25 at 2100, Until Discontinued, Antimicrobial indication: Empiric, Infectious source(s): Other (free text), Infectious source(s): ear, Pharmacist may modify dose per [facility] dose optimization consult agreement: Yes Given03/01/2025 9:10 AM XUJ292 ypBxtxm2402/28/2025 8:03 PM RZY227 mgGiven 02/28/2025 9:00 AM MKX029 mg divalproex ER 500 mg tab(s) (DEPAKOTE ER) 500 mg, ORAL, AT BEDTIME, First dose (after last modification) on Thu02/27/25 at 2100, Until Discontinued, Hazardous Potential Reproductive Risk Drug: Use appropriate PPE. Swallow whole; DO NOT crush or chew. Given02/28/2025 8:03 PM WSK744 wqXaxci2102/27/2025 8:35 PM XTP468 mg fentaNYL 50 mcg/mL 25 mcg injection (SUBLIMAZE) 25 mcg, INTRAVENOUS, ONCE, 1 dose, On Thu02/28/25 at 1600 Given02/28/2025 4:00 PM EDT25 mcg hydrOXYzine pamoate 50 mg cap(s) (VISTARIL) 50 mg, ORAL, AT BEDTIME, First dose on Thu02/27/25 at 2100, Until Discontinued Given02/28/2025 8:03 PM EDT50 vbUkqdg9702/27/2025 10:12 PM EDT50 mg ibuprofen 600 mg tab(s) (MOTRIN) 600 mg, ORAL/FEEDING TUBE, ONCE, 1 dose, On Thu03/01/25 at 1100 Given03/01/2025 11:13 AM EGN387 mgOral lidocaine 20 mg/mL (2 %) 200 mg injection (XYLOCAINE) 200 mg (10 mL), INTRADERMAL, ONCE, 1 dose, On Thu02/28/25 at 1500 Given02/28/2025 3:00 PM IFD110 mgBack LORazepam 0.5 mg tab(s) (ATIVAN) 0.5 mg, ORAL/FEEDING TUBE, NEEDED, 1 dose, Starting on Thu02/27/25 at 2055, Until Thu02/28/25 at 0615, Anxiety - First Line - Enteral, Give 30 minutes prior to MRI brain Given02/28/2025 6:15 AM EDT0.5 mgOral LORazepam 0.5 mg tab(s) (ATIVAN) 0.5 mg, ORAL, ONCE, 1 dose, On Thu02/28/25 at 1530 Given02/28/2025 3:30 PM EDT0.5 mg magnesium oxide 400 mg tab(s) (MAG-OX) 400 mg, ORAL, DAILY, First dose on Thu02/27/25 at 2000, Until Discontinued Given02/27/2025 8:35 PM KQA457 mg midazolam (PF) 0.5 mg injection (VERSED) 0.5 mg, INTRAVENOUS, ONCE, 1 dose, On Thu02/28/25 at 1700 Given02/28/2025 4:46 PM EDT0.5 mg montelukast 10 mg tab(s) (SINGULAIR) 10 mg, ORAL, AT BEDTIME, First dose on Thu02/27/25 at 2100, Until Discontinued Given02/28/2025 8:03 PM EDT10 qlTsqom4802/27/2025 8:35 PM EDT10 mg NaCl 0.9% iv flush bag 20 mL, INTRAVENOUS, NEEDED, Starting on Thu02/27/25 at 1854, Until Thu03/01/25 at 1813, See admin instructions, If no compatible primary is already running, infuse NaCl 0.9% as primary to flush tubing after non-chemotherapy, non-immunotherapy intermittent infusions. Administer at the same rateas intermittent infusion. Select the Flush Bag file on smart pump. documented in this encounter Active and Recently Administered Medications Times are shown in EDT.Medication Order/ amoxicillin-clavulanate potassium 875 mg tab(s) (AUGMENTIN) 875 mg, ORAL, 2 TIMES DAILY, First dose on Thu02/27/25 at 2100, Until Discontinued, Antimicrobial indication: Empiric, Infectious source(s): Other (free text), Infectious source(s): ear, Pharmacist may modify dose per [facility] dose optimization consult agreement: Yes * 2034 (Given - Provider: Enedina Pagan, FAY) * 899 (Given - Provider: Cadence Han, FAY) * 2002 (Given - Provider: Teresita Gonzalez, FAY) * 909 (Given - Provider: Chio Mcqueen, FAY) divalproex ER 500 mg tab(s) (DEPAKOTE ER) 500 mg, ORAL, AT BEDTIME, First dose (after last modification) on Thu02/27/25 at 2100, Until Discontinued, Hazardous Potential Reproductive Risk Drug: Use appropriate PPE. Swallow whole; DO NOT crush or chew. * 2034 (Given - Provider: Enedina Pagan, FAY) * 2002 (Given - Provider: Teresita Gonzalez, FAY) fentaNYL 50 mcg/mL 25 mcg injection (SUBLIMAZE) (COMPLETED) 25 mcg, INTRAVENOUS, ONCE, 1 dose, On Thu02/28/25 at 1600 * 1600 (Given - Provider: Cadence Han, FAY) hydrOXYzine pamoate 50 mg cap(s) (VISTARIL) 50 mg, ORAL, AT BEDTIME, First dose on Thu02/27/25 at 2100, Until Discontinued * 2211 (Given - Provider: Enedina Pagan RN) * 2002 (Given - Provider: Teresita Gonzalez, FAY) ibuprofen 600 mg tab(s) (MOTRIN) (COMPLETED) 600 mg, ORAL/FEEDING TUBE, ONCE, 1 dose, On Thu03/01/25 at 1100 * 1113 (Given - Provider: Chio Mcqueen, FAY) lidocaine 20 mg/mL (2 %) 200 mg injection (XYLOCAINE) (COMPLETED) 200 mg (10 mL), INTRADERMAL, ONCE, 1 dose, On Thu02/28/25 at 1500 * 1500 (Given - Provider: Cadence Han, FAY - Comment: Performed by LP) LORazepam 0.5 mg tab(s) (ATIVAN) (COMPLETED) 0.5 mg, ORAL, ONCE, 1 dose, On Thu02/28/25 at 1530 * 1530 (Given - Provider: Cadence Han, FAY) magnesium oxide 400 mg tab(s) (MAG-OX) 400 mg, ORAL, DAILY, First dose on Thu02/27/25 at 2000, Until Discontinued * 2034 (Given - Provider: Enedina Pagan, FAY) * 0900 (Not Given - Provider: Cadence Han, FAY - Reason: Patient Declined. LIP Notified) midazolam (PF) 0.5 mg injection (VERSED) (COMPLETED) 0.5 mg, INTRAVENOUS, ONCE, 1 dose, On Thu02/28/25 at 1700 * 1646 (Given - Provider: Cadence Han, FAY) montelukast 10 mg tab(s) (SINGULAIR) 10 mg, ORAL, AT BEDTIME, First dose on Thu02/27/25 at 2100, Until Discontinued * 2034 (Given - Provider: Enedina Pagan, FAY) * 2002 (Given - Provider: Teresita Gonzalez, FAY) Medication Order LORazepam 0.5 mg tab(s) (ATIVAN) (COMPLETED) 0.5 mg, ORAL/FEEDING TUBE, NEEDED, 1 dose, Starting on Thu02/27/25 at 2055, Until Thu02/28/25 at 0615, Anxiety - First Line - Enteral, Give 30 minutes prior to MRI brain * 0615 (Given - Provider: Kuldip Cramer RN) NaCl 0.9% iv flush bag 20 mL, INTRAVENOUS, NEEDED, Starting on Thu02/27/25 at 1854, Until Thu03/01/25 at 1813, See admin instructions, If no compatible primary is already running, infuse NaCl 0.9% as primary to flush tubing after non-chemotherapy, non-immunotherapy intermittent infusions. Administer at the same rateas intermittent infusion. Select the Flush Bag file on smart pump. documented in this encounter Care Teams Team MemberRelationshipSpecialtyStart DateEnd Date Yoan Morel MD [address] [place] [address] PCP - GeneralFamily Medicine06/06/24 Tamara Sherwood MD [address] [place] [address] ReferringOphthalmology12/14/24documented as of this encounter
--- OUTSIDE RECORDS SUMMARY | 2025-03-03 08:30 | XMS_ITS | Encounter Summary ---
Author Organization [facility] Address [facility] [place] [address] Care Team Providers Care Milled Rice Broker Name Role Phone Yoan Morel MD Primary Care Provider + Lloyd Sherwood MD Unavailable Source Comments In the event this information is protected by the Federal Confidentiality of Alcohol and Drug AbusePatient Records regulations: The Federal rules restrict any use of the information to criminally investigate or prosecute any alcohol or drug abuse patient.[facility] Reason for Referral * Outpatient Procedure (Routine) - New RequestSpecialtyDiagnoses / Procedures Referred By ContactReferred To ContactARTESIA [facility] Diagnoses Moderate persistent asthma, uncomplicated (HCC) Procedures NITRIC OXIDE, EXHALED NITRIC OXIDE GAS DETERMINATION Joyce Murguia MD [facility] [place] [address] Phone: tel: fax: [facility] [place] [address] [place] [address] Referral IDStatusReasonStart DateExpiration DateVisits RequestedVisits [id number] Request Auto-Generated Referral / * Outpatient Procedure (Routine) - New RequestSpecialtyDiagnoses / Procedures Referred By ContactReferred To ContactARTESIA [facility] Diagnoses Moderate persistent asthma, uncomplicated (HCC) Procedures SPIROMETRY WITH DILATOR IF OBSTRUCTED BRNCDILAT RSPSE SPMTRY PRE&POST-BRNCDILAT ADMN Joyce Murguia MD [address] [place] [address] Phone: tel: fax: [facility] [place] [address] [place] [address] Referral IDStatusReasonStart DateExpiration DateVisits RequestedVisits [id number] Request Auto-Generated Referral / * Consult, Test, Treat (Routine) - New RequestSpecialtyDiagnoses / Procedures Referred By ContactReferred To ContactNationwide [facility] - Otol[facility] Diagnoses Recurrent acute non-suppurative otitis media of both ears Procedures OFFICE/OUTPATIENT NEW HIGH MDM 60 MINUTES Joyce Murguia MD [address] [place] [address] Phone: tel: fax: Referral IDStatusReasonStart DateExpiration DateVisits RequestedVisits [id number] Request PCP Requested Referral Encounter Details DateTypeDepartmentCare Team (Latest Contact Info)Aysdushaexz88/24/2025 8:30 AM EDTDistance Health Allergy [address] [place] [phone] Joyce Murguia MD [address] [place] [address] [phone] Recurrent acute non-suppurative otitis media of both ears (Primary Dx); Recurrent infections; Chronic rhinitis; Moderate persistent asthma, uncomplicated (HCC) Social History Tobacco UseTypesPacks/DayYears UsedDateSmoking Tobacco: Every DayCigarettes Smokeless Tobacco: Never Comments:1 pack every 2 days Alcohol UseStandard Drinks/WeekCommentsNot Currently0 (1 standard drink = 0.6 oz pure alcohol)[facility] UtilitiesAnswerDate RecordedIn the past 12 months has the [employer], gas, oil, or water [employer] threatened to shut off services in your home?No12/16/2024PHQ-2AnswerDate RecordedPHQ-2 nnfsw570Hunger Vital Sign AnswerDate RecordedWithin the past 12 [...] were you homeless or living in a half-way (including now)?No12/16/2024rea Deprivation IndexAnswerDate RecordedNational Score (1-100), lower number is lower risk82 09/29/2023State Score (1-10), lower number is lower szxp754ata from: https://www.neighborhoodatlas.medicine.[facility].edu/. Last address used for qxyavdcqjug[address]09/29/2023CommentsNoSex and Gender Information ValueDate RecordedSex Assigned at RnmagJwjote24/23/2023 3:16 PM ESTLegal Sex Qadrgb1007/03/2022 3:13 PM ESTGender HtkcxohgEvhzqp84/23/2023 3:16 PM ESTSexual OrientationNot on filedocumented as of this encounter Functional Status * Are you deaf or do you have serious difficulty hearing?AnswerDate of JcipiqxkigIaxrwzJx10/22/2025 3:49 PM Adriane Davis RN * Are you blind or do you have serious difficulty seeing, even when wearing glasses?AnswerDate of FjkgtcenkwRgqbyvNvr97/22/2025 3:49 PM Adriane Davis RN * Do you have serious difficulty walking or climbing stairs?AnswerDate of WckhmwxedlNceebbKa67/22/2025 3:49 PM Adriane Davis RN * Do you have difficulty dressing or bathing?AnswerDate of AssessmentAuthorNo 03/01/2025 3:49 PM Adriane Davis RN * Because of a physical, mental, or emotional condition, do you have difficulty doing errands alone such as visiting a doctor's office or shopping?AnswerDate of AitpwbonnvZlkjllZm63/22/2025 3:49 PM Adriane Davis RN documented as of this encounter Mental Status * Because of a physical, mental, or emotional condition, do you have serious difficulty concentrating, remembering, or making decisions?AnswerEntry Date UlyycqQr93/22/2025 3:49 PM Adriane Davis RN documented in this encounter Plan of Treatment DateTypeDepartmentCare Team (Latest Contact Info)Caeuxyzcohr11/06/2025 9:30 AM ESTOffice Visit [facility] [address] [place] [address] Nati Noble PA-C [address] [place] [address] Next Available New Bnjrgem6503/23/2025 8:40 AM ESTOffice Visit Orthopaedics [address] [place], [place] [phone] Lidna Malik PA-C [address] [place] [address] Dx: Carpal tunnel syndrome, bilateral [G56.03]04/18/2025 7:30 AM ESTOffice Visit [facility]HT Ophthalmology [address] [address] Lloyd Sherwood MD [address] [place] [address] Please set the patient up for a 2 month virtual visit for history of IIH 04/24/2025 2:00 PM ESTOffice Visit Functional Medicine [address] [address] Janina Lock APRN.MANAGER TRAINING [address] [phone] Multiple symptoms, lifestyle /17/2025 1:30 PM ESTOffice Visit Allergy [address] [place] [phone] Joyce Murguia MD [address] [place] [address] Follow up06/15/2025 1:45 PM ESTOffice Visit [facility] [address] [place] [address] [place] [address] [place] [address] Next Available New PatientNameTypePriorityAssociated DiagnosesDate/TimeHUMORAL IMMUNITY PANEL 1LabRoutine Recurrent infections 03/03/2025 10:41 AM EDTIMMUNODEFICIENCY CDCLabRoutine Recurrent infections 03/03/2025 10:41 AM EDTMITOGEN LTTLabRoutine Recurrent infections 03/03/2025 10:41 AM EDTALGN RESP DISEASE PROF REG 5LabRoutine Chronic rhinitis 03/03/2025 10:41 AM EDTNameTypePriorityAssociated DiagnosesOrder ScheduleHUMORAL IMMUNITY PANEL 1LabRoutine Recurrent infections Expected: 03/03/2025, Expires: 06/02/2025IMMUNODEFICIENCY CDCLabRoutine Recurrent infections Expected: 03/03/2025, Expires: 06/02/2025MITOGEN LTTLabRoutine Recurrent infections Expected: 03/03/2025, Expires: 06/02/2025LGN RESP DISEASE PROF REG 5LabRoutine Chronic rhinitis Expected: 03/03/2025, Expires: 06/02/2025SPIROMETRY WITH DILATOR IF OBSTRUCTED PFTRoutine Moderate persistent asthma, uncomplicated (HCC) 1 Occurrences starting 03/03/2025 until 04/03/2026NITRIC OXIDE, EXHALEDPFT Routine Moderate persistent asthma, uncomplicated (HCC) 1 Occurrences starting 03/03/2025 until 04/03/2026MITOGEN LTTLabRoutine Recurrent infections Expected: 03/03/2025, Expires: 06/02/2025NameTypePriorityAssociated Diagnoses Order ScheduleCONSULT TO ENTReferralRoutine Recurrent acute non-suppurative otitis media of both ears 1 Occurrences starting 03/03/2025 until 03/03/2026documented as of this encounter Results * (ABNORMAL) COMPLETE BLOOD COUNT AND DIFFERENTIAL (03/03/2025 10:41 AM EDT) ComponentValueRef RangeTest MethodAnalysis TimePerformed AtPathologist SignatureWBC6.313.70 - 11.00 k/uL03/03/2025 10:46 AM EDTNORTFORMERLY [facility] LABRBC4.263.90 - 5.20 m/uL03/03/2025 10:46 AM EDTNORTFORMERLY [facility] ZWDYaquqzqbrt31.511.5 - 15.5 g/dL03/03/2025 10:46 AM EDTNORTFORMERLY [facility] HEKKvzbqkpyfe44.236.0 - 46.0 %03/03/2025 10:46 AM EDTNORTFORMERLY [facility] RLXIQE73.380.0 - 100.0 fL 03/03/2025 10:46 AM EDTNOBRAXTON [facility] JIQXNR31.726.0 - 34.0 pg03/03/2025 10:46 AM EDNOBRAXTON COUNTY MEMORIAL [facility] VVPKKBP65.3(H)30.5 - 36.0 g/dL03/03/2025 10:46 AM EDMARMET [facility] LABRDW-CV 11.4(L)11.5 - 15.0 %03/03/2025 10:46 AM [facility] LABPlatelet Klmsr742746 - 400 k/uL03/03/2025 10:46 AM EDMARMET [facility] LABMPV9.29.0 - 12.7 fL03/03/2025 10:46 AM EDMARMET [facility] LABNeutrophils %36.2%03/03/2025 10:46 AM [facility] LABAbs Neut2.291.45 - 7.50 k/uL03/03/2025 10:46 AM EDT [facility] LABLymphocytes %51.7%03/03/2025 10:46 AM EDT [facility] LABAbs Lymph3.261.00 - 4.00 k/uL03/03/2025 10:46 AM [facility] LABMonocytes %7.8%03/03/2025 10:46 AM EDMARMET [facility] LABAbs Mono0.49<0.87 k/uL 03/03/2025 10:46 AM EDMARMET [facility] LABEosinophils %3.5% 03/03/2025 10:46 AM EDMARMET [facility] LABAbs Eosin0.22<0.46 k/uL03/03/2025 10:46 AM EDMARMET [facility] LABBasophils % 0.5%03/03/2025 10:46 AM EDMARMET [facility] LABAbs Baso0.03 <0.11 k/uL03/03/2025 10:46 AM [facility] LABImmature Granulocytes %0.3%03/03/2025 10:46 AM [facility] LABAbs Immature Gran<0.03<0.10 k/uL03/03/2025 10:46 AM [facility] LABNRBC0.0/100 WBC03/03/2025 10:46 AM EDTBROADDUS [facility]OSPITAL LABAbsolute nRBC<0.01<0.01 k/uL03/03/2025 10:46 AM [facility] LABDiff ReizNigd14/24/2025 10:46 AM [facility] LABSpecimen (Source)Anatomical Location / Laterality Collection Method / VolumeCollection TimeReceived TimeBloodBLOOD SPECIMEN / UnknownVenipuncture / Xheefjn7903/03/2025 10:41 AM EDT1 10:43 AM EDT Narrative Authorizing ProviderResult TypeResult StatusDenader Murguia MDLABORATORYFinal ResultPerforming OrganizationAddressCity/State/ZIP CodePhone Number [facility] [address] [place] [address] documented in this encounter Visit Diagnoses Diagnosis Recurrent acute non-suppurative otitis media of both ears- Primary Recurrent infections Unspecified infectious and parasitic diseases Chronic rhinitis Moderate persistent asthma, uncomplicated (HCC) Unspecified asthma Other localized visual field defect, bilateral- Primary documented in this encounter Care Teams Team MemberRelationshipSpecialtyStart DateEnd Yoan Morel MD [address] [place] [address] PCP - GeneralFamily Medicine06/06/24 Lloyd Sherwood MD [address] [place] [address] ReferringOphthalmology12/14/24documented as of this encounter
--- NOTE | 2025-03-03 12:47 | US_ITS ---
The [address] [address] Patient Name: HERNAN MCDONALD MRN: [id number] date: 1985 Sex: F Assigned Patient Location: Current Patient Location: Accession/Order Number: [id number] Exam Date: 03/03/2025 12:48 Report Date: 03/03/2025 21:36 At the request of: SHERI IVEY MD Procedure: US abdomen complete Ultrasound abdomen INDICATION: Abnormal labs, Fatty liver. Comparison: None FINDINGS: Hepatomegaly with diffuse increased echogenicity suggestive of fatty infiltration. Normal hepatopedal flow. Gallbladder absent. Negative Chinchilla's. Common bile duct 7.2 mm. Pancreas unremarkable. Right and left kidneys unremarkable measuring 9.9 x 4.2 x 5.8 cm and 10.8 x 4.0 x 3.8 cm respectively. Unremarkable visualized portions of the aorta and IVC. Spleen is normal measuring 8.6 cm. US/US abdomen complete Impression: Fatty infiltration in liver. Cholecystectomy. Otherwise unremarkable ultrasound of the abdomen. Impression dictated by: Mj Garcia M.D. 03/03/2025 9:36 PM Dictation Location: [place] [address] Electronically authenticated by: [id number] Y Date: 03/03/2025 21:36
--- OUTSIDE RECORDS SUMMARY | 2025-03-03 12:48 | XMS_ITS | Encounter Summary ---
Author Organization [facility] Address [address] [facility] [place] [address] Care Team Providers Care Sugar Coating Hand Name Role Phone Unallocated, [facility] Provider Primary Care Provi joaquin Bhavya Chaney 3D MODELER Unavailable [phone] Encounter Details DateTypeDepartmentCare Team (Latest Contact Info)Atgwkmlxgwy16/23/2025Telephone [facility] [address] [place] [address] Bairon Alicea, [address] [place] [address] Social History Tobacco UseTypesPacks/DayYears UsedDateSmoking Tobacco: FormerCigarettes Smokeless Tobacco: NeverAlcohol UseStandard Drinks/WeekCommentsNever0 (1 standard drink = 0.6 oz pure alcohol)CommentsUnknownSex and Gender InformationValueDate RecordedSex Assigned at BirthNot on fileLegal SexFemale 07/23/2022 9:45 PM EDTGender IdentityNot on fileSexual OrientationNot on file documented as of this encounter Miscellaneous Notes * Telephone Encounter - Tricia Gan - 03/02/2025 4:08 PM EDT Spoke to pt she did not schedule at this time. She is going to talk to her PCP and see if he can get her into [place] faster. Closing the referral unless she calls to schedule with us documented in this encounter Plan of Treatment Not on file documented as of this encounter Visit Diagnoses Not on filedocumented in this encounter Care Teams Team MemberRelationshipSpecialtyStart DateEnd Date Unallocated, [facility] Provider, [address] [facility] [place] [address] PCP - GeneralFamily Medicine10/01/23 Bhavya Chaney NP [address] [place] [address] Nurse PractitionerFamily Gtphqbag97/23/24documented as of this encounter
--- OUTSIDE RECORDS SUMMARY | 2025-03-03 12:48 | XMS_ITS | Clinical Summary ---
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 [phone] Allergies Active AllergyReactionsCriticalityNoted DateCommentsHydrolyzed SilkUnknown 08/30/2016LatexRash,HhvrigkNtz86/22/2017NickelRash,YlwszjhSuy80/22/2017Oxycodone NwtgQdi7910/15/2020ulfa HsifdmihadkOugywlj03/22/2024 Medications MedicationSigDispense QuantityRefillsLast FilledStart DateEnd DateStatus cetirizine (ZyrTEC) 10 MG tablet 02/02/2023ctive Premarin 0.45 MG tablet 1 (one) time each day at the same time06/11/2022ctive albuterol HFA 90 mcg/act inhaler every 4 (four) hoursActive hydrOXYzine HCl (Atarax) 25 MG tablet 1 (one) time each day at the same timeActive Melatonin ER 10 MG tablet controlled-release Take by mouthActive Multiple Vitamin (Multivitamin Adult) tablet as directed OrallyActive acyclovir (Zovirax) 400 MG tablet 08/25/2023ctive predniSONE (Deltasone) 50 MG tablet 08/25/2023ctive Active Problems ProblemNoted DateDiagnosed DateRight groin pain10/06/2023bdominal pain 07/02/20232861Kmtfjco87/22/2024ttention deficit ihynwmes09/22/2024cute chest wall pain07/02/20236232Joecreqbtmokye10/22/2024lass 1 yvbimjs2907/02/2023OVID-19 07/02/2023Generalized anxiety mihfnbqm49/22/2024Influenza A007/02/2023Left arm pain07/02/2023Menopausal tdgnawxt55/22/2024Mild intermittent hgnsnn6307/02/2023 Postablative ovarian anijzkv2507/02/2023Status post rfsrzmducbbe06/22/2024Sudden visual loss07/02/2023Tobacco use07/02/2023Trigger thumb07/02/2023URI (upper respiratory infection)4Right upper quadrant pain07/02/2023 Encounters DateTypeDepartmentCare SqhmXhonikitykc77/23/2025Telephone [facility] [address] [place] [address] Bairon Alicea, 03/02/2025Telephone [facility] [address] [place] [address] Bairon [place]a, from Last 3 Months Immunizations ImmunizationAdministration DatesNext UqfRTX6506/21/1997Tdap05/14/2013 Family History Medical HistoryRelationNameCommentsSuicide AttemptsFatherLung cancerMother RelationNameStatusCommentsFatherDeceasedMotherDeceased Social History Tobacco UseTypesPacks/DayYears UsedDateSmoking Tobacco: FormerCigarettes Smokeless Tobacco: Never Tobacco Cessation:Counseling Given: Not Answered Alcohol UseStandard Drinks/WeekCommentsNever0 (1 standard drink = 0.6 oz pure alcohol)CommentsUnknownSex and Gender InformationValueDate RecordedSex Assigned at BirthNot on fileLegal JmtNvmkre86/15/2023 9:45 PM EDTGender Identity Not on fileSexual OrientationNot on file Last Filed Vital Signs Vital SignReadingTime TakenCommentsBlood Qtyybpkk191/78007/02/2023 1:59 PM EST Pulse--Temperature--Respiratory Rate--Oxygen Saturation--Inhaled Oxygen Concentration--Vyapyi12.4 kg (186 lb)07/02/2023 1:59 PM WDTFqpggt000.8 cm (5' 2.5 )07/02/2023 1:59 PM ESTBody Mass Index33.48007/02/2023 1:59 PM EST Plan of Treatment Health MaintenanceDue DateLast DoneCommentsInfluenza Vaccine (#1)01/09/2025 Insurance Care Teams Team MemberRelationshipSpecialtyStart DateEnd Date Unallocated, Noms Provider, [address] [place] [address] PCP - GeneralFamily Medicine10/01/23 Bhavya Chaney NP [address] [place] [address] Nurse PractitionerFamily Ddrmdxmv39/23/24
--- OUTSIDE RECORDS SUMMARY | 2025-03-03 12:48 | XMS_ITS | Encounter Summary ---
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 Unavailable [phone] Encounter Details DateTypeDepartmentCare Team (Latest Contact Info)Bhlhnggoexa51/23/2025Telephone [facility] [place] [facility] [address] [place] [address] Bairon Alicea DO [address] [place] [address] Social History Tobacco UseTypesPacks/DayYears UsedDateSmoking Tobacco: FormerCigarettes Smokeless Tobacco: NeverAlcohol UseStandard Drinks/WeekCommentsNever0 (1 standard drink = 0.6 oz pure alcohol)CommentsUnknownSex and Gender InformationValueDate RecordedSex Assigned at BirthNot on fileLegal SexFemale 07/23/2022 9:45 PM EDTGender IdentityNot on fileSexual OrientationNot on file documented as of this encounter Miscellaneous Notes * Telephone Encounter - Tricia Gan - 03/02/2025 3:48 PM EDT Called to schedule pt for Ear Pain. LM, Pt needs an audio 1st then scheduled with documented in this encounter Plan of Treatment Not on file documented as of this encounter Visit Diagnoses Not on filedocumented in this encounter Care Teams Team MemberRelationshipSpecialtyStart DateEnd Date Unallocated, Noms Provider, [address] [place] [address] PCP - GeneralFamily Medicine10/01/23 Bhavya Chaney NP [address] [place] [address] Nurse PractitionerFami Boqsttpy27/23/24documented as of this encounter
--- OUTSIDE RECORDS SUMMARY | 2025-03-03 12:49 | XMS_ITS | Patient Health Record ---
Author Organization [facility] in [place] Address [address] [place] [address] Care Team Providers Care Scudding Inspector Name Role Phone Maria Teresa Agapito Primary Care Provider [phone] Allergies Allergen (clinical drug ingredient) Drug/Non Drug Allergy documented on EMR Reaction Allergy Type Onset Date Status Information temporarily unavailable Latex (uncoded) Rash Allergy ActiveInformation temporarily unavailablePercocetrashDrug AllergyActive Information temporarily unavailableNickelRashAllergyActiveInformation temporarily unavailableSulfa Antibioticsrash/ swellingDrug AllergyActive Information temporarily unavailableTapeSilk Tape/ RashAllergyActiveInformation temporarily unavailablelevoFLOXacinRash/ Swellin gDrug AllergyActiveInformation temporarily unavailableMorphineSwellingDrug AllergyActive Results Component Value Reference Range Notes AMYLASE Reviewed date:06/16/2024 06:41:34 PM Interpretation: Performing Lab: Notes/Report: [facility] , Amylase 71 25-115 U/L Performing Lab:see noteML - [facility] LBLIPASE Reviewed date:06/16/2024 06:41:34 PM Interpretation: Performing Lab: Notes/Report: [facility] ,Gifohk31.016.0-77.0 U/LPerforming Lab:see note - [facility] LBCBC AUTO DIFF Reviewed date:06/09/2024 07:57:21 PM Interpretation: Performing Lab: Notes/Report: [facility] ,White Blood Count8.04.0-11.0 10 3/uLRed Blood Count4.074.20-5.40 10 6/uL Jdgcyikfgk90.812.0-16.0 g/eMAbgvkpfgiv90.736.0-48.0 %Mean Corpuscular Ahryal75.7 81.0-99.0 fLMean Corpuscular Pyegunaxln27.426.7-34.0 pgMean Corpuscular HGB Conc 35.929.9-35.2 g/dLRed Cell Distribution Width11.711.0-15.0 %Platelet Orlgj775 150-450 10 3/uLMean Platelet Volume9.69.5-13.5 fLNeutrophils Percent Auto43.5 43.0-75.0 %Lymphocytes Percent Auto44.920.5-60.0 %Monocytes Percent Auto5.51.7- 12.0 %Eosinophils Percent Auto5.50.9-7.0 %Basophils Percent Auto0.50.2-2.0 % Immature Granulocytes Pct Auto0.10.0-0.5 %Neutrophils Absolute Auto3.51.4-6.5 10 3/uLLymphocytes Absolute Auto3.61.2-3.8 10 3/uLMonocytes Absolute Auto0.40.3-0.8 10 3/uLEosinophils Absolute Auto0.40.0-0.7 10 3/uLBasophils Absolute Auto0.00.0- 0.1 10 3/uLImmature Granulocytes Abs Auto0.010.00-0.03 10 3/uLPerforming Lab:see noteML - [facility] LBFREE T3 Reviewed date:06/16/2024 06:41:34 PM Interpretation: Performing Lab: Notes/Report: [facility] ,Free T32.312.18-3.98 pg/mLPerforming Lab:see noteML - [facility] LB GLYCOHEMOGLOBIN A1C Reviewed date:06/16/2024 06:41:34 PM Interpretation: Performing Lab: Notes/Report: [facility] ,Glycohemoglobin A1C4.94.5-6.2 % ADA RECOMMENDED LIMIT 4.0 - 6.0 ACTION SUGGESTED ADA THERAPEUTIC TARGET < 7.0 > 7.0 Estimated Average Wolvzyg47Keqjzdaiwr Lab:see noteML - [facility] LB INSULIN Reviewed date:06/19/2024 11:05:23 AM Interpretation: Performing Lab: Notes/Report: [facility] ,Insulin3.72.6-24.9 uIU/mL All Source Intelligence Technician: Lonnie Elise PhD, Phone: [phone] [address] [place], [place] [phone] Performed at: - [facility] [place] Performing Lab:see noteLC - [facility] LBIRON Reviewed date:06/16/2024 06:41:34 PM Interpretation: Performing Lab: Notes/Report: [facility] ,Gyoe216.050.0-170.0 ug/dLPerforming Lab:see noteML - [facility] LB LIPID PROFILE Reviewed date:06/16/2024 06:41:34 PM Interpretation: Performing Lab: Notes/Report: [facility] ,Jhuyyudtpinho264<=150 mg/jMWuveathtmpj132<=200 mg/dLHDL Fgflotgsyxd6362-81 mg/dL > or =60 mg/dl - LOW CARDIOVASCULAR RISK <40 mg/dl - HIGH CARDIOVASCULAR RISK LDL Cholesterol Amdxzpwurd369.8 130-159 mg/dl BORDERLINE HIGH 100-129 mg/dl NEAR OR ABOVE OPTIMAL 160-189 mg/dl HIGH >190 mg/dl VERY HIGH <100 mg/dl OPTIMAL VLDL KVENNTPPANX71.2Chol HDL Ratio3.3 3.3 - 4.4 LOW RISK 4.4 - 7.1 AVERAGE RISK 7.1 - 11.0 MODERATE RISK >11.0 HIGH RISK Performing Lab:see note - [facility] LBPROF 14(COMP METB) Reviewed date:06/16/2024 06:41:34 PM Interpretation: Performing Lab: Notes/Report: [facility] ,Vpjizq112697-856 mmol/LPotassium3.43.5-5.1 mmol/EMlvxyqmr36396-064 mmol/LCarbon Obzqejh23.721.0-32.0 mmol/LAnion Gap15.9Hnqwjba2392-646 mg/dLBlood Urea Nitrogen 10.07.0-18.0 mg/dLCreatinine1.050.55-1.02 mg/dLEstimated GFR ( Nidhi>60 >=60 mL/min/1.73m 2Estimated GFR (Non- Ame59>=60 mL/min/1.73m 2BUN Creatinine Ratio9.7Zatyayk5.88.5-10.1 mg/dLBilirubin Total0.50.2-1.0 mg/dL Aspartate Amino Ghrfbibffrx4887-33 U/LAlanine Ravparrpcjkcuuhg8555-09 U/L Alkaline Dwzeydqtjbk0110-456 U/LTotal Protein6.86.4-8.2 g/dLAlbumin Level3.83.4- 5.0 g/dLGlobulin3.0Albumin Globulin Ratio1.3Performing Lab:see note - [facility] LBT4 Reviewed date:06/16/2024 06:41:34 PM Interpretation: Performing Lab: Notes/Report: [facility] ,T4 Yhzxynmze46.304.80-13.90 ug/dLPerforming Lab:see note - [facility] LBTSH Reviewed date:06/16/2024 06:41:34 PM Interpretation: Performing Lab: Notes/Report: [facility] ,Thyroid Stimulating Hormone1.2610.358-3.740 uIU/mLPerforming Lab:see note - [facility] LBVITAMIN D 25 [place] Reviewed date:06/16/2024 06:41:34 PM Interpretation: Performing Lab: Notes/Report: [facility] ,Vitamin D54.1 30-100 ng/mL Vit D sufficient 20-<30 ng/mL Vit D insufficient <20 ng/mL Vit D deficient >100 ng/mL Potential Toxicity Performing Lab:see note - [facility] LBCA echo doppler complete Reviewed date:07/07/2024 07:02:08 PM Interpretation: Performing Lab: Notes/Report: Source Facility: [place] [address] Cardiology Report Signed Patient: HERNAN MCDONALD MR#: [id number] : 1985 Acct:[id number] Age/Sex: 38 / F ADM Date: 07/07/24 Loc: CARD Attending Dr: Sheri Morel M.D. Ordering Physician: Sheri Morel M.D. Date of Service: 07/07/24 Procedure(s): CA echo doppler complete Accession Number(s): [id number] cc: Sheri Morel M.D. Patient Name: HERNAN MCDONALD MR#: [id number] : 1985 Exam Date: 07/07/2024 Ordering Doctor: DR Sheri Morel . ECHOCARDIOGRAM REPORT PROCEDURE: CA ECHO DOPPLER COMPLETE INDICATIONS: Fatigue COMPARISON: None. DESCRIPTION: COMPLETE ECHOCARDIOGRAM Real-time transthoracic echocardiography with 2D, M-mode, spectral and color flow Doppler performed. QUALITY: Technical quality was good. LEFT VENTRICLE: Normal chamber size. Normal left ventricular wall thickness. LV EF: Global left ventricular systolic function is normal; visually estimated ejection fraction is 55 to 60%. No significant wall motion abnormalities. DIASTOLIC: Normal diastolic function. ATRIAL SEPTUM: Visually appears intact. LEFT ATRIUM: Normal chamber size. RIGHT ATRIUM: Normal chamber size. RIGHT VENTRICLE: Normal chamber size. Normal right ventricular systolic function. TRICUSPID VALVE: Normal mobility and thickness. No stenosis with trivial regurgitation. No evidence of pulmonary hypertension. RVSP 22 mmHg MITRAL VALVE: Normal mobility and thickness. No evidence of mitral valve stenosis. There is no mitral annular calcification. AORTIC VALVE: Normal trileaflet appearance. No visible sclerosis. Normal leaflet mobility. No evidence of aortic valve stenosis. No aortic regurgitation. AORTIC ROOT: Normal diameter and appearance. PULMONIC VALVE: Normal thickness and mobility. No stenosis. No regurgitation. PERICARDIUM: Anterior free space is seen; trivial effusion versus a fat pad. IVC: Collapses with inspirations. IVC is normal in size. CONCLUSION: 1. Global left ventricular systolic function is normal; visually estimated ejection fraction is 55 to 60% 2. Normal right ventricular size and systolic function 3. Normal diastolic function 4. The left atrium is normal in size 5. No significant valvular abnormalities 6. Anterior free space; trivial effusion versus fat pad Adult Echocardiography Procedure Report Left Ventricle LVEDD (3.7 - 5.6 cm): 4.83 cm LVESD (2.2 - 4.0 cm): 3.15 cm LVIVS thickness (0.6 - 1.2 cm): 0.75 cm LVPW thickness (0.5 - 1.0 cm): 0.81 cm e': 0.10 m/s E - e': 7.08 LVOT Max Gradient: 2.60 mm[Hg] LVOT Area (cm2): 0.81 m/s Peak Velocity (LVOT): 0.81 m/s Mean Velocity (LVOT): 0.53 m/s LVOT Diameter 2.37 cm Left Atrium LA Volume Index (2D A2C): 32.49 ml/m2 Left Atrium Systolic Dimension: 3.27 cm Mitral Valve MV E to A Ratio: 1.70 Mitral Valve A-Wave Peak Velocity: 0.44 m/s Mitral Valve E-Wave Peak Velocity: 0.74 m/s Right Ventricle Aorta AO Root Diam: 3.31 cm Aortic Valve AoV Area (Peak Josr): 3.30 cm2, 3.30 cm2 AoV Area (VTI): 3.22 cm2, 3.22 cm2 Peak Velocity(Antegrade Flow): 1.08 m/s Peak Gradient(Antegrade Flow): 4.63 mm[Hg] Mean Velocity(Antegrade Flow): 0.67 m/s Mean Gradient(Antegrade Flow): 2.20 mm[Hg] Velocity Time Integral: 24.68 cm Tricuspid Valve Peak Velocity (Regurgitant Flow): 2.19 m/s Pulmonic Valve Mean Gradient: 2.54 mm[Hg] Mean Velocity: 0.75 m/s Peak Velocity: 1.07 m/s, 1.02 m/s Peak Gradient: 4.14 mm[Hg], 4.54 mm[Hg] Right Atrium Right Atrium Systolic Pressure: 37.84 ml, 37.84 ml Dictated by: Marlene Chowdary M.D. on 07/07/2024 at 13:33 Approved by: Marlene Chowdary M.D. on 07/07/2024 at 13:36 Dictated By: Marlene Chowdary M.D. Signed By: 07/07/24 1337 DD/ 35 TD/TT: Infrastructure Director:ECG 12 lead Reviewed date:10/05/2024 07:37:52 PM Interpretation: Performing Lab: Notes/Report: Source Facility: [place] [address] [place] [address] Electrocardiograph Report Signed Patient: HERNAN MCDONALD MR#: [id number] : 1985 Acct:[id number] Age/Sex: 39 / F ADM Date: 10/05/24 Loc: ER Attending Dr: Ordering Physician: Doug Torres M.D. Date of Service: 10/05/24 Procedure(s): ECG 12 lead Accession Number(s): [id number] cc: [facility] Test Date: 2024-10-05 Pat Name: HERNAN MCDONALD Department: Room: - Gender: Female Hedis Manager: : 1985 Requested By: 1030 Order Number: [id number] Reading MD: LORRI EDWARDS M.D. Measurements Intervals [place] Rate: 63 P: 67 CT: 154 QRS: 74 QRSD: 90 T: 73 QT: 388 QTc: 395 Interpretive Statements [address] ELEV, PROBABLE NORMAL EARLY REPOL PATTERN 9110 normal ECG Compared to ECG 02/04/2019 19:07:27 Sinus arrhythmia no longer present Possible ischemia no longer present Electronically Signed On 10-05-2024 18:09:42 EDT by LORRI EDWARDS M.D. Dictated By: LORRI EDWARDS Signed By: 10/05/24 1810 DD/ 1715 TD/TT: Infrastructure Director:Blood Culture 1 Reviewed date:10/30/2024 03:35:21 PM Interpretation: Performing Lab: Notes/Report: [facility] ,Blood Culture 1See Below For Report NG5D NO GROWTH AT 5 DAYS.^NO GROWTH AT 5 DAYS. Blood Culture 1 Performing Lab:see note - [facility] LBBlood Culture 2 Reviewed date:10/30/2024 03:35:21 PM Interpretation: Performing Lab: Notes/Report: [facility] ,Blood Culture 2See Below For Report Blood Culture 2 NG5D NO GROWTH AT 5 DAYS.^NO GROWTH AT 5 DAYS. Performing Lab:see noteML - [facility] LBErythrocyte Sedimentation Rate Reviewed date:10/25/2024 08:36:42 AM Interpretation: Performing Lab: Notes/Report: [facility] ,Erythrocyte Sedimentation Rate3<=20 mm/hrPerforming Lab:see note - [facility] LBCT head/brain wo con Reviewed date:10/05/2024 06:07:08 PM Interpretation: Performing Lab: Notes/Report: Source Facility: [facility]-[address] [place] [address] [address] [address] Scan Report Signed Patient: HERNAN MCDONALD MR#: [id number] : 1985 Acct:[id number] Age/Sex: 39 / F ADM Date: 10/05/24 Loc: ER Attending Dr: Ordering Physician: Doug Torres M.D. Date of Service: 10/05/24 Procedure(s): CT head/brain wo con Accession Number(s): [id number] cc: Sheri Morel M.D. [place] [address] Patient Name: HERNAN MCDONALD MRN: [id number] date: 1985 Sex: F Assigned Patient Location: ER Current Patient Location: ER Accession/Order Number: [id number] Exam Date: 10/05/2024 16:52 Report Date: 10/05/2024 16:54 At the request of: DOUG TORRES MD Procedure: CT head/brain wo con CT head/brain wo con 10/05/2024 4:28 PM SIGNS AND SYMPTOMS: Shaky, therapeutic lumbar puncture last week TECHNIQUE:Multi-detector CT axial slices of the brain were obtained without IV contrast. CT was performed with one or more of the following dose reduction techniques: Automated exposure control, adjustment of the mA and/or kV according to patient size, or use of iterative reconstruction technique. COMPARISON: None. FINDINGS: There is no shift of the midline structures, acute intracranial bleeding, mass effects, or evidence of acute ischemia. The ventricular system is normal in size. The brainstem and the cerebellum are unremarkable. Their is flattening of the pituitary within the sella. The visualized intraorbital contents, the visualized paranasal sinuses, and the infratemporal soft tissues show no acute abnormality. The osseous structures in the skull base and the calvarium show no abnormality. CT/CT head/brain wo con IMPRESSION: No acute intra-abdominal pathology. There is flattening of the pituitary within the sella consistent with a history of intracranial hypertension. Impression dictated by: Dorian Hopkins M.D. 10/05/2024 4:54 PM Dictation Location: [place] [address] Electronically authenticated by: [id number] Y Date: 10/05/2024 16:54 Dictated By: Dorian Hopkins M.D. Signed By: 10/05/241656 DD/ 53 TD/TT: Infrastructure Director:PROF RAAD Rowland ([facility]) Reviewed date:10/05/2024 06:07:08 PM Interpretation: Performing Lab: Notes/Report: [facility] ,Odvbvj525115-895 mmol/LPotassium4.03.5-5.1 mmol/RTkoxjonr41815-297 mmol/LCarbon Aungcjp30.521.0-32.0 mmol/LAnion Gap12.7Ldseogp3010-980 mg/dLBlood Urea [place]na[place]hee27.07.0-18.0 mg/dLCreatinine1.070.55-1.02 mg/dLEstimated GFR ( Nidhi>60>=60 mL/min/1.73m 2Estimated GFR (Non- Ame57>=60 mL/min/1.73m 2 BUN Creatinine Ratio13.3Kyuyfil1.28.5-10.1 mg/dLPerforming Lab:see noteML - [facility] LBXR acute abdomen series Reviewed date:06/19/2024 11:05:23 AM Interpretation: Performing Lab: Notes/Report: Source Facility: [facility]-[address] [place] [address] [place] [address] XRay Report Signed Patient: HERNAN MCDONALD MR#: [id number] : 1985 Acct:[id number] Age/Sex: 38 / F ADM Date: 06/15/24 Loc: RAD Attending Dr: Sheri Morel M.D. Ordering Physician: Sheri Morel M.D. Date of Service: 06/15/24 Procedure(s): XR acute abdomen series Accession Number(s): [id number] cc: Sheri Morel M.D. [place] [address] Patient Name: HERNAN MCDONALD MRN: [id number] date: 1985 Sex: F Assigned Patient Location: [facility] Current Patient Location: Accession/Order Number: [id number] Exam Date: 06/15/2024 17:10 Report Date: 06/17/2024 11:52 At the request of: SHERI MOREL Procedure: XR acute abdomen series EXAMINATION: XR acute abdomen series HISTORY: Kidney Stones COMPARISON: No relevant comparison available. FINDINGS: KIDNEY/URETER - RIGHT: No visible renal or ureteral calcifications. KIDNEY/URETER - LEFT: No visible renal or ureteral calcifications. PELVIS: No visible ureteral calcifications. Any visible calcifications favor phleboliths. BOWEL: No abnormal dilation or deviation. Moderate stool in the descending colon BONES: No acute abnormality. Rotatory levocurvature centered at L3 OTHER: Negative. No abnormal gaseous collections. XR/XR acute abdomen series IMPRESSION: Clear lungs No definite urinary tract calculi Electronically authenticated by: YOLIE SHAH Date: 06/17/2024 11:52 Dictated By: Yolie Shah M.D. Signed By: 06/17/24 1155 DD/ 1152 TD/TT: Infrastructure Director:Urine Culture, Routine Reviewed date:06/19/2024 11:05:23 AM Interpretation: Performing Lab: Notes/Report: [facility] ,Urine Culture, RoutineSee Below For ReportUrine Culture, RoutineUrine Culture, RoutineNo growthUrine Culture, RoutineUrine Culture, RoutinePerformed at: - [facility] ToutleUrine Culture, RoutineUrine Culture, [address] [place], [place] [id number] Culture, RoutineUrine Culture, RoutineLab Director: Lonnie Elise PhD, Phone: [phone] Culture, RoutinePerforming Lab:see note SEE REPORT - Traffic Engineering Technician Id information not found for OBX-specific print line inspector legend LC - [facility] LB UA RANDOM W or MICROSCOPIC Reviewed date:06/16/2024 06:41:34 PM Interpretation: Performing Lab: Notes/Report: [facility] ,Color UrineLT. YELLOWYELLOWClarity UrineCLEARCLEARSpecific [place] Urine<=1.005 1.005-1.025pH Urine6.05.0-9.0Protein UrineNEGATIVENEG/TRACE mg/dLGlucose Urine UANEGATIVENEGATIVE mg/dLBilirubin UrineNEGATIVENEGATIVEKetones UrineNEGATIVE NEGATIVE mg/dLBlood UrineNEGATIVENEGATIVENitrite UrineNEGATIVENEGATIVE Urobilinogen Urine0.20.2-1.0 EU/dLLeukocyte Esterase UrineNEGATIVENEGATIVEWBC Urine0-2NONE SEEN #/HPFRBC Urine0-20-2 #/HPFBacteria UrineNONE SEENNONE SEEN #/HPFMucus UrineNONE SEENNONE SEENSquamous Epithelial Cell UrineFEWNONE/RARE #/LPFCrystals Seen?None SeenNone Seen #/HPFCast Seen?NONE SEENNONE SEEN #/LPF Performing Lab:see noteML - [facility] LBCBC AUTO DIFF Reviewed date:06/16/2024 06:41:34 PM Interpretation: Performing Lab: Notes/Report: [facility] ,White Blood Count8.84.0-11.0 10 3/uLRed Blood Count4.044.20-5.40 10 6/uL Gjqahepbwm24.612.0-16.0 g/wPAsedwygswb84.336.0-48.0 %Mean Corpuscular Eakjzd70.4 81.0-99.0 fLMean Corpuscular Kvtbamvval20.226.7-34.0 pgMean Corpuscular HGB Conc 35.729.9-35.2 g/dLRed Cell Distribution Width11.511.0-15.0 %Platelet Hhcht038 150-450 10 3/uLMean Platelet Volume9.39.5-13.5 fLNeutrophils Percent Auto46.8 43.0-75.0 %Lymphocytes Percent Auto43.020.5-60.0 %Monocytes Percent Auto4.81.7- 12.0 %Eosinophils Percent Auto4.80.9-7.0 %Basophils Percent Auto0.50.2-2.0 % Immature Granulocytes Pct Auto0.10.0-0.5 %Neutrophils Absolute Auto4.11.4-6.5 10 3/uLLymphocytes Absolute Auto3.81.2-3.8 10 3/uLMonocytes Absolute Auto0.40.3- 0.8 10 3/uLEosinophils Absolute Auto0.40.0-0.7 10 3/uLBasophils Absolute Auto0.0 0.0-0.1 10 3/uLImmature Granulocytes Abs Auto0.010.00-0.03 10 3/uLPerforming Lab:see noteML - [facility] LBUS right upper quadrant Reviewed date:06/11/2024 04:03:34 PM Interpretation: Performing Lab: Notes/Report: Source Facility: [facility]-[address] [place] [address] [place] [address] Ultrasound Report Signed Patient: HERNAN MCDONALD MR#: [id number] : 1985 Acct:[id number] Age/Sex: 38 / F ADM Date: 06/09/24 Loc: ER Attending Dr: Ordering Physician: Erica Lantigua Date of Service: 06/09/24 Procedure(s): US right upper quadrant Accession Number(s): [id number] cc: Sheri Morel M.D.; Erica Lantigua [place] [address] Patient Name: HERNAN MCDONALD MRN: [id number] date: 1985 Sex: F Assigned Patient Location: ER Current Patient Location: ER Accession/Order Number: [id number] Exam Date: 06/09/2024 17:15 Report Date: 06/09/2024 18:45 At the request of: ERICA LANTIGUA Procedure: US right upper quadrant EXAM: Abdominal ultrasound limited CLINICAL INDICATION: RUQ pain. COMPARISON: CT scan dated 10/06/2013 TECHNIQUE: Grayscale and color Doppler imaging was performed of the right upper quadrant abdomen. FINDINGS: Liver: Possible mild diffuse hepatic steatosis. No hepatomegaly. No abnormal hepatic masses. Portal and hepatic veins are grossly patent. Gallbladder: Cholecystectomy. Biliary: No intrahepatic biliary ductal dilation. Common bile duct measures 3 mm. Kidneys: No right hydronephrosis. No sonographically evident right renal calculi. No right renal masses. Right kidney measures 10.9 cm length. Echogenic focus along the right lower pole calyx measuring up to 7 mm. Aorta/IVC: Patent and normal caliber where visualized. No ascites. US/US right upper quadrant IMPRESSION: 1. No acute sonographic abnormalities in the right upper quadrant. 2. Possible mild diffuse hepatic steatosis. 3. Probable right nephrolithiasis. Electronically authenticated by: SWAPNA GOLD Date: 06/09/2024 18:45 Dictated By: Swapna Gold M.D. Signed By: 06/09/241847 DD/ 44 TD/TT: Infrastructure Director:CT abdomen pelvis wo con Reviewed date:06/11/2024 04:03:34 PM Interpretation: Performing Lab: Notes/Report: Source Facility: [place] [address] CT Scan Report Signed Patient: HERNAN MCDONALD MR#: [id number] : 1985 Acct:[id number] Age/Sex: 38 / F ADM Date: 06/09/24 Loc: ER Attending Dr: Ordering Physician: Erica Lantigua Date of Service: 06/09/24 Procedure(s): CT abdomen pelvis wo con Accession Number(s): [id number] cc: Sheri Morel M.D. [place] [address] Patient Name: HERNAN MCDONALD MRN: [facility]:[id number] date: 1985 Sex: F Assigned Patient Location: ER Current Patient Location: ER Accession/Order Number: [id number] Exam Date: 06/09/2024 18:59 Report Date: 06/09/2024 19:39 At the request of: ERICA LANTIGUA Procedure: CT abdomen pelvis wo con EXAMINATION: CT abdomen pelvis wo con, 06/09/2024 6:59 PM EST HISTORY: Kidney stone COMPARISON: None. TECHNIQUE: CT scan of the abdomen and pelvis was performed without IV contrast. CT dose reduction technique was used, including Automated Exposure Control. FINDINGS: LOWER CHEST: The visualized lungs are clear. LIVER: Unremarkable. GALLBLADDER AND BILIARY SYSTEM: Status post cholecystectomy. No intra or extrahepatic biliary ductal dilatation. SPLEEN: Unremarkable. PANCREAS: Unremarkable. ADRENAL GLANDS: Unremarkable. KIDNEYS AND URETERS: There is a 2 mm nonobstructing calculus in the upper pole the left kidney. 3 mm nonobstructing calculus in the lower pole the right kidney. No ureteral calculus or hydronephrosis. No perinephric stranding. BLADDER: Under distended. GASTROINTESTINAL TRACT: No evidence of bowel obstruction or colitis. Normal appendix. VASCULATURE: The abdominal aorta is normal in caliber. RETROPERITONEUM: No lymphadenopathy. PERITONEUM/MESENTERY: No abdominal ascites. No free air. PELVIS: No pelvic ascites or lymphadenopathy. BODY WALL: Unremarkable. BONES: Mild levoscoliosis of the lumbar spine. CT/CT abdomen pelvis wo con IMPRESSION: 1. Bilateral nephrolithiasis. No hydronephrosis. 2. Mild levoscoliosis of the lumbar spine. Electronically authenticated by: HERBERTH FITZPATRICK Date: 06/09/2024 19:39 Dictated By: Herberth Fitzpatrick M.D. Signed By: 06/09/241941 DD/ 38 TD/TT: Infrastructure Director:MARILYN Qualitative* Reviewed date:06/09/2024 07:57:21 PM Interpretation: Performing Lab: Notes/Report: [facility] ,HCG QualitativeNEGATIVENEGATIVEPerforming Lab:see noteML - [facility] LBUA (CLEAN or CATCH) HALL TENDER or MICRO IF IND. Reviewed date:06/09/2024 07:57:21 PM Interpretation: Performing Lab: Notes/Report: [facility] ,Color UrineLT. YELLOWYELLOWClarity UrineCLEARCLEARSpecific [place] Urine1.010 1.005-1.025pH Urine7.05.0-9.0Protein UrineNEGATIVENEG/TRACE mg/dLGlucose Urine UANEGATIVENEGATIVE mg/dLBilirubin UrineNEGATIVENEGATIVEKetones UrineNEGATIVE NEGATIVE mg/dLBlood UrineNEGATIVENEGATIVENitrite UrineNEGATIVENEGATIVE Urobilinogen Urine0.20.2-1.0 EU/dLLeukocyte Esterase UrineNEGATIVENEGATIVEUrine Microscopic IndicatedNOPerforming Lab:see note - [facility] LBPROF 14(COMP METB) Reviewed date:06/09/2024 07:57:21 PM Interpretation: Performing Lab: Notes/Report: [facility] ,Jzuoih722303-740 mmol/LPotassium3.53.5-5.1 mmol/ZEyuiqnto80180-222 mmol/LCarbon Khiqwks51.621.0-32.0 mmol/LAnion Gap13.2Hdcmfoj7903-276 mg/dLBlood Urea Ndkmyiwj16.07.0-18.0 mg/dLCreatinine1.090.55-1.02 mg/dLEstimated GFR ( Nidhi>60>=60 mL/min/1.73m 2Estimated GFR (Non- Ame56>=60 mL/min/1.73m 2 BUN Creatinine Ratio14.5Tdsdbow6.78.5-10.1 mg/dLBilirubin Total0.40.2-1.0 mg/dL Aspartate Amino Nziefpgyztj6610-90 U/LAlanine Jcxnykdpgzvjyxfz3516-19 U/L Alkaline Yxbjlajidtp1630-671 U/LTotal Protein6.96.4-8.2 g/dLAlbumin Level4.13.4- 5.0 g/dLGlobulin2.8Albumin Globulin Ratio1.5Performing Lab:see noteML - [facility] LBLIPASE Reviewed date:06/09/2024 07:57:21 PM Interpretation: Performing Lab: Notes/Report: [facility] ,Ypdqtm10.016.0-77.0 U/LPerforming Lab:see noteML - [facility] LBCBC AUTO DIFF Reviewed date:10/05/2024 06:07:08 PM Interpretation: Performing Lab: Notes/Report: [facility] ,White Blood Count12.94.0-11.0 10 3/uLRed Blood Count4.124.20-5.40 10 6/uL Uivjsldbbq71.912.0-16.0 g/kYLxjgefxkvb32.336.0-48.0 %Mean Corpuscular Axsoof90.5 81.0-99.0 fLMean Corpuscular Nqzubkpvra11.326.7-34.0 pgMean Corpuscular HGB Conc 34.629.9-35.2 g/dLRed Cell Distribution Width11.711.0-15.0 %Platelet Mjdeb750 150-450 10 3/uLMean Platelet Volume9.19.5-13.5 fLNeutrophils Percent Auto66.7 43.0-75.0 %Lymphocytes Percent Auto25.720.5-60.0 %Monocytes Percent Auto5.41.7- 12.0 %Eosinophils Percent Auto1.60.9-7.0 %Basophils Percent Auto0.30.2-2.0 % Immature Granulocytes Pct Auto0.30.0-0.5 %Neutrophils Absolute Auto8.61.4-6.5 10 3/uLLymphocytes Absolute Auto3.31.2-3.8 10 3/uLMonocytes Absolute Auto0.70.3- 0.8 10 3/uLEosinophils Absolute Auto0.20.0-0.7 10 3/uLBasophils Absolute Auto0.0 0.0-0.1 10 3/uLImmature Granulocytes Abs Auto0.040.00-0.03 10 3/uLPerforming Lab:see noteML - [facility] LBPROF 14(COMP METB) Reviewed date:10/25/2024 12:40:12 PM Interpretation: Performing Lab: Notes/Report: [facility] ,Qnpzkm859577-371 mmol/LPotassium3.53.5-5.1 mmol/KTyyfexxi36963-577 mmol/LCarbon Wdnojff88.721.0-32.0 mmol/LAnion Gap16.0Bckwpfo9478-695 mg/dLBlood Urea Hntmoijv50.07.0-18.0 mg/dLCreatinine0.990.55-1.02 mg/dLEstimated GFR ( Nidhi>60>=60 mL/min/1.73m 2Estimated GFR (Non- Kimberly>60>=60 mL/min/1.73m 2BUN Creatinine Ratio12.8Nqmzzrn9.28.5-10.1 mg/dLBilirubin Total0.30.2-1.0 mg/dL Aspartate Amino Gtipuemiqas9977-15 U/LAlanine Iacpnzseewwhorag1837-11 U/L Alkaline Nigsilxpedv2813-367 U/LTotal Protein6.76.4-8.2 g/dLAlbumin Level3.73.4- 5.0 g/dLGlobulin3.0Albumin Globulin Ratio1.2Performing Lab:see noteML - [facility] LBCBC AUTO DIFF Reviewed date:10/25/2024 08:15:40 AM Interpretation: Performing Lab: Notes/Report: [facility] ,White Blood Count5.94.0-11.0 10 3/uLRed Blood Count4.154.20-5.40 10 6/uL Yqmxjjgfhx71.212.0-16.0 g/nISnmhrapqta36.436.0-48.0 %Mean Corpuscular Tgfdde42.1 81.0-99.0 fLMean Corpuscular Abuuikkwuf70.826.7-34.0 pgMean Corpuscular HGB Conc 35.329.9-35.2 g/dLRed Cell Distribution Width12.311.0-15.0 %Platelet Gixje390 150-450 10 3/uLMean Platelet Volume9.89.5-13.5 fLNeutrophils Percent Auto32.2 43.0-75.0 %Lymphocytes Percent Auto55.020.5-60.0 %Monocytes Percent Auto7.81.7- 12.0 %Eosinophils Percent Auto4.30.9-7.0 %Basophils Percent Auto0.50.2-2.0 % Immature Granulocytes Pct Auto0.20.0-0.5 %Neutrophils Absolute Auto1.91.4-6.5 10 3/uLLymphocytes Absolute Auto3.21.2-3.8 10 3/uLMonocytes Absolute Auto0.50.3- 0.8 10 3/uLEosinophils Absolute Auto0.30.0-0.7 10 3/uLBasophils Absolute Auto0.0 0.0-0.1 10 3/uLImmature Granulocytes Abs Auto0.010.00-0.03 10 3/uLPerforming Lab:see noteML - [facility] LB Reason For Referral Diagnosis 1 Intracranial hyperte nsion (G93.2) Referral Organization [facility] Referring Provider First Name Agapito Referring Provider Last Name [facility] Claus Marroquin Referred Provider Specialty Neurosurgery Referral Priority Routine Diagnosis 1 Ear pain (H92.09) Referral Organization [facility] Referring Provider First Name Agapito Referring Provider Last Name Maria Teresa Referring Provider [facility] avelino Referred Provider Bairon Alicea Referred Provider Specialty Otolaryngolo gy Referral Priority Routine Medications Medication SIG (Take, Route, Frequency, Duration) Notes Start Date End Date Status Zinc 50 MG 1 tablet Orally Once a day UnknownZonisamide 100 MGas directed Orally Once a dayUnknowntiZANidine HCl 4 MG1 tablet at bedtime as needed Orally Once a dayUnknownacetaZOLAMIDE 250 MG1 tablet Orally twice dailyUnknownVentolin HFA 108 (90 Base) MCG/ACT2 puff as needed Inhalation every 4 hrs03/21/2024ctiveAdderall 20 MG1 tablet Orally Twice a day; Duration: 30 days02/21/2025tiveDepakote 500 MGas directed Orally daily 02/16/2025tiveSingulair 10 MG1 tablet Orally Once a day; Duration: 30 days 03/21/2024ctiveMagnesiumActiveMultivitamin -1 tablet Orally Once a dayActive Nicotine 21 MG/24HR1 patch to skin Transdermal Once a day01/23/2025Unknown Chantix 1 MG1 po BID Orally BID05/05/2024UnknownhydrOXYzine HCl 50 MG1 tablet as needed Orally qid; Duration: 10 days03/21/2024ctiveCetirizine HCl 10 MG1 tablet Orally Once a day; Duration: 30 days03/21/2024ctiveAmoxicillin-Pot Clavulanate 875-125 MG1 tablet Orally Twice a day; Duration: 30 days02/22/2025 Active Social History Tobacco Use: Social History Observation Description Date Details (start date - stop date) Current Smoker NA - NA Tobacco Control (Standard) Question Answer Notes Tobacco use: Current smoker AUDIT-C (Standard) Question Answer Notes Did you have a drink containing alcohol in the p ast year? No Qrxcpy5OrswralovybrmpLavtsthu Problems Problem Type SNOMED Code ICD Code Onset Dates Problem Status W/U Status Risk Notes Problem Information temporarily unavaila ble Other intervertebral disc degeneration, lumbosacral region (M51.37) ActiveconfirmedProblemInformation temporarily unavailableRheumatism, unspecified (M79.0)ActiveconfirmedProblemInformation temporarily unavailableOsteoarthritis (M19.90)ActiveconfirmedProblemInformation temporarily unavailableAsthma (J45.909)ActiveconfirmedProblemInformation temporarily unavailableAnxiety (F41.9)ActiveconfirmedProblemInformation temporarily unavailableInternal hemorrhoid (K64.8)ActiveconfirmedProblemInformation temporarily unavailable Lumbar radiculopathy (M54.16)ActiveconfirmedProblemInformation temporarily unavailableKidney stone (N20.0)ActiveconfirmedProblemInformation temporarily unavailableCervical cancer (C53.9)ActiveconfirmedProblemInformation temporarily unavailableWell adult (Z00.00)ActiveconfirmedProblemInformation temporarily unavailableSeasonal allergic rhinitis (J30.2)ActiveconfirmedProblemInformation temporarily unavailableFibromyalgia (M79.7)ActiveconfirmedProblemInformation temporarily unavailableIntracranial hypertension (G93.2)ActiveconfirmedProblem Information temporarily unavailableADHD (F90.9)Activeconfirmed Vital Signs Temperature 98.7 degrees Fahrenheit 01/23/2025 Blood pressure hpqyyjmqd68 mm Hg02/16/20250544Tlmpgi68 in02/16/2025lood pressure itiowjkt053 mm Hg02/16/20259286Ziroxq707.0 lbs1MI31.27 kg/m202/16/2025 Procedures Procedure Date Ordered Date Performed Result Body Sit e Echocardiogram 06/16/2024 N/A Encounters Encounter Location Date Provider Diagnosis [facility] [address] [place] [address] 11/24/2024 Agapito Hoy Intracranial hypertension G93.2 [facility] [address] [place] [address] 12/23/2024 Agapito Hoy Intracranial hypertension G93.2 [facility] [address] [place] [address] 01/22/2025 Agapito Hoy Intracranial hypertension G93.2 [facility] [address] [place] [address] 02/15/2025 Agapito Hoy [facility] [place] [address] 02/21/2025Doug HoyAcute non-recurrent sinusitis, unspecified location J01.90 [facility] [place] [address] 02/21/2025Doug HoyEar pain H92.09[facility] [place] [address]/oug HoyWell adult Z00.00 ; ADHD F90.9 ; Intracranial hypertension G93.2 and Lumbar radiculopathy M54.16[facility] [place] [address]/oug Hoy [facility] hemorrh[facility] K64.8[facility] [place] [address]/Doug HoyIntracranial hypertension G93.2[facility] [place] [address]/ Agapito HoyIntracranial hypertension G93.2[facility] [place] [address]/Doug HoyIntracranial hypertension G93.2[facility] [place] [address]/Doug HoyAcute non-recurrent sinusitis, unspecified location J01.90 and Nasal congestion R09.81[facility] [place] [address]/01/2025Doug HoyIntracranial hypertension G93.2 [facility] [place] [address] 02Doug HoWell adult Z00.00[facility] [place] [address]/oug [facility] [place] [address]/oug [facility]oyBV[facility] [place] [address]/oug HoWell adult Z00.00[facility] [place] [address]/oug [facility] [place] [address]/oug [facility] [place] [address]/oug [facility] [place] [address]/01/2025Doug HoyWell adult Z00.00[facility] [place] [address]/Doug [facility] [place] [address]/Doug HoyAbnormal liver function R94.5[facility] [place] [address]/10/2024 Agapito HoyFatigue R53.83[facility] [place] [address]/11/2024Doug HoyWell adult Z00.00[facility] [address] [place] [address]/01/2025Doug HoyWell adult Z00.00 and Kidney stone N20.0[facility] [place] [address]/03/2025Doug [facility] [place] [address]/03/2025Doug HoyWell adult Z00.00[facility] [place] [address]/Doug HoyWell adult Z00.00[facility] [place] [address]/Doug [facility] [place] [address]/Doug [facility] [facility] [place] [address]/Doug [facility] adult Z00.00[facility] [facility] [place] [address]/ Agapito [facility] adult Z00.00[facility] [facility] [place] [address]/Doug [facility] adult Z00.00[facility] [facility] [place] [address]/Doug [facility] [facility] [place] [address]/ Agapito HoyIntracranial hypertension G93.2[facility] [facility] [place] [address]/Doug [facility] [facility] [place] [address]/06/2024Doug [facility] [facility] [place] [address]/01/2025 Agapito [facility] [facility] [place] [address]/04/2025Doug HoyIntracranial hypertension G93.2[facility] [facility] [place] [address]/Doug [facility] [facility] [place] [address] 10/26/2024Doug HoyIntracranial hypertension G93.2 Assessments Encounter Date Diagnosis (ICD Code) Assessment Notes Treatment Notes Treatment Clinical Notes Section Notes 03/21/2024 Well adult (ICD-10 - Z00.00) 03/21/2024DHD (ICD-10 - F90.9)04/25/2024Internal hemorrhoid (ICD-10 - K64.8) firsyt time bleeding - wiling to jalen and see - if happends again - will refer to GI or surgery oeawsajt23/05/2025Well adult (ICD-10 - Z00.00)08/29/2024 Intracranial hypertension (ICD-10 - G93.2)10/05/2024Intracranial hypertension (ICD-10 - G93.2)recommending er10/06/2024Intracranial hypertension (ICD-10 - G93.2)Seeing Dr Bustamante and Dr Dara Francis- [facility] neurologyu - needs to get in much sooner thatn csiccfaeh02/15/2025Acute non-recurrent sinusitis, unspecified location (ICD-10 - J01.90)Rest and drink more liquids, especially water. You may use a humidifier or vaporizer to help keep the drainage moist. Rqrn-jvn-dvfpvlq Nasal Saline may help the stuffy and runny nose. Use Ibuprofen and or Tylenol as needed for fever, chills, body aches or pain. Children 5 years old should not be given nxwg-igb-nbakkbn cough and cold medications such as guaifenesin and dextromethorphan. If you're over age 5, you may try jamr-hgf-mqzfxrb cold medications such as guaifenesin and dextromethorphan, or multi-symptom cold reliever such as Dayquil to help reduce the symptoms. Antibiotics have been pre scribed. You should take these until completed and follow the directions. Antibiotics can sometimescause upset stomach, and in rare cases, serious allergic reactions or serious gastrointestinal problems. If you start having severe abdominal pain, severe vomiting, or bloody diarrhea, you should be r eevaluated by your physician or urgent care immediately. Follow up with your Primary Care Provider or return to clinic if symptoms do not improve within 3-5 days02/16/2025Intracranial hypertension (ICD-10 - G93.2)Had mri done without contrast - concerned with MS - needs MRI brain wihtnad without contrast - + pap illadema - and vertigo and consistent headaches and myalgia, poor memory - all concernign for MS04/19/2024Well adult (ICD-10 - Z00.00)05/19/2024Well adult (ICD-10 - Z00.00)06/06/2024bnormal liver function (ICD-10 - R94.5)06/16/2024 Fatigue (ICD-10 - R53.83)06/17/2024Well adult (ICD-10 - Z00.00)06/19/2024Well adult (ICD-10 - Z00.00)06/21/2024Well adult (ICD-10 - Z00.00)06/27/2024Well adult (ICD-10 - Z00.00)07/27/2024Well adult (ICD-10 - Z00.00)08/24/2024Well adult (ICD-10 - Z00.00)08/25/2024Well adult (ICD-10 - Z00.00)09/26/2024 Intracranial hypertension (ICD-10 - G93.2)10/20/2024Intracranial hypertension (ICD-10 - G93.2)10/26/2024Intracranial hypertension (ICD-10 - G93.2)11/24/2024 Intracranial hypertension (ICD-10 - G93.2)12/23/2024Intracranial hypertension (ICD-10 - G93.2)01/22/2025Intracranial hypertension (ICD-10 - G93.2)02/21/2025 Acute non-recurrent sinusitis, unspecified location (ICD-10 - J01.90)02/21/2025 Ear pain (ICD-10 - H92.09)06/19/2024Kidney stone (ICD-10 - N20.0)01/23/2025Nasal congestion (ICD-10 - R09.81)03/21/2024Intracranial hypertension (ICD-10 - G93.2)03/21/2024Lumbar radiculopathy (ICD-10 - M54.16) Plan Of Treatment Pending Test Test Name Order Date HEMOGLOBIN A1C (GLYCO) 06/15/2024 IRON, TOTAL 06/15/2024 LIPID PANEL (CHOL/TRIG/HDL/LDL) 06/15/19 25 CBC WITH DIFF 06/15/2024 VITAMIN D, 25 LEVEL (TOTAL) 06/15/2024 Echocardiogram 06/16/2024 CT Abdomen and Pelvis w/o contrast 06/19 Urinalysis Microscopic 06/15/2024 Insulin Level 06/15/2024 US Liver and Pancreas 06/06/2024 CULTURE URINE 06/15/2024 PROF 14(COMP METB) 10/05/2024 SED RATE WESTERGREN 10/05/2024 MRI BRAIN WO W CON 02/16/2025 XR ABD FLAT UP_PA CH 06/15/2024 THYROID PANEL (T4/TSH/FREE T3) Blood Culture 1 10/05/2024 Blood Culture 2 10/05/2024 MM diagnostic mammo BI 06/15/2024 BI US BREAST COMPLETE LEFT 06/15/2024 CMP (COMP MET HIGGINS) w/eGFR CKD-EPI 2024 Next Appt Details Provider Name:Agapito Morel, 11:00:00 AM, [address] [place], [address], Insurance Providers Payer Name Payer Address Payer Phone Subscriber Number Group Number Insured Name Patient Relationship to Insured Coverage Start Date Coverage End Date [employer] [place] [employer] [address] [address] [place] [address] [id number] Nabil Mcdonald - patient is the insured Medical (General) History Medical History History ICD Code Asthma J45.909 Anxiety F41.9 Seasonal allergic rhinitis J30.2 Cervical cancer C53.9 Ovarian cyst N83.209 Fibromyalgia M79.7 Osteoarthritis M19.90 Rheumatism, unspecified M79.0 Other intervertebral disc degeneration, lumbosacral region M51.37 Surgical History Surgery Date(Month/Year) gallbladder left arm surgeryHysterectomyTonsillectomy
--- OUTSIDE RECORDS SUMMARY | 2025-03-03 12:49 | XMS_ITS | Encounter Summary ---
Author Organization [facility] Address [facility] [place] [address] Care Team Providers Care Stock Grader Name Role Phone Yoan Morel MD Primary Care Provider + Lloyd Sherwood MD Unavailable Source Comments In the event this information is protected by the Federal Confidentiality of Alcohol and Drug AbusePatient Records regulations: The Federal rules restrict any use of the information to criminally investigate or prosecute any alcohol or drug abuse patient.[facility] Encounter Details DateTypeDepartmentCare Team (Latest Contact Info)Njlgbzgqqmc82/12/2025Results Follow-Up Ophthalmology [address] [id number] Lloyd Sherwood MD [address] [place] [id number] Social History Tobacco UseTypesPacks/DayYears UsedDateSmoking Tobacco: Every DayCigarettes Smokeless Tobacco: Never Comments:1 pack every 2 days Alcohol UseStandard Drinks/WeekCommentsNot Currently0 (1 standard drink = 0.6 oz pure alcohol)[facility] UtilitiesAnswerDate RecordedIn the past 12 months has the electric, gas, oil, or water company threatened to shut off services in your home?No12/16/2024PHQ-2AnswerDate RecordedPHQ-2 mcnyv874Hunger Vital Sign AnswerDate RecordedWithin the past 12 [...] 09/29/2023State Score (1-10), lower number is lower envo284ata from: https://www.neighborhoodatlas.medicine.[facility].edu/. Last address used for agunezihcoh[address]4CommentsNoSex and Gender Information ValueDate RecordedSex Assigned at NgzvjGxperh57/23/2023 3:16 PM ESTLegal Sex Ijscom8507/03/2022 3:13 PM ESTGender YnxwvcipCzqirp81/23/2023 3:16 PM ESTSexual OrientationNot on filedocumented as of this encounter Functional Status * Are you deaf or do you have serious difficulty hearing?AnswerDate of WpxarzdsofZanletTk25/09/2025 10:21 AM Asher Luevano RN * Are you blind or do you have serious difficulty seeing, even when wearing glasses?AnswerDate of DofzeufjftPxtelcEm31/09/2025 10:21 AM Asher Luevano RN * Do you have serious difficulty walking or climbing stairs?AnswerDate of DcogerkwveEzcazbMp29/09/2025 10:21 AM Asher Luevano RN * Do you have difficulty dressing or bathing?AnswerDate of AssessmentAuthorNo 12/17/2024 10:21 AM Asher Luevano RN * Because of a physical, mental, or emotional condition, do you have difficulty doing errands alone such as visiting a doctor's office or shopping?AnswerDate of GicmqitmszVwregrTw46/09/2025 10:21 AM Asher Luevano RN documented as of this encounter Mental Status * Because of a physical, mental, or emotional condition, do you have serious difficulty concentrating, remembering, or making decisions?AnswerEntry Date YlqrwzOx76/09/2025 10:21 AM Asher Luevano RN documented in this encounter Plan of Treatment DateTypeDepartmentCare Team (Latest Contact Info)Sdiinzzvkou97/06/2025 9:30 AM ESTOffice Visit [facility] [address] [place] [address] Nati Noble PA-C [address] [place] [address] Next Available New Fanbnpl2403/23/2025 8:40 AM ESTOffice Visit Orthopaedics [address] [place] [address] Linda Malik PA-C [address] [place], [place] [phone] Dx: Carpal tunnel syndrome, bilateral [G56.03]04/18/2025 7:30 AM ESTOffice Visit [facility] Ophthalmology [address] [address] Lloyd Sherwood MD [address] [place] [address] Please set the patient up for a 2 month virtual visit for history of IIH 04/24/2025 2:00 PM ESTOffice Visit Functional Medicine [address] [address] Janina Lock APRN.[employer] [address] [phone] Multiple symptoms, lifestyle gcgiuiopzx07/17/2025 1:30 PM ESTOffice Visit [facility] [place] [address] Joyce Murguia MD [address] [place], [place] [phone] Follow up06/15/2025 1:45 PM ESTOffice Visit [facility] [address] [place] [address] [place] [address] [place] [address] Next Available New Patientdocumented as of this encounter Visit Diagnoses Not on filedocumented in this encounter Care Teams Team MemberRelationshipSpecialtyStart DateEnd Date Yoan Morel MD [address] [place] [address] PCP - GeneralFamily Medicine06/06/24 Lloyd Sherwood MD [address] [place] [address] ReferringOphthalmology12/14/24documented as of this encounter
--- OUTSIDE RECORDS SUMMARY | 2025-03-03 12:49 | XMS_ITS | Clinical Summary ---
Author Organization [facility] Address [address] [facility] [place] [address] Care Team Providers Care Press Tender Long Goods Name Role Phone Unavailable Primary Care Provider Unavailabl e Source Comments The following information is NOT included in Care Everywhere downloads:Psychiatric notes, ECG results, Cardiac Rehab notes, Pulmonary Function notes, data from SmartForms (includes but not limited toPregnancy data,audiograms, eye exams, pre-surgical evaluation notes, well-child exam data).[facility] Allergies Active AllergyReactionsCriticalityNoted CkjwDrfddquzUaocsmhh54/29/2024Sulfa Qumivlglxai71/29/2024 Immunizations ImmunizationAdministration DatesNext DueTdap (AGU=372)05/14/2013 Social History Tobacco UseTypesPacks/DayYears UsedDateSmoking Tobacco: Never Assessed CommentsUnknownSex and Gender InformationValueDate RecordedSex Assigned at Not on fileLegal IljFeurbi46/29/2024 3:24 PM ESTGender IdentityNot on fileSexual OrientationNot on file Last Filed Vital Signs Vital SignReadingTime TakenCommentsBlood Xdhifufq439/7239707/09/2023 3:30 PM EST Fcfwj756307/09/2023 3:30 PM WOBIwifpdlbebm97.8 ??C (98.2 ??F)07/09/2023 3:30 PM ESTRespiratory Zdmi581607/09/2023 3:30 PM ESTOxygen Noisboawkr11%07/09/2023 3:30 PM ESTInhaled Oxygen Concentration--Weight--Height--Body Mass Index-- Plan of Treatment Health MaintenanceDue DateLast DoneCommentsMammography (shared decision-making, age 35-39)1985HIV Test2000Hepatitis C Lrckaswj26/20/2004Hepatitis A (HAV) Vaccine (optional start 19+ years)2004Hepatitis B (HBV) Vaccine (1 of 3 - 19+ 3-dose series)2004Pap Smear2006HPV Vaccine (optional start 27-45 years)2012Tetanus (Td or Tdap) Clccpii48/04/12489905/14/2013 COVID-19 Vaccine (1 - 2024- season)2025Influenza Vaccine (#1)2025 Shingles (RZV) Vaccine (1 of 2)07/29/2035Tdap XxvastkBvlxksvis86/04/2014 MammographyDiscontinuedPneumococcal Vaccine(s)Aged OutNo longer eligible based on patient's age to complete this topic Insurance * Guarantor: Karolina Nicole TypeRelation to PatientDate of BirthPhone Billing AddressPersonal/IjqqchUvxs37/20/1986 [address] [place] [address]
--- OUTSIDE RECORDS SUMMARY | 2025-03-03 12:49 | XMS_ITS | Encounter Summary ---
Author Organization [facility] Address [address] [place] [address] Care Team Providers Care Concrete Curer Name Role Phone Yoan Morel MD Primary Care Provider + Lloyd Sherwood MD Unavailable Source Comments In the event this information is protected by the Federal Confidentiality of Alcohol and Drug AbusePatient Records regulations: The Federal rules restrict any use of the information to criminally investigate or prosecute any alcohol or drug abuse patient.[facility] Encounter Details DateTypeDepartmentCare Team (Latest Contact Info)Sikgvdkmrms67/23/2025 Patient Msg Neurology [address] [place] [address] Katarina Alves MD [address] [place] [address] Hospital follow-up Social History Tobacco UseTypesPacks/DayYears UsedDateSmoking Tobacco: Every DayCigarettes Smokeless Tobacco: Never Comments:1 pack every 2 days Alcohol UseStandard Drinks/WeekCommentsNot Currently0 (1 standard drink = 0.6 oz pure alcohol)[facility] UtilitiesAnswerDate RecordedIn the past 12 months has the electric, gas, oil, or water company threatened to shut off services in your home?No12/16/2024PHQ-2AnswerDate RecordedPHQ-2 jklyu439Hunger Vital Sign AnswerDate RecordedWithin the past 12 [...] 09/29/2023State Score (1-10), lower number is lower kobu315ata from: https://www.neighborhoodatlas.medicine.[facility].edu/. Last address used for ag[address]4CommentsNoSex and Gender Information ValueDate RecordedSex Assigned at GsdlqBwshju33/23/2023 3:16 PM ESTLegal Sex Tezheb7707/03/2022 3:13 PM ESTGender VgunkqbwYjxgxy87/23/2023 3:16 PM ESTSexual OrientationNot on filedocumented as of this encounter Functional Status * Are you deaf or do you have serious difficulty hearing?AnswerDate of WfjhsvruxfDfcwrgKq28/22/2025 3:49 PM Adriane Davis RN * Are you blind or do you have serious difficulty seeing, even when wearing glasses?AnswerDate of FyxurtuankPzfdcyEej21/22/2025 3:49 PM Adriane Davis RN * Do you have serious difficulty walking or climbing stairs?AnswerDate of GaoixsfcvaYahazjIc89/22/2025 3:49 PM Adriane Davis RN * Do you have difficulty dressing or bathing?AnswerDate of AssessmentAuthorNo 03/01/2025 3:49 PM Adriane Davis RN * Because of a physical, mental, or emotional condition, do you have difficulty doing errands alone such as visiting a doctor's office or shopping?AnswerDate of KvzuizxhcpKdiiywPw47/22/2025 3:49 PM Adriane Davis RN documented as of this encounter Mental Status * Because of a physical, mental, or emotional condition, do you have serious difficulty concentrating, remembering, or making decisions?AnswerEntry Date DxprnyFl07/22/2025 3:49 PM Adriane Davis RN documented in this encounter Plan of Treatment DateTypeDepartmentCare Team (Latest Contact Info)Nqbjosjrvec22/06/2025 9:30 AM ESTOffice Visit [facility] [address] [place] [address] Nati Noble PA-C [address] [place] [address] Next Available New Jponskt8803/23/2025 8:40 AM ESTOffice Visit Orthopaedics [address] [place] [address] Linda Malik PA-C [address] [place] [address] Dx: Carpal tunnel syndrome, bilateral [G56.03]04/18/2025 7:30 AM ESTOffice Visit [facility] [address] [address] Lloyd Sherwood MD [address] [place] [address] Please set the patient up for a 2 month virtual visit for history of IIH 04/24/2025 2:00 PM ESTOffice Visit Functional Medicine [address] [address] Janina Lock APRN.ANIMAL HOSPITAL OFFICE SUPERVISOR [address] [address] Multiple symptoms, lifestyle yjyotdijly51/17/2025 1:30 PM ESTOffice Visit [address] [phone] Joyce Murguia MD [address] [place], [place] [phone] Follow up06/15/2025 1:45 PM ESTOffice Visit [facility] [address] [place] [address] [place] [address] [place] [address] Next Available New Patientdocumented as of this encounter Visit Diagnoses Not on filedocumented in this encounter Care Teams Team MemberRelationshipSpecialtyStart DateEnd Date Yoan Morel MD [address] [place] [address] PCP - GeneralFamily Medicine06/06/24 Lloyd Sherwood MD [address] [place] [address] ReferringOphthalmology12/14/24documented as of this encounter
--- OUTSIDE RECORDS SUMMARY | 2025-03-03 12:49 | XMS_ITS | Encounter Summary ---
Author Organization [facility] Address [facility] [place] [address] Care Team Providers Care It Manager Name Role Phone Yoan Morel MD Primary Care Provider +-0 Lloyd Sherwood MD Unavailable Source Comments In the event this information is protected by the Federal Confidentiality of Alcohol and Drug AbusePatient Records regulations: The Federal rules restrict any use of the information to criminally investigate or prosecute any alcohol or drug abuse patient.[facility] Encounter Details DateTypeDepartmentCare Team (Latest Contact Info)Wiabtbzuaid80/24/2025Telephone Allergy [address] [facility] [place] [phone] Joslyn Ag RN Social History Tobacco UseTypesPacks/DayYears UsedDateSmoking Tobacco: Every DayCigarettes Smokeless Tobacco: Never Comments:1 pack every 2 days Alcohol UseStandard Drinks/WeekCommentsNot Currently0 (1 standard drink = 0.6 oz pure alcohol)[facility] UtilitiesAnswerDate RecordedIn the past 12 months has the electric, gas, oil, or water company threatened to shut off services in your home?No12/16/2024PHQ-2AnswerDate RecordedPHQ-2 jtamg174Hunger Vital Sign AnswerDate RecordedWithin the past 12 [...] 09/29/2023State Score (1-10), lower number is lower [id number] from: https://www.neighborhoodatlas.medicine.[facility].edu/. Last address used for f[address]4CommentsNoSex and Gender Information ValueDate RecordedSex Assigned at ZgfbfQtpnap00/23/2023 3:16 PM ESTLegal Sex Xsqyux3607/03/2022 3:13 PM ESTGender ZpfyvlqsPjjelw59/23/2023 3:16 PM ESTSexual OrientationNot on filedocumented as of this encounter Functional Status * Are you deaf or do you have serious difficulty hearing?AnswerDate of BlhtdufikbRyggwyWp57/22/2025 3:49 PM Adriane Davis RN * Are you blind or do you have serious difficulty seeing, even when wearing glasses?AnswerDate of PypkmcodkdZbixaeNrm42/22/2025 3:49 PM Adriane Davis RN * Do you have serious difficulty walking or climbing stairs?AnswerDate of YyaobaxqmmPgwdqlDh03/22/2025 3:49 PM Adriane Davis RN * Do you have difficulty dressing or bathing?AnswerDate of AssessmentAuthorNo 03/01/2025 3:49 PM Adriane Davis RN * Because of a physical, mental, or emotional condition, do you have difficulty doing errands alone such as visiting a doctor's office or shopping?AnswerDate of NaxsuvazfyNohcwoSo71/22/2025 3:49 PM Adriane Davis RN documented as of this encounter Mental Status * Because of a physical, mental, or emotional condition, do you have serious difficulty concentrating, remembering, or making decisions?AnswerEntry Date GfqkkkEf87/22/2025 3:49 PM Adriane Davis RN documented in this encounter Miscellaneous Notes * Telephone Encounter - Joslyn Ag RN - 03/03/2025 9:20 AM EDT Pt saw Dr. Murguia today via virtual visit. 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 PSS: Please assist to schedule PFTs order placed. And ENT consult placed. documented in this encounter Plan of Treatment DateTypeDepartmentCare Team (Latest Contact Info)Lyybqpxtrah44/06/2025 9:30 AM ESTOffice Visit [facility] [address] [place] [address] Nati Noble PA-C [address] [place] [address] Next Available New Dcqmjei8203/23/2025 8:40 AM ESTOffice Visit Orthopaedics [address] [facility] [place] [address] Linda Malik PA-C [address] [place] [address] Dx: Carpal tunnel syndrome, bilateral [G56.03]04/18/2025 7:30 AM ESTOffice Visit [facility] [address] [address] Lloyd Sherwood MD [address] [place] [address] Please set the patient up for a 2 month virtual visit for history of IIH 04/24/2025 2:00 PM ESTOffice Visit Functional Medicine [address] [address] Janina Lock APRN.BRANCH CREDIT COUNSELOR [address] [address] Multiple symptoms, lifestyle agwfscflgx40/17/2025 1:30 PM ESTOffice Visit [facility] [place] [phone] Joyce Murguia MD [address] [place] [address] Follow up06/15/2025 1:45 PM ESTOffice Visit [facility] [address] [place] [address] [place] [address] [place] [address] Next Available New Patientdocumented as of this encounter Visit Diagnoses Not on filedocumented in this encounter Care Teams Team MemberRelationshipSpecialtyStart DateEnd Date Yoan Morel MD [address] [place] [address] PCP - GeneralFamily Medicine06/06/24 Lloyd Sherwood MD [address] [place] [address] ReferringOphthalmology12/14/24documented as of this encounter
--- OUTSIDE RECORDS SUMMARY | 2025-03-03 12:49 | XMS_ITS | Clinical Summary ---
Author Organization [employer] Address [facility] [id number] [address] [place] [address] Care Team Providers Care Curve Saw Operator Name Role Phone Unavailable Primary Care Provider Unavailabl e Social History Tobacco UseTypesPacks/DayYears UsedDateSmoking Tobacco: Never AssessedChildcare AnswerDate RaxyekfuEphuqubcqCmffjuo62/12/2019EmploymentAnswerDate Recorded YqmieuemilQxdeyjk03/12/2019CommentsUnknownSex and Gender Information ValueDate RecordedSex Assigned at BirthNot on fileLegal YpxEsigpp01/06/2015 11:32 AM EDTGender IdentityNot on fileSexual OrientationNot on file Plan of Treatment Not on file Medical Devices Not on file
--- OUTSIDE RECORDS SUMMARY | 2025-03-03 12:49 | XMS_ITS | Patient Health Record ---
Author Organization [facility] Address [address] [place] [address] Care Team Providers Care Lead Carpenter Name Role Phone Hudsondaniel Lisa Primary Care Provider Unavailabl e Allergies Allergen (clinical drug ingredient) Drug/Non Drug Allergy documented on EMR Reaction Allergy Type Onset Date Status Information temporarily unavailable SILK TAPE AND NICKEL ( uncoded) rash Allergy ActiveInformation temporarily unavailableoxyCODONE-AcetaminophenhivesDrug AllergyActiveInformation temporarily unavailableSulfamethoxazolehivesDrug AllergyActiveInformation temporarily unavailableLatexrashAllergyActive Reason For Referral No Information Medications Medication SIG (Take, Route, Frequency, Duration) Notes Start Date End Date Status Albuterol Sulfate HFA 108 (90 Base) MCG/ ACT 2 puff(s) inhaled 4 times a day as needed 05/08/2019ActiveCetirizine HCl 10 MG1 tablet Orally Once a dayActivePremarin 0.45 MG1 tablet Orally Once a dayActiveMontelukast Sodium 10 MG1 tablet Orally Once a dayActiveZincActiveMultivitaminAS DIRECTED*Please review and pick correct strength-formulation from [employer] options. If intended option is not shown, discontinue and re-order from Quick Search*Active Immunizations Vaccine Route Administration Date Status Comme nts z9 Fluzone Quad 0.5mL PFS (0.5mL Admin) 6months & older Unknown 05/08/2019 Refused z9 Fluzone Quad 0.5mL PFS (0.5mL Admin) 6months & heotdKujauon38/06/2020 Refused Problems Problem Type SNOMED Code ICD Code Onset Dates Problem Status W/U Status Risk Notes Problem Information temporarily unavaila ble Mild intermittent asthma without complication (J45.20) ActiveconfirmedProblemInformation temporarily unavailableEndometriosis (N80.9) ActiveconfirmedProblemInformation temporarily unavailableCervical cancer (C53.9) ActiveconfirmedProblemInformation temporarily unavailableIdiopathic intracranial hypertension (G93.2)ActiveconfirmedProblemInformation temporarily unavailable Obesity (BMI 30-39.9) (E66.9)Activeconfirmed Plan Of Treatment No Information Insurance Providers Payer Name Payer Address Payer Phone Subscriber Number Group Number Insured Name Patient Relationship to Insured Coverage Start Date Coverage End Date [facility] [place] MEDICA[place] [address] [place] [address] [id number] Karolina Nicole Self - patient is the insured Medical (General) History Medical History History ICD Code seasonal allergies wwadxhDfkmgyccnnenpB74.9Cervical uhdtjvX82.9Idiopathic intracranial hypertension G93.2Surgical History Surgery Date(Month/Year) Hysterectomy 2011 X 3 Hospitalization History Reason Date(Month/Year) surgeries Child
--- OUTSIDE RECORDS SUMMARY | 2025-03-03 12:49 | XMS_ITS | Encounter Summary ---
Author Organization [facility] Address [facility] [place] [address] Care Team Providers Care All Round Logger Name Role Phone Yoan Morel MD Primary Care Provider + Lloyd Sherwood MD Unavailable Source Comments In the event this information is protected by the Federal Confidentiality of Alcohol and Drug AbusePatient Records regulations: The Federal rules restrict any use of the information to criminally investigate or prosecute any alcohol or drug abuse patient.[facility] Encounter Details DateTypeDepartmentCare Team (Latest Contact Info)Bgrqzrholpv28/20/2025Travel Social History Tobacco UseTypesPacks/DayYears UsedDateSmoking Tobacco: Every DayCigarettes Smokeless Tobacco: Never Comments:1 pack every 2 days Alcohol UseStandard Drinks/WeekCommentsNot Currently0 (1 standard drink = 0.6 oz pure alcohol)[facility] UtilitiesAnswerDate RecordedIn the past 12 months has the electric, gas, oil, or water company threatened to shut off services in your home?No12/16/2024PHQ-2AnswerDate RecordedPHQ-2 zliba694Hunger Vital Sign AnswerDate RecordedWithin the past 12 [...] were you homeless or living in a usp (including now)?No12/16/2024rea Deprivation IndexAnswerDate RecordedNational Score (1-100), lower number is lower risk82 09/29/2023State Score (1-10), lower number is lower nqas708ata from: https://www.neighborhoodatlas.medicine.[facility].edu/. Last address used for ymbg[address]4CommentsNoSex and Gender Information ValueDate RecordedSex Assigned at LaderWbmops85/23/2023 3:16 PM ESTLegal Sex Jqouzx4307/03/2022 3:13 PM ESTGender JopzkliaSwzaur82/23/2023 3:16 PM ESTSexual OrientationNot on filedocumented as of this encounter Functional Status * Are you deaf or do you have serious difficulty hearing?AnswerDate of UtqckntgjpPttxcnRs41/09/2025 10:21 AM Asher Luevano RN * Are you blind or do you have serious difficulty seeing, even when wearing glasses?AnswerDate of OvsdmqiuwwCpsohzUz85/09/2025 10:21 AM Asher Luevano RN * Do you have serious difficulty walking or climbing stairs?AnswerDate of MoxtrilxmoQxhscxOa60/09/2025 10:21 AM Asher Luevano RN * Do you have difficulty dressing or bathing?AnswerDate of AssessmentAuthorNo 12/17/2024 10:21 AM Asher Luevano RN * Because of a physical, mental, or emotional condition, do you have difficulty doing errands alone such as visiting a doctor's office or shopping?AnswerDate of SyjovvnxniLdnicnXu14/09/2025 10:21 AM Asher Luevano RN documented as of this encounter Mental Status * Because of a physical, mental, or emotional condition, do you have serious difficulty concentrating, remembering, or making decisions?AnswerEntry Date EltmzyJz54/09/2025 10:21 AM Asher Luevano RN documented in this encounter Plan of Treatment DateTypeDepartmentCare Team (Latest Contact Info)Bupykdmgcrd39/06/2025 9:30 AM ESTOffice Visit [facility] [address] [place] [address] Nati Noble PA-C [address] [place] [address] Next Available New Ndteewg3603/23/2025 8:40 AM ESTOffice Visit Orthopaedics [address] [place] [address] Linda Malik PA-C [address] [place] [address] Dx: Carpal tunnel syndrome, bilateral [G56.03]04/18/2025 7:30 AM ESTOffice Visit [facility] [address] [address] Lloyd Sherwood MD [address] [place] [address] Please set the patient up for a 2 month virtual visit for history of IIH 04/24/2025 2:00 PM ESTOffice Visit Functional Medicine [address] [place] [address] Janina Lock APRN.CLAY HOISTER [address] [place] [phone] Multiple symptoms, lifestyle ujohpkksun21/17/2025 1:30 PM ESTOffice Visit Allergy [address] [place] [phone] Joyce Murguia MD [address] [place] [address] Follow up06/15/2025 1:45 PM ESTOffice Visit [facility] [address] [place] [address] [place] [address] [place], [place] [phone] Next Available New Patientdocumented as of this encounter Visit Diagnoses Not on filedocumented in this encounter Care Teams Team MemberRelationshipSpecialtyStart DateEnd Date Yoan Morel MD [address] [place] [address] PCP - GeneralFamily Medicine06/06/24 Lloyd Sherwood MD [address] [place], [place] [phone] ReferringOphthalmology12/14/24documented as of this encounter
--- OUTSIDE RECORDS SUMMARY | 2025-03-03 12:50 | XMS_ITS | Encounter Summary ---
Author Organization [facility] Address [address] [place] [address] Care Team Providers Care Vp Human Resources Name Role Phone Yoan Morel MD Primary Care Provider + Lloyd Sherwood MD Unavailable Source Comments In the event this information is protected by the Federal Confidentiality of Alcohol and Drug AbusePatient Records regulations: The Federal rules restrict any use of the information to criminally investigate or prosecute any alcohol or drug abuse patient.[facility] Encounter Details DateTypeDepartmentCare Team (Latest Contact Info)Gnbalaaoqyq55/25/2025 Get Medical Advice Neurology [address] [place] [address] Alejandra Landrum DO [address] [place], [place] [phone] 24 hours Social History Tobacco UseTypesPacks/DayYears UsedDateSmoking Tobacco: Every DayCigarettes Smokeless Tobacco: Never Comments:1 pack every 2 days Alcohol UseStandard Drinks/WeekCommentsNot Currently0 (1 standard drink = 0.6 oz pure alcohol)[facility] UtilitiesAnswerDate RecordedIn the past 12 months has the electric, gas, oil, or water company threatened to shut off services in your home?No12/16/2024PHQ-2AnswerDate RecordedPHQ-2 lyios057Hunger Vital Sign AnswerDate RecordedWithin the past 12 [...] were you homeless or living in a penitentiary (including now)?No12/16/2024rea Deprivation IndexAnswerDate RecordedNational Score (1-100), lower number is lower risk82 09/29/2023State Score (1-10), lower number is lower ngge589ata from: https://www.neighborhoodatlas.medicine.[facility].edu/. Last address used for t[address]4CommentsNoSex and Gender Information ValueDate RecordedSex Assigned at KktpqLheyag11/23/2023 3:16 PM ESTLegal Sex Wkqtlf2907/03/2022 3:13 PM ESTGender OzijzhcuJoazev11/23/2023 3:16 PM ESTSexual OrientationNot on filedocumented as of this encounter Functional Status * Are you deaf or do you have serious difficulty hearing?AnswerDate of PjblzlxbleRrxxrpWs86/09/2025 10:21 AM Asher Luevano RN * Are you blind or do you have serious difficulty seeing, even when wearing glasses?AnswerDate of UwjxmchfljEgeeayQh02/09/2025 10:21 AM Asher Luevano RN * Do you have serious difficulty walking or climbing stairs?AnswerDate of NwurponwpzPwyyskKt26/09/2025 10:21 AM Asher Luevano RN * Do you have difficulty dressing or bathing?AnswerDate of AssessmentAuthorNo 12/17/2024 10:21 AM Asher Luevano RN * Because of a physical, mental, or emotional condition, do you have difficulty doing errands alone such as visiting a doctor's office or shopping?AnswerDate of CjobwdwhdjDkxagcVk37/09/2025 10:21 AM Asher Luevano RN documented as of this encounter Mental Status * Because of a physical, mental, or emotional condition, do you have serious difficulty concentrating, remembering, or making decisions?AnswerEntry Date IzbnuxCi52/09/2025 10:21 AM Asher Leuvano RN documented in this encounter Miscellaneous Notes * Telephone Encounter - Mary King - 02/09/2025 8:16 AM EDT Patient last seen on 02/02/25 documented in this encounter Plan of Treatment DateTypeDepartmentCare Team (Latest Contact Info)Ymuzbohhqza61/06/2025 9:30 AM ESTOffice Visit [facility] [address] [place] [address] Nati Noble PA-C [address] [place] [address] Next Available New Exbztic4503/23/2025 8:40 AM ESTOffice Visit Orthopaedics [address] [place] [address] Linda Malik PA-C [address] [place] [address] Dx: Carpal tunnel syndrome, bilateral [G56.03]04/18/2025 7:30 AM ESTOffice Visit [facility] [address] [address] Lloyd Sherwood MD [address] [place] [address] Please set the patient up for a 2 month virtual visit for history of IIH 04/24/2025 2:00 PM ESTOffice Visit Functional Medicine [address] [address] Janina Lock APRN.EMBEDDED FIRMWARE ENGINEER [address] [address] Multiple symptoms, lifestyle alddzuhgot09/17/2025 1:30 PM ESTOffice Visit Allergy [address] [place] [phone] Joyce Murguia MD [address] [place] [address] Follow up06/15/2025 1:45 PM ESTOffice Visit [facility] [address] [place] [address] [place] [address] [place] [address] Next Available New Patientdocumented as of this encounter Visit Diagnoses Not on filedocumented in this encounter Care Teams Team MemberRelationshipSpecialtyStart DateEnd Date Yoan Morel MD [address] [place] [address] PCP - GeneralFamily Medicine06/06/24 Lloyd Sherwood MD [address] [place] [address] ReferringOphthalmology12/14/24documented as of this encounter
--- OUTSIDE RECORDS SUMMARY | 2025-03-03 12:50 | XMS_ITS | Encounter Summary ---
Author Organization [facility] Address [facility]0 [place] [address] Care Team Providers Care Oil Spreader Operator Name Role Phone Yoan Morel MD Primary Care Provider + Lloyd Sherwood MD Unavailable Source Comments In the event this information is protected by the Federal Confidentiality of Alcohol and Drug AbusePatient Records regulations: The Federal rules restrict any use of the information to criminally investigate or prosecute any alcohol or drug abuse patient.[facility] Encounter Details DateTypeDepartmentCare Team (Latest Contact Info)Bpqidwvklxq18/14/2025 Get Medical Advice Ophthalmology [address] [phone] Lloyd Sherwood MD [address] [place] [address] Wonderful [employer] Social History Tobacco UseTypesPacks/DayYears UsedDateSmoking Tobacco: Every DayCigarettes Smokeless Tobacco: Never Comments:1 pack every 2 days Alcohol UseStandard Drinks/WeekCommentsNot Currently0 (1 standard drink = 0.6 oz pure alcohol)[facility] UtilitiesAnswerDate RecordedIn the past 12 months has the electric, gas, oil, or water company threatened to shut off services in your home?No12/16/2024PHQ-2AnswerDate RecordedPHQ-2 beouc139Hunger Vital Sign AnswerDate RecordedWithin the past 12 [...] 09/29/2023State Score (1-10), lower number is lower jyud630ata from: https://www.neighborhoodatlas.medicine.[facility].edu/. Last address used for jv[address]ovtq[address]4CommentsNoSex and Gender Information ValueDate RecordedSex Assigned at WzsznNpvzcj88/23/2023 3:16 PM ESTLegal Sex Jeznmo5007/03/2022 3:13 PM ESTGender CjwgvvtgRzxmft01/23/2023 3:16 PM ESTSexual OrientationNot on filedocumented as of this encounter Functional Status * Are you deaf or do you have serious difficulty hearing?AnswerDate of ZajkbehxxbFcgcvkAy08/09/2025 10:21 AM Asher Luevano RN * Are you blind or do you have serious difficulty seeing, even when wearing glasses?AnswerDate of XtsjkvccqfVimpdvEu70/09/2025 10:21 AM Asher Luevano RN * Do you have serious difficulty walking or climbing stairs?AnswerDate of EmulypqkhoJninsaPm33/09/2025 10:21 AM Asher Luevano RN * Do you have difficulty dressing or bathing?AnswerDate of AssessmentAuthorNo 12/17/2024 10:21 AM Asher Luevano RN * Because of a physical, mental, or emotional condition, do you have difficulty doing errands alone such as visiting a doctor's office or shopping?AnswerDate of ZhwrrvkvvzEyxtzcRd04/09/2025 10:21 AM Asher Luevano RN documented as of this encounter Mental Status * Because of a physical, mental, or emotional condition, do you have serious difficulty concentrating, remembering, or making decisions?AnswerEntry Date VuvitjSv16/09/2025 10:21 AM Asher Luevano RN documented in this encounter Miscellaneous Notes * Telephone Encounter - Vero Dejesus - 02/21/2025 2:08 PM EDT Yes, I spoke with her about my call to [employer] and they basically told me what they told her. documented in this encounter Plan of Treatment DateTypeDepartmentCare Team (Latest Contact Info)Qiwsskpzlrs23/06/2025 9:30 AM ESTOffice Visit [facility] [address] [place] [address] Nati Noble PA-C [address] [place] [address] Next Available New Qjtwkdu6203/23/2025 8:40 AM ESTOffice Visit Orthopaedics [address] [place], [place] [phone] Linda Malik PA-C [address] [place] [address] Dx: Carpal tunnel syndrome, bilateral [G56.03]04/18/2025 7:30 AM ESTOffice Visit [facility] Ophthalmology [address] [address] Lloyd Sherwood MD [address] [place] [address] Please set the patient up for a 2 month virtual visit for history of IIH 04/24/2025 2:00 PM ESTOffice Visit Functional Medicine [address] [address] Janina Lock APRN.CAR SEALER [address] [address] Multiple symptoms, lifestyle /17/2025 1:30 PM ESTOffice Visit Allergy [address] [place] [phone] [place] [address] [place] [address] Follow up06/15/2025 1:45 PM ESTOffice Visit [facility] [address] [place] [address] [place] [address] [place] [address] Next Available New Patientdocumented as of this encounter Visit Diagnoses Not on filedocumented in this encounter Care Teams Team MemberRelationshipSpecialtyStart DateEnd Date Yoan Morel MD [address] [place] [address] PCP - GeneralFamily Medicine06/06/24 Lloyd Sherwood MD [address] [place] [address] ReferringOphthalmology12/14/24documented as of this encounter
--- OUTSIDE RECORDS SUMMARY | 2025-03-03 12:50 | XMS_ITS | Encounter Summary ---
Author Organization [facility] Address [facility]0 [place] [address] Care Team Providers Care Ground Surveillance Systems Operator Name Role Phone Yoan Morel MD Primary Care Provider +-[phone] Lloyd Sherwood MD Unavailable Source Comments In the event this information is protected by the Federal Confidentiality of Alcohol and Drug AbusePatient Records regulations: The Federal rules restrict any use of the information to criminally investigate or prosecute any alcohol or drug abuse patient.[facility] Encounter Details DateTypeDepartmentCare Team (Latest Contact Info)Smoryzluyew40/18/2025Travel Social History Tobacco UseTypesPacks/DayYears UsedDateSmoking Tobacco: Every DayCigarettes Smokeless Tobacco: Never Comments:1 pack every 2 days Alcohol UseStandard Drinks/WeekCommentsNot Currently0 (1 standard drink = 0.6 oz pure alcohol)[facility] UtilitiesAnswerDate RecordedIn the past 12 months has the electric, gas, oil, or water company threatened to shut off services in your home?No12/16/2024PHQ-2AnswerDate RecordedPHQ-2 hmcdi814Hunger Vital Sign AnswerDate RecordedWithin the past 12 [...] were you homeless or living in a retirement (including now)?No12/16/2024rea Deprivation IndexAnswerDate RecordedNational Score (1-100), lower number is lower risk82 09/29/2023State Score (1-10), lower number is lower zfbe040ata from: https://www.neighborhoodatlas.medicine.[facility].edu/. Last address used for ahumlj[address]4CommentsNoSex and Gender Information ValueDate RecordedSex Assigned at QvuwrYpllsd14/23/2023 3:16 PM ESTLegal Sex Ylsncq2007/03/2022 3:13 PM ESTGender HxcsfwzjRaxhhe81/23/2023 3:16 PM ESTSexual OrientationNot on filedocumented as of this encounter Functional Status * Are you deaf or do you have serious difficulty hearing?AnswerDate of EinnapzpvnEjhmojUr18/09/2025 10:21 AM Asher Luevano RN * Are you blind or do you have serious difficulty seeing, even when wearing glasses?AnswerDate of HshgsxbcojBdtwgzLb68/09/2025 10:21 AM Asher Luevano RN * Do you have serious difficulty walking or climbing stairs?AnswerDate of ZbhmmmoourFvuqzxCc95/09/2025 10:21 AM Asher Luevano RN * Do you have difficulty dressing or bathing?AnswerDate of AssessmentAuthorNo 12/17/2024 10:21 AM Asher Luevano RN * Because of a physical, mental, or emotional condition, do you have difficulty doing errands alone such as visiting a doctor's office or shopping?AnswerDate of IdznplwsleJtbytdDl78/09/2025 10:21 AM Asher Luevano RN documented as of this encounter Mental Status * Because of a physical, mental, or emotional condition, do you have serious difficulty concentrating, remembering, or making decisions?AnswerEntry Date EmtjwyOr56/09/2025 10:21 AM Asher Luevano RN documented in this encounter Plan of Treatment DateTypeDepartmentCare Team (Latest Contact Info)Chxzsdnmxiw76/06/2025 9:30 AM ESTOffice Visit [facility] [address] [place] [address] Nati Noble PA-C [address] [place] [address] Next Available New Pclvjzz0303/23/2025 8:40 AM ESTOffice Visit Orthopaedics [address] [place] [address] Linda Malik PA-C [address] [place] [address] Dx: Carpal tunnel syndrome, bilateral [G56.03]04/18/2025 7:30 AM ESTOffice Visit [facility] Ophthalmology [address] [address] Lloyd Sherwood MD [address] [place] [address] Please set the patient up for a 2 month virtual visit for history of IIH 04/24/2025 2:00 PM ESTOffice Visit Functional Medicine [address] [place] [address] Janina Lock APRN.SLABBING MACHINE OPERATOR [address] [place] [phone] Multiple symptoms, lifestyle rxvjqhfpku08/17/2025 1:30 PM ESTOffice Visit Allergy [address] [place] [phone] Joyce Murguia MD [address] [place] [address] Follow up06/15/2025 1:45 PM ESTOffice Visit [facility] [address] [place] [address] [place] [address] [place], [place] [phone] Next Available New Patientdocumented as of this encounter Visit Diagnoses Not on filedocumented in this encounter Care Teams Team MemberRelationshipSpecialtyStart DateEnd Date Yoan Morel MD [address] [place] [address] PCP - GeneralFamily Medicine06/06/24 Lloyd Sherwood MD [address] [place], [place] [phone] ReferringOphthalmology12/14/24documented as of this encounter
--- OUTSIDE RECORDS SUMMARY | 2025-03-03 12:50 | XMS_ITS | Encounter Summary ---
Author Organization [facility] Address [facility] [place] [address] Care Team Providers Care Gardener Florist Name Role Phone Yoan Morel MD Primary Care Provider + Lloyd Sherwood MD Unavailable Source Comments In the event this information is protected by the Federal Confidentiality of Alcohol and Drug AbusePatient Records regulations: The Federal rules restrict any use of the information to criminally investigate or prosecute any alcohol or drug abuse patient.[facility] Reason for Visit * ReasonCommentsPatient UpdatePatient Question Encounter Details DateTypeDepartmentCare Team (Latest Contact Info)Uvcpiqhlayh72/17/2025Telephone Ophthalmology [address] [phone] Lloyd Sherwood MD [facility] [place] [address] Patient Update; Patient Question Social History Tobacco UseTypesPacks/DayYears UsedDateSmoking Tobacco: Every DayCigarettes Smokeless Tobacco: Never Comments:1 pack every 2 days Alcohol UseStandard Drinks/WeekCommentsNot Currently0 (1 standard drink = 0.6 oz pure alcohol)[facility] UtilitiesAnswerDate RecordedIn the past 12 months has the electric, gas, oil, or water company threatened to shut off services in your home?No12/16/2024PHQ-2AnswerDate RecordedPHQ-2 wzxkx150Hunger Vital Sign AnswerDate RecordedWithin the past 12 [...] were you homeless or living in a alf (including now)?No12/16/2024rea Deprivation IndexAnswerDate RecordedNational Score (1-100), lower number is lower risk82 09/29/2023State Score (1-10), lower number is lower fhjo422ata from: https://www.neighborhoodatlas.medicine.[facility].edu/. Last address used for svawlmqelzi[address]09/29/2023CommentsNoSex and Gender Information ValueDate RecordedSex Assigned at WfozhQactan61/23/2023 3:16 PM ESTLegal Sex Jrwdum2607/03/2022 3:13 PM ESTGender PesdaixhPhtroz48/23/2023 3:16 PM ESTSexual OrientationNot on filedocumented as of this encounter Functional Status * Are you deaf or do you have serious difficulty hearing?AnswerDate of KnuszinoxgPlmavqDu40/09/2025 10:21 AM Asher Luevano RN * Are you blind or do you have serious difficulty seeing, even when wearing glasses?AnswerDate of YwsejokvrmCoqnqrQu73/09/2025 10:21 AM Asher Luevano RN * Do you have serious difficulty walking or climbing stairs?AnswerDate of LhpclvrjvjQywcrdCn09/09/2025 10:21 AM Asher Luevano RN * Do you have difficulty dressing or bathing?AnswerDate of AssessmentAuthorNo 12/17/2024 10:21 AM Asher Luevano RN * Because of a physical, mental, or emotional condition, do you have difficulty doing errands alone such as visiting a doctor's office or shopping?AnswerDate of LrpxjloblwVgmjsjXx47/09/2025 10:21 AM Asher Luevano RN documented as of this encounter Mental Status * Because of a physical, mental, or emotional condition, do you have serious difficulty concentrating, remembering, or making decisions?AnswerEntry Date YidcjgLo61/09/2025 10:21 AM Asher Luevano RN documented in this encounter Miscellaneous Notes * Telephone Encounter - Chen Cerrato - 02/27/2025 8:40 AM EDT DC Will message patient. * Telephone Encounter - Chen Cerrato - 02/24/2025 4:43 PM EDT Karolina Nicole [phone] (home) Pt just saw doctor Kimbelry. She did not trust him and anything he said during her visit. She is currently having blurry vision In both eyes. Also hurts when she turns her eye. Her pressure is currently 22-23. 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 She saw a doctor where she works right after seeing him who she trusted over him. And her exam was different. She said she is afraid she will go blind by Thursday and is scared. Wants to know what to do? I gave her the director money number for the weekend. LV 02/13/25 with you FV 04/18/25 Assessment & Plan SteffenpeytonKuldip donald, OD filed at 02/24/2025 2:54 PM Status: Signed ASSESSMENT/PLAN: 1. History of papilledema - ICD9: [...] cm water on outside lumbar puncture 01/26/25. Was told to stop Diamox at that time. Has not been taking Diamox since. - today visual acuity right eye is mildly reduced. Visual acuity is stable left eye. - no change in fundus appearance or on OCT retinal nerve fiber layer both eyes. - patient has appt with neurosurgery Thursday. Suggest follow up with Dr. Sherwood as there are no acutefindings on exam today. Kuldip Harris, OD I have confirmed and [...] Plan of Treatment DateTypeDepartmentCare Team (Latest Contact Info)Gbcsrjadqjy81/06/2025 9:30 AM ESTOffice Visit [facility] [address] [place] [address] Nati Noble PA-C [address] [place] [address] Next Available New Bnjmsbf7203/23/2025 8:40 AM ESTOffice Visit Orthopaedics [address] [facility] [place] [address] Linda Malik PA-C [address] [place] [address] Dx: Carpal tunnel syndrome, bilateral [G56.03]04/18/2025 7:30 AM ESTOffice Visit [facility] Ophthalmology [address] [address] Lloyd Sherwood MD [address] [place] [address] Please set the patient up for a 2 month virtual visit for history of IIH 04/24/2025 2:00 PM ESTOffice Visit Functional Medicine [address] [address] Janina Lock APRN.CHANGE ATTENDANT [address] [address] Multiple symptoms, lifestyle bhnrkhlfag12/17/2025 1:30 PM ESTOffice Visit Allergy [facility] [place] [phone] Joyce Murguia MD [address] [place] [address] Follow up06/15/2025 1:45 PM ESTOffice Visit [facility] [address] [place] [address] [place] [address] [place] [address] Next Available New Patientdocumented as of this encounter Visit Diagnoses Not on filedocumented in this encounter Care Teams Team MemberRelationshipSpecialtyStart DateEnd Date Yoan Morel MD [address] [place] [address] PCP - GeneralFamily Medicine06/06/24 Lloyd Sherwood MD [address] [place] [address] ReferringOphthalmology12/14/24documented as of this encounter
--- OUTSIDE RECORDS SUMMARY | 2025-03-03 12:50 | XMS_ITS | Encounter Summary ---
Author Organization [facility] Address [facility]0 [place] [address] Care Team Providers Care Combustion Engineer Name Role Phone Yoan Morel MD Primary Care Provider + Lloyd Sherwood MD Unavailable Source Comments In the event this information is protected by the Federal Confidentiality of Alcohol and Drug AbusePatient Records regulations: The Federal rules restrict any use of the information to criminally investigate or prosecute any alcohol or drug abuse patient.[facility] Reason for Visit * ReasonCommentsSchedule Injection Encounter Details DateTypeDepartmentCare Team (Latest Contact Info)Ozemkjbxjyq60/29/2025Telephone Ambulatory Surgery [address] [place] [address] [place] [address] [address] PEREZ [address] [place] [address] Schedule Injection Social History Tobacco UseTypesPacks/DayYears UsedDateSmoking Tobacco: Every DayCigarettes Smokeless Tobacco: Never Comments:1 pack every 2 days Alcohol UseStandard Drinks/WeekCommentsNot Currently0 (1 standard drink = 0.6 oz pure alcohol)[facility] UtilitiesAnswerDate RecordedIn the past 12 months has the electric, gas, oil, or water company threatened to shut off services in your home?No12/16/2024PHQ-2AnswerDate RecordedPHQ-2 nddqj057Hunger Vital Sign AnswerDate RecordedWithin the past 12 [...] were you homeless or living in a halfway (including now)?No12/16/2024rea Deprivation IndexAnswerDate RecordedNational Score (1-100), lower number is lower risk82 09/29/2023State Score (1-10), lower number is lower zhnf901ata from: https://www.neighborhoodatlas.medicine.[facility].edu/. Last address used for lliolqhxzjz[address]4CommentsNoSex and Gender Information ValueDate RecordedSex Assigned at EgozzOfbnoa95/23/2023 3:16 PM ESTLegal Sex Tjgnvh9107/03/2022 3:13 PM ESTGender BvwpspqaBgnuws26/23/2023 3:16 PM ESTSexual OrientationNot on filedocumented as of this encounter Functional Status * Are you deaf or do you have serious difficulty hearing?AnswerDate of NmnbjqwusfKbvrgoPn70/09/2025 10:21 AM Asher Luevano RN * Are you blind or do you have serious difficulty seeing, even when wearing glasses?AnswerDate of SrgdciwvwmRjomdsPm56/09/2025 10:21 AM Asher Luevano RN * Do you have serious difficulty walking or climbing stairs?AnswerDate of WqvffjkofsQspcyfJy95/09/2025 10:21 AM Asher Luevano RN * Do you have difficulty dressing or bathing?AnswerDate of AssessmentAuthorNo 12/17/2024 10:21 AM Asher Luevano RN * Because of a physical, mental, or emotional condition, do you have difficulty doing errands alone such as visiting a doctor's office or shopping?AnswerDate of VsxdmkxdkoUnumkhEa62/09/2025 10:21 AM Asher Luevano RN documented as of this encounter Mental Status * Because of a physical, mental, or emotional condition, do you have serious difficulty concentrating, remembering, or making decisions?AnswerEntry Date YhvzjvVb48/09/2025 10:21 AM Asher Luevano RN documented in this encounter Miscellaneous Notes * Telephone Encounter - Debbie Jimenez - 02/28/2025 8:33 AM EDT Spoke to patient. Case message sent to surgery pool to cancel 03/01 and 03/[address] Cartagena. Patient currently admitted. 03/15 injection was denied because [employer] sent auth request prior to first blockbeing done. * Telephone Encounter - Debbie Jimenez - 02/06/2025 1:59 PM EDT Right Diagnostic L4-5 and L5-S1 facet MBNB X 2, 2 weeks apart HERNAN MCDONALD [id number] OSIEL 03/01 AND 03/15 Patient request sedation. -THINNERS -DM Patient was made aware that the ASC will call the day prior to scheduled procedure between the hours of 12 and 4 pm to advise patient of arrival time the day of procedure. Patient was advised that they will require a taxi driver supervisor on the day of their procedure, and procedure will be cancelled if they arrive without a responsible adult to transport them home from the procedure. Patient advised that all medication management instructions prior to procedure will need addressed by clinical staff. Patient expresses understanding with no further questions or concerns at this time. * Telephone Encounter - Debbie Jimenez - 02/06/2025 9:24 AM EDT Right Diagnostic L4-5 and L5-S1 facet MBNB X 2, 2 weeks apart HERNAN MCDONALD [id number] OSIEL OROURKE DM First attempt to schedule injection. Left detailed voicemail asking patient to return call to surgery coordinator at [phone]. documented in this encounter Plan of Treatment DateTypeDepartmentCare Team (Latest Contact Info)Reizhiyjrmo23/06/2025 9:30 AM ESTOffice Visit [facility] [address] [place] [address] Nati Noble PA-C [address] [place] [address] Next Available New Dlcqktd6003/23/2025 8:40 AM ESTOffice Visit Orthopaedics [address] [place] [address] Linda Malik PA-C [address] [place] [address] Dx: Carpal tunnel syndrome, bilateral [G56.03]04/18/2025 7:30 AM ESTOffice Visit [facility] Ophthalmology [address] [address] Lloyd Sherwood MD [address] [place] [address] Please set the patient up for a 2 month virtual visit for history of IIH 04/24/2025 2:00 PM ESTOffice Visit Functional Medicine [address] [place] [address] Janina Lock APRN.TMD TEACHER ASSISTANT [address] [place] [address] Multiple symptoms, lifestyle fyuymgmyza96/17/2025 1:30 PM ESTOffice Visit Allergy 5[address] [place] [phone] Joyce Murguia MD [address] [place], [place] [phone] Follow up06/15/2025 1:45 PM ESTOffice Visit [facility] [address] [place] [address] [place] [address] [place] [address] Next Available New Patientdocumented as of this encounter Visit Diagnoses Diagnosis Lumbosacral spondylosis without myelopathy- Primary Other localized visual field defect, bilateral- Primary documented in this encounter Care Teams Team MemberRelationshipSpecialtyStart DateEnd Yoan Morel MD [address] [place] [address] PCP - GeneralFamily Medicine06/06/24 Lloyd Sherwood MD [address] [place] [address] ReferringOphthalmology12/14/24documented as of this encounter
--- OUTSIDE RECORDS SUMMARY | 2025-03-03 12:50 | XMS_ITS | Encounter Summary ---
Author Organization [facility] Address [facility] [place] [address] Care Team Providers Care [employer] Box [employer] Supervisor Name Role Phone Yoan Morel MD Primary Care Provider + Lloyd Sherwood MD Unavailable Source Comments In the event this information is protected by the Federal Confidentiality of Alcohol and Drug AbusePatient Records regulations: The Federal rules restrict any use of the information to criminally investigate or prosecute any alcohol or drug abuse patient.[facility] Encounter Details DateTypeDepartmentCare Team (Latest Contact Info)Dclntyhuvxd49/10/2025 Patient Msg Ophthalmology [address] [id number] Provider, [facility] Prudential forms Social History Tobacco UseTypesPacks/DayYears UsedDateSmoking Tobacco: Every DayCigarettes Smokeless Tobacco: Never Comments:1 pack every 2 days Alcohol UseStandard Drinks/WeekCommentsNot Currently0 (1 standard drink = 0.6 oz pure alcohol)[facility] UtilitiesAnswerDate RecordedIn the past 12 months has the electric, gas, oil, or water company threatened to shut off services in your home?No12/16/2024PHQ-2AnswerDate RecordedPHQ-2 bykif223Hunger Vital Sign AnswerDate RecordedWithin the past 12 [...] were you homeless or living in a longterm (including now)?No12/16/2024rea Deprivation IndexAnswerDate RecordedNational Score (1-100), lower number is lower risk82 09/29/2023State Score (1-10), lower number is lower [id number] from: https://www.neighborhoodatlas.medicine.[facility].edu/. Last address used for qudrfliy[address]4CommentsNoSex and Gender Information ValueDate RecordedSex Assigned at MrybaBiovoe33/23/2023 3:16 PM ESTLegal Sex Xeqohh7007/03/2022 3:13 PM ESTGender PpgwtbauTblnxq33/23/2023 3:16 PM ESTSexual OrientationNot on filedocumented as of this encounter Functional Status * Are you deaf or do you have serious difficulty hearing?AnswerDate of MlyzqbsqfrFgxuarZi03/09/2025 10:21 AM Asher Luevano RN * Are you blind or do you have serious difficulty seeing, even when wearing glasses?AnswerDate of GikyknurlzKgbxqzLr69/09/2025 10:21 AM Asher Luevano RN * Do you have serious difficulty walking or climbing stairs?AnswerDate of VaxsyhspjwWkzedvOe44/09/2025 10:21 AM Asher Luevano RN * Do you have difficulty dressing or bathing?AnswerDate of AssessmentAuthorNo 12/17/2024 10:21 AM Asher Luevano RN * Because of a physical, mental, or emotional condition, do you have difficulty doing errands alone such as visiting a doctor's office or shopping?AnswerDate of YtmrsgaboxJfxwgaVo70/09/2025 10:21 AM Asher Luevano RN documented as of this encounter Mental Status * Because of a physical, mental, or emotional condition, do you have serious difficulty concentrating, remembering, or making decisions?AnswerEntry Date RiqfgdWz60/09/2025 10:21 AM Asher Luevano RN documented in this encounter Plan of Treatment DateTypeDepartmentCare Team (Latest Contact Info)Afvmfrmkzph96/06/2025 9:30 AM ESTOffice Visit [facility] [address] [place] [address] Nati Noble PA-C [address] [place] [address] Next Available New Jgjxwle4703/23/2025 8:40 AM ESTOffice Visit Orthopaedics [address] [place] [address] Linda Malik PA-C [address] [place] [address] Dx: Carpal tunnel syndrome, bilateral [G56.03]04/18/2025 7:30 AM ESTOffice Visit [facility] Ophthalmology [address] [address] Lloyd Sherwood MD [address] [place] [address] Please set the patient up for a 2 month virtual visit for history of IIH 04/24/2025 2:00 PM ESTOffice Visit Functional Medicine [address] [address] Janina Lock APRN.[employer]ATOR [address] [place] [address] [phone] Multiple symptoms, lifestyle /17/2025 1:30 PM ESTOffice Visit [facility]ergy [facility] [place] [id number] Joyce Murguia MD [address] [place], [place] [id number] Follow up06/15/2025 1:45 PM ESTOffice Visit [facility] [address] [place] [address] [place] [address] [place] [address] Next Available New Patientdocumented as of this encounter Visit Diagnoses Not on filedocumented in this encounter Care Teams Team MemberRelationshipSpecialtyStart DateEnd Yoan Morel MD [address] [place] [address] PCP - GeneralFamily Medicine06/06/24 Lloyd Sherwood MD [address] [place] [address] ReferringOphthalmology12/14/24documented as of this encounter
--- OUTSIDE RECORDS SUMMARY | 2025-03-03 12:50 | XMS_ITS | Clinical Summary ---
Author Organization [facility] Address [address] [place] [address] Care Team Providers Care Branch Sales Manager Name Role Phone Yoan Morel MD Primary Care Provider [phone] Tamara Sherwood MD Unavailable Allergies Active AllergyReactionsCriticalityNoted QileNazvleflWoxliqhgJxjr85/01/2012 Adhesive Tape (Rosins)Hives,TombfnsLho32/01/4987BxippSayr22/22/2017Levofloxacin Nznhorgw28/26/2024 Swelling tongue KvdtniryJspsoihxvi94/02/2025 Says tongue swells up, vomits, chest pain NickelRash,Fyerksb8608/30/20167508XsuopcesgNdyx58/07/2021Oxycodone-AcetaminophenRash 03/11/2012SilkOther: See [place]ooisluk47/22/2017 Silk tape UtuydlhrcwnzOivr79/21/2024Sulfamethoxazole-FaydecxhxbjvIreytsnk71/16/2024 Medications MedicationSigDispense QuantityRefillsLast FilledStart DateEnd DateStatus Cetirizine 10 mg cap Active mv,calcium,min/iron/folic/vitK (MULTI FOR HER ORAL) Active hydrOXYzine pamoate (VISTARIL) 50 mg capsule Take 50 mg by mouth daily at bedtime.Active dextroamphetamine-amphetamine (ADDERALL) 20 mg tablet Take 1 tablet by mouth two times a day./ctive SINGULAIR 10 mg tablet Take 10 mg by mouth daily at bedtime.03/21/2024ctive magnesium oxide (MAG-OX) 400 mg (241.3 mg magnesium) tablet Take 1 tablet by mouth once daily.12/27/2024tive divalproex ER (DEPAKOTE ER) 500 mg 24 hr tablet Take 1 tablet by mouth two times a day. 180 tablet ctive amoxicillin-clavulanate potassium (AUGMENTIN) 875-125 mg per tablet Take 1 tablet by mouth two times a day.02/13/2022ctive acetaZOLAMIDE (DIAMOX) 250 mg tablet Take 250 mg by mouth two times a day.09/30/2024tive mometasone-formoterol (DULERA) 200-5 mcg/actuation inhaler Inhale 2 puffs as instructed two times a day. 39 g tive Fluticasone Furoate (FLONASE SENSIMIST) 27.5 mcg/actuation nasal spray Use 2 sprays in each nostril once daily.03/03/2025tive albuterol HFA (PROVENTIL HFA, VENTOLIN HFA) 90 mcg/actuation inhaler Inhale 2 puffs as instructed every 4 hours as needed for wheezing/shortness of breath. 1 each tive albuterol (PROVENTIL) 2.5 mg /3 mL (0.083 %) nebulizer solution Use 3 mL via nebulizer every 4 hours as needed for wheezing/shortness of breath. OVER 5-15 MINUTES.FOR WHEEZING AND SHORTNESS OF BREATH. 90 mL tive Inhalational Spacing Device 1 device as directed. 1 each tive acetaZOLAMIDE SR (DIAMOX SEQUELS) 500 mg capsule Indications:IIH (idiopathic intracranial hypertension)Take 1 capsule by mouth once daily. 30 capsule Discontinued HYDROcodone-acetaminophen (NORCO) 5-325 mg per tablet Indications:Lumbosacral spondylosis without myelopathyTake 1 tablet by mouth two times a day as needed for pain (moderate to severe back pain) for up to 7 days. 14 tablet ExpiredHospital, Clinic, or Other Facility Administered MedicationOrdered DoseRouteFrequencyStart DateEnd DateStatus tropicamide 1 % 1 drop (MYDRIACYL) Indications:Other localized visual field defect, bilateral1 dropOUAS DIRECTED /5Active PHENYLephrine 2.5 % 1 drop (AK-DILATE, ANTHONY-SYNEPHRINE) Indications:Other localized visual field defect, bilateral1 dropOUAS DIRECTED /5Active fluorescein-benoxinate 0.3-0.4 % 1 drop (FLURESS) Indications:Other localized visual field defect, bilateral1 dropOUAS DIRECTED /5Active proparacaine 0.5 % 1 drop (ALCAINE) Indications:Other localized visual field defect, bilateral1 dropOUAS DIRECTED /5Active onabotulinum toxin type A 155 Units injection (BOTOX) 155 UoafxMHBRNA63Ended tropicamide 1 % 1 drop (MYDRIACYL) 1 dropOUAS UXIZXJBN99/Ended PHENYLephrine 2.5 % 1 drop (AK-DILATE, ANTHONY-SYNEPHRINE) 1 dropOUAS UDQVTZOC64/Ended fluorescein-benoxinate 0.3-0.4 % 1 drop (FLURESS) 1 dropOUAS NIESDQEX74/Ended proparacaine 0.5 % 1 drop (ALCAINE) 1 dropOUAS WOSOVEGZ50/Ended Active Problems ProblemNoted DateDiagnosed DateObesity, Class I, BMI 30-34.91djustment disorder with ptsskdq1502/28/2025GAD (generalized anxiety disorder)02/28/2025 History of posttraumatic stress disorder (PTSD)02/28/2025lurred vision, fzduntxzr98/21/5870Hmmbzeatygq26/21/4013Szcqaxk52/21/2025Low serum IgG for age 1002/28/20250094Eavyfhvh13/20/2025nterior thigh yqzbwfau16/25/2025Paresthesia of bilateral legs02/02/2025Lumbosacral spondylosis without ysehueqnau20/25/2025 Wkptrm4412/27/2024 Assessment & Plan (12/27/2024 1:50 PM EDT): Assessment: reports mild asthma States uses inhaler with increased activity or weather changes Denies recent URI or wheezing ADHD (attention deficit hyperactivity disorder)12/27/2024 Assessment & Plan (12/27/2024 1:50 PM EDT): Assessment: On Adderall- advised to hold DOS Emtynpcpyvai26/19/2025 Assessment & Plan (12/27/2024 1:51 PM EDT): Assessment: + chronic pain Has seen pain management in past PTSD (post-traumatic stress disorder)12/27/2024 Assessment & Plan (12/27/2024 1:49 PM EDT): Assessment: Reports trauma in past States has agitated with twilight anesthesia and becomes agitated post op Ykhufulrtoaj39/19/2025 Assessment & Plan (12/27/2024 1:52 PM EDT): Assessment: reports intermittent palpations Denies chest pain Had cardiac work up 2022- negative stress test History of cervical vdswja4712/27/2024 Assessment & Plan (12/27/2024 1:52 PM EDT): Assessment: s/p hysterectomy 2013 IIH (idiopathic intracranial hypertension)12/22/2024 Assessment & Plan (12/27/2024 1:47 PM EDT): Assessment: See HPI Nicotine use disorder, F17. Assessment & Plan (12/27/2024 1:47 PM EDT): Assessment: current smoker, 0.5 pack year daily Smoked on and off for 20 years Migraine uhyuvfvqo02/08/2025enign intracranial okpfvawpjxcr40/08/2025Migraine without aura, not intractable, without status urbohlezmio25/30/2025nxiety 07/02/2023 Assessment & Plan (12/27/2024 1:49 PM EDT): Assessment: Managed on medication by PCP Encounters DateTypeDepartmentCare GwgbHluxvmppate48/24/2025 8:30 AM EDTDistance Health Allergy [address] [place] [phone] Joyce Murguia MD Recurrent acute non-suppurative otitis media of both ears (Primary Dx); Recurrent infections; Chronic rhinitis; Moderate persistent asthma, uncomplicated (HCC)03/03/2025Telephone Allergy [address] [place] [phone] Joslyn Ag RN 03/02/2025 Patient Msg Neurology [address] [place] [address] Katarina Alves MD Hospital follow-up02/27/2025 6:34 PM EDT - 03/01/2025 4:12 PM EDTHospital Encounter HOSP MAIN G071 [address] [place] [address] Brian Lopez DO Willis, Mary A, MD BLURRY VISION Discharge Disposition: Home02/27/2025 12:20 PM EDT - 02/27/2025 6:33 PM EDT Hospital Encounter Radiology [address] [phone] Polyarthralgia [M25.50] Discharge Disposition: Home02/27/2025 11:00 AM EDTOffice Visit [facility] [address] [phone] Amelie Boykin MD Polyarthralgia (Primary Dx); Hand swelling; Fibromyalgia; Intracranial hypertension; Allodynia; Recurrent yzocmeocsn03/20/2025 7:30 AM EDTOffice Visit OPHT Ophthalmology [address] [address] Tamara Sherwood MD Diagnostics, Eye Tech And IIH (idiopathic intracranial hypertension) (Primary Dx); Other localized visual field defect, lzrjuhdel83/20/5563Mknype15/20/2025 Telephone Neurology [address] [place] [address] Alejandra Landrum DO Patient Cutzbsga88/18/2025 Get Medical Advice Ophthalmology [address] [place] [address] Kuldip Harris, OD Just for the record!02/25/20253298Hbmlwf69/17/2025 1:30 PM EDTOffice Visit OPHT Ophthalmology [address] [place] [address] Kuldip Harris, OD Diagnostics, Eye Tech And History of papilledema (Primary Dx); IIH (idiopathic intracranial hypertension)02/24/2025Telephone Ophthalmology [address] [address] Tamara Sherwood MD Patient Update; Patient Rqrpireu01/17/1151Lesivo10/14/2025 Get Medical Advice Ophthalmology [address] [address] Tamara Sherwood MD Wonderful Janudqqrgv09/13/2025Telephone Ophthalmology [address] [address] Tamara Sehrwood MD 02/17/2025 Patient Msg Ophthalmology [address] [address] Provider, Ccf Prudential Form and fax xpkgasmydfuy46/10/2025 Patient Msg Ophthalmology [address] [address] Provider, Ccf Prudential forms02/13/2025 7:30 AM EDTOffice Visit OPHT Ophthalmology [address] [address] Taamra Sherwood MD History of papilledema (Primary Dx); Pulsatile kvmnobjt49/29/2025 4:30 PM [facility] [address] [place] [address] Lisandro Gonsalez MD Carpal tunnel syndrome, bilateral (Primary Dx); Nluhizvd20/29/2025Telephone Neurology [address] [place] [address] Alejandra Landrum DO Forms (Questionnaire from [employer] )02/06/2025Telephone Ambulatory Surgery [address] [place] [address] Osiel Cartagena DO Schedule Cvubypvje17/25/2025 3:30 PM EDTOffice Visit Neurology [address] [place] [address] Alejandra Landrum DO Intractable chronic migraine without aura and without status migrainosus (Primary Dx); Chronic daily headache; Cervicalgia; Cerebellar tonsillar ectopia (HCC); IIH (idiopathic intracranial hypertension)02/02/2025 12:00 PM [facility] [address] [facility] [place] [address] Osiel Cartagena DO Lumbosacral spondylosis without myelopathy (Primary Dx); Paresthesia of bilateral legs; Anterior thigh yvuolzlj08/25/2025 Get Medical Advice Neurology [address] [place] [address] Alejandra Landrum DO 24 hours02/01/2025Telephone Endovascular Center [address] [place] [address] Pineda Thomas MD Patient Question; Electronic Dhqyrtwdvcryg73/13/2025 Patient Msg Neurology [address] [place] [phone] Lisandro Gonsalez MD EMG follow up01/20/2025 9:25 AM EDTProcedure Neurology EMG [facility] [address] [place] [address] EMG01/20/2025 Get Medical Advice Neurology [address] [place] [phone] Lisandro Gonsalez MD Emg01/16/20258909Cikcve15/08/2025 Get Medical Advice Pain Management [address] [place] [address] Cassandra Tinsley APRN.FORM BLOCK MAKER Lumbar spine mri01/13/2025 Patient Msg Neurology [address] [place] [address] Alejandra Landrum DO fmoazyi0501/13/2025Patient Update Neurology [address] [place] [phone] Alejandra Landrum DO 01/10/2025 8:30 AM EDTOffice Visit OPHT Ophthalmology [address] [address] Tamara Sherwood MD IIH (idiopathic intracranial hypertension) (Primary Dx); Other localized visual field defect, bilateral; Pulsatile /02/2025Telephone [facility] [address] [place] [address] Nati Noble PA-C 01/10/2025 Patient Msg Ophthalmology [address] [address] Provider, Ccf Upcoming virtual vist with Dr. Sherwood01/06/2025[facility] Neurology [address] [place], [place] [phone] Alejandra Landrum DO Referral Request; Botox Shxtnqddn58/28/2025 3:30 PM EDTOffice Visit Neurology [address] [place] [phone] Alejandra Landrum DO Intractable chronic migraine without aura and without status migrainosus (Primary Dx); Idiopathic intracranial ghlaxyyogjuf01/28/2025 Get Medical Advice Neurology [address] [place] [phone] Alejandra Landrum DO Missed questions and btbplygw55/26/2025 3:00 PM EDT[facility] [address] [place] [address] Pineda Thomas MD Idiopathic intracranial cynhvwboosei79/26/2025 Get Medical Advice [facility] [address] [place], [place] [phone] Pineda Thomas MD Fhjiaa2812/31/2024Telephone [facility]ovascular Center [address] [place], [place] [phone] Flores Swain MD 12/31/2024 Patient Msg Neurology [address] [place] [address] Alejandra Landrum DO Appointment Zxjgvqz4912/30/2024 2:17 PM EDTAnesthesia Event Admitting [address] [place] [address] Ameya Layton MD Nair, Harsha K, MD 12/30/2024 1:22 PM EDT - 12/30/2024 4:23 PM EDTSurgery Admitting [address] [place] [address] Pineda Thomas MD NON-SELECTIVE CATH PLACEMENT THORACIC AORTA W/ ANGIOGRAPHY OF THE EXTRACRANIAL CAROTID VERTEBRAL AND/OR INTRACRANIAL VESSELS BILATERAL W/ ANGIOGRAPHY OF THE CERVICOCEREBRAL ARCH12/30/2024 11:40 AM EDT - 12/30/2024 7:29 PM EDTHospital Encounter Admitting [address] [place] [address] Pineda Thomas MD IIH (idiopathic intracranial hypertension) [G93.2], Migraine headaches [G43.909] Discharge Disposition: Home12/30/20242316Ydzpxo64/19/2025 1:20 PM EDTPAT Pre Anesthesia [address] [place] [address] Nicotine use disorder, F17.2 (Primary Dx); IIH (idiopathic intracranial hypertension); Migraine headaches; PTSD (post-traumatic stress disorder); Anxiety; Attention deficit hyperactivity disorder (ADHD), unspecified ADHD type; Mild intermittent asthma without complication (HCC); Fibromyalgia; Palpitations; History of cervical ssshup1212/27/2024 Patient Msg Pre Anesthesia [address] [place] [address] Ellie North APRN.FORM BLOCK MAKER PATIENT PREOPERATIVE AHVIFUILOXLQ83/18/2025 Get Medical Advice Neurology [address] [place] [address] Alejandra Landrum DO Ycewnk8812/23/2024 Get Medical Advice [facility] [address] [place] [address] Pineda Thomas MD Vrpblp2612/23/2024 Patient Msg [facility] [address] [place] [address] Provider, Ccf Cerebral Angiogram Instructions for December 30 9:00 AM EDT - 12/22/2024 11:40 AM EDTSurgery INTERVENTIONAL RADIOLOGY [address] [place] [address] Pineda Thomas MD Not Performed SELECTIVE CATH PLACEMENT COMMON CAROTID OR INNOMINATE ARTERY BILATERAL W/ ANGIOGRAPHY OF THE IPSILATERAL EXTRACRANIAL CAROTID CIRCULATION AND ALL ASSOCIATED W/ ANGIOGRAPHY OF THE CERVICOCEREBRAL ARCH12/22/2024 7:58 AM EDT - 12/22/2024 12:19 PM EDTHospital Encounter INTERVENTIONAL RADIOLOGY [address] [place] [address] Pineda Thomas MD II (idiopathic intracranial hypertension) [G93.2] Discharge Disposition: Home12/22/2024Patient Update [facility] [address] [place] [address] Pineda Thomas MD Zpcodhogs46/14/2025 Get Medical Advice [facility] [address] [place] [address] Pineda Thomas MD Qywlycfkih82/14/6000Ohcfch82/13/3696Jvclac07/13/2025Telephone [facility] [address] [place] [address] Pineda Thomas MD Ear Nose Throat Surgeon - Other (Procedure Scheduling)12/21/2024Orders Only [facility] [address] [place] [address] Pineda Thomas MD II (idiopathic intracranial hypertension) (Primary Dx)12/21/2024Orders Only [facility] [address] [place] [address] Asher Hernandez RN 12/21/2024 Get Medical Advice [facility] [address] [place] [address] Pineda Thomas MD Procedure Tomorrow/next week12/20/2024 2:20 PM [facility] [address] [place] [address] Pineda Thomas MD II (idiopathic intracranial hypertension) (Primary Dx)12/20/2024Results Follow-Up Ophthalmology [address] [address] Tamara Sherwood MD 12/20/2024 Get Medical Advice [facility] [address] [place] [address] Pineda Thomas MD Vsvfnzuc09/08/2025Nurse Triage [facility] Provider Adult [address] [place] [address] Aniceto Woodson MD Erroneous encounter-rgkkldqac02/07/2025 6:51 PM EDT - 12/17/2024 10:35 AM EDT Hospital Encounter [facility] [address] [place] [address] Anita Barclay, Russ Kirby MD Chau, Nathalie, DO IIH (idiopathic intracranial hypertension) [G93.2] Discharge Disposition: Home12/15/20240777Dtkwan75/06/2025Telephone C[facility]brovascular Center [address] [place] [phone] Provider, Neurology Asospgkn84/06/2025Telephone Endovascular Center [address] [place] [address] Provider, Neurology Future Appointment (New Patient MAKENZIE Thomas)12/14/2024Telephone Neurology [address] [place] [address] Lisandro Gonsalez MD Eeeelp9412/13/2024 8:00 AM EDTOffice Visit OPHT Ophthalmology [address] [place] [phone] Tamara Sherwood MD IIH (idiopathic intracranial hypertension) (Primary Dx); Pulsatile tinnitus; Chronic migraine without aura, with intractable migraine, so stated, with status migrainosus; Other dysphagia; Weakness of both lower iaasmrdpusv18/05/2025 Patient Msg Neurology [address] [place] [phone] Provider, Ccf from Dr Gonsalez efifjw8112/12/2024Results Follow-Up Neurology [address] [place] [address] Lisandro Gonsalez MD 12/10/2024 10:05 AM EDTProcedure Neurology [address] [place] [address] EMG12/03/20240108Kxyxak32/25/2025 Patient Msg Rheumatology [address] [address] Provider, Ccf Message from Dr. Cuadra12/02/2024 Get Medical Advice Neurology [address] [place] [phone] Faith Garcia PA-C Wczcmzjx93/25/2025Results Follow-Up Neurology [address] [place] [address] Faith Garcia PA-C 12/02/2024 Get Medical Advice Rheumatology [address] [place] [address] Alem Cuadra MD Any idea what this is?12/02/2024 Get Medical Advice Neurology [address] [place] [phone] Lisandro Gonsalez MD EMG12/02/20242779Vamfrw86/24/2025 Patient Msg Neurology [address] [place] [address] Provider, Ccf Are the New Migraine Therapies Right for Me?12/01/2024 Patient Msg Neurology [address] [place] [address] Provider, Ccf Are the New Migraine Therapies Right for Me?from Last 3 Months Family History Medical HistoryRelationCommentsHeartMaternal GrandmotherCancerMotherCataract MotherBlindnessSisterCataractSisterHypertensionSisterDetached RetinaNo Family HistoryDifficulty with anesthesiaNo Family HistoryGlaucomaNo Family History Macular DegenNo Family HistoryRelationStatusCommentsMaternal GrandmotherMother Sister Social History Tobacco UseTypesPacks/DayYears UsedDateSmoking Tobacco: Every DayCigarettes Smokeless Tobacco: Never Tobacco Cessation:Ready to Q uit: Not Asked; Counseling Given: Not Answered Comments:1 pack every 2 days Alcohol UseStandard Drinks/WeekCommentsNot Currently0 (1 standard drink = 0.6 oz pure alcohol)[facility] UtilitiesAnswerDate RecordedIn the past 12 months has the [employer], gas, oil, or water [email or web address] threatened to shut off services in your home?No08/08/2025PHQ-2AnswerDate RecordedPHQ-2 dodiu163Hunger Vital Sign AnswerDate RecordedWithin the past 12 [...] 09/29/2023State Score (1-10), lower number is lower pcwp814ata from: https://www.neighborhoodatlas.medicine.[facility].edu/. Last address used for sbebj[address]4CommentsNoSex and Gender Information ValueDate RecordedSex Assigned at SddorPsohld83/23/2023 3:16 PM ESTLegal Sex Ludndv7807/03/2022 3:13 PM ESTGender AamdgbkdFvrngi79/23/2023 3:16 PM ESTSexual OrientationNot on file Last Filed Vital Signs Vital SignReadingTime TakenCommentsBlood Bcbegpbo578/8010 3:57 PM EDT Cqqen7929 3:57 PM GNPYxmbnnamcva63 ??C (98.6 ??F)03/01/2025 12:08 PM EDT Respiratory Xswt9002/ 12:08 PM EDTOxygen Cnctnkrzew00%03/01/2025 3:57 PM EDTInhaled Oxygen Concentration--Esbhga37.7 kg (169 lb)03/01/2025 3:48 PM EDT Aojkvj733.5 cm (5' 2 )02/28/2025 11:04 AM EDTBody Mass Index30.9102/28/2025 11:04 AM EDT Plan of Treatment DateTypeDepartmentCare Team (Latest Contact Info)Expuzwnaqni62/06/2025 9:30 AM ESTOffice Visit [facility] [address] [place] [address] Nati Noble PARossC [address] [place] [address] Next Available New Acqvsvm8803/23/2025 8:40 AM ESTOffice Visit Orthopaedics [address] [place] [address] Linda Malik PA-C [address] [place] [address] Dx: Carpal tunnel syndrome, bilateral [G56.03]04/18/2025 7:30 AM ESTOffice Visit OPHT Ophthalmology [address] [address] Tamara Sherwood MD [address] [place] [address] Please set the patient up for a 2 month virtual visit for history of IIH 04/24/2025 2:00 PM ESTOffice Visit Functional Medicine [address] [address] Janina Lock APRN.FORM BLOCK MAKER [address] [address] Multiple symptoms, lifestyle /17/2025 1:30 PM ESTOffice Visit Allergy [address] [place] [phone] Joyce Murguia MD [address] [place] [address] Follow up06/15/2025 1:45 PM ESTOffice Visit [facility] [address] [place] [address] [place] [address] [place] [address] Next Available New PatientHealth MaintenanceDue DateLast DoneCommentsAnnual PCP Team Chronic Disease Visit07/29/2003Depression Pcuxratah09/20/2004HIV Screening 07/29/2003Hepatitis C Qmvfiqmmq43/20/2004Hepatitis B Vaccine (1 of 3 - 19+ 3- dose series)2004Pneumococcal Vaccine (1 of 2 - PCV)2004Cervical Cancer Zssspsxnq56/20/2007HPV Vaccine (1 - 3-dose SCDM series)2012 DTaP,Tdap,Td Vaccine (2 - Td or Tdap)Covid-19 Vaccine ( - season)2025Influenza Vaccine (#1)2025 Procedures Procedure NamePriorityDate/TimeAssociated DiagnosisCommentsCBC + DIFFRoutine 03/03/2025 10:41 AM EDT Recurrent infections CBC + LCPRYgstqho17/22/2025 4:31 AM EDT COMPREHENSIVE METABOLIC OBTTOQixjhgt04/22/2025 4:31 AM EDT OLIGOCLONAL BAND GCFRzsmmrf04/21/2025 10:22 PM EDTTOURTELLOTTE BLOODRoutine 02/28/2025 10:22 PM EDTBACTERIAL CULTURE AND GRAM STAIN, CEREBROSPINAL FLUID (CSF)Iizvnld0902/28/2025 4:43 PM EDTCSF MANUAL VWTMIgqkyyi45/21/2025 4:43 PM EDT FLOW CYTOMETRY FOR LEUKEMIA/LYMPHOMA (FCLL) HQWBEFSEOZUWvuimvo29/21/2025 4:43 PM EDT TOURTELLOTTE WSAWtjqxsn71/21/2025 4:43 PM EDT OLIGOCLONAL CSF XGSXxtacyr03/21/2025 4:43 PM EDTGLUCOSE PBQVoasmuh63/21/2025 4:43 PM EDT PROTEIN NOVJhsubag07/21/2025 4:43 PM EDT CSF CELL JPWGNWfxyktn38/21/2025 4:43 PM EDT FLOW CYTOMETRY FOR LEUKEMIA/LYMPHOMA (FCLL)Skybrxf8402/28/2025 4:43 PM EDT CYTOLOGY NON-BRGJftunmg88/21/2025 4:43 PM EDT TOURTELLOTTE UPDZdszznl85/21/2025 4:43 PM EDT CSF ROUT BECTXFRDXhmfudp93/21/2025 4:43 PM EDT MRI ORBIT WO/W OXSLVPfslmke12/21/2025 8:15 AM EDT C-REACTIVE PROTEIN (CRP)Add-on02/28/2025 6:19 AM EDT SEDIMENTATION RATEAdd-on02/28/2025 6:19 AM EDT CBC + ZGMVZjjwicf05/21/2025 6:19 AM EDT COMPREHENSIVE METABOLIC YEMVKXvhdxpw97/21/2025 6:19 AM EDT XR HAND GENERAL 3V PA/LAT/OBL VUUUKFckkpdb31/20/2025 1:05 PM EDT Polyarthralgia IGG SUBCLASS 1,2,3,4Add-on02/27/2025 12:30 PM EDT IMMUNOGLOBULINS ABYKhlntto24/20/2025 12:30 PM EDT Polyarthralgia CCP ANTIBODY VDEBgearyd15/20/2025 12:30 PM EDT Polyarthralgia RHEUMATOID FACTOR MUOkxinls79/20/2025 12:30 PM EDT Polyarthralgia CBC + PJYJHvipqvt76/20/2025 12:30 PM EDT Polyarthralgia COMPREHENSIVE METABOLIC LWBZQCvpcsnc61/20/2025 12:30 PM EDT Chronic migraine without aura, with intractable migraine, so stated, with status migrainosus BSCAN AND ASCAN OU (BOTH EYES)Mywjwyb6402/27/2025 10:01 AM EDT Other localized visual field defect, bilateral OPTIC DISC PHOTO OU (BOTH EYES)Cbpxnna2502/27/2025 9:16 AM EDT Other localized visual field defect, bilateral VISUAL FIELD 24-2 OU (BOTH EYES)Dxhrmiw7502/27/2025 8:46 AM EDT Other localized visual field defect, bilateral OCT OPTIC NERVE CIRRUS OU (BOTH EYES)Ewdsuxa1202/24/2025 1:55 PM EDT History of papilledema OTHER OUTSIDE CD DICOM BFVDPO1801/26/2025 EMG(NEURO/NI)Mhnmzmz9001/20/2025 9:36 AM EDT Disturbance of skin sensation MRI OUTSIDE CD DICOM NFUZZC1401/16/2025 MRI OUTSIDE CD DICOM IZFVNJ5601/16/2025 OCT OPTIC NERVE CIRRUS OU (BOTH EYES)Cqpfbhc1701/10/2025 10:23 AM EDT Other localized visual field defect, bilateral VISUAL FIELD 24-2 OU (BOTH EYES)Pksogfq4301/10/2025 10:00 AM EDT Other localized visual field defect, bilateral IR VERTEBRAL EEAEVG5412/30/2024 3:40 PM EDT IR CAROTID BIL12/30/2024 3:40 PM EDT IR CAROTID MEHPPREE52/22/2025 3:40 PM EDT IR EXTERNAL FKMTUJZ4612/30/2024 3:40 PM EDT IR VERTEBRAL CTWYAJ3612/30/2024 3:40 PM EDT IR CEREBRAL ARCH & THREE TNKFPWQnvtcfi50/22/2025 3:40 PM EDT IIH (idiopathic intracranial hypertension) Migraine headaches PERIPHERAL IV WVKFUZFGJFjmohfy43/22/2025 2:49 PM EDT BHOJVBTKLDMnftztt87/22/2025 2:33 PM EDT NONSLCTV CATH THOR AORTA ANGIO INTR/XTRCRANL ART12/30/2024 2:02 PM EDT IIH (idiopathic intracranial hypertension) Migraine headaches MAGNESIUM UORUnjyqnu06/08/2025 8:18 AM EDT BASIC METABOLIC YCZNRTimzelt51/08/2025 8:18 AM EDT CTA NECK W MKKGTGZML01/08/2025 2:46 AM EDT CTA HEAD W LGOUOGXEX43/08/2025 2:46 AM EDT URINALYSIS (WITH MICROSCOPIC) WITH CULTURE IF CUYUNYVUXJEKV87/07/2025 7:42 PM EDT BETA HCG, QUANTITATIVE FOR TOOAOB5812/15/2024 7:36 PM EDT CBC + CCROFYRM25/07/2025 7:36 PM EDT COMPREHENSIVE METABOLIC EKRNTBVQX68/07/2025 7:36 PM EDT ACETYLCHOLINE REC BLOCKING YAQclivff90/05/2025 9:36 AM EDT Other dysphagia Weakness of both lower extremities ACETYLCHOLINE REC BINDING JIFdnlkay10/05/2025 9:36 AM EDT Other dysphagia Weakness of both lower extremities ACETYLCHO R MOD QMPnivvzj66/05/2025 9:36 AM EDT Other dysphagia Weakness of both lower extremities EMG(NEURO/NI)Axwkpdp5612/10/2024 11:10 AM EDT Tingling Numbness BASIC METABOLIC JWPAMMnkvwpp29/25/2025 10:11 AM EDT IIH (idiopathic intracranial hypertension) Chronic migraine without aura without status migrainosus, not intractable Encounter for medication monitoring COMPLETE BLOOD OGKWGIedgyej75/25/2025 10:11 AM EDT IIH (idiopathic intracranial hypertension) Chronic migraine without aura without status migrainosus, not intractable Encounter for medication monitoring from Last 3 Months Results * (ABNORMAL) COMPLETE BLOOD COUNT AND DIFFERENTIAL (03/03/2025 10:41 AM EDT) Only the most recent of5 resultswithin the time period is included. ComponentValueRef RangeTest MethodAnalysis TimePerformed AtPathologist Signature WBC6.313.70 - 11.00 k/uL03/03/2025 10:46 AM [facility]TN[facility] LABRBC4.263.90 - 5.20 m/uL03/03/2025 10:46 [facility] AMDUsdjonecye46.511.5 - 15.5 g/dL03/03/2025 10:46 AM [facility] EGUOndmwtlmqj77.236.0 - 46.0 %03/03/2025 10:46 AM EDT [facility] OFPFLY30.380.0 - 100.0 fL03/03/2025 10:46 AM [facility] NKFLWN51.726.0 - 34.0 pg03/03/2025 10:46 AM EDTNOSUMM[facility] XOVKSQI90.3(H)30.5 - 36.0 g/dL03/03/2025 10:46 AM [facility] LABRDW-CV11.4(L)11.5 - 15.0 % 03/03/2025 10:46 AM [facility] LABPlatelet Milsg657939 - 400 k/uL03/03/2025 10:46 AM [facility] LABMPV9.29.0 - 12.7 fL03/03/2025 10:46 AM [facility] LAB Neutrophils %36.2%03/03/2025 10:46 AM [facility] LAB Abs Neut2.291.45 - 7.50 k/uL03/03/2025 10:46 AM [facility] LABLymphocytes %51.7%03/03/2025 10:46 AM [facility] LABAbs Lymph3.261.00 - 4.00 k/uL03/03/2025 10:46 AM [facility] LABMonocytes %7.8%03/03/2025 10:46 AM [facility] LABAbs Mono0.49<0.87 k/uL03/03/2025 10:46 AM EDT [facility] LABEosinophils %3.5%03/03/2025 10:46 AM EDT [facility] LABAbs Eosin0.22<0.46 k/uL03/03/2025 10:46 AM [facility] LABBasophils %0.5%03/03/2025 10:46 AM EDT [facility] LABAbs Baso0.03<0.11 k/uL03/03/2025 10:46 AM [facility] LABImmature Granulocytes %0.3%03/03/2025 10:46 AM [facility]TM[facility] LABAbs Immature Gran<0.03<0.10 k/uL03/03/2025 10:46 AM [facility] LABNRBC0.0/100 WBC 03/03/2025 10:46 AM [facility] LABAbsolute nRBC<0.01 <0.01 k/uL03/03/2025 10:46 AM [facility]DR[facility] LABDiff Type Auto03/03/2025 10:46 AM [facility] LABSpecimen (Source)Anatomical Location / LateralityCollection Method / VolumeCollection TimeReceived TimeBloodBLOOD SPECIMEN / UnknownVenipuncture / Zrhkhao5603/03/2025 10:41 AM EDT1 10:43 AM EDT Narrative Authorizing ProviderResult TypeResult StatusDeepkiko Murguia MDLABORATORYFinal ResultPerforming OrganizationAddressCity/State/ZIP CodePhone Number [facility] [address] [place] [address] * (ABNORMAL) COMPREHENSIVE METABOLIC PANEL (03/01/2025 4:31 AM EDT) Only the most recent of4 resultswithin the time period is included. ComponentValueRef RangeTest MethodAnalysis TimePerformed AtPathologist Signature Protein, Total6.36.3 - 8.0 g/dL03/01/2025 6:36 [facility] Albumin4.23.9 - 4.9 g/dL03/01/2025 6:36 AM EDTCLEVEL[facility] LABCalcium, Total9.48.5 - 10.2 mg/dL03/01/2025 6:36 AM [facility] Bilirubin, Total0.40.2 - 1.3 mg/dL03/01/2025 6:36 AM [facility] LABAlkaline Xgamhbraiyj6123 - 123 U/L1 6:36 AM [facility] POMYYO88(H)13 - 35 U/L1 6:36 AM [facility] TSRRSO48(H)7 - 38 U/L1 6:36 AM [facility] OZHKcungem9346 - 99 mg/dL 03/01/2025 6:36 AM [facility] LABComment: The [place] Diabetes Association (ADA) provides guidance for cutoff [...] Standards of Medical Care in Diabetes 2016, [place] [employer]. Diabetes Care. 2016.39(Suppl 1). OCJ012 - 21 mg/dL03/01/2025 6:36 AM [facility] LABCreatinine0.88 0.58 - 0.96 mg/dL03/01/2025 6:36 AM [facility] FXKJrectp600187 - 144 mmol/L1 6:36 AM [facility] LABPotassium3.93.7 - 5.1 mmol/L1 6:36 AM [facility] EXZJrgyjmky54658 - 107 mmol/L 03/01/2025 6:36 AM [facility] TOTVU89729 - 30 mmol/L1 6:36 AM [facility] LABAnion Mhf779 - 15 mmol/L1 6:36 AM [facility] LABEstimated Glomerular Filtration Rate86>=60 mL/min/1.73m 03/01/2025 6:36 AM [facility] LABComment:Estimated Glomerular Filtration Rate (eGFR) [...] VolumeCollection TimeReceived TimeBloodBLOOD SPECIMEN / UnknownVenipuncture / Dydljrx8703/01/2025 4:31 AM EDT1 4:56 AM EDT Narrative Authorizing ProviderResult TypeResult StatusRobjasmin COPEABORATORYFinal ResultPerforming OrganizationAddressCity/State/ZIP CodePhone Number [facility] [address] [place] [address], * TOURTELLOTTE BLOOD (02/28/2025 10:22 PM EDT)Specimen (Source)Anatomical Location / LateralityCollection Method / VolumeCollection TimeReceived Time BloodBLOOD SPECIMEN / UnknownVenipuncture / Xfulqje7602/28/2025 10:22 PM EDT 02/28/2025 10:49 PM EDT Narrative Authorizing ProviderResult TypeResult StatusKatarina Alves MDLABORATORYFinal ResultPerforming OrganizationAddressCity/State/ZIP CodePhone Number [facility] [address] [place] [address], * OLIGOCLONAL BAND BLD (02/28/2025 10:22 PM EDT)Specimen (Source)Anatomical Location / LateralityCollection Method / VolumeCollection TimeReceived Time BloodBLOOD SPECIMEN / UnknownVenipuncture / Fkcqcto0702/28/2025 10:22 PM EDT 02/28/2025 10:49 PM EDT Narrative Authorizing ProviderResult TypeResult StatusKatarina Alves MDLABORATORYFinal ResultPerforming OrganizationAddressCity/State/ZIP CodePhone Number [facility] [address] [place] [address], * FLOW CYTOMETRY FOR LEUKEMIA/LYMPHOMA (FCLL) PERFORMABLE (02/28/2025 4:43 PM EDT)ComponentValueRef RangeTest MethodAnalysis TimePerformed AtPathologist SignatureFlow Cytometry Order StatusA??sample was received for potential flow cytometry studies. Following morphologic review, flow cytometric studies will be ordered by the hematopathologist if testing is indicated.03/01/2025 2:25 PM EDTCLEVELAND [facility] LABSpecimen (Source)Anatomical Location / Laterality Collection Method / VolumeCollection TimeReceived TimeCerebrospinal Fluid CEREBROSPINAL FLUID SPECIMEN / Mxixrts7902/28/2025 4:43 PM EDT1 4:56 PM EDT Narrative Authorizing ProviderResult TypeResult StatusKatarina Alves MDLABORATORYFinal ResultPerforming OrganizationAddressCity/State/ZIP CodePhone Number [facility] [address] [place] [address], * CSF MANUAL DIFF (02/28/2025 4:43 PM EDT)ComponentValueRef RangeTest Method Analysis TimePerformed AtPathologist SignatureDiff Total, KVE663jzkki counted 03/01/2025 1:21 PM EDTCMERCY [facility] LABLymph%, YBG5715 - 90 % 03/01/2025 1:21 PM EDTCLEVELAND [facility] MAIN LABMonocytes/Macrophages%, UEX7839 - 50 %03/01/2025 1:21 PM EDTCMERCY [facility]ENTERAND [facility] MAIN LABSpecimen (Source) Anatomical Location / LateralityCollection Method / VolumeCollection Time Received TimeCerebrospinal FluidCEREBROSPINAL FLUID SPECIMEN / Unknown 02/28/2025 4:43 PM EDT1 4:56 PM EDT Narrative Authorizing ProviderResult TypeResult StatusKatarina Alves MDLABORATORYFinal ResultPerforming OrganizationAddressCity/State/ZIP CodePhone Number [facility] [address] [place] [address], * CYTOLOGY NON-SOAKING TANK WORKER (02/28/2025 4:43 PM EDT)ComponentValueRef RangeTest Method Analysis TimePerformed AtPathologist SignatureCase ReportMedical Cytology Report ? Case: [id number] ? Authorizing Provider: ??Katarina Alves MD ? Collected: ? 02/28/2025 04:43 PM ? Ordering Location: ? HOSP MAIN G071 ? Received: ?02/28/2025 06:16 PM ? Pathologist: ? Neha Copeland MD ? Specimen: ?Cerebrospinal Fluid ? 03/02/2025 1:43 PM EDTFAIRVIEW LABORATORYFINAL DIAGNOSISA - Cerebrospinal Fluid Negative for malignant cells. 03/02/2025 1:43 PM [facility] LAB at 1343 EDTGross DescriptionA. Cerebrospinal Fluid 6 cc clear colorless fluid . ThinPrep prepared. 03/02/2025 1:43 PM EDWIL[facility] LABClinical HistoryConcerns for a lymphoproliferative awzlopws27/23/2025 1:43 PM [facility] Performing LabTechnical component, hot dog vender screening performed at: [facility], [address] [place] [id number] CLIA: [id number] Diagnostic interpretation performed at: [facility], [address] [place] [address] [id number] CLIA# [id number] Russian Teacher: Cayetano Reno MD 03/02/2025 1:43 PM EDTFSAINT MONICA'S HOME LABORATORYDisclaimerLaboratory Developed Test (LDT) Disclaimer: Performance characteristics of immunohistochemical, immunofluorescent, and chromogenic in-situ hybridization tests have been determined by the performing laboratory within the [facility] Department of Pathology and Laboratory Medicine ([facility], [facility], [facility], [facility], [facility], [facility], or [facility]) in a manner consistent with CLIA requirements. One or more of these tests may not have been cleared or approved by the FDA. The [facility] Department of Pathology and Laboratory Medicineis regulated under CLIA as qualified to perform high-complexity testing. These tests are used for clinical purposes. These should not be regarded as investigational or for research. Positive and negative controls stain appropriately.03/02/2025 1:43 PM EDT [facility] LABSpecimen (Source)Anatomical Location / Laterality Collection Method / VolumeCollection TimeReceived TimeCerebrospinal Fluid CEREBROSPINAL FLUID SPECIMEN / Asxqeom1302/28/2025 4:43 PM EDT1 6:16 PM EDT Narrative Authorizing ProviderResult TypeResult StatusKatarina Alves MDCYTOLOGYFinal Result Performing OrganizationAddressCity/State/ZIP CodePhone Number [facility] [address] [phone], [facility] [address] [place] [address], * OLIGOCLONAL CSF IGG (02/28/2025 4:43 PM EDT)Specimen (Source)Anatomical Location / LateralityCollection Method / VolumeCollection TimeReceived Time Cerebrospinal FluidCEREBROSPINAL FLUID SPECIMEN / Ptkhcjz9902/28/2025 4:43 PM EDT1 4:56 PM EDT Narrative Authorizing ProviderResult TypeResult StatusKatarina Alves MDLABORATORYFinal ResultPerforming OrganizationAddressCity/State/ZIP CodePhone Number [facility] [address] [place], [place] [id number], * (ABNORMAL) TOURTELLOTTE CSF (02/28/2025 4:43 PM EDT)ComponentValueRef Range Test MethodAnalysis TimePerformed AtPathologist SignatureImmunoglobulin G, CSF 1.61.0 - 3.0 mg/dL03/01/2025 11:31 AM [facility] LABAlbumin, CSF 24.410.0 - 30.0 mg/dL03/01/2025 11:31 AM [facility] LABCSF IgG / Albumin Ratio0.070.06 - 0.171 11:31 AM [facility] RADIO COMMENTATOR IgG Synthesis0.00.0 - 3.0 mg/day03/01/2025 11:31 AM [facility] LABIgG Index0.440.00 - 0.6103/01/2025 11:31 AM [facility] LABIgG, Yrstk249(L)700 - 1,600 mg/dL03/01/2025 11:31 AM [facility] LABAlbumin, Serum4,3003,900 - 4,900 mg/dL03/01/2025 11:31 AM [facility] LABSpecimen (Source)Anatomical Location / LateralityCollection Method / VolumeCollection TimeReceived TimeCerebrospinal FluidCEREBROSPINAL FLUID SPECIMEN / Gyeudsr2302/28/2025 4:43 PM EDT1 4:56 PM EDT Narrative Authorizing ProviderResult TypeResult StatusKatarina Alves MDLABORATORYFinal ResultPerforming OrganizationAddressCity/State/[facility] CodePhone Number [facility] [address] [place] [address], * PROTEIN CSF (02/28/2025 4:43 PM EDT)ComponentValueRef RangeTest MethodAnalysis TimePerformed AtPathologist SignatureProtein, FCB7990 - 45 mg/dL02/28/2025 6:36 PM [facility] LABSpecimen (Source)Anatomical Location / LateralityCollection Method / VolumeCollection TimeReceived TimeCerebrospinal FluidCEREBROSPINAL FLUID SPECIMEN / Pmzjkqp8202/28/2025 4:43 PM EDT1 4:56 PM EDT Narrative Authorizing ProviderResult TypeResult StatusKatarina Alves MDLABORATORYFinal ResultPerforming OrganizationAddressCity/State/ZIP CodePhone Number [facility] [address] [place] [address], * GLUCOSE CSF (02/28/2025 4:43 PM EDT)ComponentValueRef RangeTest MethodAnalysis TimePerformed AtPathologist SignatureGlucose, IRN7103 - 70 mg/dL02/28/2025 6:36 PM EDTCLEVELAND CLINIC MAIN LABComment: Lumbar CSF glucose values of healthy patients are approximately 60% of the plasma values and must always be compared with a concurrently measured plasma value for adequate clinical interpretation. References: 1. Glucose HK (GLUC3) [package insert V 12.0 [place]]. [employer], [place]. September 2015. 2. Angela Zarate, Jojo, H. (2015). Chapter 7: Glucose and Lactate. Mario Cordero al.(eds.), Cerebrospinal Fluid in Clinical Neurology. [place]: [employer]. Specimen (Source)Anatomical Location / LateralityCollection Method / Volume Collection TimeReceived TimeCerebrospinal FluidCEREBROSPINAL FLUID SPECIMEN / Kguqqnh8302/28/2025 4:43 PM EDT1 4:56 PM EDT Narrative Authorizing ProviderResult TypeResult StatusKatarina Alves MDLABORATORYFinal ResultPerforming OrganizationAddressCity/State/ZIP CodePhone Number [facility] [address] [place] [address], * CSF CELL COUNT (02/28/2025 4:43 PM EDT)ComponentValueRef RangeTest Method Analysis TimePerformed AtPathologist SignatureCSF Tube NumberSterile Container 02/28/2025 7:40 PM EDTCLEVELAND CLINIC MAIN LABColor, CSFColorlessColorless 02/28/2025 7:40 PM EDTCLEVELAND CLINIC MAIN LABClarity, CSFClearClear 02/28/2025 7:40 PM EDTCLEVELAND CLINIC MAIN LABSupernatant Color, CSFNot JrgbkfqdjQrlkpawep01/21/2025 7:40 PM EDTCLEVELAND CLINIC MAIN LABSupernatant Clarity, CSFNot DrvlkwdieGwoot90/21/2025 7:40 PM EDTCLEVELAND CLINIC [facility]IN LAB RBC, CSF00 - 5 cells/uL02/28/2025 7:40 PM EDTCLEVELAND CLINIC MAIN LABTotal Nucleated Cells, CSF10 - 5 cells/uL02/28/2025 7:40 PM EDTCKETTER[facility] MAIN LABSpecimen (Source)Anatomical Location / LateralityCollection Method / Volume Collection TimeReceived TimeCerebrospinal FluidCEREBROSPINAL FLUID SPECIMEN / Bfhsvgf0102/28/2025 4:43 PM EDT1 4:56 PM EDT Narrative Authorizing ProviderResult TypeResult StatusKatarina Alves MDLABORATORYFinal ResultPerforming OrganizationAddressCity/State/ZIP CodePhone Number [facility] [address] [place] [address], * MRI ORBIT WO/W IVCON (02/28/2025 8:15 AM EDT)Anatomical RegionLaterality ModalitySkullMagnetic ResonanceSpecimen (Source)Anatomical Location / LateralityCollection Method / VolumeCollection TimeReceived Time02/28/2025 8:15 AM EDT Impressions 02/28/2025 8:22 AM EDT IMPRESSION: Unremarkable appearance of the orbits.. Brusher Hand: ANA ?? Transcribe Date/Time: Feb 28 2025 [...] - - Infection/inflammatory - vison loss - [id number] - - - Orbit protocol with whole [...] on coronal T2 images. Procedure Note Provider, [facility] - 02/28/2025 * * *Final Report* * * DATE OF EXAM: Feb 28 2025 8:15AM QBM 0311 - MRI ORBIT WO/W IVCON / PROCEDURE REASON: vison loss * * * * Physician Interpretation * * * * EXAMINATION: MRI ORBIT WO/W IVCON HISTORY: vison loss - - - Infection/inflammatory - vison loss - [id number] - - - Orbit protocol with whole [...] IMPRESSION IMPRESSION: Unremarkable appearance of the orbits.. Brusher Hand: ANA Transcribe Date/Time: Feb 28 2025 8:16A Dictated by : TAMARA MONTEIRO MD This examination was interpreted and the report reviewed and electronically signed by: TAMARA MONTEIRO MD on Feb 28 2025 8:20AM EST Authorizing ProviderResult TypeResult StatusRobert Jessica DOMRI-PAMAFinal Result * SEDIMENTATION RATE, WESTERGREN (02/28/2025 6:19 AM EDT)ComponentValueRef Range Test MethodAnalysis TimePerformed AtPathologist SignatureSed Rate, Westergren 130 - 20 mm/hr02/28/2025 3:32 PM EDTCMERCY [facility]ALTH [facility] LABSpecimen (Source) Anatomical Location / LateralityCollection Method / VolumeCollection Time Received TimeBloodBLOOD SPECIMEN / UnknownVenipuncture / Jcuwfsh9802/28/2025 6:19 AM EDT1 6:54 AM EDT Narrative Authorizing ProviderResult TypeResult StatusKatarina Alves MDLABORATORYFinal ResultPerforming OrganizationAddressCity/State/ZIP CodePhone Number [facility] [address] * C-REACTIVE PROTEIN (02/28/2025 6:19 AM EDT)ComponentValueRef RangeTest Method Analysis TimePerformed AtPathologist SignatureCRP<0.3<0.9 mg/dL02/28/2025 2:57 PM EDTCKETTERING [facility]ALTH [facility] MAIN LABSpecimen (Source)Anatomical Location / LateralityCollection Method / VolumeCollection TimeReceived TimeBloodBLOOD SPECIMEN / UnknownVenipuncture / Psdvfpb7102/28/2025 6:19 AM EDT1 6:55 AM EDT Narrative Authorizing ProviderResult TypeResult StatusKatarina Alves MDLABORATORYFinal ResultPerforming OrganizationAddressCity/State/ZIP CodePhone Number [facility] [address] [place] [address], * XR HAND GENERAL 3V PA/LAT/OBL BILATERAL (02/27/2025 1:05 PM EDT)Anatomical RegionLateralityModalityHandOtherSpecimen (Source)Anatomical Location / LateralityCollection Method / VolumeCollection TimeReceived Time02/27/2025 1:05 PM EDT Impressions 02/27/2025 2:20 PM EDT IMPRESSION: Normal. Brusher Hand: ANA ?? Transcribe Date/Time: Feb 27 2025 [...] No other significant abnormality. Procedure Note Provider, [facility] - 02/27/2025 * * *Final Report* * [...] No other significant abnormality. IMPRESSION IMPRESSION: Normal. Brusher Hand: ANA Transcribe Date/Time: Feb 27 2025 2:17P Dictated by : BEN HANNA MD This examination was interpreted and the report reviewed and electronically signed by: BEN HANNA MD on Feb 27 2025 2:18PM EST Authorizing ProviderResult TypeResult StatusMahelen Boykin MDRAD-PAMA Final Result * CCP ANTIBODY IGG (02/27/2025 12:30 PM EDT)ComponentValueRef RangeTest Method Analysis TimePerformed AtPathologist SignatureCCP Antibody IgG Qualitative DakrhngyFgonazxa82/21/2025 11:48 AM EDWIL[facility] LABCCP Antibody, IgG<15<20 Units02/28/2025 11:48 AM [facility] LABSpecimen (Source)Anatomical Location / LateralityCollection Method / VolumeCollection TimeReceived TimeBloodBLOOD SPECIMEN / UnknownVenipuncture / Krwoygp8602/27/2025 12:30 PM EDT1 12:31 PM EDT [facility] MAIN LAB - 02/28/2025 11:48 AM EDT This test is used as aid in diagnosis of Rheumatoid arthritis (RA). A negative result cannot rule out RA where clinically suspected. Clinical correlation is required. The following results were obtained with an CPower QUANTA Lite CCP IgG JV. Cyclic Citrullinated Peptide IgG values obtained with different manufacturers' assay methods may not be used interchangeably. The magnitude of the reported IgG levels cannot be correlated to an endpoint titer. Authorizing ProviderResult TypeResult StatusAmelie Boykin MDLABORATORY Final ResultPerforming OrganizationAddressCity/State/ZIP CodePhone Number [facility] [address] [place] [address], * (ABNORMAL) IGG SUBCLASS 1,2,3,4 (02/27/2025 12:30 PM EDT)ComponentValueRef RangeTest MethodAnalysis TimePerformed AtPathologist SignatureIgG Subclass 1 357.5(L)382.4 - 928.6 mg/dL03/01/2025 12:04 PM EDTCLEVELAND [facility]IC MAIN LABIgG Subclass 2103.9(L)241.8 - 700.3 mg/dL03/01/2025 12:04 PM EDTCKETTERING [facility] MAIN LABIgG Subclass 349.821.8 - 176.1 mg/dL03/01/2025 12:04 PM [facility]TCLEVELSA[facility] LABIgG Subclass 411.43.9 - 86.4 mg/dL03/01/2025 12:04 PM EDT [facility] LABSpecimen (Source)Anatomical Location / Laterality Collection Method / VolumeCollection TimeReceived TimeBloodBLOOD SPECIMEN / UnknownVenipuncture / Kknkskc9702/27/2025 12:30 PM EDT1 12:31 PM EDT Narrative Authorizing ProviderResult TypeResult StatusKatarina Alves MDLABORATORYFinal ResultPerforming OrganizationAddressCity/State/ZIP CodePhone Number [facility] [address] [place] [address], * RHEUMATOID FACTOR (02/27/2025 12:30 PM EDT)ComponentValueRef RangeTest Method Analysis TimePerformed AtPathologist SignatureRheumatoid Factor<10<16 IU/mL 02/27/2025 4:39 PM EDTCMERCY [facility] LABSpecimen (Source)Anatomical Location / LateralityCollection Method / VolumeCollection TimeReceived Time BloodBLOOD SPECIMEN / UnknownVenipuncture / Fwqjetv5402/27/2025 12:30 PM EDT 02/27/2025 12:31 PM EDT Narrative Authorizing ProviderResult TypeResult StatusAmelie Boykin MDLABORATORY Final ResultPerforming OrganizationAddressCity/State/ZIP CodePhone Number [facility] [address] [phone], * (ABNORMAL) IMMUNOGLOBULINS,IGG,IGA,IGM (02/27/2025 12:30 PM EDT)ComponentValue Ref RangeTest MethodAnalysis TimePerformed AtPathologist CbdzbkogxNsD788(L)700 - 1,600 mg/dL02/27/2025 4:22 PM EDTCLEVEL[facility]IC [facility]IN LIOZxI89890 - 400 mg/dL02/27/2025 4:22 PM EDTCLEVELAND [facility]IC [facility]IN FEDGxR6500 - 230 mg/dL 02/27/2025 4:22 PM EDTCLEVELAND CL[facility]IC [facility]IN LABSpecimen (Source)Anatomical Location / LateralityCollection Method / VolumeCollection TimeReceived Time BloodBLOOD SPECIMEN / UnknownVenipuncture / Urzajor4102/27/2025 12:30 PM EDT 02/27/2025 12:31 PM EDT Narrative Authorizing ProviderResult TypeResult Jodie Boykin MDLABORATORY Final ResultPerforming OrganizationAddressCity/State/ZIP CodePhone Number [facility] [address] [phone], * BSCAN AND ASCAN OU (BOTH EYES) (02/27/2025 10:01 AM EDT)Anatomical Region LateralityModalityOther Narrative 02/27/2025 10:52 AM EDT Date of Procedure 02/27/2025 Engineer Second Assistant Information FLOR Chan CDOS 02/27/2025 10:00 AM [...] increased subarachnoid fluid ?? Authorizing ProviderResult TypeResult StatusTamara Sherwood MDOPHTHALMOLOGYFinal Result * OPTIC DISC PHOTO OU (BOTH EYES) (02/27/2025 9:16 AM EDT)Anatomical Region LateralityModalityOther Narrative 02/27/2025 10:59 AM EDT Date of Procedure 02/27/2025 Engineer Second Assistant Information Ground Crewman Aircraft Support: LG Interpretation Right Eye Disc edema. Left Eye Disc edema. Interval Change Right Eye Worse Left Eye Worse Authorizing ProviderResult TypeResult StatusTamara Sherwood MDOPHTHALMOLOGYFinal Result * VISUAL FIELD 24-2 OU (BOTH EYES) (02/27/2025 8:46 AM EDT)Anatomical Region LateralityModalityOther Narrative 02/27/2025 10:52 AM EDT Date of Procedure 02/27/2025 Engineer Second Assistant Information Ground Crewman Aircraft Support: BRAYDEN Start time: 8:29 AM Stop time: 8:46 AM I ASKED THE PATIENT IF THEY WERE ALLERGIC TO BANDAGES OR ADHESIVES PATIENT RESPONSE -YES. Reliability Right Eye Good. Left Eye Good. 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 Interval Change Right Eye Worse Left Eye Stable Authorizing ProviderResult TypeResult StatusTamara Sherwood MDOPHTHALMOLOGYFinal Result * OCT OPTIC NERVE CIRRUS OU (BOTH EYES) (02/24/2025 1:55 PM EDT)Anatomical RegionLateralityModalityOther Narrative 02/24/2025 2:48 PM EDT Date of Procedure 02/24/2025 Engineer Second Assistant Information Ground Crewman Aircraft Support: JAMES Start time: 1:55 PM Stop time: 1:55 PM Quality Right Eye Good. Left Eye Good. NFL Interpretation Right Eye RNFL Thickening Left Eye RNFL Thickening Ganglion Cell Layer Thickness Right Eye Normal Left Eye Normal Interval Change Right Eye Stable Left Eye Stable Authorizing ProviderResult TypeResult StatusAlexander Kimberly ODOPHTHALMOLOGY Final Result * WA-LUMBAR PUNCTURE CSF DIAGNOSTIC IMPORT (01/26/2025)Anatomical Region LateralityModalityOtherSpecimen (Source)Anatomical Location / Laterality Collection Method / VolumeCollection TimeReceived Time01/26/2025 Narrative 02/13/2025 8:00 PM EDT Images were obtained outside of [facility] Procedure Note Provider, [facility] - 02/13/2025 Images were obtained outside of [facility] Authorizing ProviderResult TypeResult StatusCcf ProviderRADIOLOGYFinal Result * EMG(NEURO/NI) (01/20/2025 9:36 AM EDT)Specimen (Source)Anatomical Location / LateralityCollection Method / VolumeCollection TimeReceived Time01/20/2025 9:36 AM EDT [facility] - 01/20/2025 10:03 AM EDT Results can be seen in attached scanned documents. If you are a patient reviewing this test result, call the doctor who ordered the test with any questions. Authorizing ProviderResult TypeResult StatusLisandro Gonsalez MDNEUROLOGY Final ResultPerforming OrganizationAddressCity/State/ZIP CodePhone Number [facility] * [place]-MRI BRAIN WITHOUT CONTRAST IMPORT (01/16/2025)Anatomical RegionLaterality ModalityOtherSpecimen (Source)Anatomical Location / LateralityCollection Method / VolumeCollection TimeReceived Time01/16/2025 Narrative 02/13/2025 8:01 PM EDT Images were obtained outside of [facility] Procedure Note Provider, [facility] - 02/13/2025 Images were obtained outside of [facility] Authorizing ProviderResult TypeResult StatusCcf ProviderMRIFinal Result * [place]-MRI SPINE LUMBAR WITHOUT CONTRAST IMPORT (01/16/2025)Anatomical Region LateralityModalityOtherSpecimen (Source)Anatomical Location / Laterality Collection Method / VolumeCollection TimeReceived Time01/16/2025 Narrative 02/13/2025 8:00 PM EDT Images were obtained outside of [facility] Procedure Note Provider, [facility] - 02/13/2025 Images were obtained outside of [facility] Authorizing ProviderResult TypeResult StatusCcf ProviderMRIFinal Result * OCT OPTIC NERVE CIRRUS OU (BOTH EYES) (01/10/2025 10:23 AM EDT)Anatomical RegionLateralityModalityOther Narrative 01/10/2025 11:23 AM EDT Date of Procedure 01/10/2025. Engineer Second Assistant Information Ground Crewman Aircraft Support: Laurel Winkler, PhD. Start time: 10:23 AM. Stop time: 10:23 AM. NFL Interpretation Right Eye Inferior loss. Interval Change Right Eye Stable. Left Eye Stable. Notes OCT: ? normal average pRNFL thickness OU; normal average GCL +IPL thickness OU Authorizing ProviderResult TypeResult StatusTamara Sherwood MDOPHTHALMOLOGYFinal Result * VISUAL FIELD 24-2 OU (BOTH EYES) (01/10/2025 10:00 AM EDT)Anatomical Region LateralityModalityOther Narrative 01/10/2025 11:25 AM EDT Date of Procedure 01/10/2025. Engineer Second Assistant Information Ground Crewman Aircraft Support: . Start time: 9:40 AM. Stop time: 10:00 AM. I ASKED THE PATEINT ARE THEY ALLERGIC TO BANDAGES OR ADHESIVE PATIENT SAID: NO Asked pt if it was ok to test with another pt in room pt said it was ok . Reliability Right Eye Good. Left Eye Good. 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 Interval Change Right Eye Better. Left Eye Better. Authorizing ProviderResult TypeResult Poornima Sherwood MDOPHTHALMOLOGYFinal Result * IR CAROTID CERVICAL (12/30/2024 3:40 PM EDT)Anatomical RegionLaterality ModalityOtherSpecimen (Source)Anatomical Location / LateralityCollection Method / VolumeCollection TimeReceived Time12/30/2024 3:40 PM EDT Impressions 12/30/2024 10:29 PM EDT IMPRESSION: 1. Moderate bilateral transverse sinus stenosis. 2. RIGHT transverse sinus-RIGHT internal jugular gradient of 8 mmHg. IPineda MD, PhD performed the procedure, reviewed the images, and edited the above report. Brusher Hand: ANA ?? Transcribe Date/Time: Dec 30 2024 ??5:43P Dictated by : PINEDA THOMAS MD This examination was interpreted and the report reviewed and electronically signed by: PINEDA THOMAS MD on Dec 30 2024 10:27PM ??EST Narrative 12/30/2024 10:29 PM EDT * * *Final Report* * * DATE OF EXAM: Dec 30 2024 ??3:40PM ?? NDA ?? [id number] ??- ??IR CAROTID NECK KODY ??/ PROCEDURE REASON: Procedure ? * * * * Physician Interpretation * * * * ENDOVASCULAR SURGICAL NEURORADIOLOGY REPORT CLINICAL HISTORY: ??This patient is a 39 years-old Female with idiopathic intracranial hypertension and venous sinus stenosis. A diagnostic cerebral angiogram and venous manometry was requested to evaluate the cerebral vasculature. PROCEDURE: 1. Ultrasound-guided femoral artery access. 2. Diagnostic cerebral angiogram. 3. Venous manometry. INFORMED CONSENT: The procedural risks, benefits, alternatives and complications were discussed with the patient. All questions were answered and they requested that we proceed. PRE-PROCEDURAL DIAGNOSIS: Idiopathic intracranial hypertension, venous sinus stenosis. POST-PROCEDURAL DIAGNOSIS: Same. TIME OUT TIME: 1501 PROCEDURE START TIME: 1503 PROCEDURE END TIME: 1540 ATTENDING: Pineda Thomas MD PhD The procedure was performed by the attending without an chiropractor assistant. ANESTHESIA: General anesthesia was provided by the [facility] anesthesiology department. ??Pulsed oximetry, cardiopulmonary monitoring and electrocardiography was performed throughout the procedure. ANGIOGRAPHY MATERIALS: Diagnostic catheter: 5 Togolese Vertebral Catheter Intermediate catheter: 6 Togolese Envoy MPD Microcatheter: XT-27 Microwire: Art 024 Guidewire: 0.035 inch angled tapered Glidewire. Fluoroscopic Radiation Summary: Plane A, Air Kerma: ??139.9 mGy Plane B, Air Kerma: ??67.8 mGy Dose Area Product (DAP): ?? 38462.7 mGy*cm2 Fluoro time: ??11:42 min:sec Radiation dose exceed 5 Gy: No If radiation dose exceeded 5 Gy, was counseling and instructional brochure provided:N/A Contrast (intra-arterial): ??60 ml of OMNIPAQUE 300 TECHNIQUE: After delfina discussion of the risks and benefits of diagnostic cerebral angiography, informed consent was obtained. The patient was brought to the angiography suite and placed in supine position. ??General anesthesia was induced by the anesthesiology staff. ??The right groin was prepped and draped in the usual standard fashion. After fluoroscopic localization of the right femoral head, the artery was visualized with ultrasound. Right common femoral artery: normal and patent. The right femoral artery was found to be sufficient for transfemoral access. A permanent image of the artery was archived. Vascular access was then obtained in the artery utilizing a standard 4 Fr micropuncture set, under direct ultrasound visualization. A 5 Fr sheath was inserted and connected to heparinized saline flush. The RIGHT femoral vein was found to be sufficient for transfemoral access. ??Permanent image of the vein was archived. ??Vascular access was in the vein utilizing a standard 4 Fr micropuncture set under direct ultrasound visualization. ??A 6 Fr sheath was inserted and connected to heparinized saline flush. A standard diagnostic catheter and wire were then fluoroscopically advanced for selective catheterization of the following vessels: Brachiocephalic vascular family: Right common carotid artery, cervical views. Right internal carotid artery, intracranial views. Standard AP, lateral and oblique views. Right external carotid artery, cranial views. Right vertebral artery, intracranial views. Standard AP and lateral views. Left carotid vascular family: Left common carotid artery, cervical views. Left internal carotid artery, intracranial views. Standard AP and lateral views. Left external carotid artery, cranial views. Left vertebral artery, intracranial views. Standard AP and lateral views. Right femoral artery Angiographic imaging was performed at each selected vessel with views as described above. The diagnostic catheter was LEFT in the RIGHT internal carotid artery on flush. Heparin 3000 units was administered. We then turned our attention to the venous side. ??Under fluoroscopic guidance, the intermediate catheter was advanced across the heart over the Glidewire and up to the RIGHT internal jugular vein without difficulty. ??Then, under roadmap guidance, the intracranial venous system was accessed using the microcatheter and microwire from the RIGHT internal jugular up the RIGHT sigmoid sinus, across the torcula, down the LEFT transverse and sigmoid sinuses, and into the LEFT internal jugular vein. The microwire was removed and the microcatheter was flushed and connected to a pressure transducer. ??Venous pressure measurements were made throughout the transverse sigmoid system bilaterally as recorded below. ?? The venous catheters were then removed. ??Final angiography was performed through the arterial catheter in the RIGHT internal carotid artery to confirm no complications. ??The arterial catheter was then removed. ?? Angiography of the RIGHT groin confirmed appropriate access in the RIGHT common femoral artery without complication. ??The arterial access was closed with a 6 Fr Starclose arteriotomy device and the venous access was closed with a 6 Fr Mynx closure device. ??The patient was aroused from general anesthesia to her baseline neuro exam and transported to the PACU without complication. FINDINGS: RIGHT COMMON CAROTID ARTERY INJECTION (cervical): The distal right common carotid is normal. No significant stenosis of the right cervical ICA. The proximal ECA and its branches are normal. There is no evidence of dissection or arteriovenous shunting. RIGHT INTERNAL CAROTID ARTERY INJECTION (cranial): The distal right internal carotid and the anterior and middle cerebral arteries are normal. The ophthalmic artery opacifies normally with expected choroidal blush. The anterior communicating artery is normal and there is flash filling of the contralateral anterior cerebral artery territory. ??The parenchymal phase is normal. ??No aneurysm, arteriovenous shunting, or vasculopathy. There is moderate focal stenosis in the mid RIGHT transverse sinus and at the lateral LEFT transverse sinus. ??The anterior third of the severe sagittal sinus is not opacified from the RIGHT ICA injection, although this region of this appears sagittal sinus is seen on subsequent LEFT anterior circulation injections. RIGHT EXTERNAL CAROTID ARTERY INJECTION (cranial): The external carotid artery course, caliber and terminal branches are normal. The superficial temporal artery has frontal and temporal branches larger than 1mm in size. No arteriovenous shunting is identified. LEFT COMMON CAROTID ARTERY INJECTION (cervical): The distal left common carotid is normal. No significant stenosis of the right cervical ICA. The proximal ECA and its branches are normal. There is no evidence of dissection or arteriovenous shunting. LEFT INTERNAL CAROTID ARTERY INJECTION (cranial): The distal left internal carotid and the anterior and middle cerebral arteries are normal. The ophthalmic artery opacifies normally with expected choroidal blush. 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 ??The anterior communicating artery is normal and there is flash filling of the contralateral anterior cerebral artery territory. ??The parenchymal phase is normal. ??No aneurysm or arteriovenous shunting is identified. ??On the venous phase, there is moderate focal stenosis in the mid RIGHT transverse sinus and at the lateral LEFT transverse sinus. ??The transverse sinuses are codominant. LEFT EXTERNAL CAROTID ARTERY INJECTION (cranial): The external carotid artery course, caliber and terminal branches are normal. The superficial temporal artery has frontal and temporal branches larger than 1mm in size. No arteriovenous shunting is identified. RIGHT VERTEBRAL ARTERY INJECTION (cranial): The distal right vertebral artery, basilar artery and branches opacify normally. Bilateral PICA, AICA, and SCA are normal. The bilateral posterior cerebral arteries are normal. The parenchymal and venous phases are normal. No aneurysm, arteriovenous shunting, or vasculopathy. ??RIGHT occipital developmental venous anomaly is noted. LEFT VERTEBRAL ARTERY INJECTION (cranial): The LEFT vertebral artery is nondominant. ??The distal LEFT vertebral artery opacifies normally. ??The basilar artery and branches opacify normally. ??The RIGHT V4 segment does not opacify with this injection in the LEFT P1 segment is hypoplastic. ?? No arteriovenous shunting or aneurysm is identified. ??There is a RIGHT occipital developmental venous anomaly seen on the late phase. RIGHT FEMORAL ARTERY: DSA images of the right common femoral artery demonstrate normal course and caliber of the vessel. The sheath is placed in the straight segment of the artery, above the bifurcation. There is no evidence of dissection or pseudoaneurysm. VENOUS MANOMETRY MEASUREMENTS (mmHg): LEFT internal jugular: 10 LEFT sigmoid sinus: 10 LEFT transverse sinus: 16 RIGHT transverse sinus: 18 RIGHT sigmoid sinus: 11 RIGHT internal jugular: 10 COMPLICATIONS: No complications were observed during or immediately after the procedure. Authorizing ProviderResult TypeResult StatusLajayde Scott MULTIPLE SPINDLE SCREW MACHINE OPERATOR.FORM BLOCK MAKER INTERVENTIONAL RADIOLOGYFinal Result * IR EXTERNAL CAROTID (12/30/2024 3:40 PM EDT)Anatomical RegionLaterality ModalityOtherSpecimen (Source)Anatomical Location / LateralityCollection Method / VolumeCollection TimeReceived Time12/30/2024 3:40 PM EDT Impressions 12/30/2024 10:29 PM EDT IMPRESSION: 1. Moderate bilateral transverse sinus stenosis. 2. RIGHT transverse sinus-RIGHT internal jugular gradient of 8 mmHg. IPineda MD, PhD performed the procedure, reviewed the images, and edited the above report. Brusher Hand: PSCB ?? Transcribe Date/Time: Dec 30 2024 ??5:43P Dictated by : PINEDA THOMAS MD This examination was interpreted and the report reviewed and electronically signed by: PINEDA THOMAS MD on Dec 30 2024 10:27PM ??EST Narrative 12/30/2024 10:29 PM EDT * * *Final Report* * * DATE OF EXAM: Dec 30 2024 ??3:40PM ?? NDA ?? [id number] ??- ??IR EXT CAROTID KODY CEREBRAL ??/ PROCEDURE REASON: Procedure ? * * * * Physician Interpretation * * * * ENDOVASCULAR SURGICAL NEURORADIOLOGY REPORT CLINICAL HISTORY: ??This patient is a 39 years-old Female with idiopathic intracranial hypertension and venous sinus stenosis. A diagnostic cerebral angiogram and venous manometry was requested to evaluate the cerebral vasculature. PROCEDURE: 1. Ultrasound-guided femoral artery access. 2. Diagnostic cerebral angiogram. 3. Venous manometry. INFORMED CONSENT: The procedural risks, benefits, alternatives and complications were discussed with the patient. All questions were answered and they requested that we proceed. PRE-PROCEDURAL DIAGNOSIS: Idiopathic intracranial hypertension, venous sinus stenosis. POST-PROCEDURAL DIAGNOSIS: Same. TIME OUT TIME: 1501 PROCEDURE START TIME: 1503 PROCEDURE END TIME: 1540 ATTENDING: Pineda Thomas MD PhD The procedure was performed by the attending without an chiropractor assistant. ANESTHESIA: General anesthesia was provided by the [facility] anesthesiology department. ??Pulsed oximetry, cardiopulmonary monitoring and electrocardiography was performed throughout the procedure. ANGIOGRAPHY MATERIALS: Diagnostic catheter: 5 Togolese Vertebral Catheter Intermediate catheter: 6 Togolese Envoy MPD Microcatheter: XT-27 Microwire: Art 024 Guidewire: 0.035 inch angled tapered Glidewire. Fluoroscopic Radiation Summary: Plane A, Air Kerma: ??139.9 mGy Plane B, Air Kerma: ??67.8 mGy Dose Area Product (DAP): ?? 49938.7 mGy*cm2 Fluoro time: ??11:42 min:sec Radiation dose exceed 5 Gy: No If radiation dose exceeded 5 Gy, was counseling and instructional brochure provided:N/A Contrast (intra-arterial): ??60 ml of OMNIPAQUE 300 TECHNIQUE: After delfina discussion of the risks and benefits of diagnostic cerebral angiography, informed consent was obtained. The patient was brought to the angiography suite and placed in supine position. ??General anesthesia was induced by the anesthesiology staff. ??The right groin was prepped and draped in the usual standard fashion. After fluoroscopic localization of the right femoral head, the artery was visualized with ultrasound. Right common femoral artery: normal and patent. The right femoral artery was found to be sufficient for transfemoral access. A permanent image of the artery was archived. Vascular access was then obtained in the artery utilizing a standard 4 Fr micropuncture set, under direct ultrasound visualization. A 5 Fr sheath was inserted and connected to heparinized saline flush. The RIGHT femoral vein was found to be sufficient for transfemoral access. ??Permanent image of the vein was archived. ??Vascular access was in the vein utilizing a standard 4 Fr micropuncture set under direct ultrasound visualization. ??A 6 Fr sheath was inserted and connected to heparinized saline flush. A standard diagnostic catheter and wire were then fluoroscopically advanced for selective catheterization of the following vessels: Brachiocephalic vascular family: Right common carotid artery, cervical views. Right internal carotid artery, intracranial views. Standard AP, lateral and oblique views. Right external carotid artery, cranial views. Right vertebral artery, intracranial views. Standard AP and lateral views. Left carotid vascular family: Left common carotid artery, cervical views. Left internal carotid artery, intracranial views. Standard AP and lateral views. Left external carotid artery, cranial views. Left vertebral artery, intracranial views. Standard AP and lateral views. Right femoral artery Angiographic imaging was performed at each selected vessel with views as described above. The diagnostic catheter was LEFT in the RIGHT internal carotid artery on flush. Heparin 3000 units was administered. We then turned our attention to the venous side. ??Under fluoroscopic guidance, the intermediate catheter was advanced across the heart over the Glidewire and up to the RIGHT internal jugular vein without difficulty. ??Then, under roadmap guidance, the intracranial venous system was accessed using the microcatheter and microwire from the RIGHT internal jugular up the RIGHT sigmoid sinus, across the torcula, down the LEFT transverse and sigmoid sinuses, and into the LEFT internal jugular vein. The microwire was removed and the microcatheter was flushed and connected to a pressure transducer. ??Venous pressure measurements were made throughout the transverse sigmoid system bilaterally as recorded below. ?? The venous catheters were then removed. ??Final angiography was performed through the arterial catheter in the RIGHT internal carotid artery to confirm no complications. ??The arterial catheter was then removed. ?? Angiography of the RIGHT groin confirmed appropriate access in the RIGHT common femoral artery without complication. ??The arterial access was closed with a 6 Fr Starclose arteriotomy device and the venous access was closed with a 6 Fr Mynx closure device. ??The patient was aroused from general anesthesia to her baseline neuro exam and transported to the PACU without complication. FINDINGS: RIGHT COMMON CAROTID ARTERY INJECTION (cervical): The distal right common carotid is normal. No significant stenosis of the right cervical ICA. The proximal ECA and its branches are normal. There is no evidence of dissection or arteriovenous shunting. RIGHT INTERNAL CAROTID ARTERY INJECTION (cranial): The distal right internal carotid and the anterior and middle cerebral arteries are normal. The ophthalmic artery opacifies normally with expected choroidal blush. The anterior communicating artery is normal and there is flash filling of the contralateral anterior cerebral artery territory. ??The parenchymal phase is normal. ??No aneurysm, arteriovenous shunting, or vasculopathy. There is moderate focal stenosis in the mid RIGHT transverse sinus and at the lateral LEFT transverse sinus. ??The anterior third of the severe sagittal sinus is not opacified from the RIGHT ICA injection, although this region of this appears sagittal sinus is seen on subsequent LEFT anterior circulation injections. RIGHT EXTERNAL CAROTID ARTERY INJECTION (cranial): The external carotid artery course, caliber and terminal branches are normal. The superficial temporal artery has frontal and temporal branches larger than 1mm in size. No arteriovenous shunting is identified. LEFT COMMON CAROTID ARTERY INJECTION (cervical): The distal left common carotid is normal. No significant stenosis of the right cervical ICA. The proximal ECA and its branches are normal. There is no evidence of dissection or arteriovenous shunting. LEFT INTERNAL CAROTID ARTERY INJECTION (cranial): The distal left internal carotid and the anterior and middle cerebral arteries are normal. The ophthalmic artery opacifies normally with expected choroidal blush. 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 ??The anterior communicating artery is normal and there is flash filling of the contralateral anterior cerebral artery territory. ??The parenchymal phase is normal. ??No aneurysm or arteriovenous shunting is identified. ??On the venous phase, there is moderate focal stenosis in the mid RIGHT transverse sinus and at the lateral LEFT transverse sinus. ??The transverse sinuses are codominant. LEFT EXTERNAL CAROTID ARTERY INJECTION (cranial): The external carotid artery course, caliber and terminal branches are normal. The superficial temporal artery has frontal and temporal branches larger than 1mm in size. No arteriovenous shunting is identified. RIGHT VERTEBRAL ARTERY INJECTION (cranial): The distal right vertebral artery, basilar artery and branches opacify normally. Bilateral PICA, AICA, and SCA are normal. The bilateral posterior cerebral arteries are normal. The parenchymal and venous phases are normal. No aneurysm, arteriovenous shunting, or vasculopathy. ??RIGHT occipital developmental venous anomaly is noted. LEFT VERTEBRAL ARTERY INJECTION (cranial): The LEFT vertebral artery is nondominant. ??The distal LEFT vertebral artery opacifies normally. ??The basilar artery and branches opacify normally. ??The RIGHT V4 segment does not opacify with this injection in the LEFT P1 segment is hypoplastic. ?? No arteriovenous shunting or aneurysm is identified. ??There is a RIGHT occipital developmental venous anomaly seen on the late phase. RIGHT FEMORAL ARTERY: DSA images of the right common femoral artery demonstrate normal course and caliber of the vessel. The sheath is placed in the straight segment of the artery, above the bifurcation. There is no evidence of dissection or pseudoaneurysm. VENOUS MANOMETRY MEASUREMENTS (mmHg): LEFT internal jugular: 10 LEFT sigmoid sinus: 10 LEFT transverse sinus: 16 RIGHT transverse sinus: 18 RIGHT sigmoid sinus: 11 RIGHT internal jugular: 10 COMPLICATIONS: No complications were observed during or immediately after the procedure. Authorizing ProviderResult TypeResult StatusLajayde Scott MULTIPLE SPINDLE SCREW MACHINE OPERATOR.FORM BLOCK MAKER INTERVENTIONAL RADIOLOGYFinal Result * IR VERTEBRAL ARTERY (12/30/2024 3:40 PM EDT)Anatomical RegionLaterality ModalityOtherSpecimen (Source)Anatomical Location / LateralityCollection Method / VolumeCollection TimeReceived Time12/30/2024 3:40 PM EDT Impressions 12/30/2024 10:29 PM EDT IMPRESSION: 1. Moderate bilateral transverse sinus stenosis. 2. RIGHT transverse sinus-RIGHT internal jugular gradient of 8 mmHg. Pineda De La O MD, PhD performed the procedure, reviewed the images, and edited the above report. Brusher Hand: ANA ?? Transcribe Date/Time: Dec 30 2024 ??5:43P Dictated by : PINEDA THOMAS MD This examination was interpreted and the report reviewed and electronically signed by: PINEDA THOMAS MD on Dec 30 2024 10:27PM ??EST Narrative 12/30/2024 10:29 PM EDT * * *Final Report* * * DATE OF EXAM: Dec 30 2024 ??3:40PM ?? NDA ?? [id number] ??- ??IR VERTEBRAL ARTERY ??/ PROCEDURE REASON: Procedure ? * * * * Physician Interpretation * * * * ENDOVASCULAR SURGICAL NEURORADIOLOGY REPORT CLINICAL HISTORY: ??This patient is a 39 years-old Female with idiopathic intracranial hypertension and venous sinus stenosis. A diagnostic cerebral angiogram and venous manometry was requested to evaluate the cerebral vasculature. PROCEDURE: 1. Ultrasound-guided femoral artery access. 2. Diagnostic cerebral angiogram. 3. Venous manometry. INFORMED CONSENT: The procedural risks, benefits, alternatives and complications were discussed with the patient. All questions were answered and they requested that we proceed. PRE-PROCEDURAL DIAGNOSIS: Idiopathic intracranial hypertension, venous sinus stenosis. POST-PROCEDURAL DIAGNOSIS: Same. TIME OUT TIME: 1501 PROCEDURE START TIME: 1503 PROCEDURE END TIME: 1540 ATTENDING: Pineda Thomas MD PhD The procedure was performed by the attending without an chiropractor assistant. ANESTHESIA: General anesthesia was provided by the [facility] anesthesiology department. ??Pulsed oximetry, cardiopulmonary monitoring and electrocardiography was performed throughout the procedure. ANGIOGRAPHY MATERIALS: Diagnostic catheter: 5 Togolese Vertebral Catheter Intermediate catheter: 6 Togolese Envoy MPD Microcatheter: XT-27 Microwire: Art 024 Guidewire: 0.035 inch angled tapered Glidewire. Fluoroscopic Radiation Summary: Plane A, Air Kerma: ??139.9 mGy Plane B, Air Kerma: ??67.8 mGy Dose Area Product (DAP): ?? 73578.7 mGy*cm2 Fluoro time: ??11:42 min:sec Radiation dose exceed 5 Gy: No If radiation dose exceeded 5 Gy, was counseling and instructional brochure provided:N/A Contrast (intra-arterial): ??60 ml of OMNIPAQUE 300 TECHNIQUE: After delfina discussion of the risks and benefits of diagnostic cerebral angiography, informed consent was obtained. The patient was brought to the angiography suite and placed in supine position. ??General anesthesia was induced by the anesthesiology staff. ??The right groin was prepped and draped in the usual standard fashion. After fluoroscopic localization of the right femoral head, the artery was visualized with ultrasound. Right common femoral artery: normal and patent. The right femoral artery was found to be sufficient for transfemoral access. A permanent image of the artery was archived. Vascular access was then obtained in the artery utilizing a standard 4 Fr micropuncture set, under direct ultrasound visualization. A 5 Fr sheath was inserted and connected to heparinized saline flush. The RIGHT femoral vein was found to be sufficient for transfemoral access. ??Permanent image of the vein was archived. ??Vascular access was in the vein utilizing a standard 4 Fr micropuncture set under direct ultrasound visualization. ??A 6 Fr sheath was inserted and connected to heparinized saline flush. A standard diagnostic catheter and wire were then fluoroscopically advanced for selective catheterization of the following vessels: Brachiocephalic vascular family: Right common carotid artery, cervical views. Right internal carotid artery, intracranial views. Standard AP, lateral and oblique views. Right external carotid artery, cranial views. Right vertebral artery, intracranial views. Standard AP and lateral views. Left carotid vascular family: Left common carotid artery, cervical views. Left internal carotid artery, intracranial views. Standard AP and lateral views. Left external carotid artery, cranial views. Left vertebral artery, intracranial views. Standard AP and lateral views. Right femoral artery Angiographic imaging was performed at each selected vessel with views as described above. The diagnostic catheter was LEFT in the RIGHT internal carotid artery on flush. Heparin 3000 units was administered. We then turned our attention to the venous side. ??Under fluoroscopic guidance, the intermediate catheter was advanced across the heart over the Glidewire and up to the RIGHT internal jugular vein without difficulty. ??Then, under roadmap guidance, the intracranial venous system was accessed using the microcatheter and microwire from the RIGHT internal jugular up the RIGHT sigmoid sinus, across the torcula, down the LEFT transverse and sigmoid sinuses, and into the LEFT internal jugular vein. The microwire was removed and the microcatheter was flushed and connected to a pressure transducer. ??Venous pressure measurements were made throughout the transverse sigmoid system bilaterally as recorded below. ?? The venous catheters were then removed. ??Final angiography was performed through the arterial catheter in the RIGHT internal carotid artery to confirm no complications. ??The arterial catheter was then removed. ?? Angiography of the RIGHT groin confirmed appropriate access in the RIGHT common femoral artery without complication. ??The arterial access was closed with a 6 Fr Starclose arteriotomy device and the venous access was closed with a 6 Fr Mynx closure device. ??The patient was aroused from general anesthesia to her baseline neuro exam and transported to the PACU without complication. FINDINGS: RIGHT COMMON CAROTID ARTERY INJECTION (cervical): The distal right common carotid is normal. No significant stenosis of the right cervical ICA. The proximal ECA and its branches are normal. There is no evidence of dissection or arteriovenous shunting. RIGHT INTERNAL CAROTID ARTERY INJECTION (cranial): The distal right internal carotid and the anterior and middle cerebral arteries are normal. The ophthalmic artery opacifies normally with expected choroidal blush. The anterior communicating artery is normal and there is flash filling of the contralateral anterior cerebral artery territory. ??The parenchymal phase is normal. ??No aneurysm, arteriovenous shunting, or vasculopathy. There is moderate focal stenosis in the mid RIGHT transverse sinus and at the lateral LEFT transverse sinus. ??The anterior third of the severe sagittal sinus is not opacified from the RIGHT ICA injection, although this region of this appears sagittal sinus is seen on subsequent LEFT anterior circulation injections. RIGHT EXTERNAL CAROTID ARTERY INJECTION (cranial): The external carotid artery course, caliber and terminal branches are normal. The superficial temporal artery has frontal and temporal branches larger than 1mm in size. No arteriovenous shunting is identified. LEFT COMMON CAROTID ARTERY INJECTION (cervical): The distal left common carotid is normal. No significant stenosis of the right cervical ICA. The proximal ECA and its branches are normal. There is no evidence of dissection or arteriovenous shunting. LEFT INTERNAL CAROTID ARTERY INJECTION (cranial): The distal left internal carotid and the anterior and middle cerebral arteries are normal. The ophthalmic artery opacifies normally with expected choroidal blush. 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 ??The anterior communicating artery is normal and there is flash filling of the contralateral anterior cerebral artery territory. ??The parenchymal phase is normal. ??No aneurysm or arteriovenous shunting is identified. ??On the venous phase, there is moderate focal stenosis in the mid RIGHT transverse sinus and at the lateral LEFT transverse sinus. ??The transverse sinuses are codominant. LEFT EXTERNAL CAROTID ARTERY INJECTION (cranial): The external carotid artery course, caliber and terminal branches are normal. The superficial temporal artery has frontal and temporal branches larger than 1mm in size. No arteriovenous shunting is identified. RIGHT VERTEBRAL ARTERY INJECTION (cranial): The distal right vertebral artery, basilar artery and branches opacify normally. Bilateral PICA, AICA, and SCA are normal. The bilateral posterior cerebral arteries are normal. The parenchymal and venous phases are normal. No aneurysm, arteriovenous shunting, or vasculopathy. ??RIGHT occipital developmental venous anomaly is noted. LEFT VERTEBRAL ARTERY INJECTION (cranial): The LEFT vertebral artery is nondominant. ??The distal LEFT vertebral artery opacifies normally. ??The basilar artery and branches opacify normally. ??The RIGHT V4 segment does not opacify with this injection in the LEFT P1 segment is hypoplastic. ?? No arteriovenous shunting or aneurysm is identified. ??There is a RIGHT occipital developmental venous anomaly seen on the late phase. RIGHT FEMORAL ARTERY: DSA images of the right common femoral artery demonstrate normal course and caliber of the vessel. The sheath is placed in the straight segment of the artery, above the bifurcation. There is no evidence of dissection or pseudoaneurysm. VENOUS MANOMETRY MEASUREMENTS (mmHg): LEFT internal jugular: 10 LEFT sigmoid sinus: 10 LEFT transverse sinus: 16 RIGHT transverse sinus: 18 RIGHT sigmoid sinus: 11 RIGHT internal jugular: 10 COMPLICATIONS: No complications were observed during or immediately after the procedure. Authorizing ProviderResult TypeResult StatusLajayde Scott MULTIPLE SPINDLE SCREW MACHINE OPERATOR.FORM BLOCK MAKER INTERVENTIONAL RADIOLOGYFinal Result * IR VERTEBRAL ARTERY (12/30/2024 3:40 PM EDT)Anatomical RegionLaterality ModalityOtherSpecimen (Source)Anatomical Location / LateralityCollection Method / VolumeCollection TimeReceived Time12/30/2024 3:40 PM EDT Impressions 12/30/2024 10:29 PM EDT IMPRESSION: 1. Moderate bilateral transverse sinus stenosis. 2. RIGHT transverse sinus-RIGHT internal jugular gradient of 8 mmHg. IPineda MD, PhD performed the procedure, reviewed the images, and edited the above report. Brusher Hand: PSCB ?? Transcribe Date/Time: Dec 30 2024 ??5:43P Dictated by : PINEDA THOMAS MD This examination was interpreted and the report reviewed and electronically signed by: PINEDA THOMAS MD on Dec 30 2024 10:27PM ??EST Narrative 12/30/2024 10:29 PM EDT * * *Final Report* * * DATE OF EXAM: Dec 30 2024 ??3:40PM ?? NDA ?? [id number] ??- ??IR VERTEBRAL ARTERY ??/ PROCEDURE REASON: Procedure ? * * * * Physician Interpretation * * * * ENDOVASCULAR SURGICAL NEURORADIOLOGY REPORT CLINICAL HISTORY: ??This patient is a 39 years-old Female with idiopathic intracranial hypertension and venous sinus stenosis. A diagnostic cerebral angiogram and venous manometry was requested to evaluate the cerebral vasculature. PROCEDURE: 1. Ultrasound-guided femoral artery access. 2. Diagnostic cerebral angiogram. 3. Venous manometry. INFORMED CONSENT: The procedural risks, benefits, alternatives and complications were discussed with the patient. All questions were answered and they requested that we proceed. PRE-PROCEDURAL DIAGNOSIS: Idiopathic intracranial hypertension, venous sinus stenosis. POST-PROCEDURAL DIAGNOSIS: Same. TIME OUT TIME: 1501 PROCEDURE START TIME: 1503 PROCEDURE END TIME: 1540 ATTENDING: Pineda Thomas MD PhD The procedure was performed by the attending without an chiropractor assistant. ANESTHESIA: General anesthesia was provided by the [facility] anesthesiology department. ??Pulsed oximetry, cardiopulmonary monitoring and electrocardiography was performed throughout the procedure. ANGIOGRAPHY MATERIALS: Diagnostic catheter: 5 Togolese Vertebral Catheter Intermediate catheter: 6 [place]ese Envoy MPD Microcatheter: XT-27 Microwire: Art 024 Guidewire: 0.035 inch angled tapered Glidewire. Fluoroscopic Radiation Summary: Plane A, Air Kerma: ??139.9 mGy Plane B, Air Kerma: ??67.8 mGy Dose Area Product (DAP): ?? 59072.7 mGy*cm2 Fluoro time: ??11:42 min:sec Radiation dose exceed 5 Gy: No If radiation dose exceeded 5 Gy, was counseling and instructional brochure provided:N/A Contrast (intra-arterial): ??60 ml of OMNIPAQUE 300 TECHNIQUE: After delfina discussion of the risks and benefits of diagnostic cerebral angiography, informed consent was obtained. The patient was brought to the angiography suite and placed in supine position. ??General anesthesia was induced by the anesthesiology staff. ??The right groin was prepped and draped in the usual standard fashion. After fluoroscopic localization of the right femoral head, the artery was visualized with ultrasound. Right common femoral artery: normal and patent. The right femoral artery was found to be sufficient for transfemoral access. A permanent image of the artery was archived. Vascular access was then obtained in the artery utilizing a standard 4 Fr micropuncture set, under direct ultrasound visualization. A 5 Fr sheath was inserted and connected to heparinized saline flush. The RIGHT femoral vein was found to be sufficient for transfemoral access. ??Permanent image of the vein was archived. ??Vascular access was in the vein utilizing a standard 4 Fr micropuncture set under direct ultrasound visualization. ??A 6 Fr sheath was inserted and connected to heparinized saline flush. A standard diagnostic catheter and wire were then fluoroscopically advanced for selective catheterization of the following vessels: Brachiocephalic vascular family: Right common carotid artery, cervical views. Right internal carotid artery, intracranial views. Standard AP, lateral and oblique views. Right external carotid artery, cranial views. Right vertebral artery, intracranial views. Standard AP and lateral views. Left carotid vascular family: Left common carotid artery, cervical views. Left internal carotid artery, intracranial views. Standard AP and lateral views. Left external carotid artery, cranial views. Left vertebral artery, intracranial views. Standard AP and lateral views. Right femoral artery Angiographic imaging was performed at each selected vessel with views as described above. The diagnostic catheter was LEFT in the RIGHT internal carotid artery on flush. Heparin 3000 units was administered. We then turned our attention to the venous side. ??Under fluoroscopic guidance, the intermediate catheter was advanced across the heart over the Glidewire and up to the RIGHT internal jugular vein without difficulty. ??Then, under roadmap guidance, the intracranial venous system was accessed using the microcatheter and microwire from the RIGHT internal jugular up the RIGHT sigmoid sinus, across the torcula, down the LEFT transverse and sigmoid sinuses, and into the LEFT internal jugular vein. The microwire was removed and the microcatheter was flushed and connected to a pressure transducer. ??Venous pressure measurements were made throughout the transverse sigmoid system bilaterally as recorded below. ?? The venous catheters were then removed. ??Final angiography was performed through the arterial catheter in the RIGHT internal carotid artery to confirm no complications. ??The arterial catheter was then removed. ?? Angiography of the RIGHT groin confirmed appropriate access in the RIGHT common femoral artery without complication. ??The arterial access was closed with a 6 Fr Starclose arteriotomy device and the venous access was closed with a 6 Fr Mynx closure device. ??The patient was aroused from general anesthesia to her baseline neuro exam and transported to the PACU without complication. FINDINGS: RIGHT COMMON CAROTID ARTERY INJECTION (cervical): The distal right common carotid is normal. No significant stenosis of the right cervical ICA. The proximal ECA and its branches are normal. There is no evidence of dissection or arteriovenous shunting. RIGHT INTERNAL CAROTID ARTERY INJECTION (cranial): The distal right internal carotid and the anterior and middle cerebral arteries are normal. The ophthalmic artery opacifies normally with expected choroidal blush. The anterior communicating artery is normal and there is flash filling of the contralateral anterior cerebral artery territory. ??The parenchymal phase is normal. ??No aneurysm, arteriovenous shunting, or vasculopathy. There is moderate focal stenosis in the mid RIGHT transverse sinus and at the lateral LEFT transverse sinus. ??The anterior third of the severe sagittal sinus is not opacified from the RIGHT ICA injection, although this region of this appears sagittal sinus is seen on subsequent LEFT anterior circulation injections. RIGHT EXTERNAL CAROTID ARTERY INJECTION (cranial): The external carotid artery course, caliber and terminal branches are normal. The superficial temporal artery has frontal and temporal branches larger than 1mm in size. No arteriovenous shunting is identified. LEFT COMMON CAROTID ARTERY INJECTION (cervical): The distal left common carotid is normal. No significant stenosis of the right cervical ICA. The proximal ECA and its branches are normal. There is no evidence of dissection or arteriovenous shunting. LEFT INTERNAL CAROTID ARTERY INJECTION (cranial): The distal left internal carotid and the anterior and middle cerebral arteries are normal. The ophthalmic artery opacifies normally with expected choroidal blush. 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 ??The anterior communicating artery is normal and there is flash filling of the contralateral anterior cerebral artery territory. ??The parenchymal phase is normal. ??No aneurysm or arteriovenous shunting is identified. ??On the venous phase, there is moderate focal stenosis in the mid RIGHT transverse sinus and at the lateral LEFT transverse sinus. ??The transverse sinuses are codominant. LEFT EXTERNAL CAROTID ARTERY INJECTION (cranial): The external carotid artery course, caliber and terminal branches are normal. The superficial temporal artery has frontal and temporal branches larger than 1mm in size. No arteriovenous shunting is identified. RIGHT VERTEBRAL ARTERY INJECTION (cranial): The distal right vertebral artery, basilar artery and branches opacify normally. Bilateral PICA, AICA, and SCA are normal. The bilateral posterior cerebral arteries are normal. The parenchymal and venous phases are normal. No aneurysm, arteriovenous shunting, or vasculopathy. ??RIGHT occipital developmental venous anomaly is noted. LEFT VERTEBRAL ARTERY INJECTION (cranial): The LEFT vertebral artery is nondominant. ??The distal LEFT vertebral artery opacifies normally. ??The basilar artery and branches opacify normally. ??The RIGHT V4 segment does not opacify with this injection in the LEFT P1 segment is hypoplastic. ?? No arteriovenous shunting or aneurysm is identified. ??There is a RIGHT occipital developmental venous anomaly seen on the late phase. RIGHT FEMORAL ARTERY: DSA images of the right common femoral artery demonstrate normal course and caliber of the vessel. The sheath is placed in the straight segment of the artery, above the bifurcation. There is no evidence of dissection or pseudoaneurysm. VENOUS MANOMETRY MEASUREMENTS (mmHg): LEFT internal jugular: 10 LEFT sigmoid sinus: 10 LEFT transverse sinus: 16 RIGHT transverse sinus: 18 RIGHT sigmoid sinus: 11 RIGHT internal jugular: 10 COMPLICATIONS: No complications were observed during or immediately after the procedure. Authorizing ProviderResult TypeResult StatusAmira Scott MULTIPLE SPINDLE SCREW MACHINE OPERATOR.FORM BLOCK MAKER INTERVENTIONAL RADIOLOGYFinal Result * IR CEREBRAL ARCH & THREE VESSEL (12/30/2024 3:40 PM EDT)Anatomical Region LateralityModalityOtherSpecimen (Source)Anatomical Location / Laterality Collection Method / VolumeCollection TimeReceived Time12/30/2024 3:40 PM EDT Impressions 12/30/2024 10:29 PM EDT IMPRESSION: 1. Moderate bilateral transverse sinus stenosis. 2. RIGHT transverse sinus-RIGHT internal jugular gradient of 8 mmHg. IPineda MD, PhD performed the procedure, reviewed the images, and edited the above report. Brusher Hand: PSCB ?? Transcribe Date/Time: Dec 30 2024 ??5:43P Dictated by : PINEDA THOMAS MD This examination was interpreted and the report reviewed and electronically signed by: PINEDA THOMAS MD on Dec 30 2024 10:27PM ??EST Narrative 12/30/2024 10:29 PM EDT * * *Final Report* * * DATE OF EXAM: Dec 30 2024 ??3:40PM ?? NDA ?? [id number] ??- ??IR CAROTID - INTERNAL ??/ PROCEDURE REASON: Procedure ? * * * * Physician Interpretation * * * * ENDOVASCULAR SURGICAL NEURORADIOLOGY REPORT CLINICAL HISTORY: ??This patient is a 39 years-old Female with idiopathic intracranial hypertension and venous sinus stenosis. A diagnostic cerebral angiogram and venous manometry was requested to evaluate the cerebral vasculature. PROCEDURE: 1. Ultrasound-guided femoral artery access. 2. Diagnostic cerebral angiogram. 3. Venous manometry. INFORMED CONSENT: The procedural risks, benefits, alternatives and complications were discussed with the patient. All questions were answered and they requested that we proceed. PRE-PROCEDURAL DIAGNOSIS: Idiopathic intracranial hypertension, venous sinus stenosis. POST-PROCEDURAL DIAGNOSIS: Same. TIME OUT TIME: 1501 PROCEDURE START TIME: 1503 PROCEDURE END TIME: 1540 ATTENDING: Pineda Thomas MD PhD The procedure was performed by the attending without an chiropractor assistant. ANESTHESIA: General anesthesia was provided by the [facility] anesthesiology department. ??Pulsed oximetry, cardiopulmonary monitoring and electrocardiography was performed throughout the procedure. ANGIOGRAPHY MATERIALS: Diagnostic catheter: 5 Togolese Vertebral Catheter Intermediate catheter: 6 [place]ese Envoy MPD Microcatheter: XT-27 Microwire: Art 024 Guidewire: 0.035 inch angled tapered Glidewire. Fluoroscopic Radiation Summary: Plane A, Air Kerma: ??139.9 mGy Plane B, Air Kerma: ??67.8 mGy Dose Area Product (DAP): ?? 07876.7 mGy*cm2 Fluoro time: ??11:42 min:sec Radiation dose exceed 5 Gy: No If radiation dose exceeded 5 Gy, was counseling and instructional brochure provided:N/A Contrast (intra-arterial): ??60 ml of OMNIPAQUE 300 TECHNIQUE: After delfina discussion of the risks and benefits of diagnostic cerebral angiography, informed consent was obtained. The patient was brought to the angiography suite and placed in supine position. ??General anesthesia was induced by the anesthesiology staff. ??The right groin was prepped and draped in the usual standard fashion. After fluoroscopic localization of the right femoral head, the artery was visualized with ultrasound. Right common femoral artery: normal and patent. The right femoral artery was found to be sufficient for transfemoral access. A permanent image of the artery was archived. Vascular access was then obtained in the artery utilizing a standard 4 Fr micropuncture set, under direct ultrasound visualization. A 5 Fr sheath was inserted and connected to heparinized saline flush. The RIGHT femoral vein was found to be sufficient for transfemoral access. ??Permanent image of the vein was archived. ??Vascular access was in the vein utilizing a standard 4 Fr micropuncture set under direct ultrasound visualization. ??A 6 Fr sheath was inserted and connected to heparinized saline flush. A standard diagnostic catheter and wire were then fluoroscopically advanced for selective catheterization of the following vessels: Brachiocephalic vascular family: Right common carotid artery, cervical views. Right internal carotid artery, intracranial views. Standard AP, lateral and oblique views. Right external carotid artery, cranial views. Right vertebral artery, intracranial views. Standard AP and lateral views. Left carotid vascular family: Left common carotid artery, cervical views. Left internal carotid artery, intracranial views. Standard AP and lateral views. Left external carotid artery, cranial views. Left vertebral artery, intracranial views. Standard AP and lateral views. Right femoral artery Angiographic imaging was performed at each selected vessel with views as described above. The diagnostic catheter was LEFT in the RIGHT internal carotid artery on flush. Heparin 3000 units was administered. We then turned our attention to the venous side. ??Under fluoroscopic guidance, the intermediate catheter was advanced across the heart over the Glidewire and up to the RIGHT internal jugular vein without difficulty. ??Then, under roadmap guidance, the intracranial venous system was accessed using the microcatheter and microwire from the RIGHT internal jugular up the RIGHT sigmoid sinus, across the torcula, down the LEFT transverse and sigmoid sinuses, and into the LEFT internal jugular vein. The microwire was removed and the microcatheter was flushed and connected to a pressure transducer. ??Venous pressure measurements were made throughout the transverse sigmoid system bilaterally as recorded below. ?? The venous catheters were then removed. ??Final angiography was performed through the arterial catheter in the RIGHT internal carotid artery to confirm no complications. ??The arterial catheter was then removed. ?? Angiography of the RIGHT groin confirmed appropriate access in the RIGHT common femoral artery without complication. ??The arterial access was closed with a 6 Fr Starclose arteriotomy device and the venous access was closed with a 6 Fr Mynx closure device. ??The patient was aroused from general anesthesia to her baseline neuro exam and transported to the PACU without complication. FINDINGS: RIGHT COMMON CAROTID ARTERY INJECTION (cervical): The distal right common carotid is normal. No significant stenosis of the right cervical ICA. The proximal ECA and its branches are normal. There is no evidence of dissection or arteriovenous shunting. RIGHT INTERNAL CAROTID ARTERY INJECTION (cranial): The distal right internal carotid and the anterior and middle cerebral arteries are normal. The ophthalmic artery opacifies normally with expected choroidal blush. The anterior communicating artery is normal and there is flash filling of the contralateral anterior cerebral artery territory. ??The parenchymal phase is normal. ??No aneurysm, arteriovenous shunting, or vasculopathy. There is moderate focal stenosis in the mid RIGHT transverse sinus and at the lateral LEFT transverse sinus. ??The anterior third of the severe sagittal sinus is not opacified from the RIGHT ICA injection, although this region of this appears sagittal sinus is seen on subsequent LEFT anterior circulation injections. RIGHT EXTERNAL CAROTID ARTERY INJECTION (cranial): The external carotid artery course, caliber and terminal branches are normal. The superficial temporal artery has frontal and temporal branches larger than 1mm in size. No arteriovenous shunting is identified. LEFT COMMON CAROTID ARTERY INJECTION (cervical): The distal left common carotid is normal. No significant stenosis of the right cervical ICA. The proximal ECA and its branches are normal. There is no evidence of dissection or arteriovenous shunting. LEFT INTERNAL CAROTID ARTERY INJECTION (cranial): The distal left internal carotid and the anterior and middle cerebral arteries are normal. The ophthalmic artery opacifies normally with expected choroidal blush. 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 ??The anterior communicating artery is normal and there is flash filling of the contralateral anterior cerebral artery territory. ??The parenchymal phase is normal. ??No aneurysm or arteriovenous shunting is identified. ??On the venous phase, there is moderate focal stenosis in the mid RIGHT transverse sinus and at the lateral LEFT transverse sinus. ??The transverse sinuses are codominant. LEFT EXTERNAL CAROTID ARTERY INJECTION (cranial): The external carotid artery course, caliber and terminal branches are normal. The superficial temporal artery has frontal and temporal branches larger than 1mm in size. No arteriovenous shunting is identified. RIGHT VERTEBRAL ARTERY INJECTION (cranial): The distal right vertebral artery, basilar artery and branches opacify normally. Bilateral PICA, AICA, and SCA are normal. The bilateral posterior cerebral arteries are normal. The parenchymal and venous phases are normal. No aneurysm, arteriovenous shunting, or vasculopathy. ??RIGHT occipital developmental venous anomaly is noted. LEFT VERTEBRAL ARTERY INJECTION (cranial): The LEFT vertebral artery is nondominant. ??The distal LEFT vertebral artery opacifies normally. ??The basilar artery and branches opacify normally. ??The RIGHT V4 segment does not opacify with this injection in the LEFT P1 segment is hypoplastic. ?? No arteriovenous shunting or aneurysm is identified. ??There is a RIGHT occipital developmental venous anomaly seen on the late phase. RIGHT FEMORAL ARTERY: DSA images of the right common femoral artery demonstrate normal course and caliber of the vessel. The sheath is placed in the straight segment of the artery, above the bifurcation. There is no evidence of dissection or pseudoaneurysm. VENOUS MANOMETRY MEASUREMENTS (mmHg): LEFT internal jugular: 10 LEFT sigmoid sinus: 10 LEFT transverse sinus: 16 RIGHT transverse sinus: 18 RIGHT sigmoid sinus: 11 RIGHT internal jugular: 10 COMPLICATIONS: No complications were observed during or immediately after the procedure. Authorizing ProviderResult TypeResult StatusKamillejayde Greenwood Tyler MULTIPLE SPINDLE SCREW MACHINE OPERATOR.FORM BLOCK MAKER INTERVENTIONAL RADIOLOGYFinal Result * IR CAROTID KODY (12/30/2024 3:40 PM EDT)Anatomical RegionLateralityModality OtherSpecimen (Source)Anatomical Location / LateralityCollection Method / VolumeCollection TimeReceived Time12/30/2024 3:40 PM EDT Impressions 12/30/2024 10:29 PM EDT IMPRESSION: 1. Moderate bilateral transverse sinus stenosis. 2. RIGHT transverse sinus-RIGHT internal jugular gradient of 8 mmHg. IPineda MD, PhD performed the procedure, reviewed the images, and edited the above report. Brusher Hand: PSCB ?? Transcribe Date/Time: Dec 30 2024 ??5:43P Dictated by : PINEDA THOMAS MD This examination was interpreted and the report reviewed and electronically signed by: PINEDA THOMAS MD on Dec 30 2024 10:27PM ??EST Narrative 12/30/2024 10:29 PM EDT * * *Final Report* * * DATE OF EXAM: Dec 30 2024 ??3:40PM ?? NDA ?? 5130 ??- ??IR CAROTID - INTERNAL ??/ PROCEDURE REASON: Procedure ? * * * * Physician Interpretation * * * * ENDOVASCULAR SURGICAL NEURORADIOLOGY REPORT CLINICAL HISTORY: ??This patient is a 39 years-old Female with idiopathic intracranial hypertension and venous sinus stenosis. A diagnostic cerebral angiogram and venous manometry was requested to evaluate the cerebral vasculature. PROCEDURE: 1. Ultrasound-guided femoral artery access. 2. Diagnostic cerebral angiogram. 3. Venous manometry. INFORMED CONSENT: The procedural risks, benefits, alternatives and complications were discussed with the patient. All questions were answered and they requested that we proceed. PRE-PROCEDURAL DIAGNOSIS: Idiopathic intracranial hypertension, venous sinus stenosis. POST-PROCEDURAL DIAGNOSIS: Same. TIME OUT TIME: 1501 PROCEDURE START TIME: 1503 PROCEDURE END TIME: 1540 ATTENDING: Pineda Thomas MD PhD The procedure was performed by the attending without an chiropractor assistant. ANESTHESIA: General anesthesia was provided by the [facility] anesthesiology department. ??Pulsed oximetry, cardiopulmonary monitoring and electrocardiography was performed throughout the procedure. ANGIOGRAPHY MATERIALS: Diagnostic catheter: 5 [place]olese Vertebral Catheter Intermediate catheter: 6 [place]ogol[place] Envoy MPD Microcatheter: XT-27 Microwire: Art 024 Guidewire: 0.035 inch angled tapered Glidewire. Fluoroscopic Radiation Summary: Plane A, Air Kerma: ??139.9 mGy Plane B, Air Kerma: ??67.8 mGy Dose Area Product (DAP): ?? 97996.7 mGy*cm2 Fluoro time: ??11:42 min:sec Radiation dose exceed 5 Gy: No If radiation dose exceeded 5 Gy, was counseling and instructional brochure provided:N/A Contrast (intra-arterial): ??60 ml of OMNIPAQUE 300 TECHNIQUE: After delfina discussion of the risks and benefits of diagnostic cerebral angiography, informed consent was obtained. The patient was brought to the angiography suite and placed in supine position. ??General anesthesia was induced by the anesthesiology staff. ??The right groin was prepped and draped in the usual standard fashion. After fluoroscopic localization of the right femoral head, the artery was visualized with ultrasound. Right common femoral artery: normal and patent. The right femoral artery was found to be sufficient for transfemoral access. A permanent image of the artery was archived. Vascular access was then obtained in the artery utilizing a standard 4 Fr micropuncture set, under direct ultrasound visualization. A 5 Fr sheath was inserted and connected to heparinized saline flush. The RIGHT femoral vein was found to be sufficient for transfemoral access. ??Permanent image of the vein was archived. ??Vascular access was in the vein utilizing a standard 4 Fr micropuncture set under direct ultrasound visualization. ??A 6 Fr sheath was inserted and connected to heparinized saline flush. A standard diagnostic catheter and wire were then fluoroscopically advanced for selective catheterization of the following vessels: Brachiocephalic vascular family: Right common carotid artery, cervical views. Right internal carotid artery, intracranial views. Standard AP, lateral and oblique views. Right external carotid artery, cranial views. Right vertebral artery, intracranial views. Standard AP and lateral views. Left carotid vascular family: Left common carotid artery, cervical views. Left internal carotid artery, intracranial views. Standard AP and lateral views. Left external carotid artery, cranial views. Left vertebral artery, intracranial views. Standard AP and lateral views. Right femoral artery Angiographic imaging was performed at each selected vessel with views as described above. The diagnostic catheter was LEFT in the RIGHT internal carotid artery on flush. Heparin 3000 units was administered. We then turned our attention to the venous side. ??Under fluoroscopic guidance, the intermediate catheter was advanced across the heart over the Glidewire and up to the RIGHT internal jugular vein without difficulty. ??Then, under roadmap guidance, the intracranial venous system was accessed using the microcatheter and microwire from the RIGHT internal jugular up the RIGHT sigmoid sinus, across the torcula, down the LEFT transverse and sigmoid sinuses, and into the LEFT internal jugular vein. The microwire was removed and the microcatheter was flushed and connected to a pressure transducer. ??Venous pressure measurements were made throughout the transverse sigmoid system bilaterally as recorded below. ?? The venous catheters were then removed. ??Final angiography was performed through the arterial catheter in the RIGHT internal carotid artery to confirm no complications. ??The arterial catheter was then removed. ?? Angiography of the RIGHT groin confirmed appropriate access in the RIGHT common femoral artery without complication. ??The arterial access was closed with a 6 Fr Starclose arteriotomy device and the venous access was closed with a 6 Fr Mynx closure device. ??The patient was aroused from general anesthesia to her baseline neuro exam and transported to the PACU without complication. FINDINGS: RIGHT COMMON CAROTID ARTERY INJECTION (cervical): The distal right common carotid is normal. No significant stenosis of the right cervical ICA. The proximal ECA and its branches are normal. There is no evidence of dissection or arteriovenous shunting. RIGHT INTERNAL CAROTID ARTERY INJECTION (cranial): The distal right internal carotid and the anterior and middle cerebral arteries are normal. The ophthalmic artery opacifies normally with expected choroidal blush. The anterior communicating artery is normal and there is flash filling of the contralateral anterior cerebral artery territory. ??The parenchymal phase is normal. ??No aneurysm, arteriovenous shunting, or vasculopathy. There is moderate focal stenosis in the mid RIGHT transverse sinus and at the lateral LEFT transverse sinus. ??The anterior third of the severe sagittal sinus is not opacified from the RIGHT ICA injection, although this region of this appears sagittal sinus is seen on subsequent LEFT anterior circulation injections. RIGHT EXTERNAL CAROTID ARTERY INJECTION (cranial): The external carotid artery course, caliber and terminal branches are normal. The superficial temporal artery has frontal and temporal branches larger than 1mm in size. No arteriovenous shunting is identified. LEFT COMMON CAROTID ARTERY INJECTION (cervical): The distal left common carotid is normal. No significant stenosis of the right cervical ICA. The proximal ECA and its branches are normal. There is no evidence of dissection or arteriovenous shunting. LEFT INTERNAL CAROTID ARTERY INJECTION (cranial): The distal left internal carotid and the anterior and middle cerebral arteries are normal. The ophthalmic artery opacifies normally with expected choroidal blush. 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 ??The anterior communicating artery is normal and there is flash filling of the contralateral anterior cerebral artery territory. ??The parenchymal phase is normal. ??No aneurysm or arteriovenous shunting is identified. ??On the venous phase, there is moderate focal stenosis in the mid RIGHT transverse sinus and at the lateral LEFT transverse sinus. ??The transverse sinuses are codominant. LEFT EXTERNAL CAROTID ARTERY INJECTION (cranial): The external carotid artery course, caliber and terminal branches are normal. The superficial temporal artery has frontal and temporal branches larger than 1mm in size. No arteriovenous shunting is identified. RIGHT VERTEBRAL ARTERY INJECTION (cranial): The distal right vertebral artery, basilar artery and branches opacify normally. Bilateral PICA, AICA, and SCA are normal. The bilateral posterior cerebral arteries are normal. The parenchymal and venous phases are normal. No aneurysm, arteriovenous shunting, or vasculopathy. ??RIGHT occipital developmental venous anomaly is noted. LEFT VERTEBRAL ARTERY INJECTION (cranial): The LEFT vertebral artery is nondominant. ??The distal LEFT vertebral artery opacifies normally. ??The basilar artery and branches opacify normally. ??The RIGHT V4 segment does not opacify with this injection in the LEFT P1 segment is hypoplastic. ?? No arteriovenous shunting or aneurysm is identified. ??There is a RIGHT occipital developmental venous anomaly seen on the late phase. RIGHT FEMORAL ARTERY: DSA images of the right common femoral artery demonstrate normal course and caliber of the vessel. The sheath is placed in the straight segment of the artery, above the bifurcation. There is no evidence of dissection or pseudoaneurysm. VENOUS MANOMETRY MEASUREMENTS (mmHg): LEFT internal jugular: 10 LEFT sigmoid sinus: 10 LEFT transverse sinus: 16 RIGHT transverse sinus: 18 RIGHT sigmoid sinus: 11 RIGHT internal jugular: 10 COMPLICATIONS: No complications were observed during or immediately after the procedure. Authorizing ProviderResult TypeResult StatusAmira Scott APRN.CNP INTERVENTIONAL RADIOLOGYFinal Result * PERIPHERAL IV PLACEMENT (12/30/2024 2:49 PM EDT) Narrative Daniel Sexton APRN.CRNA - 12/30/2024 2:49 PM EDT Daniel Sexton APRN.BABYSITTER 12/30/2024 2:50 PM PIV General Information Procedure Start Time/Medication Administration: 12/30/2024 2:49 PM Procedure End Time: 12/30/2024 2:49 PM Patient Location: ??OR Staffing Anesthesiologist: Crow Allen MD BABYSITTER: Daniel Sexton APRN.CRNA Performed by: BABYSITTER and anesthesiologist Preparation Sterility Preparation: hand hygiene performed prior to procedure ?? Site Prep: alcohol Procedure Details Indication: need for IV access Needle Size/Type: 18 gauge angiocath Orientation: ??Right Location: ??Hand Imaging Guidance Used: ??No Authorizing ProviderResult TypeResult StatusCrow AMAYA ORDERABLESFinal Result * Airway (12/30/2024 2:33 PM EDT) Daniel Fernandes APRN.CRNA - 12/30/2024 2:33 PM EDT Daniel Sexton APRN.CRNA 12/30/2024 2:49 PM Airway General Information Procedure Start Time/Medication Administration: 12/30/2024 2:33 PM Procedure End Time: 12/30/2024 2:35 PM Patient location during procedure: OR Timeout Performed Pre-procedure: timeout performed Consent Obtained: Yes Patient identity confirmed: arm band and patient Staffing Anesthesiologist: Crow Allen MD BABYSITTER: Daniel Sexton APRN.CRNA Performed by: BABYSITTER and anesthesiologist Indications and Patient Condition Indications for airway management: anesthesia Preoxygenated: yes ? anesthesia circuit Patient position: sniffing Method: asleep Cricoid Pressure: No Manual In-Line Stabilization: No Difficult Mask: No Final Airway Details Final airway type: endotracheal airwayFinal Endotracheal Airway: ETT Cuffed: yes Successful intubation technique: video laryngoscopy Devices used: [employer] Endotracheal tube insertion site: oral Blade size: #3 ETT size (mm): 7.0 Measured from: teeth Measurement (cm): 20 Placement verified by: capnometry Cormack-Lehane Classification: grade I - full view of glottis Number of attempts at approach: 1 Failed airway: no Unrecognized esophageal intubation: no Airway not difficult Authorizing ProviderResult TypeResult StatusHarcalos Allen MDANESTHESIA ORDERABLESFinal Result * MAGNESIUM (12/16/2024 8:18 AM EDT)ComponentValueRef RangeTest MethodAnalysis TimePerformed AtPathologist SignatureMagnesium2.31.7 - 2.3 mg/dL12/16/2024 9:39 AM EDTFAIRVIEW LABORATORYSpecimen (Source)Anatomical Location / LateralityCollection Method / VolumeCollection TimeReceived TimeBloodBLOOD SPECIMEN / UnknownVenipuncture / [id number]/16/2024 8:18 AM EDT12/16/2024 9:09 AM EDT Narrative Authorizing ProviderResult TypeResult StatusKrista Carrillo PA-CLABORATORYFinal ResultPerforming OrganizationAddressCity/State/ZIP CodePhone Number [address] * (ABNORMAL) BASIC METABOLIC PANEL (12/16/2024 8:18 AM EDT) Only the most recent of2 resultswithin the time period is included. ComponentValueRef RangeTest MethodAnalysis TimePerformed AtPathologist Signature Rbwxkfk173(H)74 - 99 mg/dL12/16/2024 9:39 AM EDTFAIRVIEW LABORATORYComment: The [place] Diabetes Association (ADA) provides guidance for cutoff [...] Standards of Medical Care in Diabetes 2016, [place] [employer]. Diabetes Care. 2016.39(Suppl 1). NFT441 - 21 mg/dL12/16/2024 9:39 AM EDTFAIRVIEW LABORATORYCreatinine1.01(H)0.58 - 0.96 mg/dL12/16/2024 9:39 AM EDTFAIRVIEW [id number] - 144 mmol/L 12/16/2024 9:39 AM EDTFAIRVIEW LABORATORYPotassium3.83.7 - 5.1 mmol/L12/16/2024 9:39 AM EDTFAIRVIEW FQJKOPTIXXBbrcymgv122(H)98 - 107 mmol/L12/16/2024 9:39 AM EDTFAIRVIEW XVEYNVQQPZVH516(L)22 - 30 mmol/L12/16/2024 9:39 AM EDTFAIRVIEW LABORATORYAnion Jik014 - 15 mmol/L12/16/2024 9:39 AM EDTFAIRVIEW LABORATORY Calcium, Total8.88.5 - 10.2 mg/dL12/16/2024 9:39 AM EDTFAIRVIEW LABORATORY Estimated Glomerular Filtration Rate73>=60 mL/min/1.73m 12/16/2024 9:39 AM EDTFAIRVIEW LABORATORYComment:Estimated Glomerular Filtration Rate (eGFR) is calculated using [...] Method / VolumeCollection TimeReceived TimeBloodBLOOD SPECIMEN / Unknown Venipuncture / [id number]/16/2024 8:18 AM EDT12/16/2024 9:09 AM EDT Narrative Authorizing ProviderResult TypeResult StatusTheresa Gerardo RICHARDS-CLABORATORYFinal ResultPerforming OrganizationAddressCity/State/ZIP CodePhone Number [facility] [id number] [place] [address], * CTA NECK W IVCON (12/16/2024 2:46 AM EDT)Anatomical RegionLateralityModality NeckComputed TomographySpecimen (Source)Anatomical Location / Laterality Collection Method / VolumeCollection TimeReceived Time12/16/2024 2:46 AM EDT Impressions 12/16/2024 3:24 AM EDT IMPRESSION: No large vessel occlusion, evidence of aneurysm, dissection, or venous sinus thrombosis of the opacified sinuses. Arterial blood flow was measured to detect acute large vessel occlusion by computer aided detection software: Not Performed. Concordance between software and imaging review: Not Applicable. Brusher Hand: PSCB ?? Transcribe Date/Time: Dec ??2024 ??3:07A Dictated by : ABILIO MORENO MD This examination was interpreted and the report reviewed and electronically signed by: ABILIO MORENO MD on Dec ??2024 ??3:22AM ??EST Narrative 12/16/2024 3:24 AM EDT * * *Final Report* * * DATE OF EXAM: Dec ??2024 ??2:46AM ?? FVC ?? 0024 ??- ??CTA NECK W IVCON ??/ PROCEDURE REASON: Headache, papilledema ? * * * * Physician Interpretation * * * * EXAMINATION: ??CTA NECK W IVCON, CTA HEAD W IVCON HISTORY: TECHNIQUE: ?? Spiral high resolution axial images were obtained through the head, neck and superior mediastinum following bolus administration of intravenous contrast for CT angiography. ? 3D maximum intensity projection images were created, reviewed and archived . MQ: ??CTAHN_4 Contrast: ??80 mL Omnipaque [address] Radiation dose: Integrated Dose-Length Product (DLP) for this visit = ?? 593 mGy*cm. CT Dose Reduction Employed: Automated exposure control (AEC) COMPARISON: None. RESULT: BRAIN: Evaluation of the individual slices of the CTA demonstrates no evidence of an acute stroke. ??ASPECT Score = 10 Hemorrhage: No clear evidence of acute intracranial hemorrhage within the constraints of this contrast enhanced acquisition. ?? ECASS hemorrhagic transformation score: Not Applicable NECK: Soft tissues: ?? The soft tissue planes are maintained throughout. ??No evidence of a soft tissue mass in the neck or superior mediastinum. ??No significant lymphadenopathy is seen. Spine: ??Alignment is normal. ??No significant degenerative changes are present. Lung apices: ?? The visualized lung apices are clear. CT ARTERIOGRAM: Extracranial Circulation: Aortic Arch: There is a normal branching pattern from the aortic arch. ?? There is no significant stenosis in the proximal brachiocephalic vessels. Carotid Stenosis: Right Common: ??No significant stenosis. Right Internal Carotid ??Plaque: ??No significant plaque formation. Right Internal Carotid Stenosis (% by NASCET Criteria): ??0 Left Common: ??No significant stenosis. Left Internal Carotid Plaque: ??No significant plaque formation. Left Internal Carotid Stenosis (% by NASCET Criteria): ??0 Cervical Vertebral Arteries: Patency: ??Bilateral Dominance: ??Right No abrupt short segment caliber change or internal filling defect on CTA neck to suggest dissection. Intracranial Circulation: No large vessel occlusion or significant short segment stenosis of the proximal [place]. ??No outpouching to suggest aneurysm. ??No cutoff of the proximal anterior circulation second segments, proximal FIRE SUPERVISOR, or arteries of cerebellum. No filling defect of the opacified dural venous sinuses to suggest thrombus. Suggestion of incidental partially empty sella. Consumer Loan Processor (topogram) images: Procedure Note Provider, [facility] - 12/16/2024 * * *Final Report* * * DATE OF EXAM: Dec 16 2024 2:46AM FVC 0024 - CTA NECK W IVCON / PROCEDURE REASON: Headache, papilledema * * * * Physician Interpretation * * * * EXAMINATION: CTA NECK W IVCON, CTA HEAD W IVCON HISTORY: TECHNIQUE: Spiral high resolution axial images were obtained through the head, neck and superior mediastinum following bolus administration of intravenous contrast for CT angiography. 3D maximum intensity projection images were created, reviewed and archived . MQ: CTAHN_4 Contrast: 80 mL Omnipaque [address] Radiation dose: Integrated Dose-Length Product (DLP) for this visit = 593 mGy*cm. CT Dose Reduction Employed: Automated exposure control (AEC) COMPARISON: None. RESULT: BRAIN: Evaluation of the individual slices of the CTA demonstrates no evidence of an acute stroke. ASPECT Score = 10 Hemorrhage: No clear evidence of acute intracranial hemorrhage within the constraints of this contrast enhanced acquisition. ECASS hemorrhagic transformation score: Not Applicable NECK: Soft tissues: The soft tissue planes are maintained throughout. No evidence of a soft tissue mass in the neck or superior mediastinum. No significant lymphadenopathy is seen. Spine: Alignment is normal. No significant degenerative changes are present. Lung apices: The visualized lung apices are clear. CT ARTERIOGRAM: Extracranial Circulation: Aortic Arch: There is a normal branching pattern from the aortic arch. There is no significant stenosis in the proximal brachiocephalicvessels. Carotid Stenosis: Right Common: No significant stenosis. Right Internal Carotid Plaque: No significant plaque formation. Right Internal Carotid Stenosis (% by NASCET Criteria): 0 Left Common: No significant stenosis. Left Internal Carotid Plaque: No significant plaque formation. Left Internal Carotid Stenosis (% by NASCET Criteria): 0 Cervical Vertebral Arteries: Patency: Bilateral Dominance: Right No abrupt short segment caliber change or internal filling defect on CTA neck to suggest dissection. Intracranial Circulation: No large vessel occlusion or significant short segment stenosis of the proximal [place]. No outpouching to suggest aneurysm. No cutoff of the proximal anterior circulation second segments, proximal FIRE SUPERVISOR, or arteries of cerebellum. No filling defect of the opacified dural venous sinuses to suggest thrombus. Suggestion of incidental partially empty sella. Consumer Loan Processor (topogram) images: IMPRESSION IMPRESSION: No large vessel occlusion, evidence of aneurysm, dissection, or venous sinus thrombosis of the opacified sinuses. Arterial blood flow was measured to detect acute large vessel occlusion by computer aided detection software: Not Performed. Concordance between software and imaging review: Not Applicable. Brusher Hand: ANA Transcribe Date/Time: Dec 16 2024 3:07A Dictated by : ABILIO MORENO MD This examination was interpreted and the report reviewed and electronically signed by: ABILIO MORENO MD on Dec 16 2024 3:22AM EST Authorizing ProviderResult TypeResult StatusAlyssa Dariel Marley CW-PRS-XLCNDjkum Result * CTA HEAD W IVCON (12/16/2024 2:46 AM EDT)Anatomical RegionLateralityModality HeadComputed TomographySpecimen (Source)Anatomical Location / Laterality Collection Method / VolumeCollection TimeReceived Time12/16/2024 2:46 AM EDT Impressions 12/16/2024 3:24 AM EDT IMPRESSION: No large vessel occlusion, evidence of aneurysm, dissection, or venous sinus thrombosis of the opacified sinuses. Arterial blood flow was measured to detect acute large vessel occlusion by computer aided detection software: Not Performed. Concordance between software and imaging review: Not Applicable. Brusher Hand: ANA ?? Transcribe Date/Time: Dec ??2024 ??3:07A Dictated by : ABILIO MORENO MD This examination was interpreted and the report reviewed and electronically signed by: ABILIO MORENO MD on Dec ??2024 ??3:22AM ??EST Narrative 12/16/2024 3:24 AM EDT * * *Final Report* * * DATE OF EXAM: Dec ??2024 ??2:46AM ?? FVC ?? 0022 ??- ??CTA HEAD W IVCON ??/ PROCEDURE REASON: Mass, lump or swelling, neck ? * * * * Physician Interpretation * * * * EXAMINATION: ??CTA NECK W IVCON, CTA HEAD W IVCON HISTORY: TECHNIQUE: ?? Spiral high resolution axial images were obtained through the head, neck and superior mediastinum following bolus administration of intravenous contrast for CT angiography. ? 3D maximum intensity projection images were created, reviewed and archived . MQ: ??CTAHN_4 Contrast: ??80 mL Omnipaque [address] Radiation dose: Integrated Dose-Length Product (DLP) for this visit = ?? 593 mGy*cm. CT Dose Reduction Employed: Automated exposure control (AEC) COMPARISON: None. RESULT: BRAIN: Evaluation of the individual slices of the CTA demonstrates no evidence of an acute stroke. ??ASPECT Score = 10 Hemorrhage: No clear evidence of acute intracranial hemorrhage within the constraints of this contrast enhanced acquisition. ?? ECASS hemorrhagic transformation score: Not Applicable NECK: Soft tissues: ?? The soft tissue planes are maintained throughout. ??No evidence of a soft tissue mass in the neck or superior mediastinum. ??No significant lymphadenopathy is seen. Spine: ??Alignment is normal. ??No significant degenerative changes are present. Lung apices: ?? The visualized lung apices are clear. CT ARTERIOGRAM: Extracranial Circulation: Aortic Arch: There is a normal branching pattern from the aortic arch. ?? There is no significant stenosis in the proximal brachiocephalic vessels. Carotid Stenosis: Right Common: ??No significant stenosis. Right Internal Carotid ??Plaque: ??No significant plaque formation. Right Internal Carotid Stenosis (% by NASCET Criteria): ??0 Left Common: ??No significant stenosis. Left Internal Carotid Plaque: ??No significant plaque formation. Left Internal Carotid Stenosis (% by NASCET Criteria): ??0 Cervical Vertebral Arteries: Patency: ??Bilateral Dominance: ??Right No abrupt short segment caliber change or internal filling defect on CTA neck to suggest dissection. Intracranial Circulation: No large vessel occlusion or significant short segment stenosis of the proximal [place]. ??No outpouching to suggest aneurysm. ??No cutoff of the proximal anterior circulation second segments, proximal FIRE SUPERVISOR, or arteries of cerebellum. No filling defect of the opacified dural venous sinuses to suggest thrombus. Suggestion of incidental partially empty sella. Consumer Loan Processor (topogram) images: Procedure Note Provider, [facility] - 12/16/2024 * * *Final Report* * * DATE OF EXAM: Dec 16 2024 2:46AM FVC 0022 - CTA HEAD W IVCON / PROCEDURE REASON: Mass, lump or swelling, neck * * * * Physician Interpretation * * * * EXAMINATION: CTA NECK W IVCON, CTA HEAD W IVCON HISTORY: TECHNIQUE: Spiral high resolution axial images were obtained through the head, neck and superior mediastinum following bolus administration of intravenous contrast for CT angiography. 3D maximum intensity projection images were created, reviewed and archived . MQ: CTAHN_4 Contrast: 80 mL Omnipaque [address] Radiation dose: Integrated Dose-Length Product (DLP) for this visit = 593 mGy*cm. CT Dose Reduction Employed: Automated exposure control (AEC) COMPARISON: None. RESULT: BRAIN: Evaluation of the individual slices of the CTA demonstrates no evidence of an acute stroke. ASPECT Score = 10 Hemorrhage: No clear evidence of acute intracranial hemorrhage within the constraints of this contrast enhanced acquisition. ECASS hemorrhagic transformation score: Not Applicable NECK: Soft tissues: The soft tissue planes are maintained throughout. No evidence of a soft tissue mass in the neck or superior mediastinum. No significant lymphadenopathy is seen. Spine: Alignment is normal. No significant degenerative changes are present. Lung apices: The visualized lung apices are clear. CT ARTERIOGRAM: Extracranial Circulation: Aortic Arch: There is a normal branching pattern from the aortic arch. There is no significant stenosis in the proximal brachiocephalicvessels. Carotid Stenosis: Right Common: No significant stenosis. Right Internal Carotid Plaque: No significant plaque formation. Right Internal Carotid Stenosis (% by NASCET Criteria): 0 Left Common: No significant stenosis. Left Internal Carotid Plaque: No significant plaque formation. Left Internal Carotid Stenosis (% by NASCET Criteria): 0 Cervical Vertebral Arteries: Patency: Bilateral Dominance: Right No abrupt short segment caliber change or internal filling defect on CTA neck to suggest dissection. Intracranial Circulation: No large vessel occlusion or significant short segment stenosis of the proximal [place]. No outpouching to suggest aneurysm. No cutoff of the proximal anterior circulation second segments, proximal FIRE SUPERVISOR, or arteries of cerebellum. No filling defect of the opacified dural venous sinuses to suggest thrombus. Suggestion of incidental partially empty sella. Consumer Loan Processor (topogram) images: IMPRESSION IMPRESSION: No large vessel occlusion, evidence of aneurysm, dissection, or venous sinus thrombosis of the opacified sinuses. Arterial blood flow was measured to detect acute large vessel occlusion by computer aided detection software: Not Performed. Concordance between software and imaging review: Not Applicable. Brusher Hand: ANA Transcribe Date/Time: Dec 16 2024 3:07A Dictated by : ABILIO MORENO MD This examination was interpreted and the report reviewed and electronically signed by: ABILIO MORENO MD on Dec 16 2024 3:22AM EST Authorizing ProviderResult TypeResult StatusAlyssa Dariel Marley UW-VKL-BASZIlggz Result * (ABNORMAL) URINALYSIS (WITH MICROSCOPIC) WITH CULTURE IF INDICATED (12/15/2024 7:42 PM EDT)ComponentValueRef RangeTest MethodAnalysis TimePerformed At Pathologist SignatureColorLight HxlpuhDoqxxn95/07/2025 8:48 PM EDTFAIRVIEW LABORATORYClarityTurbid(A)Clear12/15/2024 8:48 PM EDTFAIRVIEW LABORATORY Glucose, UrineNegativeTrace, Hmgsimhg73/07/2025 8:48 PM EDTFAIRVIEW LABORATORY Bilirubin, BflwyYytazvuxGrwpgcrf92/07/2025 8:48 PM EDTFAIRVIEW LABORATORY Ketones, UrineNegativeNegative, Trace12/15/2024 8:48 PM EDTFAIRVIEW LABORATORY Specific [place], Ur1.0131.005 - 1.9139712/15/2024 8:48 PM EDTFAIRVIEW LABORATORYHemoglobin/Blood,UrNegativeNegative, Trace12/15/2024 8:48 PM EDT [facility]ORATORYpH, Urine7.05.0 - 8.008 8:48 PM EDTFAIRVIEW LABORATORYProtein, UrineNegativeTrace, Ywqlfugu50/07/2025 8:48 PM EDTFAIRVIEW ZLECTHSQEJFrseenbrknjtQvauraNpkkdt02/07/2025 8:48 PM EDTFAIRVIEW LABORATORY PpttubrqIcbigwwsTgylbjgp06/07/2025 8:48 PM EDTFAIRVIEW LABORATORYLeuk Esterase NegativeNegative, 25 Deja/uL12/15/2024 8:48 PM EDTFAIRVIEW LABORATORYWBC, Urine 0-5 /HPF0-5 /HPF12/15/2024 8:48 PM EDTFAIRVIEW LABORATORYRBC, Urine0-3 /HPF0-3 /HPF12/15/2024 8:48 PM EDTFAIRVIEW LABORATORYSquamous Epithelial CellsFew/HPF 12/15/2024 8:48 PM EDTFAIRVIEW LABORATORYSpecimen (Source)Anatomical Location / LateralityCollection Method / VolumeCollection TimeReceived TimeUrineMID- STREAM URINE SPECIMEN / UnknownNon Blood / Wstahnd2012/15/2024 7:42 PM EDT 12/15/2024 8:17 PM EDT Narrative Authorizing ProviderResult TypeResult StatusChristopher Janny Chinchilla DOLABORATORY Final ResultPerforming OrganizationAddressty/State/ZIP CodePhone Number [facility] [phone] [place] [address], * BETA HCG, QUANTITATIVE FOR ED (12/15/2024 7:36 PM EDT)ComponentValueRef Range Test MethodAnalysis TimePerformed AtPathologist SignatureBeta HCG, Quantitative For ED Use2.1<5.0 mIU/mL12/15/2024 8:59 PM EDTFAIRVIEW LABORATORY Comment:NegativeSpecimen (Source)Anatomical Location / LateralityCollection Method / VolumeCollection TimeReceived TimeBloodBLOOD SPECIMEN / Unknown Venipuncture / Sfddrxs9312/15/2024 7:36 PM EDT12/15/2024 8:16 PM EDT Narrative Authorizing ProviderResult TypeResult StatusChristopher P Amor DOLABORATORY Final ResultPerforming OrganizationAddressty/State/ZIP CodePhone Number [facility] [address] [place] [address], * ACETYLCHOLINE REC BLOCKING AB (12/13/2024 9:36 AM EDT)ComponentValueRef Range Test MethodAnalysis TimePerformed AtPathologist SignatureAcetylcholine Blocking, ZuhtFbgegrzsSvksdufp02/12/2025 9:29 AM [facility] LABComment:Anti-acetylcholine receptor blocking antibody test is used as an aid in diagnosis of myasthenia gravis. A negative result cannot exclude myasthenia gravis. Clinical correlation is required.Acetylcholine Receptor Blocking<13<21 % Fecjcbpeqg49/12/2025 9:29 AM [facility] LABSpecimen (Source)Anatomical Location / LateralityCollection Method / Volume Collection TimeReceived TimeBloodBLOOD SPECIMEN / UnknownVenipuncture / Grdjgpb5512/13/2024 9:36 AM EDT12/13/2024 9:36 AM EDT Narrative Authorizing ProviderResult TypeResult StatusDecristina BANGURAORATORYFinal Result Performing OrganizationAddressCity/State/ZIP CodePhone Number [facility] [address] [phone], * ACETYLCHOLINE REC BINDING AB (12/13/2024 9:36 AM EDT)ComponentValueRef Range Test MethodAnalysis TimePerformed AtPathologist SignatureAcetylcholine, Binding, YaloCxeaddfaVrsejbwg23/07/2025 12:45 PM [facility] LABComment:Anti-acetylcholine receptor binding antibody test is used as an aid in diagnosis of myasthenia gravis. A negative result cannot exclude myasthenia gravis. Clinical correlation is required.Acetylcholine Receptor Binding<0.02<0.21 nmol/L12/15/2024 12:45 PM [facility] LABSpecimen (Source)Anatomical Location / LateralityCollection Method / Volume Collection TimeReceived TimeBloodBLOOD SPECIMEN / UnknownVenipuncture / Lswbzia0712/13/2024 9:36 AM EDT12/13/2024 9:36 AM EDT Narrative Authorizing ProviderResult TypeResult StatusDecristina BANGURAORATORYFinal Result Performing OrganizationAddressCity/State/ZIP CodePhone Number [facility] [address] [facility] [address] [address], [place] * ACETYLCHOLINE RECEPTOR MODULATING ANTIBODY (12/13/2024 9:36 AM EDT)Component ValueRef RangeTest MethodAnalysis TimePerformed AtPathologist Signature Acetylcholine Recept/Modulating0<=45 %12/16/2024 1:36 PM EDTAMINERS' [facility] Comment: INTERPRETIVE INFORMATION: Acetylcholine Modulating Ab ??Negative .......... ??0-45 percent modulating ??Positive .......... ??46 percent or greater modulating Approximately 85-90 percent of patients with myasthenia gravis (MG) express antibodies to the acetylcholine receptor (AChR), which can be divided into binding, blocking, and modulating antibodies. Binding antibody can activate complement and lead to loss of AChR. Blocking antibody may impair binding of acetylcholine to the receptor, leading to poor muscle contraction. Modulating antibody causes receptor endocytosis resulting in loss of AChR expression, which correlates most closely with clinical severity of disease. Approximately 10-15 percent of individuals with confirmed myasthenia gravis have no measurable binding, blocking, or modulating antibodies. This test was developed and its performance characteristics determined by [facility]. It has not been cleared or approved by the [place] Food and Drug Administration. This test was performed in a CLIA certified laboratory and is intended for clinical purposes. Performed By: [facility] [address] [place] [address] Russian Teacher: Haseeb Schwartz MD, PhD [place] Number: [id number] Specimen (Source)Anatomical Location / LateralityCollection Method / Volume Collection TimeReceived TimeBloodBLOOD SPECIMEN / UnknownVenipuncture / Unknown 12/13/2024 9:36 AM EDT12/13/2024 9:36 AM EDT Narrative Authorizing ProviderResult TypeResult StatusDevoángel Sherwood MDLABORATORYFinal Result Performing OrganizationAddressCity/State/ZIP CodePhone Number [facility] [address] [place] [address] * EMG(NEURO/NI) (12/10/2024 11:10 AM EDT)Specimen (Source)Anatomical Location / LateralityCollection Method / VolumeCollection TimeReceived Time12/10/2024 11:10 AM EDT Narrative [facility] - 12/10/2024 12:30 PM EDT Results can be seen in attached scanned documents. If you are a patient reviewing this test result, call the doctor who ordered the test with any questions. Authorizing ProviderResult TypeResult StatusNiccristina Gonsalez MDNEUROLOGY Final ResultPerforming OrganizationAddressCity/State/ZIP CodePhone Number [facility] * COMPLETE BLOOD COUNT (12/02/2024 10:11 AM EDT)ComponentValueRef RangeTest MethodAnalysis TimePerformed AtPathologist SignatureWBC7.253.70 - 11.00 k/uL 12/02/2024 10:14 AM [facility] LABRBC4.323.90 - 5.20 m/uL12/02/2024 10:14 AM [facility] YWRVapntecqjh94.8 11.5 - 15.5 g/dL12/02/2024 10:14 AM [facility] LAB Vgsfiuraqc75.136.0 - 46.0 %12/02/2024 10:14 AM [facility] SMEXKS39.580.0 - 100.0 fL12/02/2024 10:14 AM [facility] IRJFIW75.926.0 - 34.0 pg12/02/2024 10:14 AM [facility] WHMTHZB86.330.5 - 36.0 g/dL12/02/2024 10:14 AM EDT [facility] LABRDW-CV12.211.5 - 15.0 %12/02/2024 10:14 AM [facility] LABPlatelet Scxne977382 - 400 k/uL 12/02/2024 10:14 AM [facility] LABMPV9.49.0 - 12.7 fL12/02/2024 10:14 AM [facility] LABAbsolute nRBC <0.01<0.01 k/uL12/02/2024 10:14 AM [facility] Specimen (Source)Anatomical Location / LateralityCollection Method / Volume Collection TimeReceived TimeBloodBLOOD SPECIMEN / UnknownVenipuncture / Wemewxn4112/02/2024 10:11 AM EDT12/02/2024 10:11 AM EDT Narrative Authorizing ProviderResult TypeResult StatusFaith RICHARDS-CLABORATORYFinal ResultPerforming OrganizationAddressCity/State/ZIP CodePhone Number [facility] [address] [place] [address] from Last 3 Months Insurance Advance Directives * Full Code (Latest Code Status on File) Date ActivatedDate VeevfvxprfxEqwgewlr10/20/2025 8:10 03/01/2025 7:12 PM QuestionAnswerCommentsFull Code Order Discussed With:* Patient * Full Code Date ActivatedDate InactivatedComments12/16/2024 9:59 AM12/17/2024 1:35 PMQuestion AnswerCommentsFull Code Order Discussed With:* Patient Care Teams Team MemberRelationshipSpecialtyStart DateEnd Date Yoan Morel MD [address] [place] [address] PCP - GeneralFamily Medicine06/06/24 Tamara Sherwood MD [address] [place] [address] ReferringOphthalmology12/14/24
--- OUTSIDE RECORDS SUMMARY | 2025-03-03 12:50 | XMS_ITS | Encounter Summary ---
Author Organization [facility] Address [facility] [place] [address] Care Team Providers Care Appliquer Name Role Phone Yoan Morel MD Primary Care Provider + Lloyd Sherwood MD Unavailable Source Comments In the event this information is protected by the Federal Confidentiality of Alcohol and Drug AbusePatient Records regulations: The Federal rules restrict any use of the information to criminally investigate or prosecute any alcohol or drug abuse patient.[facility] Encounter Details DateTypeDepartmentCare Team (Latest Contact Info)Ryjrqjfvoas81/13/2025Telephone Ophthalmology [address] [phone] Lloyd Sherwood MD [address] [place] [address] Social History Tobacco UseTypesPacks/DayYears UsedDateSmoking Tobacco: Every DayCigarettes Smokeless Tobacco: Never Comments:1 pack every 2 days Alcohol UseStandard Drinks/WeekCommentsNot Currently0 (1 standard drink = 0.6 oz pure alcohol)[facility] UtilitiesAnswerDate RecordedIn the past 12 months has the electric, gas, oil, or water company threatened to shut off services in your home?No12/16/2024PHQ-2AnswerDate RecordedPHQ-2 zarlp293Hunger Vital Sign AnswerDate RecordedWithin the past 12 [...] were you homeless or living in a mcfp (including now)?No12/16/2024rea Deprivation IndexAnswerDate RecordedNational Score (1-100), lower number is lower risk82 09/29/2023State Score (1-10), lower number is lower brmx001ata from: https://www.neighborhoodatlas.medicine.[facility].edu/. Last address used for dprbrwctpkp[address]4CommentsNoSex and Gender Information ValueDate RecordedSex Assigned at VbzffOtardh65/23/2023 3:16 PM ESTLegal Sex Mbtobh4607/03/2022 3:13 PM ESTGender JynwhrrhJtwqml25/23/2023 3:16 PM ESTSexual OrientationNot on filedocumented as of this encounter Functional Status * Are you deaf or do you have serious difficulty hearing?AnswerDate of NvgecfpotgGvxreaHh19/09/2025 10:21 AM Asher Luevano RN * Are you blind or do you have serious difficulty seeing, even when wearing glasses?AnswerDate of TmgenragtuOgcyoySt75/09/2025 10:21 AM Asher Luevano RN * Do you have serious difficulty walking or climbing stairs?AnswerDate of WakebkmdrlGtjokcOk50/09/2025 10:21 AM Asher Luevano RN * Do you have difficulty dressing or bathing?AnswerDate of AssessmentAuthorNo 12/17/2024 10:21 AM Asher Luevano RN * Because of a physical, mental, or emotional condition, do you have difficulty doing errands alone such as visiting a doctor's office or shopping?AnswerDate of RneexjttfuUkkuzuQi43/09/2025 10:21 AM Asher Luevano RN documented as of this encounter Mental Status * Because of a physical, mental, or emotional condition, do you have serious difficulty concentrating, remembering, or making decisions?AnswerEntry Date ZtfyxdNo99/09/2025 10:21 AM Asher Luevano RN documented in this encounter Miscellaneous Notes * Telephone Encounter - Jassi Shasha, Vero - 02/20/2025 11:54 AM EDT Patient just called and her employer denied her case again. She said that they are still trying to say that the time off from work is due to her IIH and not the new diagnosis. Updated and signed letter along with office notes was forwarded to [employer]. Patient said that they told her they needed more information? She said she provided them with everything they requested and asked for. I asked did they want another doctor's note she said she is not sure but she said maybe another letter could state that although she is in remission with IIH that the new symptoms are mimicking the same of herpreexisting condition. I asked her to provide me a different symptom that stands out and she says that she is not having visual symptoms like with the IIH just the pain and pressure at the back of her head and it is not normal headache. I will reach out to [employer] to see what else they need fromus regarding the patient. documented in this encounter Plan of Treatment DateTypeDepartmentCare Team (Latest Contact Info)Kufvhnnnara35/06/2025 9:30 AM ESTOffice Visit [facility] [place] [address] [place] [address] Nati Noble PA-C [address] [place] [address] Next Available New Bdfnqjn8403/23/2025 8:40 AM ESTOffice Visit Orthopaedics [address] [place] [address] Linda Malik PA-C [address] [place] [address] Dx: Carpal tunnel syndrome, bilateral [G56.03]04/18/2025 7:30 AM ESTOffice Visit OPHT Ophthalmology [address] [address] Lloyd Sherwood MD [address] [place] [address] Please set the patient up for a 2 month virtual visit for history of IIH 04/24/2025 2:00 PM ESTOffice Visit Functional Medicine [address] [address] Janina Lock APRN.BOILER INSPECTOR [address] [address] Multiple symptoms, lifestyle darkzregxh67/17/2025 1:30 PM ESTOffice Visit Allergy [address] [place] [address] [phone] Joyce Murguia MD [address] [place] [phone] Follow up06/15/2025 1:45 PM ESTOffice Visit [facility] [address] [address] [place] [address] [place] [address] Next Available New Patientdocumented as of this encounter Visit Diagnoses Not on filedocumented in this encounter Care Teams Team MemberRelationshipSpecialtyStart DateEnd Date Yoan Morel MD [address] [place] [address] PCP - GeneralFamily Medicine06/06/24 Lloyd Sherwood MD [address] [place] [address] ReferringOphthalmology12/14/24documented as of this encounter
--- OUTSIDE RECORDS SUMMARY | 2025-03-03 12:50 | XMS_ITS | Encounter Summary ---
Author Organization [facility] Address [address] [place] [address] Care Team Providers Care Through Freight Engineer Name Role Phone Yoan Morel MD Primary Care Provider + Lloyd Sherwood MD Unavailable Source Comments In the event this information is protected by the Federal Confidentiality of Alcohol and Drug AbusePatient Records regulations: The Federal rules restrict any use of the information to criminally investigate or prosecute any alcohol or drug abuse patient.[facility] Encounter Details DateTypeDepartmentCare Team (Latest Contact Info)Erslxjsitkn98/18/2025 Get Medical Advice Ophthalmology [address] [place] [address] Kuldip Harris, OD [address] [place] [address] Just for the record! Social History Tobacco UseTypesPacks/DayYears UsedDateSmoking Tobacco: Every DayCigarettes Smokeless Tobacco: Never Comments:1 pack every 2 days Alcohol UseStandard Drinks/WeekCommentsNot Currently0 (1 standard drink = 0.6 oz pure alcohol)[facility] UtilitiesAnswerDate RecordedIn the past 12 months has the electric, gas, oil, or water company threatened to shut off services in your home?No12/16/2024PHQ-2AnswerDate RecordedPHQ-2 bkcyh710Hunger Vital Sign AnswerDate RecordedWithin the past 12 [...] were you homeless or living in a skilled nursing (including now)?No12/16/2024rea Deprivation IndexAnswerDate RecordedNational Score (1-100), lower number is lower risk82 09/29/2023State Score (1-10), lower number is lower wxrh611ata from: https://www.neighborhoodatlas.medicine.[facility].edu/. Last address used for g[address]/29/2023CommentsNoSex and Gender Information ValueDate RecordedSex Assigned at DwnyeHmnzbf47/23/2023 3:16 PM ESTLegal Sex Axzhyf4107/03/2022 3:13 PM ESTGender MimdjdsnWylrwy95/23/2023 3:16 PM ESTSexual OrientationNot on filedocumented as of this encounter Functional Status * Are you deaf or do you have serious difficulty hearing?AnswerDate of LkbzwvgfgsWrbelcKi45/09/2025 10:21 AM Asher Luevano RN * Are you blind or do you have serious difficulty seeing, even when wearing glasses?AnswerDate of KbodqgeqxcLfiyncPy24/09/2025 10:21 AM Asher Luevano RN * Do you have serious difficulty walking or climbing stairs?AnswerDate of PwsgxxgywoFzdxbeEj82/09/2025 10:21 AM Asher Luevano RN * Do you have difficulty dressing or bathing?AnswerDate of AssessmentAuthorNo 12/17/2024 10:21 AM Asher Luevano RN * Because of a physical, mental, or emotional condition, do you have difficulty doing errands alone such as visiting a doctor's office or shopping?AnswerDate of VltwqtmlejTjpyqvFy02/09/2025 10:21 AM Asher Luevano RN documented as of this encounter Mental Status * Because of a physical, mental, or emotional condition, do you have serious difficulty concentrating, remembering, or making decisions?AnswerEntry Date WihhghGv08/09/2025 10:21 AM Asher Luevano RN documented in this encounter Plan of Treatment DateTypeDepartmentCare Team (Latest Contact Info)Lcccgcwciqx69/06/2025 9:30 AM ESTOffice Visit [facility] [address] [place] [address] Nati Noble PA-C [address] [place] [address] Next Available New Owdfrso6603/23/2025 8:40 AM ESTOffice Visit Orthopaedics [address] [place] [address] Linda Malik PA-C [address] [place] [address] Dx: Carpal tunnel syndrome, bilateral [G56.03]04/18/2025 7:30 AM ESTOffice Visit OPHT Ophthalmology [address] [address] Lloyd Sherwood MD [address] [place] [address] Please set the patient up for a 2 month virtual visit for history of IIH 04/24/2025 2:00 PM ESTOffice Visit Functional Medicine [address] [address] Janina Lock APRN.BOARD OF EDUCATION SECRETARY [address] [address] Multiple symptoms, lifestyle eqkagmjjyp96/17/2025 1:30 PM ESTOffice Visit Allergy [address] [place] [phone] Joyce Murguia MD [facility]2 [place] [address] Follow up06/15/2025 1:45 PM ESTOffice Visit [facility] [address] [place] [address] [place] [address] [place] [address] Next Available New Patientdocumented as of this encounter Visit Diagnoses Not on filedocumented in this encounter Care Teams Team MemberRelationshipSpecialtyStart DateEnd Date Yoan Morel MD [address] [place] [address] PCP - GeneralFamily Medicine06/06/24 Lloyd Sherwood MD [address] [place] [address] ReferringOphthalmology12/14/24documented as of this encounter
--- OUTSIDE RECORDS SUMMARY | 2025-03-03 12:50 | XMS_ITS | Encounter Summary ---
Author Organization [facility] Address [facility] [place] [address] Care Team Providers Care Vice President Of Human Resources Name Role Phone Yoan Morel MD Primary Care Provider +-1 Lloyd Sherwood MD Unavailable Source Comments In the event this information is protected by the Federal Confidentiality of Alcohol and Drug AbusePatient Records regulations: The Federal rules restrict any use of the information to criminally investigate or prosecute any alcohol or drug abuse patient.[facility] Encounter Details DateTypeDepartmentCare Team (Latest Contact Info)Cxoxrvmgwuo90/17/2025Travel Social History Tobacco UseTypesPacks/DayYears UsedDateSmoking Tobacco: Every DayCigarettes Smokeless Tobacco: Never Comments:1 pack every 2 days Alcohol UseStandard Drinks/WeekCommentsNot Currently0 (1 standard drink = 0.6 oz pure alcohol)[facility] UtilitiesAnswerDate RecordedIn the past 12 months has the electric, gas, oil, or water company threatened to shut off services in your home?No12/16/2024PHQ-2AnswerDate RecordedPHQ-2 ueksc617Hunger Vital Sign AnswerDate RecordedWithin the past 12 [...] 09/29/2023State Score (1-10), lower number is lower qgwh193ata from: https://www.neighborhoodatlas.medicine.[facility].edu/. Last address used for y[address]4CommentsNoSex and Gender Information ValueDate RecordedSex Assigned at GsbrhZsfenu52/23/2023 3:16 PM ESTLegal Sex Vewujj4707/03/2022 3:13 PM ESTGender KxdekjdiFtutih32/23/2023 3:16 PM ESTSexual OrientationNot on filedocumented as of this encounter Functional Status * Are you deaf or do you have serious difficulty hearing?AnswerDate of QzglivcdqrVobxuxZy29/09/2025 10:21 AM Asher Luevano RN * Are you blind or do you have serious difficulty seeing, even when wearing glasses?AnswerDate of JnwobxauqgBmkvokFm85/09/2025 10:21 AM Asher Luevano RN * Do you have serious difficulty walking or climbing stairs?AnswerDate of VyrwrrthkiXswmpuZk36/09/2025 10:21 AM Asher Luevano RN * Do you have difficulty dressing or bathing?AnswerDate of AssessmentAuthorNo 12/17/2024 10:21 AM Asher Luevano RN * Because of a physical, mental, or emotional condition, do you have difficulty doing errands alone such as visiting a doctor's office or shopping?AnswerDate of BsvpuxcleqXwfjmmYv60/09/2025 10:21 AM Asher Luevano RN documented as of this encounter Mental Status * Because of a physical, mental, or emotional condition, do you have serious difficulty concentrating, remembering, or making decisions?AnswerEntry Date EwxvaaFz82/09/2025 10:21 AM Asher Luevano RN documented in this encounter Plan of Treatment DateTypeDepartmentCare Team (Latest Contact Info)Vxodvgrvdfm22/06/2025 9:30 AM ESTOffice [facility] [address] [place] [address] Nati Noble PA-C [address] [place] [address] Next Available New Fhyxnog4203/23/2025 8:40 AM ESTOffice Visit Orthopaedics [address] [place] [address] Linda Malik PA-C [address] [place] [address] Dx: Carpal tunnel syndrome, bilateral [G56.03]04/18/2025 7:30 AM ESTOffice Visit OPHT Ophthalmology [address] [address] Lloyd Sherwood MD [address] [place] [address] Please set the patient up for a 2 month virtual visit for history of IIH 04/24/2025 2:00 PM ESTOffice Visit Functional Medicine [address] [place] [address] Janina Lock APRN.CREDIT PORTFOLIO ADVISOR [address] [place] [address] [phone] Multiple symptoms, lifestyle pwckkeshtu77/17/2025 1:30 PM ESTOffice Visit Allergy 5[address] [place] [phone] Joyce Murguia MD [address] [place] [address] Follow up06/15/2025 1:45 PM ESTOffice Visit [facility] [address] [place] [address] [place] [address] [place], [place] [phone] Next Available New Patientdocumented as of this encounter Visit Diagnoses Not on filedocumented in this encounter Care Teams Team MemberRelationshipSpecialtyStart DateEnd Date Yoan Morel MD [address] [place] [address] PCP - GeneralFamily Medicine06/06/24 Lloyd Sherwood MD [address] [place], [place] [phone] ReferringOphthalmology12/14/24documented as of this encounter
--- OUTSIDE RECORDS SUMMARY | 2025-03-03 12:50 | XMS_ITS | Encounter Summary ---
Author Organization [facility] Address [facility] [place] [address] Care Team Providers Care Liquor Department Manager Name Role Phone Yoan Morel MD Primary Care Provider + Lloyd Sherwood MD Unavailable Source Comments In the event this information is protected by the Federal Confidentiality of Alcohol and Drug AbusePatient Records regulations: The Federal rules restrict any use of the information to criminally investigate or prosecute any alcohol or drug abuse patient.[facility] Encounter Details DateTypeDepartmentCare Team (Latest Contact Info)Gykszoaesga13/10/2025 Patient Msg Ophthalmology [address] [phone] Provider, [facility] Prudential Form and fax confirmation Social History Tobacco UseTypesPacks/DayYears UsedDateSmoking Tobacco: Every DayCigarettes Smokeless Tobacco: Never Comments:1 pack every 2 days Alcohol UseStandard Drinks/WeekCommentsNot Currently0 (1 standard drink = 0.6 oz pure alcohol)[facility] UtilitiesAnswerDate RecordedIn the past 12 months has the electric, gas, oil, or water company threatened to shut off services in your home?No12/16/2024PHQ-2AnswerDate RecordedPHQ-2 bgwpg813Hunger Vital Sign AnswerDate RecordedWithin the past 12 [...] were you homeless or living in a correction (including now)?No12/16/2024rea Deprivation IndexAnswerDate RecordedNational Score (1-100), lower number is lower risk82 09/29/2023State Score (1-10), lower number is lower gjdo1884Data from: https://www.neighborhoodatlas.medicine.[facility].edu/. Last address used for fvvkepxpsef[address]4CommentsNoSex and Gender Information ValueDate RecordedSex Assigned at GqczyFdswdy75/23/2023 3:16 PM ESTLegal Sex Xvyzrp1307/03/2022 3:13 PM ESTGender GqinqybnWoozlf72/23/2023 3:16 PM ESTSexual OrientationNot on filedocumented as of this encounter Functional Status * Are you deaf or do you have serious difficulty hearing?AnswerDate of MbqzwznpsdWvxkepXe03/09/2025 10:21 AM Asher Luevano RN * Are you blind or do you have serious difficulty seeing, even when wearing glasses?AnswerDate of RlhmfbrmehQvhwfbDy34/09/2025 10:21 AM Asher Luevano RN * Do you have serious difficulty walking or climbing stairs?AnswerDate of QbmcpwkydfAmmuohDe23/09/2025 10:21 AM Asher Luevano RN * Do you have difficulty dressing or bathing?AnswerDate of AssessmentAuthorNo 12/17/2024 10:21 AM Asher Luevano RN * Because of a physical, mental, or emotional condition, do you have difficulty doing errands alone such as visiting a doctor's office or shopping?AnswerDate of VkgimyqykzIbxzzuTr68/09/2025 10:21 AM Asher Luevano RN documented as of this encounter Mental Status * Because of a physical, mental, or emotional condition, do you have serious difficulty concentrating, remembering, or making decisions?AnswerEntry Date TkxsqvCr27/09/2025 10:21 AM Asher Luevano RN documented in this encounter Plan of Treatment DateTypeDepartmentCare Team (Latest Contact Info)Lmlvmvlnlxb93/06/2025 9:30 AM ESTOffice Visit [facility] [address] [place] [address] Nati Noble PA-C 7248 [place] [address] Next Available New Dykkkle4903/23/2025 8:40 AM ESTOffice Visit Orthopaedics [address] [place] [address] Linda Malik PA-C [address] [place] [address] Dx: Carpal tunnel syndrome, bilateral [G56.03]04/18/2025 7:30 AM ESTOffice Visit OPHT Ophthalmology [address] [address] Lloyd Sherwood MD [address] [place] [address] Please set the patient up for a 2 month virtual visit for history of IIH 04/24/2025 2:00 PM ESTOffice Visit Functional Medicine [address] [address] Janina Lock APRN.BENCH INSPECTOR [address] [place] [address] Multiple symptoms, lifestyle wpwhetpkhs49/17/2025 1:30 PM ESTOffice Visit Allergy [facility]2 [place] [phone] Joyce Murguia MD [address] [place], [place] [phone] Follow up06/15/2025 1:45 PM ESTOffice Visit [facility] [address] [place] [address] [place] [address] [place] [address] Next Available New Patientdocumented as of this encounter Visit Diagnoses Not on filedocumented in this encounter Care Teams Team MemberRelationshipSpecialtyStart DateEnd Yoan Morel MD [address] [place] [address] PCP - GeneralFamily Medicine06/06/24 Lloyd Sherwood MD [address] [place] [address] ReferringOphthalmology12/14/24documented as of this encounter
--- OUTSIDE RECORDS SUMMARY | 2025-03-03 12:51 | XMS_ITS | Encounter Summary ---
Author Organization [facility] Address [address] [place] [address] Care Team Providers Care Cook Chili Name Role Phone Yoan Morel MD Primary Care Provider + Lloyd Sherwood MD Unavailable Source Comments In the event this information is protected by the Federal Confidentiality of Alcohol and Drug AbusePatient Records regulations: The Federal rules restrict any use of the information to criminally investigate or prosecute any alcohol or drug abuse patient.[facility] Reason for Visit * ReasonCommentsPatient Question Encounter Details DateTypeDepartmentCare Team (Latest Contact Info)Jjavlyucjov03/20/2025Telephone Neurology [address] [place] [address] Alejandra Landrum DO [address] [place] [address] Patient Question Social History Tobacco UseTypesPacks/DayYears UsedDateSmoking Tobacco: Every DayCigarettes Smokeless Tobacco: Never Comments:1 pack every 2 days Alcohol UseStandard Drinks/WeekCommentsNot Currently0 (1 standard drink = 0.6 oz pure alcohol)[facility] UtilitiesAnswerDate RecordedIn the past 12 months has the electric, gas, oil, or water company threatened to shut off services in your home?No12/16/2024PHQ-2AnswerDate RecordedPHQ-2 wdwjl461Hunger Vital Sign AnswerDate RecordedWithin the past 12 [...] were you homeless or living in a chcf (including now)?No12/16/2024rea Deprivation IndexAnswerDate RecordedNational Score (1-100), lower number is lower risk82 09/29/2023State Score (1-10), lower number is lower fapb300ata from: https://www.neighborhoodatlas.medicine.[facility].edu/. Last address used for l[address]founr[address]09/[address]23CommentsNoSex and Gender Information ValueDate RecordedSex Assigned at KmhekLctufe36/23/2023 3:16 PM ESTLegal Sex Kgapfr0307/03/2022 3:13 PM ESTGender QiaunmmcMquthe59/23/2023 3:16 PM ESTSexual OrientationNot on filedocumented as of this encounter Functional Status * Are you deaf or do you have serious difficulty hearing?AnswerDate of IplurifimcRijmykYs90/09/2025 10:21 AM Asher Luevano RN * Are you blind or do you have serious difficulty seeing, even when wearing glasses?AnswerDate of RqqsbuxvfwBsrhvlLd15/09/2025 10:21 AM Asher Luevano RN * Do you have serious difficulty walking or climbing stairs?AnswerDate of AngjmdtgkiDbjzzlZu78/09/2025 10:21 AM Asher Luevano RN * Do you have difficulty dressing or bathing?AnswerDate of AssessmentAuthorNo 12/17/2024 10:21 AM Asher Luevano RN * Because of a physical, mental, or emotional condition, do you have difficulty doing errands alone such as visiting a doctor's office or shopping?AnswerDate of GbeuevzcdzVnreheEu14/09/2025 10:21 AM Asher Luevano RN documented as of this encounter Mental Status * Because of a physical, mental, or emotional condition, do you have serious difficulty concentrating, remembering, or making decisions?AnswerEntry Date KxpvutNr29/09/2025 10:21 AM Asher Luevano RN documented in this encounter Miscellaneous Notes * Telephone Encounter - Hai Palomino - 02/27/2025 3:04 PM EDT Patient called in requesting someone to call the nursing floor. She is still waiting on a bed. She would like a call back adry. Patient is nervous to drive back due to vision issues. * Telephone Encounter - Nhung Swain - 02/27/2025 12:54 PM EDT Call received for Alejandra Landrum DO regarding Karolina Gillis Stevosarahaubrey 1985. Caller: Self Patient Identified by Name and : Yes Was permission obtained from patient ? Yes Reason for Call: Symptoms Patient calling with complaints of: Patient is currently waiting on being admitted for a room. Due to having blurred vision and sweeling in her eyes. She was told that it could 12-24hrs before a bed can be open it. She is currently asking to speak with someone Last Office Visit: 10/12/2024 Last Distance Health visit: Visit date not found Next scheduled appointment: Visit date not found Best number to reach caller: [phone] (home) Best time to reach caller: ANY Is it OK to leave a detailed voice message? Yes Nhung Swain documented in this encounter Plan of Treatment DateTypeDepartmentCare Team (Latest Contact Info)Ekvtekkrqsj59/06/2025 9:30 AM ESTOffice Visit [facility] [address] [place] [address] Nati Noble PA-C [address] [place] [address] Next Available New Xdibigc8003/23/2025 8:40 AM ESTOffice Visit Orthopaedics [address] [place] [address] Linda Malik PA-C [address] [place] [address] Dx: Carpal tunnel syndrome, bilateral [G56.03]04/18/2025 7:30 AM ESTOffice Visit OPHT Ophthalmology [address] [address] Lloyd Sherwood MD [address] [place] [address] Please set the patient up for a 2 month virtual visit for history of IIH 04/24/2025 2:00 PM ESTOffice Visit Functional Medicine [address] [address] Janina Lock APRN.ICE SELLER [address] [phone] Multiple symptoms, lifestyle egldhbogmb99/17/2025 1:30 PM ESTOffice Visit Allergy [address] [place] [phone] Joyce Murguia MD [address] [facility] [place] [phone] Follow up06/15/2025 1:45 PM ESTOffice Visit [facility] [address] [place] [address] [place] [address] [place] [address] Next Available New Patientdocumented as of this encounter Visit Diagnoses Not on filedocumented in this encounter Care Teams Team MemberRelationshipSpecialtyStart DateEnd Date Yoan Morel MD [address] [place] [address] PCP - GeneralFamily Medicine06/06/24 Lloyd Sherwood MD [address] [place], [place] [phone] ReferringOphthalmology12/14/24documented as of this encounter
--- OUTSIDE RECORDS SUMMARY | 2025-03-03 12:52 | XMS_ITS | CCD ---
Author Organization [facility] Care Team Providers Care Advanced Practice Psychiatric Nurse Name Role Phone Parisa Babcock Unavailable Unavailable ANN KULKARNI Unavailable Unavailable ANN KULKARNI Unavailable Unavailable Flaquito Pablo Unavailable Unavailable GLO BABCOCK Unavailable Unavailable GLO BABCOCK Unavailable Unavailable Beni Penaloza V Unavailable Unavailable Flaquito Pablo Unavailable Unavailable Jose Hirsch Unavailable Unavaila Jose Sanders Unavailable Unavaila ble Samy Flaquito Turner Unavailable Unavailable [employer] Unavailable Unavailable Samy Flaquito E Unavailable Unavailable Samy Flaquito E Unavailable Unavailable YOAN IVEY Unavailable Unavailable SIS TORRES Unavailable Unavailable Lisa Johns Unavailable Isabel Redmond Unavailable Richard Wing Unavailable Fred Goldsmith Unavailable DEJAH Johns Primary Care Provider DEJAH Johns Attending Provider MD Pablo Phipps Attending Provider DO Janina Soria Attending Provider [phone] DO Kat Cristina Emergency Provider DEJAH Johns Primary Care Provider DO Janina Soria Attending Provider [phone] DO Kat Cristina Emergency Provider [phone] DEJAH Johns Attending Provider [phone] MD Richard Wing Other Provider DEJAH Johns Lisa Primary Care Provider DEJAH Johnsnifer Attending Provider [phone] [facility] Primary Care Unavailable DIAB ., TAVO Admitting Unavailable DIAB ., TAVO Attending Unavailable DIAB ., TAVO Consulting Unavailable KARASIK, FADUMO Admitting Unavailable KARASIK, FADUMO Attending Unavailable HUDSON LISA Primary Care Unavailable KARASIK, FADUMO Consulting Unavailable MAYA, DR KEITH Lackey Consulting Unavailable KARASIK, FADUMO Admitting Unavailable KARASIK, FADUMO Attending Unavailable MAL, DR LD Carter Primary Care Unavailable KARASIK, FADUMO Consulting Unavailable MD Shahid Ritter Emergency Provider [phone] MD Marcel Boo Referring Provider Unavailable Primary Care Provider Unavailmorenita Boo II, Dr. Marcel Tejeda Attending Unavailable DEJAH Johns [facility] Primary Care Provider DEJAH Johnsnifer Attending Provider Edward Hernandez Unavailable DEJAH Johns [facility] Primary Care Provider AMISHA Mejia Emergency Provider DO Kat Cristina Emergency Provider PROVIDER, UNKNOWN Admitting Unavailable PROVIDER, UNKNOWN Attending Unavailable CHANCE VERA Attending Unavailable PROVIDER, UNKNOWN Admitting Unavailable DEJAH Johns [facility] Primary Care Provider AMISHA Mejia Emergency Provider DO Kat Cristina Emergency Provider DO Vanessa Duran Attending Provider DEJAH Johns [facility] Primary Care Provider DO Curt Novoa Emergency Provider Arpan, SUPERVISOR HARDBOARD- Eli Tompkins Emergency Provider Unavailable Primary Care Provider UnavailDEJAH Hirschnifer Primary Care Provider AMISHA Mejia Emergency Provider VANESSA DURAN Attending Unavailable LD RESENDEZ Referring Unavailable VANESSA DURAN Attending Unavailable VANESSA DURAN Attending Unavailable LD RESENDEZ Referring Unavailable VANESSA DURAN Attending Unavailable VANESSA DURAN Attending Unavailable DEJAH Johns [facility] Primary Care Provider MD Jennifer Art Emergency Provider DEJAH Johns [facility] Primary Care Provider Bullimore, SUPERVISOR HARDBOARD-BC Eli E Emergency Provider [phone] NO FAMILY, PHYSICIAN Primary Care Provider Unava ilable Bullimore SUPERVISOR HARDBOARD-BC, Eli E Emergency Provider NO FAMILY, PHYSICIAN Primary Care Provider Unava ilable Unavailable Primary Care Provider Unavailabl e NO FAMILY, PHYSICIAN Primary Care Provider Unava ilable Florencio Guevara DO Attending Provider Yoan Ivey MD Primary Care Provider Yoan Ivey MD Primary Care Provider Yoan Ivey MD Attending Provider [phone] Yoan Ivey MD Primary Care Provider Carissa Mejia APRN Emergency Provider [phone] Sis Verma DO Admit Provider [phone] Cindy Winslow MD Attending Provider [phone] Janina Soria DO Other Provider Mj Garcia MD Other Provider Shahid Ritter MD Emergency Provider Unavailable Primary Care Provider UnavailLloyd Morales MD Unavailable BEBE THOMAS Attending Unavailable BEBE THOMAS Admitting Unavailable YOAN IVEY Primary Care Unavailable Lloyd Sherwood MD Primary Care Provider [phone] MANDIE BENDER Referring Unavailable SHERWOOD, LLOYD Primary Care Unavailable SHERWOOD, LLOYD Primary Care Unavailable MANDIE BENDER Attending Unavailable MANDIE BENDER Attending Unavailable LIVIA GIORDANO Attending Unavailable YOAN IVEY Referring Unavailable MANDIE BENDER Attending Unavailable SHERWOOD, LLOYD Primary Care Unavailable LORAINE PUENTE Referring Unavailable HOY, YOAN M Primary Care Unavailable HOY, YOAN M Primary Care Unavailable SARALAANTHONY, SPARSHA Admitting Unavailable CIRO HSU Attending Unavailable MANDIE BENDER Referring Unavailable MANDIE BENDER Attending Unavailable SHERWOOD, LLOYD Primary Care Unavailable SHERWOOD, LLOYD Primary Care Unavailable MANDIE BENDER Referring Unavailable MANDIE BENDER Attending Unavailable Yoan Ivey MD Primary Care Provider [phone] Sis Cortés MD Emergency Provider Florencio Guevara Jr Admitting Unavailable Florencio Guevara Jr Attending Unavailable NO FAMILY, PHYSICIAN Primary Care Unavailable Hoy, Yoan M Primary Care Unavailable Hoy, Yoan M Attending Unavailable Hoy, Yoan M Admitting Unavailable Janina Soria Consulting Unavailable Hoy, Yoan M Primary Care Unavailable Sis Verma Admitting Unavailable Cindy Winslow Attending Unavailable Mj Garcia Consulting Unavailable Shahid Ritter Admitting Unavailable Shahid Ritter Attending Unavailable Hoy, Yoan M Primary Care Unavailable Sis Cortés Admitting Unavailable Sis Cortés Attending Unavailable Hoy, Yoan M Primary Care Unavailable FAITH GARCIA Attending Unavailable HOY, YOAN M Primary Care Unavailable ARBEN PALMA Admitting Unavailable KARI CORBIN Attending Unavailable SHERWOOD, LLOYD Referring Unavailable HOY, YOAN M Primary Care Unavailable BEBE THOMAS Admitting Unavailable BEBE THOMAS Attending Unavailable HOY, YOAN M Primary Care Unavailable ZENAIDA LANDRUM Attending Unavailable HOY, YOAN M Primary Care Unavailable SELF Referring Unavailable HOY, YOAN M Primary Care Unavailable HOY, YOAN M Primary Care Unavailable LLOYD SHERWOOD Attending Unavailable HOY, YOAN M Primary Care Unavailable LISANDRO GONSALEZ Attending Unavailabl e HOY, YOAN M Primary Care Unavailable DRISS WADDELL Attending Unavaila ble HOY, YOAN M Primary Care Unavailable RAFY GOLDBERG Referring Unavailable CASSANDRA OROZCO Attending Unavailable HOY, YOAN M Primary Care Unavailable SERGEI HARRINGTON Attending Unavailable HOY, YOAN M Primary Care Unavailable LLOYD SHERWOOD Attending Unavailable HOY, YOAN M Primary Care Unavailable LLOYD SHERWOOD Referring Unavailable HOY, YOAN M Primary Care Unavailable LLOYD SHERWOOD Referring Unavailable BEBE THOMAS Attending Unavailable HOY, YOAN M Primary Care Unavailable CASSANDRA OROZCO Referring Unavailable CASSANDRA OROZCO Attending Unavailable HOY, YOAN M Primary Care Unavailable HOY, YOAN M Primary Care Unavailable ZENAIDA LANDRUM Attending Unavailable HOY, YOAN M Primary Care Unavailable LLOYD SHERWOOD Attending Unavailable HOY, YOAN M Primary Care Unavailable LLOYD SHERWOOD Attending Unavailable HOY, YOAN M Primary Care Unavailable RAFY GOLDBERG Referring Unavailable LLOYD SHERWOOD Attending Unavailable HOY, YOAN M Primary Care Unavailable ZENAIDA LANDRUM Attending Unavailable HOY, YOAN M Primary Care Unavailable YUKI CARTAGENAS E Referring Unavailable ZENAIDA LANDRUM Attending Unavailable ZENAIDA LANDRUM Referring Unavailable HOY, YOAN M Primary Care Unavailable OSIEL CARTAGENA Attending Unavailable ZENAIDA LANDRUM Referring Unavailable HOY, YOAN M Primary Care Unavailable LISANDRO GONSALEZ Referring Unavailabl e HOY, YOAN M Primary Care Unavailable ZENAIDA LANDRUM Attending Unavailable CIRO HSU Referring Unavailable HOY, YOAN M Primary Care Unavailable BEBE THOMAS Attending Unavailable HOY, YOAN M Primary Care Unavailable AMIRA SCOTT Referring Unavailable HOY, YOAN M Primary Care Unavailable OSIEL OSIEL E Attending Unavailable JOSEFA PITTS Referring Unavailable EMILEE COWART Attending Unavailable EMILEE COWART Referring Unavailable HARASIMOWICZ, DRISS Referring Unavaila ble HOY, YOAN M Primary Care Unavailable HARASIMOWICZ, DRISS Referring Unavaila ble HOY, YOAN M Primary Care Unavailable HOY, YOAN M Primary Care Unavailable LLOYD SHERWOOD Attending Unavailable HOY, YOAN M Primary Care Unavailable LISANDRO GONSALEZ Referring Unavailabl e HOY, YOAN M Primary Care Unavailable HOY, YOAN M Primary Care Unavailable ALLAN MIKE Attending Unavailable ZENAIDA LANDRUM Attending Unavailable LISANDRO GONSALEZ Referring Unavailabl e HOY, YOAN M Primary Care Unavailable LISANDRO GONSALEZ Attending Unavailabl e CASSANDRA OROZCO Referring Unavailable HOY, YOAN M Primary Care Unavailable HOY, YOAN M Primary Care Unavailable RAFY GOLDBERG Attending Unavailable CASSANDRA OROZCO Attending Unavailable CASSANDRA OROZCO Referring Unavailable HOY, YOAN M Primary Care Unavailable ZENAIDA LANDRUM Referring Unavailable HOY, YOAN M Primary Care Unavailable HANK URBINA Attending Unavailable ANGIE ALVARADO Referring Unavailable HOY, YOAN M Primary Care Unavailable ALEM STOVALL Referring Unavailable HOY, YOAN M Primary Care Unavailable LLOYD SHERWOOD Referring Unavailable HOY, YOAN M Primary Care Unavailable LLOYD SHERWOOD Attending Unavailable HOY, YOAN M Primary Care Unavailable JADYN PRADO Attending Unavailable HOY, YOAN M Primary Care Unavailable Allergies Allergy ClassificationReported Allergen(s)Allergy TypeDate of OnsetReaction(s) FacilityLatex (2 sources)LatexSubstance Nxpdfks49-72-5035FthyGhdtlovwz Clinicnickel (2 sources)nickelDrug Qzxkpfi44-07-8407DrlyCbdyefiae ClinicOpioid Agonists (2 sources)oxyCODONEDrug Pacemnl58-65-4196BhuoZzguvfsow Clinicsilk allergenic extract (2 sources)silk allergenic extractDrug Vpbtodg98-05-2452Xfeop: See Comments [facility] Rehabilitation[facility]am[facility] (antibiotic) (2 sources)sulfADIAZINEDrug Ehzoqmw61-04-6322GtinIqwzntduo Clinic (1 source)YES - ALLERGIES EXIST; Translations: [YES - ALLERGIES EXIST]Propensity to adverse reactions (disorder)[facility] Repository (20 sources)Acetaminophen / oxyCODONEDrug Mtqptou03-98-2839IbkemwfBNI Video [facility] [employer] Other (20 sources)Sulfamethoxazole / TrimethoprimDrug Mmvcplf69-17-5355Gleflmd, [facility] [employer] Other (18 sources)sulfaSALAzineDrug AllergyUnkOzarks Community Hospital [employer] Other (20 sources)nicklePropensity to adverse reactionsBates [facility] [employer] Other (20 sources)silk tape and latexPropensity to adverse reactionsBates County Memorial Hospital [employer] Other (20 sources)Latex; Translations: [latex]Allergy to joallopzh21-56-5431Fouf, Other - comment [facility] (20 sources)nickel; Translations: [Nickel]Drug Acxrfcx14-92-4587Lhow, Unknown, Other - comment [facility] (20 sources)oxyCODONE; Translations: [OXYCODONE]Drug Uesjtrd73-64-8866OxemTuscarawas Hospital (20 sources)Silk adhesive tapeAllergy to dvybygzdn81-31-9609JghmNkqwrbgsaPremier Health [facility] (20 sources)Sulfonamides (Antibiotic); Translations: [SULFA (SULFONAMIDE ANTIBIOTICS)]Allergy to pkedlgpyo60-52-0320Kduz, Other - comment [facility] (6 sources)SulfonamideDrug allergyWesterly Hospital [employer] Other (20 sources)Substance with sulfonamide structure and antibacterial mechanism of action (substance)Drug aqfrjsg31-87-0952SzimttjHljrs Coast [employer] Other (3 sources)Acetaminophen / oxyCODONE; Translations: [PERCOCET]Drug Allergy 96-15-2335Znm [facility] Repository (4 sources)Silk; Translations: [SILK]Drug allergy (disorder)57-73-4259Wjd [facility] Repository (1 source)Sulfonamides (Antibiotic)Drug allergy (disorder)55-78-6837Jcl [facility] Repository (20 sources)silk allergenic extractDrug Xqfzcsa46-43-5934Elnbd: See Comments [facility] (10 sources)Adhesive TapeDrug allergyEllis Island Immigrant Hospital [employer] Other (1 source)Sulfonamides (Antibiotic); Translations: [SULFA ANTIBIOTICS]Propensity to adverse reactions to drug (disorder)86-82-2718Etm [employer] [facility] Repository (8 sources)Acetaminophen; Translations: [ACETAMINOPHEN]Drug Fqcyguo82-90-2276 Hives, [facility]chingSouth[facility] Center (2 sources)Adhesive TapeAllergy to dibaymqbn00-25-8889henmYxsvnfmqzSelect [facility] (20 sources)sulfADIAZINE; Translations: [SULFADIAZINE]Drug Ewpuono27-08-0497Dgab [facility] (20 sources)Adhesive agent; Translations: [ADHESIVE]Drug Oqjgfhh83-86-0508Edvg [facility] (20 sources)Adhesive Tape; Translations: [ADHESIVE TAPE (ROSINS)]Allergy to aekcjbgtv45-23-8421Doazh, ItchingMer[facility] Health [facility] (20 sources)levoFLOXacin; Translations: [LEVOFLOXACIN]Drug Dhugpbz60-53-4647 SwellingMer[facility] Work Phone: (20 sources)Morphine; Translations: [MORPHINE]Drug Maodthn58-39-3454Hdvyjmizgi, AnaphylaxisSouthview Medical Center (6 sources)Acetaminophen / oxyCODONE; Translations: [OXYCODONE-ACETAMINOPHEN] Drug Qbdsotq58-09-5856Dlheuyqmy Clinic Other [facility] Repository (3 sources)Sulfamethoxazole / Trimethoprim; Translations: [SULFAMETHOXAZOLE-TRIMETHOPRIM]Drug Oslbprp84-12-0384Ddvpuvcud Clinic Other [employer] Repository (11 sources)Adhesive agentDrug Fjyikly39-25-3997MpiuHxdbnaniw Clinic (1 source)NOT ON FILE; Translations: [NOT ON FILE]Propensity to adverse reactions to drug (disorder)[facility] Repository Medications Current Medications MedicationDrug Class(es)DatesSig (Normalized)Sig (Original)0.5 ML semaglutide 0.5 MG/ML Auto-Injector [Wegovy] (2 sources)Start: 58-41-7039qybjxw 0.5 mL by subcutaneous injection every week Wegovy 0.25 MG/0.5ML 0.5 ml Subcutaneous Weekly for 30 days September, Active 12 hr acetaZOLAMIDE 500 mg extended release oral capsule (20 sources)Carbonic Anhydrase InhibitorStart: 01-10-2025 End: 92-75-6316khht 1 capsule by mouth in the morningacetaZOLAMIDE (DIAMOX SEQUEL) 500 mg capsule Take 1 Cap by mouth in the morning. 01/10/2025 02/09/2025 ActiveStart: 11-14-2024 End: 81-98-7288enqg 1 tablet by mouth once daily in the eveningacetaZOLAMIDE (DIAMOX) 250 mg tablet Indications: IIH (idiopathic intracranial hypertension) Take 1tablet by mouth every evening. 30 tablet 5 11/14/2024 12/27/2024 Discontinued (Dosage adjustment)Start: 10-05-2024 End: 58-66-2497mhkc 1 capsule by mouth twice dailyacetaZOLAMIDE SR (DIAMOX SEQUELS) 500 mg capsule Indications: IIH (idiopathic intracranial hypertension) Take 1 capsule by mouth two times a day. 60 capsule 4 10/05/2024 01/10/2025 DiscontinuedStart: 09-21-2024 End: 82-91-5444zkuu 3 tablets by mouth once daily in the morning, then take 3 tablets by mouth once daily at bedtimeacetaZOLAMIDE (DIAMOX) 250 mg tablet Take 3 tablets by mouth every morning AND 3 tablets daily at bedtime. 540 tablet 09/21/2024 10/05/2024 Discontinued (Side Effects)Start: 07-04-2024 End: 02-47-6994kiuf 2 tablets by mouth once daily in the morning, then take 3 tablets by mouth once daily at bedtimeacetaZOLAMIDE (DIAMOX) 250 mg tablet Take 2 tablets by mouth every morning AND 3 tablets daily at bedtime. 150 tablet 2 07/04/2024 09/21/2024 DiscontinuedStart: 06-03-2024 End: 60-08-3989ihiy 1 capsule by mouth twice dailyacetaZOLAMIDE SR (DIAMOX SEQUELS) 500 mg capsule Take 1 capsule by mouth two times a day. 60 capsule 2 06/03/2024 07/04/2024 DiscontinuedStart: 04-05-2024 End: 28-67-9096zncbjXVNXZTXR (DIAMOX) 250 mg tablet Indications: IIH (idiopathic intracranial hypertension) 500 mgAM; 250 mg PM 90 tablet 5 04/05/2024 06/03/2024 DiscontinuedStart: 10-09-2023 End: 76-20-8601kcyh 1 tablet by mouth twice daily in the morning, then take 2 tablets by mouth in the eveningAcetazolamide 250 mg tablet Discontinued 250 MG PO Twice daily January 29, 2024 8:27am September 30, 2024 10:29am Takes 250 mg in am, 500 mg in pmStart: 02-12-2022 End: 32-01-0752juae 1 tablet by mouth once dailyAcetazolamide 250 mg Tablet Discontinued 250 MG PO Daily February 12, 2022 12:00am July 1948:47am take 1 tablet by mouth twice dailyacetaZOLAMIDE 250 MG 1 tab Orally twice daily Lgjdnrwrd313343 200 actuat albuterol 0.09 mg/actuat metered dose inhaler (20 sources)beta2-Adrenergic AgonistStart: 09-29-2023 End: 29-05-5709rztd 2 puff(s) by mouth every four hours as neededStart: 09-28-2023 End: 31-33-5127vyhv 2 puff(s) by inhalation every four hours as needed for cough Albuterol Sulfate (Ventolin Hfa) 90 mcg/actuation HFA aerosol inhaler Discontinued INHALATION September 28, 2023 12:00am September 29, 2023 7:38am FreeTextSi puffs as needed Inhalation every 4 hrs PRN shortness of breath, wheezing, or cough; Note: Source Status: Taking; Refills: 1; Provider: Andreas Gonzalez MStart: 75-03-7143ogeb 2 puff(s) by inhalation every four hours as needed for coughVentolin HFA 108 (90 Base) MCG/ACT 2 puffs as needed Inhalation every 4 hrs PRN shortness of breath, wheezing, or cough for 90 days Apr, ActiveStart: 03-24-2021 End: 40-54-0754pevc 2.5 mg by inhalation every six hours as neededAlbuterol Sulfate 2.5 mg /3 mL (0.083 %) solution for nebulization Discontinued 2.5 MG INHALATION Q6H as needed for bronchospasm March 24, 2021 1:00am February 12, 2022 10:52pmStart: 05-11-2019 End: 94-42-7048dvfe 1 mL by inhalation every six hours as neededAlbuterol Sulfate 2.5 mg /3 mL (0.083 %) solution for nebulization Discontinued 3 ML INHALATION Q6Has needed for Shortness Of Breath May 11, 2019 1:00am February 12, 2022 10:52pmStart: 05-11-2019 End: 20-15-1596Gsppwctyg Sulfate 90 mcg/actuation HFA aerosol inhaler Discontinued May 11, 2019 1:00am May 11, 2019 11:10amStart: 11-20-2018 End: 12-85-2890rxbt 1 puff(s) by inhalation every four to six hours as needed Albuterol Sulfate 90 mcg/actuation Hfa Aerosol Inhaler Discontinued 2 PUFF INHALATION EVERY 4-6 HOURS as needed for Bronchospasm November 20, 2018 12:00am February 12, 2022 10:52pmStart: 23-10-7638djna 1-2 puff(s) by inhalation every four to six hours as needed for coughVentolin HFA 108 (90 Base) MCG/ACT 1 - 2 puffs as needed Inhalation every 4 - 6 hrs prn cough or wheezing for 10 days Jul, Not-TakingStart: 10-05-2017 End: 54-77-8749Mlolriouw Sulfate 90 mcg/actuation HFA aerosol inhaler Discontinued 2 INH INHALATION every 6 to 8 hours as needed for shortness of breath or wheezing October 05, 2017 12:00am December 18, 2017 10:05pm administer with spacertake 2 puff(s) by inhalation every four hours as neededalbuterol 90 mcg/actuation Inhalation aerosol Inhale 2 Puffs as directed every 4 hours as needed. Activetake 2 puff(s) by inhalation every six hours as neededProventil HFA 108 (90 Base) MCG/ACT 2 puffs as needed Inhalation every 6 hrs Active amoxicillin 875 mg / clavulanate 125 mg oral tablet (14 sources)Penicillin-class AntibacterialStart: 88-99-1595ubaq 1 tablet by mouth twice dailyamoxicillin-clavulanate potassium (AUGMENTIN) 875-125 mg per tablet Take 1 tablet by mouth two times a day. 09/23/2024 ActiveStart: 54-85-3190myyi 1 tablet by mouth every twelve hoursAugmentin 875-125 MG 1 tablet Orally every 12 hrs for 10 days Feb, Activeamphetamine aspartate 5 mg / amphetamine sulfate 5 mg / dextroamphetamine saccharate 5 mg / dextroam phetamine sulfate 5 mg oral tablet (20 sources)Central Nervous System StimulantStart: 12-17-2024 End: 55-55-6735axpp 1 tablet by mouth in the morningamphetamine salt combination, 20 mg, (ADDERALL) 20 mg tablet Take 1 Tab by mouth in the morning. 10mg in afternoon. 12/17/2024 12/17/2025 ActiveStart: 23-97-9990qful 1 tablet by mouth once dailybenoxinate hydrochloride 4 mg/ml / fluorescein sodium 3 mg/ml ophthalmic solution (11 sources)Diagnostic DyeStart: 01-10-2025 End: 27-32-4160jskszmcmbvd-benoxinate 0.3-0.4 % 1 drop (FLURESS)Start: 01-10-2025 End: drop, BOTH EYES, DIRECTED, Starting on Tu01/10/25 at 0916, Until 01/22/25 at 0915, Administer for applanation tonometry. In the event of a Fluress shortage, administer Shanna-Fluor 1 drop into both eyes as directed for applanation tonometry, OPHT CLINIC MED ORDERSStart: 09-28-2024 End: 53-38-7775rcsudxqneuy-benoxinate 0.3-0.4 % 1 drop (FLURESS)Start: 12-25-2023 End: 12-05-5058hsgbqcoxecb-benoxinate 0.3-0.4 % 1 Drop (FLURESS)Calcium (11 sources)Phosphate Binder, Calciumcalcium 26/magnesium 15/zinc (XCJPYTE-OPKUXDVBK-VGPR COMPLEX ORAL) Take by mouth once daily. Patient does not know dosing Activechlorzoxazone 500 mg oral tablet (18 sources)Muscle RelaxantStart: 23-71-1919bjon 1 tablet by mouth every six hours as neededchlorzoxazone (PARAFON FORTE DSC) 500 mg tablet Take 500 mg by mouth every 6 hours as needed. 12/17/2024 ActiveStart: 12-17-2024 End: 94-62-7495wrlr 1 tablet by mouth every six hours as neededchlorzoxazone (PARAFON FORTE DSC) 500 mg tablet Take 1 tablet by mouth four times a day as needed. 30 tablet 1 12/17/2024 12/27/2024 Discontinued (Course of therapy completed)Start: 09-13-2024 End: 04-41-7234mctt 1 tablet by mouth three times dailychlorzoxazone (PARAFON FORTE DSC) 500 mg tablet Indications: Chronic migraine without aura without s tatus migrainosus, not intractable Take 1 tablet by mouth three times a day for 5 days. 15 tablet 09/13/2024 09/13/2024 DiscontinuedStart: 06-03-2024 End: 74-24-8628eihu 1 tablet by mouth four times dailychlorzoxazone (PARAFON FORTE DSC) 500 mg tablet Take 1 tablet by mouth four times daily for 5 days.20 tablet 06/03/2024 06/08/2024 ActiveStart: 05-30-2024 End: 53-18-9594utcu 1 tablet by mouth three times dailychlorzoxazone (PARAFON FORTE DSC) 500 mg tablet Take 1 tablet by mouth three times a day for 5 days. Do not take with Zanaflex 15 tablet 05/30/2024 06/03/2024 Lbzyvqxtbarr97 hr dextromethorphan hydrobromide 30 mg / guaiFENesin 600 mg extended release oral tablet (2 sources)Uncompetitive P-xzzznj-T-aspartate Receptor Antagonist, Sigma-1 AgonistStart: 80-44-5710bfum 1 tablet by mouth every twelve hoursMucinex DM 30- 600 MG 1 tablet as needed Orally every 12 hrs for 14 days Nov, Active diclofenac sodium 0.01 mg/mg topical gel (12 sources)Nonsteroidal Anti-inflammatory DrugStart: 06-14-2024 End: 33-62-7947tnosbqifvt (VOLTAREN ARTHRITIS PAIN) 1 % topical gel Indications: Polyarthralgia Apply 2 g to affected area four times daily. 240 g 2 06/14/2024 09/12/2024 Activefluticasone furoate 0.0275 mg/actuat metered dose nasal spray (1 source)CorticosteroidStart: 18-57-9878gknp 1 spray(s) nasal route twice daily iv contrast (will be provided with radiology test) (3 sources)Start: 06-03-2024 End: 29-55-8367yr contrast (will be provided with radiology test) [...] administration guidelines link. 1 Each 06/03/2024 06/04/2024 ActiveMagnesium (3 sources)Start: 61-17-5060Weqwy: 84-97-4748Fesvnakwv 200 mg tablet Active 420 MG PO Daily September 28, 2024 12:00ammagnesium oxide 400 mg oral tablet (12 sources)Start: 95-48-7751qxrl 1 tablet by mouth in the morningmagnesium oxide (MAG-OX) 400 mg tablet Take 1 Tab by mouth in the morning. 12/27/2024 ActiveStart: 00-20-4401mgcr 1 tablet by mouth once dailymagnesium oxide (MAG-OX) 400 mg (241.3 mg magnesium) tablet Take 1 tablet by mouth once daily. 12/27 Activemelatonin/thean/lemon/david/lav (SLEEP CALM ORAL) (5 sources) End: 09-76-0998enxmggwmn/thean/lemon/david/lav (SLEEP CALM ORAL) Take by mouth. THC oral gummies. 0 10/09/2023 Discontinuedmelatonin/thean/lemon/david/lav (SLEEP CALM ORAL) Take by mouth. THC oral gummies. 0 Activemontelukast 10 mg oral tablet (20 sources)Leukotriene Receptor AntagonistStart: 23-97-0068ehbk 1 tablet by mouth in the morningSINGULAIR 10 mg tablet Take 1 Tab by mouth in the morning. 03/21/2024 ActiveStart: 09-14-2023 End: 78-56-5361rixe 1 tablet by mouth once dailyMontelukast 10 mg tablet Discontinued 0 .ROUTE .COMPLEX 90 December 10, 2023 4:36pm March 08, 2024 9:51am TAKE 1 TABLET BY MOUTH DAILYStart: 03-24-2021 End: 29-21-1949rfdroifuvqi (SINGULAIR) 10 mg tablet Montelukast Active 10 MG PO Daily March 24, 2021 12:00am 03/24/2021 10/12/2024 DiscontinuedStart: 03-24-2021 End: 55-24-8633lysf 1 tablet by mouth at bedtimeMontelukast 10 mg tablet Discontinued 10 MG PO Bedtime March 24, 2021 1:00am September 14, 2023 11:02am Comment on above:Montelukast Active 10 MG PO Daily March 24, 2021 12:00am Multivitamin Adult - (20 sources)Multivitamin Adult - Orally ActiveMultivitamin preparation (19 sources)Start: 81-61-7112vvbo 1 tablet by mouth once dailyMultivitamin Active 1 TAB PO Daily July 02, 2018 12:00amStart: 48-17-1784fmya 1 tablet by mouth once dailyMultivitamin Active 1 TAB PO Daily July 02, 2018 1:00am Multivitamin Tablet (6 sources)Start: 67-85-4350fiab 1 tablet by mouth once dailyStart: 07-02-2018 take 1 tablet by mouth once dailyMultivitamin Tablet Active 1 TAB PO Daily July 02, 2018 1:00amStart: 60-46-9409wwel 1 tablet by mouth once daily Multivitamin Tablet Active 1 TAB PO Daily July 02, 2018 12:00am MULTIVITAMINS W/C ORAL (2 sources)MULTIVITAMINS W/C ORAL Activemv,calcium,min/iron/folic/vitK (MULTI FOR HER ORAL) (20 sources)mv,calcium,min/iron/folic/vitK (MULTI FOR HER ORAL) Active mv,calcium,min/iron/folic/vitK (MULTI FOR HER ORAL)Nasonex 50 MCG/ACT (3 sources)Start: 71-63-5697hvjj 2 spray(s) nasal route once dailyNasonex 50 MCG/ACT 2 sprays in each nostril Nasally Once a day for 30 day(s) May, Activenortriptyline 10 mg oral capsule (14 sources)Tricyclic AntidepressantStart: 12-17-2024 End: 39-81-3898fuhw 1 capsule by mouth in the morningnortriptyline (PAMELOR) 10 mg capsule Take 10 mg by mouth in the morning. 12/17/2024 ActiveOzempic (2 MG/DOSE) 8 MG/3ML (3 sources)Start: 01-70-8189aqhaqb 2 mg by subcutaneous injection every week Ozempic (2 MG/DOSE) 8 MG/3ML 2 mg Subcutaneous weekly for 30 days Nov, Activeperflutren lipid microspheres 1.3 mL in NaCl (PF) 0.9% 10 mL injection (DEFINITY) (8 sources)Start: 07-18-2022 End: 06-67-0189sgwydgeypz lipid microspheres 1.3 mL in NaCl (PF) 0.9% 10 mL injection (DEFINITY)phenylephrine hydrochloride 25 mg/ml ophthalmic solution (17 sources)alpha-1 Adrenergic AgonistStart: 01-10-2025 End: 76-77-5058LDBXHWkfnmnlq 2.5 % 1 drop (AK-DILATE, ANTHONY-SYNEPHRINE)Start: 01-10-2025 End: drop, BOTH EYES, DIRECTED, Starting on 01/10/25 at 0916, Until 01/22/25 at 0915, Administer for dilation PROTECT FROM LIGHT, [facility] MED ORDERSStart: 09-28-2024 End: 46-97-9754JXGCLEuzgsxpx 2.5 % 1 drop (AK-DILATE, ANTHONY-SYNEPHRINE)Start: 06-14-2024 End: 90-35-4784ZPWUWCpcuwfdd 2.5 % 1 Drop (AK-DILATE, ANTHONY-SYNEPHRINE)Start: 06-14-2024 End: Drop, BOTH EYES, DIRECTED, Starting on Tu06/14/24 at 0846, Until 06/26/24 at 0845, Administer for dilation PROTECT FROM LIGHT, [facility] MED ORDERSStart: 12-25-2023 End: 26-85-0781PRQLVOdkvzwlg 2.5 % 1 Drop (AK-DILATE, ANTHONY-SYNEPHRINE)potassium chloride 10 meq extended release oral capsule (3 sources)Start: 59-78-5077jnbz 1 capsule by mouth once dailyPOTASSIUM-99 ORAL (19 sources)POTASSIUM-99 ORAL Take by mouth. ActivepredniSONE 20 mg oral tablet (20 sources)Start: 09-20-2024 End: 86-93-3716flbqncATCD (DELTASONE) 20 mg tablet Take 2 tablets [...] day) then DONE 20 tablet 09/20/2024 09/28/2024 ActiveStart: 03-19-2024 End: 03-09-7332Zbxntzjnmg 10 mg tablet Discontinued 0 PO daily 28 12March 19, 2024 1:00am September 28, 2024 5:08pm 4 tablets x2 days, then 3 tab x2 days, then 2 tab x2 days, then 1 tab x2 days orally daily;Start: 08-25-2023 End: 76-17-7341qpdc 1 tablet by mouth once daily at mealtimePrednisone 50 mg tablet Discontinued 50 MG PO Daily 5 5 August 25, 2023 12:00am October 04, 2023 3:48pm administer with food or milkStart: 76-47-2185xmfvoibhwr 10 mg 4 tablets x2 days, then 3 x2 days, 2 x2 days, 1 x2 days Orally as directed for 8 May, ActiveStart: 62-00-2794azkk 1 tablet by mouth three times dailypredniSONE 20 MG Take 1 tablet Orally 3 times a day for 6 days Nov, ActiveStart: 33-72-1763zdseqnFRYE 10 MG (21) as directed Orally once a day for 6 days Nov, ActiveStart: 05-11-2019 End: 47-96-5035edut 2 tablets by mouth once dailyPrednisone 20 mg tablet Discontinued 40 MG PO Daily May 11, 2019 11:09am March 24, 2021 12 :37pmStart: 05-11-2019 End: 51-87-4077ttja 40 mg by mouth once dailyPrednisone Discontinued 40 MG PO Daily May 11, 2019 11:09am March 24, 2021 12:37pmStart: 05-11-2019 End: 61-19-5804Csmpdbgfto 20 mg tablet Discontinued May 11, 2019 1:00am May 11, 2019 11:10amStart: 05-11-2019 End: 85-38-0877Pcicjharve 20 mg tablet Discontinued TABLET May 11, 2019 1:00am May 11, 2019 11:10amStart: 11-20-2018 End: 21-51-5913wmmg 60 mg by mouth once dailyPrednisone Discontinued 60 MG PO Daily November 20, 2018 12:00am May 11, 2019 11:10amStart: 07-26-2018 End: 34-28-7950splf 3 tablets by mouth once dailyPrednisone 20 mg tablet Discontinued 60 MG PO Daily November 20, 2018 12:00am May 11, 2019 11:10am Start: 10-05-2017 End: 64-78-2745vhkr 3 tablets by mouth once daily at mealtimePrednisone 20 mg tablet Discontinued 60 MG PO Daily 15 October 05, 2017 12:00am October 09, 2017 12:00am October 10, 2017 12:02am administer with food or milkStart: 10-05-2017 End: 04-56-1907rfkw 60 mg by mouth once daily at mealtimePrednisone Discontinued 60 MG PO Daily 15 October 05, 2017 12:00am October 10, 2017 12:02am administer with food or milkProAir HFA 108 (90 Base) MCG/ACT (2 sources)Start: 69-95-3439nfzm 2 puff(s) by inhalation every four hours as needed for coughProAir HFA 108 (90 Base) MCG/ACT 2 puffs as needed Inhalation every 4 hrs prn cough/wheezing/shortness of breath for 30 days Mar, Activeproparacaine hydrochloride 5 mg/ml ophthalmic solution (15 sources)Local AnestheticStart: 01-10-2025 End: 36-38-4419llgzwwcfxhup 0.5 % 1 drop (ALCAINE)Start: 09-28-2024 End: 65-32-6755hhifcmmtgsti 0.5 % 1 drop (ALCAINE)Start: 06-14-2024 End: 13-57-8427hbvyfrudaztp 0.5 % 1 Drop (ALCAINE)Start: 12-25-2023 End: 75-81-7877jzscapsxlepu 0.5 % 1 Drop (ALCAINE)Semaglutide Base (1 source)Start: 77-07-9303ouelbd 1 mL by subcutaneous injection every week Semaglutide Base Active 0.25 ML SUBCUT every week January 29, 2024 12:00am [facility] Pre-filled Syringes using Semaglutide Base. Dispense 1 mL = (Four 0.25 mL pre-filled syringes)125 ml sodium chloride 9 mg/ml prefilled syringe (8 sources)Start: 07-18-2022 End: 29-27-7911krjitk chloride 0.9 % (flush) 10 mL (BD POSIFLUSH)tiZANidine 4 mg oral tablet (20 sources)Central alpha-2 Adrenergic AgonistStart: 05-20-2024 End: 50-29-0872zcas 1 tablet by mouth every twenty-four hours as needed tiZANidine (ZANAFLEX) 4 mg tablet Take 1 tablet by mouth at bedtime as needed (muscle spasm). 30 tablet 2 05/20/2024 08/18/2024 ActiveStart: 03-24-2021 End: 57-79-9948byea 1 tablet by mouth once daily as neededTizanidine 4 mg tablet Discontinued 4 MG PO Daily as needed for Leg Tingling March 24, 2021 1:0 0am July 20, 2023 8:48amZanaflex prn Not-TakingZanaflex prn ActiveZanaflex Activetropicamide 10 mg/ml ophthalmic solution (17 sources)AnticholinergicStart: 01-10-2025 End: 05-69-3343jirslauzhlx 1 % 1 drop (MYDRIACYL)Start: 01-10-2025 End: drop, BOTH EYES, DIRECTED, Starting on Tu01/10/25 at 0916, Until 01/22/25 at 0915, Administer for dilation, [facility] ORDERSStart: 09-28-2024 End: 71-12-5552pzbtupimqsg 1 % 1 drop (MYDRIACYL)Start: 06-14-2024 End: 90-87-6961uyicluqstmv 1 % 1 Drop (MYDRIACYL)Start: 06-14-2024 End: Drop, BOTH EYES, DIRECTED, Starting on Thu06/14/24 at 0846, Until 06/26/24 at 0845, Administer for dilation, [facility] MED ORDERSStart: 12-25-2023 End: 78-47-2950scpnqbcbbgu 1 % 1 Drop (MYDRIACYL)24 hr divalproex sodium 500 mg extended release oral tablet (20 sources)Mood Stabilizer, Anti-epileptic AgentStart: 01-05-2025 End: 79-96-8535fbog 1 tablet by mouth in the morningdivalproex (DEPAKOTE-ER) 500 mg ER-tablet Take 1 Tab by mouth in the morning and 1 Tab before bedtime. 01/05/2025 07/04/2025 ActiveStart: 01-05-2025 End: 09-88-6059uygy 1 tablet by mouth twice dailydivalproex ER (DEPAKOTE ER) 500 mg 24 hr tablet Take 1 tablet by mouth two times a day. 180 tablet 1 01/05/2025 07/04/2025 ActiveStart: 10-19-2024 End: 37-91-3670xxjm 1 tablet by mouth once daily at bedtimedivalproex ER (DEPAKOTE ER) 500 mg 24 hr tablet Take 1 tablet by mouth daily at bedtime. 90 tablet 1 10/19/2024 01/05/2025 DiscontinuedStart: 10-07-2024 End: 22-02-7743pyis 2 tablets by mouth once daily, then take 1 tablet by mouth once dailydivalproex ER (DEPAKOTE ER) 500 mg 24 hr tablet Take 2 tablets by mouth once daily for 5 days, THEN1 tablet once daily for 5 days. 15 tablet 10/07/2024 10/17/2024 Activezinc gluconate 50 mg oral tablet (8 sources)Start: 19-26-1952llvr 1 tablet by mouth once dailyzonisamide 25 mg oral capsule (4 sources)Anti-epileptic AgentStart: 08-24-2024 End: 98-61-0512yfvb 1 capsule by mouth once daily, then take 2 capsules by mouth once daily, then take 3 capsules by mouth once daily, then take 4 capsules by mouth once dailyzonisamide (ZONEGRAN) 25 mg capsule Take 1 capsule by mouth once daily for 7 days, THEN 2 capsules once daily for 7 days, THEN 3 capsules once daily for 7 days, THEN 4 capsules once daily. 402 capsule 08/24/2024 09/21/2024 Discontinued Completed/Discontinued Medications MedicationDrug Class(es)DatesSig (Normalized)Sig (Original)3 ML semaglutide 2.68 MG/ML Pen Injector [Ozempic] (9 sources)Start: 23-73-7826bmbfqm 2 mg by subcutaneous injection every week Ozempic (2 MG/DOSE) 8 MG/3ML 2 mg Subcutaneous weekly for 30 days Nov, Not-TakingStart: 15-59-4504sqxnqn 2 mg by subcutaneous injection every week Ozempic (2 MG/DOSE) 8 MG/3ML 2 mg Subcutaneous weekly for 30 days Nov, Activeacetaminophen 500 mg oral tablet (1 source)Start: 01-26-2025 End: 54-58-2016psjs 1 dose by mouth once1,000 mg, Oral, ONCE PRN, 1 dose, Starting on Antonette 01/26/25 at 1401, Until Antonette 01/26/25 at 1433, Painacetaminophen 325 mg / HYDROcodone bitartrate 5 mg oral tablet (14 sources)Opioid AgonistStart: 07-29-2023 End: 61-56-4957dcdv 2 tablets by mouth every six hours as needed for pain Hydrocodone-Acetaminophen 5-325 mg tablet Discontinued 2 TAB PO Q6H as needed for pain 40 7 July 29, 2023 August 25, 2023 12:05pmacyclovir 400 mg oral tablet (11 sources)Herpesvirus Nucleoside Analog DNA Polymerase Inhibitor, Herpes Simplex Virus Nucleoside Analog DNA Polymerase Inhibitor, Herpes Zoster Virus Nucleoside Analog DNA Polymerase InhibitorStart: 08-25-2023 End: 40-26-9606wfyc 1 tablet by mouth three times dailyAcyclovir 400 mg tablet Discontinued 400 MG PO Three times daily August 25, 2023 12:00am October 04, 2023 3:48pmatogepant (QULIPTA) 60 mg tablet (20 sources)Start: 10-07-2024 End: 16-95-2077kooo 1 tablet by mouth once dailyatogepant (QULIPTA) 60 mg tablet Indications: Migraine without aura, not intractable, without status migrainosus Take 1 tablet by mouth once daily. 30 tablet 2 10/07/2024 01/05/2025 DiscontinuedStart: 10-07-2024 End: 48-49-8482nmzc 1 tablet by mouth once dailyatogepant (QULIPTA) 60 mg tablet Indications: Migraine without aura, not intractable, without status migrainosus Take 1 tablet by mouth once daily. 30 tablet 2 10/07/2024 01/05/2025 Active azithromycin 250 mg oral tablet (20 sources)Macrolide AntimicrobialStart: 03-19-2024 End: 45-07-5462Ldkulcnajkyn 250 mg tablet Discontinued 0 PO .COMPLEX 6 5 March 19, 2024 1:00am September 28, 2024 11:14pm For 250 mg dose pack: take 500 mg today (day 1), then 250 mg for 4 days (days 2-5) POStart: 89-88-4193uapn 2 tablets by mouth once daily, then take 1 tablet by mouth once daily, then take 2 tablets by mouth once dailyAzithromycin 250 MG 2 tablets on day 1, then 1 tablet on day 2 through 5 Orally Once a day for 5 2023 ActiveStart: 03-24-2021 End: 33-92-8839Iapyoegaznfg 250 mg tablet Discontinued 250 MG PO Daily March 24, 2021 1:00am February 12, 2022 10:52pm Take two tabs (500mg) on day 1 then take one tab daily for 4 daysStart: 05-11-2019 End: 38-13-5097ugck 2-5 tablets by mouth once dailyAzithromycin (Zithromax Z- Charlie) 250 mg tablet Discontinued 0 PO .COMPLEX May 11, 2019 1:00am N ovember 2020 12:37pm take 500 mg today (day 1), then 250 mg for 4 days (days 2-5)benzonatate 200 mg oral capsule (20 sources)Non-narcotic AntitussiveStart: 03-19-2024 End: 23-77-1199arkh 1 capsule by mouth three times daily as needed for cough Benzonatate 200 mg capsule Discontinued 200 MG PO Three times daily as needed for cough 30 March 19, 2024 1:00am September 28, 2024 11:14pmStart: 22-70-9467swcd 1 capsule by mouth every eight hoursBenzonatate 200 MG 1 capsule Orally Three times a day for 10 May, ActiveStart: 03-24-2021 End: 22-91-3575uqrm 1 capsule by mouth three times daily as needed for cough Benzonatate 200 mg capsule Discontinued 200 MG PO Three times daily as needed for Cough March 24, 2021 1:00am February 12, 2022 10:52pmStart: 10-05-2017 End: 90-89-9563kkfw 2 capsules by mouth every six hours as needed for cough Benzonatate (Tessalon Perles) 100 mg capsule Discontinued 200 MG PO Q6H as needed for cough October 05, 2017 12:00am December 18, 2017 10:05pm brompheniramine maleate 0.4 mg/ml / dextromethorphan hydrobromide 2 mg/ml / pseudoephedrine hydrochloride 6 mg/ml oral solution (20 sources)alpha-Adrenergic Agonist, Uncompetitive N-quteks-V-aspartate Receptor Antagonist, Sigma-1 AgonistStart: 05-11-2019 End: 06-14-6943vfgh 1 mL by mouth four times daily as needed for cough Headeijdknyivrk-Xfcydjwjk-Vv 2-30-10 mg/5 mL syrup Discontinued 10 ML PO Four times daily as neededfor Cough May 11, 2019 1:00am March 24, 2021 12:38pm12 hr buPROPion hydrochloride 150 mg extended release oral tablet (20 sources)AminoketoneStart: 03-24-2021 End: 52-44-8980ucwz 1 tablet by mouth twice dailyBupropion Hcl 150 mg tablet sustained-release 12 hr Discontinued 150 MG PO Twice daily March 24, 2021 1:00am February 12, 2022 10:52pmcephalexin 500 mg oral tablet (20 sources)Cephalosporin AntibacterialStart: 52-05-5211ugwn 1 tablet by mouth every eight hoursCephalexin 500 MG 1 tablet Orally every 8 hrs for 7 days Jun, Not-TakingStart: 03-22-2018 End: 74-74-5157idcv 1 capsule by mouth every twelve hoursCephalexin (Keflex) 500 mg capsule Discontinued 500 MG PO Q12H March 22, 2018 1:00am July 02, 2018 2:05pmcetirizine hydrochloride 10 mg oral tablet (20 sources)Histamine-1 Receptor AntagonistStart: 02-12-2022 End: 29-24-1562cwzb 1 tablet by mouth once daily in the morningCetirizine 10 mg tablet Discontinued 10 MG PO Every morning 90 November 16, 2023 10:02am September 28, 2024 11:19pmCetirizine 10 mg cap ActiveCetirizine HCl Active cyclobenzaprine hydrochloride 10 mg oral tablet (18 sources)Muscle RelaxantStart: 02-08-2024 End: 99-72-6854dbtv 1 tablet by mouth three times daily as needed for muscle spasmsCyclobenzaprine 10 mg tablet Discontinued 10 MG PO Three times daily as needed for muscle spasm February 08, 2024 12:00am September 28, 2024 11:15pm Start: 08-25-2023 End: 67-01-3276koea 1 tablet by mouth three times daily as needed for muscle spasmsCyclobenzaprine 10 mg tablet Discontinued 10 MG PO Three times daily as needed for muscle spasm August 25, 2023 12:00am October 04, 2023 3:49pmDELETED Baclofen 2%, Cyclobenzaprine HCl 2%, Diclofenac Na 3%, Gabapentin 6%, Lidocaine HCl 2% (4 sources)Start: 56-67-0685IAHUIFI Baclofen 2%, Cyclobenzaprine HCl 2%, Diclofenac Na 3%, Gabapentin 6%, Lidocaine HCl 2% as directed Topical rub 1-2 grams for 2-3 min every 6-8 hours as needed for 30 day(s) Nov, Not-Ta kingdexamethasone 6 mg oral tablet (20 sources)CorticosteroidStart: 03-24-2021 End: 52-71-0752ipzr 1 tablet by mouth once dailyDexamethasone 6 mg tablet Discontinued 6 MG PO Daily March 24, 2021 1:00am February 12, 2022 10:52pm dextromethorphan hydrobromide 1.5 mg/ml / pyrilamine maleate 1.5 mg/ml oral solution (4 sources)Uncompetitive F-hdzvaa-Z-aspartate Receptor Antagonist, Sigma-1 AgonistStart: 16-57-1535Dinwut DM 7.5-7.5 MG/5ML 20 ml Orally every 6 to 8 hours prn cough for 3 days Jul, Not-Takingdicyclomine hydrochloride 20 mg oral tablet (20 sources)AnticholinergicStart: 08-30-2017 End: 47-93-7590bikc 1 tablet by mouth four times daily as neededDicyclomine 20 mg tablet Discontinued 20 MG PO Four times daily as needed for abdominal discomfort August 30, 2017 12:00am October 05, 2017 12:45pmdihydroergotamine 0.25 mg in NaCl 0.9% 50 mL (2 sources)Start: 10-12-2024 End: 50.25 mg, INTRAVENOUS, at 100 mL/hr, Administer over 30 Minutes, EVERY 30 MINUTES, 4 doses, First dose on Thu10/12/24 at 1030, Last dose on Thu10/12/24 at 1200, Hazardous Potential Reproductive Risk Drug: Use appropriate PPE. Start: 10-10-2024 End: 50.25 mg, INTRAVENOUS, at 150 mL/hr, Administer over 20 Minutes, EVERY 30 MINUTES, 4 doses, First dose on Thu10/10/24 at 1130, Last dose on Thu10/10/24 at 1300, LOADING DOSE Wait 15 minutes between doses Hazardous Potential Reproductive Risk Drug: Use appropriate PPE.dihydroergotamine 0.5 mg in NaCl 0.9% 50 mL (1 source)Start: 10-11-2024 End: 50.5 mg, INTRAVENOUS, at 100 mL/hr, Administer over 30 Minutes, EVERY 30 MINUTES, 2 doses, First dose on Thu10/11/24 at 1100, Last dose on Thu10/11/24 at 1130, Hazardous Potential Reproductive Risk Drug: Use appropriate PPE. estradiol 0.5 mg oral tablet (12 sources)EstrogenStart: 08-11-2024 End: 69-26-4823ntfq 1 tablet by mouth once dailyestradiol (ESTRACE) 0.5 mg tablet Take 1 tablet by mouth once daily. 08/11/2024 10/12/2024 Discontinued estrogens, conjugated (fci) 0.45 mg oral tablet (20 sources)EstrogenStart: 06-12-2022 End: 76-92-7618qyyu 1 tablet by mouth once daily in the morningConjugated Estrogens (Premarin) 0.45 mg tablet Discontinued 0.45 MG PO Every morning July 20, 2023 12:00am September 28, 2024 11:15pmStart: 02-12-2022 End: 39-23-0487scah 1 tablet by mouth once dailyConjugated Estrogens (Premarin) 0.625 mg tablet Discontinued 0.625 MG PO Daily February 12, 2022 12:00am July 20, 2023 8:47am End: 38-52-0628hdcrgwbop, conjugated (PREMARIN ORAL) Take by mouth. 10/12/2024 Discontinuedestrogens, conjugated (PREMARIN ORAL) Take by mouth. ActivePremarin Xqavcf98 hr guaiFENesin 600 mg extended release oral tablet (20 sources)Start: 07-26-2018 End: 71-53-0174vlos 1 tablet by mouth every twelve hours, then take 1 tablet by mouth every twelve hoursGuaifenesin (Mucinex) 600 mg tablet extended release 12hr Discontinued 600 MG PO Q12H May 11, 2019 1:00am March 24, 2021 12:39pmhydrOXYzine hydrochloride 25 mg oral tablet (20 sources)AntihistamineStart: 10-10-2024 End: 39-53-514641 mg, ORAL, NEEDED, 1 dose, Starting on Thu10/10/24 at 1221, Until Thu10/10/24 at 1231, Anxiety -First Line - EnteralStart: 25-30-3294oxip 1 tablet by mouth once daily at bedtime as needed for anxietyStart: 02-12-2022 End: 12-92-0526yjir 1 tablet by mouth once daily at bedtime as needed for anxietyHydroxyzine Hcl 25 mg tablet Discontinued 25 MG PO Daily at bedtime as needed for Anxiety February 12, 2022 12:00am October 04, 2023 3:48pmtake 1 capsule by mouth at bedtime as neededhydrOXYzine pamoate (VISTARIL) 50 mg capsule Take 1 Cap by mouth at bedtime as needed. Activetake 1 tablet by mouth every eight hourshydrOXYzine HCl 25 MG 1 tablet as needed Orally every 8 hrs Activeibuprofen 600 mg oral tablet (20 sources)Nonsteroidal Anti-inflammatory DrugStart: 12-23-2023 End: 49-06-3519ziwk 1 tablet by mouth every six hours as needed for pain Ibuprofen 600 mg tablet Discontinued 600 MG PO Q6H as needed for pain 27 09December 23, 2023 12:00am September 28, 2024 11:15pmStart: 06-26-2022 End: 04-01-7313owxl 1 tablet by mouth three times dailyIbuprofen 800 mg tablet Discontinued 800 MG PO Three times daily August 25, 2023 12:00am August 25, 2023 1:48pmiohexol (OMNIPAQUE) 350 MG/ML injection (1 source)Start: 07-09-2023 End: 78-70-3948ulondgg (OMNIPAQUE) 350 MG/ML injectionketorolac tromethamine 10 mg oral tablet (20 sources)Nonsteroidal Anti-inflammatory Drug, Cyclooxygenase InhibitorStart: 12-17-2024 End: 51-43-5978bmdo 1 tablet by mouth every six hours as neededkeTORolac (TORADOL) 10 mg tablet Take 1 tablet by mouth every 6 hours as needed for headache or pain. 30 tablet 12/17/2024 12/27/2024 Discontinued (Course of therapy completed)Start: 09-23-2024 End: 30-39-6297xrzo 1 tablet by mouth three times daily at mealtimekeTORolac (TORADOL) 10 mg tablet Indications: IIH (idiopathic intracranial hypertension) , Chronic migraine without aura without status migrainosus, not intractable Take 1 tablet by mouth three timesa day with meals for 5 days. Take with food. Do not take any OTC pain relievers while taking. 15 tablet 09/23/2024 09/28/2024 ActiveStart: 02-08-2024 End: 74-43-9107nwmg 1 tablet by mouth every six hours as needed for pain Ketorolac 10 mg tablet Discontinued 10 MG PO Q6H as needed for pain February 08, 2024 12:00amMa2024 5:08pmStart: 08-25-2023 End: 70-52-8770tgah 1 tablet by mouth every six hours as needed for pain Ketorolac 10 mg tablet Discontinued 10 MG PO Q6H as needed for pain August 25, 2023 12:00am 2023 3:48pmlamoTRIgine 25 mg oral tablet (20 sources)Mood Stabilizer, Anti-epileptic AgentStart: 03-24-2021 End: 49-66-6919qvem 1 tablet by mouth once dailyLamotrigine 25 mg tablet Discontinued 25 MG PO Daily March 24, 2021 1:00am February 12, 2022 10:53pm Start: 07-02-2018 End: 76-40-4531xtpp 1 tablet by mouth once dailyLamotrigine (Lamictal) 150 mg Tablet Discontinued 150 MG PO Daily July 02, 2018 1:00am July 07, 2018 9:29amloratadine 10 mg oral tablet (20 sources)Start: 07-07-2018 End: 24-75-7615Xpjkupmrrt (Claritin) 10 mg Tablet Discontinued 0 .ROUTE .COMPLEX July 07, 2018 1:00am March 24, 2021 12:39pm 10 mg yksikv776 ml magnesium sulfate 10 mg/ml injection (3 sources)Start: 10-10-2024 End: g, INTRAVENOUS, at 100-200 mL/hr, Administer over [...] the following indications: Adult and Pediatric Asthma Exacerbations,Tors[place] de Pointes, Pediatric BMT and Hematology/Oncology, Eclampsia or Preeclampsiamelatonin 10 mg extended release oral tablet (20 sources) End: 29-36-9345pwoizwrud 10 mg TbER Take by mouth. 0 09/29/2023 Discontinued Melatonin 5 MG as directed Orally PRN ActiveMelatonin 5 MG as directed Orally PRN ActiveComment on above:Take by mouth.methocarbamol iv infusion 1,000 mg in NaCl 0.9% 100 mL (ROBAXIN) (3 sources)Start: 10-12-2024 End: ,000 mg, INTRAVENOUS, Administer over 30 Minutes, ONCE, 1 dose, On Thu10/12/24 at 1030, Administer IV while in recumbent position. Maintain position for at least 10-15 minutes following infusion.Start: 10-11-2024 End: ,000 mg, INTRAVENOUS, Administer over 30 Minutes, ONCE, 1 dose, On Thu10/11/24 at 1100, Administer IV while in recumbent position. Maintain position for at least 10-15 minutes following infusion.Start: 10-10-2024 End: ,000 mg, INTRAVENOUS, Administer over 30 Minutes, ONCE, 1 dose, On Thu10/10/24 at 1130, Administer IV while in recumbent position. Maintain position for at least 10-15 minutes following infusion.naproxen 500 mg oral tablet (20 sources)Nonsteroidal Anti-inflammatory DrugStart: 05-20-2024 End: 59-56-0782rbzn 1 tablet by mouth every twelve hours as needednaproxen (NAPROSYN) 500 mg tablet Take 1 tablet by mouth two times a day as needed for pain. FOR PAIN. TAKE WITH FOOD. 60 tablet 2 05/20/2024 06/14/2024 Discontinued Start: 07-02-2018 End: 37-02-9704huoq 1 tablet by mouth twice daily as needed for painNaproxen 500 mg Tablet Discontinued 500 MG PO Twice daily as needed for Pain July 02, 2018 1:00am May 11, 2019 11:09amStart: 10-05-2017 End: 75-08-6913ukgv 1 tablet by mouth twice daily as needed for painNaproxen (Naprosyn) 500 mg tablet Discontinued 500 MG PO Twice daily as needed for pain October 05, 2017 12:00am December 18, 2017 10:05pm administer with food or milk Start: 07-05-2017 End: 59-58-8484dwyy 1 tablet by mouth twice daily as needed for painNaproxen 500 mg tablet Discontinued 500 MG PO Twice daily as needed for pain July 05, 20171:00am July 17, 2017 3:35pm administer with food or milk24 hr nicotine 0.875 mg/hr transdermal system (20 sources)Cholinergic Nicotinic AgonistStart: 03-24-2021 End: 24-98-5819zdyba 1 dose transdermal route every twenty-four hoursNicotine 21 mg/24 hr patch 24 hour Discontinued 1 PATCH TRANSDERML Daily March 24, 2021 1:00amFebruary 12, 2022 10:53pmStart: 03-24-2021 End: 16-30-5161diyxb 1 dose transdermal route once dailyNicotine Discontinued 1 PATCH TRANSDERML Daily March 24, 2021 1:00am February 12, 2022 10:53pm omeprazole 20 mg delayed release oral capsule (20 sources)Proton Pump InhibitorStart: 07-02-2018 End: 96-38-4275thkj 1 capsule by mouth once dailyOmeprazole 20 mg Capsule,Delayed Release(Dr/Ec) Discontinued 20 MG PO Daily July 02, 2018 1:00am July 07, 2018 9:29am2 ml ondansetron 2 mg/ml injection (20 sources)Serotonin-3 Receptor AntagonistStart: 10-11-2024 End: mg, INTRAVENOUS, ONCE, 1 dose, On Thu10/11/24 at 1100Start: 10-10-2024 End: mg, INTRAVENOUS, ONCE,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 on above:Order Comment: Specimen Type: BLOOD SPECIMENOrdering Facility: [facility] Address:[address] [place], [place] [address]Performed By: #### 32224-7 ####[facility] LABCLIA [id number] [address] STATES OF AMERICALymphocytes/100 WBC (Bld)55.2 %NormalTrumbull Regional Medical Center on above:Order Comment: Specimen Type: BLOOD SPECIMENOrdering Facility: [facility] Address:[address] [place], [place] [address]Performed By: #### 49050-4 ####[facility] LABCLIA [id number] [address] (RBC) [Entitic mass]31.7 pg Eprxyr07.0-34.0[facility] on above:Order Comment: Specimen Type: BLOOD SPECIMENOrdering Facility: [facility] Address:[address] [place], [place] [address]Performed By: #### 87750-3 ####[facility] LABCLIA [id number] [address] (RBC) [Mass/Vol]34.7 g/kTSqzeyo54.5-36.0[facility] on above:Order Comment: Specimen Type: BLOOD SPECIMENOrdering Facility: [facility] Address:[address] [place], [place] [address]Performed By: #### 83990-5 ####[facility] LABCLIA [id number] [place] [address] [place] AMERICAMCV (RBC) [Entitic vol]91.6 vXIzorba39.0-100.0[facility] on above: Order Comment: Specimen Type: BLOOD SPECIMENOrdering Facility: [facility] Address:[address] [place], [place] [address]Performed By: #### 55841- 8 ####[facility] LABCLIA [id number] [place] [address] [place] AMERICAMonocytes (Bld) [#/Vol]0.54 10*3/uLNormal<0.87 [facility] on above:Order Comment: Specimen Type: BLOOD SPECIMENOrdering Facility: [facility] Address:[address] [place], [place] [address]Performed By: #### 38833-9 ####[facility] LABCLIA [id number] [place] [address] [place] Monocytes/100 WBC (Bld)8.4 %NormalTrumbull Regional Medical Center on above: Order Comment: Specimen Type: BLOOD SPECIMENOrdering Facility: [facility] Address:[address] [place], [place] [address]Performed By: #### 64977- 8 ####[facility] LABCLIA [id number] [place] [address] [place] AMERICANeutrophils (Bld) [#/Vol]1.97 10*3/uLNormal 1.45-7.50[facility] on above:Order Comment: Specimen Type: BLOOD SPECIMENOrdering Facility: [facility] Address:[address] [place], [place] [address]Performed By: #### 67340-6 ####[facility] LABCLIA [id number] [place] [address] [place] AMERICANeutrophils/100 WBC (Bld)30.8 %NormalTrumbull Regional Medical Center on above:Order Comment: Specimen Type: BLOOD SPECIMENOrdering Facility: [facility] Address:[address] [place], [place] [address]Performed By: #### 23164-7 ####[facility] LABCLIA [id number] [place] [address] [place] AMERICANucleated RBC (Bld) [#/Vol] 10*3/uLNormal<0.01[facility] on above:Order Comment: Specimen Type: BLOOD SPECIMENOrdering Facility: [facility] Address:[address] [place], [place] [address]Performed By: #### 70342-5 ####[facility] LABCLIA [id number] [place] [address] [place] AMERICANucleated RBC/100 WBC (Bld) [Ratio]0.0 /100 WBCNormal [facility] on above:Order Comment: Specimen Type: BLOOD SPECIMENOrdering Facility: [facility] Address:[address] [place], [place] [address]Performed By: #### 74315-9 ####[facility] LABCLIA [id number] [place] [address] [place] AMERICAPlatelet mean volume (Bld) [Entitic vol]9.6 fLNormal9.0-12.7CMercy Health St[facility] Comment on above:Order Comment: Specimen Type: BLOOD SPECIMENOrdering Facility: [facility] Address:[address] [place] [address] Performed By: #### 88577-7 ####[facility] LABCLIA [id number] [place] [address] [place] AMERICAPlatelets (Bld) [#/Vol] 305 10*3/vXOqjjua238-151ExfwufekcTrumbull Regional Medical Center on above:Order Comment: Specimen Type: BLOOD SPECIMENOrdering Facility: [facility] Address:[address] [place], [place] [address]Performed By: #### 37137- 8 ####[facility] LABCLIA [id number] [address] STATES OF AMERICARBC (Bld) [#/Vol]4.38 10*6/uLNormal3.90-5.20 [facility] on above:Order Comment: Specimen Type: BLOOD SPECIMENOrdering Facility: [facility] Address:[address] [place], [place] [address]Performed By: #### 67765-3 ####[facility] LABCLIA [id number] [address] OF AMERICAWBC (Bld) [#/Vol]6.41 10*3/uLNormal3.70-11.00[facility] on above: Order Comment: Specimen Type: BLOOD SPECIMENOrdering Facility: [facility] Address:[address] [place], [place] [address]Performed By: #### 27352- 8 ####[facility] LABIA [id number] [address] OF AMERICACNDSon 04-38-6806CRFDYcokgqBqsqvkone Clinic ClevelandComprehensive metabolic 2000 panelon 73-52-5337Uiajiiu [Mass/Vol]4.2 g/dLNormal3.9-4.9CDayton [facility]'s Hospital on above:Order Comment: Specimen Type: BLOOD SPECIMENOrdering Facility: [facility] Address:[address] [place], [place] [address]Performed By: #### 14462-8 ####[facility] LABCLIA [id number] [place] [address] [place] AMERICAALP [Catalytic activity/Vol]77 U/HEyamnl19-616SxhcspklfTrumbull Regional Medical Center on above:Order Comment: Specimen Type: BLOOD SPECIMENOrdering Facility: [facility] Address:[address] [place], [place] [address]Performed By: #### 26629-9 ####[facility] LABIA [id number] [place] [address] [place] AMERICAALT [Catalytic activity/Vol]68 U/LHigh7-38[facility] on above:Order Comment: Specimen Type: BLOOD SPECIMENOrdering Facility: [facility] Address:[address] [place], [place] [address]Performed By: #### 69221-7 ####[facility] LABCLIA [id number] [place] [address] [place] AMERICAAnion gap [Moles/Vol]13 mmol/LNormal8-15 [facility] on above:Order Comment: Specimen Type: BLOOD SPECIMENOrdering Facility: [facility] Address:[address] [place], [place] [address]Performed By: #### 19739-6 ####[facility] LABCLIA [id number] [place] [address] [place] AMERICAAST [Catalytic activity/Vol]38 U/CLszq55-04ScjfxntrtTrumbull Regional Medical Center on above:Order Comment: Specimen Type: BLOOD SPECIMENOrdering Facility: [facility] Address:[address] [place], [place] [address]Performed By: #### 32787-0 ####[facility] LABCLIA [id number] [place] [address] [place] AMERICABilirubin [Mass/Vol]0.4 mg/dLNormal0.2-1.3 [facility] on above:Order Comment: Specimen Type: BLOOD SPECIMENOrdering Facility: [facility] Address:[address] [place], [place] [address]Performed By: #### 48215-0 ####[facility] LABCLIA [id number] [place] [address] [place] AMERICACalcium [Mass/Vol]9.4 mg/dLNormal8.5-10.2CDayton Children's Hospital on above: Order Comment: Specimen Type: BLOOD SPECIMENOrdering Facility: [facility] Address:[address] [place], [place] [address]Performed By: #### 57598- 8 ####[facility] LABCLIA [id number] [place] [address] [place] AMERICAChloride [Moles/Vol]103 mmol/XFxszds60-515 [facility] on above:Order Comment: Specimen Type: BLOOD SPECIMENOrdering Facility: [facility] Address:[address] [place], [place] [address]Performed By: #### 40357-4 ####[facility] LABCLIA [id number] [place] [address] [place] AMERICACO2 [Moles/Vol]23 mmol/NTlmslt53-30YrynguvtbTrumbull Regional Medical Center on above:Order Comment: Specimen Type: BLOOD SPECIMENOrdering Facility: [facility] Address:[address] [place], [place] [address]Performed By: #### 71421- 8 ####[facility] LABCLIA [id number] [place] [address] [place] AMERICACreatinine [Mass/Vol]0.88 mg/dLNormal0.58-0.96 [facility] on above:Order Comment: Specimen Type: BLOOD SPECIMENOrdering Facility: [facility] Address:[address] [place], [place] [address]Performed By: #### 94523-7 ####[facility] LABCLIA [id number] [place] [address] [place] AMERICAeGFRcr SerPlBld CKD-EPI 765799 mL/min/1.73m???Normal>=60[facility] Comment on above:Order Comment: Specimen Type: BLOOD SPECIMENOrdering Facility: [facility] Address:[address] [place], [place] [address]Result Comment: Estimated Glomerular Filtration Rate (eGFR) is calculated using the 2020 CKD-EPI creatinine equation. This equation utilizes serum creatinine, sex, and age as parameters. The creatinine assay has traceable calibration to isotope dilution-mass spectrometry. Refer to KDIGO guidelines for clinical interpretation. In patients with unstable renal function, e.g. those with acute kidney injury, the eGFR may not accurately reflect actual GFR.Performed By: #### 77276-2 ####[facility] LABCLIA [id number] [place] [address] [place] AMERICAGlucose [Mass/Vol]94 mg/dL Jetqnp64-64QjmrqbhizTrumbull Regional Medical Center on above:Order Comment: Specimen Type: BLOOD SPECIMENOrdering Facility: [facility] Address:[address] [place], [place] [address]Result Comment: The [place] [employer] (ADA) provides guidance for cutoff values for fasting glucose and random glucose. The ADA defines fasting as no caloric intake for at least 8 hours. F asting plasma glucose results between 100 to 125 mg/dL indicate increased risk for diabetes (prediabetes).Fasting plasma glucose results greater than or equal to 126 mg/dL meet the criteria for diagnosis of diabetes. In the absence of unequivocal hyperglycemia, results should be confirmed by repeattesting. In a patient with classic symptoms of hyperglycemia or hyperglycemic crisis, random plasmaglucose results greater than or equal to 200 mg/dL meet the criteria for diagnosis of diabetes.Reference: Standards of Medical Care in Diabetes 2016, [place] [employer]. Diabetes Care. 2016.39(Suppl 1).Performed By: #### 99362-8 ####[facility] LABCLIA [id number] [place] [address] [place] AMERICAPotassium [Moles/Vol]3.9 mmol/L Normal3.7-5.1CDayton Children's Hospital on above:Order Comment: Specimen Type: BLOOD SPECIMENOrdering Facility: [facility] Address:[address] [place], [place] [address]Performed By: #### 00197-4 ####[facility] LABCLIA [id number] [place] [address] [place] AMERICAProtein [Mass/Vol]6.3 g/dLNormal6.3-8.0[facility] on above:Order Comment: Specimen Type: BLOOD SPECIMENOrdering Facility: [facility] Address:[address] [place] [address] Performed By: #### 65259-6 ####[facility] LABIA [id number] [place] [address] [place] MARTIN MEMORIAL HOSPITALSodium [Moles/Vol]139 mmol/NAvbojw974-439RaunjykxyTrumbull Regional Medical Center on above:Order Comment: Specimen Type: BLOOD SPECIMENOrdering Facility: [facility] Address:[address] [place], [place] [address]Performed By: #### 70970-2 ####[facility] LABCLIA [id number] [place] [address] [place] AMERICAUrea nitrogen [Mass/Vol]14 mg/dLNormal11-28[facility] on above:Order Comment: Specimen Type: BLOOD SPECIMENOrdering Facility: [facility] Address:[address] [place], [place] [address]Performed By: #### 81463-9 ####[facility] LABCLIA [id number] [place] [address] [place] MARTIN MEMORIAL HOSPITALTHERAPY NTon 72-68-7493ZUFDSUC NTNormalCAkron Children's Hospital HEALTHon 64-85-4580LZBKPC HEALTHNormalCAkron Children's Hospital HEALTHNormal [facility] W Auto Differential panel (Bld)on 02-28-2025 Basophils (Bld) [#/Vol]0.04 10*3/uLNormal<0.11CDayton Children's Hospital on above:Order Comment: Specimen Type: BLOOD SPECIMENOrdering Facility: [facility] Address:[address] [place] [address] Performed By: #### 91278-1, 4537-7 ####[facility] LABCLIA [id number] [place] [address] [place] Basophils/100 WBC (Bld)0.7 %NormalTrumbull Regional Medical Center on above: Order Comment: Specimen Type: BLOOD SPECIMENOrdering Facility: [facility] Address:[address] [place], [place] [address]Performed By: #### 01586- 8, 4537-7 ####[facility] LABCLIA [id number] [place] [address] [place] AMERICADifferential cell count method Nom (Bld)AutoNormalCDayton Children's Hospital on above:Order Comment: Specimen Type: BLOOD SPECIMENOrdering Facility: [facility] Address:[address] [place], [place] [address]Performed By: #### 06773-9, 4536-11 ####[facility] LABCLIA [id number] [place] [address] [place] MARTIN MEMORIAL HOSPITALEosinophils (Bld) [#/Vol]0.26 10*3/uLNormal<0.46 [facility] on above:Order Comment: Specimen Type: BLOOD SPECIMENOrdering Facility: [facility] Address:[address] [place], [place] [address]Performed By: #### 69253-3, 4536-11 ####[facility] LABCLIA [id number] [place] [address] [place] Eosinophils/100 WBC (Bld)4.4 %NormalTrumbull Regional Medical Center on above: Order Comment: Specimen Type: BLOOD SPECIMENOrdering Facility: [facility] Address:[address] [place], [place] [address]Performed By: #### 18095- 8, 4536-11 ####[facility] LABCLIA [id number] [place] [address] [place] AMERICAErythrocyte distribution width (RBC) [Ratio]11.3 %Low11.5-15.0[facility] on above:Order Comment: Specimen Type: BLOOD SPECIMENOrdering Facility: [facility] Address:[address] [place], [place] [address]Performed By: #### 59952- 8, 4536-11 ####[facility] LABCLIA [id number] [place] [address] [place] AMERICAHematocrit (Bld) [Volume fraction]35.2 %Low36.0-46.0[facility] on above:Order Comment: Specimen Type: BLOOD SPECIMENOrdering Facility: [facility] Address:[address] [place], [place] [address]Performed By: #### 88348-5, 4536-7 ####[facility] LABCLIA [id number] [place] [address] [place] AMERICAHemoglobin (Bld) [Mass/Vol]12.7 g/dKYnihem37.5-15.5CDayton Children's Hospital on above:Order Comment: Specimen Type: BLOOD SPECIMENOrdering Facility: [facility] Address:[address] [place], [place] [address]Performed By: #### 45124-0, 7 ####[facility] LABCLIA [id number] [place] [address] [place] Immature granulocytes (Bld) [#/Vol]10*3/uLNormal<0.10[facility] Comment on above:Order Comment: Specimen Type: BLOOD SPECIMENOrdering Facility: [facility] Address:[address] [place] [address] Performed By: #### 47072-4, 7 ####[facility] LABCLIA [id number] [place] [address] [place] AMERICAImmature granulocytes/100 WBC (Bld)0.2 %NormalTrumbull Regional Medical Center on above:Order Comment: Specimen Type: BLOOD SPECIMENOrdering Facility: [facility] Address:[address] [place], [place] [address]Performed By: #### 35545-8, 7 ####[facility] LABCLIA [id number] [place] [address] [place] AMERICALymphocytes (Bld) [#/Vol]3.40 10*3/uLNormal1.00-4.00[facility] on above:Order Comment: Specimen Type: BLOOD SPECIMENOrdering Facility: [facility] Address:[address] [place], [place] [address]Performed By: #### 57972-3, 4536-7 ####[facility] LABCLIA [id number] [place] [address] [place] MARTIN MEMORIAL HOSPITALLymphocytes/100 WBC (Bld)57.0 %NormalTrumbull Regional Medical Center on above:Order Comment: Specimen Type: BLOOD SPECIMENOrdering Facility: [facility] Address:[address] [place], [place] [address]Performed By: #### 80503-8, 4536-7 ####[facility] LABCLIA [id number] [place] [address] [place] MCH (RBC) [Entitic mass]31.6 bsWuioow05.0-34.0[facility] on above:Order Comment: Specimen Type: BLOOD SPECIMENOrdering Facility: [facility] Address:[address] [place] [address] Performed By: #### 20273-9, 7 ####[facility] LABCLIA [id number] [address] STATES OF MARTIN MEMORIAL HOSPITALMCHC (RBC) [Mass/Vol]36.1 g/bOVisj96.5-36.0[facility] on above:Order Comment: Specimen Type: BLOOD SPECIMENOrdering Facility: [facility] Address:[address] [place], [place] [address]Performed By: #### 23164-8, 7 ####[facility] LABCLIA [id number] [place] [address] [place] MARTIN MEMORIAL HOSPITALMCV (RBC) [Entitic vol]87.6 fL Hrtsrb28.0-100.0[facility] on above:Order Comment: Specimen Type: BLOOD SPECIMENOrdering Facility: [facility] Address:[address] [place], [place] [address]Performed By: #### 33002-8, 7 ####[facility] LABCLIA [id number] [place] [address] [place] AMERICAMonocytes (Bld) [#/Vol]0.48 10*3/uLNormal<0.87 [facility] on above:Order Comment: Specimen Type: BLOOD SPECIMENOrdering Facility: [facility] Address:[address] [place], [place] [address]Performed By: #### 87976-8, 4536-11 ####[facility] LABCLIA [id number] [place] [address] [place] Monocytes/100 WBC (Bld)8.1 %NormalTrumbull Regional Medical Center on above: Order Comment: Specimen Type: BLOOD SPECIMENOrdering Facility: [facility] Address:[address] [place], [place] [address]Performed By: #### 82860- 8, 4536-11 ####[facility] LABCLIA [id number] [place] [address] [place] AMERICANeutrophils (Bld) [#/Vol]1.77 10*3/uL Normal1.45-7.50[facility] on above:Order Comment: Specimen Type: BLOOD SPECIMENOrdering Facility: [facility] Address:[address] [place], [place] [address]Performed By: #### 02167-9, 4536-11 ####[facility] LABCLIA [id number] [place] [address] [place] AMERICANeutrophils/100 WBC (Bld)29.6 %NormalTrumbull Regional Medical Center on above:Order Comment: Specimen Type: BLOOD SPECIMENOrdering Facility: [facility] Address:[address] [place], [place] [address]Performed By: #### 15685-3, 4536-11 ####[facility] LABCLIA [id number] [place] [address] [place] Nucleated RBC (Bld) [#/Vol]10*3/uLNormal<0.01[facility] on above:Order Comment: Specimen Type: BLOOD SPECIMENOrdering Facility: [facility] Address:[address] [place] [address] Performed By: #### 97281-7, 4536-11 ####[facility] LABCLIA [id number] [place] [address] [place] Nucleated RBC/100 WBC (Bld) [Ratio]0.0 /[address] [facility] Comment on above:Order Comment: Specimen Type: BLOOD SPECIMENOrdering Facility: [facility] Address:[address] [place] [address] Performed By: #### 63952-4, 4536-7 ####[facility] LABCLIA [id number] [place] [address] [place] AMERICAPlatelet mean volume (Bld) [Entitic vol]9.4 fLNormal9.0-12.7CMercy Health St[facility] Comment on above:Order Comment: Specimen Type: BLOOD SPECIMENOrdering Facility: [facility] Address:[address] [place] [address] Performed By: #### 12088-4, 7 ####[facility] LABCLIA [id number] [place] [address] [place] Platelets (Bld) [#/Vol]273 10*3/vBLjsjqm707-976LyuorcxddOhiohealth Grant Medical CenterComment on above:Order Comment: Specimen Type: BLOOD SPECIMENOrdering Facility: [facility] Address:[address] [place] [address] Performed By: #### 96130-0, 7 ####[facility] LABCLIA [id number] [place] [address] [place] AMERICARBC (Bld) [#/Vol]4.02 10*6/uLNormal3.90-5.20[facility] Grant Medical CenterComment on above:Order Comment: Specimen Type: BLOOD SPECIMENOrdering Facility: [facility] Address:[address] [place], [place] [address]Performed By: #### 96168-4, 7 ####[facility] LABCLIA [id number] [place] [address] [place] AMERICAWBC (Bld) [#/Vol]5.96 10*3/uL Normal3.70-11.00[facility] on above:Order Comment: Specimen Type: BLOOD SPECIMENOrdering Facility: [facility] Address:[address] [place], [place] [address]Performed By: #### 19069-3, 4536-11 ####[facility] LABCLIA [id number] [place] [address] [place] AMERICACONSULTon 28-92-0669LWSKCXTElfgwrHccycuhrt Clinic ClevelandCRP SerPl-mCncon 05-19-9536JQB [Mass/Vol]mg/LNormal<0.9CDayton Children's Hospital on above:Order Comment: Specimen Type: BLOOD SPECIMENOrdering Facility: [facility] Address:[address] [place], [place] [address]Performed By: #### 07717-8, 1987-09 ####[facility] LABCLIA [id number] [place] [address] [place] AMERICACSF MANUAL DIFFon 52-77-5221TAA TTL, LFQ480 cells countedNormMercy Health [facility]ard Hospital on above:Order Comment: Specimen Type: CEREBROSPINAL FLUID SPECIMENOrdering Facility: [facility] Address: [address] [place], [place] [address]Performed By: #### 40357-8, [id number], FCLLP ####[facility] LABCLIA [id number] [place] [address] [place] AMERICALYMPH%, CSF74 %Qmkchf04-04UajwwodezTrumbull Regional Medical Center on above:Order Comment: Specimen Type: CEREBROSPINAL FLUID SPECIMENOrdering Facility: [facility] Address: [address] [place], [place] [address]Performed By: #### 66983-3, [id number], FCLLP ####[facility] LABCLIA [id number] [place] [address] [place] MONOCYTES/MACROPHAGES %, CSF26 %Dpubla25-58NwunntqjzTrumbull Regional Medical Center on above:Order Comment: Specimen Type: CEREBROSPINAL FLUID SPECIMENOrdering Facility: [facility] Address: [address] [place], [place] [address]Performed By: #### 85287-5, [id number], FCLLP ####[facility] LABCLIA [id number] [place] [address] [place] Cell count panel (CSF)on 68-10-2169Zrryyca (CSF)ClearNormalClearOhiohealth Grant Medical CenterComment on above:Order Comment: Specimen Type: CEREBROSPINAL FLUID SPECIMENOrdering Facility: [facility] Address: [address] [place], [place] [address]Performed By: #### 04145-2, [id number], FCLLP ####[facility] LABCLIA [id number] [place] [address] [place] AMERICAClarity (Unsp spec)Not IndicatedNormGenesis Hospital on above:Order Comment: Specimen Type: CEREBROSPINAL FLUID SPECIMENOrdering Facility: [facility] Address: [address] [place], [place] [address]Performed By: #### 98899-1, [id number], FCLLP ####[facility] LABCLIA [id number] [place] [address] [place] AMERICAColor (CSF)ColorlessNormFort Hamilton Hospital Comment on above:Order Comment: Specimen Type: CEREBROSPINAL FLUID SPECIMENOrdering Facility: [facility] Address: [address] [place], [place] [address]Performed By: #### 87501-0, [id number], FCLLP ####[facility] LABCLIA [id number] [place] [address] [place] AMERICAColor (Spun CSF)Not IndicatedNormalColorProvidence Hospital on above:Order Comment: Specimen Type: CEREBROSPINAL FLUID SPECIMENOrdering Facility: [facility] Address: [address] [place], [place] [address]Performed By: #### 75680-5, [id number], FCLLP ####[facility] LABCLIA [id number] [place] [address] [place] [facility] HOSPITALCSF TUBE NUMBERSterile ContainerNormalCDayton Children's Hospital on above:Order Comment: Specimen Type: CEREBROSPINAL FLUID SPECIMENOrdering Facility: [facility] Address: [address] [place], [place] [address]Performed By: #### 32456-7, [id number], FCLLP ####[facility] LABCLIA [id number] [address] Manual cnt (CSF) [#/Vol]0 cells/uLNormal0-5CDayton Children's Hospital on above:Order Comment: Specimen Type: CEREBROSPINAL FLUID SPECIMENOrdering Facility: [facility] Address: [address] [place], [place] [address]Performed By: #### 85527-8, [id number], FCLLP ####[facility] LABCLIA [id number] [address] [facility] Manual cnt (CSF) [#/Vol]1 cells/uLNormal0-5CDayton Children's Hospital on above:Order Comment: Specimen Type: CEREBROSPINAL FLUID SPECIMENOrdering Facility: [facility] Address: [address] [place], [place] [address]Performed By: #### 59113-4, [id number], FCLLP ####[facility] LABCLIA [id number] [place] [address] [place] AMERICAComprehensive metabolic 2000 panelon 00-91-4815Occzahj [Mass/Vol]3.9 g/dLNormal3.9-4.9CDayton Children's Hospital on above:Order Comment: Specimen Type: BLOOD SPECIMENOrdering Facility: [facility] Address:[address] [place], [place] [address]Performed By: #### 63440- 8, 1987-09 ####[facility] LABCLIA [id number] [place] [address] [place] AMERICAALP [Catalytic activity/Vol]79 U/L Uziiid47-496GomjbeckvTrumbull Regional Medical Center on above:Order Comment: Specimen Type: BLOOD SPECIMENOrdering Facility: [facility] Address:[address] [place], [place] [address]Performed By: #### 84400-0, 1987-09 ####[facility] LABCLIA [id number] [place] [address] [place] AMERICAALT [Catalytic activity/Vol]66 U/LHigh7-38[facility] on above:Order Comment: Specimen Type: BLOOD SPECIMENOrdering Facility: [facility] Address:[address] [place], [place] [address]Performed By: #### 80640-2, 1987-09 ####[facility] LABCLIA [id number] [place] [address] [place] AMERICAAnion gap [Moles/Vol]13 mmol/LNormal8-15The Surgical Hospital at Southwoodsment on above: Order Comment: Specimen Type: BLOOD SPECIMENOrdering Facility: [facility] Address:[address] [place], [place] [address]Performed By: #### 57815- 8, 1987-09 ####[facility] LABCLIA [id number] [place] [id number] [place] AMERICAAST [Catalytic activity/Vol]41 U/LHigh 13-35[facility] on above:Order Comment: Specimen Type: BLOOD SPECIMENOrdering Facility: [facility] Address:[address] [place], [place] [address]Performed By: #### 06607-3, 1987-09 ####[facility] LABCLIA [id number] [place] [address] [place] AMERICABilirubin [Mass/Vol]0.4 mg/dLNormal0.2-1.3CMercy Health St. [facility] Comment on above:Order Comment: Specimen Type: BLOOD SPECIMENOrdering Facility: [facility] Address:[address] [place], [place] [address] Performed By: #### 00256-3, 1987-09 ####[facility] LABCLIA [id number] [place] [address] [place] AMERICACalcium [Mass/Vol]9.0 mg/dLNormal8.5-10.2CDayton Children's Hospital on above: Order Comment: Specimen Type: BLOOD SPECIMENOrdering Facility: [facility] Address:[address] [place], [place] [address]Performed By: #### 00245- 8, 1987-09 ####[facility] LABCLIA [id number] [place] [address] [place] AMERICAChloride [Moles/Vol]103 mmol/LNormal 98-107[facility] on above:Order Comment: Specimen Type: BLOOD SPECIMENOrdering Facility: [facility] Address:[address] [place], [place] [address]Performed By: #### 05315-8, 1987-09 ####[facility] LABCLIA [id number] [place] [address] [place] AMERICACO2 [Moles/Vol]23 mmol/MMfnoqu26-48FoxcrigedTrumbull Regional Medical Center on above:Order Comment: Specimen Type: BLOOD SPECIMENOrdering Facility: [facility] Address:[address] [place], [place] [address]Performed By: #### 78352-1, 1987-09 ####[facility] LABCLIA [id number] [place] [address] [place] AMERICACreatinine [Mass/Vol]0.91 mg/dLNormal0.58-0.96[facility] on above:Order Comment: Specimen Type: BLOOD SPECIMENOrdering Facility: [facility] Address:[address] [place], [place] [address]Performed By: #### 27155-2, 1987-09 ####[facility] LABCLIA [id number] [place] [id number] [place] AMERICAeGFRcr SerPlBld CKD-EPI 781416 mL/min/1.73m??? Normal>=60[facility] on above:Order Comment: Specimen Type: BLOOD SPECIMENOrdering Facility: [facility] Address:[address] [place], [place] [address]Pqcdqr Comment: Estimated Glomerular Filtration Rate (eGFR) is calculated using the 2020 CKD-EPI creatinine equation. This equation utilizes serum creatinine, sex, and age as parameters. The creatinine assay has traceable calibration to isotope dilution-mass spectrometry. Refer to KDIGO guidelines for clinical interpretation. In patients with unstable renal function, e.g. those with acute kidney injury, the eGFR may not accurately reflect actual GFR.Performed By: #### 17960-8, 1987-09 ####[facility] LABIA [id number] [place] [id number] [place] Glucose [Mass/Vol]113 mg/rKMqls37-08BwclwnmdzTrumbull Regional Medical Center on above: Order Comment: Specimen Type: BLOOD SPECIMENOrdering Facility: [facility] Address:[address] [place], [place] [address]Result Comment: The [place] Diabetes Association (ADA) provides guidance for cutoff values for fast ing glucose and random glucose. The ADA defines fasting as no caloric intake for at least 8 hours. Fasting plasma glucose results between 100 to 125 mg/dL indicate increased risk for diabetes (prediabetes).Fasting plasma glucose results greater than or equal to 126 mg/dL meet the criteria for diagnosis of diabetes. In the absence of unequivocal hyperglycemia, results should be confirmed by repeattesting. In a patient with classic symptoms of hyperglycemia or hyperglycemic crisis, random plasmaglucose results greater than or equal to 200 mg/dL meet the criteria for diagnosis of diabetes.Reference: Standards of Medical Care in Diabetes 2016, [place] Diabetes Association. Diabetes Care. 2016.39(Suppl 1).Performed By: #### 50133-9, 1987-09 ####[facility] LABIA [id number] [place] [id number] [place] Potassium [Moles/Vol]3.9 mmol/LNormal3.7-5.1CDayton Children's Hospital on above:Order Comment: Specimen Type: BLOOD SPECIMENOrdering Facility: [facility] Address:[address] [place], [place] [address]Performed By: #### 00862-1, 1987-09 ####[facility] LABCLIA [id number] [place] [address] [place] AMERICAProtein [Mass/Vol]5.9 g/dLLow 6.3-8.0[facility] on above:Order Comment: Specimen Type: BLOOD SPECIMENOrdering Facility: [facility] Address:[address] [place], [place] [address]Performed By: #### 08037-0, 1987-09 ####[facility] LABCLIA [id number] [place] [address] [place] MARTIN MEMORIAL HOSPITALSodium [Moles/Vol]139 mmol/KUioarx919-988JindmocqaOhiohealth Grant Medical Center Comment on above:Order Comment: Specimen Type: BLOOD SPECIMENOrdering Facility: [facility] Address:[address] [place] [address] Performed By: #### 06057-7, 1987-09 ####[facility] LABCLIA [id number] [place] [address] [place] AMERICAUrea nitrogen [Mass/Vol]13 mg/dLNormal7-21[facility] on above: Order Comment: Specimen Type: BLOOD SPECIMENOrdering Facility: [facility] Address:[address] [place], [place] [address]Performed By: #### 00671- 8, 1987-09 ####[facility] LABCLIA [id number] [place] [address] [place] MARTIN MEMORIAL HOSPITALESR Westergren method (Bld) [Velocity] on 11-15-4253SIW (Bld) [Velocity]13 mm/hNormal0-20[facility] Comment on above:Order Comment: Specimen Type: BLOOD SPECIMENOrdering Facility: [facility] Address:[address] [place] [address] Performed By: #### 84762-6, 4537-7 ####[facility] LABCLIA [id number] [place] [address] [place] MARTIN MEMORIAL HOSPITALFLOW CYTOMETRY FOR LEUKEMIA/LYMPHOMA (FCLL) PERFORMABLEon 08-54-0006EWWR CYTOMETRY ORDER STATUSA???sample was received for potential flow cytometry studies. Following morphologic review, flow cytometric studies will be ordered by the hematopathologist if testing is indicated.NormalOhiohealth Grant Medical Center Comment on above:Order Comment: Specimen Type: CEREBROSPINAL FLUID SPECIMENOrdering Facility: [facility] Address: [address] [place], [place] [address]Performed By: #### 58667-4, [id number], FCLLP ####[facility] LABCLIA [id number] [place] [address] [place] AMERICAGlucose CSF-mCncon 75-83-8563Rmqrdsa (CSF) [Mass/Vol]57 mg/dL Daerob12-80VfoheigezOhiohealth Grant Medical CenterComment on above:Order Comment: Specimen Type: CEREBROSPINAL FLUID SPECIMENOrdering Facility: [facility] Address: [address] [place], [place] [address]Result Comment: Lumbar CSF glucose values of healthy patients are approximately 60% of the plasma values and must always be compared with a concurrently measured plasma value for adequate clinical interpretation.References: 1. Glucose HK (GLUC3) [package insert V 12.0 Greek]. [employer], [place], [place]. September 2015. 2. Angela Zarate, Jojo, H. (2015). Chapter 7: Glucose and Lactate. Mario Cordero al.(eds.), Cerebrospinal Fluid in Clinical Neurology. [place]: [employer].Performed By: #### 2342-4, 2880-3, MAKIS ####[facility] LABCLIA [id number] [place] [address] [place] MRI ORBIT WO/W IVCONon 26-90-2358CGA ORBIT WO/W IVCONNormalOhiohealth Grant Medical CenterNURSING PROGon 18-32-1591TCRCSXN PROGNormalOhiohealth Grant Medical Center NURSING PROGNormalOhiohealth Grant Medical CenterProt CSF-mCncon 03-97-6034Frutsvc (CSF) [Mass/Vol]38 mg/cHOvslut60-62ZxjhworsoTrumbull Regional Medical Center on above: Order Comment: Specimen Type: CEREBROSPINAL FLUID SPECIMENOrdering Facility: [facility] Address: [address] [place] [address] Performed By: #### 2342-4, 2880-3, MAKITCSF ####[facility] LABCLIA [id number] [place] [id number] [place]OU[place]TE CSFon 79-26-4233Uchkblr (CSF) [Mass/Vol]24.4 mg/sVKygrnv86.0-30.0 [facility] on above:Order Comment: Specimen Type: CEREBROSPINAL FLUID SPECIMENOrdering Facility: [facility] Address: [address] [place], [place] [address]Performed By: #### 2342-4, 2880-3, JAMARSF ####[facility] LABCLIA [id number] [place] [address] [place] AMERICAAlbumin [Mass/Vol]4300 mg/lWCjdjfv4086-4543 [facility] on above:Order Comment: Specimen Type: CEREBROSPINAL FLUID SPECIMENOrdering Facility: [facility] Address: [address] [place], [place] [address]Performed By: #### 2342-4, 2880-3, MAKISF ####[facility] LABCLIA [id number] [place] [address] [place] AMERICAIgG (CSF) [Mass/Vol]1.6 mg/dLNormal1.0-3.0 [facility] on above:Order Comment: Specimen Type: CEREBROSPINAL FLUID SPECIMENOrdering Facility: [facility] Address: [address] [place], [place] [address]Performed By: #### 2342-4, 2880-3, MAKITCSF ####[facility] LABCLIA [id number] [place] [address] [place] AMERICAIgG [Mass/Vol]645 mg/hFGtt670-4104CnytsvewgTrumbull Regional Medical Center on above:Order Comment: Specimen Type: CEREBROSPINAL FLUID SPECIMENOrdering Facility: [facility] Address: [address] [place], [place] [address]Performed By: #### 2342-4, 2880-3, TOURTCSF ####[facility] LABCLIA [id number] [address]Ig clearance/Albumin clearance (S+CSF) [Ratio]0.44 Normal0.00-0.61Ohiohealth Grant Medical CenterComment on above:Order Comment: Specimen Type: CEREBROSPINAL FLUID SPECIMENOrdering Facility: [facility] Address: [address] [place], [place] [address]Performed By: #### 2342- 4, 2880-3, TOURTCSF ####[facility] LABIA [id number] [address]Ig synthesis rate Calc (S+CSF) [Mass/Time]0.0 mg/dayNormal0.0-3.0[facility] on above:Order Comment: Specimen Type: CEREBROSPINAL FLUID SPECIMENOrdering Facility: [facility] Address: [address] [place], [place] [address]Performed By: #### 2342-4, 2880-3, TOURTCSF ####[facility]IA [id number] [address] STATES [facility] IgG/Albumin (CSF) [Mass ratio]0.43Eldtfh0.06-0.17[facility] Comment on above:Order Comment: Specimen Type: CEREBROSPINAL FLUID SPECIMENOrdering Facility: [facility] Address: [address] [place], [place] [address]Performed By: #### 2342-4, 2880-3, TOURTCSF ####[facility] LABIA [id number] [address]CB W Auto Differential panel (Bld)on 23-28-0206Iazfcqreg (Bld) [#/Vol]0.04 10*3/uLNormal<0.11CDayton Children's Hospital on above:Order Comment: Specimen Type: BLOOD SPECIMENOrdering Facility: [facility] Address:[address] [place], [place] [address]Performed By: #### 27042- 8 ####[facility] LABCLIA [id number] [place] [address] [place] AMERICABasophils/100 WBC (Bld)0.6 %NormalTrumbull Regional Medical Center on above:Order Comment: Specimen Type: BLOOD SPECIMENOrdering Facility: [facility] Address:[address] [place], [place] [address]Performed By: #### 09315-3 ####[facility] LABCLIA [id number] [place] [address] [place] AMERICADifferential cell count method Nom (Bld)AutoNormalCDayton Children's Hospital on above:Order Comment: Specimen Type: BLOOD SPECIMENOrdering Facility: [facility] Address:[address] [place], [place] [address]Performed By: #### 97283- 8 ####[facility] LABCLIA [id number] [place] [address] [place] AMERICAEosinophils (Bld) [#/Vol]0.20 10*3/uLNormal<0.46 [facility] on above:Order Comment: Specimen Type: BLOOD SPECIMENOrdering Facility: [facility] Address:[address] [place], [place] [address]Performed By: #### 35606-4 ####[facility] LABCLIA [id number] [place] [address] [place] Eosinophils/100 WBC (Bld)3.1 %NormalTrumbull Regional Medical Center on above: Order Comment: Specimen Type: BLOOD SPECIMENOrdering Facility: [facility] Address:[address] [place], [place] [address]Performed By: #### 03126- 8 ####[facility] LABCLIA [id number] [place] [address] [place] AMERICAErythrocyte distribution width (RBC) [Ratio]11.3 % Low11.5-15.0[facility] on above:Order Comment: Specimen Type: BLOOD SPECIMENOrdering Facility: [facility] Address:[address] [place], [place] [address]Performed By: #### 42151-7 ####[facility] LABCLIA [id number] [place] [address] [place] AMERICAHematocrit (Bld) [Volume fraction]39.2 %Qyzunu95.0-46.0[facility] on above:Order Comment: Specimen Type: BLOOD SPECIMENOrdering Facility: [facility] Address:[address] [place], [place] [address]Performed By: #### 89347-0 ####[facility] LABIA [id number] [address] STATES OF AMERICAHemoglobin (Bld) [Mass/Vol]13.7 g/lLTcmpbo82.5-15.5CDayton Children's Hospital on above: Order Comment: Specimen Type: BLOOD SPECIMENOrdering Facility: [facility] Address:[address] [place], [place] [address]Performed By: #### 77937- 8 ####[facility] LABIA [id number] [place] [address] [place] AMERICAImmature granulocytes (Bld) [#/Vol]10*3/uLNormal <0.10[facility] on above:Order Comment: Specimen Type: BLOOD SPECIMENOrdering Facility: [facility] Address:[address] [place], [place] [address]Performed By: #### 53810-2 ####[facility] LABCLIA [id number] [place] [address] [place] Immature granulocytes/100 WBC (Bld)0.3 %NormalTrumbull Regional Medical Center on above:Order Comment: Specimen Type: BLOOD SPECIMENOrdering Facility: [facility] Address:[address] [place] [address] Performed By: #### 83208-1 ####[facility] LABCLIA [id number] [place] [address] [place] AMERICALymphocytes (Bld) [#/Vol]3.10 10*3/uLNormal1.00-4.00[facility] on above: Order Comment: Specimen Type: BLOOD SPECIMENOrdering Facility: [facility] Address:[address] [place], [place] [address]Performed By: #### 65530- 8 ####[facility] LABCLIA [id number] [place] [address] [place] AMERICALymphocytes/100 WBC (Bld)47.5 %NormalTrumbull Regional Medical Center on above:Order Comment: Specimen Type: BLOOD SPECIMENOrdering Facility: [facility] Address:[address] [place], [place] [address]Performed By: #### 93398-8 ####[facility] LABCLIA [id number] [address] (RBC) [Entitic mass]31.6 erFvzhxt08.0-34.0[facility] on above: Order Comment: Specimen Type: BLOOD SPECIMENOrdering Facility: [facility] Address:[address] [place], [place] [address]Performed By: #### 23204- 8 ####[facility] LABCLIA [id number] [place] [address] [place] [facility]ART[facility]IAL HOSPITALMCHC (RBC) [Mass/Vol]34.9 g/fCIkjhvy99.5-36.0 [facility] on above:Order Comment: Specimen Type: BLOOD SPECIMENOrdering Facility: [facility] Address:[address] [place], [place] [address]Performed By: #### 91748-2 ####[facility] LABCLIA [id number] [address] (RBC) [Entitic vol]90.5 eSJhsqey33.0-100.0[facility] on above: Order Comment: Specimen Type: BLOOD SPECIMENOrdering Facility: [facility] Address:[address] [place], [place] [address]Performed By: #### 31993- 8 ####[facility] LABCLIA [id number] [place] [address] [place] AMERICAMonocytes (Bld) [#/Vol]0.27 10*3/uLNormal<0.87 [facility] on above:Order Comment: Specimen Type: BLOOD SPECIMENOrdering Facility: [facility] Address:[address] [place], [place] [address]Performed By: #### 44664-4 ####[facility] LABCLIA [id number] [place] [address] [place] Monocytes/100 WBC (Bld)4.1 %[facility] on above: Order Comment: Specimen Type: BLOOD SPECIMENOrdering Facility: [facility] Address:[address] [place], [place] [address]Performed By: #### 89769- 8 ####[facility] LABCLIA [id number] [place] [address] [place] AMERICANeutrophils (Bld) [#/Vol]2.89 10*3/uLNormal 1.45-7.50[facility] on above:Order Comment: Specimen Type: BLOOD SPECIMENOrdering Facility: [facility] Address:[address] [place], [place] [address]Performed By: #### 42143-2 ####[facility] LABCLIA [id number] [place] [address] [place] AMERICANeutrophils/100 WBC (Bld)44.4 %NormalTrumbull Regional Medical Center on above:Order Comment: Specimen Type: BLOOD SPECIMENOrdering Facility: [facility] Address:[address] [place], [place] [address]Performed By: #### 91292-3 ####[facility] LABCLIA [id number] [place] [address] [place] AMERICANucleated RBC (Bld) [#/Vol] 10*3/uLNormal<0.01[facility] on above:Order Comment: Specimen Type: BLOOD SPECIMENOrdering Facility: [facility] Address:[address] [place], [place] [address]Performed By: #### 54602-3 ####[facility] LABCLIA [id number] [place] [address] [place] AMERICANucleated RBC/100 WBC (Bld) [Ratio]0.0 /100 WBCNormal [facility] on above:Order Comment: Specimen Type: BLOOD SPECIMENOrdering Facility: [facility] Address:[address] [place], [place] [address]Performed By: #### 27763-4 ####[facility] LABCLIA [id number] [place] [address] [place] AMERICAPlatelet mean volume (Bld) [Entitic vol]9.8 fLNormal9.0-12.7CMercy Health [facility] Comment on above:Order Comment: Specimen Type: BLOOD SPECIMENOrdering Facility: [facility] Address:[address] [place] [address] Performed By: #### 40004-4 ####[facility] LABCLIA [id number] [place] [address] [place] AMERICAPlatelets (Bld) [#/Vol] 297 10*3/eJAgjich863-624UoqmfwxjxTrumbull Regional Medical Center on above:Order Comment: Specimen Type: BLOOD SPECIMENOrdering Facility: [facility] Address:[address] [place], [place] [address]Performed By: #### 66538- 8 ####[facility] LABCLIA [id number] [place] [address] [place] AMERICARBC (Bld) [#/Vol]4.33 10*6/uLNormal3.90-5.20 [facility] on above:Order Comment: Specimen Type: BLOOD SPECIMENOrdering Facility: [facility] Address:[address] [place], [place] [address]Performed By: #### 31527-6 ####[facility] LABCLIA [id number] [place] [address] [place] AMERICAWBC (Bld) [#/Vol]6.52 10*3/uLNormal3.70-11.00[facility] Grant Medical CenterCommclaren central [place] on above: Order Comment: Specimen Type: BLOOD SPECIMENOrdering Facility: [facility] Address:[address] [place], [place] [address]Performed By: #### 32623- 8 ####[facility] LABCLIA [id number] [address] OF AMERICACNOVon 58-60-5274OUTKYjfkliQxkcmmikg Clinic ClevelandCNPNon 08-95-9785ZNQUYkemdoYxqggxdih Clinic ClevelandComprehensive metabolic 2000 panelon 35-07-7009Xyrbitv [Mass/Vol]4.5 g/dLNormal3.9-4.9 [facility] on above:Order Comment: Specimen Type: BLOOD SPECIMENOrdering Facility: [facility] Address:[address] [place], [place] [address]Performed By: #### 71024-1, 85570-1 ####[facility] LABCLIA [id number] [place] [id number] [place] AMERICAALP [Catalytic activity/Vol]79 U/SOcqxef29-790XqcbgqizgOhiohealth Grant Medical Center Comment on above:Order Comment: Specimen Type: BLOOD SPECIMENOrdering Facility: [facility] Address:[address] [place] [address] Performed By: #### 60393-9, 16948-1 ####[facility] LABCLIA [id number] [place] [address] [place] AMERICAALT [Catalytic activity/Vol]61 U/LHigh7-38[facility] on above:Order Comment: Specimen Type: BLOOD SPECIMENOrdering Facility: [facility] Address:[address] [place], [place] [address]Performed By: #### 19913-6, 38668-3 ####[facility] LABCLIA [id number] [place] [address] [place] AMERICAAnion gap [Moles/Vol]16 mmol/L High8-15[facility] on above:Order Comment: Specimen Type: BLOOD SPECIMENOrdering Facility: [facility] Address:[address] [place], [place] [address]Performed By: #### 29117-5, 80075-3 ####[facility] LABCLIA [id number] [place] [address] [place] AMERICAAST [Catalytic activity/Vol]43 U/LShmx32-42EzumubwcmTrumbull Regional Medical Center on above:Order Comment: Specimen Type: BLOOD SPECIMENOrdering Facility: [facility] Address:[address] [place], [place] [address]Performed By: #### 08897-7, 48134-6 ####[facility] LABCLIA [id number] [place] [address] [place] Bilirubin [Mass/Vol]0.4 mg/dLNormal0.2-1.3CDayton Children's Hospital on above:Order Comment: Specimen Type: BLOOD SPECIMENOrdering Facility: [facility] Address:[address] [place], [place] [address]Performed By: #### 43056-0, 65039-0 ####[facility] LABCLIA [id number] [place] [address] [place] AMERICACalcium [Mass/Vol]9.4 mg/dL Normal8.5-10.2CDayton Children's Hospital on above:Order Comment: Specimen Type: BLOOD SPECIMENOrdering Facility: [facility] Address:[address] [place], [place] [address]Performed By: #### 70527-3, 62096-0 ####[facility] LABCLIA [id number] [place] [address] [place] AMERICAChloride [Moles/Vol]103 mmol/JEqcudt44-713 [facility] on above:Order Comment: Specimen Type: BLOOD SPECIMENOrdering Facility: [facility] Address:[address] [place], [place] [address]Performed By: #### 27073-6, 73656-2 ####[facility] LABIA [id number] [place] [address] [place] AMERICACO2 [Moles/Vol]22 mmol/RMylxys25-02GxtohwdkmTrumbull Regional Medical Center on above:Order Comment: Specimen Type: BLOOD SPECIMENOrdering Facility: [facility] Address:[address] [place], [place] [address]Performed By: #### 14272-8, 98059-4 ####[facility]IA [id number] [address] STATES OF AMERICACreatinine [Mass/Vol]0.93 mg/dLNormal0.58-0.96[facility] on above:Order Comment: Specimen Type: BLOOD SPECIMENOrdering Facility: [facility] Address:[address] [place], [place] [address]Performed By: #### 92885-0, 53629-2 ####[facility] LABIA [id number] [address] STATES OF AMERICAeGFRcr SerPlBld CKD-EPI 822433 mL/min/1.73m??? Normal>=60[facility] on above:Order Comment: Specimen Type: BLOOD SPECIMENOrdering Facility: [facility] Address:[address] [place], [place] [address]Result Comment: Estimated Glomerular Filtration Rate (eGFR) is calculated using the 2020 CKD-EPI creatinine equation. This equation utilizes serum creatinine, sex, and age as parameters. The creatinine assay has traceable calibration to isotope dilution-mass spectrometry. Refer to KDIGO guidelines for clinical interpretation. In patients with unstable renal function, e.g. those with acute kidney injury, the eGFR may not accurately reflect actual GFR.Performed By: #### 16693-8, 60640-8 ####[facility] LABCLIA [id number] [place] [address] [place] AMERICAGlucose [Mass/Vol]137 mg/pLMmwf41-93TmvlmbkikTrumbull Regional Medical Center on above:Order Comment: Specimen Type: BLOOD SPECIMENOrdering Facility: [facility] Address:[address] [place], [place] [address]Result Comment: The [place] [employer] (ADA) provides guidance for cutoff values for fasting glucose and random glucose. The ADA defines fasting as no caloric intake for at least 8 hours. Fasting plasma glucose results between 100 to 125 mg/dL indicate increased risk for diabetes (prediabetes).Fasting plasma glucose results greater than or equal to 126 mg/dL meet the criteria for diagnosis of diabetes. In the absence of unequivocal hyperglycemia, results should be confirmed by repeattesting. In a patient with classic symptoms of hyperglycemia or hyperglycemic crisis, random plasmaglucose results greater than or equal to 200 mg/dL meet the criteria for diagnosis of diabetes.Reference: Standards of Medical Care in Diabetes 2016, [place] [employer]. Diabetes Care. 2016.39(Suppl 1).Performed By: #### 84169-5, 07818-4 ####[facility] LABCLIA [id number] [place] [address] [place] Potassium [Moles/Vol]3.9 mmol/LNormal3.7-5.1CDayton Children's Hospital on above:Order Comment: Specimen Type: BLOOD SPECIMENOrdering Facility: [facility] Address:[address] [place], [place] [address]Performed By: #### 39897-6, 87801-2 ####[facility] LABCLIA [id number] [place] [address] [place] AMERICAProtein [Mass/Vol]6.5 g/dL Normal6.3-8.0[facility] on above:Order Comment: Specimen Type: BLOOD SPECIMENOrdering Facility: [facility] Address:[address] [place], [place] [address]Performed By: #### 95075-1, 18964-8 ####[facility] LABCLIA [id number] [place] [address] [place] AMERICASodium [Moles/Vol]141 mmol/SRkfiwq586-794PtyqkhmrwTrumbull Regional Medical Center on above:Order Comment: Specimen Type: BLOOD SPECIMENOrdering Facility: [facility] Address:[address] [place], [place] [address]Performed By: #### 09113-2, 35808-2 ####[facility] LABCLIA [id number] [place] [address] [place] AMERICAUrea nitrogen [Mass/Vol]14 mg/dLNormal7-21[facility] on above: Order Comment: Specimen Type: BLOOD SPECIMENOrdering Facility: [facility] Address:[address] [place], [place] [address]Performed By: #### 62060- 8, 61490-5 ####[facility] LABCLIA [id number] [place] [address] [place] AMERICACyclic citrullinated peptide IgG Qnon 72-44-5256YBQ ANTIBODY IGG QUALITATIVENegativeNormalNegativeTrumbull Regional Medical Center on above:Order Comment: Specimen Type: BLOOD SPECIMENOrdering Facility: [facility] Address:[address] [place], [place] [address]Performed By: #### 39441-9 ####[facility] LABCLIA [id number] [place] [address] [place] AMERICAHISTORY PHYSICALon 63-50-9617AVPYWUP PHYSICALNormalCMercy Health St. Elizabeth Boardman HospitalIGG SUBCLASS 1,2,3,4on 84-64-1267WtP subclass 1 (S) [Mass/Vol]357.5 mg/oBGkf197.4-928.6CDayton Children's Hospital on above:Order Comment: Specimen Type: BLOOD SPECIMENOrdering Facility: [facility] Address:[address] [place], [place] [address]Performed By: #### [id number] ####[facility] LABCLIA [id number] [place] [address] [place] AMERICAIgG subclass 2 (S) [Mass/Vol]103.9 mg/zMBxo871.8-700.3CMercy Health St. [facility] Comment on above:Order Comment: Specimen Type: BLOOD SPECIMENOrdering Facility: [facility] Address:[address] [place] [address] Performed By: #### [id number] ####[facility] LABCLIA [id number] [place] [address] [place] AMERICAIgG subclass 3 (S) [Mass/Vol]49.8 mg/dCBrpcvt37.8-176.1CDayton Children's Hospital on above: Order Comment: Specimen Type: BLOOD SPECIMENOrdering Facility: [facility] Address:[address] [place], [place] [address]Performed By: #### [id number] ####[facility] LABCLIA [id number] [place] [address] [place] AMERICAIgG subclass 4 (S) [Mass/Vol]11.4 mg/dLNormal 3.9-86.4CGalion Community Hospitalment on above:Order Comment: Specimen Type: BLOOD SPECIMENOrdering Facility: [facility] Address:[address] [place], [place] [address]Performed By: #### [id number] ####[facility] LABCLIA [id number] [place] [address] [place] AMERICAIMMUNOGLOBULINS,IGG,IGA,IGMon 25-62-9583MpX [Mass/Vol]142 mg/dLNormal 70-400[facility] on above:Order Comment: Specimen Type: BLOOD SPECIMENOrdering Facility: [facility] Address:[address] [place], [place] [address]Performed By: #### SERIMM ####[facility] LABCLIA [id number] [place] [address] [place] IgG [Mass/Vol]670 mg/xBLht604-3742XkxjyibdjTrumbull Regional Medical Center on above: Order Comment: Specimen Type: BLOOD SPECIMENOrdering Facility: [facility] Address:[address] [place], [place] [address]Performed By: #### SERIMM ####[facility] LABCLIA [id number] [place] [address] [place] AMERICAIgM [Mass/Vol]82 mg/yNRurmfc45-113AdxguysbwOhiohealth Grant Medical CenterComment on above:Order Comment: Specimen Type: BLOOD SPECIMENOrdering Facility: [facility] Address:[address] [place], [place] [address]Performed By: #### SERIMM ####[facility] LABCLIA [id number] [place] [address] [place] AMERICANURSING PROGon 54-21-2917OESFAQB PROGNormalOhiohealth Grant Medical CenterRheumatoid fact SerPl-aCnc on 92-19-6485Uuyqzalcuc factor Qn[IU]/mLNormal<16[facility] Comment on above:Order Comment: Specimen Type: BLOOD SPECIMENOrdering Facility: [facility] Address:[address] [place] [address] Performed By: #### 48123-4, 55255-4 ####[facility] LABCLIA [id number] [place] [address] [place] AMERICAXR HAND 3V PA/LAT/OBL BILon 59-42-4141HX HAND 3V PA/LAT/OBL BILNormalCMercy Health St. Elizabeth Boardman HospitalcCP IgG SerPl-aCncon 85-65-7049Wdykbl citrullinated peptide IgG Qn<15 Normal<20[facility] on above:Order Comment: Specimen Type: BLOOD SPECIMENOrdering Facility: [facility] Address:[address] [place], [place] [address]Performed By: #### 18849-0 ####[facility] LABCLIA [id number] [place] [address] [place] AMERICACNPNon 66-24-5440VWBXPvthsqOemszitef Clinic ClevelandCNCOon 02-22-[address] CNCOLetter [address] Elizabeth Boardman HospitalMR Unspecified body region cine for CSF flowon 01-94-0335ZBOPGCHAAH: No convincing evidence for Chiari I malformation. Dictated by Jeancarlos Wilde M.D. Workstation ID:[id number] Jeancarlos Wade MD - 02/21/2025 PROCEDURE: MRI CSF FLOW STUDY ONLY CLINICAL INFORMATION: Headaches, IIH (idiopathic intracranial hypertension), Other headache syndrome, . COMPARISON: 01/16/2025 TECHNIQUE: Limited MR imaging of the brain was performed along with CSF flow study FINDINGS: Redemonstration of slightly low-lying cerebellar tonsils without evidence for Chiari I malformation. Partial opacification of the left-sided mastoid air cells may relate with mastoid effusion or inflammatory changes. Mild mucosal thickening of the ethmoid air cells. Skull base arterial flow voids are grossly patent. Mild mucosal thickening of the frontal sinuses and the ethmoid air cells. No evidence for significant CSF impedance noted at the foramen magnum. IMPRESSION: No convincing evidence for Chiari I malformation. Dictated by Jeancarlos Wilde M.D. Workstation ID:[id number] [facility] Unspecified body region cine for CSF flowOrdered By: Jeancarlos Wilde on 41-85-5857Kntbgla Health Work Phone: CNPNon 51-93-6864UVQVLmskqoUsynrhreqCenterville MR Unspecified body region cine for CSF flowon 05-93-6765Nmdgizwpe Study observation (narrative)[facility] ColumbusCNPNon 87-00-7822DYHVFhssacBlsaxhwsuSt. Mary's Medical Center, Ironton CampusCNOVon 64-13-3215ZETFWemiwlIrfnukrytCleveland Clinic Fairview HospitalPROGRESS NOTESon 05-26-8085Iqvapawemtnxl Authentication Interface Message TextTelemedicine Consent Patient and family are aware telemedicine technology will be utilized to conduct cvvw-jq-bzba consult with Karolina Dangelo who is off site. Instructed no recordings will be made of this consult and patient confidentiality will be maintained at all times. All questions answered. Verbalized agreement to participation in telemedicine visit. Names of participants participating in visit other than provider and patient: Krysta Marrufo RN Location of patient: home Location of provider: [facility] office CONSULT DATE: 01/30/25 PATIENT: Karolina Dangelo : 1985 NEUROSURGEON: Mandie Gaudin, M.D. Provider at Today's Visit: Kaycee Marrufo RN REFERRING: No ref. provider found PRIMARY: Lloyd Sherwood CHIEF COMPLAINT Headaches HISTORY Karolina Dangelo is a 39 year old right-handed female who presents for evaluation of IIH. Reports hysterectomy in 2012 and in October 2021 she was started on hormones and she noticed blurry vision for the first time. Reports in February of 2022 she lost her right eye vision for 3 months and had lumbar puncture with opening pressure of 34. Also, reported she would wake up daily with her arms tingling and severe hip pain and extremity pain/heaviness. She was started on Diamox and Ozempic and lost 40 pounds. Symptoms resolved and medications were stopped. Reports in April 2023 to August 2023 she had multiple illnesses (COVID, strep, and flu). In August, developed posterior neck pressure, dizziness, imbalance, forgetfulness, and dysphagia. She went to [facility] and completed a lumbar puncture with opening pressure above 30. She was restarted on Diamox. Symptoms did improve after. Reports starting in August 2024 started getting posterior neck pressure, headaches, and arm/leg weakness. Pain would improve with laying down. This lasted a couple months. Reports was taking 1500 mg Diamox per day and did get kidney stones. Reports she has lost 49 pounds. She has also tried numerous medications with Neurology for headaches, including botox injections. 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 Reports when symptoms flare up they are debilitating and last for about a month. For the past 3 months she denies vision concerns and is taking 500 mg Diamox in the morning. Denies improvement in symptoms with recent LP. Reports no improvement in symptoms until she took Depakote. Patient had cerebral angiogram with neurovascular in [place] and pressures were not high enough for stent placement. Patient seen by neuro-revenue cycle administrator 01/10/25, no papilledema noted at that time. Patient had lumbar puncture on 01/26/25 with opening pressure at 16.5 cm water. Patient reports her headaches have been worse since 2-3 hours after LP. Patient feels she was not positioned correctly for procedure. She also feels she would not benefit from [employer] shunt. Patient requests more testing to check CSF flow, worries it is diminished causing her headaches. PAST MEDICAL HISTORY: Past Medical History[1] CURRENT MEDICATIONS: Current Outpatient Medications: cetirizine (ZYRTEC) 10 mg tablet, Take 1 Tab by mouth in the morning., Disp: , Rfl: albuterol 90 mcg/actuation Inhalation aerosol, Inhale 2 Puffs as directed every 4 hours as needed., Disp: , Rfl: acetaZOLAMIDE (DIAMOX SEQUEL) 500 mg capsule, Take 1 Cap by mouth in the morning., Disp: , Rfl: MULTIVITAMINS W/C ORAL, , Disp: , Rfl: SINGULAIR 10 mg tablet, Take 1 Tab by mouth in the morning., Disp: , Rfl: magnesium oxide (MAG-OX) 400 mg tablet, Take 1 Tab by mouth in the morning., Disp: , Rfl: hydrOXYzine pamoate (VISTARIL) 50 mg capsule, Take 1 Cap by mouth at bedtime as needed., Disp: , Rfl: divalproex (DEPAKOTE-ER) 500 mg ER-tablet, Take 1 Tab by mouth in the morning and 1 Tab before bedtime., Disp: , Rfl: amphetamine salt combination, 20 mg, (ADDERALL) 20 mg tablet, Take 1 Tab by mouth in the morning. 10 mg in afternoon., Disp: , Rfl: chlorzoxazone (PARAFON FORTE DSC) 500 mg tablet, Take 500 mg by mouth every 6 hours as needed., Disp: , Rfl: nortriptyline (PAMELOR) 10 mg capsule, Take 10 mg by mouth in the morning., Disp: , Rfl: ketorolac (TORADOL) 10 mg tablet, Take 10 mg by mouth in the morning and 10 mg before bedtime., Disp: , Rfl: SURGICAL HISTORY: Past Surgical History[2] ALLERGIES: Morphine, Oxycodone-acetaminophen, Sulfa (sulfonamide antibiotics), Latex, Nickel, and Oxycodone REVIEW OF SYSTEMS There are no exam notes on file for this visit. PHYSICAL EXAMINATION Karolina presents to the office alone. VITAL SIGNS Today's height is 1.588 m (5' 2.5 ) and weight is 74.8 kg (165 lb). Karolina is oriented to person, place, time, and situation and provides good history. General: Appearance Same as stated age and alert, cooperative, pleasant Body habitus: overweight Body mass index is 29.7 kg/m??. Aff (more content not included)...NormalProvider LocationsTranscription Authentication Interface Message TextHeadaches(behind eyes): eye hurt when moving, Pressure (pain ) ear to ear and down her neck Vision disturbances(blurred vision, double vision, blind spots or peripheral vision loss): No Tinnitus: Yes ringing and whooshing sound Neck/back pain: Yes Dizziness: Yes Nausea/Vomiting: Nauseous when laying down Belief episodes of blindness: No Laying down 4-5 Sitting up 7 Neck pressure, feels like something is strangling her. Memory issues Dropping things Pressure in neckNormalProvider LocationsGuidance for puncture of Lumbar spineon 52-52-5991JNXNAEHOAO: Successful and uncomplicated fluoroscopically guided lumbar puncture as above. Normal opening pressure. Dictated by James Kohli M.D.Workstation ID:[id number] HIEFLUOROSCOPIC GUIDED LUMBAR PUNCTURE, 01/26/2025 1:25 PM. INDICATION: Idiopathic intracranial hypertension syndrome. MEDICATIONS: 1% buffered lidocaine. COMPLICATIONS: None. FLUOROSCOPY DOSAGE: 11.8 mGy. PROCEDURE: Following explanation of risk, benefits and alternatives both written and verbal consentwas obtained. The patient was placed in the prone position on the examination table and a manager regulatory radiograph was obtained demonstrating normal appearance of the lumbar spine. The skin and subcutaneous tissues overlying the L3-4 sublaminar space were prepped and draped usingstandard sterile technique. Using fluoroscopic guidance a 22-gauge spinal needle was advanced into the thecal sac with return of clear, colorless CSF. Opening and closing pressures were obtained in the left lateral decubitus position. Opening pressure was measured as 16.5 cm water. A total of 4.5 mL of CSF were collected and sent to lab. Closing pressure was measured as 14 cm water. At the completion of procedure the needle was removed and hemostasis was achieved. The patient tolerated procedure well without immediate complication. James Humphries MD - 01/26/2025 FLUOROSCOPIC GUIDED LUMBAR PUNCTURE, 01/26/2025 1:25 PM. INDICATION: Idiopathic intracranial hypertension syndrome. MEDICATIONS: 1% buffered lidocaine. COMPLICATIONS: None. FLUOROSCOPY DOSAGE: 11.8 mGy. PROCEDURE: Following explanation of risk, benefits and alternatives both written and verbal consentwas obtained. The patient was placed in the prone position on the examination table and a manager regulatory radiograph was obtained demonstrating normal appearance of the lumbar spine. The skin and subcutaneous tissues overlying the L3-4 sublaminar space were prepped and draped usingstandard sterile technique. Using fluoroscopic guidance a 22-gauge spinal needle was advanced into the thecal sac with return of clear, colorless CSF. Opening and closing pressures were obtained in the left lateral decubitus position. Opening pressure was measured as 16.5 cm water. A total of 4.5 mL of CSF were collected and sent to lab. Closing pressure was measured as 14 cm water. At the completion of procedure the needle was removed and hemostasis was achieved. The patient tolerated procedure well without immediate complication. IMPRESSION: Successful and uncomplicated fluoroscopically guided lumbar puncture as above. Normal opening pressure. Dictated by James Kohli M.D.Workstation ID:[id number] [facility] HospitalRadiology Study observation (narrative)Colwich HealthLUMBAR PUNCTURE CSF DIAGNOSTICon 60-35-6306BFRFEY PUNCTURE CSF DIAGNOSTIC FLUOROSCOPIC GUIDED LUMBAR PUNCTURE, 01/26/2025 1:25 PM. INDICATION: Idiopathic intracranial hypertension syndrome. MEDICATIONS: 1% buffered lidocaine. COMPLICATIONS: None. FLUOROSCOPY DOSAGE: 11.8 mGy. PROCEDURE: Following explanation of risk, benefits and alternatives both written and verbal consentwas obtained. The patient was placed in the prone position on the examination table and a manager regulatory radiograph was obtained demonstrating normal appearance of the lumbar spine. The skin and subcutaneous tissues overlying the L3-4 sublaminar space were prepped and draped usingstandard sterile technique. Using fluoroscopic guidance a 22-gauge spinal needle was advanced into the thecal sac with return of clear, colorless CSF. Opening and closing pressures were obtained in the left lateral decubitus position. Opening pressure was measured as 16.5 cm water. A total of 4.5 mL of CSF were collected and sent to lab. Closing pressure was measured as 14 cm water. At the completion of procedure the needle was removed and hemostasis was achieved. The patient tolerated procedure well without immediate complication. IMPRESSION: Successful and uncomplicated fluoroscopically guided lumbar puncture as above. Normal opening pressure. Dictated by James Kohli M.D.Workstation ID:[id number] 11.79mGMercy Health Lorain Hospital NOTEon 13-05-4373Kquhouxjwlgtv Authentication Interface Message TextSpoke to pt to confirm that she is NOT allergic to acetaminophen. Pt says that only allergic to oxycodone.[facility] Mentor HospitalPLATELET COUNTon 64-48-0329Etjxfypwmjkdvi and review of laboratory resultsNormSelect Medical Specialty Hospital - [facility] Platelets (Bld) [#/Vol]296 10*3/uL140 - 400 K/uLPreSelect Medical Specialty Hospital - [facility] PLATELETS (10*3/UL) BY AUTOMATED [id number] K/bTScgtpo214-705LngycClinton Memorial HospitalComment on above:Performed By: #### [id number] #### [address] [address] Harvey Mcginnis M.D. Medical DirectorPROTHROMBIN TIMEon 41-69-8649UVR Coag (PPP) [Relative time]0.9 {INR}0.9 - 1.1Premriverside methodist hospital HealthInterpretation and review of laboratory resultsNoUniversity Hospitals Portage Medical CenterPT Coag (PPP) [Time]12.1 [facility] Medical CenterConventional anticoagulation: 2.0 - 3.0 Intensive anticoagulation: 2.5 - 3.5PremSouthview Medical CenterCOMMENT Conventional anticoagulation: 2.0 - 3.0[facility] Ment[facility] HospitalComment on above:Result Comment: Intensive anticoagulation: 2.5 - 3.5Performed By: #### [id number] #### [address] [address] Harvey Mcginnis M.D. Medical DirectorINR Coag (PPP) [Relative time]0.9 {INR} Normal0.9-1.1Clinton Memorial HospitalComment on above:Performed By: #### [id number] #### [address] [address] Harvey Mcginnis M.D. Medical DirectorPT Coag (PPP) [Time]12.1 sNormal 11.7-13.9Clinton Memorial HospitalComment on above:Performed By: #### [id number] #### [facility] [address] [facility] [address] [place] [address] Harvey Mcginnis M.D. Medical DirectorEMG(NEURO/NI)on [id number] can be seen in attached scanned documents. If you are a patient reviewing this test result, call the doctor who ordered the test with any questions. [facility] HospitalMRI BRAIN WITHOUT CONTRASTon [id number] BRAIN WITHOUT CONTRASTEXAM: MRI BRAIN WO CONTRAST INDICATION: r/o IIH & chiari malformation, IIH (idiopathic intracranial hypertension), Other headache syndrome, Vision changes, TECHNIQUE: Multisequence MR imaging of the brain was performed without contrast. COMPARISON: MRI brain 07/03/2024. FINDINGS: No areas of restricted diffusion are identified. No intraparenchymal hemosiderin staining is evident. Brain parenchymal signal and volume of purulent normal. The pituitary gland appears normal. The cerebellar tonsils are mildly low-lying extending up to 4 mm below the level of foramen magnum on theleft, similar to the prior exam. The pontomesencephalic angle appears normal. The Ponto mamillary distance is normal. The ventricles, sulci and cisterns are normal in size and configuration. Incidental note is made ofsmall bilateral cord plexus xanthogranulomas. No extra-axial collections are identified. The calvarial marrow signal appears normal. No intraorbital abnormalities. No abnormal dilation of the optic nerve sheaths or protrusion of theoptic discs. Mild ethmoid sinus opacification. Trace left mastoid opacification. The major arterial and venous flow voids appear maintained. IMPRESSION: * No acute intracranial abnormalities. No evidence of intracranial mass, hemorrhage or acute infarct. * Mildly low-lying cerebellar tonsils extending up to 4 mm below the level of foramen magnum, not meeting criteria for Chiari malformation. * No specific imaging features IIH. DICTATED BY: COLLETTE CASTAÑEDA M.D. Workstation ID:[id number] r/o IIH & chiari malformation, IIH (idiopathic intracranial hypertension), Other headache syndrome, Vision changes, head neck pressure, stiffness, balance off, no sx/inj, hx cervial CANormalMiaSamaritan HospitalMRI SPINE LUMBAR WITHOUT CONTRASTon [id number] SPINE LUMBAR WITHOUT CONTRASTEXAM: MRI LUMBAR SPINE WO CONTRAST INDICATION: r/o CSF leak, Cerebrospinal fluid leak from spinal puncture, TECHNIQUE: MRI lumbar of the spine obtained including multiplanar T1 and T2 weighted imaging. COMPARISON: MRI lumbar spine 07/02/2024. FINDINGS: Numbering convention: 5 lumbar like vertebral bodies with standard lumbosacral junction. Osseous structures: The vertebral body heights appear maintained. The disc spaces appear maintained. The marrow signal appears normal. Alignment: Normal. Distal thoracic cord and conus: No signal abnormalities within the distal thoracic cord. The conus terminates at the level of L1. The cauda equina nerve roots demonstrate a normal morphology. No intraspinal collections are identified. Individual disc space levels: T10-L2: No significant spinal canal or foraminal narrowing. L2-3: Mild facet arthrosis, right greater than left. No significant spinal canal or foraminal narrowing. L3-4: Mild facet arthrosis, left greater than right. No significant spinal canal or foraminal narrowing. L4-5: Moderate left and mild to moderate right facet arthrosis. No significant spinal canal or foraminal narrowing. L5/S1: Severe right and moderate left facet arthrosis with small disc bulge. Mild right foraminal narrowing. No significant narrowing of the spinal canal. Extraspinal structures: Limited evaluation of intra-abdominal and short structures demonstrates no acute abnormalities. No acute osseous abnormalities within the imaged portions the bony pelvis. Extraspinal fluid collections are identified. IMPRESSION: * No evidence of intraspinal or extraspinal collections to suggest a CSF leak. * Minimal discogenic degenerative changes at L5-S1 and multilevel facet arthrosis including severe facet arthrosis on the right at L5/S1. No significant spinal canal compromise. Mild right L5 foraminal narrowing. DICTATED BY: COLLETTE CASTAÑEDA M.D. Workstation ID:[id number] Do routine L spine per Dr. Castañeda, r/o CSF leak, Cerebrospinal fluid leak from spinal puncture x3, latest one 09-30-24, no sx/inj, hx cervical CANFostoria City HospitalPROGRESS NOTESon [id number] Authentication Interface Message TextHeadaches(behind eyes): eye hurt when moving, Pressure (pain ) ear to ear and down her neck Vision disturbances(blurred vision, double vision, blind spots or peripheral vision loss): No Tinnitus: Yes ringing and whooshing sound Neck/back pain: Yes Dizziness: Yes Nausea/Vomiting: Nauseous when laying down Belief episodes of blindness: No Laying down 4-5 Sitting up 7 Neck pressure, feels like something is strangling her. Memory issues Dropping things Pressure in neckNormalProvider LocationsCNPNon [id number] Clinic ClevelandOCT OPTIC NERVE CIRRUS OU (BOTH EYES)on [id number] ClinicRadiology Study observation (narrative)[facility] HospitalVISUAL FIELD 24-2 OU (BOTH EYES)on [id number] ClinicRadiology Study observation (narrative)[facility] HospitalCNPNon [id number] [facility] [place] CNOVon [id number] Clinic ClevelandCNPNon [id number] [facility] CenterANES POSTPROC EVALon [id number] POSTPROC EVAL NormalOhiohealth Grant Medical CenterANES PRE-OPon [id number] PRE-OPNormal [facility] CenterBRIEF OP NOTon [id number] OP NOTNormBarnesville Hospital CAROTID - INTERNALon [id number] CAROTID - INTERNALNormal [facility] CenterIR CAROTID NECK BILon [id number] CAROTID NECK KODY NormalOhiohealth Grant Medical CenterIR EXT CAROTID KODY CEREBRALon [id number] EXT CAROTID KODY CEREBRALNormalCMercy Health St. [facility] Boardman HospitalIR VERTEBRAL ARTERYon [id number] VERTEBRAL ARTERYNormalCMercy Health St. [facility] HospitalPT EDon 12-30-[address] [facility] Board[facility] HospitalHISTORY PHYSICALon [id number] PHYSICALNormalCTrinity Health System East CampusTORY PHYSICALon [id number] PHYSICALHNO ID: [id number] Author: STACIA VALDOVINOS MD Service: Neuroendovascular Intervention Author Type: Fellow Type: H&P Filed: 12/22/2024 08:47 Note Text: Attestation signed by Bebe Thomas MD at 12/22/2024 8:59 AM Attending Note: Long findings confirmed. Patient examined. Discussed with the fellow and the patient. Plan as outlined. Bebe Thomas MD PROCEDURAL SEDATION HISTORY AND PHYSICAL EXAM SERVICE DATE: 12/22/2024 SERVICE TIME: 8:40 AM Subjective Patient is a 39 year old female with history of IIH and papilledema. Diagnostic cervicocerebral angiography, venous angiography, venous manometry were requested. PAST ANESTHESIA HISTORY: History of Sedation/Anesthesia Complications: Denies History of Difficult Airway: Denies PAST MEDICAL HISTORY Diagnosis Date Fibromyalgia IIH (idiopathic intracranial hypertension) Osteoarthritis of multiple joints Palindromic rheumatism PAST SURGICAL HISTORY Procedure Laterality Date LAPAROSCOPIC CHOLECYSTECTOMY 07/29/2023 LAPAROSCOPY-ROBERTO 10/19/2012 LIGATE FALLOPIAN TUBE Bilateral 12/15/2011 REMOVAL OF OVARY/TUBE(S) Bilateral 10/19/2012 TOTAL ABDOM HYSTERECTOMY 10/19/2012 Prior to Admission medications as of 12/22/24 0808 Medication Sig Last Dose Taking SINGULAIR 10 mg tablet Take 10 mg by mouth daily at bedtime. 12/21/2024 Bedtime Yes chlorzoxazone (PARAFON FORTE DSC) 500 mg tablet Take 1 tablet by mouth four times a day as needed. 12/21/2024 Evening Yes dextroamphetamine-amphetamine (ADDERALL) 20 mg tablet Take 1 tablet by mouth two times a day. 12/21/2024 Noon Yes nortriptyline (PAMELOR) 10 mg capsule Take 1 capsule by mouth daily at bedtime. 12/21/2024 Bedtime Yes keTORolac (TORADOL) 10 mg tablet Take 1 tablet by mouth every 6 hours as needed for headache or pain. 12/21/2024 Evening Yes divalproex ER (DEPAKOTE ER) 500 mg 24 hr tablet Take 1 tablet by mouth daily at bedtime. 12/21/2024 Bedtime Yes acetaZOLAMIDE SR (DIAMOX SEQUELS) 500 mg capsule Take 1 capsule by mouth two times a day. 12/22/2024 Morning Yes hydrOXYzine pamoate (VISTARIL) 50 mg capsule Take 50 mg by mouth daily at bedtime. Past Week Yes Cetirizine 10 mg cap 12/21/2024 Morning Yes acetaZOLAMIDE (DIAMOX) 250 mg tablet Take 1 tablet by mouth every evening. Patient taking differently: Take 500 mg by mouth every evening. atogepant (QULIPTA) 60 mg tablet Take 1 tablet by mouth once daily. mv,calcium,min/iron/folic/vitK (MULTI FOR HER ORAL) ALLERGIES Allergen Reactions Adhesive Rash Latex Rash Levaquin [Levofloxa* Swelling Swelling tongue Morphine Angioedema Says tongue swells up, vomits, chest pain Nickel Rash, Unknown Oxycodone Rash Oxycodone-Acetamino* Rash Silk Other: See Comments Silk tape Sulfadiazine Rash Sulfamethoxazole-Tr* Swelling Adhesive Tape (Cammie* Hives, Itching Current Meds: No current facility-administered medications for this encounter. Allergies: ALLERGIES Allergen Reactions Adhesive Rash Latex Rash Levaquin [Levofloxa* Swelling Swelling tongue Morphine Angioedema Says tongue swells up, vomits, chest pain Nickel Rash, Unknown Oxycodone Rash Oxycodone-Acetamino* Rash Silk Other: See Comments Silk tape Sulfadiazine Rash Sulfamethoxazole-Tr* Swelling Adhesive Tape (Cammie* Hives, Itching Objective Vitals: 12/22/24 0813 BP: 107/59 Pulse: 72 Temp: 36.7 ?C (98.1 ?F) TempSrc: Oral SpO2: 97% Weight: 70.3 kg (155 lb) Height: 157.5 cm (5' 2 ) PHYSICAL EXAM: The remainder of the physical exam is noncontributory. Airway: Mallampati III, Mouth opening greater than 2 fingerbreadths Yes, Neck full range of motion: Yes. Lungs: Clear to auscultation. Cardiac: regular rhythm Neurologic Exam: Mental status: A AND O x 4 (to person, place, time), language fluent and without errors, repetition intact, naming intact. Cranial nerves: Pupils are equal and reactive. Visual field is full to finger counting. Extraocular muscles are intact. Face is symmetric on activation. Sensation intact and equal BL. Motor: Muscle strength in distal and proximal BUEs and BLEs is 5/5. Sensory: intact and equal bilaterally to light touch throughout BUEs and BLEs. Coordination: No dysmetria on FNF. Assessment/Plan ASA Class: III VTE Prophylaxis: Needs to be revised Provisional Diagnosis/Treatment Plan: To Neuro-IR for Diagnostic CervicoCerebral Angiography, venous angiography, venous manometry under moderate conscious sedation. , SIGNATURE: Stacia Valdovinos MD PATIENT NAME: Karolina Nicole DATE: December 22, 2024 TIME: 8:40 [facility] WomenHISTORY PHYSICALHNO ID: [id number] Author: ARBEN CALIX PA-C Service: Radiology Author Type: Physician Journeyman Tool And Die Maker Type: H&P Filed: 12/22/2024 08:46 Note Text: [facility] UPDATED HISTORY AND PHYSICAL PATIENT NAME: Karolina Nicole SERVICE DATE: 12/22/2024 SERVICE TIME: 8:21 AM PHYSICAL EXAM MUST BE COMPLETED ON ADMISSION The History and Physical (completed in the past 30 days) has been reviewed and the patient has been examined. The contents accurately reflect the patient's condition with the following additions or revisions since the HANDP was completed. . Patient Vitals for the past 24 hrs: Temp Temp src Height Weight 12/22/24 0813 36.7 ?C (98.1 ?F) Oral 157.5 cm (5' 2 ) 70.3 kg (155 lb) GENERAL: Alert, no distress, cooperative, pleasant. Patient has c/o headache with chronic head and neck pain 7/10 today. She denies chest pain, Shortness of Breath, cough, vision/speech changes, upper/lower extremity weakness. LUNG:Lungs clear to auscultation, Good diaphragmatic excursion, no wheezing/rhonchi/rales. CARDIAC: Normal S1 and S2; no rubs, murmurs, or gallops, Rhythm: regular rate and rhythm. Assessment: 1.Idiopathic intracranial hypertension 2.Migraines 3.Fibromyalgia. Plan: Patient is optimized for sedation for the below procedure in agreement with the attending physician. Cerebral angiogram. I spent a total of 12 minutes on the date of the service which included preparing to see the patient, [id number] patient care, obtaining and/or reviewing separately obtained history, and performing a medically appropriate examination. This HANDP can be found in the Electronic Medical Record dated 12/16/2024. SIGNATURE: @Arben Calix PA-C@ DATE: December 22, 2024 TIME: 8:21 [facility] HospitalPNon [id number] Health System [facility] NOTESon [id number] Authentication Interface Message TextGo over imaging Headaches(behind eyes): eye hurt when moving, Pressure (pain ) ear to ear and down her neck Vision disturbances(blurred vision, double vision, blind spots or peripheral vision loss): No Tinnitus: Yes Neck/back pain: Yes Dizziness: Yes Nausea/Vomiting: Nauseous when laying down Belief episodes of blindness: No Laying down 4-5 Sitting up 7NormalProvider LocationsTranscription Authentication Interface Message TextTelemedicine Video Consent Patient and family are aware telemedicine technology will be utilized to conduct [id number] consult with Karolina Dangelo who is off site. Instructed no recordings will be made of this consult and patient confidentiality will be maintained at all times. All questions answered. Verbalized agreement to participation in telemedicine visit. Names of participants participating in visit other than provider and patient: None Location of patient: Work Location of provider: office Signed by: Kaycee Marrufo RN OFFICE CONSULTATION: 12/19/2024 [facility] Office PATIENT: Karolina Dangelo : 1985 NEUROSURGEON: Mandie Bender MD REFERRING: Yoan Ivey MD PRIMARY: No primary care provider on file. HPI CHIEF COMPLAINT Headaches HISTORY Karolina Dangelo is a 39 year old right-handed female who presents for evaluation of IIH. Reports hysterectomy in 2012 and in October 2021 she was started on hormones and she noticed blurry vision for the first time. Reports in February of 2022 she lost her right eye vision for 3 months and had lumbar puncture with opening pressure of 34. Also, reported she would wake up daily with her arms tingling and severe hip pain and extremity pain/heaviness. She was started on Diamox and Ozempic and lost 40 pounds. Symptoms resolved and medications were stopped. Reports in April 2023 to August 2023 she had multiple illnesses (COVID, strep, and flu). In August, developed posterior neck pressure, dizziness, imbalance, forgetfulness, and dysphagia. [facility] and completed a lumbar puncture with opening pressure above 30. She was restarted on Diamox. Symptoms did improve after. Reports starting in August 2024 started getting posterior neck pressure, headaches, and arm/leg weakness. Pain would improve with laying down. This lasted a couple months. Reports was taking 1500 mg Diamox per day and did get kidney stones. Reports she has lost 49 pounds. She has also tried numerous medications with Neurology for headaches. 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 Reports when symptoms flare up they are debilitating and last for about a month. For the past 3 months she denies vision concerns and is taking 500 mg Diamox in the morning and 250 mg at night. Denies improvement in symptoms with recent LP. Reports no improvement in symptoms until she took Depakote. Patient states she is planning cerebral angiogram with neurovascular in [place]. Will discuss possible stent placement with them. Also has appt with neuro-ophthalmology in Jan. Denies any vision concerns or issues. PAST MEDICAL HISTORY: Past Medical History[1] CURRENT MEDICATIONS: Current Outpatient Medications: chlorzoxazone (PARAFON FORTE DSC) 500 mg tablet, Take 500 mg by mouth every 6 hours as needed., Disp: , Rfl: nortriptyline (PAMELOR) 10 mg capsule, Take 10 mg by mouth in the morning., Disp: , Rfl: ketorolac (TORADOL) 10 mg tablet, Take 10 mg by mouth in the morning and 10 mg before bedtime., Disp: , Rfl: SURGICAL HISTORY: Past Surgical History[2] FAMILY HISTORY: Family History[3] SOCIAL HISTORY: Social History Socioeconomic History Marital status: Unable to Question Spouse name: Not on file Number of children: Not on file Years of education: Not on file Highest education level: Not on file Occupational History Not on file Tobacco Use Smoking status: Not on file Smokeless tobacco: Not on file Substance and Sexual Activity Alcohol use: Not on file Drug use: Not on file Sexual activity: Not on file Other Topics Concern Not on file Social History Narrative Not on file Social Drivers of Health Financial Resource Strain: Not on file Food Insecurity: No Food Insecurity (12/16/2024) Re[facility] from [facility] Hunger Vital Sign Within the past 12 months, you worried that your food would run out before you got the money to buy more.: Never true Within the past 12 months, the food you bought just didn't last and you didn't have money to get more.: Never true Transportation Needs: No Transportation Needs (12/16/2024) Received from [facility] PRAPARE - Transportation Lack of Transportation (Medical): No Lack of Transportation (Non-Medical): No Physical Activity: Not on file Stress: Not on file Social Connections: Not on file Intimate Partner Violence: Not on file Housing Stability: Low Risk (12/16/2024) Received from [facility] Housing Stability Vital Sign In the last 12 months, was there a time when you were not able to pay the mortgage or rent on time?: No In the past 12 months, how many times have you moved where you were living?: 0 At any time in the past 12 months, were you homeless or living in a mcc (including now)?: No ALLERGIES: Oxycodone-acetaminophen, Sulfa (sulfonamide antibioti (more content not included)...NormalProvider LocationsWashington County Memorial Hospital [id number] ID: [id number] Author: KRISTA GAMEZ PA-C Service: Hospital Medicine Author Type: Physician Journeyman Tool And Die Maker Type: Discharge Summary Filed: 12/17/2024 09:07 Note Text: Attestation signed by Ciro Hsu DO at 12/17/2024 9:43 AM Attending Note Department of Hospital Medicine Ciro Hsu DO SIGNATURE: Ciro Hsu DO PATIENT NAME: Karolina Nicole DATE: 12/17/2024 TIME: 9:43 AM PAGER/CONTACT #: [phone] DISCHARGE SUMMARY PATIENT NAME: Karolina Nicole ADMISSION DATE: 12/15/2024 DISCHARGE DATE: 12/17/2024 Attending Physician: Ciro Hsu DO Code Status: Full Code PCP: Yoan Ivey MD Highest Readmission Risk Score: 9 The 30 day readmissions risk score is derived from an internally validated risk model which evaluates patient level characteristics, utilization history, medication orders and lab results up until the day of discharge. Patients with a score of 39 or above are considered highest risk for readmission. Specific patient level drivers will be listed at the bottom of the summary. TRANSITIONS OF CARE CRITICAL ISSUES: LONG MEDICATION CHANGES: Stop tinazadine and start paraforte Nortriptyline 10 mg HS Toradol 10 mg q6 prn FOLLOW UP APPOINTMENTS: Endovascular Neurology, Neuropthamology and Neurology headache clinic 12/26/2024 in [facility] MA[facility] with BEBE THOMAS - II with Pulsatile Tinnitus, New Consult VV per MANDO/RONAL 2ND R/S from 12.27.24 [facility] with LLOYD SHERWOOD - Please schedule this patient for a 4 month return to clinic visit, the indication is IIH 01/20/2025 in [facility] MD with EMG 2 NEUR [facility] (MAX WEIGHT 400) - Disturbance of skin sensation [R20.9] LABS AND PROCEDURES PENDING AT DISCHARGE: REASON FOR HOSPITALIZATION/FINAL DIAGNOSIS: Acute on chronic migraine varriant HOSPITAL PROBLEMS: Active Hospital Problems Diagnosis POA Migraine headaches Yes Nicotine use disorder, F17.2 Yes Benign intracranial hypertension Yes Migraine without aura, not intractable, without status migrainosus Yes Resolved Hospital Problems No resolved problems to display. Hospital Course: Karolina Nicole was admitted for Acute on chronic migraine varriant. You were placed in observation for worsening acute on chronic episode of severe neck and head pain. You were given multiple medications for headaches including muscle relaxer's and anti-inflammatories. You were seen by the Neurology team and did not recommend any further inpatient testing. They suggested you may benefit from botox or nerve blocks in the back of your head. They recommended you continue follow up with neurophthalmology, Endovascular Neurology and the headache clinic. You were started on nortriptyline and muscles relaxer's. The muscle relaxer you wanted to try, we do not carry so we used methocarbamol (Robaxen) instead but this did not provide as much relief. You were discharged with prescriptions for Toradol, nortriptyline and a trial of parafon forte. OPERATIONS/PROCEDURE DURING THIS HOSPITALIZATION: * No surgery found * None No procedures performed ADDITIONAL PROVIDER TO PROVIDER INFORMATION: Karolina Nicole is a 39 year old female presented with past medical history of IIH, fibromyalgia, and migraines who presents to the ED with headache x 2 weeks. Patient has known migraine varriant and IIH. She has been seeking/attending reguarly follow up with the headache clinic Neurologist as well as Opthoneurology and has Endovascular Neurology appointment scheduled on 12/26/2024. The patient reported short term minmal relief with headache cocktails in the ED. Neurology was consulted and they did not recommend any further inpatient testing. Trial of nortriptyline and robaxen in lieu of not having parafon forte. However the parafon forte has worked in the past for her, therefore we will send her home with a prescription for that, toradol and nortriptyline. Given the small improvement with Toradol, I suspect diagnosis of occipital neuralgia is likely. I it has been discussed in prior headache clinic notes and our Neurology inpatient consult. However given Ophthalmology concern for narrowing of distal transverse sinsus agree with outpatient follow up with Endovascular Neurology as scheduled. Consulting Teams During Hospitalization: Treatment Team: Attending Provider: Ciro Hsu DO Primary Service: Krista Gamez PA-C Patient Condition at Discharge: Stable DISCHARGE DISPOSITION: Home/Self Care Discharge Physical Exam: VITAL SIGNS: BP 91/55 Pulse 70 Temp 36.4 ?C (97.5 ?F) (Oral) Resp 16 Ht 157.5 cm (5' 2 ) Wt 74.2 kg (163 lb 9.3 oz) SpO2 98% BMI 29.92 kg/m? General: Pleasant and cooperative female HEENT: Conjunctiva clear, mucous membranes moist. CV: S1 (more content not included)...[facility] [id number] PROGHNO ID: [id number] Author: NILSA LEWIS RN Service: Nursing Author Type: Registered Nurse Type: Nursing Progress Note Filed: 12/17/2024 10:20 Note Text: Other: Patient discharged to home with instructions given, verbalized understanding on medications, diet, activity and follow up.[facility] [id number] HEALTHHNO ID: [id number] Author: NILSA JUAN RT(R) Service: ? Author Type: Technologist Type: Allied Health Filed: 12/16/2024 02:49 Note Text: Radiology Service Progress Note DATE OF SERVICE: December 16, 2024 TIME: 2:49 AM PATIENT IDENTITY VERIFICATION COMPLETED USING TWO [...] PATIENT PRESENTS WITH AN IMPLANTABLE OR ATTACHED LEAD SHOP OPERATOR: No ALLERGIES: Reviewed and unchanged CONTRAST ALLERGY: NO. EXAM: CT -CONTRAST INDUCED NEPHROPATHY RISK FACTORS: Not applicable CREATININE: Creatinine Date Value Ref Range Status 12/15/2024 1.08 (H) 0.58 - 0.96 mg/dL Final 12/02/2024 1.02 (H) 0.58 - 0.96 mg/dL Final 09/22/2024 0.75 0.58 - 0.96 mg/dL Final Estimated Glomerular Filtration Rate Date Value Ref Range Status 12/15/2024 67 >=60 mL/min/1.73m? Final Comment: Estimated Glomerular Filtration [...] not accurately reflect actual GFR. P.O.C.T. RESULTS: N/A December 16, 2024 TREATMENT: N/A PERIPHERAL IV DATA: Inpatient - refer to LDA documentation RADIOLOGY DEPARTMENT: CT; Exam(s) Completed: CTA Brain and CTA Neck SIGNATURE: Nilsa Juan RT(R) PATIENT NAME: Karolina Nicole DATE: December 16, 2024 TIME: 2:49 AMNormalWestover Air Force Base HospitalBasi metabolic 2000 panelon [id number] gap [Moles/Vol]10 mmol/LNormal8-15Lindside HospitalComment on above:Order Comment: Specimen Type: BLOOD SPECIMENOrdering Facility: [facility] Address:[address] [place], [place] [address]Performed By: #### 24080- 2, ####RADHA LABORATORYCLIA [id number] [place] [address] [place] OF AMERICACalcium [Mass/Vol]8.8 mg/dLNormal8.5-10.2 Lindside HospitalComment on above:Order Comment: Specimen Type: BLOOD SPECIMENOrdering Facility: [facility] Address:[address] [place], [place] [address]Performed By: #### 80688-6, ####RADHA LABORATORYCLIA [id number] [place] [id number] [place] OF AMERICAChloride [Moles/Vol]111 mmol/DGcze56-468Lvxcnuuc HospitalComment on above:Order Comment: Specimen Type: BLOOD SPECIMENOrdering Facility: [facility] Address:[address] [place], [place] [address]Performed By: #### 23996-5, ####[facility] LABORATORYCLIA [id number] [place] [id number] [place] OF AMERICACO2 [Moles/Vol]18 mmol/LLow 22-30Lindside HospitalComment on above:Order Comment: Specimen Type: BLOOD SPECIMENOrdering Facility: [facility] Address:[address] [place], [place] [id number] By: #### 80909-8, ####NAT[facility] LABORATORYCLIA [id number] [place] [id number] [place] AMERICACreatinine [Mass/Vol]1.01 mg/dLHigh0.58-0.96[facility] Base HospitalComment on above:Order Comment: Specimen Type: BLOOD SPECIMENOrdering Facility: [facility] Address:[address] [place], [place] [address]Performed By: #### 59843-7, ####RADHA LABORATORYCLIA [id number] [place] [id number] [place] OF AMERICAeGFRcr SerPlBld CKD-EPI 896098 mL/min/1.73m???Normal>=60FaWilliams HospitalComment on above:Order Comment: Specimen Type: BLOOD SPECIMENOrdering Facility: [facility] Address:[address] [place], [place] [address]Result Comment: Estimated Glomerular Filtration Rate (eGFR) is calculated using the 2020 CKD-EPI creatinine equation. This equation utilizes serum creatinine, sex, and age as parameters. The creatinine assay has traceable calibration to isotope dilution-mass spectrometry. Refer to KDIGO guidelines for clinical interpretation. In patients with unstable renal function, e.g. those with acute kidney injury, the eGFR may not accurately reflect actual GFR.Performed By: #### 13389-4, ####RADHA LABORATORYCLIA [id number] [place] [id number] [place] AMERICAGlucose [Mass/Vol]137 mg/fXIcoq25-16[facility] Comment on above:Order Comment: Specimen Type: BLOOD SPECIMENOrdering Facility: [facility] Address:[address] [place], [place] [address]Result Comment: The [place] Diabetes Association (ADA) provides guidance for cutoff [...] Standards of Medical Care in Diabetes 2016, [place] [employer] Association. Diabetes Care. 2016.39(Suppl 1).Performed By: #### 14799-6, ####RADHA LABORATORYCLIA [id number] [place] [id number] [place] AMERICAPotassium [Moles/Vol]3.8 mmol/LNormal3.7-5.1FCutler Army Community HospitalComment on above:Order Comment: Specimen Type: BLOOD SPECIMENOrdering Facility: [facility] Address:[address] [place], [place] [address]Performed By: #### 31795-3, ####RADHA LABORATORYCLIA [id number] [address] OF AMERICASodium [Moles/Vol]139 mmol/TThvnsv391-980Brsseior HospitalComment on above:Order Comment: Specimen Type: BLOOD SPECIMENOrdering Facility: [facility] Address:[address] [place], [place] [address]Performed By: #### 18403- 2, ####[facility] LABORATORYCLIA [id number] [place] [id number] [place] AMERICAUrea nitrogen [Mass/Vol]18 mg/dLNormal7-21 [facility] on above:Order Comment: Specimen Type: BLOOD SPECIMENOrdering Facility: [facility] Address:[address] [place], [place] [address]Performed By: #### 07724-0, ####[facility] LABORATORYCLIA [id number] [place] [id number] [facility] OF AMERICACONSULTon [id number] ID: [id number] Author: DIXON ZENDEJAS MD, PhD Service: Neurology General Author Type: Resident Type: Consults Filed: 12/16/2024 20:00 Note Text: Attestation signed by Dixon Zendejas MD, PhD at 12/16/2024 8:00 PM Attending Note: Long findings confirmed. Patient examined. Discussed with the resident and the patient. Plan as outlined. Dixon Zendejas MD, PhD INITIAL CONSULT - GENERAL NEUROLOGY SERVICE DATE: 12/16/2024 SERVICE TIME: 10:40 AM Team Requesting Consult: Internal Medicine Current Attending Provider: Jesus Zhong MD Neurology was asked to evaluate Karolina Nicole, a 39 year old female. Our recommendations of care will be communicated by shared medical record. Subjective HPI: Karolina Nicole is a 39 year old Right Handed female with past medical history significant for IIH, nephrolithiasis, migraine, hysterectomy Neurology is consulted for migraine with hx of IIH 6/10 posterior neck ache with radiation to upper trapezius. Intermittent numbness previously evaluated by NCS and negative Mg panel. Extensive evaluation for IIH with upcoming referral to neuro-intervention scheduled to evaluate for possible transverse sinus stenosis in s/o IIH. She notes concern for a possible skin color change which she showed pictures on her phone to me that were described in a livedo reticularis like pattern. The pictures looked normal and likely suggestive of vein vasculature without obvious rash seen. She notes stable tinnitus. Occasional floaters. Recent evaluation by Dr. Sherwood with neuro-ophthalmology. Current headaches do not worsen with lying down and usually neck manipulation makes it somewhat more sensitive . She notes that this pain has been an ongoing problem. She wonders if she has had a diagnosis of Chiari I malformation that would explain her symptoms. Mrs. Nicole notes concern that is there an alternative explanation for all of her symptoms and if additional testing here would be warranted. Currently on valproic acid. As needed tizanidine. PRN nsaids without using amounts at risk for overuse headaches. Also taking multivitamin for additional preventative medication (Mg and riboflavin) Her main goals are to rule out additional secondary/red flag causes of her current symptoms along with increased neck pain relief. We did discuss her prior workup and treatments. We also noted that some features that she has are consistent with her history of migraine, and often go together sometimes with people who have a history of IIH. She does not believe her symptoms are consistent with a history of migraines. I explained ICHD-3 criteria on how headache types are diagnosed and her prior diagnoses. I explained chiari malformation diagnostic criteria and images of radiographic image examples of patients with chiari malformations which she does meet criteria at this time. Regardless on her ultimate diagnosis causing her symptoms, I offered my sympathies and our best intention to help her treat her symptoms as able. Noted expectation that her headaches are unlikely to be completely resolved in the hospital which she was agreeable with. She is amendable to considering occipital nerve block/botox if deemed to be beneficial to avoid oversedation. Current Facility-Administered Medications Medication Dose Route Frequency NaCl 0.9% iv flush bag 20 mL INTRAVENOUS PRN divalproex ER 500 mg tab(s) (DEPAKOTE ER) 500 mg ORAL AT BEDTIME cetirizine 10 mg tab(s) (ZYRTEC) 10 mg ORAL AT BEDTIME orphenadrine 60 mg injection (NORFLEX) 60 mg INTRAVENOUS ONCE hydrOXYzine pamoate 50 mg cap(s) (VISTARIL) 50 mg ORAL AT BEDTIME acetaZOLAMIDE SR 500 mg cap(s) (DIAMOX SEQUELS) 500 mg ORAL BID PAST MEDICAL HISTORY Diagnosis Date Fibromyalgia IIH [...] Family History Macular Degen No Family History ALLERGIES Allergen Reactions Adhesive Rash Latex Rash Levaquin [Levofloxa* Swelling (more content not included)...NormalFairview HospitalCTA HEAD W IVCONon [id number] HEAD W IVCON* * *Final Report* * * DATE OF [...] proximal brachiocephalic vessels. Carotid Stenosis: Right Common: No significant stenosis. [...] significant short segment stenosis of the proximal pilot station of Corbin. No outpouching to suggest aneurysm. No cutoff of the proximal anterior circulation second segments, proximal DIVERSITY INTERN, or arteries of cerebellum. No filling defect of the opacified dural venous sinuses to suggest thrombus. Suggestion of incidental partially empty sella. Guest Service Aide (topogram) images: IMPRESSION: No large vessel occlusion, evidence of aneurysm, dissection, or venous sinus thrombosis of the opacified sinuses. Arterial blood flow was measured to detect acute large vessel occlusion by computer aided detection software: Not Performed. Concordance between software and imaging review: Not Applicable. Music Orchestrator: ANA Transcribe Date/Time: Dec 16 2024 3:07A Dictated by : ABILIO MORENO MD This examination was interpreted and the report reviewed and electronically signed by: ABILIO MORENO MD on Dec 16 2024 3:22AM EST [id number] City Hospital NECK W IVCONon [id number] NECK W IVCON* * *Final Report* * * DATE OF [...] proximal brachiocephalic vessels. Carotid Stenosis: Right Common: No significant stenosis. [...] significant short segment stenosis of the proximal pilot station of [place]. No outpouching to suggest aneurysm. No cutoff of the proximal anterior circulation second segments, proximal DIVERSITY INTERN, or arteries of cerebellum. No filling defect of the opacified dural venous sinuses to suggest thrombus. Suggestion of incidental partially empty sella. Guest Service Aide (topogram) images: IMPRESSION: No large vessel occlusion, evidence of aneurysm, dissection, or venous sinus thrombosis of the opacified sinuses. Arterial blood flow was measured to detect acute large vessel occlusion by computer aided detection software: Not Performed. Concordance between software and imaging review: Not Applicable. Music Orchestrator: ANA Transcribe Date/Time: Dec 16 2024 3:07A Dictated by : ABILIO MORENO MD This examination was interpreted and the report reviewed and electronically signed by: ABILIO MORENO MD on Dec 16 2024 3:22AM EST [id number] Vincent Hospital NOTEon [id number] NOTEHNO ID: [id number] Author: CINDY PHIPPS RN Service: ? Author Type: Registered Nurse Type: ED Notes Filed: 12/16/2024 07:11 Note Text: Report given to Isabella [facility]Mal[facility] NOTEHNO ID: [id number] Author: CINDY PHIPPS RN Service: ? Author Type: Registered Nurse Type: ED Notes Filed: 12/16/2024 06:32 Note Text: ED to IP report completed. VS repeated and stable at the time of requesting transport.[facility] PROV NOTEon [id number] PORTIA NOTEHNO ID: [id number] Author: RICHARD GARCÍA MD Service: Emergency Medicine Author Type: Physician Type: ED Provider Notes Filed: 12/16/2024 07:20 Note Text: ED Provider Note Patient Name: Karolina Nicole : 1985 SERVICE DATE: 12/15/24 History Patient presents with: Headache: Pt states headache, neck pain, bilateral weakness, worsening over past 2.5 weeks, hx of IIH This is a 39-year-old female with a history of IIH presenting to the emergency department for evaluation of neck pain and headache. Symptoms been present for couple years, especially worse over the past couple weeks. She was admitted for IIH back in September, had an LP that did not resolve her symptoms. Previous LPs during IIH flareups have resolved her symptoms. Patient does not convinced that this current presentation is consistent with a flareup of her IIH. 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 History provided by: Patient manager zone used: No PAST MEDICAL HISTORY Diagnosis Date [...] (Cammie* Hives, Itching Review of Systems Constitutional: Negative. HENT: Negative. Eyes: Negative. Respiratory: Negative. Cardiovascular: Negative. Gastrointestinal: Negative. Genitourinary: Negative. Musculoskeletal: Positive for neck pain. Skin: Negative. Neurological: Positive for headaches. Psychiatric/Behavioral: Negative. Physical Exam Vitals BP Pulse Temp Temp src Resp SpO2 Weight Height 12/15/24 1842 12/15/24 1842 12/15/24 1800 12/15/24184112/15/24184112/15/241841 -- -- 106/73 79 36.8 ?C (98.2 ?F) Oral 16 98 % Physical Exam Vitals and nursing note reviewed. Constitutional: General: She is not in acute distress. Appearance: Normal appearance. She is well-developed. She is not ill-appearing, toxic-appearing or diaphoretic. HENT: Head: Normocephalic and atraumatic. Right Ear: Tympanic membrane, ear canal and external ear normal. Left Ear: Tympanic membrane, ear canal and external ear normal. Nose: Nose normal. Mouth/Throat: Mouth: Mucous membranes are moist. Eyes: Conjunctiva/sclera: Conjunctivae normal. Pupils: Pupils are equal, round, and reactive to light. Neck: Thyroid: No thyroid mass, thyromegaly or thyroid tenderness. Cardiovascular: Rate and Rhythm: Normal rate and regular rhythm. Heart sounds: No murmur heard. Pulmonary: Effort: Pulmonary effort is normal. No respiratory distress. Comments: Speaking in complete sentences without evidence of airway compromise Abdominal: General: Abdomen is flat. There is no distension. Musculoskeletal: General: No tenderness or deformity. Normal range of motion. Cervical back: Full passive range of motion without pain, normal range of motion and neck supple. No rigidity, torticollis or crepitus. No pain with movement, spinous process tenderness or muscular tenderness. Normal range of motion. Lymphadenopathy: Cervical: No cervical adenopathy. Right cervical: No superficial, deep or posterior cervical adenopathy. Left cervical: No superficial, deep or posterior cervical adenopathy. Skin: General: Skin is warm and dry. Capillary Refill: Capillary refill takes less than 2 seconds. Coloration: Skin is not jaundiced or pale. Findings: No erythema or rash. Neurological: General: No focal deficit present. Mental Status: She is alert and oriented to person, place, and time. Cranial Nerves: No cranial nerve deficit. Sensory: No sensory deficit. Motor: No weakness. Coordination: Coordination normal. Comments: NIH=0 Psychiatric: Mood and Affect: Mood normal. 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 I agree with the EUGENE's findings and plan as documented and have discussed the case and management of the patient's care with the EUGENE. Plan of care discussed with: Provider, RN, Patient. Signature: Jesus Zhong MD Date: December 16, 2024 Time: 4:52 PM [facility] OF [facility] MEDICINE HISTORY AND PHYSICAL EXAM SERVICE DATE: 12/16/2024 SERVICE TIME: 9:27 AM Primary Care Physician: Yoan Ivey MD NIGHT AND WEEKEND COVERAGE: EUREKA COVERAGE: 1030-5:30 please page / Coridea Chat me directly. Nights please page [phone] Subjective CHIEF COMPLAINT: headache HPI: This is a 39 year old female who presents with PHM of IIH, OA and tobacco abuse who presents to the ED with headache . Patient state that she does not like to all these episodes / flares headaches because they do not feel like her IIH headaches. She states that for the last 2 weeks she has had posterior / occipital neck pain which is a muscle tightness and associated with a burning / radiating shock wave pain from ear to ear. She states that sometimes her muscles in her jaw get so tight she has to wait for them to relax so she can swallow. She states that during the episodes at the height of them, she has wobbly knees, gets dizzy and stuttering of words. She states the last time she had issues an LP did not help. Her symptoms impact her activities of daily living and taking care of her kids. 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 Pain is better lying down. PAST MEDICAL HISTORY Diagnosis Date Fibromyalgia IIH [...] use: Not Currently Drug use: Not Currently PRIOR TO ADMISSION MEDICATIONS: Prior to Admission Medications Prescriptions Last Dose Informant Patient Reported? Taking? Cetirizine 10 mg cap 12/15/2024 Morning Yes Yes acetaZOLAMIDE (DIAMOX) 250 mg tablet No Yes Sig: Take 1 tablet by mouth every evening. Patient taking differently: Take 500 mg by mouth every evening. acetaZOLAMIDE SR (DIAMOX SEQUELS) 500 mg capsule No Yes Sig: Take 1 capsule by mouth two times a day. atogepant (QULIPTA) 60 mg tablet No No Sig: Take 1 tablet by mouth once daily. dextroamphetamine-amphetamine (ADDERALL) 20 mg tablet 12/15/2024 Noon Yes Yes Sig: Take 20 mg by mouth once daily. Patient taking differently: Take 20 mg by mouth two times a day. divalproex ER (DEPAKOTE ER) 500 mg 24 hr tablet 12/15/2024 Bedtime No Yes Sig: Take 1 tablet by mouth daily at bedtime. hydrOXYzine pamoate (VISTARIL) 50 mg capsule 12/13/2024 Bedtime Yes No Sig: Take 50 mg by mouth daily at bedtime. mv,calcium,min/iron/folic/vitK (MULTI FOR HER ORAL) 12/15/2024 Yes Yes tiZANidine (ZANAFLEX) 4 mg tablet Yes No Si tablet at bedtime as needed Orally Once a day Facility-Administered Medications: None ALLERGIES Allergen Reactions Adhesive Rash Latex Rash Levaquin [Levofloxa* Swelling Swelling tongue Morphine Angioedema Says tongue swells up, vomits, chest pain Nickel Rash, Unknown Oxycodone Rash Oxycodone-Acetamino* Rash Silk Other: See Comments Silk tape Sulfadiazine Rash Sulfamethoxazole-Tr* Swelling Adhesive Tape (Cammie* Hives, Itching REVIEW OF SYSTEM: A 12 point review of systems was complete and negative unless stated in the HPI Objective PHYSICAL EXAM: BP 94/52 Pulse 64 Temp (Src) 97.9 (Oral) Resp 16 Ht 5' 2 (1.58m) Wt 160 lb 15 oz (73.0kg) SpO2 98% BMI 29.43 kg/(m2). O2 Therapy: Room Air Physical Exam Performed: General: Pleasant and cooperative female HEENT: Conjunctiva clear, mucous membranes moist. CV: S1 and S2 clear and crisp no murmurs, gallops or rubs (more content not included)...NormalFairholzer medical center – jackson HospitalMagnesium SerPl-mCncon 10-02-4847Kibshfpdc [Mass/Vol]2.3 mg/dLNormal1.7-2.3Fairhol[facility] medical center – jackson HospitalComment on above:Order Comment: Specimen Type: BLOOD SPECIMENOrdering Facility: [facility] Address:[facility] [address] [place] [place], [place] [address]Performed By: #### 11640-8, 16085-0 ####RADHA LABORATORYCLIA [id number] [address]ETURSING PROGon [id number] PROGHNO ID: [id number] Author: DIONNA RYAN RN Service: Nursing Author Type: Registered Nurse Type: Nursing Progress Note Filed: 12/16/2024 07:50 Note Text: Transfer Note: PATIENT NAME: Karolina Nicole Patient Location: / Room: Patient transferred into room/unit PKT 4 in stable condition. Actions taken: No futher actions taken at this time. Will continue to monitor and check with patient. Patient belongings with patientNormalLindside HospitalBETA HCG, QUANTITATIVE FOR EDon [id number].beta subunit Qn2.1 m[IU]/mLNormal<5.0 [facility] HospitalComment on above:Order Comment: Specimen Type: BLOOD SPECIMENOrdering Facility: [facility] Address:[address] [place], [place] [address]Result Comment: NegativePerformed By: #### HCGED ####RADHA LABORATORYCLIA [id number] [place] [address] [place] AMERICACB W Auto Differential panel (Bld)on [id number] (Bld) [#/Vol]0.06 10*3/uLNormal<0.11[facility] HospitalComment on above:Order Comment: Specimen Type: BLOOD SPECIMENOrdering Facility: [facility] Address:[address] [place], [place] [address]Performed By: #### 06670-2 ####RADHA LABORATORYCLIA [id number] [place] [id number] [place] AMERICABasophils/100 WBC (Bld)0.8 %NormalWestover Air Force Base Hospital Comment on above:Order Comment: Specimen Type: BLOOD SPECIMENOrdering Facility: [facility] Address:[address] [place] [address] Performed By: #### 48430-8 ####RADHA LABORATORYCLIA [id number] [place] [id number] [place] AMERICADifferential cell count method Nom (Bld)AutoNormCooley Dickinson HospitalComment on above:Order Comment: Specimen Type: BLOOD SPECIMENOrdering Facility: [facility] Address:[address] [place], [place] [address]Performed By: #### 91741-1 ####RADHA LABORATORYCLIA [id number] [place] [id number] [place] AMERICAEosinophils (Bld) [#/Vol]0.39 10*3/uLNormal<0.46Falahey hospital & medical center HospitalComment on above:Order Comment: Specimen Type: BLOOD SPECIMENOrdering Facility: [facility] Address:[address] [place] [address] Performed By: #### 90545-0 ####RADHA LABORATORYCLIA [id number] [place] [id number] [place] AMERICAEosinophils/100 WBC (Bld)5.0 % NormalLindside HospitalComment on above:Order Comment: Specimen Type: BLOOD SPECIMENOrdering Facility: [facility] Address:[address] [place], [place] [address]Performed By: #### 68425-6 ####RADHA LABORATORYCLIA [id number] [place] [address] [place] Erythrocyte distribution width (RBC) [Ratio]11.9 %Bbecke90.5-15.0Lindside HospitalComment on above:Order Comment: Specimen Type: BLOOD SPECIMENOrdering Facility: [facility] Address:[address] [place], [place] [address]Performed By: #### 25377-7 ####RADHA LABORATORYCLIA [id number] [place] [id number] [place] AMERICAHematocrit (Bld) [Volume fraction]37.2 %Qmlapa95.0-46.0Falahey hospital & medical center HospitalComment on above:Order Comment: Specimen Type: BLOOD SPECIMENOrdering Facility: [facility] Address:[address] [place], [place] [address]Performed By: #### 40974- 8 ####RADHA LABORATORYCLIA [id number] [place] [id number] [place] AMERICAHemoglobin (Bld) [Mass/Vol]12.9 g/cJJthpyd68.5-15.5 Lindside HospitalComment on above:Order Comment: Specimen Type: BLOOD SPECIMENOrdering Facility: [facility] Address:[address] [place], [place] [address]Performed By: #### 20637-3 ####RADHA LABORATORYCLIA [id number] [place] [id number] [place] Immature granulocytes (Bld) [#/Vol]10*3/uLNormal<0.10Falahey hospital & medical center HospitalComment on above:Order Comment: Specimen Type: BLOOD SPECIMENOrdering Facility: [facility] Address:[address] [place], [place] [address]Performed By: #### 80054-6 ####RADHA LABORATORYCLIA [id number] [place] [address] [place] AMERICAImmature granulocytes/100 WBC (Bld)0.1 %Normal Lindside HospitalComment on above:Order Comment: Specimen Type: BLOOD SPECIMENOrdering Facility: [facility] Address:[address] [place], [place] [address]Performed By: #### 95906-2 ####RADHA LABORATORYCLIA [id number] [place] [address] [place] Lymphocytes (Bld) [#/Vol]4.06 10*3/uLHigh1.00-4.00Lindside HospitalComment on above:Order Comment: Specimen Type: BLOOD SPECIMENOrdering Facility: [facility] Address:[address] [place], [place] [address]Performed By: #### 03376-3 ####RADHA LABORATORYCLIA [id number] [place] [id number] [place] AMERICALymphocytes/100 WBC (Bld)52.3 %NormalLindside HospitalComment on above:Order Comment: Specimen Type: BLOOD SPECIMENOrdering Facility: [facility] Address:[address] [place], [place] [address]Performed By: #### 78059-9 ####RADHA LABORATORYCLIA [id number] [address]EC[address] (RBC) [Entitic mass]31.5 egPxgkbg37.0-34.0Fala[facility] HospitalComment on above:Order Comment: Specimen Type: BLOOD SPECIMENOrdering Facility: [facility] Address:[address] [place], [place] [address]Performed By: #### 58693-7 ####RADHA LABORATORYCLIA [id number] [address] (RBC) [Mass/Vol]34.7 g/xQQjslyq07.5-36.0Fala[facility] HospitalComment on above:Order Comment: Specimen Type: BLOOD SPECIMENOrdering Facility: [facility] Address:[address] [address] [place], [place] [address]Performed By: #### 13385-0 ####RADHA LABORATORYCLIA [id number] [address] (RBC) [Entitic vol] 90.7 hHFjokmy30.0-100.0Lindside HospitalComment on above:Order Comment: Specimen Type: BLOOD SPECIMENOrdering Facility: [facility] Address:[address] [place], [place] [address]Performed By: #### 43869-8 ####RADHA LABORATORYCLIA [id number] [address] OF AMERICAMonocytes (Bld) [#/Vol]0.50 10*3/uLNormal<0.87Lindside HospitalComment on above:Order Comment: Specimen Type: BLOOD SPECIMENOrdering Facility: [facility] Address:[address] [place], [place] [address]Performed By: #### 65317-3 ####RADHA LABORATORYCLIA [id number] [place] [id number] [place] OF AMERICAMonocytes/100 WBC (Bld)6.4 %NormalFalahey hospital & medical center HospitalComment on above:Order Comment: Specimen Type: BLOOD SPECIMENOrdering Facility: [facility] Address:[address] [place], [place] [address]Performed By: #### 60974-8 ####RADHA LABORATORYCLIA [id number] [place] [id number] [place] OF AMERICANeutrophils (Bld) [#/Vol]2.75 10*3/uLNormal1.45-7.50Lindside HospitalComment on above:Order Comment: Specimen Type: BLOOD SPECIMENOrdering Facility: [facility] Address:[address] [place], [place] [address]Performed By: #### 41174- 8 ####RADHA LABORATORYCLIA [id number] [place] [id number] [place] OF AMERICANeutrophils/100 WBC (Bld)35.4 %NormalWestover Air Force Base Hospital Comment on above:Order Comment: Specimen Type: BLOOD SPECIMENOrdering Facility: [facility] Address:[address] [place] [address] Performed By: #### 86637-9 ####RADHA LABORATORYCLIA [id number] [place] [id number] [place] OF AMERICANucleated RBC (Bld) [#/Vol] 10*3/uLNormal<0.01Lindside HospitalComment on above:Order Comment: Specimen Type: BLOOD SPECIMENOrdering Facility: [facility] Address:[address] [place], [place] [address]Performed By: #### 46336-3 ####RADHA LABORATORYCLIA [id number] [place] [id number] [place] OF AMERICANucleated RBC/100 WBC (Bld) [Ratio]0.0 /100 WBCNoalWestover Air Force Base Hospital Comment on above:Order Comment: Specimen Type: BLOOD SPECIMENOrdering Facility: [facility] Address:[address] [place] [address] Performed By: #### 35208-2 ####RADHA LABORATORYCLIA [id number] [place] [id number] [place] OF AMERICAPlatelet mean volume (Bld) [Entitic vol]9.4 fLNormal9.0-12.7Fmurphy army hospital HospitalComment on above:Order Comment: Specimen Type: BLOOD SPECIMENOrdering Facility: [facility] Address:[address] [place], [place] [address]Performed By: #### 38264- 8 ####RADHA LABORATORYCLIA [id number] [place] [id number] [facility] COUNTY HOSPITALPlatelets (Bld) [#/Vol]313 10*3/cAFkitgp989-813Wlnzdodd HospitalComment on above:Order Comment: Specimen Type: BLOOD SPECIMENOrdering Facility: [facility] Address:[address] [place], [place] [address]Performed By: #### 39450-8 ####RADHA LABORATORYCLIA [id number] [place] [id number] [facility] HOSPITALRB (d) [#/Vol]4.10 10*6/uLNormal3.90-5.20[facility] HospitalComment on above:Order Comment: Specimen Type: BLOOD SPECIMENOrdering Facility: [facility] Address:[address] [place], [place] [address]Performed By: #### 30824-5 ####RADHA LABORATORYCLIA [id number] [place] [id number] [facility] HOSPITALW (d) [#/Vol]7.77 10*3/uLNormal3.70-11.00F[facility] HospitalComment on above:Order Comment: Specimen Type: BLOOD SPECIMENOrdering Facility: [facility] Address:[address] [place], [place] [address]Performed By: #### 13391-2 ####RADHA LABORATORYCLIA [id number] [place] [id number] [facility] HOSPITALComprehensive metabolic 2000 panelon 12-15-2024 Albumin [Mass/Vol]4.4 g/dLNormal3.9-4.9F[facility] HospitalComment on above:Order Comment: Specimen Type: BLOOD SPECIMENOrdering Facility: [facility] Address:[address] [place], [place] [address]Performed By: #### 09297- 8 ####RADHA LABORATORYCLIA [id number] [place] [address] [place] OF AMERICAALP [Catalytic activity/Vol]72 U/WZpdozq77-182Qkjwpisv HospitalComment on above:Order Comment: Specimen Type: BLOOD SPECIMENOrdering Facility: [facility] Address:[address] [place], [place] [address]Performed By: #### 65497-9 ####RADHA LABORATORYCLIA [id number] [place] [id number] [place] OF AMERICAALT [Catalytic activity/Vol]18 U/LNormal7-38[facility] HospitalComment on above:Order Comment: Specimen Type: BLOOD SPECIMENOrdering Facility: [facility] Address:[address] [place], [place] [address]Performed By: #### 42256-8 ####RADHA LABORATORYCLIA [id number] [place] [id number] [place] OF AMERICAAnion gap [Moles/Vol]13 mmol/LNormal8-15[facility] HospitalComment on above:Order Comment: Specimen Type: BLOOD SPECIMENOrdering Facility: [facility] Address:[address] [place], [place] [address]Performed By: #### 23415-7 ####RADHA LABORATORYCLIA [id number] [place] [id number] [place] OF AMERICAAST [Catalytic activity/Vol]21 U/YKwfshf54-75Wpmmzxdg HospitalComment on above:Order Comment: Specimen Type: BLOOD SPECIMENOrdering Facility: [facility] Address:[address] [place], [place] [address]Performed By: #### 62946-7 ####RADHA LABORATORYCLIA [id number] [place] [id number] [place] OF AMERICABilirubin [Mass/Vol]0.2 mg/dLNormal0.2-1.3Fmurphy army hospital HospitalComment on above:Order Comment: Specimen Type: BLOOD SPECIMENOrdering Facility: [facility] Address:[address] [place], [place] [address]Performed By: #### 89569-0 ####RADHA LABORATORYCLIA [id number] [place] [id number] [place] AMERICACalcium [Mass/Vol]9.3 mg/dLNormal8.5-10.2Fmurphy army hospital HospitalComment on above:Order Comment: Specimen Type: BLOOD SPECIMENOrdering Facility: [facility] Address:[address] [place], [place] [address]Performed By: #### 30054-9 ####RADHA LABORATORYCLIA [id number] [place] [id number] [place] OF AMERICAChloride [Moles/Vol]109 mmol/OOaan68-319Zlxfeguh HospitalComment on above:Order Comment: Specimen Type: BLOOD SPECIMENOrdering Facility: [facility] Address:[address] [place], [place] [address]Performed By: #### 42378-7 ####RADHA LABORATORYCLIA [id number] [place] [address] [place] AMERICACO2 [Moles/Vol]20 mmol/RFdq78-95Vdiytycn Hospital Comment on above:Order Comment: Specimen Type: BLOOD SPECIMENOrdering Facility: [facility] Address:[address] [place] [address] Performed By: #### 57539-5 ####RADHA LABORATORYCLIA [id number] [place] [address] [place] AMERICACreatinine [Mass/Vol]1.08 mg/dLHigh0.58-0.96Lindside HospitalComment on above:Order Comment: Specimen Type: BLOOD SPECIMENOrdering Facility: [facility] Address:[address] [place], [place] [address]Performed By: #### 87335-3 ####RADHA LABORATORYCLIA [id number] [place] [id number] [place] OF AMERICAeGFRcr SerPlBld CKD-EPI 071326 mL/min/1.73m???Normal>=60[facility] HospitalComment on above:Order Comment: Specimen Type: BLOOD SPECIMENOrdering Facility: [facility] Address:[address] [place], [place] [address]Result Comment: Estimated Glomerular Filtration Rate (eGFR) is [...] accurately reflect actual GFR. Performed By: #### 93380-4 ####RADHA LABORATORYCLIA [id number] [place] [id number] [place] OF AMERICAGlucose [Mass/Vol]93 mg/dL Abterj47-59Emlvyqps HospitalComment on above:Order Comment: Specimen Type: BLOOD SPECIMENOrdering Facility: [facility] Address:[address] [place], [place] [address]Result Comment: The [place] Diabetes Association (ADA) provides guidance for cutoff [...] Standards of Medical Care in Diabetes 2016, [place] [employer]. Diabetes Care. 2016.39(Suppl 1).Performed By: #### 08689-7 ####RADHA LABORATORYCLIA [id number] [place] [id number] [place] OF AMERICAPotassium [Moles/Vol]3.6 mmol/LLow3.7-5.1FCutler Army Community HospitalComment on above:Order Comment: Specimen Type: BLOOD SPECIMENOrdering Facility: [facility] Address:[address] [place] [address]Performed By: #### 42984-1 ####RADHA LABORATORYCLIA [id number] [place] [id number] [place] OF AMERICAProtein [Mass/Vol]6.4 g/dLNormal6.3-8.0[facility] HospitalComment on above:Order Comment: Specimen Type: BLOOD SPECIMENOrdering Facility: [facility] Address:[address] [place], [place] [address]Performed By: #### 19158-8 ####RADHA LABORATORYCLIA [id number] [place] [id number] [place] AMERICASodium [Moles/Vol]142 mmol/BOkpsrd368-663Tlyhojjv HospitalComment on above:Order Comment: Specimen Type: BLOOD SPECIMENOrdering Facility: [facility] Address:[address] [place], [place] [address]Performed By: #### 78590-1 ####RADHA LABORATORYCLIA [id number] [place] [id number] [place] AMERICAUrea nitrogen [Mass/Vol]19 mg/dLNormal7-21Lindside HospitalComment on above:Order Comment: Specimen Type: BLOOD SPECIMENOrdering Facility: [facility] Address:[address] [place], [place] [address]Performed By: #### 15072-9 ####RADHA LABORATORYCLIA [id number] [place] [id number] [place] OF AMERICAED NOTEon 45-00-8710KA NOTEHNO ID: [id number] Author: SERENITY HALEY RN Service: ? Author Type: Registered Nurse Type: ED Notes Filed: 12/15/2024 23:52 Note Text: Bed: 20-ED Expected date: Expected time: Means of arrival: Comments: triageNoBoston [facility] for [facility] HospitalED Triage Noteon 44-75-0560OE Triage NoteHNO ID: [id number] Author: AYSHA CHINCHILLA DO Service: Emergency Medicine Author Type: Physician Type: ED Triage Notes Filed: 12/15/2024 18:51 Note Text: ED TRIAGE PROVIDER NOTE Patient Name: Karolina Nicole Service Date: 12/15/24 BRIEF HPI: This is a 39 year old female who presents to the ED with: hx of IIH. Headache, neck pain. Bilateral leg weakness. Has had similar symptoms in the past with IIH, relieved with LP, but did not improve with most recent LP. Symptoms have been worsening x 2.5 weeks. BRIEF EXAM: NAD Awake and Alert Non labored breathing No focal weakness. No facial droop. INITIAL WORKUP AND DECISION MAKING: Orders Placed This Encounter COMPREHENSIVE METABOLIC PANEL (BMP+LFT) CBC + AUTO DIFF Urinalysis w Microscopic, reflex Culture BETA HCG, QUANTITATIVE FOR ED SIGNATURE: Aysha Chinchilla, [facility] HospitalUrinalysis complete panel (U)on 82-76-4092Nnftctzet Ql (U)NegativeNormalNegativeLindside Hospital Comment on above:Order Comment: Specimen Type: URINE SPECIMENOrdering Facility: [facility] Address:[address] [place] [address] Performed By: #### 18465-2 ####RADHA LABORATORYCLIA [id number] [place] [id number] [place] OF AMERICAClarity (Unsp spec)Turbid AbnormalClearFmurphy army hospital HospitalComment on above:Order Comment: Specimen Type: URINE SPECIMENOrdering Facility: [facility] Address:[address] [place], [place] [address]Performed By: #### 24490-3 ####[facility] LABORATORYCLIA [id number] [place] [id number] [place] AMERICAColor (U)Light YellowNormalYellowLindside HospitalComment on above:Order Comment: Specimen Type: URINE SPECIMENOrdering Facility: [facility] Address:[address] [place], [place] [address]Performed By: #### 07804-6 ####RADHA LABORATORYCLIA [id number] [place] [id number] [place] AMERICAEpithelial cells LM.HPF (Urine sed) [#/Area]FewNormal Lindside HospitalComment on above:Order Comment: Specimen Type: URINE SPECIMENOrdering Facility: [facility] Address:[address] [place], [place] [address]Performed By: #### 02783-0 ####[facility] LABORATORYCLIA [id number] [place] [id number] [place] AMERICAGlucose Test strip (U) [Mass/Vol]NegativeNormalTrace, NegativeLindside HospitalComment on above:Order Comment: Specimen Type: URINE SPECIMENOrdering Facility: [facility] Address:[address] [place] [address] Performed By: #### 98195-7 ####RADHA LABORATORYCLIA [id number] [place] [id number] [place] AMERICAHemoglobin Ql (U)Negative NormalNegative, TraceFalahey hospital & medical center HospitalComment on above:Order Comment: Specimen Type: URINE SPECIMENOrdering Facility: [facility] Address:[address] [place], [place] [address]Performed By: #### 06559-4 ####RADHA LABORATORYCLIA [id number] [place] [address] [place] AMERICAKetones Ql (U)NegativeNormalNegative, TraceLindside HospitalComment on above:Order Comment: Specimen Type: URINE SPECIMENOrdering Facility: [facility] Address:[address] [place], [place] [address]Performed By: #### 23965-6 ####RADHA LABORATORYCLIA [id number] [place] [address] [place] AMERICALeukocyte esterase Test strip Ql (U)NegativeNormal Negative, 25 Deja/uLFalahey hospital & medical center HospitalComment on above:Order Comment: Specimen Type: URINE SPECIMENOrdering Facility: [facility] Address:[address] [place], [place] [address]Performed By: #### 54232-2 ####RADHA LABORATORYCLIA [id number] [place] [id number] [place] AMERICANitrite Ql (U)NegativeNormalNegativeLindside HospitalComment on above: Order Comment: Specimen Type: URINE SPECIMENOrdering Facility: [facility] Address:[address] [place], [place] [address]Performed By: #### 98735- 8 ####RADHA LABORATORYCLIA [id number] [place] [id number] [place] AMERICApH (U)7.0 [pH]Normal5.0-8.0Lindside HospitalComment on above:Order Comment: Specimen Type: URINE SPECIMENOrdering Facility: [facility] Address:[address] [place], [place] [address]Performed By: #### 68328-3 ####NATASHAKO LABORATORYCLIA [id number] [place] [id number] [place] AMERICAProtein (U) [Mass/Vol]NegativeNormalTrace, NegativeFalahey hospital & medical center HospitalComment on above:Order Comment: Specimen Type: URINE SPECIMENOrdering Facility: [facility] Address:[address] [place], [place] [address]Performed By: #### 20705-6 ####RADHA LABORATORYCLIA [id number] [place] [id number] [place] OF MART[facility] MEM[facility]IAL HOSPITALRBC LM.HPF (Urine sed) [#/Area]0-3 /HPFNormal0-3 /HPFLindside HospitalComment on above:Order Comment: Specimen Type: URINE SPECIMENOrdering Facility: [facility] Address:[address] [place], [place] [address]Performed By: #### 89639-6 ####RADHA LABORATORYCLIA [id number] [place] [address] [place] [facility] HOSPITALSpecific gravity (U) [Rel density]1.013Normal 1.005-1.030Lindside HospitalComment on above:Order Comment: Specimen Type: URINE SPECIMENOrdering Facility: [facility] Address:[address] [place], [place] [address]Performed By: #### 80891-8 ####RADHA LABORATORYCLIA [id number] [place] [id number] [place] Urobilinogen Ql (U)NormalNormalNormalLindside HospitalComment on above:Order Comment: Specimen Type: URINE SPECIMENOrdering Facility: [facility] Address:[address] [place], [place] [address]Performed By: #### 48328- 8 ####RADHA LABORATORYCLIA [id number] [place] [address] [place] AMERICAWBC LM.HPF (Urine sed) [#/Area]0-5 /HPFNormal0-5 /HPF [facility] HospitalComment on above:Order Comment: Specimen Type: URINE SPECIMENOrdering Facility: [facility] Address:[address] [place] [place], [place] [address]Performed By: #### 70123-1 ####EUREKA LABORATORYCLIA [id number] [address] STATES OF M[facility] MEM[facility]IAL HOSPITALCNPNon 69-86-3682WIIMDoespwntc (NEADFV) KAROLINA NICOLE ([id number]) 1985 F Date Time Provider Department 12/14/24 LISANDRO GONSALEZ NEADFV During your visit today, we recorded the following information about you: Gamal Smith 12/14/2024 12:19 PM Signed Patient called, one of her EMG orders got canceled during the appointment. She stated there are two parts to the test. One EMG was completed. She would like to know if an order can be placed, and once done, can she notify to schedule. Patient ph# [phone] Kathy Olmos RN 12/14/2024 2:21 PM Signed Called pt Aware order corrected and PSS will reach out to schedule EMG Kathy Olmos [facility] [place] Allergies As of Date: 12/14/2024 Noted Allergy Reaction ADHESIVE 03/11/2012 2 - [...] - Hives 9 - Itching Date Reviewed: 12/13/2024 Reviewed by: Lloyd Sherwood MD - Fully Assessed Reason for Visit: Orders [681] Prescriptions as of 02/15/2025 - divalproex ER (DEPAKOTE ER) 500 mg 24 hr tablet Take 1 tablet by mouth two times a day. - magnesium oxide (MAG-OX) 400 mg (241.3 mg magnesium) tablet Take 1 tablet by mouth once daily. - SINGULAIR 10 mg tablet Take 10 mg by mouth daily at bedtime. - dextroamphetamine-amphetamine (ADDERALL) 20 mg tablet Take 1 tablet by mouth two times a day. - hydrOXYzine pamoate (VISTARIL) 50 mg capsule Take 50 mg by mouth daily at bedtime. - Cetirizine 10 mg cap - mv,calcium,min/iron/folic/vitK (MULTI FOR HER ORAL) Problem List As Of Date 12/14/2024 Noted Resolved Migraine without aura, not intractable, without*10/07/2024 Encounter Status:Closed by GAMAL SMITH on 02/15/25[facility] CNPNNormalOhiohealth Grant Medical CenterACETYLCHOLINE REC BINDING ABon 12-13-2024 ACETYLCHOLINE BINDING, QUALNegativeNormalNegativeOhiohealth Grant Medical Center Comment on above:Order Comment: Specimen Type: BLOOD SPECIMENOrdering Facility: [facility] Address:[address] [place], [place] [address]Result Comment: Anti-acetylcholine receptor binding antibody test is used as an aid in diagnosis ofmyasthenia gravis. A negative result cannot exclude myasthenia gravis. Clinical correlation is required.Performed By: #### ACHRAB ####[facility] LABCLIA [id number] [place] [address] [place] AMERICAAcetylcholine receptor binding Ab (S) [Moles/Vol] <0.02Normal<0.21Ohiohealth Grant Medical CenterComment on above:Order Comment: Specimen Type: BLOOD SPECIMENOrdering Facility: [facility] Address:[address] [place], [place] [address]Performed By: #### ACHRAB ####[facility] LABCLIA [id number] [address] STATES OF AMERICAACETYLCHOLINE REC BLOCKING ABon 60-18-3881PNKXPOOOCGAPV BLOCKING, QUALNegativeNormalNegativeTrumbull Regional Medical Center on above:Order Comment: Specimen Type: BLOOD SPECIMENOrdering Facility: [facility] Address:[address] [place], [place] [address]Result Comment: Anti-acetylcholine receptor blocking antibody test is used as an aid in diagnosis of myasthenia gravis. A negative result cannot exclude myasthenia gravis. Clinical correlation is required.Performed By: #### ACEBAB ####[facility] LABCLIA [id number] [address]ETAcetylcholine receptor blocking Ab/Acetylcholine Ab.total (S) [Molar fraction]<13Normal<21[facility] on above:Order Comment: Specimen Type: BLOOD SPECIMENOrdering Facility: [facility] Address:[address] [place], [place] [address]Performed By: #### ACEBAB ####[facility] LABIA [id number] [address] OF [place] ACETYLCHOLINE RECEPTOR MODULATING ANTIBODYon 39-86-9118NBOEGKEIKHAOI RECEPT/MODULATING0 %Normal<=45[facility] on above:Order Comment: Specimen Type: BLOOD SPECIMENOrdering Facility: [facility] Address:[address] [place], [place] [address]Result Comment: INTERPRETIVE INFORMATION: Acetylcholine Modulating Ab Negative .......... 0-45 percent modulating Positive .......... 46 percent or greater modulatingApproximately 85-90 percent of patients with myasthenia gravis(MG) express antibodies to the acetylcholine receptor (AChR),which can be divided into binding, blocking, and modulatingantibodies. Binding antibody can activate complement and lead toloss of AChR. Blocking antibody may impair binding ofacetylcholine to the receptor, leading to poor muscle contraction.Modulating antibody causes receptor endocytosis resulting in lossof AChR expression, which correlates most closely with clinicalseverity of disease. Approximately 10-15 percent of individualswith confirmed myasthenia gravis have no measurable binding,blocking, or modulating antibodies.This test was developed and its performance characteristicsdetermined by [employer]. It has not been cleared orapproved by the [place] Food and Drug Administration. This test wasper formed in a CLIA certified laboratory and is intended forclinical purposes.Performed By: [employer] [place], [place] [address]Sjbfaqqtax Director: Haseeb Schwartz MD, PhDCLIA Number: [id number] Performed By: #### ACEMOD ####[facility] [id number] [place], [place] [address]VCJ(NEURO/NI)on 12-24-8019Llnevxn can be seen in attached scanned documents. If you are a patient reviewing this test result, call the doctor who ordered the test with any questions. [facility]UROLOGICAL INSTITUTEOhioHealth [facility] OUTSIDE IMAGESon 43-38-3188Evlo exam is non-reportable and has been placed in the imaging system for conveyance of charges and/or patient tracking and may or may not be resulted on elsewhere in the [facility] system.[facility] metabolic 2000 panelon 03-85-8460[place] gap [Moles/Vol]9 mmol/LNormal8-15[facility] on above:Order Comment: Specimen Type: BLOOD SPECIMENOrdering Facility: [facility] Address:[address] [place], [place] [address]Performed By: #### 88259-3 ####[facility] LABCLIA [id number] [place], [place] [address]Igpooom [Mass/Vol]9.4 mg/dL Normal8.5-10.2CDayton Children's Hospital on above:Order Comment: Specimen Type: BLOOD SPECIMENOrdering Facility: [facility] Address:[address] [place] [address]Xouredehg By: #### 18710-9 ####[facility] LABCLIA [id number] [place] [address] Chloride [Moles/Vol]111 mmol/QAukc45-511LehadrkrjTrumbull Regional Medical Center on above:Order Comment: Specimen Type: BLOOD SPECIMENOrdering Facility: [facility] Address:[address] [place], [place] [address]Performed By: #### 88576-1 ####[facility] LABCLIA [id number] [place], [place] [address]RZ6 [Moles/Vol]21 mmol/ODfr53-88OnhoagxszTrumbull Regional Medical Center on above:Order Comment: Specimen Type: BLOOD SPECIMENOrdering Facility: [facility] Address:[address] [place], [place] [address]Performed By: #### 42111-2 ####[facility] LABCLIA [id number] [place], [place] [address]Osixeewutj [Mass/Vol]1.02 mg/dL High0.58-0.96[facility] on above:Order Comment: Specimen Type: BLOOD SPECIMENOrdering Facility: [facility] Address:[address] [place], [place] [address]Performed By: #### 51049-4 ####[facility] LABCLIA [id number] [place] [address] eGFRcr SerPlBld CKD-EPI 841233 mL/min/1.73m???Normal>=60[facility] on above:Order Comment: Specimen Type: BLOOD SPECIMENOrdering Facility: [facility] Address:[address] [place], [place] [address]Result Comment: Estimated Glomerular Filtration Rate (eGFR) is [...] accurately reflect actual GFR. Performed By: #### 17209-9 ####[facility] LABCLIA [id number] [place], [place] [address]Jimtrbl [Mass/Vol]95 mg/dL Wntdvo31-37GvqdhojgqTrumbull Regional Medical Center on above:Order Comment: Specimen Type: BLOOD SPECIMENOrdering Facility: [facility] Address:[address] [place], [place] [address]Result Comment: The [place] Diabetes Association (ADA) provides guidance for cutoff values for fasting glucose and random glucose. The ADA defines fasting as no caloric intake for at least 8 hours. F asting plasma glucose results between 100 to 125 mg/dL indicate increased risk for diabetes (prediabetes).Fasting plasma glucose results greater than or equal to 126 mg/dL meet the criteria for diagnosis of diabetes. In the absence of unequivocal hyperglycemia, results should be confirmed by repeattesting. In a patient with classic symptoms of hyperglycemia or hyperglycemic crisis, random plasmaglucose results greater than or equal to 200 mg/dL meet the criteria for diagnosis of diabetes.Reference: Standards of Medical Care in Diabetes 2016, [place] [employer]. Diabetes Care. 2016.39(Suppl 1).Performed By: #### 12858-0 ####[facility] LABCLIA [id number] [place], [place] [address]Ztsaxjetp [Moles/Vol]3.9 mmol/LNormal3.7-5.1 [facility] on above:Order Comment: Specimen Type: BLOOD SPECIMENOrdering Facility: [facility] Address:[address] [place], [place] [address]Performed By: #### 79313-0 ####[facility] LABCLIA [id number] [place], [place] [address]Mowvsa [Moles/Vol]141 mmol/DVjxjas159-604RfeuiowmtTrumbull Regional Medical Center on above: Order Comment: Specimen Type: BLOOD SPECIMENOrdering Facility: [facility] Address:[address] [place], [place] [address]Performed By: #### 80721- 2 ####[facility] LABCLIA [id number] [place], [place] [address]Qyqi nitrogen [Mass/Vol]10 mg/dLNormal7-21[facility] on above:Order Comment: Specimen Type: BLOOD SPECIMENOrdering Facility: [facility] Address:[address] [place], [place] [address]Performed By: #### 83158-8 ####[facility] LABCLIA [id number] [place], [place] [address]RCY panel Auto (Bld)on 51-82-1759Loswhjeyjiv distribution width (RBC) [Ratio]12.2 %Normal 11.5-15.0[facility] on above:Order Comment: Specimen Type: BLOOD SPECIMENOrdering Facility: [facility] Address:[address] [place], [place] [address]Performed By: #### 24931-5 ####[facility] LABCLIA [id number] [place] [address] Hematocrit (Bld) [Volume fraction]39.1 %Mkjwhs52.0-46.0[facility] on above:Order Comment: Specimen Type: BLOOD SPECIMENOrdering Facility: [facility] Address:[address] [place], [place] [address]Performed By: #### 25112-4 ####[facility] LABCLIA [id number] [place], [place] [address]Pwlmkdlvhp (Bld) [Mass/Vol]13.8 g/dDDitplz79.5-15.5CDayton [facility] on above:Order Comment: Specimen Type: BLOOD SPECIMENOrdering Facility: [facility] Address:[address] [place], [place] [address]Performed By: #### 54686-4 ####[facility] LABCLIA [id number] [place], [place] [address]POT (RBC) [Entitic mass]31.9 vsIfvdfe93.0-34.0[facility] on above:Order Comment: Specimen Type: BLOOD SPECIMENOrdering Facility: [facility] Address:[address] [place], [place] [address]Performed By: #### 33219-6 ####[facility] LABCLIA [id number] [place], [place] [address]JWBI (RBC) [Mass/Vol]35.3 g/ePHepzbx94.5-36.0[facility] on above: Order Comment: Specimen Type: BLOOD SPECIMENOrdering Facility: [facility] Address:[address] [place], [place] [address]Performed By: #### 48525- 2 ####[facility] LABIA [id number] [place], [place] [address]NDR (RBC) [Entitic vol]90.5 kIVjkbob24.0-100.0[facility] on above:Order Comment: Specimen Type: BLOOD SPECIMENOrdering Facility: [facility] Address:[address] [place], [place] [address]Performed By: #### 68387-7 ####[facility] LABIA [id number] [place], [place] [address]Kaajywkdc RBC (Bld) [#/Vol]10*3/uLNormal<0.01[facility] on above:Order Comment: Specimen Type: BLOOD SPECIMENOrdering Facility: [facility] Address:[address] [place], [place] [address]Performed By: #### 02759- 2 ####[facility] LABCLIA [id number] [place], [place] [address]Wehxmxyb mean volume (Bld) [Entitic vol]9.4 fLNormal 9.0-12.7CDayton Children's Hospital on above:Order Comment: Specimen Type: BLOOD SPECIMENOrdering Facility: [facility] Address:[address] [place], [place] [address]Performed By: #### 37691-3 ####[facility] LABCLIA [id number] [place], [place] [address]Acxfhviaw (Bld) [#/Vol]292 10*3/hHZdnwsz091-200SkfyixtgkTrumbull Regional Medical Center on above: Order Comment: Specimen Type: BLOOD SPECIMENOrdering Facility: [facility] Address:[address] [place], [place] [address]Performed By: #### 44332- 2 ####[facility] LABCLIA [id number] [place], [place] [address]AHY (Bld) [#/Vol]4.32 10*6/uLNormal3.90-5.20[facility] on above:Order Comment: Specimen Type: BLOOD SPECIMENOrdering Facility: [facility] Address:[address] [place], [place] [address]Performed By: #### 59190-2 ####[facility] LABCLIA [id number] [place], [place] [address]LDZ (Bld) [#/Vol]7.25 10*3/uLNormal3.70-11.00[facility] on above: Order Comment: Specimen Type: BLOOD SPECIMENOrdering Facility: [facility] Address:[address] [place], [place] [address]Performed By: #### 30196- 2 ####[facility] LABCLIA [id number] [place], [place] [address]HP OUTSIDE IMAGESon 50-73-9286Pjmj exam is non-reportable and has been placed in the imaging system for conveyance of charges and/or patient tracking and may or may not be resulted on elsewhere in the [facility] system.[facility] HealthThis exam is non- reportable and has been placed in the imaging system for conveyance of charges and/or patient tracking and may or may not be resulted on elsewhere in the [facility] system.[facility] HealthThis exam is non- reportable and has been placed in the imaging system for conveyance of charges and/or patient tracking and may or may not be resulted on elsewhere in the [facility] system.[facility] ColumbusThis exam is non- reportable and has been placed in the imaging system for conveyance of charges and/or patient tracking and may or may not be resulted on elsewhere in the [facility] system.[facility] Of ColumbusPROGRESS NOTESon 22-15-6539Ijgqfrvcycplx Authentication Interface Message TextTelemedicine Video Consent Patient and family are aware telemedicine technology will be utilized to conduct pzci-rm-hyhp consult with Karolina Dangelo who is off site. Instructed no recordings will be made of this consult and patient confidentiality will be maintained at all times. All questions answered. Verbalized agreement to participation in telemedicine visit. Names of participants participating in visit other than provider and patient: None Location of patient: Work Location of provider: office Signed by: Livia Giordano APRN OFFICE CONSULTATION: 11/08/2024 [facility] Office PATIENT: Karolina Dangelo : 1985 NEUROSURGEON: Mandie Bender MD REFERRING: Yoan Ivey MD PRIMARY: No primary care provider on file. HPI CHIEF COMPLAINT Headaches HISTORY Karolina Dangelo is a 39 year old right-handed female who presents for evaluation of IIH. Reports hysterectomy in 2012 and in October 2021 she was started on hormones and she noticed blurry vision for the first time. Reports in February of 2022 she lost her right eye vision for 3 months and had lumbar puncture with opening pressure of 34. Also, reported she would wake up daily with her arms tingling and severe hip pain and extremity pain/heaviness. She was started on Diamox and Ozempic and lost 40 pounds. Symptoms resolved and medications were stopped. Reports in April 2023 to August 2023 she had multiple illnesses (COVID, strep, and flu). In August, developed posterior neck pressure, dizziness, imbalance, forgetfulness, and dysphagia. She went to [facility] and completed a lumbar puncture with opening pressure above 30. She was restarted on Diamox. Symptoms did improve after. Reports starting in August 2024 started getting posterior neck pressure, headaches, and arm/leg weakness. Pain would improve with laying down. Reports was taking 1500 mg Diamox per day and did get kidney stones. Reports she has lost 49 pounds. She has also tried numerous medications with Neurology for headaches. 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 Reports when symptoms flare up they are debilitating and last for about a month. For the past 3 months she denies vision concerns and is taking 500 mg Diamox in the morning and 250 mg at night. Denies improvement in symptoms with recent LP. Reports no improvement in symptoms until she took Depakote. She has 3/10 posterior neck pain today and gets intermittent stress headaches. PAST MEDICAL HISTORY: Past Medical History[1] CURRENT MEDICATIONS: No current outpatient medications on file. SURGICAL HISTORY: Past Surgical History[2] FAMILY HISTORY: Family History[3] SOCIAL HISTORY: Social History Socioeconomic History Marital status: Not on file Spouse name: Not on file Number of children: Not on file Years of education: Not on file Highest education level: Not on file Occupational History Not on file Tobacco Use Smoking status: Not on file Smokeless tobacco: Not on file Substance and Sexual Activity Alcohol use: Not on file Drug use: Not on file Sexual activity: Not on file Other Topics Concern Not on file Social History Narrative Not on file Social Drivers of Health Financial Resource Strain: Not on file Food Insecurity: Not on file Transportation Needs: Not on file Physical Activity: Not on file Stress: Not on file Social Connections: Not on file Intimate Partner Violence: Not on file Housing Stability: Not on file ALLERGIES: Patient has no allergy information on record. 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 General: Appearance: Karolina is oriented to person, place, time, and situation and provides good history. Tearful at times. Body habitus: Body mass index is 28.26 kg/m??. REVIEW OF TESTS No imaging available, can review read reports from recent MRI imaging in 2024. IMPRESSION: No evidence for venous sinus thrombosis. Equivocal narrowing of the distal transverse sinuses as could be seen with transverse sinus stenosis. Music Orchestrator: ANA Transcribe Date/Time: Jul 03 2024 2:07P Dictated by : GERARD FLORES MD IMPRESSION: Normal MRI of the brain. * * * * * * * * ADDENDUM #1 * * * * * * * * Partially empty sella is suggested. Assessment/Plan ASSESSMENT IIH Headaches Vision Changes PLAN OF CARE Plan Patient presents with history of IIH and 3 reported LPs. Patient currently reports symptoms are improved and is on Diamox. Educated on IIH. Will need to obtain MRI imaging. Patient reports she is mailing MRI imaging from two hospitals. Patient is aslo established with ophthalmology, plan to have patient repeat eye testing now that symptoms have improved. Imaging to be obtained and will need follow-up with Dr. Bender since MRV, MRI, an (more content not included)...NormalProvider LocationsTranscription Authentication Interface Message TextPt has seen numerous provider and they can not figure out why she is having KHAN's Has had several LP and opening pressure has never been real high KHAN's feel more like pressure at the back of her neck. Pain was at a 10, choking on her drinks, dizziness, Headaches(behind eyes): No Vision disturbances(blurred vision, double vision, blind spots or peripheral vision loss): Yes Tinnitus: Yes Neck/back pain: Yes Dizziness: Yes Nausea/Vomiting: Yes Belief episodes of blindness: NoNormalProvider LocationsCNPNon 99-20-9090MFQR NormalOhiohealth Grant Medical CenterCNPNon 58-29-1044CKUGWluzyvDrjvrdortCentervilleCNOVon 26-08-2817NYIZYdkwyqLkfwyvpxg Clinic [place]CNOVNormal [facility] Medical CenterCNOVon 97-91-9449QKLKBdtmfbXrhjecsod [facility] [place] CNPNon 90-94-8398DXMXBfcmrhAyxvbwmshCentervilleCONSULT TO [facility] SOCIAL WORKon 63-38-3516Foewhtfnp and support provided. Thank you.[facility] on 33-33-6954SCAEKjptfrJvvubfnofCentervilleBasi Metabolic Panelon 66-81-0149Ikhdq gap [Moles/Vol]11.7 mmol/LNormal6.0-15.0The [facility] Physician GroupComment on above:Performed By: #### CBC, BMP #### [facility] [address] [place] [address] USACalcium [Mass/Vol]9.3 mg/dLNormal8.6-10.3The [facility] Physician GroupComment on above:Performed By: #### CBC, BMP #### [facility] [address] [place] [address] USAChloride [Moles/Vol]106 mmol/NOnhank39-240Vfq [facility] Physician GroupComment on above:Performed By: #### CBC, BMP #### [place] [address] USACO2 [Moles/Vol]27.9 mmol/LBujara29.0-31.0The [facility] Physician GroupComment on above:Performed By: #### CBC, BMP #### [place] [address] USACreatinine [Mass/Vol]1.04 mg/dLNormal0.60-1.20The [facility] Physician GroupComment on above:Performed By: #### CBC, BMP #### [place] [address] USACreatinine Clr Calc Jrwdgnaf24.76NormalThe [facility] Physician GroupComment on above:Result Comment: PERFORMED BY: [place] [address] PATHOLOGIST CORE CLEANER EMMA BRANDON M.D.Performed By: #### CBC, BMP #### [place] [address] USAGFR/1.73 sq M.predicted MDRD (S/P/Bld) [Vol rate/Area] mL/min/{1.73_m2}NormalThe [facility] Physician [facility] SystemComment on above:Performed By: #### CBC, BMP #### [place] [address] USAGlucose [Mass/Vol]103 mg/hOXwwj37-033Kib [facility] Physician GroupComment on above:Result Comment: Random Glucose Reference Range is dependent on time and content of last meal. Glucose of more than 200 mg/dL in a nonstressed, ambulatory subject supports the diagnosis of Diabetes Mellitus. ADA recommended reference rangePerformed By: #### CBC, BMP #### [place] [address] USAPotassium [Moles/Vol]3.6 mmol/LNormal3.5-5.1The [facility] Physician GroupComment on above:Performed By: #### CBC, BMP #### [facility] [address] [place] [address] USASodium [Moles/Vol]142 mmol/WUskpkw210-951Pti [facility] Physician GroupComment on above:Performed By: #### CBC, BMP #### [facility] [address] [place] [address] USAUrea nitrogen [Mass/Vol]11 mg/dLNormal7-25The [facility] Physician GroupComment on above:Performed By: #### CBC, BMP #### [facility] [address] [place] [address] USABasophils Auto (Bld) [#/Vol]Ordered By: Shahid Ritter on 01-04-0498Qyoisqwob (Bld) [#/Vol]Automated basophil count0.0-0.2FTrinity Health System Twin City Medical CenterBasophils/100 WBC Auto (Bld)Ordered By: Shahid Ritter on 55-72-2153Esacntrxy/100 WBC (Bld)Automated basophil %.Southview Medical CenterCNCOon 77-08-5275QARWSrccpy TextNoalCMercy Health St. Elizabeth Boardman HospitalCalcium [Mass/volume] in Serum or PlasmaOrdered By: Shahid Ritter on 60-39-6559Rjjglid [Mass/Vol]Calcium [Mass/volume] in Serum or Plasma8.6-10.3FTrinity Health System Twin City Medical CenterCarbon dioxide, total [Moles/volume] in Serum or PlasmaOrdered By: Shahid Ritter on 53-71-9062AW0 [Moles/Vol]Carbon dioxide, total [Moles/volume] in Serum or Ceffmm97.0-31.0[facility] Medical CenterChloride [Moles/volume] in Serum or PlasmaOrdered By: Shahid Ritter on 79-85-6313Kzncktkv [Moles/Vol] Chloride [Moles/volume] in Serum or Iddtow09-080SswzupnbtSouthview Medical CenterComplete Blood Count Auto Diffon 58-77-8196Miclkgnnf (Bld) [#/Vol]0.1 10*3/uLNormal0.0-0.2The [facility] Physician GroupComment on above:Result Comment: PERFORMED BY: [facility] [address] [place] [address] PATHOLOGIST CORE CLEANER EMMA BRANDON M.D.Performed By: #### CBC, BMP #### [place] [address] USABasophils/100 WBC (Bld)0.5 %Normal.The [facility] Physician GroupComment on above:Performed By: #### CBC, BMP #### [place] [address] USAEosinophils (Bld) [#/Vol]0.1 10*3/uLNormal0.0-0.45The [facility] Physician GroupComment on above:Performed By: #### CBC, BMP #### [place] [address] USAEosinophils/100 WBC (Bld)1.0 %Normal.The [facility] Physician GroupComment on above:Performed By: #### CBC, BMP #### [place] [address] USAErythrocyte distribution width (RBC) [Ratio]12.5 %Normal 11.9-15.3The [facility] Physician GroupComment on above:Performed By: #### CBC, BMP #### [place] [address] USAHematocrit (Bld) [Volume fraction]39.7 %Hqqkhi46.0-46.4The [facility] Physician GroupComment on above:Performed By: #### CBC, BMP #### [place] [address] USAHemoglobin (Bld) [Mass/Vol]13.7 g/mZByugcv44.8-15.4The [facility] Physician GroupComment on above:Performed By: #### CBC, BMP #### [place] [address] USALymphocytes (Bld) [#/Vol]2.5 10*3/uLNormal1.00-4.8The [facility] Physician GroupComment on above:Performed By: #### CBC, BMP #### [place] [address] USALymphocytes/100 WBC (Bld)26.0 %Normal.The [facility] Physician GroupComment on above:Performed By: #### CBC, BMP #### [place] [address] USAH (RBC) [Entitic mass]31.4 ejIkaiwl98.7-34.3The [facility] Physician GroupComment on above:Performed By: #### CBC, BMP #### [place] [address] USAMCV (RBC) [Entitic vol]90.8 lHZtxzrd85-429Jqz [facility] Physician GroupComment on above:Performed By: #### CBC, BMP #### [place] [address] USAMean Corpuscular HGB Conc34.6 g/rOPlszap15.0-35.0The [facility] Physician GroupComment on above:Performed By: #### CBC, BMP #### [place] [address] USAMonocytes (Bld) [#/Vol]0.5 10*3/uLNormal0.0-0.8The [facility] Physician GroupComment on above:Performed By: #### CBC, BMP #### [place] [address] USAMonocytes/100 WBC (Bld)16.15 %Normal0.00-20.00The [facility] Physician GroupComment on above:Performed By: #### CBC, BMP #### [place] [address] USAMonocytes/100 WBC (Bld)4.8 %Normal.The [facility] Physician GroupComment on above:Performed By: #### CBC, BMP #### [place] [address] USANeutrophils (Bld) [#/Vol]6.5 10*3/uLNormal1.8-7.7The [facility] Physician GroupComment on above:Performed By: #### CBC, BMP #### [facility] [address] [place] [id number] USANeutrophils/100 WBC (Bld)67.7 %Normal.The [facility] Physician GroupComment on above:Performed By: #### CBC, BMP #### [facility] [address] [place] [id number] USANRBC%0.0 /100{WBC}Normal0-0.5The [facility] Physician Group Comment on above:Performed By: #### CBC, BMP #### [facility] [address] [place] [address] USAPlatelet mean volume (Bld) [Entitic vol]7.2 fLNormal 6.3-10.7The [facility] Physician GroupComment on above:Performed By: #### CBC, BMP #### [facility] [address] [place] [address] USAPlatelets (Bld) [#/Vol]294 10*3/xSGctwvg934-172Yqx [facility] Physician GroupComment on above:Performed By: #### CBC, BMP #### [facility] [address] [place] [address] USARBC (Bld) [#/Vol]4.37 10*6/uLNormal3.60-5.00The [facility] Physician GroupComment on above:Performed By: #### CBC, BMP #### [facility] [address] [place] [address] USAWBC (Bld) [#/Vol]9.6 10*3/uLNormal3.8-11.6The [facility] Physician GroupComment on above:Performed By: #### CBC, BMP #### [facility] [address] [place] [address] USACreatinine [Mass/volume] in Serum or PlasmaOrdered By: Shahid Ritter on 84-15-4937Qmtykhqdyd [Mass/Vol]Creatinine [Mass/volume] in Serum or Plasma0.60-1.20[facility] Medical CenterECG 12 lead ECGon 10-04-2024 ECG 12 lead ECGOHIOHEALTH Main Price [address] [place] [address] Electrocardiograph Report Signed Patient: Karolina Nicole MR#: [id number] : 1985 Acct:[id number] Age/Sex: 39 / F ADM Date: 10/04/24 Loc: ER Room: Type: [facility] ER Attending Dr: Ordering Provider: Shahid Ritter [...] MUS Signed By Shahid Ritter MD 10/04/24 1603[facility] Physician GroupEosinophils Auto (Bld) [#/Vol]Ordered By: Shahid Ritter on 83-34-9293Dlpewkdovdl (Bld) [#/Vol]Automated eosinophil count 0.0-0.45[facility] Medical CenterEosinophils/100 WBC Auto (Bld)Ordered By: Shahid Ritter on 76-77-4721Muihkgrdrmj/100 WBC (Bld)Automated eosinophil %. [facility] Medical CenterErythrocyte distribution width Auto (RBC) [Ratio]Ordered By: Shahid Ritter on 59-21-2011Rmwzkbnktiw distribution width (RBC) [Ratio]Erythrocyte distribution width [Ratio] by Automated count11.9-15.3 [facility] CenterGlucose [Mass/volume] in Serum or PlasmaOrdered By: Shahid Ritter on 58-93-0422Uqismmk [Mass/Vol]Glucose [Mass/volume] in Serum or TziugnHpjg20-193UiynzzkggSouthview Medical CenterComment on above:ADA recommended reference rangeRandom Glucose Reference Range is dependent on time and content of last meal. Glucose of more than 200 mg/dL in a nonstressed, ambulatory subject supports the diagnosisof Diabetes Mellitus.Hematocrit Auto (Bld) [Volume fraction]Ordered By: Shahid Ritter on 21-27-4198Whxwwbcfrl (Bld) [Volume fraction]Hematocrit [Volume Fraction] of Blood by Automated count 34.0-46.4FTrinity Health System Twin City Medical CenterHemoglobin [Mass/volume] in Blood Ordered By: Shahid Ritter on 43-43-6523Fbczqenrrl (Bld) [Mass/Vol]Hemoglobin [Mass/volume] in Blood11.8-15.4FTrinity Health System Twin City Medical CenterLeukocytes [#/volume] corrected for nucleated erythrocytes in Blood by Automated coun Ordered By: Shahid Ritter on 46-51-1539ESQ corrected for nucl RBC Auto (Bld) [#/Vol]Leukocytes [#/volume] corrected for nucleated erythrocytes in Blood by Automated coun3.8-11.6FTrinity Health System Twin City Medical CenterLymphocytes Auto (Bld) [#/Vol]Ordered By: Shahid Ritter on 56-57-5770Woxnaultwnk (Bld) [#/Vol]Lymphocytes [#/volume] in Blood by Automated count1.00-4.8[facility] Lymphocytes/100 WBC Auto (Bld)Ordered By: Shahid Ritter on 10-04-2024 Lymphocytes/100 WBC (Bld)Lymphocytes/100 leukocytes in Blood by Automated count. [facility] HospitalH Auto (RBC) [Entitic mass]Ordered By: Shahid Ritter on 96-36-7908FHS (RBC) [Entitic mass]MCH [Entitic mass] by Automated count 24.7-34.3FTrinity Health System Twin City Medical CenterMCHC Auto (RBC) [Mass/Vol]Ordered By: Shahid Ritter on 46-79-7840XQXN (RBC) [Mass/Vol]MCHC [Mass/volume] by Automated count32.0-35.0[facility] Medical CenterMCV Auto (RBC) [Entitic vol] Ordered By: Shahid Ritter on 79-28-3311QWJ (RBC) [Entitic vol]MCV [Entitic volume] by Automated uvwyr19-796UrpdspoodSouthview Medical CenterMonocyte distribution width [Entitic volume] in Blood by AutomatedOrdered By: Shahid Ritter on 10-04-2024 Monocyte distribution width Auto (Bld) [Entitic vol]Monocyte distribution width [Entitic volume] in Blood by Automated0.00-20.00[facility] Medical CenterMonocytes Auto (Bld) [#/Vol]Ordered By: Shahid Ritter on 39-88-4409Uxjuxablt (Bld) [#/Vol]Automated blood monocyte count0.0-0.8[facility] Medical CenterMonocytes/100 WBC Auto (Bld)Ordered By: Shahid Ritter on 10-04-2024 Monocytes/100 WBC (Bld)Automated monocyte %.[facility] Neutrophils Auto (Bld) [#/Vol]Ordered By: Shahid Ritter on 65-14-0057Gpeomuuqbqr (Bld) [#/Vol]Neutrophils [#/volume] in Blood by Automated count1.8-7.7FTrinity Health System Twin City Medical CenterNeutrophils/100 WBC Auto (Bld)Ordered By: Shahid Ritter on 62-64-1778Wtcgbkzyajy/100 WBC (Bld)Automated neutrophil %.Southview Medical CenterNo Panel InformationOrdered By: Shahid Ritter on 94-64-4670Cnyqzcxxa GFR (CKD-EPI)> 60.0 mL/MinSouthview Medical CenterPharmacy Creatinine Clearance (Chem67.76Southview Medical CenterNucleated erythrocytes [Presence] in Blood by Automated countOrdered By: Shahid Ritter on 10-04-2024 Nucleated RBC Auto Ql (Bld)Nucleated erythrocytes [Presence] in Blood by Automated count0-0.5FTrinity Health System Twin City Medical CenterPlatelet mean volume Auto (Bld) [Entitic vol]Ordered By: Shahid Ritter on 74-46-8718Qmwovilv mean volume (Bld) [Entitic vol]Platelet mean volume [Entitic volume] in Blood by Automated count6.3-10.7FTrinity Health System Twin City Medical CenterPlatelets Auto (Bld) [#/Vol] Ordered By: Shahid Ritter on 72-39-8223Zaftewhms (Bld) [#/Vol]Platelets [#/volume] in Blood by Automated tiifd249-779WgvyifvoxSouthview Medical CenterPotassium [Moles/volume] in Serum or PlasmaOrdered By: Shahid Ritter on 64-51-9912Nhznmaydy [Moles/Vol]Potassium [Moles/volume] in Serum or Plasma3.5-5.1FTrinity Health System Twin City Medical CenterRBC Auto (Bld) [#/Vol]Ordered By: Shahid Ritter on 96-62-2080LOF (Bld) [#/Vol]Erythrocytes [#/volume] in Blood by Automated count3.60-5.00 [facility]iffin Hospitalerum or plasma anion gap determinationOrdered By: Shahid Ritter on 96-72-3588Pxlmx gap [Moles/Vol]Serum or plasma anion gap determination6.0-15.0[facility] Tiffin Hospitalodium [Moles/volume] in Serum or PlasmaOrdered By: Shahid Ritter on 29-65-1523Iuvfjp [Moles/Vol]Sodium [Moles/volume] in Serum or Jbyapv999-855TfgiuvlixSouthview Medical CenterUrea nitrogen [Mass/volume] in Serum or PlasmaOrdered By: Shahid Ritter on 10-04-2024 Urea nitrogen [Mass/Vol]Urea nitrogen [Mass/volume] in Serum or Plasma7-25 [facility] CenterWBC Auto (Bld) [#/Vol]Ordered By: Shahid Ritter on 41-15-1722TRB (Bld) [#/Vol]Leukocytes [#/volume] in Blood by Automated count 3.8-11.6FTrinity Health System Twin City Medical CenterCNPNon 96-89-4740FYJEOvpfwpTpfcdxkybCentervilleAerobic Cultureon 99-30-2838Powouhm CultureNo Growth 2 Days No Anaerobes Isolated 3 Days Gram Stain Result No Bacteria Seen No White Blood Cells Seen PERFORMED BY: [facility] [address] [place] [address] PATHOLOGIST CORE CLEANER EMMA BRANDON M.D.NormalThe [facility] Physician GroupComment on above: Performed By: #### CBC, BMP #### [facility] [address] [place] [address] USAAerobic cultureOrdered By: Cindy Winslow on 09-30-2024 Bacteria identified Aer cx Nom (Unsp spec)Aerobic cultureSouthview Medical CenterAnaerobic cultureOrdered By: Cindy Winslow on 94-07-1941Sklkbmye identified Anaer cx Nom (Unsp spec)Anaerobic cultureSouthview Medical CenterCNPNon 58-54-3693NZWOCxhslkNdapiroux Clinic ClevelandCSF PCR Panelon 64-36-0037SSK PCR PanelCytomegalovirus Not detected Cryptococcus neoformans or gattii 9002 Not detected Escherichia coli K1 Not detected Enterovirus Not detected Haemophilus influenzae (reported as H flu) Not detected Human herpesvirus 6 Not detected Herpes simplex virus 1 Not detected Herpes simplex virus 2 DNA [Presence] in Cerebral spinal fluid by KIRSTIN with non- probe detection Not detected Listeria monocytogenes (reported as listeriosis) Not detected Neisseria meningitidis - reported as meningococcal disease Not detected Human parechovirus Not detected Streptococcus pneumoniae - reported at ISP Not detected Group B Strep (Streptococcus agalactiae) Not detected Varicella zoster virus Not detected PERFORMED BY: [place] [address] PATHOLOGIST CORE CLEANER EMMA BRANDON M.D.NormalSarasota Memorial Hospital - Venice Physician GroupComment on above: Performed By: #### CSF PCR PANEL #### [place] [address] USACT head/brain wo conon 59-52-3366QV head/brain wo con [facility] [address] [place] [address] CT Scan Report Signed Patient: Karolina Nicole MR#: [id number] : 1985 Acct:[id number] Age/Sex: 39 / F ADM Date: 09/28/24 Loc: Room: [address] [place] [address] Type: ADM INOo Attending Dr: Cindy Winslow [...] Hopkins M.D. 09/30/2024 8:30 AM Dictation Location: [place] [address] Transcribed By: ODALYS 09/30/24829 Dictated By: Dorian Hopkins II, MD 09/30/24819 Signed By: 09/30/24829[facility] Physician [facility] SystemCell Count Differential,CSFon 49-13-6830Szpnzmlave, CSFClearNormalClearSarasota Memorial Hospital - Venice Physician GroupComment on above:Performed By: #### CBC, BMP #### [address] [address] USAColor, CSFColorlessNormalColorlessSarasota Memorial Hospital - Venice Physician GroupComment on above:Performed By: #### CBC, BMP #### [address] [address] USACSF Supernatant ColorColorlessNormalColorlessSarasota Memorial Hospital - Venice Physician GroupComment on above:Performed By: #### CBC, BMP #### [address] [address] USACSF Volume, Total29.5 mLNormalThe [facility] Physician GroupComment on above:Performed By: #### CBC, BMP #### [address] [address] USAEosinophil, JUJ0TgvzqvBwh [facility] Physician GroupComment on above:Result Comment: The reference interval and other method performance specifications have not been established for this body fluid. The test result must be integrated into the clinical context for interpretation.Performed By: #### CBC, BMP #### [address] [address] USALymphocytes, IMZ98XnrelwAnn [facility] Physician Group Comment on above:Result Comment: The reference interval and other method performance specifications have not been established for this body fluid. The test result must be integrated into the clinical context for interpretation.Performed By: #### CBC, BMP #### [place] [address] USAMonocytes, BTJ54XandvcTgkCleveland Clinic Weston Hospital Physician GroupComment on above:Result Comment: The reference interval and other method performance specifications have not been established for this body fluid. The test result must be integrated into the clinical context for interpretation.Performed By: #### CBC, BMP #### [place] [address] USANeutrophils, XGE3PxcvqvPmyCleveland Clinic Weston Hospital Physician Group Comment on above:Result Comment: The reference interval and other method performance specifications have not been established for this body fluid. The test result must be integrated into the clinical context for interpretation.Performed By: #### CBC, BMP #### [place] [address] USARBC, CSF0 /uLNormCleveland Clinic Weston Hospital Physician GroupComment on above:Result Comment: The reference interval and other method performance specifications have not been established for this body fluid. The test result must be integrated into the clinical context for interpretation.Performed By: #### CBC, BMP #### [place] [address] USATNC, CSF1 /uLNormal0-5The [facility] Physician GroupComment on above:Performed By: #### CBC, BMP #### [place] [address] USATube Number Tested, CSFTube Number: 3NoLifeCare Hospitals of North Carolina Physician GroupComment on above:Result Comment: PERFORMED BY: [place] [address] PATHOLOGIST CORE CLEANER SCOTTIE LEE M.D.Performed By: #### CBC, BMP #### [place] [address] USACerebrospinal fluid color identificationOrdered By: Cindy Winslow on 06-41-1441Nooiu (CSF)Color CSFColorlessSouthview Medical CenterCerebrospinal fluid post-centrifugation appearance determinationOrdered By: Cindy Winslow on 11-74-9208Yhtppoezmy (Spun CSF)Cerebrospinal fluid post- centrifugation appearance determinationColorlessSouthview Medical CenterCerebrospinal fluid sample tube volume measurementOrdered By: Cindy Winslow on 99-64-8630Tlwpztls volume (CSF)Cerebrospinal fluid sample tube volume measurementSouthview Medical CenterDetermination of appearance of cerebrospinal fluidOrdered By: Cindy Winslow on 30-17-9326Ctudwrxupw (CSF) Cerebrospinal fluid appearance descriptionCleSt. Charles Hospital Eosinophil count CSFOrdered By: Cindy Winslow on 12-34-5068INY Eosinophils0 [facility] Medical CenterComment on above:The reference interval and other method performance specifications have not been established for this body fluid. The test result must be integrated into the clinical context for interpretation.Glucose [Mass/volume] in Cerebral spinal fluidOrdered By: Cindy Winslow on 56-32-6520Depmysm (CSF) [Mass/Vol]Glucose [Mass/volume] in Cerebral spinal pagom01-47XsfyhdofgSouthview Medical CenterGlucose, Spinal Fluidon 46-02-5681Qiwpucj, Spinal Fluid61 mg/vEXfqhto91-15Pcn [facility]ician Group Comment on above:Performed By: #### CBC, BMP #### [facility] [address] [place] [address] USAGram Stainon 85-79-6225Ijzgonltnbl observation Gram stain Nom (Unsp spec)Gram Stain Result No Bacteria Seen No White Blood Cells Seen PERFORMED BY: [place] [address] PATHOLOGIST CORE CLEANER SCOTTIE LEE M.D.NormalThe [facility] Physician GroupComment on above: Performed By: #### CBC, BMP #### [facility] [address] [place], [place] [address] USAGram stain microscopyOrdered By: Cindy Winslow on 31-39-2936Frhhylimwto observation Gram stain Nom (Unsp spec)Gram stain microscopySouthview Medical CenterIR guided lumbar puncture LPon 63-69-7642IW guided lumbar puncture [facility] [address] [place] [id number] Interventional Radiology Rpt Signed Patient: Karolina Nicole MR#: [id number] : 1985 Acct:[id number] Age/Sex: 39 / F ADM Date: 09/28/24 Loc: 3T Room: [address] [place] [address] Type: DIS INOo Attending Dr: Cindy Winslow [...] Hopkins M.D. 09/30/2024 3:17 PM Dictation Location: [place] [address] Transcribed By: [facility] 09/30/24 1517 Dictated By: Dorian Hopkins II, MD 09/30/24 1514 Signed By: 09/30/[address] [place], [place] [address]Interventional radiology report Ordered By: Dorian Hopkins on 82-51-1585Vpfqd reportOHIO[place] [address] Interventional Radiology Rpt Signed Patient: Karolina Nicole MR#: [id number] : 1985 Acct:[id number] Age/Sex: 39 / F ADM Date: 5 Loc: Room: [address] [place] [address] Type: DIS INOo Attending Dr: Cindy Winslow [...] approach. With the patient in the left lateraldecubitus position the opening pressure was measured at [...] Hopkins M.D. 09/30/2024 3:17 PM Dictation Location: [place] [address] Transcribed By: PWS 09/30/241516 Dictated By: Dorian Hopkins II, MD 09/30/241513 Signed By: 09/30/241516 [facility] Work Phone: Lon 09-30-2024 Specimen: [id number] Received: 09/30/24 Status: ESTELLA Mohan Num: [id number] Spec Type: Cytology Subm Dr: Dorian Hopkins II, MD Tissues: A CSF (SPINAL FLUID) Procedures: Cyto Prepstain, DIFF QWIKCARLOS EDUARDOSTN Age/ Patient Sex Location Account Attending Physician Karolina Nicole 39/F 3T [id number] Cindy Winslow MD SPEC NUM: [id number] RECD: 09/30/24 STATUS: ESTELLA MOHAN NUM: [id number] GLORY: 09/30/24 [facility] DR: Dorian Hopkins II, MD ENTERED: 09/30/[address] [facility] DR: Cindy Winslow MD SPEC TYPE: Cytology DEPT: CNG ENTERED BY: [id number] RECV BY: [id number] ORDERED: Cyto Prepstain, DIFF QWIK, PAPSTN ORDERED: [...] Description Microscopic examination is performed. CPT Codes 09270 Specimen: [id number] Received: 09/30/24 Status: ESTELLA Mohan Num: [id number] Spec Type: Cytology Subm Dr: Dorian Hopkins II, MD Tissues: A CSF (SPINAL FLUID) Procedures: Cyto Prepstain, DIFF QWIK, PAPSTN Patient: Karolina Nicole [id number] (Continued) Signed (signature on file) Edis Acuña MD 09/30/24 1529Normal The [facility] Physician GroupLymphocyte count CSFOrdered By: Cindy Winslow on 17-81-2230WNX Phqplakbler22Dvnwrdcrn[address] [place], [place] [address]Comment on above:The reference interval and other method performance specifications have not been established for this body fluid. The test result must be integrated into the clinical context for interpretation.Manual cerebrospinal fluid erythrocytes count (number/volume)Ordered By: Cindy Winslow on 25-03-4411KTT Manual cnt (CSF) [#/Vol]Manual cerebrospinal fluid erythrocytes count (number/volume)Southview Medical CenterComment on above:The reference interval and other method performance specifications have not been established for this body fluid. The test result must be integrated into the clinical context for interpretation. Meningitis+Encephalitis pathogens DNA and RNA panel - Cerebral spinal fluid by KIRSTIN wiOrdered By: Cindy Winslow on 45-14-1429Ewqbqqtqgb+Encephalitis pathogens DNA and RNA panel KIRSTIN+non-probe (CSF)Meningitis+Encephalitis pathogens DNA and RNA panel - Cerebral spinal fluid by KIRSTIN [facility] Monocyte count CSFOrdered By: Cindy Winslow on 18-64-1801ZFK Jhwzyvdun30 [facility] Medical CenterComment on above:The reference interval and other method performance specifications have not been established for this body fluid. The test result must be integrated into the clinical context for interpretation.Neutrophil count CSFOrdered By: Cindy Winslow on 66-53-0174AZX Qqstxqllhkh0OiluaklzgSouthview Medical CenterComment on above:The reference interval and other method performance specifications have not been established for this body fluid. The test result must be integrated into the clinical context for interpretation.No Panel InformationOrdered By: Cindy Winslow on 53-45-6862RMG Tube NumberTube number: 3FTrinity Health System Twin City Medical Center Nucleated cells [#/volume] in Cerebral spinal fluid by Manual countOrdered By: Cindy Winslow on 32-44-8735Bgufxavys cells Manual cnt (CSF) [#/Vol]Nucleated cells [#/volume] in Cerebral spinal fluid by Manual count0-5FTrinity Health System Twin City Medical CenterPathology study report documentOrdered By: Edis Acuña on 09-30-2024 Pathology studySouthview Medical Center Other Protein [Mass/volume] in Cerebral spinal fluidOrdered By: Cindy Winslow on 11-73-8504Zpqrmns (CSF) [Mass/Vol]Protein [Mass/volume] in Cerebral spinal aofkfHkaf36-85AymrizllpSouthview Medical CenterTotal Protein, Spinal Fluidon 79-37-3792Mmrxf Protein, Spinal Fluid46 mg/cRLtvb31-39Yzq [facility] Physician GroupComment on above:Result Comment: PERFORMED BY: [place] [address] PATHOLOGIST CORE CLEANER SCOTTIE LEE M.D.Performed By: #### CBC, BMP #### [place] [address] USAAmphetamine Screen Ql (U)Ordered By: Cindy Winslow on 89-68-0754Wquljnsaeztt Ql (U)Amphetamines screenNegativeSouthview Medical CenterAppearance of UrineOrdered By: Cindy Winslow on 09-29-2024 Appearance (U)Urine appearanceClearFTrinity Health System Twin City Medical CenterBacteria [Presence] in Urine by AutomatedOrdered By: Cindy Winslow on 77-95-6442Erenaqwy Auto Ql (U)Bacteria [Presence] in Urine by AutomatedNone Bethesda North HospitalBarbiturates [Presence] in Urine by Screen methodOrdered By: Cindy Winslow on 00-22-0000Gvobchsbbvoj Screen Ql (U)Barbiturates [Presence] in Urine by Screen methodNegSycamore Medical CenterBenzodiazepines Screen Ql (U)Ordered By: Cindy Winslow on 78-38-4733Vrpbcseqoerirrg Ql (U) Benzodiazepines [Presence] in Urine by Screen methodNegSycamore Medical CenterBenzoylecgonine [Presence] in Urine by Screen methodOrdered By: Cindy Winslow on 44-89-7370Caiaogioqcjsrpx Screen Ql (U)Benzoylecgonine [Presence] in Urine by Screen methodNegSycamore Medical Center Bilirubin Test strip Ql (U)Ordered By: Cindy Winslow on 80-01-8003Ssqvnpalv Ql (U)Bilirubin.total [Presence] in Urine by Test stripNegSycamore Medical CenterCannabinoids [Presence] in Urine by Screen methodOrdered By: Cindy Winslow on 88-61-1847Bwfzqsphuizs Screen Ql (U)Cannabinoids [Presence] in Urine by Screen methodNegSycamore Medical CenterComment on above:These are unconfirmed results and should not be used for legal purposes. Drug Cut-Off Concentration: AMPH 1000 ng/mL MALIK 200 ng/mL DMITRY 200 ng/mL COCM 300 ng/mL OP 300 ng/mL PCP 25 ng/mL THC 20 ng/mLColor Auto (U)Ordered By: Cindy Winslow on 13-31-5948Gwabf (U)Color of Urine by AutoYellowSouthview Medical Center Dipstick and Microscopicon 87-43-5746Yuanqcvbjj (U)ClearNormalClearSarasota Memorial Hospital [facility] Venice Physician GroupComment on above:Order Comment: Name Collection Type:: Voided Performed By: #### ADDONUAPLUS, UHCG, URDS #### [place] [address] USABacteria,UrineRareNormalNone SeenSarasota Memorial Hospital - Venice Physician GroupComment on above:Order Comment: Name Collection Type:: VoidedPerformed By: #### ADDONUAPLUS, UHCG, URDS #### [facility] [address] [place] [address] USABilirubin,UrineNegativeNormalNegativeSarasota Memorial Hospital - Venice Physician GroupComment on above:Order Comment: Name Collection Type:: Voided Performed By: #### ADDONUAPLUS, UHCG, URDS #### [facility] [address] [place] [address] USAColor (U)Light-YellowNormalYellowSarasota Memorial Hospital - Venice Physician GroupComment on above:Order Comment: Name Collection Type:: VoidedPerformed By: #### ADDONUAPLUS, UHCG, URDS #### [facility] [address] [place] [address] USAGlucose Ql (U)NormalNormalNormalThMinidoka Memorial Hospital Physician GroupComment on above:Order Comment: Name Collection Type:: VoidedPerformed By: #### ADDONUAPLUS, UHCG, URDS #### [facility] [address] [place] [address] USAHyaline Casts,UrineNoneNormal0-8The [facility] Physician GroupComment on above:Order Comment: Name Collection Type:: VoidedPerformed By: #### ADDONUAPLUS, UHCG, URDS #### [facility] [address] [place], [place] [address] USAKetones Ql (U)NegativeNormalNegativeSarasota Memorial Hospital - Venice Physician GroupComment on above:Order Comment: Name Collection Type:: Voided Performed By: #### ADDONUAPLUS, UHCG, URDS #### [facility] [address] [place] [address] USALeukocyte esterase Test strip Ql (U)NegativeNormalNegative [facility] Physician GroupComment on above:Order Comment: Name Collection Type:: VoidedPerformed By: #### ADDONUAPLUS, UHCG, URDS #### [facility] [address] [place] [address] USANitrite,UrineNegativeNormalNegativeSarasota Memorial Hospital - Venice Physician GroupComment on above:Order Comment: Name Collection Type:: VoidedPerformed By: #### ADDONUAPLUS, UHCG, URDS #### [facility] [address] [place] [address] USAOccult Blood,UrineTraceHighNegativeThe [facility] Physician GroupComment on above:Order Comment: Name Collection Type:: VoidedPerformed By: #### ADDONUAPLUS, UHCG, URDS #### [facility] [address] [place] [address] USApH (U)5.0 [pH]Normal5.0-9.0The [facility] Physician Group Comment on above:Order Comment: Name Collection Type:: VoidedPerformed By: #### ADDONUAPLUS, UHCG, URDS #### [place] [address] USAProtein,UrineNegativeNormalNegativeThe [facility] Physician GroupComment on above:Order Comment: Name Collection Type:: VoidedPerformed By: #### ADDONUAPLUS, UHCG, URDS #### [place] [address] USARBC,Fbdgx3-1Ygykwt2-5Bky [facility] Physician GroupComment on above:Order Comment: Name Collection Type:: VoidedPerformed By: #### ADDONUAPLUS, UHCG, URDS #### [place] [address] USASpecificy Skytop,Urine1.028Lemplr1.001-1.030The [facility] Physician GroupComment on above:Order Comment: Name Collection Type:: Voided Performed By: #### ADDONUAPLUS, UHCG, URDS #### [facility] [address] [place], [place] [address] USAUrobilinogen,UrineNormalNormalNormalThe [facility] Physician GroupComment on above:Order Comment: Name Collection Type:: Voided Performed By: #### ADDONUAPLUS, UHCG, URDS #### [facility] [address] [place] [address] USAWBC,Pivme7-9Ztgmlb7-2Yeb [facility] Physician GroupComment on above:Order Comment: Name Collection Type:: VoidedPerformed By: #### ADDONUAPLUS, UHCG, URDS #### [place] [address] USADrug Screen,Urineon 63-51-4972Qfmyqjmguwm Screen,Urine NegativeNormalNegativeThe [facility] Physician GroupComment on above:Performed By: #### ADDONUAPLUS, UHCG, URDS #### [place] [address] USABarbiturate Screen,UrineNegativeNormalNegativeThe [facility] Physician GroupComment on above:Performed By: #### ADDONUAPLUS, UHCG, URDS #### [place] [address] USABenzodiazepines Screen,UrineNegativeNormalNegativeThe [facility] Physician GroupComment on above:Performed By: #### ADDONUAPLUS, UHCG, URDS #### [place] [address] USACannabinoid Screen,UrineNegativeNormalNegativeThe [facility] Physician GroupComment on above:Result Comment: These are unconfirmed results and should not be used for legal purposes. Drug Cut-Off Concentration: AMPH 1000 ng/mL MALIK 200 ng/mL DMITRY 200 ng/mL COCM 300 ng/mL OP 300 ng/mL PCP 25 ng/mL THC 20 ng/mL PERFORMED BY: [place] [address] PATHOLOGIST CORE CLEANER SCOTTIE LEE M.D.Performed By: #### ADDONUAPLUS, UHCG, URDS #### [place] [address] USACocaine Screen,UrineNegativeNormalNegativeSarasota Memorial Hospital [facility] Physician GroupComment on above:Performed By: #### ADDONUAPLUS, UHCG, URDS #### [place] [address] USAOpiate Screen,UrineNegativeNormalNegativeThe [facility] Physician GroupComment on above:Performed By: #### LEIGHANNONUAPLUS, UHCG, URDS #### [facility] [address] [place] [address] USAPhencyclidine Screen,UrineNegativeNormalNegativeThe [facility] Physician GroupComment on above:Performed By: #### ADDONUAPLUS, UHCG, URDS #### [facility] [address] [place] [address] USAEpithelial cells.squamous [#/area] in Urine sediment by Automated countOrdered By: Cnidy Winslow on 22-31-6259Jidyunbxqz cells.squamous Auto (Urine sed) [#/Area]Epithelial cells.squamous [#/area] in Urine sediment by Automated countSouthview Medical CenterErythrocytes [#/area] in Urine sediment by Automated countOrdered By: Cindy Winslow on 93-40-9222HCM Auto (Urine sed) [#/Area]Erythrocytes [#/area] in Urine sediment by Automated count 0-4FTrinity Health System Twin City Medical CenterGlucose [Mass/volume] in Urine by Test strip Ordered By: Cindy Winslow on 15-19-4852Rwsopzp Test strip (U) [Mass/Vol]Glucose [Mass/volume] in Urine by Test stripKettering HealthHCG ( test) IA.rapid Ql (U)Ordered By: Cindy Winslow on 34-78-6167CCI ( test) Ql (U)Urine human chorionic gonadotropin (hCG) detection by immunoassaySouthview Medical CenterHCG,Urineon 39-98-3812Skkh HCG ( test) Ql (U)NegativeNormalThe [facility] Physician GroupComment on above:Order Comment: Name Collection Type:: VoidedResult Comment: PERFORMED BY: [facility] [address] [place] [address] PATHOLOGIST CORE CLEANER SCOTTIE LEE M.D.Performed By: #### ADDONUAPLUS, CG, URDS #### [facility] [address] [place] [id number] USAHemoglobin Test strip Ql (U)Ordered By: Cindy Winslow on 51-11-6867Hkrrzztneo Ql (U)Hemoglobin [Presence] in Urine by Test stripHigh NegativeSouthview Medical CenterHyaline casts [#/area] in Urine sediment by Automated countOrdered By: Cindy Winslow on 02-83-7389Wkrzwvh casts Auto (Urine sed) [#/Area]Hyaline casts [#/area] in Urine sediment by Automated count0-8Southview Medical CenterKetones Test strip Ql (U)Ordered By: Cindy Winslow on 91-15-1403Mtubbuw Ql (U)Ketones [Presence] in Urine by Test stripNegativeSouthview Medical CenterLeukocyte esterase [Presence] in Urine by Test stripOrdered By: Cindy Winslow on 31-31-7597Kmtagsrvs esterase Test strip Ql (U)Leukocyte esterase [Presence] in Urine by Test stripNegative [facility] Medical CenterLeukocytes [#/area] in Urine sediment by Automated countOrdered By: Cindy Winslow on 13-73-5455VID Auto (Urine sed) [#/Area]Leukocytes [#/area] in Urine sediment by Automated count0-4FTrinity Health System Twin City Medical CenterNitrite Test strip Ql (U)Ordered By: Cindy Winslow on 23-00-3329Rtbpleu Ql (U)Nitrite [Presence] in Urine by Test stripNegative [facility] CenterOpiates [Presence] in Urine by Screen method Ordered By: Cindy Winslow on 01-70-8814Osjqgzo Screen Ql (U)Opiates [Presence] in Urine by Screen methodNegSycamore Medical CenterPhencyclidine Screen Ql (U)Ordered By: Cindy Winslow on 98-64-4492Fyogsabmyzzlv Ql (U) Phencyclidine [Presence] in Urine by Screen methodNegSycamore Medical CenterProtein Test strip (U) [Mass/Vol]Ordered By: Cindy Winslow on 71-46-9521Jbfzrjy (U) [Mass/Vol]Protein [Mass/volume] in Urine by Test strip NegativeMercy Health Tiffin Hospitalpecific gravity Test strip (U) [Rel density]Ordered By: Cindy Winslow on 13-83-2525Bdmmgoet gravity (U) [Rel density]Specific gravity of Urine by Test strip1.001-1.030[facility] Medical CenterUrobilinogen Test strip (U) [Mass/Vol]Ordered By: Cindy Winslow on 30-14-1086Xkjnrqoibryv (U) [Mass/Vol]Urobilinogen [Mass/volume] in Urine by Test stripNormalSouthview Medical CenterpH Test strip (U)Ordered By: Cindy Winslow on 99-60-1178wD (U)pH of Urine by Test strip5.0-9.0[facility] CenterAnisocytosis LM Ql (Bld)Ordered By: Carissa Mejia on 19-44-0870Lpktovmkuldq Ql (Bld)Anisocytosis [Presence] in Blood by Light microscopySouthview Medical CenterBasic Metabolic Panelon 09-28-2024 Anion gap [Moles/Vol]13.1 mmol/LNormal6.0-15.0[facility] Comment on above:Performed By: #### DIFF CBC, LACTIC, ESR, PT, PTT, BMP #### [facility] [address] [place] [address] USACalcium [Mass/Vol]9.1 mg/dLNormal8.6-10.3The [facility] Physician GroupComment on above:Performed By: #### DIFF CBC, LACTIC, ESR, PT, PTT, BMP #### [facility] [address] [place] [address] USAChloride [Moles/Vol]110 mmol/QEeqy59-238Xac [facility]ician GroupComment on above:Performed By: #### DIFF CBC, LACTIC, ESR, PT, PTT, BMP #### [facility] [address] [place] [address] USACO2 [Moles/Vol]21.9 mmol/VDuvnme05.0-31.0The [facility] GroupComment on above:Performed By: #### DIFF CBC, LACTIC, ESR, PT, PTT, BMP #### [facility] [address] [place] [address] USACreatinine [Mass/Vol]0.92 mg/dLNormal0.60-1.20The [facility]ician GroupComment on above:Performed By: #### DIFF CBC, LACTIC, ESR, PT, PTT, BMP #### [facility] [address] [place] [address] USACreatinine Clr Calc Sadauawx53.54NormalThe [facility]ician GroupComment on above:Result Comment: PERFORMED BY: [place] [address] PATHOLOGIST CORE CLEANER SCOTTIE LEE M.D.Performed By: #### DIFF CBC, LACTIC, ESR, PT, PTT, BMP #### [place] [address] USAGFR/1.73 sq M.predicted MDRD (S/P/Bld) [Vol rate/Area] mL/min/{1.73_m2}NormalThe [facility]ician GroupComment on above:Performed By: #### DIFF CBC, LACTIC, ESR, PT, PTT, BMP #### [place] [address] USAGlucose [Mass/Vol]100 mg/pXPvmzmw82-870Rqi [facility] GroupComment on above:Result Comment: Random Glucose Reference Range is dependent on time and content of last meal. Glucose of more than 200 mg/dL in a nonstressed, ambulatory subject supports the diagnosis of Diabetes Mellitus. ADA recommended reference rangePerformed By: #### DIFF CBC, LACTIC, ESR, PT, PTT, BMP #### [place] [address] USAPotassium [Moles/Vol]4.0 mmol/LNormal3.5-5.1The [facility]ician GroupComment on above:Performed By: #### DIFF CBC, LACTIC, ESR, PT, PTT, BMP #### [place] [address] USASodium [Moles/Vol]141 mmol/GKamlbb443-136Nho [facility] GroupComment on above:Performed By: #### DIFF CBC, LACTIC, ESR, PT, PTT, BMP #### [place] [address] USAUrea nitrogen [Mass/Vol]17 mg/dLNormal7-25The [facility]ician GroupComment on above:Performed By: #### DIFF CBC, LACTIC, ESR, PT, PTT, BMP #### [facility] [address] [place] [address] USABasophils Auto (Bld) [#/Vol]Ordered By: Carissa Mejia on 82-52-3196Jnfitzfma (Bld) [#/Vol]Automated basophil countSouthview Medical CenterBasophils/100 WBC Auto (Bld)Ordered By: Carissa Mejia on 66-33-1039Rmmlezbgi/100 WBC (Bld)Automated basophil %[facility] Medical CenterCalcium [Mass/volume] in Serum or PlasmaOrdered By: Carissa Mejia on 98-80-4715Dgfeawk [Mass/Vol]Calcium [Mass/volume] in Serum or Plasma8.6-10.3 [facility] CenterCarbon dioxide, total [Moles/volume] in Serum or PlasmaOrdered By: Carissa Mejia on 50-01-2304DR1 [Moles/Vol]Carbon dioxide, total [Moles/volume] in Serum or Uqpiso05.0-31.0[facility] CenterChloride [Moles/volume] in Serum or PlasmaOrdered By: Carissa Mejia on 06-45-8960Qwzrrmtu [Moles/Vol]Chloride [Moles/volume] in Serum or PlasmaHigh 98-107[facility] CenterCreatinine [Mass/volume] in Serum or PlasmaOrdered By: Carissa Mejia on 01-15-8249Suoieaiwxt [Mass/Vol]Creatinine [Mass/volume] in Serum or Plasma0.60-1.20[facility] CenterDiff and CBCon 86-17-1451Oenphyxopdlb Ql (Bld)SlightNormalThe [facility]ician GroupComment on above:Performed By: #### CBC, BMP #### [facility] [address] [place] [address] USAErythrocyte distribution width (RBC) [Ratio]12.6 %Normal 11.9-15.3The [facility]ician GroupComment on above:Performed By: #### CBC, BMP #### [facility] [address] [place] [address] USAGiant Platelet Tally1 /100{WBC}NormalThe [facility]ician GroupComment on above:Performed By: #### CBC, BMP #### [place] [address] USAHematocrit (Bld) [Volume fraction]41.7 %Upoqdh07.0-46.4The [facility]ician GroupComment on above:Performed By: #### CBC, BMP #### [facility] [address] [place] [address] USAHemoglobin (Bld) [Mass/Vol]14.4 g/xWXjpjus09.8-15.4The [facility]ician GroupComment on above:Performed By: #### CBC, BMP #### [place] [address] USALarge PlateletsSMaria [facility] Physician [facility] Comment on above:Performed By: #### CBC, BMP #### [place] [address] USALymphocytes/100 WBC (Bld)14 %Pod31-95Ygk [facility]ician GroupComment on above:Performed By: #### CBC, BMP #### [facility] [address] [place] [address] USAMCH (RBC) [Entitic mass]31.1 lvYykpcm33.7-34.3The [facility]ician GroupComment on above:Performed By: #### CBC, BMP #### [facility] [address] [place] [address] USAMCV (RBC) [Entitic vol]90.2 aLLyqpyq33-312Twe [facility]ician GroupComment on above:Performed By: #### CBC, BMP #### [place] [address] USAMean Corpuscular HGB Conc34.5 g/oLBazawk13.0-35.0The [facility] Physician GroupComment on above:Performed By: #### CBC, BMP #### [place] [address] USAMicrocytosisSMaria [facility] Comment on above:Performed By: #### CBC, BMP #### [facility] [address] [place] [address] USAMonocytes/100 WBC (Bld)17.24 %Normal0.00-20.00The [facility]ician GroupComment on above:Performed By: #### CBC, BMP #### [facility] [address] [place] [address] USAMonocytes/100 WBC (Bld)4 %Normal2-11The [facility] Physician GroupComment on above:Performed By: #### CBC, BMP #### [facility] [address] [place] [address] USAMyelocytes3 %High0-0The [facility]ician GroupComment on above:Performed By: #### CBC, BMP #### [place] [address] USAPlatelet EstimateNormalNormalNoLifeCare Hospitals of [facility] Carolina Physician GroupComment on above:Performed By: #### CBC, BMP #### [facility] [address] [place] [address] USAPlatelet mean volume (Bld) [Entitic vol]7.3 fLNormal 6.3-10.7The [facility]ician GroupComment on above:Performed By: #### CBC, BMP #### [place] [address] USAPlatelets (Bld) [#/Vol]375 10*3/hZBhegvb078-309Bri [facility] Physician GroupComment on above:Performed By: #### CBC, BMP #### [place] [address] USAPoikilocytosisSlightNoLifeCare [facility] Comment on above:Performed By: #### CBC, BMP #### [facility] [address] [place] [address] USARBC (Bld) [#/Vol]4.63 10*6/uLNormal3.60-5.00The [facility] Physician GroupComment on above:Performed By: #### CBC, BMP #### [place] [address] USASegmented neutrophils/100 WBC (Bld)80 %Rcvg44-29YfnSarasota Memorial Hospital - Venice Physician GroupComment on above:Performed By: #### CBC, BMP #### [facility] [address] [place] [address] USAStomatocytesSlightNormalThe [facility] Comment on above:Performed By: #### CBC, BMP #### [facility] [address] [place] [address] USAWBC (Bld) [#/Vol]11.3 10*3/uLNormal3.8-11.6The [facility] Physician GroupComment on above:Performed By: #### CBC, BMP #### [facility] [address] [place] [address] USAECG 12 lead ECGon 30-56-8364VXQ 12 lead ECGOHIOHEALTH Main Price [address] [place] [address] Electrocardiograph Report Signed Patient: Karolina Nicole MR#: [id number] : 1985 Acct:[id number] Age/Sex: 39 / F ADM Date: 09/28/24 Loc: Room: [address] [place] [address] Type: ADM INOo Attending Dr: Sis Verma [...] Anterior leads QT has lengthened Confirmed by AKT CRISTINA DO ([id number]) on 09/29/2024 5:50:03 AM Referred By: Electronically Signed By: KAT CRISTINA DO Transcribed By: ODESSA Signed By Kat Cristina DO [address] [place] [address] Physician GroupECG 12 lead ECGOHIOHEALTH Main Price [address] [place] [address] Electrocardiograph Report Signed Patient: Karolina Nicole MR#: [id number] : 1985 Acct:[id number] Age/Sex: 39 / F ADM Date: 09/28/24 Loc: Room: [address] [place] [address] Type: ADM INOo Attending Dr: Sis Verma [...] significant change was found Confirmed by KAT CRISTINA DO ([id number]) on 09/29/2024 5:50:46 AM Referred By: Electronically Signed By: KAT CRISTINA DO Transcribed By: MUS Signed By Kat Cristina DO [address] [place] [address] Physician GroupEosinophils Auto (Bld) [#/Vol]Ordered By: Carissa Mejia on 70-11-2104Bjbstysvdho (Bld) [#/Vol]Automated eosinophil countSouthview Medical CenterEosinophils/100 WBC Auto (Bld)Ordered By: Carissa Mejia on 26-56-0044Idjsmrbjkii/100 WBC (Bld)Automated eosinophil % [facility] Medical CenterErythrocyte Sedimentation Rateon 38-10-1696YID (Bld) [Velocity]6 mm/hNormal0-19The [facility]ician GroupComment on above: Result Comment: PERFORMED BY: [address] [address] PATHOLOGIST CORE CLEANER SCOTTIE LEE M.D.Performed By: #### CBC, BMP #### [facility] [address] StreetErythrocyte distribution width Auto (RBC) [Ratio]Ordered By: Carissa Mejia on 14-80-8747Frnstylmaep distribution width (RBC) [Ratio] Erythrocyte distribution width [Ratio] by Automated count11.9-15.3FTrinity Health System Twin City Medical CenterErythrocyte morphology finding [Identifier] in Blood Ordered By: Carissa Mejia on 45-70-1158HTS morphology finding Nom (Bld)RBC morphologySouthview Medical CenterErythrocyte sedimentation rate by Photometric methodOrdered By: Carissa Mejia on 84-27-8281SLC Photometric method (Bld) [Velocity]Erythrocyte sedimentation rate by Photometric method0- [facility] Medical CenterGiant platelets/100 leukocytes [Ratio] in Blood by Manual countOrdered By: Carissa Mejia on 15-21-2768Uflyv platelets/100 WBC Manual cnt (Bld) [Ratio]Giant platelets/100 leukocytes [Ratio] in Blood by Manual countSouthview Medical CenterGlucose [Mass/volume] in Serum or PlasmaOrdered By: Carissa Mejia on 17-31-7014Hsxseng [Mass/Vol]Glucose [Mass/volume] in Serum or Udjjwo12-970ZcgbsrhmwSouthview Medical CenterComment on above:ADA recommended reference rangeRandom Glucose Reference Range is dependent on time and content of last meal. Glucose of more than 200 mg/dL in a nonstressed, ambulatory subject supports the diagnosisof Diabetes Mellitus. Hematocrit Auto (Bld) [Volume fraction]Ordered By: Carissa Mejia on 09-28-2024 Hematocrit (Bld) [Volume fraction]Hematocrit [Volume Fraction] of Blood by Automated count34.0-46.4FTrinity Health System Twin City Medical CenterHemoglobin [Mass/volume] in BloodOrdered By: Carissa Mejia on 37-53-3004Lxlgxsrnai (Bld) [Mass/Vol]Hemoglobin [Mass/volume] in Blood11.8-15.4FTrinity Health System Twin City Medical CenterINR in Platelet poor plasma by Coagulation assayOrdered By: Carissa Mejia on 97-83-1621LHL Coag (PPP) [Relative time]INR in Platelet poor plasma by Coagulation assaySouthview Medical CenterComment on above:INR Therapeutic Range A) Pre- and Peroperative OAT started two weeks before surgery. NOT HIP SURGERY: 1.5 - 2.5 HIP SURGERY: 2 - 3B) Primary and secondary prevention of venous THROMBOSIS: 2 - 3C) Active venous thrombosis, pulmonary embolismand prevention of recurrent venous thrombosis: 2 - 3D) Prevention of arterial thromboembolismincluding patients with mechanical heart valves: 3 - 4.5Lactate [Moles/volume] in Serum or PlasmaOrdered By: Carissa Mejia on 09-28-2024 Lactate [Moles/Vol]Lactate [Moles/volume] in Serum or Plasma0.5-1.9[facility] Medical CenterComment on above:Lactic Acid reference range has been updated to 0.5 1.9 mmol/L and the critical range of 2.0 or greater.Lactic Acidon 35-05-4987Kjqrnmb [Moles/Vol]0.8 mmol/LNormal0.5-1.9The [facility]ician GroupComment on above:Result Comment: Lactic Acid reference range has been updated to 0.5 ? 1.9 mmol/L and the critical range of 2.0 or greater. PERFORMED BY: [place] [address] PATHOLOGIST CORE CLEANER SCOTTIE LEE M.D.Performed By: #### DIFF CBC, LACTIC, ESR, PT, PTT, BMP #### [place] [address] USALeukocytes [#/volume] corrected for nucleated erythrocytes in Blood by Automated counOrdered By: Carissa Mejia on 50-08-0748ENB corrected for nucl RBC Auto (Bld) [#/Vol]Leukocytes [#/volume] corrected for nucleated erythrocytes in Blood by Automated coun3.8-11.6FTrinity Health System Twin City Medical CenterLymphocytes Auto (Bld) [#/Vol]Ordered By: Carissa Mejia on 56-84-8979Hgcwmhlrvco (Bld) [#/Vol]Lymphocytes [#/volume] in Blood by Automated countSouthview Medical CenterLymphocytes/100 WBC Auto (Bld)Ordered By: Carissa Mejia on 01-10-9427Booztsjgtqx/100 WBC (Bld)Lymphocytes/100 leukocytes in Blood by Automated countSouthview Medical CenterLymphocytes/100 WBC Manual cnt (Bld)Ordered By: Carissa Mejia on 95-54-6568Ovieiqvstug/100 WBC (Bld)Lymphocytes/100 leukocytes in Blood by Manual kjospTlk87-62WizwwpzmeMcKitrick HospitalH Auto (RBC) [Entitic mass]Ordered By: Carissa Mejia on 11-66-7774HRP (RBC) [Entitic mass]MCH [Entitic mass] by Automated count 24.7-34.3FMount St. Mary HospitalHC Auto (RBC) [Mass/Vol]Ordered By: Carissa Mejia on 33-74-7198YACZ (RBC) [Mass/Vol]MCHC [Mass/volume] by Automated count32.0-35.0[facility] Medical CenterMCV Auto (RBC) [Entitic vol]Ordered By: Carissa Mejia on 81-56-9522BZJ (RBC) [Entitic vol]MCV [Entitic volume] by Automated ftyul82-343UtlyxdofpSouthview Medical Center Microcytes LM Ql (Bld)Ordered By: Carissa Mejia on 00-22-1954Hbwyunnhmf Ql (Bld)Microcytes [Presence] in Blood by Light microscopySouthview Medical CenterMonocyte distribution width [Entitic volume] in Blood by Automated Ordered By: Carissa Mejia on 93-30-6425Bvvzpgtj distribution width Auto (Bld) [Entitic vol]Monocyte distribution width [Entitic volume] in Blood by Automated 0.00-20.00[facility] Medical CenterMonocytes Auto (Bld) [#/Vol]Ordered By: Carissa Mejia on 91-52-2703Sbnknimvl (Bld) [#/Vol]Automated blood monocyte countSouthview Medical CenterMonocytes/100 WBC Auto (Bld)Ordered By: Carissa Mejia on 69-10-5878Ejytfdxwl/100 WBC (Bld)Automated monocyte % [facility] CenterMonocytes/100 WBC Manual cnt (Bld)Ordered By: Carissa Mejia on 19-01-8232Hlvixqvnu/100 WBC (Bld)Monocytes/100 leukocytes in Blood by Manual count2-11[facility] Medical CenterMyelocytes/100 WBC Manual cnt (Bld)Ordered By: Carissa Reinosocaturner on 38-88-5758Rvjtalikuo/100 WBC (Bld)Myelocytes/100 leukocytes in Blood by Manual countHigh0-0[facility] Medical CenterNeutrophils Auto (Bld) [#/Vol]Ordered By: [facility] on 26-95-9252Wxvfsgzdfju (Bld) [#/Vol]Neutrophils [#/volume] in Blood by Automated countSouthview Medical CenterNeutrophils/100 WBC Auto (Bld)Ordered By: [facility] on 32-63-7863Jndjtdtwjfe/100 WBC (Bld)Automated neutrophil % [facility] CenterNo Panel InformationOrdered By: Carissa Reinosocaturner on 98-93-1544Oslyykrxf GFR (CKD-EPI)> 60.0 mL/MinSouthview Medical CenterPharmacy Creatinine Clearance (Chem76.54[facility] Nucleated erythrocytes [Presence] in Blood by Automated countOrdered By: Carissa Reinosocaturner on 89-36-1750Yrpnwnbgx RBC Auto Ql (Bld)Nucleated erythrocytes [Presence] in Blood by Automated countSouthview Medical CenterPartial Thromboplastin Timeon 57-87-2113sJYT Coag (Bld) [Time]25.7 lEcmgpv90.1-36.5The [facility] Physician GroupComment on above:Result Comment: A hematocrit value greater than 55% may lead to inaccurate results in coagulation testing. Patients having hematocrit values >55% require a special collection tube for coagulation studies. Please contact the laboratory at [phone] for redraw instructions. PERFORMED BY: [address] [address] PATHOLOGIST CORE CLEANER SCOTTIE LEE M.D.Performed By: #### CBC, BMP #### [place] [address] USAPlatelet adequacy [Presence] in Blood by Light microscopy Ordered By: Carissa Mejia on 12-01-3642Hrshqxady LM Ql (Bld)Platelet adequacy [Presence] in Blood by Light microscopyNormalSouthview Medical Center Platelet mean volume Auto (Bld) [Entitic vol]Ordered By: Carissa Mejia on 50-68-3197Zbjcfnwj mean volume (Bld) [Entitic vol]Platelet mean volume [Entitic volume] in Blood by Automated count6.3-10.7FTrinity Health System Twin City Medical Center Platelet morphology finding [Identifier] in BloodOrdered By: Carissa Mejia on 78-54-9433Ahxaqkwu morphology finding Nom (Bld)Platelet morphology finding [Identifier] in BloodSouthview Medical CenterPlatelets Auto (Bld) [#/Vol]Ordered By: Carissa Mejia on 67-01-9739Beyysvqmr (Bld) [#/Vol]Platelets [#/volume] in Blood by Automated xdtki202-194KcddfbviiSouthview Medical Center Platelets Large [Presence] in Blood by Light microscopyOrdered By: Carissa Mejia on 92-40-1916Binrgwkux Large LM Ql (Bld)Platelets Large [Presence] in Blood by Light microscopySouthview Medical CenterPoikilocytosis [Presence] in Blood by Light microscopyOrdered By: Carissa Mejia on 09-28-2024 Poikilocytosis LM Ql (Bld)Poikilocytosis [Presence] in Blood by Light microscopy [facility] Medical CenterPotassium [Moles/volume] in Serum or Plasma Ordered By: Carissa Mejia on 60-20-2509Xfmrxoyxy [Moles/Vol]Potassium [Moles/volume] in Serum or Plasma3.5-5.1FTrinity Health System Twin City Medical Center Prothrombin Time INRon 83-37-7352OWC Coag (PPP) [Relative time]0.9 {INR}Normal The [facility] Physician GroupComment on above:Result Comment: INR Therapeutic Range A) Pre- and [...] patients with mechanical heart valves: 3 - 4.5Performed By: #### CBC, BMP #### [facility] [address] [place] [address] USAPT Coag (PPP) [Time]10.7 sNormal9.0-12.9The [facility] Physician GroupComment on above:Result Comment: A hematocrit value greater than 55% may lead to inaccurate results in coagulation testing. Patients having hematocrit values >55% require a special collection tube for coagulation studies. Please contact the laboratory at [phone] for redraw instructions.Performed By: #### CBC, BMP #### [facility] [address] [place] [address] USAProthrombin time (PT)Ordered By: Carissa Mejia on 45-60-7957QZ Coag (PPP) [Time]Prothrombin time (PT)9.0-12.9[facility] Medical CenterComment on above:A hematocrit value greater than 55% may lead to inaccurate results in coagulation testing. Patientshaving hematocrit values >55% require a special collection tube for coagulation studies. Please contact the laboratory at [phone] for redraw instructions.RBC Auto (Bld) [#/Vol]Ordered By: Carissa Mejia on 84-93-6258CXV (Bld) [#/Vol]Erythrocytes [#/volume] in Blood by Automated count3.60-5.00[facility]iffin Hospitalegmented neutrophils/100 WBC Manual cnt (Bld)Ordered By: Carissa Mejia on 09-28-2024 Segmented neutrophils/100 WBC (Bld)Manual blood segmented neutrophils/100 ywttssamytGzgh40-68WpyfoebeqMercy Health Tiffin Hospitalerum or plasma anion gap determinationOrdered By: Carissa Mejia on 47-61-2723Lancz gap [Moles/Vol]Serum or plasma anion gap determination6.0-15.0[facility] Sodium [Moles/volume] in Serum or PlasmaOrdered By: Carissa Mejia on 49-05-1589Nzttkf [Moles/Vol]Sodium [Moles/volume] in Serum or Lkjqon988-939 [facility]iffin Hospitaltomatocytes [Presence] in Blood by Light microscopyOrdered By: Carissa Mejia on 47-64-2141Upvofdpkolgp Ql (Bld)Red blood cell stomatocyte detectionSouthview Medical CenterTroponin I High Sensitivityon 11-94-3732Sxndaswc I High Syrniyfmzho2Donodd3-86Jvp [facility] Physician GroupComment on above:Result Comment: The Troponin units of report have been changed to meet the Chest Pain Accreditation requirement, element EC5.M1l2. Troponin units are changed from pg/ml to ng/L. Also, the decimal is removed and results are in whole numbers. PERFORMED BY: [place] [address] PATHOLOGIST CORE CLEANER SCOTTIE LEE M.D.Performed By: #### CBC, BMP #### [place] [address] USATroponin I.cardiac [Mass/volume] in Serum or Plasma by Detection limit <= 0.01 ng/Ordered By: Carissa Mejia on 04-63-0760Xpxdqerj I.cardiac DL <= 0.01 ng/mL [Mass/Vol]Troponin I.cardiac [Mass/volume] in Serum or Plasma by Detection limit <= 0.01 ng/0-15[facility] Comment on above:The Troponin units of report have been changed to meet the Chest Pain Accreditation requirement, element EC5.M1l2. Troponin units are changed from pg/ml to ng/L. Also, the decimal is removed and results are in whole numbers.Urea nitrogen [Mass/volume] in Serum or PlasmaOrdered By: Carissa Mejia on 31-81-2718Dxnp nitrogen [Mass/Vol]Urea nitrogen [Mass/volume] in Serum or Plasma12-02Southview Medical CenterWBC Auto (Bld) [#/Vol] Ordered By: Carissa Mejia on 45-81-8021KVJ (Bld) [#/Vol]Leukocytes [#/volume] in Blood by Automated count3.8-11.6FTrinity Health System Twin City Medical CenterX-ray report Ordered By: Ming Au on 27-51-9464Ikamf reportOH[place] [address] XRay Report Signed Patient: Karolina Nicole MR#: [id number] : 1985 Acct:[id number] Age/Sex: 39 / F ADM Date: 5 Loc: 3T Room: [address] [place] [address] Type: ADM INOo Attending Dr: Sis Verma DO Copies to: AMISHA Lee DO~ Ordering Provider: Carissa Mejia APRN Date of [...] Au M.D. 09/28/2024 9:44 PM Dictation Location: [place] [address] Transcribed By: [facility] 09/28/242143 Dictated By: Ming Au DO 09/28/242142 Signed By: 09/28/242143 [facility] CenterXR chest 1V portableon 94-93-3541QR chest 1V portableOHIOHEALTH Main [address] [address] XRay Report Signed Patient: Karolina Nicole MR#: [id number] : 1985 Acct:[id number] Age/Sex: 39 / F ADM Date: 09/28/24 Loc: Room: [address] [place] [address] Type: ADM INOo Attending Dr: Sis Verma [...] Au M.D. 09/28/2024 9:44 PM Dictation Location: [place] [address] Transcribed By: [facility] 09/28/242143 Dictated By: Ming Au DO 09/28/242142 Signed By: 09/28/242143[facility] Physician GroupaPTT in Platelet poor plasma by Coagulation assayOrdered By: Carissa Mejia on 49-05-6969vJEA Coag (PPP) [Time] Activated partial thromboplastin time (aPTT) in platelet poor plasma by coagulation a25.1-36.5FTrinity Health System Twin City Medical CenterComment on above:A hematocrit value greater than 55% may lead to inaccurate results in coagulation testing. Patientshaving hematocrit values >55% require a special collection tube for coagulation studies. Please contact the laboratory at [phone] for redraw instructions.Basic metabolic 2000 panelon 45-98-2155Nkycz gap [Moles/Vol] 15 mmol/LNormal8-15[facility] on above:Order Comment: Specimen Type: BLOOD SPECIMENOrdering Facility: [facility] Address:[address] [place], [place] [address]Performed By: #### 89664-2 ####[facility] LABCLIA [id number] [place] [address] [place] AMERICACalcium [Mass/Vol]9.3 mg/dLNormal 8.5-10.2CDayton Children's Hospital on above:Order Comment: Specimen Type: BLOOD SPECIMENOrdering Facility: [facility] Address:[address] [place], [place] [address]Performed By: #### 62624-4 ####[facility] LABCLIA [id number] [place] [address] [place] AMERICAChloride [Moles/Vol]109 mmol/YPale72-937YtyiypvtrTrumbull Regional Medical Center on above:Order Comment: Specimen Type: BLOOD SPECIMENOrdering Facility: [facility] Address:[address] [place], [place] [address]Performed By: #### 28621-1 ####[facility] LABIA [id number] [place] [address] [place] CO2 [Moles/Vol]14 mmol/OFoo09-73JywytudigTrumbull Regional Medical Center on above:Order Comment: Specimen Type: BLOOD SPECIMENOrdering Facility: [facility] Address:[address] [place], [place] [address]Performed By: #### 60812- 2 ####[facility] [id number] [place] [address] [place] AMERICACreatinine [Mass/Vol]0.75 mg/dL Normal0.58-0.96[facility] on above:Order Comment: Specimen Type: BLOOD SPECIMENOrdering Facility: [facility] Address:[address] [place], [place] [address]Performed By: #### 88557-3 ####[facility] CENTERIA [id number] [place] [address] [place] AMERICACreatinine and Glomerular filtration rate.predicted panel (S/P/Bld)104 mL/min/1.73m???Normal>=60[facility] on above:Order Comment: Specimen Type: BLOOD SPECIMENOrdering Facility: [facility] Address:[address] [place], [place] [address]Result Comment: Estimated Glomerular Filtration Rate (eGFR) is calculated using the 2020 CKD-EPI creatinine equation. This equation utilizes serum creatinine, sex, and age as parameters. The creatinine assay has traceable calibration to isotope dilution-mass spectrometry. Refer to KDIGO guidelines for clinical interpretation. In patients with unstable renal function, e.g. those with acute kidney injury, the eGFR may not accurately reflect actual GFR.Performed By: #### 07959-3 ####[facility] CENTERIA [id number] [place] [address] [place] AMERICAGlucose [Mass/Vol]162 mg/yKIprd94-62XyqrcmmqxThe Surgical Hospital at Southwoodsment on above:Order Comment: Specimen Type: BLOOD SPECIMENOrdering Facility: [facility] Address:[address] [place], [place] [address]Result Comment: The [place] Diabetes Association (ADA) provides guidance for cutoff values for fasting glucose and random glucose. The ADA defines fasting as no caloric intake for at least 8 hours. Fasting plasma glucose results between 100 to 125 mg/dL indicate increased risk for diabetes (prediabetes).Fasting plasma glucose results greater than or equal to 126 mg/dL meet the criteria for diagnosis of diabetes. In the absence of unequivocal hyperglycemia, results should be confirmed by repeattesting. In a patient with classic symptoms of hyperglycemia or hyperglycemic crisis, random plasmaglucose results greater than or equal to 200 mg/dL meet the criteria for diagnosis of diabetes.Reference: Standards of Medical Care in Diabetes 2016, [place] Diabetes Association. Diabetes Care. 2016.39(Suppl 1).Performed By: #### 82095-7 ####[facility] CENTERIA [id number] [place] [address] [place] AMERICAPotassium [Moles/Vol]3.6 mmol/LLow3.7-5.1CMercy Health St. [facility] Comment on above:Order Comment: Specimen Type: BLOOD SPECIMENOrdering Facility: [facility] Address:[address] [place] [address] Performed By: #### 38214-7 ####[facility] LABIA [id number] [place] [address] [place] Sodium [Moles/Vol]138 mmol/BPebdmr604-936MgzrszvhkTrumbull Regional Medical Center on above:Order Comment: Specimen Type: BLOOD SPECIMENOrdering Facility: [facility] Address:[address] [place], [place] [address]Performed By: #### 82995-1 ####[facility] [id number] [place] [address] [place] AMERICAUrea nitrogen [Mass/Vol]20 mg/dLNormal7-21[facility] on above:Order Comment: Specimen Type: BLOOD SPECIMENOrdering Facility: [facility] Address:[address] [place], [place] [address]Performed By: #### 40736- 2 ####[facility] LABCLIA [id number] [place] [address] [place] [facility]IAL HOSPITALCB W Auto Differential panel (Bld)on 21-12-8060Dnxofasze (Bld) [#/Vol]10*3/uLNormal<0.11ClevelSelect Medical [facility] [place] on above:Order Comment: Specimen Type: BLOOD SPECIMENOrdering Facility: [facility] Address:[address] [place], [place] [address]Performed By: #### 71592-3 ####[facility] LABCLIA [id number] [place] [address] [place] Basophils/100 WBC (Bld)0.1 %NormalTrumbull Regional Medical Center on above: Order Comment: Specimen Type: BLOOD SPECIMENOrdering Facility: [facility] Address:[address] [place], [place] [address]Performed By: #### 17666- 8 ####[facility] LABIA [id number] [address] STATES OF MART[facility]IAL HOSPITALDifferential cell count method Nom (Bld)AutoNormalCDayton Children's Hospital on above:Order Comment: Specimen Type: BLOOD SPECIMENOrdering Facility: [facility] Address:[address] [place], [place] [address]Performed By: #### 69969-3 ####[facility] LABCLIA [id number] [place] [address] [place] MARTIN MEMORIAL HOSPITALEosinophils (Bld) [#/Vol]10*3/uL Normal<0.46[facility] on above:Order Comment: Specimen Type: BLOOD SPECIMENOrdering Facility: [facility] Address:[address] [place], [place] [address]Performed By: #### 03166-4 ####[facility] LABCLIA [id number] [place] [address] [place] MARTIN MEMORIAL HOSPITALEosinophils/100 WBC (Bld)0.0 %NormalTrumbull Regional Medical Center on above:Order Comment: Specimen Type: BLOOD SPECIMENOrdering Facility: [facility] Address:[address] [place], [place] [address]Performed By: #### 96409-8 ####[facility] LABIA [id number] [place] [address] [place] Erythrocyte distribution width (RBC) [Ratio]12.1 %Rpnynl82.5-15.0[facility] Grant Medical CenterComment on above:Order Comment: Specimen Type: BLOOD SPECIMENOrdering Facility: [facility] Address:[address] [place], [place] [address]Performed By: #### 92313-7 ####[facility] LABIA [id number] [address] STATES OF AMERICAHematocrit (Bld) [Volume fraction]36.2 %Byavny98.0-46.0Ohiohealth Grant Medical CenterCommclaren central michigan on above:Order Comment: Specimen Type: BLOOD SPECIMENOrdering Facility: [facility] Address:[address] [place], [place] [address]Performed By: #### 93102-5 ####[facility] LABIA [id number] [place] [id number] [place] Hemoglobin (Bld) [Mass/Vol]13.3 g/jHNziskh45.5-15.5CMercy Health St. [facility] Comment on above:Order Comment: Specimen Type: BLOOD SPECIMENOrdering Facility: [facility] Address:[address] [place] [address] Performed By: #### 77556-0 ####[facility] LABCLIA [id number] [place] [address] [place] Immature granulocytes (Bld) [#/Vol]0.14 10*3/uLHigh<0.10[facility] on above:Order Comment: Specimen Type: BLOOD SPECIMENOrdering Facility: [facility] Address:[address] [place], [place] [address]Performed By: #### 04711-6 ####[facility] LABIA [id number] [place] [address] [place] Immature granulocytes/100 WBC (Bld)1.0 %NormalTrumbull Regional Medical Center on above:Order Comment: Specimen Type: BLOOD SPECIMENOrdering Facility: [facility] Address:[address] [place] [address] Performed By: #### 70016-1 ####[facility] [id number] [place] [address] [place] Lymphocytes (Bld) [#/Vol]1.24 10*3/uLNormal1.00-4.00[facility] Comment on above:Order Comment: Specimen Type: BLOOD SPECIMENOrdering Facility: [facility] Address:[address] [place] [address] Performed By: #### 98572-0 ####[facility] LABIA [id number] [place] [address] [place] Lymphocytes/100 WBC (Bld)8.5 %NormalTrumbull Regional Medical Center on above: Order Comment: Specimen Type: BLOOD SPECIMENOrdering Facility: [facility] Address:[address] [place], [place] [address]Performed By: #### 73682- 8 ####[facility] LABIA [id number] [place] [id number] [place] OF AMERICAMCH (RBC) [Entitic mass]31.4 pg Ztzwre47.0-34.0[facility] on above:Order Comment: Specimen Type: BLOOD SPECIMENOrdering Facility: [facility] Address:[address] [place], [place] [address]Performed By: #### 79057-0 ####[facility] LABCLIA [id number] [address]ETMCHC (RBC) [Mass/Vol]36.7 g/dL High30.5-36.0Ohio[facility] Grant Medical CenterComment on above:Order Comment: Specimen Type: BLOOD SPECIMENOrdering Facility: [facility] Address:[address] [place], [place] [address]Performed By: #### 25616-4 ####[facility] LABIA [id number] [address] STATES O[facility] GENERAL HOSPITALMCV (RBC) [Entitic vol]85.6 iGVmfkzc90.0-100.0[facility] on above:Order Comment: Specimen Type: BLOOD SPECIMENOrdering Facility: [facility] Address:[address] [place], [place] [address]Performed By: #### 78024-0 ####[facility] LABIA [id number] [place] [address] [place] AMERICAMonocytes (Bld) [#/Vol]0.29 10*3/uLNormal<0.87[facility] Comment on above:Order Comment: Specimen Type: BLOOD SPECIMENOrdering Facility: [facility] Address:[address] [place] [address] Performed By: #### 46894-4 ####[facility] LABIA [id number] [place] [address] [place] Monocytes/100 WBC (Bld)2.0 %NormalTrumbull Regional Medical Center on above: Order Comment: Specimen Type: BLOOD SPECIMENOrdering Facility: [facility] Address:[address] [place], [place] [address]Performed By: #### 63429- 8 ####[facility] LABCLIA [id number] [place] [address] [place] AMERICANeutrophils (Bld) [#/Vol]12.90 10*3/uLHigh1.45-7.50[facility] on above:Order Comment: Specimen Type: BLOOD SPECIMENOrdering Facility: [facility] Address:[address] [place], [place] [address]Performed By: #### 08558-8 ####[facility] LABIA [id number] [place] [address] [place] AMERICANeutrophils/100 WBC (Bld)88.4 % NormalThe Surgical Hospital at Southwoodsment on above:Order Comment: Specimen Type: BLOOD SPECIMENOrdering Facility: [facility] Address:[address] [place], [place] [address]Performed By: #### 02795-0 ####[facility] LABCENTRAL [facility] [id number] [place] [address] [place] AMERICANucleated RBC (Bld) [#/Vol]10*3/uLNormal<0.01[facility] on above:Order Comment: Specimen Type: BLOOD SPECIMENOrdering Facility: [facility] Address:[address] [place], [place] [address]Performed By: #### 08307-1 ####[facility] LABIA [id number] [place] [address] [place] Nucleated RBC/100 WBC (Bld) [Ratio]0.0 /[address] [facility] Comment on above:Order Comment: Specimen Type: BLOOD SPECIMENOrdering Facility: [facility] Address:[address] [place] [address] Performed By: #### 75969-5 ####[facility] LABIA [id number] [place] [id number] [place] Platelet mean volume (Bld) [Entitic vol]9.5 fLNormal9.0-12.7Cleveland Clinic ClevelandComment on above:Order Comment: Specimen Type: BLOOD SPECIMENOrdering Facility: [facility] Address:[address] [place], [place] [address]Performed By: #### 83427-1 ####[facility] LABCLIA [id number] [address] [place] [address] [place] Platelets (Bld) [#/Vol]330 10*3/pXZjhxvd308-620VaxalzrfiTrumbull Regional Medical Center on above:Order Comment: Specimen Type: BLOOD SPECIMENOrdering Facility: [facility] Address:[address] [place] [address] Performed By: #### 25387-8 ####[facility] LABIA [id number] [place] [address] [place] RBC (Bld) [#/Vol]4.23 10*6/uLNormal3.90-5.20[facility] on above:Order Comment: Specimen Type: BLOOD SPECIMENOrdering Facility: [facility] Address:[address] [place], [place] [address]Performed By: #### 70529-8 ####[facility] LABIA [id number] [place] [address] [place] MART[facility] MEMORIAL HOSPITALWBC (Bld) [#/Vol]14.59 10*3/uLHigh3.70-11.00[facility] on above:Order Comment: Specimen Type: BLOOD SPECIMENOrdering Facility: [facility] Address:[address] [place], [place] [address]Performed By: #### 32244-3 ####[facility] LABIA [id number] [place] [id number] [place] AMERICACTV HEAD WO/W IVCONon 09-22-2024 CTV HEAD WO/W IVCONNormalSamaritan North Health Center PROGRESS NOTE (PROVIDER)on 61-05-7765PF PROGRESS NOTE (PROVIDER)NormalSamaritan North Health Center PROV NOTEon 64-44-2898HF PROV NOTENormalCMercy Health St. [facility] CleSouthwest General Health Center Triage Noteon 68-47-9246LI Triage NoteNoUniversity Hospitals Parma Medical Center ClevelandCNPNon 12-14-2023PPOX NormalOhiohealth Grant Medical CenterANA BY IFA SCREENon 16-74-1994Khtojqk Ab Ql (S) NegativeNormalNegativeTrumbull Regional Medical Center on above:Order Comment: Specimen Type: BLOOD SPECIMENOrdering Facility: [facility] Address:[address] [place], [place] [address]Result Comment: Anti-nuclear antibody test is used as an aid in diagnosis of systemic autoimmune diseases. Where positive and clinically warranted, follow-up using disease-specific testing is recommended. Low positive titers are not uncommon with advanced age, certain chronic infections, and malignancies among others.Test methodology: Indirect fluorescence immunoassay (IFA) using HEp-2 cells.Performed By: #### ANAIFS ####[facility] LABIA [id number] [address] STATES OF AMERICACentromere Ab IF Ql (S)on 84-73-9455Gjmqdtyuhl Ab Qn (S)<0.2Normal<1.0[facility] on above:Order Comment: Specimen Type: BLOOD SPECIMENOrdering Facility: [facility] Address:[address] [place], [place] [address]Result Comment: Anti-centromere antibody is used as in aid in diagnosis of systemic sclerosis. Clinical correlation is required.Test Methodology: Multiplex flow immunoassay. Performed By: #### 33014-6, 56594-2, 00865-4, 15035-2, 77538-7, 89822-9, 25843- 9, 29074-6 ####[facility] LABIA [id number] [place] [address] [place] AMERICACENTROMERE AB QUAL NegativeNormalNegativeTrumbull Regional Medical Center on above:Order Comment: Specimen Type: BLOOD SPECIMENOrdering Facility: [facility] Address:[address] [place], [place] [address]Performed By: #### 79498-2, 12406-6, 01634-3, 52262-4, 18174-0, 82345-2, 35362-4, 14354-2 ####[facility] CENTERIA [id number] [place] [address] [place] [facility] HOSPITALChromatin Ab Qnon 81-46-3271DYOBSVGHI AB QUALNegativeNormal NegativeTrumbull Regional Medical Center on above:Order Comment: Specimen Type: BLOOD SPECIMENOrdering Facility: [facility] Address:[address] [place], [place] [address]Performed By: #### 57315-1, 00671-1, 37876-4, 64224-9, 72722-3, 92201-5, 38700-8, 26496-4 ####[facility]ENTERIA [id number] [address] STATES AMERICAChromatin Ab SerPl-aCncon 21-59-2192Subwgmkna Ab Qn<0.2Normal<1.0 [facility] on above:Order Comment: Specimen Type: BLOOD SPECIMENOrdering Facility: [facility] Address:[address] [place], [place] [address]Result Comment: Test Methodology: Multiplex flow immunoassay. Performed By: #### 78908-6, 37862-0, 83683-3, 11373-2, 71107-2, 26217-5, 56111- 9, 63891-4 ####[facility] CENTERIA [id number] [place] [address] [place] AMERICAENA Jo1 Ab Ser-aCncon 58-25-5363My-1 extractable nuclear Ab Qn (S)<0.2Normal<1.0[facility] on above:Order Comment: Specimen Type: BLOOD SPECIMENOrdering Facility: [facility] Address:[address] [place], [place] [address]Performed By: #### 54662-0, 14612-4, 18036-8, 96627-0, 33354-7, 18229-2, 06329-4, 82684-2 ####[facility] LABIA [id number] [address] STATES OF AMERICAENA VENDING MACHINE OPERATOR Ab Ser-aCncon 60-51-5109Xhmwtnsdcgjikefkx extractable nuclear Ab Qn (S)<0.2Normal<1.0[facility] on above:Order Comment: Specimen Type: BLOOD SPECIMENOrdering Facility: [facility] Address:[address] [place], [place] [address]Performed By: #### 39697-1, 64003-2, 36972-9, 63729-1, 31014- 5, 12262-8, 56430-8, 89766-8 ####[facility]ENTERIA [id number] [address] [place] CISCO SM IgG Ser-aCncon 84-23-2331Rooiz extractable nuclear IgG Qn (S)<0.2Normal <1.0[facility] on above:Order Comment: Specimen Type: BLOOD SPECIMENOrdering Facility: [facility] Address:[address] [place], [place] [address]Performed By: #### 08049-4, 17375-7, 63020-0, 55961-1, 02739-7, 02866-0, 78700-0, 64585-6 ####[facility] [id number] [address] [place] CISCO SS-A Ab Ser-aCncon 88-61-0615Acaiyvfp syndrome-A extractable nuclear Ab Qn (S)<0.2Normal<1.0[facility] on above:Order Comment: Specimen Type: BLOOD SPECIMENOrdering Facility: [facility] Address:[address] [place], [place] [address]Result Comment: Test Methodology: Multiplex flow immunoassay.Performed By: #### 09556-5, 39991-8, 45581-2, 48617- 6, 08907-5, 64605-5, 01644-3, 88020-6 ####[facility]ENTERIA [id number] [address] [address] [place] CISCO SS-B Ab Ser-aCncon 98-84-6643Pinfhbqb syndrome-B extractable nuclear Ab Qn (S)<0.2Normal<1.0[facility] on above:Order Comment: Specimen Type: BLOOD SPECIMENOrdering Facility: [facility] Address:[address] [place], [place] [address]Result Comment: Anti-SSB (anti-La) antibody is used as an aid in diagnosis of a variety of systemicautoimmune diseases, especially for Sjogren's syndrome and systemic lupus erythematosus. Clinical correlation is required.Test Methodology: Multiplex flow immunoassay. Performed By: #### 08185-4, 75519-3, 48704-1, 33483-4, 02145-1, 33970-6, 53986- 9, 38058-5 ####[facility] [id number] [place] [id number] [facility] GYJUOZXLoQ6w (Bld)on 96-52-8170Aamggxz glucose Estimated from glycated hemoglobin (Bld) [Mass/Vol]80 mg/dLNormalCDayton Children's Hospital on above:Order Comment: Specimen Type: BLOOD SPECIMENOrdering Facility: [facility] Address:[address] [place], [place] [address]Result Comment: eAG: (Estimated average glucose) is a calculated value from HgbA1c and is outside energy sales representatives of the average blood glucose level in the last 2-3 month period.Performed By: #### 16185-9 ####[facility] [id number] [place] [address] [place] SKGNEITNnR8u (Bld) [Mass fraction]4.4 % Normal4.3-5.6CDayton Children's Hospital on above:Order Comment: Specimen Type: BLOOD SPECIMENOrdering Facility: [facility] Address:[address] [place], [place] [address]Result Comment: [place] Diabetes Association guidelines indicate that patients with HgbA1c in the range 5.7-6.4% are at increased risk for development of diabetes, and intervention by lifestyle modif ication may be beneficial. HgbA1c greater or equal to 6.5% is considered diagnostic of diabetes.Performed By: #### 94869-1 ####[facility] LABCLIA [id number] [place] [address] [place] AMERICAJo-1 extractable nuclear Ab Qn (S)on 62-05-5559ED 1 ANTIBODY QUALNegativeNormalNegativeTrumbull Regional Medical Center on above:Order Comment: Specimen Type: BLOOD SPECIMENOrdering Facility: [facility] Address:[address] [place], [place] [address]Result Comment: Anti-MALIHA-1 antibody is used as an aid in diagnosis of polymyositis and dermatomyositis especially with pulmonary involvement. A negative result cannot rule out polymyositis or dermatomyositis. Clinical correlation is required.Test Methodology: Multiplex flow immunoassay.Performed By: #### 84135-8, 37416-2, 93653-7, 17847-7, 71064-5, 92304-1, 34612-3, 81282-0 ####[facility] LABCLIA [id number] [place] [id number] [place] AMERICAKAPPA/REDMOND,FREE,SERon 76-65-4957Ypvkarrmrfatbt light chains.kappa.free (S) [Mass/Vol]16.4 mg/LNormal3.3-19.4CDayton Children's Hospital on above:Order Comment: Specimen Type: BLOOD SPECIMENOrdering Facility: [facility] Address:[address] [place], [place] [address]Result Comment: Rarely, increased serum free light chains levels may not be detected or accurately quantified due to prozone phenomenon or in high viscosity samples using this immunoturbidimetric assay. Correlation with other laboratory results and clinical findings is recommended.The [place] Free Light Chain was performed using the Binding Site Optilite immunoturbidimetric method. Result obtained with different assay methods or kits cannot be used interchangeably.Performed By: #### KLFRS ####[facility] LABIA [id number] [place] [address] [place] AMERICAImmunoglobulin light chains.kappa/Immunoglobulin light chains.lambda (S) [Mass ratio]1.97Omjthn8.26-1.65[facility] on above:Order Comment: Specimen Type: BLOOD SPECIMENOrdering Facility: [facility] Address:[address] [place], [place] [address]Performed By: #### KLFRS ####[facility] LABIA [id number] [facility] [address] [address] [place] AMERICAImmunoglobulin light chains.lambda.free [Mass/Vol]11.8 mg/LNormal5.7-26.3CMercy Health St[facility] Comment on above:Order Comment: Specimen Type: BLOOD SPECIMENOrdering Facility: [facility] Address:[address] [place], [place] [address]Result Comment: Rarely, increased serum free light chains levels may not be detected or accurately quantified due to prozone phenomenon or in high viscosity samples using this immunoturbidimetric assay. Correlation with other laboratory results and clinical findings is recommended.The Lambda Free Light Chain was performed using the Binding Site Optilite immunoturbidimetric method. Result obtainedwith different assay methods or kits cannot be used interchangeably.Performed By: #### KLFRS ####[facility] [id number] [place] [address] [place] AMERICAPROTEIN ELECTROPHORESIS SERUM WITH ERROL (P)on 31-91-9160Fkhykvf [Mass/Vol]4.10 g/dLNormal 3.43-5.41[facility] CenterCommclaren central mich[place] on above:Order Comment: Specimen Type: BLOOD SPECIMENOrdering Facility: [facility] Address:[address] [place], [place] [address]Performed By: #### [id number] ####[facility] [id number] [place] [address] [place] AMERICAAlpha 1 globulin Elph [Mass/Vol]0.25 g/dLNormal0.18-0.43 [facility] CenterComment on above:Order Comment: Specimen Type: BLOOD SPECIMENOrdering Facility: [facility] Address:[address] [place], [place] [address]Performed By: #### [id number] ####[facility] LABIA [id number] [place] [address] [place] AMERICAAlpha 2 globulin Elph [Mass/Vol]0.62 g/dLNormal0.42-0.98[facility] on above:Order Comment: Specimen Type: BLOOD SPECIMENOrdering Facility: [facility] Address:[address] [place], [place] [address]Performed By: #### [id number] ####[facility] [id number] [place] [address] [place] Beta globulin Elph [Mass/Vol]0.67 g/dLNormal0.61-1.17[facility] Comment on above:Order Comment: Specimen Type: BLOOD SPECIMENOrdering Facility: [facility] Address:[address] [place] [address] Performed By: #### [id number] ####[facility] [id number] [place] [address] [place] COMMENT (SERUM PROT ELECTRO)Monoclonal Protein analysis (immunofixation) is not indicated.NormalTrumbull Regional Medical Center on above:Order Comment: Specimen Type: BLOOD SPECIMENOrdering Facility: [facility] Address:[address] [place], [place] [address]Performed By: #### [id number] ####[facility] [id number] [place] [address] [place] AMERICAGamma globulin Elph [Mass/Vol] 0.56 g/dLNormal0.53-1.51[facility] on above:Order Comment: Specimen Type: BLOOD SPECIMENOrdering Facility: [facility] Address:[address] [place], [place] [address]Performed By: #### [id number] ####[facility] LABIA [id number] [place] [address] [place] [facility] HOSPITALM-PROTEIN LOCATION NormalTrumbull Regional Medical Center on above:Order Comment: Specimen Type: BLOOD SPECIMENOrdering Facility: [facility] Address:[address] [place], [place] [address]Result Comment: Not Applicable.Performed By: #### [id number] ####[facility] LABCLIA [id number] [place] [address] [place] AMERICAProtein Fractions [Interp]No definitive M protein is identified on protein electrophoresis.Normal No definitive M protein is identified on protein electrophoresis.[facility] on above:Order Comment: Specimen Type: BLOOD SPECIMENOrdering Facility: [facility] Address:[address] [place], [place] [address]Performed By: #### [id number] ####[facility] LABIA [id number] [place] [address] [place] AMERICAProtein.monoclonal Elph [Mass/Vol]0.00 g/dLNormal<=0.00[facility] on above:Order Comment: Specimen Type: BLOOD SPECIMENOrdering Facility: [facility] Address:[address] [place], [place] [address]Performed By: #### [id number] ####[facility] LABIA [id number] [place] [id number] [place] SPE STAFF REVIEWReviewed by Radha Winchester MDNormalCMercy Health St. [facility] Comment on above:Order Comment: Specimen Type: BLOOD SPECIMENOrdering Facility: [facility] Address:[address] [place] [address] Performed By: #### [id number] ####[facility] LABIA [id number] [place] [id number] [place] Prot SerPl-mCncon 64-03-1397Lzywuad [Mass/Vol]6.2 g/dLLow6.3-8.0[facility] on above:Order Comment: Specimen Type: BLOOD SPECIMENOrdering Facility: [facility] Address:[address] [place], [place] [address]Performed By: #### 2885-2, 2132-9 ####[facility] LABIA [id number] [place] [address] [place] Ribonucleoprotein extractable nuclear Ab Qn (S)on 64-77-6852SJBY-VENDING MACHINE OPERATOR QUAL NegativeNormalNegativeTrumbull Regional Medical Center on above:Order Comment: Specimen Type: BLOOD SPECIMENOrdering Facility: [facility] Address:[address] [place], [place] [address]Performed By: #### 58302-8, 73837-8, 82438-9, 62051-2, 38691-8, 66732-5, 83896-2, 81853-8 ####[facility] [id number] [address], [facility] [place] STATES OF MART[facility]IAL HOSPITALRIBOSOMAL VENDING MACHINE OPERATOR QUALNegativeNormalNegativeTrumbull Regional Medical Center on above:Order Comment: Specimen Type: BLOOD SPECIMENOrdering Facility: [facility] Address:[address] [place], [place] [address]Result Comment: Anti-Ribosomal RNA (Ribosomal P) antibody is used as an aid in diagnosis of systemic autoimmune diseases especially systemic lupus erythematosus and mixed connective tissue disease. Cross-reactivity with Anti- ritter antibody is not uncommon. Clinical correlation is required.Test Metho dology: Multiplex flow immunoassay.Performed By: #### 34992-9, 60873-0, 25324-9, 26275-1, 65856-6, 17881-6, 20738-3, 23653-3 ####[facility] LABIA [id number] [address] [place] [address] [place] AMERICASCL-70 extractable nuclear IgG IA Qn (S)on 86-72-4350XAFYEGKJJFZ AB QUAL NegativeNormalNegativeTrumbull Regional Medical Center on above:Order Comment: Specimen Type: BLOOD SPECIMENOrdering Facility: [facility] Address:[address] [place], [place] [address]Performed By: #### 59047-4, 59572-5, 61982-7, 88180-7, 31532-0, 97290-8, 97654-5, 86694-1 ####[facility] LABCLIA [id number] [place] [address] [place] OF AMERICASCLERODERMA IGG AB<0.2Normal<1.0[facility] Comment on above:Order Comment: Specimen Type: BLOOD SPECIMENOrdering Facility: [facility] Address:[address] [place], [place] [address]Result Comment: Scl-70/Scleroderma antibody test is used as an aid in diagnosis of systemic sclerosis especially the diffuse cutaneous form. A negative result cannot rule out systemic sclerosis. The final interpretation should consider clinical picture and other test results such as anti-centromereantibody. Test Methodology: Multiplex flow immunoassay.Performed By: #### 98436-9, 06201-4, 71676-3, 96797-6, 68974-6, 30223-3, 10676-2, 78416-2 ####[facility] LABCLIA [id number] [address] [address] [place] OF AMERICASjogrens syndrome-A extractable nuclear Ab Qn (S)on 08-05-2024 SSA ANTIBODY QUALNegativeNormalNegativeTrumbull Regional Medical Center on above:Order Comment: Specimen Type: BLOOD SPECIMENOrdering Facility: [facility] Address:[address] [place], [place] [address]Performed By: #### 72663-3, 70417-7, 29519-1, 83244-8, 77566-7, 06444-1, 96758-5, 69969-5 ####[facility] LABCLIA [id number] [address] [address] [place] AMERICASjogrens syndrome-B extractable nuclear Ab Qn (S)on 34-88-8357FPH ANTIBODY QUALNegativeNormalNegativeTrumbull Regional Medical Center on above:Order Comment: Specimen Type: BLOOD SPECIMENOrdering Facility: [facility] Address:[address] [place], [place] [address]Performed By: #### 69928-5, 03238-3, 13781-8, 86808-4, 50708- 5, 79020-1, 19108-6, 37220-9 ####[facility] LABIA [id number] [place] [address] [place] Ritter extractable nuclear IgG Qn (S)on 38-79-0371NT ANTIBODY QUALNegativeNormal NegativeTrumbull Regional Medical Center on above:Order Comment: Specimen Type: BLOOD SPECIMENOrdering Facility: [facility] Address:[address] [place], [place] [address]Result Comment: Anti-Sm (Ritter) antibody is used as an aid in diagnosis of systemic lupus erythematosus and its presence is associated with renal disease. A negative result cannot rule out systemic lupus erythematosus. Clinical correlation is required.Test Methodology: Multiplex flow immunoassay.Performed By: #### 77412-7, 76596-9, 90408-5, 60362-9, 76621-8, 81180-2, 80442-1, 10780-0 ####[facility] LABIA [id number] [place] [address] [place] Vit B12 SerPl-mCncon 32-62-5239Slwjazupm (Vitamin B12) [Mass/Vol]718 pg/mLNormal 232-1245CDayton Children's Hospital on above:Order Comment: Specimen Type: BLOOD SPECIMENOrdering Facility: [facility] Address:[address] [place], [place] [address]Performed By: #### 2885-2, 2132-9 ####[facility] LABIA [id number] [place] [address] [place] AMERICACNOVon 38-18-2448KZWNFzjyydYztixuuvw Clinic ClevelandCNPNon 37-54-1708CEJODcksfxHuqvvgxvd Clinic ClevelandMRI BRAIN WO IVCON on 89-27-9387MXF BRAIN WO IVCON* * *Final Report* * * * * [...] * * Partially empty sella is suggested. Music Orchestrator: PSCB Transcribe Date/Time: Jul 03 2024 2:09P Dictated by : GERARD FLORES MD This examination was interpreted and the report reviewed and electronically signed by: GERARD FLORES MD on Jul 03 2024 2:07PM EST This document has been addended by: GERARD FLORES MD on Jul 03 2024 2:10PM EST [id number] Behavioral Health Center CERVICAL SPINE WO IVCONon 13-53-6066LYS CERVICAL SPINE WO IVCON* * *Final Report* * * DATE OF EXAM: Jul 03 2024 12:01PM [facility] 0297 - MRI CERVICAL SPINE WO IVCON [...] and assume there are 5 lumbar-type vertebrae. Music Orchestrator: PSCB Transcribe Date/Time: Jul 03 2024 2:13P Dictated by : GERARD FLORES MD This examination was interpreted and the report reviewed and electronically signed by: GERARD FLORES MD on Jul 03 2024 2:21PM EST [id number] HospitalMR LUMBAR SPINE WO IVCONon 19-44-5138IHT LUMBAR SPINE WO IVCON* * *Final Report* * * DATE OF EXAM: Jul 03 2024 12:01PM [facility] 0303 - MRI LUMBAR SPINE WO IVCON [...] and assume there are 5 lumbar-type vertebrae. Music Orchestrator: ANA Transcribe Date/Time: Jul 03 2024 2:13P Dictated by : GERARD FLORES MD This examination was interpreted and the report reviewed and electronically signed by: GERARD FLORES MD on Jul 03 2024 2:21PM EST [id number] Point Hospital BRAIN WO/W IVCONon 07-03-2024 MRV BRAIN WO/W IVCON* * *Final Report* * * DATE OF EXAM: Jul 03 2024 12:01PM [facility] 0336 - MRV BRAIN WO/W IVCON / PROCEDURE REASON: IIH (idiopathic intracranial hypertension) * * * * Physician Interpretation * * * * MRV WITHOUT AND WITH CONTRAST HISTORY: Idiopathic intracranial hypertension. TECHNIQUE: 2-dimensional yghr-fl-bxqxsi MRV with maximum intensity projections and source images utilized for interpretation. 3-dimensional jmtc-ic-yrjzpp MRV with contrast with maximum intensity projections [...] could be seen with transverse sinus stenosis. Music Orchestrator: PSCGreta Transcribe Date/Time: Jul 03 2024 2:07P Dictated by : GERARD FLORES MD This examination was interpreted and the report reviewed and electronically signed by: GERARD FLORES MD on Jul 03 2024 2:12PM EST [id number] HospitalNURSBAYSTATE FRANK[facility] PROGon 99-65-4848MDBKGIX [facility] ID: [id number] Author: GIANNI BURGER RN Service: Radiology Author [...] SIGNATURE: Gianni Burger RN PATIENT NAME: Karolina Nicole DATE: July 03, 2024 TIME: 11:19 [facility] 63-73-0751WLDAWimyhaMbpmzivrtKettering Health Springfieldmmography reportOrdered By: Mj Garcia on 32-36-7166Chptcxsals imaging studyOHIOHEALTH Main Price [address] [place] [address] Mammography Report Signed Patient: Karolina Nicole MR#: [id number] : 1985 Acct:[id number] Age/Sex: 38 / F ADM Date: 5 Loc: [place] Room: Type: [facility] Attending Dr: Yoan Ivey MD Copies to: Yoan Ivey MD~ Ordering Provider: Yoan Ivey MD Date of Service: 06/27/24 MM/MM diagnostic mammo BI w/CAD: PAIN ([id number]) US/US breast LT limited: R92.8 DIAGNOSTIC BILATERAL MAMMOGRAM - FULL FIELD DIGITAL WITH TOMOSYNTHESIS CLINICAL DATA: Abnormal ultrasound, sharp breast pain bilaterally lateral breast pain Craniocaudal and mediolateral oblique views of the () breast were obtained using low-dose digital technique. Comparison is made to prior studies from 12/22/2022. This examination was reviewed with theaid of CAD. Predominantly fatty breast tissue bilaterally. There are no dominant masses, typically malignant calcifications or architectural distortion. There has been no significant interval change. Sonographic follow-up for left-sided clinical concern was performed. At 1:00 within the left breast, there are redemonstration of an heterogeneous ovoid structure which measured 1.0 x 0.2 cm in priorexam, is unchanged in size, currently measuring 9 [...] Mj Garcia M.D.06/27/2024 3:39 PM Dictation Location: [facility] Transcribed By: ODALYS 06/27/24 1539 Dictated By: Mj Garcia MD 06/27/24 1505 Signed By: 06/27/24 1893 [facility] Work Phone: us breast LT limitedon 96-62-8273RQ breast LT limited [facility] [address] [place], [place] [id number] Mammography Report Signed Patient: Karoilna Nicole MR#: [id number] : 1985 Acct:[id number] Age/Sex: 38 / F ADM Date: 06/27/24 Loc: [place] Room: Type: [facility] Attending Dr: Yoan Ivey MD Copies to: Yoan Ivey MD Ordering Provider: Yoan Ivey MD Date of Service: 06/27/24 MM/MM diagnostic mammo BI w/CAD: PAIN ([id number]) US/US breast LT limited: R92.8 DIAGNOSTIC BILATERAL [...] Mj Garcia M.D.06/27/2024 3:39 PM Dictation Location: [facility] Transcribed By: OADLYS 06/27/24 1539 Dictated By: Mj Garcia MD 06/27/24 1505 Signed By: 06/27/24 1539[facility] Physician GroupBSCAN AND ASCAN OU (BOTH EYES)on 29-67-7196Gnrcuoviv ClinicRadiology Study observation (narrative)[facility] Jewish HospitalCNOVon 90-42-3495MTTARniffiPutusfqud Clinic ClevelandCRP SerPl-mCncon 65-96-9280RDK [Mass/Vol]mg/LNormal<0.9CDayton Children's Hospital on above:Order Comment: Specimen Type: BLOOD SPECIMENOrdering Facility: [facility] Address:[address] [place], [place] [address]Performed By: #### 1988-5 ####[facility] LABIA [id number] [place] [address] [place] AMERICAESR Westergren method (Bld) [Velocity]on 21-13-7702PYW (Bld) [Velocity]2 mm/hNormal0-20[facility] on above:Order Comment: Specimen Type: BLOOD SPECIMENOrdering Facility: [facility] Address:[address] [place], [place] [address]Performed By: #### 4537-7 ####[facility] LABIA [id number] [place] [address] [place] AMERICAOCT OPTIC NERVE CIRRUS OU (BOTH EYES)on 31-54-8880Xqjrigzfd Clinic Radiology Study observation (narrative)[facility] HospitalVISUAL FIELD 24-2 OU (BOTH EYES)on 54-45-6871Jainhypbd ClinicRadiology Study observation (narrative) [facility] HospitalCNOVon 74-19-7884NAMZGwnhieBdcohrozp [facility] HospitalCNPNon 11-27-3903ESLLSiqsraYeyjttmor Clinic ClevelandNo Panel Informationon 06-03-2024 Radiology Study observation (narrative)[facility] HospitalXR CERVICAL 4V AP/LAT/OBL on 81-42-2542GH CERVICAL 4V AP/LAT/OBLNormalCMercy Health St. Elizabeth Boardman HospitalXR Cervical spine AP and Lateral and obliqueon 93-20-0167MBLXRIXFMZ: Mild to moderate left C3-C4 bony foraminal narrowing. Music Orchestrator: ANA Transcribe Date/Time: Jun 03 2024 12:00P Dictated by : FADUMO JOSEPH MD This examination was interpreted and the report reviewed and electronically signed by: FADUMO JOSEPH MD on Jun 03 2024 12:03PM [facility] DIVISION OF RADIOLOGY* * *Final Report* * * DATE OF [...] tissues are within normal limits. DIVISION OF RADIOLOGYProvider, [facility] [place] - 06/03/2024 * * *Final Report* * [...] to moderate left C3-C4 bony foraminal narrowing. Music Orchestrator: [facility] MEDICAL CENTERGreta Transcribe Date/Time: Jun 03 2024 12:00P Dictated by : FADUMO JOSEPH MD This examination was interpreted and the report reviewed and electronically signed by: FADUMO JOSEPH MD on Jun 03 2024 12:03PM EST [facility] HospitalXR Cervical spine AP and Lateral and obliqueOrdered By: Ccf Provider on 62-61-3778Duowakbxz ClinicXR LUMBAR 3V AP/LAT/L5-S1on 71-50-6932UN LUMBAR 3V AP/LAT/L5-Q4ZrbhcqWyhleajhr [facility] HospitalXR Lumbar spine 3 Viewson 94-92-5371AUNSHXTNEW: Lumbar spine degenerative changes and levoscoliosis. Prominent hepatic shadow, and ultrasound liver may be considered for further evaluation as clinically warranted. Music Orchestrator: ANA Transcribe Date/Time: Jun 03 2024 12:10P Dictated by : FADUMO JOSEPH MD This examination was interpreted and the report reviewed and electronically signed by: FADUMO JOSEPH MD on Jun 03 2024 12:12PM EST DIVISION OF RADIOLOGY* * *Final Report* * * DATE OF [...] right abdomen. Prominent hepatic shadow. DIVISION OF RADIOLOGYProvider, [facility] [place] - 06/03/2024 * * *Final Report* * [...] considered for further evaluation as clinically warranted. Music Orchestrator: ANA Transcribe Date/Time: Jun 03 2024 12:10P Dictated by : FADUMO JOSEPH MD This examination was interpreted and the report reviewed and electronically signed by: FADUMO JOSEPH MD on Jun 03 2024 12:12PM [facility] HospitalCNPTOUTREACHon 66-22-9607CMBQOJLFLERVRgkafn [facility] Medical CenterAlanine aminotransferase [Enzymatic activity/volume] in Serum or PlasmaOrdered By: Florencio Guevara on 37-34-8072ZHW [Catalytic activity/Vol]Alanine aminotransferase [Enzymatic activity/volume] in Serum or Plasma7-52[facility] Medical CenterAlbumin [Mass/volume] in Serum or Plasma by Bromocresol green (BCG) dye binding methoOrdered By: Florencio Guevara on 77-54-3430Ifwksbw BCG dye [Mass/Vol]Albumin [Mass/volume] in Serum or Plasma by Bromocresol green (BCG) dye binding metho3.5-5.7FTrinity Health System Twin City Medical CenterAlkaline phosphatase [Enzymatic activity/volume] in Serum or PlasmaOrdered By: Florencio Guevara on 63-88-7502CEY [Catalytic activity/Vol]Alkaline phosphatase [Enzymatic activity/volume] in Serum or Epyllw30-040GpqvunuzvSouthview Medical CenterAspartate aminotransferase [Enzymatic activity/volume] in Serum or Plasma Ordered By: Florencio Guevara on 58-70-8805PBJ [Catalytic activity/Vol]Aspartate aminotransferase [Enzymatic activity/volume] in Serum or Skrpmn54-45ZbpjkgcufSouthview Medical CenterBasophils Auto (Bld) [#/Vol]Ordered By: Florencio Guevara on 74-80-6048Cyvenutxq (Bld) [#/Vol]Automated basophil count0.0-0.2FTrinity Health System Twin City Medical CenterBasophils/100 WBC Auto (Bld)Ordered By: Florencio Guevara on 47-17-8953Jrljpiaya/100 WBC (Bld)Automated basophil %.[facility] Medical CenterBilirubin.total [Mass/volume] in Serum or PlasmaOrdered By: Florencio Guevara on 60-97-3190Qovzfbafg [Mass/Vol]Bilirubin.total [Mass/volume] in Serum or Plasma0.3-1.0[facility] CenterCalcium [Mass/volume] in Serum or PlasmaOrdered By: Florencio Guevara on 78-71-3335Aejofkh [Mass/Vol]Calcium [Mass/volume] in Serum or Plasma8.6-10.3FTrinity Health System Twin City Medical CenterCarbon dioxide, total [Moles/volume] in Serum or PlasmaOrdered By: Florencio Guevara on 53-17-3534LZ4 [Moles/Vol]Carbon dioxide, total [Moles/volume] in Serum or Plasma 21.0-31.0[facility] Medical CenterChloride [Moles/volume] in Serum or PlasmaOrdered By: Florencio Guevara on 01-71-5660Kkgycmnj [Moles/Vol]Chloride [Moles/volume] in Serum or Ksztpu95-449YsoiivmcdSouthview Medical CenterComplete Blood Count no reflexon 35-61-1568Yrhdpyfrk (Bld) [#/Vol]0.1 10*3/uLNormal 0.0-0.2[facility] Physician GroupComment on above:Result Comment: PERFORMED BY: [address]MARIA [place] [address] PATHOLOGIST CORE CLEANER SCOTTIE LEE M.D.Performed By: #### CHC CBC, CMP #### [facility] [address] [place] [address] USABasophils/100 WBC (Bld)0.8 %Normal.The [facility] Physician GroupComment on above:Performed By: #### CHC CBC, CMP #### [place] [address] USAEosinophils (Bld) [#/Vol]0.3 10*3/uLNormal0.0-0.45The [facility] Physician GroupComment on above:Performed By: #### CHC CBC, CMP #### [place] [address] USAEosinophils/100 WBC (Bld)4.2 %Normal.The [facility] Physician GroupComment on above:Performed By: #### CHC CBC, CMP #### [place] [address] USAErythrocyte distribution width (RBC) [Ratio]12.1 %Normal 11.9-15.3The [facility] Physician GroupComment on above:Performed By: #### CHC CBC, CMP #### [place] [address] USAHematocrit (Bld) [Volume fraction]37.4 %Avccil90.0-46.4The [facility] Physician GroupComment on above:Performed By: #### CHC CBC, CMP #### [place] [address] USAHemoglobin (Bld) [Mass/Vol]12.8 g/mBQfvcii93.8-15.4The [facility] Physician GroupComment on above:Performed By: #### CHC CBC, CMP #### [place] [address] USALymphocytes (Bld) [#/Vol]3.0 10*3/uLNormal1.00-4.8The [facility] Physician GroupComment on above:Performed By: #### CHC CBC, CMP #### [place] [address] USALymphocytes/100 WBC (Bld)41.6 %Normal.The [facility] Physician GroupComment on above:Performed By: #### CHC CBC, CMP #### [place] [address] USAH (RBC) [Entitic mass]31.2 xqUuvbvy18.7-34.3The [facility] Physician GroupComment on above:Performed By: #### CHC CBC, CMP #### [place] [address] USAMCV (RBC) [Entitic vol]91.4 jUWjyvff16-865Pyf [facility] Physician GroupComment on above:Performed By: #### CHC CBC, CMP #### [place] [address] USAMean Corpuscular HGB Conc34.2 g/mZYimtjn75.0-35.0The [facility] Physician GroupComment on above:Performed By: #### CHC CBC, CMP #### [place] [address] USAMonocytes (Bld) [#/Vol]0.3 10*3/uLNormal0.0-0.8The [facility] Physician GroupComment on above:Performed By: #### CHC CBC, CMP #### [place] [address] USAMonocytes/100 WBC (Bld)3.8 %Normal.The [facility] Physician GroupComment on above:Performed By: #### CHC CBC, CMP #### [place] [address] USANeutrophils (Bld) [#/Vol]3.6 10*3/uLNormal1.8-7.7The [facility] Physician GroupComment on above:Performed By: #### CHC CBC, CMP #### [place] [address] USANeutrophils/100 WBC (Bld)49.6 %Normal.The [facility] Physician GroupComment on above:Performed By: #### CHC CBC, CMP #### [address] [place] [address] USANRBC%0.1 /100{WBC}Normal0-0.5The [facility] Comment on above:Performed By: #### HEATHER CBC, CMP #### [place] [address] USAPlatelet mean volume (Bld) [Entitic vol]8.3 fLNormal 6.3-10.7The [facility] Physician GroupComment on above:Performed By: #### HEATHER CBC, CMP #### [place] [address] USAPlatelets (Bld) [#/Vol]320 10*3/rYCsatkr646-111Lqg [facility] Physician GroupComment on above:Performed By: #### HEATHER CBC, CMP #### [place] [address] USARBC (Bld) [#/Vol]4.10 10*6/uLNormal3.60-5.00The [facility] [facility] Physician GroupComment on above:Performed By: #### HEATHER CBC, CMP #### [place] [address] USAWBC (Bld) [#/Vol]7.2 10*3/uLNormal3.8-11.6The [facility] Physician GroupComment on above:Performed By: #### HEATHER CBC, CMP #### [place] [address] USAComprehensive Metabolic Panelon 55-73-3675Lfvyqmq [Mass/Vol]4.6 g/dLNormal3.5-5.7The [facility] Physician GroupComment on above: Performed By: #### HEATHER CBC, CMP #### [place] [address] USAAlbumin/Globulin [Mass ratio]1.8 {ratio}NormalThe [facility] Physician GroupComment on above:Performed By: #### HEATHER CBC, CMP #### [place] [address] USAALP [Catalytic activity/Vol]61 U/NGgohqp68-046Cpx [facility] Physician GroupComment on above:Result Comment: PERFORMED BY: [place] [address] PATHOLOGIST CORE CLEANER SCOTTIE LEE M.D.Performed By: #### CHC CBC, CMP #### [place] [address] USAALT [Catalytic activity/Vol]27 U/LNormal7-52The [facility] Physician GroupComment on above:Performed By: #### CHC CBC, CMP #### [place] [address] USAAnion gap [Moles/Vol]13.2 mmol/LNormal6.0-15.0The [facility] Physician GroupComment on above:Performed By: #### CHC CBC, CMP #### [place] [address] USAAST [Catalytic activity/Vol]28 U/HJtvnga18-51Ppw [facility] Physician GroupComment on above:Performed By: #### CHC CBC, CMP #### [place] [address] USABilirubin [Mass/Vol]0.4 mg/dLNormal0.3-1.0[facility] Physician GroupComment on above:Performed By: #### CHC CBC, CMP #### [place] [address] USACalcium [Mass/Vol]9.2 mg/dLNormal8.6-10.3The [facility] Physician GroupComment on above:Performed By: #### CHC CBC, CMP #### [place] [address] USAChloride [Moles/Vol]105 mmol/SPxghsb55-931Vwg [facility] Physician GroupComment on above:Performed By: #### CHC CBC, CMP #### [facility] [address] [place] [address] USACO2 [Moles/Vol]22.2 mmol/DVleeok05.0-31.0[facility] Physician GroupComment on above:Performed By: #### CHC CBC, CMP #### [address] [place] [address] USACreatinine [Mass/Vol]1.04 mg/dLNormal0.60-1.20The [facility] Physician GroupComment on above:Performed By: #### HEATHER CBC, CMP #### [facility] [address] [place] [address] USAGFR/1.73 sq M.predicted MDRD (S/P/Bld) [Vol rate/Area] mL/min/{1.73_m2}NormalThe [facility] Physician GroupComment on above:Performed By: #### HEATHER CBC, CMP #### [facility] [address] [place] [address] USAGlobulin (S) [Mass/Vol]2.6 g/dLNormalThe [facility] Physician GroupComment on above:Performed By: #### HEATHER CBC, CMP #### [place] [address] USAGlucose [Mass/Vol]68 mg/qAZkf87-239Kqj [facility] Physician GroupComment on above:Result Comment: Random Glucose Reference Range is dependent on time and content of last meal. Glucose of more than 200 mg/dL in a nonstressed, ambulatory subject supports the diagnosis of Diabetes Mellitus. ADA recommended reference rangePerformed By: #### HEATHER CBC, CMP #### [place] [address] USAPotassium [Moles/Vol]3.4 mmol/LLow3.5-5.1The [facility] Physician GroupComment on above:Performed By: #### HEATHER CBC, CMP #### [place] [address] USAProtein [Mass/Vol]7.2 g/dLNormal6.4-8.9The [facility] Physician GroupComment on above:Performed By: #### HEATHER CBC, CMP #### [place] [address] USASodium [Moles/Vol]137 mmol/SUbbmiw820-221Fze [facility] Physician GroupComment on above:Performed By: #### HEATHER CBC, CMP #### [address] [address] USAUrea nitrogen [Mass/Vol]17 mg/dLNormal7[facility] Physician GroupComment on above:Performed By: #### CHC CBC, CMP #### [facility] [address] [place] [address] USACreatinine [Mass/volume] in Serum or PlasmaOrdered By: Florencio Guevara on 17-08-0469Qwkanjlmdo [Mass/Vol]Creatinine [Mass/volume] in Serum or Plasma0.60-1.20[facility] CenterECG 12 lead ECGon 73-57-9340ZCW 12 lead ECGOHIOHEALTH Main Price [address] [place] [address] Electrocardiograph Report Signed Patient: Karolina Nicole MR#: [id number] : 1985 Acct:[id number] Age/Sex: 38 / F ADM Date: 05/23/24 Loc: [place] Room: Type: [facility] Attending Dr: Florencio Guevara Jr, DO [...] change was found Confirmed by ANDRES OAKLEY [facility] ([id number]) on 05/23/2024 7:33:51 PM Referred By: Electronically Signed By: LEANDRO CAMPOS MD [facility] Transcribed By: MUS Signed By Leandro Campos MD, [facility] 05/23/241932[facility] Physician GroupEosinophils Auto (Bld) [#/Vol] Ordered By: Florencio Guevara on 10-64-1169Uwtpgdjbngb (Bld) [#/Vol]Automated eosinophil count0.0-0.45[facility] CenterEosinophils/100 WBC Auto (Bld)Ordered By: Florencio Guevara on 00-35-9040Vegcgeomwzb/100 WBC (Bld) Automated eosinophil %.[facility] CenterErythrocyte distribution width Auto (RBC) [Ratio]Ordered By: Florencio Guevara on 86-50-4492Fhfwhnibwdi distribution width (RBC) [Ratio]Erythrocyte distribution width [Ratio] by Automated count11.9-15.3FTrinity Health System Twin City Medical CenterGlobulin Calc (S) [Mass/Vol]Ordered By: Florencio Guevara on 73-46-2089Cwuorlfo (S) [Mass/Vol]Serum globulin measurement by calculation (mass/volume)[facility] CenterGlucose [Mass/volume] in Serum or PlasmaOrdered By: Florencio Guevara on 55-25-8491Ghgjqre [Mass/Vol]Glucose [Mass/volume] in Serum or KqwudrAbh13-266 [facility] CenterComment on above:ADA recommended reference rangeRandom Glucose Reference Range is dependent on time and content of last meal. Glucose of more than 200 mg/dL in a nonstressed, ambulatory subject supports the diagnosisof Diabetes Mellitus.Hematocrit Auto (Bld) [Volume fraction]Ordered By: Florencio Guevara on 52-92-9309Ineqlsucwo (Bld) [Volume fraction]Hematocrit [Volume Fraction] of Blood by Automated count34.0-46.4 [facility] CenterHemoglobin [Mass/volume] in BloodOrdered By: Florencio Guevara on 47-98-1355Bkejqdftej (Bld) [Mass/Vol]Hemoglobin [Mass/volume] in Blood11.8-15.4FTrinity Health System Twin City Medical CenterLeukocytes [#/volume] corrected for nucleated erythrocytes in Blood by Automated counOrdered By: Florencio Guevara on 84-91-9773RIY corrected for nucl RBC Auto (Bld) [#/Vol] Leukocytes [#/volume] corrected for nucleated erythrocytes in Blood by Automated coun3.8-11.6FTrinity Health System Twin City Medical CenterLymphocytes Auto (Bld) [#/Vol] Ordered By: Florencio Guevara on 62-54-9502Srsbcpxisct (Bld) [#/Vol]Lymphocytes [#/volume] in Blood by Automated count1.00-4.8[facility] Lymphocytes/100 WBC Auto (Bld)Ordered By: Florencio Guevara on 05-23-2024 Lymphocytes/100 WBC (Bld)Lymphocytes/100 leukocytes in Blood by Automated count. [facility] CenterMCH Auto (RBC) [Entitic mass]Ordered By: Florencio Guevara on 09-27-9567WNV (RBC) [Entitic mass]MCH [Entitic mass] by Automated count24.7-34.3FTrinity Health System Twin City Medical CenterMCHC Auto (RBC) [Mass/Vol]Ordered By: Florencio Guevara on 61-63-9932UKHQ (RBC) [Mass/Vol]MCHC [Mass/volume] by Automated count32.0-35.0[facility] CenterMCV Auto (RBC) [Entitic vol]Ordered By: Florencio Guevara on 84-85-5057EWM (RBC) [Entitic vol]MCV [Entitic volume] by Automated ldanp72-179BiinuzvqlSouthview Medical CenterMonocytes Auto (Bld) [#/Vol]Ordered By: Florencio Guevara on 41-50-3320Qjamqxgfr (Bld) [#/Vol] Automated blood monocyte count0.0-0.8[facility] Monocytes/100 WBC Auto (Bld)Ordered By: Florencio Guevara on 01-15-1292Gablpolxr/100 WBC (Bld)Automated monocyte %.[facility] Medical CenterNeutrophils Auto (Bld) [#/Vol]Ordered By: Florencio Guevara on 05-95-5762Bebjezhfzlq (Bld) [#/Vol] Neutrophils [#/volume] in Blood by Automated count1.8-7.7FTrinity Health System Twin City Medical CenterNeutrophils/100 WBC Auto (Bld)Ordered By: Florencio Guevara on 26-97-1622Pvykxnqdbmz/100 WBC (Bld)Automated neutrophil %.[facility] CenterNo Panel InformationOrdered By: Florencio Guevara on 05-23-2024 Estimated GFR (CKD-EPI)> 60.0 mL/MinSouthview Medical CenterPharmacy Creatinine Clearance (ChemN/AFTrinity Health System Twin City Medical CenterNucleated erythrocytes [Presence] in Blood by Automated countOrdered By: Florencio Guevara on 29-86-4029Omjjlrilm RBC Auto Ql (Bld)Nucleated erythrocytes [Presence] in Blood by Automated count0-0.5FTrinity Health System Twin City Medical CenterPlatelet mean volume Auto (Bld) [Entitic vol]Ordered By: Florencio Guevara on 00-86-0993Bsifklfz mean volume (Bld) [Entitic vol]Platelet mean volume [Entitic volume] in Blood by Automated count6.3-10.7FTrinity Health System Twin City Medical CenterPlatelets Auto (Bld) [#/Vol]Ordered By: Florencio Guevara on 89-74-4633Dcnbhdnus (Bld) [#/Vol]Platelets [#/volume] in Blood by Automated jipjt204-508KxpuroyhgSouthview Medical Center Potassium [Moles/volume] in Serum or PlasmaOrdered By: Florencio Guevara on 74-83-8226Vajovqvzb [Moles/Vol]Potassium [Moles/volume] in Serum or PlasmaLow 3.5-5.1FTrinity Health System Twin City Medical CenterProtein [Mass/volume] in Serum or Plasma Ordered By: Florencio Guevara on 07-51-1091Iqedpjr [Mass/Vol]Protein [Mass/volume] in Serum or Plasma6.4-8.9[facility] CenterRBC Auto (Bld) [#/Vol] Ordered By: Florencio Guevara on 00-04-6100OVY (Bld) [#/Vol]Erythrocytes [#/volume] in Blood by Automated count3.60-5.00[facility]iffin Hospitalerum or plasma albumin/globulin mass ratioOrdered By: Florencio Guevara on 05-23-2024 Albumin/Globulin [Mass ratio]Serum or plasma albumin/globulin mass ratio [facility] Hospitalerum or plasma anion gap determinationOrdered By: Florencio Guevara on 36-37-6270Uvotq gap [Moles/Vol]Serum or plasma anion gap determination6.0-15.0[facility] Hospitalodium [Moles/volume] in Serum or PlasmaOrdered By: Florencio Guevara on 23-36-0268Jfnosp [Moles/Vol]Sodium [Moles/volume] in Serum or Curhdp701-389EpxzxsvlbSouthview Medical CenterUrea nitrogen [Mass/volume] in Serum or PlasmaOrdered By: Florencio Guevara on 05-23-2024 Urea nitrogen [Mass/Vol]Urea nitrogen [Mass/volume] in Serum or Plasma12-02 [facility] CenterWBC Auto (Bld) [#/Vol]Ordered By: Florencio Guevara on 03-34-5330DJD (Bld) [#/Vol]Leukocytes [#/volume] in Blood by Automated count 3.8-11.6FTrinity Health System Twin City Medical CenterX-ray reportOrdered By: Chance Beach on 21-48-4979Vtwid reportOHIOHEALTH Main [place] [id number] XRay Report Signed Patient: Karolina Nicole MR#: [id number] : 1985 Acct:[id number] Age/Sex: 38 / F ADM Date: 5 [...] CHEST. Impression dictated by: Chance Beach Jr., D.OClark05/23/2024 3:44 PM Dictation Location: [place] [address] Transcribed By: [facility] 05/23/24 1544 Dictated By: Chance Beach Jr, DO 05/23/24 1544 Signed By: 05/23/24 1544 [facility] CenterXR chest 1Von 85-14-7709AD chest [address] [address] XRay Report Signed Patient: Karolina Nicole MR#: [id number] : 1985 Acct:[id number] Age/Sex: 38 / F ADM Date: 05/23/24 Loc: [place] Room: Type: REG REF Attending Dr: Florencio Guevara Jr, DO Copies to: Florencio Guevara DO Ordering [...] CHEST. Impression dictated by: Chance Beach Jr., D.OClark05/23/2024 3:44 PM Dictation Location: [facility]-- Transcribed By: [facility] 05/23/24 1544 Dictated By: Chance Beach Jr, DO 05/23/24 1544 Signed By: 05/23/24 1544[facility] Physician GroupCNOVon 28-08-4817HAJCEqjpdi [facility] ClevelandBasophils Auto (Bld) [#/Vol]on 37-53-9760Prrcvvlsh (Bld) [#/Vol]Automated basophil count0.0-0.1FTrinity Health System Twin City Medical Center Basophils/100 WBC Auto (Bld)on 70-18-9616Ptsonqntv/100 WBC (Bld)Automated basophil %0.2-2.0[facility] CenterEosinophils/100 WBC Auto (Bld) on 15-85-1969Bqtvanqijkt/100 WBC (Bld)Automated eosinophil %0.9-7.0[facility] CenterErythrocyte distribution width Auto (RBC) [Ratio]on 05-30-8773Iitxnfidkdg distribution width (RBC) [Ratio]Erythrocyte distribution width [Ratio] by Automated count11.0-15.0[facility] Estimated glomerular filtration rate (GFR) non- Americanon 04-21-2024 GFR/1.73 sq M.predicted among non-blacks MDRD (S/P/Bld) [Vol rate/Area]Estimated glomerular filtration rate (GFR) non- AmericanLow>=60 mL/min/1.73m 2 [facility] CenterGlobulin Calc (S) [Mass/Vol]on 04-21-2024 Globulin (S) [Mass/Vol]Serum globulin measurement by calculation (mass/volume) [facility] CenterHematocrit Auto (Bld) [Volume fraction]on 74-60-8911Hmysqsnzml (Bld) [Volume fraction]Hematocrit [Volume Fraction] of Blood by Automated count36.0-48.0[facility] CenterHemoglobin [Mass/volume] in Bloodon 89-83-3339Kcsqegqkqd (Bld) [Mass/Vol]Hemoglobin [Mass/volume] in Blood12.0-16.0[facility] CenterLaboratory - Chemistry and Chemistry - challengeon 24-89-7596Hriafdi [Mass/Vol]3.7 g/dL 3.4-5.0[facility] CenterALP [Catalytic activity/Vol]65 U/L46-116 [facility] CenterALT [Catalytic activity/Vol]28 U/L14-59 [facility] CenterAST [Catalytic activity/Vol]24 U/L15-37 [facility] CenterBilirubin [Mass/Vol]0.5 mg/dL0.2-1.0[facility] CenterCalcium [Mass/Vol]8.9 mg/dL8.5-10.1FTrinity Health System Twin City Medical CenterChloride [Moles/Vol]109 mmol/CNafd58-594MacahnnigSouthview Medical CenterCO2 [Moles/Vol]19.8 mmol/LLow21.0-32.0[facility] Creatinine [Mass/Vol]1.13 mg/dLHigh0.55-1.02[facility] GFR/1.73 sq M.predicted MDRD (S/P/Bld) [Vol rate/Area]mL/min/{1.73_m2}>=60 mL/min/1.73m 2FTrinity Health System Twin City Medical CenterGlucose [Mass/Vol]91 mg/qQ64-398 [facility] CenterPotassium [Moles/Vol]3.3 mmol/LLow3.5-5.1 [facility] CenterProtein [Mass/Vol]6.8 g/dL6.4-8.2[facility] CenterSodium [Moles/Vol]141 mmol/W802-822KkzgiukzjSouthview Medical CenterUrea nitrogen [Mass/Vol]13.0 mg/dL7.0-18.0[facility] CenterUrea nitrogen/Creatinine [Mass ratio]11.5 mg/mgSouthview Medical CenterLaboratory - Hematology and Cell countson 30-79-5487Zmbttzyg granulocytes/100 WBC (Bld)0.1 %0.0-0.5FTrinity Health System Twin City Medical Center Leukocytes [#/volume] corrected for nucleated erythrocytes in Blood by Automated counon 69-31-7308KEV corrected for nucl RBC Auto (Bld) [#/Vol]Leukocytes [#/volume] corrected for nucleated erythrocytes in Blood by Automated coun 4.0-11.0[facility] CenterLymphocytes Auto (Bld) [#/Vol]on 70-77-8551Uiwhyrildwn (Bld) [#/Vol]Lymphocytes [#/volume] in Blood by Automated count1.2-3.8[facility] CenterLymphocytes/100 WBC Auto (Bld)on 76-46-0912Kryhmfmfnul/100 WBC (Bld)Lymphocytes/100 leukocytes in Blood by Automated count20.5-60.0[facility] HospitalH Auto (RBC) [Entitic mass]on 05-03-3837TII (RBC) [Entitic mass]MCH [Entitic mass] by Automated count 26.7-34.0[facility] Medical CenterMCHC Auto (RBC) [Mass/Vol]on 70-77-2440XUBM (RBC) [Mass/Vol]MCHC [Mass/volume] by Automated countHigh 29.9-35.2FTrinity Health System Twin City Medical CenterMCV Auto (RBC) [Entitic vol]on 14-39-9846GFA (RBC) [Entitic vol]MCV [Entitic volume] by Automated count 81.0-99.0[facility] CenterMonocytes Auto (Bld) [#/Vol]on 54-80-5080Hmzqhnpnk (Bld) [#/Vol]Automated blood monocyte count0.3-0.8[facility] CenterMonocytes/100 WBC Auto (Bld)on 68-96-2763Esysashde/100 WBC (Bld)Automated monocyte %1.7-12.0[facility] Neutrophils Auto (Bld) [#/Vol]on 82-58-0835Nhpmoijywbs (Bld) [#/Vol]Neutrophils [#/volume] in Blood by Automated count1.4-6.5FTrinity Health System [facility] Medical Center Neutrophils/100 WBC Auto (Bld)on 99-83-9105Szdprofnozo/100 WBC (Bld)Automated neutrophil %43.0-75.0[facility] CenterNo Panel Informationon 95-48-1208Vlkltnmsnoe # (Auto)0.1 10 3/uL0.0-0.7FTrinity Health System Twin City Medical CenterImmature Granulocyte # (Auto)0.01 10 3/uL0.00-0.03[facility] CenterPlatelet mean volume Auto (Bld) [Entitic vol]on 13-47-6547Zsosdokn mean volume (Bld) [Entitic vol]Platelet mean volume [Entitic volume] in Blood by Automated countLow9.5-13.5FTrinity Health System Twin City Medical CenterPlatelets Auto (Bld) [#/Vol]on 92-90-5541Nnfmoybiu (Bld) [#/Vol]Platelets [#/volume] in Blood by Automated ocrdp691-841RqcwdohvzSouthview Medical CenterRBC Auto (Bld) [#/Vol]on 10-69-3700XPV (Bld) [#/Vol]Erythrocytes [#/volume] in Blood by Automated count Low4.20-5.40[facility] Hospitalerum or plasma albumin/globulin mass ratioon 90-59-8451Oihnirk/Globulin [Mass ratio]Serum or plasma albumin/globulin mass ratioMercy Health Tiffin Hospitalerum or plasma anion gap determinationon 67-33-6539Mifmf gap [Moles/Vol]Serum or plasma anion gap determinationSouthview Medical CenterOCT OPTIC NERVE CIRRUS OU (BOTH EYES)on 20-83-0446Dvkbsflyl ClinicRadiology Study observation (narrative) [facility] aminotransferase [Enzymatic activity/volume] in Serum or PlasmaOrdered By: Carissa Mejia on 32-88-0145AKK [Catalytic activity/Vol]18 U/L7-52[facility] CenterAlbumin [Mass/volume] in Serum or Plasma by Bromocresol green (BCG) dye binding methoOrdered By: Carissa Mejia on 78-57-8534Uleefnj BCG dye [Mass/Vol]4.2 g/dL3.5-5.7FTrinity Health System Twin City Medical CenterAlkaline phosphatase [Enzymatic activity/volume] in Serum or PlasmaOrdered By: Carissa Mejia on 57-42-8909SBR [Catalytic activity/Vol]60 U/L34-104 [facility] CenterAspartate aminotransferase [Enzymatic activity/volume] in Serum or PlasmaOrdered By: Carissa Mejia on 20-47-1094TKY [Catalytic activity/Vol]24 U/N22-89VlqyyisthSouthview Medical CenterBasophils Auto (Bld) [#/Vol]Ordered By: Carissa Mejia on 46-42-1345Zbigamnre (Bld) [#/Vol]0.1 10*3/uL0.0-0.2FTrinity Health System Twin City Medical CenterBasophils/100 WBC Auto (Bld)Ordered By: Carissa Mejia on 10-09-8503Plqyuokox/100 WBC (Bld)0.9 %. [facility] CenterBilirubin Test strip Ql (U)Ordered By: Carissa Mejia on 21-38-7518Xfooktcvl Ql (U)NegativeNegativeSouthview Medical CenterBilirubin.total [Mass/volume] in Serum or PlasmaOrdered By: Carissa Mejia 55-41-5425Lvovtqatb [Mass/Vol]0.4 mg/dL0.3-1.0[facility] CenterCalcium [Mass/volume] in Serum or PlasmaOrdered By: Carissa Mejia 35-17-1032Vzhowhw [Mass/Vol]9.3 mg/dL8.6-10.3FTrinity Health System Twin City Medical CenterCarbon dioxide, total [Moles/volume] in Serum or PlasmaOrdered By: Carissa Mejia on 75-92-3213IG0 [Moles/Vol]23.1 mmol/L21.0-31.0[facility] CenterChloride [Moles/volume] in Serum or PlasmaOrdered By: Carissa Mejia on 73-38-4597Fjwdriug [Moles/Vol]109 mmol/HThah58-288FnshsrdrwSouthview Medical CenterColor Auto (U)Ordered By: Carissa Mejia on 10-04-2023 Color (U)YellowYellowSouthview Medical CenterCreatinine [Mass/volume] in Serum or PlasmaOrdered By: Carissa Mejia on 15-49-9263Gdldyyodts [Mass/Vol] 0.93 mg/dL0.60-1.20[facility] CenterEosinophils Auto (Bld) [#/Vol]Ordered By: Carissa Mejia on 53-61-8773Cvkzdkbnprp (Bld) [#/Vol]0.2 10*3/uL0.0-0.45[facility] CenterEosinophils/100 WBC Auto (Bld) Ordered By: Carissa Mejia on 05-53-0124Kftewcbaldo/100 WBC (Bld)3.0 %. [facility] CenterErythrocyte distribution width Auto (RBC) [Ratio]Ordered By: Carissa Mejia on 55-37-3990Duuovuqebyb distribution width (RBC) [Ratio]13.1 %11.9-15.3FTrinity Health System Twin City Medical CenterGlobulin Calc (S) [Mass/Vol]Ordered By: Carissa Mejia on 50-08-4532Yitgcwgz (S) [Mass/Vol]2.6 g/dLSouthview Medical CenterGlucose [Mass/volume] in Serum or Plasma Ordered By: Carissa Mejia on 27-97-3781Jfaihlw [Mass/Vol]89 mg/uQ80-259 [facility] CenterComment on above:ADA recommended reference rangeRandom Glucose Reference Range is dependent on time and content of last meal. Glucose of more than 200 mg/dL in a nonstressed, ambulatory subject supports the diagnosisof Diabetes Mellitus.Hematocrit Auto (Bld) [Volume fraction]Ordered By: Carissa Mejia on 07-58-8704Whslgzdtdg (Bld) [Volume fraction]37.8 %34.0-46.4FTrinity Health System Twin City Medical CenterHemoglobin [Mass/volume] in BloodOrdered By: Carissa Mejia on 13-39-7319Etsnqkakeu (Bld) [Mass/Vol]13.3 g/dL11.8-15.4FTrinity Health System Twin City Medical CenterKetones Auto test strip (U) [Mass/Vol]Ordered By: Carissa Mejia on 12-04-6121Vrvvqqb (U) [Mass/Vol]NegativeNegativeSouthview Medical CenterLeukocytes [#/volume] corrected for nucleated erythrocytes in Blood by Automated counOrdered By: Carissa Mejia on 61-89-1920JGI corrected for nucl RBC Auto (Bld) [#/Vol]7.7 10*3/uL3.8-11.6FTrinity Health System Twin City Medical CenterLipase [Enzymatic activity/volume] in Serum or PlasmaOrdered By: Carissa Mejia on 10-04-2023 Lipase [Catalytic activity/Vol]49.0 U/L11.0-82.0[facility] CenterLymphocytes Auto (Bld) [#/Vol]Ordered By: Carissa Mejia on 10-04-2023 Lymphocytes (Bld) [#/Vol]3.9 10*3/uL1.00-4.8[facility] Lymphocytes/100 WBC Auto (Bld)Ordered By: Carissa Mejia on 10-04-2023 Lymphocytes/100 WBC (Bld)48.5 %.[facility] Auto (RBC) [Entitic mass]Ordered By: Carissa Mejia on 17-49-1101KGH (RBC) [Entitic mass] 31.8 pg24.7-34.3FTrinity Health System Twin City Medical CenterMCHC Auto (RBC) [Mass/Vol] Ordered By: Carissa Mejia on 68-92-5473VVDQ (RBC) [Mass/Vol]35.1 g/dLHigh 32.0-35.0[facility] CenterMCV Auto (RBC) [Entitic vol]Ordered By: Carissa Mejia on 37-14-6814XIU (RBC) [Entitic vol]90.6 cO47-108NxixnfitgSouthview Medical CenterMonocyte distribution width [Entitic volume] in Blood by AutomatedOrdered By: Carissa Mejia on 06-85-0755Byfrldhz distribution width Auto (Bld) [Entitic vol]19.81 %0.00-20.00[facility] Monocytes Auto (Bld) [#/Vol]Ordered By: Carissa Mejia on 86-03-1183Wlhyioxps (Bld) [#/Vol]0.4 10*3/uL0.0-0.8[facility] CenterMonocytes/100 WBC Auto (Bld)Ordered By: Carissa Mejia on 96-88-6068Vturlawde/100 WBC (Bld) 5.3 %.[facility] Medical CenterNeutrophils Auto (Bld) [#/Vol]Ordered By: Carissa Mejia on 95-15-2750Jdfgqfyrrrk (Bld) [#/Vol]3.4 10*3/uL1.8-7.7 [facility] CenterNeutrophils/100 WBC Auto (Bld)Ordered By: Carissa Mejia on 04-57-3576Rfmikxsrwwp/100 WBC (Bld)42.3 %.[facility] CenterNitrite Test strip Ql (U)Ordered By: Carissa Mejia on 10-04-2023 Nitrite Ql (U)NegativeNegativeSouthview Medical CenterNo Panel InformationOrdered By: Carissa Mejia on 86-88-5789Fvuokbbme GFR (CKD-EPI)> 60.0 mL/MinSouthview Medical CenterPharmacy Creatinine Clearance (Chem 83.18FTrinity Health System Twin City Medical CenterNucleated erythrocytes [Presence] in Blood by Automated countOrdered By: Carissa Mejia on 40-47-0043Zknndbfbr RBC Auto Ql (Bld)0.2 /100{WBC}0-0.5FTrinity Health System Twin City Medical CenterPlatelet mean volume Auto (Bld) [Entitic vol]Ordered By: Carissa Mejia on 13-64-0816Kohiofxq mean volume (Bld) [Entitic vol]8.6 fL6.3-10.7FTrinity Health System Twin City Medical Center Platelets Auto (Bld) [#/Vol]Ordered By: Carissa Mejia on 81-48-6739Jilnreeij (Bld) [#/Vol]288 10*3/qD752-700OtydlnyjxSouthview Medical CenterPotassium [Moles/volume] in Serum or PlasmaOrdered By: Carissa Mejia on 10-04-2023 Potassium [Moles/Vol]3.8 mmol/L3.5-5.1FTrinity Health System Twin City Medical CenterProtein Auto test strip (U) [Mass/Vol]Ordered By: Carissa Mejia on [id number] (U) [Mass/Vol]NegativeNegativeSouthview Medical CenterProtein [Mass/volume] in Serum or PlasmaOrdered By: Carissa Mejia on 42-40-4066Damxcpc [Mass/Vol]6.8 g/dL6.4-8.9Southview Medical CenterRBC Auto (Bld) [#/Vol]Ordered By: Carissa Mejia on 30-66-4601OCF (Bld) [#/Vol]4.17 10*6/uL 3.60-5.00[facility] Tiffin Hospitalerum or plasma albumin/globulin mass ratioOrdered By: Carissa Mejia on 69-27-6652Rykkfjp/Globulin [Mass ratio]1.6 {ratio}[facility]in Hospitalerum or plasma anion gap determination Ordered By: Carissa Mejia on 27-72-6283Rxlhp gap [Moles/Vol]10.7 mmol/L 6.0-15.0[facility] Hospitalodium [Moles/volume] in Serum or PlasmaOrdered By: Carissa Mejia on 11-80-8909Ehwkha [Moles/Vol]139 mmol/L 136-145[facility] Hospitalpecific gravity Auto test strip (U) [Rel density]Ordered By: Carissa Mejia on 52-69-5177Kgloijpf gravity (U) [Rel density]1.0101.001-1.030[facility] CenterUrea nitrogen [Mass/volume] in Serum or PlasmaOrdered By: Carissa Mejia 00-44-9586Wixr nitrogen [Mass/Vol]10 mg/dL7-25[facility] CenterUrine clarity by refractometry automatedOrdered By: Carissa Mejia on 88-69-2362Ytgawov Refractometry automated (U)ClearClearFTrinity Health System Twin City Medical CenterUrine glucose measurement by automated test strip (mass/volume)Ordered By: Carissa Mejia on 47-04-7819Qmsnkzl Auto test strip (U) [Mass/Vol]Normal mg/dLNoProMedica Memorial HospitalUrine hemoglobin detection by automated test stripOrdered By: Carissa Mejia on 60-74-3696Ofghujpyxu Auto test strip Ql (U) NegativeNegSycamore Medical CenterUrine leukocyte esterase detection by automated test stripOrdered By: Carissa Mejia on 10-04-2023 Leukocyte esterase Auto test strip Ql (U)NegativeNegSycamore Medical CenterUrobilinogen Auto test strip (U) [Mass/Vol]Ordered By: Carissa Mejia on 12-10-6764Wlouzywnutbj (U) [Mass/Vol]Normal mg/dLNoMercy Health – The Jewish HospitalWBC Auto (Bld) [#/Vol]Ordered By: Carissa Mejia on 60-45-8115PNE (Bld) [#/Vol]7.7 10*3/uL3.8-11.6FTrinity Health System Twin City Medical Center pH Auto test strip (U)Ordered By: Carissa Mejia on 18-62-5942oI (U)7.0 [pH] 5.0-9.0[facility] CenterC-REACTIVE PROTEINon 29-78-7348ATP [Mass/Vol]mg/dLNINF - 0.9 mg/dLMercy Health – The Jewish HospitalC3 COMPLEMENTon 09-29-2023 Complement C3 [Mass/Vol]137 mg/dL86 - 166 mg/dLMercy Health – The Jewish HospitalC4 COMPLEMENTon 65-26-2199Wjvumspuvg C4 [Mass/Vol]23 mg/dL13 - 46 mg/dLProtestant Hospital W Auto Differential panel (Bld)on 24-64-4738Yeyqthwdn (Bld) [#/Vol]0.03 10*3/uL NINFCleveland ClinicBasophils/100 WBC (Bld)0.4 %[facility] HospitalDifferential cell count method Nom (Bld)AutoCleveland ClinicEosinophils (Bld) [#/Vol]0.18 10*3/uLNINFCleTriHealthEosinophils/100 WBC (Bld)2.4 %[facility] Erythrocyte distribution width (RBC) [Ratio]12.5 %11.5 - 15.0 %[facility] Hematocrit (Bld) [Volume fraction]38.4 %36.0 - 46.0 %[facility] HospitalHemoglobin (Bld) [Mass/Vol]13.4 g/dL11.5 - 15.5 g/dLMercy Health – The Jewish HospitalImmature granulocytes (Bld) [#/Vol]NINFCMercy Health St. Elizabeth Boardman HospitalImmature granulocytes/100 WBC (Bld)0.1 % [facility] HospitalLymphocytes (Bld) [#/Vol]3.08 10*3/uLMercy Health – The Jewish Hospital Lymphocytes/100 WBC (Bld)41.5 %UK HealthcareH (RBC) [Entitic mass]31.2 pg 26.0 - 34.0 pgClevelSt. Gabriel HospitalHC (RBC) [Mass/Vol]34.9 g/dL30.5 - 36.0 g/dL UK HealthcareV (RBC) [Entitic vol]89.5 fL80.0 - 100.[address] [facility] Monocytes (Bld) [#/Vol]0.39 10*3/NINFMercy Health – The Jewish HospitalMonocytes/100 WBC (Bld) 5.2 %[facility] HospitalNeutrophils (Bld) [#/Vol]3.74 10*3/[facility] Neutrophils/100 WBC (Bld)50.4 %[facility] HospitalNucleated RBC (Bld) [#/Vol]NINF [facility] HospitalNucleated RBC/100 WBC (Bld) [Ratio]0.0 %/100 WBCMercy Health – The Jewish Hospital Platelet mean volume (Bld) [Entitic vol]9.9 fL9.0 - 12.[address] [facility] Platelets (Bld) [#/Vol]316 10*3/uLMercy Health – The Jewish HospitalRBC (Bld) [#/Vol]4.29 10*6/uL 3.90 - 5.20 m/[facility] HospitalWBC (Bld) [#/Vol]7.43 10*3/[facility] HospitalCREATINE KINASE/CKon 34-52-4096VI [Catalytic activity/Vol]116 U/L42 - 196 U/LCMercy Health St. Elizabeth Boardman HospitalComprehensive metabolic 2000 panelon 09-29-2023 Albumin [Mass/Vol]4.4 g/dL3.9 - 4.9 g/dLCleveland ClinicALP [Catalytic activity/Vol]65 U/L34 - 123 U/LCleveland ClinicALT [Catalytic activity/Vol]22 U/L7 - 38 U/LCleveland ClinicAnion gap [Moles/Vol]12 mmol/L9 - 18 mmol/L [facility] ClinicAST [Catalytic activity/Vol]31 U/L13 - 35 U/LCleveland [facility] Bilirubin [Mass/Vol]0.4 mg/dL0.2 - 1.3 mg/dLFresno ClinicCalcium [Mass/Vol] 9.6 mg/dL8.5 - 10.2 mg/dLFresno ClinicChloride [Moles/Vol]104 mmol/L97 - 105 mmol/LCleveland ClinicCO2 [Moles/Vol]24 mmol/L22 - 30 mmol/LCleveland Clinic Creatinine [Mass/Vol]0.91 mg/dL0.58 - 0.96 mg/dLFresno ClinicGFR/1.73 sq M.predicted among non-blacks MDRD (S/P/Bld) [Vol rate/Area]83 mL/min/{1.73_m2}- PINFCleveland ClinicComment on above:Estimated Glomerular Filtration Rate (eGFR) is calculated using the 2020 CKD-EPI creatinine equation. This equation utilizes serum creatinine, sex, and age as parameters. The creatinine assay has traceable calibration to isotope dilution-mass spectrometry. Refer to KDIGO guidelines for clinical interpretation. In patients with unstable renal function, e.g. those with acute kidney injury, the eGFRmay not accurately reflect actual GFR.Glucose [Mass/Vol]94 mg/dL74 - 99 mg/dLMercy Health – The Jewish HospitalComment on above:The [place] Diabetes Association (ADA) provides guidance for cutoff [...] Standards of Medical Care in Diabetes 2016, [place] [employer]. Diabetes Care. 2016.39(Suppl 1). Potassium [Moles/Vol]4.0 mmol/L3.7 - 5.1 mmol/LCleveland ClinicProtein [Mass/Vol]6.5 g/dL6.3 - 8.0 g/dLFresno ClinicSodium [Moles/Vol]140 mmol/L136 - 144 mmol/LCleveland ClinicUrea nitrogen [Mass/Vol]12 mg/dL7 - 21 mg/dL [facility] Westergren method (Bld) [Velocity]on 03-94-4188QNV (Bld) [Velocity]9 mm/hCleveland ClinicInterpretation and review of laboratory results NormalAdena Regional Medical CenterNo Panel Informationon 09-29-2023 Interpretation and review of laboratory resultsNormalCfirelands regional medical centerand [facility] ClinicInterpretation and review of laboratory resultsNormalCAvita Health System Bucyrus HospitalPROTEIN / CREATININE RATIOon 68-78-8015Mqrmtqd/Creatinine (U) [Mass ratio]0.18 mg/mgHighNINF - 0.15 mg/mgMercy Health – The Jewish HospitalComment on above: Adult Proteinuria Categories: <0.15 mg/mg is considered normal to mildly increased 0.15 - 0.50 mg/mg is considered moderately increased >0.50 mg/mg is considered severely increased KDIGO. (2013). KDIGO 2012 Clinical Practice Guideline for the Evaluation and Management of Chronic Kidney Disease. Official Journal of the International Society of Nephrology, 3(1), 1-150. Protein/Creatinine (U) [Mass ratio]on 63-71-6806Favahafrmq (U) [Mass/Vol]38.3 mg/dL20.0 - 300.0 mg/dLMercy Health – The Jewish HospitalInterpretation and review of laboratory resultsAbnormalCleveland ClinicProtein (U) [Mass/Vol]7 mg/dL0 - 20 mg/dL [facility] CenterRHEUMATOID FACTORon 28-82-1119Nvmwoujswx factor QnNINFClechildren's hospital for rehabilitation ClinicUrinalysis complete panel (U)on 64-85-1534Zvijjmus LM.HPF (Urine sed) [#/Area]NegativeNegative /HPFFresno ClinicBilirubin Ql (U) NegativeNegativeFresno ClinicClarity (Unsp spec)ClearClearCleveland Clinic Color (U)YellowYellowCleTriHealthEpithelial cells LM.HPF (Urine sed) [#/Area]None Seen/HPFMercy Health – The Jewish HospitalGlucose Test strip (U) [Mass/Vol]Negative NegativeMercy Health – The Jewish HospitalHemoglobin Ql (U)NegativeNegativeMercy Health – The Jewish HospitalHyaline casts (Urine sed) [#/Area]0 /[LPF]0 /LPFCleveland ClinicKetones Ql (U)Negative NegativeMercy Health – The Jewish HospitalLeukocyte esterase Test strip Ql (U)NegativeNegative [facility] HospitalNitrite Ql (U)NegativeNegativeFresno ClinicpH (U)6.0 [pH]NINF - 8.5Cleveland ClinicProtein (U) [Mass/Vol]NegativeNegativeMercy Health – The Jewish HospitalRBC LM.HPF (Urine sed) [#/Area]0-2 /HPF0-2 /HPFChildren's Hospital for Rehabilitationpecific gravity (U) [Rel density]1.0071.005 - 1.030[facility] HospitalUrobilinogen Ql (U)0.2 EU/dL0.2- 1.0 EU/dLMercy Health – The Jewish HospitalWBC LM.HPF (Urine sed) [#/Area]0-5 /HPF0-5 /HPF [facility] HospitalThis test was developed and its performance characteristics determined by [facility]'s [facility] Pathology [facility] Laboratory [facility] [place] ([facility]ITALPLMD). It has not been cleared or approved by the FDA. [facility] is regulated under CLIA as qualified to perform high-complexity testing. Thistest is used for clinical purposes. It should not be regarded as investigational or for research. [facility] CenterXR Sacroiliac Joint Viewson 09-29-2023 IMPRESSION: 1. No acute osseous abnormality. 2. No erosions or evidence for inflammatory arthropathy. 3. L5-S1 spondylosis. Music Orchestrator: PSCB Transcribe Date/Time: Sep 29 2023 4:06P Dictated by : VANESSA JOSEPH MD This examination was interpreted and the report reviewed and electronically signed by: VANESSA JOSEPH MD on Sep 29 2023 4:08PM [facility] DIVISION OF RADIOLOGY* * *Final Report* * * DATE OF [...] clip overlying the right ilium. DIVISION OF RADIOLOGYProvider, [facility] [place] - 09/29/2023 * * *Final Report* * [...] evidence for inflammatory arthropathy. 3. L5-S1 spondylosis. Music Orchestrator: ANA Transcribe Date/Time: Sep 29 2023 4:06P Dictated by : VANESSA JOSEPH MD This examination was interpreted and the report reviewed and electronically signed by: VANESSA JOSEPH MD on Sep 29 2023 4:08PM [facility] HospitalRadiology Study observation (narrative)[facility] HospitalXR Sacroiliac Joint ViewsOrdered By: [facility] Provider on 19-14-6570Kyarhgtwt Clinic Activated partial thromboplastin time (aPTT) in platelet poor plasma by coagulation aOrdered By: Curt Novoa on 63-58-5437jEWB Coag (PPP) [Time]30.7 s 25.1-36.5FTrinity Health System Twin City Medical CenterComment on above:A hematocrit value greater than 55% may lead to inaccurate results in coagulation testing. Patients having hematocrit values >55% require a special collection tube for coagulation studies. Please contact the laboratory at [phone] for redraw instructions. Alanine aminotransferase [Enzymatic activity/volume] in Serum or PlasmaOrdered By: Eli Bullimore on 11-39-6723ACK [Catalytic activity/Vol]37 U/L7-52 [facility] CenterAlbumin [Mass/volume] in Serum or Plasma by Bromocresol green (BCG) dye binding methoOrdered By: Eli Bullimore on 96-24-6424Jthflbt BCG dye [Mass/Vol]4.2 g/dL3.5-5.7FTrinity Health System Twin City Medical CenterAlkaline phosphatase [Enzymatic activity/volume] in Serum or PlasmaOrdered By: Eli Bullimore on 78-15-0142PKV [Catalytic activity/Vol]79 U/L34-104 [facility] CenterAspartate aminotransferase [Enzymatic activity/volume] in Serum or PlasmaOrdered By: Eli Bullimore on 19-99-6907XQX [Catalytic activity/Vol]32 U/R78-76WcanbscdzSouthview Medical CenterBasophils Auto (Bld) [#/Vol]Ordered By: Eli Bullimore on 32-28-4645Edksjzwem (Bld) [#/Vol]0.0 10*3/uL0.0-0.2FTrinity Health System Twin City Medical CenterBasophils/100 WBC Auto (Bld)Ordered By: Eli Bullimore on 35-98-8527Tgznaiglt/100 WBC (Bld)0.5 %. [facility] CenterBilirubin Test strip Ql (U)Ordered By: Eli Bullimore on 83-88-6367Ilfkywahv Ql (U)NegativeNegativeSouthview Medical CenterBilirubin.total [Mass/volume] in Serum or PlasmaOrdered By: Eli Bullimore on 35-77-8679Mplggsrtq [Mass/Vol]0.4 mg/dL0.3-1.0[facility] CenterC reactive protein [Mass/volume] in Serum or PlasmaOrdered By: Eli Bullimore on 05-66-3759KQW [Mass/Vol]7.6 mg/dL0.0-0.5FTrinity Health System Twin City Medical CenterCalcium [Mass/volume] in Serum or PlasmaOrdered By: Eli Bullimore on 43-36-9053Vhyeceu [Mass/Vol]9.5 mg/dL8.6-10.3FTrinity Health System Twin City Medical CenterCarbon dioxide, total [Moles/volume] in Serum or PlasmaOrdered By: Eli Bullimore on 73-62-5501PP8 [Moles/Vol]25.6 mmol/L21.0-31.0[facility] CenterCerebrospinal fluid appearance descriptionOrdered By: Curt Novoa on 53-41-0407Whywnhigea (CSF)ClearClearFTrinity Health System Twin City Medical CenterCerebrospinal fluid post-centrifugation appearance determinationOrdered By: Curt Novoa on 45-92-2985Uedoibjqmc (Spun CSF)ColorlessColorSelect Medical Specialty Hospital - Southeast OhioCerebrospinal fluid sample tube volume measurementOrdered By: Curt Novoa on 15-12-3853Vjwwkxjs volume (CSF)25.5 mLSouthview Medical CenterChloride [Moles/volume] in Serum or PlasmaOrdered By: Eli Bullimore on 93-15-9574Zplgylxt [Moles/Vol]107 mmol/W14-888JfjusmtatSouthview Medical CenterColor Auto (U)Ordered By: Eli Bullimore on 46-49-3124Bpqqq (U) YellowYellowSouthview Medical CenterColor CSFOrdered By: Curt Novoa on 56-12-5628Vrrok (CSF)ColorlessColorSelect Medical Specialty Hospital - Southeast Ohio Creatinine [Mass/volume] in Serum or PlasmaOrdered By: Eli Bullimore on 08-91-2717Wtmkgbauyq [Mass/Vol]0.78 mg/dL0.60-1.20[facility] CenterEosinophils Auto (Bld) [#/Vol]Ordered By: Eli Bullimore on 08-25-2023 Eosinophils (Bld) [#/Vol]0.5 10*3/uL0.0-0.45[facility] Eosinophils/100 WBC Auto (Bld)Ordered By: Eil Bullimore on 08-25-2023 Eosinophils/100 WBC (Bld)7.0 %.[facility] Medical CenterErythrocyte distribution width Auto (RBC) [Ratio]Ordered By: Eli Antony on 08-25-2023 Erythrocyte distribution width (RBC) [Ratio]12.5 %11.9-15.3FTrinity Health System Twin City Medical CenterErythrocyte sedimentation rate by Photometric methodOrdered By: Eli Antony on 79-45-3551GHA Photometric method (Bld) [Velocity]30 mm/hr 0-19[facility] CenterGlobulin Calc (S) [Mass/Vol]Ordered By: Eli Antony on 50-70-9610Wojlxmdk (S) [Mass/Vol]2.9 g/dLSouthview Medical CenterGlucose [Mass/volume] in Cerebral spinal fluidOrdered By: Curt Novoa on 32-26-5666Ebmqwcd (CSF) [Mass/Vol]45 mg/vO39-26CdhmoordiSouthview Medical CenterGlucose [Mass/volume] in Serum or PlasmaOrdered By: Eli Antony on 15-72-5882Whfwraa [Mass/Vol]80 mg/kF30-747AkwgeexqoSouthview Medical CenterComment on above:ADA recommended reference rangeRandom Glucose Reference Range is dependent on time and content of last meal. Glucose of more than 200 mg/dL in a nonstressed, ambulatory subject supports the diagnosisof Diabetes Mellitus.Gram stain for investigation of transfusion reactionOrdered By: Curt Novoa on 09-14-1240Myhnzcdptei observation Gram stain Nom (Unsp spec) [facility] CenterMicroscopic observation Gram stain Nom (Unsp spec)No Anaerobes Isolated 3 DaysSouthview Medical CenterHematocrit Auto (Bld) [Volume fraction]Ordered By: Eli Antony on 58-21-3850Oeytkvnnwt (Bld) [Volume fraction]37.6 %34.0-46.4FTrinity Health System Twin City Medical Center Hemoglobin [Mass/volume] in BloodOrdered By: Eli Antony on 08-25-2023 Hemoglobin (Bld) [Mass/Vol]12.8 g/dL11.8-15.4FTrinity Health System Twin City Medical Center INR in Platelet poor plasma by Coagulation assayOrdered By: Curt Novoa on 12-72-9888AQG Coag (PPP) [Relative time]1.0 {INR}[facility] CenterComment on above:INR Therapeutic Range A) Pre- and Peroperative OAT started two weeks before surgery. NOT HIP SURGERY: 1.5 - 2.5 HIP SURGERY: 2 - 3B) Primary and secondary prevention of venous THROMBOSIS: 2 - 3C) Active venous thrombosis, pulmonary embolismand prevention of recurrent venous thrombosis: 2 - 3D) Prevention of arterial thromboembolismincluding patients with mechanical heart valves: 3 - 4.5Ketones Auto test strip (U) [Mass/Vol]Ordered By: Eli Antony on 59-08-0155Brksgvh (U) [Mass/Vol]TraceNegativeSouthview Medical CenterLactate [Moles/volume] in Serum or PlasmaOrdered By: Eli Antony on 28-80-8331Mprerwv [Moles/Vol]0.8 mmol/L0.5-2.2FTrinity Health System Twin City Medical CenterLeukocytes [#/volume] corrected for nucleated erythrocytes in Blood by Automated counOrdered By: Eli Antony on 78-68-0490PGC corrected for nucl RBC Auto (Bld) [#/Vol]6.5 10*3/uL3.8-11.6FTrinity Health System Twin City Medical CenterLymphocytes Auto (Bld) [#/Vol]Ordered By: Eli Antony on 08-25-2023 Lymphocytes (Bld) [#/Vol]2.8 10*3/uL1.00-4.8[facility] Lymphocytes/100 WBC Auto (Bld)Ordered By: Eli Antony on 08-25-2023 Lymphocytes/100 WBC (Bld)42.4 %.[facility] Auto (RBC) [Entitic mass]Ordered By: Eli Antony on 13-37-2967NIX (RBC) [Entitic mass] 30.5 pg24.7-34.3FMount St. Mary HospitalHC Auto (RBC) [Mass/Vol] Ordered By: Eli Castroore on 73-37-7655EGXZ (RBC) [Mass/Vol]34.0 g/dL 32.0-35.0[facility] Medical CenterMCV Auto (RBC) [Entitic vol]Ordered By: Eli Antony on 49-22-7935HWH (RBC) [Entitic vol]89.7 bJ60-846WaysrmnpfSouthview Medical CenterManual cerebrospinal fluid erythrocytes count (number/volume)Ordered By: Curt Novoa on 10-22-1196ZXC Manual cnt (CSF) [#/Vol] 2 /uLSouthview Medical CenterComment on above:The reference interval and other method performance specifications have not been established for this body fluid. The test result must be integrated into the clinical context for interpretation.Meningitis+Encephalitis pathogens DNA and RNA panel - Cerebral spinal fluid by KIRSTIN wiOrdered By: Curt Novoa on 08-25-2023 Meningitis+Encephalitis pathogens DNA and RNA panel KIRSTIN+non-probe (CSF)[facility] Medical CenterMonocyte distribution width [Entitic volume] in Blood by AutomatedOrdered By: Eli Antony on 12-53-7375Tgixorvq distribution width Auto (Bld) [Entitic vol]22.85 %0.00-20.00[facility] Comment on above:For adults in ED, MDW > 20.0 may be associated with a higher risk of sepsis during the first 12 hrs of hospital admissionMonocytes Auto (Bld) [#/Vol]Ordered By: Eli Antony on 27-70-8569Aljmwzgom (Bld) [#/Vol]0.4 10*3/uL0.0-0.8[facility] CenterMonocytes/100 WBC Auto (Bld) Ordered By: Eli Antony on 47-65-0781Uhfhldcgp/100 WBC (Bld)6.0 %.[facility] Medical CenterNeutrophils Auto (Bld) [#/Vol]Ordered By: Eli Antony on 20-07-3840Gdntymajdqz (Bld) [#/Vol]2.9 10*3/uL1.8-7.7FTrinity Health System Twin City Medical CenterNeutrophils/100 WBC Auto (Bld)Ordered By: Eli Antony on 44-31-2204Oswwojowzpw/100 WBC (Bld)44.1 %.[facility] Medical CenterNitrite Test strip Ql (U)Ordered By: Eli Antony on 16-40-6930Haqzhnt Ql (U)NegativeNegativeSouthview Medical CenterNo Panel InformationOrdered By: Curt Novoa on 54-31-3356LYI Pgpaxponbbl9NcinnmcwvSouthview Medical CenterComment on above:The reference interval and other method performance specifications have not been established for this body fluid. The test result must be integrated into the clinical context for interpretation.CSF Ofsuuoxnnac83KzyppcfvsSouthview Medical CenterComment on above:The reference interval and other method performance specifications have not been established for this body fluid. The test result must be integrated into the clinical context for interpretation.CSF Lrtwwitpl7SvlnjiemfSouthview Medical Center Comment on above:The reference interval and other method performance specifications have not been established for this body fluid. The test result must be integrated into the clinical context for interpretation.CSF Neutrophils0 [facility] CenterComment on above:The reference interval and other method performance specifications have not been established for this body fluid. The test result must be integrated into the clinical context for interpretation.CSF Tube NumberTube number: 1FTrinity Health System Twin City Medical CenterNo Panel InformationOrdered By: Eli Antony on 12-80-9987Kkvsgpcor GFR (CKD-EPI)> 60.0 mL/MinSouthview Medical CenterPharmacy Creatinine Clearance (Chem97.78[facility] CenterNucleated cells [#/volume] in Cerebral spinal fluid by Manual countOrdered By: Curt Novoa on 08-25-2023 Nucleated cells Manual cnt (CSF) [#/Vol]0.002 10*3/uL0-5FTrinity Health System Twin City Medical CenterNucleated erythrocytes [Presence] in Blood by Automated count Ordered By: Eli Antony on 64-82-3776Zjvdtjwfc RBC Auto Ql (Bld)0.1 /100{WBC}0-0.5FTrinity Health System Twin City Medical CenterPlatelet mean volume Auto (Bld) [Entitic vol]Ordered By: Eli Antony on 18-24-6490Ofmvioce mean volume (Bld) [Entitic vol]7.9 fL6.3-10.7FTrinity Health System Twin City Medical CenterPlatelets Auto (Bld) [#/Vol]Ordered By: Eli Antony on 68-99-8010Zeccnorkk (Bld) [#/Vol] 303 10*3/fJ826-554UlomhmltrSouthview Medical CenterPotassium [Moles/volume] in Serum or PlasmaOrdered By: Eli Antony on 00-88-4186Didwtjaza [Moles/Vol] 3.7 mmol/L3.5-5.1FTrinity Health System Twin City Medical CenterProtein Auto test strip (U) [Mass/Vol]Ordered By: Eli Antony on 47-83-5932Lgiljnc (U) [Mass/Vol] NegativeNegativeSouthview Medical CenterProtein [Mass/volume] in Cerebral spinal fluidOrdered By: Curt Novoa on 43-32-7498Abwuwuz (CSF) [Mass/Vol]44 mg/iQ14-94JsfebmaobSouthview Medical CenterProtein [Mass/volume] in Serum or PlasmaOrdered By: Eli Antony on 00-74-7076Fwmsqmd [Mass/Vol]7.1 g/dL6.4-8.9[facility] CenterProthrombin time (PT)Ordered By: Curt Novoa on 29-07-7506HH Coag (PPP) [Time]11.9 s9.0-12.9[facility] CenterComment on above:A hematocrit value greater than 55% may lead to inaccurate results in coagulation testing. Patientshaving hematocrit values >55% require a special collection tube for coagulation studies. Please contact the laboratory at [phone] for redraw instructions.RBC Auto (Bld) [#/Vol]Ordered By: Eli Antony on 88-47-9426YIK (Bld) [#/Vol]4.20 10*6/uL3.60-5.00 [facility] Hospitalerum or plasma albumin/globulin mass ratio Ordered By: Eli Antony on 76-83-7715Fmldopl/Globulin [Mass ratio]1.4 {ratio}[facility] Hospitalerum or plasma anion gap determination Ordered By: Eli Antony on 03-19-8366Vtpfi gap [Moles/Vol]10.1 mmol/L 6.0-15.0[facility] Hospitalodium [Moles/volume] in Serum or PlasmaOrdered By: Eli Antony on 44-72-8211Ywagwu [Moles/Vol]139 mmol/L 136-145Mer[facility] Hospitalpecific gravity Auto test strip (U) [Rel density]Ordered By: Eli Antony on 60-80-3464Ozimrsoc gravity (U) [Rel density]1.0061.001-1.030[facility] CenterUrea nitrogen [Mass/volume] in Serum or PlasmaOrdered By: Eli Antony on 47-32-1481Hwqx nitrogen [Mass/Vol]7 mg/dL7-25[facility] CenterUrine clarity by refractometry automatedOrdered By: Eli Antony on 60-87-0348Ucblzmg Refractometry automated (U)ClearCleSt. Charles HospitalUrine glucose measurement by automated test strip (mass/volume)Ordered By: Eli Antony on 48-70-5853Cqtawiz Auto test strip (U) [Mass/Vol]Normal mg/dLNoProMedica Memorial HospitalUrine hemoglobin detection by automated test stripOrdered By: Eli Antony on 09-24-8721Mpccwjxxje Auto test strip Ql (U) NegativeNegSycamore Medical CenterUrine leukocyte esterase detection by automated test stripOrdered By: Eli Antony on 08-25-2023 Leukocyte esterase Auto test strip Ql (U)NegativeNegSycamore Medical CenterUrobilinogen Auto test strip (U) [Mass/Vol]Ordered By: Eli Antony on 93-86-1352Kdrbyuvhbzio (U) [Mass/Vol]Normal mg/dLNoMercy Health – The Jewish HospitalWBC Auto (Bld) [#/Vol]Ordered By: Eli Antony on 67-18-7480RQY (Bld) [#/Vol]6.5 10*3/uL3.8-11.6FTrinity Health System Twin City Medical Center pH Auto test strip (U)Ordered By: Eli Antony on 17-76-7259uE (U)6.5 [pH] 5.0-9.0[facility] CenterActivated partial thromboplastin time (aPTT) in platelet poor plasma by coagulation aOrdered By: Curt Novoa on 11-18-8721mKRM Coag (PPP) [Time]28.4 s25.1-36.5FTrinity Health System Twin City Medical Center Comment on above:A hematocrit value greater than 55% may lead to inaccurate results in coagulation testing. Patientshaving hematocrit values >55% require a special collection tube for coagulation studies. Please contact the laboratory at [phone] for redraw instructions.Alanine aminotransferase [Enzymatic activity/volume] in Serum or PlasmaOrdered By: Curt Novoa on 29-81-8979LEY [Catalytic activity/Vol]26 U/L7-52[facility] CenterAlbumin [Mass/volume] in Serum or Plasma by Bromocresol green (BCG) dye binding metho Ordered By: Curt Novoa on 63-97-8719Dgseall BCG dye [Mass/Vol]4.2 g/dL3.5-5.7 [facility] Medical CenterAlkaline phosphatase [Enzymatic activity/volume] in Serum or PlasmaOrdered By: Curt Novoa on 38-01-2893OQS [Catalytic activity/Vol]72 U/E20-069QpfucxvnfSouthview Medical CenterAspartate aminotransferase [Enzymatic activity/volume] in Serum or PlasmaOrdered By: Curt Novoa on 51-80-8769GFC [Catalytic activity/Vol]32 U/Q95-55ThqdwrzghSouthview Medical CenterAutomated erythrocytes count in urine sediment (number/area) Ordered By: Curt Novoa on 93-68-0371PWE Auto (Urine sed) [#/Area]1-2 [HPF]0-4 [facility] CenterAutomated leukocytes count in urine sediment (number/area)Ordered By: Curt Novoa on 96-04-2287RSV Auto (Urine sed) [#/Area] 0-1 [HPF]0-4FTrinity Health System Twin City Medical CenterBacterial blood cultureOrdered By: Curt Novoa on 90-67-6574Iyxplthh identified Cx Nom (Bld)NO GROWTH 5 DAYS [facility] CenterBacteria identified Cx Nom (Bld)NO GROWTH 5 DAYSSouthview Medical CenterBasophils Auto (Bld) [#/Vol]Ordered By: Curt Novoa on 96-44-7791Jeuydpjgd (Bld) [#/Vol]0.0 10*3/uL0.0-0.2FTrinity Health System Twin City Medical CenterBasophils/100 WBC Auto (Bld)Ordered By: Curt Novoa on 22-18-6340Xnevqwlum/100 WBC (Bld)0.4 %.[facility] Bilirubin Test strip Ql (U)Ordered By: Curt Nvooa on 55-01-6816Gnbaytmxs Ql (U) NegativeNegativeSouthview Medical CenterBilirubin.direct [Mass/volume] in Serum or PlasmaOrdered By: Curt Novoa on 98-33-0577Vtvlsfhjp.direct [Mass/Vol]0.10 mg/dL0.03-0.18FTrinity Health System Twin City Medical CenterBilirubin.total [Mass/volume] in Serum or PlasmaOrdered By: Curt Novoa on 36-06-3149Ctxphgvsc [Mass/Vol]0.4 mg/dL0.3-1.0[facility] CenterCOVID-19 Detected/Not DetectedOrdered By: Curt Novoa on 76-60-7588CRKR-CoV-2 (COVID-19) RNA KIRSTIN+non- probe Ql (Nph)Not detectedNot DetectBethesda North HospitalComment on above:This is a duplicate RP2.1 COVID (PCR) result to be used for statistical tracking purpose only.Calcium [Mass/volume] in Serum or PlasmaOrdered By: Curt Novoa on 84-94-8025Dpxkkrm [Mass/Vol]9.2 mg/dL8.6-10.3FTrinity Health System Twin City Medical CenterCarbon dioxide, total [Moles/volume] in Serum or PlasmaOrdered By: Curt Novoa on 82-55-7464FN7 [Moles/Vol]21.3 mmol/L21.0-31.0[facility] CenterChloride [Moles/volume] in Serum or PlasmaOrdered By: Curt Novoa on 72-55-8498Eognvzth [Moles/Vol]108 mmol/A82-667IxhpfuaroSouthview Medical Center Color Auto (U)Ordered By: Curt Novoa on 81-32-7641Jgquj (U)YellowYellow [facility] CenterCreatinine [Mass/volume] in Serum or Plasma Ordered By: Curt Novoa on 68-88-4440Pzxwqedpdj [Mass/Vol]1.11 mg/dL0.60-1.20 [facility] CenterEosinophils Auto (Bld) [#/Vol]Ordered By: Curt Novoa on 39-97-4281Einnbweakei (Bld) [#/Vol]0.1 10*3/uL0.0-0.45[facility] CenterEosinophils/100 WBC Auto (Bld)Ordered By: Curt Novoa on 09-96-2764Fphwfsgjqhn/100 WBC (Bld)0.7 %.[facility] Erythrocyte distribution width Auto (RBC) [Ratio]Ordered By: Curt Novoa on 03-57-4941Bewvmqxsywu distribution width (RBC) [Ratio]12.5 %11.9-15.3FTrinity Health System Twin City Medical CenterGlobulin Calc (S) [Mass/Vol]Ordered By: Curt Novoa on 39-31-3780Eqvmxgvm (S) [Mass/Vol]2.7 g/dLSouthview Medical Center Glucose [Mass/volume] in Serum or PlasmaOrdered By: Curt Novoa on 08-23-2023 Glucose [Mass/Vol]102 mg/sP59-134PfbugchglSouthview Medical CenterComment on above:ADA recommended reference rangeRandom Glucose Reference Range is dependent on time and content of last meal. Glucose of more than 200 mg/dL in a nonstressed, ambulatory subject supports the diagnosisof Diabetes Mellitus.HCG ( test) IA.rapid Ql (U)Ordered By: Curt Novoa on 83-94-6962UGV ( test) Ql (U)NegativeSouthview Medical CenterHematocrit Auto (Bld) [Volume fraction]Ordered By: Curt Novoa on 64-58-5466Grolnziycz (Bld) [Volume fraction]35.7 %34.0-46.4FTrinity Health System Twin City Medical CenterHemoglobin [Mass/volume] in BloodOrdered By: Curt Novoa on 87-15-8178Kqozpsizxk (Bld) [Mass/Vol]12.4 g/dL11.8-15.4FTrinity Health System Twin City Medical CenterINR in Platelet poor plasma by Coagulation assayOrdered By: Curt Novoa on 95-40-9216JTW Coag (PPP) [Relative time]1.1 {INR}[facility] CenterComment on above: INR Therapeutic Range A) Pre- and Peroperative [...] By: Curt Novoa on 08-23-2023 Ketones (U) [Mass/Vol]NegativeNegativeSouthview Medical Center Laboratory - UrinalysisOrdered By: Curt Novoa on 58-65-4740Bjetbpl casts LM Ql (Urine sed)0-8 [LPF]0-8[facility] CenterLactate [Moles/volume] in Serum or PlasmaOrdered By: Curt Novoa on 19-65-6095Sjmlbmg [Moles/Vol]1.0 mmol/L0.5-2.2FTrinity Health System Twin City Medical CenterLeukocytes [#/volume] corrected for nucleated erythrocytes in Blood by Automated counOrdered By: Curt Novoa on 80-85-5021RVM corrected for nucl RBC Auto (Bld) [#/Vol]8.1 10*3/uL3.8-11.6 [facility] CenterLipase [Enzymatic activity/volume] in Serum or PlasmaOrdered By: Curt Novoa on 44-20-8643Ejfqlc [Catalytic activity/Vol]30.0 U/L11.0-82.0[facility] CenterLymphocytes Auto (Bld) [#/Vol] Ordered By: Curt Novoa on 61-20-8713Tjxejxjiyqs (Bld) [#/Vol]1.9 10*3/uL 1.00-4.8[facility] CenterLymphocytes/100 WBC Auto (Bld)Ordered By: Curt Novoa on 31-37-1469Rmtlgieahbh/100 WBC (Bld)23.3 %.[facility] CenterMCH Auto (RBC) [Entitic mass]Ordered By: Curt Novoa on 08-23-2023 MCH (RBC) [Entitic mass]31.2 pg24.7-34.3FTrinity Health System Twin City Medical CenterMCHC Auto (RBC) [Mass/Vol]Ordered By: Curt Novoa on 30-21-6495QBER (RBC) [Mass/Vol] 34.7 g/dL32.0-35.0[facility] CenterMCV Auto (RBC) [Entitic vol] Ordered By: Curt Novoa on 41-29-3595FEC (RBC) [Entitic vol]89.9 sS05-672 [facility] CenterMonocyte distribution width [Entitic volume] in Blood by AutomatedOrdered By: Curt Novoa on 81-15-8494Puaoxeml distribution width Auto (Bld) [Entitic vol]31.19 %0.00-20.00[facility] Comment on above:For adults in ED, MDW > 20.0 may be associated with a higher risk of sepsis during the first 12 hrs of hospital admissionMonocytes Auto (Bld) [#/Vol]Ordered By: Curt Novoa on 54-17-8266Asucqxhwf (Bld) [#/Vol]0.5 10*3/uL 0.0-0.8[facility] CenterMonocytes/100 WBC Auto (Bld)Ordered By: Curt Novoa on 09-52-7876Rxkqhoqfy/100 WBC (Bld)5.8 %.[facility] CenterNeutrophils Auto (Bld) [#/Vol]Ordered By: Curt Novoa on 08-23-2023 Neutrophils (Bld) [#/Vol]5.6 10*3/uL1.8-7.7FTrinity Health System Twin City Medical Center Neutrophils/100 WBC Auto (Bld)Ordered By: Curt Novoa on 08-23-2023 Neutrophils/100 WBC (Bld)69.8 %.[facility] CenterNitrite Test strip Ql (U)Ordered By: Curt Novoa on 72-08-8748Avgdzxc Ql (U)NegativeNegative [facility] CenterNo Panel InformationOrdered By: Curt Novoa on 02-95-1059Fmxbeafob GFR (CKD-EPI)> 60.0 mL/MinSouthview Medical Center Pharmacy Creatinine Clearance (Chem71.19[facility] Nucleated erythrocytes [Presence] in Blood by Automated countOrdered By: Curt Novoa on 08-40-4102Bkkjxrwqh RBC Auto Ql (Bld)0.2 /100{WBC}0-0.5FTrinity Health System Twin City Medical CenterPlatelet mean volume Auto (Bld) [Entitic vol]Ordered By: Curt Novoa on 99-82-8258Ykfvcnrl mean volume (Bld) [Entitic vol]10.0 fL6.3-10.7 [facility] CenterPlatelets Auto (Bld) [#/Vol]Ordered By: Curt Novoa on 64-74-9034Nkgrwcwss (Bld) [#/Vol]59 10*3/vK112-947IicigluhgSouthview Medical CenterPotassium [Moles/volume] in Serum or PlasmaOrdered By: Curt Novoa on 92-39-8912Tuxhqtbdl [Moles/Vol]4.1 mmol/L3.5-5.1FTrinity Health System Twin City Medical CenterProtein Auto test strip (U) [Mass/Vol]Ordered By: Curt Novoa on 08-71-4282Iusiooa (U) [Mass/Vol]100 mg/dLNegativeSouthview Medical CenterProtein [Mass/volume] in Serum or PlasmaOrdered By: Curt Novoa on 64-53-8546Fljibsa [Mass/Vol]6.9 g/dL6.4-8.9[facility] Prothrombin time (PT)Ordered By: Curt Novoa on 76-82-1992FI Coag (PPP) [Time] 12.3 s9.0-12.9[facility] CenterComment on above:A hematocrit value greater than 55% may lead to inaccurate results in coagulation testing. Patientshaving hematocrit values >55% require a special collection tube for coagulation studies. Please contact the laboratory at [phone] for redraw instructions.RBC Auto (Bld) [#/Vol]Ordered By: Curt Novoa on 19-14-9842WUN (Bld) [#/Vol]3.97 10*6/uL3.60-5.00[facility] CenterRespiratory pathogens DNA and RNA panel - Nasopharynx by KIRSTIN with non-probe detectionOrdered By: Curt Novoa on 34-71-0608Rnwlmddnrrj pathogens DNA and RNA panel KIRSTIN+non- probe (Nph)[facility] Hospitalerum or plasma albumin/globulin mass ratioOrdered By: Curt Novoa on 87-43-1472Vimrrig/Globulin [Mass ratio]1.6 {ratio}[facility] Hospitalerum or plasma anion gap determination Ordered By: Curt Novoa on 47-49-4494Cjpbd gap [Moles/Vol]12.8 mmol/L6.0-15.0 [facility] Hospitalerum or plasma non-glucuronidated bilirubin measurement (mass/volume)Ordered By: Curt Novoa 59-15-4886Dvbsvoxkz.indirect [Mass/Vol]0.3 mg/dLMercy Health Tiffin Hospitalodium [Moles/volume] in Serum or PlasmaOrdered By: Curt Novoa 05-98-8927Onfadw [Moles/Vol]138 mmol/L 136-145[facility]iff[facility] Hospitalpecific gravity Auto test strip (U) [Rel density]Ordered By: Curt Novoa on 74-81-8758Mqydycni gravity (U) [Rel density]1.0211.001-1.030[facility] Hospitalquamous epithelial cells detection in urine sediment by light microscopyOrdered By: Curt Novoa 38-05-5603Uikszvxegh cells.squamous LM Ql (Urine sed)0-1 [HPF]0-2FOhio State Harding Hospitaltreptococcus pyogenes antigen detectionOrdered By: Curt Novoa on 08-23-2023S. pyogenes Ag Ql (Unsp spec)[facility] CenterUrea nitrogen [Mass/volume] in Serum or PlasmaOrdered By: Curt Novoa 25-47-4224Gxhe nitrogen [Mass/Vol]12 mg/dL7-25[facility] Urine bacteria detection by automated methodOrdered By: Curt Novoa 59-27-0828Aslgcsjw Auto Ql (U)None seenNone SeenSouthview Medical CenterUrine clarity by refractometry automatedOrdered By: Curt Novoa 18-37-5722Yttjaou Refractometry automated (U)ClearClearFTrinity Health System Twin City Medical CenterUrine glucose measurement by automated test strip (mass/volume) Ordered By: Curt Novoa 13-51-7401Baakvmc Auto test strip (U) [Mass/Vol] Normal mg/dLNormBrown Memorial HospitalUrine hemoglobin detection by automated test stripOrdered By: Curt Novoa on 29-05-2604Iedjxenuab Auto test strip Ql (U)NegativeNegSycamore Medical CenterUrine leukocyte esterase detection by automated test stripOrdered By: Curt Novoa on 08-23-2023 Leukocyte esterase Auto test strip Ql (U)NegativeNegSycamore Medical CenterUrobilinogen Auto test strip (U) [Mass/Vol]Ordered By: Curt Novoa on 86-26-8566Tyuvpgedgahs (U) [Mass/Vol]Normal mg/dLNoMercy Health – The Jewish HospitalWBC Auto (Bld) [#/Vol]Ordered By: Curt Novoa on 22-13-6284SMH (Bld) [#/Vol]8.1 10*3/uL3.8-11.6FTrinity Health System Twin City Medical CenterpH Auto test strip (U)Ordered By: Curt Novoa on 98-14-1459hI (U)7.5 [pH]5.0-9.0[facility] CenterAlkaline phosphatase [Enzymatic activity/volume] in Serum or PlasmaOrdered By: Vanessa Duran on 85-07-1356BSH [Catalytic activity/Vol]53 U/L 34-104[facility] CenterAmphetamine Screen Ql (U)Ordered By: Vanessa Duran on 55-53-3070Ecxgvlsjgpok Ql (U)NegativeNegSycamore Medical CenterAmylase [Enzymatic activity/volume] in Serum or PlasmaOrdered By: Vanessa Duran on 50-00-1478Lbgwrgs [Catalytic activity/Vol]43 U/C91-240SujfltewdSouthview Medical CenterBarbiturates [Presence] in Urine by Screen methodOrdered By: Vanessa Duran on 98-74-7989Iqwcclvwxhqy Screen Ql (U)NegativeNegSycamore Medical CenterBenzodiazepines Screen Ql (U)Ordered By: Vanessa Duran on 90-42-8805Awgdgdzsdqiluir Ql (U)NegativeNegSycamore Medical CenterBenzoylecgonine [Presence] in Urine by Screen methodOrdered By: Vanessa Duran on 09-07-3975Iqdojqtxbfelqxz Screen Ql (U)NegativeNegativeSouthview Medical CenterBilirubin.direct [Mass/volume] in Serum or PlasmaOrdered By: Vanessa Duran on 28-28-8333Mlmgcffnm.direct [Mass/Vol]0.10 mg/dL0.03-0.18 [facility] CenterBilirubin.total [Mass/volume] in Serum or PlasmaOrdered By: Vanessa Duran on 87-38-0859Whfeyrsxf [Mass/Vol]0.6 mg/dL0.3-1.0 [facility] CenterCannabinoids [Presence] in Urine by Screen methodOrdered By: Vanessa Duran on 78-22-2838Porrfydgzrqt Screen Ql (U)Positive NegativeSouthview Medical CenterComment on above:These are unconfirmed results and should not be used for legal purposes. Drug Cut-Off Concentration: AMPH 1000 ng/mL MALIK 200 ng/mL DMITRY 200 ng/mL COCM 300 ng/mL OP 300 ng/mL PCP 25 ng/mL THC 20 ng/mLHCG ( test) IA.rapid Ql (U)Ordered By: Shahid Voss on 85-33-9164WOS ( test) Ql (U)NegativeSouthview Medical Center Lipase [Enzymatic activity/volume] in Serum or PlasmaOrdered By: Vanessa Duran on 88-34-5866Thkypv [Catalytic activity/Vol]27.0 U/L11.0-82.0[facility] CenterOpiates [Presence] in Urine by Screen methodOrdered By: Vanessa Duran on 12-86-0606Inbpfgm Screen Ql (U)NegativeNegativeSouthview Medical CenterPhencyclidine Screen Ql (U)Ordered By: Vanessa Duran on 07-29-2023 Phencyclidine Ql (U)NegativeNegativeMercy Health Tiffin Hospitalerum or plasma non-glucuronidated bilirubin measurement (mass/volume)Ordered By: Vanessa Duran on 47-72-5485Rljlpalpk.indirect [Mass/Vol]0.5 mg/dLSouthview Medical CenterBASIC METABOLIC PANELon 00-97-7429Qsjgo gap [Moles/Vol]12 mmol/L Intcod78-25Zfb [facility] SystemComment on above:Performed By: Nolberto### CH8 #### [facility] [address] [place], [address]Nrmetht [Mass/Vol]9.9 mg/dLNormal8.6-10.3The [facility] SystemComment on above:Performed By: #### CH8 #### [facility] [address] [place], [address]Iguebtie [Moles/Vol]105 mmol/LDfvdcy87-266Mhd [facility] SystemComment on above:Performed By: #### CH8 #### [facility] [address] [place], [address]MV3 [Moles/Vol]26 mmol/RMpjgut53-24Lfe [facility] SystemroHealth SystemComment on above:Performed By: #### CH8 #### [facility] [address] [place], [address]Enhztyxpur [Mass/Vol]0.92 mg/dLNormal0.60-1.20The [facility] SystemComment on above:Performed By: #### CH8 #### [facility] [address] [place], [address]JPXCLQJXZ GFR (CKD-EPI)82 mL/min/1.73sqmNormal>=60The [facility] SystemComment on above:Result Comment: 2020 CKD EPI Equation using Creatinine [...] Inclusion of Race in Diagnosing Kidney Disease. AmericanJournal of Kidney Diseases 2021;79(2):268-88.e1. 2. N Engl J Med 1 Vol. 385 Issue 19 Pages 3118-5731Performed By: #### CH8 #### [facility] [address] [place], [address]Jbezusu [Mass/Vol]91 mg/dGTxuqdv99-622Hdq [facility] SystemComment on above:Performed By: #### CH8 #### [facility] [address] [place], [address]Zspehsqkc [Moles/Vol]4.0 mmol/LNormal3.5-5.0The [facility] SystemComment on above:Performed By: #### CH8 #### [facility] [address] [place] [address], [address]Jybftt [Moles/Vol]139 mmol/OWhaysi403-357Myn [facility] SystemComment on above:Performed By: #### CH8 #### [facility] [address] [place], [address]Xrhq nitrogen [Mass/Vol]14 mg/dLNormal7-25The [facility] SystemComment on above:Performed By: #### CH8 #### [facility] [address] [place] [address], [address]Ktczp metabolic 2000 panelon 89-83-7996Bmvdk gap [Moles/Vol]12 mmol/L10 - 20THE [facility] SYSTEMCalcium [Mass/Vol]9.9 mg/dL8.6 - 10.3 mg/dLTHE [facility]RO[facility]ALTH SYSTEMChloride [Moles/Vol]105 mmol/L98 - 107 mmol/L THE [facility] SYSTEMCO2 [Moles/Vol]26 mmol/L21 - 31 mmol/LTHE [facility] SYSTEMCreatinine [Mass/Vol]0.92 mg/dL0.60 - 1.20 mg/dLTHE [facility]RO[facility] GFR/1.73 sq M.predicted CKD-EPI (S/P/Bld) [Vol rate/Area]82- PINFTHE METROHEALTH SYSTEMComment on above:2020 CKD EPI Equation using Creatinine without Race [...] Inclusion of Race in Diagnosing Kidney Disease. AmericanJournal of Kidney Diseases 202;79(2):268-88.e1. 2. N Engl J Med 1 Vol. 385 Issue 19 Pages 7495-9246 Glucose [Mass/Vol]91 mg/dL74 - 109 mg/dLTHE [facility] SYSTEMInterpretation and review of laboratory resultsNormalTHE MANHATT[facility] PSYCHIATR[facility] CENTERROWOOSTER COMMUNITY [facility]PITAL SYSTEMPotassium [Moles/Vol] 4.0 mmol/L3.5 - 5.0 mmol/LTHE METROHEALTH SYSTEMSodium [Moles/Vol]139 mmol/L136 - 145 mmol/LTHE MANHATT[facility] PSYCHIATRIC CENTERROWOOSTER COMMUNITY HOSPITAL SYSTEMUrea nitrogen [Mass/Vol]14 mg/dL7 - 25 mg/dL THE [facility]AT[facility] CENTERROHEALTH SYSTEMTHE METROWOOSTER COMMUNITY HOSPITAL SYSTEMCT FACE SOFT TISSUE W/CONTRASTon 94-85-6264JT FACE SOFT TISSUE W/CONTRASTEXAMINATION: CT FACE SOFT TISSUE W/CONTRAST 07/09/2023 06:23 [...] disease with small left mastoid effusion. MACRO: NoneNormalThe [facility] SystemroBarnesville Hospital SystemCT Maxillofacial region W contrast IV Ordered By: Sis Naqvi on 19-56-9833TH GXT740.5 (mGy.cm)[employer] Work Phone: ct SeriesHeadTHE [employer] Work Phone: cTDI VOL16.3 (mGy)[employer] Work Phone: PHANTOM TYPEIEC Head Dosimetry PhantomTHE [employer] Work Phone: [employer] Work Phone: ct Maxillofacial region W contrast Linus 07-09-2023 EXAMINATION: CT FACE SOFT TISSUE [...] iodinated contrast material. Contrast Protocol: Omnipaque 350 [> or =100lb] 75 ml [<100 lb] 1 ml [...] with small left mastoid effusion. MACRO: None Sis Benoit DO - 07/09/2023 EXAMINATION: CT FACE SOFT [...] iodinated contrast material. Contrast Protocol: Omnipaque 350 [> or =100lb] 75 ml [<100 lb] 1 ml [...] small left mastoid effusion. MACRO: None [employer] Work Phone: Radiology Study observation (narrative)[employer] Work Phone: ED Noteson [phone] Authentication Interface Message TextBed: 58 Expected date: Expected time: Means of arrival: Comments: Rey TrevinoOhioHealth [facility]ering[facility] Aniways SystemED Provider Noteson [phone] Authentication Interface Message Text HISTORY OF PRESENT ILLNESS 07/09/2023, 4:36 PM. The history is provided [...] an acute fracture. Inclu (more content not included)...NormalThe [facility] SystemroHealth SystemAlanine aminotransferase [Enzymatic activity/volume] in Serum or PlasmaOrdered By: Kat Cristina on 05-15-0774OAV [Catalytic activity/Vol]27 U/L7-52[facility] CenterAlbumin [Mass/volume] in Serum or Plasma by Bromocresol green (BCG) dye binding methoOrdered By: Kat Cristina on 61-91-8162Yxlouic BCG dye [Mass/Vol]4.3 g/dL3.5-5.7FTrinity Health System Twin City Medical CenterAlkaline phosphatase [Enzymatic activity/volume] in Serum or PlasmaOrdered By: Kat Cristina on 73-96-4521AGV [Catalytic activity/Vol]77 U/E73-292RfueurewcSouthview Medical CenterAspartate aminotransferase [Enzymatic activity/volume] in Serum or PlasmaOrdered By: Kat Cristina on 43-51-0463RMM [Catalytic activity/Vol]30 U/L 13-39[facility] CenterBasophils Auto (Bld) [#/Vol]Ordered By: Kat Cristina on 33-95-4032Spqxlpuik (Bld) [#/Vol]0.1 10*3/uL0.0-0.2FTrinity Health System Twin City Medical CenterBasophils/100 WBC Auto (Bld)Ordered By: Kat Cristina on 67-15-8832Xfjyzvfie/100 WBC (Bld)1.1 %.[facility] Bilirubin Test strip Ql (U)Ordered By: Kat Cristina on 99-73-3941Odyykjerl Ql (U)NegativeNegativeSouthview Medical CenterBilirubin.direct [Mass/volume] in Serum or PlasmaOrdered By: Kat Cristina on 06-09-2023 Bilirubin.direct [Mass/Vol]0.10 mg/dL0.03-0.18FTrinity Health System Twin City [facility] Center Bilirubin.total [Mass/volume] in Serum or PlasmaOrdered By: Kat Cristina 07-15-1978Tomzudknw [Mass/Vol]0.3 mg/dL0.3-1.0[facility] Calcium [Mass/volume] in Serum or PlasmaOrdered By: Kat Cristina on 06-09-2023 Calcium [Mass/Vol]9.2 mg/dL8.6-10.3FTrinity Health System Twin City Medical CenterCarbon dioxide, total [Moles/volume] in Serum or PlasmaOrdered By: Kat Cristina 15-28-5391RV8 [Moles/Vol]25.3 mmol/L21.0-31.0[facility] Chloride [Moles/volume] in Serum or PlasmaOrdered By: Kat Cristina 06-09-2023 Chloride [Moles/Vol]108 mmol/Y72-798CmoqabyzeSouthview Medical CenterColor Auto (U)Ordered By: Kat Cristina 41-92-8679Fnlyh (U)YellowYellowSouthview Medical CenterCreatinine [Mass/volume] in Serum or PlasmaOrdered By: Kat Cristina 36-22-4177Rimtrpljzr [Mass/Vol]0.90 mg/dL0.60-1.20[facility] CenterEosinophils Auto (Bld) [#/Vol]Ordered By: Kat Cristina on 82-94-2338Ghjbephzwxa (Bld) [#/Vol]0.3 10*3/uL0.0-0.45[facility] CenterEosinophils/100 WBC Auto (Bld)Ordered By: Kat Cristina on 06-09-2023 Eosinophils/100 WBC (Bld)3.7 %.[facility] CenterErythrocyte distribution width Auto (RBC) [Ratio]Ordered By: Kat Cristina on 06-09-2023 Erythrocyte distribution width (RBC) [Ratio]12.5 %11.9-15.3FTrinity Health System Twin City Medical CenterGlobulin Calc (S) [Mass/Vol]Ordered By: Kat Cristina on 06-09-2023 Globulin (S) [Mass/Vol]2.1 g/dLSouthview Medical CenterGlucose [Mass/volume] in Serum or PlasmaOrdered By: Kat Cristina on 59-11-8594Supfrkx [Mass/Vol]105 mg/gC06-760AhiivjeadSouthview Medical CenterComment on above:ADA recommended reference rangeRandom Glucose Reference Range is dependent on time and content of last meal. Glucose of more than 200 mg/dL in a nonstressed, ambulatory subject supports the diagnosisof Diabetes Mellitus.HCG ( test) IA.rapid Ql (U)Ordered By: Kat Cristina on 59-26-5472MTS ( test) Ql (U)NegativeSouthview Medical CenterHematocrit Auto (Bld) [Volume fraction]Ordered By: Kat Cristina on 42-57-6815Jfsnoxyxwa (Bld) [Volume fraction]37.4 %34.0-46.4FTrinity Health System Twin City Medical CenterHemoglobin [Mass/volume] in BloodOrdered By: Kat Cristina on 63-63-5474Zwjfuhhzfa (Bld) [Mass/Vol]13.4 g/dL11.8-15.4FTrinity Health System Twin City Medical CenterKetones Auto test strip (U) [Mass/Vol]Ordered By: Kat Cristina on 37-05-4342Snswtje (U) [Mass/Vol] NegativeNegativeSouthview Medical CenterLeukocytes [#/volume] corrected for nucleated erythrocytes in Blood by Automated counOrdered By: Kat Cristina on 30-36-7215ZPP corrected for nucl RBC Auto (Bld) [#/Vol]7.3 10*3/uL3.8-11.6 [facility] CenterLipase [Enzymatic activity/volume] in Serum or PlasmaOrdered By: Kat Cristina on 84-70-0283Zobwgy [Catalytic activity/Vol]60.0 U/L11.0-82.0[facility] CenterLymphocytes Auto (Bld) [#/Vol] Ordered By: Kat Cristina on 44-98-5632Zcvuzelzgzs (Bld) [#/Vol]4.3 10*3/uL 1.00-4.8[facility] CenterLymphocytes/100 WBC Auto (Bld)Ordered By: Kat Cristina on 05-13-1120Nqrtsejikdy/100 WBC (Bld)58.0 %.[facility] Auto (RBC) [Entitic mass]Ordered By: Kat Cristina on 20-90-8871ZWB (RBC) [Entitic mass]31.6 pg24.7-34.3FTrinity Health System Twin City Medical CenterMCHC Auto (RBC) [Mass/Vol]Ordered By: Kat Cristina on 82-10-2475EPRD (RBC) [Mass/Vol]35.8 g/dL32.0-35.0[facility] CenterMCV Auto (RBC) [Entitic vol]Ordered By: Kat Cristina on 88-35-1413YDO (RBC) [Entitic vol]88.2 hS06-985XmukrvvkvSouthview Medical CenterMonocyte distribution width [Entitic volume] in Blood by AutomatedOrdered By: Kat Cristina on 82-16-7397Xgzyqmxv distribution width Auto (Bld) [Entitic vol]18.22 %0.00-20.00[facility] CenterMonocytes Auto (Bld) [#/Vol]Ordered By: Kat Cristina on 06-09-2023 Monocytes (Bld) [#/Vol]0.4 10*3/uL0.0-0.8[facility] Monocytes/100 WBC Auto (Bld)Ordered By: Kat Cristina on 23-63-6799Wansrsfaj/100 WBC (Bld)5.2 %.[facility] CenterNeutrophils Auto (Bld) [#/Vol] Ordered By: Kat Cristina on 56-03-6928Xjjpqrjfzel (Bld) [#/Vol]2.3 10*3/uL 1.8-7.7FTrinity Health System Twin City Medical CenterNeutrophils/100 WBC Auto (Bld)Ordered By: Kat Cristina on 96-43-4253Yiihveaejmo/100 WBC (Bld)32.0 %.[facility] CenterNitrite Test strip Ql (U)Ordered By: Kat Cristina on 06-09-2023 Nitrite Ql (U)NegativeNegativeSouthview Medical CenterNo Panel InformationOrdered By: Kat Cristina on [id number] GFR (CKD-EPI)> 60.0 mL/MinSouthview Medical CenterPharmacy Creatinine Clearance (Chem87.63 [facility] CenterNucleated erythrocytes [Presence] in Blood by Automated countOrdered By: Kat Cristina on 91-29-1288Vyodrsdre RBC Auto Ql (Bld) 0.1 /100{WBC}0-0.5FTrinity Health System Twin City Medical CenterPlatelet mean volume Auto (Bld) [Entitic vol]Ordered By: Kat Cristina on 82-99-6725Cggnjylc mean volume (Bld) [Entitic vol]7.3 fL6.3-10.7FTrinity Health System Twin City Medical CenterPlatelets Auto (Bld) [#/Vol]Ordered By: Kat Cristina on 21-25-0390Vanctffnq (Bld) [#/Vol]333 10*3/sV367-440AitxyuyfwSouthview Medical CenterPotassium [Moles/volume] in Serum or PlasmaOrdered By: Kat Cristina on 24-72-9266Cukxwawfg [Moles/Vol]3.8 mmol/L 3.5-5.1FTrinity Health System Twin City Medical CenterProtein Auto test strip (U) [Mass/Vol] Ordered By: aKt Cristina on 40-99-0381Stabltq (U) [Mass/Vol]NegativeNegative [facility] CenterProtein [Mass/volume] in Serum or PlasmaOrdered By: Kat Cristina on 65-39-8453Ddaytmt [Mass/Vol]6.4 g/dL6.4-8.9[facility] CenterRBC Auto (Bld) [#/Vol]Ordered By: Kat Cristina on 39-19-9474CBU (Bld) [#/Vol]4.24 10*6/uL3.60-5.00[facility] Hospitalerum or plasma albumin/globulin mass ratioOrdered By: Kat Cristina on 55-24-5773Weqfghd/Globulin [Mass ratio]2.0 {ratio}[facility] Hospitalerum or plasma anion gap determinationOrdered By: Kat Cristina on 23-44-1505Edmzl gap [Moles/Vol]8.5 mmol/L6.0-15.0[facility] Hospitalerum or plasma non-glucuronidated bilirubin measurement (mass/volume) Ordered By: Kat Cristina on 25-72-0569Tdbdsqzsx.indirect [Mass/Vol]0.2 mg/dL [facility] Hospitalodium [Moles/volume] in Serum or PlasmaOrdered By: Kat Cristina on 95-76-8208Tzpetk [Moles/Vol]138 mmol/I686-586BootbjmazMercy Health Tiffin Hospitalpecific gravity Auto test strip (U) [Rel density]Ordered By: Kat Cristina on 49-77-7638Kraxnind gravity (U) [Rel density]1.0141.001-1.030 [facility] CenterUrea nitrogen [Mass/volume] in Serum or Plasma Ordered By: Kat Cristina on 22-72-9838Ydls nitrogen [Mass/Vol]12 mg/dL7-25 [facility] CenterUrine clarity by refractometry automatedOrdered By: Kat Cristina on 08-89-7170Gqnodzd Refractometry automated (U)ClearClear [facility] CenterUrine glucose measurement by automated test strip (mass/volume)Ordered By: Kat Cristina on 38-04-3256Cvbqxmb Auto test strip (U) [Mass/Vol]Normal mg/dLNormalSouthview Medical CenterUrine hemoglobin detection by automated test stripOrdered By: Kat Cristina on 43-68-7608Qgvtmugmww Auto test strip Ql (U)NegativeNegativeSouthview Medical CenterUrine leukocyte esterase detection by automated test stripOrdered By: Kat Cristina on 04-49-7273Cxjsyjtds esterase Auto test strip Ql (U)Negative NegativeSouthview Medical CenterUrobilinogen Auto test strip (U) [Mass/Vol]Ordered By: Kat Cristina on 90-76-8687Reyjmbwiojdv (U) [Mass/Vol] Normal mg/dLNormalSouthview Medical CenterWBC Auto (Bld) [#/Vol]Ordered By: Kat Cristina on 55-39-9420KBM (Bld) [#/Vol]7.3 10*3/uL3.8-11.6FTrinity Health System Twin City Medical CenterpH Auto test strip (U)Ordered By: Kat Cristina on 25-53-2666zK (U)8.0 [pH]5.0-9.0[facility] CenterCOVID Cepheid Ordered By: Curt Novoa on 66-45-3390VMCR-CoV-2 (COVID-19) Ab IA QlNegative NegativeSouthview Medical CenterComment on above:This is a duplicate Cepheid Xpert Xpress CoV-2/Flu/RSV Plus RNA by RT-PCR result to be used for stat istical tracking purpose only.SARS-CoV-2 (COVID-19) RNA KIRSTIN+probe Ql (Unsp spec) [facility] HospitalARS-CoV-2 (COVID-19) RNA KIRSTIN+probe Ql (Unsp spec)[facility] CenterAlanine aminotransferase [Enzymatic activity/volume] in Serum or PlasmaOrdered By: Lisa Jonhs on 89-41-4058KRR [Catalytic activity/Vol]21 U/L7-52[facility] CenterAlbumin [Mass/volume] in Serum or Plasma by Bromocresol green (BCG) dye binding metho Ordered By: Lisa Johns on 48-11-8090Oabwhdv BCG dye [Mass/Vol]4.1 g/dL 3.5-5.7FTrinity Health System Twin City Medical CenterAlkaline phosphatase [Enzymatic activity/volume] in Serum or PlasmaOrdered By: Lisa Johns on 76-94-4847NZJ [Catalytic activity/Vol]57 U/M23-473WwpcqzdulSouthview Medical CenterAspartate aminotransferase [Enzymatic activity/volume] in Serum or PlasmaOrdered By: Lisa Johns on 49-90-4636OYE [Catalytic activity/Vol]22 U/D28-55XuihefvhlSouthview Medical CenterBasophils Auto (Bld) [#/Vol]Ordered By: Lisa Johns on 93-95-6194Jkeforgde (Bld) [#/Vol]0.0 10*3/uL0.0-0.2FTrinity Health System Twin City Medical CenterBasophils/100 WBC Auto (Bld)Ordered By: Lisa Johns on 11-25-2022 Basophils/100 WBC (Bld)0.4 %.[facility] CenterBilirubin.total [Mass/volume] in Serum or PlasmaOrdered By: Lisa Johns on 11-25-2022 Bilirubin [Mass/Vol]0.4 mg/dL0.3-1.0[facility] CenterC reactive protein [Mass/volume] in Serum or Plasma by High sensitivity methodOrdered By: Lisa Johns on 44-39-4058RDN High sensitivity method [Mass/Vol]3.1 mg/L 0.0-0.9[facility] CenterComment on above:Cardiovascular Risk Classification (AHA/CDC)hsCRP < 1.0 mg/l low relative risk for CVDhsCRP 1.0-3.0 mg/l average relative risk for CVDhsCRP > 3.0 mg/l high relative risk for CVDhsCRP > 7.5 mg/l active inflammation*Two results two weeks apart and averaged provide a morestable estimate of hsCRP level.*hsCRP levels > 7.5 mg/l may suggest infection that canlimit the use of this marker forestimation of CVD risk.Calcium [Mass/volume] in Serum or PlasmaOrdered By: Lisa Johns on 31-89-9217Zdnbsfi [Mass/Vol]8.8 mg/dL8.6-10.3FTrinity Health System Twin City Medical Center Carbon dioxide, total [Moles/volume] in Serum or PlasmaOrdered By: Lisa Johns on 47-48-1001EJ4 [Moles/Vol]18.9 mmol/L21.0-31.0[facility] CenterChloride [Moles/volume] in Serum or PlasmaOrdered By: Lisa Johns on 09-58-3300Txtjmdlk [Moles/Vol]111 mmol/X90-461WnvptwsvuSouthview Medical Center Creatinine [Mass/volume] in Serum or PlasmaOrdered By: Lisa Johns on 44-30-9222Bwcdtykfqq [Mass/Vol]0.98 mg/dL0.60-1.20[facility] CenterEosinophils Auto (Bld) [#/Vol]Ordered By: Lisa Johns on 11-25-2022 Eosinophils (Bld) [#/Vol]0.1 10*3/uL0.0-0.45[facility] Eosinophils/100 WBC Auto (Bld)Ordered By: Lisa Johns on 11-25-2022 Eosinophils/100 WBC (Bld)3.2 %.[facility] CenterErythrocyte distribution width Auto (RBC) [Ratio]Ordered By: Lisa Johns on 11-25-2022 Erythrocyte distribution width (RBC) [Ratio]12.5 %11.9-15.3FTrinity Health System Twin City Medical CenterErythrocyte sedimentation rate by Photometric methodOrdered By: Lisa Johns on 64-58-7029PNC Photometric method (Bld) [Velocity]1 mm/hr0-19 [facility] CenterGlobulin Calc (S) [Mass/Vol]Ordered By: Lisa Johns on 01-68-4699Wywnqmpn (S) [Mass/Vol]2.0 g/dLSouthview Medical CenterGlucose [Mass/volume] in Serum or PlasmaOrdered By: Lisa Johns on 77-68-9281Lzlxipv [Mass/Vol]116 mg/pW96-395ZeplinffrSouthview Medical Center Comment on above:ADA recommended reference rangeRandom Glucose Reference Range is dependent on time and content of last meal. Glucose of more than 200 mg/dL in a nonstressed, ambulatory subject supports the diagnosisof Diabetes Mellitus. Hematocrit Auto (Bld) [Volume fraction]Ordered By: Lisa Johns on 11-25-2022 Hematocrit (Bld) [Volume fraction]38.1 %34.0-46.4FTrinity Health System Twin City Medical CenterHemoglobin [Mass/volume] in BloodOrdered By: Lisa Johns on 11-25-2022 Hemoglobin (Bld) [Mass/Vol]13.2 g/dL11.8-15.4FTrinity Health System Twin City Medical Center Leukocytes [#/volume] corrected for nucleated erythrocytes in Blood by Automated counOrdered By: Lisa Johns on 08-76-0333UXR corrected for nucl RBC Auto (Bld) [#/Vol]4.4 10*3/uL3.8-11.6FTrinity Health System Twin City Medical CenterLymphocytes Auto (Bld) [#/Vol]Ordered By: Lisa Johns on 41-68-1344Qjeyeuwnlof (Bld) [#/Vol]2.4 10*3/uL1.00-4.8[facility] CenterLymphocytes/100 WBC Auto (Bld)Ordered By: Lisa Johns on 79-19-9068Lkwclujnnby/100 WBC (Bld)53.9 %.[facility] CenterMCH Auto (RBC) [Entitic mass]Ordered By: Lisa Johns on 80-96-3494BVK (RBC) [Entitic mass]31.3 pg24.7-34.3FTrinity Health System Twin City Medical CenterMCHC Auto (RBC) [Mass/Vol]Ordered By: Lisa Johns on 30-06-8020MGAO (RBC) [Mass/Vol]34.8 g/dL32.0-35.0[facility] CenterMCV Auto (RBC) [Entitic vol]Ordered By: Lisa Johns on 05-39-5843GQI (RBC) [Entitic vol]90.0 qI55-713OorbbzdqeSouthview Medical CenterMonocytes Auto (Bld) [#/Vol]Ordered By: Lisa Johns on 62-05-7940Jrcmbloga (Bld) [#/Vol]0.3 10*3/uL0.0-0.8[facility] CenterMonocytes/100 WBC Auto (Bld) Ordered By: Lisa Johns on 20-68-0741Pcziixaxa/100 WBC (Bld)6.7 %.[facility] Medical CenterNeutrophils Auto (Bld) [#/Vol]Ordered By: Lisa Johns on 61-83-0686Pgtkzelinhs (Bld) [#/Vol]1.6 10*3/uL1.8-7.7FTrinity Health System Twin City Medical CenterNeutrophils/100 WBC Auto (Bld)Ordered By: Lisa Johns on 71-72-1148Atgukhosign/100 WBC (Bld)35.8 %.[facility] CenterNo Panel InformationOrdered By: Lisa Johns on 14-61-4922Wvupvuyqm GFR (CKD-EPI) > 60.0 mL/MinSouthview Medical CenterPharmacy Creatinine Clearance (ChemN/Prov[facility] HospitalNucleated erythrocytes [Presence] in Blood by Automated countOrdered By: Lisa Johns on 56-40-3316Esqubnsyj RBC Auto Ql (Bld)0.1 /100{WBC}0-0.5FTrinity Health System Twin City Medical CenterPlatelet mean volume Auto (Bld) [Entitic vol]Ordered By: Lisa Johns on 15-13-0504Rtqjfxfg mean volume (Bld) [Entitic vol]8.3 fL6.3-10.7FTrinity Health System Twin City Medical Center Platelets Auto (Bld) [#/Vol]Ordered By: Lisa Johns on 30-54-2056Lvjtqjxjh (Bld) [#/Vol]242 10*3/uL276-011IxzauuwyeSouthview Medical CenterPotassium [Moles/volume] in Serum or PlasmaOrdered By: Lisa Johns on 11-25-2022 Potassium [Moles/Vol]3.7 mmol/L3.5-5.1FTrinity Health System Twin City Medical CenterProtein [Mass/volume] in Serum or PlasmaOrdered By: Lisa Johns on 50-34-6772Jhippep [Mass/Vol]6.1 g/dL6.4-8.9[facility] CenterRBC Auto (Bld) [#/Vol] Ordered By: Lisa Johns on 45-30-1670PYC (Bld) [#/Vol]4.23 10*6/uL3.60-5.00 [facility] Hospitalerum or plasma albumin/globulin mass ratio Ordered By: Lisa Johns on 83-76-5289[place]/Globulin [Mass ratio]2.1 {ratio} [facility] Hospitalerum or plasma anion gap determinationOrdered By: Lisa Johns on 10-83-2656Majui gap [Moles/Vol]11.8 mmol/L6.0-15.0 [facility] Hospitalerum or plasma free cefuroxime measurement (mass/volume)Ordered By: Lisa Johns on 09-53-3830Knwwqtmasx free [Mass/Vol] NegativeNegativeSouthview Medical CenterComment on above:Performed at: [employer] [address] [id number] Director: Lonnie Elise PhD, Phone: [phone] or plasma rheumatoid factor measurement (units/volume)Ordered By: Lisa Johns on 02-22-8232Oyehwbkawp factor Qn [IU]/mL<14.0[facility] CenterComment on above:Performed at: [employer] [address] [id number] Director: Lonnie Elise PhD, Phone: [phone] [Moles/volume] in Serum or PlasmaOrdered By: Lisa Johns on 44-21-0573Agwzag [Moles/Vol]138 mmol/L629-855ZyoyripcxSouthview Medical CenterUrea nitrogen [Mass/volume] in Serum or PlasmaOrdered By: Lisa Johns on 32-96-7268Bukj nitrogen [Mass/Vol]15 mg/dL7-25[facility] CenterWBC Auto (Bld) [#/Vol]Ordered By: Lisa Johns on 62-35-0406ARR (Bld) [#/Vol]4.4 10*3/uL3.8-11.6FTrinity Health System Twin City Medical Center Urinalysis - AUTOMATEDon 78-90-1996Papgiqzfyz (U)[employer] Other Bilirubin Ql (U)[employer] Other Color (U)[employer] Other Glucose Ql (U)[employer] Other Hemoglobin Ql (U)traceNoresearch belton hospital [employer] Other Ketones Ql (U)NegativeMckeesport [employer] Other Leukocyte esterase Test strip Ql (U)NegativeMckeesport [employer] Other Nitrite Ql (U)[facility] [employer] Other pH (U)5.5 [pH][facility] [employer] Other Protein Ql (U)NegativeMckeesport [employer] Other Specific gravity (U) [Rel density]1.030[facility] [employer] Other Urobilinogen (U) [Mass/Vol]0.2 mg/dLMckeesport [employer] Other Urinalysis - AUTOMATEDNoresearch belton hospital [employer] Other STR cardiac stress/regularon 03-35-0808BKQ cardiac stress/regularHocking Valley Community Hospital [employer] Other STR cardiac stress/regularInter-Community Medical [facility] [employer] Other stR cardiac stress/uibbjeg1374 [facility] [employer] Other STR cardiac stress/regularSandjose [place] [address]Nevrk [employer] Other STR cardiac stress/regularCardiac Stress TestMckeesport [employer] Other STR cardiac stress/regularDraftMckeesport [employer] Other STR cardiac stress/regularPatient: Karolina Smalls MR#: [id number] [employer] Other STR cardiac stress/huyssqr74Oknod [employer] Other STR cardiac stress/regularDOB: 1985 Acct:[id number] [employer] Other str cardiac stress/regularAge/Sex: 36 / F ADM Date: 07/17/22[place] [employer] Other str cardiac stress/regularLoc: [place] Room: Type: [facility] Buffer Other str cardiac stress/regularAttending Dr: Lisa Johns [facility] [employer] Other str cardiac stress/regularCopies to:Buffer Other str cardiac stress/regularOrdering Provider: Lisa Johns [facility] and AdolescentsYangaroo Other str cardiac stress/regularDate of Service: 07/17/22 Buffer Other str cardiac stress/regularAccession #: ([id number]) STR/STR cardiac stress/regular: Nonspecific ST-T waveMckeesport [employer] Other str cardiac stress/regularelectrocardiographic changes Buffer Other str cardiac stress/regularORDERING: Lisa Johns, [facility] [employer] Other str cardiac stress/regularSUPERVISING: Seun Boo MDMckeesport [employer] Other str cardiac stress/regularCLINICAL INFORMATION: Chest pain.Buffer Other str cardiac stress/regularThe patient underwent routine treadmill testing according to Dayday protocol and accomplished total Buffer Other str cardiac stress/regularexercise duration of 9 minutes and 51 seconds. The resting heart rate was 77 beats per minute [facility] Southern ArizonauTest Other str cardiac stress/regularpeak heart rate 155 beats per minute, which is 84% of predicted heart rate for age. Workload wasLake Regional Health SystemuTest Other stR cardiac stress/sbmbcty67.5 METS. Resting blood pressure was 136/88 and peak blood pressure 168/76. Study was terminatedNoresearch belton hospital [employer] Other str cardiac stress/regularfor fatigue. The patient arrived with baseline complaints of retrosternal left arm and armpit pain.Buffer Other STP cardiac stress/regularIt was unchanged with exercise. It was present on arrival and at departure. There were no changesNoresearch belton hospital [employer] Other STR cardiac stress/regularin symptoms and no findings to suggest myocardial ischemia.Buffer Other str cardiac stress/regularSUMMARY:Buffer Other STR cardiac stress/regular1. Resting EKG demonstrates normal sinus rhythm, normal EKG.Buffer Other STR cardiac stress/regular2. No new anginal symptomatology with exertion.Buffer Other STR cardiac stress/regular3. No ischemic ST-T wave changes were noted.Buffer Other STR cardiac stress/regular4. There were no arrhythmias.Buffer Other STR cardiac stress/regular5. The patient had a satisfactory work capacity and heart rate response.Buffer Other STR cardiac stress/regular6. This is a normal graded exercise test. The patient demonstrates no convincing anginalNpemiscot memorial health systems [employer] Other STR cardiac stress/regularsymptomology, no ischemic ST-T wave changes, and no arrhythmias with exercise.Buffer Other STS cardiac stress/regularTranscribed By: PETTY 07/18/22 1607[place] [employer] Other str cardiac stress/regularDictated By: Marcel Boo MD 07/18/22 1454[place] [employer] Other STR cardiac stress/regularSigned By:Buffer Other automated erythrocytes count in urine sediment (number/area)Ordered By: Lisa Johns on 82-10-5679DLN Auto (Urine sed) [#/Area]10-19 [HPF]0-4FTrinity Health System Twin City Medical CenterAutomated leukocytes count in urine sediment (number/area)Ordered By: Lisa Johns on 60-97-4867SCX Auto (Urine sed) [#/Area]20-49 [HPF]0-4FTrinity Health System Twin City Medical Center Bilirubin Test strip Ql (U)Ordered By: Lisa Johns on 44-29-7594Lpgxihaww Ql (U)NegativeNegSycamore Medical CenterColor Auto (U)Ordered By: Lisa Johns on 11-15-8000Zltea (U)YellowYellowSouthview Medical CenterDipstick & Microscopicon 12-23-6441Qvjhjvkh & MicroscopicNoresearch belton hospital [employer] Other Ketones Auto test strip (U) [Mass/Vol]Ordered By: Lisa Johns on 85-23-1937Wzcrlvl (U) [Mass/Vol]NegativeNegativeSouthview Medical CenterLaboratory - UrinalysisOrdered By: Lisa Johns on 37-78-2817Hfbnvmq casts LM Ql (Urine sed)0-8 [LPF]0-8[facility] CenterNitrite Test strip Ql (U)Ordered By: Lisa Johns on 33-04-9049Ywyitln Ql (U)NegativeNegSycamore Medical CenterProtein Auto test strip (U) [Mass/Vol]Ordered By: Lisa Johns on 24-72-9755Lmoxvhw (U) [Mass/Vol] NegativeNegChildren's Hospital of Columbuspecific gravity Auto test strip (U) [Rel density]Ordered By: Lisa Johns on 20-18-6008Grorcmuo gravity (U) [Rel density]1.0111.001-1.030[facility] Hospitalquamous epithelial cells detection in urine sediment by light microscopyOrdered By: Lisa Johns on 93-70-4740Jyobqxzdrh cells.squamous LM Ql (Urine sed)0-1 [HPF] 0-2FTrinity Health System Twin City Medical CenterUrine Cultureon 38-60-4981Tozmb Culture >100,000North [place] Other Urine Culture<16SusceptibleNorth [employer] Other Urine Culture<8/4SusceptibleNorth [employer] Other Urine Culture<4SusceptibleNorth [employer] Other Urine Culture<2SusceptibleNorth [employer] Other Urine Culture<1SusceptibleNorth [employer] Other Urine Culture<0.25SusceptibleNorth [employer] Other Urine Culture<0.5SusceptibleNorth [employer] Other Urine Culture<32SusceptibleNorth [employer] Other Urine Culture<0.5/9.5SusceptibleNorth [employer] Other urine bacteria detection by automated methodOrdered By: Lisa Johns on 21-56-9217Jzrffpkd Auto Ql (U)4+None SeenSouthview Medical CenterUrine clarity by refractometry automatedOrdered By: Lisa Johns on 09-67-8414Sixjdfh Refractometry automated (U)ClearClear [facility] CenterUrine culture routineOrdered By: Lisa Johns on 49-25-4631Qtvymmha identified Cx Nom (U)Klebsiella pneumoniaeSouthview Medical CenterUrine glucose measurement by automated test strip (mass/volume)Ordered By: Lisa Johns on 81-87-8440Ckgxmsc Auto test strip (U) [Mass/Vol]Normal mg/dLNormBrown Memorial HospitalUrine hemoglobin detection by automated test stripOrdered By: Lisa Johns on 07-07-2022 Hemoglobin Auto test strip Ql (U)2+NegativeSouthview Medical Center Urine leukocyte esterase detection by automated test stripOrdered By: Lisa Johns on 21-89-7832Wfrtojsca esterase Auto test strip Ql (U)3+NegativeSouthview Medical CenterUrobilinogen Auto test strip (U) [Mass/Vol]Ordered By: Lisa Johns on 21-94-3950Dpdgtgpkgyao (U) [Mass/Vol]Normal mg/dLNormal [facility] CenterpH Auto test strip (U)Ordered By: Lisa Johns on 65-72-1362jB (U)5.5 [pH]5.0-9.0[facility] CenterAlbumin [Mass/volume] in Body fluidOrdered By: Shahid Ritter on 36-82-4913Zxukwvr (Body fld) [Mass/Vol]4.2 g/dL3.2-5.5FTrinity Health System Twin City Medical CenterAlkaline phosphatase [Enzymatic activity/volume] in Serum or PlasmaOrdered By: Shahid Ritter on 05-14-9643RVG [Catalytic activity/Vol]60 U/P61-20QxxjpbxlgSouthview Medical CenterAspartate aminotransferase [Enzymatic activity/volume] in Serum or Plasma Ordered By: Shahid Ritter on 44-30-0158ACS [Catalytic activity/Vol]37 U/L10-42 [facility] CenterBasophils Auto (Bld) [#/Vol]Ordered By: Shahid Ritter on 89-26-8346Qxsdnzkrj (Bld) [#/Vol]0.1 10*3/uL0.0-0.2FTrinity Health System Twin City Medical CenterBasophils/100 WBC Auto (Bld)Ordered By: Shahid Ritter on 06-26-2022 Basophils/100 WBC (Bld)0.9 %.[facility] Medical CenterBilirubin.total [Mass/volume] in Serum or PlasmaOrdered By: Shahid Ritter on 42-53-0380Fwymceaoa [Mass/Vol]0.9 mg/dL0.3-1.2FTrinity Health System Twin City Medical CenterCalcium [Mass/volume] in Serum or PlasmaOrdered By: Shahid Ritter on 28-59-0716Hmhqrau [Mass/Vol]9.6 mg/dL8.2-10.2FTrinity Health System Twin City Medical CenterCarbon dioxide, total [Moles/volume] in Serum or PlasmaOrdered By: Shahid Ritter on 87-65-6712ZD4 [Moles/Vol]25.2 mmol/L22.0-30.0[facility] CenterChloride [Moles/volume] in Serum or PlasmaOrdered By: Shahid Ritter on 08-14-1199Lrjlzlbf [Moles/Vol]103 mmol/L81-435WqczsiyndSouthview Medical CenterCreatine kinase [Enzymatic activity/volume] in Serum or PlasmaOrdered By: Shahid Ritter on 05-46-7651DD [Catalytic activity/Vol]134 U/I52-965ZqdhtzoxhSouthview Medical CenterCreatine kinase.MB [Mass/volume] in Serum or PlasmaOrdered By: Shahid Ritter on 85-23-7815LF.MB [Mass/Vol]1.4 ng/mL0.6-6.3FTrinity Health System Twin City Medical Center Creatinine and Glomerular filtration rate.predicted panel (S/P/Bld)Ordered By: Shahid Ritter on 37-91-7716Mhrqykzber [Mass/Vol]0.84 mg/dL0.44-1.03[facility] CenterEosinophils Auto (Bld) [#/Vol]Ordered By: Shahid Ritter on 17-94-5204Swarnvkknkd (Bld) [#/Vol]0.2 10*3/uL0.0-0.45[facility] CenterEosinophils/100 WBC Auto (Bld)Ordered By: Shahid Ritter on 06-26-2022 Eosinophils/100 WBC (Bld)2.5 %.[facility] Medical CenterErythrocyte distribution width Auto (RBC) [Ratio]Ordered By: Shahid Ritter on 06-26-2022 Erythrocyte distribution width (RBC) [Ratio]12.6 %11.9-15.3FTrinity Health System Twin City Medical CenterEstimated glomerular filtration rate (GFR) non- Ordered By: Shahid Ritter on 72-10-1072DLE/1.73 sq M.predicted among non-blacks MDRD (S/P/Bld) [Vol rate/Area]> 60 mL/MinSouthview Medical Center Globulin Calc (S) [Mass/Vol]Ordered By: Shahid Ritter on 44-05-6120Qoyscgkb (S) [Mass/Vol]2.6 g/dLSouthview Medical CenterGlucose [Mass/volume] in Serum or PlasmaOrdered By: Shahid Ritter on 17-21-9914Sarpzvm [Mass/Vol]105 mg/dL 70-100[facility] CenterComment on above:ADA recommended reference rangeRandom Glucose Reference Range is dependent on time and content of last meal. Glucose of more than 200 mg/dL in a nonstressed, ambulatory subject supports the diagnosisof Diabetes Mellitus.Hematocrit Auto (Bld) [Volume fraction]Ordered By: Shahid Ritter on 96-21-7367Rkbztbbtvn (Bld) [Volume fraction] 40.4 %34.0-46.4FTrinity Health System Twin City Medical CenterHemoglobin [Mass/volume] in BloodOrdered By: Shahid Ritter on 58-95-8961Onbomurrsl (Bld) [Mass/Vol]13.9 g/dL 11.8-15.4FTrinity Health System Twin City Medical CenterLeukocytes [#/volume] corrected for nucleated erythrocytes in Blood by Automated counOrdered By: Shahid Ritter on 68-35-7668YFT corrected for nucl RBC Auto (Bld) [#/Vol]5.9 10*3/uL3.8-11.6 [facility] CenterLymphocytes Auto (Bld) [#/Vol]Ordered By: Shahid Ritter on 51-69-0761Zhatohaugac (Bld) [#/Vol]3.1 10*3/uL1.00-4.8[facility] CenterLymphocytes/100 WBC Auto (Bld)Ordered By: Shahid Ritter on 77-69-3191Zhueulknpzr/100 WBC (Bld)51.7 %.[facility] Auto (RBC) [Entitic mass]Ordered By: Shahid Ritter on 21-94-8202GUR (RBC) [Entitic mass]30.9 pg24.7-34.3FTrinity Health System Twin City Medical CenterMCHC Auto (RBC) [Mass/Vol] Ordered By: Shahid Ritter on 42-71-1537IQYZ (RBC) [Mass/Vol]34.3 g/dL32.0-35.0 [facility] CenterMCV Auto (RBC) [Entitic vol]Ordered By: Shahid Ritter on 31-75-0961OXH (RBC) [Entitic vol]90.0 gE25-948LatgtcaolSouthview Medical CenterMonocyte distribution width [Entitic volume] in Blood by Automated Ordered By: Shahid Ritter on 10-13-8046Jxkllvca distribution width Auto (Bld) [Entitic vol]16.62 %0.00-20.00[facility] CenterMonocytes Auto (Bld) [#/Vol]Ordered By: Shahid Ritter on 22-31-8841Migogblbr (Bld) [#/Vol]0.4 10*3/uL0.0-0.8[facility] CenterMonocytes/100 WBC Auto (Bld) Ordered By: Shahid Ritter on 06-86-5262Htyeipiyj/100 WBC (Bld)6.9 %.[facility] Medical CenterNeutrophils Auto (Bld) [#/Vol]Ordered By: Shahid Ritter on 45-39-3438Ghgimuhukeq (Bld) [#/Vol]2.3 10*3/uL1.8-7.7FTrinity Health System Twin City Medical CenterNeutrophils/100 WBC Auto (Bld)Ordered By: Shahid Ritter on 06-26-2022 Neutrophils/100 WBC (Bld)38.0 %.[facility] CenterNo Panel InformationOrdered By: Shahid Ritter on 98-82-6179Gbnoaftfg GFR ()> 60 mL/MinSouthview Medical CenterComment on above:GFR estimated reference range: According to KDOQI guidelines, <60 ml/min/1.73m2 is sufficient todiagnose a patient with chronic kidney disease.Pharmacy Creatinine Clearance (Chem88.58[facility] Medical CenterNucleated erythrocytes [Presence] in Blood by Automated countOrdered By: Shahid Ritter on 82-29-0500Axwrcmkxr RBC Auto Ql (Bld)0.2 /100{WBC}0-0.5FTrinity [facility] CenterPlatelet mean volume Auto (Bld) [Entitic vol]Ordered By: Shahid Ritter on 15-79-6229Iryenujq mean volume (Bld) [Entitic vol]7.7 fL6.3-10.7FTrinity Health System Twin City Medical CenterPlatelets Auto (Bld) [#/Vol]Ordered By: Shahid Ritter on 06-67-8094Cmshclmwv (Bld) [#/Vol]296 10*3/qQ729-980EovrvhztrSouthview Medical CenterPotassium [Moles/volume] in Serum or PlasmaOrdered By: Shahid Ritter on 22-30-5389Dozhfxbyr [Moles/Vol]3.6 mmol/L 3.5-5.1FTrinity Health System Twin City Medical CenterProtein [Mass/volume] in Serum or Plasma Ordered By: Shahid Ritter on 46-98-9219Etwhpgu [Mass/Vol]6.8 g/dL6.1-7.9Southview Medical CenterRBC Auto (Bld) [#/Vol]Ordered By: Shahid Ritter on 85-41-6126YPX (Bld) [#/Vol]4.49 10*6/uL3.60-5.00Mer[facility] Tiffin Hospitalerum or plasma alanine aminotransferase measurement without P-5'-P (enzymatic activiOrdered By: Shahid Ritter on 32-79-6855ZJE No additional P-5'-P [Catalytic activity/Vol]48 U/J02-42SwvblocsnMercy Health Tiffin Hospitalerum or plasma albumin/globulin mass ratioOrdered By: Shahid Ritter on 06-26-2022 Albumin/Globulin [Mass ratio]1.6 {ratio}[facility] Hospitalerum or plasma anion gap determinationOrdered By: Shahid Ritter on 84-00-8502Ilrib gap [Moles/Vol]12.4 mmol/L6.0-15.0Mer[facility] Tiffin Hospitalerum or plasma creatine kinase MB (CKMB)/total creatine kinase (CK) ratio by calculaOrdered By: Shahid Ritter on 83-89-3678AG.MB Calc [Catalytic fraction]1.0 %0.00-2.50[facility] Hospitalodium [Moles/volume] in Serum or PlasmaOrdered By: Shahid Ritter on 65-91-2334Lloxul [Moles/Vol]137 mmol/V843-123IsomjarciSouthview Medical CenterTROPONIN, HIGH SENSITIVITYon 97-35-9230PJJWBT0.9 pg/mLNormal4.0-51.3The [facility] Allen HospitalComment on above:Result Comment: CUT-OFF POINTS HAVE BEEN ESTABLISHED BASED ON THE FOURTH UNIVERSAL DEFINITIONS OF MYOCARDIAL INFARCTION. THE UPPER REFERENCE LIMIT (URL) OF TROPONIN, DEFINED THE 99TH PERCENTILE OF cTnI DISTRIBUTION IN A REFERENCE POPULATION, HAS BEEN CONFIRMED THE DECISION THRESHOLD FOR MD DIAGNOSIS.Performed By: #### HSTROPN #### [facility] [address] [place] [address] Dr. Madiha Benitezcardiac [Mass/volume] in Serum or Plasma by High sensitivity methodOrdered By: Shahid Ritter on 45-33-2914Mnghlzzv I.cardiac High sensitivity method [Mass/Vol]< 3 pg/mL0-15Southview Medical CenterUrea nitrogen [Mass/volume] in Serum or PlasmaOrdered By: Shahid Ritter on 06-26-2022 Urea nitrogen [Mass/Vol]9 mg/dL9-[facility]view Medical CenterWBC Auto (Bld) [#/Vol]Ordered By: Shahid Ritter on 38-92-7650PVS (Bld) [#/Vol]5.9 10*3/uL 3.8-11.6FTrinity Health System Twin City Medical CenterMM diagnostic mammo BI w/CADon 59-49-9747SV diagnostic mammo BI w/CADHocking Valley Community Hospital [employer] Other MM diagnostic mammo BI w/CADUnityPoint Health-Blank [facility] [employer] Other MM diagnostic mammo BI w/[id number] [place] [address] [employer] Other MM diagnostic mammo BI w/[place], [place] [address] [employer] Other MM diagnostic mammo BI w/CADUltrasSymmes Hospital [employer] Other MM diagnostic mammo BI w/CADSignedMckeesport [employer] Other MM diagnostic mammo BI w/CADPatient: SerinaKarolina Ángel MR#: [id number] [employer] Other MM diagnostic mammo BI w/NQW73Yuvye [employer] Other MM diagnostic mammo BI w/CADDOB: 1985 Acct:[id number] [employer] Other MM diagnostic mammo BI w/CADAge/Sex: 36 / F ADM Date: 06/18/22[place] [employer] Other MM diagnostic mammo BI w/CADLoc: [place] Room: Type: [facility] [employer] Other MM diagnostic mammo BI w/CADAttending Dr: Lisa Johns [facility] [employer] Other MM diagnostic mammo BI w/CADOrdering Provider: Lisa Johns, [facility] [employer] Other MM diagnostic mammo BI w/CADDate of Service: 06/18/22 [facility] [employer] Other MM diagnostic mammo BI w/CADAccession #: ([id number]) US/US breast LT limited: Breast pain, [facility] [employer] Other MM diagnostic mammo BI w/CAD([id number]) MM/MM diagnostic mammo BI w/CAD: Breast pain, [facility] [employer] Other MM diagnostic mammo BI w/CADCopies to: Lisa Johns, [facility] [employer] Other MM diagnostic mammo BI w/CADBilateral Diagnostic Full Field digital mammogram with 3-D imaging.Buffer Other MM diagnostic mammo BI w/CADFull field digital CC and MLO imaging performed. CAD utilized.[place] [employer] Other MM diagnostic mammo BI w/CADCOMPARISON: [facility] [employer] Other MM diagnostic mammo BI w/CADHISTORY:Left breast pain superiorly.Buffer Other MM diagnostic mammo BI w/CADFINDINGS: Scattered fibroglandular densities of the breast parenchyma identified. No [facility] [employer] Other MM diagnostic mammo BI w/CADarchitectural distortion, developing focal breast asymmetry or developing malignant calcificationsNoresearch belton hospital [employer] Other MM diagnostic mammo BI w/CADidentified. Benign calcification identified.Buffer Other MM diagnostic mammo BI w/CADTargeted left breast ultrasound performed. The mildly complex anechoic cyst with thin septation and Buffer Other MM diagnostic mammo BI w/CADmeasures 7 x 2 x 4 mm. This is at the 1:00 position 2 cm from the nipple.Buffer Other MM diagnostic mammo BI w/CADORDER #: [id number] US/US breast LT limitedNort [employer] Other MM diagnostic mammo BI w/CADIMPRESSION:No mammographic evidence of malignancy. Mildly complex cystic nodule left breast.Buffer Other MM diagnostic mammo BI w/CADTargeted left breast ultrasound in 6 months recommended.Buffer Other MM diagnostic mammo BI w/CADRESULT CODE: 3Nort [employer] Other MM diagnostic mammo BI w/CADProbably Benign Finding Short Term Follow-UpNoresearch belton hospital [employer] Other MM diagnostic mammo BI w/CADDENSITY CODE: 2 (approximately 25-50% glandular)Buffer Other MM diagnostic mammo BI w/CADFOLLOW UP: 6MNoresearch belton hospital [employer] Other MM diagnostic mammo BI w/CADTHE FALSE-NEGATIVE RATE OF MAMMOGRAPHY IS APPROXIMATELY 10%.Buffer Other MM diagnostic mammo BI w/CADIMAGING OF A PALPABLE ABNORMALITY MUST BE BASED ON CLINICAL GROUNDS.Buffer Other MM diagnostic mammo BI w/CADPATIENT WAS ENTERED INTO A REMINDER SYSTEM WITH A TARGET DUE DATE FOR THE NEXT MAMMOGRAM.Buffer Other mm diagnostic mammo BI w/CADImpression dictated by: Ming Au M.D.06/18/2022 8:47 [facility] [employer] Other mm diagnostic mammo BI w/CADDictation Location: [address] [employer] Other mm diagnostic mammo BI w/CADTech: Cassandra Melton; Josefa AmandaCox Branson [employer] Other mm diagnostic mammo BI w/CADTranscribed By: ODALYS 06/18/[address] [place] [address] [employer] Other mm diagnostic mammo BI w/CADDictated By: Ming Au DO 06/18/[address] [place] [address] [employer] Other mm diagnostic mammo BI w/CADSigned By:Buffer Other mm diagnostic mammo BI w/CAD06/18/[address] [place] [address] [employer] Other COVID + FLU Quick Testingon 99-94-7586TGWV-CoV-2 (COVID-19) RNA KIRSTIN+probe Ql (Unsp spec)NegativeMckeesport [employer] Other COVID + FLU Quick TestingNegativeMckeesport [employer] Other Quick Strepon 04-28-2022. pyogenes Org specific cx Ql (Throat)NegativeMckeesport [employer] Other Quick StrepYangaroo Other Basophils Auto (Bld) [#/Vol]Ordered By: Lisa Johns on 54-39-2197Bvujydzfq (Bld) [#/Vol]0.0 10*3/uL0.0-0.2FTrinity Health System Twin City Medical CenterBasophils/100 WBC Auto (Bld)Ordered By: Lisa Johns on 84-10-9153Myvhdswrg/100 WBC (Bld)0.3 %.[facility]view Medical CenterBody fluid albumin measurement (mass/volume)Ordered By: Richard Wing on 04-23-2022 Albumin (Body fld) [Mass/Vol]4.3 g/dL3.2-5.5FTrinity Health System [facility] Cholesterol [Mass/volume] in Serum or PlasmaOrdered By: Richard Wing on 17-47-4808Ojwvnaxebfd [Mass/Vol]190 mg/rV446-773EkkbgzrndSouthview Medical CenterComment on above:Chol less than 200 mg/dl low riskChol 201-239 mg/dl borderline riskChol 240 mg/dl and greater high riskCholesterol in LDL Calc [Mass/Vol]Ordered By: Richard Wing on 15-10-3086Ynskepjtsfx in LDL [Mass/Vol] 122 mg/dL0-100Southview Medical CenterComment on above:LDL ATP III CLASSIFICATIONLDL less than 100 mg/dL OptimalLDL 100-129 mg/dL Near or above njlyafcETR859-860 mg/dL Borderline highLDL 160-189 mg/dL HighLDL greater than 189 mg/dL Very highCholesterol in VLDL Calc [Mass/Vol]Ordered By: Richard Wing on 77-84-1270Lwaeqmqieiv in VLDL [Mass/Vol]18 mg/dLSouthview Medical CenterCreatinine and Glomerular filtration rate.predicted panel (S/P/Bld)Ordered By: Richard Wing on 71-63-3337Svskwsiuup [Mass/Vol]0.89 mg/dL0.44-1.03 [facility] Medical CenterEosinophils Auto (Bld) [#/Vol]Ordered By: Lisa Johns on 84-59-8507Vzpjgjzntfx (Bld) [#/Vol]0.1 10*3/uL0.0-0.45 [facility] CenterEosinophils/100 WBC Auto (Bld)Ordered By: Lisa Johns on 60-97-2963Hffkdtntrci/100 WBC (Bld)1.8 %.[facility] Medical CenterErythrocyte distribution width Auto (RBC) [Ratio]Ordered By: Lisa Johns on 84-96-3415Zejazssjmpq distribution width (RBC) [Ratio]11.6 % 11.9-15.3FTrinity Health System Twin City Medical CenterEstimated glomerular filtration rate (GFR) non- AmericanOrdered By: Richard Wing on 39-80-2114XJJ/1.73 sq M.predicted among non-blacks MDRD (S/P/Bld) [Vol rate/Area]> 60 mL/MinSouthview Medical CenterGlobulin Calc (S) [Mass/Vol]Ordered By: Richard Wing on 33-51-8972Nquggzyv (S) [Mass/Vol]2.0 g/dLSouthview Medical Center Hematocrit Auto (Bld) [Volume fraction]Ordered By: Lisa Johns on 04-23-2022 Hematocrit (Bld) [Volume fraction]40.6 %34.0-46.4FTrinity Health System Twin City Medical CenterHemoglobin [Mass/volume] in BloodOrdered By: Lisa Johns on 04-23-2022 Hemoglobin (Bld) [Mass/Vol]13.8 g/dL11.8-15.4FTrinity Health System [facility] Center Leukocytes [#/volume] corrected for nucleated erythrocytes in Blood by Automated counOrdered By: Lisa Johns on 63-62-3822MLP corrected for nucl RBC Auto (Bld) [#/Vol]5.1 10*3/uL3.8-11.6FTrinity Health System Twin City Medical CenterLymphocytes Auto (Bld) [#/Vol]Ordered By: Lisa Johns on 66-06-2793Wcuescthcpq (Bld) [#/Vol]2.6 10*3/uL1.00-4.8[facility]view Medical CenterLymphocytes/100 WBC Auto (Bld)Ordered By: Lisa Johns on 45-90-1409Lnfsxnlfcdp/100 WBC (Bld)50.5 %.[facility] Auto (RBC) [Entitic mass]Ordered By: Lisa Johns on 68-87-5310PTD (RBC) [Entitic mass]30.9 pg24.7-34.3FVan Wert County Hospital Auto (RBC) [Mass/Vol]Ordered By: Lisa Johns on 28-26-3835RRZZ (RBC) [Mass/Vol]34.1 g/dL32.0-35.0[facility] Medical CenterMCV Auto (RBC) [Entitic vol]Ordered By: Lisa Johns on 47-25-4720SPZ (RBC) [Entitic vol]90.7 mU24-502ZifdeffrnSouthview Medical CenterMonocytes Auto (Bld) [#/Vol]Ordered By: Lisa Johns on 95-60-0229Bdhmrgaly (Bld) [#/Vol]0.3 10*3/uL0.0-0.8[facility] Medical CenterMonocytes/100 WBC Auto (Bld) Ordered By: Lisa Johns on 13-00-1141Fswqnsuix/100 WBC (Bld)6.0 %.[facility]view Medical CenterNeutrophils Auto (Bld) [#/Vol]Ordered By: Lisa Johns on 30-11-7031Mozgtuhblyt (Bld) [#/Vol]2.1 10*3/uL1.8-7.7FTrinity Health System Twin City Medical CenterNeutrophils/100 WBC Auto (Bld)Ordered By: Lisa Johns on 53-54-8592Gtagsaeuvmv/100 WBC (Bld)41.4 %.[facility] Medical CenterNo Panel InformationOrdered By: Richard Wing on 34-94-5620Klxiedaxi GFR ()> 60 mL/MinSouthview Medical CenterComment on above:GFR estimated reference range: According to KDOQI guidelines, <60 ml/min/1.73m2 is sufficient todiagnose a patient with chronic kidney disease.Pharmacy Creatinine Clearance (ChemN/Providence HospitalNucleated erythrocytes [Presence] in Blood by Automated countOrdered By: Lisa Johns on 04-23-2022 Nucleated RBC Auto Ql (Bld)0.2 /100{WBC}0-0.5FTrinity Health System [facility] Platelet mean volume Auto (Bld) [Entitic vol]Ordered By: Lisa Johns on 53-73-9446Nhcivfcj mean volume (Bld) [Entitic vol]8.6 fL6.3-10.7[facility] CenterPlatelets Auto (Bld) [#/Vol]Ordered By: Lisa Johns on 39-01-4485Nvybfkyhz (Bld) [#/Vol]268 10*3/eZ778-787TohsuvntbSouthview Medical CenterProtein [Mass/volume] in Serum or PlasmaOrdered By: Richard Wing on 25-59-2869Nzhbocz [Mass/Vol]6.3 g/dL6.1-7.9[facility] Medical CenterRBC Auto (Bld) [#/Vol]Ordered By: Lisa Johns on 41-93-8587ATX (Bld) [#/Vol]4.48 10*6/uL3.60-5.00[facility] Hospitalerum or plasma alanine aminotransferase measurement without P-5'-P (enzymatic activiOrdered By: Ricahrd Wing on 08-43-9848BPC No additional P-5'-P [Catalytic activity/Vol]27 U/L 10-60[facility] Hospitalerum or plasma albumin/globulin mass ratioOrdered By: Richard Wing on 58-20-6989Duyuqrt/Globulin [Mass ratio]2.2 {ratio}[facility] Hospitalerum or plasma alkaline phosphatase measurement (enzymatic activity/volume)Ordered By: Richard Wing on 04-23-2022 ALP [Catalytic activity/Vol]44 U/X48-38GxfmsgcfyMercy Health Tiffin Hospitalerum or plasma anion gap determinationOrdered By: Richard Wing on 43-73-6106Phlyw gap [Moles/Vol]10.4 mmol/L6.0-15.0[facility] Hospitalerum or plasma aspartate aminotransferase measurement (enzymatic activity/volume)Ordered By: Richard Wing on 44-33-2332GGL [Catalytic activity/Vol]28 U/S32-86MakzgypxwMercy Health Tiffin Hospitalerum or plasma calcium measurement (mass/volume)Ordered By: Richard Wing on 18-21-1488Poqhywe [Mass/Vol]9.1 mg/dL8.2-10.2FOhio State Harding Hospitalerum or plasma chloride measurement (moles/volume) Ordered By: Richard Wing on 19-17-2053Tgyqehco [Moles/Vol]107 mmol/L95-114 [facility] Hospitalerum or plasma glucose measurement (mass/volume)Ordered By: Richard Wing on 60-23-9528Jdcmbos [Mass/Vol]80 mg/dL 70-100[facility] Medical CenterComment on above:ADA recommended reference rangeRandom Glucose Reference Range is dependent on time and content of last meal. Glucose of more than 200 mg/dL in a nonstressed, ambulatory subject supports the diagnosisof Diabetes Mellitus.Serum or plasma high density lipoprotein (HDL) cholesterol measurementOrdered By: Richard Wing on 29-01-3456Ogpkekdehdq in HDL [Mass/Vol]50 mg/iA07-93JysimlkklSouthview Medical CenterComment on above:HDL CHOL ATP-III CLASSIFICATION Cardiovascular RiskHDL > or equal to 60 mg/dL LOWHDL < 40 mg/dL HIGHSerum or plasma potassium measurement (moles/volume)Ordered By: Richard Wing on 67-87-7522Qdqwkwmbg [Moles/Vol]4.0 mmol/L3.5-5.1FOhio State Harding Hospitalerum or plasma sodium measurement (moles/volume)Ordered By: Richard Wing on 44-03-8683Hxnsaq [Moles/Vol]135 mmol/S908-175LobrptkvvMercy Health Tiffin Hospitalerum or plasma total bilirubin measurement (mass/volume)Ordered By: Richard Wing on 70-14-4518Sfbeoupdc [Mass/Vol]0.8 mg/dL0.3-1.2FOhio State Harding Hospitalerum or plasma total carbon dioxide measurement (moles/volume)Ordered By: Richard Wing on 30-53-9789DR8 [Moles/Vol]21.6 mmol/L22.0-30.0[facility] Serum or plasma total cholesterol/high density lipoprotein (HDL) cholesterol mass ratOrdered By: Richard Wing on 13-38-5662Yevbtxofxud.total/Cholesterol in HDL [Mass ratio]3.8 {ratio}<5.0[facility] Hospitalerum or plasma urea nitrogen measurement (mass/volume)Ordered By: Richard Wing on 04-23-2022 Urea nitrogen [Mass/Vol]8 mg/dL9-23[facility] Medical CenterTSH DL <= 0.005 mIU/L QnOrdered By: Lisa Treviñodaniel on 40-89-8855ZOT Qn1.08 m[IU]/L 0.45-5.33[facility] Medical CenterTriglyceride [Mass/volume] in Serum or PlasmaOrdered By: Richard Wing on 59-46-6786Vywedcdbtnih [Mass/Vol]91 mg/dL 35-149Southview Medical CenterComment on above:TRIG ATP III CLASSIFICATIONTRIG less than 150 mg/dL NormalTRIG 150-199 mg/dL Borderline highTRIG 200-500 mg/dL High TRIG greater than 500 mg/dL Very highStandard traceable to the Center for Disease Conrtrol and Prevention (CDC) test method. WBC Auto (Bld) [#/Vol]Ordered By: Lisa Johns on 37-89-5897EMX (Bld) [#/Vol] 5.1 10*3/uL3.8-11.6FTrinity Health System Twin City Medical CenterXR lumbar spine min 4V*on 95-33-0884JV lumbar spine min 4V*[facility] [employer] Other XR lumbar spine min 4V*[facility] [employer] Other XR lumbar spine min 4V*[address] [place] [address] [employer] Other XR lumbar spine min 4V*[place] [address]Rlt[place] [employer] Other XR lumbar spine min 4V*[facility] [employer] Other XR lumbar spine min 4V*[facility] [employer] Other XR lumbar spine min 4V*Patient: Karolina Smalls MR#: [id number] [employer] Other XR lumbar spine min 4V*[address] [place] [address] [employer] Other XR lumbar spine min 4V*: 1985 Acct:[id number] [facility] [employer] Other XR lumbar spine min 4V*Age/Sex: 36 / F ADM Date: 04/23/22[facility] Other XR lumbar spine min 4V*Loc: XDSHC Room: Type: [facility] Buffer Other XR lumbar spine min 4V*Attending Dr: Lisa Johns [facility]ENTERBuffer Other XR lumbar spine min 4V*Copies to: Lisa Johns, obiwon Other XR lumbar spine min 4V*Ordering Provider: Lisa Johns, ob[employer] Other XR lumbar spine min 4V*Date of Service: 04/23/22[employer] Other XR lumbar spine min 4V* XR/XR lumbar spine min 4V*: Lumbar degenerative disc diseaseYangaroo Other XR lumbar spine min 4V*LUMBAR SPINE - 6 views:Buffer Other XR lumbar spine min 4V*CLINICAL HISTORY: Low back pain for several days. No specific injury.Buffer Other XR lumbar spine min 4V*COMPARISON: 11/30/2017[employer] Other XR lumbar spine min 4V*Recumbent AP, lateral, both oblique and AP and lateral coned-down views of the lumbosacral junctionLake Regional Health SystemuTest Other XR lumbar spine min 4V*were obtained. Levoscoliotic curvature is again noted. There is no evidence of fracture. AlignmentYangaroo Other XR lumbar spine min 4V*is maintained on the lateral view. The disc spaces are normal in height. There is minimal endplateYangaroo Other XR lumbar spine min 4V*spurring. There is facet disease, greater distally. No pars defect is identified. The sacroiliacNoresearch belton hospital [employer] Other XR lumbar spine min 4V*joints are maintained. There are no paraspinal soft tissue abnormalities.Buffer Other XR lumbar spine min 4V* XR/XR lumbar spine min 4V*Buffer Other XR lumbar spine min 4V*IMPRESSION:Buffer Other XR lumbar spine min 4V*SCOLIOSIS AND MILD DEGENERATIVE CHANGESMckeesport [employer] Other XR lumbar spine min 4V*Impression dictated by: Zandra Barksdale M.D.04/23/2022 11:42 [facility] [employer] Other xr lumbar spine min 4V*Dictation Location: [place] [address] Buffer Other xr lumbar spine min 4V*Transcribed By: [facility] 04/23/22 [facility] HospitalBuffer Other xr lumbar spine min 4V*Dictated By: Zandra Barksdale MD 04/23/22 [facility] HealthBuffer Other xr lumbar spine min 4V*Signed By:Buffer Other xr lumbar spine min 4V*04/23/22 [facility] WestYang[facility]oo Other quick Strepon 02-13-2022. pyogenes Org specific cx Ql (Throat)PositiveMckeesport [employer] Other quick [facility] HospitalBuffer Other xr DEXA BONE DENSITYon 95-98-4383AG DEXA BONE DENSITY EXAMINATION: XR DEXA BONE DENSITY, 02/03/2022 8:39 AM EDT HISTORY: [...] Electronically authenticated by: KEITH TREJO Date: 2022-02-03 09:15NCommunity Memorial HospitalBacteria identified Anaer cx Nom (Unsp spec)Ordered By: Janina Soria on 25-08-1019Jxsfnphad microbial cultureNo Anaerobes Isolated 3 Days [facility] Medical CenterABO and Rh group post transfusion reaction Nom (Bld)Ordered By: Janina Soria on 17-34-2494Kzkegdxcofc observation Gram stain Nom (Unsp spec)[facility]view Medical CenterAngiotensin converting enzyme [Enzymatic activity/volume] in Cerebral spinal fluidOrdered By: Janina Soria on 14-51-8512Cpxoohcprit converting enzyme (CSF) [Catalytic activity/Vol]<1.5 U/L 0.0-2.5FTrinity Health System Twin City Medical CenterComment on above:Results of this test are labeled for research purposes onlyby the assay's plumber. The performa ncecharacteristics of this assay have not been established bythe plumber. The result should not be used fortreatment or for diagnostic purposes without confirmationof the diagnosis by another medically establisheddiagnostic product or procedure. The performancecharacteristics were determined by [employer]Performed at: [address] [id number] Director: Rene Holloway MD, Phone: [phone] burgdorferi DNA [Presence] in Unspecified specimen by Probe and target ampliOrdered By: Janina Soria on 01-23-2022. burgdorferi DNA KIRSTIN+probe Ql (Unsp spec)Negative NegativeSouthview Medical CenterComment on above:No B. burgdorferi DNA Detected.This test was developed and its performance characteristicsdetermined by [employer]. It has not been cleared or approvedby the Food and Drug Administration. The FDA hasdetermined that such clearance or approval is notnecessary.Performed at: - [facility] [place], [place] [id number] Director: Rene Holloway MD, Phone: [phone] fluid post-centrifugation appearance determinationOrdered By: Janina Soria on 52-62-5875Beodihathm (Spun CSF)ColorlessColorlessSouthview Medical CenterCerebrospinal fluid sample tube volume measurementOrdered By: Janina Soria on 53-96-4523Boguzaqn volume (CSF)21.5 mLSouthview Medical CenterColor CSFOrdered By: Janina Soria on 30-84-4979Tlwka (CSF)Colorless ColorlessSouthview Medical CenterManual cerebrospinal fluid erythrocytes count (number/volume)Ordered By: Janina Soria on 71-54-1815CFB Manual cnt (CSF) [#/Vol]1 /[facility] CenterCommclaren central [place] on above: The reference interval and other method performance specifications have not been established for this body fluid. The test result must be integrated into the clinical context for interpretation.No Panel InformationOrdered By: Janina Soria on 29-75-1594BEJ AppearanceClearClearSouthview Medical CenterCSF Lzjziupaarz5DxzaebnioSouthview Medical CenterComment on above:The reference interval and other method performance specifications have not been established for this body fluid. The test result must be integrated into the clinical context for interpretation.CSF Emvrvso20 mg/iP62-54PoisduuxaDayton VA Medical CenterF Dvkspapkgun1BgirmymzqSouthview Medical CenterComment on above:The reference interval and other method performance specifications have not been established for this body fluid. The test result must be integrated into the clinical context for interpretation.CSF Bshcrlubr8JlnkyqoxkSouthview Medical CenterComment on above:The reference interval and other method performance specifications have not been established for this body fluid. The test result must be integrated into the clinical context for interpretation.CSF Neutrophils0 [facility]view Medical CenterComment on above:The reference interval and other method performance specifications have not been established for this body fluid. The test result must be integrated into the clinical context for interpretation.CSF Total Cells Cxvszfq16UgcbeylfgMcCullough-Hyde Memorial Hospital Total Fpkfikn91 mg/hR31-32OgkavcaqfMcCullough-Hyde Memorial Hospital Tube NumberTube number: 3[facility] Medical CenterNucleated cells [#/volume] in Cerebral spinal fluid by Manual countOrdered By: Janina Estella on 75-15-3227Qepqvdvlg cells Manual cnt (CSF) [#/Vol]0.001 10*3/uL0-5FTrinity Health System [facility] PAP ACOG PANEL 2: 30 to 65on 66-35-2579DFK AptimaPositiveAbnormalNegativeGlenbeigh HospitalComment on above:Result Comment: This nucleic acid amplification test detects fourteen high-risk HPV types (16,18,31,33,35,39,45,51,52,56,58,59,66,68) without differentiation. Performed at: =GPerformed By: #### [id number] #### [facility] [address] [address] [address] Madiha GoinsHPV Genotype 16NegativeNormalNegativeGlenbeigh HospitalComment on above:Result Comment: Performed at: =GPerformed By: #### [id number] #### [facility] [address] [address] [address] Madiha GoinsHPV Genotype 18,45NegativeNormalNegativeGlenbeigh Hospital Comment on above:Result Comment: Performed at: =GPerformed By: #### [id number] #### [facility] [address] [address] [address] Madiha Goins..NormalGlenbeigh HospitalComment on above:Result Comment: Performed at: WBPerformed By: #### [id number] #### [facility] [facility] [address] [address] [address] Madiha GoinsAge Gdln OG Szpeees73-86RvwnesBcjNewark HospitalComment on above:Performed By: #### [id number] #### [facility] [address] [address] [address] Madiha GoinsDIAGNOSIS:CommentMercy HealthComment on above: Result Comment: NEGATIVE FOR INTRAEPITHELIAL LESION OR MALIGNANCY. Performed at: WBPerformed By: #### [id number] #### [facility] [address] [address] [address] Madiha GoinsMethodology:CommentOhioHealth Riverside Methodist Hospital on above: Result Comment: This liquid based ThinPrep(R) pap test was screened with the use of an image guided system. Performed at: WBPerformed By: #### [id number] #### [facility] [address] [place] [address] Dr. Madiha GoinsNote:CommentOhioHealth Riverside Methodist Hospital on above:Result Comment: The Pap smear is a screening test designed to aid in the detection of premalignant and malignant conditions of the uterine cervix. It is not a diagnostic procedure and should not be used as the sole means of detecting cervical cancer. Both false-positive and false-negative reports do occur. . Performed at: WBPerformed By: #### [id number] #### [facility] [address] [place] [address] Dr. Madiha GoinsPerformed by:CommentOhioHealth Riverside Methodist Hospital on above: Result Comment: Maria Esther Maldonado, Programming Director (ASCP) Performed at: WBPerformed By: #### [id number] #### [facility] [address] [place] [address] Dr. Madiha GoinsSpecimen adequacy:CommentOhioHealth Riverside Methodist Hospital on above:Result Comment: Satisfactory for evaluation. No endocervical component is identified. Performed at: WBPerformed By: #### [id number] #### [facility] [address] [place] [address] Dr. Madiha GoinsA1C HEMOGLOBINon 77-77-1711OlV4v (Bld) [Mass fraction]5.0 %[facility] [employer] Other Complete Blood Count Auto Diffon 61-53-8243Jbtsofanx (Bld) [#/Vol]0.761763390 10*3/uLNormal0.0-0.2 10*3/uLNort [employer] Other Basophils/100 WBC (Bld)1.300 %. %[facility] [employer] Other Eosinophils (Bld) [#/Vol]0.436378047 10*3/uLNormal0.0- 0.45 10*3/[employer] Other Eosinophils/100 WBC (Bld)3.900 %. %[employer] Other Erythrocyte distribution width (RBC) [Ratio]12.200 % Fjrpvq22.9-15.3 %[employer] Other Hematocrit (Bld) [Volume fraction]39.800 %Rugkwj90.0- 46.4 %[employer] Other Hemoglobin (Bld) [Mass/Vol]14.118988 g/kRUtksdd01.8- 15.4 g/dLYangaroo Other Lymphocytes (Bld) [#/Vol]2.256446722 10*3/uLNormal 1.00-4.8 10*3/[employer] Other Lymphocytes/100 WBC (Bld)48.700 %. %[employer] Other MCH (RBC) [Entitic mass]31.1000 ywJanrny90.7-34.3 pg [employer] Other MCV (RBC) [Entitic vol]88.0000 bEWsobox32-893 fLCoNarrative [employer] Other Monocytes (Bld) [#/Vol]0.849289489 10*3/uLNormal0.0- 0.8 10*3/[employer] Other Monocytes/100 WBC (Bld)6.600 %. %[employer] Other Neutrophils (Bld) [#/Vol]1.690804773 10*3/uLNormal1.8- 7.7 10*3/[employer] Other Neutrophils/100 WBC (Bld)39.500 %. %[employer] Other Platelet mean volume (Bld) [Entitic vol]7.9000 fL Normal6.3-10.7 fLYangaroo Other Platelets (Bld) [#/Vol]292 10*3/jXMxacfw167-657 10*3/[employer] Other RBC (Bld) [#/Vol]4.9421385900 10*6/uLNormal3.60-5.00 10*6/[employer] Other WBC (Bld) [#/Vol]4.024914229 10*3/uLNormal3.8-11.6 10*3/[employer] Other Complete Blood Count Auto Diff4.9 10*3/uLNormal4.5- 11.0 10*3/[employer] Other Complete Blood Count Auto Diff35.3 g/nQJmyj06.0-35.0 g/dLYangaroo Other Complete Blood Count Auto Diff0.1 %Normal0-0.5 %[employer] Other Comprehensive Metabolic Panelon 10-33-2185Vkegmup [Mass/Vol]4.194672 g/dLNormal3.2-5.5 g/dLYangaroo Other albumin/Globulin [Mass ratio]1.8 {ratio}[employer] Other aLP [Catalytic activity/Vol]70 U/BAmkduc56-12 U/[employer] Other aLT [Catalytic activity/Vol]49 U/AYdtnil45-21 U/[employer] Other aST [Catalytic activity/Vol]39 U/TMrejyb95-92 U/LNpemiscot memorial health systems [employer] Other Bilirubin [Mass/Vol]1.3784052 mg/dLNormal0.3-1.2 mg/dL [facility] [employer] Other Calcium [Mass/Vol]9.2151369 mg/dLNormal8.2-10.2 mg/dL [facility] [employer] Other Chloride [Moles/Vol]104 mmol/JJkyjxa11-922 mmol/[facility] [employer] Other CO2 [Moles/Vol]23.58569290 mmol/JPcnuqi99.0-30.0 mmol/[facility] [employer] Other Creatinine [Mass/Vol]1.29143316 mg/dLNormal0.44-1.03 mg/dLMckeesport [employer] Other Glucose [Mass/Vol]101 mg/kPRymi82-956 mg/dLMckeesport [employer] Other Potassium [Moles/Vol]4.49899183 mmol/LNormal3.5-5.1 mmol/[facility] [employer] Other Protein [Mass/Vol]6.827117 g/dLNormal6.1-7.9 g/dLMckeesport [employer] Other Sodium [Moles/Vol]137 mmol/QDocvad408-228 mmol/[facility] [employer] Other Urea nitrogen [Mass/Vol]11 mg/dLNormal9-23 mg/dLMckeesport [employer] Other Comprehensive Metabolic Panel> 60[facility] [employer] Other Comprehensive Metabolic Panel2.3 g/dLMckeesport [employer] Other HbA1c (Bld) [Mass fraction]on 99-35-3403Z1X HEMOGLOBIN [place] [employer] Other Lipid Panelon 49-59-8238Dsizakqpxfr [Mass/Vol]217 mg/xSPkvd401-964 mg/dLMckeesport [employer] Other Cholesterol in HDL [Mass/Vol]40 mg/qFTqfsux04-51 mg/dL [employer] Other Cholesterol in LDL Elph Qn147 mg/dLHigh0-100 mg/dL [place] [employer] Other Cholesterol.total/Cholesterol in HDL [Mass ratio]5.4 {ratio}<5.0[facility] [employer] Other Lipid Tnwti932 mg/gRRkcnxj07-418 mg/dLNoresearch belton hospital [employer] Other Lipid Panel29 mg/dLN[facility]search belton hospital [employer] Other Thyroid Stimulating Hormoneon 28-29-0287FWS Qn 1.80830112527 m[IU]/LNormal0.45-5.33 u[iU]/mLNpemiscot memorial health systems [employer] Other ECHO 2D W COLORFLOW DOPPLERon 91-53-1132GQLV 2D W COLORFLOW DOPPLERNoTrinity Health SystemUrgent Care and Emergency Departmenton 63-41-6736Ilsytq Care and Emergency DepartmentNormUniversity Hospitals TriPoint Medical CenterUrgent Care and Emergency DepartmentNoTrinity Health SystemUrgent Care and Emergency DepartmentNoTrinity Health System Urgent Care and Emergency DepartmentNormUniversity Hospitals TriPoint Medical CenterWRIST LT 3 OR MORE VIEWSon 60-96-5575AUCYN LT 3 OR MORE VIEWSPROCEDURE:WRIST LT 3 OR MORE VIEWS - 35819 CLINICAL:INJURY Special Instructions: = N TECHN IQUE:THREE OR MORE VIEWS OF THE LEFT WRIST COMPARISON:There are no recent comparison exams available at the time of dictation. FINDINGS:The examination fails to demonstrate evidence of an acute fracture. There is no widening of the scapholunate space. IMPRESSION:No radiographic evidence of an acutefracture. RECOMMENDATION:If the patient has snuffbox tenderness or persistent pain, a follow-up radiographic evaluation in 10-14 days, MRI, or three phase bone scan would be recommended to exclude anoccult fracture. Electronically signed by: Bebe Holland M.D., MBADate/time: 04-09-2017, 01:11 PM Final ReportNoTrinity Health SystemLT BREAST US - BCon 25-20-4602AT BREAST US - BCPATIENT HISTORY:Patient is postmenopausal.Family history of breast cancer at age 35 in maternal aunt. PHYSICAL FINDINGS:Patient complains of lumps bilateral breasts, and left breast larger than right. BREAST LEFT ULTRASOUND: 04/06/17 - 001Standard views.Technologist: Korin Mullins sonography of the breast was performed. No solid or cystic mass was identified.Palpable abnormalities of the breast or axilla that are sonographically occult should be managed clinically. BREAST RIGHT ULTRASOUND: 04/06/17 - 001Standard views.Technologist: Korin Mullins sonography of the breast was performed. No solid or cystic mass was identified.Palpable abnormalities of the breast or axilla that are sonographically occult should be managed clinically. ACR BI-RADS? ASSESSMENTS: NEGATIVE BI-RADS 1 (OVERALL)Left breast BUSL: Left breast is negative bi-rads 1.Right breast BUSR: Right breast is negative bi-rads 1. RECOMMENDATION:Routine screeningmammogram at age 40.Electronically signed and approved by: Orlando Foote D.O.April 06, 2017 9:57 Final ReportNoTrinity Health SystemRT BREAST US - BCon [id number] BREAST US - BCPATIENT HISTORY:Patient is postmenopausal.Family history of breast cancer at age 35 in maternal aunt. PHYSICAL FINDINGS:Patient complains of lumps bilateral breasts, and left breast larger than right. BREAST LEFT ULTRASOUND: 04/06/17 - Xftstucu views.Technologist: Korin Mullins sonography of the breast was performed. No solid or cystic mass was identified.Palpable abnormalities of the breast or axilla that are sonographically occult should be managed clinically. BREAST RIGHT ULTRASOUND: 04/06/17 - Crhcksvo views.Technologist: Korin Mullins sonography of the breast was performed. No solid or cystic mass was identified.Palpable abnormalities of the breast or axilla that are sonographically occult should be managed clinically. ACR BI-RADS? ASSESSMENTS: NEGATIVE BI-RADS 1 (OVERALL)Left breast BUSL: Left breast is negative bi-rads 1.Right breast BUSR: Right breast is negative bi-rads 1. RECOMMENDATION:Routine screeningmammogram at age 40.Electronically signed and approved by: Orlando Foote D.O.April 06, 2017 9:57 Final ReportNormal [facility] HospitalUrgent Care and Emergency Departmenton 03-06-2017 Urgent Care and Emergency DepartmentNormUniversity Hospitals TriPoint Medical CenterUrgent Care and Emergency DepartmentNoTrinity Health SystemGlucose FS UCUnc Health [facility] 60-84-6286Uczzopd mass mksd224 mg/sGPxdbqo81-173EmzszqghMarietta Memorial Hospital Comment on above:Result Comment: Testing performed at [address] [address]Performed By: #### GLUFS ####[facility] Laboratory ServicesDr. Lonnie Loya MD[address] [place], [place] [id number] Urgent Care and Emergency Departmenton 99-29-7248Trpldd Care and Emergency DepartmentNormUniversity Hospitals TriPoint Medical CenterUrgent Care and Emergency DepartmentNormUniversity Hospitals Tri[facility] Medical CenterUrgent Care and Emergency DepartmentNormUniversity Hospitals Tri[facility] Medical CenterUrgent Care and Emergency Department NormalMarietta Memorial HospitalUrgent Care and Emergency DepartmentNormal [facility] HospitalUrgent Care and Emergency Departmenton 02-12-2017 Urgent Care and Emergency DepartmentNormUniversity Hospitals TriPoint Medical CenterUrgent Care and Emergency DepartmentNoMer[facility] Noteon 68-66-3310TGP IP Note OR TranscriptionNormalMerDeWitt General HospitalHIM IP Note OR TranscriptionNormalC[facility] Provider Noteon 44-29-7478ILH IP Note OR TranscriptionNormalMercy [facility] Vital Signs Date TimeVital SignValuePerforming MsxpwejckDqhkcagv28-05-3064 22:50-0400Body yzrafe773.48 cmYoan Ivey MD Work Phone: [phone])[address]10-14-2025 22:50-0400 Body vtpohjtejbu07.3 [degF]Yoan Ivey MD Work Phone: [phone])[address] [place], [place] 8123710-14-2025 22:50-0400 Body ujvglq10.25 kgYoan Ivey MD Work Phone: [phone])[address] [place], [place] 812[address]10-14-2025 22:50-0400 Diastolic blood qeavhuyc78 mm[Hg]Yoan Ivey MD Work Phone: [phone])[address]10-14-2025 22:50-0400 Heart rate72 /Percy Ivey MD Work Phone: [phone])[address] [place], [place] 8123710-14-2025 22:50-0400 Respiratory rate18 /Percy Ivey MD Work Phone: [phone])[address] [place], [place] 812[address]10-14-2025 22:50-0400 SaO2% (BldA) [Mass fraction]97 %Yoan Ivey MD Work Phone: [phone])[address]10-14-2025 22:50-0400 Systolic blood attvbupe469 mm[Hg]Yoan Ivey MD Work Phone: [phone])[address] [place], [place] 8[address]09-18-2025 15:27-0400 Diastolic blood bqwgcoen23 mm[Hg][facility] NonstaffPremier Rhjwqr63-15-5916 15:27-0400Heart rate81 /minKing'S Daughters Medical Center NonstaffPremier Syqcuh31-95-6939 15:27-0400 Respiratory rate18 /minKing'S Daughters Medical Center NonstaffPremier Bdsrvj21-85-7610 15:27-6514PpG6% (BldA) [Mass fraction]98 %[facility] NonstaffPremier Xtdcun03-81-9919 15:27-0400 Systolic blood gowodhpq096 mm[Hg][facility] NonstaffPremier Usdpnb68-98-8721 11:38-0400Body lpfaqq272.8 cmZuni Comprehensive Health CenterffPremner Utljwe32-85-7775 11:38-0400 Body mass index (BMI) [Ratio]29.88 kg/m2[facility] NonstaffPremier Ccpfha45-21-6425 11:38-0400Body newgol26.3 kgKing'S Daughters Medical Center NonstaffPremner Qcnjoo89-73-6399 11:27-0400Body ncjenamkrkq40.71 [degF][facility] HospitaltaffPremner Qqcrta10-36-5420 15:26-0400Body mass index (BMI) [Ratio]30.12 kg/y9Zjbakgi Diallo DO Work Phone: [facility]08-28-2025 15:26-0400Body sbohyk80.7 kgMadisen Diallo DO Work Phone: [facility]08-28-2025 15:26-0400Heart rate74 /min Zenaida Landrum DO Work Phone: [address] [address]-28-2025 15:26-7877VkU6% (BldA) [Mass fraction]100 %Zenaida Landrum DO Work Phone: [facility]08-19-2025 13:30-0400Body kjuxjg516.8 [facility]08-19-2025 13:30-0400Body mass index (BMI) [Ratio] 28.26 kg/m2[facility]08-19-2025 13:30-0400Body fyvoqg16.22 kg [facility]08-19-2025 13:30-0400Respiratory rate18 /min[facility]06-04-2025 13:00-0400Diastolic blood esucrtxg90 mm[Hg] Infusion 6 Work Phone: [facility]06-04-2025 13:00-0400Heart rate69 /min Infusion 6 Work Phone: [facility]06-04-2025 13:00-0400Systolic blood dyumriuv579 mm[Hg]Infusion 6 Work Phone: [facility]06-03-2025 13:45-0400Diastolic blood mm[Hg]Infusion 6 Work Phone: [facility]06-03-2025 13:45-0400Heart rate71 /min Infusion 6 Work Phone: [facility]06-03-2025 13:45-0400Systolic blood gfufkbeu718 mm[Hg]Infusion 6 Work Phone: [facility]06-02-2025 15:39-0400Diastolic blood hemzxyek00 mm[Hg]Infusion 8 Work Phone: [facility]06-02-2025 15:39-0400Heart rate71 /min Infusion 8 Work Phone: [facility]06-02-2025 15:39-0400Systolic blood nuxhhrns185 mm[Hg]Infusion 8 Work Phone: [facility]05-27-2025 12:37-0400Diastolic blood cazqmmuo78 mm[Hg]Yoan Ivey MD Work Phone: [phone] [place], [place] [address]5-27-2025 12:37-0400 Heart rate70 /Percy Ivey MD Work Phone: [phone]05-27-2025 12:37-0400 Respiratory rate16 /Percy Ivey MD Work Phone: [phone] [place], [place] 0[address]5-27-2025 12:37-0400 SaO2% (BldA) [Mass fraction]96 %Yoan Ivey MD Work Phone: [phone] [place], [place] [address]5-27-2025 12:37-0400 Systolic blood fftvgpby264 mm[Hg]Yoan Ivey MD Work Phone: [phone])969-[address] [place], [place] [address]5-27-2025 11:23-0400 Body bxxpqwikwkp56.3 [degF]Yoan Ivey MD Work Phone: [phone] [place], [place] [address]5-27-2025 11:20-0400 Body jpcepw346.48 Ronny Ivey MD Work Phone: [phone]05-27-2025 11:20-0400 Body .6 kgYoan Ivey MD Work Phone: [phone])[address] [place], [place] [address]3705-23-2025 11:18-0400 Diastolic blood mm[Hg]Yoan Ivey MD Work Phone: [phone])[address] [place], [place] 8[address]05-23-2025 11:18-0400 Heart rate68 /Percy Ivey MD Work Phone: [phone])[address] [place], [place] 8[address]05-23-2025 11:18-0400 Respiratory rate18 /Percy Ivey MD Work Phone: [phone])[address] [place], [place] 8[address]05-23-2025 11:18-0400 SaO2% (BldA) [Mass fraction]97 %Yoan Ivey MD Work Phone: [phone])[address] [place], [place] 8[address]05-23-2025 11:18-0400 Systolic blood jwrnuwcp037 mm[Hg]Yoan Ivey MD Work Phone: [phone])[address] [place], [place] 8[address]05-23-2025 07:35-0400 Body ghifgfuwxjb41.8 [degF]Yoan Ivey MD Work Phone: [phone])[address] [place], [place] [address]05-23-2025 05:50-0400 Body yvaczu20.6 kgYoan Ivey MD Work Phone: [phone]05-22-2025 00:00-0400 Body qmiimm754.48 Ronny Ivey MD Work Phone: [phone])[address]03-27-2025 13:34-0400 Body fnuimy696.8 cmLisandro Gonsalez MD Work Phone: [facility]03-27-2025 13:34-0400Body mass index (BMI) [Ratio]27.93 kg/h7BdzvcqzkLisandro Gonsalez MD Work Phone: [facility]03-27-2025 13:34-0400Body temperature 97.2 [degF]Lisandro Gonsalez MD Work Phone: [facility]03-27-2025 13:34-0400Body sfulof50.4 kgLisandro Gonsalez MD Work Phone: [facility]03-27-2025 13:34-0400Diastolic blood aiocshyj82 mm[Hg]Lisandro Gonsalez MD Work Phone: [facility]03-27-2025 13:34-0400Heart rate78 /min Lisandro Gonsalez MD Work Phone: [facility]03-27-2025 13:34-7975KaU0% (BldA) [Mass fraction]99 %Lisandro Gonsalez MD Work Phone: [facility]03-27-2025 13:34-0400Systolic blood qvfdodof463 mm[Hg]Lisandro Gonsalez MD Work Phone: [facility]02-04-2025 15:04-0500Body mass index (BMI) [Ratio]29.84 kg/s9FajktrfSanford Medical Center BALL THREAD MACHINE TENDER.OPEN CLAIMS REPRESENTATIVE Work Phone: [phone]02-04-2025 15:04-0500Body ezssjk16.2 kgSanford Medical Center BALL THREAD MACHINE TENDER.OPEN CLAIMS REPRESENTATIVE Work Phone: [phone]02-04-2025 15:04-0500Heart rate68 /min [facility] BALL THREAD MACHINE TENDER.OPEN CLAIMS REPRESENTATIVE Work Phone: [phone]02-04-2025 15:04-1907OvM6% (BldA) [Mass fraction]99 %[facility] BALL THREAD MACHINE TENDER.OPEN CLAIMS REPRESENTATIVE Work Phone: [phone]01-24-2025 09:40-0500Body icddsm132.8 cmSanford Medical Center BALL THREAD MACHINE TENDER.OPEN CLAIMS REPRESENTATIVE Work Phone: [phone]01-24-2025 09:40-0500Body mass index (BMI) [Ratio]28.8 kg/o8BhhiaptSanford Medical Center BALL THREAD MACHINE TENDER.OPEN CLAIMS REPRESENTATIVE Work Phone: [facility]01-24-2025 09:40-0500Body wpqesv35.58 kgCaridadGundersen Lutheran Medical Center BALL THREAD MACHINE TENDER.[facility] Work Phone: [facility]01-24-2025 09:40-0500Heart rate75 /min CassandraGundersen Lutheran Medical Center BALL THREAD MACHINE TENDER.[facility] Work Phone: [phone]01-24-2025 09:40-7547EmL1% (BldA) [Mass fraction]100 %[facility] BALL THREAD MACHINE TENDER.OPEN CLAIMS REPRESENTATIVE Work Phone: [facility]01-10-2025 09:45-0500Body oucrsy329.8 cmGirgis Osiel DO Work Phone: [facility]01-10-2025 09:45-0500Body mass index (BMI) [Ratio]29.68 kg/d3Jjjwjb Osiel DO Work Phone: [facility]01-10-2025 09:45-0500Body qxuncm46.8 kgGirgis Osiel DO Work Phone: [facility]01-10-2025 09:45-0500Heart rate78 /min Osiel Osiel DO Work Phone: [facility]01-10-2025 09:45-5213SzZ6% (BldA) [Mass fraction]97 %Osiel Osiel DO Work Phone: [phone]11-09-2024 09:15-0500Body ubhntl848.48 cmGinger Bullimore SUPERVISOR [employer] Work Phone: [facility]11-09-2024 09:15-0500 Body mass index (BMI) [Ratio]29.2 kg/w0Kqtcgx Bullimore SUPERVISOR [employer] Work Phone: [facility]11-09-2024 09:15-0500 Body nssxltzmiuw54.2 [degF]Eli Bullimore SUPERVISOR [employer] Work Phone: [facility]11-09-2024 09:15-0500 Body .57 kgEli Antony SUPERVISOR [employer] Work Phone: [facility]11-09-2024 09:15-0500 Diastolic blood gzespalx74 mm[Hg]Eli Castroore SUPERVISOR [employer] Work Phone: [facility]11-09-2024 09:15-0500 Heart rate81 /minEli Castroore SUPERVISOR [employer] Work Phone: [facility]11-09-2024 09:15-0500 SaO2% (BldA) [Mass fraction]96 %Eli Antony SUPERVISOR [employer] Work Phone: [facility]11-09-2024 09:15-0500 Systolic blood eeejjnhv727 mm[Hg]Eli Castroore SUPERVISOR [employer] Work Phone: [facility]10-16-2024 09:41-0400 Body mass index (BMI) [Ratio]28.88 kg/g2Gxrhy Raj DO Work Phone: [facility]10-16-2024 09:41-0400Body gijsbr68.63 kgKelcleveland Dileep DO Work Phone: [phone]10-16-2024 09:41-0400Diastolic blood rhemcxfk09 mm[Hg]Josefa Pitts DO Work Phone: [phone]10-16-2024 09:41-0653DxW7% (BldA) [Mass fraction]100 %Josefa Pitts DO Work Phone: [phone]10-16-2024 09:41-0400Systolic blood xaawbqaw684 mm[Hg]Josefa Pitts DO Work Phone: [phone]09-30-2024 14:31-0400Body lrxajc350.48 cmDNP Lisa Johns Work Phone: [facility]09-30-2024 14:31-0400 Body huesqltgtjf63.7 [degF]DNP Lisa Kaple Work Phone: [phone] [place], [place] 940[address]09-30-2024 14:31-0400 Body kuzbgi47.84 kgDNP Lisa Kaple Work Phone: [phone] [place], [place] 9[address]09-30-2024 14:31-0400 Diastolic blood baaaduxv65 mm[Hg]DNP Lisa Kaple Work Phone: [phone] [place], [place] 9402509-30-2024 14:31-0400 Heart rate70 /minDNP Lisa Kaple Work Phone: [phone] [place], [place] 9402509-30-2024 14:31-0400 Respiratory rate18 /minDNP Lisa Kaple Work Phone: [phone] [place], [place] 9402509-30-2024 14:31-0400 SaO2% (BldA) [Mass fraction]100 %DNP Lisa Kaple Work Phone: [phone] [place], [place] 9402509-30-2024 14:31-0400 Systolic blood joqysbty892 mm[Hg]DNP Lisa Kaple Work Phone: [phone] [place], [place] 9402509-20-2024 08:41-0400 Body .75 cmDNP Lisa Kaple Work Phone: [phone] [place], [place] 9402509-20-2024 08:41-0400 Body mass index (BMI) [Ratio]29.7 kg/m2DNP Lisa Kaple Work Phone: [phone] [place], [place] 9402509-20-2024 08:41-0400 Body .98 kgDNP Lisa Kaple Work Phone: [phone] [place], [place] 9402509-20-2024 08:41-0400 Diastolic blood ewxauqrp41 mm[Hg]DNP Lisa Kaple Work Phone: [phone])[address] [place], [place] 9402509-20-2024 08:41-0400 Heart rate79 /minDNP Lisa Kaple Work Phone: [phone] [place], [place] 9402509-20-2024 08:41-0400 Respiratory rate16 /minDNP Lisa Kaple Work Phone: [phone] [place], [place] 9402509-20-2024 08:41-0400 SaO2% (BldA) [Mass fraction]97 %DNP Lisa Kaple Work Phone: [phone])[address] [place], [place] 9402509-20-2024 08:41-0400 Systolic blood jtswphsy524 mm[Hg]DNP Lisa Kaple Work Phone: [phone])[address] [place], [place] 9402508-14-2024 10:30-0400 Diastolic blood mm[Hg]DNP Lisa Kaple Work Phone: [phone])[address] [place], [place] 9402508-14-2024 10:30-0400 Heart rate54 /minDNP Lisa Kaple Work Phone: [phone] [place], [place] 9402508-14-2024 10:30-0400 Respiratory rate16 /minDNP Lisa Kaple Work Phone: [phone])[address] [place], [place] 9402508-14-2024 10:30-0400 SaO2% (BldA) [Mass fraction]97 %DNP Lisa Kaple Work Phone: [phone])[address] [place], [place] 9402508-14-2024 10:30-0400 Systolic blood zzsmiwpq690 mm[Hg]DNP Lisa Kaple Work Phone: [phone])[address] [place], [place] 9402508-14-2024 08:06-0400 Body qahyty689.48 cmDNP Lisa Kaple Work Phone: [phone] [place], [place] 9402508-14-2024 08:06-0400 Body bewlkgadxtk16.2 [degF]DNP Lisa Kaple Work Phone: [phone])[address] [place], [place] 9402508-14-2024 08:06-0400 Body hhfokb19.5 kgDNP Lisa Kaple Work Phone: [phone] [place], [place] 2937905-30-2024 14:21-0400 Body .5 cmCMirna Geller DO Work Phone: [facility]05-30-2024 14:21-0400Body mass index (BMI) [Ratio]32.46 kg/h0Hylno-Sbdg Lai DO Work Phone: [facility]05-30-2024 14:21-040Body ficoqr44.5 kgOmuou-Prashant Geller DO Work Phone: [facility]05-30-2024 14:21-0400Diastolic blood inezzxvc18 mm[Hg]Oumou-Prashant Geller DO Work Phone: [facility]05-30-2024 14:21-0400Heart rate93 /min Anh Geller DO Work Phone: [facility]05-30-2024 14:21-6157WnD0% (BldA) [Mass fraction]99 %Anh Geller DO Work Phone: [facility]05-30-2024 14:21-0400Systolic blood nunefxnf648 mm[Hg]Anh Geller DO Work Phone: [facility]05-26-2024 16:22-0400Diastolic blood ajxtkitx30 mm[Hg]DNP Lisa Johns Work Phone: 1(414)[address] [place], [place] 9402505-26-2024 16:22-0400 Heart rate64 /minDNP Lisa Johns Work Phone: 1(682)[address] [place], [place] 9402505-26-2024 16:22-0400 Respiratory rate20 /minDNP Lisa Kapdaniel Work Phone: 1(471)[address] [place], [place] 9402505-26-2024 16:22-0400 SaO2% (BldA) [Mass fraction]98 %DNP Lisa Treviñodaniel Work Phone: 1(830)[address] [place], [place] 9402505-26-2024 16:22-0400 Systolic blood pvqphcfe125 mm[Hg]DNP Lias Andreas Work Phone: 1(704)[address] [place], [place] 9402505-26-2024 14:29-0400 Body oazzfy823.02 cmDNP Lisa Treviñodaniel Work Phone: 1(906)[address] [place], [place] 9402505-26-2024 14:29-0400 Body rflsxwiipoa84.5 [degF]DNP Lisa Andreas Work Phone: 1(469)[address] [place], [place] 9402505-26-2024 14:29-0400 Body kgDNP Lisa Andreas Work Phone: 1(457)[address] [place], [place] 9402505-21-2024 10:33-0400 Body mass index (BMI) [Ratio]32.62 kg/t0BhndimAlem Stovall MD Work Phone: [place] [facility]56-79-1934 10:33-0400Body rwdqum61.9 kgAlem Stovall MD Work Phone: [phone] Gwalqy56-28-4840 10:33-0400Diastolic blood holmrvgj96 mm[Hg]Alem Stovall MD Work Phone: [phone] Hhcnmf97-87-6252 10:33-0400Heart rate82 /min Alem Stovall MD Work Phone: [phone] Xgnmyq64-89-2382 10:33-0400Systolic blood ozmzvnmz189 mm[Hg]Alem Stovall MD Work Phone: [phone] Jvrykj20-15-8916 19:49-0400Diastolic blood xgydemlh80 mm[Hg]DNP Lisa Andreas Work Phone: 1(848)[address] [place], [place] 9402504-16-2024 19:49-0400 Heart rate89 /minDNP Lisa Johns Work Phone: 1(235)[address] [place], [place] 9402504-16-2024 19:49-0400 Respiratory rate16 /minDNP Lisa Kaple Work Phone: 1(152)[address] [place], [place] 9402504-16-2024 19:49-0400 SaO2% (BldA) [Mass fraction]99 %DNP Lisa Treviñole Work Phone: 1(276)[address] [place], [place] 9402504-16-2024 19:49-0400 Systolic blood ohjehmpv014 mm[Hg]DNP Lisa Kaple Work Phone: 1(046)[address] [place], [place] 9402504-16-2024 13:07-0400 Body .75 cmDNP Lisa Treviñole Work Phone: 1(237)[address] [place], [place] 9402504-16-2024 13:07-0400 Body bqhqxwtbyif08.6 [degF]DNP Lisa Treviñole Work Phone: 1(170)[address] [place], [place] 9402504-16-2024 13:07-0400 Body .2 kgDNP Lisa Treviñole Work Phone: 1(082)[address] [place], [place] 9402504-16-2024 12:02-0400 Body jyklyy693.83 cmDNP Lisa Treviñole Work Phone: 1(396)[address] [place], [place] 9402504-16-2024 12:02-0400 Body mass index (BMI) [Ratio]30.6 kg/m2DNP Lisa Treviñole Work Phone: 1(794)[address] [place], [place] 9402504-16-2024 12:02-0400 Body setzzxtmelz00.4 [degF]DNP Lisa Treviñole Work Phone: 1(812)[address] [place], [place] 9402504-16-2024 12:02-0400 Body yksgxj32.1 kgDNP Lisa Kaple Work Phone: 1(820)[address] [place], [place] 9402504-16-2024 12:02-0400 Diastolic blood mmdgqbta07 mm[Hg]DNP Lisa Kaple Work Phone: 1(592)[address] [place], [place] 9402504-16-2024 12:02-0400 Systolic blood xwqaibts934 mm[Hg]DNP Lisa Kaple Work Phone: 1(620)[address] [place], [place] 9402504-14-2024 13:12-0400 Diastolic blood ynuuocls92 mm[Hg]DNP Lisa Kaple Work Phone: 1(372)[address] [place], [place] 9402504-14-2024 13:12-0400 Heart rate78 /minDNP Lisa Kaple Work Phone: 1(545)[address] [place], [place] 9402504-14-2024 13:12-0400 Respiratory rate16 /minDNP Lisa Kaple Work Phone: 1(744)[address] [place], [place] 9402504-14-2024 13:12-0400 SaO2% (BldA) [Mass fraction]98 %DNP Lisa Kaple Work Phone: 1(977)[address] [place], [place] 9402504-14-2024 13:12-0400 Systolic blood miyblnkp65 mm[Hg]DNP Lisa Kaple Work Phone: 1(391)[address] [place], [place] 9402504-14-2024 11:29-0400 Body svudhloslxq90.9 [degF]DNP Lisa Kaple Work Phone: 1(491)[address] [place], [place] 9402504-14-2024 09:01-0400 Body vpsiyy941.83 cmDNP Lisa Kaple Work Phone: 1(065)[address] [place], [place] 9402504-14-2024 09:01-0400 Body quhhuy70 kgDNP Lisa Kaple Work Phone: 1(494)[address] [place], [place] 9402503-20-2024 14:42-0400 Diastolic blood mm[Hg]DNP Lisa Kaple Work Phone: 1(470)[address] [place], [place] 9402503-20-2024 14:42-0400 Heart rate77 /minDNP Lisa Kaple Work Phone: 1(280)[address] [place], [place] 9402503-20-2024 14:42-0400 Respiratory rate16 /minDNP Lisa Kaple Work Phone: 1(323)[address] [place], [place] 9402503-20-2024 14:42-0400 SaO2% (BldA) [Mass fraction]97 %DNP Lisa Johns Work Phone: 1(314)[address] [place], [place] 9402503-20-2024 14:42-0400 Systolic blood mm[Hg]DNP Lisa Johns Work Phone: 1(240)[address] [place], [place] 9402503-20-2024 13:46-0400 Inhaled oxygen flow rate2 L/minDNP Lisa Johns Work Phone: 1(765)[address] [place], [place] 9402503-20-2024 13:06-0400 Body gjegxsrylqw89.3 [degF]DNP Lisa Johns Work Phone: 1(161)[address] [place], [place] 9402503-20-2024 11:39-0400 Body vljqym320.75 cmDNP Lisa Johns Work Phone: 1(151)[address] [place], [place] 9402503-20-2024 11:39-0400 Body mass index (BMI) [Ratio]33.3 kg/m2DNP Lisa Johns Work Phone: 1(036)[address] [place], [place] 9402503-20-2024 11:39-0400 Body rwufdh95.91 kgDNP Lisa Johns Work Phone: 1(445)[address] [place], [place] 9402502-29-2024 15:30-0500 Body earmprnyboi91.2 [degF]Chance Vera MD Other Phone: [facility]02-29-2024 15:30-0500Diastolic blood givkpxlk857 mm[Hg]Chance Vera MD Other Phone: [facility]02-29-2024 15:30-0500Heart rate 95 /Alfreda Vera MD Other Phone: [facility] FFKEMI73-52-6961 15:30-0500 Respiratory rate18 /Alfreda Vera MD Other Phone: [facility]02-29-2024 15:30-9828XmK6% (BldA) [Mass fraction]97 %Chance Vera MD Other Phone: [facility] LDXHKR48-54-2313 15:30-0500Systolic blood ilmsdccv393 mm[Hg]Chance Vera MD Other Phone: [facility] OGSPRD12-52-7782 00:42-0500Diastolic blood cofhsenx97 mm[Hg]DNP Lisa Kaple Work Phone: 1(585)[address] [place], [place] 9402501-31-2024 00:42-0500 Heart rate62 /minDNP Lisa Kaple Work Phone: 1(823)[address] [place], [place] 9402501-31-2024 00:42-0500 Respiratory rate16 /minDNP Lisa Kaple Work Phone: 1(949)[address] [place], [place] 9402501-31-2024 00:42-0500 SaO2% (BldA) [Mass fraction]95 %DNP Lisa Kaple Work Phone: 1(479)[address] [place], [place] 9402501-31-2024 00:42-0500 Systolic blood ymoyegfa877 mm[Hg]DNP Lisa Kaple Work Phone: 1(306)[address] [place], [place] 9402501-30-2024 22:39-0500 Body csoutv480.48 cmDNP Lisa Kaple Work Phone: 1(696)[address] [place], [place] 9402501-30-2024 22:39-0500 Body fydanqvzicl84.8 [degF]DNP Lisa Kaple Work Phone: 1(237)[address] [place], [place] 9402501-30-2024 22:39-0500 Body gcipip04 kgDNP Lisa Kaple Work Phone: 1(809)[address] [place], [place] 9402501-04-2024 12:50-0500 Body fgamyd586.02 Daniel Hernandez Other [facility]01-04-2024 12:50-0500 Body mass index (BMI) [Ratio]32.77 kg/c8VseoypEdward Hernandez Other [employer] Other 01-04-2024 12:50-0500Body monlangsuce84.1 [degF]Edward Hernandez Other [employer] Other 01-04-2024 12:50-0500Body xvwymo73.92 kgEdward Hernandez Other [employer] Other 01-04-2024 12:50-0500Body szqggu50.91 kgDNP Lisa Johns Work Phone: [facility]01-04-2024 12:50-0500 Diastolic blood zhqdzerv41 mm[Hg]Edward Hernandez Other [facility]01-04-2024 12:50-0500 Respiratory rate18 /minEdward Hernandez Other [employer] Other 01-04-2024 12:50-5851VvK6% (BldA) [Mass fraction]99 % Edward Hernandez Other [employer] Other 01-04-2024 12:50-0500Systolic blood akyjkfob497 mm[Hg] Edward Hernandez Other [facility]12-27-2023 22:25-0500 Body mqniifplycn67.6 [degF]DNP Lisa Johns Work Phone: [facility]12-27-2023 20:42-0500 Body xhtwsa912.48 cmDNP Lisa Johns Work Phone: [facility]12-27-2023 20:42-0500 Body roixmq69.65 kgDNP Lisa Johns Work Phone: 1(622)089-[address] [place], [place] 2937912-27-2023 20:42-0500 Diastolic blood vapoyyyi42 mm[Hg]DNP Lisa Johns Work Phone: 1(839)[address]12-27-2023 20:42-0500 Heart vxkt659 /minDNP Lisa Johns Work Phone: 1(438)[address] [place], [place] 9402512-27-2023 20:42-0500 Respiratory rate20 /minDNP Lisa Johns Work Phone: 1(616)[address] [place], [place] 9402512-27-2023 20:42-0500 SaO2% (BldA) [Mass fraction]95 %DNP Lisa Johns Work Phone: 1(639)[address] [place], [place] 9402512-27-2023 20:42-0500 Systolic blood urkhiudj305 mm[Hg]DNP Lisa Johns Work Phone: 1(544)[address] [place], [place] 9402503-29-2023 09:00-0400 Body hvpyer227.02 cmTadshannanmart Treviñodaniel Other [employer] Other 03-29-2023 09:00-0400Body mass index (BMI) [Ratio] 30.09 kg/s4JukwbghgLisa Treviñodaniel Other [employer] Other 03-29-2023 09:00-0400Body gquhhs36.07 kgTadshannanmart Treviñodaniel Other [employer] Other 03-29-2023 09:00-0400Diastolic blood vsmuogkt54 mm[Hg] Lisa Treviñodaniel Other [employer] Other 03-29-2023 09:00-0400Respiratory rate18 /minLisa Treviñole Other [employer] Other 03-29-2023 09:00-3347NtT1% (BldA) [Mass fraction]91 % Lisa Andreas Other [employer] Other 03-29-2023 09:00-0400Systolic blood lriipgdo669 mm[Hg] Lisa Andreas Other [employer] Other 03-10-2023 11:15-0500Body ghtufs466.5 cmArafi Phipps MD Work Phone: [facility]03-10-2023 11:15-0500Body ujbwil97.02 kgDerrell Phipps MD Work Phone: [facility]03-10-2023 11:15-0500Diastolic blood mejrqrvu19 mm[Hg]Derrell Phipps MD Work Phone: [facility]03-10-2023 11:15-0500Heart rate69 /min Derrell Phipps MD Work Phone: [facility]03-10-2023 11:15-0500Systolic blood mm[Hg]Derrell Phipps MD Work Phone: [facility]03-09-2023 14:30-0500Body osikpi348.02 cmRichard Wing Other [employer] Other 03-09-2023 14:30-0500Body mass index (BMI) [Ratio] 30.84 kg/j8DghpgzRichard Wing Other [employer] Other 03-09-2023 14:30-0500Body jbvlyv10.97 kgRichard Wing Other [employer] Other 03-09-2023 14:30-0500Diastolic blood qtbdwqyx64 mm[Hg] Richard Wing Other [employer] Other 03-09-2023 14:30-0500Respiratory rate18 /minDsergio Alfreddiff Other [facility] [employer] Other 03-09-2023 14:30-5911QsW5% (BldA) [Mass fraction]95 % Richard Wing Other [facility] [employer] Other 03-09-2023 14:30-0500Systolic blood mwtodlpi848 mm[Hg] Richard Alfreddiff Other [facility] [employer] Other 02-16-2023 14:45-0500Diastolic blood ikgeezok70 mm[Hg] DNP Lisa Treviñole Work Phone: 1(972)[address]02-16-2023 14:45-0500 Heart rate67 /minDNP Lisa Kaple Work Phone: 1(207)[address]02-16-2023 14:45-0500 Respiratory rate18 /minDNP Lisa Kaple Work Phone: 1(584)[address]02-16-2023 14:45-0500 SaO2% (BldA) [Mass fraction]97 %DNP Lisa Kaple Work Phone: 1(832)8-[address] [place], [place] 2937902-16-2023 14:45-0500 Systolic blood ydpwogyu398 mm[Hg]DNP Lisa Kaple Work Phone: 1(340)1-[address] [place], [place] 2937902-16-2023 12:06-0500 Body bzigtm534.48 cmDNP Lisa Kaple Work Phone: 1(263)[address]02-16-2023 12:06-0500 Body .35 kgDNP Lisa Kaple Work Phone: [facility]02-16-2023 12:05-0500 Body rortxwbopfk10.1 [degF]DNP Lisa Treviñodaniel Work Phone: [facility]02-16-2023 12:00-0500 Body .02 cmJennmart Kaple Other [employer] Other 02-16-2023 12:00-0500Body mass index (BMI) [Ratio] 28.62 kg/x3Zsqrgjdp Kaple Other [employer] Other 02-16-2023 12:00-0500Body jffnlu36.3 kgJennifer Kaple Other [employer] Other 02-16-2023 12:00-0500Diastolic blood mm[Hg] Lisa Johns Other [employer] Other 02-16-2023 12:00-0500Systolic blood rrfjhyjt679 mm[Hg] Lisa Andreas Other [employer] Other 01-30-2023 12:45-0500Body uybjko071.02 cmJennmart Kaple Other [employer] Other 01-30-2023 12:45-0500Body mass index (BMI) [Ratio] 27.93 kg/a6Jtuavxas Kaple Other [employer] Other 01-30-2023 12:45-0500Body euooli03.53 kgJennifer Kaple Other [employer] Other 01-30-2023 12:45-0500Diastolic blood onlafgtn42 mm[Hg] Lisa Treviñodaniel Other [employer] Other 01-30-2023 12:45-0500Respiratory rate18 /minJeanastasia Johns Other [employer] Other 01-30-2023 12:45-0561EqE2% (BldA) [Mass fraction]98 % Lisa Johns Other [employer] Other 01-30-2023 12:45-0500Systolic blood akinfhqd202 mm[Hg] Lisa Johns Other [employer] Other 01-09-2023 15:15-0500Body yztocs775.02 cmRichard Wing Other [employer] Other 01-09-2023 15:15-0500Body mass index (BMI) [Ratio] 28.71 kg/q5AxtzxpRichard Wing Other [employer] Other 01-09-2023 15:15-0500Body vuzjcl10.53 kgRichard Wing Other [employer] Other 01-09-2023 15:15-0500Diastolic blood erxtxqbn81 mm[Hg] Richard Wing Other [employer] Other 01-09-2023 15:15-0500Respiratory rate18 /Lashonda Wing Other [employer] Other 01-09-2023 15:15-3582ZmE3% (BldA) [Mass fraction]97 % Richard Wing Other [employer] Other 01-09-2023 15:15-0500Systolic blood bkwpvavp535 mm[Hg] Richard Wing Other [employer] Other 12-19-2022 16:00-0500Body .02 cmLisa Johns Other [employer] Other 12-19-2022 16:00-0500Body mass index (BMI) [Ratio] 26.67 kg/b7IppufteyLisa Johns Other [employer] Other 12-19-2022 16:00-0500Body eyugnvmynbg55.7 [degF] Lisa Johns Other [employer] Other 12-19-2022 16:00-0500Body ryhgyp95.31 kgLisa Johns Other [employer] Other 12-19-2022 16:00-0500Diastolic blood mm[Hg] Lisa Johns Other [employer] Other 12-19-2022 16:00-0500Respiratory rate18 /minLisa Johns Other [employer] Other 12-19-2022 16:00-3863FwM6% (BldA) [Mass fraction]97 % Lisa Johns Other [employer] Other 12-19-2022 16:00-0500Systolic blood qrbsoowj013 mm[Hg] Lisa Johns Other [employer] Other 12-14-2022 09:30-0500Body gewner824.02 cmJennifer Kaple Other [employer] Other 12-14-2022 09:30-0500Body mass index (BMI) [Ratio] 26.18 kg/u4Ynsttgiy Kaple Other [employer] Other 12-14-2022 09:30-0500Body ceypnu92.04 kgJennifer Kaple Other [employer] Other 12-14-2022 09:30-0500Diastolic blood sofbchcr52 mm[Hg] Lisa Johns Other [employer] Other 12-14-2022 09:30-0500Respiratory rate18 /minJeanastasia Treviñole Other [employer] Other 12-14-2022 09:30-9464BiO3% (BldA) [Mass fraction]99 % Lisa Johns Other [employer] Other 12-14-2022 09:30-0500Systolic blood fvqrtyun481 mm[Hg] Lisa Johns Other [employer] Other 10-06-2022 12:15-0400Body .02 cmJennifer Kaple Other [employer] Other 10-06-2022 12:15-0400Body mass index (BMI) [Ratio] 29.63 kg/f9Kohzpmdh Kaple Other [employer] Other 10-06-2022 12:15-0400Body bupkabkradj29.5 [degF] Lisa Hudsonle Other [employer] Other 10-06-2022 12:15-0400Body vwpajg96.89 kgTosinmart Andreas Other [employer] Other 10-06-2022 12:15-0400Diastolic blood mm[Hg] Lisa Hudsonle Other [employer] Other 10-06-2022 12:15-0400Respiratory rate18 /minLisa Johns Other [employer] Other 10-06-2022 12:15-3756GhV7% (BldA) [Mass fraction]99 % Lisa Andreas Other [employer] Other 10-06-2022 12:15-0400Systolic blood agtvbpti951 mm[Hg] Lisa Hudsonle Other [employer] Other 10-05-2022 22:55-0400Body ufxurs992.48 cmDNP Lisa Kaple Work Phone: [facility]10-05-2022 22:55-0400 Body ehgjpvgkbaq51.5 [degF]DNP Lisa Kaple Work Phone: [facility]10-05-2022 22:55-0400 Body nqljpy88 kgDNP Lisa Kaple Work Phone: [facility]10-05-2022 22:55-0400 Diastolic blood mm[Hg]DNP Lisa Kaple Work Phone: [facility]10-05-2022 22:55-0400 Heart rate70 /minDNP Lisa Johns Work Phone: 1(315)2-[address] [place], [place] 2937910-05-2022 22:55-0400 Respiratory rate20 /minDNP Lisa Johns Work Phone: 1(537)[address]10-05-2022 22:55-0400 SaO2% (BldA) [Mass fraction]97 %DNP Lisa Johns Work Phone: 1(657)[address]10-05-2022 22:55-0400 Systolic blood dfavtjyr169 mm[Hg]DNP Lisa Johns Work Phone: 1(264)[address] [place], [place] 9402509-08-2022 08:45-0400 Body xszhqo545.02 cmTadanastasia Johns Other [employer] Other 09-08-2022 08:45-0400Body mass index (BMI) [Ratio] 30.68 kg/y3Vtbjpoad Andreas Other [employer] Other 09-08-2022 08:45-0400Body xynzdhxoqbt28.3 [degF] Lisa Andreas Other [employer] Other 09-08-2022 08:45-0400Body upkdry79.56 kgTadshannanmart Andreas Other [facility] Other 09-08-2022 08:45-0400Diastolic blood lcbtionk42 mm[Hg] Lisa Andreas Other [employer] Other 09-08-2022 08:45-0400Respiratory rate18 /minTosinmart Andreas Other [employer] Other 09-08-2022 08:45-7021OmC0% (BldA) [Mass fraction]98 % Lisa Andreas Other [employer] Other 09-08-2022 08:45-0400Systolic blood mm[Hg] Lisa Andreas Other [employer] Other 08-24-2022 16:45-0400Body bttxby266.02 cmRichard Wing Other [employer] Other 08-24-2022 16:45-0400Body mass index (BMI) [Ratio] 30.38 kg/m2QijghlRichard Wing Other [employer] Other 08-24-2022 16:45-0400Body vtabtw90.79 kgRichard Wing Other [employer] Other 08-24-2022 16:45-0400Diastolic blood ojqtwwsx46 mm[Hg] Richard Wing Other [employer] Other 08-24-2022 16:45-1959KbA3% (BldA) [Mass fraction]97 % Richard Wing Other [employer] Other 08-24-2022 16:45-0400Systolic blood mm[Hg] Richard Wing Other [employer] Other 07-12-2022 10:30-0400Body lryqjb562.02 cmRpatrick Goldsmith Other [employer] Other 07-12-2022 10:30-0400Body mass index (BMI) [Ratio]31.6 kg/z3KztycrkFred Goldsmith Other [facility] [employer] Other 07-12-2022 10:30-0400Body mzckhpghotp78.9 [degF] Fred Goldsmith Other [employer] Other 07-12-2022 10:30-0400Body stlmer86.92 kgRichruthy Goldsmith Other [employer] Other 07-12-2022 10:30-0400Diastolic blood mlyznsnc53 mm[Hg] Fred Goldsmith Other [employer] Other 07-12-2022 10:30-0400Respiratory rate18 /minRichruthy Goldsmith Other [employer] Other 07-12-2022 10:30-1356SgA9% (BldA) [Mass fraction]97 % Fred Goldsmith Other [employer] Other 07-12-2022 10:30-0400Systolic blood qshgroit217 mm[Hg] Fred Goldsmith Other [employer] Other 07-06-2022 16:45-0400Body nyllix769.02 cmRichard Wing Other [employer] Other 07-06-2022 16:45-0400Body mass index (BMI) [Ratio] 31.81 kg/y9WzqtqoRichard Wing Other [employer] Other 07-06-2022 16:45-0400Body qlsqve90.47 kgPrudencionirav Alfreddiff Other [employer] Other 07-06-2022 16:45-0400Diastolic blood cwibvddc26 mm[Hg] Richard Mecca Other [employer] Other 07-06-2022 16:45-0400Respiratory rate18 /minDsergio Mecca Other [employer] Other 07-06-2022 16:45-2561FhN7% (BldA) [Mass fraction]97 % Richard Wing Other [employer] Other 07-06-2022 16:45-0400Systolic blood ovdjbayj36 mm[Hg] Richard Wing Other [employer] Other 05-26-2022 09:15-0400Body wydhkg024.02 cmDawn Fitt Other [employer] Other 05-05-2022 14:30-0400Body hdbxic021.02 cmRichard Wing Other [employer] Other 05-05-2022 14:30-0400Body mass index (BMI) [Ratio] 34.34 kg/w2SlkmkwRichard Wing Other [employer] Other 05-05-2022 14:30-0400Body hueoaj70.95 kgRichard Wing Other [employer] Other 05-05-2022 14:30-0400Diastolic blood zpcubxqx95 mm[Hg] Richard Wing Other [employer] Other 05-05-2022 14:30-0400Respiratory rate18 /minDsergio Wing Other [employer] Other 05-05-2022 14:30-4017IfD8% (BldA) [Mass fraction]95 % Richard Wing Other [employer] Other 05-05-2022 14:30-0400Systolic blood ucsktrzy658 mm[Hg] Richard Wing Other [employer] Other 04-13-2022 16:30-0400Body ogxjvc083.02 cmJennifer Kaple Other [employer] Other 04-13-2022 16:30-0400Body mass index (BMI) [Ratio] 34.36 kg/y9Pijtuaof Kaple Other [employer] Other 04-13-2022 16:30-0400Body gdhifx97 kgJennifer Kaple Other [employer] Other 04-13-2022 16:30-0400Diastolic blood mm[Hg] Lisa Johns Other [employer] Other 04-13-2022 16:30-0400Respiratory rate18 /minJennifer Kaple Other [employer] Other 04-13-2022 16:30-9150BhD1% (BldA) [Mass fraction]97 % Lisa Johns Other [facility] [employer] Other 04-13-2022 16:30-0400Systolic blood wublrxjm302 mm[Hg] Lisa Johns Other [facility] [employer] Other Encounters Encounter DateEncounter TypeCare ProviderFacilityStart: 02-27-2025 End: 46-03-3181ogpthtiveaWPQNOX PATQUARDTFacility:[facility] Start: 02-27-2025 End: 98-89-4604lvagnqlcseYYSEKVCYL HARASIMOWICZFacility:[facility] HospitalStart: 88-30-9556zuxlklwvfcYPFXOLATS HARASIMOWICZFacility:[facility] HospitalStart: 02-27-2025 End: 89-19-1711cjwrbnxaciWHZHE COHENFacility:[facility] Healthcaretart: 02-27-2025 End: 30-10-1820chzhhobbjnAEJQX COHENFacility:[facility] HospitalStart: 02-24-2025 End: 32-98-2464cxaupibhagFCFJSAGDM LAMORGESEFacility:[facility] Start: 02-21-2025 End: 34-09-2217Sqkzzqrip department patient visitYoan Ivey MD Work Phone: [phone]-Glkmncqig Room Work Phone: Start: 88-60-8486vezzsgvwjwQCDWW COHENFort [facility] Hospital HospitalStart: 02-20-2025 End: 75-13-4769Jweomatonh hospital visit by Lakisha Bender MD Work Phone: mv MRIStart: 02-13-2025 End: 05-47-0654wjlpntqdshQLYZE COHENFacility:[facility] HospitalStart: 02-06-2025 End: 57-48-8971qqossimfydCMXELWMT O BRENNECKEFacility:[facility] Start: 02-02-2025 End: 07-71-4621wzljqlryxfGUFSOFL OLSONFacility:[facility] HospitalStart: 02-02-2025 End: 62-64-7066ymbwohrvdxBVGGZS Turner PLATTGISFacility:[facility] Healthcaretart: 01-30-2025 End: 52-13-4594lvwgvqawsfRBYNLDParkview HealthStart: 01-26-2025 End: 18-63-5944mgimfgftojFHKADHSt. [facility] CenterStart: 01-26-2025 End: 21-31-0912Olilyrauzc hospital visit by physicianKing[facility] NonstaffKING[facility] Pre Post AreaComment on above:Benign intracranial hypertensionStart: 01-20-2025 End: 90-46-2855Dbvvene encounter procedureEmg [facility] (Max Weight 400) [facility] McAllentart: 01-20-2025 End: 96-27-9975fubwadtqqaZOWSGQBX O BRENNECKENeurology [facility] RenaissanceCComment on above:EMGStart: 01-16-2025 End: 38-41-9830ygmqowxenuCmacblw L Hill APRN.CNP Work Phone: Pain ManagementComment on above:Lumbar spine mriStart: 01-13-2025 End: 30-29-6368ochsnfnzzdKfbwifc Diallo DO Work Phone: NeurologyStart: 01-10-2025 End: 93-10-8717Ptwacpapg encounterSsavage Noble PA-C Work Phone: [facility] CenterStart: 01-10-2025 End: 59-28-3225nrxchgoivsZQTMF COHENFacility:[facility] Healthcaretart: 01-10-2025 End: 14-48-9412Pvnkijd encounter procedureLloyd Sherwood MD Work Phone: OphthalmologyComment on above:IIH (idiopathic intracranial hypertension) (Primary Dx); Other localized visual field defect, bilateral; Pulsatile tinnitusStart: 01-06-2025 End: 35-93-9496Brmsqlrap encounterMadisen Diallo DO Work Phone: NeurologyComment on above:Referral Request; Botox InjectionStart: 01-05-2025 End: 76-14-4257Qtvqsf outpatient visit 40 minutesMakarel Landrum DO Work Phone: NeurologyComment on above:Intractable chronic migraine without aura and without status migrainosus (Primary Dx); Idiopathic intracranial hypertensionStart: 01-05-2025 End: 53-11-5685ptvlhsuuyzADCUPEX OLSONFacility:[facility] Healthcaretart: 01-03-2025 End: 28-56-6573lrkstcjmbyNSRUB RAYMONDFacility:[facility] Healthcaretart: 01-03-2025 End: 55-94-1124Gftbsa outpatient visit 25 minutesBebe Thomas MD Work Phone: NeurologyComment on above:Idiopathic intracranial hypertensionStart: 12-31-2024 End: 92-94-4818Tmytdmeec Patricia Swain MD Work Phone: Endovascular CenterStart: 12-30-2024 End: 98-07-0391ormhpmtfgxOSERN RAYMONDFacility:[facility] Healthcaretart: 12-27-2024 End: 41-28-9977PTNZwio [place] VirtualPre AnesthesiaComment on above:Nicotine use disorder, F17.2 (Primary Dx); IIH (idiopathic intracranial hypertension); Migraine headaches; PTSD (post-traumatic stress disorder); Anxiety; Attention deficit hyperactivity disorder (ADHD), unspecified ADHD type; Mild intermittent asthma without complication (HCC); Fibromyalgia; Palpitations; History of cervical cancerStart: 12-26-2024 End: 79-09-1638szfwrndmknTdccwfh Olson DO Work Phone: NeurologyComment on above:UpdateStart: 12-23-2024 End: 61-92-3673ozetrxxmwgBefvl Raymond MD Work Phone: Endovascular CenterComment on above:AndreaStart: 12-22-2024 End: 96-91-7887iuegvdliqmUfczb Raymond MD Work Phone: Endovascular CenterComment on above:ProcedureStart: 12-21-2024 End: 91-99-1052Rsavpz OnlyBbee Thomas MD Work Phone: Endovascular CenterComment on above:IIH (idiopathic intracranial hypertension) (Primary Dx)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)Procedure Tomorrow/next weekStart: 12-20-2024 End: 61-74-9439Agynzc outpatient new 45 minutesBebe Thomas MD Work Phone: Endovascular CenterComment on above:IIH (idiopathic intracranial hypertension) (Primary Dx)Start: 12-20-2024 End: 54-76-3180mrmubczfgoCobsh Raymond MD Work Phone: Endovascular CenterComment on above:RecoveryStart: 12-19-2024 End: 79-33-4715dhvdmfrsxrTAVZKN GAUDINProvider LocationsStart: 12-15-2024 End: 17-81-5010fqwxgaujalZYMISUN M HOYFacility:[facility] HospitalStart: 12-13-2024 End: 80-32-5209ajvpuginnzSWHOGQL M HOYFacility:[facility] Healthcaretart: 12-13-2024 End: 80-09-1408Lqlmafl encounter procedureLloyd Sherwood MD Work Phone: OphthalmologyComment on above:IIH (idiopathic intracranial hypertension) (Primary Dx); Pulsatile tinnitus; Chronic migraine without aura, with intractable migraine, so stated, with status migrainosus; Other dysphagia; Weakness of both lower extremitiesStart: 12-13-2024 End: 37-65-4976sazuwsvpnfAZSXC COHENFacility:[facility] Healthcaretart: 12-10-2024 End: 05-09-3016Mhptaoh encounter procedureEmg 1 Neur Fhc Rej (Max Weight: 400) Work Phone: NeurologyComment on above:EMGStart: 12-10-2024 End: 13-03-3672tzlunrelhcXAIRWZBC O BRENNECKEFacility:[facility] Start: 12-06-2024 End: 33-67-7801Huvouheajv hospital visit by physicianFlorinda Steevn MD Work Phone (unformatted): [phone] Outside FilmsStart: 12-02-2024 End: 68-64-5851qskvvtnkvtZqnyswcFay Garcia PA-C Work Phone: NeurologyComment on above:QuestionStart: 12-01-2024 End: 62-32-2896iwmblhjabhHnv ProviderNeurologyComment on above:Are the New Migraine Therapies Right for Me?Start: 12-01-2024 End: 42-02-0925Q-mail encounter from caregiverCcf ProviderNeurologyStart: 11-14-2024 End: 35-53-0354cbgmvlifntPitil Cohen MD Work Phone: OphthalmologyComment on above:Good morningStart: 11-13-2024 End: 54-36-8464Zzignfpxxy hospital [facility] by physicianInter[facility] Maurizio OAKLEY Work Phone (unformatted): [phone] Outside FilmsStart: 11-08-2024 End: 73-27-0337vryvhiabgaXUJM M. FLYNNProvider LocationsStart: 10-21-2024 End: 80-32-7758Hlejrjwfy encounterMadisen Diallo FREEMAN Work Phone: NeurologyComment on above:Insurance Authorization; Lexii GaraywellStart: 10-13-2024 End: 95-19-5596Qwmfpybmx encounterSergei Harrington APRN.CNP Work Phone: NeurologyComment on above:Received Outside Medical RecordsStart: 10-12-2024 End: 14-17-8785Yrafmpp encounter procedureSergei Harrington APRN.CNP Work Phone: NeurologyComment on above:Intractable chronic migraine with aura with status migrainosus (Primary Dx); Idiopathic intracranial hypertensionMigraine without aura, not intractable, without status migrainosus (Primary Dx)Start: 10-12-2024 End: 97-20-7530wfvqpeabzeXdnparjy Main Chair 6 Work Phone: NeurologyComment on above:Migraine without aura, not intractable, without status migrainosus (Primary Dx)Start: 10-11-2024 End: 73-84-6422bsanovghjqHkvevafj Main Chair 6 Work Phone: NeurologyComment on above:Migraine without aura, not intractable, without status migrainosus (Primary Dx)Start: 10-10-2024 End: 24-68-1317Pdqogoefp encounterGlo Louiseeyad LSWOphthalmologyComment on above:Social Work ConsultationStart: 10-10-2024 End: 30-40-0276axjzxybnezZipluqry Main Chair 8 Work Phone: NeurologyComment on above:Migraine without aura, not intractable, without status migrainosus (Primary Dx)Start: 10-07-2024 End: 08-00-3018Zekvcdnyrhsy consultation with patientMakarel Diallo DO Work Phone: NeurologyStart: 10-07-2024 End: 93-44-4352zuavqnijrhTxhrqhe Landrum DO Work Phone: NeurologyComment on above:Migraine without aura, not intractable, without status migrainosus (Primary Dx); Idiopathic intracranial hypertensionStart: 10-06-2024 End: 89-14-2112Kmwwjqyvb encounterLloyd Sherwood MD Work Phone: OphthalmologyStart: 10-05-2024 End: 13-84-1289Hqpzwst encounter procedureLloyd Sherwood MD Work Phone: OphthalmologyComment on above:IIH (idiopathic intracranial hypertension) (Primary Dx); Other localized visual field defect, bilateralStart: 10-05-2024 End: 10-39-4013gupkyygayfXJVFF COHENFacility:[facility] Healthcaretart: 10-04-2024 End: 21-74-9989aehocylkmxMxk ProviderOphthalmologyComment on above:Medical Record Release formStart: 10-04-2024 End: 91-11-5650R-mail encounter from [facility] ProviderOphthalmologyStart: 10-04-2024 End: 17-63-2100Sumonltvd department patient visitDouglas y MD Work Phone: [facility] Work Phone: Start: 09-28-2024 End: 77-68-9495tciuttutpbBtrlmr DannerFacility:[facility] Start: 09-28-2024 End: 65-75-8462Dqkfmkzrpj and management of inpatientYoan Ivey MD Work Phone: [facility] Work Phone: Start: 09-28-2024 End: 99-34-3287eylclkvsqru encounterYoan Ivey MD Work Phone: [facility] Work Phone: Start: 09-28-2024 End: 24-31-2702wnlszdsycdVJJOO COHENFacility:[facility] Healthcaretart: 09-26-2024 End: 97-53-5226Brghfgmircgv consultation with Karen Landrum DO Work Phone: NeurologyStart: 09-26-2024 End: 94-87-8595axjrltrdpaPhkhhnr Olson DO Work Phone: NeurologyComment on above:IIH (idiopathic intracranial hypertension) (Primary Dx); Intractable chronic migraine with aura with status migrainosusStart: 09-23-2024 End: 88-71-5182Dtdgqlpeqpyh consultation with Arabella Garcia PA-C Work Phone: NeurologyStart: 09-23-2024 End: 16-88-1247xoruzmqmwtPsqartsTaz Garcia PA-C Work Phone: NeurologyComment on above:IIH (idiopathic intracranial hypertension) (Primary Dx); Chronic migraine without aura without status migrainosus, not intractable; Encounter for medication monitoringIIH (idiopathic intracranial hypertension) (Primary Dx)Start: 09-22-2024 End: 31-41-4265Aznobtkme department patient visitYOAN IVEYFacility:[facility] Healthcaretart: 09-21-2024 End: 71-85-1859pqzlooohzdGmmjkub Olson DO Work Phone: NeurologyComment on above:diamox and current KHAN PapilledemaStart: 09-21-2024 End: 82-30-4605E-mail encounter from caregiverZenaida Landrum DO Work Phone: NeurologyStart: 09-21-2024 End: 38-00-2149Cuycqcpjo encounterDecristina Sherwood MD Work Phone: OphthalmologyStart: 09-19-2024 End: 70-10-4942aeonrtzbufTdlif Turner RNNURSE ON CALLComment on above:Headache Start: 08-26-2024 End: 61-21-9970tokcrzclawOPCOYCF M HOYFacility:[facility] Healthcaretart: 08-24-2024 End: 05-43-4519P-mail encounter from caregiverZenaida Landrum DO Work Phone: NeurologyStart: 08-24-2024 End: 60-88-2998Jjibhhyqmtuu consultation with Karen Landrum DO Work Phone: NeurologyStart: 08-24-2024 End: 29-99-8656ldxgmjhlgyWkwxoql Olson DO Work Phone: NeurologyComment on above:IIH (idiopathic intracranial hypertension) (Primary Dx); Chronic migraine without aura without status migrainosus, not intractable; Paresthesia of skintoday's visitStart: 08-05-2024 End: 03-41-4129eigiujlgeeKVNYYTHG O BRENNECKEFacility:[facility] Start: 08-04-2024 End: 42-05-3766edrjtibgvvIUJMVOOS O BRENNECKEFacility:[facility] Start: 08-04-2024 End: 43-00-0586Pyvnsts encounter Rosi Gonsalez MD Work Phone: NeurologyComment on above:Multiple complaints (Primary Dx); Tingling; Disturbance of skin sensation; Burning sensation; NumbnessStart: 07-22-2024 End: 77-51-2587coaerbpcbfLlyptn Goforth MD Work Phone: Neurology Headache Sinclair FHCComment on above:IIH (idiopathic intracranial hypertension) (Primary Dx); Other polyneuropathyStart: 07-22-2024 End: 08-97-8720Lnzlhogffhqk consultation with Sherry Goldberg MD Work Phone: Neurology Headache [facility] FHCStart: 07-15-2024 End: 88-21-7878Kstnxmzem encounterCassandra Orozco APRN.CNP Work Phone: Pain ManagementComment on above:Patient UpdateStart: 07-11-2024 End: 89-57-4385gqzpbiwyciPvrobclFritz Orozco APRN.CNP Work Phone: Pain ManagementComment on above:Anterior thigh numbness (Primary Dx); Chronic pain syndromeStart: 07-11-2024 End: 05-71-8825Kpjeepmtqxcb consultation with Henna Orozco APRN.CNP Work Phone: Pain ManagementStart: 07-04-2024 End: 90-81-8566RaqtyaXdeqajx Diallo FREEMAN Work Phone: NeurologyComment on above:Refill RequestStart: 96-43-3601vcjrzkhafxERQNC PATEL SONIFacility:[facility] HospitalStart: 07-01-2024 End: 31-99-6234wwrvowkutcEXQAALIG SECINFacility:[facility] HospitalStart: 07-01-2024 End: 03-73-4072Souevpm encounter Joe Urbina MD Work Phone: UrologyComment on above:Kidney stone; IIH (idiopathic intracranial hypertension)Start: 06-29-2024 End: 34-88-8423nkbfmybkkoEnijmkkFritz Orozco APRN.CNP Work Phone: Pain ManagementComment on above:Questionnaire SubmissionStart: 06-29-2024 End: 80-11-9494D-mail encounter from Raul Orozco APRN.OPEN CLAIMS REPRESENTATIVE Work Phone: Pain ManagementStart: 06-27-2024 End: 27-11-8873Hqgyvel encounter procedurePHYSICIAN [facility] Work Phone: Start: 06-27-2024 End: 01-07-0394mfmxndwjgfPUKOQKHTY [facility] Work Phone: Start: 06-23-2024 End: 50-17-5206fosklqbtvoMomhqqnJuan Orozco APRN.[facility] Work Phone: Pain ManagementComment on above:Questionnaire SubmissionStart: 06-23-2024 End: 28-03-8994B-mail encounter from Raul Orozco APRN.OPEN CLAIMS REPRESENTATIVE Work Phone: [phone] ManagementStart: 06-14-2024 End: 39-89-3497Lonsov outpatient visit 25 Marlon Orozco APRN.VAISHNAVI Work Phone: Pain ManagementComment on above:Chronic bilateral low back pain with bilateral sciatica (Primary Dx); Polyarthralgia; Cervical radiculopathy; Cervical spondylolysisStart: 06-14-2024 End: 15-63-5468J-mail encounter from Raul Orozco APRN.OPEN CLAIMS REPRESENTATIVE Work Phone: Pain ManagementStart: 06-14-2024 End: 70-60-1037zgojbtegqxNhsqpvmJuan Orozco APRN.[facility] Work Phone: Pain ManagementComment on above:PAIN QUESTIONNAIREIIH (idiopathic intracranial hypertension) (Primary Dx); Kidney stonesElevated C-reactive protein (CRP) (Primary Dx)Kidney Stones; Flank Pain; Back PainStart: 06-14-2024 End: 56-88-3339Qloxbya encounter procedureLloyd Sherwood MD Work Phone: OphthalmologyComment on above:IIH (idiopathic intracranial hypertension) (Primary Dx); Other localized visual field defect, bilateralStart: 06-13-2024 End: 75-19-1760swqwisrszmNtkoasv Lynne Hill APRN.CNP Work Phone: Pain ManagementStart: 06-13-2024 End: 23-13-7717Zumlbzj encounter procedureCassandra Orozco APRN.CNP Work Phone: Pain ManagementComment on above:6th chiropractor/physical therapy appointmentStart: 06-06-2024 End: 97-33-8541jkdvhzwowmWdkcpbhJuan Orozco APRN.CNP Work Phone: Pain ManagementComment on above:Test resultsStart: 06-03-2024 End: 92-21-9427V-mail encounter from Elvis Landrum DO Work Phone: NeurologyStart: 06-03-2024 End: 32-82-8484Gtcxllusq encounterCassandra Orozco APRN.CNP Work Phone: Pain ManagementComment on above:ResultsStart: 06-03-2024 End: 80-15-4430Cwjayr outpatient visit 25 minutesCassandra Orozco APRN.CNP Work Phone: Pain ManagementComment on above:Lumbosacral spondylosis without myelopathy (Primary Dx); Polyarthralgia; Chronic pain syndrome; Neck painStart: 06-03-2024 End: 58-95-4727rhgydsjhudWwuptzo Olson DO Work Phone: NeurologyComment on above:IIH (idiopathic intracranial hypertension) (Primary Dx); Blurry vision; Worsening headachestoday's visitStart: 06-03-2024 End: 49-14-0244Qutcxcpnzvqr consultation with Karen Landrum DO Work Phone: NeurologyStart: 05-30-2024 End: 10-59-3354nvnvlzwrnjAd Pcp APRNAppointment CenterStart: 05-30-2024 End: 50-70-7126Ffuaadj encounter procedureNo Pcp APRNAppointment CenterStart: 05-27-2024 End: 09-78-7671eggsfporzaOtitjBeatrice Cowart APRN.OPEN CLAIMS REPRESENTATIVE Work Phone: NeurologyComment on above:HeadachesMy neckStart: 05-23-2024 End: 27-56-1028Gfhxzknm ReferredPHYSICIAN [facility] [address] Work Phone: start: 05-23-2024 End: 85-23-0168vimhkoupxeRTIIQJBHB [facility] Work Phone: Start: 05-20-2024 End: 31-67-8351Aezvjgrocz hospital visit by physicianXr [facility] LorainRadiology Start: 05-20-2024 End: 01-32-2875vqfuhbzqtnMTPVVA E GIRGISFacility:[facility] Healthcaretart: 05-20-2024 End: 04-73-2471Qreugcb encounter procedureGirgis E Osiel DO Work Phone: Pain ManagementComment on above:Lumbosacral spondylosis without myelopathy (Primary Dx); Polyarthralgia; Chronic pain syndrome; Degeneration of intervertebral disc of lumbar region with discogenic back pain and lower extremity pain; Chronic bilateral low back pain with bilateral sciaticaStart: 05-13-2024 End: 29-48-6270sfoawcfhydKcyttt E Osiel DO Work Phone: Paeq ManagementComment on above:PAIN QUESTIONNAIRE Start: 05-13-2024 End: 51-44-2753N-mail encounter from caregiverGirgis E Osiel DO Work Phone: Pain ManagementStart: 08-40-0207Ihz-patient / Non-visitPHYSICIAN NO [facility]Sum[facility] Work Phone: Start: 04-05-2024 End: 79-40-0764dxnmjwxydcPeoifBeatrice Cowart APRN.OPEN CLAIMS REPRESENTATIVE Work Phone: NeurologyComment on above:IIH (idiopathic intracranial hypertension)Start: 04-05-2024 End: 64-98-2618Woiqpdnpkpmp consultation with Bibi Cowart APRN.CNP Work Phone: NeurologyStart: 03-19-2024 End: 20-19-6420fwxdfqbpfsQoqxeu E Bullimore SUPERVISOR [employer]-BC Work Phone: [facility] Work Phone: Start: 03-19-2024 End: 65-27-6850Zlzkzcl encounter procedureGinger Bullimore SUPERVISOR HAR[employer]OARD-BC Work Phone: [facility] [place] Work Phone: Start: 03-16-2024 End: 32-27-5733azynixeghbHmuxlt E Osiel DO Work Phone: Pain ManagementComment on above:Questionnaire SubmissionStart: 03-16-2024 End: 90-65-8368O-mail encounter from Erma Chávezs DO Work Phone: Pain ManagementStart: 03-06-2024 End: 82-34-9672xhpdcxduwmKprek Dileep DO Work Phone: Neurology PainComment on above:MedicationStart: 02-24-2024 End: 37-55-7502Pkczrl outpatient new 30 minutesKelly Dileep DO Work Phone: Neurology PainComment on above:Polyarthralgia (Primary Dx); Chronic pain syndrome; Chronic bilateral low back pain with right-sided sciaticaStart: 02-08-2024 End: 36-35-1693Fxngahraa department patient visitDNP Lisa Johns Work Phone: [facility]-Emergency Room Work Phone: Start: 01-29-2024 End: 05-14-8656tmucvwdfzuKSC Jennifer Kaple Work Phone: [facility] Work Phone: Start: 01-29-2024 End: 12-79-9932Txqstnx encounter procedureDNP Lisa Johns Work Phone: [facility] GroupST. [facility] Work Phone: Start: 01-07-2024 End: 57-22-0328Fkktqfmdt encounterLloyd Sherwood MD Work Phone: OphthalmologyStart: 01-01-2024 End: 17-03-0898aidmxeosmkTqwmj J Stiffler APRN.OPEN CLAIMS REPRESENTATIVE Work Phone: NeurologyComment on above:IIH (idiopathic intracranial hypertension); Class 1 obesity due to excess calories with serious comorbidity and body mass index (BMI) of 32.0 to 32.9 in adultStart: 01-01-2024 End: 40-69-6406Garvdhtrznhf consultation with Bibi Cowart APRN.CNP Work Phone: NeurologyStart: 12-25-2023 End: 77-83-7455Wjhvjln encounter procedureScindy Ma OD Work Phone: OphthalmologyComment on above:IIH (idiopathic intracranial hypertension) (Primary Dx); Accommodation spasm, bilateral; Hyperopic astigmatism of both eyesStart: 29-54-2914Wfn-patient / Non-visitDNP Lisa Johns Work Phone: [facility] Physician [facility] Work Phone: Start: 12-23-2023 End: 05-08-3889Juieogste department patient visitDNP Lisa Johns Work Phone: [facility]-Emergency Room Work Phone: Start: 54-28-6335Qqj-patient / Non-visitDNP Lisa Johns Work Phone: [facility] Physician [facility] Work Phone: Start: 10-12-2023 End: 90-75-8000kzwvjxfdmdPsexfw Sapkota MD Work Phone: RheumatologyComment on above:Polyarthralgia (Primary Dx); Chronic pain syndromeStart: 10-12-2023 End: 60-30-3364Sypeuvyguksq consultation with Fernando Stovall MD Work Phone: RheumatologyStart: 10-09-2023 End: 92-43-7545agcahnrtybNqcfcc Goforth MD Work Phone: Neurology Headache Sinclair FHCComment on above:IIH (idiopathic intracranial hypertension) (Primary Dx); Class 1 obesity due to excess calories with serious comorbidity and body mass index (BMI) of 32.0 to 32.9 in adultStart: 10-09-2023 End: 62-31-9645Szhkcsodgpar consultation with Sherry Goldberg MD Work Phone: [facility]art: 10-08-2023 End: 63-38-2443Aaulgry encounter procedureAnh Geller DO Work Phone: General SurgeryComment on above:RLQ abdominal pain (Primary Dx); Metal foreign body in abdomenStart: 10-06-2023 End: 02-63-2182pxnietcuioYYXO C LAFFAYNot AvailableStart: 31-32-7061Blg-patient / Non-visitDNP Lisa Johns Work Phone: [facility]ician Group-[facility] [place] Work Phone: Start: 10-04-2023 End: 53-69-4114Abeybfoph department patient visitDNP Lisa Johns Work Phone: [facility]-Emergency Room Work Phone: Start: 28-82-1869lxycdxdqjdEgdq Dowdell RT(R)Radiology Comment on above:Radiology XRStart: 82-32-7413Ggkqpik encounter procedureSara Lionel RT(R)RadiologyStart: 09-29-2023 End: 37-95-8070Atpgejvlyi hospital visit by physicianXr [facility] LorainRadiology Comment on above:Polyarthralgia [M25.50]Start: 09-29-2023 End: 51-31-3549Llnwgm outpatient new 60 minutesAlem Stovall MD Work Phone: RheumatologyComment on above:Polyarthralgia (Primary Dx); Elevated C-reactive protein (CRP)Start: 31-42-2487Cpz-patient / Non-visitDNP Lisa Johns Work Phone: [facility] Group-[facility] [place] Work Phone: Start: 08-27-2023 End: 91-03-2744oalxmahkolWTMS C LAFFAYNot AvailableStart: 08-25-2023 End: 66-20-8004xphqgjorrfIpjkz Jayden RNNURSE ON CALLComment on above:Swollen GlandsStart: 97-27-1223Psk-patient / Non-visitDNP Lisa Johns Work Phone: [facility] GroupSum[facility] Work Phone: Start: 08-25-2023 End: 46-42-9455Ivdheywkx department patient visitDNP Lisa Johns Work Phone: [facility]-Emergency Room Work Phone: Start: 08-25-2023 End: 85-88-8171Tloqaas encounter procedureDNP Lisa Johns Work Phone: [facility] GroupSal[facility] [place] Work Phone: Start: 08-23-2023 End: 40-45-8029Ohuogwayl department patient visitDNP Lisa Johns Work Phone: [phone] [place] [address]-Emergency Room Work Phone: Start: 08-14-2023 End: 12-20-8328eljkbszminJHOO C LAFFAYNot AvailableStart: 08-05-2023 End: 57-97-7531vungkgkewrREIR C LAFFAYNot AvailableStart: 07-29-2023 End: 47-06-3370Feizpwkie to same day surgery centerDNP Lisa Johns Work Phone: [facility] Main CampusStart: 07-29-2023 End: 64-16-1750jgqdyqjhpkXVW Lisa Johns Work Phone: [phone] [place] [address] Work Phone: Start: 07-20-2023 End: 02-98-0685Xudyrimk ReferredDNP Lisa Johns Work Phone: [phone] [place] [address]-Pre-Surgical Testing Work Phone: Start: 07-20-2023 End: 68-45-3609Jxwyozc encounter procedureDNP Lisa Johns Work Phone: [facility]-Pre-Surgical Testing Work Phone: Start: 07-09-2023 End: 18-30-4466Drdzqbgcg department patient visitChance Vera MD Other Phone: [facility] Emergency MedicineComment on above:Jaw symptoms/complaints (Has L jaw fx, was referred here to get CT scan. C/o jaw locking, and tenderness. )Start: 07-09-2023 End: 80-97-2389Nhvqatqyy department patient visitCHANCE VERA Facility:[facility]ROHealthStart: 07-02-2023 End: 84-47-2085ycyomrpkdsIIUN C LAFFAYNot AvailableStart: 06-10-2023 End: 21-14-4419tdjhccsyhqPspsgstp Kaple Other [place] Other Start: 02-56-6115Izenrrnri encounterJennifer KapleFPG Family Medicine [place]kyStart: 06-09-2023 End: 21-92-7417Ttmndwcon department patient visitDNP Lisa Johns Work Phone: [facility]-Emergency Room Work Phone: Start: 05-14-2023 End: 64-53-0907haxorkxgdeWbhojo Lewis Other noCoNarrative [place] Other Start: 58-53-1499Sjxgxl outpatient visit 15 minutes [facility]: 05-14-2023 End: 46-65-8514Tdbcrxk encounter procedureDNP Lisa Andreas Work Phone: [facility] [place] Work Phone: Start: 05-12-2023 End: 92-80-7431xesxhcputjUzxdbesk Kaple Other no[place]oo Other Start: 92-77-0723Uhxppnejw encounterJennifer KapleFPG Family Medicine [place]kyStart: 05-07-2023 End: 57-75-4228dpptdgebixZxjesvia Kaple Other noYangaroo Other Start: 91-52-2982Drrslxvji encounterJennifer KapleFPG Family Medicine [place]kyStart: 05-06-2023 End: 15-05-3299Assxcilfm department patient visitDNP Lisa Andreas Work Phone: [facility]-Emergency Room Work Phone: Start: 04-20-2023 End: 53-79-8297wdvgjeejbcBdvorqgu Kaple Other no[place]aroo Other Start: 93-18-9179Zeqeaojqx encounterJennifer KapleFPG Primary CareStart: 04-20-2023 End: 20-20-9787Dhgzasl encounter procedureDNP Lisa Johns Work Phone: [facility] Group-[facility] Family [facility] [place] Work Phone: Start: 02-03-2023 End: 77-19-8411wzptltelygGvubfmqx Kaple Other [employer] Other Start: 98-02-2441Llfvnwlko encounterJennifer KapleFPG Family Medicine [facility] BremertonyStart: 12-22-2022 End: 66-48-9458Htpjizr encounter procedureDNP Lisa Johns Work Phone: [facility]-Ultrasound Cntr for Breast CarStart: 12-12-2022 End: 39-05-9683qmlbdwthoiHecrqheb Kaple Other noCoNarrative [employer] Other Start: 04-90-4351Aykhkyeig encounterJennifer KapleFPG Primary CareStart: 11-27-2022 End: 45-56-8738ootsbvqvooTdzyxmnd Kaple Other no[place]aroo Other Start: 57-40-6751Czdojjotr encounterJennifer KapleFPG Family Medicine [facility] BremertonyStart: 71-40-8797Lenfcmvty encounterJennifer KapleFPG Family Medicine SandschroederyStart: 11-25-2022 End: 37-69-1993jtmmcpfwheRPK Lisa Johns Work Phone: [facility] Work Phone: Start: 11-25-2022 End: 04-10-4321Fxtsref encounter procedureDNP Lisa Johns Work Phone: [facility] CtrStart: 09-09-2022 End: 00-11-1843wdrqmivoxtTilxvuyc Kaple Other no[place]aroo Other Start: 16-13-7192Magsogiav encounterLisa [facility]ullen [facility] HospitalyStart: 08-06-2022 End: 10-83-3204ngtfjefbhaUrzcmcsg Kaple Other [employer] Other Start: 82-57-7266Zbxshv outpatient visit 25 minutes Lisa Cullen [facility] HospitalyStart: 07-18-2022 End: 66-83-1730nulmpbsiviOfybqxgc Kaple Other [employer] Other Start: 54-04-8321Zuuzbueyd encounterJennifer AndreasFPG [facility] HospitalyStart: 07-18-2022 End: 30-51-1878Rvuhnuq encounter procedureDerrell Phipps MD Work Phone: CardiologyComment on above:Atypical chest pain (Primary Dx)Start: 54-01-9405Uavcukxuhi RecurringDNP Lisa Johns Work Phone: [facility]-Weight Management Work Phone: Start: 86-62-6250Jgnnbb-up encounterRichard Mecca [facility] Coord[facility] Care ClinicStart: 07-17-2022 End: 41-95-9525flbtxxxcwvUOB Lisa Johns Work Phone: [facility] Work Phone: Start: 07-17-2022 End: 25-57-4782Fjjnhsa encounter procedureDNP Lisa Johns Work Phone: [facility]-Electrodiagnostics Work Phone: Start: 25-50-8009jokylsdhxrAgClark Boo II Facility:[id number]: 07-08-2022 End: 18-79-4071mgsuyqwigsPnytkovi Kaple Other noYangaroo Other Start: 43-58-1390Yvzroirri encounterJennifer KapleFPG Primary CareStart: 07-07-2022 End: 97-90-9549Oxxvjie encounter procedureDNP Lisa Johns Work Phone: [facility] Hospitaltart: 07-07-2022 End: 94-04-5301buhmnwnlkeKRX Jennifer Kaple Work Phone: [facility] Work Phone: Start: 20-17-2885Mksatjkpz encounterJennifer KapleFPG Family Medicine SandschroederyStart: 06-30-2022 End: 79-72-6198xtgsxlhbwrEfhvdzkl Kaple Other Buffer Other Start: 69-85-7277Dkoehctrs encounterJennifer KapleFPG Family Medicine [place]uskyStart: 06-27-2022 End: 10-01-0904zdljmxqyhaGzadydsh Kaple Other noYangaroo Other Start: 79-77-5756Gbogrwfjc encounterJennifer KapleFPG Family [facility] [place]kyStart: 06-26-2022 End: 69-61-8717udminbknbjIOCNMJMB KAPLEFacility:Z7Aydbj: 01-72-0182Pgxinm outpatient visit 40 minutesJennifer KapleFPG Family Medicine SanduskyStart: 52-53-6055Xxcmodjie encounterJennifer KapleFPG [facility] [place]kyStart: 06-26-2022 End: 91-80-5730Awfjrwtmm department patient visitDNP Lisa Johns Work Phone: [facility]-Emergency Room Work Phone: Start: 06-18-2022 End: 05-86-9390kuswzucgffHRX Lisa Andreas Work Phone: [facility] Work Phone: Start: 06-18-2022 End: 27-30-1817Ocpkqks encounter procedureDNJanny Lisa Andreas Work Phone: [facility] Work Phone: Start: 06-13-2022 End: 13-90-8774gnvadlcmsaBuzkdwfv Kaple Other noYangaroo Other Start: 15-03-9460Cfjmnofus encounterLisa Cullen [facility]onyStart: 06-09-2022 End: 08-47-1112qsjvqgffawOtuzrjnd Kaple Other noYangaroo Other Start: 34-52-3460Qskpzg outpatient visit 25 minutes Lisa Cullen [facility]onyStart: 06-03-2022 End: 50-75-0375dyqzznybtlRcuxpa Cundiff Other Buffer Other Start: 55-36-8174Rbcuyvzpt encounterRichard Wing [facility] ClinicStart: 30-05-7891Qabzepixeu RecurringDNP Lisa Johns Work Phone: [facility]-Weight Management Work Phone: Start: 05-19-2022 End: 40-01-1022jecrervfpuSeaxav Cundiff Other Buffer Other Start: 49-61-8469Qqqift-up encounterRichard Wing [facility] Care ClinicStart: 05-13-2022 End: 28-54-7208acfqltpcuwHyzqfy Cundiff Other noCoNarrative Builk Other Start: 26-92-2998Hlpkjgrxx encounterPrudencionirav Wing [facility] Hospitaltart: 04-28-2022 End: 59-80-3921lhvptzazztTeigdgbz Kaple Other noCoNarrative Builk Other Start: 25-39-7063Hjzubz outpatient visit 25 minutes Lisa Cullen [facility]onyStart: 41-61-2725Ergikmetf encounter Lisa Cullen Primary CareStart: 04-24-2022 End: 07-13-3027pdurmcxfbiYdbiciky Kaple Other noCoNarrative Builk Other Start: 66-32-5111Qvtfzoavz encounterJennifer KapleFPG Primary CareStart: 28-76-9732Vvpzpy outpatient visit 25 minutesJennifer KapleFPG Family Medicine [facility]onyStart: 04-23-2022 End: 11-66-9465yzgmhpdsyuOTT Lisa Johns Work Phone: [facility] Work Phone: Start: 04-23-2022 End: 37-39-0415Lyihvng encounter procedureDNP Lisa Johns Work Phone: [facility] CtrStart: 04-14-2022 End: 58-03-8986hnrvxucptxRxomublh Kaple Other noYangaroo Other Start: 61-63-7642Bntoodpii encounterJennifer KapleFPG Family Medicine SandschroederyStart: 04-08-2022 End: 67-91-3281cpmdltzovnOxznebyc Kaple Other noYangaroo Other Start: 64-49-0226Hwcnvdxfw encounterLisa Cullen [facility]onyStart: 67-10-0209Pgcjvhxcsb RecurringDEJAH Johns Work Phone: [facility]-Weight ManagementStart: 03-12-2022 End: 76-68-9128lktqfcftpyIrzstczp Kaple Other Buffer Other Start: 52-18-1665Eqtdhjdor encounterLisa Cullen [facility]onyStart: 03-04-2022 End: 21-47-7620nmhtzpjvqpSqfyzq Cundiff Other Yangaroo Other Start: 90-34-0419Lxumthqri Gavin [facility] Hospitaltart: 02-13-2022 End: 58-33-8827pddabxjywaWjryavww Kaple Other noYangaroo Other Start: 13-86-8436Pgzvno outpatient visit 25 minutes Lisa Cullen [facility]onyStart: 02-12-2022 End: 36-83-4685Nfakrsavz department patient visitDNP Lisa Johns Work Phone: [facility]-Emergency RoomStart: 02-10-2022 End: 70-95-0398xxtpfgmqzoETU Jennifer Kaple Work Phone: [facility] Work Phone: Start: 02-10-2022 End: 60-23-5864Pyyuesv encounter procedureDEJAH Johns Work Phone: [facility]-MRI Main CampusStart: 02-03-2022 End: 42-84-4476jjmjwtnjfwAIVXOYA AGAPITOKFacility:N2Niwxx: 01-23-2022 End: 28-10-1323Kjbjwhb encounter procedureDNP Lisa Johns Work Phone: [facility]-Lab Main CampusStart: 01-16-2022 End: 01-53-5058rctotbfzdoIlhwwwyl Kaple Other noYangaroo Other Start: 90-33-0493Olrevi outpatient visit 25 minutes Lisa Cullen [facility] [place]kyStart: 01-15-2022 End: 13-95-2694edzbcjbdheCotwtbpa Kaple Other [facility] Builk Other Start: 00-94-5111Ocniefpzq encounterJeanastasia Cullen [facility] Hospitalrt: 01-10-2022 End: 69-48-9528Bdipamh encounter procedureDNP Lisa Johns Work Phone: [facility]-MRI Main CampusStart: 45-40-2579Cxebgxifnf RecurringDNP Lisa Johns Work Phone: [facility]-Weight ManagementStart: 01-01-2022(Televisit) [facility] Start: 01-01-2022 End: 55-65-3356mborkzjlulYieakc Cundiff Other [facility] Builk Other Start: 11-21-2021 End: 33-92-7679ypaahidctvYpgkbrfb Kaple Other nort Builk Other Start: 11-04-3890Vgamrkaso encounterLisa Cullen [facility]onyStart: 11-19-2021 End: 71-04-4147apejoututaSbfppnk Binks Other noYangaroo Other Start: 71-72-5524Tlrrst outpatient visit 15 minutes Fred GoldsmithFPG Family Medicine [place]kyStart: 11-13-2021 End: 87-36-9556mweftkczuhWslvek Cundiff Other noYangaroo Other Start: 95-65-9004Ejqovs-up encounterRichard Chualifepoint health Coordinated Care ClinicStart: 10-25-2021 End: 00-77-2993rjjzkjynljMsmyhh Cundiff Other noYangaroo Other Start: 25-60-5662Ssftqrlzr encounterRichard Wing [facility] ClinicStart: 10-23-2021 End: 76-11-6956owhndrgclmESOMZXA KARASIKFacility:O8Mablu: 10-03-2021 End: 13-76-3670rzzsvoqvnuFmqx Fitt Other Buffer Other Start: 95-98-1652KWR [employer] 2-10 30MDawn [facility] Coordinated Care ClinicStart: 10-01-2021 End: 17-40-9764xdfqtqqbiwDmtmxg Cundiff Other noYangaroo Other Start: 19-01-7349Sboscojqt encounterRichard Wing [facility] ClinicStart: 09-25-2021 End: 60-44-9962oavxsawimlGfop Fitt Other noYangaroo Other Start: 55-74-6370Ndzdtccmm encounterRichard Wing [facility] ClinicStart: 09-16-2021 End: 89-56-5741hixbrzrerjYzcrwz Cundiff Other noYangaroo Other Start: 19-00-4849Swcymnrqc encounterRichard Wing [facility] ClinicStart: 09-13-2021 End: 33-04-1688wlnpokxxqcFwnlbh Cundiff Other noYangaroo Other Start: 65-82-0773Tbyrutfty encounterRichard Wing [facility] Care ClinicStart: 09-12-2021 End: 48-54-0836quqnhokrcaOawqau Cundiff Other noYangaroo Other Start: 57-13-3987Tmjceqoyg therapyRichard Wing [facility] Coord[facility] Care ClinicStart: 08-23-2021 End: 74-02-0982avwfcbnskiSwzs Fitt Other noYangaroo Other Start: 43-61-4943Cigmsuhol encounterDawángel ChamorroVan Buren County Hospital ClinicStart: 08-22-2021 End: 22-37-0028dzxgeikipmCnzsueqw Kaple Other noYangaroo Other Start: 94-43-5662Leynnd outpatient visit 10 minutes Lisa Cullen [facility]onyStart: 01-96-0404Zdfitcofp encounter Lisa Cullen Primary CareStart: 08-21-2021 End: 07-40-0346yurxnleqxmBcktncdz Kaple Other noYangaroo Other Start: 37-15-9609Jdijxevdr for general adult medical examination without abnormal findingsLisa Cullen Family [facility] [place] Start: 04-30-4592Ugwexmv preventive medicine new pt age 18-39yrsLisa MINOR Family [facility]onyStart: 05-07-2017 End: 85-69-6046EinhyjgkjjNdgjm E YountFacility:[facility]ITALtart: 04-09-2017 End: 79-61-4632Ekmsmaehe department patient visitGROUP [employer]Facility:[facility]: 04-06-2017 End: 08-34-7583EaeaitgxgbWzubr E YountFacility:SOMCStart: 03-06-2017 End: 90-43-2756QqpuiitgafMibhb E YountFacility:SOMCStart: 03-02-2017 End: 90-68-4177AygzkqetljTccjj E YountFacility:SOMCStart: 02-12-2017 End: 64-64-0830AisivsunbqZainj S TackettFacility:SOMCStart: 01-24-2017 End: 53-42-3887Jynyzeodp department patient visitDOIGLESAI [facility] Procedures DateProcedureProcedure DetailPerforming ClinicianStart: 82-09-0672Ppw brain brain stem w/o contrast materialMandie Bender MD Work Phone: Start: 18-31-8861Wkwutqnvfj lumbar spinal puncture w/fluor or ctDmaisha Bender MD Work Phone: Start: 70-46-6245Rkcxfoscj [#/volume] in BloodShane Mook Ritter MD Work Phone: Start: 25-09-6140Jkpbdovuzca timeShane Mook Ritter MD Work Phone: Start: 36-61-2203Wwzgm conduction studies 5-6 studies Lisandro Gonsalez MD Work Phone: Start: 47-35-3632Wdehlv-up visitFollow-Eleni BENDER Start: 01-10-2025 End: 85-17-1955Yvliyu field xm uni/bi w/interp extended examLloyd Sherwood MD Work Phone: Start: 55-83-1081Zarkz conduction studies 5-6 studies Lisandro Gonsalez MD Work Phone: Start: 20-69-9706RS OUTSIDE Galina Steven MD Work Phone (unformatted): [phone]: 11-13-2024 End: 76-52-2208EN OUTSIDE Galina Steven MD Work Phone (unformatted): [phone]: 93-33-9870CYCDINK TO [facility] [employer] SOCIAL WORKLloyd Sherwood MD Work Phone: Start: 61-80-2330Tpljtbx microbial cultureDriky Ivey MD Work Phone: Start: 16-63-0083Ygspuesgd microbial cultureDriky Ivey MD Work Phone: Start: 69-08-2370DNJ (PCR)Yoan Ivey MD Work Phone: Start: 60-04-2399Etof stain microscopyYoan Ivey MD Work Phone: Start: 28-54-8827US of head without contrastYoan Ivey MD Work Phone: Start: 76-86-3530Kszoq chest X-rayYoan Ivey MD Work Phone: Start: 86-12-6777Wcwiktkhwaduwna of left breast PHYSICIAN NO FAMILYStart: 76-36-2222Lgkguibul mammographyPHYSICIAN NO FAMILY Start: 35-70-2561Tuy us dx b-scan&namita a-scan sm pt enctrLloyd Sherwood MD Work Phone: Start: 06-14-2024 End: 21-37-6967Jbseza field xm uni/bi w/interp extended examLloyd Sherwood MD Work Phone: Start: 57-01-4862Ccarcrac tomography of thoracic spine without contrastDNP Lisa Johns Work Phone: Start: 97-16-5572ZI cervical spine without contrastDNP Lisa Johns Work Phone: Start: 72-56-1687RG of head without contrastDNP Lisa Johns Work Phone: Start: 14-40-5778FK of lumbar spine without contrast DNP Lisa Johns Work Phone: Start: 44-49-6896Uxwdzfgdthag ophthalmic imaging optic nerveStephanie L Anil OD Work Phone: Start: 84-12-2386Xqvtrn scan veins of upper limbDNP Lisa Johns Work Phone: Start: 80-62-5751Wveiw X-ray of right forearmDNP Lisa Johns Work Phone: Start: 77-23-5397Ijtrs X-ray of right handDNP Lisa Johns Work Phone: Start: 22-29-9720Niqrn X-ray of right hipDNP Lisa Johns Work Phone: Start: 64-09-3425Hndrhxif tomography of abdomen and pelvis with contrastDNP Lisa Johns Work Phone: Start: 18-36-0901Yldgpwhedl examination sacroiliac jnts <3 viewsAlem Stovall MD Work Phone: Start: 01-58-7191HJX (PCR)DNP Lisa Johns Work Phone: Start: 75-98-9511Ipxlwanezrxlr of transfusion reaction DNP Lisa Johns Work Phone: Start: 46-49-3609BY cervical spine without contrastDNP Lisa Johns Work Phone: Start: 84-16-3417GX of head without contrastDNP Lisa Johns Work Phone: Start: 97-27-0487Xvtqk culture for bacteria, including anaerobic screenDNP Lisa Johns Work Phone: Start: 41-66-1826Voqzscmmjol Panel (PCR)DNP Lisa Johns Work Phone: Start: 28-02-8593Bqpduinyetils pyogenes antigen assay DNP Lisa Johns Work Phone: Start: 77-29-2630Dgdzz chest X-rayDNP Lisa Johns Work Phone: Start: 78-00-4697Nxriutra tomography of abdomen and pelvis with contrastDNP Lisa Johns Work Phone: Start: 85-40-1498Qohjfwiuoics cholecystectomyDNP Lisa Johns Work Phone: Start: 11-61-9076Sb maxillofacial w/contrast material Chance Vera MD Other Phone: Start: 47-40-4067Axjer metabolic panel calcium total Laila Cam Penny BALL THREAD MACHINE TENDER-OPEN CLAIMS REPRESENTATIVE Other Phone: Start: 12-40-5736XO of abdomen and pelvis without contrastDNP Lisa Johns Work Phone: Start: 68-51-8949EYVV-CoV-2, Influenza & RSV (PCR)DNP Lisa Johns Work Phone: Start: 71-71-0147Rucftvddtgnxbfb of left breastDNP Lisa Johns Work Phone: Start: 55-89-0458Oekfd X-ray of left handDNP Lisa Johns Work Phone: Start: 91-59-8067Ufpnl X-ray of right handDNP Lisa Johns Work Phone: Start: 48-40-9399Fsh routine ecg w/least 12 lds i&r onlyCcf ProviderStart: 27-62-1208Ibzbxgzwnxdw/tazobactamJeanastasia Johns Other Start: 06-80-0973Nhitz cultureDNP Lisa Johns Work Phone: Start: 67-98-1440Tmhrs chest X-rayDNP Lisa Johns Work Phone: Start: 54-14-1733Vdpmwxwhz mammographyDNP Lisa Treviñodaniel Work Phone: Start: 98-04-9976Hstpuipdmczrsmw of left breastDNP Lisa Johns Work Phone: Start: 51-71-2876B-ray of lumbar spine, four or more viewsDNP Lisa Johns Work Phone: Start: 17-05-6000ZZY venographyDNP Lisa Johns Work Phone: Start: 37-50-2266UFB of headDNP Lisa Johns Work Phone: Start: 45-33-9591SLVFI SIGNSDOUGLAS HOYStart: 42-97-6082ZWFDQENPF MONITORINGDOUGLAS HOYStart: 29-11-9814IGX 12-LEADDOUGLAS HOY Aerobic microbial cultureDNP Lisa Johns Work Phone: Anaerobic microbial cultureDNP Lisa Johns Work Phone: H/O: hysterectomyH/O: hysterectomyDNP Lisa Johns Work Phone: History of cholecystectomyHx of cholecystectomyDNP Lisa Johns Work Phone: Investigation of transfusion reactionDNP Lisa Johns Work Phone: Investigation of transfusion reactionDNP Lisa Johns Work Phone: Plan of Treatment DateCare ActivityDetailAuthorStart: 80-45-1961Oluerwpj (RZV) Vaccine (1 of 2) Shingles (RZV) Vaccine (1 of 2)[facility] HOSPITALKodiak Networks SYSTEMStart: 06-15-2025 End: 20-87-3397Regtjef encounter ajzwsvqvx13/05/2026 1:45 PM EST Office Visit [facility] [address] [place] [address] [place] [address] [place], [place] [id number] Next Available [facility] [place] Comment on above:Next Available New PatientStart: 05-16-2025 End: 99-78-3453Jcmqgsk encounter uphlyhwri69/06/2026 9:30 AM EST Office Visit [facility] [place] [address] [place] [address] Nati Noble PA-C [address] [place] [address] Next Available New PatientC[facility] [place] IslandComment on above:Next Available New PatientStart: 02-13-2025 End: 00-42-0376Aqlgvgq encounter smmtvvcan95/06/2025 7:30 AM EDT Office Visit [facility] Ophthalmology [address] [address] Lloyd Sherwood MD [address] [place] [address] Please set the patient up for a 1 month virtual visit for IIHOphthalmology Comment on above:Please set the patient up for a 1 month virtual visit for IIH Start: 02-02-2025 End: 79-60-8349Duckdlh encounter procedureNeurologyComment on above:botoxLBP botox 200u (07/10/2025) 01/19 SCStart: 01-30-2025 End: 42-55-0848Ntzqzeblznxu consultation with csazssy0901/30/2025 9:00 AM EDT Telemedicine [facility] [id number] [place] [address] Mandie Bender MD [address] [place] [address] post [facility] MVHComment on above:post LPStart: 01-26-2025 End: 46-09-9307CMLLXPK PROCEDURESSPECIAL PROCEDURES 01/26/2025 1:00 PM EDT [facility]Start: 01-20-2025 End: 38-80-6371jciwhhsnosIimhnwuir [facility] FHCComment on above: Disturbance of skin sensation [R20.9]L>R LEr L>R LEStart: 01-10-2025 End: 26-41-5964Nbhdtfk encounter bdruutkwa18/02/2025 8:30 AM EDT Office Visit [facility] Ophthalmology [address] [address] Lloyd Sherwood MD [address] [place] [address] Please schedule this patient for a 4 month return to clinic visit, the indication is IIHOphthalmologyComment on above:Please schedule this patient for a 4 month return to clinic visit, the indication is IIHStart: 45-27-5028DDIEI-19 Vaccines ( season)COVID-19 Vaccines ( season)[facility] ColumbusStart: 87-09-9434Gfwmhdope vaccinationChildren's Hospital for Rehabilitationtart: 01-05-2025 End: 46-97-2126uferpoijuj93/28/2025 5:[address] [facility] Neurology [address] [place] [address] Zenaida Landrum DO [address] [place], [place] [id number] KHAN VSMANeurology Comment on above:KHAN VSMAStart: 01-05-2025 End: 18-60-3535Itlhmym encounter ajcnmjedv64/28/2025 3:30 PM EDT Office Visit Neurology [address] [place] [address] Zenaida Landrum DO [address] [place], [place] [id number] F/u Trip to ER and admittedNeurologyComment on above:F/u Trip to ER and admitted Start: 01-03-2025 End: 62-87-9699jpggybeoyn17/26/2025 3:[address] [facility] Neurology [address] [place] [address] Bebe Thomas MD [address] [place] [address] Go back over what was talked about after procedureNeurologyComment on above:Go back over what was talked about after procedureStart: 12-30-2024 End: 22-11-8935Xjaowhcbf to same day surgery hltelh5212/30/2024 1:22 PM EDT - 12/30/2024 4:23 PM EDT Surgery Admitting [address] [place] [address] Bebe Thomas MD [address] [place] [address] NON-SELECTIVE CATH PLACEMENT THORACIC AORTA W/ ANGIOGRAPHY OF THE EXTRACRANIAL CAROTID VERTEBRAL AND/ORINTRACRANIAL VESSELS BILATERAL W/ ANGIOGRAPHY OF THE CERVICOCEREBRAL ARCHAdmittingComment on above:NON-SELECTIVE CATH PLACEMENT THORACIC AORTA W/ ANGIOGRAPHY OF THE EXTRACRANIAL CAROTID VERTEBRAL AND/OR INTRACRANIAL VESSELS BILATERAL W/ ANGIOGRAPHY OF THE CERVICOCEREBRAL ARCHStart: 12-30-2024 End: 29-51-3382Aoxbvjwysw tvigktabvjga73/22/2025 1:22 PM EDT Anesthesia Event Admitting [address] [place] [address] Crow Allen MD [address] [place] [address] AdmittingStart: 12-30-2024 End: 17-16-0691Ocvtjtsu cath thor aorta angio intr/xtrcranl artNON-SELECTIVE CATH PLACEMENT THORACIC AORTA W/ ANGIOGRAPHY OF THE EXTRACRANIAL CAROTID VERTEBRAL AND/OR INTRACRANIAL VESSELS BILATERAL W/ ANGIOGRAPHY OF THE CERVICOCEREBRAL ARCH IIH (idiopathic intracranial hypertension) Migraine headaches 12/30/2024 1:22 PM EDTMC MAIN PAVILIONStart: 68-22-9247Efvsjqozgi hospital visit by erzglkxmi28/22/2025 1:22 PM EDT Hospital Encounter Admitting [address] [place] [address] Bebe Thomas MD [address] [place] [address] IIH (idiopathic in tracranial hypertension) [G93.2], Migraine headaches [G43.909]AdmittingComment on above:IIH (idiopathic intracranial hypertension) [G93.2], Migraine headaches [G43.909]Start: 12-28-2024 End: 56-53-4080zcbheerafd70/20/2025 12:[address] [facility] Neurology [address] [place] [address] Loraine Puente MD [address] [place] [address] KHAN VSMANeurology Comment on above:KHAN VSMAStart: 12-27-2024 End: 88-32-6800Etboujnfni ebiroygvpifa09/19/2025 1:20 PM EDT PAT Pre Anesthesia [address] [place] [address] IIH(idiopathic intracranial hypertension) [G93.2]Pre AnesthesiaComment on above:IIH (idiopathic intracranial hypertension) [G93.2]Start: 12-22-2024 End: 52-94-0184Geehfdwaf to same day surgery jyofuw0512/22/2024 9:00 AM EDT - 12/22/2024 11:40 AM EDT Surgery INTERVENTIONAL RADIOLOGY [address] [place] [address] Bebe Thomas MD [address] [place] [address] SELECTIVE CATH PLACEMENT COMMON CAROTID OR INNOMINATE ARTERY BILATERAL W/ ANGIOGRAPHY OF THE IPSILATERAL EXTRACRANIAL CAROTID CIRCULATION AND ALL ASSOCIATED W/ ANGIOGRAPHY OF THE CERVICOCEREBRAL ARCHHL INTERVENTIONAL RADIOLOGYComment on above:SELECTIVE CATH PLACEMENT COMMON CAROTID OR INNOMINATE ARTERY BILATERAL W/ ANGIOGRAPHY OF THE IPSILATERAL EXTRACRANIAL CAROTID CIRCULATION AND ALL ASSOCIATED W/ ANGIOGRAPHY OF THE CERVICOCEREBRAL ARCHStart: 12-22-2024 End: 41-72-9300Sbxoj cath carotid/innom art angio xtrcranl artSELECTIVE CATH PLACEMENT COMMON CAROTID OR INNOMINATE ARTERY BILATERAL W/ ANGIOGRAPHY OF THE IPSILATERAL EXTRACRANIAL CAROTID CIRCULATION AND ALL ASSOCIATED W/ ANGIOGRAPHY OF THE CERVICOCEREBRAL ARCHIIH (idiopathic intracranial hypertension) 12/22/2024 9:00 AM EDTHL IRStart: 93-01-2726Cjhwvdveyj hospital visit by physician 12/22/2024 9:00 AM EDT Hospital Encounter [facility] INTERVENTIONAL RADIOLOGY [address] [place] [address] Bebe Thomas MD [address] [place] [address] IIH (idiopathic intracranial hypertension) [G93.2]HL INTERVENTIONAL RADIOLOGYComment on above: IIH (idiopathic intracranial hypertension) [G93.2]Start: 12-22-2024 End: 44-73-5260Cnjjvpc encounter mpwnqipuk85/14/2025 8:40 AM EDT Office Visit Neurology Headache [facility] [address] [place] [address] [place] [address] [place] [address] headache clinic perferredNeurology Headache [facility] CenterCComment on above:headache clinic perferredStart: 12-19-2024 End: 28-35-5998Cbyjrxyjlgdc consultation with dhismep3712/19/2024 9:15 AM EDT Telemedicine [facility] [address] [facility] [id number] [place] [phone] Mandie Bender MD [address] [facility] [address] [place], [place] [id number] go over imagingTHE [facility] MVHComment on above:go over imagingStart: 12-13-2024 End: 16-61-5726YXHMMODHVNPVU REC BINDING ABCleveland ClinicComment on above: Expected: 12/13/2024, Expires: 03/14/2025Start: 12-13-2024 End: 23-37-0123UUNXCHQTDSSMQ REC BLOCKING ABCleveland ClinicComment on above: Expected: 12/13/2024, Expires: 03/14/2025Start: 12-13-2024 End: 21-30-6166HLJBBQHZTJVCF RECEPTOR MODULATING ANTIBODYShel[facility] Work Phone: Comment on above:Expected: 12/13/2024, Expires: 03/14/2025Start: 12-10-2024 End: 39-25-6325Ruovsio encounter procedureNeurologyComment on above:Disturbance of skin sensation [R20.9]L>R LE *see comments*Start: 34-94-0528Woofwhx of treatment by patientFirsthealth Moore Regional Hospital - Hokeuenza [facility] HospitalStart: 12-05-2024 End: 08-27-9751Ejwcxue encounter procedureOphthalmologyComment on above:Please schedule this patient for a 5 month return to clinic visit, the indication is IIHStart: 10-12-2024 End: 75-12-9250Iynygta encounter uhnhkkcyc83/04/2025 11:00 AM EDT Office Visit Neurology [address] [place] [address] Sergei Harrington, BALL THREAD MACHINE TENDER.OPEN CLAIMS REPRESENTATIVE [address] [place], [place] [phone] INFUSION DAY 3NeurologyComment on above:INFUSION DAY 3Start: 10-12-2024 End: 89-84-9184surbjgsgeg31/04/2025 10:30 AM EDT Infusion Center Neurology [address] [place] [address] DHE 3NeurologyComment on above:DHE 3 Start: 10-11-2024 End: 68-40-1545uzayxbkpba28/03/2025 10:30 AM EDT Infusion Center Neurology [address] [place] [address] DHE 2NeurologyComment on above:DHE 2 Start: 10-10-2024 End: 77-76-3807Amhbxdh encounter icsdiaott53/02/2025 10:00 AM EDT Office Visit [facility] [address] [address] Shirley Mantilla, DO [address] [place] [address] consideration of nerve block for meralgia paresthetica in both legs Spine InstituteComment on above:consideration of nerve block for meralgia paresthetica in both legs Start: 10-07-2024 End: 19-25-3070Kjkmlc-up ofjwdhjdr90/30/2025 7:[address] [facility] Neurology [address] [place] [address] Zenaida Landrum, [address] [place] [address] follow up. Add on per providerNeurologyComment on above:follow up. Add on per providerStart: 32-79-2619Jjayucn CultureAerobic CultureMercy Health Tiffin Hospitaltart: 98-86-4116Qhongmigg CultureAnaerobic McKitrick Hospitaltart: 93-77-3951RbkyuuxyaMercy Health Tiffin Hospitaltart: 46-07-7937Iyextkmcztcqm fluid cultureMercy Health Tiffin Hospitaltart: 09-29-2024 End: 46-56-8044Xuabfpw encounter ppvbiqnmj34/22/2025 4:00 PM EDT Office Visit Cardiology [address] [place] [address] Mejia Bender MD [address] [place] [address] PhippsCardiologyComment on above:LASHAUN from Dr. Padillaart: 37-23-5086Qxtrxjyf to neurologAshtabula General Hospital Start: [id number]cy [facility]: 09-28[facility]2024 [facility] 09-26-2024 End: [id number]-up /19/2025 1:[address] [facility] Neurology [address] [place] [address] Zenaida Landrum, [address] [place] [address] Follow up and follow from EDNeurologyComment on above:Follow up and follow from EDStart: 09-23-2024 End: 09-17-0109Iebcb metabolic 2000 panel - Serum or PlasmaBASIC METABOLIC PANEL Lab Routine IIH (idiopathic intracranial hypertension) Chronic migraine without aura without status migrainosus, not intractable Encounter for medication monitoring Expected: 09/23/2024, Expires: 12/23/2024levelmission hospital ClinicComment on above:Expected: 09/23/2024, Expires: 12/23/2024Start: 09-23-2024 End: 31-43-0520DRF panel - Blood by Automated countCOMPLETE BLOOD COUNT Lab Routine IIH (idiopathic intracranial hypertension) Chronic migraine without aura without status migrainosus, not intractable Encounter for medication monitoring Expected: 09/23/2024, Expires: 12/23/2024[facility] Work Phone: Comment on above:Expected: 09/23/2024, Expires: 12/23/2024Start: 09-09-2024 End: 50-98-5392Aelydqh encounter procedureRheumatologyComment on above:Reason for visit: Enlarged zydjs9sz attempt: LVM in regards to r/s-AV Reason for visit: Enlarged liverStart: 09-02-2024 End: 88-85-6536Nadtjj-up ykalvvbbf55/25/2025 8:[address] [facility] Neurology Headache [facility] [address] [place] [address] Janee Montero, BALL THREAD MACHINE TENDER.OPEN CLAIMS REPRESENTATIVE [address] [place] [address] Follow upNeurology Headache [facility] CenterCComment on above:Follow upStart: 09-01-2024 End: 31-39-4784mmikcrspgy09/24/2025 3:[address] [facility] Neurology [address] [place] [address] Zenaida Landrum, [address] [place] [address] Return in about 3 months (around 09/01/2024).NeurologyComment on above:Return in about 3 months (around 09/01/2024).Start: 08-23-2024 End: 57-37-7352Oywquwy encounter qsznfdlyb32/15/2025 3:00 PM EDT Office Visit Internal Medicine [place] [address] [place], [place] [id number] Kaycee Blount, AMISHA.OPEN CLAIMS REPRESENTATIVE [address] [place] [address] Dx: Kidney stone [N20.0]; IIH (idiopathic intracranial hypertension) [G93.2]Internal Medicine [place]Comment on above:Dx: Kidney stone [N20.0]; IIH (idiopathic intracranial hypertension) [G93.2]Start: 08-16-2024 End: 93-14-1251jgkrxwhodbQslrybrnm [facility] FHCComment on above: Disturbance of skin sensation [R20.9]numbness and tinglingStart: 08-15-2024 End: 74-16-8177atfoftfxhp97/07/2025 8:[address] [facility] Neurology [address] [place] [address] Zenaida LandrumDO [address] [place] [address] Return in about 3 months (around 09/01/2024).NeurologyComment on above:Return in about 3 months (around 09/01/2024).Start: 08-05-2024 End: 33-26-5373IJL BY [facility] Medical CenterComment on above:Expected: 08/05/2024, Expires: 11/04/2024Start: 08-05-2024 End: 07-15-9371Swpbixksv (Vitamin B12) [Mass/volume] in Serum or PlasmaMercy Health – The Jewish HospitalComment on above:Expected: 08/05/2024, Expires: 11/04/2024Start: 08-05-2024 End: 95-28-2612Hxdzdjwqubv nuclear Ab panel - SerumMercy Health – The Jewish HospitalComment on above:Expected: 08/05/2024, Expires: 11/04/2024Start: 08-05-2024 End: 94-95-0099Cwzufsstac A1c in BloodShelby Memorial Hospital Work Phone: Comment on above:Expected: 08/05/2024, Expires: 11/04/2024Start: 08-05-2024 End: 04-57-6598IYSZY/TROY REDMOND,SERMercy Health – The Jewish HospitalComment on above:Expected: 08/05/2024, Expires: 11/04/2024Start: 08-05-2024 End: 23-23-2772XTGM ELECT SERUM WITH ERROL AND INTERPCleveland ClinicComment on above:Expected: 08/05/2024, Expires: 11/04/2024Start: 07-29-2024 End: 01-93-0487Tazqivz encounter aytagudwj13/21/2025 2:00 PM EDT Office Visit Pain Management [address] [place] [address] Cassandra Orozco, AMISHA.OPEN CLAIMS REPRESENTATIVE [address] [place] [address] 6 week follow upPain ManagementComment on above:6 week follow upStart: 07-22-2024 End: 19-96-9407qqqilztnlv33/14/2025 5:[address] [facility] Neurology Headache [facility] [address] [place] [address] [place] [address] [place] [address] Fol up on migrainesNeurology Headache [facility] Hospitalomment on above:Fol up on migrainesStart: 07-15-2024 End: 28-05-9420Pfjaumm encounter axwkklyru59/07/2025 2:00 PM EST Office Visit Pain Management [address] [place] [address] Cassandra Orozco, AMISHA.OPEN CLAIMS REPRESENTATIVE [address] [facility] [place] [address] 6 week follow upPain ManagementComment on above:6 week follow upStart: 07-11-2024 End: 50-81-3341vgnjsygtqj82/03/2025 9:30 AM EST [facility] [address] [facility] [place] [address] Cassandra Orozco, AMISHA.OPEN CLAIMS REPRESENTATIVE [address] [facility] [place] [address] MRI FUPain ManagementComment on above:MRI FUStart: 07-03-2024 End: 69-94-4269Gxshfcj encounter dntapsgbq74/23/2025 10:00 AM EST Appointment Radiology [address] [place] [address] MRIBRAIN WO IVCON RadiologyComment on above:MRI BRAIN WO IVCONStart: 07-01-2024 End: 85-67-2259Tazfjwc encounter procedureOphthalmologyComment on above:6 months 30-2, DFE and RNFL/GCAKidney stone [N20.0]Start: 06-14-2024 End: 09-13-2024 reactive protein [Mass/volume] in Serum or PlasmaShelby Memorial Hospital Work Phone: comment on above:Expected: 06/14/2024, Expires: 09/13/2024Start: 06-14-2024 End: 46-52-5180Dtkbotcprfd sedimentation rateMercy Health – The Jewish HospitalComment on above: Expected: 06/14/2024, Expires: 09/13/2024Start: 06-14-2024 End: 83-55-7151Fjmdtsj encounter procedureOphthalmologyComment on above:IIH - Being referred by Dr. Rodriguez upStart: 06-03-2024 End: 63-37-1169Bfvhjxs encounter epqollwno66/24/2025 9:30 AM EST Office Visit Pain Management [address] [place] [address] Cassandra Orozco APRN.OPEN CLAIMS REPRESENTATIVE [address] [place] [address] neck painPain ManagementComment on above:neck pain Start: 06-03-2024 End: 11-61-1954kenkosjgpg78/24/2025 8:00 AM EST [facility] Neu[facility] [address] [place] [address] Zenaida Landrum DO [address] [place] [address] MigrainesNeurology Comment on above:MigrainesStart: 05-27-2024 End: 30-93-4822Qneqplz encounter procedureNeurology PainComment on above: Polyarthralgia [M25.50]Start: 05-20-2024 End: 12-85-1740Ciliyfy encounter diomayefw79/10/2025 9:00 AM EST Office Visit Pain Management [address] [place] [address] [place] [address] [address] Back PainPain ManagementComment on above:Back PainStart: 04-22-2024 End: 22-50-3978ridaeieztq72/13/2024 11:00 AM EST [facility] [address] [place] [address] Inez Giraldo, PhD [address] [place] [address] Polyarthralgia [M25.50]Pain RecoveryComment on above:Polyarthralgia [M25.50] Start: 04-16-2024 End: 84-22-8489Cyehune encounter /07/2024 10:30 AM EST Office Visit Pain Management [address] [place] [address] [place] [address] [place] [address] Back PainPain ManagementComment on above:Back PainStart: 04-05-2024 End: 10-01-4172ywwokplerf25/26/2024 7:[address] [facility] Neurology [address] [place] [address] Emilee Cowart, BALL THREAD MACHINE TENDER.OPEN CLAIMS REPRESENTATIVE [address] [place] [address] [facility] NeurologyComment on above:IIHStart: 03-28-2024 End: 0289Avayvnx encounter eoyojiwif35/18/2024 8:30 AM EST Office Visit Pain Management [address] [place] [address] [place] [address] [place] [address] Back PainPain ManagementComment on above:Back PainStart: 02-24-2024 End: 55-23-5417Bcnipqs encounter uxvtqovqf74/16/2024 10:00 AM EDT Office Visit Neurology Pain [address] [place] [address] [place] [address] [place] [address] Chronic pain syndrome [G89.4]Neurology PainComment on above:Chronic pain syndrome [G89.4]Start: 02-01-2024 End: 74-50-5339Kimqq metabolic 2000 panel - Serum or PlasmaBASIC METABOLIC PANEL Lab Routine II (idiopathic intracranial hypertension) Expected: 02/01/2024, E xpires: 05/02/2024[facility] Work Phone: Comment on above:Expected: 02/01/2024, Expires: 05/02/2024Start: 74-72-2225Nxuqe-19 Vaccine ( season)Covid-19 Vaccine ( season)[facility]: 34-60-5659MZZPS-19 Vaccines ( season)COVID-19 Vaccines ( season)[facility] [place]Start: 42-27-8545Dqfmxnaqq vaccinationChildren's Hospital for Rehabilitationtart: 01-01-2024 End: 67-32-8578rqanfvmklv69/23/2024 8:[address] [facility] Neurology [address] [place] [address] Emilee Cowart, BALL THREAD MACHINE TENDER.OPEN CLAIMS REPRESENTATIVE [address] [place] [address] [facility] NeurologyComment on above:IIHStart: 95-30-2900Jxoqdi scan veins of upper limbUS venous duplex UE [facility]: 32-85-2541HW Upper extremity vein - [facility]: 11-06-2023 End: 32-62-6844Zogywcu encounter vrshqyvuh43/28/2024 9:00 AM EDT Office Visit [facility] Ophthalmology [address] [place] [address] Tamanna Ma, OD [address] [place] [address] I think to check my optic nerves due to IIHOphthalmology Comment on above:I think to check my optic nerves due to IIHStart: 10-12-2023 End: 89-46-8099qzeoizmrsi28/03/2024 2:[address] [facility] Rheumatology [address] [address] Alem Stovall MD [address] [place] [address] Return in about 13 days (around 10/12/2023) for virtual.RheumatologyComment on above:Return in about 13 days (around 10/12/2023) for virtual.Start: 10-12-2023 End: 01-11-2024 reactive protein [Mass/volume] in Serum or PlasmaC-REACTIVE PROTEIN Lab Routine Polyarthralgia Expected: 10/12/2023, Expires: 01/11/2024 [facility] Work Phone: comment on above:Expected: 10/12/2023, Expires: 01/11/2024Start: 10-12-2023 End: 02-09-5477Ayqbsjmhxex sedimentation rateSEDIMENTATION RATE, WESTERGREN Lab Routine Polyarthralgia Expected: 10/12/2023, Expires: 01/11/2024[facility] Comment on above:Expected: 10/12/2023, Expires: 01/11/2024Start: 10-09-2023 End: 02-48-2515fhrqbejsvn44/31/2024 8:00 AM EDT [facility] Neurology Headache [facility] [address] [place] [id number] [place] [address] [place] [address] Idiopathic intercranial hypertension, need to restart medicationNeurology Headache [facility] Hospitalomment on above:Idiopathic intercranial hypertension, need to restart medicationStart: 61-38-6777Hyhfz X-ray of right hipXR hip RT min 2V(w/wo pelvis)*[facility]tart: 63-18-7239ZY Hip - right 2 ViewsMercy Health Tiffin Hospitaltart: 09-29-2023 End: 77-04-2077WMP BY IFA [facility] HospitalComment on above:Expected: 09/29/2023, Expires: 12/29/2023Start: 09-29-2023 End: 37-10-1244Kiszsz citrullinated peptide IgG Ab [Units/volume] in Serum or PlasmaShelby Memorial Hospital Work Phone: comment on above:Expected: 09/29/2023, Expires: 12/29/2023Start: 09-29-2023 End: 52-34-9076VOD double strand Ab [Units/volume] in Serum by Immunoassay [facility] HospitalComment on above:Expected: 09/29/2023, Expires: 12/29/2023Start: 09-29-2023 End: 84-72-5483Znshipprsay nuclear Ab panel - SerumMercy Health – The Jewish HospitalComment on above:Expected: 09/29/2023, Expires: 12/29/2023Start: 09-29-2023 End: 69-18-3512NHRSK ANTICOAG PLCleveland ClinicComment on above:Expected: 09/29/2023, Expires: 12/29/2023Start: 09-29-2023 End: 80-57-5681TPXBCHX ELECTROPHORESIS SERUM W/INTERPCleveland ClinicComment on above:Expected: 09/29/2023, Expires: 12/29/2023Start: 02-09-9608Mviqspzwuipxx fluid cultureMercy Health Tiffin Hospitaltart: 88-30-0799Tbxfwxvl identified in Blood by CultureMercy Health Tiffin Hospitaltart: 08-23-2023 Blood culture for bacteria, including anaerobic screenBlood CultureMercy Health Tiffin Hospitaltart: 07-29-2023 End: 69-94-8459JakyyqcjfMercy Health Tiffin Hospitaltart: 53-83-3126PY Abdomen and Pelvis WO contrastMercy Health Tiffin Hospitaltart: 21-19-6708EZ of abdomen and pelvis without contrastCT abdomen pelvis wo [facility]: 67-66-0326Jllvs microalbumin profileDTaP,Tdap,Td Vaccine (2 - Td or Tdap)[facility]: 30-56-8356Fmvpjdvozp Health Screening Behavioral Health ScreeningChildren's Hospital for Rehabilitationtart: 38-50-6168Qcttg-19 Vaccine ()Covid-19 Vaccine ()[facility]: 09-07-1153Imwxvfxkz vaccinationInfluenza Vaccine (#1)[facility]ITALK[facility] Start: 07-18-2022 End: 80-94-0865Jecjg 1996 panel - Serum or PlasmaLIPID PANEL BASIC Lab Routine Atypical chest pain Expected: 07/18/2022, Expires: 3CGu[facility] Work Phone: Comment on above:Expected: 07/18/2022, Expires: 09/17/2022Start: 18-75-6678XOYCXBBQXM ASSESSMENTDEPRESSION ASSESSMENTChildren's Hospital for Rehabilitationtart: 39-10-2363Jjtjdtif burgdorferi DNA assayDayton Children'S Hospital Ctr Work Phone: Start: 21-06-4466Yigrgbcgomytk fluid cultureDayton Children'S Hospital [facility]tr Work Phone: Start: 41-58-3145Jzydmqmxs vaccinationINFLUENZA (#1) [facility]: 24-94-7011GPP TESTINGHPV TESTINGChildren's Hospital for Rehabilitationtart: 99-00-3064Vlnftnsbx for malignant neoplasm of cervixHPV TestingMercy Health – [facility] Jewish Hospital Start: 69-47-5504EDQ Vaccine (1 - 3-dose SCDM series)HPV Vaccine (1 - 3-dose SCDM series)[facility]: 83-16-0659WJY Vaccine (optional start 27-45 years)HPV Vaccine (optional start 27-45 years)[facility]: 46-09-1542HXH Vaccines (1 - 3-dose SCDM series)HPV Vaccines (1 - 3-dose SCDM series)[facility] [place]Start: 25-10-8258Ffihwflsb for malignant neoplasm of cervix [facility] [place]Start: 57-73-5282MRM TESTINGPAP TESTINGChildren's Hospital for Rehabilitationtart: 77-59-7273Iodhyknel for malignant neoplasm of cervixChildren's Hospital for Rehabilitationtart: 41-09-0513IWbP/Tdap/Td Vaccines (1 - Tdap)DTaP/Tdap/Td Vaccines (1 - Tdap) [facility] [place]Start: 44-54-2577Fvppsbpsw A (HAV) Vaccine (optional start 19+ years)Hepatitis A (HAV) Vaccine (optional start 19+ years)[facility] Start: 99-61-7620Hkulbsvgd B Vaccine (1 of 3 - 19+ 3-dose series)Hepatitis B Vaccine (1 of 3 - 19+ 3-dose series)[facility]: 01-59-7253Ainrzipfk B Vaccines (1 of 3 - 19+ 3-dose series)Hepatitis B Vaccines (1 of 3 - 19+ 3-dose series)[facility] [place]Start: 98-12-7610Riiqkbokqvga vaccinationPneumococcal Vaccine (1 of 2 - PCV)[facility]: 73-13-4085Wdwnashecxau Vaccines: Pediatrics (0 to 5 Years) and At-Risk Patients (6 to 49 Years) (1 of 2 - PCV) Pneumococcal Vaccines: Pediatrics (0 to 5 Years) and At-Risk Patients (6 to 49 Years) (1 of 2 - PCV)[facility] [place]Start: 65-19-9593Gqaqr microalbumin profile DTAP,TDAP,TD (1 - Tdap)[facility]: 49-04-8537Mxqvao PCP Team Chronic Disease VisitAnnual PCP Team Chronic Disease VisitChildren's Hospital for Rehabilitationtart: 02-71-5370Nxrzfnd ScreeningAnxiety ScreeningChildren's Hospital for Rehabilitationtart: 07-29-2003 Depression ScreeningDepression ScreeningChildren's Hospital for Rehabilitationtart: 07-29-2003 HEPATITIS C SCREENINGHEPATITIS C SCREENINGChildren's Hospital for Rehabilitationtart: 07-29-2003 Hepatitis C screeningChildren's Hospital for Rehabilitationtart: 85-68-7309XOR SCREENINGHIV SCREENING [facility]: 07-60-7290RCZ screeningHIV ScreeningMercy Health – [facility] Start: 26-92-4482Uugnwbp + diphtheria + acellular pertussis vaccine (product) Tdap BoosterTHE [facility] SYSTEMStart: 02-43-4580PAW screeningTHE [facility] SYSTEMStart: 27-05-8865JAV Vaccines (1 - 3-dose series)HPV Vaccines (1 - 3-dose series)[facility] [place]Start: 83-61-5746Nmeknfucydek vaccinationPneumococcal Vaccine (1 of 2 - PCV)[facility]: 67-27-3464UHDIE-19 VACCINE (#1) COVID-19 VACCINE (#1)[facility]: 90-51-7946LJZLGKOIK B (1 of 3 - 3- dose series)HEPATITIS B (1 of 3 - 3-dose series)[facility]: 20-87-3877Nglldwodd B vaccinationHepatitis B (HBV) Vaccine (1 of 3 - 3-dose series)[facility] SYSTEMStart: 76-30-5408Elbgfuinu for malignant neoplasm of breastMammography shared decision making (35 through 39 years)THE [employer] SYSTEMAngiotensin converting enzyme [Enzymatic activity/volume] in Cerebral spinal fluidDayton Children'S Hospital Ctr Work Phone: Bacteria identified in Unspecified specimen by Aerobe cultureDayton Children'S Hospital Ctr Work Phone: Bacteria identified in Unspecified specimen by Aerobe cultureSouthview Medical CenterBacteria identified in Unspecified specimen by Anaerobe cultureDayton Children'S Hospital Ctr Work Phone: Bacteria identified in Unspecified specimen by Anaerobe cultureSouthview Medical CenterBacteria identified in Urine by CultureSouthview Medical CenterBorrelia burgdorferi DNA assayDayton Children'S Hospital Ctr Work Phone: End: 92-55-7943UAQ COMPLETEECG COMPLETE ECG Routine Atypical chest pain 1 Occurrences starting 07/18/[address] [place] [address] Work Phone: Comment on above:1 Occurrences starting 07/18/2022 until 07/19/2023ECG COMPLETEECG COMPLETE ECG 07/18/2022 11:20 AM ESTShelby Memorial Hospital End: 61-72-5180EcfvaerpntjlnnuiTHZK Cardiology Routine Atypical chest pain 1 Occurrences starting 07/18/2022 until 07/19/2023[facility] Work Phone: Comment on above:1 Occurrences starting 07/18/2022 until 07/19/2023 End: 06-96-9736PCE(NEURO/NI)[facility] HospitalComment on above:1 Occurrences starting 08/05/2024 until 08/05/2025IR CEREBRAL ARCH & THREE VESSELIR CEREBRAL ARCH & THREE VESSEL Radiology Routine IIH (idiopathic intracranial hypertension) Ordered: 12/20/2024[facility] Work Phone: Comment on above:Ordered: 12/20/2024IR CEREBRAL ARCH & THREE VESSELIR CEREBRAL ARCH & THREE VESSEL Radiology Routine IIH (idiopathic intracranial hypertension) Ordered: 12/21/2024[facility] Work Phone: Comment on above:Ordered: 12/21/2024IR CEREBRAL ARCH & THREE VESSELIR CEREBRAL ARCH & THREE VESSEL Radiology Routine IIH (idiopathic intracranial hypertension) Migraine headaches Ordered: 12/22/2024[facility] Work Phone: Comment on above:Ordered: 12/22/2024Microscopic observation [Identifier] in Unspecified specimen by Gram [facility] Work Phone: End: 55-29-5099AT Brain WO contrastMRI BRAIN WO IVCON Radiology Routine IIH (idiopathic intracranial hypertension) 1 Occurrences starting 06/03/2024 until 07/03/2025[facility] Work Phone: Comment on above:1 Occurrences starting 06/03/2024 until 07/03/2025 End: 60-37-6160VJ Cervical spine WO contrastMRI CERVICAL SPINE WO IVCON Radiology Routine Chronic bilateral low back pain with bilateral sciatica Cervical radiculopathy Cervical spondylolysis 1 Occurrences starting 06/14/2024 until 07/14/2025[facility] ClinicComment on above:1 Occurrences starting 06/14/2024 until 07/14/2025 End: 51-48-3180AZ Lumbar spine WO contrastMRI LUMBAR SPINE WO IVCON Radiology Routine Chronic bilateral low back pain with bilateral sciatica1 Occurrences starting 06/14/2024 until 07/14/2025[facility] Work Phone: Comment on above:1 Occurrences starting 06/14/2024 until 07/14/2025 End: 99-33-3852UOF Head veins WO and W contrast IVMRV BRAIN WO/W IVCON Radiology Routine IIH (idiopathic intracranial hypertension) 1 Occurrences starting 06/03/2024 until 07/03/2025[place] ClinicComment on above:1 Occurrences starting 06/03/2024 until 07/03/2025Patient EducationDayton Children'S Hospital [facility]tr Work Phone: Patient referralDayton Children'S Hospital Ctr Work Phone: RF Guidance for injection of Lumbar spineIR LUMBAR PUNCTURE DIAGNOSTIC (MC) Radiology Routine IIH (idiopathic intracranial hypertension) Ordered: [address] [place] [address] Work Phone: comment on above:Ordered: 09/23/2024Therapeutic spinal puncture drainage csfLUMBAR PUNCTURE Procedures Routine IIH (idiopathic intracranial hypertension) Ordered: 09/23/2024[facility] ClinicComment on above: Ordered: 09/23/2024 End: 12-34-3276UQ Lumbar spine AP and LateralXR LUMBAR LIMITED 2V AP/LAT Radiology Routine Lumbosacral spondylosis without myelopathy Degeneration of intervertebral disc of lumbar region with discogenic back pain and lower extremity pain Chronic bilateral low back pain with bilateral sciatica 1 Occurrences starting 05/20/2024 until 06/19/2025[facility] Work Phone: Comment on above:1 Occurrences starting 05/20/2024 until 06/19/2025[place] [facility] Immunizations Immunization DateImmunizationNotesCare ProviderFacilityNEGATED: Highlighted row has not occurred!96-92-4307wynhbbrqn, seasonal, injectablePatient Objection Lisa Johns Other [place] Other Payers DatePayer CategoryPayerPolicy ID2025Medicaid HMO [id number] [facility] BLUE [facility]ARD PPO OOS [id number] [id number] [id number] [id number] 2.16.840.1.766412.3.57[id number] 2.16.840.1.199441.3.57[id number] 2.840.1.171703.3.57[id number] 2.16.840.1.800267.3.579.[id number] 2.840.1.438851.3.57[id number] 2.840.1.890879.3.57[id number] 2.840.1.965596.3.579.2.4[id number] 2..840.1.067856.3.57[id number] 2.840.1.455881.3.57[id number] 2.840.1.857409.3.579.[id number] 2.840.1.811412.3.579.2.91[id number] 2.840.1.065096.3.579.2.906989-44-9573Pikm Cross Blue [id number] 2.840.3.53840[id number] 2.16.840.1.315933.19Medicaid [id number]-zgmFlvz [id number] Auto/[id number] 219841ia-520s-8766-[id number] 2.16.840.1.59[id number] 2.16.840.1.173274.3.579.2.246 [id number] 2.16.840.1.93[id number] 2.16.840.1.57[id number] 2.16.840.1.043867.3.579.2.246 [id number] 2.16.840.1.280[id number] 2.16.840.1.821744.3.579.2.246 Social History DateTypeDetailFacilityUnknown if ever smokedNoresearch [facility] [place] Other Start: 07-18-2022 End: 49-92-2419Oqf Assigned At BirthChildren's Hospital for Rehabilitationtart: 03-24-2021 End: 29-76-4739Fvkgtdw smoking status NHISEx-smoker (finding)[facility]: 62-86-3444Xst Assigned At BirthFemalBethesda North HospitalTobacc smoking status NHISTobacco smoking consumption unknown [facility]: 06-09-2023 End: 42-22-6592Ujiwiww smoking status NHISCurrent some day smokerMercy Health Tiffin Hospitaltart: 07-29-2023 End: 56-14-2798Rhihfve smoking status NHISSmoker (finding)[facility]: 07-18-2022 End: 36-51-5174Haqdddb of Social functionChildren's Hospital for Rehabilitationtart: 07-03-2022 National Score (1-100), lower number is lower uugx68RegsbgzobChildren's Hospital for Rehabilitationtart: 64-81-1619Dxlvrm identityIdentifies as female gender (finding)[facility] Start: 09-29-2023 End: 53-91-2286Oanqcom smoking status NHISSmokes tobacco dailyMercy Health – The Jewish Hospital History of tobacco useCigarette SmokerChildren's Hospital for Rehabilitationtart: 09-29-2023 End: 92-26-0027Fkzqsjm intakeEx-drinker (finding)[facility]: 76-17-6211Ippjrwl Comment1 pack every 2 daysChildren's Hospital for Rehabilitationtart: 10-08-2023 End: 84-28-8676Ixnurgx use and exposureSmokeless tobacco non-userChildren's Hospital for Rehabilitationtart: 02-08-2024 End: 82-11-2772Nozfdos smoking status NHISNever smoked tobacco (finding) [facility]: 03-19-2024 End: 32-22-5887FzeXzuenj (finding)[facility] Hospitaltart: 43-77-8758Yjr Assigned At BirthNot on fileTHE NICHOLAS H NOYES [facility] Work Phone: Start: [phone] Follow upSDOH Follow upPromedica Defiance [facility] Work Phone: Hab the [employer], gas, oil, or water company threatened to shut off services in your home in past 12MoNoClwadsworth-r[facility] (I/We) worried whether (my/our) food would run out before (I/we) got money to buy more.Never trueChildren's Hospital for Rehabilitationtart: 01-26-2025 End: [id number] beverage intakeLifetime non-drinker (finding)Premier HealthHow often do you have a drink containing alcohol?NeverPremier Health NEGATED: Highlighted rowSouthview Medical Center Goals DatePatient GoalDesired Activity/StatePersonal health goal Functional Status Jode[id number] score [AUDIT-C]0 01/26/2025 11:40 AM EDT Radha River [facility] [id number] statusPremier Health [id number] Qyrovz20-95-6707Fzi you deaf, or do you have serious difficulty hearingNo 01/26/2025 11:38 AM Radha Forbes RN [facility] 48-30-4663Aez you blind, or do you have serious difficulty seeing, even when wearing glassesNo 01/26/2025 11:38 AM Radha Forbes RN [facility] 49-48-2024Ae you have serious difficulty walking or climbing stairsNo 01/26/2025 11:38 AM Radha Forbes RN [facility] SystemQiifsn21-11-5874Hx you have difficulty dressing or bathingNo 01/26/2025 11:38 AM Radha Forbes RN [facility] DaytonUdxbsm56-75-8112Pzdxpxz of a physical, mental, or emotional condition, do you have difficulty doing errands alone such as visiting a physician's office or shoppingNo 01/26/2025 11:38 AM Radha Forbes RN [facility] 14-10-1116Nwu you deaf, or do you have serious difficulty hearingNo 12/17/2024 10:21 AM Nilsa Puri RN [facility] HospitalJtgbjp97-33-0825Hwe you blind, or do you have serious difficulty seeing, even when wearing glassesNo 12/17/2024 10:21 AM Nilsa Puri RN [facility]08-09-2025Do you have serious difficulty walking or climbing stairsNo 12/17/2024 10:21 AM Nilsa Puri RN [facility]08-09-2025Do you have difficulty dressing or bathingNo 12/17/2024 10:21 AM Nilsa Puri RN [facility] HospitalTyhhmx02-12-0121Vrrjncn of a physical, mental, or emotional condition, do you have difficulty doing errands alone such as visiting a physician's office or shoppingNo 12/17/2024 10:21 AM Nilsa Puri RN [facility] HospitalNhfzpn74-96-5893Busmeeihvb statusPatient at BaselinePromedica Defiance [facility] Hospital Work Phone: Mental Status TjhgYflrfdggmlGlvqnbXuazogyz11-35-6276Nwffnpagt function findingPreACMC Healthcare System 18-16-1995Xomwwgp of a physical, mental, or emotional condition, do you have serious difficulty concentrating, remembering, or making decisionsNo 01/26/2025 11:38 AM EDT Radha River RN [facility] SystemCeqsco81-26-4700Ekdytmi of a physical, mental, or emotional condition, do you have serious difficulty concentrating, remembering, or making decisionsNo 12/17/2024 10:21 AM EDT Nilsa Lewis RN [facility] HospitalZkiegx10-41-3885Edkcutjeo functionCognitive Status Patient at Baseline [facility] Work Phone: Clinical Notes 08-21-2021 to 02-28-2025 Note Date & RartLzrrKazkibms65-08-6072 NoteOhio[facility]10-21-2025 NoteOhio[facility] Center10-20-2025 NoteOhio[facility] 02-27-2025 NoteOhio[facility] Center10-20-2025 NoteOhio[facility] Center10-17-2025 NoteOhio[facility]10-14-2025 NotePROCEDURE: MRI CSF FLOW STUDY ONLY CLINICAL INFORMATION: Headaches, IIH (idiopathic intracranial hypertension), Other headache syndrome, . COMPARISON: 01/16/2025 TECHNIQUE: Limited MR imaging of the brain was performed along with CSF flow study FINDINGS: Redemonstration of slightly low-lying cerebellar tonsils without evidence for Chiari I malformation. Partial opacification of the left-sided mastoid air cells may relate with mastoid effusion or inflammatory changes. Mild mucosal thickening of the ethmoid air cells. Skull base arterial flow voids are grossly patent. Mild mucosal thickening of the frontal sinuses and the ethmoid air cells. No evidence for significant CSF impedance noted at the foramen magnum. IMPRESSION: No convincing evidence for Chiari I malformation. Dictated by Jeancarlos Wilde M.D. Workstation ID:[id number] Headaches, IIH (idiopathic intracranial hypertension), Other headache syndrome [facility]10-14-2025 NotePROCEDURE: MRI CSF FLOW STUDY ONLY CLINICAL INFORMATION: Headaches, IIH (idiopathic intracranial hypertension), Other headache syndrome, . COMPARISON: 01/16/2025 TECHNIQUE: Limited MR imaging of the brain was performed along with CSF flow study FINDINGS: Redemonstration of slightly low-lying cerebellar tonsils without evidence for Chiari I malformation. Partial opacification of the left-sided mastoid air cells may relate with mastoid effusion or inflammatory changes. Mild mucosal thickening of the ethmoid air cells. Skull base arterial flow voids are grossly patent. Mild mucosal thickening of the frontal sinuses and the ethmoid air cells. No evidence for significant CSF impedance noted at the foramen magnum. [place] [id number] NoteOhiohealth Grant Medical Center09-29-2025 NoteOhiohealth Grant Medical Center09-25-2025 NoteOhiohealth [facility] Center09-25-2025 NoteOhiohealth Grant [facility] Center09-18-2025 Hospital Discharge instructions* Discharge Instructions* Margarita Dumont RN - 01/26/2025 3:04 PM EDT Intravenous Therapy Your care during hospitalization included intravenous therapy. Intravenous complications can develop after therapy is stopped or the catheter is removed. Observe the site for 2-3 days. If redness, ortenderness occurs at the site where your intravenous line was removed: Apply warm compresses (wash cloth) for 20 minutes, two to four times a day until symptoms improve. If symptoms continue or if the site drains, notify your physician s office. * Attachments The following attachments cannot be sent through Care Everywhere. * Spinal Tap (Lumbar Puncture): Post-op (Greek) documented in this encounterChildren'S Hospital Of ColumbusGnisbn54-39-2283 Nurse Note* Margarita Dumont RN - 01/26/2025 2:12 PM EDT Spoke to pt to confirm that she is NOT allergic to acetaminophen. Pt says that only allergic to oxycodone. [facility] ColumbusHjhdns38-29-7505 Nurse Note* Margarita Dumont RN - 01/26/2025 2:12 PM EDT Spoke to pt to confirm that she is NOT allergic to acetaminophen. Pt says that only allergic to oxycodone. documented in this encounterChildren'S Hospital Of ColumbusIvqghh46-40-7108 NoteOhiohealth Grant Medical Center09-12-2025 History of Present illness Narrative* Tavo Fisher MD - 01/20/2025 9:26 AM EDT UNIVERSAL PROTOCOL / SAFETY CHECKLIST Procedure to be Performed: EMG Sign In: A Moment of CARE was completed. Personnel directly involved with the procedure wore the appropriate PPE (Personal Protective Equipment). Patient/Surrogate Stated/Verified: Patient name, Date of , Relevant allergies, and The intended procedure Time Out Communication: Intended patient and procedure match the source documents. Correct side/site marked and visible. Sign Out: SIGN OUT (optional for EMERGENT procedures): Post-procedure follow-up management communicated and Plan of Care Visit completed when applicable. [facility] Tavo Fisher MD documented in this encounterMer[facility]09-09-2025 Telephone encounter Note * Telephone Encounter - Gloria Alvarenga PA-C - 01/17/2025 9:32 AM EDT Please schedule an follow up with Dr. Osiel Cartagena. Gloria Alvarenga PA-C January 17, 2025 [facility] Work Phone: [phone]) 549-632109-09-2025 Miscellaneous Notes* Telephone Encounter - Gloria Alvarenga PA-C - 01/17/2025 9:32 AM EDT Please schedule an follow up with Dr. Osiel Cartagena. Gloria Alvarenga PA-C January 17, 2025 documented in this encounterMercy Health – [facility]09-08-2025 NoteOFFICE CONSULTATION: 01/16/2025 PATIENT: Karolina Dangelo : 1985 NEUROSURGEON: Mandie Bender M.D. Provider at Today's Visit: Kaycee Marrufo RN REFERRING: No ref. provider found PRIMARY: Lloyd Sherwood CHIEF COMPLAINT Headaches HISTORY Karolina Dangelo is a 39 year old right-handed female who presents for evaluation of IIH. Reports hysterectomy in 2012 and in October 2021 she was started on hormones and she noticed blurry vision for the first time. Reports in February of 2022 she lost her right eye vision for 3 months and had lumbar puncture with opening pressure of 34. Also, reported she would wake up daily with her arms tingling and severe hip pain and extremity pain/heaviness. She was started on Diamox and Ozempic and lost 40 pounds. Symptoms resolved and medications were stopped. Reports in April 2023 to August 2023 she had multiple illnesses (COVID, strep, and flu). In August, developed posterior neck pressure, dizziness, imbalance, forgetfulness, and dysphagia. [facility] and completed a lumbar puncture with opening pressure above 30. She was restarted on Diamox. Symptoms did improve after. Reports starting in August 2024 started getting posterior neck pressure, headaches, and arm/leg weakness. Pain would improve with laying down. This lasted a couple months. Reports was taking 1500 mg Diamox per day and did get kidney stones. Reports she has lost 49 pounds. She has also tried numerous medications with Neurology for headaches. 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 Reports when symptoms flare up they are debilitating and last for about a month. For the past 3 months she denies vision concerns and is taking 500 mg Diamox in the morning. Denies improvement in symptoms with recent LP. Reports no improvement in symptoms until she took Depakote. Patient had cerebral angiogram with neurovascular in [place] and pressures were not high enough for stent placement. PAST MEDICAL HISTORY: Past Medical History[1] CURRENT MEDICATIONS: Current Outpatient Medications: cetirizine (ZYRTEC) 10 mg tablet, Take 10 mg by mouth in the morning., Disp: , Rfl: albuterol 90 mcg/actuation Inhalation aerosol, Inhale 2 Puffs as directed every 4 hours as needed., Disp: , Rfl: acetaZOLAMIDE (DIAMOX SEQUEL) 500 mg capsule, Take 500 mg by mouth in the morning., Disp: , Rfl: MULTIVITAMINS W/C ORAL, , Disp: , Rfl: SINGULAIR 10 mg tablet, Take 10 mg by mouth in the morning., Disp: , Rfl: magnesium oxide (MAG-OX) 400 mg tablet, Take 400 mg by mouth in the morning., Disp: , Rfl: hydrOXYzine pamoate (VISTARIL) 50 mg capsule, Take 50 mg by mouth at bedtime as needed., Disp: , Rfl: divalproex (DEPAKOTE-ER) 500 mg ER-tablet, Take 500 mg by mouth in the morning and 500 mg before bedtime., Disp: , Rfl: amphetamine salt combination, 20 mg, (ADDERALL) 20 mg tablet, Take 20 mg by mouth in the morning. 10 mg in afternoon., Disp: , Rfl: chlorzoxazone (PARAFON FORTE DSC) 500 mg tablet, Take 500 mg by mouth every 6 hours as needed., Disp: , Rfl: nortriptyline (PAMELOR) 10 mg capsule, Take 10 mg by mouth in the morning., Disp: , Rfl: ketorolac (TORADOL) 10 mg tablet, Take 10 mg by mouth in the morning and 10 mg before bedtime., Disp: , Rfl: SURGICAL HISTORY: Past Surgical History[2] ALLERGIES: Morphine, Oxycodone-acetaminophen, Sulfa (sulfonamide antibiotics), Latex, Nickel, and Oxycodone REVIEW OF SYSTEMS There are no exam notes on file for this visit. PHYSICAL EXAMINATION Karolina presents to the office alone. VITAL SIGNS Today's height is 1.588 m (5' 2.5 ) and weight is 74.8 kg (165 lb). Karolina is oriented to person, place, time, and situation and provides good history. General: Appearance Same as stated age and alert, cooperative, pleasant Body habitus: overweight Body mass index is 29.7 kg/m??. Affect: Appropriate Neurological Exam Memory:Intact to recent and distant events Attention:Intact Fund of Knowledge Speech: Clear Cranial Nerves: Eyes:EOMI Pupils:PER Hearing:Normal to spoken voice Gait: fluent, steady Musculoskeletal: Moving all extremities appropriately with no observable focal deficits Pulmonary: NWOB REVIEW OF TESTS MRI brain 01/16/25: IMPRESSION: * No acute intracranial abnormalities. No evidence of intracranial mass, hemorrhage or acute infarct. * Mildly low-lying cerebellar tonsils extending up to 4 mm below the level of foramen magnum, not meeting criteria for Chiari malformation. * No specific imaging features IIH. DICTATED BY: COLLETTE CASTAÑEDA M.D. MRI lumbar spine 01/16/25: IMPRESSION: * No evidence of intraspinal or extraspinal collections to suggest a CSF leak. * Minimal discogenic degenerative changes at L5-S1 and multilevel facet arthrosis including severe facet arthrosis on the right at L5/S1. No signific (more content not included)...Provider [id number] NoteOhiohealth Grant Medical Center09-05-2025 History of Present illness Narrative* Zenaida Landrum DO - 01/13/2025 7:09 AM EDT Images from the original note were not included. Per patient request, reviewed imaging with radiology for patient concern of chiari which was not reported on imaging and not found on my personal review of the imaging. I measured from the Basion to the opisthison and there is no cerebellar ectopia or chiari ( I used the sag T2 C spine, series 18, image 9). Confirmed with radiology who kindly spent time reviewing the images (Dr MICHELLE) who confirmed no ectopia and no chiari and otherwise remains with partial empty sella and on CTA some flattening posterior globes and maybe minimal prominent CSF space around optic nerves, no signs of SIH Zenaida Landrum DO, MBA Headache Medicine Fellowship trained Adult Neurologist/ Board Certified Associate Staff, [facility], [facility] Neurological [place] documented in this encounterMercy Health – The [facility]09-02-2025 Telephone encounter Note * Telephone Encounter - Nati Noble PA-C - 01/10/2025 3:36 PM EDT Next Available New Patient Nati Umanajohn AND Dr. Martin (4-6 weeks later) No Imaging. IIH [facility]09-02-2025 Miscellaneous Notes* Telephone Encounter - Nati Noble PA-C - 01/10/2025 3:36 PM EDT Next Available New Patient Nati Umanajohn AND Dr. Martin (4-6 weeks later) No Imaging. IIH documented in this encounterMercy Health – The [facility]09-02-2025 NoteDate of Procedure 01/10/2025. Procedures Nurse Information Zipper Cutter: . Start time: 9:40 AM. Stop time: [...] Interval Change Right Eye Better. Left Eye Better.[id number] NoteDate of Procedure 01/10/2025. Procedures Nurse Information Zipper Cutter: Laurel Winkler, PhD. Start time: 10:23 AM. Stop time: 10:23 AM. NFL Interpretation Right Eye Inferior loss. Interval Change Right Eye Stable. Left Eye Stable. Notes OCT: normal average pRNFL thickness OU; normal average GCL +IPL thickness OU [id number] NoteOhiohealth Grant Medical Center09-02-2025 History of Present illness Narrative* Lloyd Sherwood MD - 01/10/2025 11:17 AM EDT Karolina Nicole is a 39 [...] patient. She then [facility] in September of 2023 and was put on diamox. She was followed by Dr. Goldberg as well as Dr. Landrum. At initial [...] CSF analysis was not yet received from [facility], withseveral results discussed during the virtual that [...] as to how she was doing via [employer]. At her 12/13/2024 virtual visit she reported [...] to take a break due to her legs becoming weak -- she was pending repeat [...] she worked with to examine her to [facility]. She still had pulsatile tinnitus despite having [...] sought an opinion from an outside neurosurgeon. ASSESSMENT/PLAN: (G93.2) IIH (idiopathic intracranial hypertension) (primary encounter diagnosis) (H53.453) Other localized visual field defect, bilateral (H93.A9) Pulsatile tinnitus At her 01/10/2025 return visit she reported [...] evaluation. Care discussed with neurology as well. I will then plan to see her back via virtual visit in 1 month, unless concerns arise in the interim, for which she was provided my contact information and encouraged to reach out. ER presentation is otherwise advised for any acute onset neurological deficits. Our [facility] same day access clinic canbe reached at: [phone]. Lloyd Sherwood MD 2:36 PM 01/10/2025 FOR ADMINISTRATIVE PURPOSES ONLY: My impression of this case is based upon an assessment of the patient's subacute on chronic problems listed above that pose a threat to visual and neurologic function. 45 minutes were spent on total patient care on the day of service that includes both tjmt-xo-fwpk and qhe-xkwz-jd-face time. This time was separate from any [...] applicable), 5 communicating results to the patient/family, 12 minutes counseling /educating the patient, 5 minutes documenting clinical information into the electronic health recordof the patient, 1 minute ordering tests/medications/procedures, and 7 minutes coordinating care forthe patient. I communicated with Dr. Ivey and Dr. Landrum regarding the management of this patient. The assessment and plan were discussed extensively with the patient who was amenable and voiced understanding. documented in this encounterMercy Health – [facility]08-29-2025 Telephone encounter Note * Telephone Encounter - Daisha Duval RN - 01/06/2025 1:11 PM EDT Botox referral sent to pharmacy. Daisha Duval RN [facility]08-29-2025 Miscellaneous Notes* Telephone Encounter - Daisha Duval RN - 01/06/2025 1:11 PM EDT Botox referral sent to pharmacy. Daisha Duval RN documented in this encounterMercy Health – The Jewish Hospital08-28-2025 Instructions* Patient Instructions* Zenaida Landrum DO - 01/05/2025 7:51 PM EDT Recommended Headache Treatment Plan Discontinue nortriptyline (Pamelor) as it has not been effective I will submit a prior authorization for Botox injections Depakote 500 mg 2x daily - this medication may take several weeks to show full benefit Diamox per Dr Sherwood, A shunt may be an option in the future if you wish to discontinue Diamox due to side effects. This would require further discussion with your neurosurgeon. --Diamox (acetazolamide) is not effective for the treatment of headache pain (aside from acute mtn sickness), typically does not reduce migraine frequency, duration, or severity, Lifestyle measures: - Minimize stress. - Exercise 30 minutes per day. Being overweight is associated with a 5 times increased risk of chronic migraine. - Keep well hydrated and drink 6-8 glasses of water per day. Frequently Asked Questions about Botox Treatment for Chronic Migraine What is Botox and how does it work for chronic migraine? Botox (short for OnabotulinumtoxinA) is a medication that works by blocking pain signals. When injected into muscles, botox travels along the nerves connected to those muscles and towards the brainstem to reduce the release of pain inducing chemicals in the central nervous system. Botox helps blockpain signals at the level of the brain. For chronic migraines, Botox is injected into 7 specific muscles in the head and neck using very small needles. By calming overactive nerve activity and blocking pain signals, Botox can help prevent migraines and can significantly lower the number of headaches you might experience. Botox may reducemigraine frequency and severity significantly for 50-70% of chronic migraine patients. Where are the injections? Botox injections, for chronic migraine, involve a series of 31 injections into 7 different muscles using very small needles. These injections occur around the forehead, temples, back of the head, theneck, and shoulder area. What are the possible side-effects? Botox has very minimal side effects: the most common may be pain at the injection sites, mild bruising and a small amount of bleeding at the injection sites, mild headache or neck pain after treatment, You may experience flu-like symptoms after the injections, but this should be transient and will only last a few days. Muscle weakness around the injection site can occur. Temporary drooping eyelids (ptosis) is a rare but possible side-effect Does it hurt? The needles used in the procedure are extremely small and most patients tolerate the procedure withminimal discomfort. Some patients report mild pinching or stinging. How long does the procedure take? Botox is an outpatient procedure: no sedation is given, and you can drive yourself to/from your appointment - you will leave the same day! The duration of the procedure for the injections, once started, is typically 15- 20 minutes. How long will it take until the medication takes effect and I feel better? The Botox medication starts to kick into effect after about 1-2 weeks, it is not immediate. The first or second round of Botox injections may not provide much relief, but it is recommended tocontinue for at least a total of 2-3 rounds of injections, occurring every 12 weeks, to assess the benefit, prior to stopping the injections. After completion of 3 rounds of injections, you should make an appointment with your primary provider to discuss how well Botox works for you, and develop a long-term treatment plan. Insurance also requires this documentation for Botox renewals. Please be sure to keep a headache diary to discuss with your provider How long does the medication last? The effects of Botox for chronic migraines usually last around 10 to 12 weeks. After this time, youmay start to notice that your migraines return or become more frequent. Many people get Botox injections every 12 weeks (84 -91 days) to maintain its effectiveness in preventing migraines, based on what insurance allows. What about my other medications? At the start of Botox therapy, you will continue the medication plan as discussed with your provider. Please plan to make a follow-up appointment after the 3rd round of Botox to discuss long-term planning of your preventive medications. Is it approved by insurance? Many insurance companies will cover Botox treatment if a patient meets criteria for chronic migraine headache and has already tried other preventative options. It is important to share all previouslytried medications, including durations of trials and why you stopped taking the medication, with your provider, to help with this documentation. Please be aware that an approval or notification that no pre-certification is required is not equivalent to 100% coverage of payment by your insurance. We encourage you to check with your insurance company for specific benefit details before starting Botox to understand your coverage and any oiw-sj-tobjhf costs. Botox injections are scheduled every 12-13 weeks, per insurance. How long will it take to hear back about insurance approval? Once your provider has referred you for Botox treatment, our team will start the authorization process and contact you within 3-5 business days to schedule a Botox appointment in about 4 weeks while awaiting a decision from insurance. If you haven t heard from a nursing scheduler within 1-2 weeks, please call our office at [phone] (select option 1 for Botox schedulers). Feel free to contact us with any other questions or concerns about Botox: Clean Up Supervisor [phone] or [email or web address] Once my appointment is scheduled, how should I prepare? Botox treatments are quick, but you may want to plan for a few quiet hours or even a day or two of rest after the treatment to see how you individually response. Some people feel sore or tired, especially after the first treatments. Stock up on your acute rescue migraine treatments; though it is rare, migraines can flare in the few days immediately after administration of the treatment Please do not apply any makeup prior to your appointment Wear comfortable clothing: Since the injections are given in your head, neck and upper shoulder area, wear something that allows easy access to these areas. If you are also considering or also already undergoing cosmetic Botox (such as for wrinkles), it s important to let your provider know so you can discuss ideal timing of the Botox injections. We encourage you to check with your insurance company for specific benefit details before starting Botox to understand your coverage and any frj-jr-[id number] costs. Do I need a customer service driver? No; however, if it is the first time you are receiving Botox, it is encouraged to [facility]. What to avoid after the procedure? Lying down: For the first 4 hours after your treatment, we recommend you do not lie down or put pressure on your head, neck, or the areas where you had the Botox injections. This helps prevent the Botox from moving to other areas. Massaging the treated areas: Avoid rubbing or massaging your face, head, neck, or the areas where you had the Botox injections for 24 hours. This helps prevent the Botox from spreading to other areas. Washing the treated areas: Avoid rubbing or applying pressure to your head, neck, face or the areas where you had the Botox injections for 24 hours. This helps prevent the Botox from spreading to other areas. Strenuous exercise: Avoid intense physical activities like running, heavy lifting, or anything that causes you to sweatheavily for at least 24 hours. Hair treatments or dyes: Avoid getting any hair treatments, including coloring or chemical treatments, for 24 hours before or after your Botox injections. The chemicals from these treatments can affect the Botox. When should I call my healthcare provider with concerns after receiving Botox? In general, side-effects are rare. Please call your provider s office if you experience any side-effects that are bothersome to you or persistent: Severe headache that doesn t go away or gets worse. Vision changes: such as blurry vision or difficulty seeing clearly. Drooping eyelid or muscle weakness that doesn t improve or becomes worse. Trouble swallowing or breathing difficulties. Severe pain or swelling at the injection sites that doesn t go away. Signs of an allergic reaction, such as rash, itching, or difficulty breathing Will I need Botox my whole life? Botox for chronic migraines is a long-term treatment, but it is not necessarily something you will need to use for the rest of your life. Many people use Botox treatments for several years to help prevent migraines. Over time, you and your provider may find that the treatment helps so much that youcan space out the timing of injections or stop them altogether as your migraine condition calms down. Your provider will regularly check how well the Botox is working for you, and together you can decide how often you need treatments. Can I receive cosmetic Botox while getting Botox for my migraines? Please discuss these details with your primary provider. To prevent the development of antibodies against onabotulinumtoxinA and potential overdose, careful coordination for timing of the procedures close together is necessary, to avoid potential complications and maximize benefit. Can I get Botox while or ? Botox for migraine is not FDA approved for use in and there is limited available data forthe analysis of the use of onabotulinum toxin A for the treatment of chronic migraine in . Please discuss the details with your primary provider regarding treatment if you are planning to conceive, currently , or . documented in this encounterMer[facility]28[facility] History of Present illness Narrative* Zenaida Landrum DO - 01/05/2025 3:30 PM EDT Images from the original note were not included. Head[facility]: Headache follow-up 01/05/2025 Interval History: Last visit Date and brief summary: My visit 10/07 Continue diamox 250 bid per ophtho, atogepant, 3 days DHE, VPA cycle breaker EUGENE visit 10/12 Sergei in infusion 3 day infusion. Continue diamox 250 bid per ophtho 3 days DHE, VPA cycle breaker Headache 1 Number of headache free days/month: 0 Days missed from work or school in the last month: 21 days She describes no head pain/neck pain-free days since mid-November. Neck pain: tightness, pressure, and stiffness , rated at a constant 7/10, affecting both sides of the neck. The pain worsens with head movement, particularly looking down all day at work, and is alleviated by lying down, though she notes that even lying down provides only minimal relief. She experi ences limited range of motion, particularly when turning her head to the right and looking down. She also reports a mild sensitivity to light and sound but it does not feel like a migraine She notes that her neck pain and headaches are now constant, whereas they used to come and go. She describes these headaches as different from her usual IIH headaches, which she characterizes aspounding and severe. She notes that her current headaches are more of a constant ache and discomfort. She reports that her headaches worsen when she is coming off Diamox or has been lying down for too long. She also experiences visual disturbances upon waking, describing everything as fuzzy or shadowed, which improves as she gets going. Karolina has been taking Depakote 500 mg at bedtime, which initially provided relief of the neck pain for almost three weeks but is no longer effective. She is also taking nortriptyline 10 mg at bedtimefrom hospital admission, which she reports is not helping and wants off. She is currently on Diamoxfor IIH, which she feels is not effective and is causing side effects and is on high doses that worry her. She is also taking hydroxyzine for sleep. She reports that her papilledema was healed by God in 2021 and believes it will not return and should not be a measure of her IIH. She expresses frustration with her current treatment and the lack of improvement in her symptoms. She is concerned about the long-term effects of her medications and is seeking alternative treatments. She is also concerned about the possibility of a Chiari malformation and has been doing her own research on the condition. She is considering seeing a neurosurgeon for further evaluation. Karolina reports that her quality of life is significantly affected by her symptoms, stating, My quality of life right now, it just sucks so freaking bad. She is unable to perform her job duties effectively and is concerned about her ability to continue working. Interval history dictated via Veebeam AI: fully reviewed and edited by author DATA: Diagnostic tests reviewed for today's visit: *See timeline below My chart 10/24 -denied atogepant, doing well on low dose VPA, insurance requires injectable before atogepant. My chart 12/26 - Still have pressure/discomfort in the neck/back of head and now having an actual IIH headache thelast two days. Physical Exam: Vital Signs: Pulse 74 Wt 74.7 kg (164 lb 10.9 oz) SpO2 100% BMI 30.12 kg/m GENERAL: frustrated appearing, at times crying, at times yelling and screaming and very upset, alert HEAD: Normocephalic/atraumatic. RESP: normal respiratory effort MSK: No gross joint deformities. NEUROLOGICAL: Mental Status: Alert, oriented to person, place and time, Speech fluent and appropriate. Cranial Nerves: pupils equal, face symmetric, no dysarthria, hearing grossly intact. No papilledema pROM reduced radha on right side bending No ON tenderness on tapping, slight pain on palpation worse on the right Motor: moves all extremities equally, no drift Gait: normal-based. IMPRESSION: Karolina Nicole is a 39 year old presenting for follow up, with a history of IIH with papilledema dx 2021 but no active edema in over 1 yaer, as well as chronic migraine and cervicalgia, white dot syndrome, fibromyalgia, nephrolithiasis, established with headache clinic 08/2023. 2021-Diagnosed with IIH in 2021 with R eye vision loss sx, (first OP 34), tried diamox, topiramate,zonisimide. 08/2023 -Due to recurrent KHAN and LP with elevated OP (31) she was placed back on diamox and seen by Dr. Goldberg. 02/2024-she regained the weight she had loss and had return of symptoms 06/2024 - Dr. Sherwood with stable exam and no active edema (on diamox). 09/2024- Recurrent symptoms provoked by estrodial that prompted visual exam again that was again no active edema with impaired peripheral vision, but subjective blurry vision and patient proceeded with another LP with OP of only 27 and post dural puncture headaches that resolved as did blurry vision. At this time I felt that migraine most likely explained her headache/neck pain with no active IIH, no active optic disc edema and stable RNFL, and she had no improvement or change in KHAN after LP andtook a lot of conviencing to try migraine treatments, and was started on anti-CGRP after 3 days of DHE infusion + VPA cycle breaker which helped. 10/2024 with me: 3 day infusion, offered atogepant vs ajovy - she wanted cont. VPA 500 mg QHS 12/2024 Dr. Sherwood: neck pain worse upright, other concerns like CTS, fatigue, dysphagia. Ordered MG panel. More floaters. Still has pulsatile tinnitus, no TVO. On diamox 500 mg BID, metabolic acidosison labs. Sent to Neuro[facility] for MRV evaluation bc MRV shows narrowing in both transverse sinuses 12/2024 admission: admitted for heart palpitations, seen by neurology rec botox/ONB, started on Pamelor and parafon forte, toradol, >ON Gen neuro consult: pamelor 10 mg, VPA, vitamins, PRN tizanidine or methocarb, consider ONB or botoxand would benefit from gepant/CGRP termite control technician 12/2024 CV [facility] visit -discussed venous sinus stenting. She would like to proceed with angiography and venous manometry to evaluate for stent candidacy. 12/22/2024 - agitated druing procedure - rescheduled 12/30/2024 - procedure diagnostic angiogram 01/03 Dr. William PACK -post angiogram: moderate bilateral transverse sinus stenosis 8 mmHg on the right and 7 mmHg on the left. KHAN persist despite medical therapy with Diamox 1000 mg daily, nortriptyline, and Depakote. No papilledema. Discussed that venous sinus stenting is not recommended in the absence of papilledema and is unlikely to provide long-term headache relief. Recommended proceeding with neurosurgical evaluation for CSF shunt placement This was a difficult visit, over 60 minutes long discussion about her condition and recommendations. She expressed extreme frustration with her condition, understanding her various diagnosis, lack ofimprovement, and essentially a lack of diagnosis that she agrees with. We discussed that from an IIH stand point her she does not have active disc edema and she is seeking an opinion with neurosurgery OSH with Dr. Serrano to discuss potential shunt placement, given ongoing intolerance to higher-doseacetazolamide. I reiterated to her that this will not likely help her headache pain. In regards to her diamox, I will defer to discussion with Dr. Sherwood, as she no longer has active IIH with stable eye exams and no active disc edema for which is typically when it is weaned, or can be used for tinnitus sx, and this medication is not beneficial to headache pain from migraine. She remains in disagreement about a diagnosis of migraine, and is concerned about chiari contributions. We reviewed that her headaches do not fit diagnosis for chiari headaches, nor occipital neuralgia without any sharp electrical brief pains, and when I measured the imaging the cerebellar tonsillar descent was < 4mm but demanded reviewed with a radiologist to measure it. Her symptoms are likely due to a combination of chronic migraines and musculoskeletal neck pain (occurs in 68-77% of pts with migraine) for which she would benefit from botox and in the mean time canoffer increased VPA. She was very unsatisfied with the education that medications will take 6-12 weeks to become effective, and mentioned she will stop the additional VPA if there is no benefit in 3 days and I advised against this. Regardless on her ultimate diagnosis causing her symptoms, I reiterated that my goal is to help herfeel better, but she again continues to refuses to accept that she has chronic migraine contributions, I continue to offer my sympathies and our best intention to help her treat her symptoms as able and offered her a 2nd opinion with my many headache colleagues which she denied. --Diagnosis: Chronic daily headache Chronic migraine Cervicalgia musculoskeletal neck pain H/o IIH with papilledema, stable, no active edema --Treatment Plan: Discontinue nortriptyline (Pamelor) as it has not been effective submit a prior authorization for Botox injections VPA 500 mg BID - educated this medication may take several weeks to show full benefit Diamox per Dr Sherwood, A shunt may be an option in the future if you wish to discontinue Diamox due to side effects. This would require further discussion with your neurosurgeon. Therapy/referrals/lifestyle recommendations: -Encouraged a exercise/daily movement routine and stress management -Encouraged PT for neck Has f/u with Dr. Sherwood 01/10 Has an appt with OSH nrsy Dr. Randall Imaging/lab testing: Will review imaging with radiology to measure tonsillar descent when able Future Considerations: nurtec preventative, PT, chronic pain recovery/Reboot All questions answered - follow up for botox We will get a precert for Onabotulinum Toxin A using the PREEMPT protocol. This patient meets FDA criteria for Chronic Migraine without aura, with mention of intractable migraine, so stated, without mention of status migrainosus. The migraine lasts for greater than 4 hours and has been chronic for more than three months. Onabotulinum Toxin A is FDA approved for chronic migraine. Her headaches are associated with photophobia, phonophobia, lightheaded, blurred vision, neck pain,worse with movement, relieved in supine position for three or more months. Patient will not use in conjunction with CGRP preventive medications. Medication overuse, alternatediagnosis, confounding psychiatric or social stresses have been ruled out as the cause of headaches. Severity: moderate to severe Quality: throbbing Migraine days a month: 30 Headache days a month: 30 Total Headache days a month: 30 Headache free days a month: 0 The following preventative medications have been tried for at least three months without benefit ordiscontinued due to side effects: Anti-Convulsant Topiramate (Topamax, Trokendi XL, Qudexy) topamax should be avoided due to hx of kidney stones Zonisamide (Zonegram) did not feel well on this when attempted to switch, worsened headaches topamax should be avoided due to hx of kidney stones Anti-Depressant and Antipsychotic Duloxetine (Cymbalta) Nortriptyline (Pamelor, Aventyl) Sertraline (Zoloft) Venlafaxine (Effexor) suicidal ideation Supplements Magnesium The following abortive medications have been tried but require high frequency use which can lead toMedication Overuse Headache: Analgesic Ketorolac (Toradol) cycle breaker 09/2024 helpful Anti-Migraine Dihydroergotamine (DHE-45, Migranal) The patient has been assessed for disorders which could contribute to breathing or swallowing difficulty, and there is no contraindication with PREEMPT Botox. There is no documented allergic reaction/hypersensitivity to any botulinum toxin and there is no active infection at proposed injection site Zenaida Landrum DO, [facility] Headache Medicine Associate Staff Adult Neurologist/ Board Certified CNR, Headache & Facial Pain Section [facility] Level of service: Est level 5 + 120 units 97186 (>55 min, [id number] for each 15 min > 40). Timespent `10 min on the day of service, which included preparing to see the patient, [id number] patient care, completing clinical documentation, obtaining and/or reviewing separately obtained history,performing a medically appropriate examination, counseling and educating the patient/family/caregiver, ordering medications, tests, or procedures, communicating with other HCPs (not separately reported), independently interpreting results (not separately reported), communicating results to the patient/family/caregiver, and care coordination (not separately reported). documented in this encounterMer[facility]08-28-2025 NoteOhio[facility]08-26-2025 Instructions* Patient Instructions* Bebe Thomas MD - 01/03/2025 7:55 PM EDT We discussed your ongoing symptoms and treatment options: - Your imaging shows moderate narrowing (stenosis) in the transverse sinuses on both sides, with similar pressure borderline pressure gradient (8 mmHg). This narrowing is likely contributing to your symptoms. Stenting is not recommended as you do not have papilledema and stenting is unlikely to provide long-term relief for your headaches. - Your primary symptoms include persistent headaches, pressure in the back of your head, and associated fatigue. These symptoms have not improved despite your current medications, including Diamox (1,000 mg daily), nortriptyline, and Depakote. You also reported side effects from Diamox, including kidney stones. - We discussed the possibility of pursuing a shunt procedure to reduce intracranial pressure. I support your decision to meet with the neurosurgeon on March 18 to discuss this option further. - I will communicate with your neurosurgeon, Dr. Bender, and ensure he is updated on your imaging, pressure measurements, and our discussion today. We discussed additional symptom management: - Continue with your scheduled appointment for Botox injections on . If Botox provides relief, it may indicate that occipital neuralgia is contributing to your symptoms. This would help guidefurther treatment. - Occipital neuralgia could potentially explain some of your symptoms, including pressure in your ears and neck, though it does not perfectly match your presentation. The Botox injections are a low-risk option to explore this possibility. We discussed your post-procedure concerns: - The small bump near your incision is normal and likely due to the closure device used during yourprocedure. It is expected to decrease in size over the next few weeks. Monitor the area for any signs of redness, swelling, or pulsation, and let us know if you notice any changes. - You experienced facial flushing after the procedure, which resolved with Benadryl. No further action is needed unless this recurs. Next steps: - Attend your neurosurgery consultation on March 18 to discuss the shunt procedure. - Proceed with your Botox appointment on to evaluate its effect on your symptoms. - Continue your current medications as prescribed for now. If you experience worsening symptoms or side effects, please contact our office. - Reach out if you have additional questions or concerns before your next appointments. I will send my notes to Dr. Benedr and Dr. Sherwood to ensure your care team is aligned. documented in this encounterMercy Health [facility]08-26-2025 NoteOhiohealth [facility]08-26-2025 History of Present illness Narrative* Bebe Thomas MD - 01/03/2025 7:51 PM EDT Images from the original note were not included. Cerebrovascular Center: Cerebrovascular Neurosurgery and Endovascular Surgical Neuroradiology Est Virtual Visit Patient consents to this virtual visit using Spinal USAt Zoom Video Visit. The visit required patient-provider interaction for the medical decision making as documented below. I have communicated my name and active licensure. The patient's identity and physical location wereverified at the time of this visit. Either the patient or their legal outside energy sales representatives has been informed of the risks and benefits of -- and alternatives to -- treatment through a remote evaluation andconsents to proceed with the evaluation remotely. Karolina Nicole PSYCHIATRIC#: [id number] Date of Service: 01/03/2025 Primary Care Provider: Yoan Ivey MD Subjective Karolina Nicole is a 39-year-old female with a history of idiopathic intracranial hypertension (IIH) presenting for discussion of recent angiogram and venous manometry. Karolina reports persistent and severe headaches over the past two and a half weeks, described as pounding pain involving the entirehead. She also experiences a constant sensation of pressure in the posterior head, extending from ear to ear and down the neck, which she describes as a buildup of pressure. She notes a popping or crackling sound at the base of her head when turning her head to the right. Additionally, she reports a sensation of pressure in her ears, likened to the feeling of water in the ears, which persists from morning to night. She is currently taking nortriptyline at night, Depakote for headache prevention, and 1000 mg of Diamox daily. Despite this regimen, she continues to experience significant symptoms. She expresses frustration with the medications, stating that they are not effective and have led to the development of two kidney stones. She questions the long-term impact of these medications on her health. She expresses a strong desire for a more effective treatment, stating that she would prefer to undergo a shunt procedure rather than continue with medications that are not providing relief. She has spoken with other patients who have had shunts and reports that they have experienced significant improvements in their quality of life. She is scheduled to meet with a neurosurgeon on the to discuss this option. She also reports a small, non-pulsatile bump near her incision site, approximately the size of a dime to a quarter. She does not endorse any redness or other concerning symptoms associated with the bump. Additionally, she experienced a flushed face over the weekend, which resolved after taking Benad ryl. REVIEW OF SYSTEMS Constitutional: (+) fatigue Head: (+) pounding headache, (+) occipital pressure Ears/Nose/Mouth/Throat: (+) ear pressure, (+) autophony Musculoskeletal: (+) neck crepitus with motion, (-) occipital tenderness Skin: (+) small hard bump at incision site, (-) redness at incision site, (-) pulsatile bump ACTIVE PROBLEM LIST Migraine Without Aura, Not Intractable, Without Status Migrainosus Migraine Headaches Benign Intracranial Hypertension Nicotine use disorder, F17.2 Iih (Idiopathic Intracranial Hypertension) Anxiety Asthma (Hcc) Adhd (Attention Deficit Hyperactivity Disorder) Fibromyalgia Ptsd (Post-Traumatic Stress Disorder) Palpitations History of Cervical Cancer PAST MEDICAL HISTORY Diagnosis Date Fibromyalgia IIH (idiopathic intracranial hypertension) Osteoarthritis of multiple joints Palindromic rheumatism PAST SURGICAL HISTORY Procedure Laterality Date LAPAROSCOPIC CHOLECYSTECTOMY 07/29/2023 LAPAROSCOPY-ROBERTO 10/19/2012 LIGATE FALLOPIAN TUBE Bilateral 12/15/2011 REMOVAL OF OVARY/TUBE(S) Bilateral 10/19/2012 TOTAL ABDOM HYSTERECTOMY 10/19/2012 Allergies: Adhesive, Latex, Levaquin [Levofloxacin], Morphine, Nickel, Oxycodone, Oxycodone-Acetaminophen, Silk, Sulfadiazine, Sulfamethoxazole-Trimethoprim, and Adhesive Tape (Rosins) Medications: Current Outpatient Medications Medication Sig magnesium oxide (MAG-OX) 400 mg (241.3 mg magnesium) tablet Take 1 tablet by mouth once daily. SINGULAIR 10 mg tablet Take 10 mg by mouth daily at bedtime. dextroamphetamine-amphetamine (ADDERALL) 20 mg tablet Take 1 tablet by mouth two times a day. nortriptyline (PAMELOR) 10 mg capsule Take 1 capsule by mouth daily at bedtime. divalproex ER (DEPAKOTE ER) 500 mg 24 hr tablet Take 1 tablet by mouth daily at bedtime. atogepant (QULIPTA) 60 mg tablet Take 1 tablet by mouth once daily. acetaZOLAMIDE SR (DIAMOX SEQUELS) 500 mg capsule Take 1 capsule by mouth two times a day. hydrOXYzine pamoate (VISTARIL) 50 mg capsule Take 50 mg by mouth daily at bedtime. Cetirizine 10 mg cap mv,calcium,min/iron/folic/vitK (MULTI FOR HER ORAL) No current facility-administered medications for this visit. SOCIAL HISTORY[1] Objective PHYSICAL EXAMINATION There were no vitals taken for this visit. (Video visit, exam by zoom) General: Well-developed, well-nourished, in no acute distress. HEENT: Normocephalic, atraumatic. Sclerae anicteric. Neurological: Awake, alert, oriented to person, place, and time. Speech fluent, no dysarthria. Goodattention and insight into illness. Cranial Nerves: Extraocular movements intact without nystagmus. Facial movements normal and symmetric. RESULTS Reviewed images from recent angiogram with manometry from 12/30/2024 which shows moderate bilateral transverse sinus stenosis. Assessment & Plan # Idiopathic intracranial hypertension (G93.2) Patient has moderate bilateral transverse sinus stenosis with a pressure gradient of 8 mmHg on the right and 7 mmHg on the left. Headaches and pressure symptoms persist despite maximal medical therapy with Diamox 1000 mg daily, nortriptyline, and Depakote. No papilledema is present. - Discussed that venous sinus stenting is not recommended in the absence of papilledema and is unlikely to provide long-term headache relief based on current evidence and consensus guidelines. - Recommended proceeding with neurosurgical evaluation for CSF shunt placement to address elevated intracranial pressure. - Advised to continue with planned Botox injections for occipital headache management; discussed that if effective, this may indicate occipital neuralgia as a contributing factor. - Will CC Dr. Sherwood and Dr. Bender on this note to ensure care team coordination. I spent a total of 30 minutes on the date of the service which included preparing to see the patient, [id number] patient care, completing clinical documentation, obtaining and/or reviewing separately obtained history, performing a medically appropriate examination, counseling and educating the pat ient/family/caregiver, ordering medications, tests, or procedures, communicating with other HCPs (not separately reported), and communicating results to the patient/family/caregiver. Recording using Gritness software for draft documentation of the visit was discussed with the patient/authorized outside energy sales representatives; all questions welcomed and answered. Patient/authorized outside energy sales representatives agreed to proceed SIGNATURE Bebe Thomas MD 01/03/2025 CC No referring provider defined for this encounter. Yoan Greenwood Maria Teresa [address] [id number] [1] Social History Tobacco Use Smoking status: Every Day Current packs/day: 0.50 Types: Cigarettes Smokeless tobacco: Never Tobacco comments: 1 pack every 2 days Vaping Use Vaping status: Never Used Substance Use Topics Alcohol use: Not Currently Drug use: Not Currently [facility] Tele[facility] encounter Note * Telephone Encounter - Flores Swain MD - 12/31/2024 5:55 PM EDT Patient called neurosurgery meet me line with complaint of facial flushing and neck redness. No difficulty breathing or wheezing, no itching. Patient underwent anesthesia yesterday for a diagnostic angiogram for IIH. She has had anesthesia and contrast before without issue. Initially advised patient that monitoring and consideration of an antihistamine are reasonable given no red flag symptoms. However, at end of call, patient mentioned that she had a short, self limited episode of chest pain. Given complaint of chest pain episode, I advised that in- person medical attention at an ED or urgentcare was advisable. Patient stated she understood all recommendations at conclusion of the call. Flores Swain MD PGY4 Neurosurgery [facility] Work Phone: [phone]) 305-216908-23-2025 Miscellaneous Notes* Telephone Encounter - Flores Swain MD - 12/31/2024 5:55 PM EDT Patient called neurosurgery meet me line with complaint of facial flushing and neck redness. No difficulty breathing or wheezing, no itching. Patient underwent anesthesia yesterday for a diagnostic angiogram for IIH. She has had anesthesia and contrast before without issue. Initially advised patient that monitoring and consideration of an antihistamine are reasonable given no red flag symptoms. However, at end of call, patient mentioned that she had a short, self limited episode of chest pain. Given complaint of chest pain episode, I advised that in- person medical attention at an ED or urgentcare was advisable. Patient stated she understood all recommendations at conclusion of the call. Flores Swain MD PGY4 Neurosurgery documented in this encounterMer[facility]-2025 NoteHNO ID: [id number] Author: ALEXANDRIA DESAI RN Service: Nursing Author Type: Registered Nurse Type: Nursing Progress Note Filed: 12/30/2024 15:32 Note Text: Family updated via text. Alexandria Desai [facility]-2025 NoteHNO ID: [id number] Author: ALEXANDRIA DESAI RN Service: Nursing Author Type: Registered Nurse Type: Nursing Progress Note Filed: 12/30/2024 15:02 Note Text: Family updated via text. Alexandria Desai [facility]-2025 [facility] 12-29-2024 Telephone encounter Note* Telephone Encounter - Mary King - 12/29/2024 4:08 PM EDT Patient last seen on 10/07/24 Follow up scheduled for 01/05/25 [facility]08-21-2025 Miscellaneous Notes* Telephone Encounter - Mary King - 12/29/2024 4:08 PM EDT Patient last seen on 10/07/24 Follow up scheduled for 01/05/25 documented in this encounterMer[facility] Instructions* Patient Instructions* Ellie North APRN.OPEN CLAIMS REPRESENTATIVE - 12/27/2024 1:25 PM EDT Images from the original note were not included. [facility] PATIENT PREOPERATIVE INSTRUCTIONS Your physician scheduled you for your procedure at this surgery center: [facility] Scheduling Office: [phone] --[address] [place] [address]. Please read below carefully for your personalized instructions. Arrival Time for Surgery: - The Surgery Center or hospital where you are having surgery will call the afternoon before surgery (or Thursday for Thursday surgery) with a scheduled arrival time. - If you have not heard by 4 pm, please contact the surgery center above. Please be aware that emergency situations arise, which may delay or change your surgical time. If this happens, we will notify you as soon as possible and regret any inconvenience. Dietary Restrictions: - No solid food after midnight. - You may have 12 ounces of clear liquids (water, clear juices such as apple juice or gatorade, carbonated beverages, clear tea, black coffee, jello) until 2 hours before scheduled arrival at facility. No milk or cream No pulp juices Medications: Unless instructed differently below, stay on all of your medications until your surgery. Approved medications to take the morning of surgery with a sip of water: Pre Surgery Med Instructions Medication instructions acetaZOLAMIDE SR (DIAMOX SEQUELS) 500 mg capsule Continue as prescribed. Cetirizine 10 mg cap Continue as prescribed. dextroamphetamine-amphetamine (ADDERALL) 20 mg tablet DO NOT TAKE THE MORNING OF SURGERY. divalproex ER (DEPAKOTE ER) 500 mg 24 hr tablet Continue as prescribed. hydrOXYzine pamoate (VISTARIL) 50 mg capsule Continue as prescribed. mv,calcium,min/iron/folic/vitK (MULTI FOR HER ORAL) Continue as prescribed. nortriptyline (PAMELOR) 10 mg capsule Continue as prescribed. SINGULAIR 10 mg tablet Continue as prescribed. If you are currently using a lomo-ohd-xvhd injectable or oral medication for diabetes or weight loss such as Dulaglutide (Trulicity), Exenatide (Byetta, Bydureon), Liraglutide (Victoza, Saxenda), Semaglutide (Ozempic, Wegovy, Rybelsus), or Tirzepatide (Mounjaro), the medicine should be stopped at least 7 days before surgery. These medicines can cause food to remain in your stomach for a very longtime and increase the risks from surgery and anesthesia. Not stopping the medication for a long enough time may result in your surgery being rescheduled. If you start any new medications after today's visit, please contact the surgeon's office. Blood Thinning Medications: - Stop NSAIDS (Ibuprofen, Advil, Aleve, Motrin, Celebrex, Mobic, etc.) 7 days before surgery, as directed by your surgeon. - Stop Aspirin 7 days before surgery, as directed by your surgeon. - Stop ALL herbal and dietary supplements 7 days before surgery. - You may take Tylenol (Acetaminophen) or any of your pain medications that do not contain aspirin or NSAIDS as needed. Important Reminders: - If you are prescribed inhalers for breathing, continue using them. - Candy, mints, and tobacco products are NOT permitted the morning of surgery. - Hearing aids, dentures and glasses may be worn the morning of surgery. - NO jewelry, body piercings, makeup, hairpins or contacts are to be worn the day of surgery. If you develop symptoms such as a fever, cold, or flu, or have other changes to your health within TWO DAYS of scheduled surgery or the morning of surgery, please contact the surgery center above. Personal Belongings: -Please have photo ID and insurance cards. -If you do not have a copy of advance directives on file with us, please bring a copy with you on the day of surgery. - Leave ALL valuables and money at home or with family members. For Outpatient Procedures: - YOU MUST HAVE A RESPONSIBLE REGIONAL MAINTENANCE MANAGER TAKE YOU HOME. A GRAPPLE SKIDDER OPERATOR OR STRUCTURAL STEEL ERECTION SUPERVISOR CANNOT BE MADE A RESPONSIBLE REGIONAL MAINTENANCE MANAGER. - We recommend that a responsible person stays with you overnight to take care of you. - You cannot stay in a hotel alone after outpatient surgery. You will not be permitted to have yoursurgery, if you do not have someone to take care of you. If you already have an Advance Directive, please fax a copy to [phone] or email to for it to be added to your chart. If you do not have an Advance Directive, you can find the appropriate form and more information at [email or web address]. We recommend that youcomplete the Advance Directive form found on the website and bring it with you the day of your surgery. It can be witnessed and scanned into your chart that day. documented in this encounterMer[facility]08-19-20[facility] History and physical note * Ellie North APRN.CNP - 12/27/2024 1:20 PM EDT Images from the original note were not included. [facility] HISTORY AND PHYSICAL EXAMINATION SERVICE DATE: 12/27/2024 SERVICE TIME: 1:27 PM Patient has been identified by name and date of : Yes Reason for contact: PACC visit Accompanied by: Self This is a virtual visit using MEDOVENTom Video Visit. It required patient- provider interaction for the medical decision making as documented below. I have communicated my name and active licensure. The patient's identity and physical location wereverified at the time of this visit. Either the patient or their legal outside energy sales representatives has been informed of the risks and benefits of and alternatives to treatment through a remote evaluation and consents to proceed with the evaluation remotely. PRIMARY CARE PHYSICIAN: Yoan Ivey MD REASON FOR VISIT: Karolina Nicole is a 39 year old female who is scheduled for Pending - NON- SELECTIVE CATH PLACEMENT THORACIC AORTA W/ ANGIOGRAPHY OF THE EXTRACRANIAL CAROTID VERTEBRAL AND/OR INTRACRANIAL VESSELS BILATERAL W/ ANGIOGRAPHY OF THE CERVICOCEREBRAL ARCH at the request of Dr. Amira Scott for consultation. My final recommendation will be communicated back to the requesting physician by way of shared medical record or letter. Assessment IIH (idiopathic intracranial hypertension) Assessment: See HPI Nicotine use disorder, F17.2 Assessment: current smoker, 0.5 pack year daily Smoked on and off for 20 years PTSD (post-traumatic stress disorder) Assessment: Reports trauma in past States has agitated with twilight anesthesia and becomes agitated post op Anxiety Assessment: Managed on medication by PCP ADHD (attention deficit hyperactivity disorder) Assessment: On Adderall- advised to hold DOS Asthma (HCC) Assessment: reports mild asthma States uses inhaler with increased activity or weather changes Denies recent URI or wheezing Fibromyalgia Assessment: + chronic pain Has seen pain management in past Palpitations Assessment: reports intermittent palpations Denies chest pain Had cardiac work up 2022- negative stress test History of cervical cancer Assessment: s/p hysterectomy 2012 ANESTHESIA FINDINGS: Intubation History: No history of difficult intubation Significant Anesthesia Considerations: reports agitated following previous procedures Airway History: No history of difficult airway Putnam Activity Status Index: METS: Walk indoors, such as around the house (1.75 METs) Do light work around the house, such as dusting or washing dishes (2.70 METs) Take care of self; that is eating, dressing, bathing, using the toilet (2.75 METs) Walk a block or two on level ground (2.75 METs) Do moderate work around the house, such as vacuuming, sweeping floors, or carrying in groceries (3.50 METs) Climb a flight of stairs or walk up a hill (5.50 METs) Do heavy work around the house, such as scrubbing floors, lifting or moving heavy furniture (8.00 METs) DASI Score: 26.95 Patient denies any chest pain or undue shortness of breath with the above physical activity. Clinical Frailty Scale: 4. Apparently vulnerable STOP-Bang Score: Denies snoring loudly Denies feeling tired, fatigued, or sleepy during the daytime Has not been observed to stop breathing or choking/gasping during sleep Denies having high blood pressure BMI less than or equal to 35 kg/m^2 Patient 50 years old or younger Does not have a large neck Non-male patient STOP-Bang Score: 0 [id number] Score: Age: <65 Sex: female CHF history: No Hypertension history: No Stroke/TIA/thromboembolism history: No Vascular disease history: No Diabetes history: No [id number] Score: 1 I - PHYSICAL EVALUATION AIRWAY Patient intubated: No. Tracheostomy tube not present Mallampati: I. TM distance: >3 FB. Neck ROM: full ROM without neurological symptoms. Mouth opening: adequate. Short neck: no. Thick neck: no DENTAL Dental findings: teeth intact. II - ANESTHESIA PLAN Anesthetic plan additional comments: *PACC/TCI - anesthesia choice. Beta Serge Monitoring Plan Post Procedure Analgesic Plan Prepared for surgery: This patient is optimally prepared for surgery. CONSULTS: Patient does not require consults for optimization at this time. The Following Tests/Procedures Have Been Initiated: Orders Placed This Encounter magnesium oxide (MAG-OX) 400 mg (241.3 mg magnesium) tablet Sig: Take 1 tablet by mouth once daily. Planned Anesthetic: Per anesthesia choice Subjective CHIEF COMPLAINT: Pre-op visit HPI: 39 year old female with idiopathic intracranial hypertension. She experiences chronic headaches, frequent falls, forgetfulness, and cognitive fog. Was scheduled for Diagnostic cervicocerebral angiography, venous angiography, venous manometry with on 12/22 but unable to tolerate the procedure without anesthesia. REVIEW OF SYSTEMS: PAIN ASSESSMENT: General: No weight loss, malaise or fevers. Neuro: See HPI Respiratory: Negative for URI < 2 weeks, Wheezing + smoker + asthma-- PRN inhaler- uses with exertion or weather changes Cardiovascular: Negative for Recent MD, CAD, Chest Pain + palpitations GI: No history of GI symptoms or problems. No history of esophageal varices, recent ascites, or ETOH greater than 2 drinks per day. : No difficulty urinating, nocturia > 1 time per night or hematuria + kidney stones INDEPENDENT BEAUTY CONSULTANT: Negative for abnormal vaginal bleeding, abnormal vaginal discharge. : Denies, No LMP recorded. Patient has had a hysterectomy. Endocrine: No history of diabetes. Has not taken steroids within the past 30 days. No history of endocrinological symptoms or problems. Hematology: No history of bleeding or clotting disorder. Pt is not taking anti- coagulation or platelet medications. No history of hematological symptoms or problems. Oncology: Hx of cervical CA s/p hysterectomy 2012 Implanted Devices: No Psych: Anxiety, PTSD Marijuana use: No Musculoskeletal: Back pain and Joint pain Skin: Negative for lesions, rash and itching. The patient has the following: ACTIVE PROBLEM LIST Migraine Without Aura, Not Intractable, Without Status Migrainosus Migraine Headaches Benign Intracranial Hypertension Nicotine use disorder, F17.2 Iih (Idiopathic Intracranial Hypertension) Anxiety Asthma (Hcc) Adhd (Attention Deficit Hyperactivity Disorder) Fibromyalgia Ptsd (Post-Traumatic Stress Disorder) Palpitations History of Cervical Cancer PAST MEDICAL HISTORY Diagnosis Date Fibromyalgia IIH [...] Difficulty with anesthesia No Family History SOCIAL HISTORY[1] Prior to Admission medications as of 12/27/24 1329 Medication Sig Last Dose Taking SINGULAIR 10 mg tablet Take 10 mg by mouth daily at bedtime. Yes dextroamphetamine-amphetamine (ADDERALL) 20 mg tablet Take 1 tablet by mouth two times a day. Yes nortriptyline (PAMELOR) 10 mg capsule Take 1 capsule by mouth daily at bedtime. Yes divalproex ER (DEPAKOTE ER) 500 mg 24 hr tablet Take 1 tablet by mouth daily at bedtime. Yes acetaZOLAMIDE SR (DIAMOX SEQUELS) 500 mg capsule Take 1 capsule by mouth two times a day. Yes hydrOXYzine pamoate (VISTARIL) 50 mg capsule Take 50 mg by mouth daily at bedtime. Yes Cetirizine 10 mg cap Yes mv,calcium,min/iron/folic/vitK (MULTI FOR HER ORAL) Yes magnesium oxide (MAG-OX) 400 mg (241.3 mg magnesium) tablet Take 1 tablet by mouth once daily. atogepant (QULIPTA) 60 mg tablet Take 1 tablet by mouth once daily. No medication comments found. ALLERGIES Allergen Reactions Adhesive Rash Latex Rash Levaquin [Levofloxa* Swelling Swelling tongue Morphine Angioedema Says tongue swells up, vomits, chest pain Nickel Rash, Unknown Oxycodone Rash Oxycodone-Acetamino* Rash Silk Other: See Comments Silk tape Sulfadiazine Rash Sulfamethoxazole-Tr* Swelling Adhesive Tape (Cammie* Hives, Itching Objective PHYSICAL EXAM: VITALS: Resp 18 Ht 5' 2.5 (1.59m) Wt 157 lb (71.2kg) BMI 28.24 kg/(m^2). VIDEO EXAM: (if completed, performed via video enabled technology) GENERAL: alert and appropriate, in no distress SKIN: no rash noted OROPHARYNX: moist mucus membranes RESPIRATORY: breathing non-labored CHEST: equal chest rise with normal respiratory effort HEART: No JVD or cyanosis noted. Patient reports mild edema in lower ext ABDOMEN: soft and non-tender to self-palpation NEUROLOGIC: no obvious deficit Diagnostic tests reviewed for today's visit: Lab Value Units Date High Low HB 12.9 g/dL 12/15/2024 15.5 11.5 HCT 37.2 % 12/15/2024 46.0 36.0 WBC 7.77 k/uL 12/15/2024 11.00 3.70 PLT 313 k/uL 12/15/2024 400 150 NA 139 mmol/L 12/16/2024 144 136 K 3.8 mmol/L 12/16/2024 5.1 3.7 GLUC 137 mg/dL 12/16/2024 99 74 BUN 18 mg/dL 12/16/2024 21 7 CREAT 1.01 mg/dL 12/16/2024 0.96 0.58 ALT 18 U/L 12/15/2024 38 7 AST 21 U/L 12/15/2024 35 13 TBILI 0.2 mg/dL 12/15/2024 1.3 0.2 Hemoglobin A1C (%) Date Value 08/05/2024 4.4 Stress test 07/18/2022 EXTERNAL CARDIOLOGY (08/13/2022 3:58 PM) ECG COMPLETE (07/18/2022 11:20 AM) Procedure Date : Jul 18 2022 11:20:10 Edit Date : Jul 24 2022 09:34:51 Diagnosis: NORMAL SINUS RHYTHM CANNOT EXCLUDE INFERIOR MYOCARDIAL INFARCTION , AGE UNDETERMINED ANTERIOR T WAVE ABNORMALITY ABNORMAL ECG Instructions Given to Patient: Instructions located in the after visit summary. Patient given verbal and written preop instructions and voices comprehension and compliance. SIGNATURE: Ellie North APRN.CNP PATIENT NAME: Karolina Nicole DATE: 12/27/2024 [1] Social History Tobacco Use Smoking status: Every Day Current packs/day: 0.50 Types: Cigarettes Smokeless tobacco: Never Tobacco comments: 1 pack every 2 days Vaping Use Vaping status: Never Used Substance Use Topics Alcohol use: Not Currently Drug use: Not Currently [facility] History and physical note* Ellie North APRN.CNP - 12/27/2024 1:20 PM EDT Images from the original note were not included. [facility] HISTORY AND PHYSICAL EXAMINATION SERVICE DATE: 12/27/2024 SERVICE TIME: 1:27 PM Patient has been identified by name and date of : Yes Reason for contact: PACC visit Accompanied by: Self This is a virtual visit using [employer] Zoom Video Visit. It required patient- provider interaction for the medical decision making as documented below. I have communicated my name and active licensure. The patient's identity and physical location wereverified at the time of this visit. Either the patient or their legal outside energy sales representatives has been informed of the risks and benefits of and alternatives to treatment through a remote evaluation and consents to proceed with the evaluation remotely. PRIMARY CARE PHYSICIAN: Yoan Ivey MD REASON FOR VISIT: Karolina Nicole is a 39 year old female who is scheduled for Pending - NON- SELECTIVE CATH PLACEMENT THORACIC AORTA W/ ANGIOGRAPHY OF THE EXTRACRANIAL CAROTID VERTEBRAL AND/OR INTRACRANIAL VESSELS BILATERAL W/ ANGIOGRAPHY OF THE CERVICOCEREBRAL ARCH at the request of Dr. Amira Scott for consultation. My final recommendation will be communicated back to the requesting physician by way of shared medical record or letter. Assessment IIH (idiopathic intracranial hypertension) Assessment: See HPI Nicotine use disorder, F17.2 Assessment: current smoker, 0.5 pack year daily Smoked on and off for 20 years PTSD (post-traumatic stress disorder) Assessment: Reports trauma in past States has agitated with twilight anesthesia and becomes agitated post op Anxiety Assessment: Managed on medication by PCP ADHD (attention deficit hyperactivity disorder) Assessment: On Adderall- advised to hold DOS Asthma (HCC) Assessment: reports mild asthma States uses inhaler with increased activity or weather changes Denies recent URI or wheezing Fibromyalgia Assessment: + chronic pain Has seen pain management in past Palpitations Assessment: reports intermittent palpations Denies chest pain Had cardiac work up 2022- negative stress test History of cervical cancer Assessment: s/p hysterectomy 2012 ANESTHESIA FINDINGS: Intubation History: No history of difficult intubation Significant Anesthesia Considerations: reports agitated following previous procedures Airway History: No history of difficult airway Putnam Activity Status Index: METS: Walk indoors, such as around the house (1.75 METs) Do light work around the house, such as dusting or washing dishes (2.70 METs) Take care of self; that is eating, dressing, bathing, using the toilet (2.75 METs) Walk a block or two on level ground (2.75 METs) Do moderate work around the house, such as vacuuming, sweeping floors, or carrying in groceries (3.50 METs) Climb a flight of stairs or walk up a hill (5.50 METs) Do heavy work around the house, such as scrubbing floors, lifting or moving heavy furniture (8.00 METs) DASI Score: 26.95 Patient denies any chest pain or undue shortness of breath with the above physical activity. Clinical Frailty Scale: 4. Apparently vulnerable STOP-Bang Score: Denies snoring loudly Denies feeling tired, fatigued, or sleepy during the daytime Has not been observed to stop breathing or choking/gasping during sleep Denies having high blood pressure BMI less than or equal to 35 kg/m^2 Patient 50 years old or younger Does not have a large neck Non-male patient STOP-Bang Score: 0 [id number] Score: Age: <65 Sex: female CHF history: No Hypertension history: No Stroke/TIA/thromboembolism history: No Vascular disease history: No Diabetes history: No [id number] Score: 1 I - PHYSICAL EVALUATION AIRWAY Patient intubated: No. Tracheostomy tube not present Mallampati: I. TM distance: >3 FB. Neck ROM: full ROM without neurological symptoms. Mouth opening: adequate. Short neck: no. Thick neck: no DENTAL Dental findings: teeth intact. II - ANESTHESIA PLAN Anesthetic plan additional comments: *PACC/TCI - anesthesia choice. Beta Serge Monitoring Plan Post Procedure Analgesic Plan Prepared for surgery: This patient is optimally prepared for surgery. CONSULTS: Patient does not require consults for optimization at this time. The Following Tests/Procedures Have Been Initiated: Orders Placed This Encounter magnesium oxide (MAG-OX) 400 mg (241.3 mg magnesium) tablet Sig: Take 1 tablet by mouth once daily. Planned Anesthetic: Per anesthesia choice Subjective CHIEF COMPLAINT: Pre-op visit HPI: 39 year old female with idiopathic intracranial hypertension. She experiences chronic headaches, frequent falls, forgetfulness, and cognitive fog. Was scheduled for Diagnostic cervicocerebral angiography, venous angiography, venous manometry with on 12/22 but unable to tolerate the procedure without anesthesia. REVIEW OF SYSTEMS: PAIN ASSESSMENT: General: No weight loss, malaise or fevers. Neuro: See HPI Respiratory: Negative for URI < 2 weeks, Wheezing + smoker + asthma-- PRN inhaler- uses with exertion or weather changes Cardiovascular: Negative for Recent MD, CAD, Chest Pain + palpitations GI: No history of GI symptoms or problems. No history of esophageal varices, recent ascites, or ETOH greater than 2 drinks per day. : No difficulty urinating, nocturia > 1 time per night or hematuria + kidney stones INDEPENDENT BEAUTY CONSULTANT: Negative for abnormal vaginal bleeding, abnormal vaginal discharge. : Denies, No LMP recorded. Patient has had a hysterectomy. Endocrine: No history of diabetes. Has not taken steroids within the past 30 days. No history of endocrinological symptoms or problems. Hematology: No history of bleeding or clotting disorder. Pt is not taking anti- coagulation or platelet medications. No history of hematological symptoms or problems. Oncology: Hx of cervical CA s/p hysterectomy 2012 Implanted Devices: No Psych: Anxiety, PTSD Marijuana use: No Musculoskeletal: Back pain and Joint pain Skin: Negative for lesions, rash and itching. The patient has the following: ACTIVE PROBLEM LIST Migraine Without Aura, Not Intractable, Without Status Migrainosus Migraine Headaches Benign Intracranial Hypertension Nicotine use disorder, F17.2 Iih (Idiopathic Intracranial Hypertension) Anxiety Asthma (Hcc) Adhd (Attention Deficit Hyperactivity Disorder) Fibromyalgia Ptsd (Post-Traumatic Stress Disorder) Palpitations History of Cervical Cancer PAST MEDICAL HISTORY Diagnosis Date Fibromyalgia IIH [...] Difficulty with anesthesia No Family History SOCIAL HISTORY[1] Prior to Admission medications as of 12/27/24 1329 Medication Sig Last Dose Taking SINGULAIR 10 mg tablet Take 10 mg by mouth daily at bedtime. Yes dextroamphetamine-amphetamine (ADDERALL) 20 mg tablet Take 1 tablet by mouth two times a day. Yes nortriptyline (PAMELOR) 10 mg capsule Take 1 capsule by mouth daily at bedtime. Yes divalproex ER (DEPAKOTE ER) 500 mg 24 hr tablet Take 1 tablet by mouth daily at bedtime. Yes acetaZOLAMIDE SR (DIAMOX SEQUELS) 500 mg capsule Take 1 capsule by mouth two times a day. Yes hydrOXYzine pamoate (VISTARIL) 50 mg capsule Take 50 mg by mouth daily at bedtime. Yes Cetirizine 10 mg cap Yes mv,calcium,min/iron/folic/vitK (MULTI FOR HER ORAL) Yes magnesium oxide (MAG-OX) 400 mg (241.3 mg magnesium) tablet Take 1 tablet by mouth once daily. atogepant (QULIPTA) 60 mg tablet Take 1 tablet by mouth once daily. No medication comments found. ALLERGIES Allergen Reactions Adhesive Rash Latex Rash Levaquin [Levofloxa* Swelling Swelling tongue Morphine Angioedema Says tongue swells up, vomits, chest pain Nickel Rash, Unknown Oxycodone Rash Oxycodone-Acetamino* Rash Silk Other: See Comments Silk tape Sulfadiazine Rash Sulfamethoxazole-Tr* Swelling Adhesive Tape (Cammie* Hives, Itching Objective PHYSICAL EXAM: VITALS: Resp 18 Ht 5' 2.5 (1.59m) Wt 157 lb (71.2kg) BMI 28.24 kg/(m^2). VIDEO EXAM: (if completed, performed via video enabled technology) GENERAL: alert and appropriate, in no distress SKIN: no rash noted OROPHARYNX: moist mucus membranes RESPIRATORY: breathing non-labored CHEST: equal chest rise with normal respiratory effort HEART: No JVD or cyanosis noted. Patient reports mild edema in lower ext ABDOMEN: soft and non-tender to self-palpation NEUROLOGIC: no obvious deficit Diagnostic tests reviewed for today's visit: Lab Value Units Date High Low HB 12.9 g/dL 12/15/2024 15.5 11.5 HCT 37.2 % 12/15/2024 46.0 36.0 WBC 7.77 k/uL 12/15/2024 11.00 3.70 PLT 313 k/uL 12/15/2024 400 150 NA 139 mmol/L 12/16/2024 144 136 K 3.8 mmol/L 12/16/2024 5.1 3.7 GLUC 137 mg/dL 12/16/2024 99 74 BUN 18 mg/dL 12/16/2024 21 7 CREAT 1.01 mg/dL 12/16/2024 0.96 0.58 ALT 18 U/L 12/15/2024 38 7 AST 21 U/L 12/15/2024 35 13 TBILI 0.2 mg/dL 12/15/2024 1.3 0.2 Hemoglobin A1C (%) Date Value 08/05/2024 4.4 Stress test 07/18/2022 EXTERNAL CARDIOLOGY (08/13/2022 3:58 PM) ECG COMPLETE (07/18/2022 11:20 AM) Procedure Date : Jul 18 2022 11:20:10 Edit Date : Jul 24 2022 09:34:51 Diagnosis: NORMAL SINUS RHYTHM CANNOT EXCLUDE INFERIOR MYOCARDIAL INFARCTION , AGE UNDETERMINED ANTERIOR T WAVE ABNORMALITY ABNORMAL ECG Instructions Given to Patient: Instructions located in the after visit summary. Patient given verbal and written preop instructions and voices comprehension and compliance. SIGNATURE: Ellie North APRN.CNP PATIENT NAME: Karolina Nicole DATE: 12/27/2024 [1] Social History Tobacco Use Smoking status: Every Day Current packs/day: 0.50 Types: Cigarettes Smokeless tobacco: Never Tobacco comments: 1 pack every 2 days Vaping Use Vaping status: Never Used Substance Use Topics Alcohol use: Not Currently Drug use: Not Currently documented in [facility] NoteHNO ID: [id number] Author: STACIA VALDOVINOS MD Service: Neuroendovascular Intervention Author Type: Fellow Type: Plan of Care Filed: 12/22/2024 10:13 Note Text: The patient was taken to the angio suite for the planned procedure. She became agitated during preparation. Upon attempting to place the sheath, she remained agitated and moved all extremities despite having received 2 mg of Versed, 125 ?g of fentanyl, and 25 mg of Benadryl. Given the risk of compromising sterility and the potential for vessel injury due to constant movement, we informed the patient that it would not be safe to proceed. The procedure will be rescheduled to be performed under general anesthesia for her safety. Stacia Valdovinos MD Endovascular Surgical Neuroradiology December 22, 2024 10:13 [facility]08-13-2025 Telephone encounter Note* Telephone Encounter - Nilsa Hernandez RN - 12/21/2024 9:56 AM EDT Spoke to patient to arrange cerebral angiogram with venous manometry at [facility] with Dr Thomas per clinic conversation. Patient would like to have procedure tomorrow. Lab work is current. Updated medications and reviewed medications to take prior to procedure. Reviewed Patient should be NPO withclear liquids up to 2 hours prior then NPO. Patient requested arrival time of 8 am due to travel. Post procedure instructions reviewed. Will also send via My Chart [facility]08-13-2025 Miscellaneous Notes* Telephone Encounter - Nilsa Hernandez RN - 12/21/2024 9:56 AM EDT Spoke to patient to arrange cerebral angiogram with venous manometry at [facility] with Dr Thomas per clinic conversation. Patient would like to have procedure tomorrow. Lab work is current. Updated medications and reviewed medications to take prior to procedure. Reviewed Patient should be NPO withclear liquids up to 2 hours prior then NPO. Patient requested arrival time of 8 am due to travel. Post procedure instructions reviewed. Will also send via My Chart documented in this encounterMer[facility]-12-2025 Instructions* Patient Instructions* Bebe Thomas MD - 12/20/2024 6:37 PM EDT We discussed your idiopathic intracranial hypertension (IIH): - You are currently taking Diamox (1,000 mg daily) to manage your IIH. You should continue on your current medications per Dr. Sherwood. - We reviewed your imaging, including an MRV from June 2024, which shows narrowing in both transverse sinuses. This is a common finding in IIH and may contribute to increased intracranial pressure. - We discussed the option of venous stenting as a potential treatment for your IIH. This procedure may help reduce intracranial pressure and preserve vision but is not expected to improve your headaches. - To determine if you are a candidate for stenting, we will perform a venous angiogram and pressuremeasurements. This will assess the degree of narrowing and pressure gradient in your veins. If the gradient is greater than 8 mmHg, you may benefit from stenting. - The angiogram is a minimally invasive procedure performed under sedation. You will be comfortableand unlikely to remember the procedure. My nurse will contact you to schedule this as soon as possible, potentially within the next week. We discussed your headaches: - Based on your description, your headaches do not appear to be typical IIH headaches and may be related to occipital neuralgia, which involves the occipital nerve at the back of the neck. - Stenting is not expected to alleviate your headaches. I recommend continuing to work with your neurologist, Sarita Francis, to explore other treatment options for headache management. We discussed your work and daily functioning: - You expressed concerns about your ability to work due to your symptoms. From my perspective, it is safe for you to return to work if you feel able, but this decision depends on how your symptoms are affecting your ability to function. - If you feel unable to work, you may want to wait until after the angiogram and further evaluations to reassess your condition. Next steps: - Our nurse will contact you to schedule the venous angiogram and pressure measurements. If you do not hear from her soon, please call my office to follow up. - After the angiogram, we will review the results together to determine if stenting is appropriate for you. - Continue working with your neurologist for headache management and discuss any worsening symptomswith her. Please let us know if you have any additional questions or concerns. documented in this encounterMer[facility]08-12-2025 Note[facility] History of Present illness Narrative* Bebe Thomas MD - 12/20/2024 2:17 PM EDT Images from the original note were not included. [facility]: Cerebrovascular Neurosurgery and Endovascular Surgical Neuroradiology Consult Virtual Visit Patient consents to this virtual visit using MEDOVENTom Video Visit. The visit required patient-provider interaction for the medical decision making as documented below. I have communicated my name and active licensure. The patient's identity and physical location wereverified at the time of this visit. Either the patient or their legal outside energy sales representatives has been informed of the risks and benefits of -- and alternatives to -- treatment through a remote evaluation andconsents to proceed with the evaluation remotely. Karolina Nicole [facility]#: [id number] Date of Service: 12/20/2024 Primary Care Provider: Yoan Ivey MD The patient was referred by Lloyd Sherwood MD for opinion regarding venous sinus stenting for idiopathic intracranial hypertension. I will provide a written report of my findings to the referring through letter, e-communication, or epic. Subjective Karolina Nicole is a 39-year-old female with a history of idiopathic intracranial hypertension (IIH) presenting for evaluation for venous sinus stenting. Karolina was diagnosed with IIH on January 23, 2022, after losing vision in her right eye. Diagnosis was confirmed by MRI, MRV, and lumbar punctur e. She was initially prescribed Diamox 500 mg but discontinued it after her vision improved and shelost 50 pounds on Ozempic. From April 2023 to August 25, 2023, she experienced multiple illnesses, including COVID-19, influenza, and strep throat. On August 23, 2023, she was evaluated for meningitis, and a lumbar puncture on August 24 confirmed IIH. She was advised to resume Diamox by her neurologist and has been taking itsince, with her dosage currently at 1000 mg. She reports developing kidney stones and states that her body can't handle any more increases. She experiences chronic headaches described as pressure, tightness, and stiffness extending from ear to ear and down her neck. These headaches are triggered by bending her head down and are alleviated by lying down. She has tried Parafon Forte, Toradol, and prednisone without relief. Depakote provided relief from mid-October until two and a half weeks ago, but the headaches have since returned. She is currently off work due to the severity of her symptoms. 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 She experiences blurry vision and describes a strobe light effect in her peripheral vision but does not endorse loss of peripheral vision. She notes that wearing glasses worsens the pain behind her ears. She is a single mother and expresses significant emotional distress and anxiety related to her condition and its impact on her ability to work and care for her children. She is concerned that her symptoms may not be solely due to IIH and is seeking further evaluation. REVIEW OF SYSTEMS Head: (+) occipital pressure headache Eyes: (+) blurry vision, (+) peripheral strobe light phenomenon, (+) photophobia, (-) peripheral vision loss Ears/Nose/Mouth/Throat: (+) pain behind ears Neck: (+) neck pain, (+) neck stiffness, (+) limited neck rotation Neurological: (+) imbalance with falls, (+) dropping objects, (+) forgetfulness, (+) cognitive fog,(+) word-finding difficulty, (+) speech difficulty Psychiatric: (+) emotional lability, (+) anxiety ACTIVE PROBLEM LIST Migraine Without Aura, Not Intractable, Without Status Migrainosus Migraine Headaches Benign Intracranial Hypertension Nicotine use disorder, F17.2 PAST MEDICAL HISTORY Diagnosis Date Fibromyalgia IIH (idiopathic intracranial hypertension) Osteoarthritis of multiple joints Palindromic rheumatism PAST SURGICAL HISTORY Procedure Laterality Date LAPAROSCOPIC CHOLECYSTECTOMY 07/29/2023 LAPAROSCOPY-ROBERTO 10/19/2012 LIGATE FALLOPIAN TUBE Bilateral 12/15/2011 REMOVAL OF OVARY/TUBE(S) Bilateral 10/19/2012 TOTAL ABDOM HYSTERECTOMY 10/19/2012 Allergies: Adhesive, Latex, Levaquin [Levofloxacin], Morphine, Nickel, Oxycodone, Oxycodone-Acetaminophen, Silk, Sulfadiazine, Sulfamethoxazole-Trimethoprim, and Adhesive Tape (Rosins) Medications: Current Outpatient Medications Medication Sig chlorzoxazone (PARAFON FORTE DSC) 500 mg tablet Take 1 tablet by mouth four times a day as needed. dextroamphetamine-amphetamine (ADDERALL) 20 mg tablet Take 1 tablet by mouth two times a day. nortriptyline (PAMELOR) 10 mg capsule Take 1 capsule by mouth daily at bedtime. keTORolac (TORADOL) 10 mg tablet Take 1 tablet by mouth every 6 hours as needed for headache or pain. acetaZOLAMIDE (DIAMOX) 250 mg tablet Take 1 tablet by mouth every evening. (Patient taking differently: Take 500 mg by mouth every evening.) divalproex ER (DEPAKOTE ER) 500 mg 24 hr tablet Take 1 tablet by mouth daily at bedtime. atogepant (QULIPTA) 60 mg tablet Take 1 tablet by mouth once daily. acetaZOLAMIDE SR (DIAMOX SEQUELS) 500 mg capsule Take 1 capsule by mouth two times a day. hydrOXYzine pamoate (VISTARIL) 50 mg capsule Take 50 mg by mouth daily at bedtime. Cetirizine 10 mg cap mv,calcium,min/iron/folic/vitK (MULTI FOR HER ORAL) No current facility-administered medications for this visit. SOCIAL HISTORY[1] Objective Patient Entered Questionnaires PHYSICAL EXAMINATION There were no vitals taken for this visit. (Zoom visit, exam by video) General: Well-developed, well-nourished, in no acute distress. HEENT: Normocephalic, atraumatic. Sclerae anicteric. Neurological: Awake, alert, oriented to person, place, and time. Speech fluent, no dysarthria. Goodattention and insight into illness. Cranial Nerves: Extraocular movements intact without nystagmus. Facial movements normal and symmetric. RESULTS I personally reviewed the following imaging studies and provide my interpretation below. MRV 06/2024 shows narrowing of the bilateral transverse sinuses. Assessment & Plan # IIH (idiopathic intracranial hypertension) (G93.2) Patient has a history of IIH and papilledema in the past, although no papilledema on recent exams. She is struggling with side effects on her current dose of Diamox. The patient and I discussed venous sinus stenting for IIH in detail. Stenting is indicated primarily for patients with papilledema and impending vision loss and failing medical therapy. Although mostpatients get some headache relief initially from stenting, the majority (>80%) have recurrent headaches after one year. We discussed angiography and venous pressure measurements, which helps measure the degree of stenosis. I typically offer stenting to patients with a pressure gradient of 8 mmHgor more. Stenting requires the patient to be on Aspirin and Plavix for 3-6 months and fails (recurrent stenosis) in approximately 15% of patients necessitating additional treatment. She would like to proceed with angiography and venous manometry to evaluate for stent candidacy. Ifdionisio is an appropriate candidate, we would stent at a second session. We discussed the purpose, risks and complications of angiography including groin hematoma and a small (< 05/999) periproceduralrisk of stroke. She would like to proceed as soon as possible. Plan: - Ordered venous pressure measurements and angiogram to assess the pressure gradient across the narrowed veins. Scheduled the procedure as soon as possible, with potential openings in December and January. - Advised patient to continue current medication regimen and follow up with headache specialist Sarita Francis for further management of headaches. - Patient understands and agrees with the plan. I spent a total of 45 minutes on the date of the service which included preparing to see the patient, [id number] patient care, completing clinical documentation, obtaining and/or reviewing separately obtained history, performing a medically appropriate examination, counseling and educating the pat ient/family/caregiver, ordering medications, tests, or procedures, communicating with other HCPs (not separately reported), independently interpreting results (not separately reported), and communicating results to the patient/family/caregiver. Recording using Gritness software for draft documentation of the visit was discussed with the patient/authorized outside energy sales representatives; all questions welcomed and answered. Patient/authorized outside energy sales representatives agreed to proceed SIGNATURE Bebe Thomas MD 12/20/2024 Lloyd Sherwood [address] [facility] [address] [place] [id number] [place] [id number] [1] Social History Tobacco Use Smoking status: Every Day Current packs/day: 0.50 Types: Cigarettes Smokeless tobacco: Never Tobacco comments: 1 pack every 2 days Vaping Use Vaping status: Never Used Substance Use Topics Alcohol use: Not Currently Drug use: Not Currently documented in this encounterMer[facility]08-09-2025 NoteHNO ID: [id number] Author: NOTE, INTERFACE, ? Service: ? Author Type: ? Type: Progress Notes Filed: 12/17/2024 15:50 Note Text: Epic Scheduled Downtime: 12/17/2024 1:00:00 AM to 12/17/2024 2:17:00 [facility]08-08-2025 NoteHNO ID: [id number] Author: WILY SALCIDO, FAY Service: Care Management Author Type: Registered Nurse Type: Care Mgt Initial Assessment Filed: 12/16/2024 10:43 Note Text: CARE MANAGEMENT: ASSESSMENT AND DISCHARGE PLAN SERVICE DATE: December 16, 2024 SERVICE TIME: 10:39 AM PCP: Yoan Ivey MD Primary Contact: Extended Emergency Contact Information Primary Emergency Contact: Winifred Matias [address]: [address] [place] [id number] [place] [address] [place] Mobile Relation: Friend Secondary Emergency Contact: Jennifer Gary Mobile Relation: Friend Admission Status: Observation Insurance Provider: VANNA WILEY MEDICAID OF [place] Discharge Planning requested by: Per Department Practice Potential Transition Plans Home Advance Directives Current Advance Directive: None Jackspooler Attempted to Assist with AD Completion: Yes Action: Education Provided Current Living Arrangements and Support Lives with: Children Type of Residence: Private Residence (House) Support: Children, Family members How do you manage to accomplish the following: Independent: Ambulation, Bathe/Shower, Meals/Meal Prep, Dress, Transportation to appointments/community, Medication Management, Going to the bathroom Current Services/Equipment Current Post-Acute Service(s): None Discharge Planning Patient Goal(s): General wellness, Less pain Wiergate of Choice Explained: Wiergate of Choice Given: No Reason Not Given: No placements necessary Discharge Planning Participant(s): Patient Patient/Family Comments: Caregiver Assessment: Caregiver is ready, willing and able to meet the patient's needs as recommended by the inter-professional team: No Caregiver needed Transport at Discharge: Transportation Arrangements: Car Needs Prior to Discharge: Needs Prior to Discharge: Other: See Comment (medical clearance) Post-Acute Discharge Plan: CM met with patient at bedside to complete assessment. Pt is a 39 year old female admitted for headaches. Patient has a past medical history of IIH. Pt lives with her three daughters She is normally is independent with adl's She is able to drive. 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 Anticipating no skilled need at discharge. Pt will have a family member pick her up once she is medically discharged. SIGNATURE: Wily Salcido RN PATIENT NAME: Karolina Nicole DATE: December 16, 2024 TIME: 10:39 [facility]08-05-2025 [facility] 12-13-2024 History of Present illness Narrative* Lloyd Sherwood MD - 12/13/2024 8:01 AM EDT ??This is a telemedicine visit that was performed using the Coridea virtual platform with the originating site at my work office and the distant site at the patient's home. Verbal consent to participatein a combined audio and video visit was [...] visit. Either the patient or their legal outside energy sales representatives has been informed of the risks and benefits of -- and alternatives to -- treatment through a remote evaluation andconsents to proceed with the evaluation remotely. Karolina [...] patient. She then established with neurology at [facility] in September of 2023 and was put on diamox. She was followed by Dr. Goldberg as well as Dr. Landrum. At initial [...] CSF analysis was not yet received from [facility], withseveral results discussed during the virtual that [...] as to how she was doing via [employer]. ASSESSMENT/PLAN: (G93.2) IIH (idiopathic intracranial hypertension) (primary encounter diagnosis) (H93.A9) Pulsatile tinnitus (G43.711) Chronic migraine without aura, with intractable migraine, so stated, with status migrainosus (R13.19) Other dysphagia (R29.898) Weakness of both lower extremities At her 12/13/2024 virtual visit she reported [...] to take a break due to her legs becoming weak -- she was pending repeat [...] [facility] She still had pulsatile tinnitus despite having increased up to diamox 500 mg twice a day ~2.5 weeks prior (around mid November). Repeat BMP in 12/02 reflected the metabolic acidosis from this dosing - which we would continue to monitor. There was no binocular diplopia or transient visual obscurations. We discussed and reviewed the prior June 2024 MRV images together and ultimately she was interested in consult with [facility], with whom I will discuss her care. Their expertise is greatly appreciated. I will plan to see her back in 1 month in the clinic as previously scheduled, unless concerns arisein the interim, for which she was provided my contact information and encouraged to reach out. ER presentation is otherwise advised for any acute onset neurological deficits. Our [facility] same day access clinic can be reached at: [phone]. Lloyd Sherwood MD 8:58 AM 12/13/2024 FOR ADMINISTRATIVE PURPOSES ONLY: My impression of this case is based upon an assessment of the the patient's subacute on chronic problems listed above that pose a threat to visual function. 50 minutes were spent on total patient care on the day of service that includes mefb-le-dceb time and non. Greater than half of this time was spent counseling and coordinating care. This time was broken down into: 2 minutes reviewing the patient record before the visit, 5 minutes performing a medically appropriate neuro-ophthalmic history, 33 minutes counseling / educating the patient, and 10 minutes coordinating care for the patient. I communicated with Dr. Ivey and Dr. Landrum regarding the management of this patient. The assessment and plan were discussed extensively with the patient who was amenable and voiced understanding. documented in this encounterMercy Health [facility]08-02-2025 NoteOhiohealth [facility] Center08-02-2025 History of Present illness Narrative* Leanna Roberts MD - 12/10/2024 10:08 AM EDT UNIVERSAL PROTOCOL / SAFETY CHECKLIST Procedure to be Performed: EMG Sign In: A Moment of CARE was completed. Personnel directly involved with the procedure wore the appropriate PPE (Personal Protective Equipment). Patient/Surrogate Stated/Verified: PATIENT VERIFIED(optional for EMERGENT procedures): Patient name, Date of , Relevant allergies, and The intended procedure Time Out Communication: Intended patient and procedure match the source documents. Correct side/site marked and visible. Sign Out: Leanna Roberts MD SIGN OUT (optional for EMERGENT procedures): Post-procedure follow-up management communicated and Plan of Care Visit completed when applicable. HARISH Olivo. Leanna Roberts MD documented in this encounterMercy Health – [facility]07-29-2025 Telephone encounter Note * Telephone Encounter - Jailyn Do - 12/06/2024 4:21 PM EDT Images from the original note were not included. Patient's response to this message: [facility]07-29-2025 Miscellaneous Notes* Telephone Encounter - Murphy Jiménez Jailyn - 12/06/2024 4:21 PM EDT Images from the original note were not included. Patient's response to this message: documented in this encounterMercy Health – The Jewish Hospital06-13-2025 Telephone encounter Note * Telephone Encounter - Shannan Bernard - 10/21/2024 9:42 AM EDT Received DENIAL from [employer] for Qulipta (atogepant) by [email or web address] Authorization/Denial #: [id number] Denial Reason: Patient needs to have tried Aimovig, Ajovy or Emgality 1. Member has a history of at least 30 days of therapy with THREE different preferred controller migraine medications and ONE step therapy drug in this UPDL category, which include but are not limited to: beta-blockers (such as: propranolol and timolol), tricyclic antidepressants (such as: amitriptyline and nortriptyline), anticonvulsants (such as: topiramate), and/or serotonin- norepinephrine reuptake inhibitors (such as: venlafaxine ER capsules and duloxetine capsules (20, 30 and 60 mg); AND 2. Member has a history of at least 30 days of therapy of Aimovig, Ajovy or Emgality [facility]06-13-2025 Miscellaneous Notes* Telephone Encounter - Shannan Bernard - 10/21/2024 9:42 AM EDT Received DENIAL from [employer] for Qulipta (atogepant) by [employer] Authorization/Denial #: [id number] Denial Reason: Patient needs to have tried Aimovig, Ajovy or Emgality 1. Member has a history of at least 30 days of therapy with THREE different preferred controller migraine medications and ONE step therapy drug in this UPDL category, which include but are not limited to: beta-blockers (such as: propranolol and timolol), tricyclic antidepressants (such as: amitriptyline and nortriptyline), anticonvulsants (such as: topiramate), and/or serotonin- norepinephrine reuptake inhibitors (such as: venlafaxine ER capsules and duloxetine capsules (20, 30 and 60 mg); AND 2. Member has a history of at least 30 days of therapy of Aimovig, Ajovy or Emgality documented in this encounterMercy Health – The Jewish Hospital06-05-2025 Telephone encounter Note * Telephone Encounter - Mary King - 10/13/2024 4:33 PM EDT Received outside medical records Uploaded into scanned docs [facility]06-05-2025 Miscellaneous Notes* Telephone Encounter - Mary King - 10/13/2024 4:33 PM EDT Received outside medical records Uploaded into scanned docs documented in this encounterMercy Health – The Jewish Hospital06-04-2025 History of Present illness Narrative* Sergei Harrington APRN.[facility] - 10/12/2024 11:00 AM EDT Images from the original [...] Lymph 1.00 - 4.00 k/uL 1.24 Abs Camas <0.87 k/uL 0.29 Abs Eosin <0.46 k/uL [...] Once a day^Disp: ^Rfl: calcium 26/magnesium 15/zinc (KQHNIQP-YYRYZSQXW-XMUG COMPLEX ORAL)^Take by mouth once daily. Patient does not know dosing^Disp: ^Rfl: amoxicillin-clavulanate potassium (AUGMENTIN) 875-125 mg per tablet^Take 1 tablet by mouth two times a day.^Disp: ^Rfl: divalproex ER (DEPAKOTE ER) 500 mg 24 hr tablet^Take 2 tablets by mouth once daily for 5 days, THEN1 tablet once daily for 5 days.^Disp: 15 [...] capsules by mouth once daily.^Disp: ^Rfl: (Patient nottaking: Reported on 10/10/2024) Cetirizine 10 mg cap^^Disp: [...] normal in rate, volume and articulation, and clear,coherent, and relevant. Short and jail memory, cognition and general fund of knowledge [...] which included preparing to see the patient, suor-fr-smkp patient care, completing clinical documentation, obtaining and/or reviewing separately obtained history, performing a medically appropriate examination, and counseling and educating the patient/family/caregiver. Sergei Harrington APRN.[facility] October 12, 2024 documented in this encounterMercy Health – The [facility] Hospital06-04-2025 NoteOhiohealth Grant Medical Center06-04-2025 NoteOhiohealth [facility] Center06-04-2025 History of Present illness Narrative* Blanca Boothe RN - 10/12/2024 10:20 AM EDT Karolina arrived to the infusion suite rating her pain 2/10 without nausea/ dizziness. She was educated on medications to be administered per therapy plan and verbally agreed to proceed with headache infusions. Spinner Fixer confirmed. First 1/4 dose complete and pt is c/o some chest discomfort/SOB. Bp 107/69, HR 71. Magnesium started. LIP aware. Mg finished, patient explained chest discomfort resolved completely. Patient asked by RNif they would like to continue DHE (per LIP approval), patient declined. Mg completed, patient rated pain 1/10 with no nausea/ dizziness by end of infusion. She endorsed her chest tightness/ SOB completely resolved. Discharged to customer service driver. documented in this encounterMercy Health – The Jewish Hospital06-03-2025 NoteOhiohealth Grant Medical Center06-03-2025 History of Present illness Narrative* Kerline Dia RN - 10/11/2024 11:09 AM EDT 1045: Patient in for second day of IV infusions. Patient rated headache 2/10. Patient denied nauseaand dizziness. Patient educated on medications to be administered. Patient verbalized understandingand agreed to proceed with infusions. Pt does have a customer service driver. 1212: During second half of DHE, pt stated she is feeling chest discomfort (tightness/pressure). DHE infusion stopped. IV fluids running. Jonnie Shaver SPARE PERSON notified and advised to hold the rest of DHE today. Pt also moderately nauseated. PRN zofran administered. Pt requesting DHE to be switched back to quarter doses for day 3 infusion. Jonnie Shaver SPARE PERSON notified and ordered switched. 1229: Chest discomfort almost completely resolved. Magnesium infusion started. 1345: Pts infusions complete. Pt stated total relief of chest discomfort. Pt rated headache 0/10. Pt denied nausea and dizziness. Pt discharged from treatment room. documented in this encounterMercy Health – The Jewish Hospital06-02-2025 NoteOhiohealth [facility] Center06-02-2025 History of Present illness Narrative* Blanca Boothe RN - 10/10/2024 11:23 AM EDT Karolina arrived to the infusion suite rating pain 6/10 with no nausea/ dizziness. She was educated onmedication sto be administered per therapy plan and [...] the infusion without nausea/ dizziness. Discharged to customer service driver. documented in this encounterMercy Health – The Jewish Hospital06-02-2025 NoteOhiohealth [facility] Center06-02-2025 Telephone encounter Note* Telephone Encounter - Glo Fulton LSW - 10/10/2024 8:54 AM EDT tray worker received a consult referral from Dr. Sherwood to address concerns regarding disability process and community resources. RUSSELL consulted with Dr. Barb Hicks who reviewed patient's chart and has offered to see the patient in [place] for a low vision evaluation. tray worker discussed plan of care with patient who would like to proceed with scheduling with Dr. Hicks. Lengthy discussion regarding patient's diagnosis of IIH and relation to visual disturbances which is making it hard for patient to work and function overall with ADL's/IADL's including driving. SW discussed consulting with a county attorney and offered legal resources if needed. SW also advised asking for a [facility] neurology social media analyst who can help with support and disability paperwork since the focus will be from IIH diagnosis and treatment. SW will send patient GAMALIEL forms to [employer] Patient will request records from Dr. Janina Soria (neurology) and Dr. Pablo Phipps (retina specialist from [facility]). Patient got an important call during the conversation and stated she will call SW back later. Patient has SW contact number in her phone. will send [facility] scheduling number with GAMALIEL forms. [facility]06-02-2025 Miscellaneous Notes* Telephone Encounter - Glo Fulton LSW - 10/10/2024 8:54 AM EDT tray worker received a consult referral from Dr. Sherwood to address concerns regarding disability process and community resources. RUSSELL consulted with Dr. Barb Hicks who reviewed patient's chart and has offered to see the patient in [place] for a low vision evaluation. tray worker discussed plan of care with patient who would like to proceed with scheduling with Dr. Hicks. Lengthy discussion regarding patient's diagnosis of IIH and relation to visual disturbances which is making it hard for patient to work and function overall with ADL's/IADL's including driving. SW discussed consulting with a county attorney and offered legal resources if needed. SW also advised asking for a [facility] neurology social media analyst who can help with support and disability paperwork since the focus will be from IIH diagnosis and treatment. RUSSELL will send patient GAMALIEL forms to [employer] Patient will request records from Dr. Janina Soria (neurology) and Dr. Pablo Phipps (retina specialist from [facility]). Patient got an important call during the conversation and stated she will call SW back later. Patient has SW contact number in her phone. will send [facility] scheduling number with GAMALIEL forms. documented in this encounterMercy Health – The Jewish Hospital05-30-2025 Instructions* Patient Instructions* Zenaida Landrum, - 10/07/2024 12:18 PM EDT - Initiated Depakote 1000 mg daily for 5 days, followed by 500 mg daily for 5 days cycle breaker - Continue Diamox 250 mg 2x daily - Scheduled for a 3-day infusion therapy starting Thursday to include DHE, muscle relaxants and magnesium. - Will work on obtaining insurance approval for oral migraine medication, Atogepant oral medicationto be taken daily (will be mailed to [...] Location Headache Infusions are done at [facility] in the [facility]. Medications There are many medications that [...] more of an approximate time after she receivesthe orders from your provider. It is best to have a customer service driver, as some medications we use may cause drowsiness. If you do not have a customer service driver, please let your nurse know and [...] listen on your device. All chairs in thetreatment room recline for comfort. You may bring a light lunch, snack, or beverage. We do have some sodas, juices, and crackers if you prefer. The room is maintained at a dark and cool temperature, s o layer clothing for comfort. We will need access to your arms for placement of an IV. Please refrain from wearing perfumes, colognes, and heavy scented lotions. Insurance Coverage: For questions about insurance coverage, please contact financial services representative team at: [phone] or [phone]. Prior authorization is not usually required. Travel/Lodging: If you are traveling from outside the area and need lodging, [facility] offers 3 hotels on campus with bus shuttle service for your convenience. Each of these hotels offer discounted rates for our patients. For more information please visit: [email or web address] documented in this encounterMercy Health – The Jewish Hospital05-30-2025 History of Present illness Narrative* Zenaida Landrum DO - 10/07/2024 7:30 AM EDT Images from the original note [...] visit. Either the patient or their legal outside energy sales representatives has been informed of the risks and benefits of -- and alternatives to -- treatment through a remote evaluation andconsents to proceed with the evaluation remotely. Headache and Facial [facility]: Headache follow-up Follow-up Visit Last visit [...] only chronic disc elevation, with stable OCT andslight nonspecific blind spot defects b/l on VF. (while on diamox) 06/2024 bMRI and MRV stable with subtle venous b/l TV stenosis and mild signs seen with IIH (ON tortuosity and partially empty sella). ~~~~~~~~ 08/2023 visit with Stuart, diamox 500/750 *08/2023 visit with me: nephrology [...] would have RNFL thickness increased like in [id number] (normal is around 97-113), and there was no visual field impairments and the VF testing of theright eye was very similar to [facility] on the testing. Offered preventative medications for migraine (flare due 2/2 estrogen changes suspected)- she declined them all and states her headaches are only IIH not migraine. I also offered repeat LP that she desired (though will be skewed (lowered) whileon diamox) plan: LP ordered, continue diamox 750/750 09/28/[address] Sherwood- exam w/ decreased best corrected visual acuity, intact color vision,worsening scattered arcuate zone areas of decreased sensitivity on the L VF, NO active optic disc edema either eye. Bscan was also negative for indirect of intracranial hypertension (while on diamox) 09/30/2024 - [facility] IR guided LP (lateral decub)- OP 27 mm CSF, removed 31 ml, closing pressure 11. (Off Diamox 24 hours), laid for 1 hour only and had to get to graduation 10/04/2024 [facility] ED admission overnight - due to KHAN [...] no phonophobia. Denies nausea, except for two previousepisodes. - She was perseverative about her MRV [...] 2x and completed IR LP with OP 27which did not improve or change her head [...] When she describes the most recent events overthe last week, there is no evidence of post lumbar puncture headache, rather her headaches remain unchanged and have always had the slight positional component. She is extremely frustrated by these debilitating headaches over the last 5 to 6 weeks. I reiterated to her that because she had no improvement with the lumbar puncture that these headaches were most likely with an underlying migraine phen otype which is very common in IIH, and I suspect that this even before the lumbar puncture as we had talked about trying to start migraine preventative medications numerous times, but she declines, she is adamantly not interested in being on any antihypertensives, antiseizure, antidepressants offered. She was not interested in monthly injectable mABs. I additionally offered her ONB and infusions,which she was not interested in. After some [...] above were given in AVS. Future Considerations: [facility] prevent[facility], offered: BB, SNRI, ONB, consider PT [...] require high frequency use which can lead toMedication Overuse Headache: Analgesic Ketorolac (Toradol) cycle breaker 09/20[address] Patient discussed with Dr[address] Puente, staff Neurologist. Zenaida Landrum DO, MBA Headache Medicine Fellow, PGY5 Adult Neurologist/ Board Certified Headache & Facial Pain Section, [facility] STAFF PHYSICIAN NOTE OF PERSONAL [...] the case and the plans with Dr. Landrum, and I fully agree with the recommendations as outlined above. We spent a total of 30 minutes on the date of the service, with more than 50% of the time devoted to patient counseling. Loraine Puente MD Staff Neurologist Headache &Facial Pain Section 10/07/2024 documented in this encounterMercy Health – The Jewish Hospital05-30-2025 NoteOhiohealth [facility] Center05-29-2025 Telephone encounter Note* Telephone Encounter - Lloyd Sherwood MD - 10/06/2024 11:24 AM EDT Hi I had a virtual visit with [...] in detail to the patient. [facility]05-29-2025 Miscellaneous Notes* Telephone Encounter - Lloyd Sherwood MD - 10/06/2024 11:24 AM EDT Hi I had a virtual visit with [...] this all in detail to the patient. * Telephone Encounter - Vero Dejesus - 10/06/2024 11:10 AM EDT Received a call from Dr. Yoan Ivey's office. Patient Karolina Nicole is not doing well since her lumbar puncture. He states she has a headache and seeing flashing lights and not doing so well. Wouldlike for the patient to follow up with Dr. Sherwood tomorrow if at all possible. I explained that the patient had the lumbar puncture at [facility]. He order a number of lab work yesterday, CBC, Blood cultures (the results will not be back for a few days) profile 14, [place] and [place] A. He said if you could call him at his office [phone]. He did restart her on Diamox 250 mg twice a day yesterday. documented in this encounterMercy Health – The Jewish Hospital05-29-2025 Telephone encounter Note * Telephone Encounter - Vero Dejesus - 10/06/2024 11:10 AM EDT Received a call from Dr. Yoan Ivey's office. Patient Karolina Nicole is not doing well since her lumbar puncture. He states she has a headache and seeing flashing lights and not doing so well. Wouldlike for the patient to follow up with Dr. Sherwood tomorrow if at all possible. I explained that the patient had the lumbar puncture at [facility]. He order a number of lab work yesterday, CBC, Blood cultures (the results will not be back for a few days) profile 14, [place] and [place] A. He said if you could call him at his office [phone]. He did restart her on Diamox 250 mg twice a day yesterday. [facility]05-28-2025 Telephone encounter Note* Telephone Encounter - Vero Dejesus - 10/05/2024 2:16 PM EDT Patient needed a work excuse for yesterday and today to take to work tomorrow. Sent Via [employer]. [facility]05-28-2025 Miscellaneous Notes* Telephone Encounter - Vero Dejesus - 10/05/2024 2:16 PM EDT Patient needed a work excuse for yesterday and today to take to work tomorrow. Sent Via [employer]. documented in this encounterMercy Health – The Jewish Hospital05-28-2025 History of Present illness Narrative* Lloyd Sherwood MD - 10/05/2024 7:11 AM EDT ??This is a telemedicine visit that was performed using the [employer] platform with the originating site at my work office and the distant site at the patient's home. Verbal consent to participatein a combined audio and video visit was [...] visit. Either the patient or their legal outside energy sales representatives has been informed of the risks and benefits of -- and alternatives to -- treatment through a remote evaluation andconsents to proceed with the evaluation remotely. Karolina [...] patient. She then established with neurology at [facility] in September of 2023 and was put on diamox. She was followed by Dr. Goldberg as well as Dr. Landrum. At initial [...] CSF analysis was not yet received from [facility], withseveral results discussed during the virtual that [...] as to how she was doing via [employer]. I will plan to see her back in 4 months, unless concerns arise in the interim, for which she was provided my contact information and encouraged to reach out. ER presentation is otherwise advised for any acute onset neurological deficits. Our [facility] same day access clinic can be reached at: [phone]. Lloyd Sherwood MD 8:03 AM 10/05/2024 FOR ADMINISTRATIVE PURPOSES ONLY: My impression of this case is based upon an assessment of the the patient's subacute on chronic problems listed above that pose a threat to visual function. 50 minutes were spent on total patient care on the day of service that includes ohce-it-lrpa time and non. Greater than half of this time was spent counseling and coordinating care. This time was broken down into: 2 minutes reviewing the patient record before the visit, 8 minutes performing a medically appropriate neuro-ophthalmic history, 30 minutes counseling / educating the patient, and 10 minutes coordinating care for the patient. I communicated with Dr. Ivey and Dr. Landrum regarding the management of this patient. The assessment and plan were discussed extensively with the patient who was amenable and voiced understanding. documented in this encounterMercy Health – The Jewish Hospital05-28-2025 NoteOhiohealth [facility] Center05-23-2025 [place] [address] Discharge Summary Signed Patient: Karolina Nicole MR#: [id number] : 1985 Acct:[id number] Age/Sex: 39 / F Adm Date: 5 Loc: Room: [address] [place] [address]: Cindy Winslow MD Copies to: [...] pressure. Patient has been following up with F up until last week when she was evaluatedthe ER and recommended to have an outpatient lumbar puncture and fluid removal. Subsequently patient developed worsening headaches, blurry vision and increased papilledema. She was instructed to report to the emergency room. She decided to come to [facility]'s emergency room due to previous satisfactory experience at [facility]. Patient was placed in observation. Blood work is unremarkable. No fever or chills. Patient responded to intravenous Toradol and Dilaudid. Patient had LP with fluid analysis and fluid removal. Pending final report frominterventional radiologist. Cell count and cultures are not back yet. Patient is requesting to be discharged home so she can attend her children graduation green party. She isnot willing to stay any longer for any additional testing. Patient is feeling great. Patient will be instructed to resume taking Diamox as recommended by [facility] providers?follow-up with the [facility] intracranial hypertension clinic. Patient stated that her [facility] specialist instructed her to take Diamox 750 mg twice a day. No chills, no change in mental status, no no rigidity. No leukocytosis, no fever. Patient has few complex medical issues as listed above and others that are not listed. Patient is adamant about going home today so she can attend a graduation green party. She is not willing to stay any longer for any additional monitoring, diagnostic or therapeutic intervention. Her [facility] cell count and culture and pending however at this time, I do not have any legal justification to extend inpatient hospitalization against her will and desire to be dischargedhome. Patient however will require closeand frequent monitoring as well as additional work-up, investigation and therapeutic intervention that could take place from this point on post discharge. That is to prevent relapse, decompensation, r ehospitalization and other medical implications. I instructed patient to ask her primary care doctor to obtain [facility] record entirely to address abnormalities seen on labs and imagingthat I have and have not addressed during this hospitalization, follow- up on pending blood work, imaging and pathology [...] ask your primary care provider to obtain [facility] records entirely to follow up on all of the abnormal physical, laboratory, and imaging findings thatI have not addressed. Please follow-up with your [facility] providers. Please ask the [facility] to obtain [facility] pending [facility] analysis and follow the recommendations for any additional needed investigation or treatment. Please return back to the emergency room or seek medical attention if your symptoms worsen or return. Discharging you from [facility] does not mean that your medical care [...] PO DAILY Follow Up: [facility] [place] [Outside] (The office is closed. Please call Thursday morning to schedule a hospital follow up appointment) [...] oriented to place, time and person HEENT: Hazen conjunctiva and NL buccal mucosa Neck: Supple, [...] Appearance Clear, Urine pH 5.0, Ur Specific Gravity1.003, Urine Protein Negative, Urine Glucose (UA) Normal, Urine Ketones Negative, Urine Occult Blood Trace H, Urine Nitrite Negative, Urine Bilirubin Negative, Urine Urobilinogen Normal, Ur LeukocyteEsterase Negative, Urine RBC 1-2, Urine WBC 1-2, Ur Squamous Epith Cells N/A, Urine Bacteria Rare, Hyaline Casts None, Urine HCG, Qual Negative, Urine Opiates Screen Negative, Ur Barbiturates Screen Negative, Ur Phencyclidine Scrn Negative, Ur Amphetamines Screen Negative, U Benzodiazepines Scrn Negative, Urine Cocaine Screen Negative, U Marijuana (THC) Screen Negative Documented By: Cindy Winslow MD 09/30/24 1019 Signed By: 09/30/24 1031 [facility]05-23-2025 Radiology Diagnostic study note [facility] [address] [place] [address] CT Scan Report Signed Patient: Karolina Nicole MR#: [id number] : 1985 Acct:[id number] Age/Sex: 39 / F ADM Date: 5 Loc: 3T Room: [address] [place] [address] Type: ADM INOo Attending Dr: Cindy Winslow [...] The osseous structures in the skull base andthe calvarium show no abnormality. CT/CT head/brain wo con IMPRESSION: Normal noncontrasted CT brain. Impression dictated by: Dorian Hopkins M.D. 09/30/2024 8:30 AM Dictation Location[facility] Transcribed By: ODALYS 09/30/24829 Dictated By: Dorian Hopkins II, MD 09/30/24819 Signed By: 09/30/24829 [facility] Work Phone: 1(935) 861-557505-22-2025 Consult note Author Janina Soria [facility] CenterNote Date/TimeMay 2024 5:36pm[place] [address] Neurology Consult Note Signed Patient: Karolina Nicole MR#: [id number] : 1985 Acct:[id number] Age/Sex: 39 / F Adm Date: 5 Loc: Room: [address] [place] [address] Type: ADM INOo Attending Dr: Cindy Winslow MD Copies to: MD Janina Meza,MD Mireya Fernandez MD, RES~ HPI Consult Date: 09/29/24 Solar Sales Manager: Mireya Soliz MD, RES Reason for consult: [...] daily. She has been following guidance from [facility]: A comprehensive kind to [facility] by Dr. Fredy Ly and is in an [facility] support group. Initially, she was on 500 [...] afternoon: The patient has been doctoring [facility]. Her eye doctor found the papiledema. Her [...] the occipital area. She saw the neuro- revenue cycle administrator who felt that she had significant papilledema. They could not get her on soon enough for a lumbar puncture so they told her to go to the [facility] ER but she ended up coming [...] Neurologic: Reports headache(s) and Denies seizure-like activity [facility] Medical History Mixed hyperlipidemia Metabolic syndrome X [...] of dysmetria with good rapid alternating movements [id number] Tone is physiologic Sensation is intact to [...] Au M.D. 09/28/2024 9:44 PM Dictation Location: [place] [address] Assessment/Plan (1) IIH (idiopathic intracranial hypertension): (2) History of renal stone: (3) Blurry vision, bilateral: Plan Ms. Nicole is 39F with Ideopathic Intracranial Hypertension since 2021 for which she is followed by Neurologist Dr. Zenaida Landrum and Neuro-Ophthalmology DrClark Sherwood. After four weeks [...] care and confirmed this with the Fellow/Nurse Practitioner/Resident/Campus Administrator/Physician Journeyman Tool And Die Maker as noted below. 39-year-old female with a long history of idiopathic intracranial hypertension. I actually diagnosed her years ago. She has been following with the [facility] and neuro-ophthalmology and neurology there. Her [...] They actually wanted her to go to [facility] but since she had lumbar punctures with Dr. Hopkins before she decided to come here. Were trying to schedule a lumbar puncture for her for drainage however unfortunately we are at the mercy of the schedule and the radiologist being here. She has not been having that has not been on her timeframe but we did cosmetic counselor her that we do not have any control over that. She has children graduating from [employer] tomorrow at so we are trying to see if [...] <Electronically signed by DO Janina Soria> 09/29/24 1736 <Electronically signed by MD ANDRES Soliz> 09/29/24 1209 [facility] Work Phone: 1(912) 287-702305-22-2025 [place] [address] Neurology Consult Note Signed Patient: Karolina Nicole MR#: [id number] : 1985 Acct:[id number] Age/Sex: 39 / F Adm Date: 5 Loc: Room: [address] [place] [address] Type: ADM INOo Attending Dr: Cindy Winslow MD Copies to: MD Janina Meaz DO Rafik Massouh, MD Rebecca Howard, MD, RES~ HPI Consult Date: 09/29/24 Solar Sales Manager: Mireya Soliz MD, RES Reason for consult: [...] daily. She has been following guidance from [facility]: A comprehensive kind to IIH by Dr. [...] afternoon: The patient has been doctoring at [facility]. Her eye doctor found the papiledema. Her [...] the occipital area. She saw the neuro- revenue cycle administrator who felt that she had significant papilledema. They could not get her on soon enough for a lumbar puncture so they told her to go to the [facility] ER but she ended up coming [...] Neurologic: Reports headache(s) and Denies seizure-like activity [facility] Medical History Mixed hyperlipidemia Metabolic syndrome X [...] of dysmetria with good rapid alternating movements [id number] Tone is physiologic Sensation is intact to [...] Au M.D. 09/28/2024 9:44 PM Dictation Location: [place] [address] Assessment/Plan (1) IIH (idiopathic intracranial hypertension): (2) History of renal stone: (3) Blurry vision, bilateral: Plan Ms. Nicole is 39F with Ideopathic Intracranial Hypertension since 2021 for which she is followed by Neurologist Dr. Zenaida Landrum and Neuro-Ophthalmology Dr. Lloyd Sherwood. After four [...] care and confirmed this with the Fellow/Nurse Practitioner/Resident/Campus Administrator/Physician Journeyman Tool And Die Maker as noted below. 39-year-old female with a long history of idiopathic intracranial hypertension. I actually diagnosed her years ago. She has been following with the [facility] and neuro-ophthalmology and neurology there. Her [...] They actually wanted her to go to [facility] but since she had lumbar punctures with Dr. Hopkins before she decided to come here. Were trying to schedule a lumbar puncture for her for drainage however unfortunately we are at the mercy of the schedule and the radiologist being here. She has not been having that has not been on her timeframe but we did cosmetic counselor her that we do not have any [...] the treatment plan Documented By: Janina Soria 09/29/24 1132 Signed By: 09/29/24 1736 09/29/24 1202 [facility]05-22-2025 Progress note Author Cindy Winslow [facility] CenterNote Date/TimeMay 2024 9:03[place] [id number] Hospitalist Progress Note Signed Patient: Karolina Nicole MR#: [id number] : 1985 Acct:[id number] Age/Sex: 39 / F Adm Date: 5 Loc: 3T Room: [address] [place] [address] Type: ADM INOo Attending Dr: Cindy Winslow MD Copies to: ~ Date of Service: 09/29/2024 Subjective Subjective Narrative: Patient is a 39-year-old female with history of a idiopathic intracranial hypertension, anxiety complaining of blurry vision and neck stiffness onset 1 month. Patient was found to have papilledema byneuro-revenue cycle administrator in [place], and told to schedule an LP for today and if unable to, to go [facility] ER. She reports light sensitivity, nausea, and [...] taper today. previous lumbar puncture performed at [facility] showedelevated opening pressure, meningitis workup is negative. [...] oriented to place, time and person HEENT: Hazen conjunctiva and NL buccal mucosa Neck: Supple, [...] headache, blurry vision. 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 Patient reported that she was at the [facility] last week. Neurological imaging and workup were completed.Patient was discharged home. Patient was scheduled to have LP with fluid removal at [facility] next Thursday. Subsequently patient was instructed to [...] signed by Cindy Winslow MD> 09/29/24 0903 [facility] Work Phone: 1(475) 314-544305-22-2025 [place] [address] Hospitalist Progress Note Signed Patient: Karolina Nicole MR#: [id number] : 1985 Acct:[id number] Age/Sex: 39 / F Adm Date: 5 Loc: 3T Room: [address] [place] [address] Type: ADM INOo Attending Dr: Cindy Winslow MD Copies to: ~ Date of Service: 09/29/2024 Subjective Subjective Narrative: Patient is a 39-year-old female with history of a idiopathic intracranial hypertension, anxiety complaining of blurry vision and neck stiffness onset 1 month. Patient was found to have papilledema byneuro-revenue cycle administrator in [place], and told to schedule an LP for today and if unable to, to go [facility] ER. She reports light sensitivity, nausea, and [...] taper today. previous lumbar puncture performed at [facility] showedelevated opening pressure, meningitis workup is negative. [...] oriented to place, time and person HEENT: Hazen conjunctiva and NL buccal mucosa Neck: Supple, [...] headache, blurry vision. 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 Patient reported that she was at the [facility] last week. Neurological imaging and workup were completed.Patient was discharged home. Patient was scheduled to have LP with fluid removal at [facility] next Thursday. Subsequently patient was instructed to [...] MD 09/29/24 0856 Signed By: 09/29/24 0903 [facility]05-22-2025 History and physical note Author Sis Verma [facility] CenterNote Date/TimeMay 2024 1:[address] [place] [address] Hospitalist H&P Signed Patient: Karolina Nicole MR#: [id number] : 1985 Acct:[id number] Age/Sex: 39 / F Adm Date: 5 Loc: Room: [address] [place] [address] Type: ADM INOo Attending Dr: Sis Verma DO Copies to: Nestor Langford DO, RES MD Sis Meza DO~ HPI DATE OF EXAMINATION: 09/28/24 CHIEF COMPLAINT: Blurry vision, neck stiffness HISTORY OF PRESENT ILLNESS: Patient is a 39-year-old female with history of a idiopathic intracranial hypertension, anxiety complaining of blurry vision and neck stiffness onset 1 month. Patient was found to have papilledema byneuro-revenue cycle administrator in [place], and told to schedule an LP for today and if unable to, to go [facility]. She reports light sensitivity, nausea, and issues [...] taper today. previous lumbar puncture performed at [facility] showedelevated opening pressure, meningitis workup is negative. In the ED, the patient appeared restless, states that she began having indigestion after receiving morphine, Zofran, Ativan. Review of Systems Review of Systems All other systems reviewed & are negative unless noted below or in HPI [facility] Medical History Mixed hyperlipidemia Metabolic syndrome X [...] 19:55 Lymph % (Auto) N/A 09/28/24 19:55 Camas % (Auto) N/A 09/28/24 19:55 Eos % (Auto) N/A 09/28/24 19:55 Baso % (Auto) N/A 09/28/24 19:55 Nucleat RBC Rel Count N/A 09/28/24 19:55 Neut # (Auto) N/A 09/28/24 19:55 Lymph # (Auto) N/A 09/28/24 19:55 Camas # (Auto) N/A 09/28/24 19:55 Eos # [...] <Electronically signed by DO ANDRES Langford> 09/28/24 4401 [facility] Work Phone: 1(399) 459-654005-22-2025 [place] [address] Hospitalist H&P Signed Patient: Karolina Nicole MR#: [id number] : 1985 Acct:[id number] Age/Sex: 39 / F Adm Date: 5 Loc: Room: [address] [place] [address] Type: ADM INOo Attending Dr: Sis Verma DO Copies to: Nestor Langford DO, RES MD Sis Meza DO~ HPI DATE OF EXAMINATION: 09/28/24 CHIEF COMPLAINT: Blurry vision, neck stiffness HISTORY OF PRESENT ILLNESS: Patient is a 39-year-old female with history of a idiopathic intracranial hypertension, anxiety complaining of blurry vision and neck stiffness onset 1 month. Patient was found to have papilledema byneuro-revenue cycle administrator in [place], and told to schedule an LP for today and if unable to, to go [facility]. She reports light sensitivity, nausea, and issues [...] taper today. previous lumbar puncture performed at [facility] showedelevated opening pressure, meningitis workup is negative. In the ED, the patient appeared restless, states that she began having indigestion after receiving morphine, Zofran, Ativan. Review of Systems Review of Systems All other systems reviewed & are negative unless noted below or in HPI [facility] Medical History Mixed hyperlipidemia Metabolic syndrome X [...] 19:55 Lymph % (Auto) N/A 09/28/24 19:55 Camas % (Auto) N/A 09/28/24 19:55 Eos % (Auto) N/A 09/28/24 19:55 Baso % (Auto) N/A 09/28/24 19:55 Nucleat RBC Rel Count N/A 09/28/24 19:55 Neut # (Auto) N/A 09/28/24 19:55 Lymph # (Auto) N/A 09/28/24 19:55 Camas # (Auto) N/A 09/28/24 19:55 Eos # [...] typically. Interventional radiology has been consulted toperform . I discussed with her acetazolamide that she has been taking 750 twice daily which will be continued at this accelerated dosing Documented By: Sis Verma DO 09/28/24 21 32 Signed By: 09/29/24 0147 09/28/24 2324 [facility]05-21-2025 Evaluation note* Diagnosis Onset Date Resolution Status Admit Date Blurry vision, bilateral acuteMay 2024 9:15pmHistory of renal stoneacuteMay 2024 9:15pm History of stiff neckacuteMay 2024 9:15pmIIH (idiopathic intracranial hypertension)acuteMay 2024 9:15pm [facility] Work Phone: 1(415) 978-305305-21-2025 [facility]Ohio[facility] Instructions* Patient Instructions* Zenaida Landrum DO - 09/26/2024 2:46 PM EDT Diagnosis: [...] to Jun. documented in this encounterMer[facility] History of Present illness Narrative* Angie [...] visit. Either the patient or their legal outside energy sales representatives has been informed of the risks and benefits of -- and alternatives to -- treatment through a remote evaluation andconsents to proceed with the evaluation remotely. Headache and Facial Pain Section [facility] [place] [facility]: Headache follow-up Follow-up Visit Last visit [...] with Dr. Francis and provide follow-up via [facility]. - She was agreeable to a 5-day course of oral Toradol to start over the weekend, 3 times daily, to be taken in conjunction with the current prednisone taper. - Ordered repeat BMP and CBC to be drawn after one week on the current acetazolamide dose to monitor for any metabolic changes. - Follow up 09/26/[address] Landrum Interval History: 3.5 weeks ago she developed [...] changes and she has been working with [facility] to get back on her premarin (could [...] thickness from September employer - comparable to Fe and not worse (September was 91 and 88 and Jun was 86 and 85, typically in IIH that is active would have RNFL thickness increased like in the 200s, while normal is around 97-113) and there was no visual field impairments and the VF testing of the right eye was very similar to [place] on the testing - but ultimately I am not an revenue cycle administrator HEADACHE SCORES: 08/08/2024 08/22/2024 09/23/2024 Headache Questions [...] the right [facility] - but ultimately I am not an revenue cycle administrator and Dr. Sherwood needs to evaluation her. [...] while on diamox), though this is not termite control technician definitive treatment, but she denied at this [...] discussed with Dr. Alvarado, staff Neurologist. Zenaida Landrum DO, PAXTON Headache Medicine Fellow, PGY5 Adult Neurologist/ Board Certified Headache & Facial Pain Section, [facility] [place] Attending Note: I have reviewed the progress note obtained and documented by the fellow, Dr. Landrum . I personally participated as the supervising [...] Alvarado MD documented in this encounterMercy Health [facility]05-19-2025 NoteOhiohealth [facility] Center05-16-2025 Instructions* Patient Instructions* Faith Garcia PA-C - 09/23/2024 1:27 PM EDT Maintain diamox at 750mg twice daily for now Continue prednisone taper 5 day toradol burst sent in to take in tandem with steroid to help calm down headache I will review LP with Dr. Landrum and send you a message with an update documented in this encounterMercy Health [facility]05-16-2025 History of Present illness Narrative* Faith Garcia PA-C - 09/23/2024 1:00 PM EDT Images [...] visit. Either the patient or their legal outside energy sales representatives has been informed of therisks and benefits of -- and alternatives to -- treatment through a remote evaluation and consents to proceed with the evaluation remotely. Accompanied by: Self Primary Problem List: There is no problem list on file for this patient. Chief Complaint: Headaches Impression and Plan from last visit: 08/24/[address] Landrum Impression: As well as multiple other complaints: [...] headaches. She recently failed parafon fortebridge. Dr. Landrum sent in prednisone taper on 09/20/24 and increased her diamox to 750mg BID on 09/21/24. She was seen in the [facility] ED last night into this morning - given IV medications and had CTV. Dr. Sherwood has recommended 1000mg BID of diamox if needed after checking BMP. She has been experiencing a persistent headache for the past three and a half weeks, accompanied byintermittent blurry vision. She has been in contact with her neuro-revenue cycle administrator, Dr. 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 Preventative: diamox 750mg BID [...] discussed these with the patient: yes Faith Garcia PA-C HEADACHE SCORES: 08/08/2024 08/22/2024 09/23/2024 Headache [...] and assume there are 5 lumbar-type vertebrae. Music Orchestrator: PSCGreta Transcribe Date/Time: Jul 03 2024 2:13P Dictated [...] Lymph 1.00 - 4.00 k/uL 1.24 Abs Camas <0.87 k/uL 0.29 Abs Eosin <0.46 k/uL [...] spontaneous and fluent without dysarthria. Short and jail memory, cognition and general fund of knowledgeare [...] [facility] - She was agreeable to a 5-day course of oral Toradol to start over the weekend, 3 times daily, to be taken in conjunction with the current prednisone taper. - Ordered repeat BMP and CBC to be drawn after one week on the current acetazolamide dose to monitor for any metabolic changes. - Follow up 09/26/[address] Landrum Recording using Gritness software for draft documentation of the visit was discussed with the patient/authorized outside energy sales representatives; all questions welcomed and answered. Patient/authorized outside energy sales representatives agreed to proceed HEADACHE MANAGEMENT: (You are [...] relievers while taking. Follow-up: 09/26/[address] Landrum I spent a total of 40 minutes on the date of the service which included preparing to see the patient, [id number] patient care, completing clinical documentation, obtaining and/or reviewing separately obtained history, performing a medically appropriate examination, counseling and educating the pat ient/family/caregiver, ordering medications, tests, or procedures, and communicating with other HCPs (not separately reported). Faith Garcia PA-C Headache Section [facility] September 23, 2024 documented in this encounterMercy Health [facility]05-16-2025 NoteOhio[facility]05-15-2025 NoteOhio[facility]05-14-2025 Telephone encounter Note* Telephone Encounter - Vero Dejesus - 09/21/2024 3:17 PM EDT Patient wants to know if the swelling is back and if she will need a spinal tap and if she does need to see you prior to her 12/05/24 appointment how soon? Patient does not have insurance right now and will need to get financial clearance. She has already spoken to the financial services representative and they are to call her back with a few options. I will try to resend the [employer] images for your review. I can't print those out unfortunately. [facility]05-14-2025 Miscellaneous Notes* Telephone Encounter - Vero Dejesus - 09/21/2024 3:17 PM EDT Patient wants to know if the swelling is back and if she will need a spinal tap and if she does need to see you prior to her 12/05/24 appointment how soon? Patient does not have insurance right now and will need to get financial clearance. She has already spoken to the financial services representative and they are to call her back with a few options. I will try to resend the [employer] images for your review. I can't print those out unfortunately. documented in this encounterMercy Health [facility]05-14-2025 Telephone encounter Note * Telephone Encounter - Vero Dejesus - 09/21/2024 11:48 AM EDT Spoke with patient and she will be sending over the colored images shortly. Will let you know once scanned into Epic. [facility]05-14-2025 Miscellaneous Notes* Telephone Encounter - Vero Dejesus - 09/21/2024 11:48 AM EDT Spoke with patient and she will be sending over the colored images shortly. Will let you know once scanned into Epic. documented in this encounterMercy Health [facility]05-12-2025 Telephone encounter Note * Telephone Encounter - Oly Lynn RN - 09/19/2024 5:03 PM EDT Reason: Headache x 2 weeks. History of Idiopathetic Intracranial Hypertension. Patient states unable to see neurologist due to insurance issue. Current treatment regimen not giving her any relief. Outcome: ED now recommendation. Care advice given. Patient states she will be seen at [facility] ED.Blurry vision. Reason for Disposition [1] SEVERE headache (e.g., excruciating) AND [2] worst headache of life Protocols used: [id number] [facility]05-12-2025 Miscellaneous Notes* Telephone Encounter - Oly Lynn RN - 09/19/2024 5:03 PM EDT Reason: Headache x 2 weeks. History of Idiopathetic Intracranial Hypertension. Patient states unable to see neurologist due to insurance issue. Current treatment regimen not giving her any relief. Outcome: ED now recommendation. Care advice given. Patient states she will be seen at [facility] ED.Blurry vision. Reason for Disposition [1] SEVERE headache (e.g., excruciating) AND [2] worst headache of life Protocols used: Nxclvgxl-LZRPL-FC documented in this encounterMercy Health [facility]05-06-2025 Note* Addendum Note - Andrea Suazo DO - 09/13/2024 7:55 AM EDTAddended by: ANDREA SUAZO on: 09/13/2024 07:55 AM Modules accepted: Orders [place] [address]-06-2025 Miscellaneous Notes* Addendum Note - Andrea Suazo DO - 09/13/2024 7:55 AM EDTAddended by: ANDREA SUAZO on: 09/13/2024 07:55 AM Modules accepted: Orders documented in this encounterMercy Health [facility]04-16-2025 Instructions* Patient Instructions* Zenaida Landrum DO - 08/24/2024 10:06 AM EDT Karolina Nicole, [...] 4-6 months documented in this encounterMercy Health – The [facility]04-16-2025 History of Present illness Narrative* Zenaida Landrum DO - 08/24/2024 8:30 AM EDT Images [...] visit. Either the patient or their legal outside energy sales representatives has been informed of the risks and benefits of -- and alternatives to -- treatment through a remote evaluation andconsents to proceed with the evaluation remotely. Headache [facility] Facial Pain [facility] [place] CC: Headache follow-up Follow-up Visit Last visit: [...] going neck pain 07/22/[address] Stuart Carter+P Pt is 38 year old female with [...] dose. She has felt better since eating sack cleaner, and losing weight (was 198 (October [...] condition disease. She is going back to [employer] for her work instead of working nights. [...] Sleep Aids diamox Discussed with Dr. Ananya Landrum DO, PAXTON Headache Medicine Fellow, PGY5 Adult Neurologist/ Board Certified Headache & Facial Pain Section, [facility] [place] Ratna Hare MD Staff documented in this encounterMercy Health – The Jewish Hospital04-16-2025 NoteOhiohealth Grant Medical Center03-28-2025 Note* Addendum Note - Lisandro Gonsalez MD - 08/05/2024 8:52 AM EDTAddended by: LISANDRO GONSALEZ on: 08/05/2024 08:52 AM Modules accepted: Orders [facility]03-28-2025 Miscellaneous Notes* Addendum Note - Lisandro Gonsalez MD - 08/05/2024 8:52 AM EDTAddended by: LISANDRO GONSALEZ on: 08/05/2024 08:52 AM Modules accepted: Orders documented in this encounterMercy Health – [facility]03-27-2025 History of Present illness Narrative* Lisandro Gonsalez MD - 08/04/2024 2:00 PM EDT Reason for Evaluation: Consultation requested by Cassandra Orozco for an opinion regarding New consult Paresthesia of bilateral legs Anterior thigh numbness My final recommendations will be communicated back to the requesting physician by way of shared medical record or letter to requesting physician via US mail. This is Ms. Karolina Nicole, a 39 year old female who [facility] multiple complaints including imbalance, [...] Gonsalez MD Staff, Neuromuscular Center [facility] [place] HPI: This is Ms. Karolina Nicole, a 39 year old female who [facility] multiple complaints including imbalance, [...] of both thighs Rhomberg negative. Coordination: Intact wwetrt-ns-igbg-finger bilaterally. Intact bfqz-sp-louz bilaterally. Gait: Stands with arms crossed. Ambulates [...] the patient. documented in this encounterMercy Health – The [facility] Hospital03-27-2025 NoteOhiohealth Grant Medical Center03-14-2025 NoteOhiohealth [facility] Center03-14-2025 History of Present illness Narrative* Rafy Goldberg MD - 07/22/2024 4:59 PM EDT HEADACHE MEDICINE ESTABLISHED VISIT July 22, 2024 5:00 PM VIDEO VISIT I have communicated my name and active licensure. The patient's identity and physical location wereverified at the time of this visit. Either the patient or their legal outside energy sales representatives has been informed of the risks and [...] have no way of knowing if their manager quality compliance is up to accepted standards. I referred [...] she hasnot had significant KHAN's since the fon [employer]. She reports that she has lost [...] which included preparing to see the patient, abvj-ty-mafe patient care, completing clinical documentation, performing a medically appropriate examination, counseling and educating the patient/family/caregiver, and ordering medications, tests,or procedures. Rafy Goldberg MD July 22, 2024 8:15 PM documented in this encounterMercy Health – The [facility]03-10-2025 Telephone encounter Note * Telephone Encounter - Glo Frances LPN - 07/18/2024 9:02 AM EDT Called spoke with patient, provider's message below given. Patient stated she currently is see Neurology at [facility] Dr. Rafy Goldberg. Upcoming appt noted on 07/22/24. [facility]03-10-2025 Miscellaneous Notes* Telephone Encounter - Glo Frances LPN - 07/18/2024 9:02 AM EDT Called spoke with patient, provider's message below given. Patient stated she currently is see Neurology at [facility] Dr. Rafy Goldberg. Upcoming appt noted on 07/22/24. * Telephone Encounter - Cassandra Orozco APRN.CNP - 07/18/2024 8:27 AM EDT EMG reports received. Recommend consult to neurology. Please help patient schedule Cassandra Orozco APRN.CNP * Telephone Encounter - Glo Frances LPN - 07/18/2024 7:01 AM EDT Copy of the report given to provider to review. * Telephone Encounter - Jeanne Romero - 07/15/2024 9:20 AM EST Karolina is calling Cassandra Orozco APRN.CNP today with concern regarding EMG. Her chiropractor is sending everything over this morning. Please review. Patient has been identified by name and birthdate. Person calling: self Call patient at: on cell [phone] (home) [phone] (cell) Was an appointment scheduled: No Closing statement: Results or non-symptom based questions: Thank you for calling [facility], your call will be returned within the next business day. Jeanne Romero documented in this encounterMercy Health – The Jewish Hospital03-10-2025 Telephone encounter Note * Telephone Encounter - Cassandra Orozco APRN.CNP - 07/18/2024 8:27 AM EDT EMG reports received. Recommend consult to neurology. Please help patient schedule Cassandra Orozco APRN.CNP [facility]03-10-2025 Telephone encounter Note* Telephone Encounter - Glo Frances LPN - 07/18/2024 7:01 AM EDT Copy of the report given to provider to review. [facility]03-07-2025 Telephone encounter Note* Telephone Encounter - Jeanne Romero - 07/15/2024 9:20 AM EST Karolina is calling Cassandra Orozco APRN.CNP today with concern regarding EMG. Her chiropractor is sending everything over this morning. Please review. Patient has been identified by name and birthdate. Person calling: self Call patient at: on cell [phone] (home) [phone] (cell) Was an appointment scheduled: No Closing statement: Results or non-symptom based questions: Thank you for calling [facility], your call will be returned within the next business day. Jeanne Romero [facility]03-03-2025 Instructions* Patient Instructions* Cassandra Orozco APRN.CNP - 07/11/2024 9:55 AM EST We will obtain EMG report from [facility] You may benefit from evaluation by [...] emergency treatment. documented in this encounterMercy Health – The [facility]03-03-2025 NoteOhiohealth Grant Medical Center03-03-2025 History of Present illness Narrative* Cassandra Orozco APRN.CNP - 07/11/2024 9:31 AM EST Pain Management [...] visit. Either the patient or their legal outside energy sales representatives has been informed of the risks and [...] She reports this testing was done at [facility] in [place] by Dr. Perry. We will request copies of these reports. She denies any red flag symptoms including weight loss, fevers, chills, night time awakening of pain, bowel bladder incontinence, saddle anesthesia, progressive numbness or weakness. We discussed that if these symptoms should arise she should seek emergency treatment. In the past she was trial on Lyrica with Dr. Pitts but felt his made her symptoms worse and she discontinued this. She has undergone PT on 05/16/2024, 05/20/2024, 06/01/2024 and she has undergone wound care coordinator on 05/13/2024, 05/16/2024, 05/20/2024, 05/26/2024, 06/01/2024, 06/08/2024, 06/13/2024. She has continued to take Naprosyn as needed for pain I spent a total of 30 minutes on the date of the service which included preparing to see the patient, oqsv-ay-ifru patient care, completing clinical documentation, obtaining and/or reviewing separately obtained history, performing a medically appropriate examination, counseling and educating the pat ient/family/caregiver, and ordering medications, tests, or procedures. Anterior thigh numbness (primary encounter diagnosis) Chronic pain syndrome PLAN: 1) Obtain EMG from [facility] 2) Patient may benefit from evaluation by Neuromuscular team given her continued anterior thigh paresthesias 3) We reviewed red flag symptoms to watch for 4) Will follow up with patient with further recommendations once EMG are received and reviewed The above plan and management options were discussed at length with patient. Patient is in agreement with the above and verbalized understanding. Cassandra Orozco APRN.CNP July 11, 2024 documented in this encounterMercy Health – The Jewish Hospital02-23-2025 NoteHNO ID: [id number] Author: ABDULLAHI NUNEZ RT(R) Service: Radiology Author [...] PATIENT PRESENTS WITH AN IMPLANTABLE OR ATTACHED LEAD SHOP OPERATOR: No RADIOLOGY DEPARTMENT: MR; Exam(s) Completed: Head: Routine Brain Sagittal Sinus MRV Spine: Cervical spine and Lumbar spine PERIPHERAL IV DATA: Site assessment: Clean,Dry and Intact, Site disposition Discontinued SIGNED BY: RT Martin(R) July 03, 2024 11:48 [facility]02-21-2025 NoteOhiohealth Grant Medical Center02-21-2025 History of Present illness Narrative* Hank Urbina MD - 07/01/2024 4:09 PM EST Images from the original note were not included. [facility] UROLOGICAL [place] NEW PATIENT HISTORY AND PHYSICAL EXAM PATIENT [...] signs and symptoms: pain Consultation requested by Advanced Practice Psychiatric Nurse Role and Specialty Contact Info Address Start End Comments Yaon Ivey MD General (Family Medicine) [address] [address] 06/06/2024 - - for an opinion regarding [...] physician visualization of radiology, and labs Specific [place], Ur Date Value Ref Range Status 09/29/2023 [...] on 06-10-2023 CT abdomen pelvis wo con [facility] [address] [place] [address] CT Scan Report Signed Patient: Karolina Nicole MR#: [id number] : 1985 Acct:[id number] Age/Sex: 37 / F ADM Date: 06/09/23 Loc: ER Room: Type: [facility] ER Attending Dr: Copies to: Kat Cristina DO Ordering Provider: Kat Cristina DO Date of Service: 06/09/23 CT/CT [...] flank pain. I place consult to Dr. Blanca Harmon. The pt. understands that I do not provide tests results over the phone unless there is an emergencyand eventually agrees to return to clinic to discuss tests results. ASSESSMENT/PLAN: 1. Kidney stone - ICD9: 592.0, ICD10: N20.0 2. IIH (idiopathic intracranial hypertension) - ICD9: 348.2, ICD10: G93.2 Hank Urbina MD Medical Decision Making: Problems: Moderate: 1+ chronic illnesses with change Data: Unique test result(s) reviewed: 3+ Assessment requiring an independent historian(s) Risk: Low: Low risk from testing/treatment Medical Decision Making Level: 4 - Moderate Hank Urbina MD, PhD [facility] [place] [facility] [id number] July 01, 2024 4:09 PM CC: REFERRING PROVIDER: Angie Alvarado MD PRIMARY CARE PHYSICIAN: Yoan Ivey MD documented in this encounterMercy Health – The Jewish Hospital02-04-2025 Telephone encounter Note * Telephone Encounter - Janina Ojeda RN - 06/14/2024 5:09 PM EST Reason for Call: Seen in ED on for Kidney stones in non [facility] ED. Patient states pain is worsening since ED visit Outcome: Home care recommendation given. Care advice reviewed and voiced understanding. Advised to call back and update PCP when office open or send a [employer] message with update. Reason for Disposition Recently diagnosed with a kidney stone attack (renal colic) [1] Kidney stone diagnosed by doctor (or SPARE PERSON/PA) AND [2] normal symptoms (e.g., nausea, pain) AND [3] no complications Answer Assessment - Initial Assessment Questions 1. MAIN CONCERN OR SYMPTOM: Worsening pain 2. ONSET: Discomfort in upper abdomen started 2-3 weeks ago. Had worsening fatigue since then too. Went to the ED on due to worsening pain. Patient states pain is worse since ED visit. Thursday pain started worsening 3. TBHZYC-ONDM-MNTHA: slightly worse 4. VISIT DATE: 06/09/2024 5. [...] is causing kidney stones Protocols used: Flank Qmin-VDYBU-XQ, Kidney Stone Follow-up Argc-OWAPZ-ZA [facility]02-04-2025 Miscellaneous Notes* Telephone Encounter - Janina Ojeda RN - 06/14/2024 5:09 PM EST Reason for Call: Seen in ED on for Kidney stones in non [facility] ED. Patient states pain is worsening since ED visit Outcome: Home care recommendation given. Care advice reviewed and voiced understanding. Advised to call back and update PCP when office open or send a [employer] message with update. Reason for Disposition Recently diagnosed with a kidney stone attack (renal colic) [1] Kidney stone diagnosed by doctor (or SPARE PERSON/PA) AND [2] normal symptoms (e.g., nausea, pain) AND [3] no complications Answer Assessment - Initial Assessment Questions 1. MAIN CONCERN OR SYMPTOM: Worsening pain 2. ONSET: Discomfort in upper abdomen started 2-3 weeks ago. Had worsening fatigue since then too. Went to the ED on due to worsening pain. Patient states pain is worse since ED visit. Thursday pain started worsening 3. NVNEMB-IMXT-JRLEQ: slightly worse 4. VISIT DATE: 06/09/2024 5. VISIT DOCTOR: Bilateral stones seen on CT in kidneys 6. VISIT DIAGNOSIS: Side and back name. Bilateral kidney stones and fatty liver disease 7. TREATMENT: Left before discharge. Just advised to follow up with primary 8. NEXT APPOINTMENT: Scheduled with Urology on 07/01. Scheduled with Primary care tomorrow at 4pm. 9. PAIN: Rates pain at 10/18. Pain is 7.5 when laying on side [...] is causing kidney stones Protocols used: Flank Arnb-OVEVB-XA, Kidney Stone Follow-up Mxdf-GOQCS-GE documented in this encounterMercy Health – The Jewish Hospital02-04-2025 NoteOhiohealth Grant Medical Center02-04-2025 History of Present illness Narrative* Cassandra Orozco APRN.OPEN CLAIMS REPRESENTATIVE - 06/14/2024 2:57 PM EST Ms. Nicole [...] supervised home exercise program (HEP): No 5. Flume Ride Operator: No Passive conservative therapy lasting 6 weeks in the last six months (see below) 1. Medical devises: No 2. Acupuncture: No 3. Tens unit: No 4. Prescription pain medication: No 5. NSAIDS: No TREATMENTS: Flume Ride Operator Naproxen 500 mg BID Zanaflex 4 mg [...] setting of chronic neck, and lowerback pain, [facility]. She recently established care with Dr. Cartagena [...] associated numbnessand tingling. She has been going [facility] in [place] Dr. Perry once a week since May. [...] 05/16/2024, 05/20/2024, 06/01/2024 and she has undergone wound care coordinator on 05/13/2024, 05/16/2024, 05/20/2024, 05/26/2024, 06/01/2024, 06/08/2024, 06/13/2024. She has continued to take Naprosyn as needed for pain I spent a total of 30 minutes on the date of the service which included preparing to see the patient, oqrm-se-emae patient care, completing clinical documentation, obtaining and/or [...] of Voltaren gel RTC following MRI Cassandra Orozco APRN.OPEN CLAIMS REPRESENTATIVE June 15, 2024 documented in this encounterMercy Health – The [facility]02-04-2025 NoteDate of Procedure 06/14/2024. Procedures Nurse Information Zipper Cutter: Start time: 8:58 AM. Stop time: 9:14 AM. Allergies to adhesive bandages. Reliability Right Eye Good. Left Eye Good. 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 Interval Change Right Eye Initial. Left Eye Initial.[id number] NoteDate of Procedure 06/14/2024. Procedures Nurse Information Zipper Cutter: Jazmine Hlyton Start time: 9:45 AM. Stop time: 10:00 AM. Interval Change Right Eye Stable. Left Eye Stable. Notes OCT: normal average pRNFL thickness OU; normal average GCL +IPL thickness OU [id number] NoteOhiohealth Grant Medical Center02-04-2025 History of Present illness Narrative* Lloyd Sherwood [...] patient. She then established with neurology at [facility] in September of 2023 and was put [...] the day of service that includes both jjjn-zi-eqwp and fwm-mrev-qq-face time. This time was separate from any [...] voiced understanding. documented in this encounterMercy Health – The Jewish Hospital02-04-2025 NoteDate of Procedure 06/14/2024. Procedures Nurse Information DINA Ulloa ROUB 10:39 AM 06/14/2024 [...] EST Pt has appt today. [facility]02-04-2025 Miscellaneous Notes* Telephone Encounter - Neva Benavides LPN - 06/14/2024 8:59 AM EST Pt has appt today. * Telephone Encounter - Glo Frances LPN - 06/13/2024 3:52 PM EST Called spoke with patient, explained she needs a follow up after her PT is completed. Patient requesting to be called tomorrow if Cassandra Orozco CNP has any cancellations anytime noon or after. documented in this encounterMercy Health – The Jewish Hospital02-03-2025 Telephone encounter Note * Telephone Encounter - Glo Frances LPN - 06/13/2024 3:52 PM EST Called spoke with patient, explained she needs a follow up after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 Rheumatology Outpatient Clinic Date of Service: 09/29/2023 Patient: Karolina Nicole Medical Record: [id number] Primary Care Physician: No primary care provider on file. Referring Provider: SELF Last [facility] visit: [facility] Chief complaint: New Patient (Joint swelling, [...] which included preparing to see the patient, rylh-vm-nsqu patient care, completing clinical documentation, obtaining and/or reviewing separately obtained history, performing a medically appropriate examination, counseling and educating the pat ient/family/caregiver, and ordering medications, tests, or procedures. This note was partially generated with the assistance of Equipboard voice recognition software. An attempt was made to correct any dictation errors however there may be some incorrect words, spellings, and punctuation. Alem Stovall MD, [facility] Rheumatology documented in this encounterMercy Health – The Jewish Hospital04-16-2024 Miscellaneous Notes* Telephone Encounter - Charlotte Carpenter RN - 08/25/2023 8:02 AM EDT Reason for call: multiple symptoms; new symptom is neck swelling Outcome: patient will call her PCP locally for an appointment today. In addition, she would like tosee a account development representative at [facility]. Conferenced to the Appointment Center for [...] areas, fevers. Protocols used: Lymph Nodes - [id number] documented in this encounterMercy Health – The Jewish Hospital02-29-2024 Hospital Discharge instructions* Discharge Instructions* Chance [...] Everywhere. * Managing acute pain at home (Greek) documented in this encounterTHE Doodle SYSTEM Work Phone: [phone]) 584-126702-29-2024 NotePhysician Triage Note The patient was seen [...] role in this case. PLEASE SEE OTHER ATTENDING/RESIDENT/PHYSICIAN/OPEN CLAIMS REPRESENTATIVE/PA NOTATION Laila Penny, AMISHA-VA[facility]NAVILake [facility] Evaluation note* Encounter Date Diagnosis Assessment Notes [...] breathing and swallowing, chest tightness, or chest pain.Pt is to f/u immediately in ER if these sx present. Pt is to call the office with any questions or concerns regarding dx and tx. Pt understood and agreed to tx plan. [facility] Other 08-04-2023 Evaluation note* Encounter Date Diagnosis Assessment Notes Treatment Notes Treatment Clinical Notes Dec, Abnormality of left breast on sc reening mammogram (ICD-10 - R92.8) [facility] Other 07-20-2023 Evaluation note* Encounter Date Diagnosis Assessment Notes Treatment Notes Treatment Clinical Notes Nov, High C-reactive protein (ICD-10 - R79.82) Nov,High serum sodium (ICD-10 - R79.89) Nov,olyarthralgia (ICD-10 - M25.50) [facility] Other 05-02-2023 Evaluation note* Encounter Date Diagnosis Assessment Notes Treatment Notes Treatment Clinical Notes September, Mild intermittent asthma without complication (ICD-10 - J45.20) [facility] Other 03-29-2023 Evaluation note* Encounter Date Diagnosis Assessment Notes Treatment Notes Treatment Clinical Notes Jul, Acute cystitis with hematuria (I CD-10 - N30.01) No UTI symptoms. Feels completely [...] should she change her mind with this. Jul,Electrocardiogram showing T wave abnormalities (ICD-10 - R94.31) She will continue to follow with cardiology. Specialty notes reviewed as received. [facility] Other 03-10-2023 Evaluation note* Encounter Date Diagnosis Assessment Notes Treatment Notes Treatment Clinical Notes Jul, Dysuria (ICD-10 - R30.0) [facility] Other 03-10-2023 History of Present illness Narrative* Derrell Phipps MD - 07/18/2022 11:01 AM EST Images from the original note were not included. [facility] [place] [facility] Department of Cardiovascular Medicine SECTION [...] to the ED. They ruled out an MD and they discharged her home. Sheunderwent a [...] results of the EKG stress test from [facility] - spoke about all the stress [...] Derrell Phipps MD Cardiovascular Medicine Staff [facility] [id number] [place] [address]. [place] [address] documented in this encounterMercy Health – The [facility] Hospital03-09-2023 Evaluation note* Encounter Date Diagnosis Assessment Notes Treatment Notes Treatment Clinical Notes Jul, Mixed hyperlipidemia (ICD-10 - E 78.2) Jul,Obesity (BMI 30.0-34.9) (ICD-10 - E66.9) Jul,Impaired fasting glucose (ICD-10 - R73.01) Jul,Fatty liver (ICD-10 - K76.0) Jul,sthma (ICD-10 - J45.909) Jul,nxiety (ICD-10 - F41.9) Jul,DHD (ICD-10 - F90.9) Jul,Low back pain (ICD-10 - M54.5) Jul,Metabolic syndrome X (ICD-10 - E88.81) [facility] Other 02-28-2023 Evaluation note* Encounter Date Diagnosis Assessment Notes Treatment Notes Treatment Clinical Notes Jun, Acute cystitis with hematuria (I CD-10 - N30.01) Buffer Other 02-27-2023 Evaluation note* Encounter Date Diagnosis Assessment Notes Treatment Notes Treatment Clinical Notes Jun, Dysuria (ICD-10 - R30.0) Buffer Other 02-20-2023 Evaluation note* Encounter Date Diagnosis Assessment Notes Treatment Notes Treatment Clinical Notes Jun, Nonspecific ST-T wav e electrocardiographic changes (ICD-10 - R94.31) Buffer Other 02-16-2023 Evaluation note* Encounter Date Diagnosis Assessment Notes Treatment Notes Treatment Clinical Notes Jun, Chest pain, unspecified type (IC D-10 - R07.9) Patient presents today for an urgent visit with our office. She presents with severe chest pain forthe last hour-hour and a half. Radiates into left neck and down left arm. Arm feels tight like a squeezing. These episodes have been coming and going for awhile. EKG in the office does show ST-T wavechanges possibly due to myocardial ischemia. She has a past history of IV drug addiction but has bee n clean for 5 years. Due to EKG changes and patient chest pain, she is referred to the ER. She declines squad and called a friend to take her right over. She is put in a wheelchair and wheeled out toher friend's vehicle. She will take her immediately to the ER. Copies of EKGs done in the office are sent with her today. Report called to [facility] [place] Curt Novoa. Will have patient follow back in the office after ER/hospital visit. Jun,ST segment changes on electrocardiogram (ICD-10 - R94.31) See above treatment plan. Buffer Other 01-30-2023 Evaluation note* Encounter Date Diagnosis Assessment Notes Treatment Notes Treatment Clinical Notes May, Breast pain, left (ICD-10 - N64. 4) Bilateral breast exam normal. She has been having intermittent shooting pains to her left breast that come and go. No other associated symptoms. No chest pain. No shortness of breath. Will obtain diagnostic mammogram with US to further evaluate. Further treatment pending results of testing. Buffer Other 01-09-2023 Evaluation note* Encounter Date Diagnosis Assessment Notes Treatment Notes Treatment Clinical Notes May, Mixed hyperlipidemia (ICD-10 - E 78.2) May,Obesity (BMI 30.0-34.9) (ICD-10 - E66.9) May,Impaired fasting glucose (ICD-10 - R73.01) May,Fatty liver (ICD-10 - K76.0) May,sthma (ICD-10 - J45.909) May,nxiety (ICD-10 - F41.9) May,DHD (ICD-10 - F90.9) May,Low back pain (ICD-10 - M54.5) May,Metabolic syndrome X (ICD-10 - E88.81) Buffer Other 12-19-2022 Evaluation note* Encounter Date Diagnosis Assessment Notes Treatment Notes Treatment Clinical Notes Apr, Sore throat (ICD-10 - J02.9) Strep throat negative. Influenza A/B negative, COVID negative. See above treatment plan. Apr,Viral illness (ICD-10 - B34.9) Strep throat negative. Influenza A/B negative, COVID negative. Discussed diagnosis with patient. Discussed with patient that symptoms are most likely viral at this time. No ATB needed at this time. OTC Ibuprofen/Tylenol PRN fever or general discomfort. OTC sore throat sprays or throat lozenges PRN.Notify office should symptoms persist and not improve. Discussed warning s/s with patient. If patient experiences any warning s/s, patient is immediately to go to the ER. Patient verbalizes understanding and agrees to treatment plan. Buffer Other 12-14-2022 Evaluation note* Encounter Date Diagnosis [...] verbalizes understanding and agrees to treatment plan. Buffer Other 12-05-2022 Evaluation note* Encounter Date Diagnosis Assessment Notes Treatment Notes Treatment Clinical Notes Apr, Mild intermittent asthma without complication (ICD-10 - J45.20) Buffer Other 11-29-2022 Evaluation note* Encounter Date Diagnosis Assessment Notes Treatment Notes Treatment Clinical Notes Mar, Mild intermittent asthma without complication (ICD-10 - J45.20) Buffer Other 11-02-2022 Evaluation note* Encounter Date Diagnosis Assessment Notes Treatment Notes Treatment Clinical Notes Mar, Anxiety (ICD-10 - F41.9) Buffer Other 10-06-2022 Evaluation note* Encounter Date Diagnosis Assessment Notes Treatment Notes Treatment Clinical Notes Feb, Strep throat (ICD-10 - J02.0) Strep test positive. Take rx-Augmentin (treat her OM and strep throat both) as directed with food. Finish entire course of ATB. Continue symptomatic tx with OTC meds prn. Push fluids/rest. Reinforcedgood hand hygiene for infection control. New toothbrush or wash toothbrush in air brush artist. Immediateeval if warning s/s. Warning s/s discussed with patient. Notify office if symptoms persist and do not improve. Pt verbalizes understanding and agrees with tx plan. Feb,cute otitis media, unspecified otitis media type (ICD-10 - H66.90) Discussed diagnosis with patient. Take ATB as directed with food. Complete full course of ATB, evenif asymptomatic. OTC decongestants, throat lozenges/sprays, antipyretics prn. Push rest/fluids. Reinforced good hand hygiene for infection control. Notify office should symptoms not improve or persist. Immediate eval in ER if warning s/s. Pt agrees with plan of care and verbalizes understanding of teaching points and instructions. Feb,ore throat (ICD-10 - J02.9) Strep test positive. See above treatment plan. Buffer Other 09-08-2022 Evaluation note* Encounter Date Diagnosis Assessment Notes Treatment Notes Treatment Clinical Notes Jan, Intracranial hypotension (ICD-10 - G96.810) Recent MRI done by [facility] shows intracranial hypotension. Symptoms seem to have [...] verbalizes understanding and agrees to treatment plan. Buffer Other 08-24-2022 Evaluation note* Encounter Date Diagnosis Assessment Notes Treatment Notes Treatment Clinical Notes Dec, Mixed hyperlipidemia (ICD-10 - E 78.2) Dec,besity (BMI 30.0-34.9) (ICD-10 - E66.9) Dec,Impaired fasting glucose (ICD-10 - R73.01) Dec,Fatty liver (ICD-10 - K76.0) Dec,sthma (ICD-10 - J45.909) Dec,nxiety (ICD-10 - F41.9) Dec,DHD (ICD-10 - F90.9) Dec,Low back pain (ICD-10 - M54.5) Dec,Metabolic syndrome X (ICD-10 - E88.81) Buffer Other 07-14-2022 Evaluation note* Encounter Date Diagnosis Assessment Notes Treatment Notes Treatment Clinical Notes Nov, Anxiety (ICD-10 - F41.9) Buffer Other 07-12-2022 Evaluation note* Encounter Date Diagnosis Assessment Notes Treatment Notes Treatment Clinical Notes Nov, Bronchitis (ICD-10 - J40) 36 y.o. female seen today for > 4 weeks sympotms of productive cough, chest tightness, and sore throat. Pt has hx of asthma and significant allergies that she is managed well with medications. D/Ther history and lingering symptoms of productive cough with mild rhonchi, SOB will start Zithromycin 250mg orally for 5 days with two tabs the first day, along with prednisone pack of 10mg orally 6 tabs day 1, 5 tabs day 2, 4 tabs day 3, 3 tabs day 4, 2 tabs day 5, and 1 tab day 6. Start Mucinex [id number] orally BID for productive cough. Advised to use albuterol inhaler as needed for SOB and she states she has one. Advised to continue Montelukast Sodium and Cetirizine. Advised to increase hydration while taking these medications and to complete them. She acknowledges understanding and agrees to treatment. Buffer Other 07-06-2022 Evaluation note* Encounter Date Diagnosis Assessment Notes Treatment Notes Treatment Clinical Notes Nov, Mixed hyperlipidemia (ICD-10 - E 78.2) Nov,besity (BMI 30.0-34.9) (ICD-10 - E66.9) Nov,Impaired fasting glucose (ICD-10 - R73.01) Nov,Fatty liver (ICD-10 - K76.0) Nov,sthma (ICD-10 - J45.909) Nov,2Anxiety (ICD-10 - F41.9) Nov,2ADHD (ICD-10 - F90.9) Nov,Low back pain (ICD-10 - M54.5) Nov,Metabolic syndrome X (ICD-10 - E88.81) Buffer Other 05-26-2022 Evaluation note* Encounter Date Diagnosis Assessment Notes Treatment Notes Treatment Clinical Notes September, Obesity, unspecified classification, unspecified obesity type, unspecified whether serious comorbidity present (ICD-10 - E66.9) September,MI 34.0-34.9,adult (ICD-10 - Z68.34) September,therSummary of Visit: (A) Presentation of Plate Method discussed (B) Sample meal ideas reviewed (C) exercise recommendations reviewed Patient set the following goals: - patient set personal goal using given handout. Buffer Other 05-05-2022 Evaluation note* Encounter Date Diagnosis Assessment Notes Treatment Notes Treatment Clinical Notes September, Abnormal weight gain (ICD-10 - R 63.5) September,Mixed hyperlipidemia (ICD-10 - E78.2) September,Impaired fasting glucose (ICD-10 - R73.01) September,Fatty liver (ICD-10 - K76.0) September,sthma (ICD-10 - J45.909) September,2Anxiety (ICD-10 - F41.9) September,2ADHD (ICD-10 - F90.9) September,Low back pain (ICD-10 - M54.5) September,Metabolic syndrome X (ICD-10 - E88.81) September,besity (BMI 30.0-34.9) (ICD-10 - E66.9) Buffer Other 04-14-2022 Evaluation note* Encounter Date Diagnosis Assessment Notes Treatment Notes Treatment Clinical Notes Aug, Elevated fasting blood sugar (IC D-10 - R73.01) Hgba1c in the office today is normal. This was discussed with her while she was in the office today. Buffer Other 04-13-2022 Evaluation note* Encounter Date Diagnosis Assessment Notes Treatment Notes Treatment Clinical Notes Aug, Mixed hyperlipidemia (ICD-10 - E 78.2) Routine lab work ordered today. Controls with diet and exercise. Patient is advised to work on healthy diet choices and appropriate servings, weight control, regular exercise as directed, reduced fatintake, and salt avoidance. Patient voiced understanding of this and agrees to this plan. Aug,Well adult exam (ICD-10 - Z00.00) Overall, doing very well. Routine lab work ordered. Follow with eye doctor and dentist. Patient is advised to work on healthy diet choices and appropriate servings, weight control, regular exercise as directed, reduced fat intake, and salt avoidance. Patient voiced understanding of this and agrees to this plan. Aug,Mild intermittent asthma without complication (ICD-10 - J45.20) Stable right now with Singulair 10 mg daily and Zyrtec 10 mg daily along with PRN Albuterol inhaler. Will continue this. Refill sent today. Aug,besity (BMI 30.0-34.9) (ICD-10 - E66.9) Referral to weight management sent today. Patient is advised to work on healthy diet choices and appropriate servings, weight control, regular exercise as directed, reduced fat intake, and salt avoidance. Patient voiced understanding of this and agrees to this plan. Aug,History of intravenous drug use in remission (ICD-10 - Z87.898) She has a history of IV drug abuse. She has been clean for 5 years. She is to have NO addictive medications prescribed to her. Buffer Other [facility] Winslow [facility] Date/TimeMay 2024 10:[address] [address] Discharge Summary Signed Patient: Karolina Nicole MR#: [id number] : 1985 Acct:[id number] Age/Sex: 39 / F Adm Date: 5 Loc: 3T Room: 8S9603-[address]: Cindy Winslow MD Copies to: [...] pressure. Patient has been following up with [facility] up until last week when she was evaluatedthe ER and recommended to have an outpatient lumbar puncture and fluid removal. Subsequently patient developed worsening headaches, blurry vision and increased papilledema. She was instructed to report to the emergency room. She decided to come to [facility] emergency room due to previous satisfactory experience at [facility]. Patient was placed in observation. Blood work is unremarkable. No fever or chills. Patient responded to intravenous Toradol and Dilaudid. Patient had LP with fluid analysis and fluid removal. Pending final report frominterventional radiologist. Cell count and cultures are not back yet. Patient is requesting to be discharged home so she can attend her children graduation green party. She isnot willing to stay any longer for any additional testing. Patient is feeling great. Patient will be instructed to resume taking Diamox as recommended by [facility] providers?follow-up with the [facility] intracranial hypertension clinic. Patient stated that her [facility] specialist instructed her to take Diamox 750 mg twice a day. No chills, no change in mental status, no no rigidity. No leukocytosis, no fever. Patient has few complex medical issues as listed above and others that are not listed. Patient is adamant about going home today so she can attend a graduation green party. She is not willing to stay any longer for any additional monitoring, diagnostic or therapeutic intervention. Her [facility] cell count and culture and pending however at this time, I do not have any legal justification to extend inpatient hospitalization against her will and desire to be dischargedhome. Patient however will require closeand frequent monitoring as well as additional work-up, investigation and therapeutic intervention that could take place from this point on post discharge. That is to prevent relapse, decompensation, r ehospitalization and other medical implications. I instructed patient to ask her primary care doctor to obtain [facility] record entirely to address abnormalities seen on labs and imagingthat I have and have not addressed during this hospitalization, follow- up on pending blood work, imaging and pathology [...] ask your primary care provider to obtain [facility] records entirely to follow up on all of the abnormal physical, laboratory, and imaging findings thatI have not addressed. Please follow-up with your [facility] providers. Please ask the [facility] to obtain [facility] pending [facility] analysis and follow the recommendations for any additional needed investigation or treatment. Please return back to the emergency room or seek medical attention if your symptoms worsen or return. Discharging you from [facility] does not mean that your medical care [...] (The office is closed. Please call Thursday morning to schedule a hospital follow up appointment) [...] oriented to place, time and person HEENT: Hazen conjunctiva and NL buccal mucosa Neck: Supple, [...] Appearance Clear, Urine pH 5.0, Ur Specific Gravity1.003, Urine Protein Negative, Urine Glucose (UA) Normal, Urine Ketones Negative, Urine Occult Blood Trace H, Urine Nitrite Negative, Urine Bilirubin Negative, Urine Urobilinogen Normal, Ur LeukocyteEsterase Negative, Urine RBC 1-2, Urine WBC 1-2, [...] signed by Cindy Winslow MD> 09/30/24 1031 [facility] Work Phone: Evaluation noteNo [employer] Other Evaluation noteNo assessment information available [facility] Work Phone: Evaluation note* Diagnosis Atypical chest pain- Primary Other chest pain [facility] Diagnosis Onset Date Resolution Status Fever acuteNeck painacuteStiff neckacute [facility] Work Phone: Evaluation note* Diagnosis Polyarthralgia- Primary Pain in joint, multiple sites Elevated C-reactive protein (CRP) Polyarthralgia Pain in joint, multiple sites [facility] Diagnosis Polyarthralgia Pain in joint, multiple sites [facility] Diagnosis Onset Date Resolution Status Neck pain acuteStiff neckacute [facility] Work Phone: Evaluation note* Diagnosis RLQ abdominal pain- Primary Abdominal pain, right lower quadrant Metal foreign body in abdomen [facility] Diagnosis IIH (idiopathic intracranial hypertension)- Primary Benign intracranial hypertension Class 1 obesity due to excess calories with serious comorbidity and body mass index (BMI) of 32.0 to 32.9 in adult [facility]* Diagnosis Polyarthralgia- Primary Pain in joint, multiple sites Chronic pain syndrome [facility]* Diagnosis IIH (idiopathic intracranial hypertension)- Primary Benign intracranial hypertension Accommodation spasm, bilateral Hyperopic astigmatism of both eyes [facility]* Diagnosis IIH (idiopathic intracranial hypertension) Benign intracranial hypertension Class 1 obesity due to excess calories with serious comorbidity and body mass index (BMI) of 32.0 to 32.9 in adult [facility]* Diagnosis Onset Date Resolution Status Abnormal weight gain acuteAnxietyacuteBMI 29.0-29.9,adultacuteDietary surveillance and counseling acuteExercise counselingacuteFatty liveracuteFibromyalgiaacuteH/O: hysterectomy acuteHistory of drug abuseacuteHistory of renal stoneacuteHx of cholecystectomy acuteIIH (idiopathic intracranial hypertension)acuteMetabolic syndrome Xacute Mixed hyperlipidemiaacuteOsteoarthritisacuteOverweight (BMI 25.0-29.9)acute Palindromic rheumatismacutePolycystic ovarian diseaseacutePTSD (post-traumatic stress disorder)acute [facility] Work Phone: Evaluation note* Diagnosis Polyarthralgia- Primary Pain in joint, multiple sites Chronic pain syndrome Chronic bilateral low back pain with right-sided sciatica [facility]* Diagnosis Polyarthralgia Pain in joint, multiple sites [facility]* Diagnosis Jaw pain- Primary documented in this encounter [facility] Work Phone: Evaluation note* Diagnosis IIH (idiopathic intracranial hypertension) Benign intracranial hypertension [facility]* Diagnosis Lumbosacral spondylosis without myelopathy- Primary [...] [facility] Chronic migraine without aura without status migrainosus, not intractable- Primary Chronic migraine without aura, without mention of intractable migraine without mention of status migrainosus [facility] Diagnosis IIH (idiopathic intracranial hypertension)- Primary Benign intracranial hypertension Chronic migraine without aura without status migrainosus, not intractable Chronic migraine without aura, without mention of intractable migraine without mention of status migrainosus Encounter for medication monitoring Encounter for therapeutic drug monitoring [facility] Diagnosis IIH (idiopathic intracranial hypertension)- Primary Benign intracranial hypertension [facility] Diagnosis IIH (idiopathic intracranial hypertension)- Primary Benign intracranial hypertension Intractable chronic migraine with aura with status migrainosus [facility] Diagnosis IIH (idiopathic intracranial hypertension)- Primary Benign intracranial hypertension Other localized visual field defect, bilateral [facility] Diagnosis Migraine without aura, not intractable, without status migrainosus- Primary Idiopathic intracranial hypertension Benign intracranial hypertension [facility] Diagnosis IIH (idiopathic intracranial hypertension) Benign intracranial hypertension [facility] Diagnosis Migraine without aura, not intractable, without status migrainosus- Primary [facility] Diagnosis Intractable chronic migraine with aura with status migrainosus- Primary Idiopathic intracranial hypertension Benign intracranial hypertension [facility] Diagnosis Migraine without aura, not intractable, without status migrainosus- Primary [facility] Diagnosis Migraine without aura, not intractable, without status migrainosus- Primary [facility] Diagnosis Migraine without aura, not intractable, without status migrainosus- Primary [facility]* Diagnosis Carpal tunnel syndrome, bilateral upper limbs- Primary Disturbance of skin sensation Tingling Disturbance of skin sensation Numbness Disturbance of skin sensation [facility] Diagnosis IIH (idiopathic intracranial hypertension)- Primary Benign intracranial hypertension Pulsatile tinnitus Unspecified tinnitus Chronic migraine without aura, with intractable migraine, so stated, with status migrainosus Other dysphagia Weakness of both lower extremities [facility]* Diagnosis IIH (idiopathic intracranial hypertension)- Primary Benign intracranial hypertension [facility]* Diagnosis IIH (idiopathic intracranial hypertension)- Primary Benign intracranial hypertension IIH (idiopathic intracranial hypertension) Benign intracranial hypertension [facility]* Diagnosis IIH (idiopathic intracranial hypertension)- Primary Benign intracranial hypertension Migraine headaches IIH (idiopathic intracranial hypertension) Benign intracranial hypertension Migraine headaches [facility]* Diagnosis Nicotine use disorder, F17.2- Primary Tobacco use disorder IIH (idiopathic intracranial hypertension) Benign intracranial hypertension Migraine headaches PTSD (post-traumatic stress disorder) Posttraumatic stress disorder Anxiety Anxiety state, unspecified Attention deficit hyperactivity disorder (ADHD), unspecified ADHD type Mild intermittent asthma without complication (HCC) Unspecified asthma Fibromyalgia Mylagia and myositis, unspecified Palpitations History of cervical cancer Personal history of malignant neoplasm of cervix uteri IIH (idiopathic intracranial hypertension) Benign intracranial hypertension Migraine headaches * Assessment & Plan Note - Ellie North APRN.CNP - 12/27/2024 1:52 PM EDT Associated Problem(s): History of cervical cancer Assessment: s/p hysterectomy 2013 * Assessment & Plan Note - Ellie North APRN.CNP - 12/27/2024 1:52 PM EDT Associated Problem(s): Palpitations Assessment: reports intermittent palpations Denies chest pain Had cardiac work up 2022- negative stress test * Assessment & Plan Note - Ellie North APRN.CNP - 12/27/2024 1:51 PM EDT Associated Problem(s): Fibromyalgia Assessment: + chronic pain Has seen pain management in past * Assessment & Plan Note - Ellie North APRN.CNP - 12/27/2024 1:50 PM EDT Associated Problem(s): Asthma (HCC) Assessment: reports mild asthma States uses inhaler with increased activity or weather changes Denies recent URI or wheezing * Assessment & Plan Note - Ellie North APRN.CNP - 12/27/2024 1:50 PM EDT Associated Problem(s): ADHD (attention deficit hyperactivity disorder) Assessment: On Adderall- advised to hold DOS * Assessment & Plan Note - Ellie North APRN.CNP - 12/27/2024 1:49 PM EDT Associated Problem(s): Anxiety Assessment: Managed on medication by PCP * Assessment & Plan Note - Ellie North APRN.CNP - 12/27/2024 1:49 PM EDT Associated Problem(s): PTSD (post-traumatic stress disorder) Assessment: Reports trauma in past States has agitated with twilight anesthesia and becomes agitated post op * Assessment & Plan Note - Ellie North APRN.CNP - 12/27/2024 1:47 PM EDT Associated Problem(s): Nicotine use disorder, F17.2 Assessment: current smoker, 0.5 pack year daily Smoked on and off for 20 years * Assessment & Plan Note - Ellie North APRN.CNP - 12/27/2024 1:47 PM EDT Associated Problem(s): IIH (idiopathic intracranial hypertension) Assessment: See HPI [facility]* Diagnosis Nicotine use disorder, F17.2- Primary Tobacco use disorder IIH (idiopathic intracranial hypertension) Benign intracranial hypertension Migraine headaches PTSD (post-traumatic stress disorder) Posttraumatic stress disorder Anxiety Anxiety state, unspecified Attention deficit hyperactivity disorder (ADHD), unspecified ADHD type Mild intermittent asthma without complication (HCC) Unspecified asthma Fibromyalgia Mylagia and myositis, unspecified Palpitations History of cervical cancer Personal history of malignant neoplasm of cervix uteri Idiopathic intracranial hypertension Benign intracranial hypertension [facility]* Diagnosis Nicotine use disorder, F17.2- Primary Tobacco use disorder IIH (idiopathic intracranial hypertension) Benign intracranial hypertension Migraine headaches PTSD (post-traumatic stress disorder) Posttraumatic stress disorder Anxiety Anxiety state, unspecified Attention deficit hyperactivity disorder (ADHD), unspecified ADHD type Mild intermittent asthma without complication (HCC) Unspecified asthma Fibromyalgia Mylagia and myositis, unspecified Palpitations History of cervical cancer Personal history of malignant neoplasm of cervix uteri Intractable chronic migraine without aura and without status migrainosus- Primary Chronic migraine without aura, with intractable migraine, so stated, without mention of status migrainosus Idiopathic intracranial hypertension Benign intracranial hypertension [facility]* Diagnosis Nicotine use disorder, F17.2- Primary Tobacco use disorder IIH (idiopathic intracranial hypertension) Benign intracranial hypertension Migraine headaches PTSD (post-traumatic stress disorder) Posttraumatic stress disorder Anxiety Anxiety state, unspecified Attention deficit hyperactivity disorder (ADHD), unspecified ADHD type Mild intermittent asthma without complication (HCC) Unspecified asthma Fibromyalgia Mylagia and myositis, unspecified Palpitations History of cervical cancer Personal history of malignant neoplasm of cervix uteri IIH (idiopathic intracranial hypertension)- Primary Benign intracranial hypertension Other localized visual field defect, bilateral Pulsatile tinnitus Unspecified tinnitus documented [facility]* Diagnosis Nicotine use disorder, F17.2- Primary Tobacco use disorder IIH (idiopathic intracranial hypertension) Benign intracranial hypertension Migraine headaches PTSD (post-traumatic stress disorder) Posttraumatic stress disorder Anxiety Anxiety state, unspecified Attention deficit hyperactivity disorder (ADHD), unspecified ADHD type Mild intermittent asthma without complication (HCC) Unspecified asthma Fibromyalgia Mylagia and myositis, unspecified Palpitations History of cervical cancer Personal history of malignant neoplasm of cervix uteri IIH (idiopathic intracranial hypertension)- Primary Benign intracranial hypertension [facility]* Diagnosis Nicotine use disorder, F17.2- Primary Tobacco use disorder IIH (idiopathic intracranial hypertension) Benign intracranial hypertension Migraine headaches PTSD (post-traumatic stress disorder) Posttraumatic stress disorder Anxiety Anxiety state, unspecified Attention deficit hyperactivity disorder (ADHD), unspecified ADHD type Mild intermittent asthma without complication (HCC) Unspecified asthma Fibromyalgia Mylagia and myositis, unspecified Palpitations History of cervical cancer Personal history of malignant neoplasm of cervix uteri Anesthesia of skin- Primary Disturbance of skin sensation Paresthesia of skin Disturbance of skin sensation Disturbance of skin sensation [R20.9] Disturbance of skin sensation documented [facility]* Diagnosis IIH (idiopathic intracranial hypertension) Benign intracranial hypertension Other headache syndrome Vision changes Unspecified visual disturbance [facility] Diagnosis IIH (idiopathic intracranial hypertension) Benign intracranial hypertension Other headache syndrome [facility] N[facility] - [facility]orted* Type Description Date Medical History asthma Medical Historyrecovering addictSurgical HistoryhysterectomySurgical HistoryT&A Surgical HistoryC Section x 3Surgical HistoryLEAP x 2Hospitalization HistorySee above surgical history Buffer Other History general Narrative - Reported* Type Description Date Medical History asthma Medical Historyrecovering addictMedical HistoryanxietyMedical Historycervical cancerMedical HistoryADHDSurgical HistoryhysterectomySurgical HistoryT&ASurgical HistoryC Section x 3Surgical HistoryLEAP x 2Surgical HistoryLeft arm repair Hospitalization HistorySee above surgical history Buffer Other History general Narrative - Reported* Type Description Date Medical History asthma Medical Historyrecovering addictMedical HistoryanxietyMedical Historycervical cancerMedical HistoryADHDMedical HistoryINTRACRANIAL HYPERTENSIONSurgical HistoryhysterectomySurgical HistoryT&ASurgical HistoryC Section x 3Surgical HistoryLEAP x 2Surgical HistoryLeft arm repairHospitalization HistorySee above surgical history Buffer Other History general Narrative - Reported* Type Description Date Medical History asthma Medical Historyrecovering addictMedical HistoryanxietyMedical Historycervical cancerMedical HistoryADHDMedical HistoryINTRACRANIAL HYPERTENSIONSurgical HistoryhysterectomySurgical HistoryT&ASurgical HistoryC Section x 3Surgical HistoryLEAP x 2Surgical HistoryLeft arm repairSurgical Historyintercranial hypertension9-2021Hospitalization HistorySee above surgical history Buffer Other Hospital Discharge instructions Additional Instructions Follow-up with your primary care doctor Return to ED if develop worsening [facility]: Hospital Discharge instructions Additional Instructions Push fluids Rest Follow-up with Dr. Duran Tylenol or Motrin if needed for your discomfortPromedica Defiance [facility] Work Phone: Hospital Discharge instructions Additional Instructions Ice to sore areas May take the ketorolac every 6 hours for pain take with food May take the muscle relaxer cyclobenzaprine up 3 times a day for pain it might make you drowsy Follow-up with family doctor as needed for recheck Return to the ER for worsening pain additional injuries or any other concerns [facility] Work Phone: Hospital Discharge instructions Additional Instructions I may not have addressed or treated all of your medical illnesses or the abnormal blood work or imaging studies during this hospitalization. Please ask your primary care provider to obtain [facility] records entirely to follow up on all of the abnormal physical, laboratory, and imaging findings that I have not addressed. Please follow-up with your [facility] providers. Please ask the [facility] to obtain [facility] pending [facility] analysis and follow the recommendations for any additional needed investigation or treatment. Please return back to the emergency room or seek medical attention if your symptoms worsen or return. Discharging you from [facility] does not mean that your medical care ends here and now. You may still need additional monitoring, work up, investigation, and treatment plan to be handled from this point on by out patient providers including your primary care provider and specialists. For any medication question, please contact your retail pharmacist or your primary care provider. Thank you.[facility] Work Phone: Hospital Discharge instructions Additional Instructions Continue current meds Follow-up with your cerebral pressure specialist at the [facility] Return if symptoms are worse Rest todayDay[facility] Work Phone: Reason for referral (narrative)* Outpatient Procedure (Routine) - AuthorizedSpecialtyDiagnoses / ProceduresReferred By Contact Referred To [facility] Diagnoses Atypical chest pain Procedures ECHO ECHO TTHRC R-T 2D W/WOM-MODE COMPL SPEC&COLR D Derrell Phipps [place] [id number] [place] [address]. [place] [address] [address] Referral IDStatusReasonStelverson DateExpiration DateVisits RequestedVisits [id number] Auto-Generated Referral * Outpatient Procedure (Routine) - ClosedSpecialtyDiagnoses / ProceduresReferred By ContactReferred To [facility] Diagnoses Atypical chest pain Procedures ECG COMPLETE ECG ROUTINE ECG W/LEAST 12 LDS W/I&R Derrell Phipps [place] [id number] [place] [address]. [place] [address] [address] Referral IDStatusLettyRedbird DateExpiration DateVisits RequestedVisits [id number] Auto-Generated [facility] Diagnostic Procedure Only (Routine) - ClosedSpecialtyDiagnoses / ProceduresReferred By ContactReferred To ContactXR IMAGING Diagnoses Polyarthralgia Procedures XR SACROILIAC JOINTS 2V AP PELVIS/FERGUESON RADIOLOGIC EXAMINATION SACROILIAC JNTS <3 VIEWS Alem Stovall MD [address] [place] [address] X[facility] [place] [address] Referral IDStatusReasonStart DateExpiration DateVisits RequestedVisits [id number] Auto-Generated Referral [facility] for referral (narrative)* Diagnostic Procedure Only (Routine) - ClosedSpecialtyDiagnoses / ProceduresReferred By ContactReferred To ContactXR IMAGING Diagnoses Polyarthralgia Procedures XR SACROILIAC JOINTS 2V AP PELVIS/FERGUESON RADIOLOGIC EXAMINATION SACROILIAC JNTS <3 VIEWS Alem Stovall MD [address] [place] [address] [facility] [place] [address] Referral IDStatusReasonStelverson DateExpiration DateVisits RequestedVisits [id number] Auto-Generated Referral [facility] for referral (narrative)* Diagnostic Procedure Only (Routine) - AuthorizedSpecialtyDiagnoses / ProceduresReferred By Contact Referred To ContactXR IMAGING Diagnoses Lumbosacral spondylosis without myelopathy Degeneration of intervertebral disc of lumbar region with discogenic back pain and lower extremity pain Chronic bilateral low back pain with bilateral sciatica Procedures XR LUMBAR LIMITED 2V AP/LAT RADEX SPINE LUMBOSACRAL 2/3 [place] [address] [place] [address] [facility] [place] [address] Referral IDStatusReasonStart DateExpiration DateVisits RequestedVisits [id number] Auto-Generated Referral / [facility] for referral (narrative)* Diagnostic Procedure Only (Routine) - ClosedSpecialtyDiagnoses / ProceduresReferred By ContactReferred To ContactXR IMAGING Diagnoses Lumbosacral spondylosis without myelopathy Polyarthralgia Chronic pain syndrome Procedures XR LUMBAR GENERAL 3V AP/LAT/L5-S1 RADEX SPINE LUMBOSACRAL 2/3 VIEWS Cassandra Orozco, BALL THREAD MACHINE TENDER.OPEN CLAIMS REPRESENTATIVE [address] [place] [address] Xr Imaging [facility] Referral IDStatusReasonStart DateExpiration DateVisits RequestedVisits [id number] Auto-Generated Referral * Diagnostic Procedure Only (Routine) - ClosedSpecialtyDiagnoses / Procedures Referred By ContactReferred To ContactXR IMAGING Diagnoses Lumbosacral spondylosis without myelopathy Polyarthralgia Chronic pain syndrome Neck pain Procedures XR CERV OTHER 4V AP/LAT/OBL RADEX SPINE CERVICAL 4 OR 5 VIEWS Cassandra Orozco APRN.OPEN CLAIMS REPRESENTATIVE [address] [place] [address] X[facility] [place] [address] Referral IDStatusReasonStart DateExpiration DateVisits RequestedVisits [id number] Auto-Generated Referral [facility] for referral (narrative)No reason for referral information availableProm[facility] Work Phone: Reason for visit Narrative* Diagnostic Procedure Only (Routine) - ClosedSpecialtyDiagnoses / ProceduresReferred By ContactReferred To ContactXR IMAGING Diagnoses Polyarthralgia Procedures XR SACROILIAC JOINTS 2V AP PELVIS/FERGUESON RADIOLOGIC EXAMINATION SACROILIAC JNTS <3 VIEWS Alem Stovall MD [address] [place] [address] [place] [address] Referral IDStatusReasonStelverson DateExpiration DateVisits RequestedVisits [id number] Auto-Generated Referral / [facility] for visit Narrative* Auth/Cert (Routine)Specialty Diagnoses / ProceduresReferred By ContactReferred To Contact Procedures SPECIAL PROCEDURES Referral IDStatusReasonStart DateExpiration DateVisits RequestedVisits [id number] [facility] for visit Narrative* MRI/CAT Scan (Routine) - Closed SpecialtyDiagnoses / ProceduresReferred By ContactReferred To ContactRadiology Diagnoses IIH (idiopathic intracranial hypertension) Other headache syndrome Procedures MRI CSF FLOW STUDY ONLY Mandie Bender MD [address] [facility] [address] [facility] [place] [address] Phone: tel: fax: [facility] [address] [place] [address] Phone: tel: fax: Referral IDStatusReasonRedbird DateExpiration DateVisits RequestedVisits [id number]/25/202511 [facility] Summary Purpose Family History No Family History Records Found Relationship Condition Age at Onset Recorded Date/T sylvester father Bipolar disorder Unknown DeceasedUnknownSuicideUnknownNot SpecifiedDeceasedUnknownHypertensionUnknown Malignant neoplasm of lungUnknownsisterObesityUnknown Relationship Condition Age at Onset Recorded Date/T sylvester father Bipolar disorder Unknown DeceasedUnknownSuicideUnknownmotherDeceasedUnknownHypertensionUnknownMalignant neoplasm of lungUnknownsisterObesityUnknown Relationship Condition Age at Onset Recorded Date/T sylvester father Bipolar disorder Unknown DeceasedUnknownSuicideUnknownmotherDeceasedUnknownHypertensionUnknownMalignant neoplasm of lungUnknownArthritisUnknownsisterObesityUnknownDiabetes mellitus UnknownAbnormal visionUnknownbrotherBipolar disorderUnknowndaughterHistory of impaired glucose toleranceUnknownLearning disabilityUnknownAsthmaUnknown Advance Directives No Advanced Directives Records Found Advance Directive Response Recorded Date/ Time Advance Directives No June 8:48pm Advance Directive Response Recorded Date/ Time Advance Directives No June 7:48pm Advance Directive Response Recorded Date/ Time Advance Directives No August 24 8:20am Advance Directive Response Recorded Date/ Time Advance Directives No August 24 024 7:20am Date ActivatedDate InactivatedComments12/16/2024 9:59 AM12/17/2024 1:35 PMQuestion AnswerCommentsFull Code Order Discussed With:* Patient Date ActivatedDate InactivatedComments12/16/2024 9:59 AM12/17/2024 1:35 PMQuestion AnswerCommentsFull Code Order Discussed With:* Patient Chief Complaint and Reason for Visit Chief [...] gall stones gall stones [facility] for [facility] Neck pain Stiff neck Chief Complaint rt side back pain/na usea gall stones gall stones fever [facility] follow [facility] fever, neck stiff/swollen, body aches Amb DocumentationReason for VisitFever Neck pain Stiff neck Chief Complaint gall stones gall stones fever ER follow up[facility] fever, neck stiff/swollen, body aches Amb Documentation Amb Documentation rt side abd painReason for VisitNeck pain Stiff neck Chief Complaint Amb Documentation rt side abd pain Amb Documentation Amb Documentation rt arm pain Chief Complaint Amb Documentation rt arm pain Amb Documentation Self-FRMCReason for VisitAbnormal weight gain Anxiety BMI 29.0-29.9,adult Dietary surveillance and counseling Exercise counseling Fatty liver Fibromyalgia H/O: hysterectomy History of drug abuse History of renal stone Hx of cholecystectomy IIH (idiopathic intracranial hypertension) Metabolic syndrome X Mixed hyperlipidemia Osteoarthritis Overweight (BMI 25.0-29.9) Palindromic rheumatism Polycystic ovarian disease PTSD (post-traumatic stress disorder) Chief Complaint Amb Documentation rt arm pain Amb Documentation Self-FR mvaReason for VisitAbnormal weight gain Anxiety BMI 29.0-29.9,adult Dietary surveillance [...] sent by September 28, 2024 9:15p m Chief Complaint Admit Date Bilat Ear Pressure February 21, 2025 1 0:33pm Reason for Referral SpecialtyDiagnoses / ProceduresReferred By ContactReferred To ContactMR IMAGING Diagnoses Chronic bilateral low back pain with bilateral sciatica Cervical radiculopathy Cervical spondylolysis Procedures MRI CERVICAL SPINE WO IVCON MRI SPINAL CANAL CERVICAL W/O CONTRAST Cassandra Parish, BALL THREAD MACHINE TENDER.OPEN CLAIMS REPRESENTATIVE [address] [facility] [place] [address] [place] [address] Referral IDStatusReasonStart DateExpiration DateVisits RequestedVisits [id number] Auto-Generated Referral /[id number] / ProceduresReferred By ContactReferred To ContactMR IMAGING Diagnoses Chronic bilateral low back pain with bilateral sciatica Procedures MRI LUMBAR SPINE WO IVCON MRI SPINAL CANAL LUMBAR W/O CONTRAST MATERIAL Cassandra Orozco, BALL THREAD MACHINE TENDER.OPEN CLAIMS REPRESENTATIVE [address] [place] [address] [facility] [place] [address] Referral IDStatusReasonStart DateExpiration DateVisits RequestedVisits [id number] Auto-Generated Referral /[id number] / ProceduresReferred By ContactReferred To ContactNephrology Diagnoses IIH (idiopathic intracranial hypertension) Kidney stones Procedures CONSULT TO NEPHROLOGY OFFICE/OUTPATIENT [facility] 60 MINUTES Angie Alvarado MD [address] [place] [address] Referral IDStatusReasonStart DateExpiration DateVisits RequestedVisits [id number] Review PCP Requested Referral /[id number] / ProceduresReferred By ContactReferred To Contact Diagnoses Polyarthralgia Chronic pain syndrome Chronic bilateral low back pain with right-sided sciatica Procedures PROVIDER ORDERED FOLLOW UP OFFICE/OUTPATIENT [facility] [address] [place] [address] [place] [address] Referral IDStatusReasonStart DateExpiration DateVisits RequestedVisits [id number] PCP Requested Referral /[id number] / ProceduresReferred By ContactReferred To [facility] Diagnoses Polyarthralgia Chronic pain syndrome Procedures CONSULT TO [facility] OFFICE/OUTPATIENT [facility] [address] [place] [address] [place] [address] Referral IDStatusReasonStart DateExpiration DateVisits RequestedVisits [id number] PCP Requested Referral /[id number] / ProceduresReferred By ContactReferred To [facility] Diagnoses Chronic pain syndrome Procedures CONSULT TO [facility] (CHRONIC PAIN) OFFICE/OUTPATIENT [facility] 60 MINUTES Alem Stovall MD [address] [place] [address] Referral IDStatusReharry s. [facility] veterans' hospitalStelverson DateExpiration DateVisits RequestedVisits [id number] Review PCP Requested Referral [id number] / ProceduresReferred By ContactReferred To Contact Diagnoses IIH (idiopathic intracranial hypertension) BMI 32.0-32.9,adult Class 1 obesity due to excess calories with serious comorbidity and body mass index (BMI) of 32.0 to 32.9 in adult Procedures PROVIDER ORDERED FOLLOW UP OFFICE/OUTPATIENT [facility] 60 MINUTES Rafy Goldberg [place] [address] [place] [address] Referral [facility]Status[facility] DateExpiration DateVisits RequestedVisits [id number] PCP Requested Referral [id number] / ProceduresReferred By ContactReferred To Contact Diagnoses IIH (idiopathic intracranial hypertension) BMI 32.0-32.9,adult Class 1 obesity due to excess calories with serious comorbidity and body mass index (BMI) of 32.0 to 32.9 in adult Procedures CONSULT BARIATRIC/[facility] OFFICE/OUTPATIENT [facility] 60 MINUTES Rafy Goldberg [place] [address] [place] [address] [facility]Status[facility] DateExpiration DateVisits RequestedVisits [id number] PCP Requested Referral [id number] / ProceduresReferred By ContactReferred To ContactOphthalmology Diagnoses IIH (idiopathic intracranial hypertension) Procedures CONSULT TO OPHTHALMOLOGY OFFICE/OUTPATIENT [facility] 60 MINUTES Rafy Goldberg [place] [address] [place] [address] Referral IDStatusReasonStart DateExpiration DateVisits RequestedVisits [id number] PCP Requested Referral Reason * FU 12/04 Refer t o rheumatology for polyarthralgia, high CRP levels Diagnosis 1 Polyarthralgia (M25. 50) Referral Organization [facility] Lizet Negrete Referring Provider First Name Lisa Referring Provider Last Name Andreas Referring Provider Specialty Nurse Pract itioner Referred Organization [facility] Referred Provider Chata Coleman Referred Address [address] [place],[address] Referred Provider Specialty Internal Med icine Referral Priority Routine General Notes Yaima Patrick 03:16:08 PM >referral received and faxed Reason 07/18/22 @ 11:30 r efer to cardiology for ekg changes; atypical chest pains; stress test ordered Diagnosis [address]-T wav e electrocardiographic changes (R94.31) Referral Organization [facility] Lizet Negrete Referring Provider First Name Lisa Referring Provider Last Name Andreas Referring Provider Specialty Nurse Pract itioner Referred Organization [facility] enter Referred Address [address] [facility] [address],[place], [place],[address] Referred Provider Specialty Cardiology Referral Priority Routine Referral Appointment Date 2022-07-18 General Notes Yaima Patrick 09:33:36 AM > referral received and faxed to [facility] Yaima Patrick 07/01/2022 01:31:17 PM >[facility] called and does not take pt insurance. informed pt,she states she would like to [facility] to [facility]. [facility] faxes to [facility] Yaima Patrick 07/07/2022 02:00:35 PM >received fax, appt scheduled with Silvia Guevara 07/07/2022 03:13:02 PM >pt called [facility]. they stated they did not receive a referral and the pt herself called and made the appt. fax: [phone] Reason 01/16/22 @ Refer t o neurology for intracranial hypotension Diagnosis 1 Intracranial hypoten geronimo (G96.810) Referral Organization [facility] Family Lizet Negrete Referring Provider First Name Lisa Referring Provider Last Name Andreas Referring Provider Specialty Nurse Tianna tony Referred Organization [facility] Referred Provider Janina Soria Referred Address [address] [place],[address] Referred Provider Specialty Neurology Referral Priority Routine Referral Appointment Date 2022-01-16 General Notes Gui Silvia 12/2021 09:02:58 AM >pt has appt today 01/16/22 at 1:15 pm in [place] at [facility]. pt aware. [facility] has copy of mri report Darnell Yaima Andrew 01/16/2022 09:44:26 AM >Referral received and sent p2p successful per log Additional Source Comments INFORMATION SOURCE (unrecogn ized section and content) DATE CREATED AUTHOR 11/03/2017 [facility] DATE CREATED AUTHOR AUTHOR'S ORGANIZ ATION 11/04/2017 [facility] DATE CREATED AUTHOR AUTHOR'S ORGANIZ ATION 06/30/2022 [facility] DATE CREATED AUTHOR AUTHOR'S ORGANIZ ATION 08/12/2022 [facility] DATE CREATED AUTHOR AUTHOR'S ORGANIZ ATION 07/15/2023 [facility] DATE CREATED AUTHOR AUTHOR'S ORGANIZ ATION 10/07/2023 [facility] DATE CREATED AUTHOR AUTHOR'S ORGANIZ ATION 12/23/2024 [facility] DATE CREATED AUTHOR AUTHOR'S ORGANIZ ATION 01/27/2025 [facility] DATE CREATED AUTHOR AUTHOR'S ORGANIZ ATION 02/03/2025 Provider Locations DATE CREATED AUTHOR AUTHOR'S ORGANIZ ATION 02/17/2025 [facility] DATE CREATED AUTHOR AUTHOR'S ORGANIZ ATION 02/21/2025 [facility] DATE CREATED AUTHOR AUTHOR'S ORGANIZ ATION 02/23/2025 [facility] DATE CREATED AUTHOR AUTHOR'S ORGANIZ ATION 03/01/2025 [facility] REASON FOR VISIT (unrecogniz ed section and content) ReasonOnset [id number]/12/2025SpecialtyDiagnoses / ProceduresReferred By ContactReferred To ContactNEUROLOGICAL INSTITUTE Diagnoses Disturbance of skin sensation Procedures EMG(NEURO/NI) NERVE CONDUCTION STUDIES 9-10 STUDIES Lisandro Gonsalez MD [address] [place] [address] Phone: tel: fax: Neurology [address] [place] [address] Phone: tel: Referral IDStatusReasonStelverson DateExpiration DateVisits RequestedVisits [id number] Auto-Generated Referral /[id number] New Patient ConsultReasonCommentsSwollen GlandsReasonCommentsRadiology XRReasonCommentsNew PatientJoint swelling, couple years. 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 Liver was enlarged. Patient does not knowReasonCommentsNew PatientReasonCommentsDaily HeadacheReasonCommentsJoint PainReasonCommentsIIHSpecialtyDiagnoses / ProceduresReferred By ContactReferred To ContactOphthalmology Diagnoses IIH (idiopathic intracranial hypertension) Procedures CONSULT TO OPHTHALMOLOGY OFFICE/OUTPATIENT [facility] 60 MINUTES [place] [id number] [place] [address] Ref[facility]Status[facility] DateExpiration DateVisits RequestedVisits [id number] PCP Requested Referral [id number]eaejxulVoshfhfzg / Procedures Referred By ContactReferred To Contact Diagnoses IIH (idiopathic intracranial hypertension) BMI 32.0-32.9,adult Class 1 obesity due to excess calories with serious comorbidity and body mass index (BMI) of 32.0 to 32.9 in adult Procedures PROVIDER ORDERED FOLLOW UP OFFICE/OUTPATIENT [facility] 60 [place] [address] [place] [address] Referral IDStatusReasonStart DateExpiration DateVisits RequestedVisits [id number] PCP Requested Referral [id number] PainSpecialtyDiagnoses / Procedures Referred By ContactReferred To [facility] Diagnoses Chronic pain syndrome Procedures CONSULT TO [facility] (CHRONIC PAIN) OFFICE/OUTPATIENT [facility] 60 MINUTES Alem Stovall MD [address] [place] [address] Referral IDStatusReasonStart DateExpiration DateVisits RequestedVisits [id number] Review PCP Requested Referral [id number] symptoms/complaintsHas L jaw fx, was referred here to get CT scan. C/o jaw locking, and tenderness.ReasonComments HeadacheSpecialtyDiagnoses / ProceduresReferred By ContactReferred To Contact Diagnoses IIH (idiopathic intracranial hypertension) Procedures PROVIDER ORDERED FOLLOW UP OFFICE/OUTPATIENT [facility] 60 MINUTES Emilee Cowart, AMISHA.OPEN CLAIMS REPRESENTATIVE [address] [place] [address] Referral IDStatusReasonStart DateExpiration DateVisits RequestedVisits [id number] PCP Requested Referral [id number] back painSpecialtyDiagnoses / ProceduresReferred By ContactReferred To [facility] Diagnoses Polyarthralgia Chronic pain syndrome Procedures CONSULT TO [facility] OFFICE/OUTPATIENT [facility] 60 [place] [address] [place] [address] Referral IDStatusReasonStart DateExpiration DateVisits RequestedVisits [id number] PCP Requested Referral [id number]u PatientReasonCommentsFollow Up Cervical painReasonCommentsResultsReasonCommentsIIH EvaluationReasonComments Kidney StonesFlank PainBack PainReasonCommentsRecheckReasonCommentsNew Patient SpecialtyDiagnoses / ProceduresReferred By ContactReferred To ContactUrology / UROLOGY Diagnoses Kidney stone IIH (idiopathic intracranial hypertension) Procedures CONSULT TO UROLOGY OFFICE/OUTPATIENT [facility] 60 MINUTES Angie Alvarado MD [address] [place] [address] Phone: tel: fax: Urology [address] [place] [address] Phone: tel: Referral IDStatusReasonStart DateExpiration DateVisits RequestedVisits [id number]/11/202512/[id number] DateCommentsRefill Jxneqvb3407/04/2024ReasonCommentsPainReasonCommentsPatient UpdateReasonComments HeadacheIIHReasonCommentsParesthesia of bilateral legs Anterior thigh numbness SpecialtyDiagnoses / ProceduresReferred By ContactReferred To ContactNeurology Diagnoses Paresthesia of bilateral legs Anterior thigh numbness Procedures CONSULT TO NEUROLOGY OFFICE/OUTPATIENT [facility] 60 MINUTES Cassandra Orozco APRN.OPEN CLAIMS REPRESENTATIVE [address] [place] [address] Phone: tel: fax: Referral IDStatusReasonStart DateExpiration DateVisits RequestedVisits [id number] PCP Requested Referral /[id number]mcaqMtpjwubkPuncug UpHeadacheReason CommentsMigraineReasonCommentsPapilledema Follow UpReasonCommentsDaily Headache Established PatientReasonCommentsReasonCommentsInfusionHeadacheSpecialty Diagnoses / ProceduresReferred By ContactReferred To ContactNeurology / HEADACHE Diagnoses DHE 3 Procedures DHE Self Neurology [address] [place] [address] Phone: tel: fax: Referral IDStatusReasonStart DateExpiration DateVisits RequestedVisits [id number]/4/202512/31/[id number] Outside Medical RecordsReasonCommentsInsurance AuthorizationQuOsei hartman Onset [id number]sonCommentsCare Coordinator - OtherProcedure SchedulingReasonCommentsProcedureReasonCommentsPre- Op VisitReasonCommentsPost OpReasonCommentsFollow UpReasonCommentsReferral RequestBotox Injection Care Teams (unrecognized sec tion and content) Team Status: Active Member Role Status Dates Yoan Ivey MD Primary Care Provider Active Team Status: Inactive Member Role Status Dates Yoan Ivey MD Primary Care Provider Active Start: September 28, 2024 End: September 30ourtJass Claire ProviderActiveStart: September 28, 2024 End: September 30, 2024MicCony Toneyit ProviderActiveStart: September 28, 2024 End: September 30, 2024Rafisonali Winslow MDAttending ProviderActiveStart: September 28, 2024 End: September 30, 2024Gennaro Armando ProviderActiveStart: September 28, 2024 End: September 30, 2024Paul Gr ProviderActiveStart: September 28, 2024 End: September 30, 2024 Team Status: Active Member Role Status Dates PHYSICIAN NO FAMILY Primary Care Provider Active Start: April 21, 2024 Tavo Marie MDAttending ProviderActiveStart: April 21, 2024 Team Status: Inactive Member Role Status Dates PHYSICIAN NO FAMILY Primary Care Provider Active Start: May 23, 2024 End: May 23, 2024Florencio Guevara Jr DOAttamy ProviderActiveStart: May 23, 2024 End: May 23, 2024 [...] Team Status: Inactive Member Role Status Dates JORI Garibay- Emergency Provider Active Start: February 08, 2024 End: February 07HYSICIAN NO FAMILYFormerly [facility] Care ProviderActiveStart: February 08, 2024 End: February 08, 2024 Team Status: Inactive Member Role Status Dates PHYSICIAN NO FAMILY Primary Care Provider Active Start: March 19, 2024 End: March 19Carlos Fernandez ProviderActiveStart: March 19, 2024 End: March 19, 2024 Team Status: Active Member Role Status Dates Lisa Johns DNP Primary Care Provider Active Start: November 16, 2023 Luh Lin ProviderActiveStart: November 16, 2023 Team Status: Inactive Member Role Status Dates Lisa Johns DNP Primary Care Provider Active Start: December 23, 2023 End: December 22Suyapa Turner ProviderActiveStart: December 23, 2023 End: December 23, 2023 Team Status: Active Member Role Status Dates Lisa Johns DNP Primary Care Provider Active Start: December 24, 2023 Sarita Rose ProviderActiveStart: December 24, 2023 Team Status: Active Member Role Status Dates Lisa Johns DNP Primary Care Provider Active Team Status: Active Member Role Status Dates Lisa Johns DNP Primary Care Provider Active Start: September 28, 2023 Ronald Chapin ProviderActiveStart: September 28, 2023 Team Status: Inactive Member Role Status Dates Lisa Johns DNP Primary Care Provider Active Start: October 04, 2023 End: October 03Jass Rust ProviderActiveStart: October 04, 2023 End: October 04, 2023 Team Status: Active Member Role Status Dates Lisa Johns DNP Primary Care Provider Active Start: October 06, 2023 Ronald Espinal ProviderActiveStart: October 06, 2023 Team Status: Inactive Member Role Status Dates Lisa Johns DNP Primary Care Provider Active Magnolia Parrish ProviderActive Team Status: Active Member Role Status Dates Lisa Johns DNP Primary Care Provider, Attending Provider Active Team Status: Inactive Member Role Status Dates Lisa Johns DNP Primary Care Provider Active Janina Soria DOAttamy ProviderActive Team Status: Inactive Member Role Status Dates Lisa Johns DNP Primary Care Provider Active Bowen Sawyerrgencolten ProviderActive Team Status: Inactive Member Role Status Dates Lisa Johns DNP Primary Care Provider, Attending Provider Active Richard Wing MDOther ProviderActive Team Status: Inactive Member Role Status Dates Lisa Johns DNP Primary Care Provider, Attending Provider Active Team Status: Inactive Member Role Status Dates Lisa Johns DNP Primary Care Provider Active Suyapa Quiroz ProviderActive Team Status: Inactive Member Role Status Dates Lisa Johns DNP Primary Care Provider, Attending Provider Active Vaishali Faith ProviderActive Team Status: Inactive Member Role Status Dates Lisa Johns DNP Attending Provider Active S tart: April 20, 2023 End: April 20, 2023 Team Status: Inactive Member Role Status Dates Lisa Johns DNP Primary Care Provider Active Start: May 06, 2023 End: May 06Jass Rust ProviderActiveStart: May 06, 2023 End: May 06, 2023 Team Status: Inactive Member Role Status Dates Edward Hernandez PA-C Attending Provider Active St art: May 14, 2023 End: May 14, 2023 Team Status: Inactive Member Role Status Dates Lisa Johns DNP Primary Care Provider Active Start: June 09, 2023 End: June 10cristela Cristina , Emergencolten ProviderActiveStart: June 09, 2023 End: June 10, 2023 Team Status: Inactive Member Role Status Dates Lisa Johns DNP Primary Care Provider Active Start: July 20, 2023 End: July 19amanda Duran DOAttending ProviderActiveStart: July 20, 2023 End: July 20, 2023 Team Status: Inactive Member Role Status Dates Lisa Johns DNP Primary Care Provider Active Start: July 29, 2023 End: July 28amanda Duran DOAttending ProviderActiveStart: July 29, 2023 End: July 29, 2023 Team Status: Inactive Member Role Status Dates Lisa Johns DNP Primary Care Provider Active Start: August 23, 2023 End: August 23, 2023Bowen Finkrisai ProviderActiveStart: August 23, 2023 End: August 23, 2023 Team Status: Inactive Member Role Status Dates Lisa Johns DNP Primary Care Provid er, Attending Provider Active Start: August 25, 2023 End: August 25, 2023 Team Status: Inactive Member Role Status Dates Lisa Johns DNP Primary Care Provider Active Start: August 25, 2023 End: August 25, 2023JORI Garibay-BCEmeelsa ProviderActiveStart: August 25, 2023 End: August 25, 2023 Team Status: Active Member Role Status Dates Lisa Johns DNP Primary Care Provider Active Start: August 25, 2023 Ronald Espinal ProviderActiveStart: August 25, 2023 Team MemberRelationshipSpecialtyStart DateEnd Date Yoan Ivey MD [address] [place] [address] PCP - GeneralFamily Medicine06/06/24Team MemberRelationshipSpecialtyStart DateEnd Date oYan Ivey MD [address] [place] [address] PCP - GeneralFamily Medicine06/06/24Team MemberRelationshipSpecialtyStart DateEnd Date Yoan Ivey MD [address] [place] [address] PCP - GeneralFamily Medicine06/06/24Team MemberRelationshipSpecialtyStart DateEnd Date Yoan Ivey MD [address] [place] [facility] [place] [address] PCP - GeneralFamily Medicine06/06/24Team MemberRelationshipSpecialtyStart DateEnd Date Yoan Ivey MD [address] [place] [facility] [place] [address] PCP - GeneralFamily Medicine06/06/24Team MemberRelationshipSpecialtyStart DateEnd Date Yoan Ivey MD [address] [place] [facility] [place] [address] PCP - GeneralFamily Medicine06/06/24Team MemberRelationshipSpecialtyStart DateEnd Date Yoan Ivey MD [address] [place] [facility] [place] [address] PCP - GeneralFamily Medicine06/06/24Team MemberRelationshipSpecialtyStart DateEnd Date Yoan Ivey MD [address] [place] [facility] [place] [address] PCP - GeneralFamily Medicine06/06/24Team MemberRelationshipSpecialtyStart DateEnd Date Yoan Ivey MD [address] [place] [facility] [place] [place] [address] PCP - GeneralFamily Medicine06/06/24Team MemberRelationshipSpecialtyStart DateEnd Date Yoan Ivey MD [address] [place] [address] PCP - GeneralFamily Medicine06/06/24Team MemberRelationshipSpecialtyStart DateEnd Date Yoan Ivey MD [address] [place] [facility] [place] [place] [address] PCP - GeneralFamily Medicine06/06/24Team MemberRelationshipSpecialtyStart DateEnd Date Yoan Ivey MD [address] [place] [place] [place] [address] PCP - GeneralFamily Medicine06/06/24Team MemberRelationshipSpecialtyStart DateEnd Date Yoan Ivey MD [address] [place] [facility] [place] [place] [address] PCP - GeneralFamily Medicine06/06/24Team MemberRelationshipSpecialtyStart DateEnd Date Yoan Ivey MD [address] [place] [place] [place] [address] PCP - GeneralFamily Medicine06/06/24Team MemberRelationshipSpecialtyStart DateEnd Date Yoan Ivey MD [address] [place] [place] [place] [address] PCP - GeneralFamily Medicine06/06/24Team MemberRelationshipSpecialtyStart DateEnd Date Yoan Ivey MD [address] [place] [place] [place] [address] PCP - GeneralFamily Medicine06/06/24Team MemberRelationshipSpecialtyStart DateEnd Date Yoan Ivey MD [address] [place] [place] [place] [address] PCP - GeneralFamily Medicine06/06/24Team MemberRelationshipSpecialtyStart DateEnd Date Yoan Ivey MD [address] [place] [place] [address] PCP - GeneralFamily Medicine06/06/24Team MemberRelationshipSpecialtyStart DateEnd Date Yoan Ivey MD [address] [place] [place] [address] PCP - GeneralFamily Medicine06/06/24Team MemberRelationshipSpecialtyStart DateEnd Date Yoan Ivey MD [address] [place] [place] [address] PCP - GeneralFamily Medicine06/06/24Team MemberRelationshipSpecialtyStart DateEnd Date Yoan Ivey MD [address] [place] [place] [address] PCP - Generalmily Medicine06/06/24Team MemberRelationshipSpecialtyStart End Yoan Ivey MD [address] [place] [facility] [place] [address] PCP - GeneralFamily Medicine06/06/24 Team Status: Inactive Member Role Status Dates Shahid Ritter MD Emergency Provider Active Star t: October 04, 2024 End: October 04, 2024Melissa Meza Care ProviderActiveStart: October 04, 2024 End: October 04, 2024Team MemberRelationshipSpecialtyStart DateEnd Date Yoan Ivey MD [address] [place] [address] PCP - GeneralFamily Medicine06/06/24Team MemberRelationshipSpecialtyStart DateEnd Date Yoan Ivey MD [address] [place] [facility] [place] [address] PCP - GeneralFamily Medicine06/06/24Team MemberRelationshipSpecialtyStart DateEnd Date Yoan Ivey MD [address] [place] [facility] [place] [address] PCP - GeneralFamily Medicine06/06/24Team MemberRelationshipSpecialtyStart DateEnd Date Yoan Ivey MD [address] [place] [place] [address] PCP - GeneralFamily Medicine06/06/24Team MemberRelationshipSpecialtyStart DateEnd Date Yoan Ivey MD [address] [place] [facility] [place] [address] PCP - GeneralFamily Medicine06/06/24Team MemberRelationshipSpecialtyStart DateEnd Date Yoan Ivey MD [address] [place] [facility] [place] [address] PCP - GeneralFamily Medicine06/06/24 Lloyd Sherwood MD [address] [place] [address] ReferringOphthalmology12/14/24Team MemberRelationshipSpecialtyStart DateEnd Date Yoan Ivey MD [address] [place] [address] PCP - GeneralFamily Medicine06/06/24 Lloyd Sherwood MD [address] [place] [address] ReferringOphthalmology12/14/24Team MemberRelationshipSpecialtyStart DateEnd Yoan Ivey MD [address] [place] [address] PCP - GeneralFamily Medicine06/06/24 Lloyd Sherwood MD [address] [place] [address] ReferringOphthalmology12/14/24Team MemberRelationshipSpecialtyStart DateEnd Yoan Ivey MD [address] [place] [address] PCP - GeneralFamily Medicine06/06/24 Lloyd Sherwood MD [address] [place] [address] ReferringOphthalmology12/14/24Team MemberRelationshipSpecialtyStart DateEnd Yoan Ivey MD [address] [place] [address] PCP - GeneralFamily Medicine06/06/24 Lloyd Sherwood MD [address] [place] [address] ReferringOphthalmology12/14/24Team MemberRelationshipSpecialtyStart DateEnd Yoan Ivey MD [address] [place] [address] PCP - GeneralFamily Medicine06/06/24 Lloyd Sherwood MD [address] [place] [address] ReferringOphthalmology12/14/24Team MemberRelationshipSpecialtyStart DateEnd [facility] Yoan Ivey MD [address] [place] [address] PCP - GeneralFamily Medicine06/06/24 Lloyd Sherwood MD [address] [place] [address] ReferringOphthalmology12/14/24Team MemberRelationshipSpecialtyStart DateEnd [facility] Yoan Ivey MD [address] [place] [address] PCP - GeneralFamily Medicine06/06/24 Lloyd Sherwood MD [address] [place] [address] ReferringOphthalmology12/14/24Team MemberRelationshipSpecialtyStart End [facility] Yoan Ivey MD [address] [place] [address] PCP - GeneralFamily Medicine06/06/24 Lloyd Sherwood MD [address] [place] [address] ReferringOphthalmology12/14/24Team MemberRelationshipSpecialtyStart End [facility] Yoan Ivey MD [address] [place] [address] PCP - GeneralFamily Medicine06/06/24 Lloyd Sherwood MD [address] [place] [address] ReferringOphthalmology12/14/24Team MemberRelationshipSpecialtyStart DateEnd [facility] Yoan Ivey MD [address] [place] [address] PCP - GeneralFamily Medicine06/06/24 Lloyd Sherwood MD [address] [place] [address] ReferringOphthalmology12/14/24Team MemberRelationshipSpecialtyStart DateEnd Date Yoan Ivey MD [address] [place] [address] PCP - GeneralFamily Medicine06/06/24 Lloyd Sherwood MD [address] [place] [address] ReferringOphthalmology12/14/24Team MemberRelationshipSpecialtyStart DateEnd Yoan Ivey MD [address] [place] [address] PCP - GeneralFamily Medicine06/06/24 Lloyd Shrewood MD [address] [place] [address] ReferringOphthalmology12/14/24Team MemberRelationshipSpecialtyStart End Date Yoan Ivey MD [address] [place] [address] PCP - GeneralFamily Medicine06/06/24 Lloyd Sherwood MD [address] [place] [address] ReferringOphthalmology12/14/24Team MemberRelationshipSpecialtyStart End Yoan Ivey MD [address] [place] [address] PCP - GeneralFamily Medicine06/06/24 Lloyd Sherwood MD [address] [place] [address] ReferringOphthalmology12/14/24Team MemberRelationshipSpecialtyStart End Yoan Ivey MD [address] [place] [address] PCP - GeneralFamily Medicine06/06/24 Lloyd Sherwood MD [address] [place] [address] ReferringOphthalmology12/14/24Team MemberRelationshipSpecialtyStart End Date Lloyd Sherwood MD [address] [place] [address] PCP - GeneralOphthalmology01/11/25 Team Status: Inactive Member Role Status Dates Yoan Ivey MD Primary Care Provider Active Start: February 21, 2025 End: February 21, 2025Micjosh Cortés MDEmergency ProviderActiveStart: February 21, 2025 End: February 21, 2025Team MemberRelationshipSpecialtyStart DateEnd Lloyd Tyler MD [address] [place] [address] PCP - GeneralOphthalmology01/11/25 Goals (unrecognized section and content) Goals may be documented in a n alternate section Source Comments (unrecognize d section and content) In the event this informatio n is protected by the Federal Confidentiality of Alcohol and Drug Abuse Patient Records regulations: The Federal rules restrict any use of the information to criminally investigate or prosecute any alcohol or drug abuse patient.[facility] Hospital[facility] the event this information is protected by the Federal Confidentiality of Alcohol and Drug Abuse Patient Records regulations: The Federal rules restrict any use of the information to criminally investigate or prosecute any alcohol or drug abuse patient.[facility] HospitalIn the event this information is protected by the Federal Confidentiality of Alcohol and Drug Abuse Patient Records regulations: The Federal rules restrict any use of the information to criminally investigate or prosecute any alcohol or drug abuse patient.[facility] HospitalIn the event this information is protected by the Federal Confidentiality of Alcohol and Drug Abuse Patient Records regulations: The Federal rules restrict any use of the information to criminally investigate or prosecute any alcohol or drug abuse patient.[facility] HospitalIn the event this information is protected by the Federal Confidentiality of Alcohol and Drug Abuse Patient Records regulations: The Federal rules restrict any use of the information to criminally investigate or prosecute any alcohol or drug abuse patient.[facility]In the event this information is protected by the Federal Confidentiality of Alcohol and Drug Abuse Patient Records regulations: The Federal rules restrict any use of the information to criminally investigate or prosecute any alcohol or drug abuse patient.[facility] HospitalIn the event this information is protected by the Federal Confidentiality of Alcohol and Drug Abuse Patient Records regulations: The Federal rules restrict any use of the information to criminally investigate or prosecute any alcohol or drug abuse patient.[facility]In the event this information is protected by the Federal Confidentiality of Alcohol and Drug Abuse Patient Records regulations: The Federal rules restrict any use of the information to criminally investigate or prosecute any alcohol or drug abuse patient.[facility] HospitalIn the event this information is protected by the Federal Confidentiality of Alcohol and Drug Abuse Patient Records regulations: The Federal rules restrict any use of the information to criminally investigate or prosecute any alcohol or drug abuse patient.[facility] HospitalIn the event this information is protected by the Federal Confidentiality of Alcohol and Drug Abuse Patient Records regulations: The Federal rules restrict any use of the information to criminally investigate or prosecute any alcohol or drug abuse patient.[facility] HospitalIn the event this information is protected by the Federal Confidentiality of Alcohol and Drug Abuse Patient Records regulations: The Federal rules restrict any use of the information to criminally investigate or prosecute any alcohol or drug abuse patient.[facility] HospitalIn the event this information is protected by the Federal Confidentiality of Alcohol and Drug Abuse Patient Records regulations: The Federal rules restrict any use of the information to criminally investigate or prosecute any alcohol or drug abuse patient.[facility] HospitalIn the event this information is protected by the Federal Confidentiality of Alcohol and Drug Abuse Patient Records regulations: The Federal rules restrict any use of the information to criminally investigate or prosecute any alcohol or drug abuse patient.[facility] HospitalIn the event this information is protected by the Federal Confidentiality of Alcohol and Drug Abuse Patient Records regulations: The Federal rules restrict any use of the information to criminally investigate or prosecute any alcohol or drug abuse patient.[facility] HospitalIn the event this information is protected by the Federal Confidentiality of Alcohol and Drug Abuse Patient Records regulations: The Federal rules restrict any use of the information to criminally investigate or prosecute any alcohol or drug abuse patient.[facility] HospitalIn the event this information is protected by the Federal Confidentiality of Alcohol and Drug Abuse Patient Records regulations: The Federal rules restrict any use of the information to criminally investigate or prosecute any alcohol or drug abuse patient.[facility] HospitalIn the event this information is protected by the Federal Confidentiality of Alcohol and Drug Abuse Patient Records regulations: The Federal rules restrict any use of the information to criminally investigate or prosecute any alcohol or drug abuse patient.[facility] HospitalIn the event this information is protected by the Federal Confidentiality of Alcohol and Drug Abuse Patient Records regulations: The Federal rules restrict any use of the information to criminally investigate or prosecute any alcohol or drug abuse patient.[facility]In the event this information is protected by the Federal Confidentiality of Alcohol and Drug Abuse Patient Records regulations: The Federal rules restrict any use of the information to criminally investigate or prosecute any alcohol or drug abuse patient.[facility]In the event this information is protected by the Federal Confidentiality of Alcohol and Drug Abuse Patient Records regulations: The Federal rules restrict any use of the information to criminally investigate or prosecute any alcohol or drug abuse patient.[facility]In the event this information is protected by the Federal Confidentiality of Alcohol and Drug Abuse Patient Records regulations: The Federal rules restrict any use of the information to criminally investigate or prosecute any alcohol or drug abuse patient.[facility] HospitalIn the event this information is protected by the Federal Confidentiality of Alcohol and Drug Abuse Patient Records regulations: The Federal rules restrict any use of the information to criminally investigate or prosecute any alcohol or drug abuse patient.[facility] HospitalIn the event this information is protected by the Federal Confidentiality of Alcohol and Drug Abuse Patient Records regulations: The Federal rules restrict any use of the information to criminally investigate or prosecute any alcohol or drug abuse patient.[facility] HospitalIn the event this information is protected by the Federal Confidentiality of Alcohol and Drug Abuse Patient Records regulations: The Federal rules restrict any use of the information to criminally investigate or prosecute any alcohol or drug abuse patient.[facility] HospitalIn the event this information is protected by the Federal Confidentiality of Alcohol and Drug Abuse Patient Records regulations: The Federal rules restrict any use of the information to criminally investigate or prosecute any alcohol or drug abuse patient.[facility]In the event this information is protected by the Federal Confidentiality of Alcohol and Drug Abuse Patient Records regulations: The Federal rules restrict any use of the information to criminally investigate or prosecute any alcohol or drug abuse patient.[facility]In the event this information is protected by the Federal Confidentiality of Alcohol and Drug Abuse Patient Records regulations: The Federal rules restrict any use of the information to criminally investigate or prosecute any alcohol or drug abuse patient.[facility]In the event this information is protected by the Federal Confidentiality of Alcohol and Drug Abuse Patient Records regulations: The Federal rules restrict any use of the information to criminally investigate or prosecute any alcohol or drug abuse patient.[facility]In the event this information is protected by the Federal Confidentiality of Alcohol and Drug Abuse Patient Records regulations: The Federal rules restrict any use of the information to criminally investigate or prosecute any alcohol or drug abuse patient.[facility]In the event this information is protected by the Federal Confidentiality of Alcohol and Drug Abuse Patient Records regulations: The Federal rules restrict any use of the information to criminally investigate or prosecute any alcohol or drug abuse patient.[facility]In the event this information is protected by the Federal Confidentiality of Alcohol and Drug Abuse Patient Records regulations: The Federal rules restrict any use of the information to criminally investigate or prosecute any alcohol or drug abuse patient.[facility] HospitalIn the event this information is protected by the Federal Confidentiality of Alcohol and Drug Abuse Patient Records regulations: The Federal rules restrict any use of the information to criminally investigate or prosecute any alcohol or drug abuse patient.[facility] HospitalIn the event this information is protected by the Federal Confidentiality of Alcohol and Drug Abuse Patient Records regulations: The Federal rules restrict any use of the information to criminally investigate or prosecute any alcohol or drug abuse patient.[facility]In the event this information is protected by the Federal Confidentiality of Alcohol and Drug Abuse Patient Records regulations: The Federal rules restrict any use of the information to criminally investigate or prosecute any alcohol or drug abuse patient.[facility]In the event this information is protected by the Federal Confidentiality of Alcohol and Drug Abuse Patient Records regulations: The Federal rules restrict any use of the information to criminally investigate or prosecute any alcohol or drug abuse patient.[facility]In the event this information is protected by the Federal Confidentiality of Alcohol and Drug Abuse Patient Records regulations: The Federal rules restrict any use of the information to criminally investigate or prosecute any alcohol or drug abuse patient.[facility]In the event this information is protected by the Federal Confidentiality of Alcohol and Drug Abuse Patient Records regulations: The Federal rules restrict any use of the information to criminally investigate or prosecute any alcohol or drug abuse patient.[facility] HospitalIn the event this information is protected by the Federal Confidentiality of Alcohol and Drug Abuse Patient Records regulations: The Federal rules restrict any use of the information to criminally investigate or prosecute any alcohol or drug abuse patient.[facility] HospitalIn the event this information is protected by the Federal Confidentiality of Alcohol and Drug Abuse Patient Records regulations: The Federal rules restrict any use of the information to criminally investigate or prosecute any alcohol or drug abuse patient.[facility] HospitalIn the event this information is protected by the Federal Confidentiality of Alcohol and Drug Abuse Patient Records regulations: The Federal rules restrict any use of the information to criminally investigate or prosecute any alcohol or drug abuse patient.[facility]In the event this information is protected by the Federal Confidentiality of Alcohol and Drug Abuse Patient Records regulations: The Federal rules restrict any use of the information to criminally investigate or prosecute any alcohol or drug abuse patient.[facility] HospitalIn the event this information is protected by the Federal Confidentiality of Alcohol and Drug Abuse Patient Records regulations: The Federal rules restrict any use of the information to criminally investigate or prosecute any alcohol or drug abuse patient.[facility]In the event this information is protected by the Federal Confidentiality of Alcohol and Drug Abuse Patient Records regulations: The Federal rules restrict any use of the information to criminally investigate or prosecute any alcohol or drug abuse patient.[facility]In the event this information is protected by the Federal Confidentiality of Alcohol and Drug Abuse Patient Records regulations: The Federal rules restrict any use of the information to criminally investigate or prosecute any alcohol or drug abuse patient.[facility] HospitalIn the event this information is protected by the Federal Confidentiality of Alcohol and Drug Abuse Patient Records regulations: The Federal rules restrict any use of the information to criminally investigate or prosecute any alcohol or drug abuse patient.[facility]In the event this information is protected by the Federal Confidentiality of Alcohol and Drug Abuse Patient Records regulations: The Federal rules restrict any use of the information to criminally investigate or prosecute any alcohol or drug abuse patient.[facility]In the event this information is protected by the Federal Confidentiality of Alcohol and Drug Abuse Patient Records regulations: The Federal rules restrict any use of the information to criminally investigate or prosecute any alcohol or drug abuse patient.[facility]In the event this information is protected by the Federal Confidentiality of Alcohol and Drug Abuse Patient Records regulations: The Federal rules restrict any use of the information to criminally investigate or prosecute any alcohol or drug abuse patient.[facility]In the event this information is protected by the Federal Confidentiality of Alcohol and Drug Abuse Patient Records regulations: The Federal rules restrict any use of the information to criminally investigate or prosecute any alcohol or drug abuse patient.[facility]In the event this information is protected by the Federal Confidentiality of Alcohol and Drug Abuse Patient Records regulations: The Federal rules restrict any use of the information to criminally investigate or prosecute any alcohol or drug abuse patient.[facility]In the event this information is protected by the Federal Confidentiality of Alcohol and Drug Abuse Patient Records regulations: The Federal rules restrict any use of the information to criminally investigate or prosecute any alcohol or drug abuse patient.[facility]In the event this information is protected by the Federal Confidentiality of Alcohol and Drug Abuse Patient Records regulations: The Federal rules restrict any use of the information to criminally investigate or prosecute any alcohol or drug abuse patient.[facility]In the event this information is protected by the Federal Confidentiality of Alcohol and Drug Abuse Patient Records regulations: The Federal rules restrict any use of the information to criminally investigate or prosecute any alcohol or drug abuse patient.[facility]In the event this information is protected by the Federal Confidentiality of Alcohol and Drug Abuse Patient Records regulations: The Federal rules restrict any use of the information to criminally investigate or prosecute any alcohol or drug abuse patient.[facility]In the event this information is protected by the Federal Confidentiality of Alcohol and Drug Abuse Patient Records regulations: The Federal rules restrict any use of the information to criminally investigate or prosecute any alcohol or drug abuse patient.[facility]In the event this information is protected by the Federal Confidentiality of Alcohol and Drug Abuse Patient Records regulations: The Federal rules restrict any use of the information to criminally investigate or prosecute any alcohol or drug abuse patient.[facility]In the event this information is protected by the Federal Confidentiality of Alcohol and Drug Abuse Patient Records regulations: The Federal rules restrict any use of the information to criminally investigate or prosecute any alcohol or drug abuse patient.[facility]In the event this information is protected by the Federal Confidentiality of Alcohol and Drug Abuse Patient Records regulations: The Federal rules restrict any use of the information to criminally investigate or prosecute any alcohol or drug abuse patient.[facility]In the event this information is protected by the Federal Confidentiality of Alcohol and Drug Abuse Patient Records regulations: The Federal rules restrict any use of the information to criminally investigate or prosecute any alcohol or drug abuse patient.[facility]In the event this information is protected by the Federal Confidentiality of Alcohol and Drug Abuse Patient Records regulations: The Federal rules restrict any use of the information to criminally investigate or prosecute any alcohol or drug abuse patient.[facility]In the event this information is protected by the Federal Confidentiality of Alcohol and Drug Abuse Patient Records regulations: The Federal rules restrict any use of the information to criminally investigate or prosecute any alcohol or drug abuse patient.[facility]In the event this information is protected by the Federal Confidentiality of Alcohol and Drug Abuse Patient Records regulations: The Federal rules restrict any use of the information to criminally investigate or prosecute any alcohol or drug abuse patient.[facility]In the event this information is protected by the Federal Confidentiality of Alcohol and Drug Abuse Patient Records regulations: The Federal rules restrict any use of the information to criminally investigate or prosecute any alcohol or drug abuse patient.[facility]In the event this information is protected by the Federal Confidentiality of Alcohol and Drug Abuse Patient Records regulations: The Federal rules restrict any use of the information to criminally investigate or prosecute any alcohol or drug abuse patient.[facility]In the event this information is protected by the Federal Confidentiality of Alcohol and Drug Abuse Patient Records regulations: The Federal rules restrict any use of the information to criminally investigate or prosecute any alcohol or drug abuse patient.[facility]In the event this information is protected by the Federal Confidentiality of Alcohol and Drug Abuse Patient Records regulations: The Federal rules restrict any use of the information to criminally investigate or prosecute any alcohol or drug abuse patient.[facility]In the event this information is protected by the Federal Confidentiality of Alcohol and Drug Abuse Patient Records regulations: The Federal rules restrict any use of the information to criminally investigate or prosecute any alcohol or drug abuse patient.[facility]In the event this information is protected by the Federal Confidentiality of Alcohol and Drug Abuse Patient Records regulations: The Federal rules restrict any use of the information to criminally investigate or prosecute any alcohol or drug abuse patient.[facility]In the event this information is protected by the Federal Confidentiality of Alcohol and Drug Abuse Patient Records regulations: The Federal rules restrict any use of the information to criminally investigate or prosecute any alcohol or drug abuse patient.[facility]In the event this information is protected by the Federal Confidentiality of Alcohol and Drug Abuse Patient Records regulations: The Federal rules restrict any use of the information to criminally investigate or prosecute any alcohol or drug abuse patient.[facility]In the event this information is protected by the Federal Confidentiality of Alcohol and Drug Abuse Patient Records regulations: The Federal rules restrict any use of the information to criminally investigate or prosecute any alcohol or drug abuse patient.[facility]In the event this information is protected by the Federal Confidentiality of Alcohol and Drug Abuse Patient Records regulations: The Federal rules restrict any use of the information to criminally investigate or prosecute any alcohol or drug abuse patient.[facility]In the event this information is protected by the Federal Confidentiality of Alcohol and Drug Abuse Patient Records regulations: The Federal rules restrict any use of the information to criminally investigate or prosecute any alcohol or drug abuse patient.[facility]In the event this information is protected by the Federal Confidentiality of Alcohol and Drug Abuse Patient Records regulations: The Federal rules restrict any use of the information to criminally investigate or prosecute any alcohol or drug abuse patient.[facility]In the event this information is protected by the Federal Confidentiality of Alcohol and Drug Abuse Patient Records regulations: The Federal rules restrict any use of the information to criminally investigate or prosecute any alcohol or drug abuse patient.[facility]In the event this information is protected by the Federal Confidentiality of Alcohol and Drug Abuse Patient Records regulations: The Federal rules restrict any use of the information to criminally investigate or prosecute any alcohol or drug abuse patient.[facility]In the event this information is protected by the Federal Confidentiality of Alcohol and Drug Abuse Patient Records regulations: The Federal rules restrict any use of the information to criminally investigate or prosecute any alcohol or drug abuse patient.[facility]In the event this information is protected by the Federal Confidentiality of Alcohol and Drug Abuse Patient Records regulations: The Federal rules restrict any use of the information to criminally investigate or prosecute any alcohol or drug abuse patient.[facility]In the event this information is protected by the Federal Confidentiality of Alcohol and Drug Abuse Patient Records regulations: The Federal rules restrict any use of the information to criminally investigate or prosecute any alcohol or drug abuse patient.[facility]In the event this information is protected by the Federal Confidentiality of Alcohol and Drug Abuse Patient Records regulations: The Federal rules restrict any use of the information to criminally investigate or prosecute any alcohol or drug abuse patient.[facility]In the event this information is protected by the Federal Confidentiality of Alcohol and Drug Abuse Patient Records regulations: The Federal rules restrict any use of the information to criminally investigate or prosecute any alcohol or drug abuse patient.[facility]In the event this information is protected by the Federal Confidentiality of Alcohol and Drug Abuse Patient Records regulations: The Federal rules restrict any use of the information to criminally investigate or prosecute any alcohol or drug abuse patient.[facility]In the event this information is protected by the Federal Confidentiality of Alcohol and Drug Abuse Patient Records regulations: The Federal rules restrict any use of the information to criminally investigate or prosecute any alcohol or drug abuse patient.[facility]In the event this information is protected by the Federal Confidentiality of Alcohol and Drug Abuse Patient Records regulations: The Federal rules restrict any use of the information to criminally investigate or prosecute any alcohol or drug abuse patient.[facility]In the event this information is protected by the Federal Confidentiality of Alcohol and Drug Abuse Patient Records regulations: The Federal rules restrict any use of the information to criminally investigate or prosecute any alcohol or drug abuse patient.[facility]In the event this information is protected by the Federal Confidentiality of Alcohol and Drug Abuse Patient Records regulations: The Federal rules restrict any use of the information to criminally investigate or prosecute any alcohol or drug abuse patient.[facility]In the event this information is protected by the Federal Confidentiality of Alcohol and Drug Abuse Patient Records regulations: The Federal rules restrict any use of the information to criminally investigate or prosecute any alcohol or drug abuse patient.[facility] Scheduled Active and Recently Administ ered Medications (unrecognized section and content) Medication Order/// iohexol (OMNIPAQUE) 350 MG/ML injection (COMPLETED) 75 mL, Intravenous Push, Once at Radiology exam, 1 dose, Starting on Antonette 07/09/23 at 1822, Until u07/09/23 at 181, Imaging Protocol Orders * 1817 (Bolus given - Provider: Cassandra Carrillo) Medication Order/// acetaminophen (TYLENOL EXTRA STR) tablet 1,000 mg (COMPLETED) 1,000 mg, Oral, ONCE PRN, 1 dose, Starting on Antonette 01/26/25 at 1401, Until Antonette 01/26/25 at 1433, Pain * 1433 (Given - Provider: Eli Solares RN) FOR RECORDS PERTAINING TO PATIENTS WHO ARE [...] BE BASED ON THE PRIMARY CLINICAL RECORDS. [facility]. provides no warranty or guarantee of the accuracy or completeness of information in this document.
== END 2025-03-03 12:45 | disposition home or self-care (01) ==
LOC: US 12:44
PROVIDERS: PCP Family Medicine; Visit Provider Family Medicine
DX: K76.0 Fatty (change of) liver, not elsewhere classified (principal); H70.90 Unspecified mastoiditis, unspecified ear
CPT/HCPCS: 36415; 76700; 80053; 85025